=== PATIENT | female | born 1955 | race Caucasian/White ===

== ENCOUNTER → 2017-08-28 13:00 | Outpatient (CLI) | payer MEDICARE, MEDICAID, SELFPAY ==
--- NOTE | 2017-08-28 | LES_PTH ---
PATIENT: DEZ GRANDE LOC: [facility] U#:[id number] AGE/SX: 70/F ROOM: RE08/28/[address]: Dr. Alton Mallory, : 1955 BED: DIS: SPEC #: [id number] RECD: 08/28/17 15:54 STATUS: REI ELTON #: [id number] BANDAR: 08/28/17 00:[address]: Alton Mallory DEPT: SURGICAL PATHOLOGY RECD BY: Gerard Schulz Tissues: Thigh, NOS Procedures: Surgery Specimen Level IV HEADER OPERATION: 5 mm punch, nevus right thigh PRE-OP DIAGNOSIS: growing 4 mm scaly nevus right thigh, history melanoma, rule out basal cell TISSUE SUBMITTED: 5 mm punch, nevus right thigh MICROSCOPIC DIAGNOSIS Skin lesion, right thigh, punch biopsy: Verrucous keratosis. AM:bakari 09/01/17 COMMENT Case has been reviewed in consultation with Dr. Ramirez who concurs with the above diagnosis. IDC:[email or web address] MICROSCOPIC DESCRIPTION Slides are reviewed. GROSS DESCRIPTION Received is one container labeled with the patient's name and not further designated. The specimen consists of a round piece of braswell-white skin measuring 0.5 x 0.5 x 0.4 cm. The entire specimen is submitted in one cassette. / PABLO:bakari 08/29/17 TC:5 [facility]: [id number]
--- OUTSIDE RECORDS SUMMARY | 2017-10-24 11:45 | XMS RPT_ITS | Clinical Summary ---
:1955 Author Organization Formerly [facility], [facility] Address [address] [place] [address] Phone Care Team Providers Name Role Phone Vanesa [place] CNP S Unavailable Conditions or Problems Problem Name Problem Onset Status Entry Provider Comment Standard Annotate Code Date Date Description Obesity 130015446 Active Vanesa Obesity (SNOMED 09/17 09/[address]) LINING STUFFER COPD, acute 410514821 Active Kaia Ferreira Acute exacerbation (SNOMED Maury COLVIN exacerbation of CT) chronic obstructive airways disease Abdominal 552617808 Active Alton A Abdominal bloating (SNOMED 01/11 01/[address] [place] [address]) DO Iron 36669121 Active Alton A Iron deficiency deficiency (SNOMED 01/11 01/[address] [place] [address]) DO Peripheral 948453966 Active Alton A Peripheral edema (SNOMED 01/11 01/[address] [place] [address]) DO Foot pain, 33350504 Active Alton A Foot pain left (SNOMED 12/12 12/[address] [address]) DO Constipation, 827516791 Active Alton A Chronic chronic (SNOMED 11/29 11/[address] [place] [address]) DO Leg edema, 773220297 Active Vanesa Edema of lower bilateral (SNOMED 11/12 11/[address]) LINING STUFFER COPD 02534209 Active Alton A Chronic (SNOMED 10/13 10/[address] [place] [address]) DO lung disease Bipolar 04421648 Active Alton A Bipolar disorder (SNOMED 10/13 10/[address] [place] [address]) DO Patent foramen 892640352 Active Alton A Patent foramen ovale (SNOMED 10/13 10/[address] [facility] ovale CT) DO Hypertension 33597105 Active Alton A Hypertensive (SNOMED 10/13 10/[address] [place] [address]) DO Fibromyalgia 50662859 Active Alton A Fibromyositis (SNOMED 10/13 10/[address] [facility] [address]) DO Cervical 660035397 Active Alton A Cervical spondylosis (SNOMED 10/13 10/15 [facility] spondylosis without CT) DO without myelopathy myelopathy Degenerative 36774805 Active Alton A Degeneration of disc disease, (SNOMED 10/13 10/15 [facility] lumbar lumbar spine CT) DO intervertebral disc Chronic pain 825711792 Active Alton A Chronic pain syndrome (SNOMED 10/13 10/15 [facility] syndrome CT) DO JORGE 39940016 Active Vanesa Obstructive (SNOMED [place] sleep apnea CT) LINING STUFFER syndrome Tobacco abuse 01046847 Active Vanesa Tobacco (SNOMED S [place] dependence CT) LINING STUFFER syndrome Dyspnea 161087605 Active Vanesa Dyspnea (SNOMED S [place] CT) LINING STUFFER Medications Medication Instructions Start Stop Generic Name [facility] Provider Date Date BREO ELLIPTA 200-25 1 puff daily FLUTICASONE 54081151527 Vanesa MCG/INH AEPB 09/17 FUROATE-VILANTEROL S [place] LINING STUFFER INCRUSE ELLIPTA 62.5 1 puff dialy UMECLIDINIUM 44596354986 Vanesa MCG/INH AEPB 09/17 BROMIDE S [place] LINING STUFFER FERROUS SULFATE 325 One tablet by FERROUS SULFATE 82086971650 Vanesa (65 Fe) MG TABS mouth daily 08/23 S Alysia LINING STUFFER SYMBICORT 80-4.5 2 puffs bid BUDESONIDE-FORMOTER 49558464613 Vanesa MCG/ACT AERO OL FUMARATE S Alysia LINING STUFFER PROAIR HFA 108 (90 2 puffs q 4 ALBUTEROL SULFATE 63387257956 Vanesa Base) MCG/ACT AERS hrs prn Elizabeth [place] LINING STUFFER PREDNISONE 10 MG Take 4 tabs PREDNISONE 48829602453 Kaia E 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 AZITHROMYCIN 250 MG 2 tablets by AZITHROMYCIN 07652940410 Kaia E TABS mouth today [place] [employer] SALTER and then 1 tablet daily for the next 4 days NEURONTIN 400 MG One tablet by GABAPENTIN 40591728143 Alton A CAPS mouth 4 times [place] daily DO POTASSIUM CHLORIDE One tablet by POTASSIUM CHLORIDE 19989500454 Alton A OLIVIER ER 20 MEQ mouth daily 11/12 OLIVIER CR [place] CR-TABS DO FUROSEMIDE 20 MG One tablet by FUROSEMIDE 24319901348 Alton A TABS mouth daily 11/12 for swelling DO PREDNISONE 20 MG 2 tabs x 3 PREDNISONE 25545768980 Alton A TABS days, 1 tab x 12/12 12/21 [place] 3 days, 1/2 DO tab x 4 days DOCUSATE SODIUM 100 One capsule DOCUSATE SODIUM 93009857161 Alton A MG CAPS by mouth 11/29 [place] twice daily DO as needed for constipation PREDNISONE 10 MG Take 4 tabs PREDNISONE 16234843835 Vanesa TABS by mouth for 11/12 11/24 [place] 3 days, then LINING STUFFER 3 tabs by mouth for 3 days, then 2 tabs by mourth for 3 days, then 1 tab by mouth for 3 days. FUROSEMIDE 20 MG 1 tab daily FUROSEMIDE 70871935391 Vanesa TABS for 3 days 11/12 [place] LINING STUFFER AZITHROMYCIN 250 MG 2 tablets by AZITHROMYCIN 71303980336 Vanesa TABS mouth today 11/12 [place] and then 1 LINING STUFFER tablet daily for the next 4 days CYMBALTA 60 MG CPEP One tablet by DULOXETINE HCL 85992110950 Alton A mouth daily [place] DO VOLTAREN 1 % GEL 2 gr to DICLOFENAC SODIUM 62545924022 Alton A affected area three times a DO day MIRTAZAPINE 15 MG 2 tablet by MIRTAZAPINE 58582876577 Alton A TBDP mouth daily and 1 po at DO bedtime HYDROXYZINE HCL 25 One tablet by HYDROXYZINE HCL 02938256541 Alton A MG TABS mouth daily 11/09 for anxiety DO ONDANSETRON HCL 4 MG One tablet by ONDANSETRON HCL 86688314565 Alton A TABS mouth four 11/09 [facility] times daily DO as needed for nausea TRIXAICIN 0.025 % Apply to CAPSICUM OLEORESIN 82903334551 Alton A EXT CREA soles of feet 11/09 as needed for DO burning sensation daily NYSTATIN-TRIAMCINOLO apply to NYSTATIN-TRIAMCINOL 18418074030 Alton A NE OINT affected 11/09 ONE OINT [place] areas twice DO daily QUETIAPINE FUMARATE One tablet by QUETIAPINE FUMARATE 27306490467 Alton A 100 MG TABS mouth daily 11/07 DO BUPROPION HCL ER 1 tab po BUPROPION HCL 27811589924 Alton A (SR) 150 MG twice daily 10/13[place] [id number]-FVF DO HYDROCHLOROTHIAZIDE One tablet by HYDROCHLOROTHIAZIDE 06137487883 Alton A 25 MG TABS mouth daily DO QUETIAPINE FUMARATE One tablet by QUETIAPINE FUMARATE 33338761734 Alton A 50 MG TABS mouth daily 10/13 for bipolar DO disorder [facility] 325 (65 Fe) 1 tab daily FERROUS SULFATE 97934874068 Vanesa MG TABS 08/23 Elizabeth [place] CNP AZITHROMYCIN 250 MG 2 tablets by AZITHROMYCIN 48376595718 Tracie TABS mouth today 11/12 05/30 Candy Ku and then 1 BRYOLOGIST tablet daily for the next 4 days QUETIAPINE FUMARATE One tablet by QUETIAPINE FUMARATE 36988119084 Alton A 50 MG TABS mouth daily 10/13[place] for bipolar DO disorder NYSTATIN-TRIAMCINOLO apply bid NYSTATIN-TRIAMCINOL 94349884029 Dennise Cee NE OINT ONE OINT Kanu BRYOLOGIST HYDROXYZINE HCL 25 q 6 hrs prn HYDROXYZINE HCL 18270643664 Rebeca J MG TABS [place] ZOFRAN TABS 4mg q 8 hrs ONDANSETRON HCL 13179506045 Dennise Cee prn TABS Kanu BRYOLOGIST NEURONTIN 400 MG One tablet by 2015/ GABAPENTIN 90804948532 Tracie CAPS mouth 4 times 05/30 Candy Ku daily BRYOLOGIST AZITHROMYCIN 250 MG 2 tablets by 2016/ AZITHROMYCIN 02601651089 Tracie TABS mouth today 09/17 Candy Ku and then 1 BRYOLOGIST tablet daily for the next 4 days PRILOSEC 20 MG CPDR One tablet by OMEPRAZOLE 88689930774 Dennise L mouth daily Kanu BRYOLOGIST TRIAMCINOLONE apply bid TRIAMCINOLONE 99376809960 Dennise Cee ACETONIDE 0.1 % CREA ACETONIDE Kanu BRYOLOGIST AMITRIPTYLINE HCL 25 One tablet by AMITRIPTYLINE HCL 61517101605 Dennise L MG TABS mouth daily Kanu BRYOLOGIST CYMBALTA 60 MG CPEP One tablet by DULOXETINE HCL 20647077462 Dennise Cee mouth daily Kanu BRYOLOGIST SYMBICORT 80-4.5 2 puffs bid BUDESONIDE-FORMOTER 58337820488 Dennise Cee MCG/ACT AERO OL FUMARATE Kanu BRYOLOGIST PROAIR HFA 108 (90 2 puffs q 4 ALBUTEROL SULFATE 29652044400 Dennsie Cee Base) MCG/ACT AERS hrs prn Kanu BRYOLOGIST VOLTAREN 1 % GEL apply tid DICLOFENAC SODIUM 46371251405 Dennise Bobby BRYOLOGIST HYDROCODONE-ACETAMIN q 6 hrs prn HYDROCODONE-ACETAMI 30859674715 Dennise Cee OPHEN 7.5-325 MG NOPHEN Kanu BRYOLOGIST TABS HYDROXYZINE HCL 25 q 6 hrs prn HYDROXYZINE HCL 38743216293 Dennise L MG TABS Kanu BRYOLOGIST ESTRACE 0.1 MG/GM twice weekly ESTRADIOL 31019874659 Dennise GARCIAA Kanu BRYOLOGIST SYMBICORT 80-4.5 2 puffs bid BUDESONIDE-FORMOTER 36204730670 Dennise Cee MCG/ACT AERO OL FUMARATE Kanu BRYOLOGIST NEURONTIN 300 MG One tablet by GABAPENTIN 71799944309 [facility]ennise Cee [facility] SYMBICORT 80-4.5 2 puffs bid BUDESONIDE-FORMOTER 52842644477 Rebeca Rose MCG/ACT AERO OL FUMARATE [place] SYMBICORT 80-4.5 2 puffs bid 2014/ BUDESONIDE-FORMOTER 28843120754 Tracie Ferreira MCG/ACT AERO 08/15 OL FUMARATE [place] VOLTAREN 1 % GEL apply tid DICLOFENAC SODIUM 41258841471 Rebeca Ferguson VOLTAREN 1 % GEL apply tid 2014/ DICLOFENAC SODIUM 97181205806 Tracie E 08/15 [place] AMITRIPTYLINE HCL 25 One tablet by AMITRIPTYLINE HCL 51815043109 Rebeca Rose MG TABS mouth daily [place] AMITRIPTYLINE HCL 25 One tablet by 2014/ AMITRIPTYLINE HCL 21735702098 Tracie E MG TABS mouth daily 08/15 [place] MIRTAZAPINE 15 MG 2 tablet by MIRTAZAPINE 03078608348 Tracie E TBDP mouth daily [place] HYDROCODONE-ACETAMIN q 6 hrs prn HYDROCODONE-ACETAMI 77605578702 Rebeca Rose OPHEN 7.5-325 MG NOPHEN [place] TABS HYDROCODONE-ACETAMIN q 6 hrs prn 2015/ HYDROCODONE-ACETAMI 78540760414 Alton A OPHEN 7.5-325 MG 10/13 NOPHEN [place] TABS DO LISINOPRIL 10 MG One tablet by LISINOPRIL 46197973481 Tracie E TABS mouth daily [place] LISINOPRIL 10 MG One tablet by 2015/ LISINOPRIL 14411452073 Alton A TABS mouth daily 10/13 [place] DO KLONOPIN 1 MG TABS One tablet by CLONAZEPAM 76532314644 Tracie E mouth daily [place] ESTRACE 0.1 MG/GM twice weekly ESTRADIOL 78576655068 Rebeca Rose CREA [place] ONE-A-DAY JENNIFER-DOO 2 tablet by PEDIATRIC 17668279441 Tracie E GUMMIES CHEW mouth daily [id number] [place] ASPIR-81 81 MG TBEC One tablet by ASPIRIN 07326244868 Tracie E mouth daily [place] LYRICA 75 MG CAPS One tablet by PREGABALIN 41255097992 Tracie mouth three 0/13 Candy Ku times daily BRYOLOGIST Medications Administered No information available. Allergies, Adverse Reactions, Alerts Allergy Name Reaction Start Date Severity Status Provider Description CIPRO Rash Mild Active Tracie Candy Ku BRYOLOGIST CODEINE Rash Mild Active Tracie Candy SULFATE Ku BRYOLOGIST CIPRO Rash Severe No Longer Alton A Active [place] DO CODEINE Rash Critical No Longer Alton A SULFATE Active [place] DO Results Date Name Value Unit Range Flag Description Lab Report: Iron+Iron Binding Capacity IRON SATUR % 11.0 % 15.0-55.0 L iron saturation percent, serum IRON 38 ug/dL 50-170 L iron, serum TIBC 347 ug/dL 250-450 iron binding capacity, total Office Visit: COPD & JORGE SMOK ADVICE yes Smoking cessation education (procedure) Lab Report: BNP,B-Type NATRIURETIC PEPTIDE BNP PG/ML 35.3 pg/mL 0-100 B-type natriuretic peptide Lab Report: Basic Metabolic Profile (BMP) ANION GAP 6 5-15 anion gap, serum CO2 31.0 mmol/L 21.0-32.0 carbon dioxide, venous blood CHLORIDE 106 mmol/L 98-107 chloride, serum POTASSIUM 4.1 mmol/L 3.5-5.1 potassium, serum SODIUM 143 mmol/L 136-145 sodium, serum CALCIUM 8.6 mg/dL 8.5-10.1 calcium, serum BUN/CREAT 11.4 RATIO 10-20 urea nitrogen/creatin ine ratio, serum GFRAA 62 mL/min >60 Glomerular Filtration rate GFR EST 52 mL/min >60 L estimated glomerular filtration rate CREATININE 1.14 mg/dL 0.55-1.20 creatinine, serum BUN 13 mg/dL 7-18 urea nitrogen, blood GLUCOSE SER 105 mg/dL 70-110 blood glucose Office Visit: COPD MEDS REVIEW Done Documentation of current medications (procedure) ORALTOBACUSE Current Tobacco smoking status NHIS SMOK STATUS Former smoker Tobacco use [facility] Rx Refill: eRx Request for INCRUSE ELLIPTA 62.5 MCG/INH INH AEPB [id number]`INCRUSE ELLIPTA B e- scripts 62.5 MCG/INH INH AEPB```1 Inhaler``1 puff messenger dialy```0`09/17/2016`No date sent`[facility] [place] [facility] request [place]*`[id number]`INCRUSE ELLIPTA 62.5 MCG BLST W/DEV Quantity: 30 Blister Instructions: INHALE 1 (ONE) puff BY MOUTH EVERY DAY Plan of Care Type Date Detail Appointment 08:00 AM Myles Self, [address], [address], [place], [address] Pending order BWA Pending order Follow Up Appt 3 months Pending order Pulmonary Function Test - complete Pending order *CBC with Differential Pending order *NIYAH Pending order *CELIAC Celiac Disease AB [id number] Pending order *CMP Complete Metabolic Panel Pending order *CRP - C-Reative Protein Pending order *Ferritin Pending order *Lipid Profile Pending order *TSH Pending order *Sedimentation Rate (ESR) Pending order *UAC- Urinalysis, Complete w/ Micro Pending order *Brain Natriuretic Peptide BNP Pending order *BMP Pending order Echo Complete with Color Flow Pending order Follow Up Appt 3 months Pending order *IBC Iron & Total Iron Binding Capacity Pending order Pulmonary Function Test - complete Pending order Pulmonary stress testing; simple (eg, 6-minute walk) Pending order CSM Pending order Follow Up Appt 3 months Procedures Code Procedure Name Date Entry Date F/U BWA BWA FUA 3 months Follow Up Appt 3 months PFT Pulmonary Function Test - complete 04506-1 *Brain Natriuretic Peptide BNP 0667-1 *BMP [id number] Echo Complete with Color Flow FUA 3 months Follow Up Appt 3 months 84550-6 *IBC Iron & Total Iron Binding Capacity Vital Signs Date Name Value Unit Description BMI (Body Mass Index) 29.81 kg/m2 Body Mass Index [Ratio] Body Temperature 98.2 [degF] temperature E&M Body Temperature 36.8 Rashmi temperature in centigrade E&M BP Diastolic 93 mm[Hg] blood pressure, diastolic - 8462-4 BP Systolic 135 mm[Hg] blood pressure, systolic - 8480-6 BSA (Body Surface 1.75 body surface area Area) Heart Rate 67 /min pulse rate E&M - 8867-4 Height 62 [in_us] height E&M - 8302-2 Height 157.48 cm height in centimeters E&M O2 % BldC Oximetry 95 % oxygen saturation, oximetry Respiratory Rate 18 /min respiratory rate E&M - 9279-1 Weight Measured 163 [lb_av] weight E&M - 3141-9 Weight Measured 74.09 kg weight in kilograms E&M
--- OUTSIDE RECORDS SUMMARY | 2017-10-24 11:46 | XMS RPT_ITS ---
:1955 Author Organization OHIP Care Team Providers Name Role Phone MOISE GARCÍA (PT) Attending Unavailable MITUL ZACHARY C Referring Unavailable BAUMANZACHARY Attending Unavailable GOLIAS, MOISE (PT) Attending Unavailable MITUL ZACHARY C Referring Unavailable GOLIAS, MOISE (PT) Attending Unavailable MITUL ZACHARY C Referring Unavailable MOUL, MONI E Attending Unavailable GOLIAS, MOISE (PT) Attending Unavailable MITUL ZACHARY C Referring Unavailable GOLIAS, MOISE (PT) Attending Unavailable MITUL ZACHRAY C Referring Unavailable GOLIAS, MOISE (PT) Attending Unavailable MITUL ZACHARY C Referring Unavailable GOLIAS, MOISE (PT) Attending Unavailable MITUL ZACHARY C Referring Unavailable GOLIAS, MOISE (PT) Attending Unavailable MITUL ZACHARY C Referring Unavailable GOLIAS, MOISE (PT) Attending Unavailable MITUL ZACHARY C Referring Unavailable GOLIAS, MOISE (PT) Attending Unavailable MITUL, ZACHARY C Referring Unavailable ZACHARY BAUMAN C Attending Unavailable ZACHARY BAUMAN C Attending Unavailable BAUMANZACHARY C Attending Unavailable MANJEET OBRIEN Attending Unavailable MOUL, MONI E Referring Unavailable TESTRAKE, RUSTY Attending Unavailable TESTRAKE, RUSTY Referring Unavailable TESTRAKE, RUSTY Attending Unavailable TESTRAKE, RUSTY Referring Unavailable MOUL, MONI E Attending Unavailable MOUL, MONI E Referring Unavailable TESTRAKE, RUSTY Attending Unavailable TESTRAKE, RUSTY Referring Unavailable TESTRAKE, RUSTY Attending Unavailable TESTRAKE, RUSTY Referring Unavailable TESTRAKE, RUSTY Admitting Unavailable TESTRAKE, RUSTY Attending Unavailable TESTRAKE, RUSTY Referring Unavailable ZACHARY BAUMAN Admitting Unavailable ZACHARY BAUMAN Attending Unavailable YOKO PIERCE (TAX ADJUSTER) Referring Unavailable Alton Mallory Primary Care Unavailable Rebecca Perez Attending Unavailable Myles Self Attending Unavailable Alton Mallory Primary Care Unavailable ShawneeAlton moya Attending Unavailable ShawneeAlton moya Primary Care Unavailable PROBLEMS PROBLEMS DATE TYPE CONDITION / CODE ATTENDING STATUS SOURCE 10/01/2017 Active Unknown / ZACHARY BAUMAN Active [place] [facility] Unknown) [place] Repository 07/02/2017 Active Pain in right knee / NA Active [place] M25.561(ICD-10) Clinic Other [place] Repository 06/24/2017 Active Other intervertebral ZACHARY BAUMAN Active [place] disc degeneration, Clinic Other lumbar region / [place] M51.36(ICD-10) Repository 06/24/2017 Active 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 Clinic Other canal of lumbar [place] region / Repository M99.43(ICD-10) 06/24/2017 Active Radiculopathy, ZACHARY BAUMAN Active [place] lumbar region / Clinic Other M54.16(ICD-10) [place] Repository 02/04/2017 Unknown DYSPNEA, UNSPECIFIED Myles Self Active [place] / R06.00(ICD-10) [facility] Repository 02/04/2017 Unknown SYNCOPE AND COLLAPSE Rebecca Perez Active [place] / R55(ICD-10) [facility] Repository 02/04/2017 Unknown CHRONIC OBSTRUCTIVE Rebecca Perez Active [place] PULMONARY DISEASE, Community UNSPECIFIED / Hospital J44.9(ICD-10) Repository 02/04/2017 Unknown ESSENTIAL (PRIMARY) Rebecca Perez Active [place] HYPERTENSION / Community I10(ICD-10) Hospital Repository 02/04/2017 Unknown GASTRO-ESOPHAGEAL Rebecca Perez Active [facility] REFLUX DISEASE Community WITHOUT ESOPHAGITIS Hospital / K21.9(ICD-10) Repository 02/04/2017 Unknown FIBROMYALGIA / Rebecca Perez Active [place] M79.7(ICD-10) [facility] Repository 02/04/2017 Unknown ANXIETY DISORDER, Rebecca Perez Active [facility] UNSPECIFIED / Community F41.9(ICD-10) Hospital Repository 02/04/2017 Unknown MAJOR DEPRESSIVE Rebecca Perez Active [place] DISORDER, SINGLE Community EPISODE, UNSPECIFIED Hospital / F32.9(ICD-10) Repository 02/04/2017 Unknown TOBACCO USE / Rebecca Perez Active [place] Z72.0(ICD-10) Community Hospital Repository 02/04/2017 Unknown NURSING HOME (CURRENT) Rebecca Perez Active [facility] USE OF ASPIRIN / Community Z79.82(ICD-10) Hospital Repository 02/04/2017 Unknown OTHER NURSING HOME Rebecca Perez Active [facility] (CURRENT) DRUG Community THERAPY / Hospital Z79.899(ICD-10) Repository 11/13/2016 Active Lesion of plantar TESTRAKE, Active [place] nerve, right lower [facility] Main limb / [place] G57.61(ICD-10) Repository PROCEDURES PROCEDURES No Procedure Records FoundRESULTS RESULTS PROGRESS Observed: 10/22/2017 Status: COMPLETED Source: [place] 9:38 AM [facility] [place] REPOSITORY HNO ID: [id number]: Moise (Pt) RaquelSer: (none) Author Type: Physical TherapistType: Progress NotesFiled: 10/22/2017 10:17 AMNote Text: Episode Visit Count: 10Therapist That Will Oversee The Plan Of Care: Moise García PTStart of Care Date: 08/28/17Onset Date: 08/28/77Plan of Care Certification Date: 09/26/17Patient Identified by Name and Date of : YesREHABILITATION AND SPORTS THERAPYPHYSICAL THERAPY DISCONTINUANCE OF CAREPLAN OF CARE UPDATE:Assessment: Nora Dailey Adal is discontinued from Physical Therapyservices due to goal achievement and maximal benefit. and Patient/Clientdeclining further intervention.. Patient was seen for 10 visits fromStart of Care Date: 08/28/17 to 10/22/2017 and treatment included:Therapeutic exercise, Neuromuscular re-education, Patient/Family/CaregiverEducation, Body mechanics training and General conditioning. Pt has madeprogressive improvements at each re-assessment. Therex is responsible forthe improvements and she is capable of continuing with HEP independentlythat replicates the therex that was successful so far. For that reason,supervised pt is no longer necessary but she must continue with HEP andpostural correction and she understands this.Updated: 09/26/17 and 10/22/17Goals for Episode of Care: created on 08/28/17 through 10/09/17Independent in home exercises. - metPatient will decrease pain rating by 2 points to meet minimal clinicalimportant difference for numeric pain rating scale. - partially met, painis decreasedRestore pain-free lumbar ROM to WFL to allow for improved tolerance withdressing. - partially met, improvements objectively and functionallyStand / Walk without limitations, without pain/symptoms. - partially met,(pt reports improvements with standing and walking tolerance)Sleep through night without pain/symptoms. - not met, (pt denies changes)Sit without limitations, without pain/symptoms to allow for increasedsitting tolerance - partially met, improved but it depends on the dayMaintain proper sitting posture throughout session - met , increasedconfidencePatient will be able to tolerate vacuuming, carrying laundry basket,dressing and walking without increased symptoms. - partially met, ptreports improvements with carry laundry, dressing and walking.Improve Modified Oswestry Pain Questionnaire (LBP) by 6 points (12%) toindicate a Minimal Clinical Important Difference. - met (score improvedfrom 60-56-46)G CODE REPORTINGBased on clinical assessment and the score on the Oswestry AssessmentTool, the G code and corresponding severity modifiers are documentedbelow.Evaluation: 08/28/2017Current Status: Changing AND Maintaining Body Position: G8981 CL 60-79%impairedGoal Status: Changing AND Maintaining Body Position: G8982 CK 40-59%impairedProgress Report: 2017Current Status: Changing AND Maintaining Body Position: G8981 CK 40-59%impairedGoal Status: Changing AND Maintaining Body Position: G8982 CK 40-59%impairedDischarge: 10/22/2017Goal Status: Changing AND Maintaining Body Position: G8982 CK 40-59%impairedDischarge: Changing AND Maintaining Body Position: G8983 CK 40-59 % impairedPrognosis: ExcellentExcellent due to: current objective clinical presentation;positive pastresponse to therapySUBJECTIVE: . Pt reports that she still has pain with good days and baddays but that overall she is better and has been getting progressivelybetter since evaluation. She reports that the intensity and frequency ofpain is less and her tolerance for functional tasks is better.Pain Score: 5/10Pain Location: Low Back/Lumbar Spine - Right;Low Back/Lumbar Spine - LeftDescription: SharpFrequency: IntermittentPost Treatment Pain Score: No ChangePost Treatment Pain Description: (pt reported feeling generally betterbut not rated.)OBJECTIVE MEASURES WITH LEVEL OF FUNCTION:Lumbar Spine AROMLumbar Flexion: Normal;Pain during movementLumbar Extension: Normal;Pain during movementLumbar R Side-Bend: Normal;Pain during movementLumbar L Side-Bend: Normal;Pain during movementLumbar R Rotation: NormalLumbar L Rotation: NormalExcellent postural alignmentTREATMENT:Therapeutic Exercise:1: [employer] StepOne seat #9 resistance level 1 x6 minutes2: *prone lying x3 minutes3: prone on elbows x3 minutes4: *prone bilateral alt hip extension SLR 3x125: *supine LTR 2x156: *supine crunches 2x15 in very small range7: *supine bridging 2x159: *modified kneeling planks 3x30 [id number]: back extension machine 50# [id number]: paramount abdominal crunch machine 5# weight [id number]: HEP reviewed and pt instructed to continue with all previous homeexercises and she was instructed on how and when to progress strengtheningHEP. She was encouraged to continue using pain and fatigue as her guide,stopping anything that causes increased pain and coming back to this lateras able.Skilled Intervention: Patient was educated in proper exercise techniqueand purpose for exercises.Skilled judgment was provided in selection of appropriate interventions.Provided written instruction for home exercise program to facilitateproper performance and compliance.Correct performance of therapeutic exercises was facilitated with verbaland visual cuing.Billing:[facility]: Therapeutic Exercise ([id number]): 1:1 time: 45 minutes (3units: 38-52 mins)Total time: 45 minutesMoise García PT CNTHERAPY Observed: 10/22/2017 Status: COMPLETED Source: [place] 9:15 AM [facility] [place] REPOSITORY OT/PT/Speech Visit (PTWS) -------NORA GRANDE ([id number]) 1955 FDa Time Provider Department10/22/17 9:15 AM MOISE GARCÍA (PT) PTWSEncounter Number: [id number] Time Provider Department [place]10/22/2017 9:15 AM [id number]- MOISE GARCÍA (PT) PTWS [facility]Reason for [facility]: PT Discharge [752]Primary Visit Diagnosis: Chronic low back pain with sciatica, sciatica laterality unspecified, unspecified back pain laterality [M54.40, G89.29] Other Visit Diagnoses:Radiculopathy, lumbar region [M54.16] DDD (degenerative disc disease), lumbar [M51.36] Fibromyalgia [M79.7]Allergies As of Date: 10/22/2017 Noted Allergy ReactionCIPROFLOXACIN 11/04/2013 8 - GI Upset 11 - Vomiting Comments: DizzinessCODEINE 02/12/2011 4 - Hives 9 - Itching Comments: Generalized.Date Reviewed: 2017Reviewed by: Lilian Jacome Ma - Fully AssessedPrescriptions as of 10/22/2017 Sig: CLONAZEPAM 1 MG TABLET Take 1 tablet by mouth daily * ORPHENADRINE CITRATE ER 100 M* Take 1 tablet by mouth twice * PREGABALIN 150 MG CAPSULE Take 1 capsule by mouth three* BUPROPION HCL SR 150 MG TABLE* TAKE 1 TABLET BY MOUTH TWICE * LIDOCAINE 5 % TOPICAL PATCH Apply 1 Patch as directed onc* QUETIAPINE 100 MG TABLET Take 1 tablet by mouth once d* OXYCODONE- ACETAMINOPHEN 5 MG-* Take 1-2 tablets by mouth shanice* BREO ELLIPTA INHALATION Inhale as instructed once da* INCRUSE ELLIPTA INHALATION Inhale as instructed once da* TRIAMCINOLONE ACETONIDE 0.1 %* Apply 1 application to affect* NYSTATIN 100,000 UNIT/GRAM TO* apply twice daily to affected* DULOXETINE 60 MG CAPSULE,ALFRED* Take 1 capsule by mouth once * HYDROXYZINE HCL 25 MG TABLET Take 1 tablet by mouth every * CAPSAICIN 0.025 % TOPICAL CRE* Apply to soles of feet as nee* COMPOUNDED PRESCRIPTION DuaL Gabapentin 6% diclofenac* HYDROCHLOROTHIAZIDE 25 MG TAB* Take 1 tablet by mouth once d* CPAP CPAP 11 cmH2O, suitable mask,* PEDIATRIC MULTIVITAMIN GUMMY * Take 2 tablets by mouth once * ONDANSETRON HCL 4 MG TABLET Take 1 tablet by mouth every * ASPIRIN 81 MG TABLET,DELAYED * Take 81 mg by mouth once sylvia* DICLOFENAC 1 % TOPICAL GEL Apply 2 g to affected area th* ESTRADIOL 0.01% (0.1 MG/GRAM )* Use vaginally twice weekly ON*Progress Notes:Moise García PT 10/22/2017 10:17 AM SignedEpisode Visit Count: 10Therapist That Will Oversee The Plan Of Care: Moise García PTStart of Care Date: Onset Date: 08/28/77Plan of Care Certification Date: 09/26/17Patient Identified by Name and Date of : YesREHABILITATION AND SPORTS THERAPYPHYSICAL THERAPY DISCONTINUANCE OF CAREPLAN OF CARE UPDATE:Assessment: Nora [place] is discontinued from Physical Therapy services dueto goal achievement and maximal benefit. and Patient/Client declining furtherintervention.. Patient was seen for 10 visits from Start of Care Date: 08/28/17to 10/22/2017 and treatment included: Therapeutic exercise, Neuromuscularre-education, Patient/Family/Caregiver Education, Body mechanics training andGeneral conditioning. Pt has made progressive improvements at eachre- assessment. Therex is responsible for the improvements and she is capable ofcontinuing with HEP independently that replicates the therex that was successfulso far. For that reason, supervised pt is no longer necessary but she mustcontinue with HEP and postural correction and she understands this.Updated: 09/26/17 and 10/22/17Goals for Episode of Care: created on 08/28/17 through Independent in home exercises. - metPatient will decrease pain rating by 2 points to meet minimal clinical importantdifference for numeric pain rating scale. - partially met, pain is decreasedRestore pain-free lumbar ROM to WFL to allow for improved tolerance withdressing. - partially met , improvements objectively and functionallyStand / Walk without limitations, without pain/ symptoms. - partially met, (ptreports improvements with standing and walking tolerance)Sleep through night without pain/symptoms. - not met, (pt denies changes)Sit without limitations, without pain/symptoms to allow for increased sittingtolerance - partially met, improved but it depends on the dayMaintain proper sitting posture throughout session - met, increased confidencePatient will be able to tolerate vacuuming, carrying laundry basket, dressingand walking without increased symptoms. - partially met , pt reports improvementswith carry laundry, dressing and walking.Improve Modified Oswestry Pain Questionnaire (LBP) by 6 points (12%) to indicatea Minimal Clinical Important Difference. - met (score improved from 60-56-46)G CODE REPORTINGBased on clinical assessment and the score on the Oswestry Assessment Tool, theG code and corresponding severity modifiers are documented below.Evaluation : 08/28/2017Current Status: Changing AND Maintaining Body Position: G8981 CL 60-79% impairedGoal Status: Changing AND Maintaining Body Position: G8982 CK 40-59% impairedProgress Report: 2017Current Status: Changing AND Maintaining Body Position: G8981 CK 40-59% impairedGoal Status: Changing AND Maintaining Body Position: G8982 CK 40-59% impairedDischarge: 10/22/2017Goal Status: Changing AND Maintaining Body Position: G8982 CK 40-59% impairedDischarge: Changing AND Maintaining Body Position: G8983 CK 40-59% impairedPrognosis: ExcellentExcellent due to: current objective clinical presentation;positive past responseto therapySUBJECTIVE: . Pt reports that she still has pain with good days and bad daysbut that overall she is better and has been getting progressively better sinceevaluation. She reports that the intensity and frequency of pain is less andher tolerance for functional tasks is better.Pain Score: 5/10Pain Location: Low Back/Lumbar Spine - Right;Low Back/Lumbar Spine - LeftDescription: SharpFrequency: IntermittentPost Treatment Pain Score: No ChangePost Treatment Pain Description: (pt reported feeling generally better but notrated.)OBJECTIVE MEASURES WITH LEVEL OF FUNCTION:Lumbar Spine AROMLumbar Flexion: Normal;Pain during movementLumbar Extension: Normal;Pain during movementLumbar R Side-Bend: Normal;Pain during movementLumbar L Side-Bend: Normal;Pain during movementLumbar R Rotation: NormalLumbar L Rotation: NormalExcellent postural alignmentTREATMENT: Therapeutic Exercise:1: [employer] StepOne seat #9 resistance level 1 x6 minutes2: *prone lying x3 minutes3 : prone on elbows x3 minutes4: *prone bilateral alt hip extension SLR 3x125: *supine LTR 2x156: * supine crunches 2x15 in very small range7: *supine bridging 2x159: *modified kneeling planks 3x30 [id number]: back extension machine 50# [id number]: paramount abdominal crunch machine 5# weight [id number]: HEP reviewed and pt instructed to continue with all previous home exercisesand she was instructed on how and when to progress strengthening HEP. She wasencouraged to continue using pain and fatigue as her guide, stopping anythingthat causes increased pain and coming back to this later as able.Skilled Intervention: Patient was educated in proper exercise technique andpurpose for exercises.Skilled judgment was provided in selection of appropriate interventions.Provided written instruction for home exercise program to facilitate properperformance and compliance.Correct performance of therapeutic exercises was facilitated with verbal andvisual cuing.Billing:[facility] : Therapeutic Exercise ([id number]): 1:1 time: 45 minutes (3 units:38-52 mins)Total time: 45 minutesBrent Raquel PT --- PROGRESS Observed: 10/22/2017 Status: COMPLETED Source: [place] 8:27 AM [facility] [place] REPOSITORY HNO ID: [id number]: Moni Chavira: (none) Author Type: PhysicianType: Progress NotesFiled: 10/22/2017 10:20 AMNote Text:[facility] Sleep Disorders CenterFollow-up/Established patient visitReason for Visit at [facility] : Follow up On CPAP. Time Out: 8:45 Time In: 8:27For this visit , a total izyh-bv-frqf time with the patient comprised 17minutes, with at least 50 % of that time devoted to kwbv-ik-lmsk counselingand coordination of care, with especial emphasis placed on answering thepatient?s and/or family?s questions in a form that they can understandand appreciate. Medications, allergies, hx Reviewed: yesDate of last visit: december 2016 Insurance: [facility] Location: osterPsychological/Psychiatric Developments:No newMedical and Neurological Developments:COPD, Degen Disk disk disease, Stable.Insomnia: ingtermittent wakes at nightRLS: noOther: naSLEEP-WAKE SCHEDULEBedtime: 10 to 11SLEEP LATENCY: mostly ok.Wake after Sleep Onset wakes up, brbs, than back to bed.Wake time: usu around, without an alarm.On weekends, she maintains the same sleep schedule.Sleep Quality: only gets 4 hours. Then wakes for 1 hour, then drifts up,up every 2 hours. Not rested in the morning.She does not take naps.Average total sleep time (in a 24 hour period): 5-6 hour.Obstructive Sleep Apnea Issues: Most Recent Apnea- Hypopnea Index: 67 PAP Pressure Setting(s) Auto 5-20 DME Company: [facility] Mask Type: ffm Mask Issues: Had some allergties to the mask interfqace, narcisa invented a work aroudn Download Report: Na Self- Reported Compliance: All night Benefit: yesALLERGIESAllergen Reactions- Ciprofloxacin GI Upset, Vomiting Dizziness- Codeine Hives, Itching Generalized.CURRENT MEDICATIONS:orphenadrine ER (NORFLEX) 100 mg tablet Take 1 tablet by mouth twicedaily.pregabalin (LYRICA) 150 mg capsule Take 1 capsule by mouth three timesdaily for 30 days.clonazePAM (KLONOPIN) 1 mg tablet Take 1 tablet by mouth daily at bedtime.buPROPion SR (ZYBAN SR; WELLBUTRIN SR) 150 mg 12 hr tablet TAKE 1 TABLETBY MOUTH TWICE DAILYlidocaine (LIDODERM) 5 % Apply 1 Patch as directed once daily. TO AFFECTEDAREA. REMOVE AFTER 12 HOURS.QUEtiapine (SEROQUEL) 100 mg tablet Take 1 tablet by mouth once daily. DrStutzmanoxyCODONE-acetaminophen (PERCOCET) 5-325 mg tablet Take 1-2 tablets bymouth every 6 hours as needed for Pain.FLUTICASONE/VILANTEROL (BREO ELLIPTA INHALATION) Inhale as instructedonce daily.UMECLIDINIUM BROMIDE (INCRUSE ELLIPTA INHALATION) Inhale as instructedonce daily.triamcinolone acetonide (KENALOG) 0.1 % cream Apply 1 application toaffected area twice daily.nystatin (MYCOSTATIN) cream apply twice daily to affected area / skin rash.DULoxetine (CYMBALTA) 60 mg capsule Take 1 capsule by mouth once daily.hydrOXYzine HCl (ATARAX) 25 mg tablet Take 1 tablet by mouth every 6 hoursas needed.capsaicin (ZOSTRIX) 0.025 % cream Apply to soles of feet as needed forburning sensation.COMPOUNDED PRESCRIPTION DuaL Gabapentin 6% diclofenac 3% (M) cream .Apply 2-4 pumps to affected area (bilateral hips) 3-4 times per day.hydrochlorothiazide (HYDRODIURIL, ESIDRIX) 25 mg tablet Take 1 tablet bymouth once daily.CPAP CPAP 11 cmH2O, suitable mask, tubing, humidifier, filters. Lifetimesupplies. Dx: 327.23 - Obstructive sleep apneapediatric multivitamin gummy without iron (JENNIFER DOO) chew chewabletablet Take 2 tablets by mouth once daily.ondansetron (ZOFRAN) 4 mg tablet Take 1 tablet by mouth every 8 hours asneeded.aspirin, enteric coated (ASPIRIN, ENTERIC COATED) 81 mg EC tablet Take 81mg by mouth once daily.Diclofenac Sodium (VOLTAREN) 1 % gel Apply 2 g to affected area threetimes daily.estradiol ( ESTRACE) 0.01 % (0.1 mg/gram) vaginal cream Use vaginally twiceweekly ONE GRAMVital signs:BP 112/80 (BP Site: Left Arm, BP Position: Sitting, BP Cuff Size: RegularAdult) Pulse 67 Resp 16 Wt 56.6 kg (124 lb 12.8 oz) BMI 22.83kg/h5KTVLBP STATUS General appearance: normal weight, informal attire. Grooming good Orientation: Ox3 Memory: Grossly intact Kinetics: normal Eye Contact: good Demeanor interactive with just a tinge of edginess, spunk. Speech: Husky, coherent. Thought Stream logical, goal directed Thought Content about continuing to use pap and get treatment foranxiety. Mood: is ok Affect: Lopez, some flexibility Suicidal Ideation: no Homocidal Ideation: No Psychosis no Insight good Judgment goodENT : naAbdomen: overweightNeuro: Gait and station na, Strength grossly normal in all extremities.Coordination grossly intact. No tremors noted.Impression: Obstructive sleep apnea - Severe compliant and benefiting from treatmenAnxiety NOSCOPD,FibromyalgiaDepressionCase Formulation / Shirley (may include pt's hopes , fears, expectations,concerns):Pt generally doing well on current regimen. She is working through somePT for her back, but of late has been out and doing chores actively.Actions taken: Motivational Interviewing aspects taken Exploring generalsymptom structutre. OARRS Aspect: OARRS website checked andvalidated. All prescriptions have been APPROPRIATELY filled. Nosuspicious activity was identified.- 10/22/2017 by Moni Gaston, RASHEEDenewed the clonazepam.Encouraged pt to convey to Dr. Cross that It would be quite acceptableif he took over the clonazepam prescribing.Plan:Continue present regimen.Follow up yearly for JORGE issues, pt can follow with Dr. Mallory [facility] sleep meds. .Moni Gaston MD CNOV Observed: 10/22/2017 Status: COMPLETED Source: [place] 8:20 AM [facility] [place] REPOSITORY Office Visit (NEMJOSE) ---------NORA GRANDE ([id number]) 1955 FDate Time Provider Department10/22/17 8:20 AM MONI GASTON During your visit today, we recorded the following information about you: Pulse Respiration Blood pressure Weight 67/minute 16/minute 112/80 56.6 kgMoni Gaston MD 10/22/2017 10:20 AM Signed[facility] Sleep Disorders CenterFollow-up/Established patient visitReason for Visit at [facility] : Follow up On CPAP. Time Out: 8:45 Time In: 8:27For this visit, a total ulpe-ej-dzus time with the patient comprised 17minutes, with at least 50% of that time devoted to face-to- face counseling andcoordination of care, with especial emphasis placed on answering the patient ?sand/or family?s questions in a form that they can understand and appreciate. Medications, allergies, hx Reviewed: yesDate of last visit: december 2016 Insurance: [employer] Location: [place]Psychological/Psychiatric Developments:No newMedical and Neurological Developments:COPD, Degen Disk disk disease, Stable.Insomnia: ingtermittent wakes at nightRLS: noOther: naSLEEP-WAKE SCHEDULEBedtime: 10 to 11SLEEP LATENCY: mostly ok.Wake after Sleep Onset wakes up, brbs, than back to bed.Wake time: usu around, without an alarm.On weekends, she maintains the same sleep schedule.Sleep Quality: only gets 4 hours. Then wakes for 1 hour, then drifts up, upevery 2 hours. Not rested in the morning.She does not take naps.Average total sleep time (in a 24 hour period): 5-6 hour.Obstructive Sleep Apnea Issues: Most Recent Apnea-Hypopnea Index: 67 PAP Pressure Setting(s) Auto 5-20 DME Company: [facility] Mask Type: ffm Mask Issues : Had some allergties to the mask interfqace, but sheinvented a work aroudn Download Report: Na Self-Reported Compliance: All night Benefit: yesALLERGIESAllergen Reactions- Ciprofloxacin GI Upset, Vomiting Dizziness- Codeine Hives, Itching Generalized.CURRENT MEDICATIONS :orphenadrine ER (NORFLEX) 100 mg tablet Take 1 tablet by mouth twice daily.pregabalin (LYRICA) 150 mg capsule Take 1 capsule by mouth three times dailyfor 30 days.clonazePAM (KLONOPIN) 1 mg tablet Take 1 tablet by mouth daily at bedtime.buPROPion SR (ZYBAN SR; WELLBUTRIN SR) 150 mg 12 hr tablet TAKE 1 TABLET BYMOUTH TWICE DAILYlidocaine (LIDODERM) 5 % Apply 1 Patch as directed once daily. TO AFFECTEDAREA. REMOVE AFTER 12 HOURS.QUEtiapine (SEROQUEL) 100 mg tablet Take 1 tablet by mouth once daily. DrStutzmanoxyCODONE-acetaminophen (PERCOCET) 5-325 mg tablet Take 1-2 tablets by mouthevery 6 hours as needed for Pain.FLUTICASONE/VILANTEROL (BREO ELLIPTA INHALATION) Inhale as instructed oncedaily.UMECLIDINIUM BROMIDE (INCRUSE ELLIPTA INHALATION) Inhale as instructed oncedaily.triamcinolone acetonide (KENALOG) 0.1 % cream Apply 1 application to affectedarea twice daily.nystatin (MYCOSTATIN) cream apply twice daily to affected area/ skin rash.DULoxetine (CYMBALTA) 60 mg capsule Take 1 capsule by mouth once daily.hydrOXYzine HCl (ATARAX) 25 mg tablet Take 1 tablet by mouth every 6 hours asneeded.capsaicin (ZOSTRIX) 0.025 % cream Apply to soles of feet as needed for burningsensation.COMPOUNDED PRESCRIPTION DuaL Gabapentin 6% diclofenac 3% (M) cream . Apply 2-4pumps to affected area (bilateral hips) 3-4 times per day.hydrochlorothiazide ( HYDRODIURIL, ESIDRIX) 25 mg tablet Take 1 tablet by mouthonce daily.CPAP CPAP 11 cmH2O, suitable mask, tubing, humidifier, filters. Lifetimesupplies. Dx: 327.23 - Obstructive sleep apneapediatric multivitamin gummy without iron (JENNIFER DOO) chew chewable tabletTake 2 tablets by mouth once daily.ondansetron (ZOFRAN ) 4 mg tablet Take 1 tablet by mouth every 8 hours asneeded.aspirin, enteric coated (ASPIRIN, ENTERIC COATED) 81 mg EC tablet Take 81 mg bymouth once daily.Diclofenac Sodium (VOLTAREN) 1 % gel Apply 2 g to affected area three timesdaily.estradiol (ESTRACE) 0.01 % (0.1 mg/gram) vaginal cream Use vaginally twiceweekly ONE GRAMVital signs:BP 112/80 (BP Site: Left Arm, BP Position: Sitting, BP Cuff Size: RegularAdult) Pulse 67 Resp 16 Wt 56.6 kg (124 lb 12.8 oz) BMI 22.83 kg/s0XRIYRC STATUS General appearance: normal weight, informal attire. Grooming good Orientation: Ox3 Memory: Grossly intact Kinetics: normal Eye Contact: good Demeanor interactive with just a tinge of edginess, spunk. Speech : Husky, coherent. Thought Stream logical, goal directed Thought Content about continuing to use pap and get treatment for anxiety. Mood: is ok Affect: Lopez, some flexibility Suicidal Ideation: no Homocidal Ideation: No Psychosis no Insight good Judgment goodENT : naAbdomen: overweightNeuro: Gait and station na, Strength grossly normal in all extremities.Coordination grossly intact. No tremors noted.Impression:Obstructive sleep apnea - Severe compliant and benefiting from treatmenAnxiety NOSCOPD, FibromyalgiaDepressionCase Formulation / Shirley (may include pt's hopes, fears, expectations,concerns):Pt generally doing well on current regimen. She is working through some PT forher back, but of late has been out and doing chores actively.Actions taken: Motivational Interviewing aspects taken Exploring general symptomstructutre. OARRS Aspect: OARRS website checked and validated. Allprescriptions have been APPROPRIATELY filled. No suspicious activity wasidentified.- 10/22/2017 by Robert Harperwed the clonazepam.Encouraged pt to convey to Dr. Cross that It would be quite acceptable ifhe took over the clonazepam prescribing.Plan:Continue present regimen.Follow up yearly for JORGE issues, pt can follow with Dr. Mallory for psych andsleep meds. .RASHEED Harpereferring Provider: SELF [200]Allergies As of Date: 10/22/2017 Noted Allergy ReactionCIPROFLOXACIN 11/04/2013 8 - GI Upset 11 - Vomiting Comments: DizzinessCODEINE 02/12/2011 4 - Hives 9 - Itching Comments: Generalized.Date Reviewed: 2017Reviewed by: Lilian Jacome Ma - Fully AssessedReason for Visit: Established Patient [175] Refill Request [94]Primary Visit Diagnosis:Psychophysiological insomnia [F51.04] Other Visit Diagnoses:JORGE ( obstructive sleep apnea) RDI 67 CMS AHI 1.3 [G47.33] Fibromyalgia [M79.7] Chronic obstructive pulmonary disease, unspecified COPD type (HCC) [J44.9] Essential hypertension [I10] Other depression [F32.89]Order(s):clonazePAM (KLONOPIN) 1 mg tabletTake 1 tablet by mouth daily at bedtime for 90 days.Disp: 30 tabletRfl: 2Prescriptions as of 10/22/2017 Sig: CLONAZEPAM 1 MG TABLET Take 1 tablet by mouth daily * ORPHENADRINE CITRATE ER 100 M* Take 1 tablet by mouth twice * PREGABALIN 150 MG CAPSULE Take 1 capsule by mouth three* BUPROPION HCL SR 150 MG TABLE* TAKE 1 TABLET BY MOUTH TWICE * LIDOCAINE 5 % TOPICAL PATCH Apply 1 Patch as directed onc* QUETIAPINE 100 MG TABLET Take 1 tablet by mouth once d* OXYCODONE-ACETAMINOPHEN 5 MG-* Take 1-2 tablets by mouth shanice* BREO ELLIPTA INHALATION Inhale as instructed once da * INCRUSE ELLIPTA INHALATION Inhale as instructed once da* TRIAMCINOLONE ACETONIDE 0.1 % * Apply 1 application to affect* NYSTATIN 100,000 UNIT/GRAM TO* apply twice daily to affected* DULOXETINE 60 MG CAPSULE,ALFRED* Take 1 capsule by mouth once * HYDROXYZINE HCL 25 MG TABLET Take 1 tablet by mouth every * CAPSAICIN 0.025 % TOPICAL CRE* Apply to soles of feet as nee* COMPOUNDED PRESCRIPTION DuaL Gabapentin 6% diclofenac* HYDROCHLOROTHIAZIDE 25 MG TAB* Take 1 tablet by mouth once d* CPAP CPAP 11 cmH2O, suitable mask,* PEDIATRIC MULTIVITAMIN GUMMY * Take 2 tablets by mouth once * ONDANSETRON HCL 4 MG TABLET Take 1 tablet by mouth every * ASPIRIN 81 MG TABLET,DELAYED * Take 81 mg by mouth once sylvia* DICLOFENAC 1 % TOPICAL GEL Apply 2 g to affected area th* ESTRADIOL 0.01% (0.1 MG/GRAM)* Use vaginally twice weekly ON*Problem List As Of Date 10/22/2017 Noted Resolved Routine general medical examination at a [facility]*INVALID FOR*12/22/2012 Priority: A Class: Chronic More... Routine gynecological examination [Z01.419] INVALID FOR*12/22/2012 Priority: B Class: Chronic Fibromyalgia [M79.7] INVALID FOR* More... 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 Encounter for screening colonoscopy [Z12.11] INVALID FOR* HTN (hypertension) [I10] INVALID FOR* More... Psychophysiological insomnia [F51.04] INVALID FOR* Depression [F32.9] INVALID FOR* JORGE (obstructive sleep apnea) RDI 67 CMS AHI *INVALID FOR* Chronic low back pain with sciatica [M54.40, G8*INVALID FOR* DDD (degenerative disc disease), lumbar [M51.36]INVALID FOR* Cervical spondylosis without myelopathy [M47.81*INVALID FOR* Cervicalgia [M54.2] INVALID FOR* Abnormal echocardiogram [R93.1] INVALID FOR* More... 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 Radiculopathy, lumbar region [M54.16] INVALID FOR* More...Prescriptions ordered this encounter Disp Refills Start End CLONAZEPAM 1 MG TABLET 30 t* 2 10/22/2017 01/20/2018 Class: Print RX Route: ORAL Sig: Take 1 tablet by mouth daily at bedtime for 90 days.Medications Discontinued During This Encounter clonazePAM (KLONOPIN) 1 mg tablet 30 t* 1 07/28/2017 10/22/2017 Class: Call Rx Route: ORAL Sig: Take 1 tablet by mouth daily at bedtime. Disc: Reason for discontinue is not on file.Disposition: Return in about 1 year (around 10/22/2018).Follow-up and Disposition History RecordedEncounter Number: [id number] Status:Closed by MD MONI GASTON on 10/22/17 PROGRESS Observed: 10/15/2017 Status: COMPLETED Source: [place] 9:38 AM [facility] [place] REPOSITORY HNO ID: [id number]: Moise (Pt) RaquelService: (none) Author Type: Physical TherapistType: Progress NotesFiled: 10/15/2017 10:18 AMNote Text:Episode Visit Count: 9Therapist That Will Oversee The Plan Of Care: Moise García PTStart of Care Date: 08/28/17Onset Date: 08/28/77Plan of Care Certification Date: 09/26/17Patient Identified by Name and Date of : YesREHABILITATION AND SPORTS THERAPYPHYSICAL THERAPY TREATMENT NOTEASSESSMENT: Nora Grande demonstrated difficulty with household floorcleaning tasks and improvements in carrying laundry basket and pain ingeneral. The patient will continue to benefit from continued skilledphysical therapy for stretching, strengthening, body mechanics instructionand pain management prn.PLAN FOR NEXT VISIT:review HEP, progress HEP to tolerance, continue supervised therex andprogress to tolerance. Continue PNE prn.SUBJECTIVE:Pt reports that overall she is feeling the same as last visit but bettercompared to evaluation. She reports that her back pain is increased todaysecondary to washing windows yesterday but that she has been trying tostay active. She feels that she has learned a lot from the PNE cards andeducation provided on chronic pain.Pain Score: 10Pain Location: Low Back/Lumbar Spine - Left;Low Back/Lumbar Spine - RightDescription: (mild but increased from washing windows yesterday)Frequency: IntermittentPost Treatment Pain Score: 10/25Post Treatment Pain Description: (decreased and better)OBJECTIVE MEASURES WITH LEVEL OF FUNCTION:Posture / AlignmentPosture: Forward head;Rounded shoulders;Thoracic kyphosis (improvedoverall)TREATMENT:Therapeutic Exercise:1: Upright bike seat #2 resistance level 3 x6 minutes2: *prone lying x3 minutes3: prone on elbows x3 minutes4: * prone bilateral alt hip extension SLR 3x125: *supine LTR 2x156: *supine crunches 2x15 in very small range7: *supine bridging 2x158: treadmill walking 2.0 mph x5 minutes with supervision and verbal cues.9: modified kneeling planks 3x30 [id number]: seated in front of Hoist machine layla overhead pulldowns with elbowsheld in extension 2 plates 3x12 emphasis on posture.11: back extension machine 50# [id number]: paramount abdominal crunch machine 5# weight [id number]: HEP reviewed and pt instructed that she should only be completing homeexercises listed that she has on her handouts.Skilled Intervention: Patient was educated in proper exercise techniqueand purpose for exercises.Skilled judgment was provided in selection of appropriate interventions.Correct performance of therapeutic exercises was facilitated with verbaland visual cuing.Billing:[facility]: Therapeutic Exercise ([id number]): 1:1 time: 50 minutes (3units: 38-52 mins)Total time: 50 minutesMoise García PT CNTHERAPY Observed: 10/15/2017 Status: COMPLETED Source: [place] 9:15 AM [facility] REPOSITORY OT/PT/Speech Visit (PTWS) -------NORA GRANDE ([id number]) 1955 FDate Time Provider Department10/15/17 9:15 AM MOISE GARCÍA (PT) PTWSEncounter Number : [id number] Time Provider Department [place]10/15/2017 9:15 AM [id number], BRENT (PT) [facility]: Physical Therapy [503]Primary Visit Diagnosis:Chronic low back pain with sciatica, sciatica laterality unspecified, unspecified back pain laterality [M54.40, G89.29] Other Visit Diagnoses: Radiculopathy, lumbar region [M54.16] DDD (degenerative disc disease), lumbar [M51.36] Fibromyalgia [M79.7]Allergies As of Date: 10/15/2017 Noted Allergy ReactionCIPROFLOXACIN 11/04/2013 8 - GI Upset 11 - Vomiting Comments: DizzinessCODEINE 02/12/2011 4 - Hives 9 - Itching Comments: Generalized.Date Reviewed: 10/01/2017Reviewed by: Lilian Jacome Ma - Fully AssessedPrescriptions as of Sig: ORPHENADRINE CITRATE ER 100 M* Take 1 tablet by mouth twice * PREGABALIN 150 MG CAPSULE Take 1 capsule by mouth three* CLONAZEPAM 1 MG TABLET Take 1 tablet by mouth daily * BUPROPION HCL SR 150 MG TABLE* TAKE 1 TABLET BY MOUTH TWICE * LIDOCAINE 5 % TOPICAL PATCH Apply 1 Patch as directed onc* QUETIAPINE 100 MG TABLET Take 1 tablet by mouth once d* OXYCODONE-ACETAMINOPHEN 5 MG-* Take 1-2 tablets by mouth shanice* BREO ELLIPTA INHALATION Inhale as instructed once da* INCRUSE ELLIPTA INHALATION Inhale as instructed once da* TRIAMCINOLONE ACETONIDE 0.1 %* Apply 1 application to affect* NYSTATIN 100, 000 UNIT/GRAM TO* apply twice daily to affected* DULOXETINE 60 MG CAPSULE,ALFRED* Take 1 capsule by mouth once * HYDROXYZINE HCL 25 MG TABLET Take 1 tablet by mouth every * CAPSAICIN 0.025 % TOPICAL CRE* Apply to soles of feet as nee* COMPOUNDED PRESCRIPTION DuaL Gabapentin 6% diclofenac* HYDROCHLOROTHIAZIDE 25 MG TAB* Take 1 tablet by mouth once d* CPAP CPAP 11 cmH2O, suitable mask,* PEDIATRIC MULTIVITAMIN GUMMY * Take 2 tablets by mouth once * ONDANSETRON HCL 4 MG TABLET Take 1 tablet by mouth every * ASPIRIN 81 MG TABLET,DELAYED * Take 81 mg by mouth once sylvia* DICLOFENAC 1 % TOPICAL GEL Apply 2 g to affected area th* ESTRADIOL 0.01% (0.1 MG/GRAM)* Use vaginally twice weekly ON*Progress Notes: Moise García, PT 10/15/2017 10:18 AM SignedEpisode Visit Count: 9Therapist That Will Oversee The Plan Of Care: Moise García PTStart of Care Date: 08/28/17Onset Date: 08/28/77Plan of Care Certification Date: 09/26/17Patient Identified by Name and Date of : YesREHABILITATION AND SPORTS THERAPYPHYSICAL THERAPY TREATMENT NOTEASSESSMENT: Nora Grande demonstrated difficulty with household floorcleaning tasks and improvements in carrying laundry basket and pain in general.The patient will continue to benefit from continued skilled physical therapy forstretching, strengthening, body mechanics instruction and pain management prn.PLAN FOR NEXT VISIT:review HEP, progress HEP to tolerance, continue supervised therex and progressto tolerance. Continue PNE prn.SUBJECTIVE:Pt reports that overall she is feeling the same as last visit but bettercompared to evaluation. She reports that her back pain is increased todaysecondary to washing windows yesterday but that she has been trying to stayactive. She feels that she has learned a lot from the PNE cards and educationprovided on chronic pain.Pain Score: 5/10Pain Location: Low Back/ Lumbar Spine - Left;Low Back/Lumbar Spine - RightDescription: (mild but increased from washing windows yesterday)Frequency: IntermittentPost Treatment Pain Score: 3/10Post Treatment Pain Description: ( decreased and better)OBJECTIVE MEASURES WITH LEVEL OF FUNCTION:Posture / AlignmentPosture: Forward head;Rounded shoulders;Thoracic kyphosis (improved overall)TREATMENT:Therapeutic Exercise:1 : Upright bike seat #2 resistance level 3 x6 minutes2: *prone lying x3 minutes3: prone on elbows x3 minutes4: *prone bilateral alt hip extension SLR 3x125: *supine LTR 2x156: *supine crunches 2x15 in very small range7: *supine bridging 2x158: treadmill walking 2.0 mph x5 minutes with supervision and verbal cues.9: modified kneeling planks 3x30 [id number]: seated in front of Hoist machine layla overhead pulldowns with elbows heldin extension 2 plates 3x12 emphasis on posture.11: back extension machine 50# [id number]: paramount abdominal crunch machine 5# weight [id number]: HEP reviewed and pt instructed that she should only be completing homeexercises listed that she has on her handouts.Skilled Intervention: Patient was educated in proper exercise technique andpurpose for exercises.Skilled judgment was provided in selection of appropriate interventions.Correct performance of therapeutic exercises was facilitated with verbal andvisual cuing.Billing:[facility]: Therapeutic Exercise ( [id number]): 1:1 time: 50 minutes (3 units:38-52 mins)Total time: 50 minutesMoise García PT --- PROGRESS Observed: 10/13/2017 Status: COMPLETED Source: [place] 3:08 PM [facility] [place] REPOSITORY HNO ID: [id number]: Moise (Pt) [place]: (none) Author Type: Physical TherapistType: Progress NotesFiled: 10/13/2017 3:35 PMNote Text:Episode Visit Count: 8Therapist That Will Oversee The Plan Of Care: BERTRAM Buttstart of Care Date: 08/28/17Onset Date: 08/28/77Plan of Care Certification Date: 09/26/17Patient Identified by Name and Date of : YesREHABILITATION AND SPORTS THERAPYPHYSICAL THERAPY TREATMENT NOTEASSESSMENT: Nora Grande demonstrated difficulty with householdcleaning chores and laundry and improvements in exercise tolerance andwalking. The patient will continue to benefit from continued skilledphysical therapy for stretching, strengthening, body mechanics instructionand PNE prn.PLAN FOR NEXT VISIT:review HEP, progress HEP to tolerance, continue supervised therex andprogress to tolerance. Continue PNE prn.SUBJECTIVE:Pt reports that overall she is feeling approximately the same. Shereports that today is a good day but that pain continues to fluctuate.She denies any negative effects following last session.Pain Score: 5/10Pain Location: Low Back/Lumbar Spine - Right;Low Back/Lumbar Spine - LeftDescription: (its there and I can feel it) Frequency: IntermittentOBJECTIVE MEASURES WITH LEVEL OF FUNCTION:Posture / AlignmentPosture: Forward head;Rounded shoulders;Thoracic kyphosis (but improvedoverall)TREATMENT:Therapeutic Exercise:1: SciFit StepOne seat #9 resistance level 1 x6 minutes2: *prone lying x3 minutes3: prone on elbows x3 minutes4: * prone bilateral alt hip extension SLR 2x125: *supine LTR 2x126: *supine crunches 2x15 in very small range7: *supine bridging 2x158: treadmill walking 1.0 mph x5 minutes with supervision and verbal cues.9: modified kneeling planks 3x20 [id number]: seated in front of Hoist machine layla overhead pulldowns with elbowsheld in extension 2 plates 2x10 emphasis on posture.11: back extension machine 40# [id number]: paramount abdominal crunch machine 5# weight [id number]: HEP reviewed and pt instructed that she should only be completing homeexercises listed that she has on her handouts.Skilled Intervention: Patient was educated in proper exercise techniqueand purpose for exercises.Skilled judgment was provided in selection of appropriate interventions.Correct performance of therapeutic exercises was facilitated with verbaland visual cuing.Billing:[facility]: Therapeutic Exercise ([id number]): 1:1 time: 45 minutes (3units: 38-52 mins)Total time: 45 minutesMoise García PT CNTHERAPY Observed: 10/13/2017 Status: COMPLETED Source: [place] 2:45 PM [facility] [place] REPOSITORY OT/PT/Speech Visit (PTWS) -------NORA GRANDE ([id number]) 1955 FDa Time Provider Department10/13/17 2:45 PM MOISE GARCÍA (PT) PTWSEncounter Number : [id number] Time Provider Department [place]10/13/2017 2:45 PM [id number], BRENT (PT) [facility]: Physical Therapy [503]Primary Visit Diagnosis:Chronic low back pain with sciatica, sciatica laterality unspecified, unspecified back pain laterality [M54.40, G89.29] Other Visit Diagnoses: Radiculopathy, lumbar region [M54.16] DDD (degenerative disc disease), lumbar [M51.36] Fibromyalgia [M79.7]Allergies As of Date: 10/13/2017 Noted Allergy ReactionCIPROFLOXACIN 11/04/2013 8 - GI Upset 11 - Vomiting Comments: DizzinessCODEINE 02/12/2011 4 - Hives 9 - Itching Comments: Generalized.Date Reviewed: 10/01/2017Reviewed by: Lilian Jacome Ma - Fully AssessedPrescriptions as of Sig: ORPHENADRINE CITRATE ER 100 M* Take 1 tablet by mouth twice * PREGABALIN 150 MG CAPSULE Take 1 capsule by mouth three* CLONAZEPAM 1 MG TABLET Take 1 tablet by mouth daily * BUPROPION HCL SR 150 MG TABLE* TAKE 1 TABLET BY MOUTH TWICE * LIDOCAINE 5 % TOPICAL PATCH Apply 1 Patch as directed onc* QUETIAPINE 100 MG TABLET Take 1 tablet by mouth once d* OXYCODONE-ACETAMINOPHEN 5 MG-* Take 1-2 tablets by mouth shanice* BREO ELLIPTA INHALATION Inhale as instructed once da* INCRUSE ELLIPTA INHALATION Inhale as instructed once da* TRIAMCINOLONE ACETONIDE 0.1 %* Apply 1 application to affect* NYSTATIN 100, 000 UNIT/GRAM TO* apply twice daily to affected* DULOXETINE 60 MG CAPSULE,ALFRED* Take 1 capsule by mouth once * HYDROXYZINE HCL 25 MG TABLET Take 1 tablet by mouth every * CAPSAICIN 0.025 % TOPICAL CRE* Apply to soles of feet as nee* COMPOUNDED PRESCRIPTION DuaL Gabapentin 6% diclofenac* HYDROCHLOROTHIAZIDE 25 MG TAB* Take 1 tablet by mouth once d* CPAP CPAP 11 cmH2O, suitable mask,* PEDIATRIC MULTIVITAMIN GUMMY * Take 2 tablets by mouth once * ONDANSETRON HCL 4 MG TABLET Take 1 tablet by mouth every * ASPIRIN 81 MG TABLET,DELAYED * Take 81 mg by mouth once sylvia* DICLOFENAC 1 % TOPICAL GEL Apply 2 g to affected area th* ESTRADIOL 0.01% (0.1 MG/GRAM)* Use vaginally twice weekly ON*Progress Notes: Moise García, PT 10/13/2017 3:35 PM SignedEpisode Visit Count: 8Therapist That Will Oversee The Plan Of Care: Moise García PTStart of Care Date: 08/28/17Onset Date: 08/28/77Plan of Care Certification Date: 09/26/17Patient Identified by Name and Date of : YesREHABILITATION AND SPORTS THERAPYPHYSICAL THERAPY TREATMENT NOTEASSESSMENT: Nora Dailey Adal demonstrated difficulty with household cleaningchores and laundry and improvements in exercise tolerance and walking. Thepatient will continue to benefit from continued skilled physical therapy forstretching, strengthening, body mechanics instruction and PNE prn.PLAN FOR NEXT VISIT:review HEP, progress HEP to tolerance, continue supervised therex and progressto tolerance. Continue PNE prn.SUBJECTIVE:Pt reports that overall she is feeling approximately the same. She reports thattoday is a good day but that pain continues to fluctuate. She denies anynegative effects following last session.Pain Score: 5 /10Pain Location: Low Back/Lumbar Spine - Right;Low Back/Lumbar Spine - LeftDescription: (its there and I can feel it)Frequency: IntermittentOBJECTIVE MEASURES WITH LEVEL OF FUNCTION:Posture / AlignmentPosture: Forward head;Rounded shoulders;Thoracic kyphosis (but improved overall) TREATMENT:Therapeutic Exercise:1: BCM SolutionsFit StepOne seat #9 resistance level 1 x6 minutes2: *prone lying x3 minutes3: prone on elbows x3 minutes4: *prone bilateral alt hip extension SLR 2x125: *supine LTR 2x126: *supine crunches 2x15 in very small range7: *supine bridging 2x158: treadmill walking 1.0 mph x5 minutes with supervision and verbal cues.9: modified kneeling planks 3x20 [id number]: seated in front of Hoist machine layla overhead pulldowns with elbows heldin extension 2 plates 2x10 emphasis on posture.11: back extension machine 40# [id number]: paramount abdominal crunch machine 5# weight [id number]: HEP reviewed and pt instructed that she should only be completing homeexercises listed that she has on her handouts.Skilled Intervention: Patient was educated in proper exercise technique andpurpose for exercises.Skilled judgment was provided in selection of appropriate interventions.Correct performance of therapeutic exercises was facilitated with verbal andvisual cuing.Billing: [facility]: Therapeutic Exercise ([id number]): 1:1 time: 45 minutes (3 units:38-52 mins)Total time: 45 minutesMoise García PT PROGRESS Observed: 10/08/2017 Status: COMPLETED Source: [place] 9:38 AM [facility] [place] REPOSITORY HNO ID: [id number]: Moise (Pt) [place]: (none) Author Type: Physical TherapistType: Progress NotesFiled: 10/08/2017 10:09 AMNote Text:Episode Visit Count: 7Therapist That Will Oversee The Plan Of Care: BERTRAM Buttstart of Care Date: 08/28/17Onset Date: 08/28/77Plan of Care Certification Date: 09/26/17Patient Identified by Name and Date of : YesREHABILITATION AND SPORTS THERAPYPHYSICAL THERAPY TREATMENT NOTEASSESSMENT: Nora Grande demonstrated difficulty with householdchores such as vacuuming and improvements in exercise tolerance. Thepatient will continue to benefit from continued skilled physical therapyfor stretching, strengthening, body mechanics instruction, posturalcorrection, pain management, exercise progression and PNE prn.PLAN FOR NEXT VISIT:review HEP, progress HEP to tolerance, continue supervised therex andprogress to tolerance. Continue PNE prn.SUBJECTIVE:Pt reports increased L hip pain today that she attributes to recentweather changes. She reports compliance with HEP 2-3x day most days. Shereports that she did not complete HEP yesterday because she was notfeeling well. Pt reports that her pain continues to fluctuate but thatoverall she is feeling better.Pain Score: 7/10Pain Location: Low Back/Lumbar Spine - Right; Low Back/Lumbar Spine -Left;Hip - LeftDescription: SharpFrequency: IntermittentPost Treatment Pain Score: 5/10Post Treatment Pain Description: (pain is better and decreased)OBJECTIVE MEASURES WITH LEVEL OF FUNCTION:Posture / AlignmentPosture: Forward head;Rounded shouldersExercise tolerance is unchanged despite her report of increased paintoday.TREATMENT:Therapeutic Exercise:1: [employer]CM [employer] StepOne seat #9 resistance level 1 x6 minutes2: *prone lying x3 minutes3: prone on elbows x3 minutes4: *prone bilateral alt hip extension SLR 2x105: *supine LTR 2x106: * supine isometric abdominal exercise via shoulder extension with 2second holds 2x107: * supine bridging 2x108: *supine crunches 2x12 in very small range9: modified kneeling planks 3x15 : seated in front of Hoist machine layla overhead pulldowns with elbowsheld in extension 2 plates 2x10 emphasis on posture.11: back extension machine 30# [id number]: paramount abdominal crunch machine 5# weight [id number]: HEP reviewed and pt instructed that she should only be completing homeexercises listed above that she has on her handouts.Skilled Intervention: Patient was educated in proper exercise techniqueand purpose for exercises.Reviewed and educated patient on additions/ changes for home exerciseprogram as above (*)Skilled judgment was provided in selection of appropriate interventions.Provided written instruction for home exercise program to facilitateproper performance and compliance.Correct performance of therapeutic exercises was facilitated with verbaland visual cuing.Billing:[facility]: Therapeutic Exercise ([id number]): 1:1 time: 45 minutes (3units: 38-52 mins)Total time: 45 minutesMoise García PT CNTHERAPY Observed: 10/08/2017 Status: COMPLETED Source: [place] 9:15 AM [facility] [place] REPOSITORY OT/PT/Speech Visit (PTWS) -------NORA GRANDE ([id number]) 1955 FDate Time Provider Department10/08/17 9:15 AM MOISE GARCÍA (PT) PTWSEncounter Number : [id number] Time Provider Department [place]10/08/2017 9:15 AM [id number], BRENT (PT) [facility] Physical Therapy [503]Primary Visit Diagnosis:Chronic low back pain with sciatica, sciatica laterality unspecified, unspecified back pain laterality [M54.40, G89.29] Other Visit Diagnoses: Radiculopathy, lumbar region [M54.16] DDD (degenerative disc disease), lumbar [M51.36] Fibromyalgia [M79.7]Allergies As of Date: 10/08/2017 Noted Allergy ReactionCIPROFLOXACIN 11/04/2013 8 - GI Upset 11 - Vomiting Comments: DizzinessCODEINE 02/12/2011 4 - Hives 9 - Itching Comments: Generalized.Date Reviewed: 10/01/2017Reviewed by: Lilian Jacome Ma - Fully AssessedPrescriptions as of Sig: ORPHENADRINE CITRATE ER 100 M* Take 1 tablet by mouth twice * PREGABALIN 150 MG CAPSULE Take 1 capsule by mouth three* CLONAZEPAM 1 MG TABLET Take 1 tablet by mouth daily * BUPROPION HCL SR 150 MG TABLE* TAKE 1 TABLET BY MOUTH TWICE * LIDOCAINE 5 % TOPICAL PATCH Apply 1 Patch as directed onc* QUETIAPINE 100 MG TABLET Take 1 tablet by mouth once d* OXYCODONE-ACETAMINOPHEN 5 MG-* Take 1-2 tablets by mouth shanice* BREO ELLIPTA INHALATION Inhale as instructed once da* INCRUSE ELLIPTA INHALATION Inhale as instructed once da* TRIAMCINOLONE ACETONIDE 0.1 %* Apply 1 application to affect* NYSTATIN 100, 000 UNIT/GRAM TO* apply twice daily to affected* DULOXETINE 60 MG CAPSULE,ALFRED* Take 1 capsule by mouth once * HYDROXYZINE HCL 25 MG TABLET Take 1 tablet by mouth every * CAPSAICIN 0.025 % TOPICAL CRE* Apply to soles of feet as nee* COMPOUNDED PRESCRIPTION DuaL Gabapentin 6% diclofenac* HYDROCHLOROTHIAZIDE 25 MG TAB* Take 1 tablet by mouth once d* CPAP CPAP 11 cmH2O, suitable mask,* PEDIATRIC MULTIVITAMIN GUMMY * Take 2 tablets by mouth once * ONDANSETRON HCL 4 MG TABLET Take 1 tablet by mouth every * ASPIRIN 81 MG TABLET,DELAYED * Take 81 mg by mouth once sylvia* DICLOFENAC 1 % TOPICAL GEL Apply 2 g to affected area th* ESTRADIOL 0.01% (0.1 MG/GRAM)* Use vaginally twice weekly ON*Progress Notes: Moise García, PT 10/08/2017 10:09 AM SignedEpisode Visit Count: 7Therapist That Will Oversee The Plan Of Care: Moise García PTStart of Care Date: 08/28/17Onset Date: 08/28/77Plan of Care Certification Date: 09/26/17Patient Identified by Name and Date of : YesREHABILITATION AND SPORTS THERAPYPHYSICAL THERAPY TREATMENT NOTEASSESSMENT: 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 The patient will continueto benefit from continued skilled physical therapy for stretching,strengthening, body mechanics instruction, postural correction, pain management,exercise progression and PNE prn.PLAN FOR NEXT VISIT:review HEP, progress HEP to tolerance, continue supervised therex and progressto tolerance. Continue PNE prn.SUBJECTIVE:Pt reports increased L hip pain today that she attributes to recent weatherchanges. She reports compliance with HEP 2-3x day most days. She reports thatshe did not complete HEP yesterday because she was not feeling well. Pt reportsthat her pain continues to fluctuate but that overall she is feeling better.Pain Score: 7/10Pain Location: Low Back/Lumbar Spine - Right; Low Back/Lumbar Spine - Left;Hip -LeftDescription: SharpFrequency: IntermittentPost Treatment Pain Score: 5/10Post Treatment Pain Description: (pain is better and decreased)OBJECTIVE MEASURES WITH LEVEL OF FUNCTION:Posture / AlignmentPosture: Forward head;Rounded shouldersExercise tolerance is unchanged despite her report of increased pain today.TREATMENT:Therapeutic Exercise:1: [employer] StepOne seat #9 resistance level 1 x6 minutes2: *prone lying x3 minutes3: prone on elbows x3 minutes4: *prone bilateral alt hip extension SLR 2x105: *supine LTR 2x106: *supine isometric abdominal exercise via shoulder extension with 2 secondholds 2x107: *supine bridging 2x108: *supine crunches 2x12 in very small range9: modified kneeling planks 3x15 [id number]: seated in front of Hoist machine layla overhead pulldowns with elbows heldin extension 2 plates 2x10 emphasis on posture.11: back extension machine 30# [id number]: paramount abdominal crunch machine 5# weight [id number]: HEP reviewed and pt instructed that she should only be completing homeexercises listed above that she has on her handouts.Skilled Intervention: Patient was educated in proper exercise technique andpurpose for exercises.Reviewed and educated patient on additions/changes for home exercise program asabove (*)Skilled judgment was provided in selection of appropriate interventions.Provided written instruction for home exercise program to facilitate properperformance and compliance.Correct performance of therapeutic exercises was facilitated with verbal andvisual cuing.Billing:[facility]: Therapeutic Exercise ([id number]): 1:1 time: 45 minutes (3 units:38-52 mins)Total time: 45 minutesMoise García PT --- PROGRESS Observed: 10/03/2017 Status: COMPLETED Source: [place] 9:24 AM [facility] [place] REPOSITORY HNO ID: [id number]: Moise (Pt) [place]: (none) Author Type: Physical TherapistType: Progress NotesFiled: 10/03/2017 10:01 AMNote Text:Episode Visit Count: 6Therapist That Will Oversee The Plan Of Care: BERTRAM Buttstart of Care Date: 08/28/17Onset Date: 08/28/77Plan of Care Certification Date: 09/26/17Patient Identified by Name and Date of : YesREHABILITATION AND SPORTS THERAPYPHYSICAL THERAPY TREATMENT NOTEASSESSMENT: Nora Grande demonstrated difficulty with vacuuming andcarrying laundry basket up and down and improvements in pain sincestarting therex just no improvements with functional tasks. The patientwill continue to benefit from continued skilled physical therapy forstretching, strengthening, body mechanics instruction, PNE prn, painmanagement and HEP progression.PLAN FOR NEXT VISIT:review HEP, progress HEP to tolerance, continue supervised therex andprogress to tolerance. Continue PNE prn.SUBJECTIVE:Pt reports that overall she is better and doesn't hurt as bad. Shereports compliance with HEP 3x day with good results. She attributes theimprovements to the exercise. She denies any increased pain from therexcompleted last session. She continues to feel that the PT is beneficial.Pain Score: 0/10Pain Location: Low Back/Lumbar Spine - Right;Low Back/Lumbar Spine - LeftDescription: (no pain currently)Frequency: IntermittentPost Treatment Pain Score: 0/10Post Treatment Pain Description: ( no change and still pain-free)OBJECTIVE MEASURES WITH LEVEL OF FUNCTION:Posture / AlignmentPosture: Forward head;Rounded shoulders;Thoracic kyphosisExcellent exercise tolerance today.TREATMENT:Therapeutic Exercise:1: [employer]CM [employer] StepOne seat #9 resistance level 1 x6 minutes2: *prone lying x3 minutes3: prone on elbows x3 minutes4: prone bilateral alt hip extension SLR 2x105: *supine LTR 2x106: *supine isometric abdominal exercise via shoulder extension with 2second holds 2x127: supine bridging 2x108 : supine crunches 2x12 in very small range9: HEP reviewed and pt instructed that she should only be completing homeexercises listed above that she has on her handouts.10: treadmill walking 1.0 mph x5 minutes with close supervision and verbalcues.11: back extension machine 20# [id number]: paramount abdominal crunch machine no weight [id number] Intervention: Patient was educated in proper exercise techniqueand purpose for exercises.Skilled judgment was provided in selection of appropriate interventions.Correct performance of therapeutic exercises was facilitated with verbaland visual cuing.Billing:[facility]: Therapeutic Exercise ([id number]): 1:1 time: 45 minutes (3units: 38-52 mins)Total time: 45 minutesBreradha García PT CNTHERAPY Observed: 10/03/2017 Status: COMPLETED Source: [place] 9:15 AM [facility] REPOS[facility]ORY OT/PT/Speech Visit (PTWS) -------NORA GRANDE ([id number]) 1955 FDate Time Provider Department10/03/17 9:15 AM MOISE GARCÍA (PT) PTWSEncounter Number : [id number] Time Provider Department [place]10/03/2017 9:15 AM [id number], BRENT (PT) [facility] Physical Therapy [503]Primary Visit Diagnosis:Chronic low back pain with sciatica, sciatica laterality unspecified, unspecified back pain laterality [M54.40, G89.29] Other Visit Diagnoses: Radiculopathy, lumbar region [M54.16] DDD (degenerative disc disease), lumbar [M51.36] Fibromyalgia [M79.7]Allergies As of Date: 10/03/2017 Noted Allergy ReactionCIPROFLOXACIN 11/04/2013 8 - GI Upset 11 - Vomiting Comments: DizzinessCODEINE 02/12/2011 4 - Hives 9 - Itching Comments: Generalized.Date Reviewed: 10/01/2017Reviewed by: Lilian Jacome Ma - Fully AssessedPrescriptions as of Sig: ORPHENADRINE CITRATE ER 100 M* Take 1 tablet by mouth twice * PREGABALIN 150 MG CAPSULE Take 1 capsule by mouth three* CLONAZEPAM 1 MG TABLET Take 1 tablet by mouth daily * BUPROPION HCL SR 150 MG TABLE* TAKE 1 TABLET BY MOUTH TWICE * LIDOCAINE 5 % TOPICAL PATCH Apply 1 Patch as directed onc* QUETIAPINE 100 MG TABLET Take 1 tablet by mouth once d* OXYCODONE-ACETAMINOPHEN 5 MG-* Take 1-2 tablets by mouth shanice* BREO ELLIPTA INHALATION Inhale as instructed once da* INCRUSE ELLIPTA INHALATION Inhale as instructed once da* TRIAMCINOLONE ACETONIDE 0.1 %* Apply 1 application to affect* NYSTATIN 100, 000 UNIT/GRAM TO* apply twice daily to affected* DULOXETINE 60 MG CAPSULE,ALFRED* Take 1 capsule by mouth once * HYDROXYZINE HCL 25 MG TABLET Take 1 tablet by mouth every * CAPSAICIN 0.025 % TOPICAL CRE* Apply to soles of feet as nee* COMPOUNDED PRESCRIPTION DuaL Gabapentin 6% diclofenac* HYDROCHLOROTHIAZIDE 25 MG TAB* Take 1 tablet by mouth once d* CPAP CPAP 11 cmH2O, suitable mask,* PEDIATRIC MULTIVITAMIN GUMMY * Take 2 tablets by mouth once * ONDANSETRON HCL 4 MG TABLET Take 1 tablet by mouth every * ASPIRIN 81 MG TABLET,DELAYED * Take 81 mg by mouth once sylvia* DICLOFENAC 1 % TOPICAL GEL Apply 2 g to affected area th* ESTRADIOL 0.01% (0.1 MG/GRAM)* Use vaginally twice weekly ON*Progress Notes: Moise García, PT 10/03/2017 10:01 AM SignedEpisode Visit Count: 6Therapist That Will Oversee The Plan Of Care: Moise García PTStart of Care Date: 08/28/17Onset Date: 08/28/77Plan of Care Certification Date: 09/26/17Patient Identified by Name and Date of : YesREHABILITATION AND SPORTS THERAPYPHYSICAL THERAPY TREATMENT NOTEASSESSMENT: Nora Dailey Adal demonstrated difficulty with vacuuming andcarrying laundry basket up and down and improvements in pain since startingtherex just no improvements with functional tasks. The patient will continue tobenefit from continued skilled physical therapy for stretching, strengthening,body mechanics instruction, PNE prn, pain management and HEP progression.PLAN FOR NEXT VISIT:review HEP, progress HEP to tolerance, continue supervised therex and progressto tolerance. Continue PNE prn.SUBJECTIVE:Pt reports that overall she is better and doesn't hurt as bad. She reportscompliance with HEP 3x day with good results. She attributes the improvementsto the exercise. She denies any increased pain from therex completed lastsession. She continues to feel that the PT is beneficial.Pain Score: 0/10Pain Location: Low Back/Lumbar Spine - Right;Low Back/Lumbar Spine - LeftDescription: (no pain currently)Frequency: IntermittentPost Treatment Pain Score: 0/10Post Treatment Pain Description: (no change and still pain-free)OBJECTIVE MEASURES WITH LEVEL OF FUNCTION:Posture / AlignmentPosture: Forward head; Rounded shoulders;Thoracic kyphosisExcellent exercise tolerance today.TREATMENT:Therapeutic Exercise:1: [employer] StepOne seat #9 resistance level 1 x6 minutes2: *prone lying x3 minutes3: prone on elbows x3 minutes4: prone bilateral alt hip extension SLR 2x105: *supine LTR 2x106: *supine isometric abdominal exercise via shoulder extension with 2 secondholds 2x127: supine bridging 2x108: supine crunches 2x12 in very small range9: HEP reviewed and pt instructed that she should only be completing homeexercises listed above that she has on her handouts.10: treadmill walking 1.0 mph x5 minutes with close supervision and verbal cues.11: back extension machine 20# [id number]: paramount abdominal crunch machine no weight [id number] Intervention: Patient was educated in proper exercise technique andpurpose for exercises.Skilled judgment was provided in selection of appropriate interventions.Correct performance of therapeutic exercises was facilitated with verbal andvisual cuing.Billing:[facility] : Therapeutic Exercise ([id number]): 1:1 time: 45 minutes (3 units:38-52 mins)Total time: 45 minutesMoise García PT --- PROGRESS Observed: 10/01/2017 Status: COMPLETED Source: [place] 10:04 AM [facility] [place] REPOSITORY HNO ID: [id number]: Moise (Pt) [place]: (none) Author Type: Physical TherapistType: Progress NotesFiled: 10/01/2017 1:04 PMNote Text:Episode Visit Count: 5Therapist That Will Oversee The Plan Of Care: BERTRAM Buttstart of Care Date: 08/28/17Onset Date: 08/28/77Plan of Care Certification Date: 09/26/17Patient Identified by Name and Date of : YesREHABILITATION AND SPORTS THERAPYPHYSICAL THERAPY TREATMENT NOTEASSESSMENT: Nora Grande demonstrated difficulty with certainmovements and functional tasks and improvements in exercise tolerance andpain in general today. The patient will continue to benefit fromcontinued skilled physical therapy for body mechanics instruction, stretching, strengthening and PNE prn.PLAN FOR NEXT VISIT:review HEP, progress HEP to tolerance, continue supervised therex andprogress to tolerance. Continue PNE prn.SUBJECTIVE:Pt reports that overall she is feeling much better today with decreasedpain and increased exercise tolerance. She reports being seen at 's office earlier today. She reports that the current pain managementplan is to continue with current medication regimen and also continue withPT as scheduled.Pain Score: 10/25Pain Location: Low Back/Lumbar Spine - Right;Low Back/Lumbar Spine - LeftDescription : AchingFrequency: IntermittentPost Treatment Pain Score: No ChangePost Treatment Pain Description: (fatigue but no increase in pain)OBJECTIVE MEASURES WITH LEVEL OF FUNCTION:Posture / AlignmentPosture: Forward head;Rounded shouldersTREATMENT:Therapeutic Exercise:1: [employer] StepOne seat #9 resistance level 1 x6 minutes2: *prone lying x3 minutes4: *supine isometric abdominal exercise via shoulder extension with 2second holds 2x125: *supine LTR 2x157: supine bridging 2x128: supine crunches 2x12 in very small range9: HEP reviewed and pt instructed that she should only be completing homeexercises listed above that she has on her handouts.10: treadmill walking 1.0 mph x5 minutes with close supervision and verbalcues.11: back extension machine 20# [id number]: paramount abdominal crunch machine no weight [id number] Intervention: Patient was educated in proper exercise techniqueand purpose for exercises.Skilled judgment was provided in selection of appropriate interventions.Correct performance of therapeutic exercises was facilitated with verbaland visual cuing.Billing:[facility]: Therapeutic Exercise ([id number]): 1:1 time: 40 minutes (3units: 38-52 mins)Total time: 40 minutesMoise García PT CNTHERAPY Observed: 10/01/2017 Status: COMPLETED Source: [place] 9:15 AM [facility] [place] REPOSITORY OT/PT/Speech Visit (PTWS) -------NORA GRANDE ([id number]) 1955 FDate Time Provider Department10/01/17 9:15 AM MOISE GARCÍA (PT) PTWSEncounter Number : [id number] Time Provider Department [place]10/01/2017 9:15 AM [id number], BRENT (PT) [facility]: Physical Therapy [503]Primary Visit Diagnosis:Chronic low back pain with sciatica, sciatica laterality unspecified, unspecified back pain laterality [M54.40, G89.29] Other Visit Diagnoses: Radiculopathy, lumbar region [M54.16] DDD (degenerative disc disease), lumbar [M51.36] Fibromyalgia [M79.7]Allergies As of Date: 10/01/2017 Noted Allergy ReactionCIPROFLOXACIN 11/04/2013 8 - GI Upset 11 - Vomiting Comments: DizzinessCODEINE 02/12/2011 4 - Hives 9 - Itching Comments: Generalized.Date Reviewed: 10/01/2017Reviewed by: Lilian Jacome Ma - Fully AssessedPrescriptions as of Sig: ORPHENADRINE CITRATE ER 100 M* Take 1 tablet by mouth twice * PREGABALIN 150 MG CAPSULE Take 1 capsule by mouth three* CLONAZEPAM 1 MG TABLET Take 1 tablet by mouth daily * BUPROPION HCL SR 150 MG TABLE* TAKE 1 TABLET BY MOUTH TWICE * LIDOCAINE 5 % TOPICAL PATCH Apply 1 Patch as directed onc* QUETIAPINE 100 MG TABLET Take 1 tablet by mouth once d* OXYCODONE-ACETAMINOPHEN 5 MG-* Take 1-2 tablets by mouth shanice* BREO ELLIPTA INHALATION Inhale as instructed once da* INCRUSE ELLIPTA INHALATION Inhale as instructed once da* TRIAMCINOLONE ACETONIDE 0.1 %* Apply 1 application to affect* NYSTATIN 100, 000 UNIT/GRAM TO* apply twice daily to affected* DULOXETINE 60 MG CAPSULE,ALFRED* Take 1 capsule by mouth once * HYDROXYZINE HCL 25 MG TABLET Take 1 tablet by mouth every * CAPSAICIN 0.025 % TOPICAL CRE* Apply to soles of feet as nee* COMPOUNDED PRESCRIPTION DuaL Gabapentin 6% diclofenac* HYDROCHLOROTHIAZIDE 25 MG TAB* Take 1 tablet by mouth once d* CPAP CPAP 11 cmH2O, suitable mask,* PEDIATRIC MULTIVITAMIN GUMMY * Take 2 tablets by mouth once * ONDANSETRON HCL 4 MG TABLET Take 1 tablet by mouth every * ASPIRIN 81 MG TABLET,DELAYED * Take 81 mg by mouth once sylvia* DICLOFENAC 1 % TOPICAL GEL Apply 2 g to affected area th* ESTRADIOL 0.01% (0.1 MG/GRAM)* Use vaginally twice weekly ON*Progress Notes: Moise García, PT 10/01/2017 1:04 PM SignedEpisode Visit Count: 5Therapist That Will Oversee The Plan Of Care: Moise García PTStart of Care Date: 08/28/17Onset Date: 08/28/77Plan of Care Certification Date: 09/26/17Patient Identified by Name and Date of : YesREHABILITATION AND SPORTS THERAPYPHYSICAL THERAPY TREATMENT NOTEASSESSMENT: Nora Dailey Adal demonstrated difficulty with certain movements andfunctional tasks and improvements in exercise tolerance and pain in generaltoday. The patient will continue to benefit from continued skilled physicaltherapy for body mechanics instruction, stretching, strengthening and PNE prn.PLAN FOR NEXT VISIT:review HEP, progress HEP to tolerance, continue supervised therex and progressto tolerance. Continue PNE prn.SUBJECTIVE:Pt reports that overall she is feeling much better today with decreased pain andincreased exercise tolerance. She reports being seen at Dr. Bauman's officeearlier today. She reports that the current pain management plan is to continuewith current medication regimen and also continue with PT as scheduled.Pain Score: 3/10Pain Location: Low Back/Lumbar Spine - Right;Low Back/Lumbar Spine - LeftDescription : AchingFrequency: IntermittentPost Treatment Pain Score: No ChangePost Treatment Pain Description : (fatigue but no increase in pain)OBJECTIVE MEASURES WITH LEVEL OF FUNCTION:Posture / AlignmentPosture: Forward head;Rounded shouldersTREATMENT:Therapeutic Exercise:1: [employer] StepOne seat #9 resistance level 1 x6 minutes2: *prone lying x3 minutes4: *supine isometric abdominal exercise via shoulder extension with 2 secondholds 2x125: *supine LTR 2x157: supine bridging 2x128: supine crunches 2x12 in very small range9: HEP reviewed and pt instructed that she should only be completing homeexercises listed above that she has on her handouts.10: treadmill walking 1.0 mph x5 minutes with close supervision and verbal cues.11: back extension machine 20# [id number]: paramount abdominal crunch machine no weight [id number] Intervention: Patient was educated in proper exercise technique andpurpose for exercises.Skilled judgment was provided in selection of appropriate interventions.Correct performance of therapeutic exercises was facilitated with verbal andvisual cuing.Billing: [facility]: Therapeutic Exercise ([id number]): 1:1 time: 40 minutes (3 units:38-52 mins)Total time: 40 minutesBrent Golias, PT PROGRESS Observed: 10/01/2017 Status: COMPLETED Source: [place] 7:53 AM [facility] [place] REPOSITORY HNO ID: [id number]: Zachary Moran: (none)Author Type: PhysicianType: Progress NotesFiled: 10/01/2017 9:59 AMNote Text:AU PAIN MANAGEMENT OFFICE NOTEDATE: October 01, 2017Chief Complaint: chronic lower back SUBJECTIVE:[facility]. [facility] regarding chronic lower back pain. She states thatsince the last visit symptoms have been worsening. The pain is located inthe low back lumbar region and radiates down the posterior leg. The painis described as penetrating, pressure, radiating, shooting and stabbingand is rated as 8 on a scale of 0-10. The patient Reports morningstiffness and leg pain. Symptoms interfere with physical activity, work,sexual relations, walking, sleeping, sitting, bathing, driving, cooking,household cleaning, reaching for shelves and lifting. The pain isexacerbated by sitting, standing, forward flexion and lifting. The pain ismitigated by unable to pinpoint positions/factors that are mitigating.The patient is overall improved with the injections by 0%.She is currently receiving medications through the [facility]. She is not havingdifficulty with her [facility] medications. The medications are partiallyeffective. The patient states the last dose of .Lyrica/ pregabalin was taken at October 01, 2017.REVIEW OF SYSTEMS:Constitutional:(-) Fever(-) Night Sweats(-) Weight Gain(-) Weight Loss(+) Fatigue Cardiovascular:(-) Chest Pain(-) Palpitations(+) Lightheadedness(-) Swelling of Ankles(-) Hx Heart SurgeryRespiratory:(-) Shortness of Breath(-) Cough(-) Wheezing(-) Snoring Gastrointestinal:(-) Incontinence(-) Abdominal Pain(-) Diarrhea(-) Constipation(-) Nausea/Vomiting(-) Heart BurnEndocrine:(-) Thyroid Disorder(-) Diabetes Hematologic:(-) Prolonged Bleeding(+) Easy BruisingGenitourinary:(-) Incontinence(-) Frequency(-) Urinary Urgency Skin:(- ) Rashes(-) Itching(-) Other LesionsNeurologic:(-) Headache(+) Double Vision(-) Confusion(- ) Paralysis Psychiatric:(+) Depression(+) Anxiety(-) Delusions(-) Hallucinations( -) Personal History of Alcohol or Substance Abuse(-) Family History of Alcohol or Substance Abuse PAST MEDICAL HISTORYDiagnosis Date- Abnormal echocardiogram 10/18/2016 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 (11/2015)- Abnormal Pap smear- COPD (chronic obstructive pulmonary disease) (HCC)- Fibromyalgia- Other and unspecified ovarian cyst Ovarian cyst- Patent foramen ovale 07/19/2014- Skin cancer- Tobacco use- Tobacco use disorder, continuous 07/19/2014- Urinary tract infectionPAST SURGICAL HISTORYProcedure Laterality Date- CARPAL TUNNEL 1980s bilateral- COLONOSCOP W/ OR W/O [facility] SPEC 11/23/14 Colonoscopy- PAST SURGICAL HISTORY OF Bilateral foot surgeries-neuromas- TOTAL ABDOM HYSTERECTOMY 1980s Hysterectomy, SGAE Cysts on ovaries,ALLERGIESAllergen Reactions- Ciprofloxacin GI Upset, Vomiting Dizziness- Codeine Hives, Itching Generalized.Current Outpatient Prescriptions:orphenadrine ER (NORFLEX) 100 mg tablet Take 1 tablet by mouth twicedaily.pregabalin (LYRICA) 150 mg capsule Take 1 capsule by mouth three timesdaily for 30 days.clonazePAM (KLONOPIN) 1 mg tablet Take 1 tablet by mouth daily at bedtime.buPROPion SR (ZYBAN SR; WELLBUTRIN SR) 150 mg 12 hr tablet TAKE 1 TABLETBY MOUTH TWICE DAILYlidocaine (LIDODERM) 5 % Apply 1 Patch as directed once daily. TO AFFECTEDAREA. REMOVE AFTER 12 HOURS.QUEtiapine (SEROQUEL) 100 mg tablet Take 1 tablet by mouth once daily. DrStutzmanFLUTICASONE/VILANTEROL (BREO ELLIPTA INHALATION) Inhale as instructedonce daily.UMECLIDINIUM BROMIDE (INCRUSE ELLIPTA INHALATION) Inhale as instructedonce daily.triamcinolone acetonide (KENALOG) 0.1 % cream Apply 1 application toaffected area twice daily.nystatin (MYCOSTATIN) cream apply twice daily to affected area/ skin rash.hydrOXYzine HCl (ATARAX) 25 mg tablet Take 1 tablet by mouth every 6 hoursas needed.capsaicin (ZOSTRIX) 0.025 % cream Apply to soles of feet as needed forburning sensation.COMPOUNDED PRESCRIPTION DuaL Gabapentin 6% diclofenac 3% ( M) cream .Apply 2-4 pumps to affected area (bilateral hips) 3-4 times per day.hydrochlorothiazide (HYDRODIURIL, ESIDRIX) 25 mg tablet Take 1 tablet bymouth once daily.CPAP CPAP 11 cmH2O, suitable mask, tubing, humidifier, filters. Lifetimesupplies. Dx: 327.23 - Obstructive sleep apneapediatric multivitamin gummy without iron (JENNIFER DOO) chew chewabletablet Take 2 tablets by mouth once daily.aspirin, enteric coated (ASPIRIN, ENTERIC COATED) 81 mg EC tablet Take 81mg by mouth once daily.Diclofenac Sodium (VOLTAREN) 1 % gel Apply 2 g to affected area threetimes daily.estradiol (ESTRACE) 0.01 % (0.1 mg/gram) vaginal cream Use vaginally twiceweekly ONE GRAMoxyCODONE-acetaminophen (PERCOCET) 5-325 mg tablet Take 1-2 tablets bymouth every 6 hours as needed for Pain.DULoxetine (CYMBALTA) 60 mg capsule Take 1 capsule by mouth once daily.ondansetron (ZOFRAN) 4 mg tablet Take 1 tablet by mouth every 8 hours asneeded.No current facility-administered medications for this visit.I have reviewed the nurses notes and I am aware of the family/ socialhistory.Since the last evaluation the medical history has not changed.PHYSICAL EXAMINATION: Vitals: Pulse 72 Wt 112 lb (50.8kg) SpO2 96%Performed in conjunction with observation.The patient is alert and oriented x3.The patient is in no acute distress.Station and Gait: Normal stance, normal gait.Lungs: normal respiratory rate and rhythm.Cardiovascular: regular rate.Neck: Supple. The range of motion is intact.Back: Range of motion of the trunk was generally intact.Spine: Tenderness to the lumbar sacral junctionExtremities: no reported edema or erythema.Motor: Exhibits full strength in all four extremities.ASSESSMENT:Pt reports lower back pain that radiates downt the left LE laterallyShe is in PT x2 days a week and continues with HEP x3 days a week. She hashad x4 sessions of PT at this timeThe increase in Lyrica from 100 mg to 150 mg TID has been somewhathelpful. She will continue with Norflex to help reduce muscle spasms. Heuses the Lidoderm 5% patch prn. This is not covered by insurance and shepays out of pocke.Encounter Diagnosis ICD-10-CM1. DDD (degenerative disc disease), lumbar M51.36 pregabalin (LYRICA) 150mg capsule2. 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 Radiculopathy, lumbar region M54.16 pregabalin (LYRICA) 150 mg capsule4. Fibromyalgia M79.7 pregabalin (LYRICA) 150 mg capsule5. Cervical spondylosis without myelopathy M47.812 pregabalin (LYRICA) 150mg capsule6. Cervicalgia M54.2[facility] website checked and validated. All prescriptions have beenAPPROPRIATELY filled. No suspicious activity was identified.- 10/01/2017by Lilian Jacome Nasim Agreement reviewed and signed?: N/A on October 01, 2017The pain panel was N/APLAN:Prior available imaging studies were reviewed. Findings were discussed.Injection history was reviewed. Medication use and compliance werereviewed.1. [facility].Signed Prescriptions Disp Refills orphenadrine ER (NORFLEX) 100 mg tablet 60 tablet 2 Sig: Take 1 tablet by mouth twice daily. KAY: No pregabalin (LYRICA) 150 mg capsule 90 capsule 2 Sig: Take 1 capsule by mouth three times daily for 30 days. JOSHUA Class: C-V KAY: No3. Interventional procedure options discussed. None at this time4. Encouraged regular home exercise program. Continue with PT x2 days aweek5) F/U in 3 monthsThe treatment plan was discussed with the patient during the office visitand they verbalized an understanding of it.The patient was seen and discussed with Yoko Pierce CNP. The patient' sprogress has been reviewed and discussed with the patient. All questionswere addressed and answered. Agree with the plan as outlined above.Zachary Bauman, [facility]: Dr. Alton Mallory, DOcc: SELFPhone: N/AFax:Results of consultation to be transmitted via electronic medical recordfor those providers who practice within [facility] or with access to [employer] via [facility]IR[facility]ct, or via letter. 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 She continues to be limitedwith sitting, standing, walking, bending, physical activities, cleaningand dressing. She is progressing slower than expected towards her therapygoals as demonstrated by: pain levels, documented subjective informationon progress, documented objective information regarding range of motion,overall function and patient reported outcome measures and appointmentcompliance. She will benefit from continued skilled therapy requiringstretching, strengthening, PNE education, posture and body mechanicsinstruction in order to improve pain, ROM, strength, posture, bodymechanics and facilitate a return to prior functional level.Functional gains: Improved postural alignmentImproved postural awarenessImproved tolerance for home exercise programIncreased independence with HEPUpdated: 09/26/17Goals for Episode of Care: created on 08/28/17 through 10/09/17Independent in home exercises. - met, will continue and modify prnPatient will decrease pain rating by 2 points to meet minimal clinicalimportant difference for numeric pain rating scale. - not met, willcontinueRestore pain-free lumbar ROM to WFL to allow for improved tolerance withdressing. - partially met, increased objectively but no betterfunctionallyStand / Walk without limitations, without pain/symptoms. - not met, willcontinue (pt denies changes)Sleep through night without pain/symptoms. - not met, will continue ( ptdenies changes)Sit without limitations, without pain/symptoms to allow for increasedsitting tolerance - not met, will continueMaintain proper sitting posture throughout session - met, will monitorPatient will be able to tolerate vacuuming, carrying laundry basket,dressing and walking without increased symptoms. - partially met, willcontinue, pt reports improvements with carry laundryImprove Modified Oswestry Pain Questionnaire (LBP) by 6 points (12%) toindicate a Minimal Clinical Important Difference. - partially met, willcontinue (score improved from 60-56)G CODE REPORTINGBased on clinical assessment and the score on the Oswestry AssessmentTool, the G code and corresponding severity modifiers are documentedbelow.Evaluation: 08/28/2017Current Status: Changing AND Maintaining Body Position: G8981 ?CL60-79% impairedGoal Status: Changing AND Maintaining Body Position: G8982?CK 40-59% impairedProgress Report: 09/26/2017Current Status: Changing AND Maintaining Body Position: G8981 CK 40-59%impairedGoal Status: Changing AND Maintaining Body Position: G8982 CK 40-59%impairedPlanned Interventions, Frequency, and Duration: 2x/week, 4 weeksTotal Number of Visits Planned: 8Patient to be seen for Therapeutic exercisePLAN FOR NEXT VISIT: review HEP, progress HEP to tolerance, continuesupervised therex and progress to tolerance. Continue PNE prn.Prognosis: ExcellentExcellent due to: current objective clinical presentation;good supportsystem/ coping skills;good overall health status;positive past response totherapySUBJECTIVE: . Pt reports that her pain is increased today withoutexplanation. She locates pain in L hip and all the way down L LE. Ptreports compliance with HEP 2-3x day. She reports that the PNE cards havebeen beneficial and she is game for anything. She reports increasedexercise tolerance for low intensity HEP. Overall pt feels that her painis unchanged from evaluation.Pain Score: 8/10Pain Location: Buttocks - Left;Leg - Left;Hip - LeftDescription: Sharp;Dull;Aching;StabbingFrequency: IntermittentPost Treatment Pain Score: 7/ 10Post Treatment Pain Description: (decreased slightly after session)OBJECTIVE MEASURES WITH LEVEL OF FUNCTION:Posture / AlignmentPosture: Forward head;Rounded shoulders;Thoracic kyphosisGait AssessmentGait Observation: no gait deficits currentlyLumbar Spine AROMLumbar Flexion: Moderate limitationLumbar Extension: Minimal limitationLumbar R Side-Bend: Minimal limitationLumbar L Side-Bend: Moderate limitationLumbar R Rotation: Minimal limitationLumbar L Rotation: Minimal limitationLE StrengthTrunk Strength: Pt's reported functional difficulties, postural deficits,postural weakness, reported chronic history of low back pain withradiculopathy are all indications that she will benefit from increasedpostural strengthTREATMENT:Therapeutic Exercise:1: [employer] StepOne seat #11 resistance level 1 x6 minutes2: *prone lying x3 minutes3: *prone on elbows x3 minutes4: *supine isometric abdominal exercise via shoulder extension with 2second holds 2x105: * supine LTR 2x106: supine posterior pelvic tilts 2x107: supine bridging 2x108: supine crunches 2x10 in very small range9: HEP reviewed and pt instructed that she should only be completing homeexercises listed above that she has on her handouts.10: treadmill walking 0.8 mph x5 minutes with close supervision and verbalcues.Skilled Intervention: Patient was educated in proper exercise techniqueand purpose for exercises.Skilled judgment was provided in selection of appropriate interventions.Correct performance of therapeutic exercises was facilitated with verbaland visual cuing.Neuromuscular Re-Education:1: Pain Neuroscience Education:Sensitive Nerves:Patient educated on the concept of the nervous system as the bodies alarmsystem, and the role of nociception to warn the body of danger. Peripheralnerve sensitization, hyperalgesia and allodynia were explained usingmetaphors to promote deep learning.Homework: Patient encouraged to identify personal yellow flags, andexplore/identify activity limitations as a result of nervous systemhypersensitivity.Skilled Intervention: Patient education as noted.Billing:[facility]: Therapeutic Exercise (78438): 1:1 time: 30 minutes (2units: 23-37 mins)Neuromuscular Re-education (16363): 1:1 time:15 minutes ( 1 unit: 8-22mins)Total time: 45 minutesMoise García PT CNTHERAPY Observed: 09/26/2017 Status: COMPLETED Source: MORENCI 11:30 AM [facility] [place] REPOSITORY OT/PT/Speech Visit (PTWS) -------NORA GRANDE ([id number]) 1955 FDate Time Provider Department09/26/17 11:30 AM MOISE GARCÍAPT) PTWSEncounter Number: [id number] Time Provider Department [place]09/26/2017 11:30 AM [id number]- MOISE GARÍCAPT) PTWS [facility]Reason for Visit: PT Progress Note [5416]Reason For Visit History RecordedPrimary Visit Diagnosis:Chronic low back pain with sciatica, sciatica laterality unspecified, unspecified back pain laterality [M54.40, G89.29] Other Visit Diagnoses:Radiculopathy, lumbar region [M54.16] DDD ( degenerative disc disease), lumbar [M51.36] Fibromyalgia [M79.7]Allergies As of Date: 09/26/2017 Noted Allergy ReactionCIPROFLOXACIN 11/04/2013 8 - GI Upset 11 - Vomiting Comments: DizzinessCODEINE 02/12/2011 4 - Hives 9 - Itching Comments: Generalized.Date Reviewed: 07/02/2017Reviewed by: Lilian Jacome Ma - Fully AssessedPrescriptions as of 09/26/2017 Sig: CLONAZEPAM 1 MG TABLET Take 1 tablet by mouth daily * BUPROPION HCL SR 150 MG TABLE* TAKE 1 TABLET BY MOUTH TWICE * TIZANIDINE 4 MG TABLET Take 1 tablet by mouth twice * ORPHENADRINE CITRATE ER 100 M* Take 1 tablet by mouth twice * PREGABALIN 150 MG CAPSULE Take 1 capsule by mouth three* LIDOCAINE 5 % TOPICAL PATCH Apply 1 Patch as directed onc* QUETIAPINE 100 MG TABLET Take 1 tablet by mouth once d* OXYCODONE-ACETAMINOPHEN 5 MG-* Take 1-2 tablets by mouth shanice* BREO ELLIPTA INHALATION Inhale as instructed once da* INCRUSE ELLIPTA INHALATION Inhale as instructed once da* TRIAMCINOLONE ACETONIDE 0.1 %* Apply 1 application to affect* NYSTATIN 100, 000 UNIT/GRAM TO* apply twice daily to affected* DULOXETINE 60 MG CAPSULE,ALFRED* Take 1 capsule by mouth once * HYDROXYZINE HCL 25 MG TABLET Take 1 tablet by mouth every * CAPSAICIN 0.025 % TOPICAL CRE* Apply to soles of feet as nee* COMPOUNDED PRESCRIPTION DuaL Gabapentin 6% diclofenac* HYDROCHLOROTHIAZIDE 25 MG TAB* Take 1 tablet by mouth once d* CPAP CPAP 11 cmH2O, suitable mask,* PEDIATRIC MULTIVITAMIN GUMMY * Take 2 tablets by mouth once * ONDANSETRON HCL 4 MG TABLET Take 1 tablet by mouth every * ASPIRIN 81 MG TABLET,DELAYED * Take 81 mg by mouth once sylvia* DICLOFENAC 1 % TOPICAL GEL Apply 2 g to affected area th* ESTRADIOL 0.01% (0.1 MG/GRAM)* Use vaginally twice weekly ON*Progress Notes: Moise García, PT 09/26/2017 4:43 PM SignedEpisode Visit Count: 4Therapist That Will Oversee The Plan Of Care: Moise García PTStart of Care Date: 08/28/17Onset Date: 08/28/77Plan of Care Certification Date: 09/26/17Patient Identified by Name and Date of : YesREHABILITATION AND SPORTS THERAPYPHYSICAL THERAPY PROGRESS REPORTPLAN OF CARE UPDATE:Assessment: 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 She continues to be limited withsitting, standing, walking, bending, physical activities, cleaning and dressing.She is progressing slower than expected towards her therapy goals asdemonstrated by: pain levels, documented subjective information on progress,documented objective information regarding range of motion, overall function andpatient reported outcome measures and appointment compliance. She will benefitfrom continued skilled therapy requiring stretching, strengthening, PNEeducation, posture and body mechanics instruction in order to improve pain, ROM,strength, posture, body mechanics and facilitate a return to prior functionallevel.Functional gains: Improved postural alignmentImproved postural awarenessImproved tolerance for home exercise programIncreased independence with HEPUpdated: Goals for Episode of Care: created on 08/28/17 through 10/09/17Independent in home exercises. - met , will continue and modify prnPatient will decrease pain rating by 2 points to meet minimal clinical importantdifference for numeric pain rating scale. - not met, will continueRestore pain-free lumbar ROM to WFL to allow for improved tolerance withdressing. - partially met, increased objectively but no better functionallyStand / Walk without limitations, without pain/symptoms. - not met , willcontinue (pt denies changes)Sleep through night without pain/symptoms. - not met, will continue (pt denieschanges)Sit without limitations, without pain/symptoms to allow for increased sittingtolerance - not met, will continueMaintain proper sitting posture throughout session - met , will monitorPatient will be able to tolerate vacuuming, carrying laundry basket, dressingand walking without increased symptoms. - partially met, will continue, ptreports improvements with carry laundryImprove Modified Oswestry Pain Questionnaire (LBP) by 6 points (12%) to indicatea Minimal Clinical Important Difference. - partially met, will continue (scoreimproved from 60-56)G CODE REPORTINGBased on clinical assessment and the score on the Oswestry Assessment Tool, theG code and corresponding severity modifiers are documented below.Evaluation: 08/28/2017Current Status: Changing AND Maintaining Body Position: G8981 ?CL60-79% impairedGoal Status: Changing AND Maintaining Body Position: G8982 ?CK40-59% impairedProgress Report: 09/26/2017Current Status: Changing AND Maintaining Body Position: G8981 CK 40-59%impairedGoal Status: Changing AND Maintaining Body Position: G8982 CK 40-59% impairedPlanned Interventions, Frequency, and Duration: 2x/week, 4 weeksTotal Number of Visits Planned: 8Patient to be seen for Therapeutic exercisePLAN FOR NEXT VISIT : review HEP, progress HEP to tolerance, continue supervisedtherex and progress to tolerance. Continue PNE prn.Prognosis: ExcellentExcellent due to: current objective clinical presentation;good support system/coping skills;good overall health status;positive past response to therapySUBJECTIVE: . Pt reports that her pain is increased today withoutexplanation. She locates pain in L hip and all the way down L LE. Pt reportscompliance with HEP 2-3x day. She reports that the PNE cards have beenbeneficial and she is game for anything. She reports increased exercisetolerance for low intensity HEP. Overall pt feels that her pain is unchangedfrom evaluation.Pain Score: 8/10Pain Location: Buttocks - Left;Leg - Left;Hip - LeftDescription: Sharp;Dull;Aching;StabbingFrequency: IntermittentPost Treatment Pain Score: 7/10Post Treatment Pain Description: (decreased slightly after session) OBJECTIVE MEASURES WITH LEVEL OF FUNCTION:Posture / AlignmentPosture: Forward head;Rounded shoulders; Thoracic kyphosisGait AssessmentGait Observation: no gait deficits currentlyLumbar Spine AROMLumbar Flexion: Moderate limitationLumbar Extension: Minimal limitationLumbar R Side-Bend: Minimal limitationLumbar L Side-Bend: Moderate limitationLumbar R Rotation: Minimal limitationLumbar L Rotation: Minimal limitationLE StrengthTrunk Strength: Pt's reported functional difficulties, postural deficits,postural weakness, reported chronic history of low back pain with radiculopathyare all indications that she will benefit from increased postural strengthTREATMENT:Therapeutic Exercise:1: [employer] StepOne seat #11 resistance level 1 x6 minutes2: *prone lying x3 minutes3: *prone on elbows x3 minutes4: *supine isometric abdominal exercise via shoulder extension with 2 secondholds 2x105: * supine LTR 2x106: supine posterior pelvic tilts 2x107: supine bridging 2x108: supine crunches 2x10 in very small range9: HEP reviewed and pt instructed that she should only be completing homeexercises listed above that she has on her handouts.10: treadmill walking 0.8 mph x5 minutes with close supervision and verbal cues.Skilled Intervention: Patient was educated in proper exercise technique andpurpose for exercises.Skilled judgment was provided in selection of appropriate interventions.Correct performance of therapeutic exercises was facilitated with verbal andvisual cuing.Neuromuscular Re-Education:1: Pain Neuroscience Education:Sensitive Nerves:Patient educated on the concept of the nervous system as the bodies alarmsystem, and the role of nociception to warn the body of danger. Peripheral nervesensitization, hyperalgesia and allodynia were explained using metaphors topromote deep learning.Homework: Patient encouraged to identify personal yellow flags, andexplore/identify activity limitations as a result of nervous systemhypersensitivity.Skilled Intervention : Patient education as noted.Billing:[facility]: Therapeutic Exercise (71143): 1:1 time: 30 minutes (2 units:23-37 mins)Neuromuscular Re-education (62476): 1:1 time:15 minutes (1 unit: 8-22 mins)Total time: 45 minutesMoise García PT --- PROGRESS Observed: 09/24/2017 Status: COMPLETED Source: [place] 9:23 AM [facility] [place] REPOSITORY HNO ID: [id number]: Moise (Pt) Maribelvice: (none) Author Type: Physical TherapistType: Progress NotesFiled: 09/24/2017 10:22 AMNote Text: Episode Visit Count: 3Therapist That Will Oversee The Plan Of Care: Moise García PTStart of Care Date: 08/28/17Onset Date: 08/28/77Plan of Care Certification Date: 08/28/17Patient Identified by Name and Date of : YesREHABILITATION AND SPORTS THERAPYPHYSICAL THERAPY TREATMENT NOTEASSESSMENT: Nora Grande demonstrated difficulty with vacuuming. Shedenies any functional improvements. The patient will continue to benefitfrom continued skilled physical therapy for PNE education, stretching andstrengthening therex, body mechanics instruction and facilitation ofreturn to prior functional status.PLAN FOR NEXT VISIT:review HEP, progress HEP to tolerance, continue supervised therex andprogress to tolerance. Continue PNE prn.SUBJECTIVE:Pt reports that overall she is feeling the same with pain unchanged. Shereports missing her last three appointments for a variety of reasons butthe main reason is because her sleep aid medication causes her toover-sleep. She reports missing other appointments with other providersas well. She reports compliance with HEP 3x day. She reports thatcompleting HEP causes increased pain but she continues to do HEP despitetherapist instructions that she should stop exercises that cause increasedpain. Pt feels that PNE has been helpful.Pain Score: 5/10Pain Location: Low Back/Lumbar Spine - Right;Low Back/Lumbar Spine -Left;Leg - LeftDescription: SharpFrequency: IntermittentPost Treatment Pain Score: (better but not numerically rated)Post Treatment Pain Description: (pt reported feeling better but did notnumerically rate)OBJECTIVE MEASURES WITH LEVEL OF FUNCTION:Poor posture continuesTREATMENT:Therapeutic Exercise:1: [employer] StepOne seat #11 resistance level 1 x6 minutes2: *prone lying x3 minutes3: *prone on elbows x3 minutes4: *supine isometric abdominal exercise via shoulder extension with 2second holds 2x105: * supine LTR 2x106: supine posterior pelvic tilts 2x107: supine bridging 2x108: supine crunches 2x10 in very small range9: HEP reviewed and pt instructed that she should only be completing homeexercises listed above that she has on her handouts.Skilled Intervention: Patient was educated in proper exercise techniqueand purpose for exercises.Skilled judgment was provided in selection of appropriate interventions.Correct performance of therapeutic exercises was facilitated with verbaland visual cuing.Neuromuscular Re-Education:1: Pain Neuroscience Education:Calming Sensitive NervesPatient was educated regarding endogenous mechanisms and strategies toincrease the brain?s production of chemicals which decrease pain, such asaerobic exercise and improved pain knowledge. The concepts of pacing,graded exposure, ?sore but safe?, and ?hurt does not equal harm? werediscussed.Homework: Patient provided with tools to start exercise log and gradedactivities log.Skilled Intervention: Desensitization discussed during PNE educationPatient education as noted.Billing:[facility]: Therapeutic Exercise (41223): 1:1 time: 30 minutes (2units: 23-37 mins)Neuromuscular Re-education ( 75998): 1:1 time:15 minutes (1 unit: 8-22mins)Total time: 45 minutesMoise García PT CNTHERAPY Observed: 09/24/2017 Status: COMPLETED Source: [place] 9:15 AM [facility] [place] REPOSITORY OT/PT/Speech Visit (PTWS) -------NORA GRANDE ([id number]) 1955 FDate Time Provider Department09/24/17 9:15 AM MOISE GARCÍAPT) PTWSEncounter Number: [id number] Time Provider Department [place]09/24/2017 9:15 AM [id number]- MOISE GARCÍA (PT) [facility]: Physical Therapy [503]Primary Visit Diagnosis:Chronic low back pain with sciatica, sciatica laterality unspecified, unspecified back pain laterality [M54.40, G89.29] Other Visit Diagnoses:Radiculopathy, lumbar region [M54.16] DDD (degenerative disc disease), lumbar [M51.36] Fibromyalgia [M79.7]Allergies As of Date: 09/24/2017 Noted Allergy ReactionCIPROFLOXACIN 11/04/2013 8 - GI Upset 11 - Vomiting Comments: DizzinessCODEINE 02/12/2011 4 - Hives 9 - Itching Comments: Generalized.Date Reviewed: 2016Reviewed by: Lilian Jacome Ma - Fully AssessedPrescriptions as of 09/24/2017 Sig: CLONAZEPAM 1 MG TABLET Take 1 tablet by mouth daily * BUPROPION HCL SR 150 MG TABLE* TAKE 1 TABLET BY MOUTH TWICE * TIZANIDINE 4 MG TABLET Take 1 tablet by mouth twice * ORPHENADRINE CITRATE ER 100 M* Take 1 tablet by mouth twice * PREGABALIN 150 MG CAPSULE Take 1 capsule by mouth three* LIDOCAINE 5 % TOPICAL PATCH Apply 1 Patch as directed onc* QUETIAPINE 100 MG TABLET Take 1 tablet by mouth once d* OXYCODONE-ACETAMINOPHEN 5 MG-* Take 1-2 tablets by mouth shanice* BREO ELLIPTA INHALATION Inhale as instructed once da* INCRUSE ELLIPTA INHALATION Inhale as instructed once da* TRIAMCINOLONE ACETONIDE 0.1 %* Apply 1 application to affect* NYSTATIN 100,000 UNIT/GRAM TO* apply twice daily to affected* DULOXETINE 60 MG CAPSULE,ALFRED* Take 1 capsule by mouth once * HYDROXYZINE HCL 25 MG TABLET Take 1 tablet by mouth every * CAPSAICIN 0.025 % TOPICAL CRE* Apply to soles of feet as nee* COMPOUNDED PRESCRIPTION DuaL Gabapentin 6% diclofenac* HYDROCHLOROTHIAZIDE 25 MG TAB* Take 1 tablet by mouth once d* CPAP CPAP 11 cmH2O, suitable mask,* PEDIATRIC MULTIVITAMIN GUMMY * Take 2 tablets by mouth once * ONDANSETRON HCL 4 MG TABLET Take 1 tablet by mouth every * ASPIRIN 81 MG TABLET,DELAYED * Take 81 mg by mouth once sylvia* DICLOFENAC 1 % TOPICAL GEL Apply 2 g to affected area th* ESTRADIOL 0.01% (0.1 MG/GRAM)* Use vaginally twice weekly ON*Progress Notes:Moise García PT 09/24/2017 10:22 AM SignedEpisode Visit Count: 3Therapist That Will Oversee The Plan Of Care: Moise García PTStart of Care Date: 08/28/17Onset Date: 08/28Plan of Care Certification Date: 08/28/17Patient Identified by Name and Date of : YesREHABILITATION AND SPORTS THERAPYPHYSICAL THERAPY TREATMENT NOTEASSESSMENT: Nora Grande demonstrated difficulty with vacuuming. Shedenies any functional improvements. The patient will continue to benefit fromcontinued skilled physical therapy for PNE education, stretching andstrengthening therex , body mechanics instruction and facilitation of return toprior functional status.PLAN FOR NEXT VISIT:review HEP, progress HEP to tolerance, continue supervised therex and progressto tolerance. Continue PNE prn.SUBJECTIVE:Pt reports that overall she is feeling the same with pain unchanged. Lauroorts missing her last three appointments for a variety of reasons but themain reason is because her sleep aid medication causes her to over-sleep. Lauroorts missing other appointments with other providers as well. She reportscompliance with HEP 3x day. She reports that completing HEP causes increasedpain but she continues to do HEP despite therapist instructions that she shouldstop exercises that cause increased pain. Pt feels that PNE has been helpful.Pain Score: 5/10Pain Location: Low Back/Lumbar Spine - Right;Low Back/Lumbar Spine - Left;Leg -LeftDescription: SharpFrequency : IntermittentPost Treatment Pain Score: (better but not numerically rated)Post Treatment Pain Description: (pt reported feeling better but did notnumerically rate)OBJECTIVE MEASURES WITH LEVEL OF FUNCTION:Poor posture continuesTREATMENT:Therapeutic Exercise:1: [employer] StepOne seat #11 resistance level 1 x6 minutes2: *prone lying x3 minutes3: *prone on elbows x3 minutes4: *supine isometric abdominal exercise via shoulder extension with 2 secondholds 2x105: *supine LTR 2x106: supine posterior pelvic tilts 2x107: supine bridging 2x108: supine crunches 2x10 in very small range9: HEP reviewed and pt instructed that she should only be completing homeexercises listed above that she has on her handouts.Skilled Intervention: Patient was educated in proper exercise technique andpurpose for exercises.Skilled judgment was provided in selection of appropriate interventions.Correct performance of therapeutic exercises was facilitated with verbal andvisual cuing.Neuromuscular Re-Education:1: Pain Neuroscience Education:Calming Sensitive NervesPatient was educated regarding endogenous mechanisms and strategies to increasethe brain?s production of chemicals which decrease pain, such as aerobicexercise and improved pain knowledge. The concepts of pacing, graded exposure,?sore but safe?, and ?hurt does not equal harm? were discussed.Homework: Patient provided with tools to start exercise log and gradedactivities log.Skilled Intervention: Desensitization discussed during PNE educationPatient education as noted.Billing:[facility]: Therapeutic Exercise (17843): 1:1 time: 30 minutes (2 units:23-37 mins)Neuromuscular Re-education (90296): 1:1 time: 15 minutes (1 unit: 8-22 mins)Total time: 45 minutesMoise García PT --- PROGRESS Observed: 09/03/2017 Status: COMPLETED Source: [place] 10:02 AM [facility] [place] REPOSITORY HNO ID: [id number]: Moise (Pt) [place]: (none) Author Type: Physical TherapistType: Progress NotesFiled: 09/03/2017 11:36 AMNote Text:Episode Visit Count: 2Therapist That Will Oversee The Plan Of Care: Moise García PTStart of Care Date: 08/28/17Onset Date: 08/28/77Plan of Care Certification Date: 08/28/17Patient Identified by Name and Date of : YesREHABILITATION AND SPORTS THERAPYPHYSICAL THERAPY TREATMENT NOTEASSESSMENT: Nora Ashlie Grande demonstrated improvements in understandingthe source of chronic pain and how to manage pain despite the persistentnature of pain. The patient will continue to benefit from continuedskilled physical therapy for supervised therex, PNE, postural correction,core strengthening and facilitation of return to prior functional level.PLAN FOR NEXT VISIT:review HEP, progress HEP to tolerance, continue supervised therex andprogress to tolerance. Continue PNE.SUBJECTIVE:Pt reports that overall she is feeling the same but she does acknowledgean improved understanding of chronic pain, its sources and how to manage.She reports compliance with HEP 3x day most days with good results. Shereports an increase in symptoms with HEP completion but she understandsthat this is not harming her and that she must work through this.Pain Score: 6/10Pain Location: Low Back/Lumbar Spine - Right;Low Back/Lumbar Spine - LeftDescription: Aching;SharpFrequency: Continuous (but varies in intensity) Post Treatment Pain Score: 4/10Post Treatment Pain Description: (pain is decreased after therex today)OBJECTIVE MEASURES WITH LEVEL OF FUNCTION:Posture / AlignmentPosture: Forward head;Rounded shouldersTREATMENT:Therapeutic Exercise:1: [employer] StepOne seat #11 resistance level 1 x6 minutes2: *prone lying x3 minutes3: prone on elbows x3 minutes4: *supine isometric abdominal exercise via shoulder extension with 2second holds 2x105: *supine LTR 2x106: supine posterior pelvic tilts 2x107: supine bridging 2x108: supine crunches 2x10 in very small rangeSkilled Intervention: Patient was educated in proper exercise techniqueand purpose for exercises.Skilled judgment was provided in selection of appropriate interventions.Correct performance of therapeutic exercises was facilitated with verbaland visual cuing.HEP was reviewed and continuation with proper intensity encouraged.Neuromuscular Re-Education:1: Pain Neuroscience Education:Pain Intro:Patient introduced to the topic of pain neuroscience education and thatimproving knowledge of how pain works promotes improved recovery andrehabilitation. Current knowledge and understanding of patient on painrelated topics was explored to create baseline.Homework: Patient received the pain knowledge quiz by GEORGIANA Velarde as ameans to begin addressing misconceptualizations of pain.All questions on all cards were reviewed with pt and she acknowledgedunderstanding.Skilled Intervention: Patient education as noted.Billing:[facility]: Therapeutic Exercise (60461): 1:1 time: 30 minutes (2units: 23-37 mins)Neuromuscular Re-education (31276): 1:1 time:15 minutes ( 1 unit: 8-22mins)Total time: 45 minutesMoise García PT CNTHERAPY Observed: 09/03/2017 Status: COMPLETED Source: [place] 9:15 AM [facility] [place] REPOSITORY OT/PT/Speech Visit (PTWS) -------NORA GRANDE ([id number]) 1955 [facility]09/03/17 9:15 AM MOISE GARCÍA (PT) PTWSEncounter Number : [id number] Time Provider Department [place]09/03/2017 9:15 AM [id number], BRENT (PT) PTWS [facility]Reason for Visit: Physical Therapy [503]Primary Visit Diagnosis:Chronic low back pain with sciatica, sciatica laterality unspecified, unspecified back pain laterality [M54.40, G89.29] Other Visit Diagnoses: Radiculopathy, lumbar region [M54.16] DDD (degenerative disc disease), lumbar [M51.36] Fibromyalgia [M79.7]Allergies As of Date: 09/03/2017 Noted Allergy ReactionCIPROFLOXACIN 11/04/2013 8 - GI Upset 11 - Vomiting Comments: DizzinessCODEINE 02/12/2011 4 - Hives 9 - Itching Comments: Generalized.Date Reviewed: 07/02/2017Reviewed by: Lilian Jacome Ma - Fully AssessedPrescriptions as of Sig: CLONAZEPAM 1 MG TABLET Take 1 tablet by mouth daily * BUPROPION HCL SR 150 MG TABLE* TAKE 1 TABLET BY MOUTH TWICE * TIZANIDINE 4 MG TABLET Take 1 tablet by mouth twice * ORPHENADRINE CITRATE ER 100 M* Take 1 tablet by mouth twice * PREGABALIN 150 MG CAPSULE Take 1 capsule by mouth three* LIDOCAINE 5 % TOPICAL PATCH Apply 1 Patch as directed onc* QUETIAPINE 100 MG TABLET Take 1 tablet by mouth once d* OXYCODONE- ACETAMINOPHEN 5 MG-* Take 1-2 tablets by mouth shanice* BREO ELLIPTA INHALATION Inhale as instructed once da* INCRUSE ELLIPTA INHALATION Inhale as instructed once da* TRIAMCINOLONE ACETONIDE 0.1 %* Apply 1 application to affect* NYSTATIN 100,000 UNIT/GRAM TO* apply twice daily to affected* DULOXETINE 60 MG CAPSULE,ALFRED* Take 1 capsule by mouth once * HYDROXYZINE HCL 25 MG TABLET Take 1 tablet by mouth every * CAPSAICIN 0.025 % TOPICAL CRE* Apply to soles of feet as nee* COMPOUNDED PRESCRIPTION DuaL Gabapentin 6% diclofenac* HYDROCHLOROTHIAZIDE 25 MG TAB* Take 1 tablet by mouth once d* CPAP CPAP 11 cmH2O, suitable mask,* PEDIATRIC MULTIVITAMIN GUMMY * Take 2 tablets by mouth once * ONDANSETRON HCL 4 MG TABLET Take 1 tablet by mouth every * ASPIRIN 81 MG TABLET,DELAYED * Take 81 mg by mouth once sylvia* DICLOFENAC 1 % TOPICAL GEL Apply 2 g to affected area th* ESTRADIOL 0.01% (0.1 MG/GRAM )* Use vaginally twice weekly ON*Progress Notes:Moise García, PT 09/03/2017 11:36 AM SignedEpisode Visit Count: 2Therapist That Will Oversee The Plan Of Care: Moise García PTStart of Care Date: Onset Date: 08/28/77Plan of Care Certification Date: 08/28/17Patient Identified by Name and Date of : YesREHABILITATION AND SPORTS THERAPYPHYSICAL THERAPY TREATMENT NOTEASSESSMENT: Nora Grande demonstrated improvements in understanding thesource of chronic pain and how to manage pain despite the persistent nature ofpain. The patient will continue to benefit from continued skilled physicaltherapy for supervised therex, PNE, postural correction, core strengthening andfacilitation of return to prior functional level.PLAN FOR NEXT VISIT:review HEP, progress HEP to tolerance, continue supervised therex and progressto tolerance. Continue PNE.SUBJECTIVE:Pt reports that overall she is feeling the same but she does acknowledge animproved understanding of chronic pain, its sources and how to manage. Shereports compliance with HEP 3x day most days with good results. She reports anincrease in symptoms with HEP completion but she understands that this is notharming her and that she must work through this.Pain Score: 6/10Pain Location: Low Back/Lumbar Spine - Right;Low Back/Lumbar Spine - LeftDescription: Aching;SharpFrequency: Continuous (but varies in intensity)Post Treatment Pain Score: 4/10Post Treatment Pain Description: (pain is decreased after therex today)OBJECTIVE MEASURES WITH LEVEL OF FUNCTION:Posture / AlignmentPosture: Forward head;Rounded shouldersTREATMENT:Therapeutic Exercise:1: [employer] StepOne seat #11 resistance level 1 x6 minutes2: *prone lying x3 minutes3: prone on elbows x3 minutes4: *supine isometric abdominal exercise via shoulder extension with 2 secondholds 2x105: *supine LTR 2x106: supine posterior pelvic tilts 2x107: supine bridging 2x108: supine crunches 2x10 in very small rangeSkilled Intervention: Patient was educated in proper exercise technique andpurpose for exercises.Skilled judgment was provided in selection of appropriate interventions.Correct performance of therapeutic exercises was facilitated with verbal andvisual cuing.HEP was reviewed and continuation with proper intensity encouraged.Neuromuscular Re-Education:1: Pain Neuroscience Education:Pain Intro :Patient introduced to the topic of pain neuroscience education and thatimproving knowledge of how pain works promotes improved recovery andrehabilitation. Current knowledge and understanding of patient on pain relatedtopics was explored to create baseline.Homework: Patient received the pain knowledge quiz by GEORGIANA Velarde as a means tobegin addressing misconceptualizations of pain.All questions on all cards were reviewed with pt and she acknowledgedunderstanding.Skilled Intervention: Patient education as noted.Billing:[facility]: Therapeutic Exercise (00959): 1:1 time: 30 minutes (2 units:23-37 mins)Neuromuscular Re-education (14989): 1:1 time:15 minutes (1 unit: 8-22 mins)Total time: 45 minutesMoise García PT --- PROGRESS Observed: 08/28/2017 Status: COMPLETED Source: [place] 1:33 PM [facility] [place] REPOSITORY HNO ID: [id number]: Moise (Pt) [place]: (none) Author Type: Physical TherapistType: Progress NotesFiled: 08/28/2017 1:46 PMNote Text: Episode Visit Count: 1Therapist That Will Oversee The Plan Of Care: BERTRAM Buttstart of Care Date: 08/28/17Onset Date: 08/28/77Plan of Care Certification Date: 08/28/17Patient Identified by Name and Date of : YesREHABILITATION AND SPORTS THERAPYPHYSICAL THERAPY EVALUATIONPLAN OF CARE:Assessment: Nora Grande presents with the chief complaint of L lowback and L hip/buttock pain. She presents with impairments of pain, ROMlimitations, postural weakness, postural deficits and resulting functionallimitations. She may benefit from skilled therapy services to improvepain, ROM, posture, postural/core strength and facilitate improvedfunctional task performance.Low Back Pain Subgroup ClassificationLow Back Pain Subgroup Classification: Graded activity subgroup:recommended visits 12.Graded Activity Subgroup Classification based on: exam findings suggestiveof central sensitization;maladaptive psychosocial factors;diffuse nonanatomic painPrognosis: ExcellentExcellent due to: current objective clinical presentation;good overallhealth status;within-session changes at evaluationGoals for Episode of Care: created on 08/28/17 through 10/09/17Independent in home exercises.Patient will decrease pain rating by 2 points to meet minimal clinicalimportant difference for numeric pain rating scale.Restore pain-free lumbar ROM to WFL to allow for improved tolerance withdressing.Stand / Walk without limitations, without pain/symptoms.Sleep through night without pain/symptoms.Sit without limitations, without pain/symptoms to allow for increasedsitting toleranceMaintain proper sitting posture throughout sessionPatient will be able to tolerate vacuuming, carrying laundry basket,dressing and walking without increased symptoms.Improve Modified Oswestry Pain Questionnaire (LBP) by 6 points (12%) toindicate a Minimal Clinical Important Difference.G CODE REPORTINGBased on clinical assessment and the score on the Oswestry AssessmentTool, the G code and corresponding severity modifiers are documentedbelow.Evaluation: 2017Current Status: Changing AND Maintaining Body Position: G8981 CL 60-79%impairedGoal Status: Changing AND Maintaining Body Position: G8982 CK 40-59%impairedPlanned Interventions, Frequency, and Duration: Current Frequency:2x/weekDuration: 6 weeksTotal Number of Visits Planned: 12Patient to be see for Planned Treatment Interventions: Therapeuticexercise; Neuromuscular re-education;Manual therapy;Therapeuticactivities;Self-long term management;Patient/Family/CaregiverEducation;Body Mechanics Training;Functional training;General ConditioningPLAN FOR NEXT VISIT: review HEP, progress to tolerance prn, begin activeexercise program for postural stretching and strengthening with emphasison neutral spine, review PNE concepts prn and use support materials prn.Patient demonstrates good understanding of plan of care and treatment.The above goals and plan of care were discussed and agreed upon bypatient/family.SUBJECTIVE: Nora Grande is a 62 year old female seen today forconstant pain in spine from neck to low back and down into L hip andbuttock. She also reports intermittent radicular L LE pain that travelsall the way down her leg. She reports that radicular L LE pain has beenless since injections in spine. Now it is just in the L hipFunctional Limitations: Functional Limitation CommentsPrior Level of Function: Independent without limitationsPatient Goals: decrease painIntake Information: Prescription presentPrevious Treatment: Injections;Aquatic PTFalls Interview: No positive findings with falls interviewRelevant HistoryMedical Conditions: FibromyalgiaEmployment: Medically DisabledHome EnvironmentPatient Lives With: Self/AloneAssistance Available: PRNAquatic Screen: NoSpine HistorySymptoms Location at Onset: BackSymptoms Since Onset: WorseningPain is Worse Always: On the Move;Bending;Walking;SittingPain is Better Sometimes: (medication) Sleeping Position: Side lying right;Side lying leftSleep Affected by Pain: Pain keeps from falling asleep;Pain awakensPrevious Episodes: YesRed FlagsVertebral Fracture Red Flags: FemaleVertebral Fracture Clinical Reasoning: No identified risk factorsAbdominal Aortic Aneurysm Clinical Reasoning: No identified risk factors.Cancer Red Flags: History of Cancer;Age >50 or < 20Cancer Clinical Reasoning: No identified risk factors.Infection Clinical Reasoning: No identified risk factors.Cauda Equina Syndrome Clinical Reasoning: No identified risk factors.Red Flags - CervicalCancer Red Flags: History of Cancer;Age >50 or <20Cancer Clinical Reasoning: No identified risk factors.Infection Clinical Reasoning: No identified risk factors.Pain Score: 5/10Pain Location: Low Back/Lumbar Spine - Left;Hip - LeftDescription: Sharp;Aching;StabbingFrequency: Continuous (but varies in intensity)Post Treatment Pain Score: No ChangePain Location: Low Back/Lumbar Spine - Left;Hip - LeftPost Treatment Pain Description: (no change)OBJECTIVE MEASURES WITH LEVEL OF FUNCTION:Posture / AlignmentPosture: Forward head;Rounded shoulders;Thoracic kyphosisGait AssessmentGait Observation: no significant deviations currentlySensation - LumbarSensation: Grossly IntactLumbar Spine AROMLumbar Flexion: Major limitation;Increased painLumbar Extension: Moderate limitation;Increased painLumbar R Side-Bend: Normal;Increased painLumbar L Side-Bend: Normal;Increased painLumbar R Rotation: Minimal limitation;Increased painLumbar L Rotation: Minimal limitation; Increased painStatic Testing - LumbarSit Slouched: worseSit Erect: betterStand Slouched: worseStand Erect: betterLE StrengthTrunk Strength: Pt's reported functional difficulties, postural deficits,postural weakness, reported chronic history of low back pain withradiculopathy are all indications that she will benefit from increasedpostural strengthR LE Strength: no asymmetrical myotomal weakness detected LEsL LE Strength: no asymmetrical myotomal weaknessSpecial Tests - Hip and SpineHip and Spine Special Tests: SLR TestSLR Test: Right Positive;Left PositiveEducation:EducationLearning Preferences: Demonstration;Explanation;Performance;PrintedMaterialsBarriers: NoneLearning/ educational needs: Lifestyle changes;Health promotion;Homeexercise program;Plan of Care;Posture; Body MechanicEducation Provided: Yes, see treatment interventions for educationprovidedEducation Provided To: PatientEducation Mode/Type:Demonstration;Explanation/Discussion;Literature/PrintedMaterials; PerformanceResponse to Education/Teach Back: States/Identifies;ReturnDemonstration;Requires Review/ Additional EducationTREATMENT:EvaluationTherapeutic Exercise:1: *prone lying x3 minutes2: *supine isometric abdominal exercise via shoulder extension with 2second holds 2x103: * supine LTR 2x104: The proper intensity with all therex emphasized and she was instructedto stop any exercise or activity that causes increased pain or simplydecrease intensity.Skilled Intervention: Patient was educated in proper exercise techniqueand purpose for exercises.Reviewed and educated patient on additions/changes for home exerciseprogram as above (*)Skilled judgment was provided in selection of appropriate interventions.Provided written instruction for home exercise program to facilitateproper performance and compliance.Correct performance of therapeutic exercises was facilitated with verbaland visual cuing.Therapeutic Activity:1: Postural correction and proper body mechanics instructed andemphasized. A handout was provided on postural correction and bodymechanics. The role of posture and body mechanics on her symptoms wasinstructed using anatomy and principles of soft tissue strain asrationale.Skilled Intervention: Instructed on proper lifting and carrying techniqueswith importance of core activation.Neuromuscular Re-Education:1: Pain Neuroscience Education:Pain Intro:Patient introduced to the topic of pain neuroscience education and thatimproving knowledge of how pain works promotes improved recovery andrehabilitation. Current knowledge and understanding of patient on painrelated topics was explored to create baseline.Sensitive Nerves:Patient educated on the concept of the nervous system as the bodies alarmsystem, and the role of nociception to warn the body of danger. Peripheralnerve sensitization, hyperalgesia and allodynia were explained usingmetaphors to promote deep learning.Homework: Patient encouraged to identify personal yellow flags, andexplore/identify activity limitations as a result of nervous systemhypersensitivity.Calming Sensitive NervesPatient was educated regarding endogenous mechanisms and strategies toincrease the brain?s production of chemicals which decrease pain, such asaerobic exercise and improved pain knowledge. The concepts of pacing,graded exposure, ?sore but safe?, and ?hurt does not equal harm? werediscussed. Sleep hygiene introduced to help calm the nervous system andreduce stress.Pain Comes From the BrainPatient was educated on the concept of pain as an output of the brain, including nociception versus pain, inhibition and facilitation, and threatvalue using metaphors to promote deep learning.Homework: Patient encouraged to recall/record instances where they havehad tissue injury but no pain, such as bruise or cut.Stress Responses to Pain (Lions and stress):Patient was educated regarding sympathetic nervous system topics as theypertain to pain, including stress biology, fight or flight response andmultiple output mechanisms. Metaphors were used to promote deep learning,and the role of self-care techniques useful in calming the sympatheticnervous system were addressed.Emotions and PainPatient educated on the relationship between emotions and pain, and therole that fear, catastrophization, nociception and threat play inpersistent pain, by activating the bodies alarm system, resulting inhypersensitive nerves. Metaphors incorporated to foster deep learning andparadigm shift for patient.Skilled Intervention: Patient education as noted.Billing:[facility]: Evaluation - Moderate Complexity (13535)Therapeutic Exercise (95185): 1:1 time: 15 minutes (1 unit: 8-22 mins)Therapeutic Activity (20033): 1:1 time: 10 minutes (1 unit: 8-22 mins) Neuromuscular Re-education (33713): 1:1 time:15 minutes (1 unit: 8-22mins)Total time: 55 minutesMoise García PT CNTHERAPY Observed: 08/28/2017 Status: COMPLETED Source: [place] 8:30 AM [facility] [place] REPOSITORY OT/PT/Speech Visit (PTWS) -------NORA GRANDE ([id number]) 1955 FDate Time Provider Department08/28/17 8:30 AM MOISE GARCÍAPT) PTWSEncounter Number : [id number] Time Provider Department [place]08/28/2017 8:30 AM [id number] GARCÍAPT) PTWS [facility]Reason for Visit: PT Eval [747] Patient Education [91]Primary Visit Diagnosis:DDD (degenerative disc disease), lumbar [M51.36] Other Visit Diagnoses:Fibromyalgia [M79.7] Radiculopathy, lumbar region [M54.16] Chronic low back pain with sciatica, sciatica laterality unspecified, unspecified back pain laterality [M54.40, G89.29]Allergies As of Date: 08/28/2017 Noted Allergy ReactionCIPROFLOXACIN 11/04/2013 8 - GI Upset 11 - Vomiting Comments: DizzinessCODEINE 02/12/2011 4 - Hives 9 - Itching Comments: Generalized.Date Reviewed: 07/02/2017Reviewed by: Lilian Jacome Ma - Fully AssessedPrescriptions as of 06/2018 Sig: CLONAZEPAM 1 MG TABLET Take 1 tablet by mouth daily * BUPROPION HCL SR 150 MG TABLE* TAKE 1 TABLET BY MOUTH TWICE * TIZANIDINE 4 MG TABLET Take 1 tablet by mouth twice * ORPHENADRINE CITRATE ER 100 M* Take 1 tablet by mouth twice * PREGABALIN 150 MG CAPSULE Take 1 capsule by mouth three* LIDOCAINE 5 % TOPICAL PATCH Apply 1 Patch as directed onc* QUETIAPINE 100 MG TABLET Take 1 tablet by mouth once d* OXYCODONE- ACETAMINOPHEN 5 MG-* Take 1-2 tablets by mouth shanice* BREO ELLIPTA INHALATION Inhale as instructed once da* INCRUSE ELLIPTA INHALATION Inhale as instructed once da* TRIAMCINOLONE ACETONIDE 0.1 %* Apply 1 application to affect* NYSTATIN 100,000 UNIT/GRAM TO* apply twice daily to affected* DULOXETINE 60 MG CAPSULE,ALFRED* Take 1 capsule by mouth once * HYDROXYZINE HCL 25 MG TABLET Take 1 tablet by mouth every * CAPSAICIN 0.025 % TOPICAL CRE* Apply to soles of feet as nee* COMPOUNDED PRESCRIPTION DuaL Gabapentin 6% diclofenac* HYDROCHLOROTHIAZIDE 25 MG TAB* Take 1 tablet by mouth once d* CPAP CPAP 11 cmH2O, suitable mask,* PEDIATRIC MULTIVITAMIN GUMMY * Take 2 tablets by mouth once * ONDANSETRON HCL 4 MG TABLET Take 1 tablet by mouth every * ASPIRIN 81 MG TABLET,DELAYED * Take 81 mg by mouth once sylvia* DICLOFENAC 1 % TOPICAL GEL Apply 2 g to affected area th* ESTRADIOL 0.01% (0.1 MG/GRAM )* Use vaginally twice weekly ON*Progress Notes:Moise García PT 08/28/2017 1:46 PM SignedEpisode Visit Count: 1Therapist That Will Oversee The Plan Of Care: Moise García PTStart of Care Date: Onset Date: 08/28/77Plan of Care Certification Date: 08/28/17Patient Identified by Name and Date of : YesREHABILITATION AND SPORTS THERAPYPHYSICAL THERAPY EVALUATIONPLAN OF CARE: Assessment: Nora Grande presents with the chief complaint of L low backand L hip/buttock pain. She presents with impairments of pain, ROMlimitations, postural weakness, postural deficits and resulting functionallimitations. She may benefit from skilled therapy services to improve pain,ROM, posture, postural/core strength and facilitate improved functional taskperformance.Low Back Pain Subgroup ClassificationLow Back Pain Subgroup Classification: Graded activity subgroup: recommendedvisits 12.Graded Activity Subgroup Classification based on: exam findings suggestive ofcentral sensitization;maladaptive psychosocial factors;diffuse non anatomic painPrognosis: ExcellentExcellent due to: current objective clinical presentation;good overall healthstatus; within-session changes at evaluationGoals for Episode of Care: created on 08/28/17 through Independent in home exercises.Patient will decrease pain rating by 2 points to meet minimal clinical importantdifference for numeric pain rating scale.Restore pain-free lumbar ROM to WFL to allow for improved tolerance withdressing.Stand / Walk without limitations, without pain/symptoms.Sleep through night without pain/symptoms.Sit without limitations, without pain/symptoms to allow for increased sittingtoleranceMaintain proper sitting posture throughout sessionPatient will be able to tolerate vacuuming, carrying laundry basket, dressingand walking without increased symptoms.Improve Modified Oswestry Pain Questionnaire (LBP) by 6 points (12%) to indicatea Minimal Clinical Important Difference.G CODE REPORTINGBased on clinical assessment and the score on the Oswestry Assessment Tool, theG code and corresponding severity modifiers are documented below.Evaluation : 08/28/2017Current Status: Changing AND Maintaining Body Position: G8981 CL 60-79% impairedGoal Status: Changing AND Maintaining Body Position: G8982 CK 40-59% impairedPlanned Interventions, Frequency, and Duration: Current Frequency: 2x/weekDuration: 6 weeksTotal Number of Visits Planned: 12Patient to be see for Planned Treatment Interventions: Therapeuticexercise;Neuromuscular re-education ;Manual therapy;Therapeuticactivities;Self-long term management;Patient/Family/ Caregiver Education;BodyMechanics Training;Functional training;General ConditioningPLAN FOR NEXT VISIT: review HEP, progress to tolerance prn, begin activeexercise program for postural stretching and strengthening with emphasis onneutral spine, review PNE concepts prn and use support materials prn.Patient demonstrates good understanding of plan of care and treatment. Theabove goals and plan of care were discussed and agreed upon by patient/family.SUBJECTIVE: Nora Grande is a 62 year old female seen today for constantpain in spine from neck to low back and down into L hip and buttock. She alsoreports intermittent radicular L LE pain that travels all the way down her leg.She reports that radicular L LE pain has been less since injections in spine.Now it is just in the L hipFunctional Limitations: Functional Limitation CommentsPrior Level of Function: Independent without limitationsPatient Goals: decrease painIntake Information: Prescription presentPrevious Treatment: Injections;Aquatic PTFalls Interview: No positive findings with falls interviewRelevant HistoryMedical Conditions: FibromyalgiaEmployment: Medically DisabledHome EnvironmentPatient Lives With: Self/AloneAssistance Available: PRNAquatic Screen: NoSpine HistorySymptoms Location at Onset: BackSymptoms Since Onset: WorseningPain is Worse Always: On the Move;Bending; Walking;SittingPain is Better Sometimes: (medication)Sleeping Position: Side lying right;Side lying leftSleep Affected by Pain: Pain keeps from falling asleep;Pain awakensPrevious Episodes: YesRed FlagsVertebral Fracture Red Flags: FemaleVertebral Fracture Clinical Reasoning: No identified risk factorsAbdominal Aortic Aneurysm Clinical Reasoning: No identified risk factors.Cancer Red Flags: History of Cancer;Age >50 or <20Cancer Clinical Reasoning: No identified risk factors.Infection Clinical Reasoning: No identified risk factors.Cauda Equina Syndrome Clinical Reasoning: No identified risk factors.Red Flags - CervicalCancer Red Flags: History of Cancer;Age >50 or <20Cancer Clinical Reasoning: No identified risk factors.Infection Clinical Reasoning: No identified risk factors.Pain Score: 5/10Pain Location: Low Back/Lumbar Spine - Left;Hip - LeftDescription: Sharp;Aching; StabbingFrequency: Continuous (but varies in intensity)Post Treatment Pain Score: No ChangePain Location: Low Back/Lumbar Spine - Left;Hip - LeftPost Treatment Pain Description: (no change)OBJECTIVE MEASURES WITH LEVEL OF FUNCTION:Posture / AlignmentPosture: Forward head;Rounded shoulders;Thoracic kyphosisGait AssessmentGait Observation: no significant deviations currentlySensation - LumbarSensation: Grossly IntactLumbar Spine AROMLumbar Flexion: Major limitation;Increased painLumbar Extension: Moderate limitation;Increased painLumbar R Side-Bend: Normal;Increased painLumbar L Side -Bend: Normal;Increased painLumbar R Rotation: Minimal limitation;Increased painLumbar L Rotation: Minimal limitation;Increased painStatic Testing - LumbarSit Slouched: worseSit Erect: betterStand Slouched: worseStand Erect: betterLE StrengthTrunk Strength: Pt's reported functional difficulties, postural deficits,postural weakness, reported chronic history of low back pain with radiculopathyare all indications that she will benefit from increased postural strengthR LE Strength : no asymmetrical myotomal weakness detected LEsL LE Strength: no asymmetrical myotomal weaknessSpecial Tests - Hip and SpineHip and Spine Special Tests: SLR TestSLR Test: Right Positive;Left PositiveEducation:EducationLearning Preferences: Demonstration;Explanation; Performance;Printed MaterialsBarriers: NoneLearning/educational needs: Lifestyle changes;Health promotion;Home exerciseprogram;Plan of Care;Posture;Body MechanicEducation Provided: Yes, see treatment interventions for education providedEducation Provided To: PatientEducation Mode/Type: Demonstration;Explanation/Discussion;Literature/PrintedMaterials; PerformanceResponse to Education/Teach Back: States/Identifies;ReturnDemonstration;Requires Review/ Additional EducationTREATMENT:EvaluationTherapeutic Exercise:1: *prone lying x3 minutes2: *supine isometric abdominal exercise via shoulder extension with 2 secondholds 2x103: *supine LTR 2x104: The proper intensity with all therex emphasized and she was instructed tostop any exercise or activity that causes increased pain or simply decreaseintensity.Skilled Intervention: Patient was educated in proper exercise technique andpurpose for exercises.Reviewed and educated patient on additions/changes for home exercise program asabove (*)Skilled judgment was provided in selection of appropriate interventions.Provided written instruction for home exercise program to facilitate properperformance and compliance.Correct performance of therapeutic exercises was facilitated with verbal andvisual cuing.Therapeutic Activity:1: Postural correction and proper body mechanics instructed and emphasized. Ahandout was provided on postural correction and body mechanics. The role ofposture and body mechanics on her symptoms was instructed using anatomy andprinciples of soft tissue strain as rationale.Skilled Intervention: Instructed on proper lifting and carrying techniques withimportance of core activation.Neuromuscular Re-Education:1: Pain Neuroscience Education:Pain Intro:Patient introduced to the topic of pain neuroscience education and thatimproving knowledge of how pain works promotes improved recovery andrehabilitation. Current knowledge and understanding of patient on pain relatedtopics was explored to create baseline.Sensitive Nerves:Patient educated on the concept of the nervous system as the bodies alarmsystem, and the role of nociception to warn the body of danger. Peripheral nervesensitization, hyperalgesia and allodynia were explained using metaphors topromote deep learning.Homework: Patient encouraged to identify personal yellow flags, andexplore/identify activity limitations as a result of nervous systemhypersensitivity.Calming Sensitive NervesPatient was educated regarding endogenous mechanisms and strategies to increasethe brain?s production of chemicals which decrease pain, such as aerobicexercise and improved pain knowledge. The concepts of pacing, graded exposure,?sore but safe?, and ?hurt does not equal harm? were discussed. Sleep hygieneintroduced to help calm the nervous system and reduce stress.Pain Comes From the BrainPatient was educated on the concept of pain as an output of the brain, includingnociception versus pain, inhibition and facilitation, and threat value usingmetaphors to promote deep learning.Homework: Patient encouraged to recall/record instances where they have hadtissue injury but no pain, such as bruise or cut.Stress Responses to Pain (Lions and stress):Patient was educated regarding sympathetic nervous system topics as they pertainto pain, including stress biology, fight or flight response and multiple outputmechanisms. Metaphors were used to promote deep learning, and the role ofself-care techniques useful in calming the sympathetic nervous system wereaddressed.Emotions and PainPatient educated on the relationship between emotions and pain, and the rolethat fear, catastrophization, nociception and threat play in persistent pain, byactivating the bodies alarm system, resulting in hypersensitive nerves.Metaphors incorporated to foster deep learning and paradigm shift for patient.Skilled Intervention: Patient education as noted.Billing:[facility]: Evaluation - Moderate Complexity (10029)Therapeutic Exercise (81053): 1:1 time: 15 minutes ( 1 unit: 8-22 mins)Therapeutic Activity (30646): 1:1 time: 10 minutes (1 unit: 8-22 mins) Neuromuscular Re-education (30873): 1:1 time:15 minutes (1 unit: 8-22 mins)Total time: 55 minutesBrent Golias, PT --- LESION (CHOOSE SITE) Observed: 08/28/2017 Status: F Source: [place] 12:00 AM [facility] REPOSITORY Patient: NORA GRANDE : 1955 (62/F) Acct Num: [id number] Phys: Alton Mallory DO Unit Num: [id number] Loc: [facility] Specimen: [id number] Received: 08/28/17 9884 Spec Type: Lesion TISSUES TISSUES: Thigh, NOS COMMENT Case has been reviewed in consultation with Dr. Ramirez who concurs with the above diagnosis. IDC:PABLO GROSS DESCRIPTION Received is one container labeled with the patient's name and not further designated. The specimen consists of a round piece of braswell-white skin measuring 0.5 x 0.5 x 0.4 cm. The entire specimen is submitted in one cassette. / SJ:bakari 08/29/17 TC:5 CPT: 11590 HEADER OPERATION: 5 mm punch, nevus right thigh PRE-OP DIAGNOSIS: growing 4 mm scaly nevus right thigh, history melanoma, rule out basal cell TISSUE SUBMITTED: 5 mm punch, nevus right thigh MICROSCOPIC DESCRIPTION Slides are reviewed. MICROSCOPIC DIAGNOSIS Skin lesion, right thigh, punch biopsy: Verrucous keratosis. AM:bakari 09/01/17 Signed Paul Terry 09/01/17 <signature on file> Performed By: #### PLES ####[facility] [id number] [place], [address] OBSOLETE Observed: 07/28/2017 Status: COMPLETED Source: [place] 12:00 AM [facility] [place] [facility]IT[facility]NORA GRANDE ([id number]) 1955 FDate Time Provider Sdhhlzenjj60/11/17 MONI GASTON During your visit today, we recorded the following information about you:Radha Mora DAVID 07/28/2017 11:04 AM SignedLast office visit with Dr. Gaston: 11/27/2016Next appt scheduled: 10/22/2017Last refill Klonopin 1mg, x30 tablets, 1 refills, take 1 tablet at bedtime,written: 03/28/2017Vanesa Cui RN, RN 07/28/2017 2:23 PM SignedThe following prescriptions have been called to [id number] pharmacy 07/28/2017at 2:19 PM by Vanesa Cui, TOMY. I left a message on the pharmacy voicemail.Signed Prescriptions Disp Refills clonazePAM (KLONOPIN) 1 mg tablet 30 tablet 1 Sig: Take 1 tablet by mouth daily at bedtime. JOSHUA Class : C-IV KAY: No Authorizing Provider: MONI GASTON As of Date: 07/28/2017 Noted Allergy ReactionCIPROFLOXACIN 11/04/2013 8 - GI Upset 11 - Vomiting Comments: DizzinessCODEINE 02/12/2011 4 - Hives 9 - Itching Comments: Generalized.Date Reviewed: 07/02/2017Reviewed by: Lilian Jacome Ma - Fully AssessedReason for Visit: Refill Request [94]Primary Visit Diagnosis:Psychophysiological insomnia [F51.04]Order(s):clonazePAM ( KLONOPIN) 1 mg tabletTake 1 tablet by mouth daily at bedtime.Disp: 30 tabletRfl: 1Prescriptions as of 07/28/2017 Sig: CLONAZEPAM 1 MG TABLET Take 1 tablet by mouth daily * BUPROPION HCL SR 150 MG TABLE* TAKE 1 TABLET BY MOUTH TWICE * TIZANIDINE 4 MG TABLET Take 1 tablet by mouth twice * ORPHENADRINE CITRATE ER 100 M* Take 1 tablet by mouth twice * PREGABALIN 150 MG CAPSULE Take 1 capsule by mouth three* LIDOCAINE 5 % TOPICAL PATCH Apply 1 Patch as directed onc* QUETIAPINE 100 MG TABLET Take 1 tablet by mouth once d* OXYCODONE-ACETAMINOPHEN 5 MG-* Take 1-2 tablets by mouth shanice* BREO ELLIPTA INHALATION Inhale as instructed once da * INCRUSE ELLIPTA INHALATION Inhale as instructed once da* TRIAMCINOLONE ACETONIDE 0.1 % * Apply 1 application to affect* NYSTATIN 100,000 UNIT/GRAM TO* apply twice daily to affected* DULOXETINE 60 MG CAPSULE,AFLRED* Take 1 capsule by mouth once * HYDROXYZINE HCL 25 MG TABLET Take 1 tablet by mouth every * CAPSAICIN 0.025 % TOPICAL CRE* Apply to soles of feet as nee* COMPOUNDED PRESCRIPTION DuaL Gabapentin 6% diclofenac* HYDROCHLOROTHIAZIDE 25 MG TAB* Take 1 tablet by mouth once d* CPAP CPAP 11 cmH2O, suitable mask,* PEDIATRIC MULTIVITAMIN GUMMY * Take 2 tablets by mouth once * ONDANSETRON HCL 4 MG TABLET Take 1 tablet by mouth every * ASPIRIN 81 MG TABLET,DELAYED * Take 81 mg by mouth once sylvia* DICLOFENAC 1 % TOPICAL GEL Apply 2 g to affected area th* ESTRADIOL 0.01% (0.1 MG/GRAM)* Use vaginally twice weekly ON*Problem List As Of Date 07/28/2017 Noted Resolved Routine general medical examination at a [facility]*INVALID FOR*12/22/2012 Priority: A Class: Chronic More... Routine gynecological examination [Z01.419] INVALID FOR*12/22/2012 Priority: B Class: Chronic Fibromyalgia [M79.7] INVALID FOR* More... 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 Encounter for screening colonoscopy [Z12.11] INVALID FOR* HTN (hypertension) [I10] INVALID FOR* More... Psychophysiological insomnia [F51.04] INVALID FOR* Depression [F32.9] INVALID FOR* JORGE (obstructive sleep apnea) RDI 67 CMS AHI *INVALID FOR* Lumbago [M54.5] INVALID FOR* DDD (degenerative disc disease), lumbar [M51.36]INVALID FOR* Cervical spondylosis without myelopathy [M47.81*INVALID FOR* Cervicalgia [M54.2] INVALID FOR* Abnormal echocardiogram [R93.1] INVALID FOR* More... 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 Radiculopathy, lumbar region [M54.16] INVALID FOR* More...Prescriptions ordered this encounter Disp Refills Start End CLONAZEPAM 1 MG TABLET 30 t* 1 07/28/2017 Class: Call Rx Route: ORAL Sig: Take 1 tablet by mouth daily at bedtime.Medications Discontinued During This Encounter clonazePAM (KLONOPIN) 1 mg tablet 30 t * 1 03/28/2017 07/28/2017 Class: Call Rx Cmt: Not to exceed 4 additional fills before . Sig: TAKE 1 TABLET AT BEDTIME Disc: Reason for discontinue is not on file. Status:Closed by MD MONI GASTON on 07/28/17 OBSOLETE Observed: 07/15/2017 Status: COMPLETED Source: [place] 12:00 AM [facility] [place] REPOSITORY Refill ([facility]) ---------NORA GRANDE ([id number]) 1955 [facility] Time Provider Lgtyndrdfs00/28/17 MONI GASTON During your visit today, we recorded the following information about you:Rosie Grande RN, RN 07/15/2017 11:49 AM SignedPatient phones requesting refills as follows:Pending Prescriptions Disp Refills CLONAZEPAM 1 MG TABLET 30 tablet 1 Sig: Take 1 tablet by mouth daily at bedtime. JOSHUA Class: C-IV KAY: No Please review and advise.Jihan Calvillo As of Date: 07/15/2017 Noted Allergy ReactionCIPROFLOXACIN 11/04/2013 8 - GI Upset 11 - Vomiting Comments: DizzinessCODEINE 02/12/2011 4 - Hives 9 - Itching Comments: Generalized.Date Reviewed: 07/02/2017Reviewed by: Lilian Jacome Ma - Fully AssessedReason for Visit: Refill Request [94]Prescriptions as of 2016 Sig: BUPROPION HCL SR 150 MG TABLE* TAKE 1 TABLET BY MOUTH TWICE * TIZANIDINE 4 MG TABLET Take 1 tablet by mouth twice * ORPHENADRINE CITRATE ER 100 M* Take 1 tablet by mouth twice * PREGABALIN 150 MG CAPSULE Take 1 capsule by mouth three* LIDOCAINE 5 % TOPICAL PATCH Apply 1 Patch as directed onc* CLONAZEPAM 1 MG TABLET TAKE 1 TABLET AT BEDTIME QUETIAPINE 100 MG TABLET Take 1 tablet by mouth once d* OXYCODONE-ACETAMINOPHEN 5 MG-* Take 1-2 tablets by mouth shanice* BREO ELLIPTA INHALATION Inhale as instructed once da* INCRUSE ELLIPTA INHALATION Inhale as instructed once da* TRIAMCINOLONE ACETONIDE 0.1 %* Apply 1 application to affect* NYSTATIN 100,000 UNIT/GRAM TO* apply twice daily to affected* DULOXETINE 60 MG CAPSULE,ALFRED* Take 1 capsule by mouth once * HYDROXYZINE HCL 25 MG TABLET Take 1 tablet by mouth every * CAPSAICIN 0.025 % TOPICAL CRE* Apply to soles of feet as nee* COMPOUNDED PRESCRIPTION DuaL Gabapentin 6% diclofenac* HYDROCHLOROTHIAZIDE 25 MG TAB* Take 1 tablet by mouth once d* CPAP CPAP 11 cmH2O, suitable mask,* PEDIATRIC MULTIVITAMIN GUMMY * Take 2 tablets by mouth once * ONDANSETRON HCL 4 MG TABLET Take 1 tablet by mouth every * ASPIRIN 81 MG TABLET,DELAYED * Take 81 mg by mouth once sylvia* DICLOFENAC 1 % TOPICAL GEL Apply 2 g to affected area th* ESTRADIOL 0.01% (0.1 MG/GRAM)* Use vaginally twice weekly ON*Problem List As Of Date 07/15/2017 Noted Resolved Routine general medical examination at a health* INVALID FOR*12/22/2012 Priority: A Class: Chronic More... Routine gynecological examination [Z01.419] INVALID FOR*12/22/2012 Priority: B Class: Chronic Fibromyalgia [M79.7] INVALID FOR* More... 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 Encounter for screening colonoscopy [Z12.11] INVALID FOR* HTN (hypertension ) [I10] INVALID FOR* More... Psychophysiological insomnia [F51.04] INVALID FOR* Depression [F32.9] INVALID FOR* JORGE (obstructive sleep apnea ) RDI 67 CMS AHI *INVALID FOR* Lumbago [M54.5] INVALID FOR* DDD (degenerative disc disease), lumbar [M51.36]INVALID FOR* Cervical spondylosis without myelopathy [M47.81*INVALID FOR* Cervicalgia [M54.2] INVALID FOR* Abnormal echocardiogram [R93.1] INVALID FOR* More... 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 Radiculopathy, lumbar region [M54.16] INVALID FOR* More... Status:Closed by MD MONI GASTON on 07/16/17 OBSOLETE Observed: 07/10/2017 Status: COMPLETED Source: [place] 12:00 AM [facility] [place] REPOSITORY Refill (NEMOWS) ---------NORA GRANDE ([id number]) 1955 [facility] Time Provider Weajzpfvxy88/23/17 ESCOBAR PLUNKETT ([facility]) NEMJOSE During your visit today, we recorded the following information about you:Doreen Simon 07/11/2017 11:11 AM SignedLOV: 11/27/16F/ U: not scheduled. 05/21/17 (no showed)Impression:Obstructive sleep apneaBipolar disorder under other psychiatric carePsychophysiological insomina?Actions taken:?Motivational Interviewing aspectstaken?engage?Medications, allergies, hx Reviewed:?yes?OARRS Aspect:?Not today. ???Revies??Plan:Psych meds through Dr. Mallory (including Clonopin eventually)Continue CPAP??Follow up 6 month. .??Davey Harper, BLAIR 07/11/2017 11:58 AM SignedApproved. Needs to schedule f/u.Doreen Simon 07/11/2017 1: 23 PM SignedLeft detailed msg to schedule f/u, number providedAllergies As of Date: 07/10/2017 Noted Allergy ReactionCIPROFLOXACIN 11/04/2013 8 - GI Upset 11 - Vomiting Comments: DizzinessCODEINE 02/12/2011 4 - Hives 9 - Itching Comments: Generalized.Date Reviewed: 07/02/2017Reviewed by: Lilian Jacome Ma - Fully AssessedReason for Visit: Refill Request [94]Order(s):buPROPion SR (ZYBAN SR; WELLBUTRIN SR) 150 mg 12 hr tabletTAKE 1 TABLET BY MOUTH TWICE DAILYDisp: 60 tabletRfl: 1Prescriptions as of 07/10/2017 Sig: BUPROPION HCL SR 150 MG TABLE* TAKE 1 TABLET BY MOUTH TWICE * TIZANIDINE 4 MG TABLET Take 1 tablet by mouth twice * ORPHENADRINE CITRATE ER 100 M* Take 1 tablet by mouth twice * PREGABALIN 150 MG CAPSULE Take 1 capsule by mouth three* LIDOCAINE 5 % TOPICAL PATCH Apply 1 Patch as directed onc* CLONAZEPAM 1 MG TABLET TAKE 1 TABLET AT BEDTIME QUETIAPINE 100 MG TABLET Take 1 tablet by mouth once d* OXYCODONE-ACETAMINOPHEN 5 MG-* Take 1-2 tablets by mouth shanice* BREO ELLIPTA INHALATION Inhale as instructed once da* INCRUSE ELLIPTA INHALATION Inhale as instructed once da* TRIAMCINOLONE ACETONIDE 0.1 %* Apply 1 application to affect* NYSTATIN 100,000 UNIT/GRAM TO* apply twice daily to affected* DULOXETINE 60 MG CAPSULE,ALFRED* Take 1 capsule by mouth once * HYDROXYZINE HCL 25 MG TABLET Take 1 tablet by mouth every * CAPSAICIN 0.025 % TOPICAL CRE* Apply to soles of feet as nee* COMPOUNDED PRESCRIPTION DuaL Gabapentin 6% diclofenac* HYDROCHLOROTHIAZIDE 25 MG TAB* Take 1 tablet by mouth once d* CPAP CPAP 11 cmH2O, suitable mask,* PEDIATRIC MULTIVITAMIN GUMMY * Take 2 tablets by mouth once * ONDANSETRON HCL 4 MG TABLET Take 1 tablet by mouth every * ASPIRIN 81 MG TABLET,DELAYED * Take 81 mg by mouth once sylvia* DICLOFENAC 1 % TOPICAL GEL Apply 2 g to affected area th* ESTRADIOL 0.01% (0.1 MG/GRAM)* Use vaginally twice weekly ON*Problem List As Of Date 07/10/2017 Noted Resolved Routine general medical examination at a [facility]* INVALID FOR*12/22/2012 Priority: A Class: Chronic More... Routine gynecological examination [Z01.419] INVALID FOR*12/22/2012 Priority: B Class: Chronic Fibromyalgia [M79.7] INVALID FOR* More... 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 Encounter for screening colonoscopy [Z12.11] INVALID FOR* HTN (hypertension ) [I10] INVALID FOR* More... Psychophysiological insomnia [F51.04] INVALID FOR* Depression [F32.9] INVALID FOR* JORGE (obstructive sleep apnea ) RDI 67 CMS AHI *INVALID FOR* Lumbago [M54.5] INVALID FOR* DDD (degenerative disc disease), lumbar [M51.36]INVALID FOR* Cervical spondylosis without myelopathy [M47.81*INVALID FOR* Cervicalgia [M54.2] INVALID FOR* Abnormal echocardiogram [R93.1] INVALID FOR* More... 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 Radiculopathy, lumbar region [M54.16] INVALID FOR* More...Prescriptions ordered this encounter Disp Refills Start End BUPROPION HCL SR 150 MG TABLET,12 HR* 60 t* 1 07/11/2017 Sig: TAKE 1 TABLET BY MOUTH TWICE DAILYMedications Discontinued During This Encounter buPROPion SR (ZYBAN SR; WELLBUTRIN S* 60 t* 1 04/23/2017 07/11/2017 Sig: TAKE 1 TABLET TWICE DAILY Disc: Reason for discontinue is not on file. Status:Closed by AMPARO GOLDSTEIN on 07/11/17 PROGRESS Observed: 07/02/2017 Status: COMPLETED Source: [place] 12:12 PM [facility] OTHER CAMPUS REPOSITORY HNO ID: [id number]: Mirella (Ct) Kaley, CTService: (none)Author Type: Clinical TechnicianType: Progress NotesFiled: 07/02/2017 12: 12 PMNote Text:NAME:Nora GrandeDATE: July 02, 2017CCF#: [id number] Extremity X-Ray(s): Knee, AP / LAT/ OBLIQUES Right COMPLETEDTECH ID SIGN: MIRELLA LOMAX XR KNEE 4V AP/LAT/OBLS Observed: 07/02/2017 Status: F Source: [place] RT 10:12 AM [facility] OTHER CAMPUS REPOSITORY * * *Final Report* * *DATE OF EXAM: Jul 02 2017 10:12AM TIMMY 5205 - XR KNEE 4V AP/LAT/OBLS RT / REASON: M25.561-Pain in right knee * * * * Physician Interpretation * * * * PROCEDURE: Right kneeINDICATION: Pain in right knee .TECHNIQUE: XR KNEE 4V AP/LAT/OBLS RTCOMPARISON: NoneFINDINGS:No fractures or dislocations are seen. No joint effusion or joint body is evident. There is slight medial joint compartment narrowing with associated marginal spur formation. Soft tissues are unremarkable.IMPRESSION: Mild medial joint compartment osteoarthrosisTranscriptionist: APPLE Transcribe Date/ Time: Jul 02 2017 3:19PDictated by : GYPSY PAULINO MDThis examination was interpreted and the report reviewed and electronically signed by: GYPSY PAULINO MD on Jul 02 2017 3:20PM [id number] PROGRESS Observed: 07/02/2017 Status: COMPLETED Source: [place] 9:24 AM [facility] [place] REPOSITORY HNO ID: [id number]: Zachary Hammonde: (none)Author Type: PhysicianType: Progress NotesFiled: 07/02/2017 12:17 PMNote Text:AU PAIN MANAGEMENT OFFICE NOTEDATE: July 02, 2017Chief Complaint: chronic lower back SUBJECTIVE:Ms. Grande [facility] to the [facility] ([facility]) office for afollow up appointment regarding chronic lower back pain. She states thatsince the last visit symptoms have been worsening. The pain is located inthe lower back lumbar region and radiates upper and lower back. The painis described as aching, excruciating, radiating, sharp, throbbing andspasms and is rated as 6 on a scale of 0-10. The patient Reports morningstiffness, leg pain and leg weakness. Symptoms interfere with physicalactivity, work, sexual relations, walking, sleeping, sitting, bathing,driving, cooking, household cleaning, reaching for shelves, lifting andsocial activities. The pain is exacerbated by sitting, standing, gettingup from sitting, lying down and walking. The pain is mitigated by unableto pinpoint positions/factors that are mitigating. The patient is overallimproved with the injections by 30%.She is currently receiving medications through the [facility]. She is not havingdifficulty with her [facility] medications. The medications are partiallyeffective. The patient states the last dose of .Lyrica/pregabalin was taken at July 02, 2017.REVIEW OF SYSTEMS:Constitutional:(-) Fever(-) Night Sweats(-) Weight Gain(-) Weight Loss(-) Fatigue Cardiovascular:(-) Chest Pain(-) Palpitations(-) Lightheadedness(-) Swelling of Ankles(-) Hx Heart SurgeryRespiratory:(-) Shortness of Breath(-) Cough(-) Wheezing(-) Snoring Gastrointestinal:(-) Incontinence(-) Abdominal Pain(-) Diarrhea(-) Constipation(-) Nausea/Vomiting(-) Heart BurnEndocrine:(-) Thyroid Disorder(-) Diabetes Hematologic:(-) Prolonged Bleeding(-) Easy BruisingGenitourinary:(-) Incontinence(-) Frequency(-) Urinary Urgency Skin:(- ) Rashes(+) Itching ) (-)Other LesionsNeurologic:(-) Headache(-) Double Vision(-) Confusion(-) Paralysis Psychiatric:(+) Depression(+) Anxiety(-) Delusions(-) Hallucinations( -) Personal History of Alcohol or Substance Abuse(-) Family History of Alcohol or Substance Abuse PAST MEDICAL HISTORYDiagnosis Date- Abnormal echocardiogram 10/18/2016 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 (11/2015)- Abnormal Pap smear- COPD (chronic obstructive pulmonary disease) (HCC)- Fibromyalgia- Other and unspecified ovarian cyst Ovarian cyst- Patent foramen ovale 07/19/2014- Skin cancer- Tobacco use- Tobacco use disorder, continuous 07/19/2014- Urinary tract infectionPAST SURGICAL HISTORYProcedure Laterality Date- CARPAL TUNNEL 1980s bilateral- COLONOSCOP W/ OR W/O BRSH SPEC 11/23/14 Colonoscopy- PAST SURGICAL HISTORY OF Bilateral foot surgeries-neuromas- TOTAL ABDOM HYSTERECTOMY 1980s Hysterectomy, SAGE Cysts on ovaries,ALLERGIESAllergen Reactions- Ciprofloxacin GI Upset, Vomiting Dizziness- Codeine Hives, Itching Generalized.Current Outpatient Prescriptions:buPROPion SR (ZYBAN SR; WELLBUTRIN SR) 150 mg 12 hr tablet TAKE 1 TABLETTWICE DAILYlidocaine (LIDODERM) 5 % Apply 1 Patch as directed once daily. TO AFFECTEDAREA. REMOVE AFTER 12 HOURS.clonazePAM (KLONOPIN) 1 mg tablet TAKE 1 TABLET AT BEDTIMEQUEtiapine (SEROQUEL) 100 mg tablet Take 1 tablet by mouth once daily. DrStutzmanFLUTICASONE/VILANTEROL (BREO ELLIPTA INHALATION) Inhale as instructedonce daily.UMECLIDINIUM BROMIDE (INCRUSE ELLIPTA INHALATION) Inhale as instructedonce daily.triamcinolone acetonide (KENALOG) 0.1 % cream Apply 1 application toaffected area twice daily.nystatin (MYCOSTATIN) cream apply twice daily to affected area/ skin rash.hydrOXYzine HCl (ATARAX) 25 mg tablet Take 1 tablet by mouth every 6 hoursas needed.capsaicin (ZOSTRIX) 0.025 % cream Apply to soles of feet as needed forburning sensation.COMPOUNDED PRESCRIPTION DuaL Gabapentin 6% diclofenac 3% (M) cream .Apply 2-4 pumps to affected area (bilateral hips) 3-4 times per day.hydrochlorothiazide (HYDRODIURIL, ESIDRIX) 25 mg tablet Take 1 tablet bymouth once daily.CPAP CPAP 11 cmH2O, suitable mask, tubing, humidifier, filters. Lifetimesupplies. Dx: 327.23 - Obstructive sleep apneapediatric multivitamin gummy without iron (JENNIFER DOO) chew chewabletablet Take 2 tablets by mouth once daily.aspirin, enteric coated (ASPIRIN, ENTERIC COATED) 81 mg EC tablet Take 81mg by mouth once daily.Diclofenac Sodium (VOLTAREN) 1 % gel Apply 2 g to affected area threetimes daily.estradiol (ESTRACE) 0.01 % (0.1 mg/gram) vaginal cream Use vaginally twiceweekly ONE GRAMoxyCODONE-acetaminophen (PERCOCET) 5-325 mg tablet Take 1-2 tablets bymouth every 6 hours as needed for Pain.DULoxetine (CYMBALTA) 60 mg capsule Take 1 capsule by mouth once daily.ondansetron (ZOFRAN) 4 mg tablet Take 1 tablet by mouth every 8 hours asneeded.No current facility-administered medications for this visit.I have reviewed the nurses notes and I am aware of the family/ socialhistory.Since the last evaluation the medical history has not changed.PHYSICAL EXAMINATION: Vitals: Pulse 70 Wt 121 lb 4.8 oz (55.0kg) SpO2 99%Performed in conjunction with observation.The patient is alert and oriented x3.The patient is in no acute distress.Station and Gait: Normal stance, normal gait.Lungs: normal respiratory rate and rhythm.Cardiovascular: regular rate.Neck: Supple. The range of motion is intact.Back: Range of motion of the trunk was generally intact.Spine: Tenderness at lumbar- sacral region with positive facet loadingExtremities: no reported edema or erythema. Tenderness at right medialknee, normal ROMMotor: Exhibits full strength in all four extremities.ASSESSMENT:Pt reports acute right knee pain on the medial side. No injury. Pt has nothad an xray and will order one todayPt reports lower back pain with left LE lateral sxs. She had a left L5-S1TFSI on 06-24-17 and reports the lateral radicular sxs have resolved. Todayback pain is radiating into the left hip. After reviewing MRI from 2016would recommend a bilateral L4,5,S1 facet. Pt would like to hold off oninjections at this time.Pt is currently taking baclofen 10 mg BID and Lyrica 100 mg TID andreports less efficacy. Will stop baclofen and trial Norflex 100 mg BID andincrease Lyrica from 100 mg to 150 mg TID. Discussed SEs.Encounter Diagnosis ICD-10-CM1. Acute pain of right knee M25.5612. DDD (degenerative disc disease), lumbar M51.363. 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 Radiculopathy, lumbar region M54.165. Fibromyalgia M79.76. Cervical spondylosis without myelopathy M47.8127. Cervicalgia M54.2OARRS website checked and validated. All prescriptions have beenAPPROPRIATELY filled. No suspicious activity was identified.- 07/02/2017by Lilian Rouse Agreement reviewed and signed?: N/A on July 02, 2017The pain panel was N/APLAN:Prior available imaging studies were reviewed. Findings were discussed.Injection history was reviewed. Medication use and compliance werereviewed.1. Continue medication management through the [facility]2. Stop baclofen and trial norflex Increase Lyrica from 100 mg to 150 mg TIDSigned Prescriptions Disp Refills orphenadrine ER (NORFLEX) 100 mg tablet 60 tablet 1 Sig: Take 1 tablet by mouth twice daily. pregabalin (LYRICA) 150 mg capsule 90 capsule 1 Sig: Take 1 capsule by mouth three times daily. JOSHUA Class: C-V3. Ordered right knee xray3. Interventional procedure options discussed. Consider bilateral L4,5,E1yzpro. Pt would like to hold off at this time4. Order placed for PT to strengthen and condition the lower back5. F/U in 2 monthsThe treatment plan was discussed with the patient during the office visitand they verbalized an understanding of it.Zachary Bauman, [facility]: Dr. Alton Mallory, DOcc: SELFPhone: N/AFax:Results of consultation to be transmitted via electronic medical recordfor those providers who practice within [facility] or with access to [employer] via [employer], or via letter. CNOV Observed: 07/02/2017 Status: COMPLETED Source: [place] 9:20 AM [facility] [place] REPOSITORY Office Visit (PNMDNA) ---------NORA GRANDE ([id number]) 1955 FDate Time Provider Dobslhioob80/15/17 9:20 AM ZACHARY BAUMAN During your visit today, we recorded the following information about you: Pulse Weight 70/minute 55 kgPaul Samina Bauman MD 07/02/2017 12:17 PM SignedMEDINA PAIN MANAGEMENT OFFICE NOTEDATE: JuneChief Complaint: chronic lower back SUBJECTIVE:Ms. Grande presents to [facility] ([facility] office for a followup appointment regarding chronic lower back pain. She states that since thelast visit symptoms have been worsening. The pain is located in the lower backlumbar region and radiates upper and lower back. The pain is described asaching, excruciating, radiating, sharp, throbbing and spasms and is rated as 6on a scale of 0-10. The patient Reports morning stiffness, leg pain and legweakness. Symptoms interfere with physical activity, work, sexual relations,walking, sleeping, sitting, bathing, driving, cooking, household cleaning,reaching for shelves, lifting and social activities. The pain is exacerbated bysitting, standing, getting up from sitting, lying down and walking. The pain ismitigated by unable to pinpoint positions/factors that are mitigating. Thepatient is overall improved with the injections by 30%.She is currently receiving medications through the [facility]. She is not havingdifficulty with her [facility] medications. The medications are partially effective. The patient states the last dose of .Lyrica/pregabalin was taken at July 02, 2017.REVIEW OF SYSTEMS:Constitutional:(-) Fever(-) Night Sweats(-) Weight Gain(-) Weight Loss(-) Fatigue Cardiovascular:(-) Chest Pain(-) Palpitations(-) Lightheadedness(-) Swelling of Ankles(-) Hx Heart SurgeryRespiratory:(-) Shortness of Breath(-) Cough(-) Wheezing(-) Snoring Gastrointestinal:(-) Incontinence(-) Abdominal Pain(-) Diarrhea(-) Constipation (-) Nausea/Vomiting(-) Heart BurnEndocrine:(-) Thyroid Disorder(-) Diabetes Hematologic:(-) Prolonged Bleeding(-) Easy BruisingGenitourinary:(-) Incontinence(-) Frequency(-) Urinary Urgency Skin:(- ) Rashes(+) Itching ) (-)Other LesionsNeurologic:(-) Headache(-) Double Vision(-) Confusion(-) Paralysis Psychiatric:(+) Depression(+) Anxiety(-) Delusions(-) Hallucinations(-) Personal History of Alcohol or Substance Abuse(-) Family History of Alcohol or Substance Abuse PAST MEDICAL HISTORYDiagnosis Date- Abnormal echocardiogram 10/18/2016 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 (11/2015)- Abnormal Pap smear- COPD (chronic obstructive pulmonary disease) (HCC)- Fibromyalgia- Other and unspecified ovarian cyst Ovarian cyst- Patent foramen ovale 07/19/2014- Skin cancer- Tobacco use- Tobacco use disorder, continuous 07/19/2014- Urinary tract infectionPAST SURGICAL HISTORYProcedure Laterality Date- CARPAL TUNNEL 1980s bilateral- COLONOSCOP W/ OR W/O BRSH SPEC 11/23/14 Colonoscopy- PAST SURGICAL HISTORY OF Bilateral foot surgeries-neuromas- TOTAL ABDOM HYSTERECTOMY 1980s Hysterectomy, SAGE Cysts on ovaries,ALLERGIESAllergen Reactions- Ciprofloxacin GI Upset, Vomiting Dizziness- Codeine Hives, Itching Generalized.Current Outpatient Prescriptions:buPROPion SR (ZYBAN SR; WELLBUTRIN SR) 150 mg 12 hr tablet TAKE 1 TABLET TWICEDAILYlidocaine (LIDODERM) 5 % Apply 1 Patch as directed once daily. TO AFFECTEDAREA. REMOVE AFTER 12 HOURS.clonazePAM (KLONOPIN) 1 mg tablet TAKE 1 TABLET AT BEDTIMEQUEtiapine (SEROQUEL) 100 mg tablet Take 1 tablet by mouth once daily. DrStutzmanFLUTICASONE/VILANTEROL (BREO ELLIPTA INHALATION) Inhale as instructed oncedaily.UMECLIDINIUM BROMIDE (INCRUSE ELLIPTA INHALATION) Inhale as instructed oncedaily.triamcinolone acetonide (KENALOG) 0.1 % cream Apply 1 application to affectedarea twice daily.nystatin ( MYCOSTATIN) cream apply twice daily to affected area/ skin rash.hydrOXYzine HCl (ATARAX) 25 mg tablet Take 1 tablet by mouth every 6 hours asneeded.capsaicin (ZOSTRIX) 0.025 % cream Apply to soles of feet as needed for burningsensation.COMPOUNDED PRESCRIPTION DuaL Gabapentin 6% diclofenac 3% (M) cream . Apply 2-4pumps to affected area (bilateral hips) 3-4 times per day.hydrochlorothiazide ( HYDRODIURIL, ESIDRIX) 25 mg tablet Take 1 tablet by mouthonce daily.CPAP CPAP 11 cmH2O, suitable mask, tubing, humidifier, filters. Lifetimesupplies. Dx: 327.23 - Obstructive sleep apneapediatric multivitamin gummy without iron (JENNIFER DOO) chew chewable tabletTake 2 tablets by mouth once daily.aspirin, enteric coated (ASPIRIN, ENTERIC COATED) 81 mg EC tablet Take 81 mg bymouth once daily.Diclofenac Sodium ( VOLTAREN) 1 % gel Apply 2 g to affected area three timesdaily.estradiol (ESTRACE) 0.01 % (0.1 mg/gram) vaginal cream Use vaginally twiceweekly ONE GRAMoxyCODONE-acetaminophen (PERCOCET) 5-325 mg tablet Take 1- 2 tablets by mouthevery 6 hours as needed for Pain.DULoxetine (CYMBALTA) 60 mg capsule Take 1 capsule by mouth once daily.ondansetron (ZOFRAN) 4 mg tablet Take 1 tablet by mouth every 8 hours asneeded.No current facility-administered medications for this visit.I have reviewed the nurses notes and I am aware of the family/social history.Since the last evaluation the medical history has not changed.PHYSICAL EXAMINATION:Vitals: Pulse 70 Wt 121 lb 4.8 oz (55.0kg) SpO2 99%Performed in conjunction with observation.The patient is alert and oriented x3.The patient is in no acute distress.Station and Gait: Normal stance, normal gait.Lungs: normal respiratory rate and rhythm.Cardiovascular: regular rate.Neck: Supple. The range of motion is intact.Back: Range of motion of the trunk was generally intact.Spine: Tenderness at lumbar-sacral region with positive facet loadingExtremities: no reported edema or erythema. Tenderness at right medial knee,normal ROMMotor: Exhibits full strength in all four extremities.ASSESSMENT:Pt reports acute right knee pain on the medial side. No injury. Pt has not hadan xray and will order one todayPt reports lower back pain with left LE lateral sxs. She had a left L5-S1 TFSIon 06-24-17 and reports the lateral radicular sxs have resolved. Today back painis radiating into the left hip. After reviewing MRI from 2016 would recommend abilateral L4,5,S1 facet. Pt would like to hold off on injections at this time.Pt is currently taking baclofen 10 mg BID and Lyrica 100 mg TID and reportsless efficacy. Will stop baclofen and trial Norflex 100 mg BID and increaseLyrica from 100 mg to 150 mg TID. Discussed SEs.Encounter Diagnosis ICD-10-CM1. Acute pain of right knee M25.5612. DDD (degenerative disc disease), lumbar M51.363. 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 Radiculopathy, lumbar region M54.165. Fibromyalgia M79.76. Cervical spondylosis without myelopathy M47.8127. Cervicalgia M54.2OARRS website checked and validated. All prescriptions have been APPROPRIATELYfilled. No suspicious activity was identified.- 07/02/2017 by Lilian Rouse Agreement reviewed and signed?: N/A on July 02, 2017The pain panel was N/ APLAN:Prior available imaging studies were reviewed. Findings were discussed.Injection history was reviewed. Medication use and compliance were reviewed.1. Continue medication management through the [facility]2. Stop baclofen and trial norflex Increase Lyrica from 100 mg to 150 mg TIDSigned Prescriptions Disp Refills orphenadrine ER (NORFLEX) 100 mg tablet 60 tablet 1 Sig: Take 1 tablet by mouth twice daily. pregabalin (LYRICA) 150 mg capsule 90 capsule 1 Sig: Take 1 capsule by mouth three times daily. JOSHUA Class: C-V3. Ordered right knee xray3. Interventional procedure options discussed. Consider bilateral L4,5,L2tasqq. Pt would like to hold off at this time4. Order placed for PT to strengthen and condition the lower back5. F/U in 2 monthsThe treatment plan was discussed with the patient during the office visit andthey verbalized an understanding of it.Zachary Bauman, [facility] [place]: Dr. Alton Mallory, DOcc: SELFPhone: N/AFax:Results of consultation to be transmitted via electronic medical record forthose providers who practice within [facility] or with access to [employer] via [employer],or via letter.Referring Provider: SELF [[id number]]Allergies As of Date: 07/02/2017 Noted Allergy ReactionCIPROFLOXACIN 11/04/2013 8 - GI Upset 11 - Vomiting Comments: DizzinessCODEINE 02/12/2011 4 - Hives 9 - Itching Comments: Generalized.Date Reviewed: 07/02/2017Reviewed by: Lilian Jacome Ma - Fully AssessedReason for Visit: Established Patient [175] Cmt: 3 Follow upPrimary Visit Diagnosis:Acute pain of right knee [M25.561] Other Visit Diagnoses:DDD ( degenerative disc disease), lumbar [M51.36] 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] Radiculopathy, lumbar region [ M54.16] Fibromyalgia [M79.7] Cervical spondylosis without myelopathy [M47.812] Cervicalgia [M54.2]Order(s):XR KNEE INJURY 4V AP/LAT/OBLS RT [ [id number]] Order #: [id number] FUTURE orphenadrine ER (NORFLEX) 100 mg tabletTake 1 tablet by mouth twice daily.Disp: 60 tabletRfl: 1 CONSULT TO PHYSICAL THERAPY [9032] Order # : [id number]: 1 pregabalin (LYRICA) 150 mg capsuleTake 1 capsule by mouth three times daily.Disp: 90 capsuleRfl: 1Prescriptions as of 07/02/2017 Sig: BUPROPION HCL SR 150 MG TABLE* TAKE 1 TABLET TWICE DAILY LIDOCAINE 5 % TOPICAL PATCH Apply 1 Patch as directed onc* CLONAZEPAM 1 MG TABLET TAKE 1 TABLET AT BEDTIME QUETIAPINE 100 MG TABLET Take 1 tablet by mouth once d* BREO ELLIPTA INHALATION Inhale as instructed once da* INCRUSE ELLIPTA INHALATION Inhale as instructed once da* TRIAMCINOLONE ACETONIDE 0.1 %* Apply 1 application to affect* NYSTATIN 100,000 UNIT/GRAM TO* apply twice daily to affected* HYDROXYZINE HCL 25 MG TABLET Take 1 tablet by mouth every * CAPSAICIN 0.025 % TOPICAL CRE* Apply to soles of feet as nee* COMPOUNDED PRESCRIPTION DuaL Gabapentin 6% diclofenac* HYDROCHLOROTHIAZIDE 25 MG TAB* Take 1 tablet by mouth once d* CPAP CPAP 11 cmH2O, suitable mask, * PEDIATRIC MULTIVITAMIN GUMMY * Take 2 tablets by mouth once * ASPIRIN 81 MG TABLET, DELAYED * Take 81 mg by mouth once sylvia* DICLOFENAC 1 % TOPICAL GEL Apply 2 g to affected area th* ESTRADIOL 0.01% (0.1 MG/GRAM)* Use vaginally twice weekly ON* ORPHENADRINE CITRATE ER 100 M * Take 1 tablet by mouth twice * PREGABALIN 150 MG CAPSULE Take 1 capsule by mouth three* OXYCODONE-ACETAMINOPHEN 5 MG-* Take 1-2 tablets by mouth shanice* DULOXETINE 60 MG CAPSULE,ALFRED* Take 1 capsule by mouth once * ONDANSETRON HCL 4 MG TABLET Take 1 tablet by mouth every *Problem List As Of Date 07/02/2017 Noted Resolved Routine general medical examination at a [facility]* INVALID FOR*12/22/2012 Priority: A Class: Chronic More... Routine gynecological examination [Z01.419] INVALID FOR*12/22/2012 Priority: B Class: Chronic Fibromyalgia [M79.7] INVALID FOR* More... 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 Encounter for screening colonoscopy [Z12.11] INVALID FOR* HTN (hypertension ) [I10] INVALID FOR* More... Psychophysiological insomnia [F51.04] INVALID FOR* Depression [F32.9] INVALID FOR* JORGE (obstructive sleep apnea ) RDI 67 CMS AHI *INVALID FOR* Lumbago [M54.5] INVALID FOR* DDD (degenerative disc disease), lumbar [M51.36]INVALID FOR* Cervical spondylosis without myelopathy [M47.81*INVALID FOR* Cervicalgia [M54.2] INVALID FOR* Abnormal echocardiogram [R93.1] INVALID FOR* More... 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 Radiculopathy, lumbar region [M54.16] INVALID FOR* More...Prescriptions ordered this encounter Disp Refills Start End ORPHENADRINE CITRATE ER 100 MG TABLE* 60 t* 1 07/02/2017 Route: ORAL Sig: Take 1 tablet by mouth twice daily. PREGABALIN 150 MG CAPSULE 90 c* 1 07/02 Class: Print RX Route: ORAL Sig: Take 1 capsule by mouth three times daily. Status:Closed by ZACHARY BAUMAN MD on 07/02/17 NURSING PROG Observed: 06/24/2017 Status: COMPLETED Source: [place] 1:39 PM [facility] OTHER [facility] REPOSITORY HNO ID: [id number]: Crissy KapoorRn) ODILON Gonzalezervice : NursingAuthor Type: Registered NurseType: Nursing Progress NoteFiled: 2016 2:22 PMNote Text:[id number] Received from or Pt [id number] Light diet to [id number] Discharge instructions reviewed with pt by haley lutz rn Up to chair Steady when up [id number] Discharged by wheelchair OR SPINAL INJ Observed: 06/24/2017 Status: F Source: [place] 1:10 PM [facility] REPOSITORY * * *Final Report* * *DATE OF EXAM: Jun 24 2017 1:10PM MDR [id number] - OR SPINAL INJ / REASON: pain * * * * Physician Interpretation * * * * INDICATION: Pain managementTECHNIQUE: 3 views of the lower lumbar spineFLUOROSCOPY TIME: 0:19FINDINGS/IMPRESSION: A needle with injected contrast is seen in the left L5-S1 foramenTranscriptionist: APPLE Transcribe Date/Time: Jun 24 2017 1:46PDictated by : GYPSY PAULINO MDThiteresita examination was interpreted and the report reviewed and electronically signed by: GYPSY PAULINO MD on Jun 24 2017 1:47PM EST OPERATIVE NO Observed: 06/24/2017 Status: COMPLETED Source: [place] 1:09 PM [facility] REPOSITORY HNO ID: [id number]: Zachary Moran: Pain ManagementAuthor Type: PhysicianType: Operative ReportFiled: 06/24/2017 1:11 PMNote Text:PATIENT NAME: Nora GrandeMRN: [id number] DATE: 06/24/2017PROCEDURE NOTEPREOPERATIVE DIAGNOSIS(ES)Lumbar radiculopathyLumbar disc displacementLumbar canal stenosis without neurogenic claudicationLumbar DDDPOSTOPERATIVE DIAGNOSIS(ES):SameOPERATION: Left L5-S1 lumbar transforaminal epidural steroid injectionunder fluoroscopy.ANESTHESIA: versed 3mg IV.INDICATIONS: The patient presents for lumbar transforaminal epiduralsteroid injection. Since the last visit, the patient denies any new paincomplaints and denies any focal neurological deficits. As discussed andoutlined in the office and confirmed today, the plan is to proceed withlumbar transforaminal epidural steroid injection. The risks and benefitsof the procedure were discussed. Specifically, the risks of bleeding,infection, inadvertent dural puncture, spinal heaches, vasovagal reaction,epidural hematoma, partial or permanent nerve injury were covered. Thepotential side effects of medications used in procedures includingincrease in lumbar pain, headaches, facial redness or warmth (flushing),anxiety or mood swings, sleeplessness, fever, high blood sugar, briefreduction in immunity were discussed. The patient expressed understandingof potential risks and wishes to proceed with the procedure.OPERATIVE PROCEDURE: The patient was brought to the operating room. Thepatient was placed in the prone position with routine monitors placed. Thelower backwas prepped in sterile fashion. Upon AP projection under fluoroscopy,L5-S1 level was identified. The fluoroscopy was rotated in obliqueprojection to identify the neuroforamen. Entry point was marked andanesthetized with 0.25% Marcaine. This wasfollowed by insertion of a 5 inch spinal needle, which wasinserted and advanced towards the 12 o' clock of the L5-S1 neuroforamen.Once theNeedle tip contacted the inferior lateral aspect of the pedicle,aspiration was performed which was negativefor blood or CSF. This was followed by injection of Omnipaque 300, whichrevealed a spread through the neuroforamen into the anterior epiduralspace. Therewas no evidence of intravascular or intrathecal flow. This was thenfollowed by a total injection of 3 mL of 0.25 % Marcaine with 40 mg ofDepomedrol. Thepatient tolerated the procedure well. The needle was removed intact. Drydressing was placed over the injection site. The patient was taken to therecovery room in stable condition.EBL: nilStart time: 1:03 PMEnd time: 1:08 PMI was present the entire time and personally performed the procedure.SIGNATURE: CELSA ArtisATE: June 24, 2017TIME: 1:10 PM HISTORY PHYSICAL Observed: 06/24/2017 Status: COMPLETED Source: [place] 12:32 PM [facility] OTHER CAMP[facility] REPOSITORY HNO ID: [id number]: Zachary Moran: Pain ManagementAuthor Type: PhysicianType: HANDPFiled: 06/24/2017 12:32 PMNote Text: HISTORY AND PHYSICAL EXAMINATIONPATIENT NAME: Nora GrandeMRN: [id number] of SERVICE: 06/24/2017Nora Grande is here for the pain mangement procedure. The patientpresents with persistent pain complaints. Nora Grande denies anyinterval changes or new pain complaints or focal neurologic deficits.PAST MEDICAL HISTORYDiagnosis Date- Abnormal echocardiogram 10/18/2016 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 (11/2015)- Abnormal Pap smear- COPD (chronic obstructive pulmonary disease) (HCC)- Fibromyalgia- Other and unspecified ovarian cyst Ovarian cyst- Patent foramen ovale 07/19/2014- Skin cancer- Tobacco use- Tobacco use disorder, continuous 07/19/2014- Urinary tract infectionPAST SURGICAL HISTORYProcedure Laterality Date- CARPAL TUNNEL bilateral- COLONOSCOP W/ OR W/O BRSH SPEC 11/23/14 Colonoscopy- PAST SURGICAL HISTORY OF Bilateral foot surgeries-neuromas- TOTAL ABDOM HYSTERECTOMY Hysterectomy, SAGE Cysts on ovaries,Social History Marital status: Spouse name: Years of education: 12 Number of children: 2Occupational 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 Sometimes heavy lifting, continuous moving. She has an adult ADHD son, not doing well ( seizures). Grandson, great grandson. The grandchildren are living with her. Shehas to take care of her son but he lives elsewhere.FAMILY HISTORYProblem Relation Age of Onset- Heart Father SD- Breast Cancer Maternal Grandmother Ovarian as well- Cancer Maternal Grandmother breast and ovary.- Heart Brother- Heart BrotherALLERGIESAllergen Reactions- Ciprofloxacin GI Upset, Vomiting Dizziness- Codeine Hives, Itching Generalized.Current Facility-Administered Medications:NaCl 0.9 % iv infusion 30 mL/hr INTRAVENOUS CONTINUOUSPhysical Exam:Performed in conjunction with observation.The patient is alert and oriented x3.The patient is in no acute distress.Neck: Supple. The range of motion is intact.Lungs: clearCVR: RRR.Extremities: no reported edema or erythema.Examination indicates no changesImpression:Lumbar radiculopathyPlan:The informed consent has been obtained.The plan is to proceed with the procedure as planned.SIGNATURE: Zachary Bauman, MDDATE : June 24, 2017TIME: 12:32 PM HOSP Observed: 06/16/2017 Status: COMPLETED Source: [place] 12:00 AM CLINIC OTHER CAMPUS REPOSITORY Patient:Nora Grande RMRN: <[id number]>Height:5' 2 (1.575 m)Weight:128 lb (58.06 kg)Outpatient Medications as of 06/24/17:lidocaine ( LIDODERM) 5 %clonazePAM (KLONOPIN) 1 mg tabletQUEtiapine (SEROQUEL) 100 mg tabletFLUTICASONE/VILANTEROL (BREO ELLIPTA INHALATION)UMECLIDINIUM BROMIDE ( INCRUSE ELLIPTA INHALATION)hydrOXYzine HCl (ATARAX) 25 mg tablethydrochlorothiazide ( HYDRODIURIL, ESIDRIX) 25 mg tabletpediatric multivitamin gummy without iron (JENNIFER DOO) chew chewable tabletbuPROPion SR (ZYBAN SR; WELLBUTRIN SR) 150 mg 12 hr tabletoxyCODONE- acetaminophen (PERCOCET) 5-325 mg tablettriamcinolone acetonide (KENALOG) 0.1 % creamnystatin (MYCOSTATIN) creamDULoxetine (CYMBALTA) 60 mg capsulecapsaicin (ZOSTRIX) 0.025 % creamCOMPOUNDED PRESCRIPTIONCPAPondansetron (ZOFRAN) 4 mg tabletaspirin, enteric coated (ASPIRIN, ENTERIC COATED) 81 mg EC tabletDiclofenac Sodium (VOLTAREN) 1 % gelestradiol (ESTRACE) 0.01 % (0.1 mg/gram) vaginal creamAdmission/Clinic Administered Medications as of 06/24/17:NaCl 0.9% iv infusionProblem List:Fibromyalgia [M79.7]Capsulitis [ M77.9]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]Postmenopausal atrophic vaginitis [ N95.2]COPD (chronic obstructive pulmonary disease) (HCC) [J44.9]Tobacco use disorder, continuous [F17.209]Patent foramen ovale [Q21.1]Encounter for screening colonoscopy [ Z12.11]HTN (hypertension) [I10]Psychophysiological insomnia [F51.04]Depression [F32.9]JORGE (obstructive sleep apnea) RDI 67 CMS AHI 1.3 [G47.33]Lumbago [M54.5]DDD ( degenerative disc disease), lumbar [M51.36]Cervical spondylosis without myelopathy [M47.812]Cervicalgia [M54.2]Abnormal echocardiogram [R93.1]PTSD (post- traumatic stress disorder) [F43.10]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 [facility] for a follow upappointment regarding chronic lower back pain. She states that since the lastvisit symptoms have been worsening. The pain is located in the lower lumbarregion and radiates down the posterolateral leg. The pain is described asaching, excruciating, numbness, penetrating, pressure, radiating, severe, sharp,soreness, shooting, stabbing, tingling and cramping and is rated as 8 on a scaleof 0-10. The patient Reports numbness, tingling, morning stiffness and legpain. Symptoms interfere with physical activity, work, sexual relations,walking, sleeping, sitting, bathing, driving, cooking, household cleaning,reaching for shelves, lifting and social activities. The pain is exacerbated bysitting, standing, forward flexion, lifting, getting up from sitting, lying downand walking. The pain is mitigated by unable to pinpoint positions/factors thatare mitigating. .She is currently receiving medications through the [facility]. She is not havingdifficulty with her [facility] medications. The medications are ineffective. Thepatient states the last dose of .Lyrica/pregabalin was taken at May 28, 2017.REVIEW OF SYSTEMS:Constitutional:(-) Fever(-) Night Sweats(-) Weight Gain(-) Weight Loss( -) Fatigue Cardiovascular:(-) Chest Pain(-) Palpitations(-) Lightheadedness(-) Swelling of Ankles(-) Hx Heart SurgeryRespiratory:(-) Shortness of Breath(-) Cough(-) Wheezing(-) Snoring Gastrointestinal:(-) Incontinence(-) Abdominal Pain(-) Diarrhea(-) Constipation (-) Nausea/Vomiting(-) Heart BurnEndocrine:(-) Thyroid Disorder(-) Diabetes Hematologic:(-) Prolonged Bleeding(-) Easy BruisingGenitourinary:(-) Incontinence(-) Frequency( -) Urinary Urgency Skin:(-) Rashes(-) Itching(-) Other LesionsNeurologic:(-) Headache(-) Double Vision(-) Confusion(-) Paralysis Psychiatric:(+) Depression(+) Anxiety(-) Delusions(-) Hallucinations(-) Personal History of Alcohol or Substance Abuse(-) Family History of Alcohol or Substance Abuse PAST MEDICAL HISTORYDiagnosis Date- Abnormal echocardiogram 10/18/2016 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 (11/2015)- Abnormal Pap smear- COPD (chronic obstructive pulmonary disease) (HCC)- Fibromyalgia- Other and unspecified ovarian cyst Ovarian cyst- Patent foramen ovale 07/19/2014- Skin cancer- Tobacco use- Tobacco use disorder, continuous 07/19/2014- Urinary tract infectionPAST SURGICAL HISTORYProcedure Laterality Date- CARPAL TUNNEL 1980s bilateral- COLONOSCOP W/ OR W/O BRSH SPEC 11/23/14 Colonoscopy- PAST SURGICAL HISTORY OF Bilateral foot surgeries-neuromas- TOTAL ABDOM HYSTERECTOMY Hysterectomy, SAGE Cysts on ovaries,ALLERGIESAllergen Reactions- Ciprofloxacin GI Upset, Vomiting Dizziness- Codeine Hives, Itching Generalized.Current Outpatient Prescriptions:buPROPion SR (ZYBAN SR; WELLBUTRIN SR) 150 mg 12 hr tablet TAKE 1 TABLET TWICEDAILYclonazePAM (KLONOPIN) 1 mg tablet TAKE 1 TABLET AT BEDTIMEcephALEXin (KEFLEX) 500 mg capsule Take 1 capsule by mouth three times daily.capsaicin ( ZOSTRIX) 0.025 % cream Apply to soles of feet as needed for burningsensation.COMPOUNDED PRESCRIPTION DuaL Gabapentin 6% diclofenac 3% (M) cream . Apply 2-4pumps to affected area (bilateral hips) 3-4 times per day.CPAP CPAP 11 cmH2O, suitable mask, tubing, humidifier, filters. Lifetimesupplies. Dx: 327.23 - Obstructive sleep apneaaspirin, enteric coated (ASPIRIN, ENTERIC COATED) 81 mg EC tablet Take 81 mg bymouth once daily.Diclofenac Sodium (VOLTAREN) 1 % gel Apply 2 g to affected area three timesdaily.oxyCODONE-acetaminophen (PERCOCET) 5-325 mg tablet Take 1 tablet by mouth every4 hours as needed for Pain for up to 7 days.lidocaine (LIDODERM) 5 % Apply 1 Patch as directed once daily. TO AFFECTED AREA.REMOVE AFTER 12 HOURS.QUEtiapine ( SEROQUEL) 100 mg tablet Take 1 tablet by mouth once daily. DrStutzmanoxyCODONE-acetaminophen (PERCOCET) 5-325 mg tablet Take 1-2 tablets by mouthevery 6 hours as needed for Pain.FLUTICASONE/VILANTEROL (BREO ELLIPTA INHALATION) Inhale as instructed oncedaily.UMECLIDINIUM BROMIDE (INCRUSE ELLIPTA INHALATION) Inhale as instructed oncedaily.triamcinolone acetonide (KENALOG) 0.1 % cream Apply 1 application to affectedarea twice daily.nystatin (MYCOSTATIN) cream apply twice daily to affected area/ skin rash.DULoxetine (CYMBALTA) 60 mg capsule Take 1 capsule by mouth once daily.hydrOXYzine HCl (ATARAX) 25 mg tablet Take 1 tablet by mouth every 6 hours asneeded.hydrochlorothiazide (HYDRODIURIL, ESIDRIX) 25 mg tablet Take 1 tablet by mouthonce daily.pediatric multivitamin gummy without iron (JENNIFER DOO) chew chewable tablet Take2 tablets by mouth once daily.ondansetron (ZOFRAN) 4 mg tablet Take 1 tablet by mouth every 8 hours as needed.estradiol (ESTRACE) 0.01 % (0.1 mg/gram) vaginal cream Use vaginally twiceweekly ONE GRAMNo current facility-administered medications for this visit.I have reviewed the nurses notes and I am aware of the family/social history.Since the last evaluation the medical history has not changed.PHYSICAL EXAMINATION: Vitals: Pulse 63 Wt 128 lb (58.1kg) SpO2 100%Performed in conjunction with observation.The patient is alert and oriented x3.The patient is in no acute distress.Station and Gait: flexed posture and antalgic gait leaning forwardLungs: normal respiratory rate and rhythm.Cardiovascular: regular rate.Neck: Supple. The range of motion is intact.Back: Range of motion of the trunk was generally intact.Spine: L-S tenderness. Positive SLR on the left at less than 60deg.Extremities: no reported edema or erythema.Motor: Exhibits full strength in all four extremities.ASSESSMENT:Encounter Diagnosis ICD-10- CM1. DDD (degenerative disc disease), lumbar M51.36 INJ TRANSFRAM EPID ANES/STERLS SINGL2. 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 Radiculopathy, lumbar region M54.16 INJ TRANSFRAM EPID ANES/STER LS SINGLOARRS website checked and validated. All prescriptions have been APPROPRIATELYfilled. No suspicious activity was identified.- 05/28/2017 by Lilian Rouse Agreement reviewed and signed?: N/A on May 28, 2017Urine Panel: No results found for: UQCANN, UQBNZL, WZX3XKL, UQAMPH, UQMAMP, UQBUPRE,UQNORBUP, UQMTHD, UQEDDP, UQTRAM, UQDTRM, UQFNTL, UQNFTL, UQCODE, UQMORP,UQDCDN, UQHCOD, UQOXYC, UQHMOR, UQOXYM, UQCREA, UQPH, UQSPGR, UQOXID, UQSPQThe pain panel was N/APLAN:Prior available imaging studies were reviewed. Findings were discussed.Injection history was reviewed. Medication use and compliance were reviewed.1. She did well with prior injections.2. A short course for acute exacerbation of pain.Signed Prescriptions Disp Refills oxyCODONE-acetaminophen (PERCOCET) 5-325 mg tablet 28 tablet 0 Sig: Take 1 tablet by mouth every 4 hours as needed for Pain for up to 7days. JOSHUA Class: C-II3. Interventional procedure options discussed. Left transforaminal injection.4. Encouraged regular home exercise program.5) F/U in 3 monthsThe treatment plan was discussed with the patient during the office visit andthey verbalized an understanding of it.Zachary Bauman, [facility]: Dr. Alton Mallory, DOcc: SELFPhone: N/AFax:Results of consultation to be transmitted via electronic medical record forthose providers who practice within [facility] or with access to [employer] via [facility] [employer],or via letter.Previous Version PROGRESS Observed: 05/28/2017 Status: COMPLETED Source: [place] 11:28 AM [facility] [place] REPOSITORY HNO ID: [id number]: Zachary Moran: (none)Author Type: PhysicianType: Progress NotesFiled: 05/28/2017 3:05 PMNote Text:ANGELY PAIN MANAGEMENT OFFICE NOTEDATE: May 28, 2017Chief Complaint: chronic lower back SUBJECTIVE:Ms. Grande [facility] the [facility] office for afollow up appointment regarding chronic lower back pain. She states thatsince the last visit symptoms have been worsening. The pain is located inthe lower lumbar region and radiates down the posterolateral leg. Thepain is described as aching, excruciating, numbness, penetrating,pressure, radiating, severe, sharp, soreness, shooting, stabbing, tinglingand cramping and is rated as 8 on a scale of 0-10. The patient Reportsnumbness, tingling, morning stiffness and leg pain. Symptoms interferewith physical activity, work , sexual relations, walking, sleeping,sitting, bathing, driving, cooking, household cleaning, reaching forshelves, lifting and social activities. The pain is exacerbated bysitting, standing, forward flexion, lifting, getting up from sitting,lying down and walking. The pain is mitigated by unable to pinpointpositions/factors that are mitigating. .She is currently receiving medications through the [facility]. She is not havingdifficulty with her [facility] medications. The medications are ineffective.The patient states the last dose of .Lyrica/pregabalin was taken at May 28, 2017.REVIEW OF SYSTEMS: Constitutional:(-) Fever(-) Night Sweats(-) Weight Gain(-) Weight Loss(-) Fatigue Cardiovascular:( -) Chest Pain(-) Palpitations(-) Lightheadedness(-) Swelling of Ankles(-) Hx Heart SurgeryRespiratory:(-) Shortness of Breath(-) Cough(-) Wheezing(-) Snoring Gastrointestinal:(-) Incontinence(-) Abdominal Pain(-) Diarrhea(-) Constipation (-) Nausea/Vomiting(-) Heart BurnEndocrine:(-) Thyroid Disorder(-) Diabetes Hematologic:(-) Prolonged Bleeding(-) Easy BruisingGenitourinary:(-) Incontinence(-) Frequency( -) Urinary Urgency Skin:(-) Rashes(-) Itching(-) Other LesionsNeurologic:(-) Headache(-) Double Vision(-) Confusion(-) Paralysis Psychiatric:(+) Depression(+) Anxiety(-) Delusions(-) Hallucinations(-) Personal History of Alcohol or Substance Abuse(-) Family History of Alcohol or Substance Abuse PAST MEDICAL HISTORYDiagnosis Date- Abnormal echocardiogram 10/18/2016 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 (11/2015)- Abnormal Pap smear- COPD (chronic obstructive pulmonary disease) (HCC)- Fibromyalgia- Other and unspecified ovarian cyst Ovarian cyst- Patent foramen ovale 07/19/2014- Skin cancer- Tobacco use- Tobacco use disorder, continuous 07/19/2014- Urinary tract infectionPAST SURGICAL HISTORYProcedure Laterality Date- CARPAL TUNNEL 1980s bilateral- COLONOSCOP W/ OR W/O BRSH SPEC 11/23/14 Colonoscopy- PAST SURGICAL HISTORY OF Bilateral foot surgeries-neuromas- TOTAL ABDOM HYSTERECTOMY 1980s Hysterectomy, SAGE Cysts on ovaries,ALLERGIESAllergen Reactions- Ciprofloxacin GI Upset, Vomiting Dizziness- Codeine Hives, Itching Generalized.Current Outpatient Prescriptions:buPROPion SR (ZYBAN SR; WELLBUTRIN SR) 150 mg 12 hr tablet TAKE 1 TABLETTWICE DAILYclonazePAM (KLONOPIN) 1 mg tablet TAKE 1 TABLET AT BEDTIMEcephALEXin (KEFLEX) 500 mg capsule Take 1 capsule by mouth three timesdaily.capsaicin ( ZOSTRIX) 0.025 % cream Apply to soles of feet as needed forburning sensation.COMPOUNDED PRESCRIPTION DuaL Gabapentin 6% diclofenac 3% (M) cream .Apply 2-4 pumps to affected area (bilateral hips) 3-4 times per day.CPAP CPAP 11 cmH2O, suitable mask, tubing, humidifier, filters. Lifetimesupplies. Dx: 327.23 - Obstructive sleep apneaaspirin, enteric coated (ASPIRIN, ENTERIC COATED) 81 mg EC tablet Take 81mg by mouth once daily.Diclofenac Sodium (VOLTAREN) 1 % gel Apply 2 g to affected area threetimes daily.oxyCODONE- acetaminophen (PERCOCET) 5-325 mg tablet Take 1 tablet by mouthevery 4 hours as needed for Pain for up to 7 days.lidocaine (LIDODERM) 5 % Apply 1 Patch as directed once daily. TO AFFECTEDAREA. REMOVE AFTER 12 HOURS.QUEtiapine (SEROQUEL) 100 mg tablet Take 1 tablet by mouth once daily. DrStutzmanoxyCODONE-acetaminophen (PERCOCET) 5-325 mg tablet Take 1-2 tablets bymouth every 6 hours as needed for Pain.FLUTICASONE/VILANTEROL (BREO ELLIPTA INHALATION) Inhale as instructedonce daily.UMECLIDINIUM BROMIDE (INCRUSE ELLIPTA INHALATION) Inhale as instructedonce daily.triamcinolone acetonide (KENALOG) 0.1 % cream Apply 1 application toaffected area twice daily.nystatin (MYCOSTATIN) cream apply twice daily to affected area/ skin rash.DULoxetine (CYMBALTA) 60 mg capsule Take 1 capsule by mouth once daily.hydrOXYzine HCl (ATARAX) 25 mg tablet Take 1 tablet by mouth every 6 hoursas needed.hydrochlorothiazide (HYDRODIURIL, ESIDRIX) 25 mg tablet Take 1 tablet bymouth once daily.pediatric multivitamin gummy without iron (JENNIFER DOO) chew chewabletablet Take 2 tablets by mouth once daily.ondansetron (ZOFRAN) 4 mg tablet Take 1 tablet by mouth every 8 hours asneeded.estradiol (ESTRACE) 0.01 % (0.1 mg/gram) vaginal cream Use vaginally twiceweekly ONE GRAMNo current facility-administered medications for this visit.I have reviewed the nurses notes and I am aware of the family/socialhistory.Since the last evaluation the medical history has not changed.PHYSICAL EXAMINATION:Vitals: Pulse 63 Wt 128 lb (58.1kg) SpO2 100%Performed in conjunction with observation.The patient is alert and oriented x3.The patient is in no acute distress.Station and Gait: flexed posture and antalgic gait leaning forwardLungs: normal respiratory rate and rhythm.Cardiovascular: regular rate.Neck: Supple. The range of motion is intact.Back: Range of motion of the trunk was generally intact.Spine: L-S tenderness. Positive SLR on the left at less than 60deg.Extremities: no reported edema or erythema.Motor: Exhibits full strength in all four extremities.ASSESSMENT:Encounter Diagnosis ICD-10-CM1. DDD (degenerative disc disease), lumbar M51.36 INJ TRANSFRAM EPIDANES/STER LS SINGL2. 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 Radiculopathy, lumbar region M54.16 INJ TRANSFRAM EPID ANES/STER LSSINGLOARRS website checked and validated. All prescriptions have beenAPPROPRIATELY filled. No suspicious activity was identified.- 05/28/2017joon Rouse Agreement reviewed and signed?: N/A on May 28, 2017Urine Panel:No results found for: UQCANN, UQBNZL, NEG9KSG, UQAMPH, UQMAMP, UQBUPRE,UQNORBUP, UQMTHD, UQEDDP, UQTRAM, UQDTRM, UQFNTL, UQNFTL, UQCODE, UQMORP,UQDCDN, UQHCOD, UQOXYC, UQHMOR, UQOXYM, UQCREA, UQPH, UQSPGR, UQOXID,UQSPQThe pain panel was N/APLAN:Prior available imaging studies were reviewed. Findings were discussed.Injection history was reviewed. Medication use and compliance werereviewed.1. She did well with prior injections.2. A short course for acute exacerbation of pain.Signed Prescriptions Disp Refills oxyCODONE-acetaminophen (PERCOCET) 5-325 mg tablet 28 tablet 0 Sig: Take 1 tablet by mouth every 4 hours as needed for Pain for up to7 days. JOSHUA Class: C-II3. Interventional procedure options discussed. Left transforaminalinjection.4. Encouraged regular home exercise program.5) F/ U in 3 monthsThe treatment plan was discussed with the patient during the office visitand they verbalized an understanding of it.Zachary Bauman, [facility]: Dr. Alton Mallory, DOcc: SELFPhone: N/AFax:Results of consultation to be transmitted via electronic medical recordfor those providers who practice within [facility] or with access to [employer] via [employer], or via letter. CNOV Observed: 05/28/2017 Status: COMPLETED Source: [place] 11:20 AM [facility] [place] REPOSITORY Office Visit (PNMDNA) ---------NORA GRANDE ([id number]) 1955 FDate Time Provider Dwbrbmlpip15/11/17 11:20 AM ZACHARY BAUMAN PNSHANA During your visit today, we recorded the following information about you: Pulse Weight 63/minute 58.1 kgPaul Samina Bauman MD 05/28/2017 3:05 PM SignedMEDINA PAIN MANAGEMENT OFFICE NOTEDATE: May 28, 2017Chief Complaint: chronic lower back SUBJECTIVE:Ms. Grande [facility] for a followup appointment regarding chronic lower back pain. She states that since thelast visit symptoms have been worsening. The pain is located in the lowerlumbar region and radiates down the posterolateral leg. The pain is describedas aching, excruciating, numbness, penetrating, pressure, radiating, severe,sharp , soreness, shooting, stabbing, tingling and cramping and is rated as 8 annamarie scale of 0-10. The patient Reports numbness, tingling, morning stiffness andleg pain. Symptoms interfere with physical activity, work, sexual relations,walking, sleeping, sitting, bathing, driving, cooking, household cleaning,reaching for shelves, lifting and social activities. The pain is exacerbated bysitting, standing, forward flexion, lifting, getting up from sitting, lyingdown and walking. The pain is mitigated by unable to pinpoint positions/factorsthat are mitigating. .She is currently receiving medications through the [facility]. She is not havingdifficulty with her [facility] medications. The medications are ineffective. Thepatient states the last dose of .Lyrica/pregabalin was taken at May 28, 2017.REVIEW OF SYSTEMS:Constitutional:(-) Fever(-) Night Sweats(-) Weight Gain(-) Weight Loss(-) Fatigue Cardiovascular:( -) Chest Pain(-) Palpitations(-) Lightheadedness(-) Swelling of Ankles(-) Hx Heart SurgeryRespiratory:(-) Shortness of Breath(-) Cough(-) Wheezing(-) Snoring Gastrointestinal:(-) Incontinence(-) Abdominal Pain(-) Diarrhea(-) Constipation(-) Nausea/Vomiting(-) Heart BurnEndocrine:(-) Thyroid Disorder(-) Diabetes Hematologic:(-) Prolonged Bleeding(-) Easy BruisingGenitourinary:(-) Incontinence(-) Frequency(-) Urinary Urgency Skin:(-) Rashes(-) Itching(-) Other LesionsNeurologic:(-) Headache(-) Double Vision(-) Confusion(-) Paralysis Psychiatric:(+) Depression(+) Anxiety(-) Delusions(-) Hallucinations(-) Personal History of Alcohol or Substance Abuse(-) Family History of Alcohol or Substance Abuse PAST MEDICAL HISTORYDiagnosis Date- Abnormal echocardiogram 10/18/2016 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 (11/2015)- Abnormal Pap smear- COPD (chronic obstructive pulmonary disease) (HCC)- Fibromyalgia- Other and unspecified ovarian cyst Ovarian cyst- Patent foramen ovale 07/19/2014- Skin cancer- Tobacco use- Tobacco use disorder, continuous 07/19/2014- Urinary tract infectionPAST SURGICAL HISTORYProcedure Laterality Date- CARPAL TUNNEL 1980s bilateral- COLONOSCOP W/ OR W/O BRSH SPEC 11/23/14 Colonoscopy- PAST SURGICAL HISTORY OF Bilateral foot surgeries-neuromas- TOTAL ABDOM HYSTERECTOMY 1980s Hysterectomy, SAGE Cysts on ovaries,ALLERGIESAllergen Reactions- Ciprofloxacin GI Upset, Vomiting Dizziness- Codeine Hives, Itching Generalized.Current Outpatient Prescriptions:buPROPion SR (ZYBAN SR; WELLBUTRIN SR) 150 mg 12 hr tablet TAKE 1 TABLET TWICEDAILYclonazePAM (KLONOPIN) 1 mg tablet TAKE 1 TABLET AT BEDTIMEcephALEXin (KEFLEX) 500 mg capsule Take 1 capsule by mouth three times daily.capsaicin (ZOSTRIX) 0.025 % cream Apply to soles of feet as needed for burningsensation.COMPOUNDED PRESCRIPTION DuaL Gabapentin 6% diclofenac 3% (M) cream . Apply 2-4pumps to affected area ( bilateral hips) 3-4 times per day.CPAP CPAP 11 cmH2O, suitable mask, tubing, humidifier, filters. Lifetimesupplies. Dx: 327.23 - Obstructive sleep apneaaspirin, enteric coated (ASPIRIN, ENTERIC COATED) 81 mg EC tablet Take 81 mg bymouth once daily.Diclofenac Sodium (VOLTAREN) 1 % gel Apply 2 g to affected area three timesdaily.oxyCODONE-acetaminophen (PERCOCET) 5-325 mg tablet Take 1 tablet by mouth every4 hours as needed for Pain for up to 7 days.lidocaine (LIDODERM) 5 % Apply 1 Patch as directed once daily. TO AFFECTEDAREA. REMOVE AFTER 12 HOURS.QUEtiapine (SEROQUEL) 100 mg tablet Take 1 tablet by mouth once daily. DrStutzmanoxyCODONE-acetaminophen (PERCOCET) 5-325 mg tablet Take 1-2 tablets by mouthevery 6 hours as needed for Pain.FLUTICASONE/VILANTEROL (BREO ELLIPTA INHALATION) Inhale as instructed oncedaily.UMECLIDINIUM BROMIDE (INCRUSE ELLIPTA INHALATION) Inhale as instructed oncedaily.triamcinolone acetonide (KENALOG) 0.1 % cream Apply 1 application to affectedarea twice daily.nystatin (MYCOSTATIN) cream apply twice daily to affected area/ skin rash.DULoxetine (CYMBALTA) 60 mg capsule Take 1 capsule by mouth once daily.hydrOXYzine HCl (ATARAX) 25 mg tablet Take 1 tablet by mouth every 6 hours asneeded.hydrochlorothiazide (HYDRODIURIL, ESIDRIX) 25 mg tablet Take 1 tablet by mouthonce daily.pediatric multivitamin gummy without iron (JENNIFER DOO) chew chewable tabletTake 2 tablets by mouth once daily.ondansetron (ZOFRAN) 4 mg tablet Take 1 tablet by mouth every 8 hours asneeded.estradiol (ESTRACE) 0.01 % (0.1 mg/gram) vaginal cream Use vaginally twiceweekly ONE GRAMNo current facility-administered medications for this visit.I have reviewed the nurses notes and I am aware of the family/social history.Since the last evaluation the medical history has not changed.PHYSICAL EXAMINATION:Vitals: Pulse 63 Wt 128 lb (58.1kg) SpO2 100%Performed in conjunction with observation.The patient is alert and oriented x3.The patient is in no acute distress.Station and Gait: flexed posture and antalgic gait leaning forwardLungs: normal respiratory rate and rhythm.Cardiovascular: regular rate.Neck: Supple. The range of motion is intact.Back: Range of motion of the trunk was generally intact.Spine: L-S tenderness. Positive SLR on the left at less than 60deg.Extremities: no reported edema or erythema.Motor: Exhibits full strength in all four extremities.ASSESSMENT:Encounter Diagnosis ICD-10-CM1. DDD (degenerative disc disease), lumbar M51.36 INJ TRANSFRAM EPID ANES/STERLS SINGL2. 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 Radiculopathy, lumbar region M54.16 INJ TRANSFRAM EPID ANES/STER LS SINGLOARRS website checked and validated. All prescriptions have been APPROPRIATELYfilled. No suspicious activity was identified.- 05/28/2017 by Lilian Rouse Agreement reviewed and signed?: N/A on May 28, 2017Urine Panel:No results found for: UQCANN, UQBNZL, EOW9VYB, UQAMPH, UQMAMP, UQBUPRE,UQNORBUP, UQMTHD, UQEDDP, UQTRAM, UQDTRM, UQFNTL, UQNFTL, UQCODE, UQMORP,UQDCDN, UQHCOD, UQOXYC, UQHMOR, UQOXYM, UQCREA, UQPH, UQSPGR, UQOXID, UQSPQThe pain panel was N /APLAN:Prior available imaging studies were reviewed. Findings were discussed.Injection history was reviewed. Medication use and compliance were reviewed.1. She did well with prior injections.2. A short course for acute exacerbation of pain.Signed Prescriptions Disp Refills oxyCODONE-acetaminophen (PERCOCET) 5-325 mg tablet 28 tablet 0 Sig: Take 1 tablet by mouth every 4 hours as needed for Pain for up to 7days. JOSHUA Class: C-II3. Interventional procedure options discussed. Left transforaminal injection.4. Encouraged regular home exercise program.5) F/U in 3 monthsThe treatment plan was discussed with the patient during the office visit andthey verbalized an understanding of it.Zachary Bauman, [facility] [place]: Dr. Alton Mallory, DOcc: SELFPhone: N/AFax:Results of consultation to be transmitted via electronic medical record forthose providers who practice within [facility] or with access to [employer] via [employer],or via letter.Referring Provider: SELF [[id number]]Allergies As of Date: 05/28/2017 Noted Allergy ReactionCIPROFLOXACIN 11/04/2013 8 - GI Upset 11 - Vomiting Comments: DizzinessCODEINE 02/12/2011 4 - Hives 9 - Itching Comments: Generalized.Date Reviewed: 2016Reviewed by: Lilian Jacome Ma - Fully AssessedReason for Visit: Established Patient [175] Cmt: 3 follow upPrimary Visit Diagnosis:DDD (degenerative disc disease), lumbar [M51.36] Other Visit Diagnoses: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] Radiculopathy, lumbar region [M54.16]Order(s):INJ TRANSFRAM EPID ANES/STER LS SINGL [[id number]] Order #: [id number] oxyCODONE-acetaminophen (PERCOCET) 5-325 mg tabletTake 1 tablet by mouth every 4 hours as needed for Pain for up to 7 days.Disp: 28 tabletRfl: 0 SURGICAL REQUEST - ELECTIVE [[id number]] Order #: [id number]: 1Prescriptions as of 05/28/2017 Sig: BUPROPION HCL SR 150 MG TABLE* TAKE 1 TABLET TWICE DAILY CLONAZEPAM 1 MG TABLET TAKE 1 TABLET AT BEDTIME CEPHALEXIN 500 MG CAPSULE Take 1 capsule by mouth three* CAPSAICIN 0.025 % TOPICAL CRE* Apply to soles of feet as nee* COMPOUNDED PRESCRIPTION DuaL Gabapentin 6% diclofenac* CPAP CPAP 11 cmH2O, suitable mask,* ASPIRIN 81 MG TABLET,DELAYED * Take 81 mg by mouth once sylvia* DICLOFENAC 1 % TOPICAL GEL Apply 2 g to affected area th* OXYCODONE-ACETAMINOPHEN 5 MG-* Take 1 tablet by mouth every * LIDOCAINE 5 % TOPICAL PATCH Apply 1 Patch as directed onc* QUETIAPINE 100 MG TABLET Take 1 tablet by mouth once d* OXYCODONE-ACETAMINOPHEN 5 MG-* Take 1-2 tablets by mouth shanice* BREO ELLIPTA INHALATION Inhale as instructed once da* INCRUSE ELLIPTA INHALATION Inhale as instructed once da* TRIAMCINOLONE ACETONIDE 0.1 %* Apply 1 application to affect* NYSTATIN 100, 000 UNIT/GRAM TO* apply twice daily to affected* DULOXETINE 60 MG CAPSULE,ALFRED* Take 1 capsule by mouth once * HYDROXYZINE HCL 25 MG TABLET Take 1 tablet by mouth every * HYDROCHLOROTHIAZIDE 25 MG TAB* Take 1 tablet by mouth once d* PEDIATRIC MULTIVITAMIN GUMMY * Take 2 tablets by mouth once * ONDANSETRON HCL 4 MG TABLET Take 1 tablet by mouth every * ESTRADIOL 0.01% (0.1 MG/ GRAM)* Use vaginally twice weekly ON*Problem List As Of Date 05/28/2017 Noted Resolved Routine general medical examination at a [facility]*INVALID FOR*12/22/2012 Priority: A Class: Chronic More... Routine gynecological examination [Z01.419] INVALID FOR*12/22/2012 Priority: B Class: Chronic Fibromyalgia [M79.7] INVALID FOR* More... 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 Encounter for screening colonoscopy [Z12.11] INVALID FOR* HTN (hypertension) [I10] INVALID FOR* More... Psychophysiological insomnia [F51.04] INVALID FOR* Depression [F32.9 ] INVALID FOR* JORGE (obstructive sleep apnea) RDI 67 CMS AHI *INVALID FOR * Lumbago [M54.5] INVALID FOR* DDD (degenerative disc disease), lumbar [ M51.36]INVALID FOR* Cervical spondylosis without myelopathy [M47.81*INVALID FOR* Cervicalgia [ M54.2] INVALID FOR* Abnormal echocardiogram [R93.1] INVALID FOR * More... 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 Radiculopathy, lumbar region [M54.16] INVALID FOR* More...Prescriptions ordered this encounter Disp Refills Start End OXYCODONE-ACETAMINOPHEN 5 MG-325 MG * 28 t* 0 05/28/2017 06/04/2017 Class: Print RX Route: ORAL Sig: Take 1 tablet by mouth every 4 hours as needed for Pain for up to 7 days. Status:Closed by ZACHARY BAUMAN MD on 05/28/17 PROGRESS Observed: 03/28/2017 Status: COMPLETED Source: [place] 11:33 AM [facility] [place] REPOSITORY HNO ID: [id number]: Zachary Moran: (none)Author Type: PhysicianType: Progress NotesFiled: 03/28/2017 1:45 PMNote Text:AU PAIN MANAGEMENT OFFICE NOTEDATE: March 28, 2017Chief Complaint: chronic lower back SUBJECTIVE:Ms. Grande presents [facility] office for afollow up appointment regarding chronic lower back pain. She states thatsince the last visit symptoms have been worsening. The pain is located inthe low back lumbar region and radiates down the posterior leg. The painis described as aching, burning, excruciating, mild, moderate, numbness,penetrating, pressure, radiating, sharp, soreness, shooting, stabbing andstiff and is rated as 8 on a scale of 0-10. The patient Reports weakness,morning stiffness, leg pain and leg weakness. Symptoms interfere withphysical activity, work, sexual relations, walking, sleeping, sitting,driving, cooking, household cleaning, reaching for shelves, lifting andsocial activities. The pain is exacerbated by sitting, standing, forwardflexion, lifting, getting up from sitting and walking. The pain ismitigated by lying down and medications. The patient is overall improvedwith the injections by 80%.She is currently receiving medications through the [facility]. She is not havingdifficulty with her [facility] medications. The medications are partiallyeffective. The patient states the last dose of .Lyrica/pregabalin was taken at March 27, 2017.Injection: 09/16/2016 Right L4-5, L5-S1 Lumbar Facet Medial Branch blockREVIEW OF SYSTEMS: Constitutional:(-) Fever(-) Night Sweats(-) Weight Gain(-) Weight Loss(+) Fatigue Cardiovascular:( +) Chest Pain(-) Palpitations(-) Lightheadedness(+) Swelling of Ankles(+) Hx Heart SurgeryRespiratory:(-) Shortness of Breath(-) Cough(-) Wheezing(-) Snoring Gastrointestinal:(-) Incontinence(-) Abdominal Pain(-) Diarrhea(+) Constipation (-) Nausea/Vomiting(-) Heart BurnEndocrine:(-) Thyroid Disorder(-) Diabetes Hematologic:(-) Prolonged Bleeding(-) Easy BruisingGenitourinary:(-) Incontinence(-) Frequency( +) Urinary Urgency Skin:(-) Rashes(+) Itching(-) Other LesionsNeurologic:(+) Headache(+) Double Vision(-) Confusion(-) Paralysis Psychiatric:(+) Depression(+) Anxiety(-) Delusions(-) Hallucinations(-) Personal History of Alcohol or Substance Abuse(-) Family History of Alcohol or Substance Abuse PAST MEDICAL HISTORYDiagnosis Date- Abnormal echocardiogram 10/18/2016 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 (11/2015)- Abnormal Pap smear- COPD (chronic obstructive pulmonary disease) (HCC)- Fibromyalgia- Other and unspecified ovarian cyst Ovarian cyst- Patent foramen ovale 07/19/2014- Skin cancer- Tobacco use- Tobacco use disorder, continuous 07/19/2014- Urinary tract infectionPAST SURGICAL [id number] : CARPAL TUNNEL Comment: bilateral11/23/14: COLONOSCOP W/ OR W/O [facility] SPEC Comment: ColonoscopyNo date : PAST SURGICAL HISTORY OF Bilateral Comment: foot surgeries-[id number]: TOTAL ABDOM HYSTERECTOMY Comment: Hysterectomy, SAGE Cysts on ovaries,ALLERGIESAllergen Reactions- Ciprofloxacin GI Upset, Vomiting Dizziness- Codeine Hives , Itching Generalized.Current Outpatient Prescriptions:QUEtiapine (SEROQUEL) 100 mg tablet Take 1 tablet by mouth once daily. DrStutzmanclonazePAM (KLONOPIN) 1 mg tablet 1 tab by mouth at bedtime.buPROPion SR (WELLBUTRIN SR) 150 mg 12 hr tablet Take 1 tablet by mouthtwice daily.cephALEXin (KEFLEX) 500 mg capsule Take 1 capsule by mouth three timesdaily.oxyCODONE-acetaminophen (PERCOCET) 5-325 mg tablet Take 1-2 tablets bymouth every 6 hours as needed for Pain.FLUTICASONE/VILANTEROL (BREO ELLIPTA INHALATION) Inhale as instructedonce daily.UMECLIDINIUM BROMIDE (INCRUSE ELLIPTA INHALATION) Inhale as instructedonce daily.lidocaine (LIDODERM) 5 % Apply 1 Patch as directed once daily. TO AFFECTEDAREA. REMOVE AFTER 12 HOURS.triamcinolone acetonide (KENALOG) 0.1 % cream Apply 1 application toaffected area twice daily.nystatin (MYCOSTATIN) cream apply twice daily to affected area/ skin rash.hydrOXYzine HCl (ATARAX) 25 mg tablet Take 1 tablet by mouth every 6 hoursas needed.capsaicin (ZOSTRIX) 0.025 % cream Apply to soles of feet as needed forburning sensation.COMPOUNDED PRESCRIPTION DuaL Gabapentin 6% diclofenac 3% ( M) cream .Apply 2-4 pumps to affected area (bilateral hips) 3-4 times per day.hydrochlorothiazide (HYDRODIURIL, ESIDRIX) 25 mg tablet Take 1 tablet bymouth once daily.CPAP CPAP 11 cmH2O, suitable mask, tubing, humidifier, filters. [employer]. Dx: 327.23 - Obstructive sleep apneapediatric multivitamin gummy without iron (JENNIFER DOO) chew chewabletablet Take 2 tablets by mouth once daily.aspirin, enteric coated (ASPIRIN, ENTERIC COATED) 81 mg EC tablet Take 81mg by mouth once daily.Diclofenac Sodium (VOLTAREN) 1 % gel Apply 2 g to affected area threetimes daily.estradiol (ESTRACE) 0.01 % (0.1 mg/gram) vaginal cream Use vaginally twiceweekly ONE GRAMDULoxetine (CYMBALTA) 60 mg capsule Take 1 capsule by mouth once daily.ondansetron (ZOFRAN) 4 mg tablet Take 1 tablet by mouth every 8 hours asneeded.No current facility-administered medications for this visit.I have reviewed the nurses notes and I am aware of the family/socialhistory.Since the last evaluation the medical history has not changed.PHYSICAL EXAMINATION:Vitals: Pulse 71 Wt 128 lb 9.6 oz (58.3kg) SpO2 97%Performed in conjunction with observation.The patient is alert and oriented x3.The patient is in no acute distress.Station and Gait: Normal stance , normal gait.Lungs: normal respiratory rate and rhythm.Cardiovascular: regular rate.Neck: Supple. The range of motion is intact.Back: Range of motion of the trunk was generally intact.Spine: Tenderness to palpate the lumbar/scaral region bilateralparaspinals, Mild SI tenderness bilaterallyExtremities: no reported edema or erythema.Motor: Exhibits full strength in all four extremities.ASSESSMENT:Pt reports lower back pain with intermittent bilateral radicular sxs thatradiates into the gluteal region and down posterior legs to the level ofthe knees.Pt reports lifting, bending, standing and working aggravates the pain.She reports the lyrica, lidoderm patches and baclofen help alleviate thepainShe has been caring for her 84 yo mother which requires lift and ADLsEncounter Diagnosis ICD-10-CM1. Fibromyalgia M79.72. DDD (degenerative disc disease), lumbar M51.363. Cervical spondylosis without myelopathy M47.8124. Cervicalgia M54.2OARRS website checked and validated. All prescriptions have beenAPPROPRIATELY filled. No suspicious activity was identified.- 03/28/2017by Lilian Jacome [facility] Agreement reviewed and signed?: N/A on March 28, 2017The pain panel was N/A. Pt is not on narcoticsPLAN:Prior available imaging studies were reviewed. Findings were discussed.Injection history was reviewed. Medication use and compliance werereviewed.1. Continue medication [facility] through the [facility].Signed Prescriptions Disp Refills pregabalin (LYRICA) 100 mg capsule 90 capsule 2 Sig: Take 1 capsule by mouth three times daily for 30 days. JOSHUA Class: C-V KAY: No lidocaine (LIDODERM) 5 % 30 Patch 6 Sig: Apply 1 Patch as directed once daily. TO AFFECTED AREA. REMOVEAFTER 12 HOURS. KAY: No baclofen ( LIORESAL) 10 mg tablet 60 tablet 2 Sig: Take 1 tablet by mouth twice daily as needed for up to 30 days. KAY: No3) If lidoderm patch 5% is not covered pt will purchase the OTC patchesthat are 4%4) Encouraged regular home exercise program.5) F/U in 3 monthsThe treatment plan was discussed with the patient during the office visitand they verbalized an understanding of it.Zachary Bauman, [facility] [place]: Dr. Alton Mallory, DOcc: SELFPhone: N/AFax:Results of consultation to be transmitted via electronic medical recordfor those providers who practice within [facility] or with access to [employer] via [employer], or via letter. BYRON Observed: 03/28/2017 Status: COMPLETED Source: [place] 11:20 AM [facility] [place] REPOSITORY Office Visit (PNMDNA) ---------NORA GRANDE ([id number]) 1955 FDate Time Provider Department03/28/17 11:20 AM ZACHARY BAUMAN PNMDNA During your visit today, we recorded the following information about you: Pulse Weight 71/minute 58.3 kgPaul Samina Bauman MD 03/28/2017 1:45 PM Signed[facility] OFFICE NOTEDATE: March 28, 2017Chief Complaint: chronic lower back SUBJECTIVE:Ms. Grande presents to the [facility] ([facility]) office for a followup appointment regarding chronic lower back pain. She states that since thelast visit symptoms have been worsening. The pain is located in the low backlumbar region and radiates down the posterior leg. The pain is described asaching, burning, excruciating, mild, moderate, numbness, penetrating, pressure,radiating, sharp, soreness, shooting, stabbing and stiff and is rated as 8 on ascale of 0-10. The patient Reports weakness, morning stiffness, leg pain andleg weakness. Symptoms interfere with physical activity, work, sexualrelations, walking, sleeping, sitting, driving, cooking, household cleaning,reaching for shelves, lifting and social activities. The pain is exacerbated bysitting, standing, forward flexion, lifting, getting up from sitting andwalking. The pain is mitigated by lying down and medications. The patient isoverall improved with the injections by 80%.She is currently receiving medications through the [facility]. She is not havingdifficulty with her [facility] medications. The medications are partially effective. The patient states the last dose of .Lyrica/pregabalin was taken at March 27, 2017.Injection: 09/16/2016 Right L4-5, L5-S1 Lumbar Facet Medial Branch blockREVIEW OF SYSTEMS: Constitutional:(-) Fever(-) Night Sweats(-) Weight Gain(-) Weight Loss(+) Fatigue Cardiovascular:(+) Chest Pain(- ) Palpitations(-) Lightheadedness(+) Swelling of Ankles(+) Hx Heart SurgeryRespiratory:(-) Shortness of Breath(-) Cough(-) Wheezing(-) Snoring Gastrointestinal:(-) Incontinence(-) Abdominal Pain(-) Diarrhea(+) Constipation(-) Nausea/Vomiting(-) Heart BurnEndocrine:(-) Thyroid Disorder(-) Diabetes Hematologic:(-) Prolonged Bleeding(-) Easy BruisingGenitourinary:(-) Incontinence(-) Frequency(+) Urinary Urgency Skin:(-) Rashes(+) Itching(-) Other LesionsNeurologic:(+) Headache(+) Double Vision(-) Confusion(-) Paralysis Psychiatric:(+) Depression(+) Anxiety(-) Delusions(-) Hallucinations(-) Personal History of Alcohol or Substance Abuse(-) Family History of Alcohol or Substance Abuse PAST MEDICAL HISTORYDiagnosis Date- Abnormal echocardiogram 10/18/2016 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 (11/2015)- Abnormal Pap smear- COPD (chronic obstructive pulmonary disease) (HCC)- Fibromyalgia- Other and unspecified ovarian cyst Ovarian cyst- Patent foramen ovale 07/19/2014- Skin cancer- Tobacco use- Tobacco use disorder, continuous 07/19/2014- Urinary tract infectionPAST SURGICAL [id number] : CARPAL TUNNEL Comment: bilateral11/23/14: COLONOSCOP W/ OR W/O [facility] SPEC Comment: ColonoscopyNo date: PAST SURGICAL HISTORY OF Bilateral Comment: foot surgeries-[id number]: TOTAL ABDOM HYSTERECTOMY Comment: Hysterectomy, SAGE Cysts on ovaries,ALLERGIESAllergen Reactions- Ciprofloxacin GI Upset, Vomiting Dizziness- Codeine Hives, Itching Generalized.Current Outpatient Prescriptions:QUEtiapine (SEROQUEL) 100 mg tablet Take 1 tablet by mouth once daily. DrStutzmanclonazePAM (KLONOPIN) 1 mg tablet 1 tab by mouth at bedtime.buPROPion SR (WELLBUTRIN SR) 150 mg 12 hr tablet Take 1 tablet by mouth twicedaily.cephALEXin (KEFLEX) 500 mg capsule Take 1 capsule by mouth three times daily.oxyCODONE-acetaminophen (PERCOCET) 5-325 mg tablet Take 1-2 tablets by mouthevery 6 hours as needed for Pain.FLUTICASONE/VILANTEROL (BREO ELLIPTA INHALATION) Inhale as instructed oncedaily.UMECLIDINIUM BROMIDE (INCRUSE ELLIPTA INHALATION) Inhale as instructed oncedaily.lidocaine (LIDODERM) 5 % Apply 1 Patch as directed once daily. TO AFFECTEDAREA. REMOVE AFTER 12 HOURS.triamcinolone acetonide (KENALOG) 0.1 % cream Apply 1 application to affectedarea twice daily.nystatin (MYCOSTATIN) cream apply twice daily to affected area/ skin rash.hydrOXYzine HCl (ATARAX) 25 mg tablet Take 1 tablet by mouth every 6 hours asneeded.capsaicin (ZOSTRIX) 0.025 % cream Apply to soles of feet as needed for burningsensation.COMPOUNDED PRESCRIPTION DuaL Gabapentin 6% diclofenac 3% (M) cream . Apply 2-4pumps to affected area (bilateral hips) 3-4 times per day.hydrochlorothiazide (HYDRODIURIL, ESIDRIX) 25 mg tablet Take 1 tablet by mouthonce daily.CPAP CPAP 11 cmH2O, suitable mask, tubing, humidifier, filters. Lifetimesupplies. Dx: 327.23 - Obstructive sleep apneapediatric multivitamin gummy without iron (JENNIFER DOO) chew chewable tabletTake 2 tablets by mouth once daily.aspirin, enteric coated (ASPIRIN, ENTERIC COATED) 81 mg EC tablet Take 81 mg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 cmH2O, suitable mask,* PEDIATRIC MULTIVITAMIN GUMMY * Take 2 tablets by mouth once * ONDANSETRON HCL 4 MG TABLET Take 1 tablet by mouth every * ASPIRIN 81 MG TABLET,DELAYED * Take 81 mg by mouth once sylvia* DICLOFENAC 1 % TOPICAL GEL Apply 2 g to affected area th* ESTRADIOL 0.01% (0.1 MG/GRAM)* Use vaginally twice weekly ON*Problem List As Of Date 07/2017 Noted Resolved Routine general medical examination at [facility]*INVALID FOR*12/22/2012 Priority: A Class: Chronic More... Routine gynecological examination [Z01.419] INVALID FOR*12/22/2012 Priority: B Class: Chronic Fibromyalgia [M79.7] INVALID FOR* More... 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 Encounter for screening colonoscopy [Z12.11] INVALID FOR* HTN (hypertension ) [I10] INVALID FOR* More... Psychophysiological insomnia [F51.04] INVALID FOR* Depression [F32.9] INVALID FOR* JORGE (obstructive sleep apnea ) RDI 67 CMS AHI *INVALID FOR* Lumbago [M54.5] INVALID FOR* DDD (degenerative disc disease), lumbar [M51.36]INVALID FOR* Cervical spondylosis without myelopathy [M47.81*INVALID FOR* Cervicalgia [M54.2] INVALID FOR* Abnormal echocardiogram [R93.1] INVALID FOR* More... Status:Closed by RUSTY PERRY DPM on 11/27/16 PROGRESS Observed: 11/27/2016 Status: COMPLETED Source: [place] 8:33 AM [facility] REPOSITORY O ID: [id number]: Moni Ferreira CastilloulService: (none) Author Type: PhysicianType: Progress NotesFiled: 11/27/2016 9:03 AMNote Text:[facility] CenterFollow-up/Established patient visitReason for Visit at [place] : 6 week follow up Time Out: 9 Time In: 8:43Date of last visit: early October Insurance: CaresourcePsychological/Psychiatric Developments:The disability payment plan relieved some stresses, but pt now worriedabout payoff she will need to makd.Medical and Neurological Developments :No neInsomnia: much betterRLS: noOther: noCase Formulation / Shirley (may include pt's hopes, fears, expectations,concerns): doing better, under psych care. Will need only routing JORGE followup.SLEEP-WAKE SCHEDULEBedtime: b 10 and 11SLEEP LATENCY: not very longWake after Sleep Onset brb, then back, may or may not take while to goback to sleep. jmostly just immedicatelWake time: 8, without an alarm.On weekends, she maintains the same sleep schedule.Sleep Quality: Britton does not take naps.Average total sleep time (in a 24 hour period): 7-8 hours.Obstructive Sleep Apnea Issues: Most Recent Apnea-Hypopnea Index: rdi 67 PAP Pressure Setting( s) 11 DME Company: [facility] Mask Type: FFM Mask Issues: no Download Report: na Self-Reported Compliance: All night Benefit: yesALLERGIESAllergen Reactions- Ciprofloxacin GI Upset, Vomiting Dizziness- Codeine Hives, Itching Generalized.CURRENT MEDICATIONS:cephALEXin (KEFLEX) 500 mg capsule Take 1 capsule by mouth three timesdaily.oxyCODONE-acetaminophen (PERCOCET) 5-325 mg tablet Take 1-2 tablets bymouth every 6 hours as needed for Pain.FLUTICASONE/VILANTEROL (BREO ELLIPTA INHALATION) Inhale as instructedonce daily.UMECLIDINIUM BROMIDE (INCRUSE ELLIPTA INHALATION) Inhale as instructedonce daily.clonazePAM (KLONOPIN) 1 mg tablet 1 tab by mouth at bedtime.buPROPion SR (WELLBUTRIN SR) 150 mg 12 hr tablet Take 1 tablet by mouthtwice daily.lidocaine (LIDODERM) 5 % Apply 1 Patch as directed once daily. TO AFFECTEDAREA. REMOVE AFTER 12 HOURS.triamcinolone acetonide (KENALOG) 0.1 % cream Apply 1 application toaffected area twice daily.nystatin (MYCOSTATIN) cream apply twice daily to affected area/ skin rash.DULoxetine (CYMBALTA) 60 mg capsule Take 1 capsule by mouth once daily.hydrOXYzine HCl (ATARAX) 25 mg tablet Take 1 tablet by mouth every 6 hoursas needed.capsaicin (ZOSTRIX) 0.025 % cream Apply to soles of feet as needed forburning sensation.COMPOUNDED PRESCRIPTION DuaL Gabapentin 6% diclofenac 3% (M) cream .Apply 2-4 pumps to affected area (bilateral hips) 3-4 times per day.hydrochlorothiazide (HYDRODIURIL, ESIDRIX) 25 mg tablet Take 1 tablet bymouth once daily.CPAP CPAP 11 cmH2O, suitable mask, tubing, humidifier, filters. [employer]. Dx: 327.23 - Obstructive sleep apneapediatric multivitamin gummy without iron (JENNIFER DOO) chew chewabletablet Take 2 tablets by mouth once daily.ondansetron (ZOFRAN) 4 mg tablet Take 1 tablet by mouth every 8 hours asneeded.aspirin, enteric coated (ASPIRIN, ENTERIC COATED) 81 mg EC tablet Take 81mg by mouth once daily.Diclofenac Sodium (VOLTAREN) 1 % gel Apply 2 g to affected area threetimes daily.estradiol (ESTRACE) 0.01 % (0.1 mg/gram) vaginal cream Use vaginally twiceweekly ONE GRAMVital signs:There were no vitals taken for this visit.MENTAL STATUS General appearance: casual, Grooming good Orientation: Ox3 Memory: Grossly intact Kinetics: nomral Eye Contact: good Demeanor friendly, a bit testy at points Speech: Normal, but husky Thought Stream logical Thought Content about doing better, but worried about her money benefitnot lasting. Mood: improved Affect: Improved, motivatoin better Suicidal Ideation: no Homocidal Ideation: No Psychosis no Insight fair. Judgment goodENT : naAbdomen: Not obeseNeuro: Gait and station normal, Strength grossly normal in allextremities. Coordination grossly intact. No tremors noted.Impression:Obstructive sleep apneaBipolar disorder under other psychiatric carePsychophysiological insominaActions taken: Motivational Interviewing aspects taken engage Medications, allergies, hx Reviewed: yes OARRS Aspect: Not today.ReviesPlan:Psych meds through Dr. Mallory (including Clonopin eventually)Continue CPAPFollow up 6 month. .Moni Gaston MD CNOV Observed: 11/27/2016 Status: COMPLETED Source: [place] 8:20 AM [facility] REPOSITORY Office Visit (NEMOWS) ---------NORA GRANDE ([id number]) 1955 FDate Time Provider Department11/27/16 8:20 AM MONI GASTON During your visit today, we recorded the following information about you: Pulse Respiration Blood pressure Weight 82/minute 16/minute 132/94 64.9 kgDougtim Gaston MD 2016 9:03 AM Signed[facility] Sleep Disorders CenterFollow-up/Established patient visitReason for Visit at [place] : 6 week follow up Time Out: 9 Time In: 8:43Date of last visit: early October Insurance: [employer]ourcePsychological/Psychiatric Developments:The disability payment plan relieved some stresses, but pt now worried aboutpayoff she will need to makd.Medical and Neurological Developments:No neInsomnia: much betterRLS: noOther: noCase Formulation / Shirley (may include pt's hopes, fears, expectations,concerns): doing better, under psych care. Will need only routing JORGE followup.SLEEP-WAKE SCHEDULEBedtime: b 10 and 11SLEEP LATENCY: not very longWake after Sleep Onset brb, then back, may or may not take while to go back tosleep. jmostly just immedicatelWake time: 8, without an alarm.On weekends, she maintains the same sleep schedule.Sleep Quality: Britton does not take naps.Average total sleep time (in a 24 hour period): 7-8 hours.Obstructive Sleep Apnea Issues: Most Recent Apnea-Hypopnea Index: rdi 67 PAP Pressure Setting(s) 11 DME Company: [facility] Mask Type: FFM Mask Issues: no Download Report: na Self- Reported Compliance: All night Benefit: yesALLERGIESAllergen Reactions- Ciprofloxacin GI Upset, Vomiting Dizziness- Codeine Hives, Itching Generalized.CURRENT MEDICATIONS :cephALEXin (KEFLEX) 500 mg capsule Take 1 capsule by mouth three times daily.oxyCODONE-acetaminophen ( PERCOCET) 5-325 mg tablet Take 1-2 tablets by mouthevery 6 hours as needed for Pain.FLUTICASONE/ VILANTEROL (BREO ELLIPTA INHALATION) Inhale as instructed oncedaily.UMECLIDINIUM BROMIDE (INCRUSE ELLIPTA INHALATION) Inhale as instructed oncedaily.clonazePAM (KLONOPIN) 1 mg tablet 1 tab by mouth at bedtime.buPROPion SR (WELLBUTRIN SR) 150 mg 12 hr tablet Take 1 tablet by mouth twicedaily.lidocaine (LIDODERM) 5 % Apply 1 Patch as directed once daily. TO AFFECTEDAREA. REMOVE AFTER 12 HOURS.triamcinolone acetonide (KENALOG) 0.1 % cream Apply 1 application to affectedarea twice daily.nystatin ( MYCOSTATIN) cream apply twice daily to affected area/ skin rash.DULoxetine (CYMBALTA) 60 mg capsule Take 1 capsule by mouth once daily.hydrOXYzine HCl (ATARAX) 25 mg tablet Take 1 tablet by mouth every 6 hours asneeded.capsaicin (ZOSTRIX) 0.025 % cream Apply to soles of feet as needed for burningsensation.COMPOUNDED PRESCRIPTION DuaL Gabapentin 6% diclofenac 3% (M) cream . Apply 2-4pumps to affected area ( bilateral hips) 3-4 times per day.hydrochlorothiazide (HYDRODIURIL, ESIDRIX) 25 mg tablet Take 1 tablet by mouthonce daily.CPAP CPAP 11 cmH2O, suitable mask, tubing, humidifier, filters. [employer]. Dx : 327.23 - Obstructive sleep apneapediatric multivitamin gummy without iron (JENNIFER DOO) chew chewable tabletTake 2 tablets by mouth once daily.ondansetron (ZOFRAN) 4 mg tablet Take 1 tablet by mouth every 8 hours asneeded.aspirin, enteric coated (ASPIRIN, ENTERIC COATED) 81 mg EC tablet Take 81 mg bymouth once daily.Diclofenac Sodium (VOLTAREN) 1 % gel Apply 2 g to affected area three timesdaily.estradiol ( ESTRACE) 0.01 % (0.1 mg/gram) vaginal cream Use vaginally twiceweekly ONE GRAMVital signs:There were no vitals taken for this visit.MENTAL STATUS General appearance: casual, Grooming good Orientation: Ox3 Memory: Grossly intact Kinetics: nomral Eye Contact: good Demeanor friendly, a bit testy at points Speech: Normal, but husky Thought Stream logical Thought Content about doing better, but worried about her money benefitANDquot;not lasting.ANDquot; Mood: improved Affect: Improved, motivatoin better Suicidal Ideation: no Homocidal Ideation: No Psychosis no Insight fair. Judgment goodENT : naAbdomen: Not obeseNeuro: Gait and station normal, Strength grossly normal in all extremities.Coordination grossly intact. No tremors noted.Impression:Obstructive sleep apneaBipolar disorder under other psychiatric carePsychophysiological insominaActions taken: Motivational Interviewing aspects taken engage Medications, allergies, hx Reviewed: yes OARRS Aspect: Not today.ReviesPlan:Psych meds through Dr. Mallory (including Clonopin eventually )Continue CPAPFollow up 6 month. .Yuliet Harper Provider: MONI GASTON [[id number]] Allergies As of Date: 11/27/2016 Noted Allergy ReactionCIPROFLOXACIN 11/04/2013 8 - GI Upset 11 - Vomiting Comments: DizzinessCODEINE 02/12/2011 4 - Hives 9 - Itching Comments: Generalized.Date Reviewed: 11/20/2016Reviewed by: Zaira Dorado Student - Fully AssessedReason for Visit: Established Patient [175] Cmt: 6 week follow up Refill Request [94] Cmt: Drug [place] WoosterDaniela For Visit History RecordedPrimary Visit Diagnosis:JORGE ( obstructive sleep apnea) RDI 67 CMS AHI 1.3 [G47.33] Other Visit Diagnosis: Psychophysiological insomnia [F51.04]Order(s):QUEtiapine (SEROQUEL) 100 mg tabletTake 1 tablet by mouth once daily. Dr SegoviamanDisp: Rfl: clonazePAM (KLONOPIN) 1 mg tablet1 tab by mouth at bedtime.Disp: 30 tabletRfl: 1 buPROPion SR (WELLBUTRIN SR) 150 mg 12 hr tabletTake 1 tablet by mouth twice daily.Disp: 60 tabletRfl: 2Prescriptions as of 11/27/2016 Sig: QUETIAPINE 100 MG TABLET Take 1 tablet by mouth once d* CLONAZEPAM 1 MG TABLET 1 tab by mouth at bedtime. BUPROPION HCL SR 150 MG TABLE* Take 1 tablet by mouth twice * CEPHALEXIN 500 MG CAPSULE Take 1 capsule by mouth three* OXYCODONE-ACETAMINOPHEN 5 MG-* Take 1-2 tablets by mouth shanice* BREO ELLIPTA INHALATION Inhale as instructed once da* INCRUSE ELLIPTA INHALATION Inhale as instructed once da* LIDOCAINE 5 % TOPICAL PATCH Apply 1 Patch as directed onc* TRIAMCINOLONE ACETONIDE 0.1 %* Apply 1 application to affect* NYSTATIN 100,000 UNIT/GRAM TO* apply twice daily to affected* DULOXETINE 60 MG CAPSULE,ALFRED* Take 1 capsule by mouth once * HYDROXYZINE HCL 25 MG TABLET Take 1 tablet by mouth every * CAPSAICIN 0.025 % TOPICAL CRE* Apply to soles of feet as nee* COMPOUNDED PRESCRIPTION DuaL Gabapentin 6% diclofenac* HYDROCHLOROTHIAZIDE 25 MG TAB* Take 1 tablet by mouth once d* CPAP CPAP 11 cmH2O, suitable mask,* PEDIATRIC MULTIVITAMIN GUMMY * Take 2 tablets by mouth once * ONDANSETRON HCL 4 MG TABLET Take 1 tablet by mouth every * ASPIRIN 81 MG TABLET,DELAYED * Take 81 mg by mouth once sylvia* DICLOFENAC 1 % TOPICAL GEL Apply 2 g to affected area th* ESTRADIOL 0.01% (0.1 MG/ GRAM)* Use vaginally twice weekly ON*Medication notes this encounter DULOXETINE 60 MG CAPSULE, DELAYED RELEASE >> Jorge Lozada LPN 11/27/2016 8:42 AM >> JORGE LOZADA LPN FriNov 27, 2016 8:42 AM not taking 11/27/2016 ONDANSETRON HCL 4 MG TABLET >> Jorge Lozada LPN 11/27/2016 8 :42 AM >> JORGE LOZADA LPN FriNov 27, 2016 8:42 AM not takingProblem List As Of Date 2016 Noted Resolved Routine general medical examination at [facility]*INVALID FOR*02/2013 Priority: A Class: Chronic More... Routine gynecological examination [Z01.419] INVALID FOR*12/22/2012 Priority: B Class: Chronic Fibromyalgia [M79.7] INVALID FOR* More... 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 Encounter for screening colonoscopy [Z12.11] INVALID FOR* HTN (hypertension) [I10] INVALID FOR* More... Psychophysiological insomnia [F51.04] INVALID FOR* Depression [F32.9] INVALID FOR* JORGE (obstructive sleep apnea) RDI 67 CMS AHI *INVALID FOR* Lumbago [M54.5] INVALID FOR* DDD ( degenerative disc disease), lumbar [M51.36]INVALID FOR* Cervical spondylosis without myelopathy [M47.81*INVALID FOR* Cervicalgia [M54.2] INVALID FOR* Abnormal echocardiogram [R93.1] INVALID FOR* More...Prescriptions ordered this encounter Disp Refills Start End QUETIAPINE 100 MG TABLET 11/27/2016 Class: Med Update Route: ORAL Sig: Take 1 tablet by mouth once daily. Dr Shawnee Parker accepted by MD MONI GASTON[[id number]] on 2016 9:00 AM CLONAZEPAM 1 MG TABLET 30 t* 1 11/27/2016 Class: Print RX Si tab by mouth at bedtime. BUPROPION HCL SR 150 MG TABLET,SUSTA* 60 t* 2 11/27/2016 Route: ORAL Sig: Take 1 tablet by mouth twice daily.Medications Discontinued During This Encounter clonazePAM ( KLONOPIN) 1 mg tablet 30 t* 1 10/16/2016 11/27/2016 Class: Print RX Si tab by mouth at bedtime. Disc: Reason for discontinue is not on file. buPROPion SR (WELLBUTRIN SR) 150 mg * 60 t* 2 09/11/2016 11/27/2016 Route: ORAL Sig: Take 1 tablet by mouth twice daily. Disc: Reason for discontinue is not on file.Disposition: Return in about 6 months (around 05/29/2017).Follow-up and Disposition History RecordedEnckaiser fremont medical centerer Number: [id number] Status:Closed by MD MONI GASTON on 11/27/16 12 LEAD ELECTROCARDIOGRAM Observed: 11/22/2016 Status: F Source: [place] 1:42 PM [facility]IT[facility] [id number] [id number] Lead EKG011/20/16 1149MR#: [id number] Acct: [id number]: NORA GRANDE Rep #: [id number]: 1955 61 From: Jorge Berman MDAttending Dr: Status: DEP EROrdering Dr: Rebecca Perez MD Date: 11/20/16Location: ED Sex: F CAdmitted:Test Reason : SYNCOPEBlood Pressure : / mmHGVent. Rate : 074 BPM Atrial Rate : 074 BPMP-R Int : 156 ms QRS Dur : 090 msQT Int : 390 ms P-R-T Axes : -18 -22 008 degreesQTc Int : 432 msSinus rhythm with occasional Premature ventricular complexesOtherwise normal ECGConfirmed by JORGE BERMAN ([id number]), editor department MARIO ALBERTO AMBRIZ ([id number]) on 11/22/2016 1:41:58 PMReferred By: SHAR Confirmed By:JORGE BERMAN11/22/16 1342Date Jorge Berman MDCC: Alton Mallory DO Date Dictated: 11/20/16 1149Date Transcribed: 11/20/16 1149Transcriptionist: Signed EMERGENCY DEPARTMENT Observed: 11/20/2016 Status: F Source: [place] SUMMARY 3:28 PM [facility] RE[facility]IT[facility] [id number] [place] [address]Mkzbxnfji Department SummaryMR#: [id number] Acct: [id number]: NORA GRANDE Rep #: [id number]: 1955 61 From: Rebecca Perez MDPCP: Alton Mallory DO Status: DEP ERDATE OF SERVICE: 11/20/2016CHIEF COMPLAINT:Near-syncope.MTZ HISTORY:The patient is a 61-year-old female, who was having a dressing change on her right foot.She said the doctor pushed on her foot, she started feeling lightheaded, dizzy, and clammyand had a near syncopal episode. She denied any chest pain or palpitations. They askedher to come here to be checked.PHYSICAL EXAMINATION:VITAL SIGNS: Unremarkable.GENERAL: The patient is in no acute distress.HEART: Regular.LUNGS: Clear.ABDOMEN: Soft and nontender.EXTREMITIES: Right lower extremity examination reveals a dressing and a boot in place,this was not removed. The patient was placed on a potline monitor. EKG is obtained andunremarkable. The patient was observed here for a short period. She will be dischargedhome with family members.DISPOSITION:Discharge.IMPRESSION:Vasovagal near-syncope.Rebecca Perez MDT: NTSJOB: [id number] <Electronically signed by Rebecca Perez MD>Date Rebecca Perez [facility] Signature (If Indicated): Date ___CC: Alton Mallory DO Date Dictated: 11/20/16 1155Date Transcribed: 11/20/16 1155Transcriptionist:Signed DISCHARGE INSTRUCTION Observed: 11/20/2016 Status: F Source: [place] 11:30 AM [facility] RE[facility]IT[facility]ITAL[facility] [id number] [place] [address]Wmpeuunzz Ljgkpiqqyrm55/05/17 1129MR#: [id number] Acct: [id number]: NORA GRANDE Rep #: [id number]: 1955 61 From: Rebecca LINDACP: Alton Mallory DO Status: PRE ERED Disposition- Plan for ED Patient:Disposition: Home or Assisted LivingChief Complaint: SyncopeInstructions: ED Near Syncope VasovagalReferrals:Alton Mallory DO [ Primary Care Provider] - As NeededWhat to do if you have ProblemsFor any increased pain , shortness of breath, bleeding, nausea or vomiting, chest pain, or anyunexpected problems, contact your Primary Care Provider. Call [facility] ([phone])or report to the closest Emergency Room.Call 911 if necessary.11/20/16 1130 <Electronically signed by Rebecca Perez MD>Date Rebecca Perez [facility] Signature (If Indicated): Date CC: Alton Mallory DO PROGRESS Observed: 11/20/2016 Status: COMPLETED Source: [place] 10:59 AM [facility] [place] REPOSITORY O ID: [id number]: Rusty TestLaurentervice: (none) Author Type: PhysicianType: Progress NotesFiled: 11/20/2016 11:10 AMNote Text:DOS: 11/13/16POD: 7POV: 2Surgical side: rightThis 61 year old presents post op right 3rd interspace neuroma excision.Patient states the pain is decreasing. She does not take narcotics asmuch as she had to over the weekend. She denies n/v/f/c. She is nolonger using crutches.Pain level: improvingVomiting, fever, chills, shortness of breath: noPain Control: percocetWeightbearing status: Patient has been instructed to be nwb but now hasbeen applying some weight to her foot. Pain improved and less thanpre-op.Objective: Incision site is well coapted with no evidence of dehiscence.Mild erythema and edema surrounding surgical site. Erythema present toright surgical incision does improve with elevation of right foot. Mildecchymosis is present to right 2nd and 3rd toes extending medially. Nodrainage. No lymphadenopathy. No lymphangitis. No surroundingcellulitis.Patient has no pain to palpation of right calf. Negative Kerr's test.Assessment:(Z98.890) Post-operative state (primary encounter diagnosis)Plan:Patient was examined and informed of current findings. On exam, her footincision appears stable. Mild redness to her right foot that I trulysuspect to be inflammatory as the redness improves with elevation.Nevertheless, I am going to place patient on keflex tid. Bandage appliedtoday consisting of adaptic, 4x4 guaze, debby and adriano. I will havepatient apply on Friday. F/u in 1 week. Discussed bruising of bmcfm6ro and 3rd toes. infomred patient that her skin is very delicate andlikely associated with recent surgery. This should resolve as swellingimproves. Recommend patient continue to minimize any walking until hersurgical incision fully heals. Reviewed pathology. Pathology withfibroadipose tissue. Pain greatly improved compared to pre- opDuring exam, patient became very nauseated and had syncopal episode x 1.She took all am medication today without having any breakfast. Patientnever lost consciousness but in my opinion does not appear to be atbaseline. Glucose tablet was given. Cold compress applied to herforehead. EMS contacted. Patient transported via ems to [facility] instable condition. Blood pressure taken today was 92/72. Following 5minutes, 90/68. Pulse was 60.Patient to f/u in 1 weekMatttamiw RENÉE Perry Observed: 11/20/2016 Status: COMPLETED Source: [place] 10:10 AM [facility] [place] REPOSITORY Office Visit (PODIWS) ---------NORA GRANDE ([id number]) 1955 FDate Time Provider Department11/20/16 10:10 AM RUSTY PERRY During your visit today, we recorded the following information about you: Pulse Blood pressure 60/minute 90/68Matthew RENÉE Perry 11/20/2016 11:10 AM SignedDOS: 11/13/16POD: 7POV: 2Surgical side: rightThis 61 year old presents post op right 3rd interspace neuroma excision.Patient states the pain is decreasing. She does not take narcotics as much asshe had to over the weekend. She denies n/v/f/c. She is no longer usingcrutches.Pain level: improvingVomiting, fever, chills, shortness of breath : noPain Control: percocetWeightbearing status: Patient has been instructed to be nwb but now has beenapplying some weight to her foot. Pain improved and less than pre-op.Objective: Incision site is well coapted with no evidence of dehiscence. Milderythema and edema surrounding surgical site. Erythema present to rightsurgical incision does improve with elevation of right foot. Mild ecchymosisis present to right 2nd and 3rd toes extending medially. No drainage. Nolymphadenopathy. No lymphangitis. No surrounding cellulitis.Patient has no pain to palpation of right calf. Negative Kerr's test.Assessment:(Z98.890) Post-operative state (primary encounter diagnosis) Plan:Patient was examined and informed of current findings. On exam, her footincision appears stable. Mild redness to her right foot that I truly suspectto be inflammatory as the redness improves with elevation. Nevertheless, I amgoing to place patient on keflex tid. Bandage applied today consisting ofadaptic, 4x4 guaze, debby and adriano. I will have patient apply on Friday. F/uin 1 week. Discussed bruising of right 2nd and 3rd toes. infomred patientthat her skin is very delicate and likely associated with recent surgery. Thisshould resolve as swelling improves. Recommend patient continue to minimizeany walking until her surgical incision fully heals. Reviewed pathology.Pathology with fibroadipose tissue. Pain greatly improved compared to pre-opDuring exam, patient became very nauseated and had syncopal episode x 1. Shetook all am medication today without having any breakfast. Patient never lostconsciousness but in my opinion does not appear to be at baseline. Glucosetablet was given. Cold compress applied to her forehead. EMS contacted.Patient transported via ems to [facility] ED in stable condition. Blood pressuretaken today was 92/72. Following 5 minutes, 90/68. Pulse was 60.Patient to f/u in 1 weekMatthew SHERIDAN PerryMReferring Provider: RUSTY PERRY [[id number]] Allergies As of Date: 11/20/2016 Noted Allergy ReactionCIPROFLOXACIN 11/04/2013 8 - GI Upset 11 - Vomiting Comments: DizzinessCODEINE 02/12/2011 4 - Hives 9 - Itching Comments: Generalized.Date Reviewed: 11/20/2016Reviewed by: Zaira Dorado Student - Fully AssessedReason for Visit: Surgical Followup [104]Primary Visit Diagnosis:Post-operative state [ Z98.890]Order(s):cephALEXin (KEFLEX) 500 mg capsuleTake 1 capsule by mouth three times daily.Disp: 21 capsuleRfl: 0Prescriptions as of 11/20/2016 Sig: PREGABALIN 100 MG CAPSULE Take 1 capsule by mouth three* BREO ELLIPTA INHALATION Inhale as instructed once da* INCRUSE ELLIPTA INHALATION Inhale as instructed once da* CLONAZEPAM 1 MG TABLET 1 tab by mouth at bedtime. BUPROPION HCL SR 150 MG TABLE* Take 1 tablet by mouth twice * LIDOCAINE 5 % TOPICAL PATCH Apply 1 Patch as directed onc* TRIAMCINOLONE ACETONIDE 0.1 %* Apply 1 application to affect* NYSTATIN 100,000 UNIT/GRAM TO* apply twice daily to affected* DULOXETINE 60 MG CAPSULE,ALFRED* Take 1 capsule by mouth once * HYDROXYZINE HCL 25 MG TABLET Take 1 tablet by mouth every * CAPSAICIN 0.025 % TOPICAL CRE* Apply to soles of feet as nee* COMPOUNDED PRESCRIPTION DuaL Gabapentin 6% diclofenac* HYDROCHLOROTHIAZIDE 25 MG TAB* Take 1 tablet by mouth once d* CPAP CPAP 11 cmH2O, suitable mask,* PEDIATRIC MULTIVITAMIN GUMMY * Take 2 tablets by mouth once * ONDANSETRON HCL 4 MG TABLET Take 1 tablet by mouth every * ASPIRIN 81 MG TABLET,DELAYED * Take 81 mg by mouth once sylvia* DICLOFENAC 1 % TOPICAL GEL Apply 2 g to affected area th* ESTRADIOL 0.01% (0.1 MG/GRAM)* Use vaginally twice weekly ON* CEPHALEXIN 500 MG CAPSULE Take 1 capsule by mouth three* OXYCODONE-ACETAMINOPHEN 5 MG-* Take 1-2 tablets by mouth shanice*Medication notes this encounter OXYCODONE-ACETAMINOPHEN 5 MG-325 MG TABLET >> Zaira Riley 11/20/2016 10:12 AM >> ZAIRA NOLASCO FriNov 20, 2016 10:12 AM Not takingProblem List As Of Date 11/20/2016 Noted Resolved Routine general medical examination at [facility]*INVALID FOR*12/22/2012 Priority: A Class: Chronic More... Routine gynecological examination [Z01.419] INVALID FOR*12/22/2012 Priority: B Class: Chronic Fibromyalgia [M79.7] INVALID FOR* More... 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 Encounter for screening colonoscopy [Z12.11] INVALID FOR* HTN (hypertension) [I10] INVALID FOR* More... Psychophysiological insomnia [F51.04] INVALID FOR* Depression [F32.9] INVALID FOR* JORGE (obstructive sleep apnea) RDI 67 CMS AHI *INVALID FOR* Lumbago [M54.5] INVALID FOR* DDD (degenerative disc disease), lumbar [M51.36]INVALID FOR* Cervical spondylosis without myelopathy [M47.81*INVALID FOR* Cervicalgia [M54.2] INVALID FOR* Abnormal echocardiogram [R93.1] INVALID FOR* More...Prescriptions ordered this encounter Disp Refills Start End CEPHALEXIN 500 MG CAPSULE 21 c* 0 11/20/2016 Route: ORAL Sig: Take 1 capsule by mouth three times daily. Status:Closed by RUSTY PERRY DPM on 11/20/16 PROGRESS Observed: 11/15/2016 Status: COMPLETED Source: [place] 10:46 AM [facility] [place] REPOSITORY HNO ID: [id number]: Rusty PradokeService: (none) Author Type: PhysicianType: Progress NotesFiled: 11/15/2016 10:52 AMNote Text:DOS: 11/13/16POD: 2POV: 1Surgical side: rightThis 61 year old presents post op right 3rd interspace neuroma excision.Pain level: 5/10Vomiting, fever, chills, shortness of breath: noPain Control: Percocet but she is only taking as needed. She has foundthat she does not requireWeightbearing status: nwb with crutches. Patient reports to heel touchShe continues to smoke despite recommendations not to do soObjective: Incision site is well coapted with no evidence of dehiscence.Mild bruising is noted along the right 2nd and 3rd toes and mild bruisingis noted along plantar forefoot. Mild erythema and edema surroundingsurgical site. No drainage. No lymphadenopathy. No lymphangitis. Nosurrounding cellulitis.Patient has no pain to palpation of right calf. Negative Kerr's test.Assessment:(Z98.890) Post-operative state (primary encounter diagnosis)Plan:Patient was examined and informed of current findingsShe is 2 days post-op neuroma excision. I am seeing her today because Iknow she is a smoker and I want to be sure her wounds appear stable andfree of infection. Her foot looks stable. There is some bruising notedalong the right 2nd and 3rd toes and very slight bruising of plantarforefoot. There are no signs of infection. No evidence of dehisence. Noevidence of hematoma.Patient barely taking pain medication. Reports that pain is better.Discussed intra-op findings of fatty infiltration along nerve in additionto prominent scar tissue. Suspect this to be component of patient pain.Informed patient also that she has significant atrophy of plantar fat padso that doesn't help as well.I am pleased with the appearance of her foot. She is to continue toprotect the foot with surgical shoe. She is to keep clean and dry and notto get wet. Patient informed that smoking does interfere with healing andthat she can be at risk of nonhealing of surgical incision if shecontinues to do so. She understands that she is at risk of infectionand/or need for amputation if wound does not heal.Patient is pleased with progress thus far. I will see her on Friday asscheduled. Any questions, she is to contact the office.Rusty Perry DPM CNOV Observed: 11/15/2016 Status: COMPLETED Source: [place] 10:10 AM [facility] [place] REPOSITORY Office Visit (PODIWS) ---------NORA GRANDE ([id number]) 1955 FDate Time Provider Department11/15/16 10:10 AM RUSTY PERRY PODIWS During your visit today, we recorded the following information about you:Rusty Perry DPM 11/15/2016 10:52 AM SignedDOS: POD: 2POV: 1Surgical side: rightThis 61 year old presents post op right 3rd interspace neuroma excision.Pain level: 5/10Vomiting, fever, chills, shortness of breath: noPain Control: Percocet but she is only taking as needed. She has found thatshe does not requireWeightbearing status: nwb with crutches. Patient reports to heel touchShe continues to smoke despite recommendations not to do soObjective: Incision site is well coapted with no evidence of dehiscence. Mildbruising is noted along the right 2nd and 3rd toes and mild bruising is notedalong plantar forefoot. Mild erythema and edema surrounding surgical site. Nodrainage. No lymphadenopathy. No lymphangitis. No surrounding cellulitis.Patient has no pain to palpation of right calf. Negative Kerr's test.Assessment:( Z98.890) Post-operative state (primary encounter diagnosis)Plan:Patient was examined and informed of current findingsShe is 2 days post-op neuroma excision. I am seeing her today because I knowshwesley is a smoker and I want to be sure her wounds appear stable and free ofinfection. Her foot looks stable. There is some bruising noted along theright 2nd and 3rd toes and very slight bruising of plantar forefoot. There areno signs of infection. No evidence of dehisence. No evidence of hematoma.Patient barely taking pain medication. Reports that pain is better. Discussedintra-op findings of fatty infiltration along nerve in addition to prominentscar tissue. Suspect this to be component of patient pain. Informed patientalso that she has significant atrophy of plantar fat pad so that doesn't helpas well.I am pleased with the appearance of her foot. She is to continue to protectthe foot with surgical shoe. She is to keep clean and dry and not to get wet.Patient informed that smoking does interfere with healing and that she can beat risk of nonhealing of surgical incision if she continues to do so. Sheunderstands that she is at risk of infection and/or need for amputation ifwound does not heal.Patient is pleased with progress thus far. I will see her on Friday asscheduled. Any questions, she is to contact the office.SHERIDAN GoodenMReferring Provider: RUSTY PERRY [[id number]]Allergies As of Date: 2016 Noted Allergy ReactionCIPROFLOXACIN 11/04/2013 8 - GI Upset 11 - Vomiting Comments: DizzinessCODEINE 02/12/2011 4 - Hives 9 - Itching Comments: Generalized.Date Reviewed: 11/15/2016Reviewed by: Mena Troncoso RN - Fully AssessedReason for Visit: Surgical Followup [104]Primary Visit Diagnosis:Post-operative state [Z98.890]Prescriptions as of 11/15/2016 Sig: OXYCODONE-ACETAMINOPHEN 5 MG-* Take 1-2 tablets by mouth shanice* PREGABALIN 100 MG CAPSULE Take 1 capsule by mouth three* BREO ELLIPTA INHALATION Inhale as instructed once da* INCRUSE ELLIPTA INHALATION Inhale as instructed once da* CLONAZEPAM 1 MG TABLET 1 tab by mouth at bedtime. BUPROPION HCL SR 150 MG TABLE* Take 1 tablet by mouth twice * LIDOCAINE 5 % TOPICAL PATCH Apply 1 Patch as directed onc* TRIAMCINOLONE ACETONIDE 0.1 %* Apply 1 application to affect* NYSTATIN 100,000 UNIT/GRAM TO* apply twice daily to affected* DULOXETINE 60 MG CAPSULE,ALFRED* Take 1 capsule by mouth once * HYDROXYZINE HCL 25 MG TABLET Take 1 tablet by mouth every * CAPSAICIN 0.025 % TOPICAL CRE* Apply to soles of feet as nee* COMPOUNDED PRESCRIPTION DuaL Gabapentin 6% diclofenac* HYDROCHLOROTHIAZIDE 25 MG TAB* Take 1 tablet by mouth once d* CPAP CPAP 11 cmH2O, suitable mask,* PEDIATRIC MULTIVITAMIN GUMMY * Take 2 tablets by mouth once * ONDANSETRON HCL 4 MG TABLET Take 1 tablet by mouth every * ASPIRIN 81 MG TABLET,DELAYED * Take 81 mg by mouth once sylvia* DICLOFENAC 1 % TOPICAL GEL Apply 2 g to affected area th* ESTRADIOL 0.01% (0.1 MG/GRAM)* Use vaginally twice weekly ON*Problem List As Of Date 11/15/2016 Noted Resolved Routine general medical examination at a [facility]*INVALID FOR*12/22/2012 Priority: A Class: Chronic More... Routine gynecological examination [Z01.419] INVALID FOR*12/22/2012 Priority: B Class: Chronic Fibromyalgia [M79.7] INVALID FOR* More... 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 Encounter for screening colonoscopy [Z12.11] INVALID FOR* HTN (hypertension) [I10] INVALID FOR* More... Psychophysiological insomnia [F51.04] INVALID FOR* Depression [F32.9] INVALID FOR* JORGE (obstructive sleep apnea) RDI 67 CMS AHI *INVALID FOR* Lumbago [M54.5] INVALID FOR* DDD (degenerative disc disease), lumbar [M51.36]INVALID FOR* Cervical spondylosis without myelopathy [M47.81*INVALID FOR* Cervicalgia [M54.2] INVALID FOR* Abnormal echocardiogram [R93.1] INVALID FOR* More... Status:Closed by RUSTY PERRY DPM on 11/15/16 NURSING PROG Observed: 11/13/2016 Status: COMPLETED Source: [place] 11:15 AM [facility] [place] REPOSITORY HNO ID: [id number]: Florencio GoveaAshwin Fuentes: (none)Author Type: Registered NurseType: Nursing Progress NoteFiled: 11/13/2016 11:37 AMNote Text:Patient did not experience a fall prior to discharge.Patient did not experience a burn prior to discharge.Florencio Goncalves RN NURSING PROG Observed: 11/13/2016 Status: COMPLETED Source: [place] 11:01 AM [facility] [place] REPOSITORY HNO ID: [id number]: Florencio Govea) Ashwin Goncalves: (none)Author Type: Registered NurseType: Nursing Progress NoteFiled: 11/13/2016 11:04 AMNote Text:Dressing at bedside NURSING PROG Observed: 11/13/2016 Status: COMPLETED Source: [place] 10:55 AM [facility] [place] REPOSITORY HNO ID: [id number]: Florencio Govea) Ashwin Goncalves: (none)Author Type: Registered NurseType: Nursing Progress NoteFiled: 11/13/2016 11:05 AMNote Text:Skin to right lower extremity pink, warm and dry, capillary refill brisk.ROM intact to toes on right lower extremity. Initial post op dressing dryand intact. Denies pain. Denies nausea. ANES POST Observed: 11/13/2016 Status: COMPLETED Source: [place] 10:42 AM [facility] [place] REPOSITORY HNO ID: [id number]: Jackie Pepeice: AnesthesiologyAuthor Type: AnesthesiologistType: Anesthesia PostOpFiled: 11/13/2016 10:43 AMNote Text :POST ANESTHESIA EVALUATION NOTESERVICE DATE: 11/13/2016SERVICE TIME: 10:43 AMDOB: 1955Vitals: 11/13/1708Temp: 36 ?C (96.8 ?F) 36.2 ?C (97.2 ?F ) 11/13/1708BP: 114/65 116/58 116/64 114 /67 11/13/1708Pulse: 69 74 64 (!) 54 11/13/1708955 03/29/349449Elas: 16 10 16 16 749 11/13/1708SpO2: 96% 96% 94% 97%Validated Vital Signs: YesNo apparent anesthetic complications. The patient is appropriatelyhydrated with stable respiratory and cardiovascular status. Patient hassafe and adequate airway control. The patient has appropriate pain reliefand no significant post operative nausea or vomiting. The patient hasachieved baseline mental status.Further assessment by Anesthesia Service: NoneOther Remarks:SIGNATURE: Jackie Venegas MD PATIENT NAME: Nora GrandeDATE: November 13, 2016 : 10:43 AM PAGER/CONTACT # : [phone] NURSING PROG Observed: 11/13/2016 Status: COMPLETED Source: [place] 10:40 AM [facility] [place] REPOSITORY HNO ID: [id number]: Florencio (Rn) ODILON Goncalveservice: (none)Author Type: Registered NurseType: Nursing Progress NoteFiled: 11/13/2016 10:46 AMNote Text:Sitting upright in bed with HOB elevated. Denies nausea. Denies pain.Continues with snack and fluids. PT ED Observed: 11/13/2016 Status: COMPLETED Source: [place] 10:40 AM [facility] [place] REPOSITORY HNO ID: [id number]: Florencio Govea) ODILON Goncalveservice: (none)Author Type: Registered NurseType: Patient EducationFiled: 11/13/2016 10: 47 AMNote Text:AMBULATORY PATIENT EDUCATIONTOPIC: Survival Skills: PROCEDURE / SURGERY: Post-op Teaching: MedAdministration, Symptom Management and Wound CareREADINESS TO LEARNCOGNITIVE ABILITY: Alert and orientedMOTIVATION TO LEARN: EagerFAMILY SUPPORT: High - Very involved in pt careINSTRUCTION PROVIDED TO: Patient and family memberPATIENT LEARNS BEST BY: Multiple MethodsFACTORS AFFECTING LEARNING: NonePHYSICAL LIMITATIONS AFFECTING LEARNING: NoneLEARNING RESPONSEDIAGNOSIS: Neuroma right footMETHOD OF INSTRUCTION: Individual instructionWritten instruction - handoutsVerbal instructionPATIENT / FAMILY RESPONSE: Verbalizes understanding of: CIXD-RORQOIKTYBHFZSGIYHCCE-Qurimxe actions to take to reduce postoperative complicationsSYMPTOM MANAGEMENT-Correct actions to take to manage symptoms associatedwith his/her disease/illnessWORSENING CONDITION-Signs and symptoms of a worsening condition thatwarrant a call to the physicianFOLLOW-UP PLAN: Follow up phone call.SUPPLEMENTAL MATERIAL: Post op discharge instructionsPatient's medication list and discharge instructions were reviewed withand given to patient and/or caregiver. Patient and/or caregiver given theopportunity to ask questions and verbalized their understanding ofcontent.REFERRAL (RECOMMENDATION): NoneElectronically Signed By: Florencio Goncalves RN In Department: AMBULATORYSURGERY NURSING PROG Observed: 11/13/2016 Status: COMPLETED Source: [place] 10:30 AM [facility] [place] REPOSITORY HNO ID: [id number]: Florencio Govea) Ashwin Goncalves: (none)Author Type: Registered NurseType: Nursing Progress NoteFiled: 11/13/2016 10:37 AMNote Text:Medicated per orders with Percocet 5/325 1 tablet per orders. NURSING PROG Observed: 11/13/2016 Status: COMPLETED Source: [place] 10:25 AM [facility] [place] REPOSITORY HNO ID: [id number]: Ashwin Beatty Rn: (none)Author Type: Registered NurseType: Nursing Progress NoteFiled: 11/13/2016 10:36 AMNote Text:Sitting upright in bed with HOB elevated. Denies nausea. Denies pain.Taking snack and fluids without difficulty. Declines family at bedside. NURSING PROG Observed: 11/13/2016 Status: COMPLETED Source: [place] 10:20 AM [facility] [place] REPOSITORY HNO ID: [id number]: Ashwin Beatty Rn: (none)Author Type: Registered NurseType: Nursing Progress NoteFiled: 11/13/2016 10:21 AMNote Text: Awake per self. HOB elevated. Denies nausea. Denies pain to rightlower extremity. Taking ice chips without difficulty. NURSING PROG Observed: 11/13/2016 Status: COMPLETED Source: [place] 10:10 AM [facility] [place] REPOSITORY HNO ID: [id number]: Florencio Govea) Ashwin Goncalves: (none)Author Type: Registered NurseType: Nursing Progress NoteFiled: 11/13/2016 10:12 AMNote Text:In bed resting supine with HOB slightly elevated. Respirations easy andeven. Eyes closed, sleeping. No s/s of discomfort noted. Pillowelevation in place to right lower extremity BRIEF OP NOT Observed: 11/13/2016 Status: COMPLETED Source: [place] 9:41 AM [facility] [place] REPOSITORY HNO ID: [id number]: Byron (Abiola) OrtaService: PodiatryAuthor Type: ResidentType: Brief Op NoteFiled: 11/13/2016 9:44 AMNote Text:BRIEF OP NOTELOG ID: [id number]/Procedure Date: 11/13/2016Incision/Procedure Start Time: 8:58 AMIncision Close/Procedure End Time: 9:32 AMSurgeon(s)/Proceduralist(s) and Sound Engineer Audio Control(s):Surgeon(s) and Role: * Rusty Ruvalcabarake - Primary * Byron (Abiola ) Reginaldo - Resident - AssistingProcedure(s): EXCISION NEUROMA EXTREMITY LOWER (Right)Anesthesia: Monitored Anesthesia CareFindings: consistent with pre-op diagnosisEstimated Blood Loss: minimalSpecimens: neuroma right footComplications: NonePre-Op/Pre-Procedure Diagnosis: NEUROMA EXTREMITY LOWER (Right)Post-Op/Post-Procedure Diagnosis: NEUROMA EXTREMITY LOWER (Right)? SIGNATURE: Byron Hair DPM PATIENT NAME: Nora GrandeDATE: November 13, 2016 : 9:43 AM PAGER/CONTACT #: [phone] NURSING PROG Observed: 11/13/2016 Status: COMPLETED Source: [place] 9:40 AM [facility] [place] REPOSITORY HNO ID: [id number]: Florencio (Rn) ODILON Goncalveservice: (none)Author Type: Registered NurseType: Nursing Progress NoteFiled: 11/13/2016 10:00 AMNote Text:Received from OR supine with HOB slightly elevated. Respirations easyand even. Slightly drowsy, arouses easily to verbal stimuli. Deniesnausea. Denies pain. Pillow elevation initiated to right lowerextremity. Skin to right lower extremity pink, warm and dry, capillaryrefill brisk, ROM intact to toes right foot. NURSING PROG Observed: 11/13/2016 Status: COMPLETED Source: [place] 9:32 AM [facility] [place] REPOSITORY HNO ID: [id number]: Isi Peguero (Rn) Delroy, ODILONervice: (none)Author Type: Registered NurseType: Nursing Progress NoteFiled: 11/13/2016 9:32 AMNote Text:Patient did not experience a fall within the Intraoperative area.Patient did not experience a burn within the Intraoperative area.Isi Potts RN NURSING PROG Observed: 11/13/2016 Status: COMPLETED Source: [place] 8:36 AM [facility] [place] REPOSITORY HNO ID: [id number]: Franca Regalado (Rn) Jodi, ODILONervice: NursingAuthor Type: Registered NurseType: Nursing Progress NoteFiled : 11/13/2016 8:37 AMNote Text:[facility] PRE-OP NURSING HAND OFF NOTESBAR Hand off given to Isi Potts RN .Hand off was communicated verbally and at the patient's bedside and allquestions were answered. FALLS/BURNSPatient did not experience a fall within the Preoperative area.Patient did not experience a burn within the Preoperative area.Franca Zapata RN PROGRESS Observed: 11/13/2016 Status: COMPLETED Source: [place] 8:25 AM [facility] [place] REPOSITORY HNO ID: [id number]: Byron (Res) OrtaService: PodiatryAuthor Type: ResidentType: Progress NotesFiled: 11/13/2016 8:25 AMNote Text: ORTHOPAEDIC PRE-OPERATIVE NOTESERVICE DATE: 11/13/2016SERVICE TIME: 8:25 AMDIAGNOSIS: NEUROMA EXTREMITY LOWER (Right)PROCEDURE(S): EXCISION NEUROMA EXTREMITY LOWER (Right) Consent on chart: YesLABS:CBC:WBC 6.50 03/22/2014Hemoglobin 16.0 03/22/2014Hematocrit 48.6 2013Platelet Count 271 03/22/2014CMP:Sodium 138 08/04/2015Potassium 4.0 08/04/2015BUN 10 08/04/2015Creatinine 1.29 01/16/2016Glucose 102 08/04/2015COAGS:No results found for this basename: aptt,inrURINALYSIS:Ketones, Urine neg 10/10/2014Nitrites neg 10/10/2014Specific [place], Ur 1.020 10/10/2014Protein, Urine neg 10/10/2014Leukocytes neg 10/10/2014Type AND cross: NoMedical Clearance: YesCXR/EKG: YesMedications/ Preop Antibiotics: AncefALLERGIESAllergen Reactions- Ciprofloxacin GI Upset, Vomiting Dizziness- Codeine Hives, Itching Generalized.Surgical site identified: YesNPO: YesIV Fluids: YesRisks and benefits, complications, treatment options, expected outcome andrehabilitation explained, patient understands. All questions wereentertained and answered. Patient wishes to proceed with aboveprocedure(s).SIGNATURE: Byron Hair DPM PATIENT NAME: Nora GrandeDATE: November 13, 2016 : 8:25 AM NURSING PROG Observed: 11/13/2016 Status: COMPLETED Source: [place] 8:20 AM [facility] [place] REPOSITORY HNO ID: [id number]: Staci (Rn) ODILON Garveyervice : (none)Author Type: Registered NurseType: Nursing Progress NoteFiled: 11/13/2016 8:23 AMNote Text:Dr Perry in to see pt and alton foot. ANES PREOP Observed: 11/13/2016 Status: COMPLETED Source: [place] 7:59 AM [facility] [place] REPOSITORY HNO ID: [id number]: Jackie Jarquinervice: AnesthesiologyAuthor Type: AnesthesiologistType: Anesthesia PreOpFiled: 11/13/2016 8:01 AMNote Text: ANESTHESIOLOGY DAY OF SURGERY NOTE REGIONALSERVICE DATE: 11/13/2016SERVICE TIME : 7:59 AMDOB: 1955Procedure(s) (LRB):EXCISION NEUROMA EXTREMITY LOWER (Right)Surgeon(s):Rusty English (Res) OrtaEstimated body mass index is 27.78 kg/(m2) as calculated from thefollowing: Height as of 10/22/16: 157.5 cm (5' 2) . Weight as of this encounter: 68.9 kg (151 lb 14.4 oz).Most recent hematocrit and potassium results:Hematocrit 48.6 03/22/2014Potassium 4.0 08/04/2015Vitals: [id number]: 114/65Pulse: 69Resp: 16Temp: 36 ?C (96.8 ?F)TempSrc: Temporal ArterySpO2: 96%Weight: 68.9 kg (151 lb 14.4 oz) ACTIVE PROBLEM LISTFibromyalgiaCapsulitisVain (Vaginal Intraepithelial Neoplasia)Postmenopausal Atrophic VaginitisCopd (Chronic Obstructive Pulmonary Disease) (Hcc)Tobacco Use Disorder, ContinuousPatent Foramen OvaleEncounter for Screening ColonoscopyHtn (Hypertension)Psychophysiological InsomniaDepressionOSA (obstructive sleep apnea) RDI 67 CMS AHI 1.3LumbagoDdd (Degenerative Disc Disease), LumbarCervical Spondylosis Without MyelopathyCervicalgiaAbnormal EchocardiogramPAST MEDICAL HISTORYDiagnosis Date- Abnormal echocardiogram 10/18/2016 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 (11/2015)- Abnormal Pap smear- COPD (chronic obstructive pulmonary disease) ([facility])- Fibromyalgia- Other and unspecified ovarian cyst Ovarian cyst- Patent foramen ovale 07/19/2014- Skin cancer- Tobacco use- Tobacco use disorder, continuous 07/19/2014- Urinary tract infectionPAST SURGICAL [id number] : CARPAL TUNNEL Comment: bilateral11/23/14: COLONOSCOP W/ OR W/O [facility] SPEC Comment: ColonoscopyNo date: PAST SURGICAL HISTORY OF Bilateral Comment: foot surgeries-[id number]: TOTAL ABDOM HYSTERECTOMY Comment: Hysterectomy, SAGE Cysts on ovaries,FAMILY HISTORY Heart Father Comment: [place] Breast Cancer Maternal Grandmother Comment: Ovarian as well Cancer Maternal Grandmother Comment: breast and ovary. Heart Brother Heart BrotherSocial History:Social HistorySubstance Use Topics- Smoking status: Current Some Day Smoker Packs/day: 0.50 Start date: 08/18/1979- Smokeless tobacco: Never Used- Alcohol use NoNo current facility-administered medications on file prior to encounter.Current Outpatient Prescriptions on File Prior to Encounter:DULoxetine (CYMBALTA) 60 mg capsule Take 1 capsule by mouth once daily.capsaicin (ZOSTRIX) 0.025 % cream Apply to soles of feet as needed forburning sensation.buPROPion SR (WELLBUTRIN SR) 150 mg 12 hr tablet Take 1 tablet by mouthtwice daily.lidocaine (LIDODERM) 5 % Apply 1 Patch as directed once daily. TO AFFECTEDAREA. REMOVE AFTER 12 HOURS.triamcinolone acetonide (KENALOG) 0.1 % cream Apply 1 application toaffected area twice daily.nystatin (MYCOSTATIN) cream apply twice daily to affected area/ skin rash.hydrOXYzine HCl (ATARAX) 25 mg tablet Take 1 tablet by mouth every 6 hoursas needed.COMPOUNDED PRESCRIPTION DuaL Gabapentin 6% diclofenac 3% (M) cream .Apply 2-4 pumps to affected area (bilateral hips) 3-4 times per day.hydrochlorothiazide (HYDRODIURIL, ESIDRIX) 25 mg tablet Take 1 tablet bymouth once daily.CPAP CPAP 11 cmH2O, suitable mask, tubing, humidifier, filters. Lifetimesupplies. Dx: 327.23 - Obstructive sleep apneapediatric multivitamin gummy without iron (JENNIFER DOO) chew chewabletablet Take 2 tablets by mouth once daily.ondansetron (ZOFRAN) 4 mg tablet Take 1 tablet by mouth every 8 hours asneeded.aspirin, enteric coated (ASPIRIN, ENTERIC COATED) 81 mg EC tablet Take 81mg by mouth once daily.Diclofenac Sodium (VOLTAREN) 1 % gel Apply 2 g to affected area threetimes daily.estradiol (ESTRACE) 0.01 % (0.1 mg/gram) vaginal cream Use vaginally twiceweekly ONE GRAMCurrent Facility-Administered Medications:lidocaine 10 mg/ mL (1 %) 1-2 mg injection (XYLOCAINE) 0.1-0.2 mLINTRADERMAL PRN Byron (Res) Ortalactated ringers infusion 5-30 mL/hr INTRAVENOUS CONTINUOUS Byron (Res)OrtaceFAZolin 2 g in dextrose (iso-osmotic) 50 mL (ANCEF,KEFZOL) 2 gINTRAVENOUS Pre-Op Once Byron ( Res) OrtaAllergies:ALLERGIESAllergen Reactions- Ciprofloxacin GI Upset, Vomiting Dizziness- Codeine Hives, Itching Generalized.Adequate NPO status : YesAnesthetic risks, benefits, alternatives, personnel and consent discussed:YesPatient agrees to proceed: YesPrevious Anesthesia: History of difficult intubation:Airway Assessment: MP 2; Neck ROM: Limited Flexion and Extension; AirwayEvaluation: No significant abnormalitiesDentition: Dentures: upperRemovable partial: lowerAdditional Physical Exam:Lungs: Patient health status unchanged since recent history and physical.See history and physical for exam findings.Cardiac: Patient health status unchanged since recent history andphysical. See history and physical for exam findings.Additional pertinent findings: N/ASymptoms of Sleep Apnea: JORGE on CPAPBlood Products: Not anticipated for this procedureAnesthetic Plan: MAC with general as back up; Standard ASA MonitorsPain Management Plan: Parenteral or OralASA Class: 3Other Medical Problems: NoneChronic Beta Aliza medication administered within 24 hours: N/AI have interviewed and examined the patient. I have reviewed the medicalrecord and/or the pre-anesthesia evaluation, pertinent labs , and testresults.Significant changes in the patient's condition since the History andPhysical, not otherwise documented in primary service progress notes: NoThis contains updated information obtained within 48 hours ofSurgery/ Procedure.SIGNATURE: Jackie Venegas MD PATIENT NAME: Nora GrandeDATE: November 13, 2016 : 7:59 AM CSN: [id number] NURSING PROG Observed: 11/13/2016 Status: COMPLETED Source: [place] 7:58 AM [facility] [place] REPOSITORY HNO ID: [id number]: Staci (Rn) ODILON Garveyervice : (none)Author Type: Registered NurseType: Nursing Progress NoteFiled: 11/13/2016 7:59 AMNote Text:Dr Minerva Venegas in to see pt. NURSING PROG Observed: 11/13/2016 Status: COMPLETED Source: [place] 7:54 AM [facility] [place] REPOSITORY HNO ID: [id number]: Staci Govea) ODILON Garveyervice : (none)Author Type: Registered NurseType: Nursing Progress NoteFiled: 11/13/2016 7:56 AMNote Text:Dr Minerva Venegas informed that pt states her dentures are glued in and will notcome out. Also informed of rings x4 on two fingers and 2 belly buttonrings. Pt states unable to remove. Also informed of statement of difficultintubation. OPERATIVE NO Observed: 11/13/2016 Status: COMPLETED Source: [place] 12:00 AM [facility] [place] REPOSITORY HNO ID: [id number]: Rusty RuvalcabarakeService: PodiatryAuthor Type: PhysicianType: Operative ReportFiled: 11/13/2016 8:19 PMNote Text: [facility] [address] [place]OPERATIVE REPORTNAME: NORA GRANDE [facility] #: [id number]: 11/13/2016 AGE: 61SURGEON 1: MARIBEL GoodenURGENEIL 2:WOOD TYPE FINISHER 1: TRISTAN HarrisISTANT 2:OPERATION: Excision of neuroma, right third interspace. Steroid injection, right 3rd interspaceANESTHESIA: Monitored anesthesia care with local field block.PREOPERATIVE DIAGNOSIS: Neuroma, right third interspace.POSTOPERATIVE DIAGNOSIS: Neuroma, right third interspace.OPERATIVE INDICATIONS: The patient is a very pleasant female, who haspersistent pain of the right foot. She primarily has pain along theright second and third interspaces. She has history of radiofrequencyablation to her right foot several years ago and most recently, lastyear. The radiofrequency ablation helped to resolve her pain, but thepain unfortunately returned to both her second and third interspace ofher right foot. She has been seen by me recently for the past severalmonths. We have injected both the right second and third interspaces.The second interspace, the injection help to continue to resolve herpain. The injection to the third interspace took her pain levelsignificantly down and help to improve her pain for about 1 monthduration. She has tried padding wider shoes, inserts, anti- inflammatorymedications without improvement. Again noted, she had a radiofrequencyablation, which helped initially, but the pain has returned. I discussedsurgical intervention with the patient. I discussed excision of theneuroma. I informed the patient that she does on clinical exam have painboth second and third interspace, the second interspace is still doingwell with the injection. She would like to pursue surgical intervention. She understands as I told her that I would only remove one interspaceneuroma at a time, given the fact that any vascular compromise couldresult in injury to the toes and/or risk amputation. I have discussed the procedure in great detail. I have discussed the complications associatedwith removal of neuroma. Specifically, I informed the patient that woundhealing issues, dehiscence of wound incision, infection both of the skinsubcutaneous tissue and/or bone, recurrence of neuroma, deep spaceinfection resulting in loss of digit due to amputation, vascularcompromise, which could result in amputation of digit, cardiac arrest,DVT and . I have informed the patient the postoperative care. Alessandro have her use crutches postoperatively. She could put weight on theheel, but I want her to limit her walking, any excessive walking couldresult in increased swelling and/or risk of wound healing issues. Otherrisks certainly include bleeding, deep space hematoma, etc. The patientunderstands that we could continue with conservative care including widershoes, injections, and anti-inflammatory medications. The patient is asmoker and she has recently started back after stopping for a period oftime. She states a pack would last for about a week. I have informedthe patient that smoking does increase complications potentially. I havesuggested that she wait until she stops smoking. The patient is verypersistent that she is in significant pain. She is not interested in anyother conservative care at this time. She is willing to take the risksassociated with this. Again, I went over all risks not limited to,infection, pain, swelling, bleeding, wound dehiscence, risk of amputationof any deep space infection and/ or vascular compromise occurs. Sheunderstands all these and she consents freely to perform this procedure.I have had the patient sign a waiver and I have witnessed this that doesnot guarantee that this will resolve her issues and I have also signed awaiver that suggests that smoking can impair her healing. All questionshave been answered. No guarantees had been expressed. A consent has beensigned by the patient.OPERATIVE FINDINGS:OPERATIVE PROCEDURE: The patient was transferred from the preoperativeholding area to the operating room and placed on the operating room tablein a supine position. A sign-in was performed according to [facility] protocol. She was placed on the operating room table and placedunder monitored anesthesia care and local field block to the right footconsisting of 10 mL of 50:50 mixture 1% lidocaine plain and 0.5% Marcaineplain. Right lower extremity had a tourniquet set for 250 mmHg. Theright lower extremity was then prepped and draped in the usual aseptictechnique. Antibiotic had been infused preoperatively. The right lowerextremity was then elevated and exsanguinated. Tourniquet was inflated.A linear incision was placed along the dorsal third interspace. Idissected down through the subcutaneous tissue, where all neurovascularstructures were identified. The deep transverse intermetatarsal ligamentwas transected exposing the deep inner space of the third interspace. Inoticed abundant adipose tissue along this region. I carefully inspectedthe interspace for any remnant of the interdigital nerve. I did findthis. I found the nerve to be very fatty infiltrated. I carefullydissected this out from distal to proximally. I transected thisproximally and sent for pathologic confirmation. Again, I noticedsignificant fatty infiltration along this nerve. After excising theneuroma, I irrigated with normal saline. I then injected the thirdinterspace with 0.5 mL of dexamethasone the tourniquet was then deflated.Hyperemic response was noted to the toes. Capillary fill time was brisk.Skin was warm. Adequate hemostasis was occurred and no excessivebleeding was encountered. The deep tissue was reapproximated along thesubcutaneous border with 3-0 Vicryl. Skin was then closed with 3-0 nylon. The wound edges were closed with no tension. With the wound edges welleverted, capillary fill time following the surgery was nice and less than5 seconds. Postoperative dressing consisting of 4 x 4, Debby, andlightly applied Adriano with Adaptic was applied to the right foot. Thepatient was transferred to the postoperative holding area, where sheremained stable. She was given Percocet for pain. She will use crutchesto remain nonweightbearing to her right foot. I will have the patientfollow up with me later this week to evaluate the wound. Again, thepatient informed biggest complication given her smoking, is wound healingissues, so we will watch this closely.I was present and performed the entire case.HEMOSTASIS: Right ankle tourniquet.INJECTABLES: 0.5 mL of dexamethasone.ESTIMATED BLOOD LOSS: 5 mL.DRAINS:SPECIMENS: Neuroma right 3rd interspaceMattheJANINA Salinas:[id number] #: [id number]: 2016 10:27:21 cc: SURGICAL PATHOLOGY Observed: 11/13/2016 Status: F Source: [place] 12:00 AM [facility]: [id number] Physician: RUSTY PERRY DPM FINAL DIAGNOSISSoft tissue, right foot, excision - Fragments of fibroadipose tissue.CHANELLE/ALEX/eli 11/15/16Brian Rajput M.D.(Electronic Signature) SPECIMEN SUBMITTEDA: RIGHT 3RD INTERSPACE NEUROMA RIGHT FOOT CLINICAL DATANeuroma, digital, right [G57.61]GROSS DESCRIPTIONA. Received in formalin are two segments of braswell- yellow fibrous soft tissueaggregating to 1.0 x 0.4 x 0.3 cm. Totally submitted in cassette A1.SULY/tran 11/14/2016Gross examination performed at [place], [place] [address]Patient ID #: [id number] of Report: 11/18/2016Date of Procedure: 11/13/2016Date of Receipt: 11/13/2016Submitted by: LJ GOODENocation: [id number] interpretation performed at [place] [address]. Performed By: #### PATHS ####[address] [id number] ALLERGIES ALLERGIES DATE TYPE / CODE NAME / CODE REACTION SEVERITY SOURCE Drug ciprofloxacin Vomiting Unknown [place] 7 Allergy/687407305( HCl/Y655278683(RXN [facility] Repository Drug codeine/[id number] Nausea Unknown [place] 7 Allergy/484842254( (RXNORM) [facility] Rep[facility] Drug ciprofloxacin/F006 Vomiting Unknown [place] 7 Allergy/489818494( 159054(RXNORM) [facility] SNOMED CT) Hospital Repository Miscellaneous GO LIGHTLY Nausea/Vom/Di Unknown [place] 7 Allergy/166729160( arrhea [facility] SNOMED CT) Hospital Repository Drug ciprofloxacin Vomiting [place] 7 Allergy/692792465( HCl/R699960309(RXN [facility] OR[facility] Repository Drug codeine/[id number] Nausea [place] 7 Allergy/083508894( (RXNORM) [facility] Drug ciprofloxacin/F006 Vomiting [place] 7 Allergy/035322991( 381890(RXNORM) [facility] SNOMED CT) Hospital Repository FT/224506297(SNOME GO LIGHTLY Nausea/Vom/Di [place] [address]) [facility] Repository DRUG CIPROFLOXACIN GI UPSET [place] 4 INGREDI/714765611( [facility] SNOMED CT) [place] Repository DRUG CODEINE HIVES [place] INGREDI/861833863( [facility] SNOMED CT) [place] Repository ENCOUNTERS ENCOUNTERS ADMIT/DISCHARGE ACCOUNT ADMITTING ENCOUNTER LOCATION SOURCE NUMBER CLASS 10/22/2017/10/23/[id number] Repository 10/22/2017/10/23/19 [id number] Ambulatory [address] Repository 10/15/2017/10/17/19 [id number] Ambulatory [address] Repository 10/13/2017/10/17/19 [id number] Ambulatory [address] Main [place] Repository 10/08/2017/10/10/19 [id number] Ambulatory [address] Repository 10/03/2017/10/07/19 [id number] Ambulatory [address] Repository 10/01/2017/10/07/19 [id number] Ambulatory [address] Repository 10/01/2017/10/01/19 [id number] Ambulatory [address] Repository 09/26/2017/02/13 [id number] Ambulatory [address] Main [place] Repository 09/24/2017/09/25/19 [id number] Ambulatory [address] Main [place] Repository 09/03/2017/09/04/19 [id number] Ambulatory [address] Main [place] Repository 08/28/2017 [id number] Ambulatory [facility] ing:BFHLAB Repository 08/28/2017/08/31/19 [id number] Ambulatory [address] Main [place] Repository 07/02/2017/07/02/20 [id number] Ambulatory [address] Other [place] Repository 07/02/2017/07/02/20 [id number] Ambulatory [address] Main [place] Repository 06/24/2017/06/24/20 [id number] ZACHARY BAUMAN Ambulatory [address] Other [place] Repository 05/28/2017/05/28/20 [id number] Ambulatory [address] Main [place] Repository 03/28/2017/03/28/20 [id number] Ambulatory [address] Main [place] Repository 12/26/2016 [id number] Ambulatory [facility] ing:PSN Repository 12/23/2016/12/24/19 [id number] Ambulatory [address] Main [place] Repository 12/04/2016/12/06/19 [id number] Ambulatory [address] Main [place] Repository 11/27/2016/11/29/19 [id number] Ambulatory [address] Main [place] Repository 11/27/2016/11/29/19 [id number] Ambulatory [address] Main [place] Repository 11/20/2016/11/21/19 [id number] Emergency [address] ing:ED Repository 11/20/2016/11/22/19 [id number] Ambulatory [address] Main [place] Repository 11/15/2016/11/20/19 [id number] Ambulatory [address] Main [place] Repository 11/13/2016/11/14/19 [id number] EMILY, Ambulatory [address] Repository PAYERS PAYERS ENCOUNTER GUARANTOR PAYER SUBSCRIBER SOURCE 08/28/2017 NORA Dailey Primary NORA Nicole [id number] Insurance:MEDICARE WILLIAMSDOB: [facility] [id number] Number: Repository [address]Mfk: [phone] [id number] [phone] (HP) Date:2017-08-28 08/28/2017 Secondary NORA Nicole Insurance:MEDICAIDPol WILLIAMSDOB: [facility] icy Number: [id number] [id number] Repository Date:2017-08-28 08/28/2017 Tertiary NOT GIVENUNK [place] Insurance:SELF PAY [facility] Number: Effective Repository Date:2017-08-28 12/26/2016 ONRA R Primary NORA R [place] [id number] Insurance:MEDICARE WILLIAMSDOB: [facility] AUDREY PART A [facility] [id number] Number: Repository [address]Oab: [phone] [id number] [phone] (HP) Date: 12/26/2016 Secondary NORA R [place] Insurance:MEDICAIDPol WILLIAMSDOB: [facility] icy Number: [id number] Hospital [id number] Repository Date: 11/20/2016 NORA R Primary NORA R [place] [id number] Insurance:MEDICARE WILLIAMSDOB: [facility] [id number] Number: Repository [address]Ina: [phone] [id number] [phone] (HP) Date:2016-10-16 11/20/2016 Secondary NORA R [place] Insurance:CARESOURCEP WILLIAMSDOB: [facility] Number: [id number] [id number] Repository Date:2015-07-18 [address]ATTN: [place] [address]WZ: 11/20/2016 Tertiary NORA R Corey Insurance:MEDICAIDPol WILLIAMSDOB: [facility] ic Number: [id number] [id number] Repository Date:
== END ==
PROVIDERS: Family Provider Family Medicine; PCP Family Medicine; Visit Provider Family Medicine
DX: L82.1 Other seborrheic keratosis (principal); Z85.820 Personal history of malignant melanoma of skin
CPT/HCPCS: 88305

== ENCOUNTER → 2018-04-01 13:02 | Outpatient (CLI) | payer MEDICARE, MEDICAID, SELFPAY | PROVIDERS: Family Provider Family Medicine; PCP Family Medicine; Visit Provider Family Medicine | DX: M54.17 Radiculopathy, lumbosacral region (principal) | CPT/HCPCS: 72148 ==

== ENCOUNTER 2019-09-10 12:09 | Emergency (ER) | payer MEDICARE, MEDICAID, SELFPAY ==
[2019-09-10 12:10] VITALS: BP 176/117; PULSE 93; RESP 22; TEMP 36.6; O2SAT 100; BMI 19.0
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
--- NOTE | 2019-09-10 13:17 | ED.DCSUM_ITS ---
History of Present Illness Chief Complaint: Depression Detail of Chief Complaint: Anxiety Informant: Patient Onset: Days Narrative: Patient presents with anxiety and panic attack. She has a history of anxiety. She has not been taking her anxiety medicine recently. She has had increased stress at home with her son and then her grandson living with her. She states her grandson is addicted to meth. She had to get him up this morning to conf ront him about his behavior. She ended up calling the police. Patient states that she felt like she could not breathe and her heart was racing. She is tearful. She denies any thoughts of hurting herself. - Past Medical History (1) Emphysema lung Status: Chronic (2) History of skin cancer Status: Chronic (3) CHF (congestive heart failure) Status: Chronic (4) COPD (chronic obstructive pulmonary disease) Status: Chronic (5) Chronic bronchitis Status: Chronic (6) Fibromyalgia Status: Chronic (7) HTN (hypertension) Status: Chronic (8) Hx of emotional problems Status: Chronic (9) Tobacco use Status: Chronic (10) Hx of hysterectomy Status: Resolved Past Medical History - Allergies and Home Meds Allergies/Adverse Reactions: Allergies codeine Allergy (Verified 09/10/19 13:04) Unknown ciprofloxacin [From Cipro] Adverse Reaction (Verified 09/10/19 13:04) Vomiting Primary Care Physician: Alton Mallory [Primary Care Provider] - Prior records reviewed: Yes Surgical History: noncontributory Lives: Alone Smoking Status: Current every day smoker Review of Systems General: Denies: Chills, Fever Eyes: Denies: Visual changes - bilaterally ENT: Denies: Bilateral ear pain Cardiovascular: Reports: Heart racing Respiratory: Reports: Dyspnea. Denies: Cough Gastrointestinal: Denies: Abdominal pain, Vomiting Musculoskeletal: Denies: Extremity Pain Psych: Reports: Anxiety. Denies: Suicidal thoughts Physical Exam Vital Signs/Narrative: Vital Signs Temp Pulse Resp BP Pulse Ox 09/10/19 12:10 97.8 F 93 22 H 176/117 H 100 Inital Vital Signs reviewed: Yes General: Well nourished, Well developed Head: Normocephalic ENT: Moist mucous membranes Neck: Supple Cardiovascular: Regular rate, Regular rhythm Respiratory: No distress, CTA bilaterally Abdomen: Soft, Nontender Extremities: Nontender Skin: Normal color Neurological: Alert, Oriented x3 Psychological: - - Anxious. Patient denies suicidal thoughts. Diagnostic/Tx/Re-eval - Medical Decision Making Patient was given 1 mg of p.o. Ativan. Repeat blood pressure is currently 139/103. Social work did meet with the patient. She is planning to follow-up with behavioral health next week. Patient states she does have anxiety medicine at home that she can use. Her granddaughter will come pick her up who was here earlier. Apparently she now tells me the grandson is still at her house. I encouraged her to wait until he is confirmed to be gone from her house before she goes home. ED Disposition - Plan for ED Patient: Disposition: Home or Assisted Living Diagnosis: Anxiety Instructions: Anxiety Reaction Referrals: Behavioral,Health [facility] [GROUP OF PHYSICIANS] - As soon as possible
[2019-09-10 13:26] VITALS: BP 157/110; PULSE 72; RESP 16
[2019-09-10] MEDS: LORazepam 1 MG Tablet PO (13:27)
[2019-09-10 15:14] VITALS: BP 155/104; RESP 16
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
== END 2019-09-10 15:18 | disposition home or self-care (01) ==
PROVIDERS: Emergency Provider Emergency Medicine; PCP Family Medicine
DX: F41.9 Anxiety disorder, unspecified (principal); Z91.14 Patient's other noncompliance with medication regimen; F32.9 Major depressive disorder, single episode, unspecified; J43.9 Emphysema, unspecified; I11.0 Hypertensive heart disease with heart failure; I50.9 Heart failure, unspecified; M79.7 Fibromyalgia; Z85.828 Personal history of other malignant neoplasm of skin; Z79.899 Other long term (current) drug therapy; F17.200 Nicotine dependence, unspecified, uncomplicated
CPT/HCPCS: 99284

== ENCOUNTER → 2019-09-23 16:27 | Outpatient (CLI) | payer MEDICARE, MEDICAID, SELFPAY ==
[2019-09-10 12:10] VITALS: BMI 19.0
[2019-09-23 18:18] LABS: Absolute Lymphocyte Count 2.37 X10^3/uL (0.83-4.51); Absolute Neutrophil Count 3.3 X10^3/uL (2.0-7.7); Basophil# 0.07 X10^3/uL; Eosinophil# 0.08 X10^3/uL; Eosinophils% 1.2 % (0-5); Hematocrit 50.3 % (37-47); Hemoglobin 16.7 g/dL (12.0-15.0); Lymphocyte # 2.37 X10^3/ul (4.0); Lymphocyte % 35.5 % (19-41); Mean Corp Hgb Conc 33.2 g/dL (32-36); Mean Corpuscular Hgb 29.2 pg (27.0-32.0); Mean Corpuscular Volume 88.1 fL (81-99); Mean Platelet Vol. 11.5 fl (6.2-12.0); Monocyte# 0.86 X10^3/uL; Monocyte% 12.9 % (0-10); NRBC Flagged by Analyzer 0 % (0-5); Neutrophil # 3.28 X10^3/uL (2.7-7.7); Neutrophil % 49.1 % (47-70); Platelet Count 346 K/mm3 (150-450); RBC Distribution Width CV 12.9 % (11.6-14.6); RBC Distribution Width SD 41.3 fl (35.1-43.9); Red Blood Count 5.71 M/mm3 (4.2-5.4); White Blood Count 6.7 K/mm3 (4.4-11.0)
[2019-09-23 19:03] LABS: AST(SGOT) 8 U/L (15-37); Alanine Aminotransfer ALT/SGPT 18 U/L (13-56); Alkaline Phosphatase 71 U/L (45-117); Anion Gap 6 (5-15); BUN 24 mg/dL (7-18); BUN/Creat Ratio 14.9 RATIO (10-20); Calcium,Total 9.9 mg/dL (8.5-10.1); Chloride 92 mmol/L (98-107); Creatinine, Serum 1.61 mg/dL (0.55-1.02); EST Glomerular Filtration Rate 34 mL/min (>60); Est Glom Filt Rate - Afr Amer 41 mL/min (>60); Glucose 115 mg/dL (74-106); Potassium 2.3 mmol/L (3.5-5.1); Sodium Level 135 mmol/L (136-145)
== END ==
PROVIDERS: PCP Family Medicine; Visit Provider Family Medicine
DX: Z51.81 Encounter for therapeutic drug level monitoring (principal)
CPT/HCPCS: 36415; 80053; 85025

== ENCOUNTER → 2019-10-21 15:08 | Outpatient (CLI) | payer MEDICARE, MEDICAID, SELFPAY ==
[2019-10-21 18:20] LABS: Anion Gap 5 (5-15); BUN 14 mg/dL (7-18); BUN/Creat Ratio 11.8 RATIO (10-20); Calcium,Total 9.6 mg/dL (8.5-10.1); Chloride 105 mmol/L (98-107); Creatinine, Serum 1.19 mg/dL (0.55-1.02); EST Glomerular Filtration Rate 48 mL/min (>60); Est Glom Filt Rate - Afr Amer 59 mL/min (>60); Glucose 70 mg/dL (74-106); Magnesium 2.1 mg/dL (1.6-2.6); Potassium 3.3 mmol/L (3.5-5.1); Sodium Level 139 mmol/L (136-145); T4 Free Direct 0.89 ng/dL (0.76-1.46); Thyroid Stim Hormone (TSH) 2.47 uIU/mL (0.358-3.74)
[2019-10-25 19:13] LABS: ANTINUCLEAR ANTIBODIES DIRECT Negative (Negative)
== END ==
PROVIDERS: PCP Family Medicine; Visit Provider Family Medicine
DX: I10 Essential (primary) hypertension (principal); E87.6 Hypokalemia; R68.2 Dry mouth, unspecified; G62.9 Polyneuropathy, unspecified
CPT/HCPCS: 36415; 80048; 83735; 84439; 84443; 86038; 86225; 86235

== ENCOUNTER → 2020-05-17 10:34 | Outpatient (CLI) | payer MEDICARE, SELFPAY ==
[2020-04-25 05:50] VITALS: BMI 21.0
--- NOTE | 2020-05-17 10:35 | ECHOD_ITS ---
Version 2 Reason For Study: PHTN Procedure This was a 2D Doppler, Color Flow transthoracic echocardiogram. Exam performed in department. Left Ventricle Normal LV size. Left ventricular systolic function is normal. The estimated ejection fraction is 65 %. Stage 1 diastolic dysfunction. No regional wall motion abnormalities noted. Right Ventricle Normal RV size. Normal systolic function. Atria Normal left atrium. Normal right atrium. Mitral Valve Chordal systolic anterior motion of the mitral valve. Normal mitral valve. Tricuspid Valve Normal tricuspid valve. Mild tricuspid valve insufficiency. Pulmonary artery systolic pressure is 24 mmHg. Aortic Valve Normal aortic valve. Trisinus/trileaflet aortic valve. Great Vessels Normal aortic root. The pulmonary artery is normal size. Normal inferior vena cava. Pericardium/Pleural No pericardial effusion. MMode/2D Measurements & Calculations LVIDd: 3.5 cm IVSd: 0.97 cm Ao root diam: 3.0 cm LVIDs: 2.1 cm LVPWd: 0.89 cm RVDd: 3.0 cm FS: 40.2 % LAV(MOD-bp): 26.9 ml EDV(MOD-sp4): 58.4 ml EDV(MOD-sp2): 61.2 ml LAV(MOD-bp) Indexed: 18.0 ml/m2 ESV(MOD-sp4): 17.9 ml EF(MOD-sp2): 59.2 % LAV(MOD-sp2): 30.0 ml EF(MOD-sp4): 69.4 % LAV(MOD-sp4): 22.8 ml SV(MOD-sp4): 40.6 ml SV(MOD-sp2): 36.2 ml LA A4 area: 11.2 cm2 LA dimension(2D): 2.2 cm RA A4 area: 9.7 cm2 Doppler Measurements & Calculations MV E max jerzy: 54.9 cm/sec Lat Peak E' Jerzy: 6.9 cm/sec Med Peak E' Jerzy: 6.9 cm/sec MV A max jerzy: 64.8 cm/sec E/E' lat: 8.0 E/E' med: 8.0 MV E/A: 0.85 Ao V2 max: 121.8 cm/sec LV V1 max: 93.1 cm/sec PA V2 max: 78.4 cm/sec Ao max P.9 mmHg LV V1 max P.5 mmHg TR max jerzy: 233.8 cm/sec TR max P.9 mmHg Interpretation Summary Normal LV size. Left ventricular systolic function is normal. The estimated ejection fraction is 65 %. Stage 1 diastolic dysfunction. The global longitudinal strain = -17.6 % (normal). Compared to prior study, there is no significant change. Ordering Physician: Myles Self Referring Physician: Alton Mallory Performed By: Jania Leung RDCS
== END ==
PROVIDERS: PCP Family Medicine; Referring Provider Internal Medicine Critical Care Medicine; Visit Provider Internal Medicine Critical Care Medicine
DX: R06.00 Dyspnea, unspecified (principal); J44.9 Chronic obstructive pulmonary disease, unspecified; G47.33 Obstructive sleep apnea (adult) (pediatric)
CPT/HCPCS: 93306

== ENCOUNTER → 2020-05-25 13:29 | Outpatient (CLI) | payer MEDICARE, SELFPAY ==
[2020-04-25 05:50] VITALS: BMI 21.0
[2020-05-25 13:45] VITALS: PULSE 64; PULSE 65; PULSE 80; PULSE 81; PULSE 83; PULSE 85; PULSE 88; O2SAT 93; O2SAT 94; O2SAT 95; O2SAT 96; O2SAT 97; O2SAT 98
--- NOTE | 2020-05-27 09:17 | PCM.PSN.6M ---
PSN 6 Minute Walk Test - 6 Minute Walk Test 6 Minute Walk Test: 6 Minute Walk Test PSN:6-Minute Walk Test Start: 05/25/20 14:06 Freq: Status: Active Protocol: RESP.6MINW Document 05/25/20 13:45 AE (Rec: 05/25/20 14:10 [facility] [id number]) 6 Minute Walk Test Date Performed 05/25/20 Time Performed 13:45 Height 5 ft 2 in Weight: 112 lb Weight in Pounds 112.[address]: Dr Self Assistive device used: None Pre-test Oxygen Delivery Method Room Air Pulse Ox (%) 97 Pulse Rate (60-100 beats/min) 65 Dyspnea Tyrell Scale (0-10) 0.5 Exertion Tyrell Scale (6-20) 6 1st minute Oxygen Delivery Method Room Air Pulse Ox (%) 94 Pulse Rate (60-100 beats/min) 81 2nd minute Oxygen Delivery Method Room Air Pulse Ox (%) 95 Pulse Rate (60-100 beats/min) 81 3rd minute Oxygen Delivery Method Room Air Pulse Ox (%) 95 Pulse Rate (60-100 beats/min) 85 4th minute Oxygen Delivery Method Room Air Pulse Ox (%) 95 Pulse Rate (60-100 beats/min) 83 5th minute Oxygen Delivery Method Room Air Pulse Ox (%) 93 Pulse Rate (60-100 beats/min) 80 6th minute Oxygen Delivery Method Room Air Pulse Ox (%) 96 Pulse Rate (60-100 beats/min) 88 Dyspnea Tyrell Scale (0-10) 3 Exertion Tyrell Scale (6-20) 10 Post-test Oxygen Delivery Method Room Air Pulse Ox (%) 98 Pulse Rate (60-100 beats/min) 64 Full Laps Walked 19 Partial Lap, Number of Tiles Walked 12 Total Distance Walked (ft) 1133 - Interpretation Interpretation: The patient ambulated 1133 feet over the course of 6 minutes beginning on room air without assistive devices or breaks. Pretesting oxygen saturation was noted to be 97% on room air. With ambulation, the alan oxygen saturation was 93%. There was no significant exertional oxygen desaturation. - Recommendations Recommendations: There is no indication for the use of supplemental oxygen at this time.
== END ==
PROVIDERS: PCP Family Medicine; Referring Provider Internal Medicine Critical Care Medicine; Visit Provider Internal Medicine Critical Care Medicine
DX: J44.9 Chronic obstructive pulmonary disease, unspecified (principal)
CPT/HCPCS: 94618

== ENCOUNTER → 2020-06-02 12:48 | Outpatient (CLI) | payer MEDICARE, MEDICAID, SELFPAY ==
[2020-04-25 05:50] VITALS: BMI 21.0
--- NOTE | 2020-06-02 14:49 | PFTCOMP_ITS ---
COMPLETE PULMONARY FUNCTION TEST INTERPRETATION Brief HPI: Patient is a 65 year old female, currently under the care of myself, who presents to [facility] for complete pulmonary function tests secondary to diagnosis of COPD. Respiratory therapist reports good effort and reproducible results. Interpretation: Forced expiration spirometry shows a mild large airways obstructive ventilatory defect with an FEV1 of 73% predicted. There is a significant bronchodilator response in FVC and FEV1 by strict ATS criteria. Spirograms are of good quality and plateau slowly, indicating slowly emptying areas of the lungs. The respiratory flow volume loop shows decreased expiratory flow rates at all lung volumes consistent with airway obstruction. Lung volumes by body plethysmography show an elevated total lung capacity at 5.16 L, 116% predicted. FRC and RV are elevated out of proportion. Lung volume measurements are consistent with hyperinflation and air-trapping. Diffusion capacity by carbon monoxide is normal at 85% predicted. The airway resistance is elevated. Compared to previous pulmonary function tests from 08/24/2015, there is been a significant reduction in FVC and FEV1 by 29% and 28% respectively before bronchodilators. However, this shows no significant change after bronchodilators. Impression: Partially reversible mild large airways obstructive ventilatory defect resulting in air trapping with hyperinflation and a pattern consistent with COPD/asthma overlap syndrome
== END ==
PROVIDERS: PCP Family Medicine; Referring Provider Internal Medicine Critical Care Medicine; Visit Provider Internal Medicine Critical Care Medicine
DX: J44.9 Chronic obstructive pulmonary disease, unspecified (principal)
CPT/HCPCS: 94060; 94726; 94729

== ENCOUNTER → 2020-07-27 13:16 | Outpatient (CLI) | payer MEDICARE, MEDICAID, SELFPAY ==
[2020-04-25 05:50] VITALS: BMI 21.0
--- NOTE | 2020-07-27 13:19 | CT_ITS ---
STUDY: LOW DOSE CT LUNG CANCER SCREENING REASON FOR EXAM: Female, 65 years old. Tobacco use, smokes 1 pack per week x 20 years, 116lbs. RADIATION DOSAGE (If Supplied By Facility): CTDIvol = ( 2.01 ) mGy, DLP = ( 73.24 ) mGycm TECHNIQUE: No contrast was administered. Low dose technique was utilized (average mAS-38 and kVp 120). 1.25 mm axial source images with a slice interval of 1.25-mm were reconstructed in lung windows. 2.5 mm axial source images with a slice interval of 2.5-mm were reconstructed in lung windows. 5.0 mm axial source images with a slice interval of 5.0-mm were reconstructed in soft tissue windows. Nodule measured using lung windows on PACS and/or independent workstation with automated measurement of minimum and maximum diameter. Nodule measurement reported as average diameter rounded to the nearest whole number. Growth is defined as an increase ins size of greater than 1.5 mm. COMPARISON: None. NODULES: Tiny calcified granuloma in the peripheral lateral aspect of the left upper lobe as seen on axial image #137. Emphysema: Diffuse emphysematous changes more prominent in the upper lobes with evidence of centrilobular emphysema. Endobronchial lesion: None Aorta: Mild degree of atherosclerotic plaque formation at the level of the aortic arch. Coronary arteries: Unremarkable Heart: Unremarkable Pulmonary artery: Unremarkable Mediastinal nodes: Other chest and abdominal findings: CT/Low Dose CT Lung Screening IMPRESSION: Lung-RADS category 2 - Continue annual screening with LDCT in 12 months. IMPORTANT NOTES FOR USE: ACR Lung-RADS Version 1.0 Assessment Categories Release Date: December 13, 2013 Category: Coded 0-4 bases on nodule(s) with highest degree of suspicion. Negative screen is defined as categories 1 and 2; a positive screen is defined as categories 3 and 4. Category 3 and 4A nodules that are unchanged on interval CT should be coded as category 2, and individuals returned to screening in 12 months. Category 4X: Category 3 or 4 nodules with additional imaging findings that increase the suspicion of lung cancer, such as spiculation, GGN that doubles in size in 1 year, enlarged lymph notes, etc. Category Modifiers: S (significant finding unrelated to lung cancer) and C (prior history of treated lung cancer) may be added to the 0-4 Lung-RADS Electronically Signed: Lon Holguin, at 14:18 EST , Service support ,
== END ==
PROVIDERS: PCP Family Medicine; Referring Provider Internal Medicine Critical Care Medicine; Visit Provider Internal Medicine Critical Care Medicine
DX: J44.9 Chronic obstructive pulmonary disease, unspecified (principal); F17.210 Nicotine dependence, cigarettes, uncomplicated
CPT/HCPCS: G0297

== ENCOUNTER → 2020-09-06 10:58 | Outpatient (CLI) | payer MEDICARE, SELFPAY ==
[2020-08-15 11:02] VITALS: BMI 20.5
== END ==
PROVIDERS: PCP Family Medicine; Visit Provider Nurse Practitioner Acute Care
DX: G47.33 Obstructive sleep apnea (adult) (pediatric) (principal)

== ENCOUNTER → 2020-09-07 11:00 | Outpatient (CLI) | payer MEDICARE, SELFPAY ==
[2020-08-15 11:02] VITALS: BMI 20.5
== END ==
PROVIDERS: PCP Family Medicine; Referring Provider Nurse Practitioner Acute Care; Visit Provider Nurse Practitioner Acute Care
DX: G47.33 Obstructive sleep apnea (adult) (pediatric) (principal)
CPT/HCPCS: 98960; G0463

== ENCOUNTER → 2020-10-10 14:00 | Outpatient (CLI) | payer MEDICARE, SELFPAY ==
[2020-08-15 11:02] VITALS: BMI 20.5
== END ==
PROVIDERS: PCP Family Medicine; Visit Provider Nurse Practitioner Acute Care
DX: G47.33 Obstructive sleep apnea (adult) (pediatric) (principal)

== ENCOUNTER 2020-12-24 16:55 | Emergency (ER) | payer MEDICARE, SELFPAY ==
[2020-11-13 10:42] VITALS: BMI 24.7
[2020-12-24] VITALS (8 sets, daily range): BP systolic 86–136; BP diastolic 68–104; PULSE 64–89; RESP 14–18; TEMP 35.5–35.9; O2SAT 88–100; BMI 24.8
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
--- NOTE | 2020-12-24 17:02 | EKG12_ITS ---
Test Reason : Blood Pressure : / mmHG Vent. Rate : 069 BPM Atrial Rate : 069 BPM P-R Int : 164 ms QRS Dur : 090 ms QT Int : 414 ms P-R-T Axes : 081 089 072 degrees QTc Int : 443 ms Normal sinus rhythm Possible Left atrial enlargement Borderline ECG Confirmed by FRANCIS CABALLERO, MELLISA ([id number]), editor at large CHRISTIANNE REHMAN ([id number]) on 12/25/2020 1:07:42 PM Referred By: EDI Confirmed By:MELLISA BLANCO MD
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
[2020-12-24 17:11] LABS: Absolute Lymphocyte Count 3.03 X10^3/uL (0.83-4.51); Basophil# 0.08 X10^3/uL; Basophil% 0.7 % (0-1); Eosinophil# 0.09 X10^3/uL; Eosinophils% 0.8 % (0-5); Hematocrit 45.9 % (37-47); Hemoglobin 14.4 g/dL (12.0-15.0); Lymphocyte # 3.03 X10^3/ul (0.83-4.51); Lymphocyte % 27.2 % (19-41); Mean Corp Hgb Conc 31.4 g/dL (32-36); Mean Corpuscular Hgb 28.1 pg (27.0-32.0); Mean Corpuscular Volume 89.6 fL (81-99); Mean Platelet Vol. 9.9 fl (6.2-12.0); Monocyte# 0.83 X10^3/uL; Monocyte% 7.5 % (0-10); NRBC Flagged by Analyzer 0 % (0-5); Neutrophil # 6.99 X10^3/uL (2.7-7.7); Neutrophil % 62.7 % (47-70); Platelet Count 318 K/mm3 (150-450); RBC Distribution Width CV 14.5 % (11.6-14.6); RBC Distribution Width SD 48.1 fl (35.1-43.9); Red Blood Count 5.12 M/mm3 (4.2-5.4); White Blood Count 11.1 K/mm3 (4.4-11.0)
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
[2020-12-24 17:20] LABS: Anion Gap 8 (5-15); BUN 20 mg/dL (7-18); BUN/Creat Ratio 13.6 RATIO (10-20); Calcium,Total 9.2 mg/dL (8.5-10.1); Chloride 108 mmol/L (98-107); Creatinine, Serum 1.47 mg/dL (0.55-1.02); EST Glomerular Filtration Rate 38 mL/min (>60); Est Glom Filt Rate - Afr Amer 46 mL/min (>60); Estimated Creatinine Clearance 32.95 ml/min; Glucose 155 mg/dL (74-106); Potassium 4.1 mmol/L (3.5-5.1); Sodium Level 137 mmol/L (136-145)
[2020-12-24 17:25] LABS: Alcohol, Blood (Medical)-Serum < 3.0 mg/dL
[2020-12-24] MEDS: fentaNYL 100 MCG/2 ML Ampul 50 MCG IV (17:25)
[2020-12-24] MEDS: 0.9% Normal Saline 1,000 ML 999 ML IV (17:30)
[2020-12-24] MEDS: Diphth,Pertuss(Acell),Tet Vac 0.5 ML Vial IM (17:35)
--- NOTE | 2020-12-24 17:41 | NURSING ---
PHYSICIANS CALLED AT 1720 THEY GAVE US A 30 MINUTE ETA. CALLED AGAIN AT 1740 TO GET AN UPDATED ETA AND THE UPDATED ETA WAS 8 MINUTES.
[2020-12-24 17:43] LABS: Bacteria 0 SEEN /hpf (None Seen); Mucous, Urine 0 SEEN /hpf (<or=2+); Squamous Epithelial Cells - UA 0 SEEN /hpf (5-10)
[2020-12-24 17:44] LABS: Color, Urine Yellow (Yellow); Glucose, Dipstick Normal (Normal); Ketone-Dipstick Negative (Negative); Leukocyte Esterase-Dipstick 25 /ul (Negative); Nitrite-Dipstick Negative (Negative); Occult Blood-Urine 50 /ul (Negative); Protein-Dipstick 30 mg/dl (Negative); Specific Gravity, Urine 1.015 (1.002-1.030); Urine Bilirubin Dipstick Negative (Negative); Urine Clarity Clear (Clear); Urine Urobilinogen Normal (Normal)
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
[2020-12-24] MEDS: Etomidate 20 MG/10 ML Vial IV (17:49)
[2020-12-24] MEDS: Rocuronium Bromide 50 MG/5 ML Vial 100 MG IV (17:50)
[2020-12-24 17:51] LABS: Hyaline Cast 5-10 SEEN /lpf (0-5); Red Blood Cells-Urine 0-5 SEEN /hpf (0-5); White Blood Cells 0-5 SEEN /hpf (0-5)
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
--- NOTE | 2020-12-24 18:00 | RAD_ITS ---
INDICATION: tube placement EXAMINATION/TECHNIQUE: X-RAY - XR Chest 1 View COMPARISON: None. FINDINGS: Endotracheal tube is 3.2 cm above the marleen. NG tube is coursing below diaphragm with tip incompletely visualized. Left basilar atelectasis. Emphysematous changes. The cardiomediastinal silhouette is unremarkable. No pleural effusion or pneumothorax. Left 10th rib fracture, best seen on recent Chest CT. RAD/Chest 1 View (Portable) IMPRESSION: Endotracheal tube is 3.2 cm above the marleen. Left 10th rib fracture, best seen on recent Chest CT. Electronically Signed: Valdez Holden MD at 18:53 EDT Tel , Service support ,
--- NOTE | 2020-12-24 18:00 | RAD_ITS ---
INDICATION: tube placement EXAMINATION/TECHNIQUE: X-RAY - XR Abdomen 1 View COMPARISON: None FINDINGS: BOWEL GAS PATTERN: Gaseous distention of the stomach and large bowel. NG-tube is in place with tip in the antrum of the stomach. FREE AIR: Not assessed on a single supine view. ORGANOMEGALY: Not seen. CALCIFICATIONS: No abnormal calcifications observed. LOWER CHEST: No acute pathology. BONES AND SOFT TISSUES: Partially visualized fracture dislocation of the left hip. RAD/Abdomen Single View (Portable) IMPRESSION: Gaseous distention of the stomach and large bowel. NG-tube is in place with tip in the antrum of the stomach. Partially visualized fracture dislocation of the left hip. Electronically Signed: Valdez Holden MD at 18:51 EDT Tel , Service support ,
[2020-12-24 18:09] LABS: Amphetamine Urine VISTA NEGATIVE (<1000 ng/mL); Barbiturate Urine VISTA NEGATIVE (< 200 ng/mL); Benzodiazepine Urine VISTA POSITIVE (< 200 ng/mL); Cocaine Urine VISTA POSITIVE (< 300 ng/mL); Ecstacy Urine VISTA NEGATIVE (< 500 ng/mL); Methadone Urine VISTA NEGATIVE (< 300 ng/mL); PCP Urine VISTA NEGATIVE (< 25 ng/mL); THC Urine VISTA POSITIVE (< 50 ng/mL); Vista UDS pH Range 5
[2020-12-24] MEDS: Propofol 10MG/Ml 1,000 MG/100 ML Bottle 3.9 MG CONT INF (18:15)
--- NOTE | 2020-12-24 18:15 | NURSING ---
PHYSICIANS ARRIVED AT 1809
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
--- NOTE | 2020-12-24 18:31 | ED.RN ---
physician talking in person to family member. updating pt on pt status and transfer
--- NOTE | 2020-12-24 18:38 | ED.RN ---
Spoke with mother to update on pt transfer.
== END 2020-12-24 18:33 | disposition short-term general hospital (02) ==
PROVIDERS: Emergency Provider Emergency Medicine; PCP Family Medicine
DX: S27.0XXA Traumatic pneumothorax, initial encounter (principal); S00.03XA Contusion of scalp, initial encounter; S22.32XA Fracture of one rib, left side, initial encounter for closed fracture; S72.002A Fracture of unspecified part of neck of left femur, initial encounter for closed fracture; S36.09XA Other injury of spleen, initial encounter; V89.2XXA Person injured in unspecified motor-vehicle accident, traffic, initial encounter; Y93.9 Activity, unspecified; Y92.9 Unspecified place or not applicable; I11.0 Hypertensive heart disease with heart failure; I50.9 Heart failure, unspecified; M79.7 Fibromyalgia; Z85.828 Personal history of other malignant neoplasm of skin; Z79.899 Other long term (current) drug therapy; Z87.891 Personal history of nicotine dependence
CPT/HCPCS: 31500; 51702; 70450; 70486; 71045; 71260; 72125; 74018; 74177; 80048; 80307; 81001; 82077; 85025; 90715; 93005; 94002; 99251; 99285; J7030; Q9967; A4216; G0463

== ENCOUNTER → 2022-06-05 | Outpatient (CLI) | payer MEDICARE, SELFPAY ==
--- NOTE | 2022-06-05 14:49 | CT_ITS ---
STUDY: LOW DOSE CT LUNG CANCER SCREENING REASON FOR EXAM: Female, 67 years old. One pack per day smoker x20 years. RADIATION DOSAGE (If Supplied By Facility): CTDIvol = ( 2.01 ) mGy, DLP = ( 66.20 ) mGycm TECHNIQUE: No contrast was administered. Low dose technique was utilized (average mAS-38 and kVp 120). 1.25 mm axial source images with a slice interval of 1.25-mm were reconstructed in lung windows. 2.5 mm axial source images with a slice interval of 2.5-mm were reconstructed in lung windows. 5.0 mm axial source images with a slice interval of 5.0-mm were reconstructed in soft tissue windows. COMPARISON: 12/24/2020 FINDINGS: Lung windows show underlying emphysema with bleb formation throughout both lung lundberg. No organized infiltrate, or suspicious noncalcified mass or nodule. No pleural or pericardial effusions. Soft tissue windows show normal-appearing thyroid gland. No suspicious adenopathy. No calcified coronary vessels are noted. Bony structures show degenerative change. Limited cuts through the upper abdomen do not show any suspicious abnormality CT/Low Dose CT Lung Screening IMPRESSION: Lung-RADS category 2 - Continue annual screening with LDCT in 12 months. IMPORTANT NOTES FOR USE: ACR Lung-RADS Version 1.1 Assessment Categories Release Date: 2018 Category: Coded 0-4 bases on nodule(s) with highest degree of suspicion. Negative screen is defined as categories 1 and 2; a positive screen is defined as categories 3 and 4. Category 3 and 4A nodules that are unchanged on interval CT should be coded as category 2, and individuals returned to screening in 12 months. Category 4X: Category 3 or 4 nodules with additional imaging findings that increase the suspicion of lung cancer, such as spiculation, GGN that doubles in size in 1 year, enlarged lymph notes, etc. Category Modifiers: S (significant finding unrelated to lung cancer) Electronically Signed: Stephan Glez MD at 15:28 EDT ,
== END | disposition home or self-care (01) ==
LOC: CT 14:48
PROVIDERS: PCP Family Medicine; Referring Provider Family Medicine; Visit Provider Family Medicine
DX: Z87.891 Personal history of nicotine dependence (principal)
CPT/HCPCS: 71271

== ENCOUNTER → 2022-08-26 | Outpatient (CLI) | payer MEDICARE, SELFPAY ==
--- NOTE | 2022-08-26 15:15 | BI_ITS ---
MAMMOGRAPHY - BILATERAL SCREENING REASON FOR EXAM: Female, 67 years old. Routine annual screening examination. PERTINENT HISTORY: Non-contributory. TECHNIQUE: Digital bilateral breast lisa (3D mammographic acquisition) in the CC and MLO projections. 2-D mediolateral oblique (MLO) and craniocaudad (CC) views of both breasts were obtained. CAD: Full Field Digital Mammography with Computer Added Detection was performed. COMPARISON: None. Baseline examination. FINDINGS: Breast Composition: The breasts are heterogeneously dense, which may obscure small masses. There are no dominant masses or suspicious calcifications. No other significant abnormalities are identified. BI/SCRN MAMM (CAD)W/LISA BILAT IMPRESSION: Negative screening mammogram. Yearly followup mammogram recommended. (A) ASSESSMENT CATEGORY: BIRADS Category 1: Negative. A letter regarding these results will be sent to the patient by the facility within 30 days. Approximately 10% of breast cancers are not detected by mammography. A normal mammogram should not delay biopsy of a clinically suspicious abnormality. [id number] Electronically Signed: Lon Holguin MD at 8:32 EST ,
== END | disposition home or self-care (01) ==
LOC: OPBI 15:13
PROVIDERS: PCP Family Medicine; Referring Provider Family Medicine; Visit Provider Family Medicine
DX: Z12.31 Encounter for screening mammogram for malignant neoplasm of breast (principal)
CPT/HCPCS: 77063; 77067

== ENCOUNTER → 2023-10-15 | Outpatient (CLI) | payer MEDICARE, MEDICAID, SELFPAY ==
--- NOTE | 2023-10-15 12:49 | CT_ITS ---
STUDY: LOW DOSE CT LUNG CANCER SCREENING REASON FOR EXAM: Female, 68 years old. Screening. Former smoker. The patient smoked 1 pack per day for 47 years. COPD and emphysema. RADIATION DOSAGE (If Supplied By Facility): CTDIvol = ( 1.59 ) mGy, DLP = ( 51.42 ) mGycm TECHNIQUE: No contrast was administered. Low dose technique was utilized (average mAS-38 and kVp 120). 1.25 mm axial source images with a slice interval of 1.25-mm were reconstructed in lung windows. 2.5 mm axial source images with a slice interval of 2.5-mm were reconstructed in lung windows. 5.0 mm axial source images with a slice interval of 5.0-mm were reconstructed in soft tissue windows. COMPARISON: Comparison is made with prior study June 05, 2022. NODULES: No suspicious nodules are seen. Emphysema: Hyperinflation. Emphysematous changes more prominent in the upper lobes. Stable apical scarring bilaterally. Stable linear scarring in the posterior medial segment of the right lower lobe as well as the anterior aspect of the lingular segment of the left upper lobe. Endobronchial lesion: None Aorta: CORONARY ARTERIES: Coronary artery calcification is not seen. Heart: Small pericardial effusion. Pulmonary artery: Unremarkable Mediastinal nodes: Unremarkable Other chest and abdominal findings: CT/Low Dose CT Lung Screening IMPRESSION: Lung-RADS category 2 - Continue annual screening with LDCT in 12 months. IMPORTANT NOTES FOR USE: ACR Lung-RADS Version 1.1 Assessment Categories Release Date: 2018 Category: Coded 0-4 bases on nodule(s) with highest degree of suspicion. Negative screen is defined as categories 1 and 2; a positive screen is defined as categories 3 and 4. Category 3 and 4A nodules that are unchanged on interval CT should be coded as category 2, and individuals returned to screening in 12 months. Category 4X: Category 3 or 4 nodules with additional imaging findings that increase the suspicion of lung cancer, such as spiculation, GGN that doubles in size in 1 year, enlarged lymph notes, etc. Category Modifiers: S (significant finding unrelated to lung cancer) Electronically Signed: Lon Holguin MD at 14:39 EST ,
== END | disposition home or self-care (01) ==
LOC: PSN 12:46
PROVIDERS: PCP Family Medicine; Referring Provider Internal Medicine Critical Care Medicine; Visit Provider Internal Medicine Critical Care Medicine
DX: F17.210 Nicotine dependence, cigarettes, uncomplicated (principal); J44.9 Chronic obstructive pulmonary disease, unspecified; G47.33 Obstructive sleep apnea (adult) (pediatric)
CPT/HCPCS: 71271; 94060; 94726; 94729

== ENCOUNTER → 2023-10-21 | Outpatient (CLI) | payer MEDICARE, SELFPAY ==
--- NOTE | 2023-10-21 13:12 | BI_ITS ---
MAMMOGRAPHY - BILATERAL SCREENING 3-D TOMOSYNTHESIS REASON FOR EXAM: Female, 68 years old. SCREENING PERTINENT HISTORY: No significant family history. TECHNIQUE: 2-D mammograms and 3-D Tomosynthesis of the breast (s) were performed. CAD was performed. COMPARISON: 08/26/2022 FINDINGS: The breast composition is heterogeneously dense that can obscure small breast masses. Scattered benign calcifications are seen. No dense spiculated masses or suspicious microcalcifications are identified. No architectural distortion is identified. There is no skin thickening or retraction. There has been no significant change since the prior study. BI/SCRN MAMM (CAD)W/LISA BILAT IMPRESSION: No mammographic signs of malignancy. Routine yearly mammograms recommended. ASSESSMENT CATEGORY: BIRADS Category 1: Negative. A letter regarding these results will be sent to the patient by the facility within 30 days. FOLLOW UP RECOMMENDATION: Yearly follow up mammogram recommended. (A) Approximately 10% of breast cancers are not detected by mammography. A normal mammogram should not delay biopsy of a clinically suspicious abnormality. Electronically Signed: Gerard Taylro MD at 17:32 EST ,
[2023-10-21 13:51] VITALS: PULSE 80; PULSE 87; PULSE 89; PULSE 92; PULSE 94; PULSE 95; PULSE 98; O2SAT 90; O2SAT 91; O2SAT 93; O2SAT 94
--- NOTE | 2023-10-23 08:55 | WT_ITS ---
PSN 6 Minute Walk Test 6 Minute Walk Test 6 Minute Walk Test: 6 Minute Walk Test PSN:6-Minute Walk Test Start: 10/21/23 13:51 Freq: Status: Active Protocol: [id number] Document 10/21/23 13:51 [facility] (Rec: 10/21/23 13:54 [facility] Desktop) 6 Minute Walk Test Date Performed 10/21/23 Time Performed 13:30 Height 5 ft 2 in Weight: 140 lb Weight in Pounds 140.[address]: Minerva Mallory Assistive device used: None Pre-test Oxygen Delivery Method Room Air Pulse Ox 94 Pulse Rate (60-100) 80 Dyspnea Tyrell Scale (0-10) 0 Exertion Tyrell Scale (6-20) 6 1st minute Oxygen Delivery Method Room Air Pulse Ox 91 Pulse Rate (60-100) 95 2nd minute Oxygen Delivery Method Room Air Pulse Ox 93 Pulse Rate (60-100) 98 3rd minute Oxygen Delivery Method Room Air Pulse Ox 93 Pulse Rate (60-100) 87 4th minute Oxygen Delivery Method Room Air Pulse Ox 93 Pulse Rate (60-100) 92 5th minute Oxygen Delivery Method Room Air Pulse Ox 93 Pulse Rate (60-100) 92 6th minute Oxygen Delivery Method Room Air Pulse Ox 90 Pulse Rate (60-100) 94 Dyspnea Tyrell Scale (0-10) 1 Exertion Tyrell Scale (6-20) 13 Post-test Oxygen Delivery Method Room Air Pulse Ox 91 Pulse Rate (60-100) 89 Full Laps Walked 9 Partial Lap, Number of Tiles Walked 36 Total Distance Walked (ft) 567 Interpretation Interpretation: The patient ambulated 567 feet over the course of 6 minutes beginning on room air without assistive devices. Pretesting oxygen saturation was noted to be 94% on room air. With ambulation, the alan oxygen saturation was 90%. Although t here was evidence of impaired walk distance, there was no significant exertional oxygen desaturation. Recommendations Recommendations: There is no indication for the use of supplemental oxygen at this time.
== END | disposition home or self-care (01) ==
LOC: OPBI 13:10
PROVIDERS: PCP Family Medicine; Referring Provider Family Medicine; Visit Provider Family Medicine
DX: Z12.31 Encounter for screening mammogram for malignant neoplasm of breast (principal)
CPT/HCPCS: 77063; 77067; 94618

== ENCOUNTER → 2023-11-10 | Outpatient (CLI) | payer MEDICARE, MEDICAID, SELFPAY | END | disposition home or self-care (01) | LOC: SL 20:08 | PROVIDERS: PCP Family Medicine; Referring Provider Nurse Practitioner Acute Care; Visit Provider Nurse Practitioner Acute Care | DX: G47.33 Obstructive sleep apnea (adult) (pediatric) (principal) | CPT/HCPCS: 95810 ==

== ENCOUNTER → 2025-03-02 | Outpatient (CLI) | payer MEDICARE, SELFPAY ==
--- NOTE | 2025-03-02 14:51 | BI_ITS ---
EXAM: SCRN MAMM (CAD)W/LISA BILAT DATE: 03/02/2025 CLINICAL HISTORY: F, Age 70 y/o , SCREENING TECHNIQUE: SCRN MAMM (CAD)W/LISA BILAT COMPARISON: Prior exam(s) dated 10/21/2023, 04/27/2023. FINDINGS: TISSUE DENSITY: There are scattered areas of fibroglandular density. Bilateral Breast Mammographic Findings: No significant masses, calcifications or other abnormalities are identified. BI/SCRN MAMM (CAD)W/LISA BILAT IMPRESSION: There is no mammographic evidence of malignancy. OVERALL FINAL ASSESSMENT BI-RADS 1: NEGATIVE. RECOMMENDATION: Routine annual follow-up in 1 Year A letter with findings and recommendations will be mailed to the patient. Reading Location: [id number]
== END | disposition home or self-care (01) ==
LOC: OPBI 14:49
PROVIDERS: PCP Family Medicine; Referring Provider Family Medicine; Visit Provider Family Medicine
DX: Z12.31 Encounter for screening mammogram for malignant neoplasm of breast (principal)
CPT/HCPCS: 77063; 77067

== ENCOUNTER 2025-05-16 13:56 | Inpatient (IN) | payer MEDICARE, SELFPAY ==
[2025-05-16] VITALS (11 sets, daily range): BP systolic 120–163; BP diastolic 70–105; PULSE 67–97; RESP 16–18; TEMP 36.9–37.2; O2SAT 94–100; BMI 25.6; BMI 25.9
--- OUTSIDE RECORDS SUMMARY | 2025-05-16 13:43 | XMS RPT_ITS ---
Author Name Auto Generated Organization OH[facility] Care Team Providers Care Ase Master Mechanic Name Role Phone MAME BARCENAS Attending Unavailable CLAUDINE RUIZ Primary Care Unavailable PROBLEMS DATE TYPE CONDITION / CODE ATTENDING STATUS ANTONELLA RCE 05/16/2025 Active Abdominal pain, left lateral / R10.9(ICD-10) MAME BARCENAS Active [facility] 05/16/2025 Active Blood in stool / K92.1(ICD-10) MAME BARCENAS Active [facility] PROCEDURES No Procedure Records Found RESULTS PROGRESS Observed: 05/16/2025 1:46 PM Status: COMPLETED Source: [facility] HNO ID: [id number] Author: MAME BARCENAS MD Service: ? Author Type: Physician Type: Progress Notes Filed: 05/16/2025 13:50 Note Text: Express Care Triage Note: Patient presents to the [facility] care with complaint of left abdominal pain, blood in stool, and cough over the last 4 days. She is uncomfortable with transitions. She chooses ER evaluation and will go to [facility] ED. CNOV Observed: 05/16/2025 1:45 PM Status: COMPLETED Source: [facility] Office Visit ([facility]) DEZ GRANDE ([id number]) 1955 F T Date Time Provider Department 05/16/25 1:45 PM MAME BARCENAS [facility] During your visit today, we recorded the following information about you: Mame Barcenas MD 05/16/2025 1:50 PM Signed Express Care Triage Note: Patient presents to the [facility] care with complaint of left abdominal pain, blood in stool, and cough over the last 4 days. She is uncomfortable with transitions. She chooses ER evaluation and will go to [facility] ED. Allergies As of Date: 05/16/2025 Noted Allergy Reaction CIPROFLOXACIN 11/04/2013 8 - GI Upset 11 - Vomiting Comments: Dizziness Miralax (POLYETHYLENE GLYCOL 3350)10/18/2016 8 - GI Upset CODEINE 02/12/2011 4 - Hives 9 - Itching Comments: Generalized. Date Reviewed: 08/28/2021 Reviewed by: Ranjan Herrera MD - Fully Assessed Primary Visit Diagnosis:Abdominal pain, left lateral [R10.9] Other Visit Diagnosis:Blood in stool [K92.1] Prescriptions as of 05/16/2025 - meloxicam (MOBIC) 15 mg tablet Take 1 tablet by mouth once daily. - meloxicam (MOBIC) 15 mg tablet Take 1 tablet by mouth once daily. - oxyCODONE ir (OXYIR) 5 mg capsule Take 5 mg by mouth every 4 hours as needed for pain. - ondansetron (ZOFRAN) 4 mg tablet Take by mouth every 8 hours as needed for nausea/vomiting. - aspirin 81 mg chewable tablet Take 1 tablet by mouth once daily. - cholecalciferol (VITAMIN D3) 1,000 unit tab tablet Take 3 tablets by mouth once daily. - melatonin 3 mg tablet Take 3 tablets by mouth daily at bedtime for 7 days. - ascorbic acid, vitamin C, (VITAMIN C) 500 mg tablet Take 1 tablet by mouth twice daily with meals for 23 doses. - gabapentin (NEURONTIN) 100 mg capsule Take 1 capsule by mouth once daily for 5 days. - clonazePAM (KLONOPIN) 1 mg tablet Take 1 mg by mouth three times daily as needed. - hydrOXYzine HCl (ATARAX) 25 mg tablet Take 25 mg by mouth once daily as needed. - cyclobenzaprine (FLEXERIL) 10 mg tablet Take 1 tablet by mouth twice daily as needed. - QUEtiapine (SEROQUEL) 100 mg tablet Take 1 tablet by mouth once daily. Dr [place] - DULoxetine (CYMBALTA) 60 mg capsule Take 1 capsule by mouth once daily. - CPAP CPAP 11 cmH2O, suitable mask, tubing, humidifier, filters. Lifetime supplies. 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]12/22/2012 Postmenopausal atrophic vaginitis [N95.2] 05/05/2013 COPD (chronic obstructive pulmonary disease) (H*03/29/2014 Tobacco use disorder, continuous [F17.209] 07/19/2014 Patent foramen ovale [Q21.12] 07/19/2014 Encounter for screening colonoscopy [Z12.11] 10/11/2014 HTN (hypertension) [I10] 11/17/2014 Psychophysiological insomnia [F51.04] 04/19/2015 Depression [F32.A] 04/19/2015 JORGE (obstructive sleep apnea) RDI 67 CMS AHI *04/19/2015 Chronic low back pain with sciatica [M54.40, G8*08/31/2015 DDD (degenerative disc disease), lumbar [M51.36*08/31/2015 Cervical spondylosis without myelopathy [M47.81*10/11/2015 Cervicalgia [M54.2] 10/11/2015 Abnormal echocardiogram [R93.1] 10/18/2016 PTSD (post-traumatic stress disorder) [F43.10] 12/23/2016 Connective tissue stenosis of neural canal of l*05/28/2017 Radiculopathy, lumbar region [M54.16] 05/28/2017 Neural foraminal stenosis of lumbar spine [M48.*06/15/2018 Intervertebral disc stenosis of neural canal of*06/15/2018 Myelopathy (HCC) [G95.9] 09/03/2018 Hypopotassemia [E87.6] 12/04/2018 Intervertebral disc disorder with myelopathy, c*12/08/2018 Spinal stenosis of cervical region [M48.02] 12/08/2018 Acute respiratory failure (HCC) [J96.00] 12/24/2020 01/20/2021 SDH (subdural hematoma) (HCC) [S06.5XAA] 12/24/2020 Splenic laceration, initial encounter [S36.039A]12/24/2020 01/20/2021 Closed fracture dislocation of left hip joint (*12/24/2020 01/20/2021 Closed fracture of left acetabulum (HCC) [S32.4*12/24/2020 01/20/2021 Substance abuse (HCC) [F19.10] 12/24/2020 Traumatic pneumothorax [S27.0XXA] 12/24/2020 01/20/2021 Spleen injury [S36.00XA] 12/24/2020 Closed fracture of one rib of left side [S22.32*12/24/2020 Lactic acidosis [E87.20] 12/25/2020 01/20/2021 Closed fracture of right tibial plateau [S82.14*12/25/2020 Hypomagnesemia [E83.42] 12/26/2020 01/20/2021 Vitamin D deficiency [E55.9] 2021 Malnutrition of moderate degree (HCC) [E44.0] 01/19/2021 Status post total replacement of left hip [Z96.*02/19/2021 Encounter Status:Closed by MAME BARCENAS on 05/16/25 ALLERGIES DATE TYPE / CODE NAME / CODE REACTION SEVERITY SOURCE 10/18/2016 DRUG INGREDI/037138 003(SNOMED CT) POLYETHYLENE GLYCOL 3350 GI UPSET [facility] 11/04/2013 DRUG INGREDI/986927 003(SNOMED CT) CIPROFLOXACIN GI UPSET [facility] 02/12/2011 DRUG INGREDI/257423 003(SNOMED CT) CODEINE HIVES [facility] ENCOUNTERS ADMIT/DISCHARGE ACCOUNT NUMBER ADMITTING ENCOUNTER CLASS LOC ATION SOURCE 05/16/2025/ [id number] [facility] PAYERS ENCOUNTER GUARANTOR PAYER SUBSCRIBER SOURCE 05/16/2025 Primary Insurance:[employer] ADVANTAGE [facility] Number: [id number] Date:[id number] Name:Marbin LOPEZ: [id number] [place] [address] [facility]
--- OUTSIDE RECORDS SUMMARY | 2025-05-16 13:43 | XMS RPT_ITS ---
Author Name Auto Generated Organization OH[facility] Care Team Providers Care Broadcasting Equipment Mechanic Name Role Phone MAME BARCENAS Attending Unavailable CLAUDINE RUIZ Primary Care Unavailable PROBLEMS DATE TYPE CONDITION / CODE ATTENDING STATUS ANTONELLA E 05/16/2025 Active Abdominal pain, left lateral / R10.9(ICD-10) MAME BARCENAS Active [facility] 05/16/2025 Active Blood in stool / K92.1(ICD-10) MAME BARCENAS Active [facility] PROCEDURES No Procedure Records Found RESULTS PROGRESS Observed: 05/16/2025 1:46 PM Status: COMPLETED Source: [facility] HNO ID: [id number] Author: MAME BARCENAS MD Service: ? Author Type: Physician Type: Progress Notes Filed: 05/16/2025 13:50 Note Text: Express Care Triage Note: Patient presents to the [facility] care with complaint of left abdominal pain, blood in stool, and cough over the last 4 days. She is uncomfortable with transitions. She chooses ER evaluation and will go to [facility] ED. CNOV Observed: 05/16/2025 1:45 PM Status: COMPLETED Source: [facility] Office Visit ([facility]) DEZ GRANDE ([id number]) 1955 F T Date Time Provider Department 05/16/25 1:45 PM MAME BARCENAS [facility] During your visit today, we recorded the following information about you: Mame Barcenas MD 05/16/2025 1:50 PM Signed Express Care Triage Note: Patient presents to the [facility] care with complaint of left abdominal pain, blood in stool, and cough over the last 4 days. She is uncomfortable with transitions. She chooses ER evaluation and will go to [facility] ED. Allergies As of Date: 05/16/2025 [...] Noted Resolved Routine general medical examination at [facility]*05/13/2011 12/22/2012 Class: Chronic Routine gynecological examination [Z01.419] [...] / CODE REACTION SEVERITY SOURCE 10/18/2016 DRUG INGREDI/984696 003(SNOMED CT) POLYETHYLENE GLYCOL 3350 GI UPSET [facility] 11/04/2013 DRUG INGREDI/153402 003(SNOMED CT) CIPROFLOXACIN GI UPSET [facility] 02/12/2011 DRUG INGREDI/025443 003(SNOMED CT) CODEINE HIVES [facility] ENCOUNTERS ADMIT/DISCHARGE ACCOUNT NUMBER ADMITTING ENCOUNTER CLASS LOC ATION SOURCE 05/16/2025/ [id number] [facility] PAYERS ENCOUNTER GUARANTOR PAYER SUBSCRIBER SOURCE 05/16/2025 Primary Insurance:[employer] ADVANTAGE [facility] Number: [id number] Date:[id number] Name:Marbin LOPEZ: [id number] [place] [address] [facility]
[2025-05-16 14:43] LABS: Hematocrit 44.0 % (37-47); Hemoglobin 14.6 g/dL (12.0-15.0); Immature Granulocytes Count 0.070 X10^3/uL (0.0-0.0); Mean Corp Hgb Conc 33.2 g/dL (32-36); Mean Corpuscular Volume 88.2 fL (81-99); Mean Platelet Vol. 10.2 fl (6.2-12.0); NRBC Flagged by Analyzer 0 % (0-5); Platelet Count 292 K/mm3 (150-450); RBC Distribution Width CV 13.8 % (11.6-14.6); RBC Distribution Width SD 44.4 fl (35.1-43.9); Red Blood Count 4.99 M/mm3 (4.2-5.4); White Blood Count 12.0 K/mm3 (4.4-11.0)
--- NOTE | 2025-05-16 15:04 | ED.VIS.GI ---
HPI HPI - GI History of Present Illness Chief Complaint: Abd Pain Narrative Narrative: Patient is a 70-year-old female presenting to the emergency department for abdominal pain that started on . Patient has a past medical history of COPD, hypertension, CHF, fibromyalgia. Patient states that on she started to have left sided abdominal pain. States that she cannot remember the last time that she had a normal bowel movement. Reports that on Friday she had a small hard bowel movement that had dark blood in it. She endorses some nausea with no vomiting. States the abdominal pain continued yesterday and today. Denies any fever, chills, chest pain, shortness of breath, dysuria or hematuria. Denies ever having abdominal pain like this in the past. She does not take anything for her symptoms. No BM yesterday or today. She is not on any OAC. Denies any alcohol or NSAID use. PFSH PFSH Medical History Hx of emotional problems Hormone deficiency Back problem HTN (hypertension) History of skin cancer CHF (congestive heart failure) Fibromyalgia Tobacco use Home Medications ?Medication ?Instructions ?Recorded ?Last Taken ?Type clonazepam 1 mg tablet 1 mg PO QHS anxiety 10/18/16 Unknown History multivitamin,wy-uenc-bzooecpp 27 1 tab PO DAILY supplement 10/18/16 Unknown History mg-0.4 mg tablet buspirone 15 mg tablet 15 mg PO BID mood 10/09/23 Unknown History cyclobenzaprine 10 mg tablet 10 mg PO BID muscle spasm 10/09/23 Unknown History olanzapine 15 mg tablet 15 mg PO QHS mood 10/09/23 Unknown History duloxetine 30 mg capsule,delayed 30 mg PO QDAY mood 10/29/23 Unknown History release duloxetine 60 mg capsule,delayed 60 mg PO QDAY mood 10/29/23 Unknown History release losartan 50 mg tablet 50 mg PO QDAY bp 10/29/23 Unknown History potassium chloride 20 mEq 20 meq PO TID supplement 10/29/23 Unknown History tablet,extended release(part/cryst) albuterol sulfate 90 mcg/actuation 2 puff inhalation Q6H PRN 05/04/24 Unknown Rx aerosol inhaler shortness of breath or wheezing #18 grams meclizine 25 mg tablet 50 mg PO BID vertigo 07/02/24 Unknown History fluticasone fur. 200 mcg-umeclid 1 inh inhalation DAILY sob #60 ea 11/22/24 Unknown Rx 62.5 mcg-vilant 25 mcg inhalat.powder (Trelegy Ellipta) Allergy/AdvReac Type Severity Reaction Status Date / Time codeine Allergy Unknown Verified 05/16/25 13:56 ciprofloxacin (From Cipro) AdvReac Vomiting Verified 05/16/25 13:56 Family History Sister Diabetes Brother Diabetes Heart disease Father Heart disease Surgical History History of left hip replacement Hx of hysterectomy History of carpal tunnel release of both wrists Social History household members: none Smoking Status: Current every day smoker tobacco type: cigarettes and e-cigarettes Tobacco: How many years used: 40 Electronic Cigarette Use: with nicotine how long ago did patient quit smokin quit smoking cigarettes, 1ppd vaping currently second hand exposure: Yes ROS ROS ED ROS Narrative see HPI EXAM Physical Exam Narrative Exam Narrative: Vital signs: Reviewed General: Alert and orientedx3. No acute distress HEENT: Head is normocephalic and atraumatic, sinuses nontender, pupils equal round and reactive. Nares are patent. Oropharynx and throat exams normal. Neck: Supple without lymphadenopathy nontender Cardiovascular: Regular rate and rhythm, no murmurs. No rubs or gallops. Normal S1 and S2 Respiratory: Clear to auscultation bilaterally. No wheezes, rales, rhonchi Abdominal: Soft and diffusely tender to palpation throughout. Normal bowel sounds. No guarding or rebound. : done with boulevard glassware replacer at bedside. No hemorrhoids or fissures noted. No gross blood on internal rectal exam. Extremities: No tenderness. No bruising. Normal range of motion. Normal sensation. Skin: No rash or redness. Neurological: Cranial nerves II through XII are grossly intact. Normal strength and sensation. Normal cerebellar function The rest of the physical exam is unremarkable Const Vital Signs: 05/16/25 13:56 05/16/25 14:45 05/16/25 15:34 Temperature 98.4 F Temperature Source Oral Pulse Rate 97 80 80 Respiratory Rate 18 18 17 Blood Pressure 160/98 H 139/105 H 141/99 H Blood Pressure Mean 118 116 113 Pulse Ox 98 100 100 Oxygen Delivery Method Room Air Room Air Room Air 05/16/25 16:40 05/16/25 17:00 05/16/25 18:00 Temperature Temperature Source Pulse Rate 81 67 83 Respiratory Rate 16 16 17 Blood Pressure 120/89 H 140/70 H 163/94 H Blood Pressure Mean 99 93 117 Pulse Ox 97 97 99 Oxygen Delivery Method 05/16/25 19:00 05/16/25 20:00 Temperature Temperature Source Pulse Rate 87 87 Respiratory Rate 16 17 Blood Pressure 143/91 H Blood Pressure Mean 108 Pulse Ox 100 97 Oxygen Delivery Method Room Air MDM MDM MDM Narrative Medical decision making narrative: Patient is a 70-year-old female presenting to the emergency department for abdominal pain, constipation and 1 episode of blood in her stool. Patient was seen and examined. Vitals are stable. Patient resting in bed comfortably no acute distress. Differential includes but is not limited to: Diverticulitis, hemorrhoids, upper GI bleed including peptic ulcer disease Patient offered analgesia and antiemetic however declines both at initial time of evaluation. Labs were ordered prior to me seeing the patient. CBC with mild leukocytosis of 12 and stable hemoglobin of 14.6. CMP with no significant normalities. Lipase within normal limits. Urinalysis with leukocyte esterase and occult blood, no other signs of infection. CT of the abdomen was ordered and shows interval development of moderate right intrahepatic ductal dilatation of uncertain etiology. No definitive obstructing mass or stone in the right hepatic duct. Left biliary intrahepatic ducts normal. Cholelithiasis with no definitive choledocholithiasis. Given these findings, right upper quadrant ultrasound was ordered. No additional findings on this. Fecal occult positive. Given these findings, discussed with on-call wash plant operator, Dr. Tadeo, who states with the abdominal pain and no other findings and MRCP is warranted. Discussed with patient and she is agreeable with admission. Patient admitted to Dr. Bashir for further management. Clinical impression: GI bleed abdominal pain Intrahepatic ductal dilatation History & Record Review Discussion w/independent historian: Patient Additional record(s) reviewed:: Prior labs Lab Data Attestation: I reviewed the patient's lab results. Labs: Laboratory Results - last 24 hr 05/16/25 05/16/25 14:30 17:28 WBC 12.0 H RBC 4.99 Hgb 14.6 Hct 44.0 MCV 88.2 MCH 29.3 MCHC 33.2 RDW Std Deviation 44.4 H RDW Coeff of Nikolas 13.8 Plt Count 292 MPV 10.2 Immature Gran % (Auto) 0.600 Neut % (Auto) 65.6 Lymph % (Auto) 21.9 [place] % (Auto) 10.2 H Eos % (Auto) 0.9 Baso % (Auto) 0.8 Absolute Neuts (auto) 7.9 H Absolute Lymphs (auto) 2.63 Nucleated RBC % 0 Sodium 134 Potassium 3.5 Chloride 99 Carbon Dioxide 21.6 Anion Gap 13 BUN 14 Creatinine 1.17 Estim Creat Clear Calc 39.17 L Est GFR (MDRD) Non-Af 50 L BUN/Creatinine Ratio 11.7 Glucose 146 H Calcium 9.2 Total Bilirubin 0.82 AST 14 ALT 13 Alkaline Phosphatase 75 Total Protein 7.0 Albumin 3.6 Globulin 3.3 Albumin/Globulin Ratio 1.1 Lipase 18 Urine Color Yellow Urine Clarity Clear Urine pH 6.0 Ur Specific Sandoval 1.010 Urine Protein 30 H Urine Glucose (UA) Normal Urine Ketones Negative Urine Occult Blood 10 H Urine Nitrite Negative Urine Bilirubin Negative Urine Urobilinogen Normal Ur Leukocyte Esterase 25 H Urine RBC 0-5 SEEN Urine WBC 0-5 SEEN Ur Squamous Epith Cells 0-5 SEEN Urine Bacteria 0 SEEN Urine Mucus 0 SEEN Radiography Diagnostic Testing: Clinical Impression(s) from Imaging Studies Abdomen/Pelvis CT 05/16/25 16:27 IMPRESSION: Interval development of moderate right intrahepatic ductal dilatation of uncertain etiology. No definitive obstructing mass or stone in the right hepatic duct. Left biliary intrahepatic ducts normal. Cholelithiasis. No definitive choledocholithiasis. Reading Location: [place] [address] Gallbladder Ultrasound 05/16/25 16:59 IMPRESSION: Cholelithiasis. No evidence for acute cholecystitis. Mild intra and extrahepatic biliary ductal dilatation, and prominence of the main pancreatic duct. No discrete obstructing mass or choledocholithiasis appreciated. MRCP may be helpful. Mild diffuse hepatic steatosis. Small benign-appearing hepatic cysts. Reading Location: [id number] Discharge Plan Disposition Disposition: Acute Care Hospital [facility] Discharge Date/Time: 05/16/25 21:57
[2025-05-16 15:45] LABS: AST(SGOT) 14 U/L (<=31); Alanine Aminotransfer ALT/SGPT 13 U/L (<=34); Albumin, Serum 3.6 g/dL (3.4-4.8); Alkaline Phosphatase 75 U/L (35-104); Anion Gap 13 (5-15); BUN 14 mg/dL (4-19); BUN/Creat Ratio 11.7 RATIO (10-20); Calcium,Total 9.2 mg/dL (7.6-11.0); Carbon Dioxide 21.6 mmol/L (21.0-32.0); Chloride 99 mmol/L (98-108); Estimated Creatinine Clearance 39.17 ml/min (50-250); Globulin 3.3 g/dL (2.2-4.2); Glucose 146 mg/dL (70-99); Lipase 18 U/L (13-75); Potassium 3.5 mmol/L (3.3-5.1)
--- NOTE | 2025-05-16 16:27 | CT_ITS ---
PROCEDURE: ABDOMEN/PELVIS W IV CONT ONLY 05/16/2025 REASON FOR EXAM: ABD PAIN, BLOOD IN STOOL, CONSTIPATED TECHNIQUE: Procedure Code: [id number] Modality: CT Procedure: ABDOMEN/PELVIS W IV CONT ONLY Coronal and Sagittal reconstruction series were provided. CONTRAST: Isovue 370 VOLUME: 90 mL One or more dose reduction techniques were used (e.g., Automated exposure control, adjustment of the mA and/or kV according to patient size, use of iterative reconstruction technique. RADIATION DOSE SUMMARY: CTDlvol: 26 mGy DLP: DLP 7 mGycm COMPARISON: December 2020 FINDINGS: Lung bases: Negative. ABDOMEN Liver: Right hepatic simple cysts, stable. Biliary system: Moderately prominent right-sided intrahepatic ducts. No focal obstructing lesion. Left-sided intrahepatic ducts negative. This is new. Common hepatic duct and common bile duct otherwise negative. Gallbladder: Contains stones. Negative for cholecystitis. Spleen: Negative. Pancreas: Surgical sam adjacent to the tail of the pancreas. Adrenals: Negative. Kidneys: Negative. Negative for kidney stones, cysts or masses. Bowel: Moderate increased stool throughout the colon. Negative for small or large-bowel obstruction. Appendix: The appendix is not identified. There is no inflammatory process identified in the right lower quadrant to suggest appendicitis. Vasculature: Moderate atherosclerotic vascular calcifications of the abdominal aorta and its branches. Peritoneum / Retroperitoneum: Negative. PELVIS Lymph nodes: Negative for inguinal or iliac adenopathy. Bladder: Urinary bladder negative. Reproductive Organs: Hysterectomy. Bones and Soft Tissues: Marked degenerative disc disease and facet disease mid and lower lumbar spine. Otherwise age appropriate appearance off the lumbar spine hips and pelvis. CT/Abdomen/Pelvis W IV Cont ONLY IMPRESSION: Interval development of moderate right intrahepatic ductal dilatation of uncert ain etiology. No definitive obstructing mass or stone in the right hepatic duct. Left biliar y intrahepatic ducts normal. Cholelithiasis. No definitive choledocholithiasis. Reading Location: [place] [address]
--- NOTE | 2025-05-16 16:59 | US_ITS ---
PROCEDURE: US GALLBLADDER 05/16/2025 REASON FOR EXAM: DILATED DUCTS ON CT TECHNIQUE: Procedure Code: USGB Modality: US Procedure: GALLBLADDER COMPARISON: Abdominal CT same day 05/16/2025. FINDINGS: Liver: Grossly normal in size. Mild diffuse increased echogenicity of the hepatic parenchyma compatible with fatty infiltration. No suspicious focal lesion. Benign-appearing 10 mm cyst in the right lobe. Gallbladder: Cholelithiasis. No significant wall thickening or pericholecystic fluid. There is mild intra and extrahepatic biliary ductal dilatation. No sonographic Nice's sign was elicited. Common bile duct: Mildly dilated, measuring 7-8 mm in diameter. Pancreas: Mild dilatation of the main pancreatic duct measuring 4 mm. Visualized portions of the pancreatic head/body otherwise unremarkable with no discrete mass lesion. Other: Visualized right kidney is unremarkable. No right upper quadrant ascites. US/Gallbladder IMPRESSION: Cholelithiasis. No evidence for acute cholecystitis. Mild intra and extrahepatic biliary ductal dilatation, and prominence of the ma in pancreatic duct. No discrete obstructing mass or choledocholithiasis appreciated. MRCP may be helpful. Mild diffuse hepatic steatosis. Small benign-appearing hepatic cysts. Reading Location: [id number]
[2025-05-16 17:36] LABS: Mucous, Urine 0 SEEN /hpf (<or=2+)
[2025-05-16 17:49] LABS: Color, Urine Yellow (Yellow); Glucose, Dipstick Normal (Normal); Ketone-Dipstick Negative (Negative); Leukocyte Esterase-Dipstick 25 /ul (Negative); Nitrite-Dipstick Negative (Negative); Occult Blood-Urine 10 /ul (Negative); Protein-Dipstick 30 mg/dl (Negative); Specific Gravity, Urine 1.010 (1.002-1.030); Urine Bilirubin Dipstick Negative (Negative)
[2025-05-16 18:30] LABS: Red Blood Cells-Urine 0-5 SEEN /hpf (0-5); Squamous Epithelial Cells - UA 0-5 SEEN /hpf (5-10)
--- NOTE | 2025-05-16 20:07 | PCM.HP.STD ---
[facility] - General General Date of Admission: 05/16/25 Date of Service: 05/16/25 Chief Complaint: Abdominal pain HPI Narrative DEZ GRANDE, is a 70 F who presents chief complaint of abdominal pain. Onset of symptoms began this this past with epigastric pain that radiated to the left side of her abdomen. Symptoms have progressed and on Friday she had blood in her stool. Patient admits to decrease in appetite but no nausea or vomiting. Pain is wax and wane but apparently got worse today so she came to the ER for evaluation. Patient has significant past medical history of COPD, hypertension, CHF and fibromyalgia. Laboratory studies show white blood cell count 12,000, hemoglobin 14.6, hemoglobin 44, platelets 292, sodium 134, potassium 3.5, chloride 99, bicarb 21.6, BUN 14, creatinine 1.17, glucose 146, AST 14, ALT 13, lipase 18. Ultrasound gallbladder was positive for cholelithiasis without obstruction showing mild intra and hepatic biliary duct dilatation. CT abdomen and pelvis shows no definitive stone obstruction however she does show multiple gallstones. Dr. Tadeo was notified by ER physician and agreed to do MRCP on this patient. She will be admitted to general medical floor made n.p.o. with IV fluids and pain medication as necessary. PFSH Medical History Hx of emotional problems Hormone deficiency Back problem HTN (hypertension) History of skin cancer CHF (congestive heart failure) Fibromyalgia Tobacco use Home Medications ?Medication ?Instructions ?Recorded ?Last Taken ?Type clonazepam 1 mg tablet 1 mg PO QHS 10/18/16 Unknown History multivitamin,br-apwv-pgncjzde 27 1 tab PO DAILY 10/18/16 Unknown History mg-0.4 mg tablet buspirone 15 mg tablet mg PO BID 10/09/23 Unknown History cyclobenzaprine 10 mg tablet mg PO BID 10/09/23 Unknown History olanzapine 15 mg tablet mg PO QHS 10/09/23 Unknown History duloxetine 30 mg capsule,delayed 30 mg PO QDAY 10/29/23 Unknown History release duloxetine 60 mg capsule,delayed 60 mg PO QDAY 10/29/23 Unknown History release losartan 50 mg tablet 50 mg PO QDAY 10/29/23 Unknown History potassium chloride 20 mEq 20 meq PO TID 10/29/23 Unknown History tablet,extended release(part/cryst) albuterol sulfate 90 mcg/actuation 2 puff inhalation Q6H PRN 05/04/24 Unknown Rx aerosol inhaler shortness of breath or wheezing #18 grams meclizine 25 mg tablet 50 mg PO BID 07/02/24 Unknown History fluticasone fur. 200 mcg-umeclid 1 inh inhalation DAILY #60 ea 11/22/24 Unknown Rx 62.5 mcg-vilant 25 mcg inhalat.powder (Trelegy Ellipta) Allergy/AdvReac Type Severity Reaction Status Date / Time codeine Allergy Unknown Verified 05/16/25 13:56 ciprofloxacin (From Cipro) AdvReac Vomiting Verified 05/16/25 13:56 Family History Sister Diabetes Brother Diabetes Heart disease Father Heart disease Surgical History History of left hip replacement Hx of hysterectomy History of carpal tunnel release of both wrists Social History household members: none Smoking Status: Current every day smoker tobacco type: cigarettes and e-cigarettes Tobacco: How many years used: 40 Electronic Cigarette Use: with nicotine how long ago did patient quit smokin quit smoking cigarettes, 1ppd vaping currently second hand exposure: Yes ROS Constitutional Constitutional: Denies chills or fever(s) Eyes Eyes: Denies blurry vision ENT HEENT: Denies abnormal hearing Cardiovascular Cardiovascular: Denies chest pain Respiratory/Chest Respiratory/Chest: Denies shortness of breath at rest Gastrointestinal Gastrointestinal: Reports abdominal pain, dyspepsia and hematochezia; Denies diarrhea Genitourinary Genitourinary: Denies dysuria Musculoskeletal Musculoskeletal: Denies back pain Integumentary Integumentary: Denies jaundice Neurologic Neurologic: Denies abnormal gait Psychiatric Psychiatric: Denies anxiety Vital Signs Vital Signs Vital Signs: 05/16/25 13:56 05/16/25 14:45 05/16/25 15:34 Temperature 98.4 F Temperature Source Oral Pulse Rate 97 80 80 Respiratory Rate 18 18 17 Blood Pressure 160/98 H 139/105 H 141/99 H Blood Pressure Mean 118 116 113 Pulse Ox 98 100 100 Oxygen Delivery Method Room Air Room Air Room Air 05/16/25 16:40 05/16/25 17:00 05/16/25 18:00 Temperature Temperature Source Pulse Rate 81 67 83 Respiratory Rate 16 16 17 Blood Pressure 120/89 H 140/70 H 163/94 H Blood Pressure Mean 99 93 117 Pulse Ox 97 97 99 Oxygen Delivery Method 05/16/25 19:00 Temperature Temperature Source Pulse Rate 87 Respiratory Rate 16 Blood Pressure 143/91 H Blood Pressure Mean 108 Pulse Ox 100 Oxygen Delivery Method Weight Weight: 140 lb Body Mass Index (BMI) 25.6 Physical Exam Const oriented x3 General Appearance: cooperative and well developed HEENT head/scalp atraumatic Eyes PERRL Neck no lymphadenopathy Lymph Lymphatic: no lymphadenopathy noted Resp normal respiratory effort, normal air movement and clear to auscultation bilaterally Cardio regular rate, regular rhythm, S1 normal heart sound and S2 normal heart sound GI GI Narrative: Positive bowel sounds Palpation: tender epigastric and LUQ Extremity normal capillary refill and no clubbing, cyanosis or edema Skin General Skin Exam: no breakdown Neuro no focal motor deficits and no sensory deficits noted Psych thought process normal, cooperative and affect normal Results Lab / Micro Data 05/16/25 14:30 05/16/25 14:30 Labs: Laboratory Results - last 24 hr 05/16/25 14:30: WBC 12.0 H, RBC 4.99, Hgb 14.6, Hct 44.0, MCV 88.2, MCH 29.3, MCHC 33.2, RDW Std Deviation 44.4 H, RDW Coeff of Nikolas 13.8, Plt Count 292, MPV 10.2, Immature Gran % (Auto) 0.600, Neut % (Auto) 65.6, Lymph % (Auto) 21.9, [place] % (Auto) 10.2 H, Eos % (Auto) 0.9, Baso % (Auto) 0.8, Absolute Neuts (auto) 7.9 H, Absolute Lymphs (auto) 2.63, Nucleated RBC % 0, Sodium 134, Potassium 3.5, Chloride 99, Carbon Dioxide 21.6, Anion Gap 13, BUN 14, Creatinine 1.17, Estim Creat Clear Calc 39.17 L, Est GFR (MDRD) Non-Af 50 L, BUN/Creatinine Ratio 11.7, Glucose 146 H, Calcium 9.2, Total Bilirubin 0.82, AST 14, ALT 13, Alkaline Phosphatase 75, Total Protein 7.0, Albumin 3.6, Globulin 3.3, Albumin/Globulin Ratio 1.1, Lipase 18 05/16/25 17:28: Urine Color Yellow, Urine Clarity Clear, Urine pH 6.0, Ur Specific [place] 1.010, Urine Protein 30 H, Urine Glucose (UA) Normal, Urine Ketones Negative, Urine Occult Blood 10 H, Urine Nitrite Negative, Urine Bilirubin Negative, Urine Urobilinogen Normal, Ur Leukocyte Esterase 25 H, Urine RBC 0-5 SEEN, Urine WBC 0-5 SEEN, Ur Squamous Epith Cells 0-5 SEEN, Urine Bacteria 0 SEEN, Urine Mucus 0 SEEN Micro: Microbiology 05/16/25 15:40 Stool Stool Occult Blood (MARVIN) - Final Occult Blood Positive Imaging Radiology Impression Abdomen/Pelvis CT 05/16/25 16:27 IMPRESSION: Interval development of moderate right intrahepatic ductal dilatation of uncertain etiology. No definitive obstructing mass or stone in the right hepatic duct. Left biliary intrahepatic ducts normal. Cholelithiasis. No definitive choledocholithiasis. Reading Location: [place] [id number] Gallbladder Ultrasound 05/16/25 16:59 IMPRESSION: Cholelithiasis. No evidence for acute cholecystitis. Mild intra and extrahepatic biliary ductal dilatation, and prominence of the main pancreatic duct. No discrete obstructing mass or choledocholithiasis appreciated. MRCP may be helpful. Mild diffuse hepatic steatosis. Small benign-appearing hepatic cysts. Reading Location: [id number] Assessment & Plan Assessment/Plan (1) COPD (chronic obstructive pulmonary disease): (2) JORGE (obstructive sleep apnea): (3) HTN (hypertension): (4) CHF (congestive heart failure): (5) Fibromyalgia: (6) Smoking greater than 30 pack years: (7) Cholelithiases: PLAN: Plan 1 cholelithiasis?admit patient to general medical floor, consult Dr. Tadeo gastroenterology. Make patient n.p.o., IV normal saline rate 125 cc/h, will add Dilaudid 1 mg IV every 3 hours as needed for severe pain. Repeat CMP, CBC in a.m. 2. Hypertension?continue routine home medication 3. Smoking history?cessation encouraged may offer nicotine patch if patient requests 4. COPD?continue inhalation treatments per routine at home care and may add oxygen as needed here to maintain saturation greater than 90%. 5. DVT prophylaxis?low molecular weight heparin 6. CODE STATUS full verified Charges/Coding Visit Charges Inpatient E&M: 07691 Init Hosp L2
[2025-05-16] MEDS: 0.9% Normal Saline (1000mL) 1,000 ML 125 ML IV (22:28)
--- NOTE | 2025-05-16 22:32 | EKG12_ITS ---
Test Reason : PRE-OP Blood Pressure : */* mmHG Vent. Rate : 70 BPM Atrial Rate : 70 BPM P-R Int : 170 ms QRS Dur : 84 ms QT Int : 392 ms P-R-T Axes : 89 89 83 degrees QTcB Int : 423 ms Normal sinus rhythm Possible Left atrial enlargement Borderline ECG When compared with ECG of 24-Dec-2020 17:25, No significant change was found Confirmed by FRANCIS CABALLERO, MELLISA ([id number]), legal editor BOYD ASHBY ([id number]) on 05/18/2025 8:58:01 AM Referred By: PUNEET Confirmed By: MELLISA BLANCO MD
[2025-05-16] MEDS: 0.9% Saline Lock 10 ML Syringe IV (22:50)
--- NOTE | 2025-05-16 23:37 | PCM.HOSP.N ---
Hospitalist Note Pt admitted from ER without having received any analgesia for her severe 9/10 abdominal pain. Only ondansetron ordered for nausea at this time. Order placed for ketorolac 15mg IV q6h PRN pain 1-5/10 and hydromorphone 0.2mg IV q4h PRN pain 6-10/10. Monitoring renal function.
[2025-05-17] VITALS (8 sets, daily range): BP systolic 111–150; BP diastolic 68–94; PULSE 70–96; RESP 16–18; TEMP 36.5–37; O2SAT 94–100; BMI 25.9
[2025-05-17 03:35] LABS: Hematocrit 39.3 % (37-47); Hemoglobin 13.4 g/dL (12.0-15.0); Immature Granulocytes Count 0.070 X10^3/uL (0.0-0.0); Mean Corp Hgb Conc 34.1 g/dL (32-36); Mean Corpuscular Volume 86.0 fL (81-99); Mean Platelet Vol. 10.3 fl (6.2-12.0); NRBC Flagged by Analyzer 0 % (0-5); Platelet Count 279 K/mm3 (150-450); RBC Distribution Width CV 13.7 % (11.6-14.6); RBC Distribution Width SD 42.9 fl (35.1-43.9); Red Blood Count 4.57 M/mm3 (4.2-5.4); White Blood Count 11.0 K/mm3 (4.4-11.0)
[2025-05-17] MEDS: 0.9% Saline Lock 10 ML Syringe IV ×2 (03:58→20:04)
[2025-05-17] MEDS: HYDROmorphone Inj 0.2 MG/ML SYRINGE IV (03:58)
[2025-05-17 04:21] LABS: AST(SGOT) 16 U/L (<=31); Alanine Aminotransfer ALT/SGPT 11 U/L (<=34); Albumin, Serum 3.4 g/dL (3.4-4.8); Alkaline Phosphatase 82 U/L (35-104); Anion Gap 13 (5-15); BUN 13 mg/dL (4-19); BUN/Creat Ratio 12.8 RATIO (10-20); Calcium,Total 8.4 mg/dL (7.6-11.0); Carbon Dioxide 21.0 mmol/L (21.0-32.0); Chloride 100 mmol/L (98-108); Estimated Creatinine Clearance 44.72 ml/min (50-250); Globulin 2.8 g/dL (2.2-4.2); Glucose 86 mg/dL (70-99); Potassium 3.5 mmol/L (3.3-5.1)
[2025-05-17] MEDS: 0.9% Normal Saline (1000mL) 1,000 ML 125 ML IV ×2 (06:13→14:00)
[2025-05-17] MEDS: Budesonide Respules 0.5 MG/2 ML AMPUL.NEB. INHALATION ×2 (07:02→19:32)
[2025-05-17] MEDS: FLU VACCINE HIGH DOSE 25-26(65YR UP) 180 MCG/0.5 ML SYRINGE IM (09:27)
--- NOTE | 2025-05-17 11:14 | PN.HOSP_ITS ---
Subjective Subjective Abdominal pain is improved today. Plan for MRCP Objective Data Objective Data Vital Signs: Vital Signs Temp Pulse Resp BP Pulse Ox O2 Del Method 97.9 F 72 16 138/74 H 100 Room Air 05/17/25 09:00 05/17/25 09:00 05/17/25 09:00 05/17/25 09:00 05/17/25 09:00 05/17/25 09:00 Oxygen Delivery Method Room Air Weight: 141 lb 8.588 oz Body Mass Index (BMI) 25.9 Intake & Output: Intake and Output for Last 24 Hours 05/16/25 05/17/25 05/18/25 03:59 03:59 03:59 Intake Total 400 / 400 968.75 / 968.75 Balance 400 / 400 968.75 / 968.75 Lab / Micro Data 05/17/25 03:15 05/17/25 03:15 Labs: Laboratory Results - last 24 hr 05/16/25 14:30: WBC 12.0 H, RBC 4.99, Hgb 14.6, Hct 44.0, MCV 88.2, MCH 29.3, MCHC 33.2, RDW Std Deviation 44.4 H, RDW Coeff of Nikolas 13.8, Plt Count 292, MPV 10.2, Immature Gran % (Auto) 0.600, Neut % (Auto) 65.6, Lymph % (Auto) 21.9, M beto % (Auto) 10.2 H, Eos % (Auto) 0.9, Baso % (Auto) 0.8, Absolute Neuts (auto) 7.9 H, Absolute Lymphs (auto) 2.63, Nucleated RBC % 0, Sodium 134, Potassium 3.5, Chloride 99, Carbon Dioxide 21.6, Anion Gap 13, BUN 14, Creatinine 1.17, E stim Creat Clear Calc 39.17 L, Est GFR (MDRD) Non-Af 50 L, BUN/Creatinine Ratio 11.7, Glucose 146 H, Calcium 9.2, Total Bilirubin 0.82, AST 14, ALT 13, Alkaline Phosphatase 75, Total Protein 7.0, Albumin 3.6, Globulin 3.3, Albumin/Globulin Ratio 1.1, Lipase 18 05/16/25 17:28: Urine Color Yellow, Urine Clarity Clear, Urine pH 6.0, Ur Specific [place] 1.010, Urine Protein 30 H, Urine Glucose (UA) Normal, Urine Ketones Negative, Urine Occult Blood 10 H, Urine Nitrite Negative, Urine Bilirubin Negative, Urine Urobilinogen Normal, Ur Leukocyte Esterase 25 H, Urine RBC 0-5 SEEN, Urine WBC 0-5 SEEN, Ur Squamous Epith Cells 0-5 SEEN, Urine Bacteria 0 SEEN, Urine Mucus 0 SEEN 05/17/25 03:15: WBC 11.0, RBC 4.57, Hgb 13.4, Hct 39.3, MCV 86.0, MCH 29.3, MCHC 34.1, RDW Std Deviation 42.9, RDW Coeff of Nikolas 13.7, Plt Count 279, MPV 10.3, Immature Gran % (Auto) 0.600, Neut % (Auto) 57.9, Lymph % (Auto) 25.6, Mcintosh % (Auto) 13.6 H, Eos % (Auto) 1.5, Baso % (Auto) 0.8, Absolute Neuts (auto) 6.4, Absolute Lymphs (auto) 2.82, Nucleated RBC % 0, Sodium 134, Potassium 3.5, Chloride 100, Carbon Dioxide 21.0, Anion Gap 13, BUN 13, Creatinine 1.03, Estim Creat Clear Calc 44.72 L, Est GFR (MDRD) Non-Af 58 L, BUN/Creatinine Ratio 12.8, Glucose 86, Calcium 8.4, Total Bilirubin 0.83, AST 16, ALT 11, Alkaline Phosphatase 82, Total Protein 6.2, Albumin 3.4, Globulin 2.8, Albumin/Globulin Ratio 1.2 Micro: Microbiology 05/16/25 15:40 Stool Stool Occult Blood (MARVIN) - Final Occult Blood Positive Radiography Diagnostic Testing: Radiology Impression Abdomen/Pelvis CT 05/16/25 16:27 IMPRESSION: Interval development of moderate right intrahepatic ductal dilatation of uncertain etiology. No definitive obstructing mass or stone in the right hepatic duct. Left biliary intrahepatic ducts normal. Cholelithiasis. No definitive choledocholithiasis. Reading Location: [place] [id number] Gallbladder Ultrasound 05/16/25 16:59 IMPRESSION: Cholelithiasis. No evidence for acute cholecystitis. Mild intra and extrahepatic biliary ductal dilatation, and prominence of the main pancreatic duct. No discrete obstructing mass or choledocholithiasis appreciated. MRCP may be helpful. Mild diffuse hepatic steatosis. Small benign-appearing hepatic cysts. Reading Location: [id number] Physical Exam Narrative General: Alert, Oriented x3, Cooperative, No apparent distress HEENT: Atraumatic, PERRLA, EOMI, Normocephalic Oral: Moist Mucosa Neck: Supple, No JVD Lungs: Diminished, Normal air movement, No rhonchi, No wheeze, No rales Cardiovascular: Regular rate, Regular Rhythm, Normal S1, Normal S2, No murmurs Abdomen: Soft, Non Tender, Non-Distended, No Hepato-splenomegaly Extremities: No edema, Capillary Refill Less than 3 Seconds Skin: No rashes, No breakdown Musculoskeletal: No Tenderness to Palpation of Joints or Extremities Neurological: No focal neurological deficits, moves all extremities, sensation intact Psych/Mental Status: Normal Affect, Appropriate Assessment & Plan Assessment/Plan (1) Cholelithiases: PLAN: Plan 1. Cholelithiasis without cholecystitis with right intrahepatic ductal dilatation ? Pain so far has been controlled overnight ? Continue with n.p.o. ? Consult GI ? Proceed with an MRCP ? Continue with IV fluids 2. Essential HTN ? Blood pressures currently are stable ? Can resume her home blood pressure medications 3. Anxiety/depression ? Stable ? Can resume her home medications 4. COPD/tobacco abuse ? Stable ? Not in exacerbation ? Can resume her home inhalers ? Discussed tobacco cessation DVT: Lovenox Charges/Coding Visit Charges Inpatient E&M: 34869 Subs Hosp L2
--- NOTE | 2025-05-17 11:16 | CASEMGMT ---
Dx:cholelithiasis LACE:2 6-Clicks:24 Medical record reviewed and patient evaluated for identification of discharge planning needs. Based on this review, at this time criteria are not present to indicate a need for discharge planning. Will remain available to assist with discharge planning needs as identified or requested. Pt to have MRCP today.
--- NOTE | 2025-05-17 11:19 | MRI_ITS ---
PROCEDURE: MRCP ABDOMEN WITHOUT CONTRAST 05/18/2025 REASON FOR EXAM: RIGHT INTRAHEPATIC DUCTAL DILATATION TECHNIQUE: Procedure Code: MRIMRCP Modality: MR Procedure: MRCP ABDOMEN WITHOUT CONTRAST Multiplanar and multisequence images were obtained. COMPARISON: 16-May-2025 FINDINGS: Distended gall bladder showing few low signal calculi, the largest 8 mm. No abnormal mural thickening. No related carlton-cholecystic collections. Relatively prominent extra-hepatic biliary tracts with the CBD reaches 6 mm in diameter showing no intraluminal filling defects. Normal appearance of the intra-hepatic biliary tracts. The pancreatic duct is relatively prominent. Unremarkable pancreas with no sizeable obstructing masses. Average sized liver showing homogenous parenchymal signal with hepatic dome small cyst. No masses. The spleen and adrenal glands are unremarkable. Both kidneys are normal in size and position. No hydronephrosis or focal masses could be seen in both kidneys. Few bilateral renal cortical cysts with mild perinephric fat stranding. Small and large bowel loops appears largely collapsed however, is grossly unremarkable. Stomach shows no significant abnormality. No ascites or collections. No significant lymph node enlargement is seen in the abdomen. No marrow infiltrative lesions. MRI/MRCP Abdomen without Contrast IMPRESSION: Gall bladder calculi. No cholecystitis. Relatively prominent extra-hepatic biliary tracts with prominent pancreatic duy t showing no intraluminal filling defects or pancreatic head masses, possibly age related . [facility]
--- NOTE | 2025-05-17 19:49 | EX.PCM.CON.G ---
HPI Consult Data Date of Consult: 05/17/25 HPI Narrative Reason for Consultation: abdominal pain HPI Narrative: DEZ GRANDE, is a 70 F who presented to the emergency department for abdominal pain. Patient has a past medical history of COPD, hypertension, CHF, fibromyalgia. Patient states that on she started to have left sided abdominal pain. She has a history of chronic constipation. Reports that on Friday she had a small hard bowel movement that had dark blood in it. She endorses some nausea with no vomiting. States the abdominal pain continued yesterday and today. Denies any fever, chills, chest pain, shortness of breath, dysuria or hematuria. Denies ever having abdominal pain like this in the past. She does not take anything for her symptoms. No BM yesterday or today. She is not on any OAC. Denies any alcohol or NSAID use. CT/Abdomen/Pelvis: Interval development of moderate right intrahepatic ductal dilatation of uncertain etiology. No definitive obstructing mass or stone in the right hepatic duct. Left biliary intrahepatic ducts normal. Cholelithiasis. No definitive choledocholithiasis. US/Gallbladder: Cholelithiasis. No evidence for acute cholecystitis. Mild intra and extrahepatic biliary ductal dilatation, and prominence of the main pancreatic duct. No discrete obstructing mass or choledocholithiasis appreciated. MRCP may be helpful. Mild diffuse hepatic steatosis. Small benign-appearing hepatic cysts MRCP is pending [facility] Medical History Hx of emotional problems Hormone deficiency Back problem HTN (hypertension) History of skin cancer CHF (congestive heart failure) Fibromyalgia Tobacco use Home Medications ?Medication ?Instructions ?Recorded ?Last Taken ?Type clonazepam 1 mg tablet 1 mg PO QHS anxiety 10/18/16 Unknown History multivitamin,za-vnnt-cafiipys 27 1 tab PO DAILY supplement 10/18/16 Unknown History mg-0.4 mg tablet buspirone 15 mg tablet 15 mg PO BID mood 10/09/23 Unknown History cyclobenzaprine 10 mg tablet 10 mg PO BID muscle spasm 10/09/23 Unknown History olanzapine 15 mg tablet 15 mg PO QHS mood 10/09/23 Unknown History duloxetine 30 mg capsule,delayed 30 mg PO QDAY mood 10/29/23 Unknown History release duloxetine 60 mg capsule,delayed 60 mg PO QDAY mood 10/29/23 Unknown History release losartan 50 mg tablet 50 mg PO QDAY bp 10/29/23 Unknown History potassium chloride 20 mEq 20 meq PO TID supplement 10/29/23 Unknown History tablet,extended release(part/cryst) albuterol sulfate 90 mcg/actuation 2 puff inhalation Q6H PRN 05/04/24 Unknown Rx aerosol inhaler shortness of breath or wheezing #18 grams meclizine 25 mg tablet 50 mg PO BID vertigo 07/02/24 Unknown History fluticasone fur. 200 mcg-umeclid 1 inh inhalation DAILY sob #60 ea 11/22/24 Unknown Rx 62.5 mcg-vilant 25 mcg inhalat.powder (Trelegy Ellipta) Allergy/AdvReac Type Severity Reaction Status Date / Time codeine Allergy Unknown Verified 05/16/25 13:56 ciprofloxacin (From Cipro) AdvReac Vomiting Verified 05/16/25 13:56 Family History Sister Diabetes Brother Diabetes Heart disease Father Heart disease Surgical History History of left hip replacement Hx of hysterectomy History of carpal tunnel release of both wrists Social History household members: none Smoking Status: Current every day smoker tobacco type: cigarettes and e-cigarettes Tobacco: How many years used: 40 Electronic Cigarette Use: with nicotine how long ago did patient quit smokin quit smoking cigarettes, 1ppd vaping currently second hand exposure: Yes Lab / Micro Data 05/17/25 03:15 05/17/25 03:15 Labs: Laboratory Results - last 24 hr 05/17/25 03:15: WBC 11.0, RBC 4.57, Hgb 13.4, Hct 39.3, MCV 86.0, MCH 29.3, MCHC 34.1, RDW Std Deviation 42.9, RDW Coeff of Nikolas 13.7, Plt Count 279, MPV 10.3, Immature Gran % (Auto) 0.600, Neut % (Auto) 57.9, Lymph % (Auto) 25.6, [place] % (Auto) 13.6 H, Eos % (Auto) 1.5, Baso % (Auto) 0.8, Absolute Neuts (auto) 6.4, Absolute Lymphs (auto) 2.82, Nucleated RBC % 0, Sodium 134, Potassium 3.5, Chloride 100, Carbon Dioxide 21.0, Anion Gap 13, BUN 13, Creatinine 1.03, Estim Creat Clear Calc 44.72 L, Est GFR (MDRD) Non-Af 58 L, BUN/Creatinine Ratio 12.8, Glucose 86, Calcium 8.4, Total Bilirubin 0.83, AST 16, ALT 11, Alkaline Phosphatase 82, Total Protein 6.2, Albumin 3.4, Globulin 2.8, Albumin/Globulin Ratio 1.2 Micro: Microbiology 05/16/25 15:40 Stool Stool Occult Blood (MARVIN) - Final Occult Blood Positive Assessment & Plan Assessment/Plan (1) Abnormal finding on imaging of liver: PLAN: 70-year-old female with an incidental finding of a double duct sign (mild dilation of both the biliary and pancreatic ducts) and an intact gallbladder. The absence of a visible obstructing mass, choledocholithiasis, and normal LFTs makes this a challenging diagnosis. Differential diagnoses include: Benign etiology:?In older patients, mild dilation can sometimes be benign and not require intervention. Other possibilities include chronic pancreatitis or a periampullary diverticulum. Malignancy:?The double duct sign, especially when found with a prominent pancreatic duct, suggests the possibility of pancreatic or ampullary malignancy, even without a visible mass on initial imaging. This warrants further investigation. Post-cholecystectomy changes:?The patient's gallbladder is intact, so this is not a consideration. However, dilation in an older patient with a prior cholecystectomy is a known phenomenon. Plan Further workup:?The imaging results warrant a higher-level investigation to rule out a subtle or developing malignancy. MRCP (Magnetic Resonance Cholangiopancreatography):?Await MRCP EUS (Endoscopic Ultrasound):?This procedure can provide high-resolution imaging of the pancreatic head, ampulla, and bile ducts, and allows for tissue sampling if a lesion is identified. Charges/Coding Visit Charges Inpatient E&M: 46416 Init Hosp L3
[2025-05-17] MEDS: OLANZapine 5 MG/TAB TAB.RAPDIS 15 MG PO (21:22)
[2025-05-18] VITALS (16 sets, daily range): BP systolic 125–165; BP diastolic 72–97; PULSE 74–91; RESP 15–18; TEMP 36.3–37.1; O2SAT 93–99
[2025-05-18] MEDS: 0.9% Normal Saline (1000mL) 1,000 ML 125 ML IV ×3 (00:09→20:14)
[2025-05-18] MEDS: HYDROmorphone Inj 0.2 MG/ML SYRINGE IV ×2 (01:06→20:14)
[2025-05-18] MEDS: 0.9% Saline Lock 10 ML Syringe IV ×2 (01:06→20:16)
--- NOTE | 2025-05-18 08:27 | PN.HOSP_ITS ---
Reason for Visit Chief Complaint: Abdominal pain Subjective Subjective Patient is a 70-year-old female who presented with abdominal pain. Ultrasound of the gallbladder demonstrated cholelithiasis with no evidence of acute cholecystitis Objective Data Objective Data Vital Signs: Vital Signs Temp Pulse Resp BP Pulse Ox O2 Del Method 98.5 F 82 16 143/76 H 99 Room Air 05/18/25 05:18 05/18/25 05:18 05/18/25 05:18 05/18/25 05:18 05/18/25 05:18 05/18/25 05:20 Oxygen Delivery Method Room Air Weight: 64.2 kg Body Mass Index (BMI) 25.9 Intake & Output: Intake and Output for Last 24 Hours 05/16/25 05/17/25 05/18/25 23:59 23:59 23:59 Intake Total 400 / 400 3441.67 / 3441.67 500 / 500 Balance 400 / 400 3441.67 / 3441.67 500 / 500 Lab / Micro Data 05/17/25 03:15 05/17/25 03:15 Micro: Microbiology 05/16/25 15:40 Stool Stool Occult Blood (MARVIN) - Final Occult Blood Positive Radiography Diagnostic Testing: Radiology Impression MRCP 05/17/25 11:19 IMPRESSION: Gall bladder calculi. No cholecystitis. Relatively prominent extra-hepatic biliary tracts with prominent pancreatic duct showing no intraluminal filling defects or pancreatic head masses, possibly age related . Reading Location: [place] [address] Physical Exam Narrative GENERAL: cooperative HEENT: Atraumatic; normocephalic EYES; Anicteric, Normal Conjunctiva NECK; supple, normal thyroid, RESPIRATORY: Diminished to auscultation CARDIOVASCULAR: Regular S1 S2, GI: soft, normoactive bowel sounds, : No Renal angle tenderness; EXTREMITIES: No edema, no clubbing, MUSCULOSKELETAL: no muscle wasting NEURO: Awake; no lateralizing signs. SKIN: No Rash PSYCH; Flat affect Assessment & Plan Assessment/Plan (1) Cholelithiases: PLAN: Plan Patient is a 70-year-old female who presented with abdominal pain. Ultrasound of the gallbladder demonstrated cholelithiasis with no evidence of acute cholecystitis 1. Abdominal pain ? Secondary to cholelithiasis. Ultrasound of the gallbladder did show Mild intra and extrahepatic biliary ductal dilatation, and prominence of the main pancreatic duct. No discrete obstructing mass or choledocholithiasis appreciated. Admitted to regular nursing floor for symptom management consult placed to GI patient seen by Dr. Tadeo and is for patient to undergo ERCP 2. Hypertension ? Blood pressure controlled, home medications continued with dose adjustment as needed 3. Depression with anxiety ? Patient is on duloxetine, olanzapine as well as clonazepam 4. Tobacco dependence ? Counseled on cessation, offered nicotine patch for tobacco cravings 5. COPD ? Currently not in exacerbation aerosol treatments as needed 6. Obstructive sleep apnea ? Consistent use of PAP therapy encouraged 7 DVT prophylaxis ? Subcu Lovenox Time spent in the patient's overall evaluation,decision-making process, review of diagnostic data, adjustment of management, discussion with other providers, nursing nursing and ancillary staff involved in patient's care documentation, 40 Minutes Charges/Coding Visit Charges Inpatient E&M: 01940 Subs Hosp L2
--- NOTE | 2025-05-18 12:38 | PCM.PRE.AN2 ---
ASA Classification* ASA Classification ASA Classification: 3 Assessment & Plan Anesthesia* Anesthesia Assessment Anesthesia Assessment: Discussed sedation and/or anesthesia options, risks, benefits, and alternatives with patient/parents/legal guardian/POA. Questions invited. The patient/parents/legal guardian/POA seems to understand and agrees to proceed with anesthesia plan. Reviewed the physical assessment, medical history, allergy history and patient home medications list prior to surgery/procedure/anesthetic and documented any changes. Performed airway and anesthesia risk assessments. Anesthesia Type Anesthesia Type: General History Source History Obtained from:: Patient and Chart Anesthesia Focused Assessment* Temperature: 98.1 F Pulse Rate: 80 Blood Pressure: 134/76 Respiratory Rate: 16 Pulse Ox: 95 Oxygen Delivery Method: Room Air Airway Assessment Mouth opens: >3 cm Mallampati Score: III Teeth Condition: Chipped/Broken and Missing Labs Anesthesia Preop lab: CBC WBC, (4.4-11.0) 11.0 K/mm3 05/17/25, 03:15 RBC, (4.2-5.4) 4.57 M/mm3 05/17/25, 03:15 Hgb, (12.0-15.0) 13.4 g/dL 05/17/25, 03:15 Hct, (37-47) 39.3 % 05/17/25, 03:15 Plt Count, (150-450) 279 K/mm3 05/17/25, 03:15 CHEMISTRY Potassium, (3.3-5.1) 3.5 mmol/L 05/17/25, 03:15 Sodium, (133-145) 134 mmol/L 05/17/25, 03:15 Magnesium, (1.6-2.6) 2.1 mg/dL 10/21/19, 15:09 BUN, (4-19) 13 mg/dL 05/17/25, 03:15 Creatinine, (0.70-1.20) 1.03 mg/dL 05/17/25, 03:15 Glucose, (70-99) 86 mg/dL 05/17/25, 03:15 TSH, (0.358-3.74) 2.47 uIU/mL 10/21/19, 15:09 COAG Pre-Assessment Diagnosis/Proposed Procedure Planned Operative Procedure(s): ERCP Anesthesia History Anesthesia History - geospatial developer: Anesthesia History - geospatial developer Hx Hospitalization Yes 09/10/19 13:04 Any Problems With Anesthesia No 05/18/25 01:02 Cholinesterase deficiency No 05/18/25 01:02 You/Your Family Experience No 05/18/25 01:02 fever (hyperthermia) with Relationship Recent Exposure to Contagious No 05/18/25 01:02 Disease Does patient have nerve No 05/18/25 01:02 stimulator Patient instructed to have No 05/18/25 01:02 device shut off --Does patient have Pacemaker No 05/17/25 22:42 or ICD? When Was Last Pacemaker Check QUESTION #4 FULL TEXT: You/Your Family Experience fever (hyperthermia) with Anesthesia Last Oral Intake Last Oral intake: Last Oral Intake NPO since 08:30 05/17/25 22:42 Meds taken in AM with sips of No 05/17/25 22:42 water? Meds patient instructed to take am of surgery PONV PONV - geospatial developer: PONV - geospatial developer Female HX of Motion Sickness HX of N/V After Surgery Non-Smoker Duration of Surgery greater than 60 minutes Number of Risk Factors PONV Score Height & Weight Height & Weight: Anesthesia: Height & Weight Height 5 ft 2 in 05/17/25 22:42 Weight: 64.2 kg 05/17/25 22:42 Body Mass Index (BMI) 25.9 05/17/25 22:42 Respiratory Assessment Respiratory Assessment - geospatial developer: Respiratory Tract Infection Hx - geospatial developer Hx Respiratory Tract Infection No 05/18/25 01:02 STOP Sleep Apnea STOP Sleep Apnea - geospatial developer: STOP Sleep Apnea - geospatial developer Hx Hypertension Yes 05/16/25 22:11 Hx Sleep Apnea No 05/16/25 22:11 CPAP BIPAP Do you snore loudly (louder No 05/16/25 22:11 than talking or can be heard Do you often feel tired/ No 05/16/25 22:11 fatigued/ sleepy during daytime? Has anyone observed you stop No 05/16/25 22:11 breathing during sleep? STOP Results Negative 05/16/25 22:11 QUESTION #5 FULL TEXT : Do you snore loudly (louder than talking or can be heard through closed doors)? 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 Specify any problems Hx of Preganancy in last 3 No 05/16/25 22:11 Months Nurse Filling Out Transfusion DREDICK 05/16/25 22:11 & Questions: Date: 05/16/25 05/16/25 22:11 Time: 22:11 05/16/25 22:11 Patient unable to answer at this time (ie. confused, unrespo /Reproduction History /Reproductive History - geospatial developer: /Reproductive Hx- geospatial developer Hx Now No 05/18/25 01:02 Gestational Age (in weeks): EDC: Hx Hx Para Hx Section SAB No 05/18/25 01:02 Active Medications Active Medications: Current Medications Generic Name Dose Route Start Last Admin Trade Name Freq PRN Reason Stop Dose Admin Albuterol Sulfate 2.5 mg 05/16/25 22:04 Albuterol 2.5 Mg/3 Ml Vial.Neb. INHALATION Q4H PRN PRN shortness of breath/wheezing Albuterol/Ipratropium 3 ml 05/17/25 00:00 05/17/25 19:32 Ipratropium/Albuterol Sulfate 3 Ml Ampul.Neb INHALATION 3 ml Q6HWA.RT JEROD Administration Budesonide 0.5 mg 05/17/25 06:00 05/17/25 19:32 Budesonide Respules 0.5 Mg/2 Ml Ampul.Neb. INHALATION 0.5 mg Q12H.RT JEROD Administration Buspirone HCl 15 mg 05/17/25 22:00 05/18/25 11:09 Buspirone 15 Mg Tablet PO Not Given BID JEROD Clonazepam 1 mg 05/17/25 22:00 05/17/25 21:22 Clonazepam 1 Mg Tablet PO 1 mg QHS JEROD Administration Duloxetine HCl 30 mg 05/18/25 10:00 05/18/25 11:09 Duloxetine Hcl 30 Mg Capsule PO Not Given DAILY JEROD Duloxetine HCl 60 mg 05/18/25 10:00 05/18/25 11:10 Duloxetine Hcl 60 Mg Capsule PO Not Given DAILY JEROD Enoxaparin Sodium 40 mg 05/17/25 10:00 05/18/25 11:09 Enoxaparin 40 Mg/0.4 Ml Syringe SC Not Given DAILY JEROD Hydromorphone HCl 0.2 mg 05/16/25 22:35 05/18/25 01:06 Hydromorphone Inj 0.2 Mg/Ml Syringe IV 0.2 mg Q4H PRN PRN Administration Pain Score 6-10 Sodium Chloride 1,000 mls @ 125 mls/hr 05/16/25 22:04 05/18/25 09:08 IV 125 mls/hr .Q8H JEROD Administration Sodium Chloride 250 mls @ 15 mls/hr 05/16/25 22:05 IV .[id number] PRN Saline Flush Sodium Chloride 250 mls @ 15 mls/hr 05/16/25 22:05 IV .[id number] PRN Additional IVPB Infusion Ketorolac Tromethamine 15 mg 05/16/25 22:35 05/18/25 05:19 Ketorolac 15 Mg/Ml Vial IV 05/21/25 22:37 15 mg Q6H PRN PRN Administration Pain Score 1-5 Losartan Potassium 50 mg 05/18/25 10:00 05/18/25 11:09 Losartan Potassium 50 Mg Tablet PO Not Given DAILY JEROD Protocol Olanzapine 15 mg 05/17/25 22:00 05/17/25 21:22 Olanzapine 5 Mg/Tab Tab.Rapdis PO 15 mg QHS JEROD Administration Ondansetron HCl 4 mg 05/16/25 22:04 Ondansetron 4 Mg/2 Ml Vial IV Q8H PRN PRN NAUSEA/VOMITING Sodium Chloride 10 - 40 ml 05/16/25 22:05 05/18/25 01:06 0.9% Saline Lock 10 Ml Syringe IV 10 ml UD PRN Administration SALINE FLUSH PFSH Medical History Hx of emotional problems Hormone deficiency Back problem HTN (hypertension) History of skin cancer CHF (congestive heart failure) Fibromyalgia Tobacco use Home Medications ?Medication ?Instructions ?Recorded ?Last Taken ?Type clonazepam 1 mg tablet 1 mg PO QHS anxiety 10/18/16 Unknown History multivitamin,xz-spdm-[id number] 27 1 tab PO DAILY supplement 10/18/16 Unknown History mg-0.4 mg tablet buspirone 15 mg tablet 15 mg PO BID mood 10/09/23 Unknown History cyclobenzaprine 10 mg tablet 10 mg PO BID muscle spasm 10/09/23 Unknown History olanzapine 15 mg tablet 15 mg PO QHS mood 10/09/23 Unknown History duloxetine 30 mg capsule,delayed 30 mg PO QDAY mood 10/29/23 Unknown History release duloxetine 60 mg capsule,delayed 60 mg PO QDAY mood 10/29/23 Unknown History release losartan 50 mg tablet 50 mg PO QDAY bp 10/29/23 Unknown History potassium chloride 20 mEq 20 meq PO TID supplement 10/29/23 Unknown History tablet,extended release(part/cryst) albuterol sulfate 90 mcg/actuation 2 puff inhalation Q6H PRN 05/04/24 Unknown Rx aerosol inhaler shortness of breath or wheezing #18 grams meclizine 25 mg tablet 50 mg PO BID vertigo 07/02/24 Unknown History fluticasone fur. 200 mcg-umeclid 1 inh inhalation DAILY sob #60 ea 11/22/24 Unknown Rx 62.5 mcg-vilant 25 mcg inhalat.powder (Trelegy Ellipta) Allergy/AdvReac Type Severity Reaction Status Date / Time codeine Allergy Unknown Verified 05/16/25 13:56 ciprofloxacin (From Cipro) AdvReac Vomiting Verified 05/16/25 13:56 Family History Sister Diabetes Brother Diabetes Heart disease Father Heart disease Surgical History History of left hip replacement Hx of hysterectomy History of carpal tunnel release of both wrists Social History household members: none Smoking Status: Current every day smoker tobacco type: cigarettes and e-cigarettes Tobacco: How many years used: 40 Electronic Cigarette Use: with nicotine how long ago did patient quit smokin quit smoking cigarettes, 1ppd vaping currently second hand exposure: Yes Prior Cardiac Testing/Procedures Prior Cardiac Testing/Procedures: Echocardiogram (60% Diastolic dysfunction ) Review of Systems (Anesthesia) ROS Narrative System reviewed and no additional complaints, except as documented. Physical Exam Const alert, oriented x3 and average body habitus Resp normal respiratory effort and normal air movement Auscultation: clear to auscultation bilaterally Cardio regular rate and regular rhythm Neuro oriented x3 and moves all extremities
--- NOTE | 2025-05-18 12:46 | RAD_ITS ---
PROCEDURE: ERCP BILIARY/PANCREAS; O.R. FLUORO FOR C-ARM 05/18/2025 REASON FOR EXAM: ERCP TECHNIQUE: Procedure Code: RADERCP; RADORFL_C_ARM Modality: DX Procedure: ERCP BILIARY/PANCREAS; O.R. FLUORO FOR C-ARM Fluoroscopy time: 70.5 seconds. Dose: 13.06 mGy. RAD/O.R. Fluoro for C-Arm IMPRESSION: Fluoroscopy was performed for ERCP. 9 spot images were also obtained. Reading Location: [id number]
--- NOTE | 2025-05-18 12:46 | RAD_ITS ---
PROCEDURE: ERCP BILIARY/PANCREAS; O.R. FLUORO FOR C-ARM 05/18/2025 REASON FOR EXAM: ERCP TECHNIQUE: Procedure Code: RADERCP; RADORFL_C_ARM Modality: DX Procedure: ERCP BILIARY/PANCREAS; O.R. FLUORO FOR C-ARM Fluoroscopy time: 70.5 seconds. Dose: 13.06 mGy. RAD/ERCP Biliary/Pancreas IMPRESSION: Fluoroscopy was performed for ERCP. 9 spot images were also obtained. Reading Location: [id number]
[2025-05-18] MEDS: Lactated Ringers 1,000 ML 15 ML IV (12:53)
--- NOTE | 2025-05-18 13:40 | OP.PROVAT_ITS ---
05/18/2025 Alton Mallory [address] [facility] [place] [address] [place] [address] Re : ERCP procedure for Nora Adal Dear Dr. Mallory This procedure was performed on Sunday, May 18, 2025. My impressions and recommendations are as follows: Impressions : - A single localized biliary stricture was found in the lower third of the main bile duct. The stricture was benign appearing, fibrotic and indeterminate. - The entire main bile duct was dilated, acquired. - Choledocholithiasis was found. Complete removal was accomplished by biliary sphincterotomy and balloon extraction. - One temporary stent was placed into the ventral pancreatic duct. - A biliary sphincterotomy was performed. - The biliary tree was swept. - Cells for cytology obtained in the lower third of the main duct. Recommendations : My findings are described in the full procedure note, which is enclosed. If I can be of further assistance, please feel free to contact me at . Sincerely, Connor Tadeo, 05/18/2025 1:40:34 PM This report has been signed electronically.
--- NOTE | 2025-05-18 13:40 | OP.ERCP_ITS ---
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 Refer to note in patient chart for documentation of history and physical. Patient has symptoms of acute right upper quadrant abdominal pain. This patient has no history of previous ERCP. This patient has no history of surgical alteration of the upper digestive tract anatomy. Complications: No immediate complications. Procedure: Pre-Anesthesia Assessment: - Prior to the procedure, a History and Physical was performed, and patient medications and allergies were reviewed. The patient is competent. The risks and benefits of the procedure and the sedation options and risks were discussed with the patient. All questions were answered and informed consent was obtained. Patient identification and proposed procedure were verified by the physician in the pre-procedure area. Mental Status Examination: normal. Prophylactic Antibiotics: The patient does not require prophylactic antibiotics. Prior Anticoagulants: The patient has taken no anticoagulant or antiplatelet agents except for NSAID medication. ASA Grade Assessment: III - A patient with severe systemic disease. After reviewing the risks and benefits, the patient was deemed in satisfactory condition to undergo the procedure. The anesthesia plan was to use monitored anesthesia care (MAC). Immediately prior to administration of medications, the patient was re-assessed for adequacy to receive sedatives. The heart rate, respiratory rate, oxygen saturations, blood pressure, adequacy of pulmonary ventilation, and response to care were monitored throughout the procedure. The physical status of the patient was re-assessed after the procedure. After obtaining informed consent, the scope was passed under direct vision. Throughout the procedure, the patient's blood pressure, pulse, and oxygen saturations were monitored continuously. The Duodenoscope was introduced through the mouth, and advanced to the duodenum and used to inject contrast into the bile duct and ventral pancreatic duct. The ERCP was accomplished without difficulty. The patient tolerated the procedure well. Scope In: 1:08:06 PM Scope Out: 1:34:19 PM Total Procedure Duration Time 0 hours 26 minutes 13 seconds Findings: The floor tiling professional film was normal. The esophagus was successfully intubated under direct vision. The scope was advanced to a normal major papilla in the descending duodenum without detailed examination of the pharynx, larynx and associated structures, and upper GI tract. The upper GI tract was grossly normal. The ventral pancreatic duct was deeply cannulated with the short-nosed traction sphincterotome. Contrast was injected. I personally interpreted the bile duct and pancreatic duct images. There was appropriate flow of contrast through the ducts. Image quality was adequate. Contrast extended to the hepatic ducts. Contrast extended to the entire biliary tree. Contrast extended to the pancreatic duct. Opacification of the entire pancreatic ductal system was successful. The maximum diameter of the ducts was 4 mm. A long 0.025 inch Jagwire was passed into the ventral pancreatic duct. One 5 Fr by 7 cm temporary stent was placed 5 cm into the ventral pancreatic duct. Clear fluid flowed through the stent. The stent was in good position. The bile duct was deeply cannulated with the short-nosed traction sphincterotome. Contrast was injected. Opacification of the entire biliary tree was successful. The maximum diameter of the ducts was 10 mm. The lower third of the main bile duct contained a single localized stenosis 6 mm in length. The main bile duct was diffusely dilated, acquired. The largest diameter was 10 mm. A long 0.025 inch Jagwire was passed into the biliary tree. A 5 mm biliary sphincterotomy was made with a traction (standard) sphincterotome using ERBE electrocautery. There was no post-sphincterotomy bleeding. The biliary tree was swept with a 12 mm balloon starting at the bifurcation. Sludge was swept from the duct. All stones were removed. Cells for cytology were obtained by brushing in the lower third of the main bile duct. Impression: - A single localized biliary stricture was found in the lower third of the main bile duct. The stricture was benign appearing, fibrotic and indeterminate. - The entire main bile duct was dilated, acquired. - Choledocholithiasis was found. Complete removal was accomplished by biliary sphincterotomy and balloon extraction. - One temporary stent was placed into the ventral pancreatic duct. - A biliary sphincterotomy was performed. - The biliary tree was swept. - Cells for cytology obtained in the lower third of the main duct. Procedure Code(s): --- Professional --- 53715, Endoscopic retrograde cholangiopancreatography (ERCP); with placement of endoscopic stent into biliary or pancreatic duct, including pre- and post-dilation and guide wire passage, when performed, including sphincterotomy, when performed, each stent 40444, 51, Endoscopic retrograde cholangiopancreatography (ERCP); with removal of calculi/debris from biliary/pancreatic duct(s) 37543, 59, Endoscopic retrograde cholangiopancreatography (ERCP); with sphincterotomy/papillotomy 58238, 26, Combined endoscopic catheterization of the biliary and pancreatic ductal systems, radiological supervision and interpretation CPT copyright 2021 [employer]. All rights reserved. The codes documented in this report are preliminary and upon environmental emergencies assistant review may be revised to meet current compliance requirements. Connor Tadeo DO 05/18/2025 1:40:34 PM This report has been signed electronically. Number of Addenda: 0 Note Initiated On: 05/18/2025 12:38 PM
--- NOTE | 2025-05-18 14:05 | PCM.POST.ANE ---
Anesthesia: Postop Eval I Current Vital Signs Temperature: 98.7 F Pulse Rate: 88 Blood Pressure: 127/79 Respiratory Rate: 16 Pulse Ox: 97 Oxygen Delivery Method: Room Air Assessment Airway patent: Yes Spontaneous unlabored respirations: Yes Mental status: Asleep nausea: No Vomiting: No Anesthesia Complication: No Fluid Hydration Crystalloid volume administer (ml): 400 Total IV fluid infused: 400 Progress Note Anesthesia document: Postop Eval 1 completed: Yes
--- NOTE | 2025-05-18 15:13 | PCM.POSTANE2 ---
Anesthesia Postop Eval I Sum Postop Eval Completion status Anesthesia document: Postop Eval 1 completed: Yes Anesthesia Postop Eval I Summary Anesthesia Postop Eval I Summary: Anesthesia Postop Eval I: Assessment Summary Airway patent Yes 05/18/25 14:06 [email or web address] Spontaneous unlabored Yes 05/18/25 14:06 [email or web address] respirations Mental status Asleep 05/18/25 14:06 [email or web address] nausea No 05/18/25 14:06 [email or web address] Vomiting No 05/18/25 14:06 [email or web address] Anesthesia Postop Eval I: Fluid Summary Crystalloid volume administer 400 05/18/25 14:06 [email or web address] (ml) Colloids volume administered ( ml) Blood Product volume administered (ml) Total IV fluid infused 400 05/18/25 14:06 [email or web address] Anesthesia Postop Eval I: Summary Notes Anesthesia Complication No 05/18/25 14:06 [email or web address] Anesthesia Complication Comment: Post-operative progress note Anesthesia: Postop Eval II Evaluation Mental status: Awake and Calm Pain Level: 0 nausea: No Vomiting: No Complications Anesthesia Complication: No
--- NOTE | 2025-05-18 16:00 | FLU_PTH ---
PATIENT: DEZ GRANDE LOC: MS3 U#:[id number] AGE/SX: 70/F ROOM: [facility] [place] RE05/16/[address]: Dr. Yordan Newman MD : 1955 BED: 1 DIS: 05/19/2025 SPEC #: [id number] RECD: 05/19/25 09:44 STATUS: REI REQ #: [id number] BANDAR: 05/18/25 16:[address]: Yordan Newman DEPT: CYTOLOGY RECD BY: Alessandra Boyce ENTERED: 05/19/25 09:46 SP TYPE: Fluid OTHR DR: DO Dr. Jaylen Pennington MD Dr. Prakash Chand, MD Dr. Paul Nielsen, MD Dr. Rahsaan Friend, DO Heather Evans, NP-C [facility] GREGOR Hernandez Tissues: Bile duct, NOS Procedures: Special Stain Group II Surgery Specimen Level IV Cytospin Fluid Cytology Other HEADER OPERATION: ERCP PRE-OP DIAGNOSIS: Cholelithiasis TISSUE SUBMITTED: A- Distal brush tip and brushings DIAGNOSIS CYTOLOGY A. Distal brushing and brush tip, ERCP (cytospin, cellblock, smear x3): * No malignant cells identified. CYTOLOGY STUDY Slides are reviewed. CYTOLOGY GROSS A. Received is 1 brush with 0.2 ml of braswell-cloudy fluid and 3 smears labeled with the patient's name and and designated per the requisition as Distal brushings and brush tip. Submitted for cytology and cell block preparation. 05/19/2025 CPT: 26954,87476,48482
[2025-05-18] MEDS: Budesonide Respules 0.5 MG/2 ML AMPUL.NEB. INHALATION (20:18)
[2025-05-18] MEDS: OLANZapine 5 MG/TAB TAB.RAPDIS 15 MG PO (21:20)
[2025-05-19 02:43] VITALS: BP 145/84; PULSE 66; RESP 18; TEMP 36.6; O2SAT 94
[2025-05-19] MEDS: 0.9% Saline Lock 10 ML Syringe IV (05:35)
[2025-05-19] MEDS: 0.9% Normal Saline (1000mL) 1,000 ML 125 ML IV (05:35)
[2025-05-19 06:03] LABS: Hematocrit 37.1 % (37-47); Hemoglobin 12.2 g/dL (12.0-15.0); Immature Granulocytes Count 0.130 X10^3/uL (0.0-0.0); Mean Corp Hgb Conc 32.9 g/dL (32-36); Mean Corpuscular Volume 90.0 fL (81-99); Mean Platelet Vol. 10.8 fl (6.2-12.0); NRBC Flagged by Analyzer 0 % (0-5); Platelet Count 318 K/mm3 (150-450); RBC Distribution Width CV 14.1 % (11.6-14.6); RBC Distribution Width SD 46.6 fl (35.1-43.9); Red Blood Count 4.12 M/mm3 (4.2-5.4); White Blood Count 8.7 K/mm3 (4.4-11.0)
[2025-05-19 06:23] VITALS: BP 135/75; PULSE 78; RESP 16; TEMP 36.6; O2SAT 98
[2025-05-19 06:46] LABS: Magnesium 2.3 mg/dL (1.5-2.2)
[2025-05-19 06:57] LABS: AST(SGOT) 16 U/L (<=31); Alanine Aminotransfer ALT/SGPT 12 U/L (<=34); Albumin, Serum 3.1 g/dL (3.4-4.8); Alkaline Phosphatase 59 U/L (35-104); Anion Gap 11 (5-15); BUN 9 mg/dL (4-19); BUN/Creat Ratio 8.7 RATIO (10-20); Bilirubin, Direct 0.11 mg/dL (0.00-0.30); Calcium,Total 8.5 mg/dL (7.6-11.0); Carbon Dioxide 19.1 mmol/L (21.0-32.0); Chloride 109 mmol/L (98-108); Estimated Creatinine Clearance 46.06 ml/min (50-250); Globulin 2.5 g/dL (2.2-4.2); Glucose 201 mg/dL (70-99); Potassium 4.1 mmol/L (3.3-5.1)
[2025-05-19] MEDS: Budesonide Respules 0.5 MG/2 ML AMPUL.NEB. INHALATION (07:55)
[2025-05-19 07:57] VITALS: RESP 18
--- NOTE | 2025-05-19 10:04 | PN.HOSP_ITS ---
Reason for Visit Chief Complaint: Abdominal pain Subjective Subjective Patient seen underwent ERCP the day prior findings and recommendation as below. Patient seen still complains of being constipated Objective Data Objective Data Vital Signs: Vital Signs Temp Pulse Resp BP Pulse Ox O2 Del Method 98 F 78 18 135/75 H 98 Room Air 05/19/25 06:23 05/19/25 06:23 05/19/25 07:57 05/19/25 06:23 05/19/25 06:23 05/19/25 07:57 Oxygen Delivery Method Room Air Weight: 64.2 kg Body Mass Index (BMI) 25.9 Intake & Output: Intake and Output for Last 24 Hours 05/17/25 05/18/25 05/19/25 23:59 23:59 23:59 Intake Total 3441.67 / 3441.67 2527.25 / 2527.25 1125 / 1125 Output Total 2 / 2 Balance 3441.67 / 3441.67 2525.25 / 2525.25 1125 / 1125 Lab / Micro Data 05/19/25 05:21 05/19/25 05:21 Labs: Laboratory Results - last 24 hr 05/18/25 09:40: Urine Test Cancelled 05/19/25 05:21: WBC 8.7, RBC 4.12 L, Hgb 12.2, Hct 37.1, MCV 90.0, MCH 29.6, MCHC 32.9, RDW Std Deviation 46.6 H, RDW Coeff of Nikolas 14.1, Plt Count 318, MPV 10.8, Immature Gran % (Auto) 1.500 H, Neut % (Auto) 65.2, Lymph % (Auto) 17.3 L, Gooding % (Auto) 14.9 H, Eos % (Auto) 0.6, Baso % (Auto) 0.5, Absolute Neuts (auto) 5.7, Absolute Lymphs (auto) 1.50, Nucleated RBC % 0, Sodium 139, Potassium 4.1, Chloride 109 H, Carbon Dioxide 19.1 L, Anion Gap 11, BUN 9, Creatinine 1.00, E stim Creat Clear Calc 46.06 L, Est GFR (MDRD) Non-Af 61, BUN/Creatinine Ratio 8.7 L, Glucose 201 H, Calcium 8.5, Phosphorus 3.0, Magnesium 2.3 H, Total Bilirubin 0.30, Direct Bilirubin 0.11, AST 16, ALT 12, Alkaline Phosphatase 59, Total Protein 5.6 L, Albumin 3.1 L, Globulin 2.5 Micro: Microbiology 05/16/25 15:40 Stool Stool Occult Blood (MARVIN) - Final Occult Blood Positive Radiography Diagnostic Testing: Radiology Impression C-Arm Fluoroscopy 05/18/25 12:46 IMPRESSION: Fluoroscopy was performed for ERCP. 9 spot images were also obtained. Reading Location: [address] Endo Retro Cholangiopancreatogram 05/18/25 12:46 IMPRESSION: Fluoroscopy was performed for ERCP. 9 spot images were also obtained. Reading Location: [address] Physical Exam Narrative GENERAL: cooperative HEENT: Atraumatic; normocephalic EYES; Anicteric, Normal Conjunctiva NECK; supple, normal thyroid, RESPIRATORY: Diminished to auscultation CARDIOVASCULAR: Regular S1 S2, GI: soft, normoactive bowel sounds, : No Renal angle tenderness; EXTREMITIES: No edema, no clubbing, MUSCULOSKELETAL: no muscle wasting NEURO: Awake; no lateralizing signs. SKIN: No Rash PSYCH; Flat affect Assessment & Plan Assessment/Plan (1) Cholelithiases: PLAN: Plan Patient is a 70-year-old female who presented with abdominal pain. Ultrasound of the gallbladder demonstrated cholelithiasis with no evidence of acute cholecystitis 1. Abdominal pain ? Secondary to cholelithiasis. Ultrasound of the gallbladder did show Mild intra and extrahepatic biliary ductal dilatation, and prominence of the main pancreatic duct. No discrete obstructing mass or choledocholithiasis appreciated. Admitted to regular nursing floor for symptom management consult placed to GI patient seen by Dr. Tadeo and is for patient to undergo ERCP ? 05/19/2025; patient underwent ERCP the day prior findings and procedures performed as below Impressions : - A single localized biliary stricture was found in the lower third of the main bile duct. The stricture was benign appearing, fibrotic and indeterminate. - The entire main bile duct was dilated, acquired. - Choledocholithiasis was found. Complete removal was accomplished by biliary sphincterotomy and balloon extraction. - One temporary stent was placed into the ventral pancreatic duct. - A biliary sphincterotomy was performed. - The biliary tree was swept. - Cells for cytology obtained in the lower third of the main duct. 2. Hypertension ? Blood pressure controlled, home medications continued with dose adjustment as needed 3. Depression with anxiety ? Patient is on duloxetine, olanzapine as well as clonazepam 4. Tobacco dependence ? Counseled on cessation, offered nicotine patch for tobacco cravings 5. COPD ? Currently not in exacerbation aerosol treatments as needed 6. Obstructive sleep apnea ? Consistent use of PAP therapy encouraged 7 DVT prophylaxis ? Subcu Lovenox Time spent in the patient's overall evaluation,decision-making process, review of diagnostic data, adjustment of management, discussion with other providers, nursing nursing and ancillary staff involved in patient's care documentation, 35 Minutes Charges/Coding Visit Charges Inpatient E&M: 00673 [facility] Hosp L2
[2025-05-19 10:40] VITALS: BP 115/67; PULSE 85; RESP 16; TEMP 36.7; O2SAT 96
[2025-05-19] MEDS: Senna/Docusate Sodium 1 Tablet 2 TABLET PO (10:54)
[2025-05-19] MEDS: Magnesium Citrate 300 ML PO (10:56)
[2025-05-19 13:15] VITALS: RESP 16
--- NOTE | 2025-05-19 15:10 | PCM.DC.SUM ---
Providers Date of Admission: 05/16/25 Date of Discharge: 05/19/25 Primary Care Physician: Dr. Alton Mallory, DO Consultations 05/16/25 22:04 Consult: Gastroenterology Routine Consulting Provider: [facility] Reason for Consult: Cholelithiasis EMERGENT Consult: Yes Notified: Yes Date Notified: 05/16/25 Time Notified: 20:33 Method of Notification: ED Physician Initiated Reason For Visit: CHOLELITHIASIS Diagnosis Discharge Diagnosis (1) Cholelithiases: Status: Acute Code(s): K80.20 - Calculus of gallbladder without cholecystitis without obstruction Plan Patient is a 70-year-old female who presented with abdominal pain. Ultrasound of the gallbladder demonstrated cholelithiasis with no evidence of acute cholecystitis 1. Abdominal pain ? Secondary to cholelithiasis. Ultrasound of the gallbladder did show Mild intra and extrahepatic biliary ductal dilatation, and prominence of the main pancreatic duct. No discrete obstructing mass or choledocholithiasis appreciated. Admitted to regular nursing floor for symptom management consult placed to GI patient seen by Dr. Tadeo and is for patient to undergo ERCP ? 05/19/2025; patient underwent ERCP the day prior findings and procedures performed as below Impressions : - A single localized biliary stricture was found in the lower third of the main bile duct. The stricture was benign appearing, fibrotic and indeterminate. - The entire main bile duct was dilated, acquired. - Choledocholithiasis was found. Complete removal was accomplished by biliary sphincterotomy and balloon extraction. - One temporary stent was placed into the ventral pancreatic duct. - A biliary sphincterotomy was performed. - The biliary tree was swept. - Cells for cytology obtained in the lower third of the main duct. 2. Hypertension ? Blood pressure controlled, home medications continued with dose adjustment as needed 3. Depression with anxiety ? Patient is on duloxetine, olanzapine as well as clonazepam 4. Tobacco dependence ? Counseled on cessation, offered nicotine patch for tobacco cravings 5. COPD ? Currently not in exacerbation aerosol treatments as needed 6. Obstructive sleep apnea ? Consistent use of PAP therapy encouraged 7 DVT prophylaxis ? Subcu Lovenox Time spent in the patient's overall evaluation,decision-making process, review of diagnostic data, adjustment of management, discussion with other providers, nursing nursing and ancillary staff involved in patient's care documentation, 35 Minutes Medications at Discharge Home Medications clonazepam 1 mg tablet 1 mg PO QHS anxiety 10/18/16 multivitamin,kx-psfg-kwnobcxl 27 mg-0.4 mg tablet 1 tab PO DAILY supplement 10/18/16 buspirone 15 mg tablet 15 mg PO BID mood 10/09/23 cyclobenzaprine 10 mg tablet 10 mg PO BID muscle spasm 10/09/23 olanzapine 15 mg tablet 15 mg PO QHS mood 10/09/23 duloxetine 30 mg capsule,delayed release 30 mg PO QDAY mood 10/29/23 duloxetine 60 mg capsule,delayed release 60 mg PO QDAY mood 10/29/23 losartan 50 mg tablet 50 mg PO QDAY bp 10/29/23 potassium chloride 20 mEq tablet,extended release(part/cryst) 20 meq PO TID supplement 10/29/23 albuterol sulfate 90 mcg/actuation aerosol inhaler 2 puff inhalation Q6H PRN shortness of breath or wheezing #18 grams 05/04/24 meclizine 25 mg tablet 50 mg PO BID vertigo 07/02/24 fluticasone fur. 200 mcg-umeclid 62.5 mcg-vilant 25 mcg inhalat.powder (Trelegy Ellipta) 1 inh inhalation DAILY sob #60 ea 11/22/24 sennosides 8.6 mg-docusate sodium 50 mg tablet (Stimulant Laxative Plus) 1 tab PO DAILY #30 tabs 05/19/25 Physical Exam Narrative GENERAL: cooperative HEENT: Atraumatic; normocephalic EYES; Anicteric, Normal Conjunctiva NECK; supple, normal thyroid, RESPIRATORY: Diminished to auscultation CARDIOVASCULAR: Regular S1 S2, GI: soft, normoactive bowel sounds, : No Renal angle tenderness; EXTREMITIES: No edema, no clubbing, MUSCULOSKELETAL: no muscle wasting NEURO: Awake; no lateralizing signs. SKIN: No Rash PSYCH; Flat affect Weight / BMI Weight Weight: 64.2 kg Body Mass Index (BMI) 25.9 ABG / Lab / Microbiology Data 05/19/25 05:21 05/19/25 05:21 Laboratory: Laboratory Results - last 24 hr 05/18/25 09:40: Urine Test Cancelled 05/19/25 05:21: WBC 8.7, RBC 4.12 L, Hgb 12.2, Hct 37.1, MCV 90.0, MCH 29.6, MCHC 32.9, RDW Std Deviation 46.6 H, RDW Coeff of Nikolas 14.1, Plt Count 318, MPV 10.8, Immature Gran % (Auto) 1.500 H, Neut % (Auto) 65.2, Lymph % (Auto) 17.3 L, Leon % (Auto) 14.9 H, Eos % (Auto) 0.6, Baso % (Auto) 0.5, Absolute Neuts (auto) 5.7, Absolute Lymphs (auto) 1.50, Nucleated RBC % 0, Sodium 139, Potassium 4.1, Chloride 109 H, Carbon Dioxide 19.1 L, Anion Gap 11, BUN 9, Creatinine 1.00, Estim Creat Clear Calc 46.06 L, Est GFR (MDRD) Non-Af 61, BUN/Creatinine Ratio 8.7 L, Glucose 201 H, Calcium 8.5, Phosphorus 3.0, Magnesium 2.3 H, Total Bilirubin 0.30, Direct Bilirubin 0.11, AST 16, ALT 12, Alkaline Phosphatase 59, Total Protein 5.6 L, Albumin 3.1 L, Globulin 2.5 Microbiology: Microbiology 05/16/25 15:40 Stool Stool Occult Blood (MARVIN) - Final Occult Blood Positive D/C Instructions Discharge Activity: Return to Normal Activity Call your doctor if you observe: Fever of 101 or Higher, Shortness of breath, Fainting spells and Chest pain DC O2, CPAP, BIPAP Needs Home O2 Discharge instructions: No Meaningful Use Info Meaningful Use Meaningful Use Diagnoses (Choose all that apply): None applicable Discharge Plan Admission Admit Date/Time: 05/16/25 20:26 Attending Provider: Yordan Newman Primary Care Provider: Alton Mallory Consulting Providers: Danilo Salvador; Connor Tadeo; Christina Mendez; Rebecca Singh; Kassi Fish; Zachary Coffey; Jaylen Mike Discharge Orders/Prescriptions Prescriptions: New sennosides-docusate sodium [Stimulant Laxative Plus] 8.6-50 mg Tablet 1 tab PO DAILY Qty: 30 0RF Continued buspirone 15 mg tablet 15 mg PO BID Patient Comments: TAKE 1 TABLET BY MOUTH TWICE DAILY olanzapine 15 mg tablet 15 mg PO QHS Patient Comments: TAKE 1 TABLET BY MOUTH AT BEDTIME cyclobenzaprine 10 mg tablet 10 mg PO BID Patient Comments: TAKE 1 TABLET BY MOUTH TWICE DAILY losartan 50 mg tablet 50 mg PO QDAY potassium chloride 20 mEq tablet,ER particles/crystals 20 meq PO TID duloxetine 30 mg capsule,delayed release(DR/EC) 30 mg PO QDAY duloxetine 60 mg capsule,delayed release(DR/EC) 60 mg PO QDAY meclizine 25 mg tablet 50 mg PO BID clonazepam 1 MG tablet 1 mg PO QHS multivitamin,rb-rguf-vichjann 1 TABLET tablet 1 tab PO DAILY albuterol sulfate 90 mcg/actuation HFA aerosol inhaler 2 puff INHALATION Q6H PRN (Reason: shortness of breath or wheezing) Qty: 18 11RF Trelegy Ellipta 200-62.5-25 mcg blister with device 1 inh inhalation DAILY Qty: 60 11RF Referrals / Follow Up: Alton Mallory DO [Primary Care Provider, Family Practice] - Within 1 Week Connor Tadeo DO [Med Staff - Active Staff, Gastroenterology] - Within 2 Weeks Disposition Disposition (needs filled in before D/C Order can be placed): Home, Self Care Charges/Coding Visit Charges Inpatient E&M: 02994 Disch Hosp >30min
[2025-05-19 15:53] VITALS: BP 144/90; PULSE 82; RESP 16; TEMP 36.7; O2SAT 100
== END 2025-05-19 16:20 | disposition home or self-care (01) | DRG 445 ==
LOC: ED 20:32 → MS3 21:25
PROVIDERS: Internal Medicine Gastroenterology; Admitting Provider Family Medicine; Emergency Provider Student in an Organized Health Care Education/Training Program; PCP Family Medicine; Visit Provider Internal Medicine
PROC: 0FC98ZZ Extirpation of Matter from Common Bile Duct, Via Natural or Artificial Opening Endoscopic (ICD-10-PCS; CPT 43260; principal; 2025-05-18 15:40)
DX: K80.70 Calculus of gallbladder and bile duct without cholecystitis without obstruction (principal); K92.1 Melena; F17.210 Nicotine dependence, cigarettes, uncomplicated; I11.0 Hypertensive heart disease with heart failure; I50.9 Heart failure, unspecified; J44.9 Chronic obstructive pulmonary disease, unspecified; F32.9 Major depressive disorder, single episode, unspecified; G47.33 Obstructive sleep apnea (adult) (pediatric); M79.7 Fibromyalgia; F41.9 Anxiety disorder, unspecified; F17.290 Nicotine dependence, other tobacco product, uncomplicated; K59.09 Other constipation; F32.A Depression, unspecified; Z71.6 Tobacco abuse counseling; Z23 Encounter for immunization; Z79.51 Long term (current) use of inhaled steroids; Z79.899 Other long term (current) drug therapy
CPT/HCPCS: 36415; 74177; 74181; 74330; 76000; 76705; 80048; 80053; 80076; 81001; 82274; 83690; 83735; 84100; 85025; 88108; 88161; 88305; 88313; 93005; 94640; 99284; C2625; Q9967; A4216; J2405

== ENCOUNTER → 2025-06-02 | Outpatient (CLI) | payer MEDICARE, MEDICAID, SELFPAY ==
--- NOTE | 2025-06-02 16:44 | CT_ITS ---
PROCEDURE: LOW DOSE CT LUNG SCREENING 06/02/2025 REASON FOR EXAM: SMOKER TECHNIQUE: Procedure Code: CTLUNGSCREEN Modality: CT Procedure: LOW DOSE CT LUNG SCREENING Coronal and Sagittal reconstruction series were provided. One or more dose reduction techniques were used (e.g., Automated exposure control, adjustment of the mA and/or kV according to patient size, use of iterative reconstruction technique). REFERENCE LINK: [employer] Lung-RADS RADIATION DOSE SUMMARY: CTDlvol: 3.02 mGy DLP: 102.32 mGycm COMPARISON: Low-dose lung screen, 10/15/2023 FINDINGS: PULMONARY NODULES: (Only nodules >3mm are reported) Lower neck:The thyroid gland is normal. There is no supraclavicular lymphadenopathy. Mediastinum:No abnormal masses or lymphadenopathy. Heart and Vasculature:The heart size is normal. There is a moderate stable pericardial effusion. There is mild calcific vascular disease of the coronary arteries. Esophagus:Normal. Upper Abdomen:There is calcific vascular disease in the visualized abdominal aorta. The spleen is surgically absent. 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 Chest wall:The soft tissues of the chest wall appear unremarkable. There is no axillary lymphadenopathy. Lungs, airways and pleura: There is moderate upper lobe predominant centrilobular emphysema. There is stable pleural-parenchymal scarring in the middle lobe of the right lung in the inferior segment of the lingula. CT/Low Dose CT Lung Screening IMPRESSION: 1. Emphysema. 2. No pulmonary nodules. 3. Calcific vascular disease. 4. Other findings as noted, not significantly changed. Lung-RADS Category: 1 S: Negative. Emphysema. Calcific vascular disease. Recommendation: Follow up low-dose chest CT in 12 months. Reading Location: [place] [id number]
--- NOTE | 2025-06-02 16:44 | CT_ITS ---
PROCEDURE: LOW DOSE CT LUNG SCREENING 06/02/2025 REASON FOR EXAM: SMOKER TECHNIQUE: Procedure Code: CTLUNGSCREEN Modality: CT Procedure: LOW DOSE CT LUNG SCREENING Coronal and Sagittal reconstruction series were provided. One or more dose reduction techniques were used (e.g., Automated exposure control, adjustment of the mA and/or kV according to patient size, use of iterative reconstruction technique). REFERENCE LINK: [employer] Lung-RADS RADIATION DOSE SUMMARY: CTDlvol: 3.02 mGy DLP: 102.32 mGycm COMPARISON: Low-dose lung screen, 10/15/2023 FINDINGS: PULMONARY NODULES: (Only nodules >3mm are reported) Lower neck:The thyroid gland is normal. There is no supraclavicular lymphadenopathy. Mediastinum:No abnormal masses or lymphadenopathy. Heart and Vasculature:The heart size is normal. There is a moderate stable pericardial effusion. There is mild calcific vascular disease of the coronary arteries. Esophagus:Normal. Upper Abdomen:There is calcific vascular disease in the visualized abdominal aorta. The spleen is surgically absent. 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 Chest wall:The soft tissues of the chest wall appear unremarkable. There is no axillary lymphadenopathy. Lungs, airways and pleura: There is moderate upper lobe predominant centrilobular emphysema. There is stable pleural-parenchymal scarring in the middle lobe of the right lung in the inferior segment of the lingula. CT/Low Dose CT Lung Screening IMPRESSION: 1. Emphysema. 2. No pulmonary nodules. 3. Calcific vascular disease. 4. Other findings as noted, not significantly changed. Lung-RADS Category: 1 S: Negative. Emphysema. Calcific vascular disease. Recommendation: Follow up low-dose chest CT in 12 months. Reading Location: [place] [address]
--- OUTSIDE RECORDS SUMMARY | 2025-06-02 17:00 | XMS RPT_ITS | CCD ---
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 sources) Left pneumothorax; Translations: [Pneumothorax, unspecified] 12-25-2020 Episodic Residual codes; unclassified (5 sources) Obstructive sleep apnea (adult) (pediatric); Translations: [Obstructive sleep apnea (adult)(pediatric)] Onset: 05-24-2025 10-09-2023 Chronic Residual codes; unclassified (8 sources) Tobacco use and exposure - finding; Translations: [Tobacco use] 07-22-2019 Episodic Screening and history of mental health and substance abuse codes (8 sources) History of clinical finding in subject; Translations: [Personal history of other mental and behavioral disorders] 09-10-2019 Episodic Screening or history of mental health and substance abuse (1 source) Tobacco dependence syndrome; Translations: [Nicotine dependence, unspecified, uncomplicated] Onset: 08-15-2015 08-15-2015 Chronic Spondylosis; intervertebral disc disorders; other back problems (4 sources) Degeneration of lumbar intervertebral disc; Translations: [Cervical spondylosis without myelopathy] Onset: 10-13-2015 10-15-2015 Chronic Spondylosis; intervertebral disc disorders; other back problems (11 sources) Spinal stenosis, cervical region; Translations: [Radiculopathy, lumbar region] Onset: 08-04-2018 09-10-2019 Episodic Substance-related disorders (16 sources) Cigarette smoker ; Translations: [Nicotine dependence, cigarettes, uncomplicated] Onset: 11-02-2024 08-15-2020 Chronic Unclassified (11 sources) Obstructive sleep apnea syndrome; Translations: [Obstructive sleep apnea (adult) (pediatric)] Onset: 08-15-2015 08-15-2015 Chronic Past or Other Problems Problem Classification Problem Date Documented Da te Episodic/Chronic Deficiency and other anemia (1 source) Iron deficiency anemia; Translations: [Iron deficiency anemia, unspecified] Onset: 01-12-2016 01-12-2016 Episodic Other connective tissue disease (2 sources) Foot pain; Translations: [Fibromyositis] Onset: 10-13-2015 12-13-2015 Episodic Other gastrointestinal disorders (2 sources) Chronic constipation; Translations: [Abdominal bloating] Onset: 11-30-2015 11-30-2015 Episodic Other lower respiratory disease (1 source) Dyspnea; Translations: [Dyspnea, unspecified] Onset: 08-15-2015 08-15-2015 Episodic Unclassified (3 sources) Edema of lower extremity; Translations: [Peripheral edema] Onset: 10-13-2015 11-13-2015 Episodic Results Test Name Value Interpretation Reference Range Facility Gastroenterology Visit Repor [facility] 05-26-2025 Gastroenterology Visit Report [facility] Gastroenterology [address] [place] [address] OFFICE VISIT Date of Service: 05/26/25 MR#: [id number] Acct: [id number] Name: NORA GRANDE Rep #: [id number] : 1955 Provider: Connor Tadeo DO Age/Sex: 70/F Location: [facility] Status: Signed Intake Vital Signs 05/17/25 22:42 05/26/25 15:31 05/26/25 15:31 Height 5 ft 2 in BP 110/79 123/85 H Blood Pressure Location Lt brachial Lt brachial Position Sitting Standing Intake Visit Reasons: HOSP FU Cholelithiasis Allergies codeine Allergy (Verified 05/16/25 13:56) Unknown ciprofloxacin (From Cipro) Adverse Reaction (Verified 05/16/25 13:56) Vomiting Medications ???Medication ???Instructions ???Recorded ???Confirmed ???Type clonazepam 1 mg tablet 1 mg PO QHS anxiety 10/18/1605/26 History multivitamin,tx-iron-m inerals 27 1 tab PO DAILY supplement 10/18/16 05/26/25 History mg-0.4 mg tablet buspirone 15 mg tablet 15 mg PO BID mood 10/09/23 5 History cyclobenzaprine 10 mg tablet 10 mg PO BID muscle spasm 10/09/23 05/26/25 History olanzapine 15 mg tablet 15 mg PO QHS mood 10/09/23 5 History duloxetine 30 mg capsule,delayed 30 mg PO QDAY mood 10/29/23 History release duloxetine 60 mg capsule,delayed 60 mg PO QDAY mood 10/29/23 History release losartan 50 mg tablet 50 mg PO QDAY bp 10/29/23 05/26/25 History potassium chloride 20 mEq 20 meq PO TID supplement 10/29/23 05/26/25 History tablet,extended release(part/cryst) albuterol sulfate 90 mcg/actuation 2 puff inhalation Q6H PRN 05/26/25 Rx aerosol inhaler shortness of breath or wheezing #18 grams meclizine 25 mg tablet 50 mg PO BID vertigo 07/02/24 1005/12 History fluticasone fur. 200 mcg-umeclid 1 inh inhalation DAILY sob #60 ea 11/22/24 05/26/25 Rx 62.5 mcg-vilant 25 mcg inhalat.powder (Trelegy Ellipta) sennosides 8.6 mg-docusate sodium 1 tab PO DAILY #30 tabs 05/26/25 05/26/25 Rx 50 mg tablet (Stimulant Laxative Plus) Have you fallen in the past year?: No PFSH Medical History Hx of emotional problems Hormone deficiency Back problem HTN (hypertension) History of skin cancer CHF (congestive heart failure) Fibromyalgia Tobacco use Surgical History History of left hip replacement Hx of hysterectomy History of carpal tunnel release of both wrists Family History Sister Diabetes Brother Diabetes Heart disease Father Heart disease Social History household members: none Smoking Status: Current every day smoker tobacco type: cigarettes and e-cigarettes Tobacco: How many years used: 40 Electronic Cigarette Use: with nicotine how long ago did patient quit smokin quit smoking cigarettes, 1ppd vaping currently second hand exposure: Yes HPI HPI Details: NORA GRANDE, is a 70 F who presents to the office today for hospital follow up. [facility] hospitalization 05.16.25 - 05.19.25 pt presents with abdominal pain. reports constipation and dark blood in stool. abd/pelvis CT 05.16.25 Interval development of moderate right intrahepatic ductal dilatation of uncertain etiology. No definitive obstructing mass or stone in the right hepatic duct. Left biliary intrahepatic ducts normal. Cholelithiasis. No definitive choledocholithiasis. Gall Bladder US 05.16.25 Cholelithiasis. No evidence for acute cholecystitis. Mild intra and extrahepatic biliary ductal dilatation, and prominence of the main pancreatic duct. No discrete obstructing mass or choledocholithiasis appreciated. MRCP may be helpful. Mild diffuse hepatic steatosis. Small benign-appearing hepatic cysts. MRCP 05.17.25 Gall bladder calculi. No cholecystitis. Relatively prominent extra-hepatic biliary tracts with prominent pancreatic duct showing no intraluminal filling defects or pancreatic head masses, possibly age related. ERCP 05.18.25 A single localized biliary stricture was found in the lower third of the main bile duct. The stricture was benign appearing, fibrotic and indeterminate. The entire main bi le duct was dilated, acquired. Choledocholithiasis was found. Complete removal was accomplished by biliary sphincterotomy and balloon extraction. One temporary stent was placed into the ventral pancreatic duct. A biliary sphincterotomy was performed. The biliary tree was swept. Cells for cytology obtained in the lower third of the main duct. OV 05.26.25 pt reports that since hospitalization she has been feeling sick; reports nausea, lightheadedness, fatigue, tingly, and dizziness. Pt reports decreased appetite as well. * Biliary issues:???Reports no recurren (more content not included)... Normal [facility] CBC W/Diff, Automatedon 10-0 Absolute Neut Normal 2.0-7.7 [facility] Comment on above: Result Comment: Canc elled via OM: Order cancelled - Patient discharged Performed By: #### L 100.0100, L500.3400 ####[facility] [address] [place], [address] HCT Normal 37-47 [facility] Comment on above: Result Comment: Canc elled via OM: Order cancelled - Patient discharged Performed By: #### L 100.0100, L500.3400 ####[facility] [address] [place], [address] HGB Normal 12.0-15.0 [facility] Comment on above: Result Comment: Canc elled via OM: Order cancelled - Patient discharged Performed By: #### L 100.0100, L500.3400 ####[facility] [address] [place], [address] MCH Normal 27.0-32.0 [facility] Comment on above: Result Comment: Canc elled via OM: Order cancelled - Patient discharged Performed By: #### L 100.0100, L500.3400 ####[facility] [address] [place], [address] MCHC Normal 32-36 [facility] Comment on above: Result Comment: Canc elled via OM: Order cancelled - Patient discharged Performed By: #### L 100.0100, L500.3400 ####[facility] [address] [place], [address] MCV Normal 81-99 [facility] Comment on above: Result Comment: Canc elled via OM: Order cancelled - Patient discharged Performed By: #### L 100.0100, L500.3400 ####[facility] [address] [place], [address] NEUT% Normal 47-70 [facility] Comment on above: Result Comment: Canc elled via OM: Order cancelled - Patient discharged Performed By: #### L 100.0100, L500.3400 ####[facility] [address] [place], [address] PLT Normal 150-450 [facility] Comment on above: Result Comment: Canc elled via OM: Order cancelled - Patient discharged Performed By: #### L 100.0100, L500.3400 ####[facility] [address] [place], [address] RBC Normal 4.2-5.4 [facility] Comment on above: Result Comment: Canc elled via OM: Order cancelled - Patient discharged Performed By: #### L 100.0100, L500.3400 ####[facility] [address] [place], [address] RDW CV Normal 11.6-14.6 [facility] Comment on above: Result Comment: Canc elled via OM: Order cancelled - Patient discharged Performed By: #### L 100.0100, L500.3400 ####[facility] [address] [place], [address] RDW SD Normal 35.1-43.9 [facility] Comment on above: Result Comment: Canc elled via OM: Order cancelled - Patient discharged Performed By: #### L 100.0100, L500.3400 ####[facility] [address] [place], [address] WBC Normal 4.4-11.0 [facility] Comment on above: Result Comment: Canc elled via OM: Order cancelled - Patient discharged Performed By: #### L 100.0100, L500.3400 ####[facility] [address] [place], [address] Liver Profileon 05-21-2025 ALB Normal 3.4-4.8 [facility] Comment on above: Result Comment: Canc elled via OM: Order cancelled - Patient discharged Performed By: #### L 100.0100, L500.3400 ####[facility] [address] [place], [address] ALK PHOS Normal 35-104 [facility] Comment on above: Result Comment: Canc elled via OM: Order cancelled - Patient discharged Performed By: #### L 100.0100, L500.3400 ####[facility] [address] [place], [address] ALT Normal <=34 [facility] Comment on above: Result Comment: Canc elled via OM: Order cancelled - Patient discharged Performed By: #### L 100.0100, L500.3400 ####[facility] [address] [place], [address] AST Normal <=31 [facility] Comment on above: Result Comment: Canc elled via OM: Order cancelled - Patient discharged Performed By: #### L 100.0100, L500.3400 ####[facility] [address] [place], [address] D BILI Normal 0.00-0.30 [facility] Comment on above: Result Comment: Canc elled via OM: Order cancelled - Patient discharged Performed By: #### L 100.0100, L500.3400 ####[facility] [address] [place], [address] T BILI Normal 0.00-1.30 [facility] Comment on above: Result Comment: Canc elled via OM: Order cancelled - Patient discharged Performed By: #### L 100.0100, L500.3400 ####[facility] [address] [place], [address] T PROT Normal 5.9-8.4 [facility] Comment on above: Result Comment: Canc elled via OM: Order cancelled - Patient discharged Performed By: #### L 100.0100, L500.3400 ####[facility] [address] [place], [address] CBC W/Diff, Automatedon 10-0 Absolute Neut Normal 2.0-7.7 [facility] Comment on above: Result Comment: Canc elled via OM: Order cancelled - Patient discharged Performed By: #### L 100.0100, L500.3400 #### [facility] [address] [place], [address] HCT Normal 37-47 [facility] Comment on above: Result Comment: Canc elled via OM: Order cancelled - Patient discharged Performed By: #### L 100.0100, L500.3400 #### [facility] [address] [place], [address] HGB Normal 12.0-15.0 [facility] Comment on above: Result Comment: Canc elled via OM: Order cancelled - Patient discharged Performed By: #### L 100.0100, L500.3400 #### [facility] [address] [place], [address] MCH Normal 27.0-32.0 [facility] Comment on above: Result Comment: Canc elled via OM: Order cancelled - Patient discharged Performed By: #### L 100.0100, L500.3400 #### [facility] [address] [place], [address] MCHC Normal 32-36 [facility] Comment on above: Result Comment: Canc elled via OM: Order cancelled - Patient discharged Performed By: #### L 100.0100, L500.3400 #### [facility] [address] [place], [address] MCV Normal 81-99 [facility] Comment on above: Result Comment: Canc elled via OM: Order cancelled - Patient discharged Performed By: #### L 100.0100, L500.3400 #### [facility] [address] [place], [address] NEUT% Normal 47-70 [facility] Comment on above: Result Comment: Canc elled via OM: Order cancelled - Patient discharged Performed By: #### L 100.0100, L500.3400 #### [facility] [address] [place], [address] PLT Normal 150-450 [facility] Comment on above: Result Comment: Canc elled via OM: Order cancelled - Patient discharged Performed By: #### L 100.0100, L500.3400 #### [facility] [address] [place], [address] RBC Normal 4.2-5.4 [facility] Comment on above: Result Comment: Canc elled via OM: Order cancelled - Patient discharged Performed By: #### L 100.0100, L500.3400 #### [facility] [address] [place], [address] RDW CV Normal 11.6-14.6 [facility] Comment on above: Result Comment: Canc elled via OM: Order cancelled - Patient discharged Performed By: #### L 100.0100, L500.3400 #### [facility] [address] [place], [address] RDW SD Normal 35.1-43.9 [facility] Comment on above: Result Comment: Canc elled via OM: Order cancelled - Patient discharged Performed By: #### L 100.0100, L500.3400 #### [facility] [address] [place], [address] WBC Normal 4.4-11.0 [facility] Comment on above: Result Comment: Canc elled via OM: Order cancelled - Patient discharged Performed By: #### L 100.0100, L500.3400 #### [facility] [address] [place], [address] Liver Profileon 05-20-2025 ALB Normal 3.4-4.8 [facility] Comment on above: Result Comment: Canc elled via OM: Order cancelled - Patient discharged Performed By: #### L 100.0100, L500.3400 #### [facility] [address] [place], [address] ALK PHOS Normal 35-104 [facility] Comment on above: Result Comment: Canc elled via OM: Order cancelled - Patient discharged Performed By: #### L 100.0100, L500.3400 #### [facility] [address] [place], [address] ALT Normal <=34 [facility] Comment on above: Result Comment: Canc elled via OM: Order cancelled - Patient discharged Performed By: #### L 100.0100, L500.3400 #### [facility] [address] [place], [address] AST Normal <=31 [facility] Comment on above: Result Comment: Canc elled via OM: Order cancelled - Patient discharged Performed By: #### L 100.0100, L500.3400 #### [facility] [address] [place], [address] D BILI Normal 0.00-0.30 [facility] Comment on above: Result Comment: Canc elled via OM: Order cancelled - Patient discharged Performed By: #### L 100.0100, L500.3400 #### [facility] [address] [place], [address] T BILI Normal 0.00-1.30 [facility] Comment on above: Result Comment: Canc elled via OM: Order cancelled - Patient discharged Performed By: #### L 100.0100, L500.3400 #### [facility] [address] [place], [address] T PROT Normal 5.9-8.4 [facility] Comment on above: Result Comment: Canc elled via OM: Order cancelled - Patient discharged Performed By: #### L 100.0100, L500.3400 #### [facility] [address] [place], [address] Absolute lymphocyte countOrd ered By: Yordan Newman on 05-19-2025 Lymphocytes Auto (Unsp spec) [#/Vol] 1.50 10*3/uL 0.83-4.51 [facility] Absolute neutrophil countOrd ered By: Yordan Newman on 05-19-2025 Neutrophils (Bld) [#/Vol] 5.7 10*3/uL 2.0-7.7 [facility] Anion gap in Serum or Plasma Ordered By: Yordan Newman on 05-19-2025 Anion gap [Moles/Vol] 11 mmol/L 5-15 [facility] Automated lymphocyte count a s percentage of total leukocytesOrdered By: Yordan Newman on 05-19-2025 Lymphocytes/100 WBC Auto (Unsp spec) 17.3 % Low 19-41 [facility] BUN/creatinine ratioOrdered By: Yordan Newman on 05-19-2025 Urea nitrogen/Creatinine [Mass ratio] 8.7 mg/mg Low 10- [facility] Basic Metabolic Profile (BMP )on 05-19-2025 BUN/CRE 8.7 RATIO Low 10- [facility] Comment on above: Performed By: #### L 500.2500, L500.3400, L100.0100, L501.5200, L501.2300 ####[facility] [address] [place], [address] Calcium [Mass/Vol] 8.5 mg/dL Normal 7.6-11.0 [facility] Comment on above: Performed By: #### L 500.2500, L500.3400, L100.0100, L501.5200, L501.2300 ####[facility] [address] [place], [address] Chloride [Moles/Vol] 109 mmol/L High 98-108 [facility] Comment on above: Performed By: #### L 500.2500, L500.3400, L100.0100, L501.5200, L501.2300 ####[facility] [address] [place], [address] CO2 [Moles/Vol] 19.1 mmol/L Low 21.0-32.0 [facility] Comment on above: Performed By: #### L 500.2500, L500.3400, L100.0100, L501.5200, L501.2300 ####[facility] [address] [place], [address] Creatinine [Mass/Vol] 1.00 mg/dL Normal 0.70-1.20 [facility] Comment on above: Performed By: #### L 500.2500, L500.3400, L100.0100, L501.5200, L501.2300 ####[facility] [address] [place], [address] ECRCL 46.06 ml/min Low 50-250 [facility] Comment on above: Performed By: #### L 500.2500, L500.3400, L100.0100, L501.5200, L501.2300 ####[facility] [address] [place], [address] GAP 11 Normal 5-15 [facility] Comment on above: Performed By: #### L 500.2500, L500.3400, L100.0100, L501.5200, L501.2300 ####[facility] [address] [place], [address] GFR/1.73 sq M.predicted among non-blacks MDRD (S/P/Bld) [Vol rate/Area] 61 mL/min/{1.73_m2} Normal >60 [facility] Comment on above: Result Comment: mL/m in/1.73m2 CKD-EPI Creatinine Equation (2020) Performed By: #### L 500.2500, L500.3400, L100.0100, L501.5200, L501.2300 ####[facility] [address] [place], [address] Glucose [Mass/Vol] 201 mg/dL High 70-99 [facility] Comment on above: Performed By: #### L 500.2500, L500.3400, L100.0100, L501.5200, L501.2300 ####[facility] [address] [place], [address] Potassium [Moles/Vol] 4.1 mmol/L Normal 3.3-5.1 [facility] Comment on above: Performed By: #### L 500.2500, L500.3400, L100.0100, L501.5200, L501.2300 ####[facility] [address] [place], [address] Sodium [Moles/Vol] 139 mmol/L Normal 133-145 [facility] Comment on above: Performed By: #### L 500.2500, L500.3400, L100.0100, L501.5200, L501.2300 ####[facility] [address] [place], [address] Urea nitrogen [Mass/Vol] 9 mg/dL Normal 4-19 [facility] Comment on above: Performed By: #### L 500.2500, L500.3400, L100.0100, L501.5200, L501.2300 ####[facility] [address] [place], [address] Basophil percentageOrdered B y: Yordan Newman on 05-19-2025 Basophils/100 WBC (Bld) 0.5 % 0-[address] [facility] Bilirubin directOrdered By: Yordan Newman on 05-19-2025 Bilirubin.direct [Mass/Vol] 0.11 mg/dL 0.00-0.30 [facility] Bilirubin, totalOrdered By: Yordan Newman on 05-19-2025 Bilirubin [Mass/Vol] 0.30 mg/dL 0.00-1.30 [facility] CBC W/Diff, Automatedon Absolute Lymph 1.50 X10 3/uL Normal 0.83-4.51 [facility] Comment on above: Performed By: #### L 500.2500, L500.3400, L100.0100, L501.5200, L501.2300 ####[facility] [address] [place], [address] Absolute Neut 5.7 X10 3/uL Normal 2.0-7.7 [facility] Comment on above: Performed By: #### L 500.2500, L500.3400, L100.0100, L501.5200, L501.2300 ####[facility] [address] [place], [address] Basophils/100 WBC (Bld) 0.5 % Normal 0-[address] [facility] Comment on above: Performed By: #### L 500.2500, L500.3400, L100.0100, L501.5200, L501.2300 ####[facility] [address] [place], [address] Eosinophils/100 WBC (Bld) 0.6 % Normal 0-5 [facility] Comment on above: Performed By: #### L 500.2500, L500.3400, L100.0100, L501.5200, L501.2300 ####[facility] [address] [place], [address] Erythrocyte distribution width (RBC) [Ratio] 14.1 % Normal 11.6-14.6 [facility] Comment on above: Performed By: #### L 500.2500, L500.3400, L100.0100, L501.5200, L501.2300 ####[facility] [address] [place], [address] Hematocrit (Bld) [Volume fraction] 37.1 % Normal 37-47 [facility] Comment on above: Performed By: #### L 500.2500, L500.3400, L100.0100, L501.5200, L501.2300 ####[facility] [address] [place], [address] Hemoglobin (Bld) [Mass/Vol] 12.2 g/dL Normal 12.0-15.0 [facility] Comment on above: Performed By: #### L 500.2500, L500.3400, L100.0100, L501.5200, L501.2300 ####[facility] [address] [place], [address] IG% 1.500 High 0.0-0.9 [facility] Comment on above: Result Comment: IG% - Immature Granulocytes (promyelocytes, myelocytes and metamyelocytes) > 1% indicates that a LEFT SHIFT is Present. Performed By: #### L 500.2500, L500.3400, L100.0100, L501.5200, L501.2300 ####[facility] [address] [place], [address] Lymphocytes/100 WBC (Bld) 17.3 % Low 19-41 [facility] Comment on above: Performed By: #### L 500.2500, L500.3400, L100.0100, L501.5200, L501.2300 ####[facility] [address] [place], [address] MCH (RBC) [Entitic mass] 29.6 pg Normal 27.0-32.0 [facility] Comment on above: Performed By: #### L 500.2500, L500.3400, L100.0100, L501.5200, L501.2300 ####[facility] [address] [place], [address] MCHC (RBC) [Mass/Vol] 32.9 g/dL Normal 32-36 [facility] Comment on above: Performed By: #### L 500.2500, L500.3400, L100.0100, L501.5200, L501.2300 ####[facility] [address] [place], [address] MCV (RBC) [Entitic vol] 90.0 fL Normal 81-99 [facility] Comment on above: Performed By: #### L 500.2500, L500.3400, L100.0100, L501.5200, L501.2300 ####[facility] [address] [place], [address] Monocytes/100 WBC (Bld) 14.9 % High 0-10 [facility] Comment on above: Performed By: #### L 500.2500, L500.3400, L100.0100, L501.5200, L501.2300 ####[facility] [address] [place], [address] Neutrophils/100 WBC (Bld) 65.2 % Normal 47-70 [facility] Comment on above: Performed By: #### L 500.2500, L500.3400, L100.0100, L501.5200, L501.2300 ####[facility] [address] [place], [address] Nucleated RBC (Bld) [#/Vol] 0 10*3/uL Normal 0-5 [facility] Comment on above: Performed By: #### L 500.2500, L500.3400, L100.0100, L501.5200, L501.2300 ####[facility] [address] [place], [address] Platelet mean volume (Bld) [Entitic vol] 10.8 fL Normal 6.2-12.0 [facility] Comment on above: Performed By: #### L 500.2500, L500.3400, L100.0100, L501.5200, L501.2300 ####[facility] [address] [place], [address] Platelets (Bld) [#/Vol] 318 10*3/uL Normal 150-450 [facility] Comment on above: Performed By: #### L 500.2500, L500.3400, L100.0100, L501.5200, L501.2300 ####[facility] [address] [place], [address] RBC (Bld) [#/Vol] 4.12 10*6/uL Low 4.2-5.4 [facility] Comment on above: Performed By: #### L 500.2500, L500.3400, L100.0100, L501.5200, L501.2300 ####[facility] [address] [place], [address] RDW SD 46.6 fl High 35.1-43.9 [facility] Comment on above: Performed By: #### L 500.2500, L500.3400, L100.0100, L501.5200, L501.2300 ####[facility] [address] [place], [address] WBC (Bld) [#/Vol] 8.7 10*3/uL Normal 4.4-11.0 [facility] Comment on above: Performed By: #### L 500.2500, L500.3400, L100.0100, L501.5200, L501.2300 ####[facility] [address] [place], [address] Carbon dioxide, total [Moles /volume] in Central venous bloodOrdered By: Yordan Newman on 05-19-2025 CO2 [Moles/Vol] 19.1 mmol/L Low 21.0-32.0 [facility] Chloride assayOrdered By: Shantanu Newman on 05-19-2025 Chloride [Moles/Vol] 109 mmol/L High 98-108 [facility] Eosinophil percentageOrdered By: Yordan Newman on 05-19-2025 Eosinophils/100 WBC (Bld) 0.6 % 0-5 [facility] Erythrocyte distribution wid th ratioOrdered By: Yordan Newman on 05-19-2025 Erythrocyte distribution width (RBC) [Ratio] 14.1 % 11.6-14.6 [facility] Erythrocyte distribution wid th standard deviationOrdered By: Yordan Newman on 05-19-2025 Erythrocyte distribution width (RBC) [Ratio] 46.6 fl High 35.1-43.9 [facility] Glomerular filtration rate ( GFR) estimation/1.73 sq m using serum, plasma, or whole bOrdered By: Yordan Newman on 05-19-2025 GFR/1.73 sq M.predicted among non-blacks MDRD (S/P/Bld) [Vol rate/Area] 61 mL/min/{1.73_m2} >60 [facility] Comment on above: mL/min/1.73m2 CKD-EP I Creatinine Equation (2020) Hematocrit Auto (Bld) [Volum e fraction]Ordered By: Yordan Newman on 05-19-2025 Hematocrit (Bld) [Volume fraction] 37.1 % 37-47 [facility] Hemoglobin measurementOrdere d By: Yordan Newman on 05-19-2025 Hemoglobin (Bld) [Mass/Vol] 12.2 g/dL 12.0-15.0 [facility] Immature granulocytes/100 WB C Auto (Bld)Ordered By: Yordan Newman on 05-19-2025 Immature granulocytes/100 WBC (Bld) 1.500 % High 0.0-0.9 [facility] Comment on above: IG% - Immature Granu locytes (promyelocytes, myelocytes and metamyelocytes) > 1% indicates that a LEFT SHIFT is Present. Laboratory - Chemistry and C hemistry - challengeOrdered By: Yordan Newman on 05-19-2025 AST [Catalytic activity/Vol] 16 U/L <32 [facility] Liver Profileon 05-19-2025 Albumin [Mass/Vol] 3.1 g/dL Low 3.4-4.8 [facility] Comment on above: Performed By: #### L 500.2500, L500.3400, L100.0100, L501.5200, L501.2300 ####[facility] [address] [place], [address] ALK PHOS 59 U/L Normal 35-104 [facility] Comment on above: Performed By: #### L 500.2500, L500.3400, L100.0100, L501.5200, L501.2300 ####[facility] [address] [place], [address] ALT [Catalytic activity/Vol] 12 U/L Normal <=34 [facility] Comment on above: Performed By: #### L 500.2500, L500.3400, L100.0100, L501.5200, L501.2300 ####[facility] [address] [place], [address] AST [Catalytic activity/Vol] 16 U/L Normal <=31 [facility] Comment on above: Performed By: #### L 500.2500, L500.3400, L100.0100, L501.5200, L501.2300 ####[facility] [address] [place], [address] Bilirubin [Mass/Vol] 0.30 mg/dL Normal 0.00-1.30 [facility] Comment on above: Performed By: #### L 500.2500, L500.3400, L100.0100, L501.5200, L501.2300 ####[facility] [address] [place], [address] Bilirubin.direct [Mass/Vol] 0.11 mg/dL Normal 0.00-0.30 [facility] Comment on above: Performed By: #### L 500.2500, L500.3400, L100.0100, L501.5200, L501.2300 ####[facility] [address] [place], [address] Globulin (S) [Mass/Vol] 2.5 g/dL Normal 2.2-4.2 [facility] Comment on above: Performed By: #### L 500.2500, L500.3400, L100.0100, L501.5200, L501.2300 ####[facility] [address] [place], [address] T PROT 5.6 g/dL Low 5.9-8.4 [facility] Comment on above: Performed By: #### L 500.2500, L500.3400, L100.0100, L501.5200, L501.2300 ####[facility] [address] [place], [address] MCV (mean corpuscular volume ) determinationOrdered By: Yordan Newman on 05-19-2025 MCV (RBC) [Entitic vol] 90.0 fL 81-99 [facility] Magnesiumon 05-19-2025 Magnesium [Mass/Vol] 2.3 mg/dL High 1.5-2.2 [facility] Comment on above: Performed By: #### L 500.2500, L500.3400, L100.0100, L501.5200, L501.2300 ####[facility] [address] [place], [address] Magnesium measurement (mass/ volume)Ordered By: Yordan Newman on 05-19-2025 Magnesium (Unsp spec) [Mass/Vol] 2.3 mg/dL High 1.5-2.2 [facility] Mean corpuscular hemoglobin (MCH) determinationOrdered By: Yordan Newman on 05-19-2025 MCH (RBC) [Entitic mass] 29.6 pg 27.0-32.0 [facility] Mean corpuscular hemoglobin concentration (MCHC) determinationOrdered By: Yordan Newman on 05-19-2025 MCHC (RBC) [Mass/Vol] 32.9 g/dL 32-36 [facility] Mean platelet volume determi nationOrdered By: Yordan Newman on 05-19-2025 Platelet mean volume (Bld) [Entitic vol] 10.8 fL 6.2-12.0 [facility] Monocyte percentageOrdered B y: Yordan Newman on 05-19-2025 Monocytes/100 WBC (Bld) 14.9 % High 0-[address] [facility] Neutrophil percentageOrdered By: Yordan Newman on 05-19-2025 Neutrophils/100 WBC (Bld) 65.2 % 47-70 [facility] Nucleated red blood cell per centageOrdered By: Yordan Newman on 05-19-2025 Nucleated RBC/100 WBC (Bld) [Ratio] 0 % 0-5 [facility] Phosphoruson 05-19-2025 Phosphate [Mass/Vol] 3.0 mg/dL Normal 2.7-4.5 [facility] Comment on above: Performed By: #### L 500.2500, L500.3400, L100.0100, L501.5200, L501.2300 ####[facility] [address] [place], [address] Platelet countOrdered By: Shantanu Newman on 05-19-2025 Platelets (Bld) [#/Vol] 318 10*3/uL 150-450 [facility] Potassium measurement (mass/ volume)Ordered By: Yordan Newman on 05-19-2025 Potassium (Unsp spec) [Mass/Vol] 4.1 mmol/L 3.3-5.1 [facility] RBC Auto (Bld) [#/Vol]Ordere d By: Yordan Newman on 05-19-2025 RBC (Bld) [#/Vol] 4.12 10*6/uL Low 4.2-5.4 [facility] Serum creatinine measurement (mass/volume)Ordered By: Yordan Newman on 05-19-2025 Creatinine [Mass/Vol] 1.00 mg/dL 0.70-1.20 [facility] Serum globulin measurementOr dered By: Yordan Newman on 05-19-2025 Globulin (S) [Mass/Vol] 2.5 g/dL 2.2-4.[address] [facility] Serum glucose measurement (m ass/volume)Ordered By: Yordan Newman on 05-19-2025 Glucose [Mass/Vol] 201 mg/dL High 70-99 [facility] Serum or plasma alanine pemberton otransferase (ALT) measurementOrdered By: Yordan Newman on 05-19-2025 ALT [Catalytic activity/Vol] 12 U/L <35 [facility] Serum or plasma albumin tomas urement (mass/volume)Ordered By: Yordan Newman on 05-19-2025 Albumin [Mass/Vol] 3.1 g/dL Low 3.4-4.8 [facility] Serum or plasma alkaline grey sphatase measurementOrdered By: Yordan Newman on 05-19-2025 ALP [Catalytic activity/Vol] 59 U/L 35-104 [facility] Serum or plasma calcium tomas urement (mass/volume)Ordered By: Yordan Newman on 05-19-2025 Calcium [Mass/Vol] 8.5 mg/dL 7.6-11.0 [facility] Serum or plasma urea nitroge n measurement (mass/volume)Ordered By: Yordan Newman on 05-19-2025 Urea nitrogen [Mass/Vol] 9 mg/dL 4-19 [facility] Sodium levelOrdered By: Joaquin Newman on 05-19-2025 Sodium [Moles/Vol] 139 mmol/L 133-145 [facility] Total proteinOrdered By: Jonathan Nemwan on 05-19-2025 Protein [Mass/Vol] 5.6 g/dL Low 5.9-8.4 [facility] White blood cell (WBC) count Ordered By: Yordan Newman on 10-02-2025 WBC (Bld) [#/Vol] 8.7 10*3/uL 4.4-11.0 [facility] ERCP Biliary/Pancreason 10-0 ERCP Biliary/Pancreas [facility] Imaging Services [address] [place] [address] ERCP Biliary/Pancreas MR#: [id number] Acct: [id number] Name: NORA GRANDE Rep #: [id number] : 1955 F 70 From: Yordan Peguero PCP: Dr. Claudine Mallory DO Status: ADM IN Study: ERCP Biliary/Pancreas Date of Exam: 05/18/25 Exam# [id number] Ordering Dr: Connor Tadeo DO PROCEDURE: ERCP BILIARY/PANCREAS; O.R. FLUORO FOR C-ARM 05/18/2025 REASON FOR EXAM: ERCP TECHNIQUE: Procedure Code: RADERCP; RADORFL_C_ARM Modality: DX Procedure: ERCP BILIARY/PANCREAS; O.R. FLUORO FOR C-ARM Fluoroscopy time: 70.5 seconds. Dose: 13.06 mGy. RAD/ERCP Biliary/Pancreas IMPRESSION: Fluoroscopy was performed for ERCP. 9 spot images were also obtained. Reading Location: [id number] CC: Dr. Claudine Mallory DO; Connor Tadeo DO Angle Roll Operator: Signed Normal [facility] ERCP Reporton 05-18-2025 ERCP Report [facility] Medical Records Department [address] [place] [address] ERCP Report MR#: [id number] Acct: [id number] Name: NORA GRANDE Rep #: [id number] : 1955 70 From: Connor Tadeo DO PCP: Dr. 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 Refer to note in patient chart for documentation of history and physical. Patient has symptoms of acute right upper quadrant abdominal pain. This patient has no history of previous ERCP. This patient has no history of surgical alteration of the upper digestive tract anatomy. Complications: No immediate complications. Procedure: Pre-Anesthesia Assessment: - Prior to the procedure, a History and Physical was performed, and patient medications and allergies were reviewed. The patient is competent. The risks and benefits of the procedure and the sedation options and risks were discussed with the patient. All questions were answered and informed consent was obtained. Patient identification and proposed procedure were verified by the physician in the pre-procedure area. Mental Status Examination: normal. Prophylactic Antibiotics: The patient does not require prophylactic antibiotics. Prior Anticoagulants: The patient has taken no anticoagulant or antiplatelet agents except for NSAID medication. ASA Grade Assessment: III - A patient with severe systemic disease. After reviewing the risks and benefits, the patient was deemed in satisfactory condition to undergo the procedure. The anesthesia plan was to use monitored anesthesia care (MAC). Immediately prior to administration of medications, the patient was re-assessed for adequacy to receive sedatives. The heart rate, respiratory rate, oxygen saturations, blood pressure, adequacy of pulmonary ventilation, and response to care were monitored throughout the procedure. The physical status of the patient was re-assessed after the procedure. After obtaining informed consent, the scope was passed under direct vision. Throughout the procedure, the patient's blood pressure, pulse, and oxygen saturations were monitored continuously. The Duodenoscope was introduced through the mouth, and advanced to the duodenum and used to inject contrast into the bile duct and ventral pancreatic duct. The ERCP was accomplished without difficulty. The patient tolerated the procedure well. Scope In: 1:08:06 PM Scope Out: 1:34:19 PM Total Procedure Duration Time 0 hours 26 minutes 13 seconds Findings: The singing teacher film was normal. The esophagus was successfully intubated under direct vision. The scope was advanced to a normal major papilla in the descending duodenum without detailed examination of the pharynx, larynx and associated structures, and upper GI tract. The upper GI tract was grossly normal. The ventral pancreatic duct was deeply cannulated with the short-nosed traction sphincterotome. Contrast was injected. I personally interpreted the bile duct and pancreatic duct images. There was appropriate flow of contrast through the ducts. Image quality was adequate. Contrast extended to the hepatic ducts. Contrast extended to the entire biliary tree. Contrast extended to the pancreatic duct. Opacification of the entire pancreatic ductal system was successful. The maximum diameter of the ducts was 4 mm. A long 0.025 inch Jagwire was passed into the ventral pancreatic duct. One 5 Fr by 7 cm temporary stent was placed 5 cm into the ventral pancreatic duct. Clear fluid flowed through the stent. The stent was in good position. The bile duct was deeply cannulated with the short-nosed traction sphincterotome. Contrast was injected. Opacification of the entire biliary tree was successful. The maximum diameter of the ducts was 10 mm. The lower third of the main bile duct contained a single localized stenosis 6 mm in length. The main bile duct was diffusely dilated, acquired. The largest diameter was 10 mm. A long 0.025 inch Jagwire was passed into the biliary tree. A 5 mm biliary sphincterotomy was made with a traction (standard) sphincterotome using ERBE electrocautery. There was no post-sphincterotomy bleeding. The biliary tree was swept with a 12 mm balloon starting at the bifurcation. Sludge was swept from the duct. All stones were removed. Cells for cytology were obtained by brushing in the lower third of the main bile duct. Impression: - A single localized biliary stricture was found in the lower third of the main bile duct. The strictu (more content not included)... Normal [facility] Electrocardiogram reportOrde red By: Morgan Mckeon on 05-18-2025 EKG study [facility] Cardiovascular Services [address] [place] [address] 12 Lead EKG 05/17/25 0528 MR#: [id number] Acct: [id number] Name: NORA GRANDE Rep #:[id number] : 1955 70 From: Morgan Mckeon MD Attending Dr: Dr. Yordan Newman MD Status: ADM IN Ordering Dr: Jorge Og MD Date: 0 05/16/25 Location: [facility] [place] [place] Sex: F C Admitted: 05/16/25 Test Reason : PRE-OP Blood Pressure : */* mmHG Vent. Rate : 70 BPM Atrial Rate : 70 BPM P-R Int : 170 ms QRS Dur : 84 ms QT Int : 392 ms P-R-T Axes : 89 89 83 degrees QTcB Int : 423 ms Normal sinus rhythm Possible Left atrial enlargement Borderline ECG When compared with ECG of 24-Dec-2020 17:25, No significant change was found Confirmed by FRANCIS CABALLERO, MORGAN ([id number]), electronic news gathering editor MORENA ASHBYYA ([id number]) on 05/18/2025 8:58:01 AM Referred By: PUNEET Confirmed By: MORGAN MCKEON MD 05/18/25 0858 Date _ Morgan Mckeon MD CC: Dr. Jorge Og MD; Dr. Yordan Newman MD; Dr. Claudine Mallory DO ~ Signed [facility] Other Phone: MR/OP.PROVATon 05-18-2025 MR/OP.[facility] Medical Records Department [address] [place] [address] Provation Physician Letter MR#: [id number] Acct: [id number] Name: NORA GRANDE Rep #: [id number] : 1955 70 From: Connor Tadeo DO PCP: Dr. Claudine Mallory DO Status:ADM IN 05/18/2025 Claudine Mallory [address] [place] [address] [address] [place] [address] Re : ERCP procedure for Nora Grande Dear Dr. Mallory This procedure was performed on Sunday, May 18, 2025. My impressions and recommendations are as follows: Impressions : - A single localized biliary stricture was found in the lower third of the main bile duct. The stricture was benign appearing, fibrotic and indeterminate. - The entire main bile duct was dilated, acquired. - Choledocholithiasis was found. Complete removal was accomplished by biliary sphincterotomy and balloon extraction. - One temporary stent was placed into the ventral pancreatic duct. - A biliary sphincterotomy was performed. - The biliary tree was swept. - Cells for cytology obtained in the lower third of the main duct. Recommendations : My findings are described in the full procedure note, which is enclosed. If I can be of further assistance, please feel free to contact me at . Sincerely, Connor Tadeo DO 05/18/2025 1:40:34 PM This report has been signed electronically. 05/18/25 1340 Date Connor Tadeo DO Cosigner Signature: Date (if indicated) CC: TESTER WASTE DISPOSAL LEAKAGEBogdan Mendez; FEDERICO Singh; Dr. Yordan Newman MD; Dr. Claudine Mallory DO; Dr. Jaylen Mike MD; Dr. Zachary Coffey MD; Dr. Danilo Salvador MD; GREGOR Hernandez; Connor Tadeo DO Date Dictated: 05/18/25 1238 Date Transcribed: Angle Roll Operator: JENNIFER Signed [facility] MR/POSTOP.[facility] 05-18-2025 MR/POSTOP.[facility] Medical Records Department [address] [place] [address] Anesthesia Postop Eval I 05/18/251404 MR#: [id number] Acct: [id number] Name: NORA GRANDE Rep #: [id number] : 1955 70 From: Carlo Arias PCP: Dr. Claudine Mallory DO Status:ADM IN Y Race: C Location: [place] [address] Anesthesia: Postop Eval I Current Vital Signs Temperature: 98.7 F Pulse Rate: 88 Blood Pressure: 127/79 Respiratory Rate: 16 Pulse Ox: 97 Oxygen Delivery Method: Room Air Assessment Airway patent: Yes Spontaneous unlabored respirations: Yes Mental status: Asleep nausea: No Vomiting: No Anesthesia Complication: No Fluid Hydration Crystalloid volume administer (ml): 400 Total IV fluid infused: 400 Progress Note Anesthesia document: Postop Eval 1 completed: Yes 10/01/25 1406 Date Carlo Sanchez Signature: Date CC: Signed Normal [facility] MR/[id number] 05-18-2025 MR/POSTOPAN2 [facility] Medical Records Department [address] [place] [address] Anesthesia Postop Eval II 05/18/25 1513 MR#: [id number] Acct: [id number] Name: NORA GRANDE Rep #: [id number] : 1955 70 From: Jorge Og MD PCP: Dr. Claduine Mallory, DO Status:ADM IN Race: C Location: [facility] [place] [place] [id number] Anesthesia Postop Eval I Sum Postop Eval Completion status Anesthesia document: Postop Eval 1 completed: Yes Anesthesia Postop Eval I Summary Anesthesia Postop Eval I Summary: Anesthesia Postop Eval I: Assessment Summary Airway patent Yes 05/18/25 14:06 [email or web address] Spontaneous unlabored Yes 05/18/25 14:06 [email or web address] respirations Mental status Asleep 05/18/25 14:06 [email or web address] nausea No 05/18/25 14:06 [email or web address] Vomiting No 05/18/25 14:06 [email or web address] Anesthesia Postop Eval I: Fluid Summary Crystalloid volume administer 400 05/18/25 14:06 [email or web address] (ml) Colloids volume administered ( ml) Blood Product volume administered (ml) Total IV fluid infused 400 05/18/25 14:06 [email or web address] Anesthesia Postop Eval I: Summary Notes Anesthesia Complication No 05/18/25 14:06 [email or web address] Anesthesia Complication Comment: Post-operative progress note Anesthesia: Postop Eval II Evaluation Mental status: Awake and Calm Pain Level: 0 nausea: No Vomiting: No Complications Anesthesia Complication: No 05/18/25 151 Date Jorge Torresigndmitry Signature: Date CC: Signed [facility] O.R. Fluoro for C-Jose Antonio 10 O.R. Fluoro for C-Arm [facility] Imaging Services [address] [facility] [place] [address] O.R. Fluoro for C-Arm MR#: [id number] Acct: [id number] Name: NORA GRANDE Rep #: [id number] : 1955 F 70 From: Yordan Peguero PCP: Dr. Claudine Mallory DO Status: ADM IN Study: O.R. Fluoro for C-Arm Date of Exam: 05/18/25 Exam# [id number] Ordering Dr: Connor Tadeo DO PROCEDURE: ERCP BILIARY/PANCREAS; O.R. FLUORO FOR C-ARM 05/18/2025 REASON FOR EXAM: ERCP TECHNIQUE: Procedure Code: RADERCP; RADORFL_C_ARM Modality: DX Procedure: ERCP BILIARY/PANCREAS; O.R. FLUORO FOR C-ARM Fluoroscopy time: 70.5 seconds. Dose: 13.06 mGy. RAD/O.R. Fluoro for C-Arm IMPRESSION: Fluoroscopy was performed for ERCP. 9 spot images were also obtained. Reading Location: [id number] CC: Dr. Claudine Mallory DO; Connor Tadeo DO Angle Roll Operator: Signed [facility] ,Urineon 05-18-2025 Beta HCG ( test) Ql (U) [facility] Comment on above: Order Comment: Femal es 12-55 or menstruation outside age range Result Comment: CANC EL PER MAMADOU CANALES RN Performed By: #### L 266.3268 #### [facility] Laboratory [address] [place], [place], [address] INTERNAL QC OK? Normal [facility] Comment on above: Order Comment: Femal es 12-55 or menstruation outside age range Result Comment: CANC EL PER MAMADOU CANALES RN Performed By: #### L 400.7600 #### [facility] [address] [place], [place], [address] RECORD KIT LOT# Normal [facility] Comment on above: Order Comment: Femal es 12-55 or menstruation outside age range Result Comment: CANC EL PER MAMADOU CANALES RN Performed By: #### L 400.7600 #### [facility] [address] [place], [place], [address] Special Stain Group IIon Special Stain Group II ----- ---- Patient Age/Sex Location Account Attending Physician ---- NORA GRANDE 70/F MS3 [id number] Dr. Yordan Newman MD ---- Specimen: [id number] Received: 05/19/25 Status: REI Wallace Num: [id number] Spec Type: Fluid Subm Dr: Dr. Yordan Newman MD HEADER OPERATION: ERCP PRE-OP DIAGNOSIS: Cholelithiasis TISSUE SUBMITTED: A- Distal brush tip and brushings ---- DIAGNOSIS CYTOLOGY A. Distal brushing and brush tip, ERCP (cytospin, cellblock, smear x3): * No malignant cells identified. CYTOLOGY STUDY Slides are reviewed. CYTOLOGY GROSS A. Received is 1 brush with 0.2 ml of braswell-cloudy fluid and 3 smears labeled with the patient's name and and designated per the requisition as Distal brushings and brush tip. Submitted for cytology and cell block preparation. 05/19/2025 CPT: 38445,29710 Signed (signature on file) Dr. Miriam Brennan MD 05/23/25 1149 ---- Normal [facility] Comment on above: Performed By: #### P SSII ####[facility] [address] [place], [place], [id number] Urine teston 05-18 HCG ( test) Ql (U) [facility] Absolute lymphocyte countOrd ered By: Zachary Coffey on 05-17-2025 Lymphocytes Auto (Unsp spec) [#/Vol] 2.82 10*3/uL 0.83-4.51 [facility] Absolute neutrophil countOrd ered By: Zachary Coffey on 05-17-2025 Neutrophils (Bld) [#/Vol] 6.4 10*3/uL 2.0-7.7 [facility] Anion gap in Serum or Plasma Ordered By: Zachary Coffey on 05-17-2025 Anion gap [Moles/Vol] 13 mmol/L 5-15 [facility] Automated lymphocyte count a s percentage of total leukocytesOrdered By: Zachary Coffey on 05-17-2025 Lymphocytes/100 WBC Auto (Unsp spec) 25.6 % - [facility] BUN/creatinine ratioOrdered By: Zachary Coffey on 05-17-2025 Urea nitrogen/Creatinine [Mass ratio] 12.8 mg/mg 10- [facility] Basophil percentageOrdered B y: Zachary Coffey on 05-17-2025 Basophils/100 WBC (Bld) 0.8 % 0-[address] [facility] Bilirubin, totalOrdered By: Zachary Coffey on 05-17-2025 Bilirubin [Mass/Vol] 0.83 mg/dL 0.00-1.30 [facility] CBC W/Diff, Automatedon 04-20 Absolute Lymph 2.82 X10 3/uL Normal 0.83-4.51 [facility] Comment on above: Performed By: #### L 500.4050, L100.0100 ####[facility] [address] [place], [address] Absolute Neut 6.4 X10 3/uL Normal 2.0-7.7 [facility] Comment on above: Performed By: #### L 500.4050, L100.0100 ####[facility] [address] [place], [address] Basophils/100 WBC (Bld) 0.8 % Normal 0-[address] [facility] Comment on above: Performed By: #### L 500.4050, L100.0100 ####[facility] [address] [place], [address] Eosinophils/100 WBC (Bld) 1.5 % Normal 0-5 [facility] Comment on above: Performed By: #### L 500.4050, L100.0100 ####[facility] [address] [place], [address] Erythrocyte distribution width (RBC) [Ratio] 13.7 % Normal 11.6-14.6 [facility] Comment on above: Performed By: #### L 500.4050, L100.0100 ####[facility] [address] [place], [address] Hematocrit (Bld) [Volume fraction] 39.3 % Normal 37-47 [facility] Comment on above: Performed By: #### L 500.4050, L100.0100 ####[facility] [address] [place], [address] Hemoglobin (Bld) [Mass/Vol] 13.4 g/dL Normal 12.0-15.0 [facility] Comment on above: Performed By: #### L 500.4050, L100.0100 ####[facility] [address] [place], [address] IG% 0.600 Normal 0.0-0.9 [facility] Comment on above: Result Comment: IG% - Immature Granulocytes (promyelocytes, myelocytes and metamyelocytes) > 1% indicates that a LEFT SHIFT is Present. Performed By: #### L 500.4050, L100.0100 ####[facility] [address] [place], [address] Lymphocytes/100 WBC (Bld) 25.6 % Normal 19-41 [facility] Comment on above: Performed By: #### L 500.4050, L100.0100 ####[facility] [address] [place], [address] MCH (RBC) [Entitic mass] 29.3 pg Normal 27.0-32.0 [facility] Comment on above: Performed By: #### L 500.4050, L100.0100 ####[facility] [address] [place], [address] MCHC (RBC) [Mass/Vol] 34.1 g/dL Normal 32-36 [facility] Comment on above: Performed By: #### L 500.4050, L100.0100 ####[facility] [address] [place], [address] MCV (RBC) [Entitic vol] 86.0 fL Normal 81-99 [facility] Comment on above: Performed By: #### L 500.4050, L100.0100 ####[facility] [address] [place], [address] Monocytes/100 WBC (Bld) 13.6 % High 0-10 [facility] Comment on above: Performed By: #### L 500.4050, L100.0100 ####[facility] [address] [place], [address] Neutrophils/100 WBC (Bld) 57.9 % Normal 47-70 [facility] Comment on above: Performed By: #### L 500.4050, L100.0100 ####[facility] [address] [place], [address] Nucleated RBC (Bld) [#/Vol] 0 10*3/uL Normal 0-5 [facility] Comment on above: Performed By: #### L 500.4050, L100.0100 ####[facility] [address] [place], [address] Platelet mean volume (Bld) [Entitic vol] 10.3 fL Normal 6.2-12.0 [facility] Comment on above: Performed By: #### L 500.4050, L100.0100 ####[facility] [address] [place], [address] Platelets (Bld) [#/Vol] 279 10*3/uL Normal 150-450 [facility] Comment on above: Performed By: #### L 500.4050, L100.0100 ####[facility] [address] [place], [address] RBC (Bld) [#/Vol] 4.57 10*6/uL Normal 4.2-5.4 [facility] Comment on above: Performed By: #### L 500.4050, L100.0100 ####[facility] [address] [place], [address] RDW SD 42.9 fl Normal 35.1-43.9 [facility] Comment on above: Performed By: #### L 500.4050, L100.0100 ####[facility] [address] [place], [address] WBC (Bld) [#/Vol] 11.0 10*3/uL Normal 4.4-11.0 [facility] Comment on above: Performed By: #### L 500.4050, L100.0100 ####[facility] [address] [place], [address] Carbon dioxide, total [Moles /volume] in Central venous bloodOrdered By: Zachary Coffey on 05-17-2025 CO2 [Moles/Vol] 21.0 mmol/L 21.0-32.0 [facility] Chloride assayOrdered By: Gregor Coffey on 05-17-2025 Chloride [Moles/Vol] 100 mmol/L 98-108 [facility] Comprehensive Metabolic Prof ilon 05-17-2025 Albumin [Mass/Vol] 3.4 g/dL Normal 3.4-4.8 [facility] Comment on above: Performed By: #### L 500.4050, L100.0100 ####[facility] [address] [place], [address] Albumin/Globulin [Mass ratio] 1.2 {ratio} Normal 0.9-2.4 [facility] Comment on above: Performed By: #### L 500.4050, L100.0100 ####[facility] [address] [place], [address] ALK PHOS 82 U/L Normal 35-104 [facility] Comment on above: Performed By: #### L 500.4050, L100.0100 ####[facility] [address] [place], [address] ALT [Catalytic activity/Vol] 11 U/L Normal <=34 [facility] Comment on above: Performed By: #### L 500.4050, L100.0100 ####[facility] [address] [place], [address] AST [Catalytic activity/Vol] 16 U/L Normal <=31 [facility] Comment on above: Performed By: #### L 500.4050, L100.0100 ####[facility] [address] [place], [address] Bilirubin [Mass/Vol] 0.83 mg/dL Normal 0.00-1.30 [facility] Comment on above: Performed By: #### L 500.4050, L100.0100 ####[facility] [address] [place], [address] BUN/CRE 12.8 RATIO Normal 10-20 [facility] Comment on above: Performed By: #### L 500.4050, L100.0100 ####[facility] [address] [place], [address] Calcium [Mass/Vol] 8.4 mg/dL Normal 7.6-11.0 [facility] Comment on above: Performed By: #### L 500.4050, L100.0100 ####[facility] [address] [place], [address] Chloride [Moles/Vol] 100 mmol/L Normal 98-108 [facility] Comment on above: Performed By: #### L 500.4050, L100.0100 ####[facility] [address] [place], [address] CO2 [Moles/Vol] 21.0 mmol/L Normal 21.0-32.0 [facility] Comment on above: Performed By: #### L 500.4050, L100.0100 ####[facility] [address] [place], [address] Creatinine [Mass/Vol] 1.03 mg/dL Normal 0.70-1.20 [facility] Comment on above: Performed By: #### L 500.4050, L100.0100 ####[facility] [address] [place], [address] ECRCL 44.72 ml/min Low 50-250 [facility] Comment on above: Performed By: #### L 500.4050, L100.0100 ####[facility] [address] [place], [address] GAP 13 Normal 5-15 [facility] Comment on above: Performed By: #### L 500.4050, L100.0100 ####[facility] [address] [place], [address] GFR/1.73 sq M.predicted among non-blacks MDRD (S/P/Bld) [Vol rate/Area] 58 mL/min/{1.73_m2} Low >60 [facility] Comment on above: Result Comment: mL/m in/1.73m2 CKD-EPI Creatinine Equation (2021) Performed By: #### L 500.4050, L100.0100 ####[facility] [address] [place], [address] Globulin (S) [Mass/Vol] 2.8 g/dL Normal 2.2-4.2 [facility] Comment on above: Performed By: #### L 500.4050, L100.0100 ####[facility] [address] [place], [address] Glucose [Mass/Vol] 86 mg/dL Normal 70-99 [facility] Comment on above: Performed By: #### L 500.4050, L100.0100 ####[facility] [address] [place], [address] Potassium [Moles/Vol] 3.5 mmol/L Normal 3.3-5.1 [facility] Comment on above: Performed By: #### L 500.4050, L100.0100 ####[facility] [address] [place], [address] Sodium [Moles/Vol] 134 mmol/L Normal 133-145 [facility] Comment on above: Performed By: #### L 500.4050, L100.0100 ####[facility] [address] [place], [address] T PROT 6.2 g/dL Normal 5.9-8.4 [facility] Comment on above: Performed By: #### L 500.4050, L100.0100 ####[facility] [address] [place], [address] Urea nitrogen [Mass/Vol] 13 mg/dL Normal 4-19 [facility] Comment on above: Performed By: #### L 500.4050, L100.0100 ####[facility] [address] [place], [address] Eosinophil percentageOrdered By: Zachary Coffey on 05-17-2025 Eosinophils/100 WBC (Bld) 1.5 % 0-5 [facility] Erythrocyte distribution wid th ratioOrdered By: Zachary Coffey on 05-17-2025 Erythrocyte distribution width (RBC) [Ratio] 13.7 % 11.6-14.6 [facility] Erythrocyte distribution wid th standard deviationOrdered By: Zachary Coffey on 05-17-2025 Erythrocyte distribution width (RBC) [Ratio] 42.9 fl 35.1-43.9 [facility] Glomerular filtration rate ( GFR) estimation/1.73 sq m using serum, plasma, or whole bOrdered By: Zachary Coffey on 05-17-2025 GFR/1.73 sq M.predicted among non-blacks MDRD (S/P/Bld) [Vol rate/Area] 58 mL/min/{1.73_m2} Low >60 [facility] Comment on above: mL/min/1.73m2 CKD-EP I Creatinine Equation (2020) Hematocrit Auto (Bld) [Volum e fraction]Ordered By: Zachary Coffey on 05-17-2025 Hematocrit (Bld) [Volume fraction] 39.3 % 37-47 [facility] Hemoglobin measurementOrdere d By: Zachary Coffey on 05-17-2025 Hemoglobin (Bld) [Mass/Vol] 13.4 g/dL 12.0-15.0 [facility] Immature granulocytes/100 WB C Auto (Bld)Ordered By: Zachary Coffey on 05-17-2025 Immature granulocytes/100 WBC (Bld) 0.600 % 0.0-0.9 [facility] Comment on above: IG% - Immature Granu locytes (promyelocytes, myelocytes and metamyelocytes) > 1% indicates that a LEFT SHIFT is Present. Laboratory - Chemistry and C hemistry - challengeOrdered By: Zachary Coffey on 05-17-2025 AST [Catalytic activity/Vol] 16 U/L <32 [facility] MCV (mean corpuscular volume ) determinationOrdered By: Zachary Coffey on 05-17-2025 MCV (RBC) [Entitic vol] 86.0 fL 81-[address] [facility] MR/CON.PCM.Kaya 05-17-2025 MR/CON.PCM.GI [facility] Medical Records Department [address] [place] [address] Consultation - GI 05/17/251948 MR#: [id number] Acct: [id number] Name: NORA GRANDE Rep #: [id number] : 1955 70 From: Connor Friend DO PCP: Dr. Claudine Mallory, DO Status:ADM IN Location: [place] [id number] HPI Consult Data Date of Consult: 05/17/25 HPI Narrative Reason for Consultation: abdominal pain HPI Narrative: NORA GRANDE, is a 70 F who presented to the emergency department for abdominal pain. Patient has a past medical history of COPD, hypertension, CHF, fibromyalgia. Patient states that on she started to have left sided abdominal pain. She has a history of chronic constipation. Reports that on Friday she had a small hard bowel movement that had dark blood in it. She endorses some nausea with no vomiting. States the abdominal pain continued yesterday and today. Denies any fever, chills, chest pain, shortness of breath, dysuria or hematuria. Denies ever having abdominal pain like this in the past. She does not take anything for her symptoms. No BM yesterday or today. She is not on any OAC. Denies any alcohol or NSAID use. CT/Abdomen/Pelvis: Interval development of moderate right intrahepatic ductal dilatation of uncertain etiology. No definitive obstructing mass or stone in the right hepatic duct. Left biliary intrahepatic ducts normal. Cholelithiasis. No definitive choledocholithiasis. US/Gallbladder: Cholelithiasis. No evidence for acute cholecystitis. Mild intra and extrahepatic biliary ductal dilatation, and prominence of the main pancreatic duct. No discrete obstructing mass or choledocholithiasis appreciated. MRCP may be helpful. Mild diffuse hepatic steatosis. Small benign-appearing hepatic cysts MRCP is pending COUNT INCLUDES [facility] Medical History Hx of emotional problems Hormone deficiency Back problem HTN (hypertension) History of skin cancer CHF (congestive heart failure) Fibromyalgia Tobacco use Home Medications ???Medication ???Instructions ???Recorded ???Last Taken ???Type clonazepam 1 mg tablet 1 mg PO QHS anxiety 10/18/16 Unkno wn History multivitamin,tx-iron-m inerals 27 1 tab PO DAILY supplement 10/18/16 Unknown History mg-0.4 mg tablet buspirone 15 mg tablet 15 mg PO BID mood 10/09/23 Unknown History cyclobenzaprine 10 mg tablet 10 mg PO BID muscle spasm 10/09/23 Unknown History olanzapine 15 mg tablet 15 mg PO QHS mood 10/09/23 Unknown History duloxetine 30 mg capsule,delayed 30 mg PO QDAY mood 10/29/23 Unknow n History release duloxetine 60 mg capsule,delayed 60 mg PO QDAY mood 10/29/23 Unknow n History release losartan 50 mg tablet 50 mg PO QDAY bp 10/29/23 Unknown History potassium chloride 20 mEq 20 meq PO TID supplement 10/29/23 Unknown History tablet,extended release(part/cryst) albuterol sulfate 90 mcg/actuation 2 puff inhalation Q6H PRN Unknown Rx aerosol inhaler shortness of breath or wheezing #18 grams meclizine 25 mg tablet 50 mg PO BID vertigo 07/02/24 Unkn own History fluticasone fur. 200 mcg-umeclid 1 inh inhalation DAILY sob #60 ea 11/22/24 Unknown Rx 62.5 mcg-vilant 25 mcg inhalat.powder (Trelegy Ellipta) Allergy/AdvReac Type Severity Reaction Status Date / Time codeine Allergy Unknown Verified 05/16/25 13:56 ciprofloxacin (From Cipro) AdvReac Vomiting Verified 05/16/25 13:56 Family History Sister Diabetes Brother Diabetes Heart disease Father Heart disease Surgical History History of left hip replacement Hx of hysterectomy History of carpal tunnel release of both wrists Social History household members: none Smoking Status: Current every day smoker tobacco type: cigarettes and e-cigarettes Tobacco: How many years used: 40 Electronic Cigarette Use: with nicotine how long ago did patient quit smokin quit smoking cigarettes, 1ppd vaping currently second hand exposure: Yes Lab / Micro Data 05/17/25 03:15 05/17/25 03:15 Labs: Laboratory Results - last 24 hr 05/17/25 03:15: WBC 11.0, RBC 4.57, Hgb 13.4, Hct 39.3, MCV 86.0, MCH 29.3, MCHC 34.1, RDW Std Deviation 42.9, RDW Coeff of Nikolas 13.7, Plt Count 279, MPV 10.3, Immature Gran % (Auto) 0.600, Neut % (Auto) 57.9, Lymph % (Auto) 25.6, Jackson % (Auto) 13.6 H, Eos % (Auto) 1.5, Baso % (Auto) 0.8, Absolute Neuts (auto) 6.4, Absolute Lymphs (auto) 2.82, Nucleated RBC % 0, Sodium 134, Potassium 3.5, Chloride 100, Carbon Dioxide 21.0, Anion Gap 13, BUN 13, Creatinine 1.03, Estim Creat Clear Calc 44.72 L, Est GFR (MDRD) Non-Af 58 L, BUN/Creatinine Ratio 12.8, Glucose 86, Calcium 8.4, Total Bilirubin 0.83, (more content not included)... Normal [facility] MRCP Abdomen without Contras ton 05-17-2025 MRCP Abdomen without Contrast [facility] Imaging Services [address] [place] [address] MRCP Abdomen without Contrast MR#: [id number] Acct: [id number] Name: NORA GRANDE Rep #: [id number] : 1955 F 70 From: Avelino salvador MD PCP: Dr. Claudine Mallory, DO Status: ADM IN Study: MRCP Abdomen without Contrast Date of Exam: Exam# [id number] Ordering Dr: Jaylen Mike MD PROCEDURE: MRCP ABDOMEN WITHOUT CONTRAST 05/18/2025 REASON FOR EXAM: RIGHT INTRAHEPATIC DUCTAL DILATATION TECHNIQUE: Procedure Code: MRIMRCP Modality: MR Procedure: MRCP ABDOMEN WITHOUT CONTRAST Multiplanar and multisequence images were obtained. COMPARISON: 16-May-2025 FINDINGS: Distended gall bladder showing few low signal calculi, the largest 8 mm. No abnormal mural thickening. No related carlton-cholecystic collections. Relatively prominent extra-hepatic biliary tracts with the CBD reaches 6 mm in diameter showing no intraluminal filling defects. Normal appearance of the intra-hepatic biliary tracts. The pancreatic duct is relatively prominent. Unremarkable pancreas with no sizeable obstructing masses. Average sized liver showing homogenous parenchymal signal with hepatic dome small cyst. No masses. The spleen and adrenal glands are unremarkable. Both kidneys are normal in size and position. No hydronephrosis or focal masses could be seen in both kidneys. Few bilateral renal cortical cysts with mild perinephric fat stranding. Small and large bowel loops appears largely collapsed however, is grossly unremarkable. Stomach shows no significant abnormality. No ascites or collections. No significant lymph node enlargement is seen in the abdomen. No marrow infiltrative lesions. MRI/MRCP Abdomen without Contrast IMPRESSION: Gall bladder calculi. No cholecystitis. Relatively prominent extra-hepatic biliary tracts with prominent pancreatic duct showing no intraluminal filling defects or pancreatic head masses, possibly age related . Reading Location: [place] [address] CC: Dr. Claudine Mallory DO; Dr. Jaylen Mike MD Angle Roll Operator: Signed Normal [facility] Magnetic resonance imaging r eportOrdered By: Avelino Caruso on 05-17-2025 Study report [facility] Imaging Services [address] [place], [place] [id number] MRCP Abdomen without Contrast MR#: [id number] Acct: [id number] Name: NORA GRANDE Rep #: [id number] : 1955 F 70 From: Ricki Caruso MD PCP: Dr. Claudine Mallory DO Status: ADM IN Study:MRCP Abdomen without Contrast Date of E xam: 05/17/25 Exam# [id number] Ordering Dr: Jaylen Mike MD PROCEDURE: MRCP ABDOMEN WITHOUT CONTRAST 05/18/2025 REASON FOR EXAM: RIGHT INTRAHEPATIC DUCTAL DILATATION TECHNIQUE: Procedure Code: MRIMRCP Modality: MR Procedure: MRCP ABDOMEN WITHOUT CONTRAST Multiplanar and multisequence images were obtained. COMPARISON: 16-May-2025 FINDINGS: Distended gall bladder showing few low signal calculi, the largest 8 mm. No abnormal mural thickening. No related carlton-cholecystic collections. Relatively prominent extra-hepatic biliary tracts with the CBD reaches 6 mm in diameter showing no intraluminal filling defects. Normal appearance of the intra-hepatic biliary tracts. The pancreatic duct is relatively prominent. Unremarkable pancreas with no sizeable obstructing masses. Average sized liver showing homogenous parenchymal signal with hepatic dome small cyst. No masses. The spleen and adrenal glands are unremarkable. Both kidneys are normal in size and position. No hydronephrosis or focal masses could be seen in both kidneys. Few bilateral renal cortical cysts with mild perinephric fat stranding. Small and large bowel loops appears largely collapsed however, is grossly unremarkable. Stomach shows no significant abnormality. No ascites or collections. No significant lymph node enlargement is seen in the abdomen. No marrow infiltrative lesions. MRI/MRCP Abdomen without Contrast IMPRESSION: Gall bladder calculi. No cholecystitis. Relatively prominent extra-hepatic biliary tracts with prominent pancreatic ductshowing no intraluminal filling defects or pancreatic head masses, possibly age related . Reading Location: [place] [address] CC: Dr. Claudine Mallory DO; Dr. Jaylen Mike MD ~ Angle Roll Operator: Signed [facility] Mean corpuscular hemoglobin (MCH) determinationOrdered By: Zachary Coffey on 05-17-2025 MCH (RBC) [Entitic mass] 29.3 pg 27.0-32.0 [facility] Mean corpuscular hemoglobin concentration (MCHC) determinationOrdered By: Zachary Coffey on 05-17-2025 MCHC (RBC) [Mass/Vol] 34.1 g/dL 32-36 [facility] Mean platelet volume determi nationOrdered By: Zachary Coffey on 05-17-2025 Platelet mean volume (Bld) [Entitic vol] 10.3 fL 6.2-12.0 [facility] Monocyte percentageOrdered B y: Zachary Coffey on 05-17-2025 Monocytes/100 WBC (Bld) 13.6 % High 0-[address] [facility] Neutrophil percentageOrdered By: Zachary Coffey on 05-17-2025 Neutrophils/100 WBC (Bld) 57.9 % 47-70 [facility] Nucleated red blood cell per centageOrdered By: Zachary Coffey on 05-17-2025 Nucleated RBC/100 WBC (Bld) [Ratio] 0 % 0-5 [facility] Platelet countOrdered By: Gregor Coffey on 05-17-2025 Platelets (Bld) [#/Vol] 279 10*3/uL 150-450 [facility] Potassium measurement (mass/ volume)Ordered By: Zachary Coffey on 05-17-2025 Potassium (Unsp spec) [Mass/Vol] 3.5 mmol/L 3.3-5.1 [facility] RBC Auto (Bld) [#/Vol]Ordere d By: Zachary Coffey on 05-17-2025 RBC (Bld) [#/Vol] 4.57 10*6/uL 4.2-5.4 [facility] Serum creatinine measurement (mass/volume)Ordered By: Zachary Coffey on 05-17-2025 Creatinine [Mass/Vol] 1.03 mg/dL 0.70-1.20 [facility] Serum globulin measurementOr dered By: Zachary Coffey on 05-17-2025 Globulin (S) [Mass/Vol] 2.8 g/dL 2.2-4.2 [facility] Serum glucose measurement (m ass/volume)Ordered By: Zachary Coffey on 05-17-2025 Glucose [Mass/Vol] 86 mg/dL 70-99 [facility] Serum or plasma alanine pemberton otransferase (ALT) measurementOrdered By: Zachary Coffey on 05-17-2025 ALT [Catalytic activity/Vol] 11 U/L <35 [facility] Serum or plasma albumin tomas urement (mass/volume)Ordered By: Zachary Coffey on 05-17-2025 Albumin [Mass/Vol] 3.4 g/dL 3.4-4.8 [facility] Serum or plasma albumin/glob ulin mass ratioOrdered By: Zachary Coffey on 05-17-2025 Albumin/Globulin [Mass ratio] 1.2 {ratio} 0.9-2.4 [facility] Serum or plasma alkaline grey sphatase measurementOrdered By: Zachary Coffey on 05-17-2025 ALP [Catalytic activity/Vol] 82 U/L 35-104 [facility] Serum or plasma calcium tomas urement (mass/volume)Ordered By: Zachary Coffey on 05-17-2025 Calcium [Mass/Vol] 8.4 mg/dL 7.6-11.0 [facility] Serum or plasma urea nitroge n measurement (mass/volume)Ordered By: Zachary Coffey on 05-17-2025 Urea nitrogen [Mass/Vol] 13 mg/dL 4-19 [facility] Sodium levelOrdered By: Zachary Coffey on 05-17-2025 Sodium [Moles/Vol] 134 mmol/L 133-145 [facility] Total proteinOrdered By: Radha Coffey on 05-17-2025 Protein [Mass/Vol] 6.2 g/dL 5.9-8.4 [facility] White blood cell (WBC) count Ordered By: Zachary Coffey on 05-17-2025 WBC (Bld) [#/Vol] 11.0 10*3/uL 4.4-11.0 [facility] 12 Lead EKGon 05-16-2025 12 Lead EKG [facility] Cardiovascular Services [address] [place] [address] 12 Lead EKG 05/17/25 0528 MR#: [id number] Acct: [id number] Name: NORA GRANDE Rep #: [id number] : 1955 70 From: Morgan Mckeon MD Attending Dr: Dr. Yordan Newman MD Status: ADM IN Ordering Dr: Jorge Og MD Date: 05/16/25 Location: [facility] [place], [place] Sex: F C Admitted: 05/16/25 Test Reason : PRE-OP Blood Pressure : */* mmHG Vent. Rate : 70 BPM Atrial Rate : 70 BPM P-R Int : 170 ms QRS Dur : 84 ms QT Int : 392 ms P-R-T Axes : 89 89 83 degrees QTcB Int : 423 ms Normal sinus rhythm Possible Left atrial enlargement Borderline ECG When compared with ECG of 24-Dec-2020 17:25, No significant change was found Confirmed by MORGAN MCKEON MD ([id number]), electronic news gathering editor BOYD ASHBY ([id number]) on 05/18/2025 8:58:01 AM Referred By: PUNEET Confirmed By: MORGAN MCKEON MD 05/18/25 0858 Date Morgan Mckeon MD CC: Dr. Jorge Og MD; Dr. Yordan Newman MD; Dr. Claudine Mallory DO Signed Normal [facility] Abdomen/Pelvis W IV Cont ONL Yon 05-16-2025 Abdomen/Pelvis W IV Cont ONLY [facility] Imaging Services [address] [place], [place] [address] Abdomen/Pelvis W IV Cont ONLY MR#: [id number] Acct: [id number] Name: NORA GRANDE Rep #: [id number] : 1955 F 70 From: Eze Weems MD PCP: Dr. Claudine Mallory DO Status: REG ER Study: Abdomen/Pelvis W IV Cont ONLY Date of Exam: Exam# [id number] Ordering Dr: Tamara Neal MD PROCEDURE: ABDOMEN/PELVIS W IV CONT ONLY 05/16/2025 REASON FOR EXAM: ABD PAIN, BLOOD IN STOOL, CONSTIPATED TECHNIQUE: Procedure Code: CTABDPELIV Modality: CT Procedure: ABDOMEN/PELVIS W IV CONT ONLY Coronal and Sagittal reconstruction series were provided. CONTRAST: Isovue 370 VOLUME: 90 mL One or more dose reduction techniques were used (e.g., Automated exposure control, adjustment of the mA and/or kV according to patient size, use of iterative reconstruction technique. RADIATION DOSE SUMMARY: CTDlvol: 26 mGy DLP: DLP 7 mGycm COMPARISON: December 2020 FINDINGS: Lung bases: Negative. ABDOMEN Liver: Right hepatic simple cysts, stable. Biliary system: Moderately prominent right-sided intrahepatic ducts. No focal obstructing lesion. Left-sided intrahepatic ducts negative. This is new. Common hepatic duct and common bile duct otherwise negative. Gallbladder: Contains stones. Negative for cholecystitis. Spleen: Negative. Pancreas: Surgical sam adjacent to the tail of the pancreas. Adrenals: Negative. Kidneys: Negative. Negative for kidney stones, cysts or masses. Bowel: Moderate increased stool throughout the colon. Negative for small or large-bowel obstruction. Appendix: The appendix is not identified. There is no inflammatory process identified in the right lower quadrant to suggest appendicitis. Vasculature: Moderate atherosclerotic vascular calcifications of the abdominal aorta and its branches. Peritoneum / Retroperitoneum: Negative. PELVIS Lymph nodes: Negative for inguinal or iliac adenopathy. Bladder: Urinary bladder negative. Reproductive Organs: Hysterectomy. Bones and Soft Tissues: Marked degenerative disc disease and facet disease mid and lower lumbar spine. Otherwise age appropriate appearance off the lumbar spine hips and pelvis. CT/Abdomen/Pelvis W IV Cont ONLY IMPRESSION: Interval development of moderate right intrahepatic ductal dilatation of uncertain etiology. No definitive obstructing mass or stone in the right hepatic duct. Left biliary intrahepatic ducts normal. Cholelithiasis. No definitive choledocholithiasis. Reading Location: [place] [address] CC: Dr. Tamara Neal MD; Dr. Claudine Mallory DO Angle Roll Operator: Signed Normal [facility] Bilirubin Test strip Ql (U)O rdered By: Tamara Neal on 05-16-2025 Bilirubin Ql (U) Negative Negative [facility] CBC W/Diff, Automatedon 04-19 Absolute Lymph 2.63 X10 3/uL Normal 0.83-4.51 [facility] Comment on above: Performed By: #### L 501.2450, L100.0100, L500.4050 #### [facility] Laboratory [address] [place], [address] Absolute Neut 7.9 X10 3/uL High 2.0-7.7 [facility] Comment on above: Performed By: #### L 501.2450, L100.0100, L500.4050 #### [facility] [address] [place], [address] Basophils/100 WBC (Bld) 0.8 % Normal 0-[address] [facility] Comment on above: Performed By: #### L 501.2450, L100.0100, L500.4050 #### [facility] [address] [place], [address] Eosinophils/100 WBC (Bld) 0.9 % Normal 0-5 [facility] Comment on above: Performed By: #### L 501.2450, L100.0100, L500.4050 #### [facility] [address] [place], [address] Erythrocyte distribution width (RBC) [Ratio] 13.8 % Normal 11.6-14.6 [facility] Comment on above: Performed By: #### L 501.2450, L100.0100, L500.4050 #### [facility] [address] [place], [address] Hematocrit (Bld) [Volume fraction] 44.0 % Normal 37-47 [facility] Comment on above: Performed By: #### L 501.2450, L100.0100, L500.4050 #### [facility] [address] [place], [address] Hemoglobin (Bld) [Mass/Vol] 14.6 g/dL Normal 12.0-15.0 [facility] Comment on above: Performed By: #### L 501.2450, L100.0100, L500.4050 #### [facility] [address] [place], [address] IG% 0.600 Normal 0.0-0.9 [facility] Comment on above: Result Comment: IG% - Immature Granulocytes (promyelocytes, myelocytes and metamyelocytes) > 1% indicates that a LEFT SHIFT is Present. Performed By: #### L 501.2450, L100.0100, L500.4050 #### [facility] [address] [place], [address] Lymphocytes/100 WBC (Bld) 21.9 % Normal 19-41 [facility] Comment on above: Performed By: #### L 501.2450, L100.0100, L500.4050 #### [facility] [address] [place], [address] MCH (RBC) [Entitic mass] 29.3 pg Normal 27.0-32.0 [facility] Comment on above: Performed By: #### L 501.2450, L100.0100, L500.4050 #### [facility] [address] [place], [address] MCHC (RBC) [Mass/Vol] 33.2 g/dL Normal 32-36 [facility] Comment on above: Performed By: #### L 501.2450, L100.0100, L500.4050 #### [facility] [address] [place], [address] MCV (RBC) [Entitic vol] 88.2 fL Normal 81-99 [facility] Comment on above: Performed By: #### L 501.2450, L100.0100, L500.4050 #### [facility] [address] [place], [address] Monocytes/100 WBC (Bld) 10.2 % High 0-10 [facility] Comment on above: Performed By: #### L 501.2450, L100.0100, L500.4050 #### [facility] [address] [place], [address] Neutrophils/100 WBC (Bld) 65.6 % Normal 47-70 [facility] Comment on above: Performed By: #### L 501.2450, L100.0100, L500.4050 #### [facility] [address] [place], [address] Nucleated RBC (Bld) [#/Vol] 0 10*3/uL Normal 0-5 [facility] Comment on above: Performed By: #### L 501.2450, L100.0100, L500.4050 #### [facility] [address] [place], [address] Platelet mean volume (Bld) [Entitic vol] 10.2 fL Normal 6.2-12.0 [facility] Comment on above: Performed By: #### L 501.2450, L100.0100, L500.4050 #### [facility] [address] [place], [address] Platelets (Bld) [#/Vol] 292 10*3/uL Normal 150-450 [facility] Comment on above: Performed By: #### L 501.2450, L100.0100, L500.4050 #### [facility] [address] [place], [address] RBC (Bld) [#/Vol] 4.99 10*6/uL Normal 4.2-5.4 [facility] Comment on above: Performed By: #### L 501.2450, L100.0100, L500.4050 #### [facility] [address] [place], [address] RDW SD 44.4 fl High 35.1-43.9 [facility] Comment on above: Performed By: #### L 501.2450, L100.0100, L500.4050 #### [facility] [address] [place], [address] WBC (Bld) [#/Vol] 12.0 10*3/uL High 4.4-11.0 [facility] Comment on above: Performed By: #### L 501.2450, L100.0100, L500.4050 #### [facility] [address] [place], [address] CNOVon 05-16-2025 CNOV Office Visit ([facility]) CHRISTIANENORA Ashlie ([id number]) 1955 F T Date Time Provider Department 05/16/25 1:45 PM CHASE CRAWFORD During your visit today, we recorded the following information about you: Chase Crawford MD 05/16/2025 1:50 PM Signed Express Care Triage Note: Patient presents to the express care with complaint of left abdominal pain, blood in stool, and cough over the last 4 days. She is uncomfortable with transitions. She chooses ER evaluation and will go to [facility] ED. Allergies As of Date: 05/16/2025 Noted [...] 1 tablet by mouth once daily. Dr Mallory - DULoxetine (CYMBALTA) 60 mg capsule Take 1 capsule by mouth once daily. - CPAP CPAP 11 cmH2O, suitable mask, tubing, humidifier, filters. Lifetime supplies. Dx: 327.23 - Obstructive sleep apnea Problem List As Of Date 05/16/2025 Noted Resolved Routine general medical examination at [facility]*05/13/2011 12/22/2012 Class: Chronic Routine gynecological examination [Z01.419] [...] of left hip [Z96.*02/19/2021 Encounter Status:Closed by CHASE CRAWFORD on 05/16/25 Normal [facility] Metabolic Prof pan 05-16-2025 Albumin [Mass/Vol] 3.6 g/dL Normal 3.4-4.8 [facility] Comment on above: Performed By: #### L 501.5080, L100.0100, L500.4050 #### [facility] [place] [address], [address] Albumin/Globulin [Mass ratio] 1.1 {ratio} Normal 0.9-2.4 [facility] Comment on above: Performed By: #### L 501.2450, L100.0100, L500.4050 #### [facility] [address] [place], [address] ALK PHOS 75 U/L Normal 35-104 [facility] Comment on above: Performed By: #### L 501.2450, L100.0100, L500.4050 #### [facility] [address] [place], [address] ALT [Catalytic activity/Vol] 13 U/L Normal <=34 [facility] Comment on above: Performed By: #### L 501.2450, L100.0100, L500.4050 #### [facility] [address] [place], [address] AST [Catalytic activity/Vol] 14 U/L Normal <=31 [facility] Comment on above: Performed By: #### L 501.2450, L100.0100, L500.4050 #### [facility] [address] [place], [address] Bilirubin [Mass/Vol] 0.82 mg/dL Normal 0.00-1.30 [facility] Comment on above: Performed By: #### L 501.2450, L100.0100, L500.4050 #### [facility] [address] [place], [address] BUN/CRE 11.7 RATIO Normal 10-20 [facility] Comment on above: Performed By: #### L 501.2450, L100.0100, L500.4050 #### [facility] [address] [place], [address] Calcium [Mass/Vol] 9.2 mg/dL Normal 7.6-11.0 [facility] Comment on above: Performed By: #### L 501.2450, L100.0100, L500.4050 #### [facility] [address] [place], [address] Chloride [Moles/Vol] 99 mmol/L Normal 98-108 [facility] Comment on above: Performed By: #### L 501.2450, L100.0100, L500.4050 #### [facility] [address] [place], [address] CO2 [Moles/Vol] 21.6 mmol/L Normal 21.0-32.0 [facility] Comment on above: Performed By: #### L 501.2450, L100.0100, L500.4050 #### [facility] [address] [place], [address] Creatinine [Mass/Vol] 1.17 mg/dL Normal 0.70-1.20 [facility] Comment on above: Performed By: #### L 501.2450, L100.0100, L500.4050 #### [facility] [address] [place], [address] ECRCL 39.17 ml/min Low 50-250 [facility] Comment on above: Performed By: #### L 501.2450, L100.0100, L500.4050 #### [facility] [address] [place], [address] GAP 13 Normal 5-15 [facility] Comment on above: Performed By: #### L 501.2450, L100.0100, L500.4050 #### [facility] [address] [place], [address] GFR/1.73 sq M.predicted among non-blacks MDRD (S/P/Bld) [Vol rate/Area] 50 mL/min/{1.73_m2} Low >60 [facility] Comment on above: Result Comment: mL/m in/1.73m2 CKD-EPI Creatinine Equation (2020) Performed By: #### L 501.2450, L100.0100, L500.4050 #### [facility] [address] [place], [address] Globulin (S) [Mass/Vol] 3.3 g/dL Normal 2.2-4.2 [facility] Comment on above: Performed By: #### L 501.2450, L100.0100, L500.4050 #### [facility] [address] [place], [address] Glucose [Mass/Vol] 146 mg/dL High 70-99 [facility] Comment on above: Performed By: #### L 501.2450, L100.0100, L500.4050 #### [facility] [address] [place], [address] Potassium [Moles/Vol] 3.5 mmol/L Normal 3.3-5.1 [facility] Comment on above: Performed By: #### L 501.2450, L100.0100, L500.4050 #### [facility] [address] [place], [address] Sodium [Moles/Vol] 134 mmol/L Normal 133-145 [facility] Comment on above: Performed By: #### L 501.2450, L100.0100, L500.4050 #### [facility] [address] [place], [address] T PROT 7.0 g/dL Normal 5.9-8.4 [facility] Comment on above: Performed By: #### L 501.2450, L100.0100, L500.4050 #### [facility] [address] [place], [address] Urea nitrogen [Mass/Vol] 14 mg/dL Normal 4-19 [facility] Comment on above: Performed By: #### L 501.2450, L100.0100, L500.4050 #### [facility] [address] [place], [address] Emergency Department Summary on 05-16-2025 Emergency Department Summary [facility] Medical Records Department [address] [place] [address] Emergency Department Summary 05/16/25 MR#: [id number] Acct: [id number] Name: NORA GRANDE Rep #: [id number] : 1955 70 From: Tamara Neal MD PCP: Dr. Claudine Mallory, DO Status:ADM IN Location: [facility]3 [id number] HPI HPI - GI History of Present Illness Chief Complaint: Abd Pain Narrative Narrative: Patient is a 70-year-old female presenting to the emergency department for abdominal pain that started on . Patient has a past medical history of COPD, hypertension, CHF, fibromyalgia. Patient states that on she started to have left sided abdominal pain. States that she cannot remember the last time that she had a normal bowel movement. Reports that on Friday she had a small hard bowel movement that had dark blood in it. She endorses some nausea with no vomiting. States the abdominal pain continued yesterday and today. Denies any fever, chills, chest pain, shortness of breath, dysuria or hematuria. Denies ever having abdominal pain like this in the past. She does not take anything for her symptoms. No BM yesterday or today. She is not on any OAC. Denies any alcohol or NSAID use. PFSH PFSH Medical History Hx of emotional problems Hormone deficiency Back problem HTN (hypertension) History of skin cancer CHF (congestive heart failure) Fibromyalgia Tobacco use Home Medications ???Medication ???Instructions ???Recorded ???Last Taken ???Type clonazepam 1 mg tablet 1 mg PO QHS anxiety 10/18/16 Unkno wn History multivitamin,tx-iron-m inerals 27 1 tab PO DAILY supplement 10/18/16 Unknown History mg-0.4 mg tablet buspirone 15 mg tablet 15 mg PO BID mood 10/09/23 Unknown History cyclobenzaprine 10 mg tablet 10 mg PO BID muscle spasm 10/09/23 Unknown History olanzapine 15 mg tablet 15 mg PO QHS mood 10/09/23 Unknown History duloxetine 30 mg capsule,delayed 30 mg PO QDAY mood 10/29/23 Unknow n History release duloxetine 60 mg capsule,delayed 60 mg PO QDAY mood 10/29/23 Unknow n History release losartan 50 mg tablet 50 mg PO QDAY bp 10/29/23 Unknown History potassium chloride 20 mEq 20 meq PO TID supplement 10/29/23 Unknown History tablet,extended release(part/cryst) albuterol sulfate 90 mcg/actuation 2 puff inhalation Q6H PRN Unknown Rx aerosol inhaler shortness of breath or wheezing #18 grams meclizine 25 mg tablet 50 mg PO BID vertigo 07/02/24 Unkn own History fluticasone fur. 200 mcg-umeclid 1 inh inhalation DAILY sob #60 ea 11/22/24 Unknown Rx 62.5 mcg-vilant 25 mcg inhalat.powder (Trelegy Ellipta) Allergy/AdvReac Type Severity Reaction Status Date / Time codeine Allergy Unknown Verified 05/16/25 13:56 ciprofloxacin (From Cipro) AdvReac Vomiting Verified 05/16/25 13:56 Family History Sister Diabetes Brother Diabetes Heart disease Father Heart disease Surgical History History of left hip replacement Hx of hysterectomy History of carpal tunnel release of both wrists Social History household members: none Smoking Status: Current every day smoker tobacco type: cigarettes and e-cigarettes Tobacco: How many years used: 40 Electronic Cigarette Use: with nicotine how long ago did patient quit smokin quit smoking cigarettes, 1ppd vaping currently second hand exposure: Yes ROS ROS ED ROS Narrative see HPI EXAM Physical Exam Narrative Exam Narrative: Vital signs: Reviewed General: Alert and orientedx3. No acute distress HEENT: Head is normocephalic and atraumatic, sinuses nontender, pupils equal round and reactive. Nares are patent. Oropharynx and throat exams normal. Neck: Supple without lymphadenopathy nontender Cardiovascular: Regular rate and rhythm, no murmurs. No rubs or gallops. Normal S1 and S2 Respiratory: Clear to auscultation bilaterally. No wheezes, rales, rhonchi Abdominal: Soft and diffusely tender to palpation throughout. Normal bowel sounds. No guarding or rebound. : done with language interpreter at bedside. No hemorrhoids or fissures noted. No gross blood on internal rectal exam. Extremities: No tenderness. No bruising. Normal range of motion. Normal sensation. Skin: No rash or redness. Neurological: Cranial nerves II through XII are grossly intact. Normal strength and sensation. Normal cerebellar function The rest of the physical exam is unremarkable Const Vital Signs: 05/16/25 13:56 05/16/25 14:45 05/16/25 15:34 Temperature 98.4 F Temperature Source Oral Pulse Rate 97 80 80 Respiratory Rate 18 18 17 Blood Pressure 160/98 H 139/105 H 141/99 H Blood Pressure Mean (more content not included)... Normal [facility] Gallbladderon 05-16-2025 Gallbladder [facility] Imaging Services [address] [place] [id number] Gallbladder MR#: [id number] Acct: [id number] Name: NORA GRANDE Rep #: [id number] : 1955 F 70 From: Serafin Rubio MD PCP: Dr. Claudine Mallory, DO Status: REG ER Study: Gallbladder Date of Exam: 05/16/25 Exam# [id number] Ordering Dr: Tamara Neal MD PROCEDURE: US GALLBLADDER 05/16/2025 REASON FOR EXAM: DILATED DUCTS ON CT TECHNIQUE: Procedure Code: USGB Modality: US Procedure: GALLBLADDER COMPARISON: Abdominal CT same day 05/16/2025. FINDINGS: Liver: Grossly normal in size. Mild diffuse increased echogenicity of the hepatic parenchyma compatible with fatty infiltration. No suspicious focal lesion. Benign-appearing 10 mm cyst in the right lobe. Gallbladder: Cholelithiasis. No significant wall thickening or pericholecystic fluid. There is mild intra and extrahepatic biliary ductal dilatation. No sonographic Nice's sign was elicited. Common bile duct: Mildly dilated, measuring 7-8 mm in diameter. Pancreas: Mild dilatation of the main pancreatic duct measuring 4 mm. Visualized portions of the pancreatic head/body otherwise unremarkable with no discrete mass lesion. Other: Visualized right kidney is unremarkable. No right upper quadrant ascites. US/Gallbladder IMPRESSION: Cholelithiasis. No evidence for acute cholecystitis. Mild intra and extrahepatic biliary ductal dilatation, and prominence of the main pancreatic duct. No discrete obstructing mass or choledocholithiasis appreciated. MRCP may be helpful. Mild diffuse hepatic steatosis. Small benign-appearing hepatic cysts. Reading Location: [id number] CC: Dr. Tamara Neal MD; Dr. Claudine Mallory DO Angle Roll Operator: Signed Normal [facility] Ketones Test strip Ql (U)Ord ered By: Tamara Neal on 05-16-2025 Ketones Ql (U) Negative Negative [facility] Lipaseon 05-16-2025 Lipase [Catalytic activity/Vol] 18 U/L Normal 13-75 [facility] Comment on above: Result Comment: Plea se note: LIPASE revised reference range effective 22. New Lipase methodology. Expected to produce lower values than the previous assay method. NEW Reference Range: 13 - 75 U/L Performed By: #### L 501.2450, L100.0100, L500.4050 #### [facility] [address] [facility] [place], [place], [id number] Lipase measurementOrdered By : Tamara Neal on 05-16-2025 Lipase [Catalytic activity/Vol] 18 U/L 13-75 [facility] Comment on above: Please note:LIPASE r evised reference range effective 22. New Lipase methodology. Expected to produce lower values than the previous assay method. NEW Reference Range: 13 - 75 U/L Microscopic analysis of urin e for red blood cells (RBC)Ordered By: Tamara Neal on 05-16-2025 Microscopic analysis of urine for red blood cells (RBC) 0-5 SEEN /hpf 0-5 [facility] Mucus LM Ql (Urine sed)Order ed By: Tamara Neal on 05-16-2025 Mucus Ql (Urine sed) 0 SEEN /hpf [facility] Nitrite Test strip Ql (U)Ord ered By: Tamara Neal on 05-16-2025 Nitrite Ql (U) Negative Negative [facility] Protein Test strip Ql (U)Ord ered By: Tamara Neal on 05-16-2025 Protein Ql (U) 30 mg/dl High Negative [facility] Squamous epithelial cells de tection in urine sediment by light microscopyOrdered By: Tamara Neal on 05-16-2025 Epithelial cells.squamous LM Ql (Urine sed) 0-5 SEEN /hpf 5-10 [facility] Stool Occult Blood iFOBon STOB Positive Normal [facility] Comment on above: Performed By: #### M 100.7900 ####[facility] [address] [place], [address] Stool gastrointestinal hemog lobin detection by immunologic methodOrdered By: Tamara Neal on 05-16-2025 Lower GI hemoglobin IA Ql (Stl) Positive Abnormal [facility] Urinalysis, Completeon 05-16 EPI,SQUAMOUS 0-5 SEEN Normal 5-10 [facility] Comment on above: Order Comment: ADRI CTOR TO SPECIFY Performed By: #### L 400.0001 #### [facility] [address] [place], [address] RBC 0-5 SEEN Normal 0-5 [facility] Comment on above: Order Comment: ADRI CTOR TO SPECIFY Performed By: #### L 400.0001 #### [facility] [address] [place], [address] WBC 0-5 SEEN Normal 0-5 [facility] Comment on above: Order Comment: ADRI CTOR TO SPECIFY Performed By: #### L 400.0001 #### [facility] [address] [place], [address] BACTERIA 0 SEEN Normal None Seen [facility] Comment on above: Order Comment: ADRI CTOR TO SPECIFY Performed By: #### L 400.0001 #### [facility] [address] [place], [address] Mucus Ql (Urine sed) 0 SEEN Normal [facility] Comment on above: Order Comment: COLLE CTOR TO SPECIFY Performed By: #### L 400.0001 #### [facility] [address] [place], [address] Urine clarityOrdered By: Maryjane Neal on 05-16-2025 Clarity (U) Clear Clear [facility] Urine color determinationOrd ered By: Tamara Neal on 05-16-2025 Color (U) Yellow Yellow [facility] Urine glucose detectionOrder ed By: Tamara Neal on 05-16-2025 Glucose Ql (U) Normal mg/dl Normal [facility] Urine leukocyte esterase det ection by dipstickOrdered By: Tamara Neal on 05-16-2025 Leukocyte esterase Test strip Ql (U) 25 /ul High Negative [facility] Urine pHOrdered By: Tamara elizabeth on 05-16-2025 pH (U) 6.0 [pH] 5.0 - 8.0 [facility] Urine sediment bacteria coun t by microscopy (number/high power field)Ordered By: Tamara Neal on 05-16-2025 Bacteria LM.HPF (Urine sed) [#/Area] 0 /[HPF] None Seen [facility] Urine specific gravity measu rementOrdered By: Tamara Neal on 05-16-2025 Specific gravity (U) [Rel density] 1.010 1.002-1.030 [facility] Urine urobilinogen measureme ntOrdered By: Tamara Neal on 05-16-2025 Urobilinogen Ql (U) Normal mg/dl Normal [facility] White blood cell countOrdere d By: Tamara Neal on 05-16-2025 White blood cell count 0-5 SEEN /hpf 0-5 [facility] Breast imaging reportOrdered By: Coleen Arizmendi on 03-02-2025 Study report [facility] Imaging Services [address] [place] [address] SCRN MAMM (CAD)W/LISA KEENEAT MR#: [id number] Acct: [id number] Name: NORA GRANDE Rep #: [id number] : 1955 F 70 From: Becky Arizmendi MD PCP: Dr. Claudine Mallory DO Status: REG CLI Study:SCRN MAMM (CAD)W/LISA BILAT Date of Exa m: 03/02/25 Exam# [id number] Ordering Dr: Claudine Mallroy DO EXAM: SCRN MAMM (CAD)W/LISA BILAT DATE: 03/02/2025 CLINICAL HISTORY: F, Age 70 y/o , SCREENING TECHNIQUE: SCRN MAMM (CAD)W/LISA BILAT COMPARISON: Prior exam(s) dated 10/21/2023, 04/27/2023. FINDINGS: TISSUE DENSITY: There are scattered areas of fibroglandular density. Bilateral Breast Mammographic Findings: No significant masses, calcifications or other abnormalities are identified. BI/SCRN MAMM (CAD)W/LISA BILAT IMPRESSION: There is no mammographic evidence of malignancy. OVERALL FINAL ASSESSMENT BI-RADS 1: NEGATIVE. RECOMMENDATION: Routine annual follow-up in 1 Year A letter with findings and recommendations will be mailed to the patient. Reading Location: [facility] CC: Dr. Claudine Mallory DO ~ Angle Roll Operator: Signed [facility] SCRN MAMM (CAD)W/LISA BILATo n 03-02-2025 SCRN MAMM (CAD)W/LISA BILAT [facility] Imaging Services [address] [place], [place] [address] SCRN MAMM (CAD)W/LISA BILAT MR#: [id number] Acct: [id number] Name: NORA GRANDE Rep #: [id number] : 1955 F 70 From: Coleen Arizmendi MD PCP: Dr. Claudine Mallory DO Status: REG CLI Study: SCRN MAMM (CAD)W/LISA BILAT Date of Exam: 02/15 02/09 Exam# [id number] Ordering Dr: Claudine Mallory DO EXAM: SCRN MAMM (CAD)W/LISA BILAT DATE: 03/02/2025 CLINICAL HISTORY: F, Age 70 y/o , SCREENING TECHNIQUE: SCRN MAMM (CAD)W/LISA BILAT COMPARISON: Prior exam(s) dated 10/21/2023, 04/27/2023. FINDINGS: TISSUE DENSITY: There are scattered areas of fibroglandular density. Bilateral Breast Mammographic Findings: No significant masses, calcifications or other abnormalities are identified. BI/SCRN MAMM (CAD)W/LISA BILAT IMPRESSION: There is no mammographic evidence of malignancy. OVERALL FINAL ASSESSMENT BI-RADS 1: NEGATIVE. RECOMMENDATION: Routine annual follow-up in 1 Year A letter with findings and recommendations will be mailed to the patient. Reading Location: [id number] CC: Dr. Claudine Mallory, Angle Roll Operator: Signed Normal [facility] Pulmonary Visit Reporton Pulmonary Visit Report [facility] Pulmonary Medicine of [address] [place] [address] OFFICE VISIT Date of Service: 11/02/24 MR#: [id number] Acct: [id number] Name: NORA GRANDE Rep #: [id number] : 1955 Provider: FEDERICO Hatfield Age/Sex: 69/F [facility] Status: Signed Assessment and Plan Assessment and Plan (1) Stage 2 moderate COPD by GOLD classification: Status: Chronic Plan: Stable, she does not appear to be an exacerbation of COPD today. No need for prednisone or antibiotic. Continue current maintenance medication, symptomatically controlled with the use of Trelegy. No additional testing at this time. Contact the office for any new or worsening symptoms. An acute visit and typically be arranged within 1-2 days. Follow-up in 6 months. (2) Smoking greater than 30 pack years: Status: Chronic Plan: Encourage ongoing smoking cessation. The patient remains appropriate for repeat LDCT now, ordered accordingly. If test results only require a repeat LDCT in 12 months they can be discussed by phone. However, if test results require additional imaging of some sort or intervention the patient will be contacted to set up an office visit to discuss test results. Orders: Orders Low Dose CT Lung Screening Today F17.200 - Nicotine dependence, unspecified, uncomplicated, F17.210 - Nicotine dependence, cigarettes, uncomplicated Plan Details Follow Up: 6 Months HPI 4 M FU Chief Complaint: Routine follow-up HPI Comments Details: This patient presents to the office today for follow-up of her COPD. She is ambulatory and currently on room air. She has not recently been seen in the ED or urgent care for any respiratory illness. She has not required any antibiotics or prednisone for any breathing problems. She is compliant with the use of Trelegy 1 puff daily. She does report rinsing her mouth out after each use. She denies any medication side effect such as sore throat or thrush. She has not recently needed her albuterol rescue inhaler. She continues complete smoking cessation, if you recall she has a greater than 15-zeai-trul history. However, she is vaping multiple times daily. The patient admits that she was not aware she was supposed to have a CAT scan of the chest. She often times ignores the phone calls if she does not recognize the caller ID. She also turns her volume all the way down and misses phone calls. She denies any difficulty with shortness of breath. She denies any cough, sputum production or hemoptysis. She has not had any wheezing, chest tightness, chest pain or palpitations. She also denies any fever, chills or body aches. Intake Vital Signs 10/27/24 08:02 11/02/24 07:49 Height 5 ft 2 in 5 ft 2 in Weight: 142 lb BMI 25.9 BP 140/95 H Blood Pressure Location Lt brachial Position Sitting Respiration 18 Pulse 81 Pulse Source Monitor Temp 97.3 F L Temperature Source Temporal Artery Pulse Oximetry (%) 99 Oxygen Delivery Method room air Intake Visit Reasons: 4 M FU Chief Complaint: SOB Office Receptionist Required: No Accompanied by: Self Allergies codeine Allergy (Verified 11/02/24 14:45) Unknown ciprofloxacin (From Cipro) Adverse Reaction (Verified 11/02/24 14:45) Vomiting Medications ???Medication ???Instructions ???Recorded ???Confirmed ???Type clonazepam 1 mg tablet 1 mg PO QHS 10/18/16 11/02/24 Hist ory multivitamin,tx-iron-m inerals 27 1 tab PO DAILY 10/18/16 11/02/24 H istory mg-0.4 mg tablet buspirone 15 mg tablet mg PO BID 10/09/23 11/02/24 Histor y cyclobenzaprine 10 mg tablet mg PO BID 10/09/23 11/02/24 Histor y olanzapine 15 mg tablet mg PO QHS 10/09/23 11/02/24 Histor y duloxetine 30 mg capsule,delayed 30 mg PO QDAY 10/29/23 11/02/24 Hi story release duloxetine 60 mg capsule,delayed 60 mg PO QDAY 10/29/23 11/02/24 Hi story release losartan 50 mg tablet 50 mg PO QDAY 10/29/23 11/02/24 Hi story potassium chloride 20 mEq 20 meq PO TID 10/29/23 11/02/24 Hi story tablet,extended release(part/cryst) albuterol sulfate 90 mcg/actuation 2 puff inhalation Q6H PRN 11/02/24 Rx aerosol inhaler shortness of breath or wheezing #18 grams meclizine 25 mg tablet 50 mg PO BID 07/02/24 11/02/24 His tory fluticasone fur. 200 mcg-umeclid 1 inh inhalation DAILY #60 ea 07/1911/02/24 Rx 62.5 mcg-vilant 25 mcg inhalat.powder (Trelegy Ellipta) Have you fallen in the past year?: No PFSH Medical History Hx of emotional problems Hormone deficiency Back problem HTN (hypertension) History of skin cancer CHF (congestive heart failure) Fibromyalgia Tobacco use Surgical History (Reviewed 11/02/24 @ 14:49 by Vanesa Hatfield TESTER WASTE DISPOSAL LEAKAGE, TESTER WASTE DISPOSAL LEAKAGE-C) History of left hip replacement (more content not included)... Normal [facility] Pulmonary Visit Reporton Pulmonary Visit Report [facility] of [place] [address] [place] [address] OFFICE VISIT Date of Service: 07/02/24 MR#: [id number] Acct: [id number] Name: NORA GRANDE Rep #: [id number] : 1955 Provider: FEDERICO Hatfield Age/Sex: 69/F Location: [facility] Status: Signed with Addenda ADDENDUM by Tracie Vieira on 08/17/24 at 1109 Office Procedure Documentation entered by Tracie Vieira 08/17/24 11:09: Smoking Cessation Smoking Cessation 07/02/24. Encourage ongoing smoking cessation. The patient remains appropriate for repeat LDCT which is due in September 2024, ordered accordingly. Time Spent 3-10 minutes: Yes Date cc: Dr. Claudine Mallory, DO * Signed Assessment and Plan Assessment and Plan (1) Stage 2 moderate COPD by GOLD classification: Status: Chronic Plan: Stable, she does not appear to be an exacerbation of COPD today. No need for prednisone or antibiotic. Continue current maintenance medication, symptomatically controlled with the use of Trelegy. No additional testing at this time. Contact the office for any new or worsening symptoms. An acute visit and typically be arranged within 1-2 days. Follow-up in October. (2) JORGE (obstructive sleep apnea): Status: Chronic Plan: Successfully ruled out. The patient feels as though the most recent sleep study was an adequate representation of her actual sleep. (3) Smoking greater than 30 pack years: Status: Chronic Comment: Low-dose CT scan due September 2024 Plan: Encourage ongoing smoking cessation. The patient remains appropriate for repeat LDCT which is due in September 2024, ordered accordingly. Plan Details Follow Up: 10/16/24 ([facility]) HPI HPI Comments Details: This patient presents to the office today for routine follow-up. She is ambulatory and currently on room air. She has not recently been seen in the ED or urgent care for any respiratory illness. She has not required any antibiotics or prednisone for any breathing problems. She is compliant with the use of Trelegy 1 puff daily. She does report rinsing her mouth out after each use. She denies any medication side effect such as sore throat or thrush. She has not recently needed her albuterol rescue inhaler. She admits she has started smoking again. She sometimes goes days or weeks in between smoking. She socially smokes and will bum one off of friends. She is vaping daily. The patient reports that she feels rested when she wakes up in the morning. She does not require naps and denies nodding off to sleep unintentionally. She has about 1 episode of nocturia nightly. She does have very bad dry mouth but she denies any morning headaches. She also reports that she never sleeps on her back. She denies any difficulty with shortness of breath. She denies any cough, sputum production or hemoptysis. She has not had any wheezing, chest tightness, chest pain or palpitations. She also denies any fever, chills or body aches. Test results personally viewed with patient: Polysomnogram completed on November 10, 2023. Overall AHI was 0.4 events per hour. Impression: This study does not meet the criteria used to define the presence of sleep apnea. It was noted that she almost exclusively slept nonsupine. Decreased sleep efficiency. No REM sleep recorded. Recommendation: Follow-up with referring physician, if clinically indicated evaluation for restless leg syndrome. Intake Vital Signs 10/29/23 07:17 07/02/24 07:30 Height 5 ft 2 in 5 ft 2 in Weight: 147 lb 142 lb BMI 26.9 25.9 BP 183/105 H 152/107 H Blood Pressure Location Rt brachial Lt brachial Position Sitting Sitting Respiration 18 20 H Pulse 59 L 52 L Pulse Source Monitor Monitor Temp 95.3 F L 98.0 F Temperature Source Temporal Artery Temporal Artery Pulse Oximetry (%) 99 Oxygen Delivery Method room air room air Comment has not taken BP med yet. Intake Visit Reasons: 8 M FU Chief Complaint: SOB Office Receptionist Required: No Accompanied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 (Bld) [Mass/Vol] 12.5 g/dL Normal 11.5-15.5 [facility] Comment on above: Order Comment: Speci men Type: BLOOD SPECIMEN Performed By: #### 5 8410-2 ####[facility]ATORYCLIA [id number] [place] [address] MCH (RBC) [Entitic mass] 28.7 pg Normal 26.0-34.0 [facility] Comment on above: Order Comment: Speci men Type: BLOOD SPECIMEN Performed By: #### 5 8410-2 ####[facility]ATORYCLIA [id number] [place] [address] MCHC (RBC) [Mass/Vol] 31.1 g/dL Normal 30.5-36.0 [facility] Comment on above: Order Comment: Speci men Type: BLOOD SPECIMEN Performed By: #### 5 8410-2 ####[facility]ATORYCLIA [id number] [place] [address] MCV (RBC) [Entitic vol] 92.4 fL Normal 80.0-100.0 [facility] Comment on above: Order Comment: Speci men Type: BLOOD SPECIMEN Performed By: #### 5 8410-2 ####[facility]ATORYCLIA [id number] [place] [address] Nucleated RBC (Bld) [#/Vol] 10*3/uL Normal <0.01 [facility] Comment on above: Order Comment: Speci men Type: BLOOD SPECIMEN Performed By: #### 5 8410-2 ####[facility]ATORYCLIA [id number] [place] [address] Platelet mean volume (Bld) [Entitic vol] 10.4 fL Normal 9.0-12.7 [facility] Comment on above: Order Comment: Speci men Type: BLOOD SPECIMEN Performed By: #### 5 8410-2 ####[facility]ATORYCLIA [id number] [place] [address] Platelets (Bld) [#/Vol] 534 10*3/uL High 150-400 [facility] Comment on above: Order Comment: Speci men Type: BLOOD SPECIMEN Performed By: #### 5 8410-2 ####[facility]ATORYCLIA [id number] [place] [address] RBC (Bld) [#/Vol] 4.35 10*6/uL Normal 3.90-5.20 [facility] Comment on above: Order Comment: Speci men Type: BLOOD SPECIMEN Performed By: #### 5 8410-2 ####[facility]ATORYCLIA [id number] [place] [address] WBC (Bld) [#/Vol] 15.41 10*3/uL High 3.70-11.00 [facility] Comment on above: Order Comment: Speci men Type: BLOOD SPECIMEN Performed By: #### 5 8410-2 ####[facility]ATORYCLIA [id number] [place] [address] NURSING PROGon 2021 NURSING PROG Normal [facility] NUTRITIONon 2021 NUTRITION Normal [facility] OPERATIVE NOon 2021 OPERATIVE NO Normal [facility] SARS-CoV-2 RNA Resp Ql LAVELL+p robeon 2021 SARS-CoV-2 (COVID-19) RNA LAVELL+probe Ql (Resp) COVID 19 RESULT: SARS-CoV-2 (Agent of COVID-19) Not Detected by PCR. This test has been authorized by FDA under an Emergency Use Authorization (EUA) Normal [facility] Comment on above: Performed By: #### 9 4500-6 ####[facility]ATORYCLIA [id number] [place] [address] SURGICAL PATHOLOGYon 021 CASE REPORT Normal [facility] Comment on above: Order Comment: Speci men Type: SPECIMEN FROM BONE Result Comment: Surg ical Pathology Report Case: [id number] Provider: Ranjan Herrera MD Collected: 2021 02:53 PMOrdering Location: [place] [facility] Received: 01/18/2021 07:00 AMPathologist: NURA Bobbypecimen: FEMORAL HEAD LEFT Performed By: #### S ####[facility]ORATORYCLIA [id number] [place] [address] FINAL DIAGNOSIS Normal [facility] Comment on above: Order Comment: Speci men Type: SPECIMEN FROM BONE Result Comment: Femo ral head, left hip, hip arthroplasty - Fragmentation of the bony trabeculae with hemorrhage into the medullary cavity and soft tissue, consistent with recent fracture.- No malignancy is seen. Performed By: #### S ####[facility]ORATORYCLIA [id number] [place] [address] FINAL PERFORMING LAB Normal [facility] Comment on above: Order Comment: Speci men Type: SPECIMEN FROM BONE Result Comment: Diag nostic interpretation performed at [facility], [address] [place] [address] CLIA# [id number] Director: Ozzy Grant M.D. Performed By: #### S ####[facility]ORATORYCLIA [id number] [place] [id number] GROSS DESCRIPTION Normal [facility] Comment on above: Order Comment: Speci men Type: SPECIMEN FROM BONE Result Comment: A. F EMORAL HEAD LEFT.Received in formalin labeled left femoral head is a fragmented femoral head and neck aggregating to 8.0 x 4.0 x 3.0 cm. The articular surface appears slightly granular with no definitive eburnation or osteophyte formation. Sectioning does reveal a zone of dark red hemorrhage representing a probable fracture site. A previous biopsy site is not identified. Necrotic bone is not seen. Supervisor Liquid Yeast sections are submitted in formalin as follows: A1 soft tissue, A2 bone after a period of decalcification.Gross examination performed at [facility], [address] [place] [address] CLIA# [id number] January 18, 2021 10:29 AM Performed By: #### S ####[facility]ORATORYCLIA [id number] [place] [id number] THERAPY NTon 2021 THERAPY NT Normal [facility] TYPE AND SCREENon 2021 ABO A Normal [facility] Comment on above: Order Comment: Speci men Type: BLOOD SPECIMEN Performed By: #### T SCR, %MADI ####[facility] BANKCLIA [id number] [place] [address] HISTORICAL AB SCR STATUS Negative [facility] Comment on above: Order Comment: Speci men Type: BLOOD SPECIMEN Performed By: #### T SCR, %MADI ####[facility]ANKCLIA [id number] [place] [id number] Rh Nom (Bld) Positive [facility] Comment on above: Order Comment: Speci men Type: BLOOD SPECIMEN Performed By: #### T SCR, %MADI ####[facility] BANKCLIA [id number] [place] [address] TYPE AND SCREEN EXPIRATION 01/20/2021 23:59 Normal [facility] Comment on above: Order Comment: Speci men Type: BLOOD SPECIMEN Performed By: #### T SCR, %MADI ####[facility] BANKCLIA [id number] [place] [address] XR HIP 1V LTon 2021 XR HIP 1V LT Normal [facility] XR PELVIS 1V APon 2021 XR PELVIS 1V AP Normal [facility] Basic metabolic 2000 panelon 01-16-2021 Anion gap [Moles/Vol] 11 mmol/L Normal 9-18 [facility] Comment on above: Order Comment: Speci men Type: BLOOD SPECIMEN Performed By: #### 2 4321-2 ####[facility]ATORYCLIA [id number] [place] [address] Calcium [Mass/Vol] 9.5 mg/dL Normal 8.5-10.2 [facility] Comment on above: Order Comment: Speci men Type: BLOOD SPECIMEN Performed By: #### 2 4321-2 ####[facility]ATORYCLIA [id number] [place] [place] [address] Chloride [Moles/Vol] 98 mmol/L Normal 97-105 [facility] Comment on above: Order Comment: Speci men Type: BLOOD SPECIMEN Performed By: #### 2 4321-2 ####[facility]ORATORYCLIA [id number] [place] [address] CO2 [Moles/Vol] 26 mmol/L Normal 22-30 [facility] Comment on above: Order Comment: Speci men Type: BLOOD SPECIMEN Performed By: #### 2 4321-2 ####[facility]ATORYCLIA [id number] [place] [address] Creatinine [Mass/Vol] 0.76 mg/dL Normal 0.58-0.96 [facility] Comment on above: Order Comment: Speci men Type: BLOOD SPECIMEN Performed By: #### 2 4321-2 ####[facility]ATORYCLIA [id number] [place] [address] GFR/1.73 sq M.predicted MDRD (S/P/Bld) [Vol rate/Area] mL/min/{1.73_m2} Normal [facility] Comment on above: Order Comment: Speci men Type: BLOOD SPECIMEN Result Comment: >60e GFR (Estimated GFR) Units of measure: mL/min/1.73 meters squaredeGFR is derived from the reexpressed MDRD Study equation using the following parameters: serum creatinine, age, gender and race. The creatinine assay has been calibrated to be traceable to IDMS. An eGFR <60 mL/min/1.73m2 for >3 months is consistent with chronic kidney disease. Refer to KDOQI guidelines for clinical interpretation. In patients with unstable renal function, e.g. those with acute kidney injury, the eGFR may not accurately reflect actual GFR. Performed By: #### 2 4321-2 ####[facility]ATORYCLIA [id number] [place] [address] Glucose [Mass/Vol] 124 mg/dL High 74-99 [facility] Comment on above: Order Comment: Speci men Type: BLOOD SPECIMEN Result Comment: The [employer] Diabetes [employer] (ADA) provides guidance for cutoff values for fasting glucose and random glucose. The ADA defines fasting as no caloric intake for at least 8 hours. Fasting plasma glucose results between 100 to 125 mg/dL indicate increased risk for diabetes (prediabetes).Fasting plasma glucose results greater than or equal to 126 mg/dL meet the criteria for diagnosis of diabetes. In the absence of unequivocal hyperglycemia, results should be confirmed by repeat testing. In a patient with classic symptoms of hyperglycemia or hyperglycemic crisis, random plasma glucose results greater than or equal to 200 mg/dL meet the criteria for diagnosis of diabetes.Reference: Standards of Medical Care in Diabetes 2016, [employer]. Diabetes Care. 2016.39(Suppl 1). Performed By: #### 2 4321-2 ####[facility]ATORYCLIA [id number] [place] [address] Potassium [Moles/Vol] 4.2 mmol/L Normal 3.7-5.1 [facility] Comment on above: [facility] Performed By: #### 2 4321-2 ####[facility]ATORYCLIA [id number] [place] [address] Sodium [Moles/Vol] 135 mmol/L Low 136-144 [facility] Comment on above: Order Comment: Speci men Type: BLOOD SPECIMEN Performed By: #### 2 4321-2 ####[facility]ATORYCLIA [id number] [place] [address] Urea nitrogen [Mass/Vol] 17 mg/dL Normal 7-21 [facility] Comment on above: Order Comment: Speci men Type: BLOOD SPECIMEN Performed By: #### 2 4321-2 ####[facility]ATORYCLIA [id number] [place] [address] CASE MANAGEMon 01-16-2021 CASE MANAGEM Normal [facility] CBC panel Auto (Bld)on 01-16 Erythrocyte distribution width (RBC) [Ratio] 16.4 % High 11.5-15.0 [facility] Comment on above: Order Comment: Speci men Type: BLOOD SPECIMEN Performed By: #### 5 8410-2 ####[facility]ATORYCLIA [id number] [place] [address] Hematocrit (Bld) [Volume fraction] 40.9 % Normal 36.0-46.0 [facility] Comment on above: Order Comment: Speci men Type: BLOOD SPECIMEN Performed By: #### 5 8410-2 ####[facility]ORYCLIA [id number] [place] [address] Hemoglobin (Bld) [Mass/Vol] 12.9 g/dL Normal 11.5-15.5 [facility] Comment on above: Order Comment: Speci men Type: BLOOD SPECIMEN Performed By: #### 5 8410-2 ####[facility]ORYCLIA [id number] [place] [address] MCH (RBC) [Entitic mass] 28.5 pg Normal 26.0-34.0 [facility] Comment on above: Order Comment: Speci men Type: BLOOD SPECIMEN Performed By: #### 5 8410-2 ####[facility]ATORYCLIA [id number] [place] [address] MCHC (RBC) [Mass/Vol] 31.5 g/dL Normal 30.5-36.0 [facility] Comment on above: Order Comment: Speci men Type: BLOOD SPECIMEN Performed By: #### 5 8410-2 ####[facility]ORYCLIA [id number] [place] [address] MCV (RBC) [Entitic vol] 90.3 fL Normal 80.0-100.0 [facility] Comment on above: Order Comment: Speci men Type: BLOOD SPECIMEN Performed By: #### 5 8410-2 ####[facility]ORYCLIA [id number] [place] [address] Nucleated RBC (Bld) [#/Vol] 10*3/uL Normal <0.01 [facility] Comment on above: Order Comment: Speci men Type: BLOOD SPECIMEN Performed By: #### 5 8410-2 ####[facility]ORYCLIA [id number] [place] [address] Platelet mean volume (Bld) [Entitic vol] 10.7 fL Normal 9.0-12.7 [facility] Comment on above: Order Comment: Speci men Type: BLOOD SPECIMEN Performed By: #### 5 8410-2 ####[facility]ATORYCLIA [id number] [place] [address] Platelets (Bld) [#/Vol] 651 10*3/uL High 150-400 [facility] Comment on above: Order Comment: Speci men Type: BLOOD SPECIMEN Performed By: #### 5 8410-2 ####[facility]ATORYCLIA [id number] [place] [address] RBC (Bld) [#/Vol] 4.53 10*6/uL Normal 3.90-5.20 [facility] Comment on above: Order Comment: Speci men Type: BLOOD SPECIMEN Performed By: #### 5 8410-2 ####[facility]ORYCLIA [id number] [place] [address] WBC (Bld) [#/Vol] 16.49 10*3/uL High 3.70-11.00 [facility] Comment on above: Order Comment: Speci men Type: BLOOD SPECIMEN Performed By: #### 5 8410-2 ####[facility]ATORYCLIA [id number] [place] [address] Basic metabolic 2000 panelon 01-15-2021 Anion gap [Moles/Vol] 8 mmol/L Low 9-18 [facility] Comment on above: Order Comment: Speci men Type: BLOOD SPECIMEN Performed By: #### 2 4321-2 ####[facility]ATORYCLIA [id number] [place] [address] Calcium [Mass/Vol] 9.3 mg/dL Normal 8.5-10.2 [facility] Comment on above: Order Comment: Speci men Type: BLOOD SPECIMEN Performed By: #### 2 4321-2 ####[facility]ORYCLIA [id number] [place] [address] Chloride [Moles/Vol] 99 mmol/L Normal 97-105 [facility] Comment on above: Order Comment: Speci men Type: BLOOD SPECIMEN Performed By: #### 2 4321-2 ####[facility]ORYCLIA [id number] [place] [address] CO2 [Moles/Vol] 27 mmol/L Normal 22-30 [facility] Comment on above: Order Comment: Speci men Type: BLOOD SPECIMEN Performed By: #### 2 4321-2 ####[facility]ATORYCLIA [id number] [place] [address] Creatinine [Mass/Vol] 0.78 mg/dL Normal 0.58-0.96 [facility] Comment on above: Order Comment: Speci men Type: BLOOD SPECIMEN Performed By: #### 2 4321-2 ####[facility]ATORYCLIA [id number] [place] [address] GFR/1.73 sq M.predicted MDRD (S/P/Bld) [Vol rate/Area] mL/min/{1.73_m2} Normal [facility] Comment on above: Order Comment[facility] Type: BLOOD SPECIMEN Result Comment: >60e GFR (Estimated GFR) Units of measure: mL/min/1.73 meters squaredeGFR is derived from the reexpressed MDRD Study equation using the following parameters: serum creatinine, age, gender and race. The creatinine assay has been calibrated to be traceable to IDMS. An eGFR <60 mL/min/1.73m2 for >3 months is consistent with chronic kidney disease. Refer to KDOQI guidelines for clinical interpretation. In patients with unstable renal function, e.g. those with acute kidney injury, the eGFR may not accurately reflect actual GFR. Performed By: #### 2 4321-2 ####[facility]ATORYCLIA [id number] [place] [address] Glucose [Mass/Vol] 148 mg/dL High 74-99 [facility] Comment on above: Order Comment: [facility] Type: BLOOD SPECIMEN Result Comment: The [employer] Diabetes Association (ADA) provides guidance for cutoff values for fasting glucose and random glucose. The ADA defines fasting as no caloric intake for at least 8 hours. Fasting plasma glucose results between 100 to 125 mg/dL indicate increased risk for diabetes (prediabetes).Fasting plasma glucose results greater than or equal to 126 mg/dL meet the criteria for diagnosis of diabetes. In the absence of unequivocal hyperglycemia, results should be confirmed by repeat testing. In a patient with classic symptoms of hyperglycemia or hyperglycemic crisis, random plasma glucose results greater than or equal to 200 mg/dL meet the criteria for diagnosis of diabetes.Reference: Standards of Medical Care in Diabetes 2016, [employer]. Diabetes Care. 2016.39(Suppl 1). Performed By: #### 2 4321-2 ####[facility]ORATORYCLIA [id number] [place] [address] Potassium [Moles/Vol] 4.0 mmol/L Normal 3.7-5.1 [facility] Comment on above: Order Comment: [facility] Type: BLOOD SPECIMEN Performed By: #### 2 4321-2 ####[facility]ATORYCLIA [id number] [place] [address] Sodium [Moles/Vol] 134 mmol/L Low 136-144 [facility] Comment on above: Order Comment: Speci men Type: BLOOD SPECIMEN Performed By: #### 2 4321-2 ####[facility]ATORYCLIA [id number] [place] [address] Urea nitrogen [Mass/Vol] 20 mg/dL Normal 7-21 [facility] Comment on above: Order Comment: Speci men Type: BLOOD SPECIMEN Performed By: #### 2 4321-2 ####[facility]ATORYCLIA [id number] [place] [address] CBC panel Auto (Bld)on 01-15 Erythrocyte distribution width (RBC) [Ratio] 16.4 % High 11.5-15.0 [facility] Comment on above: Order Comment: Speci men Type: BLOOD SPECIMEN Performed By: #### 5 8410-2 ####[facility]ATORYCLIA [id number] [place] [address] Hematocrit (Bld) [Volume fraction] 40.7 % Normal 36.0-46.0 [facility] Comment on above: Order Comment: Speci men Type: BLOOD SPECIMEN Performed By: #### 5 8410-2 ####[facility]ATORYCLIA [id number] [place] [address] Hemoglobin (Bld) [Mass/Vol] 12.9 g/dL Normal 11.5-15.5 [facility] Comment on above: Order Comment: Speci men Type: BLOOD SPECIMEN Performed By: #### 5 8410-2 ####[facility]ATORYCLIA [id number] [place] [address] MCH (RBC) [Entitic mass] 28.6 pg Normal 26.0-34.0 [facility] Comment on above: Order Comment: Speci men Type: BLOOD SPECIMEN Performed By: #### 5 8410-2 ####[facility]ATORYCLIA [id number] [place] [address] MCHC (RBC) [Mass/Vol] 31.7 g/dL Normal 30.5-36.0 [facility] Comment on above: Order Comment: Speci men Type: BLOOD SPECIMEN Performed By: #### 5 8410-2 ####[facility]ORYCLIA [id number] [place] [address] MCV (RBC) [Entitic vol] 90.2 fL Normal 80.0-100.0 [facility] Comment on above: Order Comment: Speci men Type: BLOOD SPECIMEN Performed By: #### 5 8410-2 ####[facility]ORYCLIA [id number] [place] [address] Nucleated RBC (Bld) [#/Vol] 10*3/uL Normal <0.01 [facility] Comment on above: Order Comment: Speci men Type: BLOOD SPECIMEN Performed By: #### 5 8410-2 ####[facility]ORYCLIA [id number] [place] [address] Platelet mean volume (Bld) [Entitic vol] 10.4 fL Normal 9.0-12.7 [facility] Comment on above: Order Comment: Speci men Type: BLOOD SPECIMEN Performed By: #### 5 8410-2 ####[facility]ORYCLIA [id number] [place] [address] Platelets (Bld) [#/Vol] 810 10*3/uL High 150-400 [facility] Comment on above: Order Comment: Speci men Type: BLOOD SPECIMEN Performed By: #### 5 8410-2 ####[facility]ORYCLIA [id number] [place] [address] RBC (Bld) [#/Vol] 4.51 10*6/uL Normal 3.90-5.20 [facility] Comment on above: Order Comment: Speci men Type: BLOOD SPECIMEN Performed By: #### 5 8410-2 ####[facility]ORYCLIA [id number] [place] [address] WBC (Bld) [#/Vol] 15.54 10*3/uL High 3.70-11.00 [facility] Comment on above: Order Comment: Speci men Type: BLOOD SPECIMEN Performed By: #### 5 8410-2 ####[facility]ATORYCLIA [id number] [place] [address] CT LUMBAR SPINE W RECON DATA -NBon 01-15-2021 CT LUMBAR SPINE W RECON DATA -NB Normal [facility] THERAPY NTon 01-15-2021 THERAPY NT Normal [facility] ALLIED HEALTHon 01-14-2021 ALLIED HEALTH Normal [facility] ALLIED HEALTH Normal [facility] ANES POSTPROC EVALon 021 ANES POSTPROC EVAL Normal [facility] ANES PRE-OPon 01-14-2021 ANES PRE-OP Normal [facility] BRIEF OP NOTon 01-14-2021 BRIEF OP NOT Normal [facility] Basic metabolic 2000 panelon 01-14-2021 Anion gap [Moles/Vol] 9 mmol/L Normal 9-18 [facility] Comment on above: Order Comment: Speci men Type: BLOOD SPECIMEN Performed By: #### 2 4321-2 ####[facility]ORYCLIA [id number] [place] [address] Calcium [Mass/Vol] 9.5 mg/dL Normal 8.5-10.2 [facility] Comment on above: Order Comment: Speci men Type: BLOOD SPECIMEN Performed By: #### 2 4321-2 ####[facility]ORYCLIA [id number] [place] [address] Chloride [Moles/Vol] 99 mmol/L Normal 97-105 [facility] Comment on above: Order Comment: Speci men Type: BLOOD SPECIMEN Performed By: #### 2 4321-2 ####[facility]ORYCLIA [id number] [place] [address] CO2 [Moles/Vol] 26 mmol/L Normal 22-30 [facility] Comment on above: Order Comment: Speci men Type: BLOOD SPECIMEN Performed By: #### 2 4321-2 ####[facility]ORYCLIA [id number] [place] [address] Creatinine [Mass/Vol] 0.77 mg/dL Normal 0.58-0.96 [facility] Comment on above: Order Comment: Speci men Type: BLOOD SPECIMEN Performed By: #### 2 4321-2 ####[facility]ATORYCLIA [id number] [place] [address] GFR/1.73 sq M.predicted MDRD (S/P/Bld) [Vol rate/Area] mL/min/{1.73_m2} Normal [facility] Comment on above: Order Comment: Speci [facility] Type: BLOOD SPECIMEN Result Comment: >60e GFR (Estimated GFR) Units of measure: mL/min/1.73 meters squaredeGFR is derived from the reexpressed MDRD Study equation using the following parameters: serum creatinine, age, gender and race. The creatinine assay has been calibrated to be traceable to IDMS. An eGFR <60 mL/min/1.73m2 for >3 months is consistent with chronic kidney disease. Refer to KDOQI guidelines for clinical interpretation. In patients with unstable renal function, e.g. those with acute kidney injury, the eGFR may not accurately reflect actual GFR. Performed By: #### 2 4321-2 ####[facility]ATORYCLIA [id number] [place] [address] Glucose [Mass/Vol] 170 mg/dL High 74-99 [facility] Comment on above: Order Comment: Speci [facility] Type: BLOOD SPECIMEN Result Comment: The [employer] Diabetes Association (ADA) provides guidance for cutoff values for fasting glucose and random glucose. The ADA defines fasting as no caloric intake for at least 8 hours. Fasting plasma glucose results between 100 to 125 mg/dL indicate increased risk for diabetes (prediabetes).Fasting plasma glucose results greater than or equal to 126 mg/dL meet the criteria for diagnosis of diabetes. In the absence of unequivocal hyperglycemia, results should be confirmed by repeat testing. In a patient with classic symptoms of hyperglycemia or hyperglycemic crisis, random plasma glucose results greater than or equal to 200 mg/dL meet the criteria for diagnosis of diabetes.Reference: Standards of Medical Care in Diabetes 2016, [employer]. Diabetes Care. 2016.39(Suppl 1). Performed By: #### 2 4321-2 ####[facility]ATORYCLIA [id number] [place] [address] Potassium [Moles/Vol] 4.4 mmol/L Normal 3.7-5.1 [facility] Comment on above: Order Comment: Speci men Type: BLOOD SPECIMEN Performed By: #### 2 4321-2 ####[facility]ATORYCLIA [id number] [place] [address] Sodium [Moles/Vol] 134 mmol/L Low 136-144 [facility] Comment on above: Order Comment: Speci men Type: BLOOD SPECIMEN Performed By: #### 2 4321-2 ####[facility]ATORYCLIA [id number] [place] [address] Urea nitrogen [Mass/Vol] 21 mg/dL Normal 7-21 [facility] Comment on above: Order Comment: Speci men Type: BLOOD SPECIMEN Performed By: #### 2 4321-2 ####[facility]ORYCLIA [id number] [place] [address] CBC W Auto Differential pane l (Bld)on 01-14-2021 Basophils (Bld) [#/Vol] 0.13 10*3/uL High <0.11 [facility] Comment on above: Order Comment: Speci men Type: BLOOD SPECIMEN Result Comment: Diff erential confirmed by visual scan of peripheral blood smear slide Performed By: #### 5 7021-8 ####[facility]ATORYCLIA [id number] [place] [address] Basophils/100 WBC (Bld) 0.8 % Normal [facility] Comment on above: Order Comment: Speci men Type: BLOOD SPECIMEN Performed By: #### 5 7021-8 ####[facility]ORYCLIA [id number] [place] [address] Differential cell count method Nom (Bld) Auto Normal [facility] Comment on above: Order Comment: Speci men Type: BLOOD SPECIMEN Performed By: #### 5 7021-8 ####[facility]ORYCLIA [id number] [place] [address] Eosinophils (Bld) [#/Vol] 0.22 10*3/uL Normal <0.46 [facility] Comment on above: Order Comment: Speci men Type: BLOOD SPECIMEN Performed By: #### 5 7021-8 ####[facility]ORYCLIA [id number] [place] [address] Eosinophils/100 WBC (Bld) 1.4 % Normal [facility] Comment on above: Order Comment: Speci men Type: BLOOD SPECIMEN Performed By: #### 5 7021-8 ####[facility]ORYCLIA [id number] [place] [address] Erythrocyte distribution width (RBC) [Ratio] 16.3 % High 11.5-15.0 [facility] Comment on above: Order Comment: Speci men Type: BLOOD SPECIMEN Performed By: #### 5 7021-8 ####[facility]ORYCLIA [id number] [place] [address] Hematocrit (Bld) [Volume fraction] 40.4 % Normal 36.0-46.0 [facility] Comment on above: Order Comment: Speci men Type: BLOOD SPECIMEN Performed By: #### 5 7021-8 ####[facility]ORYCLIA [id number] [place] [address] Hemoglobin (Bld) [Mass/Vol] 13.0 g/dL Normal 11.5-15.5 [facility] Comment on above: Order Comment: Speci men Type: BLOOD SPECIMEN Performed By: #### 5 7021-8 ####[facility]ORYCLIA [id number] [place] [address] IMMATURE GRAN % 0.9 % Normal [facility] Comment on above: Order Comment: Speci men Type: BLOOD SPECIMEN Performed By: #### 5 7021-8 ####[facility]ORYCLIA [id number] [place] [address] IMMATURE GRAN ABS 0.14 k/uL High <0.10 [facility] Comment on above: Order Comment: Speci men Type: BLOOD SPECIMEN Performed By: #### 5 7021-8 ####[facility]ORYCLIA [id number] [place] [address] Lymphocytes (Bld) [#/Vol] 2.59 10*3/uL Normal 1.00-4.00 [facility] Comment on above: Order Comment: Speci men Type: BLOOD SPECIMEN Performed By: #### 5 7021-8 ####[facility] LABORATORYCLIA [id number] [place] [address] Lymphocytes/100 WBC (Bld) 16.4 % Normal [facility] Comment on above: Order Comment: Speci men Type: BLOOD SPECIMEN Performed By: #### 5 7021-8 ####[facility]ORYCLIA [id number] [place] [address] MCH (RBC) [Entitic mass] 28.8 pg Normal 26.0-34.0 [facility] Comment on above: Order Comment: Speci men Type: BLOOD SPECIMEN Performed By: #### 5 7021-8 ####[facility]ORYCLIA [id number] [place] [address] MCHC (RBC) [Mass/Vol] 32.2 g/dL Normal 30.5-36.0 [facility] Comment on above: Order Comment: Speci men Type: BLOOD SPECIMEN Performed By: #### 5 7021-8 ####[facility]ATORYCLIA [id number] [place] [address] MCV (RBC) [Entitic vol] 89.6 fL Normal 80.0-100.0 [facility] Comment on above: Order Comment: Speci men Type: BLOOD SPECIMEN Performed By: #### 5 7021-8 ####[facility]ORYCLIA [id number] [place] [address] Monocytes (Bld) [#/Vol] 1.98 10*3/uL High <0.87 [facility] Comment on above: Order Comment: Speci men Type: BLOOD SPECIMEN Performed By: #### 5 7021-8 ####[facility]ATORYCLIA [id number] [place] [address] Monocytes/100 WBC (Bld) 12.5 % Normal [facility] Comment on above: Order Comment: Speci men Type: BLOOD SPECIMEN Performed By: #### 5 7021-8 ####[facility]ORYCLIA [id number] [place] [address] Neutrophils (Bld) [#/Vol] 10.76 10*3/uL High 1.45-7.50 [facility] Comment on above: Order Comment: Speci men Type: BLOOD SPECIMEN Performed By: #### 5 7021-8 ####[facility]ORYCLIA [id number] [place] [address] Neutrophils/100 WBC (Bld) 68.0 % Normal [facility] Comment on above: Order Comment: Speci men Type: BLOOD SPECIMEN Performed By: #### 5 7021-8 ####[facility]ATORYCLIA [id number] [place] [address] Nucleated RBC (Bld) [#/Vol] 10*3/uL Normal <0.01 [facility] Comment on above: Order Comment: Speci men Type: BLOOD SPECIMEN Performed By: #### 5 7021-8 ####[facility]ORYCLIA [id number] [place] [address] Nucleated RBC/100 WBC (Bld) [Ratio] 0.0 /100 WBC Normal 0.0 [facility] Comment on above: Order Comment: Speci men Type: BLOOD SPECIMEN Performed By: #### 5 7021-8 ####[facility]ORYCLIA [id number] [place] [address] Platelet mean volume (Bld) [Entitic vol] 10.1 fL Normal 9.0-12.7 [facility] Comment on above: Order Comment: Speci men Type: BLOOD SPECIMEN Performed By: #### 5 7021-8 ####[facility]ORYCLIA [id number] [place] [address] Platelets (Bld) [#/Vol] 914 10*3/uL High 150-400 [facility] Comment on above: Order Comment: Speci men Type: BLOOD SPECIMEN Performed By: #### 5 7021-8 ####[facility]ORYCLIA [id number] [place] [address] RBC (Bld) [#/Vol] 4.51 10*6/uL Normal 3.90-5.20 [facility] Comment on above: Order Comment: Speci men Type: BLOOD SPECIMEN Performed By: #### 5 7021-8 ####[facility]ATORYCLIA [id number] [place] [address] WBC (Bld) [#/Vol] 15.82 10*3/uL High 3.70-11.00 [facility] Comment on above: Order Comment: Speci men Type: BLOOD SPECIMEN Performed By: #### 5 7021-8 ####[facility]ATORYCLIA [id number] [place] [address] OPERATIVE NOon 01-14-2021 OPERATIVE NO Normal [facility] PT panel Coag (PPP)on 2020 INR Coag (PPP) [Relative time] 1.0 {INR} Normal 0.9-1.3 [facility] Comment on above: Order Comment: Speci men Type: BLOOD SPECIMEN Result Comment: Elisabeth min K Antagonist (VKA) Therapeutic Range: INR 2 to 3 (Target INR of 2.5)Note: For patients treated with VKA drugs, such as warfarin, the [employer] 2012 Guideline recommends a therapeutic INR range of 2 to 3 (target INR of 2.5). This recommendation includes high-risk patients with antiphospholipid syndrome with previous arterial or venous thromboembolism, current-generation mechanical or bioprosthetic aortic heart valve replacement.Note: Patients with mechanical aortic valve replacement and additional risk factors for thromboembolic events (atrial fibrillation, previous thromboembolism, LV dysfunction, hypercoagulable conditions) or an older generation mechanical AVR (i.e., ball in-Cage) or any mechanical MVR should have a INR therapeutic range of 2.5 to 3.5 (target INR of 3).Adalid GH, et al. Chest 2012, 141:7S-47SNishkarley RA, et al. [facility] 2017, 70: 252-289 Performed By: #### 3 4528-0 ####[facility]ORYCLIA [id number] [place] [address] PT Coag (PPP) [Time] 10.8 s Normal 9.7-13.0 [facility] Comment on above: Order Comment: Speci men Type: BLOOD SPECIMEN Performed By: #### 3 4528-0 ####[facility]ATORYCLIA [id number] [place] [address] SARS-CoV-2 RNA Resp Ql LAVELL+p robeon 01-14-2021 SARS-CoV-2 (COVID-19) RNA LAVELL+probe Ql (Resp) COVID 19 RESULT: SARS-CoV-2 (Agent of COVID-19) Not Detected by PCR. This test has been authorized by FDA under an Emergency Use Authorization (EUA) [facility] Comment on above: Performed By: #### 9 4500-6 ####[facility]ATORYCLIA [id number] [place] [address] THERAPY NTon 01-14-2021 THERAPY NT Normal [facility] TYPE AND SCREENon 01-14-2021 ABO A [facility] Comment on above: Order Comment: Speci men Type: BLOOD SPECIMEN Performed By: #### T SCR ####[facility]ANKCLIA [id number] [place] [address] HISTORICAL AB SCR STATUS Negative [facility] Comment on above: Order Comment: Speci men Type: BLOOD SPECIMEN Performed By: #### T SCR ####[facility]ANKCL[facility] [id number] [place] [address] Rh Nom (Bld) Positive [facility] Comment on above: Order Comment: Speci men Type: BLOOD SPECIMEN Performed By: #### T SCR ####[facility]ANKCLIA [id number] [place] [address] TYPE AND SCREEN EXPIRATION 2021 23:59 [facility] Comment on above: Order Comment: Speci men Type: BLOOD SPECIMEN Performed By: #### T SCR ####[facility]CLIA [id number] [place] [address] XR HIP 3V PELV+ AP/LAT LTon 01-14-2021 XR HIP 3V PELV+ AP/LAT LT Normal [facility] XR PELVIS 1V APon 01-14-2021 XR PELVIS 1V AP Normal [facility] CBC panel Auto (Bld)on 01-13 Erythrocyte distribution width (RBC) [Ratio] 16.3 % High 11.5-15.0 [facility] Comment on above: Order Comment: Speci men Type: BLOOD SPECIMEN Performed By: #### 5 8410-2 ####[facility]ATORYCLIA [id number] [place] [address] Hematocrit (Bld) [Volume fraction] 42.0 % Normal 36.0-46.0 [facility] Comment on above: Order Comment: Speci men Type: BLOOD SPECIMEN Performed By: #### 5 8410-2 ####[facility]ATORYCLIA [id number] [place] [address] Hemoglobin (Bld) [Mass/Vol] 12.9 g/dL Normal 11.5-15.5 [facility] Comment on above: Order Comment: Speci men Type: BLOOD SPECIMEN Performed By: #### 5 8410-2 ####[facility]ATORYCLIA [id number] [place] [address] MCH (RBC) [Entitic mass] 28.0 pg Normal 26.0-34.0 [facility] Comment on above: Order Comment: Speci men Type: BLOOD SPECIMEN Performed By: #### 5 8410-2 ####[facility]ATORYCLIA [id number] [place] [address] MCHC (RBC) [Mass/Vol] 30.7 g/dL Normal 30.5-36.0 [facility] Comment on above: Order Comment: Speci men Type: BLOOD SPECIMEN Performed By: #### 5 8410-2 ####[facility]ORATORYCLIA [id number] [place] [address] MCV (RBC) [Entitic vol] 91.3 fL Normal 80.0-100.0 [facility] Comment on above: Order Comment: Speci men Type: BLOOD SPECIMEN Performed By: #### 5 8410-2 ####[facility]ORYCLIA [id number] [place] [address] Nucleated RBC (Bld) [#/Vol] 10*3/uL Normal <0.01 [facility] Comment on above: Order Comment: Speci men Type: BLOOD SPECIMEN Performed By: #### 5 8410-2 ####[facility]ATORYCLIA [id number] [place] [address] Platelet mean volume (Bld) [Entitic vol] 10.8 fL Normal 9.0-12.7 [facility] Comment on above: Order Comment: Speci men Type: BLOOD SPECIMEN Performed By: #### 5 8410-2 ####[facility]ATORYCLIA [id number] [place] [address] Platelets (Bld) [#/Vol] 1048 10*3/uL High 150-400 [facility] Comment on above: Order Comment: Speci men Type: BLOOD SPECIMEN Result Comment: Plat elet count confirmed by manual review of peripheral blood smear Performed By: #### 5 8410-2 ####[facility]ATORYCLIA [id number] [place] [address] RBC (Bld) [#/Vol] 4.60 10*6/uL Normal 3.90-5.20 [facility] Comment on above: Order Comment: Speci men Type: BLOOD SPECIMEN Performed By: #### 5 8410-2 ####[facility]ORATORYCLIA [id number] [place] [address] WBC (Bld) [#/Vol] 11.66 10*3/uL High 3.70-11.00 [facility] Comment on above: Order Comment: Speci men Type: BLOOD SPECIMEN Performed By: #### 5 8410-2 ####[facility]ORATORYCLIA [id number] [place] [address] CASE MANAGEMon 01-12-2021 CASE MANAGEM Normal [facility] NUTRITIONon 01-12-2021 NUTRITION Normal [facility] THERAPY NTon 01-12-2021 THERAPY NT Normal [facility] THERAPY NT Normal [facility] CASE MANAGEMon 01-11-2021 CASE MANAGEM Normal [facility] CASE MANAGEM Normal [facility] NURSING PROGon 01-11-2021 NURSING PROG Normal [facility] CASE MANAGEMon 01-10-2021 CASE MANAGEM Normal [facility] CBC panel Auto (Bld)on 01-10 Erythrocyte distribution width (RBC) [Ratio] 16.8 % High 11.5-15.0 [facility] Comment on above: Order Comment: Speci men Type: BLOOD SPECIMEN Performed By: #### 5 8410-2 ####[facility]ATORYCLIA [id number] [place] [address] Hematocrit (Bld) [Volume fraction] 38.4 % Normal 36.0-46.0 [facility] Comment on above: Order Comment: Speci men Type: BLOOD SPECIMEN Performed By: #### 5 8410-2 ####[facility]ORATORYCLIA [id number] [place] [address] Hemoglobin (Bld) [Mass/Vol] 12.2 g/dL Normal 11.5-15.5 [facility] Comment on above: Order Comment: Speci men Type: BLOOD SPECIMEN Performed By: #### 5 8410-2 ####[facility]ATORYCLIA [id number] [place] [address] MCH (RBC) [Entitic mass] 28.7 pg Normal 26.0-34.0 [facility] Comment on above: Order Comment: Speci men Type: BLOOD SPECIMEN Performed By: #### 5 8410-2 ####[facility]ORATORYCLIA [id number] [place] [address] MCHC (RBC) [Mass/Vol] 31.8 g/dL Normal 30.5-36.0 [facility] Comment on above: Order Comment: Speci men Type: BLOOD SPECIMEN Performed By: #### 5 8410-2 ####[facility]ORATORYCLIA [id number] [place] [address] MCV (RBC) [Entitic vol] 90.4 fL Normal 80.0-100.0 [facility] Comment on above: Order Comment: Speci men Type: BLOOD SPECIMEN Performed By: #### 5 8410-2 ####[facility]ORATORYCLIA [id number] [place] [address] Nucleated RBC (Bld) [#/Vol] 0.02 10*3/uL High <0.01 [facility] Comment on above: Order Comment: Speci men Type: BLOOD SPECIMEN Performed By: #### 5 8410-2 ####[facility]ORATORYCLIA [id number] [place] [address] Platelet mean volume (Bld) [Entitic vol] 10.9 fL Normal 9.0-12.7 [facility] Comment on above: Order Comment: Speci men Type: BLOOD SPECIMEN Performed By: #### 5 8410-2 ####[facility]ORATORYCLIA [id number] [place] [address] Platelets (Bld) [#/Vol] 1251 10*3/uL High 150-400 [facility] Comment on above: Order Comment: Speci men Type: BLOOD SPECIMEN Performed By: #### 5 8410-2 ####[facility]ATORYCLIA [id number] [place] [address] RBC (Bld) [#/Vol] 4.25 10*6/uL Normal 3.90-5.20 [facility] Comment on above: Order Comment: Speci men Type: BLOOD SPECIMEN Performed By: #### 5 8410-2 ####[facility]ATORYCLIA [id number] [place] [address] WBC (Bld) [#/Vol] 16.61 10*3/uL High 3.70-11.00 [facility] Comment on above: Order Comment: Speci men Type: BLOOD SPECIMEN Performed By: #### 5 8410-2 ####[facility]ORATORYCLIA [id number] [place] [address] NURSING PROGon 01-10-2021 NURSING PROG Normal [facility] THERAPY NTon 01-10-2021 THERAPY NT Normal [facility] Basic metabolic 2000 panelon 01-09-2021 Anion gap [Moles/Vol] 10 mmol/L Normal 9-18 [facility] Comment on above: Order Comment: Speci men Type: BLOOD SPECIMEN Performed By: #### 2 4321-2 ####[facility]ATORYCLIA [id number] [place] [address] Calcium [Mass/Vol] 9.4 mg/dL Normal 8.5-10.2 [facility] Comment on above: Order Comment: Speci men Type: BLOOD SPECIMEN Performed By: #### 2 4321-2 ####[facility]ORATORYCLIA [id number] [place] [address] Chloride [Moles/Vol] 105 mmol/L Normal 97-105 [facility] Comment on above: Order Comment: Speci men Type: BLOOD SPECIMEN Performed By: #### 2 4321-2 ####[facility]ATORYCLIA [id number] [place] [address] CO2 [Moles/Vol] 24 mmol/L Normal 22-30 [facility] Comment on above: Order Comment: Speci men Type: BLOOD SPECIMEN Performed By: #### 2 4321-2 ####[facility]ORATORYCLIA [id number] [place] [address] Creatinine [Mass/Vol] 0.66 mg/dL Normal 0.58-0.96 [facility] Comment on above: Order Comment: Speci men Type: BLOOD SPECIMEN Performed By: #### 2 4321-2 ####[facility]ORATORYCLIA [id number] [place] [address] GFR/1.73 sq M.predicted MDRD (S/P/Bld) [Vol rate/Area] mL/min/{1.73_m2} Normal [facility] Comment on above: Order Comment: Speci men Type: BLOOD SPECIMEN Result Comment: >60e GFR (Estimated GFR) Units of measure: mL/min/1.73 meters squaredeGFR is derived from the reexpressed MDRD Study equation using the following parameters: serum creatinine, age, gender and race. The creatinine assay has been calibrated to be traceable to IDMS. An eGFR <60 mL/min/1.73m2 for >3 months is consistent with chronic kidney disease. Refer to KDOQI guidelines for clinical interpretation. In patients with unstable renal function, e.g. those with acute kidney injury, the eGFR may not accurately reflect actual GFR. Performed By: #### 2 4321-2 ####[facility]ORATORYCLIA [id number] [place] [address] Glucose [Mass/Vol] 154 mg/dL High 74-99 [facility] Comment on above: Order Comment: Speci men Type: BLOOD SPECIMEN Result Comment: The [employer] (ADA) provides guidance for cutoff values for fasting glucose and random glucose. The ADA defines fasting as no caloric intake for at least 8 hours. Fasting plasma glucose results between 100 to 125 mg/dL indicate increased risk for diabetes (prediabetes).Fasting plasma glucose results greater than or equal to 126 mg/dL meet the criteria for diagnosis of diabetes. In the absence of unequivocal hyperglycemia, results should be confirmed by repeat testing. In a patient with classic symptoms of hyperglycemia or hyperglycemic crisis, random plasma glucose results greater than or equal to 200 mg/dL meet the criteria for diagnosis of diabetes.Reference: Standards of Medical Care in Diabetes 2016, [employer]. Diabetes Care. 2016.39(Suppl 1). Performed By: #### 2 4321-2 ####[facility]ORATORYCLIA [id number] [place] [address] Potassium [Moles/Vol] 4.5 mmol/L Normal 3.7-5.1 [facility] Comment on above: Order Comment: Speci men Type: BLOOD SPECIMEN Performed By: #### 2 4321-2 ####[facility]ATORYCLIA [id number] [place] [address] Sodium [Moles/Vol] 139 mmol/L Normal 136-144 [facility] Comment on above: Order Comment: Speci men Type: BLOOD SPECIMEN Performed By: #### 2 4321-2 ####[facility]ORATORYCLIA [id number] [place] [address] Urea nitrogen [Mass/Vol] 35 mg/dL High 7-21 [facility] Comment on above: Order Comment: Speci men Type: BLOOD SPECIMEN Performed By: #### 2 4321-2 ####[facility]ORATORYCLIA [id number] [place] [address] CASE MANAGEMon 01-09-2021 CASE MANAGEM Normal [facility] CBC panel Auto (Bld)on 01-09 Erythrocyte distribution width (RBC) [Ratio] 17.1 % High 11.5-15.0 [facility] Comment on above: Order Comment: Speci men Type: BLOOD SPECIMEN Performed By: #### 5 8410-2 ####[facility]ATORYCLIA [id number] [place] [address] Hematocrit (Bld) [Volume fraction] 38.2 % Normal 36.0-46.0 [facility] Comment on above: Order Comment: Speci men Type: BLOOD SPECIMEN Performed By: #### 5 8410-2 ####[facility]ORATORYCLIA [id number] [place] [address] Hemoglobin (Bld) [Mass/Vol] 12.3 g/dL Normal 11.5-15.5 [facility] Comment on above: Order Comment: Speci men Type: BLOOD SPECIMEN Performed By: #### 5 8410-2 ####[facility]ORATORYCLIA [id number] [place] [address] MCH (RBC) [Entitic mass] 28.8 pg Normal 26.0-34.0 [facility] Comment on above: Order Comment: Speci men Type: BLOOD SPECIMEN Performed By: #### 5 8410-2 ####[facility]ATORYCLIA [id number] [place] [address] MCHC (RBC) [Mass/Vol] 32.2 g/dL Normal 30.5-36.0 [facility] Comment on above: Order Comment: Speci men Type: BLOOD SPECIMEN Performed By: #### 5 8410-2 ####[facility]ATORYCLIA [id number] [place] [address] MCV (RBC) [Entitic vol] 89.5 fL Normal 80.0-100.0 [facility] Comment on above: Order Comment: Speci men Type: BLOOD SPECIMEN Performed By: #### 5 8410-2 ####[facility]ORATORYCLIA [id number] [place] [address] Nucleated RBC (Bld) [#/Vol] 0.02 10*3/uL High <0.01 [facility] Comment on above: Order Comment: Speci men Type: BLOOD SPECIMEN Performed By: #### 5 8410-2 ####[facility]ATORYCLIA [id number] [place] [address] Platelet mean volume (Bld) [Entitic vol] 10.8 fL Normal 9.0-12.7 [facility] Comment on above: Order Comment: Speci men Type: BLOOD SPECIMEN Performed By: #### 5 8410-2 ####[facility]ATORYCLIA [id number] [place] [address] Platelets (Bld) [#/Vol] 1121 10*3/uL High 150-400 [facility] Comment on above: Order Comment: Speci men Type: BLOOD SPECIMEN Result Comment: Plat elet count confirmed by manual review of peripheral blood smear Performed By: #### 5 8410-2 ####[facility]ATORYCLIA [id number] [place] [address] RBC (Bld) [#/Vol] 4.27 10*6/uL Normal 3.90-5.20 [facility] Comment on above: Order Comment: Speci men Type: BLOOD SPECIMEN Performed By: #### 5 8410-2 ####[facility]ATORYCLIA [id number] [place] [address] WBC (Bld) [#/Vol] 17.33 10*3/uL High 3.70-11.00 [facility] Comment on above: Order Comment: Speci men Type: BLOOD SPECIMEN Performed By: #### 5 8410-2 ####[facility]ATORYCLIA [id number] [place] [address] NURSING PROGon 01-09-2021 NURSING PROG Normal [facility] NURSING PROG Normal [facility] NUTRITIONon 01-09-2021 NUTRITION Normal [facility] THERAPY NTon 01-09-2021 THERAPY NT Normal [facility] Basic metabolic 2000 panelon 01-08-2021 Anion gap [Moles/Vol] 11 mmol/L Normal 9-18 [facility] Comment on above: Order Comment: Speci men Type: BLOOD SPECIMEN Performed By: #### Marilyn BERTRAND, 09890-6 ####[facility] LABORATORYCLIA [id number] [place] [address] Calcium [Mass/Vol] 10.0 mg/dL Normal 8.5-10.2 [facility] Comment on above: Order Comment: Speci men Type: BLOOD SPECIMEN Performed By: #### Marilyn BERTRAND, 18684-8 ####[facility]ORATORYCLIA [id number] [place] [address] Chloride [Moles/Vol] 103 mmol/L Normal 97-105 [facility] Comment on above: Order Comment: Speci men Type: BLOOD SPECIMEN Performed By: #### Marilyn BERTRAND, 29504-2 ####[facility]ATORYCLIA [id number] [place] [address] CO2 [Moles/Vol] 24 mmol/L Normal 22-30 [facility] Comment on above: Order Comment: Speci men Type: BLOOD SPECIMEN Performed By: #### Marilyn BERTRAND, 35792-5 ####[facility]ATORYCLIA [id number] [place] [address] Creatinine [Mass/Vol] 0.70 mg/dL Normal 0.58-0.96 [facility] Comment on above: Order Comment: Speci men Type: BLOOD SPECIMEN Performed By: #### Marilyn BERTRAND, 09432-6 ####[facility]ATORYCLIA [id number] [place] [address] GFR/1.73 sq M.predicted MDRD (S/P/Bld) [Vol rate/Area] mL/min/{1.73_m2} Normal [facility] Comment on above: Order Comment: Speci men Type: BLOOD SPECIMEN Result Comment: >60e GFR (Estimated GFR) Units of measure: mL/min/1.73 meters squaredeGFR is derived from the reexpressed MDRD Study equation using the following parameters: serum creatinine, age, gender and race. The creatinine assay has been calibrated to be traceable to IDMS. An eGFR <60 mL/min/1.73m2 for >3 months is consistent with chronic kidney disease. Refer to KDOQI guidelines for clinical interpretation. In patients with unstable renal function, e.g. those with acute kidney injury, the eGFR may not accurately reflect actual GFR. Performed By: #### Marilyn BERTRAND 22589-4 ####[facility]ORATORYCLIA [id number] [place] [address] Glucose [Mass/Vol] 159 mg/dL High 74-99 [facility] Comment on above: Order Comment: Speci men Type: BLOOD SPECIMEN Result Comment: The [employer] (ADA) provides guidance for cutoff values for fasting glucose and random glucose. The ADA defines fasting as no caloric intake for at least 8 hours. Fasting plasma glucose results between 100 to 125 mg/dL indicate increased risk for diabetes (prediabetes).Fasting plasma glucose results greater than or equal to 126 mg/dL meet the criteria for diagnosis of diabetes. In the absence of unequivocal hyperglycemia, results should be confirmed by repeat testing. In a patient with classic symptoms of hyperglycemia or hyperglycemic crisis, random plasma glucose results greater than or equal to 200 mg/dL meet the criteria for diagnosis of diabetes.Reference: Standards of Medical Care in Diabetes 2016, [employer]. Diabetes Care. 2016.39(Suppl 1). Performed By: #### Marilyn BERTRAND, 89469-1 ####[facility]ATORYCLIA [id number] [place] [address] Potassium [Moles/Vol] 3.9 mmol/L Normal 3.7-5.1 [facility] Comment on above: Order Comment: Speci men Type: BLOOD SPECIMEN Performed By: #### Marilyn BERTRAND, 80213-0 ####[facility]ORATORYCLIA [id number] [place] [address] Sodium [Moles/Vol] 138 mmol/L Normal 136-144 [facility] Comment on above: Order Comment: Speci men Type: BLOOD SPECIMEN Performed By: #### P ELZA, 74608-0 ####[facility]ATORYCLIA [id number] [place] [address] Urea nitrogen [Mass/Vol] 33 mg/dL High 7- [facility] Comment on above: Order Comment: Speci men Type: BLOOD SPECIMEN Performed By: #### Marilyn BERTRAND, 99610-1 ####[facility]ATORYCLIA [id number] [place] [address] CASE MANAGEMon 01-08-2021 CASE MANAGEM Normal [facility] CBC panel Auto (Bld)on 01-08 Erythrocyte distribution width (RBC) [Ratio] 17.0 % High 11.5-15.0 [facility] Comment on above: Order Comment: Speci men Type: BLOOD SPECIMEN Performed By: #### 5 8410-2 ####[facility]ATORYCLIA [id number] [place] [address] Hematocrit (Bld) [Volume fraction] 38.9 % Normal 36.0-46.0 [facility] Comment on above: Order Comment: Speci men Type: BLOOD SPECIMEN Performed By: #### 5 8410-2 ####[facility]ATORYCLIA [id number] [place] [address] Hemoglobin (Bld) [Mass/Vol] 13.0 g/dL Normal 11.5-15.5 [facility] Comment on above: Order Comment: Speci men Type: BLOOD SPECIMEN Performed By: #### 5 8410-2 ####[facility]ATORYCLIA [id number] [place] [address] MCH (RBC) [Entitic mass] 29.1 pg Normal 26.0-34.0 [facility] Comment on above: Order Comment: Speci men Type: BLOOD SPECIMEN Performed By: #### 5 8410-2 ####[facility]ATORYCLIA [id number] [place] [address] MCHC (RBC) [Mass/Vol] 33.4 g/dL Normal 30.5-36.0 [facility] Comment on above: Order Comment: Speci men Type: BLOOD SPECIMEN Performed By: #### 5 8410-2 ####[facility]ATORYCLIA [id number] [place] [address] MCV (RBC) [Entitic vol] 87.2 fL Normal 80.0-100.0 [facility] Comment on above: Order Comment: Speci men Type: BLOOD SPECIMEN Performed By: #### 5 8410-2 ####[facility]ATORYCLIA [id number] [place] [address] Nucleated RBC (Bld) [#/Vol] 10*3/uL Normal <0.01 [facility] Comment on above: Order Comment: Speci men Type: BLOOD SPECIMEN Performed By: #### 5 8410-2 ####[facility]ATORYCLIA [id number] [place] [address] Platelet mean volume (Bld) [Entitic vol] 10.7 fL Normal 9.0-12.7 [facility] Comment on above: Order Comment: Speci men Type: BLOOD SPECIMEN Performed By: #### 5 8410-2 ####[facility]ATORYCLIA [id number] [place] [address] Platelets (Bld) [#/Vol] 1099 10*3/uL High 150-400 [facility] Comment on above: Order Comment: Speci men Type: BLOOD SPECIMEN Performed By: #### 5 8410-2 ####[facility]ORYCLIA [id number] [place] [address] RBC (Bld) [#/Vol] 4.46 10*6/uL Normal 3.90-5.20 [facility] Comment on above: Order Comment: Speci men Type: BLOOD SPECIMEN Performed By: #### 5 8410-2 ####[facility]ATORYCLIA [id number] [place] [address] WBC (Bld) [#/Vol] 21.32 10*3/uL High 3.70-11.00 [facility] Comment on above: Order Comment: Speci men Type: BLOOD SPECIMEN Performed By: #### 5 8410-2 ####[facility]ATORYCLIA [id number] [place] [address] CRP SerPl-mCncon 01-08-2021 CRP [Mass/Vol] 7.7 mg/dL High <0.9 [facility] Comment on above: Order Comment: Speci men Type: BLOOD SPECIMEN Performed By: #### 1 988-5 ####[facility]ATORYCLIA [id number] [place] [address] NURSING PROGon 01-08-2021 NURSING PROG Normal [facility] NURSING PROG Normal [facility] PROCALCITONIN (LAB)on 2020 Procalcitonin [Mass/Vol] 0.97 ng/mL High <0.09 [facility] Comment on above: Order Comment: Speci men Type: BLOOD SPECIMEN Result Comment: For a guided interpretation of test results, please visit the Change in Procalcitonin Calculator, [email or web address]. Performed By: #### P ELZA, 98732-7 ####[facility]ATORYCLIA [id number] [place] [address] Prealbumin [Mass/Vol]on 12-17 Prealbumin Nephelometry [Mass/Vol] 32 mg/dL Normal 17-36 [facility] [facility] Comment on above: Order Comment: Speci men Type: BLOOD SPECIMEN Performed By: #### 1 4338-8 ####[facility]ATORYCLIA [id number] [place] [address] THERAPY NTon 01-08-2021 THERAPY NT Normal [facility] THERAPY NT Normal [facility] THERAPY NT Normal [facility] XR MOD BARIUM SWALLOW W SPEE Olya 01-08-2021 XR MOD BARIUM SWALLOW W SPEECH Normal [facility] ALLIED HEALTHon 01-07-2021 ALLIED HEALTH Normal [facility] Basic metabolic 2000 panelon 01-07-2021 Anion gap [Moles/Vol] 12 mmol/L Normal 9-18 [facility] Comment on above: Order Comment: Speci men Type: BLOOD SPECIMEN Performed By: #### 2 4321-2, 53696-8 ####[facility]ORYCLIA [id number] [place] [address] Calcium [Mass/Vol] 10.3 mg/dL High 8.5-10.2 [facility] Comment on above: Order Comment: Speci men Type: BLOOD SPECIMEN Performed By: #### 2 4321-2, 62089-2 ####[facility]ATORYCLIA [id number] [place] [address] Chloride [Moles/Vol] 102 mmol/L Normal 97-105 [facility] Comment on above: Order Comment: Speci men Type: BLOOD SPECIMEN Performed By: #### 2 4321-2, 00815-7 ####[facility]ORYCLIA [id number] [place] [address] CO2 [Moles/Vol] 26 mmol/L Normal 22-30 [facility] Comment on above: Order Comment: Speci men Type: BLOOD SPECIMEN Performed By: #### 2 4321-2, 04987-2 ####[facility]ATORYCLIA [id number] [place] [address] Creatinine [Mass/Vol] 0.67 mg/dL Normal 0.58-0.96 [facility] Comment on above: Order Comment: Speci men Type: BLOOD SPECIMEN Performed By: #### 2 4321-2, 36273-4 ####[facility]ATORYCLIA [id number] [place] [address] GFR/1.73 sq M.predicted MDRD (S/P/Bld) [Vol rate/Area] mL/min/{1.73_m2} Normal [facility] Comment on above: Order Comment: Speci men Type: BLOOD SPECIMEN Result Comment: >60e GFR (Estimated GFR) Units of measure: mL/min/1.73 meters squaredeGFR is derived from the reexpressed MDRD Study equation using the following parameters: serum creatinine, age, gender and race. The creatinine assay has been calibrated to be traceable to IDMS. An eGFR <60 mL/min/1.73m2 for >3 months is consistent with chronic kidney disease. Refer to KDOQI guidelines for clinical interpretation. In patients with unstable renal function, e.g. those with acute kidney injury, the eGFR may not accurately reflect actual GFR. Performed By: #### 2 4321-2, 21819-1 ####[facility]ATORYCLIA [id number] [place] [address] Glucose [Mass/Vol] 159 mg/dL High 74-99 [facility] Comment on above: Order Comment: Speci men Type: BLOOD SPECIMEN Result Comment: The [employer] Diabetes [employer] (ADA) provides guidance for cutoff values for fasting glucose and random glucose. The ADA defines fasting as no caloric intake for at least 8 hours. Fasting plasma glucose results between 100 to 125 mg/dL indicate increased risk for diabetes (prediabetes).Fasting plasma glucose results greater than or equal to 126 mg/dL meet the criteria for diagnosis of diabetes. In the absence of unequivocal hyperglycemia, results should be confirmed by repeat testing. In a patient with classic symptoms of hyperglycemia or hyperglycemic crisis, random plasma glucose results greater than or equal to 200 mg/dL meet the criteria for diagnosis of diabetes.Reference: Standards of Medical Care in Diabetes 2016, [employer]. Diabetes Care. 2016.39(Suppl 1). Performed By: #### 2 4321-2, 50331-0 ####[facility]ATORYCLIA [id number] [place] [address] Potassium [Moles/Vol] 4.1 mmol/L Normal 3.7-5.1 [facility] Comment on above: Order Comment: Speci men Type: BLOOD SPECIMEN Performed By: #### 2 4321-2, 25219-3 ####[facility]ATORYCLIA [id number] [place] [address] Sodium [Moles/Vol] 140 mmol/L Normal 136-144 [facility] Comment on above: Order Comment: Speci men Type: BLOOD SPECIMEN Performed By: #### 2 4321-2, 87366-8 ####[facility]ATORYCLIA [id number] [place] [address] Urea nitrogen [Mass/Vol] 33 mg/dL High 7-21 [facility] Comment on above: Order Comment: Speci men Type: BLOOD SPECIMEN Performed By: #### 2 4321-2, 39882-7 ####[facility]ATORYCLIA [id number] [place] [address] CBC panel Auto (Bld)on 01-07 Erythrocyte distribution width (RBC) [Ratio] 17.1 % High 11.5-15.0 [facility] Comment on above: Order Comment: Speci men Type: BLOOD SPECIMEN Performed By: #### 5 8410-2 ####[facility]ATORYCLIA [id number] [place] [address] Hematocrit (Bld) [Volume fraction] 44.5 % Normal 36.0-46.0 [facility] Comment on above: Order Comment: Speci men Type: BLOOD SPECIMEN Performed By: #### 5 8410-2 ####[facility]ATORYCLIA [id number] [place] [address] Hemoglobin (Bld) [Mass/Vol] 14.0 g/dL Normal 11.5-15.5 [facility] Comment on above: Order Comment: Speci men Type: BLOOD SPECIMEN Performed By: #### 5 8410-2 ####[facility]ATORYCLIA [id number] [place] [address] MCH (RBC) [Entitic mass] 28.2 pg Normal 26.0-34.0 [facility] Comment on above: Order Comment: Speci men Type: BLOOD SPECIMEN Performed By: #### 5 8410-2 ####[facility]ATORYCLIA [id number] [place] [address] MCHC (RBC) [Mass/Vol] 31.5 g/dL Normal 30.5-36.0 [facility] Comment on above: Order Comment: Speci men Type: BLOOD SPECIMEN Performed By: #### 5 8410-2 ####[facility]ATORYCLIA [id number] [place] [address] MCV (RBC) [Entitic vol] 89.7 fL Normal 80.0-100.0 [facility] Comment on above: Order Comment: Speci men Type: BLOOD SPECIMEN Performed By: #### 5 8410-2 ####[facility]ATORYCLIA [id number] [place] [address] Nucleated RBC (Bld) [#/Vol] 10*3/uL Normal <0.01 [facility] Comment on above: Order Comment: Speci men Type: BLOOD SPECIMEN Performed By: #### 5 8410-2 ####[facility]ATORYCLIA [id number] [place] [address] Platelet mean volume (Bld) [Entitic vol] 11.1 fL Normal 9.0-12.7 [facility] Comment on above: Order Comment: Speci men Type: BLOOD SPECIMEN Performed By: #### 5 8410-2 ####[facility]ATORYCLIA [id number] [place] [address] Platelets (Bld) [#/Vol] 1068 10*3/uL High 150-400 [facility] Comment on above: Order Comment: Speci men Type: BLOOD SPECIMEN Performed By: #### 5 8410-2 ####[facility]ATORYCLIA [id number] [place] [address] RBC (Bld) [#/Vol] 4.96 10*6/uL Normal 3.90-5.20 [facility] Comment on above: Order Comment: Speci men Type: BLOOD SPECIMEN Performed By: #### 5 8410-2 ####[facility]ATORYCLIA [id number] [place] [address] WBC (Bld) [#/Vol] 18.49 10*3/uL High 3.70-11.00 [facility] Comment on above: Order Comment: Speci men Type: BLOOD SPECIMEN Performed By: #### 5 8410-2 ####[facility]ATORYCLIA [id number] [place] [address] CONSULTon 01-07-2021 CONSULT Normal [facility] NT-proBNP SerPl-mCncon 01-07 Natriuretic peptide.B prohormone N-Terminal [Mass/Vol] 288 pg/mL High <125 [facility] Comment on above: Order Comment: Speci men Type: BLOOD SPECIMEN Performed By: #### 2 4321-2, 64182-1 ####[facility]ORYCLIA [id number] [place] [address] NURSING PROGon 01-07-2021 NURSING PROG Normal [facility] NURSING PROG Normal [facility] NURSING PROG Normal [facility] THERAPY NTon 01-07-2021 THERAPY NT Normal [facility] XR CHEST 1V FRONTALon 2020 XR CHEST 1V FRONTAL Normal [facility] ALLIED HEALTHon 01-06-2021 ALLIED HEALTH Normal [facility] Basic metabolic 2000 panelon 01-06-2021 Anion gap [Moles/Vol] 8 mmol/L Low 9-18 [facility] Comment on above: Order Comment: Speci men Type: BLOOD SPECIMEN Performed By: #### 2 4321-2 ####[facility]ORYCLIA [id number] [place] [address] Calcium [Mass/Vol] 9.4 mg/dL Normal 8.5-10.2 [facility] Comment on above: Order Comment: Speci men Type: BLOOD SPECIMEN Performed By: #### 2 4321-2 ####[facility]ORYCLIA [id number] [place] [address] Chloride [Moles/Vol] 104 mmol/L Normal 97-105 [facility] Comment on above: Order Comment: Speci men Type: BLOOD SPECIMEN Performed By: #### 2 4321-2 ####[facility]ORYCLIA [id number] [place] [address] CO2 [Moles/Vol] 24 mmol/L Normal 22-30 [facility] Comment on above: Order Comment: Speci men Type: BLOOD SPECIMEN Performed By: #### 2 4321-2 ####[facility]ORYCLIA [id number] [place] [address] Creatinine [Mass/Vol] 0.77 mg/dL Normal 0.58-0.96 [facility] Comment on above: Order Comment: Speci men Type: BLOOD SPECIMEN Performed By: #### 2 4321-2 ####[facility]ATORYCLIA [id number] [place] [address] GFR/1.73 sq M.predicted MDRD (S/P/Bld) [Vol rate/Area] mL/min/{1.73_m2} Normal [facility] Comment on above: Order Comment: Speci men Type: BLOOD SPECIMEN Result Comment: >60e GFR (Estimated GFR) Units of measure: mL/min/1.73 meters squaredeGFR is derived from the reexpressed MDRD Study equation using the following parameters: serum creatinine, age, gender and race. The creatinine assay has been calibrated to be traceable to IDMS. An eGFR <60 mL/min/1.73m2 for >3 months is consistent with chronic kidney disease. Refer to KDOQI guidelines for clinical interpretation. In patients with unstable renal function, e.g. those with acute kidney injury, the eGFR may not accurately reflect actual GFR. Performed By: #### 2 4321-2 ####[facility]ATORYCLIA [id number] [place] [address] Glucose [Mass/Vol] 150 mg/dL High 74-99 [facility] Comment on above: Order Comment: Speci men Type: BLOOD SPECIMEN Result Comment: The [employer] Diabetes [employer] (ADA) provides guidance for cutoff values for fasting glucose and random glucose. The ADA defines fasting as no caloric intake for at least 8 hours. Fasting plasma glucose results between 100 to 125 mg/dL indicate increased risk for diabetes (prediabetes).Fasting plasma glucose results greater than or equal to 126 mg/dL meet the criteria for diagnosis of diabetes. In the absence of unequivocal hyperglycemia, results should be confirmed by repeat testing. In a patient with classic symptoms of hyperglycemia or hyperglycemic crisis, random plasma glucose results greater than or equal to 200 mg/dL meet the criteria for diagnosis of diabetes.Reference: Standards of Medical Care in Diabetes 2016, [employer]. Diabetes Care. 2016.39(Suppl 1). Performed By: #### 2 4321-2 ####[facility]ATORYCLIA [id number] [place] [address] Potassium [Moles/Vol] 3.9 mmol/L Normal 3.7-5.1 [facility] Comment on above: Order Comment: Speci men Type: BLOOD SPECIMEN Performed By: #### 2 4321-2 ####[facility]ATORYCLIA [id number] [place] [address] Sodium [Moles/Vol] 136 mmol/L Normal 136-144 [facility] Comment on above: Order Comment: Speci men Type: BLOOD SPECIMEN Performed By: #### 2 4321-2 ####[facility]ATORYCLIA [id number] [place] [address] Urea nitrogen [Mass/Vol] 32 mg/dL High 7- [facility] Comment on above: Order Comment: Speci men Type: BLOOD SPECIMEN Performed By: #### 2 4321-2 ####[facility]ATORYCLIA [id number] [place] [address] CBC panel Auto (Bld)on 01-06 Erythrocyte distribution width (RBC) [Ratio] 16.6 % High 11.5-15.0 [facility] Comment on above: Order Comment: Speci men Type: BLOOD SPECIMEN Performed By: #### 5 8410-2 ####[facility]ATORYCLIA [id number] [place] [address] Hematocrit (Bld) [Volume fraction] 40.3 % Normal 36.0-46.0 [facility] Comment on above: Order Comment: Speci men Type: BLOOD SPECIMEN Performed By: #### 5 8410-2 ####[facility]ORYCLIA [id number] [place] [address] Hemoglobin (Bld) [Mass/Vol] 12.7 g/dL Normal 11.5-15.5 [facility] Comment on above: Order Comment: Speci men Type: BLOOD SPECIMEN Performed By: #### 5 8410-2 ####[facility]ORYCLIA [id number] [place] [address] MCH (RBC) [Entitic mass] 28.2 pg Normal 26.0-34.0 [facility] Comment on above: Order Comment: Speci men Type: BLOOD SPECIMEN Performed By: #### 5 8410-2 ####[facility]ATORYCLIA [id number] [place] [address] MCHC (RBC) [Mass/Vol] 31.5 g/dL Normal 30.5-36.0 [facility] Comment on above: Order Comment: Speci men Type: BLOOD SPECIMEN Performed By: #### 5 8410-2 ####[facility]ORYCLIA [id number] [place] [address] MCV (RBC) [Entitic vol] 89.4 fL Normal 80.0-100.0 [facility] Comment on above: Order Comment: Speci men Type: BLOOD SPECIMEN Performed By: #### 5 8410-2 ####[facility]ORYCLIA [id number] [place] [address] Nucleated RBC (Bld) [#/Vol] 10*3/uL Normal <0.01 [facility] Comment on above: Order Comment: Speci men Type: BLOOD SPECIMEN Performed By: #### 5 8410-2 ####[facility]ORYCLIA [id number] [place] [address] Platelet mean volume (Bld) [Entitic vol] 11.1 fL Normal 9.0-12.7 [facility] Comment on above: Order Comment: Speci men Type: BLOOD SPECIMEN Performed By: #### 5 8410-2 ####[facility]ATORYCLIA [id number] [place] [address] Platelets (Bld) [#/Vol] 781 10*3/uL High 150-400 [facility] Comment on above: Order Comment: Speci men Type: BLOOD SPECIMEN Performed By: #### 5 8410-2 ####[facility]ORYCLIA [id number] [place] [address] RBC (Bld) [#/Vol] 4.51 10*6/uL Normal 3.90-5.20 [facility] Comment on above: Order Comment: Speci men Type: BLOOD SPECIMEN Performed By: #### 5 8410-2 ####[facility]ATORYCLIA [id number] [place] [address] WBC (Bld) [#/Vol] 17.71 10*3/uL High 3.70-11.00 [facility] Comment on above: Order Comment: Speci men Type: BLOOD SPECIMEN Performed By: #### 5 8410-2 ####[facility]ATORYCLIA [id number] [place] [address] NURSING PROGon 01-06-2021 NURSING PROG Normal [facility] UA WITH CULTURE IF INDICATED on 01-06-2021 Bacteria LM.HPF (Urine sed) [#/Area] None Seen Normal None Seen [facility] Comment on above: Order Comment: Speci men Type: URINE SPECIMEN Performed By: #### U ACII ####[facility]ATORYCLIA [id number] [place] [address] Bilirubin Ql (U) Negative Normal Negative [facility] Comment on above: Order Comment: Speci men Type: URINE SPECIMEN Performed By: #### U ACII ####[facility]ATORYCLIA [id number] [place] [address] Clarity (Unsp spec) Cloudy Abnormal Clear [facility] Comment on above: Order Comment: Speci men Type: URINE SPECIMEN Performed By: #### U ACII ####[facility]ATORYCLIA [id number] [place] [address] Color (U) Yellow Normal Yellow [facility] Comment on above: Order Comment: Speci men Type: URINE SPECIMEN Performed By: #### U ACII ####[facility]ATORYCLIA [id number] [place] [address] Epithelial cells LM.HPF (Urine sed) [#/Area] 0.8 /[HPF] Normal [facility] Comment on above: Order Comment: Speci men Type: URINE SPECIMEN Performed By: #### U ACII ####[facility]ATORYCLIA [id number] [place] [address] Glucose Test strip (U) [Mass/Vol] Negative Normal Negative [facility] Comment on above: Order Comment: Speci men Type: URINE SPECIMEN Performed By: #### U ACII ####[facility]ATORYCLIA [id number] [place] [address] Hemoglobin Ql (U) Negative Normal Negative [facility] Comment on above: Order Comment: Speci men Type: URINE SPECIMEN Performed By: #### U ACII ####[facility]ATORYCLIA [id number] [place] [address] Hyaline casts (Urine sed) [#/Area] 0 /[LPF] Normal 0 /LPF [facility] Comment on above: Order Comment: Speci men Type: URINE SPECIMEN Performed By: #### U ACII ####[facility]ORATORYCLIA [id number] [place] [address] Ketones Ql (U) Negative Normal Negative [facility] Comment on above: Order Comment: Speci men Type: URINE SPECIMEN Performed By: #### U ACII ####[facility]ATORYCLIA [id number] [place] [address] Leukocyte esterase Test strip Ql (U) Negative Normal Negative [facility] Comment on above: Order Comment: Speci men Type: URINE SPECIMEN Performed By: #### U ACII ####[facility]ORYCLIA [id number] [place] [address] Nitrite Ql (U) Negative Normal Negative [facility] Comment on above: Order Comment: Speci men Type: URINE SPECIMEN Performed By: #### U ACII ####[facility]ORYCLIA [id number] [place] [address] pH (U) 7.0 [pH] Normal 5.0-8.0 [facility] Comment on above: Order Comment: Speci men Type: URINE SPECIMEN Performed By: #### U ACII ####[facility]ATORYCLIA [id number] [place] [address] Protein (U) [Mass/Vol] Negative Normal Negative [facility] Comment on above: Order Comment: Speci men Type: URINE SPECIMEN Performed By: #### U ACII ####[facility]ORATORYCLIA [id number] [place] [address] RBC LM.HPF (Urine sed) [#/Area] 3-5 /HPF Abnormal 0-3 /HPF [facility] Comment on above: Order Comment: Speci men Type: URINE SPECIMEN Performed By: #### U ACII ####[facility]ATORYCLIA [id number] [place] [address] Specific gravity (U) [Rel density] 1.025 Normal 1.005-1.030 [facility] Comment on above: Order Comment: Speci men Type: URINE SPECIMEN Performed By: #### U ACII ####[facility]ATORYCLIA [id number] [place] [address] Urobilinogen Ql (U) 4.0 EU/dL Abnormal 0.2-1.0 EU/dL [facility] Comment on above: Order Comment: Speci men Type: URINE SPECIMEN Performed By: #### U ACII ####[facility]ORYCLIA [id number] [place] [address] WBC LM.HPF (Urine sed) [#/Area] 0-5 /HPF Normal 0-5 /HPF [facility] Comment on above: Order Comment: Speci men Type: URINE SPECIMEN Performed By: #### U ACII ####[facility]ATORYCLIA [id number] [place] [address] XR KNEE 2V AP/LAT RTon 01-06 XR KNEE 2V AP/LAT RT Normal [facility] ALLIED HEALTHon 01-05-2021 ALLIED HEALTH Normal [facility] ALLIED HEALTH Normal [facility] ALLIED HEALTH Normal [facility] Basic metabolic 2000 panelon 01-05-2021 Anion gap [Moles/Vol] 11 mmol/L Normal 9-18 [facility] Comment on above: Order Comment: Speci men Type: BLOOD SPECIMEN Performed By: #### 2 4321-2 ####[facility]ATORYCLIA [id number] [place] [address] Calcium [Mass/Vol] 9.3 mg/dL Normal 8.5-10.2 [facility] Comment on above: Order Comment: Speci men Type: BLOOD SPECIMEN Performed By: #### 2 4321-2 ####[facility]ORYCLIA [id number] [place] [address] Chloride [Moles/Vol] 105 mmol/L Normal 97-105 [facility] Comment on above: Order Comment: Speci men Type: BLOOD SPECIMEN Performed By: #### 2 4321-2 ####[facility]ORYCLIA [id number] [place] [address] CO2 [Moles/Vol] 20 mmol/L Low 22-30 [facility] Comment on above: Order Comment: Speci men Type: BLOOD SPECIMEN Performed By: #### 2 4321-2 ####[facility]ORYCLIA [id number] [place] [address] Creatinine [Mass/Vol] 0.84 mg/dL Normal 0.58-0.96 [facility] Comment on above: Order Comment: Speci men Type: BLOOD SPECIMEN Performed By: #### 2 4321-2 ####[facility]ORYCLIA [id number] [place] [address] GFR/1.73 sq M.predicted MDRD (S/P/Bld) [Vol rate/Area] mL/min/{1.73_m2} Normal [facility] Comment on above: Order Comment: Speci men Type: BLOOD SPECIMEN Result Comment: >60e GFR (Estimated GFR) Units of measure: mL/min/1.73 meters squaredeGFR is derived from the reexpressed MDRD Study equation using the following parameters: serum creatinine, age, gender and race. The creatinine assay has been calibrated to be traceable to [email or web address]. An eGFR <60 mL/min/1.73m2 for >3 months is consistent with chronic kidney disease. Refer to KDOQI guidelines for clinical interpretation. In patients with unstable renal function, e.g. those with acute kidney injury, the eGFR may not accurately reflect actual GFR. Performed By: #### 2 4321-2 ####[facility]ATORYCLIA [id number] [place] [address] Glucose [Mass/Vol] 150 mg/dL High 74-99 [facility] Comment on above: Order Comment: Speci men Type: BLOOD SPECIMEN Result Comment: The [employer] (ADA) provides guidance for cutoff values for fasting glucose and random glucose. The ADA defines fasting as no caloric intake for at least 8 hours. Fasting plasma glucose results between 100 to 125 mg/dL indicate increased risk for diabetes (prediabetes).Fasting plasma glucose results greater than or equal to 126 mg/dL meet the criteria for diagnosis of diabetes. In the absence of unequivocal hyperglycemia, results should be confirmed by repeat testing. In a patient with classic symptoms of hyperglycemia or hyperglycemic crisis, random plasma glucose results greater than or equal to 200 mg/dL meet the criteria for diagnosis of diabetes.Reference: Standards of Medical Care in Diabetes 2016, [employer]. Diabetes Care. 2016.39(Suppl 1). Performed By: #### 2 4321-2 ####[facility]ATORYCLIA [id number] [place] [address] Potassium [Moles/Vol] Normal [facility] Comment on above: Order Comment: Speci men Type: BLOOD SPECIMEN Result Comment: Unab le to assay due to interference from hemolysis. Suggest reorder as clinically indicated. Performed By: #### 2 4321-2 ####[facility]ATORYCLIA [id number] [place] [address] Sodium [Moles/Vol] 136 mmol/L Normal 136-144 [facility] Comment on above: Order Comment: Speci men Type: BLOOD SPECIMEN Performed By: #### 2 4321-2 ####[facility]ATORYCLIA [id number] [place] [address] Urea nitrogen [Mass/Vol] 36 mg/dL High - [facility] Comment on above: Order Comment: Speci men Type: BLOOD SPECIMEN Performed By: #### 2 4321-2 ####[facility]ATORYCLIA [id number] [place] [address] CASE MANAGEMon 01-05-2021 CASE MANAGEM Normal [facility] CBC panel Auto (Bld)on 01-05 Erythrocyte distribution width (RBC) [Ratio] 16.4 % High 11.5-15.0 [facility] Comment on above: Order Comment: Speci men Type: BLOOD SPECIMEN Performed By: #### 5 8410-2 ####[facility]ORYCLIA [id number] [place] [address] Hematocrit (Bld) [Volume fraction] 40.0 % Normal 36.0-46.0 [facility] Comment on above: Order Comment: Speci men Type: BLOOD SPECIMEN Performed By: #### 5 8410-2 ####[facility]ATORYCLIA [id number] [place] [address] Hemoglobin (Bld) [Mass/Vol] 12.8 g/dL Normal 11.5-15.5 [facility] Comment on above: Order Comment: Speci men Type: BLOOD SPECIMEN Performed By: #### 5 8410-2 ####[facility]ATORYCLIA [id number] [place] [address] MCH (RBC) [Entitic mass] 28.7 pg Normal 26.0-34.0 [facility] Comment on above: Order Comment: Speci men Type: BLOOD SPECIMEN Performed By: #### 5 8410-2 ####[facility]ATORYCLIA [id number] [place] [address] MCHC (RBC) [Mass/Vol] 32.0 g/dL Normal 30.5-36.0 [facility] Comment on above: Order Comment: Speci men Type: BLOOD SPECIMEN Performed By: #### 5 8410-2 ####[facility]ATORYCLIA [id number] [place] [address] MCV (RBC) [Entitic vol] 89.7 fL Normal 80.0-100.0 [facility] Comment on above: Order Comment: Speci men Type: BLOOD SPECIMEN Performed By: #### 5 8410-2 ####[facility]ORYCLIA [id number] [place] [address] Nucleated RBC (Bld) [#/Vol] 0.02 10*3/uL High <0.01 [facility] Comment on above: Order Comment: Speci men Type: BLOOD SPECIMEN Performed By: #### 5 8410-2 ####[facility]ATORYCLIA [id number] [place] [address] Platelet mean volume (Bld) [Entitic vol] 11.5 fL Normal 9.0-12.7 [facility] Comment on above: Order Comment: Speci men Type: BLOOD SPECIMEN Performed By: #### 5 8410-2 ####[facility]ATORYCLIA [id number] [place] [address] Platelets (Bld) [#/Vol] 587 10*3/uL High 150-400 [facility] Comment on above: Order Comment: Speci men Type: BLOOD SPECIMEN Performed By: #### 5 8410-2 ####[facility]ATORYCLIA [id number] [place] [address] RBC (Bld) [#/Vol] 4.46 10*6/uL Normal 3.90-5.20 [facility] Comment on above: Order Comment: Speci men Type: BLOOD SPECIMEN Performed By: #### 5 8410-2 ####[facility]ATORYCLIA [id number] [place] [address] WBC (Bld) [#/Vol] 19.64 10*3/uL High 3.70-11.00 [facility] Comment on above: Order Comment: Speci men Type: BLOOD SPECIMEN Performed By: #### 5 8410-2 ####[facility]ATORYCLIA [id number] [place] [address] CT ABD/PEL W IVCONon 021 CT ABD/PEL W IVCON Normal [facility] CT BRAIN WO IVCONon 01-06-20 CT BRAIN WO IVCON Normal [facility] CT CERVICAL SPINE WO IVCONon 01-05-2021 CT CERVICAL SPINE WO IVCON Normal [facility] NURSING PROGon 01-05-2021 NURSING PROG Normal [facility] NURSING PROG Normal [facility] NURSING PROG Normal [facility] NURSING PROG Normal [facility] NURSING PROG Normal [facility] PROCALCITONIN (LAB)on 2020 Procalcitonin [Mass/Vol] 3.59 ng/mL High <0.09 [facility] Comment on above: Order Comment: Speci men Type: BLOOD SPECIMEN Result Comment: For a guided interpretation of test results, please visit the Change in Procalcitonin Calculator, [email or web address]. Performed By: #### P ROCAL ####[facility]ATORYCLIA [id number] [place] [address] THERAPY NTon 01-05-2021 THERAPY NT Normal [facility] XR CHEST 1V FRONTAL PORTon 0 01-05-2021 XR CHEST 1V FRONTAL PORT Normal [facility] ALLIED HEALTHon 01-04-2021 ALLIED HEALTH Normal [facility] Basic metabolic 2000 panelon 01-04-2021 Anion gap [Moles/Vol] 8 mmol/L Low 9-18 [facility] Comment on above: Order Comment: Speci men Type: BLOOD SPECIMEN Performed By: #### 1 9123-9, 2776-08, , 1987-12 ####[facility]ATORYCLIA [id number] [place] [address] Calcium [Mass/Vol] 8.5 mg/dL Normal 8.5-10.2 [facility] Comment on above: Order Comment: Speci men Type: BLOOD SPECIMEN Performed By: #### 1 9123-9, 2776-08, , 1987-12 ####[facility]ATORYCLIA [id number] [place] [address] Chloride [Moles/Vol] 107 mmol/L High 97-105 [facility] Comment on above: Order Comment: Speci men Type: BLOOD SPECIMEN Performed By: #### 1 9123-9, 2776-08, , 1987-12 ####[facility]ATORYCLIA [id number] [place] [address] CO2 [Moles/Vol] 23 mmol/L Normal 22-30 [facility] Comment on above: Order Comment: Speci men Type: BLOOD SPECIMEN Performed By: #### 1 9123-9, 2776-08, , 1987-12 ####[facility]ORYCLIA [id number] [place] [address] Creatinine [Mass/Vol] 0.91 mg/dL Normal 0.58-0.96 [facility] Comment on above: Order Comment: Speci men Type: BLOOD SPECIMEN Performed By: #### 1 9123-9, 2777-1, , 1987-12 ####[facility]ATORYCLIA [id number] [place] [address] GFR/1.73 sq M.predicted MDRD (S/P/Bld) [Vol rate/Area] mL/min/{1.73_m2} Normal [facility] Comment on above: Order Comment: Speci men Type: BLOOD SPECIMEN Result Comment: >60e GFR (Estimated GFR) Units of measure: mL/min/1.73 meters squaredeGFR is derived from the reexpressed MDRD Study equation using the following parameters: serum creatinine, age, gender and race. The creatinine assay has been calibrated to be traceable to IDMS. An eGFR <60 mL/min/1.73m2 for >3 months is consistent with chronic kidney disease. Refer to KDOQI guidelines for clinical interpretation. In patients with unstable renal function, e.g. those with acute kidney injury, the eGFR may not accurately reflect actual GFR. Performed By: #### 1 9123-9, 27702-15, , 1987-12 ####[facility]PITALIA [id number] [place] [address] Glucose [Mass/Vol] 128 mg/dL High 74-99 [facility] Comment on above: Order Comment: Speci [facility] Type: BLOOD SPECIMEN Result Comment: The [employer] Diabetes [employer] (ADA) provides guidance for cutoff values for fasting glucose and random glucose. The ADA defines fasting as no caloric intake for at least 8 hours. Fasting plasma glucose results between 100 to 125 mg/dL indicate increased risk for diabetes (prediabetes).Fasting plasma glucose results greater than or equal to 126 mg/dL meet the criteria for diagnosis of diabetes. In the absence of unequivocal hyperglycemia, results should be confirmed by repeat testing. In a patient with classic symptoms of hyperglycemia or hyperglycemic crisis, random plasma glucose results greater than or equal to 200 mg/dL meet the criteria for diagnosis of diabetes.Reference: Standards of Medical Care in Diabetes 2016, [employer]. Diabetes Care. 2016.39(Suppl 1). Performed By: #### 1 9123-9, 277-, , 1987-12 ####[facility]ATORYCLIA [id number] [place] [address] Potassium [Moles/Vol] 3.7 mmol/L Normal 3.7-5.1 [facility] Comment on above: Order Comment: Speci men Type: BLOOD SPECIMEN Performed By: #### 1 9123-9, 2776-08, , 1987-12 ####[facility]ATORYCLIA [id number] [place] [address] Sodium [Moles/Vol] 138 mmol/L Normal 136-144 [facility] Comment on above: Order Comment: Speci men Type: BLOOD SPECIMEN Performed By: #### 1 9123-9, 2776-08, , 1987-12 ####[facility]ATORYCLIA [id number] [place] [address] Urea nitrogen [Mass/Vol] 34 mg/dL High 7-21 [facility] Comment on above: Order Comment: Speci men Type: BLOOD SPECIMEN Performed By: #### 1 9123-9, 27702-15, , 1987-12 ####[facility]ATORYCLIA [id number] [place] [address] CALCIUM IONIZED Bon 01-05-20 Calcium.ionized (BldV) [Mass/Vol] 1.25 mmol/L Normal 1.08-1.30 [facility] Comment on above: Order Comment: Speci men Type: BLOOD SPECIMEN Performed By: #### I CA ####[facility]ATORYCLIA [id number] [place] [address] Calcium.ionized adjusted to pH 7.4 (Bld) [Moles/Vol] 1.19 mmol/L Normal 1.08-1.30 [facility] Comment on above: Order Comment: Speci men Type: BLOOD SPECIMEN Performed By: #### I CA ####[facility]ATORYCLIA [id number] [place] [address] CASE MANAGEMon 01-04-2021 CASE MANAGEM Normal [facility] CBC panel Auto (Bld)on 01-04 Erythrocyte distribution width (RBC) [Ratio] 16.8 % High 11.5-15.0 [facility] Comment on above: Order Comment: Speci men Type: BLOOD SPECIMEN Performed By: #### 5 8410-2 ####[facility]ATORYCLIA [id number] [place] [address] Hematocrit (Bld) [Volume fraction] 36.8 % Normal 36.0-46.0 [facility] Comment on above: Order Comment: Speci men Type: BLOOD SPECIMEN Performed By: #### 5 8410-2 ####[facility]ATORYCLIA [id number] [place] [address] Hemoglobin (Bld) [Mass/Vol] 11.7 g/dL Normal 11.5-15.5 [facility] Comment on above: Order Comment: Speci men Type: BLOOD SPECIMEN Performed By: #### 5 8410-2 ####[facility]ATORYCLIA [id number] [place] [address] MCH (RBC) [Entitic mass] 28.4 pg Normal 26.0-34.0 [facility] Comment on above: Order Comment: Speci men Type: BLOOD SPECIMEN Performed By: #### 5 8410-2 ####[facility]ATORYCLIA [id number] [place] [address] MCHC (RBC) [Mass/Vol] 31.8 g/dL Normal 30.5-36.0 [facility] Comment on above: Order Comment: Speci men Type: BLOOD SPECIMEN Performed By: #### 5 8410-2 ####[facility]ATORYCLIA [id number] [place] [address] MCV (RBC) [Entitic vol] 89.3 fL Normal 80.0-100.0 [facility] Comment on above: Order Comment: Speci men Type: BLOOD SPECIMEN Performed By: #### 5 8410-2 ####[facility]ORYCLIA [id number] [place] [address] Nucleated RBC (Bld) [#/Vol] 0.02 10*3/uL High <0.01 [facility] Comment on above: Order Comment: Speci men Type: BLOOD SPECIMEN Performed By: #### 5 8410-2 ####[facility]ATORYCLIA [id number] [place] [address] Platelet mean volume (Bld) [Entitic vol] 10.9 fL Normal 9.0-12.7 [facility] Comment on above: Order Comment: Speci men Type: BLOOD SPECIMEN Performed By: #### 5 8410-2 ####[facility]ATORYCLIA [id number] [place] [address] Platelets (Bld) [#/Vol] 432 10*3/uL High 150-400 [facility] Comment on above: Order Comment: Speci men Type: BLOOD SPECIMEN Performed By: #### 5 8410-2 ####[facility]ATORYCLIA [id number] [place] [address] RBC (Bld) [#/Vol] 4.12 10*6/uL Normal 3.90-5.20 [facility] Comment on above: Order Comment: Speci men Type: BLOOD SPECIMEN Performed By: #### 5 8410-2 ####[facility]ATORYCLIA [id number] [place] [address] WBC (Bld) [#/Vol] 17.90 10*3/uL High 3.70-11.00 [facility] Comment on above: Order Comment: Speci men Type: BLOOD SPECIMEN Performed By: #### 5 8410-2 ####[facility]ATORYCLIA [id number] [place] [address] CONSULT PROGon 01-04-2021 CONSULT PROG Normal [facility] CRP SerPl-mCncon 01-04-2021 CRP [Mass/Vol] 10.1 mg/dL High <0.9 [facility] Comment on above: Order Comment: Speci men Type: BLOOD SPECIMEN Performed By: #### 1 9123-9, 2777-1, , 1987-12 ####[facility]ATORYCLIA [id number] [place] [address] Magnesium SerPl-mCncon 01-04 Magnesium [Mass/Vol] 2.1 mg/dL Normal 1.7-2.3 [facility] Comment on above: Order Comment: Speci men Type: BLOOD SPECIMEN Performed By: #### 1 9123-9, 27702-15, , 1987-12 ####[facility]ATORYCLIA [id number] [place] [address] NURSING PROGon 01-04-2021 NURSING PROG Normal [facility] NURSING PROG Normal [facility] NURSING PROG Normal [facility] NURSING PROG Normal [facility] NUTRITIONon 01-04-2021 NUTRITION Normal [facility] Phosphate SerPl-mCncon 01-04 Phosphate [Mass/Vol] 3.5 mg/dL Normal 2.7-4.8 [facility] Comment on above: Order Comment: Speci men Type: BLOOD SPECIMEN Performed By: #### 1 9123-9, 27702-15, , 1987-12 ####[facility]ATORYCLIA [id number] [place] [address] Prealbumin [Mass/Vol]on 12-17 Prealbumin Nephelometry [Mass/Vol] 20 mg/dL Normal [facility] Comment on above: Order Comment: Speci men Type: BLOOD SPECIMEN Performed By: #### 1 4338-8 ####[facility]ATORYCLIA [id number] [place] [address] XR ABDOMEN 1V SUPINEon 01-04 XR ABDOMEN 1V SUPINE Normal [facility] ALLIED HEALTHon 01-03-2021 ALLIED HEALTH Normal [facility] ALLIED HEALTH Normal [facility] ARTERIAL BLOOD GASESon 01-03 Base excess Calc (Bld) [Moles/Vol] 4 mmol/L High 0-2 [facility] Comment on above: Order Comment: Speci men Type: ARTERIAL BLOOD SPECIMEN Performed By: #### A LLBG ####[facility]ATORYCLIA [id number] [place] [address] Body temperature 97.7 [degF] Normal [facility] Comment on above: Order Comment: Speci men Type: ARTERIAL BLOOD SPECIMEN Performed By: #### A LLBG ####[facility]ATORYCLIA [id number] [place] [address] CALCIUM IONIZED, PH CORRECTED 1.21 mmol/L Normal 1.08-1.30 [facility] Comment on above: Order Comment: Speci men Type: ARTERIAL BLOOD SPECIMEN Performed By: #### A LLBG ####[facility]ATORYCLIA [id number] [place] [address] Calcium.ionized (BldV) [Mass/Vol] 1.20 mmol/L Normal 1.08-1.30 [facility] Comment on above: Order Comment: Speci men Type: ARTERIAL BLOOD SPECIMEN Performed By: #### A LLBG ####[facility]ATORYCLIA [id number] [place] [address] Carboxyhemoglobin (BldA) [Mass fraction] <1.0 Normal 0.0-2.0 [facility] Comment on above: Order Comment: Speci men Type: ARTERIAL BLOOD SPECIMEN Result Comment: Carb oxyhemoglobin Reference Range for Smokers: 2.0-8.0% Performed By: #### A LLBG ####[facility]ATORYCLIA [id number] [place] [address] CO2 (Bld) [Partial pressure] 47 mm Hg High 36-46 [facility] Comment on above: Order Comment: Speci men Type: ARTERIAL BLOOD SPECIMEN Performed By: #### A LLBG ####[facility]ATORYCLIA [id number] [place] [address] CO2 [Moles/Vol] 26.1 mmol/L Normal 22-28 [facility] Comment on above: Order Comment: Speci men Type: ARTERIAL BLOOD SPECIMEN Performed By: #### A LLBG ####[facility]ATORYCLIA [id number] [place] [address] CO2 adjusted to patient's actual temperature (Bld) [Partial pressure] 46 mmHg Normal 36-46 [facility] Comment on above: Order Comment: Speci men Type: ARTERIAL BLOOD SPECIMEN Performed By: #### A LLBG ####[facility]ATORYCLIA [id number] [place] [address] Glucose [Mass/Vol] 209 mg/dL High 60-105 [facility] Comment on above: Order Comment: Speci men Type: ARTERIAL BLOOD SPECIMEN Performed By: #### A LLBG ####[facility]ORYCLIA [id number] [place] [address] HCO3 (Bld) [Moles/Vol] 29 mmol/L High 22-26 [facility] Comment on above: Order Comment: Speci men Type: ARTERIAL BLOOD SPECIMEN Performed By: #### A LLBG ####[facility]ATORYCLIA [id number] [place] [address] Hematocrit (Bld) [Volume fraction] 39.2 % Normal 36.0-46.0 [facility] Comment on above: Order Comment: Speci men Type: ARTERIAL BLOOD SPECIMEN Performed By: #### A LLBG ####[facility]ATORYCLIA [id number] [place] [address] Hemoglobin (Bld) [Mass/Vol] 12.8 g/dL Normal 11.5-15.5 [facility] Comment on above: Order Comment: Speci men Type: ARTERIAL BLOOD SPECIMEN Performed By: #### A LLBG ####[facility]ORYCLIA [id number] [place] [address] Methemoglobin (Bld) [Mass fraction] % Normal 0.0-1.5 [facility] Comment on above: Order Comment: Speci men Type: ARTERIAL BLOOD SPECIMEN Performed By: #### A LLBG ####[facility]ATORYCLIA [id number] [place] [address] O2 THERAPY Hi-Flow Normal [facility] Comment on above: Order Comment: Speci men Type: ARTERIAL BLOOD SPECIMEN Performed By: #### A LLBG ####[facility]ATORYCLIA [id number] [place] [address] Oxygen (Bld) [Partial pressure] 121 mm Hg High 85-95 [facility] Comment on above: Order Comment: Speci men Type: ARTERIAL BLOOD SPECIMEN Performed By: #### A LLBG ####[facility]ATORYCLIA [id number] [place] [address] Oxygen adjusted to patient's actual temperature (Bld) [Partial pressure] 118 mmHg High 85-95 [facility] Comment on above: Order Comment: Speci men Type: ARTERIAL BLOOD SPECIMEN Performed By: #### A LLBG ####[facility]ATORYCLIA [id number] [place] [address] OXYGEN SATURATION, ARTERIAL 98 % Normal 95-98 [facility] Comment on above: Order Comment: Speci men Type: ARTERIAL BLOOD SPECIMEN Performed By: #### A LLBG ####[facility]ATORYCLIA [id number] [place] [address] Oxyhemoglobin (BldA) [Mass fraction] 97 % Normal 95-98 [facility] Comment on above: Order Comment: Speci men Type: ARTERIAL BLOOD SPECIMEN Performed By: #### A LLBG ####[facility]ORYCLIA [id number] [place] [address] pH (Bld) 7.41 [pH] Normal 7.35-7.45 [facility] Comment on above: Order Comment: Speci men Type: ARTERIAL BLOOD SPECIMEN Performed By: #### A LLBG ####[facility]ORYCLIA [id number] [place] [address] pH adjusted to patient's actual temperature (Bld) 7.42 Normal 7.35-7.45 [facility] Comment on above: Order Comment: Speci men Type: ARTERIAL BLOOD SPECIMEN Performed By: #### A LLBG ####[facility]ORYCLIA [id number] [place] [address] Potassium [Moles/Vol] 4.1 mmol/L Normal 3.5-5.0 [facility] Comment on above: Order Comment: Speci men Type: ARTERIAL BLOOD SPECIMEN Performed By: #### A LLBG ####[facility]ATORYCLIA [id number] [place] [address] Sodium [Moles/Vol] 140 mmol/L Normal 136-144 [facility] Comment on above: Order Comment: Speci men Type: ARTERIAL BLOOD SPECIMEN Performed By: #### A LLBG ####[facility]ATORYCLIA [id number] [place] [address] Basic metabolic 2000 panelon 01-03-2021 Anion gap [Moles/Vol] 9 mmol/L Normal 9-18 [facility] Comment on above: Order Comment: Speci men Type: BLOOD SPECIMEN Performed By: #### 1 9123-9, 2776-08, ####[facility]ATORYCLIA [id number] [place] [address] Calcium [Mass/Vol] 8.9 mg/dL Normal 8.5-10.2 [facility] Comment on above: Order Comment: Speci men Type: BLOOD SPECIMEN Performed By: #### 1 9123-9, 2776-08, ####[facility]ATORYCLIA [id number] [place] [address] Chloride [Moles/Vol] 102 mmol/L Normal 97-105 [facility] Comment on above: Order Comment: Speci men Type: BLOOD SPECIMEN Performed By: #### 1 9123-9, 2776-08, ####[facility]ATORYCLIA [id number] [place] [address] CO2 [Moles/Vol] 30 mmol/L Normal 22-30 [facility] Comment on above: Order Comment: Speci men Type: BLOOD SPECIMEN Performed By: #### 1 9123-9, 2776-08, ####[facility]ORATORYCLIA [id number] [place] [address] Creatinine [Mass/Vol] 0.99 mg/dL High 0.58-0.96 [facility] Comment on above: Order Comment: Speci [facility] Type: BLOOD SPECIMEN Performed By: #### 1 9123-9, 2777-1, 56512-1 ####[facility]ATORYCLIA [id number] [place] [address] GFR/1.73 sq M.predicted MDRD (S/P/Bld) [Vol rate/Area] mL/min/{1.73_m2} Normal [facility] Comment on above: Order Comment: Speci men Type: BLOOD SPECIMEN Result Comment: 56eG FR (Estimated GFR) Units of measure: mL/min/1.73 meters squaredeGFR is derived from the reexpressed MDRD Study equation using the following parameters: serum creatinine, age, gender and race. The creatinine assay has been calibrated to be traceable to IDMS. An eGFR <60 mL/min/1.73m2 for >3 months is consistent with chronic kidney disease. Refer to KDOQI guidelines for clinical interpretation. In patients with unstable renal function, e.g. those with acute kidney injury, the eGFR may not accurately reflect actual GFR. Performed By: #### 1 9123-9, 2777-1, 55991-2 ####[facility]ATORYCLIA [id number] [place] [address] Glucose [Mass/Vol] 183 mg/dL High 74-99 [facility] Comment on above: Order Comment: [facility] B[facility]OD SPECIMEN Result Comment: The [employer] Diabetes [employer] (ADA) provides guidance for cutoff values for fasting glucose and random glucose. The ADA defines fasting as no caloric intake for at least 8 hours. Fasting plasma glucose results between 100 to 125 mg/dL indicate increased risk for diabetes (prediabetes).Fasting plasma glucose results greater than or equal to 126 mg/dL meet the criteria for diagnosis of diabetes. In the absence of unequivocal hyperglycemia, results should be confirmed by repeat testing. In a patient with classic symptoms of hyperglycemia or hyperglycemic crisis, random plasma glucose results greater than or equal to 200 mg/dL meet the criteria for diagnosis of diabetes.Reference: Standards of Medical Care in Diabetes 2016, [employer]. Diabetes Care. 2016.39(Suppl 1). Performed By: #### 1 9123-9, 2777-1, 64800-6 ####[facility]ORATORYCLIA [id number] [place] [address] Potassium [Moles/Vol] 4.0 mmol/L Normal 3.7-5.1 [facility] Comment on above: Order Comment: Speci men Type: BLOOD SPECIMEN Performed By: #### 1 9123-9, 2777-, 41484-7 ####[facility]ATORYCLIA [id number] [place] [address] Sodium [Moles/Vol] 141 mmol/L Normal 136-144 [facility] Comment on above: Order Comment: Speci men Type: BLOOD SPECIMEN Performed By: #### 1 9123-9, 2777-, 37748-0 ####[facility]ATORYCLIA [id number] [place] [address] Urea nitrogen [Mass/Vol] 35 mg/dL High 7-21 [facility] Comment on above: Order Comment: Speci men Type: BLOOD SPECIMEN Performed By: #### 1 9123-9, 2777-, 31210-5 ####[facility]ATORYCLIA [id number] [place] [address] CALCIUM IONIZED Bon 01-04-20 Calcium.ionized (BldV) [Mass/Vol] 1.19 mmol/L Normal 1.08-1.30 [facility] Comment on above: Order Comment: Speci men Type: BLOOD SPECIMEN Performed By: #### I CA ####[facility]ATORYCLIA [id number] [place] [address] Calcium.ionized adjusted to pH 7.4 (Bld) [Moles/Vol] 1.17 mmol/L Normal 1.08-1.30 [facility] Comment on above: Order Comment: Speci men Type: BLOOD SPECIMEN Performed By: #### I CA ####[facility]ATORYCLIA [id number] [place] [address] CASE MANAGEMon 01-03-2021 CASE MANAGEM Normal [facility] CBC panel Auto (Bld)on 01-03 Erythrocyte distribution width (RBC) [Ratio] 16.1 % High 11.5-15.0 [facility] Comment on above: Order Comment: Speci men Type: BLOOD SPECIMEN Performed By: #### 5 8410-2 ####[facility]ATORYCLIA [id number] [place] [address] Hematocrit (Bld) [Volume fraction] 38.5 % Normal 36.0-46.0 [facility] Comment on above: Order Comment: Speci men Type: BLOOD SPECIMEN Performed By: #### 5 8410-2 ####[facility]ORYCLIA [id number] [place] [address] Hemoglobin (Bld) [Mass/Vol] 12.3 g/dL Normal 11.5-15.5 [facility] Comment on above: Order Comment: Speci men Type: BLOOD SPECIMEN Performed By: #### 5 8410-2 ####[facility]ATORYCLIA [id number] [place] [address] MCH (RBC) [Entitic mass] 28.3 pg Normal 26.0-34.0 [facility] Comment on above: Order Comment: Speci men Type: BLOOD SPECIMEN Performed By: #### 5 8410-2 ####[facility]ATORYCLIA [id number] [place] [address] MCHC (RBC) [Mass/Vol] 31.9 g/dL Normal 30.5-36.0 [facility] [facility] Comment on above: Order Comment: Speci men Type: BLOOD SPECIMEN Performed By: #### 5 8410-2 ####[facility]ATORYCLIA [id number] [place] [address] MCV (RBC) [Entitic vol] 88.7 fL Normal 80.0-100.0 [facility] Comment on above: Order Comment: Speci men Type: BLOOD SPECIMEN Performed By: #### 5 8410-2 ####[facility]ORYCLIA [id number] [place] [address] Nucleated RBC (Bld) [#/Vol] 0.02 10*3/uL High <0.01 [facility] Comment on above: Order Comment: Speci men Type: BLOOD SPECIMEN Performed By: #### 5 8410-2 ####[facility]ORYCLIA [id number] [place] [address] Platelet mean volume (Bld) [Entitic vol] 10.8 fL Normal 9.0-12.7 [facility] Comment on above: Order Comment: Speci men Type: BLOOD SPECIMEN Performed By: #### 5 8410-2 ####[facility]ORYCLIA [id number] [place] [address] Platelets (Bld) [#/Vol] 411 10*3/uL High 150-400 [facility] Comment on above: Order Comment: Speci men Type: BLOOD SPECIMEN Performed By: #### 5 8410-2 ####[facility]ATORYCLIA [id number] [place] [address] RBC (Bld) [#/Vol] 4.34 10*6/uL Normal 3.90-5.20 [facility] Comment on above: Order Comment: Speci men Type: BLOOD SPECIMEN Performed By: #### 5 8410-2 ####[facility]ATORYCLIA [id number] [place] [address] WBC (Bld) [#/Vol] 15.47 10*3/uL High 3.70-11.00 [facility] Comment on above: Order Comment: Speci men Type: BLOOD SPECIMEN Performed By: #### 5 8410-2 ####[facility]ATORYCLIA [id number] [place] [address] CONSULT PROGon 01-03-2021 CONSULT PROG Normal [facility] Magnesium SerPl-mCncon 01-03 Magnesium [Mass/Vol] 2.3 mg/dL Normal 1.7-2.3 [facility] Comment on above: Order Comment: Speci men Type: BLOOD SPECIMEN Performed By: #### 1 9123-9, 2777-1, 83468-2 ####[facility]ORYCLIA [id number] [place] [address] NURSING PROGon 01-03-2021 NURSING PROG Normal [facility] Phosphate SerPl-mCncon 01-03 Phosphate [Mass/Vol] 4.3 mg/dL Normal 2.7-4.8 [facility] Comment on above: Order Comment: Speci men Type: BLOOD SPECIMEN Performed By: #### 1 9123-9, 2777-1, 97675-8 ####[facility]ORYCLIA [id number] [place] [address] THERAPY NTon 01-03-2021 THERAPY NT Normal [facility] XR CHEST 1V FRONTALon 2020 XR CHEST 1V FRONTAL Normal [facility] XR PELVIS 1V APon 01-03-2021 XR PELVIS 1V AP Normal [facility] ALLIED HEALTHon 01-02-2021 ALLIED HEALTH Normal [facility] ALLIED HEALTH Normal [facility] ALLIED HEALTH Normal [facility] Basic metabolic 2000 panelon 01-02-2021 Anion gap [Moles/Vol] 8 mmol/L Low -18 [facility] Comment on above: Order Comment: Speci men Type: BLOOD SPECIMEN Performed By: #### 2 4321-2, 2776-08, ####[facility]ORYCLIA [id number] [place] [address] Calcium [Mass/Vol] 8.7 mg/dL Normal 8.5-10.2 [facility] Comment on above: Order Comment: Speci men Type: BLOOD SPECIMEN Performed By: #### 2 4321-2, 2776-08, ####[facility]ORYCLIA [id number] [place] [address] Chloride [Moles/Vol] 104 mmol/L Normal 97-105 [facility] Comment on above: Order Comment: Speci men Type: BLOOD SPECIMEN Performed By: #### 2 4321-2, 2776-, ####[facility]ORYCLIA [id number] [place] [address] CO2 [Moles/Vol] 26 mmol/L Normal 22-30 [facility] Comment on above: Order Comment: Speci men Type: BLOOD SPECIMEN Performed By: #### 2 4321-2, 2776-, ####[facility]ORYCLIA [id number] [place] [address] Creatinine [Mass/Vol] 0.82 mg/dL Normal 0.58-0.96 [facility] Comment on above: [facility]: [facility] Performed By: #### 2 4321-2, 277-, ####[facility]ORYCLIA [id number] [place] [address] GFR/1.73 sq M.predicted MDRD (S/P/Bld) [Vol rate/Area] mL/min/{1.73_m2} Normal [facility] Comment on above: Order Comment: Speci men Type: BLOOD SPECIMEN Result Comment: >60e GFR (Estimated GFR) Units of measure: mL/min/1.73 meters squaredeGFR is derived from the reexpressed MDRD Study equation using the following parameters: serum creatinine, age, gender and race. The creatinine assay has been calibrated to be traceable to IDMS. An eGFR <60 mL/min/1.73m2 for >3 months is consistent with chronic kidney disease. Refer to KDOQI guidelines for clinical interpretation. In patients with unstable renal function, e.g. those with acute kidney injury, the eGFR may not accurately reflect actual GFR. Performed By: #### 2 4321-2, 2777-, ####[facility]ATORYCLIA [id number] [place] [address] Glucose [Mass/Vol] 139 mg/dL High 74-99 [facility] Comment on above: Order Comment: [facility] Type: BLOOD SPECIMEN Result Comment: The [employer] Diabetes [employer] (ADA) provides guidance for cutoff values for fasting glucose and random glucose. The ADA defines fasting as no caloric intake for at least 8 hours. Fasting plasma glucose results between 100 to 125 mg/dL indicate increased risk for diabetes (prediabetes).Fasting plasma glucose results greater than or equal to 126 mg/dL meet the criteria for diagnosis of diabetes. In the absence of unequivocal hyperglycemia, results should be confirmed by repeat testing. In a patient with classic symptoms of hyperglycemia or hyperglycemic crisis, random plasma glucose results greater than or equal to 200 mg/dL meet the criteria for diagnosis of diabetes.Reference: Standards of Medical Care in Diabetes 2016, [employer]. Diabetes Care. 2016.39(Suppl 1). Performed By: #### 2 4321-2, 7-, ####[facility]ATORYCLIA [id number] [place] [address] Potassium [Moles/Vol] 4.1 mmol/L Normal 3.7-5.1 [facility] Comment on above: Order Comment: Speci men Type: BLOOD SPECIMEN Performed By: #### 2 4321-2, 2776-08, ####[facility]ATORYCLIA [id number] [place] [address] Sodium [Moles/Vol] 138 mmol/L Normal 136-144 [facility] Comment on above: Order Comment: Speci men Type: BLOOD SPECIMEN Performed By: #### 2 4321-2, 2776-08, ####[facility]ATORYCLIA [id number] [place] [address] Urea nitrogen [Mass/Vol] 26 mg/dL High 7-21 [facility] Comment on above: Order Comment: Speci men Type: BLOOD SPECIMEN Performed By: #### 2 4321-2, 2776-08, ####[facility]ATORYCLIA [id number] [place] [address] CALCIUM IONIZED Bon 01-03-20 21 Calcium.ionized (BldV) [Mass/Vol] 1.22 mmol/L Normal 1.08-1.30 [facility] Comment on above: Order Comment: Speci men Type: BLOOD SPECIMEN Performed By: #### I CA ####[facility]ATORYCLIA [id number] [place] [address] Calcium.ionized adjusted to pH 7.4 (Bld) [Moles/Vol] 1.22 mmol/L Normal 1.08-1.30 [facility] Comment on above: Order Comment: Speci men Type: BLOOD SPECIMEN Performed By: #### I CA ####[facility]ATORYCLIA [id number] [place] [address] CASE MANAGEMon 01-02-2021 CASE MANAGEM Normal [facility] CBC panel Auto (Bld)on 01-02 Erythrocyte distribution width (RBC) [Ratio] 16.1 % High 11.5-15.0 [facility] Comment on above: Order Comment: Speci men Type: BLOOD SPECIMEN Performed By: #### 5 8410-2 ####[facility]ATORYCLIA [id number] [place] [address] Hematocrit (Bld) [Volume fraction] 38.7 % Normal 36.0-46.0 [facility] Comment on above: Order Comment: Speci men Type: BLOOD SPECIMEN Performed By: #### 5 8410-2 ####[facility]ATORYCLIA [id number] [place] [address] Hemoglobin (Bld) [Mass/Vol] 12.3 g/dL Normal 11.5-15.5 [facility] Comment on above: Order Comment: Speci men Type: BLOOD SPECIMEN Performed By: #### 5 8410-2 ####[facility]ORYCLIA [id number] [place] [address] MCH (RBC) [Entitic mass] 28.3 pg Normal 26.0-34.0 [facility] Comment on above: Order Comment: Speci men Type: BLOOD SPECIMEN Performed By: #### 5 8410-2 ####[facility]ATORYCLIA [id number] [place] [address] MCHC (RBC) [Mass/Vol] 31.8 g/dL Normal 30.5-36.0 [facility] Comment on above: Order Comment: Speci men Type: BLOOD SPECIMEN Performed By: #### 5 8410-2 ####[facility]ORYCLIA [id number] [place] [address] MCV (RBC) [Entitic vol] 89.2 fL Normal 80.0-100.0 [facility] Comment on above: Order Comment: Speci men Type: BLOOD SPECIMEN Performed By: #### 5 8410-2 ####[facility]ORYCLIA [id number] [place] [address] Nucleated RBC (Bld) [#/Vol] 0.07 10*3/uL High <0.01 [facility] Comment on above: Order Comment: Speci men Type: BLOOD SPECIMEN Performed By: #### 5 8410-2 ####[facility]ORYCLIA [id number] [place] [address] Platelet mean volume (Bld) [Entitic vol] 10.7 fL Normal 9.0-12.7 [facility] Comment on above: Order Comment: Speci men Type: BLOOD SPECIMEN Performed By: #### 5 8410-2 ####[facility]ORYCLIA [id number] [place] [address] Platelets (Bld) [#/Vol] 362 10*3/uL Normal 150-400 [facility] Comment on above: Order Comment: Speci men Type: BLOOD SPECIMEN Performed By: #### 5 8410-2 ####[facility]ORYCLIA [id number] [place] [address] RBC (Bld) [#/Vol] 4.34 10*6/uL Normal 3.90-5.20 [facility] Comment on above: Order Comment: Speci men Type: BLOOD SPECIMEN Performed By: #### 5 8410-2 ####[facility]ORYCLIA [id number] [place] [address] WBC (Bld) [#/Vol] 15.72 10*3/uL High 3.70-11.00 [facility] Comment on above: Order Comment: Speci men Type: BLOOD SPECIMEN Performed By: #### 5 8410-2 ####[facility]ATORYCLIA [id number] [place] [address] CONSULT PROGon 01-02-2021 CONSULT PROG Normal [facility] Magnesium SerPl-mCncon 01-02 Magnesium [Mass/Vol] 2.3 mg/dL Normal 1.7-2.3 [facility] Comment on above: Order Comment: Speci men Type: BLOOD SPECIMEN Performed By: #### 2 4321-2, 2776-08, ####[facility]ATORYCLIA [id number] [place] [address] NUTRITIONon 01-02-2021 NUTRITION Normal [facility] Phosphate SerPl-mCncon 01-02 Phosphate [Mass/Vol] 3.5 mg/dL Normal 2.7-4.8 [facility] Comment on above: Order Comment: Speci men Type: BLOOD SPECIMEN Performed By: #### 2 1-2, 2776-08, ####[facility]ATORYCLIA [id number] [place] [address] XR ABDOMEN 1V SUPINEon 01-02 XR ABDOMEN 1V SUPINE Normal [facility] XR ABDOMEN 1V SUPINE Normal [facility] XR CHEST 1V FRONTALon 2020 XR CHEST 1V FRONTAL Normal [facility] ALLIED HEALTHon 01-01-2021 ALLIED HEALTH Normal [facility] ALLIED HEALTH Normal [facility] Basic metabolic 2000 panelon 01-01-2021 Anion gap [Moles/Vol] 8 mmol/L Low 9-18 [facility] Comment on above: Order Comment: Speci men Type: BLOOD SPECIMEN Performed By: #### 2 1-2, 1987-12, , 2776-08 ####[facility]ATORYCLIA [id number] [place] [address] Calcium [Mass/Vol] 8.2 mg/dL Low 8.5-10.2 [facility] Comment on above: Order Comment: Speci men Type: BLOOD SPECIMEN Performed By: #### 2 4321-2, 1987-12, , 2776-08 ####[facility]ORYCLIA [id number] [place] [address] Chloride [Moles/Vol] 106 mmol/L High 97-105 [facility] Comment on above: Order Comment: Speci men Type: BLOOD SPECIMEN Performed By: #### 2 4320-, 1987-12, , 2776-08 ####[facility]ATORYCLIA [id number] [place] [address] CO2 [Moles/Vol] 27 mmol/L Normal 22-30 [facility] Comment on above: Order Comment: Speci men Type: BLOOD SPECIMEN Performed By: #### 2 4320-, 1987-12, , 2776-08 ####[facility]ORYCLIA [id number] [place] [address] Creatinine [Mass/Vol] 0.93 mg/dL Normal 0.58-0.96 [facility] Comment on above: Order Comment: Speci men Type: BLOOD SPECIMEN Performed By: #### 2 4320-, 1987-12, , 2776-08 ####[facility]ATORYCLIA [id number] [place] [address] GFR/1.73 sq M.predicted MDRD (S/P/Bld) [Vol rate/Area] mL/min/{1.73_m2} Normal [facility] Comment on above: Order Comment: Speci men Type: BLOOD SPECIMEN Result Comment: >60e GFR (Estimated GFR) Units of measure: mL/min/1.73 meters squaredeGFR is derived from the reexpressed MDRD Study equation using the following parameters: serum creatinine, age, gender and race. The creatinine assay has been calibrated to be traceable to IDMS. An eGFR <60 mL/min/1.73m2 for >3 months is consistent with chronic kidney disease. Refer to KDOQI guidelines for clinical interpretation. In patients with unstable renal function, e.g. those with acute kidney injury, the eGFR may not accurately reflect actual GFR. Performed By: #### 2 4320-2, 1987-12, , 2776-08 ####[facility]ATORYCLIA [id number] [place] [address] Glucose [Mass/Vol] 135 mg/dL High 74-99 [facility] Comment on above: Order Comment: Speci men Type: BLOOD SPECIMEN Result Comment: The [employer] Diabetes [employer] (ADA) provides guidance for cutoff values for fasting glucose and random glucose. The ADA defines fasting as no caloric intake for at least 8 hours. Fasting plasma glucose results between 100 to 125 mg/dL indicate increased risk for diabetes (prediabetes).Fasting plasma glucose results greater than or equal to 126 mg/dL meet the criteria for diagnosis of diabetes. In the absence of unequivocal hyperglycemia, results should be confirmed by repeat testing. In a patient with classic symptoms of hyperglycemia or hyperglycemic crisis, random plasma glucose results greater than or equal to 200 mg/dL meet the criteria for diagnosis of diabetes.Reference: Standards of Medical Care in Diabetes 2016, [employer]. Diabetes Care. 2016.39(Suppl 1). Performed By: #### 2 4320-09, 1987-12, , 2776-08 ####[facility]ATORYCLIA [id number] [place] [address] Potassium [Moles/Vol] 3.9 mmol/L Normal 3.7-5.1 [facility] Comment on above: Order Comment: Speci men Type: BLOOD SPECIMEN Performed By: #### 2 4320-09, 1987-12, , 2776-08 ####[facility]ATORYCLIA [id number] [place] [address] Sodium [Moles/Vol] 141 mmol/L Normal 136-144 [facility] Comment on above: Order Comment: Speci men Type: BLOOD SPECIMEN Performed By: #### 2 4320-09, 1987-12, , 2776-08 ####[facility]ATORYCLIA [id number] [place] [address] Urea nitrogen [Mass/Vol] 41 mg/dL High 7-21 [facility] Comment on above: Order Comment: Speci men Type: BLOOD SPECIMEN Performed By: #### 2 4320-09, 1987-12, , 2776-08 ####[facility]ATORYCLIA [id number] [place] [address] CALCIUM IONIZED Bon 05-17-20 21 Calcium.ionized (BldV) [Mass/Vol] 1.16 mmol/L Normal 1.08-1.30 [facility] Comment on above: Order Comment: Speci men Type: BLOOD SPECIMEN Performed By: #### I CA ####[facility]ATORYCLIA [id number] [place] [address] Calcium.ionized adjusted to pH 7.4 (Bld) [Moles/Vol] 1.15 mmol/L Normal 1.08-1.30 [facility] Comment on above: Order Comment: Speci men Type: BLOOD SPECIMEN Performed By: #### I CA ####[facility]ATORYCLIA [id number] [place] [address] CASE MANAGEMon 01-01-2021 CASE MANAGEM Normal [facility] CBC panel Auto (Bld)on 01-01 Erythrocyte distribution width (RBC) [Ratio] 16.3 % High 11.5-15.0 [facility] Comment on above: Order Comment: Speci men Type: BLOOD SPECIMEN Performed By: #### 5 8410-2 ####[facility]ORYCLIA [id number] [place] [address] Hematocrit (Bld) [Volume fraction] 36.8 % Normal 36.0-46.0 [facility] Comment on above: Order Comment: Speci men Type: BLOOD SPECIMEN Performed By: #### 5 8410-2 ####[facility]ORYCLIA [id number] [place] [address] Hemoglobin (Bld) [Mass/Vol] 12.1 g/dL Normal 11.5-15.5 [facility] Comment on above: Order Comment: Speci men Type: BLOOD SPECIMEN Performed By: #### 5 8410-2 ####[facility]ORYCLIA [id number] [place] [address] MCH (RBC) [Entitic mass] 28.9 pg Normal 26.0-34.0 [facility] Comment on above: Order Comment: Speci men Type: BLOOD SPECIMEN Performed By: #### 5 8410-2 ####[facility]ORYCLIA [id number] [place] [address] MCHC (RBC) [Mass/Vol] 32.9 g/dL Normal 30.5-36.0 [facility] Comment on above: Order Comment: Speci men Type: BLOOD SPECIMEN Performed By: #### 5 8410-2 ####[facility]ORYCLIA [id number] [place] [address] MCV (RBC) [Entitic vol] 87.8 fL Normal 80.0-100.0 [facility] Comment on above: Order Comment: Speci men Type: BLOOD SPECIMEN Performed By: #### 5 8410-2 ####[facility]ORYCLIA [id number] [place] [address] Nucleated RBC (Bld) [#/Vol] 0.18 10*3/uL High <0.01 [facility] Comment on above: Order Comment: Speci men Type: BLOOD SPECIMEN Performed By: #### 5 8410-2 ####[facility]ORYCLIA [id number] [place] [address] Platelet mean volume (Bld) [Entitic vol] 11.0 fL Normal 9.0-12.7 [facility] Comment on above: Order Comment: Speci men Type: BLOOD SPECIMEN Performed By: #### 5 8410-2 ####[facility]ORYCLIA [id number] [place] [address] Platelets (Bld) [#/Vol] 292 10*3/uL Normal 150-400 [facility] Comment on above: Order Comment: Speci men Type: BLOOD SPECIMEN Performed By: #### 5 8410-2 ####[facility]ORYCLIA [id number] [place] [address] RBC (Bld) [#/Vol] 4.19 10*6/uL Normal 3.90-5.20 [facility] Comment on above: Order Comment: Speci men Type: BLOOD SPECIMEN Performed By: #### 5 8410-2 ####[facility]ORYCLIA [id number] [place] [address] WBC (Bld) [#/Vol] 16.03 10*3/uL High 3.70-11.00 [facility] Comment on above: Order Comment: Speci men Type: BLOOD SPECIMEN Performed By: #### 5 8410-2 ####[facility]ORYCLIA [id number] [place] [address] CONSULT PROGon 01-01-2021 CONSULT PROG Normal [facility] CRP SerPl-ncon 01-01-2021 CRP [Mass/Vol] 20.0 mg/dL High <0.9 [facility] Comment on above: Order Comment: Speci men Type: BLOOD SPECIMEN Performed By: #### 2 4320-2, 1987-12, , 2776-08 ####[facility]ORYCLIA [id number] [place] [address] Magnesium SerPl-mCncon 01-01 Magnesium [Mass/Vol] 2.1 mg/dL Normal 1.7-2.3 [facility] Comment on above: Order Comment: Speci men Type: BLOOD SPECIMEN Performed By: #### 2 4320-09, 1987-12, , 2776-08 ####[facility]ATORYCLIA [id number] [place] [address] NURSING PROGon 01-01-2021 NURSING PROG Normal [facility] PROCALCITONIN (LAB)on 2020 Procalcitonin [Mass/Vol] 33.46 ng/mL High <0.09 [facility] Comment on above: Order Comment: Speci men Type: BLOOD SPECIMEN Result Comment: For a guided interpretation of test results, please visit the Change in Procalcitonin Calculator, [email or web address]. Performed By: #### P ROCAL ####[facility]ATORYCLIA [id number] [place] [address] Phosphate SerPl-mCncon 01-01 Phosphate [Mass/Vol] 3.5 mg/dL Normal 2.7-4.8 [facility] Comment on above: Order Comment: Speci men Type: BLOOD SPECIMEN Performed By: #### 2 4320-2, 1987-12, , 2776-08 ####[facility]ORYCLIA [id number] [place] [address] Prealbumin [Mass/Vol]on 12-16 Prealbumin Nephelometry [Mass/Vol] 13 mg/dL Low 17-36 [facility] Comment on above: Order Comment: Speci men Type: BLOOD SPECIMEN Performed By: #### 1 4338-8 ####[facility]ATORYCLIA [id number] [place] [address] THERAPY NTon 01-01-2021 THERAPY NT Normal [facility] XR ABDOMEN 1V SUPINEon 01-01 XR ABDOMEN 1V SUPINE Normal [facility] XR CHEST 1V FRONTALon 2020 XR CHEST 1V FRONTAL Normal [facility] ALLIED HEALTHon 12-31-2020 ALLIED HEALTH Normal [facility] Basic metabolic 2000 panelon 12-31-2020 Anion gap [Moles/Vol] 8 mmol/L Low 9-18 [facility] Comment on above: Order Comment: Speci men Type: BLOOD SPECIMEN Performed By: #### 1 9123-9, 37569-5, 2776-08 ####[facility]ATORYCLIA [id number] [place] [address] Calcium [Mass/Vol] 8.1 mg/dL Low 8.5-10.2 [facility] Comment on above: Order Comment: Speci men Type: BLOOD SPECIMEN Performed By: #### 1 9123-9, 97193-7, 2776-08 ####[facility]ATORYCLIA [id number] [place] [address] Chloride [Moles/Vol] 105 mmol/L Normal 97-105 [facility] Comment on above: Order Comment: Speci men Type: BLOOD SPECIMEN Performed By: #### 1 9123-9, 44122-8, 2776-08 ####[facility]ORYCLIA [id number] [place] [address] CO2 [Moles/Vol] 29 mmol/L Normal 22-30 [facility] Comment on above: Order Comment: Speci men Type: BLOOD SPECIMEN Performed By: #### 1 9123-9, 89971-9, 2776-08 ####[facility]ORYCLIA [id number] [place] [address] Creatinine [Mass/Vol] 1.01 mg/dL High 0.58-0.96 [facility] Comment on above: Order [facility]: [facility]: BLOOD SPECIMEN Performed By: #### 1 9123-9, 98522-4, 2776-08 ####[facility]ATORYCLIA [id number] [place] [address] GFR/1.73 sq M.predicted MDRD (S/P/Bld) [Vol rate/Area] mL/min/{1.73_m2} Normal [facility] Comment on above: Order Comment: [facility] Type: BLOOD SPECIMEN Result Comment: 55eG FR (Estimated GFR) Units of measure: mL/min/1.73 meters squaredeGFR is derived from the reexpressed MDRD Study equation using the following parameters: serum creatinine, age, gender and race. The creatinine assay has been calibrated to be traceable to IDMS. An eGFR <60 mL/min/1.73m2 for >3 months is consistent with chronic kidney disease. Refer to KDOQI guidelines for clinical interpretation. In patients with unstable renal function, e.g. those with acute kidney injury, the eGFR may not accurately reflect actual GFR. Performed By: #### 1 9123-9, 72516-1, 2776-08 ####[facility]ATORYCLIA [id number] [place] [address] Glucose [Mass/Vol] 131 mg/dL High 74-99 [facility] Comment on above: Order Comment: [facility] Type: BLOOD SPECIMEN Result Comment: The [employer] (ADA) provides guidance for cutoff values for fasting glucose and random glucose. The ADA defines fasting as no caloric intake for at least 8 hours. Fasting plasma glucose results between 100 to 125 mg/dL indicate increased risk for diabetes (prediabetes).Fasting plasma glucose results greater than or equal to 126 mg/dL meet the criteria for diagnosis of diabetes. In the absence of unequivocal hyperglycemia, results should be confirmed by repeat testing. In a patient with classic symptoms of hyperglycemia or hyperglycemic crisis, random plasma glucose results greater than or equal to 200 mg/dL meet the criteria for diagnosis of diabetes.Reference: Standards of Medical Care in Diabetes 2016, [employer] Diabetes Association. Diabetes Care. 2016.39(Suppl 1). Performed By: #### 1 9123-9, 92127-6, 7- ####[facility]ORYCLIA [id number] [place] [address] Potassium [Moles/Vol] 4.0 mmol/L Normal 3.7-5.1 [facility] Comment on above: Order Comment: Speci men Type: BLOOD SPECIMEN Performed By: #### 1 9123-9, 51574-5, 2776- ####[facility]ORYCLIA [id number] [place] [address] Sodium [Moles/Vol] 142 mmol/L Normal 136-144 [facility] Comment on above: Order Comment: Speci men Type: BLOOD SPECIMEN Performed By: #### 1 9123-9, 98533-1, 2776- ####[facility]ORYCLIA [id number] [place] [address] Urea nitrogen [Mass/Vol] 35 mg/dL High 7-21 [facility] Comment on above: Order Comment: Speci men Type: BLOOD SPECIMEN Performed By: #### 1 9123-9, 61641-8, 2776- ####[facility]ORYCLIA [id number] [place] [address] CALCIUM IONIZED Bon 01-01-20 21 Calcium.ionized (BldV) [Mass/Vol] 1.12 mmol/L Normal 1.08-1.30 [facility] Comment on above: Order Comment: Speci men Type: BLOOD SPECIMEN Performed By: #### I CA ####[facility]ORYCLIA [id number] [place] [address] Calcium.ionized adjusted to pH 7.4 (Bld) [Moles/Vol] 1.11 mmol/L Normal 1.08-1.30 [facility] Comment on above: Order Comment: Speci men Type: BLOOD SPECIMEN Performed By: #### I CA ####[facility]ORYCLIA [id number] [place] [address] CBC panel Auto (Bld)on 12-31 Erythrocyte distribution width (RBC) [Ratio] 16.0 % High 11.5-15.0 [facility] Comment on above: Order Comment: Speci men Type: BLOOD SPECIMEN Performed By: #### 5 8410-2 ####[facility]ORYCLIA [id number] [place] [address] Hematocrit (Bld) [Volume fraction] 36.9 % Normal 36.0-46.0 [facility] Comment on above: Order Comment: Speci men Type: BLOOD SPECIMEN Performed By: #### 5 8410-2 ####[facility]ORYCLIA [id number] [place] [address] Hemoglobin (Bld) [Mass/Vol] 11.8 g/dL Normal 11.5-15.5 [facility] Comment on above: Order Comment: Speci men Type: BLOOD SPECIMEN Performed By: #### 5 8410-2 ####[facility]ORYCLIA [id number] [place] [address] MCH (RBC) [Entitic mass] 28.4 pg Normal 26.0-34.0 [facility] Comment on above: Order Comment: Speci men Type: BLOOD SPECIMEN Performed By: #### 5 8410-2 ####[facility]ORYCLIA [id number] [place] [address] MCHC (RBC) [Mass/Vol] 32.0 g/dL Normal 30.5-36.0 [facility] Comment on above: Order Comment: Speci men Type: BLOOD SPECIMEN Performed By: #### 5 8410-2 ####[facility]ORYCLIA [id number] [place] [address] MCV (RBC) [Entitic vol] 88.7 fL Normal 80.0-100.0 [facility] Comment on above: Order Comment: Speci men Type: BLOOD SPECIMEN Performed By: #### 5 8410-2 ####[facility]ORYCLIA [id number] [place] [address] Nucleated RBC (Bld) [#/Vol] 0.24 10*3/uL High <0.01 [facility] Comment on above: Order Comment: Speci men Type: BLOOD SPECIMEN Performed By: #### 5 8410-2 ####[facility]ORYCLIA [id number] [place] [address] Platelet mean volume (Bld) [Entitic vol] 10.6 fL Normal 9.0-12.7 [facility] Comment on above: Order Comment: Speci men Type: BLOOD SPECIMEN Performed By: #### 5 8410-2 ####[facility]ORYCLIA [id number] [place] [address] Platelets (Bld) [#/Vol] 268 10*3/uL Normal 150-400 [facility] Comment on above: Order Comment: Speci men Type: BLOOD SPECIMEN Performed By: #### 5 8410-2 ####[facility]ORYCLIA [id number] [place] [address] RBC (Bld) [#/Vol] 4.16 10*6/uL Normal 3.90-5.20 [facility] Comment on above: Order Comment: Speci men Type: BLOOD SPECIMEN Performed By: #### 5 8410-2 ####[facility]ORYCLIA [id number] [place] [address] WBC (Bld) [#/Vol] 11.34 10*3/uL High 3.70-11.00 [facility] Comment on above: Order Comment: Speci men Type: BLOOD SPECIMEN Performed By: #### 5 8410-2 ####[facility]ORYCLIA [id number] [place] [address] CONSULT PROGon 12-31-2020 CONSULT PROG Normal [facility] Magnesium SerPl-mCncon 12-31 Magnesium [Mass/Vol] 2.1 mg/dL Normal 1.7-2.3 [facility] Comment on above: Order Comment: Speci men Type: BLOOD SPECIMEN Performed By: #### 1 9123-9, 78128-0, 2776-08 ####[facility]ORYCLIA [id number] [place] [address] NURSING PROGon 12-31-2020 NURSING PROG Normal [facility] Phosphate SerPl-mCncon 12-31 Phosphate [Mass/Vol] 5.0 mg/dL High 2.7-4.8 [facility] Comment on above: Order Comment: Speci men Type: BLOOD SPECIMEN Performed By: #### 1 9123-9, 25047-5, 2776-08 ####[facility]ATORYCLIA [id number] [place] [address] XR CHEST 1V FRONTALon 2020 XR CHEST 1V FRONTAL Normal [facility] ALLIED HEALTHon 12-30-2020 ALLIED HEALTH Normal [facility] ALLIED HEALTH Normal [facility] Basic metabolic 2000 panelon 12-30-2020 Anion gap [Moles/Vol] 9 mmol/L Normal 9-18 [facility] Comment on above: Order Comment: Speci men Type: BLOOD SPECIMEN Performed By: #### 2 777-1, , ####[facility]ORYCLIA [id number] [place] [address] Calcium [Mass/Vol] 7.8 mg/dL Low 8.5-10.2 [facility] Comment on above: Order Comment: Speci men Type: BLOOD SPECIMEN Performed By: #### 2 777-1, 92658-0, ####[facility]ORYCLIA [id number] [place] [address] Chloride [Moles/Vol] 107 mmol/L High 97-105 [facility] Comment on above: Order Comment: Speci men Type: BLOOD SPECIMEN Performed By: #### 2 777-1, 70245-0, ####[facility]ORYCLIA [id number] [place] [address] CO2 [Moles/Vol] 28 mmol/L Normal 22-30 [facility] Comment on above: Order Comment: Speci men Type: BLOOD SPECIMEN Performed By: #### 2 777-1, 89600-2, ####[facility]ATORYCLIA [id number] [place] [address] Creatinine [Mass/Vol] 1.01 mg/dL High 0.58-0.96 [facility] Comment on above: Order Comment: [facility] Performed By: #### 2 777-1, 43933-9, ####[facility]ATORYCLIA [id number] [place] [address] GFR/1.73 sq M.predicted MDRD (S/P/Bld) [Vol rate/Area] mL/min/{1.73_m2} Normal [facility] Comment on above: Order Comment: [facility] Type: BLOOD SPECIMEN Result Comment: 55eG FR (Estimated GFR) Units of measure: mL/min/1.73 meters squaredeGFR is derived from the reexpressed MDRD Study equation using the following parameters: serum creatinine, age, gender and race. The creatinine assay has been calibrated to be traceable to IDMS. An eGFR <60 mL/min/1.73m2 for >3 months is consistent with chronic kidney disease. Refer to KDOQI guidelines for clinical interpretation. In patients with unstable renal function, e.g. those with acute kidney injury, the eGFR may not accurately reflect actual GFR. Performed By: #### 2 777-1, 06934-7, ####[facility]ATORYCLIA [id number] [place] [address] Glucose [Mass/Vol] 126 mg/dL High 74-99 [facility] Comment on above: Order Comment: [facility] Type: BLOOD SPECIMEN Result Comment: The [employer] Diabetes Association (ADA) provides guidance for cutoff values for fasting glucose and random glucose. The ADA defines fasting as no caloric intake for at least 8 hours. Fasting plasma glucose results between 100 to 125 mg/dL indicate increased risk for diabetes (prediabetes).Fasting plasma glucose results greater than or equal to 126 mg/dL meet the criteria for diagnosis of diabetes. In the absence of unequivocal hyperglycemia, results should be confirmed by repeat testing. In a patient with classic symptoms of hyperglycemia or hyperglycemic crisis, random plasma glucose results greater than or equal to 200 mg/dL meet the criteria for diagnosis of diabetes.Reference: Standards of Medical Care in Diabetes 2016, [employer] Diabetes Association. Diabetes Care. 2016.39(Suppl 1). Performed By: #### 2 777-1, 04545-3, ####[facility]ATORYCLIA [id number] [place] [address] Potassium [Moles/Vol] 3.6 mmol/L Low 3.7-5.1 [facility] Comment on above: Order Comment: Speci men Type: BLOOD SPECIMEN Performed By: #### 2 777-1, 60587-8, ####[facility]ORYCLIA [id number] [place] [address] Sodium [Moles/Vol] 144 mmol/L Normal 136-144 [facility] Comment on above: Order Comment: Speci men Type: BLOOD SPECIMEN Performed By: #### 2 777-1, 52236-6, ####[facility]ATORYCLIA [id number] [place] [address] Urea nitrogen [Mass/Vol] 27 mg/dL High 7-21 [facility] Comment on above: Order Comment: Speci men Type: BLOOD SPECIMEN Performed By: #### 2 777-1, , ####[facility]ATORYCLIA [id number] [place] [address] CALCIUM IONIZED Bon 12-31-19 21 Calcium.ionized (BldV) [Mass/Vol] 1.11 mmol/L Normal 1.08-1.30 [facility] Comment on above: Order Comment: Speci men Type: BLOOD SPECIMEN Performed By: #### I CA ####[facility]ORYCLIA [id number] [place] [address] Calcium.ionized adjusted to pH 7.4 (Bld) [Moles/Vol] 1.10 mmol/L Normal 1.08-1.30 [facility] Comment on above: Order Comment: Speci men Type: BLOOD SPECIMEN Performed By: #### I CA ####[facility]ATORYCLIA [id number] [place] [address] CBC panel Auto (Bld)on 12-30 Erythrocyte distribution width (RBC) [Ratio] 16.1 % High 11.5-15.0 [facility] Comment on above: Order Comment: Speci men Type: BLOOD SPECIMEN Performed By: #### 5 8410-2 ####[facility]ATORYCLIA [id number] [place] [address] Hematocrit (Bld) [Volume fraction] 33.4 % Low 36.0-46.0 [facility] Comment on above: Order Comment: Speci men Type: BLOOD SPECIMEN Performed By: #### 5 8410-2 ####[facility]ORYCLIA [id number] [place] [address] Hemoglobin (Bld) [Mass/Vol] 10.9 g/dL Low 11.5-15.5 [facility] Comment on above: Order Comment: Speci men Type: BLOOD SPECIMEN Performed By: #### 5 8410-2 ####[facility]ORYCLIA [id number] [place] [address] MCH (RBC) [Entitic mass] 28.6 pg Normal 26.0-34.0 [facility] Comment on above: Order Comment: Speci men Type: BLOOD SPECIMEN Performed By: #### 5 8410-2 ####[facility]ORYCLIA [id number] [place] [address] MCHC (RBC) [Mass/Vol] 32.6 g/dL Normal 30.5-36.0 [facility] Comment on above: Order Comment: Speci men Type: BLOOD SPECIMEN Performed By: #### 5 8410-2 ####[facility]ORYCLIA [id number] [place] [address] MCV (RBC) [Entitic vol] 87.7 fL Normal 80.0-100.0 [facility] Comment on above: Order Comment: Speci men Type: BLOOD SPECIMEN Performed By: #### 5 8410-2 ####[facility]ORYCLIA [id number] [place] [address] Nucleated RBC (Bld) [#/Vol] 0.20 10*3/uL High <0.01 [facility] Comment on above: Order Comment: Speci men Type: BLOOD SPECIMEN Performed By: #### 5 8410-2 ####[facility]ORYCLIA [id number] [place] [address] Platelet mean volume (Bld) [Entitic vol] 10.5 fL Normal 9.0-12.7 [facility] Comment on above: Order Comment: Speci men Type: BLOOD SPECIMEN Performed By: #### 5 8410-2 ####[facility]ORYCLIA [id number] [place] [address] Platelets (Bld) [#/Vol] 228 10*3/uL Normal 150-400 [facility] Comment on above: Order Comment: Speci men Type: BLOOD SPECIMEN Performed By: #### 5 8410-2 ####[facility]ORYCLIA [id number] [place] [address] RBC (Bld) [#/Vol] 3.81 10*6/uL Low 3.90-5.20 [facility] Comment on above: Order Comment: Speci men Type: BLOOD SPECIMEN Performed By: #### 5 8410-2 ####[facility]ORYCLIA [id number] [place] [address] WBC (Bld) [#/Vol] 6.13 10*3/uL Normal 3.70-11.00 [facility] Comment on above: Order Comment: Speci men Type: BLOOD SPECIMEN Performed By: #### 5 8410-2 ####[facility]ORYCLIA [id number] [place] [address] CONSULT PROGon 12-30-2020 CONSULT PROG Normal [facility] Magnesium SerPl-mCncon 12-30 Magnesium [Mass/Vol] 2.2 mg/dL Normal 1.7-2.3 [facility] Comment on above: Order Comment: Speci men Type: BLOOD SPECIMEN Performed By: #### 2 777-1, 78497-6, ####[facility]ORYCLIA [id number] [place] [address] NURSING PROGon 12-30-2020 NURSING PROG Normal [facility] Phosphate SerPl-mCncon 12-30 Phosphate [Mass/Vol] 4.5 mg/dL Normal 2.7-4.8 [facility] Comment on above: Order Comment: Speci men Type: BLOOD SPECIMEN Performed By: #### 2 777-1, 95852-9, ####[facility]ORYCLIA [id number] [place] [address] THERAPY NTon 12-30-2020 THERAPY NT Normal [facility] XR ABDOMEN 1V SUPINEon 12-30 XR ABDOMEN 1V SUPINE Normal [facility] XR CHEST 1V FRONTALon 2020 XR CHEST 1V FRONTAL Normal [facility] ALLIED HEALTHon 12-29-2020 ALLIED HEALTH Normal [facility] ALLIED HEALTH Normal [facility] ARTERIAL BLOOD GASESon 12-29 Base excess Calc (Bld) [Moles/Vol] 0 mmol/L Normal 0-2 [facility] Comment on above: Order Comment: Speci men Type: ARTERIAL BLOOD SPECIMEN Performed By: #### A LLBG ####[facility]ATORYCLIA [id number] [place] [address] Body temperature 100.04 [degF] Normal [facility] Comment on above: Order Comment: Speci men Type: ARTERIAL BLOOD SPECIMEN Performed By: #### A LLBG ####[facility]ATORYCLIA [id number] [place] [address] CALCIUM IONIZED, PH CORRECTED 1.20 mmol/L Normal 1.08-1.30 [facility] Comment on above: Order Comment: Speci men Type: ARTERIAL BLOOD SPECIMEN Performed By: #### A LLBG ####[facility]ATORYCLIA [id number] [place] [address] Calcium.ionized (BldV) [Mass/Vol] 1.19 mmol/L Normal 1.08-1.30 [facility] Comment on above: Order Comment: Speci men Type: ARTERIAL BLOOD SPECIMEN Performed By: #### A LLBG ####[facility]ORYCLIA [id number] [place] [address] Carboxyhemoglobin (BldA) [Mass fraction] 1.8 % Normal 0.0-2.0 [facility] Comment on above: Order Comment: Speci men Type: ARTERIAL BLOOD SPECIMEN Result Comment: Carb oxyhemoglobin Reference Range for Smokers: 2.0-8.0% Performed By: #### A LLBG ####[facility]ORYCLIA [id number] [place] [address] CO2 (Bld) [Partial pressure] 38 mm Hg Normal 36-46 [facility] Comment on above: Order Comment: Speci men Type: ARTERIAL BLOOD SPECIMEN Performed By: #### A LLBG ####[facility]ORYCLIA [id number] [place] [address] CO2 [Moles/Vol] 21.7 mmol/L Low 22-28 [facility] Comment on above: Order Comment: Speci men Type: ARTERIAL BLOOD SPECIMEN Performed By: #### A LLBG ####[facility]ORYCLIA [id number] [place] [address] CO2 adjusted to patient's actual temperature (Bld) [Partial pressure] 40 mmHg Normal 36-46 [facility] Comment on above: Order Comment: Speci men Type: ARTERIAL BLOOD SPECIMEN Performed By: #### A LLBG ####[facility]ORYCLIA [id number] [place] [address] Glucose [Mass/Vol] 115 mg/dL High 60-105 [facility] Comment on above: Order Comment: Speci men Type: ARTERIAL BLOOD SPECIMEN Performed By: #### A LLBG ####[facility]ORYCLIA [id number] [place] [address] HCO3 (Bld) [Moles/Vol] 24 mmol/L Normal 22-26 [facility] Comment on above: Order Comment: Speci men Type: ARTERIAL BLOOD SPECIMEN Performed By: #### A LLBG ####[facility]ORYCLIA [id number] [place] [address] Hematocrit (Bld) [Volume fraction] 36.1 % Normal 36.0-46.0 [facility] Comment on above: Order Comment: Speci men Type: ARTERIAL BLOOD SPECIMEN Performed By: #### A LLBG ####[facility]ORYCLIA [id number] [place] [address] Hemoglobin (Bld) [Mass/Vol] 11.7 g/dL Normal 11.5-15.5 [facility] Comment on above: Order Comment: Speci men Type: ARTERIAL BLOOD SPECIMEN Performed By: #### A LLBG ####[facility]ORYCLIA [id number] [place] [address] Methemoglobin (Bld) [Mass fraction] % Normal 0.0-1.5 [facility] Comment on above: Order Comment: Speci men Type: ARTERIAL BLOOD SPECIMEN Performed By: #### A LLBG ####[facility]ORYCLIA [id number] [place] [address] O2 THERAPY NC = Nasal Cannula Normal [facility] Comment on above: Order Comment: Speci men Type: ARTERIAL BLOOD SPECIMEN Performed By: #### A LLBG ####[facility]ORYCLIA [id number] [place] [address] Oxygen (Bld) [Partial pressure] 67 mm Hg Low 85-95 [facility] Comment on above: Order Comment: Speci men Type: ARTERIAL BLOOD SPECIMEN Performed By: #### A LLBG ####[facility]ORYCLIA [id number] [place] [address] Oxygen adjusted to patient's actual temperature (Bld) [Partial pressure] 70.0 mmHg Low 85-95 [facility] Comment on above: Order Comment: Speci men Type: ARTERIAL BLOOD SPECIMEN Performed By: #### A LLBG ####[facility]ORYCLIA [id number] [place] [address] OXYGEN SATURATION, ARTERIAL 94 % Low 95-98 [facility] Comment on above: Order Comment: Speci men Type: ARTERIAL BLOOD SPECIMEN Performed By: #### A LLBG ####[facility]ORYCLIA [id number] [place] [address] Oxyhemoglobin (BldA) [Mass fraction] 92 % Low 95-98 [facility] Comment on above: Order Comment: Speci men Type: ARTERIAL BLOOD SPECIMEN Performed By: #### A LLBG ####[facility]ORYCLIA [id number] [place] [address] pH (Bld) 7.41 [pH] Normal 7.35-7.45 [facility] Comment on above: Order Comment: Speci men Type: ARTERIAL BLOOD SPECIMEN Performed By: #### A LLBG ####[facility]ATORYCLIA [id number] [place] [address] pH adjusted to patient's actual temperature (Bld) 7.40 Normal 7.35-7.45 [facility] Comment on above: Order Comment: Speci men Type: ARTERIAL BLOOD SPECIMEN Performed By: #### A LLBG ####[facility]ORYCLIA [id number] [place] [address] Potassium [Moles/Vol] 4.0 mmol/L Normal 3.5-5.0 [facility] Comment on above: Order Comment: Speci men Type: ARTERIAL BLOOD SPECIMEN Performed By: #### A LLBG ####[facility]ORYCLIA [id number] [place] [address] Sodium [Moles/Vol] 146 mmol/L High 136-144 [facility] Comment on above: Order Comment: Speci men Type: ARTERIAL BLOOD SPECIMEN Performed By: #### A LLBG ####[facility]ATORYCLIA [id number] [place] [address] Bacteria Bld Culton 12-30-19 21 Bacteria identified Cx Nom (Bld) CULTURE, BLOOD: No growth 5 days Normal [facility] Comment on above: Performed By: #### 6 00-7 ####[facility]ORYCLIA [id number] [place] [address] Bacteria identified Cx Nom (Bld) CULTURE, BLOOD: No growth 5 days Normal [facility] Comment on above: Performed By: #### 6 00-7 ####[facility]ORYCLIA [id number] [place] [address] Basic metabolic 2000 panelon 12-29-2020 Anion gap [Moles/Vol] 7 mmol/L Low 9-18 [facility] Comment on above: Order Comment: Speci men Type: BLOOD SPECIMEN Performed By: #### 2 777-1, 94634-7, ####[facility]ORYCLIA [id number] [place] [address] Calcium [Mass/Vol] 7.7 mg/dL Low 8.5-10.2 [facility] Comment on above: Order Comment: Speci men Type: BLOOD SPECIMEN Performed By: #### 2 777-1, , ####[facility]ORYCLIA [id number] [place] [address] Chloride [Moles/Vol] 113 mmol/L High 97-105 [facility] Comment on above: Order Comment: Speci men Type: BLOOD SPECIMEN Performed By: #### 2 777-1, , ####[facility]ORYCLIA [id number] [place] [address] CO2 [Moles/Vol] 24 mmol/L Normal 22-30 [facility] Comment on above: Order Comment: Speci men Type: BLOOD SPECIMEN Performed By: #### 2 777-1, , ####[facility]ORYCLIA [id number] [place] [address] Creatinine [Mass/Vol] 0.84 mg/dL Normal 0.58-0.96 [facility] Comment on above: Order Comment: Speci men Type: BLOOD SPECIMEN Performed By: #### 2 777-1, , ####[facility]ORYCLIA [id number] [place] [address] GFR/1.73 sq M.predicted MDRD (S/P/Bld) [Vol rate/Area] mL/min/{1.73_m2} Normal [facility] Comment on above: Order Comment: Speci men Type: BLOOD SPECIMEN Result Comment: >60e GFR (Estimated GFR) Units of measure: mL/min/1.73 meters squaredeGFR is derived from the reexpressed MDRD Study equation using the following parameters: serum creatinine, age, gender and race. The creatinine assay has been calibrated to be traceable to IDMS. An eGFR <60 mL/min/1.73m2 for >3 months is consistent with chronic kidney disease. Refer to KDOQI guidelines for clinical interpretation. In patients with unstable renal function, e.g. those with acute kidney injury, the eGFR may not accurately reflect actual GFR. Performed By: #### 2 777-1, 38459-6, ####[facility]ATORYCLIA [id number] [place] [address] Glucose [Mass/Vol] 117 mg/dL High 74-99 [facility] Comment on above: Order Comment: Speci men Type: BLOOD SPECIMEN Result Comment: The [employer] (ADA) provides guidance for cutoff values for fasting glucose and random glucose. The ADA defines fasting as no caloric intake for at least 8 hours. Fasting plasma glucose results between 100 to 125 mg/dL indicate increased risk for diabetes (prediabetes).Fasting plasma glucose results greater than or equal to 126 mg/dL meet the criteria for diagnosis of diabetes. In the absence of unequivocal hyperglycemia, results should be confirmed by repeat testing. In a patient with classic symptoms of hyperglycemia or hyperglycemic crisis, random plasma glucose results greater than or equal to 200 mg/dL meet the criteria for diagnosis of diabetes.Reference: Standards of Medical Care in Diabetes 2016, [employer]. Diabetes Care. 2016.39(Suppl 1). Performed By: #### 2 777-1, 55966-8, ####[facility]ATORYCLIA [id number] [place] [address] Potassium [Moles/Vol] 4.3 mmol/L Normal 3.7-5.1 [facility] Comment on above: Order Comment: Speci men Type: BLOOD SPECIMEN Performed By: #### 2 777-1, 38038-3, ####[facility]ORYCLIA [id number] [place] [address] Sodium [Moles/Vol] 144 mmol/L Normal 136-144 [facility] Comment on above: Order Comment: Speci men Type: BLOOD SPECIMEN Performed By: #### 2 777-1, 50539-6, ####[facility]ORYCLIA [id number] [place] [address] Urea nitrogen [Mass/Vol] 22 mg/dL High 7-21 [facility] Comment on above: Order Comment: Speci men Type: BLOOD SPECIMEN Performed By: #### 2 777-1, 87285-0, ####[facility]ORYCLIA [id number] [place] [address] CALCIUM IONIZED Bon 12-30-19 Calcium.ionized (BldV) [Mass/Vol] 1.12 mmol/L Normal 1.08-1.30 [facility] Comment on above: Order Comment: Speci men Type: BLOOD SPECIMEN Performed By: #### I CA ####[facility] LABORATORYCLIA [id number] [place] [address] Calcium.ionized adjusted to pH 7.4 (Bld) [Moles/Vol] 1.11 mmol/L Normal 1.08-1.30 [facility] Comment on above: Order Comment: Speci men Type: BLOOD SPECIMEN Performed By: #### I CA ####[facility] LABORATORYCLIA [id number] [place] [address] CASE MANAGEMon 12-29-2020 CASE MANAGEM Normal [facility] CBC panel Auto (Bld)on 12-29 Erythrocyte distribution width (RBC) [Ratio] 16.9 % High 11.5-15.0 [facility] Comment on above: Order Comment: Speci men Type: BLOOD SPECIMEN Performed By: #### 5 8410-2 ####[facility] LABORATORYCLIA [id number] [place] [address] Hematocrit (Bld) [Volume fraction] 35.5 % Low 36.0-46.0 [facility] Comment on above: Order Comment: Speci men Type: BLOOD SPECIMEN Performed By: #### 5 8410-2 ####[facility] LABORATORYCLIA [id number] [place] [address] Hemoglobin (Bld) [Mass/Vol] 11.5 g/dL Normal 11.5-15.5 [facility] Comment on above: Order Comment: Speci men Type: BLOOD SPECIMEN Performed By: #### 5 8410-2 ####[facility] LABORATORYCLIA [id number] [place] [address] MCH (RBC) [Entitic mass] 28.6 pg Normal 26.0-34.0 [facility] Comment on above: Order Comment: Speci men Type: BLOOD SPECIMEN Performed By: #### 5 8410-2 ####[facility] LABORATORYCLIA [id number] [place] [address] MCHC (RBC) [Mass/Vol] 32.4 g/dL Normal 30.5-36.0 [facility] Comment on above: Order Comment: Speci men Type: BLOOD SPECIMEN Performed By: #### 5 8410-2 ####[facility] LABORATORYCLIA [id number] [place] [address] MCV (RBC) [Entitic vol] 88.3 fL Normal 80.0-100.0 [facility] Comment on above: Order Comment: Speci men Type: BLOOD SPECIMEN Performed By: #### 5 8410-2 ####[facility] LABORATORYCLIA [id number] [place] [address] Nucleated RBC (Bld) [#/Vol] 0.07 10*3/uL High <0.01 [facility] Comment on above: Order Comment: Speci men Type: BLOOD SPECIMEN Performed By: #### 5 8410-2 ####[facility] LABORATORYCLIA [id number] [place] [address] Platelet mean volume (Bld) [Entitic vol] 10.8 fL Normal 9.0-12.7 [facility] Comment on above: Order Comment: Speci men Type: BLOOD SPECIMEN Performed By: #### 5 8410-2 ####[facility] LABORATORYCLIA [id number] [place] [address] Platelets (Bld) [#/Vol] 225 10*3/uL Normal 150-400 [facility] Comment on above: Order Comment: Speci men Type: BLOOD SPECIMEN Performed By: #### 5 8410-2 ####[facility] LABORATORYCLIA [id number] [place] [address] RBC (Bld) [#/Vol] 4.02 10*6/uL Normal 3.90-5.20 [facility] Comment on above: Order Comment: Speci men Type: BLOOD SPECIMEN Performed By: #### 5 8410-2 ####[facility] LABORATORYCLIA [id number] [place] [address] WBC (Bld) [#/Vol] 4.58 10*3/uL Normal 3.70-11.00 [facility] Comment on above: Order Comment: Speci men Type: BLOOD SPECIMEN Performed By: #### 5 8410-2 ####[facility] LABORATORYCLIA [id number] [place] [address] CONSULT PROGon 12-29-2020 CONSULT PROG Normal [facility] Gas and Carbon monoxide pane l (BldV)on 12-29-2020 Base excess Calc (BldV) [Moles/Vol] 0.0 mmol/L Normal 0-2 [facility] Comment on above: Order Comment: Speci men Type: VENOUS BLOOD SPECIMEN Performed By: #### 2 4344-4 ####[facility] LABORATORYCLIA [id number] [place] [address] Body temperature 100.4 [degF] Normal [facility] Comment on above: Order Comment: Speci men Type: VENOUS BLOOD SPECIMEN Performed By: #### 2 4344-4 ####[facility] LABORATORYCLIA [id number] [place] [address] CALCIUM IONIZED, PH CORRECTED 1.14 mmol/L Normal 1.08-1.30 [facility] Comment on above: Order Comment: Speci men Type: VENOUS BLOOD SPECIMEN Performed By: #### 2 4344-4 ####[facility]ORATORYCLIA [id number] [place] [address] Calcium.ionized (BldV) [Mass/Vol] 1.17 mmol/L Normal 1.08-1.30 [facility] Comment on above: Order Comment: Speci men Type: VENOUS BLOOD SPECIMEN Performed By: #### 2 4344-4 ####[facility]ORATORYCLIA [id number] [place] [address] Carboxyhemoglobin (BldV) [Mass fraction] 1.6 % Normal 0.0-2.0 [facility] Comment on above: Order Comment: Speci men Type: VENOUS BLOOD SPECIMEN Result Comment: Carb oxyhemoglobin Reference Range for Smokers: 2.0-8.0% Performed By: #### 2 4344-4 ####[facility] LABORATORYCLIA [id number] [place] [address] CO2 (BldV) [Partial pressure] 45 mm[Hg] Normal 42-55 [facility] Comment on above: Order Comment: Speci men Type: VENOUS BLOOD SPECIMEN Performed By: #### 2 4344-4 ####[facility] LABORATORYCLIA [id number] [place] [address] CO2 [Moles/Vol] 22.9 mmol/L Low 25-29 [facility] Comment on above: Order Comment: Speci men Type: VENOUS BLOOD SPECIMEN Performed By: #### 2 4344-4 ####[facility] LABORATORYCLIA [id number] [place] [address] CO2 adjusted to patient's actual temperature (BldV) [Partial pressure] 47 mmHg Normal 42-55 [facility] Comment on above: Order Comment: Speci men Type: VENOUS BLOOD SPECIMEN Performed By: #### 2 4344-4 ####[facility] LABORATORYCLIA [id number] [place] [address] Glucose [Mass/Vol] 150 mg/dL High 60-105 [facility] Comment on above: Order Comment: Speci men Type: VENOUS BLOOD SPECIMEN Performed By: #### 2 4344-4 ####[facility] LABORATORYCLIA [id number] [place] [address] HCO3 (Bld) [Moles/Vol] 25.1 mmol/L Normal 24-28 [facility] Comment on above: Order Comment: Speci men Type: VENOUS BLOOD SPECIMEN Performed By: #### 2 4344-4 ####[facility] LABORATORYCLIA [id number] [place] [address] Hematocrit (Bld) [Volume fraction] 38.2 % Normal 36.0-46.0 [facility] Comment on above: Order Comment: Speci men Type: VENOUS BLOOD SPECIMEN Performed By: #### 2 4344-4 ####[facility] LABORATORYCLIA [id number] [place] [address] Hemoglobin (Bld) [Mass/Vol] 12.4 g/dL Normal 11.5-15.5 [facility] Comment on above: Order Comment: Speci men Type: VENOUS BLOOD SPECIMEN Performed By: #### 2 4344-4 ####[facility] LABORATORYCLIA [id number] [place] [address] Methemoglobin (Bld) [Mass fraction] 1.0 % Normal 0.0-1.5 [facility] Comment on above: Order Comment: Speci men Type: VENOUS BLOOD SPECIMEN Performed By: #### 2 4344-4 ####[facility] LABORATORYCLIA [id number] [place] [address] O2 THERAPY Positive Normal [facility] Comment on above: Order Comment: Speci men Type: VENOUS BLOOD SPECIMEN Performed By: #### 2 4344-4 ####[facility] LABORATORYCLIA [id number] [place] [address] Oxygen (BldV) [Partial pressure] 48 mm[Hg] High 35-45 [facility] Comment on above: Order Comment: Speci men Type: VENOUS BLOOD SPECIMEN Performed By: #### 2 4344-4 ####[facility] LABORATORYCLIA [id number] [place] [address] Oxygen adjusted to patient's actual temperature (BldV) [Partial pressure] 50.9 mmHg High 35-45 [facility] Comment on above: Order Comment: Speci men Type: VENOUS BLOOD SPECIMEN Performed By: #### 2 4344-4 ####[facility] LABORATORYCLIA [id number] [place] [address] Oxygen saturation in Blood 81.1 % Normal 60-85 [facility] Comment on above: Order Comment: Speci men Type: VENOUS BLOOD SPECIMEN Performed By: #### 2 4344-4 ####[facility] LABORATORYCLIA [id number] [place] [address] Oxyhemoglobin (BldV) [Mass fraction] 79 % Normal 60-85 [facility] Comment on above: Order Comment: Speci men Type: VENOUS BLOOD SPECIMEN Performed By: #### 2 4344-4 ####[facility] LABORATORYCLIA [id number] [place] [address] pH (BldV) 7.36 [pH] Normal 7.32-7.42 [facility] Comment on above: Order Comment: Speci men Type: VENOUS BLOOD SPECIMEN Performed By: #### 2 4344-4 ####[facility] LABORATORYCLIA [id number] [place] [address] pH adjusted to patient's actual temperature (BldV) 7.35 Normal 7.32-7.42 [facility] Comment on above: Order Comment: Speci men Type: VENOUS BLOOD SPECIMEN Performed By: #### 2 4344-4 ####[facility] LABORATORYCLIA [id number] [place] [address] Potassium [Moles/Vol] 4.1 mmol/L Normal 3.5-5.0 [facility] Comment on above: Order Comment: Speci men Type: VENOUS BLOOD SPECIMEN Performed By: #### 2 4344-4 ####[facility] LABORATORYCLIA [id number] [place] [address] Sodium [Moles/Vol] 144 mmol/L Normal 136-144 [facility] Comment on above: Order Comment: Speci men Type: VENOUS BLOOD SPECIMEN Performed By: #### 2 4344-4 ####[facility] LABORATORYCLIA [id number] [place] [address] Lactate (Bld) [Moles/Vol]on 12-29-2020 Lactate [Moles/Vol] 1.5 mmol/L Normal 0.5-2.2 [facility] Comment on above: Order Comment: Speci men Type: BLOOD SPECIMEN Performed By: #### 3 2693-4 ####[facility] LABORATORYCLIA [id number] [place] [address] Magnesium SerPl-mCncon 12-29 Magnesium [Mass/Vol] 2.4 mg/dL High 1.7-2.3 [facility] Comment on above: Order Comment: Speci men Type: BLOOD SPECIMEN Performed By: #### 2 777-1, 55370-3, 00452-0 ####[facility] LABORATORYCLIA [id number] [place] [address] PT EDon 12-29-2020 PT ED Normal [facility] Phosphate SerPl-mCncon 12-29 Phosphate [Mass/Vol] 4.5 mg/dL Normal 2.7-4.8 [facility] Comment on above: Order Comment: Speci men Type: BLOOD SPECIMEN Performed By: #### 2 777-1, 55672-6, ####[facility] LABORATORYCLIA [id number] [place] [address] THERAPY NTon 12-29-2020 THERAPY NT Normal [facility] XR ABDOMEN 1V SUPINEon 12-29 XR ABDOMEN 1V SUPINE Normal [facility] XR CHEST 1V FRONTALon 2020 XR CHEST 1V FRONTAL Normal [facility] ALLIED HEALTHon 12-28-2020 ALLIED HEALTH Normal [facility] ALLIED HEALTH Normal [facility] ALLIED HEALTH Normal [facility] ARTERIAL BLOOD GASESon 12-28 BASE DEFICIT, ARTERIAL -1.4 mmol/L Normal -2-0 [facility] Comment on above: Order Comment: Speci men Type: ARTERIAL BLOOD SPECIMEN Performed By: #### A LLBG ####[facility] LABORATORYCLIA [id number] [place] [address] Body temperature 98.24 [degF] Normal [facility] Comment on above: Order Comment: Speci men Type: ARTERIAL BLOOD SPECIMEN Performed By: #### A LLBG ####[facility] LABORATORYCLIA [id number] [place] [address] CALCIUM IONIZED, PH CORRECTED 1.11 mmol/L Normal 1.08-1.30 [facility] Comment on above: Order Comment: Speci men Type: ARTERIAL BLOOD SPECIMEN Performed By: #### A LLBG ####[facility] LABORATORYCLIA [id number] [place] [address] Calcium.ionized (BldV) [Mass/Vol] 1.18 mmol/L Normal 1.08-1.30 [facility] Comment on above: Order Comment: Speci men Type: ARTERIAL BLOOD SPECIMEN Performed By: #### A LLBG ####[facility] LABORATORYCLIA [id number] [place] [address] Carboxyhemoglobin (BldA) [Mass fraction] 1.2 % Normal 0.0-2.0 [facility] Comment on above: Order Comment: Speci men Type: ARTERIAL BLOOD SPECIMEN Result Comment: Carb oxyhemoglobin Reference Range for Smokers: 2.0-8.0% Performed By: #### A LLBG ####[facility] LABORATORYCLIA [id number] [place] [address] CO2 (Bld) [Partial pressure] 54 mm Hg High 36-46 [facility] Comment on above: Order Comment: Speci men Type: ARTERIAL BLOOD SPECIMEN Performed By: #### A LLBG ####[facility] LABORATORYCLIA [id number] [place] [address] CO2 [Moles/Vol] 23.6 mmol/L Normal 22-28 [facility] Comment on above: Order Comment: Speci men Type: ARTERIAL BLOOD SPECIMEN Performed By: #### A LLBG ####[facility] LABORATORYCLIA [id number] [place] [address] CO2 adjusted to patient's actual temperature (Bld) [Partial pressure] 54 mmHg High 36-46 [facility] Comment on above: Order Comment: Speci men Type: ARTERIAL BLOOD SPECIMEN Performed By: #### A LLBG ####[facility] LABORATORYCLIA [id number] [place] [address] Glucose [Mass/Vol] 103 mg/dL Normal 60-105 [facility] Comment on above: Order Comment: Speci men Type: ARTERIAL BLOOD SPECIMEN Performed By: #### A LLBG ####[facility] LABORATORYCLIA [id number] [place] [address] HCO3 (Bld) [Moles/Vol] 25 mmol/L Normal 22-26 [facility] Comment on above: Order Comment: Speci men Type: ARTERIAL BLOOD SPECIMEN Performed By: #### A LLBG ####[facility] LABORATORYCLIA [id number] [place] [address] Hematocrit (Bld) [Volume fraction] 35.1 % Low 36.0-46.0 [facility] Comment on above: Order Comment: Speci men Type: ARTERIAL BLOOD SPECIMEN Performed By: #### A LLBG ####[facility] LABORATORYCLIA [id number] [place] [address] Hemoglobin (Bld) [Mass/Vol] 11.4 g/dL Low 11.5-15.5 [facility] Comment on above: Order Comment: Speci men Type: ARTERIAL BLOOD SPECIMEN Performed By: #### A LLBG ####[facility] LABORATORYCLIA [id number] [place] [address] Methemoglobin (Bld) [Mass fraction] 1.2 % Normal 0.0-1.5 [facility] Comment on above: Order Comment: Speci men Type: ARTERIAL BLOOD SPECIMEN Performed By: #### A LLBG ####[facility] LABORATORYCLIA [id number] [place] [address] O2 THERAPY NC = Nasal Cannula Normal [facility] Comment on above: Order Comment: Speci men Type: ARTERIAL BLOOD SPECIMEN Result Comment: 8L Performed By: #### A LLBG ####[facility] LABORATORYCLIA [id number] [place] [address] Oxygen (Bld) [Partial pressure] 92 mm Hg Normal 85-95 [facility] Comment on above: Order Comment: Speci men Type: ARTERIAL BLOOD SPECIMEN Performed By: #### A LLBG ####[facility] LABORATORYCLIA [id number] [place] [address] Oxygen adjusted to patient's actual temperature (Bld) [Partial pressure] 90.9 mmHg Normal 85-95 [facility] Comment on above: Order Comment: Speci men Type: ARTERIAL BLOOD SPECIMEN Performed By: #### A LLBG ####[facility] LABORATORYCLIA [id number] [place] [address] OXYGEN SATURATION, ARTERIAL 96 % Normal 95-98 [facility] Comment on above: Order Comment: Speci men Type: ARTERIAL BLOOD SPECIMEN Performed By: #### A LLBG ####[facility] LABORATORYCLIA [id number] [place] [address] Oxyhemoglobin (BldA) [Mass fraction] 94 % Low 95-98 [facility] Comment on above: Order Comment: Speci men Type: ARTERIAL BLOOD SPECIMEN Performed By: #### A LLBG ####[facility] LABORATORYCLIA [id number] [place] [address] pH (Bld) 7.29 [pH] Low 7.35-7.45 [facility] Comment on above: Order Comment: Speci men Type: ARTERIAL BLOOD SPECIMEN Performed By: #### A LLBG ####[facility] LABORATORYCLIA [id number] [place] [address] pH adjusted to patient's actual temperature (Bld) 7.29 Low 7.35-7.45 [facility] Comment on above: Order Comment: Speci men Type: ARTERIAL BLOOD SPECIMEN Performed By: #### A LLBG ####[facility] LABORATORYCLIA [id number] [place] [address] Potassium [Moles/Vol] 3.7 mmol/L Normal 3.5-5.0 [facility] Comment on above: Order Comment: Speci men Type: ARTERIAL BLOOD SPECIMEN Performed By: #### A LLBG ####[facility] LABORATORYCLIA [id number] [place] [address] Sodium [Moles/Vol] 144 mmol/L Normal 136-144 [facility] Comment on above: Order Comment: Speci men Type: ARTERIAL BLOOD SPECIMEN Performed By: #### A LLBG ####[facility] LABORATORYCLIA [id number] [place] [address] Basic metabolic 2000 panelon 12-28-2020 Anion gap [Moles/Vol] 7 mmol/L Low 9-18 [facility] Comment on above: Order Comment: Speci men Type: BLOOD SPECIMEN Performed By: #### 1 9123-9, 35124-3, 2776-08 ####[facility] LABORATORYCLIA [id number] [place] [address] Calcium [Mass/Vol] 7.1 mg/dL Low 8.5-10.2 [facility] Comment on above: Order Comment: Speci men Type: BLOOD SPECIMEN Performed By: #### 1 9123-9, 21620-6, 2776-08 ####[facility] LABORATORYCLIA [id number] [place] [address] Chloride [Moles/Vol] 117 mmol/L High 97-105 [facility] Comment on above: Order Comment: Speci men Type: BLOOD SPECIMEN Performed By: #### 1 9123-9, 83585-4, 2776-08 ####[facility] LABORATORYCLIA [id number] [place] [address] CO2 [Moles/Vol] 23 mmol/L Normal 22-30 [facility] Comment on above: Order Comment: Speci men Type: BLOOD SPECIMEN Performed By: #### 1 9123-9, 59213-9, 2776-08 ####[facility] LABORATORYCLIA [id number] [place] [address] Creatinine [Mass/Vol] 0.99 mg/dL High 0.58-0.96 [facility] Comment on above: Order Comment: Riki camacho Type: BLOOD SPECIMEN Performed By: #### 1 9123-9, 18645-4, 2776-08 ####[facility] LABORATORYCLIA [id number] [place] [address] GFR/1.73 sq M.predicted MDRD (S/P/Bld) [Vol rate/Area] mL/min/{1.73_m2} Normal [facility] Comment on above: Order Comment: Speci men Type: BLOOD SPECIMEN Result Comment: 56eG FR (Estimated GFR) Units of measure: mL/min/1.73 meters squaredeGFR is derived from the reexpressed MDRD Study equation using the following parameters: serum creatinine, age, gender and race. The creatinine assay has been calibrated to be traceable to IDMS. An eGFR <60 mL/min/1.73m2 for >3 months is consistent with chronic kidney disease. Refer to KDOQI guidelines for clinical interpretation. In patients with unstable renal function, e.g. those with acute kidney injury, the eGFR may not accurately reflect actual GFR. Performed By: #### 1 9123-9, 48893-8, 2776-08 ####[facility] LABORATORYCLIA [id number] [place] [address] Glucose [Mass/Vol] 179 mg/dL High 74-99 [facility] Comment on above: Order Comment: Riki camacho Type: BLOOD SPECIMEN Result Comment: The [employer] Diabetes [employer] (ADA) provides guidance for cutoff values for fasting glucose and random glucose. The ADA defines fasting as no caloric intake for at least 8 hours. Fasting plasma glucose results between 100 to 125 mg/dL indicate increased risk for diabetes (prediabetes).Fasting plasma glucose results greater than or equal to 126 mg/dL meet the criteria for diagnosis of diabetes. In the absence of unequivocal hyperglycemia, results should be confirmed by repeat testing. In a patient with classic symptoms of hyperglycemia or hyperglycemic crisis, random plasma glucose results greater than or equal to 200 mg/dL meet the criteria for diagnosis of diabetes.Reference: Standards of Medical Care in Diabetes 2016, [employer]. Diabetes Care. 2016.39(Suppl 1). Performed By: #### 1 9123-9, 60388-7, 2776-08 ####[facility] LABORATORYCLIA [id number] [place] [address] Potassium [Moles/Vol] 3.8 mmol/L Normal 3.7-5.1 [facility] Comment on above: Order Comment: Speci men Type: BLOOD SPECIMEN Performed By: #### 1 9123-9, 48443-7, 2777-1 ####[facility] LABORATORYCLIA [id number] [place] [address] Sodium [Moles/Vol] 147 mmol/L High 136-144 [facility] Comment on above: Order Comment: Speci men Type: BLOOD SPECIMEN Performed By: #### 1 9123-9, 38471-3, 2777-1 ####[facility] LABORATORYCLIA [id number] [place] [address] Urea nitrogen [Mass/Vol] 32 mg/dL High 7-21 [facility] Comment on above: Order Comment: Speci men Type: BLOOD SPECIMEN Performed By: #### 1 9123-9, 57524-8, 277- ####[facility] LABORATORYCLIA [id number] [place] [address] CALCIUM IONIZED Bon 12-29-19 Calcium.ionized (BldV) [Mass/Vol] 1.10 mmol/L Normal 1.08-1.30 [facility] Comment on above: Order Comment: Speci men Type: BLOOD SPECIMEN Performed By: #### I CA ####[facility] LABORATORYCLIA [id number] [place] [address] Calcium.ionized adjusted to pH 7.4 (Bld) [Moles/Vol] 1.10 mmol/L Normal 1.08-1.30 [facility] Comment on above: Order Comment: Speci men Type: BLOOD SPECIMEN Performed By: #### I CA ####[facility] LABORATORYCLIA [id number] [place] [address] CBC panel Auto (Bld)on 12-28 Erythrocyte distribution width (RBC) [Ratio] 16.6 % High 11.5-15.0 [facility] Comment on above: Order Comment: Speci men Type: BLOOD SPECIMEN Performed By: #### 5 8410-2 ####[facility] LABORATORYCLIA [id number] [place] [address] Hematocrit (Bld) [Volume fraction] 34.4 % Low 36.0-46.0 [facility] Comment on above: Order Comment: Speci men Type: BLOOD SPECIMEN Performed By: #### 5 8410-2 ####[facility] LABORATORYCLIA [id number] [place] [address] Hemoglobin (Bld) [Mass/Vol] 11.6 g/dL Normal 11.5-15.5 [facility] Comment on above: Order Comment: Speci men Type: BLOOD SPECIMEN Performed By: #### 5 8410-2 ####[facility] LABORATORYCLIA [id number] [place] [address] MCH (RBC) [Entitic mass] 29.1 pg Normal 26.0-34.0 [facility] Comment on above: Order Comment: Speci men Type: BLOOD SPECIMEN Performed By: #### 5 8410-2 ####[facility] LABORATORYCLIA [id number] [place] [address] MCHC (RBC) [Mass/Vol] 33.7 g/dL Normal 30.5-36.0 [facility] Comment on above: Order Comment: Speci men Type: BLOOD SPECIMEN Performed By: #### 5 8410-2 ####[facility] LABORATORYCLIA [id number] [place] [address] MCV (RBC) [Entitic vol] 86.2 fL Normal 80.0-100.0 [facility] Comment on above: Order Comment: Speci men Type: BLOOD SPECIMEN Performed By: #### 5 8410-2 ####[facility] LABORATORYCLIA [id number] [place] [address] Nucleated RBC (Bld) [#/Vol] 0.09 10*3/uL High <0.01 [facility] Comment on above: Order Comment: Speci men Type: BLOOD SPECIMEN Performed By: #### 5 8410-2 ####[facility] LABORATORYCLIA [id number] [place] [address] Platelet mean volume (Bld) [Entitic vol] 10.5 fL Normal 9.0-12.7 [facility] Comment on above: Order Comment: Speci men Type: BLOOD SPECIMEN Performed By: #### 5 8410-2 ####[facility] LABORATORYCLIA [id number] [place] [address] Platelets (Bld) [#/Vol] 193 10*3/uL Normal 150-400 [facility] Comment on above: Order Comment: Speci men Type: BLOOD SPECIMEN Performed By: #### 5 8410-2 ####[facility] LABORATORYCLIA [id number] [place] [address] RBC (Bld) [#/Vol] 3.99 10*6/uL Normal 3.90-5.20 [facility] Comment on above: Order Comment: Speci men Type: BLOOD SPECIMEN Performed By: #### 5 8410-2 ####[facility] LABORATORYCLIA [id number] [place] [address] WBC (Bld) [#/Vol] 10.32 10*3/uL Normal 3.70-11.00 [facility] Comment on above: Order Comment: Speci men Type: BLOOD SPECIMEN Performed By: #### 5 8410-2 ####[facility] LABORATORYCLIA [id number] [place] [address] Erythrocyte distribution width (RBC) [Ratio] 15.9 % High 11.5-15.0 [facility] Comment on above: Order Comment: Speci men Type: BLOOD SPECIMEN Performed By: #### 5 8410-2 ####[facility]ORATORYCLIA [id number] [place] [address] Hematocrit (Bld) [Volume fraction] 24.5 % Low 36.0-46.0 [facility] Comment on above: Order Comment: Speci men Type: BLOOD SPECIMEN Performed By: #### 5 8410-2 ####[facility]ORATORYCLIA [id number] [place] [address] Hemoglobin (Bld) [Mass/Vol] 7.7 g/dL Low 11.5-15.5 [facility] Comment on above: Order Comment: Speci men Type: BLOOD SPECIMEN Performed By: #### 5 8410-2 ####[facility]ATORYCLIA [id number] [place] [address] MCH (RBC) [Entitic mass] 28.9 pg Normal 26.0-34.0 [facility] Comment on above: Order Comment: Speci men Type: BLOOD SPECIMEN Performed By: #### 5 8410-2 ####[facility]ATORYCLIA [id number] [place] [address] MCHC (RBC) [Mass/Vol] 31.4 g/dL Normal 30.5-36.0 [facility] Comment on above: Order Comment: Speci men Type: BLOOD SPECIMEN Performed By: #### 5 8410-2 ####[facility]ATORYCLIA [id number] [place] [address] MCV (RBC) [Entitic vol] 92.1 fL Normal 80.0-100.0 [facility] Comment on above: Order Comment: Speci men Type: BLOOD SPECIMEN Performed By: #### 5 8410-2 ####[facility]ATORYCLIA [id number] [place] [address] Nucleated RBC (Bld) [#/Vol] 0.05 10*3/uL High <0.01 [facility] Comment on above: Order Comment: Speci men Type: BLOOD SPECIMEN Performed By: #### 5 8410-2 ####[facility]ATORYCLIA [id number] [place] [address] Platelet mean volume (Bld) [Entitic vol] 11.6 fL Normal 9.0-12.7 [facility] Comment on above: Order Comment: Speci men Type: BLOOD SPECIMEN Performed By: #### 5 8410-2 ####[facility]ATORYCLIA [id number] [place] [address] Platelets (Bld) [#/Vol] 179 10*3/uL Normal 150-400 [facility] Comment on above: Order Comment: Speci men Type: BLOOD SPECIMEN Performed By: #### 5 8410-2 ####[facility]ATORYCLIA [id number] [place] [address] RBC (Bld) [#/Vol] 2.66 10*6/uL Low 3.90-5.20 [facility] Comment on above: Order Comment: Speci men Type: BLOOD SPECIMEN Performed By: #### 5 8410-2 ####[facility]ATORYCLIA [id number] [place] [address] WBC (Bld) [#/Vol] 9.06 10*3/uL Normal 3.70-11.00 [facility] Comment on above: Order Comment: Speci men Type: BLOOD SPECIMEN Performed By: #### 5 8410-2 ####[facility]ATORYCLIA [id number] [place] [address] CONSULT PROGon 12-28-2020 CONSULT PROG Normal [facility] CT ABD/PEL W IVCONon 021 CT ABD/PEL W IVCON Normal [facility] CT BRAIN WO IVCONon 12-29-[address] BRAIN WO IVCON Normal [facility] HIGH SENSITIVITY TROPONIN To n 12-28-2020 HIGH SENSITIVITY MARIAM 8 ng/L Normal <12 [facility] Comment on above: Order Comment: Speci men Type: BLOOD SPECIMEN Result Comment: When assessing risk for acute coronary syndromes: In patients undergoing blood draw greater than or equal to 2 hours from symptom onset, with history of very low to moderate risk and non-ischemic ECG, an initial hs-Troponin T less than 12 ng/L AND a 1 hour delta hs-Troponin T less than 3 ng/L should be considered very low risk for 30 day MACE. Performed By: #### H STNT ####[facility]ORATORYCLIA [id number] [place] [address] Lactate (Bld) [Moles/Vol]on 12-28-2020 Lactate [Moles/Vol] 0.9 mmol/L Normal 0.5-2.2 [facility] Comment on above: Order Comment: Speci men Type: BLOOD SPECIMEN Performed By: #### 3 2693-4 ####[facility]ATORYCLIA [id number] [place] [address] Magnesium SerPl-ncon 12-28 Magnesium [Mass/Vol] 2.6 mg/dL High 1.7-2.3 [facility] Comment on above: Order Comment: Speci men Type: BLOOD SPECIMEN Performed By: #### 1 9123-9, 01292-9, 2777-1 ####[facility]ATORYCLIA [id number] [place] [address] NURSING PROGon 12-28-2020 NURSING PROG Normal [facility] NUTRITIONon 12-28-2020 NUTRITION Normal [facility] Phosphate SerPl-mCncon 12-28 Phosphate [Mass/Vol] 2.9 mg/dL Normal 2.7-4.8 [facility] Comment on above: Order Comment: Speci men Type: BLOOD SPECIMEN Performed By: #### 1 9123-9, 22989-9, 2777-1 ####[facility]ATORYCLIA [id number] [place] [address] TYPE AND SCREENon 12-28-2020 ABO A Normal [facility] Comment on above: Order Comment: Speci men Type: BLOOD SPECIMEN Performed By: #### T SCR ####[facility] BANKCLIA [id number] [place] [address] HISTORICAL AB SCR STATUS Negative [facility] Comment on above: Order Comment: Speci men Type: BLOOD SPECIMEN Performed By: #### T SCR ####[facility] BANKCLIA [id number] [place] [address] Rh Nom (Bld) Positive [facility] Comment on above: Order Comment: Speci men Type: BLOOD SPECIMEN Performed By: #### T SCR ####[facility]ANKCLIA [id number] [place] [address] TYPE AND SCREEN EXPIRATION 12/31/2020 23:59 Normal [facility] Comment on above: Order Comment: Speci men Type: BLOOD SPECIMEN Performed By: #### T SCR ####[facility] BANKCLIA [id number] [place] [address] XR ABDOMEN 1V SUPINEon 12-28 XR ABDOMEN 1V SUPINE Normal [facility] XR CHEST 1V FRONTALon 2020 XR CHEST 1V FRONTAL Normal [facility] ALLIED HEALTHon 12-27-2020 ALLIED HEALTH Normal [facility] Basic metabolic 2000 panelon 12-27-2020 Anion gap [Moles/Vol] 7 mmol/L Low 9-18 [facility] Comment on above: Order Comment: Speci men Type: BLOOD SPECIMEN Performed By: #### 2 4321-2, , 2776-08 ####[facility]ORATORYCLIA [id number] [place] [address] Calcium [Mass/Vol] 7.3 mg/dL Low 8.5-10.2 [facility] Comment on above: Order Comment: Speci men Type: BLOOD SPECIMEN Performed By: #### 2 4321-2, , 2776-08 ####[facility]ORATORYCLIA [id number] [place] [address] Chloride [Moles/Vol] 114 mmol/L High 97-105 [facility] Comment on above: Order Comment: Speci men Type: BLOOD SPECIMEN Performed By: #### 2 4321-2, , 2776-08 ####[facility]ORYCLIA [id number] [place] [address] CO2 [Moles/Vol] 22 mmol/L Normal 22-30 [facility] Comment on above: Order Comment: Speci men Type: BLOOD SPECIMEN Performed By: #### 2 4321-2, , 2776-08 ####[facility]ATORYCLIA [id number] [place] [address] Creatinine [Mass/Vol] 1.02 mg/dL High 0.58-0.96 [facility] Comment on above: Order Comment: Speci men Type: BLOOD SPECIMEN Performed By: #### 2 4321-2, , 2776-08 ####[facility]ORATORYCLIA [id number] [place] [address] GFR/1.73 sq M.predicted MDRD (S/P/Bld) [Vol rate/Area] mL/min/{1.73_m2} Normal [facility] Comment on above: Order Comment: Speci men Type: BLOOD SPECIMEN Result Comment: 54eG FR (Estimated GFR) Units of measure: mL/min/1.73 meters squaredeGFR is derived from the reexpressed MDRD Study equation using the following parameters: serum creatinine, age, gender and race. The creatinine assay has been calibrated to be traceable to IDMS. An eGFR <60 mL/min/1.73m2 for >3 months is consistent with chronic kidney disease. Refer to KDOQI guidelines for clinical interpretation. In patients with unstable renal function, e.g. those with acute kidney injury, the eGFR may not accurately reflect actual GFR. Performed By: #### 2 4321-2, , 2776-08 ####[facility]ITALCLIA [id number] [place] [address] Glucose [Mass/Vol] 169 mg/dL High 74-99 [facility] Comment on above: Order Comment: Speci men Type: BLOOD SPECIMEN Result Comment: The [employer] Diabetes Association (ADA) provides guidance for cutoff values for fasting glucose and random glucose. The ADA defines fasting as no caloric intake for at least 8 hours. Fasting plasma glucose results between 100 to 125 mg/dL indicate increased risk for diabetes (prediabetes).Fasting plasma glucose results greater than or equal to 126 mg/dL meet the criteria for diagnosis of diabetes. In the absence of unequivocal hyperglycemia, results should be confirmed by repeat testing. In a patient with classic symptoms of hyperglycemia or hyperglycemic crisis, random plasma glucose results greater than or equal to 200 mg/dL meet the criteria for diagnosis of diabetes.Reference: Standards of Medical Care in Diabetes 2016, [employer]. Diabetes Care. 2016.39(Suppl 1). Performed By: #### 2 4321-2, , 2776-08 ####[facility]ORATORYCLIA [id number] [place] [address] Potassium [Moles/Vol] 3.5 mmol/L Low 3.7-5.1 [facility] Comment on above: Order Comment: Speci men Type: BLOOD SPECIMEN Performed By: #### 2 4321-2, 54464-1, 2776- ####[facility]ORATORYCLIA [id number] [place] [address] Sodium [Moles/Vol] 143 mmol/L Normal 136-144 [facility] Comment on above: Order Comment: Speci men Type: BLOOD SPECIMEN Performed By: #### 2 4321-2, , 2776-08 ####[facility]ORATORYCLIA [id number] [place] [address] Urea nitrogen [Mass/Vol] 22 mg/dL High 7-21 [facility] Comment on above: Order Comment: Speci men Type: BLOOD SPECIMEN Performed By: #### 2 4321-2, , 2776-08 ####[facility]ATORYCLIA [id number] [place] [address] CALCIUM IONIZED Bon 12-28-19 Calcium.ionized (BldV) [Mass/Vol] 1.12 mmol/L Normal 1.08-1.30 [facility] Comment on above: Order Comment: Speci men Type: BLOOD SPECIMEN Performed By: #### I CA ####[facility]ORATORYCLIA [id number] [place] [address] Calcium.ionized adjusted to pH 7.4 (Bld) [Moles/Vol] 1.13 mmol/L Normal 1.08-1.30 [facility] Comment on above: Order Comment: Speci men Type: BLOOD SPECIMEN Performed By: #### I CA ####[facility]ATORYCLIA [id number] [place] [address] CBC panel Auto (Bld)on 12-27 Erythrocyte distribution width (RBC) [Ratio] 15.8 % High 11.5-15.0 [facility] Comment on above: Order Comment: Speci men Type: BLOOD SPECIMEN Performed By: #### 5 8410-2 ####[facility]ORATORYCLIA [id number] [place] [address] Hematocrit (Bld) [Volume fraction] 30.4 % Low 36.0-46.0 [facility] Comment on above: Order Comment: Speci men Type: BLOOD SPECIMEN Performed By: #### 5 8410-2 ####[facility]ATORYCLIA [id number] [place] [address] Hemoglobin (Bld) [Mass/Vol] 9.9 g/dL Low 11.5-15.5 [facility] Comment on above: Order Comment: Speci men Type: BLOOD SPECIMEN Performed By: #### 5 8410-2 ####[facility]ORATORYCLIA [id number] [place] [address] MCH (RBC) [Entitic mass] 29.3 pg Normal 26.0-34.0 [facility] Comment on above: Order Comment: Speci men Type: BLOOD SPECIMEN Performed By: #### 5 8410-2 ####[facility]ATORYCLIA [id number] [place] [address] MCHC (RBC) [Mass/Vol] 32.6 g/dL Normal 30.5-36.0 [facility] Comment on above: Order Comment: Speci men Type: BLOOD SPECIMEN Performed By: #### 5 8410-2 ####[facility]ATORYCLIA [id number] [place] [address] MCV (RBC) [Entitic vol] 89.9 fL Normal 80.0-100.0 [facility] Comment on above: Order Comment: Speci men Type: BLOOD SPECIMEN Performed By: #### 5 8410-2 ####[facility]ATORYCLIA [id number] [place] [address] Nucleated RBC (Bld) [#/Vol] 10*3/uL Normal <0.01 [facility] Comment on above: Order Comment: Speci men Type: BLOOD SPECIMEN Performed By: #### 5 8410-2 ####[facility]ATORYCLIA [id number] [place] [address] Platelet mean volume (Bld) [Entitic vol] 10.9 fL Normal 9.0-12.7 [facility] Comment on above: Order Comment: Speci men Type: BLOOD SPECIMEN Performed By: #### 5 8410-2 ####[facility]ATORYCLIA [id number] [place] [address] Platelets (Bld) [#/Vol] 175 10*3/uL Normal 150-400 [facility] Comment on above: Order Comment: Speci men Type: BLOOD SPECIMEN Performed By: #### 5 8410-2 ####[facility]ATORYCLIA [id number] [place] [address] RBC (Bld) [#/Vol] 3.38 10*6/uL Low 3.90-5.20 [facility] Comment on above: Order Comment: Speci men Type: BLOOD SPECIMEN Performed By: #### 5 8410-2 ####[facility]ATORYCLIA [id number] [place] [address] WBC (Bld) [#/Vol] 13.19 10*3/uL High 3.70-11.00 [facility] Comment on above: Order Comment: Speci men Type: BLOOD SPECIMEN Performed By: #### 5 8410-2 ####[facility]ATORYCLIA [id number] [place] [address] CONSULT PROGon 12-27-2020 CONSULT PROG Normal [facility] Magnesium SerPl-mCncon 12-27 Magnesium [Mass/Vol] 2.8 mg/dL High 1.7-2.3 [facility] Comment on above: Order Comment: Speci men Type: BLOOD SPECIMEN Performed By: #### 2 4321-2, 22672-9, 2777-1 ####[facility]ORATORYCLIA [id number] [place] [address] NURSING PROGon 12-27-2020 NURSING PROG Normal [facility] NURSING PROG Normal [facility] Phosphate SerPl-mCncon 12-27 Phosphate [Mass/Vol] 2.7 mg/dL Normal 2.7-4.8 [facility] Comment on above: Order Comment: Speci men Type: BLOOD SPECIMEN Performed By: #### 2 4321-2, 15890-2, 2777-1 ####[facility]ORATORYCLIA [id number] [place] [address] XR CHEST 1V FRONTALon 2020 XR CHEST 1V FRONTAL Normal [facility] ALLIED HEALTHon 12-26-2020 ALLIED HEALTH Normal [facility] ARTERIAL BLOOD GASESon 12-26 BASE DEFICIT, ARTERIAL -1.0 mmol/L Normal -2-0 [facility] Comment on above: Order Comment: Speci men Type: ARTERIAL BLOOD SPECIMEN Performed By: #### A LLBG ####[facility]ORATORYCLIA [id number] [place] [address] Body temperature 99.68 [degF] Normal [facility] Comment on above: Order Comment: Speci men Type: ARTERIAL BLOOD SPECIMEN Performed By: #### A LLBG ####[facility]ORATORYCLIA [id number] [place] [address] CALCIUM IONIZED, PH CORRECTED 1.14 mmol/L Normal 1.08-1.30 [facility] Comment on above: Order Comment: Speci men Type: ARTERIAL BLOOD SPECIMEN Performed By: #### A LLBG ####[facility]ATORYCLIA [id number] [place] [address] Calcium.ionized (BldV) [Mass/Vol] 1.12 mmol/L Normal 1.08-1.30 [facility] Comment on above: Order Comment: Speci men Type: ARTERIAL BLOOD SPECIMEN Performed By: #### A LLBG ####[facility]ORATORYCLIA [id number] [place] [address] Carboxyhemoglobin (BldA) [Mass fraction] 1.2 % Normal 0.0-2.0 [facility] Comment on above: Order Comment: Speci men Type: ARTERIAL BLOOD SPECIMEN Result Comment: Carb oxyhemoglobin Reference Range for Smokers: 2.0-8.0% Performed By: #### A LLBG ####[facility]ATORYCLIA [id number] [place] [address] CO2 (Bld) [Partial pressure] 33 mm Hg Low 36-46 [facility] Comment on above: Order Comment: Speci men Type: ARTERIAL BLOOD SPECIMEN Performed By: #### A LLBG ####[facility]ATORYCLIA [id number] [place] [address] CO2 [Moles/Vol] 20.1 mmol/L Low 22-28 [facility] Comment on above: Order Comment: Speci men Type: ARTERIAL BLOOD SPECIMEN Performed By: #### A LLBG ####[facility]ATORYCLIA [id number] [place] [address] CO2 adjusted to patient's actual temperature (Bld) [Partial pressure] 34 mmHg Low 36-46 [facility] Comment on above: Order Comment: Speci men Type: ARTERIAL BLOOD SPECIMEN Performed By: #### A LLBG ####[facility]ORYCLIA [id number] [place] [address] FIO2 30 % Normal [facility] Comment on above: Order Comment: Speci men Type: ARTERIAL BLOOD SPECIMEN Performed By: #### A LLBG ####[facility]ATORYCLIA [id number] [place] [address] Glucose [Mass/Vol] 160 mg/dL High 60-105 [facility] Comment on above: Order Comment: Speci men Type: ARTERIAL BLOOD SPECIMEN Performed By: #### A LLBG ####[facility]ORYCLIA [id number] [place] [address] HCO3 (Bld) [Moles/Vol] 22 mmol/L Normal 22-26 [facility] Comment on above: Order Comment: Speci men Type: ARTERIAL BLOOD SPECIMEN Performed By: #### A LLBG ####[facility]ORYCLIA [id number] [place] [address] Hematocrit (Bld) [Volume fraction] 33.9 % Low 36.0-46.0 [facility] Comment on above: Order Comment: Speci men Type: ARTERIAL BLOOD SPECIMEN Performed By: #### A LLBG ####[facility]ORYCLIA [id number] [place] [address] Hemoglobin (Bld) [Mass/Vol] 11.0 g/dL Low 11.5-15.5 [facility] Comment on above: Order Comment: Speci men Type: ARTERIAL BLOOD SPECIMEN Performed By: #### A LLBG ####[facility]ORYCLIA [id number] [place] [address] Methemoglobin (Bld) [Mass fraction] 1.1 % Normal 0.0-1.5 [facility] Comment on above: Order Comment: Speci men Type: ARTERIAL BLOOD SPECIMEN Performed By: #### A LLBG ####[facility]ORYCLIA [id number] [place] [address] O2 THERAPY Ventilator Normal [facility] Comment on above: Order Comment: Speci men Type: ARTERIAL BLOOD SPECIMEN Performed By: #### A LLBG ####[facility]ATORYCLIA [id number] [place] [address] Oxygen (Bld) [Partial pressure] 85 mm Hg Normal 85-95 [facility] Comment on above: Order Comment: Speci men Type: ARTERIAL BLOOD SPECIMEN Performed By: #### A LLBG ####[facility]ORYCLIA [id number] [place] [address] Oxygen adjusted to patient's actual temperature (Bld) [Partial pressure] 87.7 mmHg Normal 85-95 [facility] Comment on above: Order Comment: Speci men Type: ARTERIAL BLOOD SPECIMEN Performed By: #### A LLBG ####[facility]ATORYCLIA [id number] [place] [address] OXYGEN SATURATION, ARTERIAL 97 % Normal 95-98 [facility] Comment on above: Order Comment: Speci men Type: ARTERIAL BLOOD SPECIMEN Performed By: #### A LLBG ####[facility]ATORYCLIA [id number] [place] [address] Oxyhemoglobin (BldA) [Mass fraction] 95 % Normal 95-98 [facility] Comment on above: Order Comment: Speci men Type: ARTERIAL BLOOD SPECIMEN Performed By: #### A LLBG ####[facility]ATORYCLIA [id number] [place] [address] pH (Bld) 7.44 [pH] Normal 7.35-7.45 [facility] Comment on above: Order Comment: Speci men Type: ARTERIAL BLOOD SPECIMEN Performed By: #### A LLBG ####[facility]ORYCLIA [id number] [place] [address] pH adjusted to patient's actual temperature (Bld) 7.43 Normal 7.35-7.45 [facility] Comment on above: Order Comment: Speci men Type: ARTERIAL BLOOD SPECIMEN Performed By: #### A LLBG ####[facility]ORYCLIA [id number] [place] [address] Potassium [Moles/Vol] 3.3 mmol/L Low 3.5-5.0 [facility] Comment on above: Order Comment: Speci men Type: ARTERIAL BLOOD SPECIMEN Performed By: #### A LLBG ####[facility]ATORYCLIA [id number] [place] [address] Sodium [Moles/Vol] 144 mmol/L Normal 136-144 [facility] Comment on above: Order Comment: Speci men Type: ARTERIAL BLOOD SPECIMEN Performed By: #### A LLBG ####[facility]ORYCLIA [id number] [place] [address] Basic metabolic 2000 panelon 12-26-2020 Anion gap [Moles/Vol] 9 mmol/L Normal 9-18 [facility] Comment on above: Order Comment: Speci men Type: BLOOD SPECIMEN Performed By: #### 2 4321-2, , 2776-08 ####[facility]ORYCLIA [id number] [place] [address] Calcium [Mass/Vol] 7.4 mg/dL Low 8.5-10.2 [facility] Comment on above: Order Comment: Speci men Type: BLOOD SPECIMEN Performed By: #### 2 4321-2, , 2776-08 ####[facility]ATORYCLIA [id number] [place] [address] Chloride [Moles/Vol] 114 mmol/L High 97-105 [facility] Comment on above: Order Comment: Speci men Type: BLOOD SPECIMEN Performed By: #### 2 4321-2, , 2776-08 ####[facility]ATORYCLIA [id number] [place] [address] CO2 [Moles/Vol] 22 mmol/L Normal 22-30 [facility] Comment on above: Order Comment: Speci men Type: BLOOD SPECIMEN Performed By: #### 2 1-2, , 2776-08 ####[facility]ATORYCLIA [id number] [place] [address] Creatinine [Mass/Vol] 1.25 mg/dL High 0.58-0.96 [facility] Comment on above: Order Comment: Speci men Type: BLOOD SPECIMEN Performed By: #### 2 1-2, , 2776-08 ####[facility]ATORYCLIA [id number] [place] [address] GFR/1.73 sq M.predicted MDRD (S/P/Bld) [Vol rate/Area] 52 mL/min/{1.73_m2} Normal [facility] Comment on above: Order Comment: Speci men Type: BLOOD SPECIMEN Result Comment: 43eG FR (Estimated GFR) Units of measure: mL/min/1.73 meters squaredeGFR is derived from the reexpressed MDRD Study equation using the following parameters: serum creatinine, age, gender and race. The creatinine assay has been calibrated to be traceable to IDMS. An eGFR <60 mL/min/1.73m2 for >3 months is consistent with chronic kidney disease. Refer to KDOQI guidelines for clinical interpretation. In patients with unstable renal function, e.g. those with acute kidney injury, the eGFR may not accurately reflect actual GFR. Performed By: #### 2 4321-2, , 2776-08 ####[facility]ATORYCLIA [id number] [place] [address] Glucose [Mass/Vol] 157 mg/dL High 74-99 [facility] Comment on above: Order Comment: Speci men Type: BLOOD SPECIMEN Result Comment: The [employer] Diabetes [employer] (ADA) provides guidance for cutoff values for fasting glucose and random glucose. The ADA defines fasting as no caloric intake for at least 8 hours. Fasting plasma glucose results between 100 to 125 mg/dL indicate increased risk for diabetes (prediabetes).Fasting plasma glucose results greater than or equal to 126 mg/dL meet the criteria for diagnosis of diabetes. In the absence of unequivocal hyperglycemia, results should be confirmed by repeat testing. In a patient with classic symptoms of hyperglycemia or hyperglycemic crisis, random plasma glucose results greater than or equal to 200 mg/dL meet the criteria for diagnosis of diabetes.Reference: Standards of Medical Care in Diabetes 2016, [employer]. Diabetes Care. 2016.39(Suppl 1). Performed By: #### 2 1-2, , 2776-08 ####[facility]ATORYCLIA [id number] [place] [address] Potassium [Moles/Vol] 3.3 mmol/L Low 3.7-5.1 [facility] Comment on above: Order Comment: Speci men Type: BLOOD SPECIMEN Performed By: #### 2 1-2, , 2776-08 ####[facility]ATORYCLIA [id number] [place] [address] Sodium [Moles/Vol] 145 mmol/L High 136-144 [facility] Comment on above: Order Comment: Speci men Type: BLOOD SPECIMEN Performed By: #### 2 1-2, , 2776-08 ####[facility]ORYCLIA [id number] [place] [address] Urea nitrogen [Mass/Vol] 18 mg/dL Normal 7-21 [facility] Comment on above: Order Comment: Speci men Type: BLOOD SPECIMEN Performed By: #### 2 1-2, , 2776-08 ####[facility]ORYCLIA [id number] [place] [address] CASE MANAGEMon 12-26-2020 CASE MANAGEM Normal [facility] CBC panel Auto (Bld)on 12-26 Erythrocyte distribution width (RBC) [Ratio] 15.3 % High 11.5-15.0 [facility] Comment on above: Order Comment: Speci men Type: BLOOD SPECIMEN Performed By: #### 5 8410-2 ####[facility]ORYCLIA [id number] [place] [address] Hematocrit (Bld) [Volume fraction] 32.0 % Low 36.0-46.0 [facility] Comment on above: Order Comment: Speci men Type: BLOOD SPECIMEN Performed By: #### 5 8410-2 ####[facility]ORYCLIA [id number] [place] [address] Hemoglobin (Bld) [Mass/Vol] 10.8 g/dL Low 11.5-15.5 [facility] [facility] Comment on above: Order Comment: Speci men Type: BLOOD SPECIMEN Performed By: #### 5 8410-2 ####[facility]ATORYCLIA [id number] [place] [address] MCH (RBC) [Entitic mass] 30.0 pg Normal 26.0-34.0 [facility] Comment on above: Order Comment: Speci men Type: BLOOD SPECIMEN Performed By: #### 5 8410-2 ####[facility]ORYCLIA [id number] [place] [address] MCHC (RBC) [Mass/Vol] 33.8 g/dL Normal 30.5-36.0 [facility] Comment on above: Order Comment: Speci men Type: BLOOD SPECIMEN Performed By: #### 5 8410-2 ####[facility]ORYCLIA [id number] [place] [address] MCV (RBC) [Entitic vol] 88.9 fL Normal 80.0-100.0 [facility] Comment on above: Order Comment: Speci men Type: BLOOD SPECIMEN Performed By: #### 5 8410-2 ####[facility]ORYCLIA [id number] [place] [address] Nucleated RBC (Bld) [#/Vol] 10*3/uL Normal <0.01 [facility] Comment on above: Order Comment: Speci men Type: BLOOD SPECIMEN Performed By: #### 5 8410-2 ####[facility]ORYCLIA [id number] [place] [address] Platelet mean volume (Bld) [Entitic vol] 10.2 fL Normal 9.0-12.7 [facility] Comment on above: Order Comment: Speci men Type: BLOOD SPECIMEN Performed By: #### 5 8410-2 ####[facility]ORYCLIA [id number] [place] [address] Platelets (Bld) [#/Vol] 165 10*3/uL Normal 150-400 [facility] Comment on above: Order Comment: Speci men Type: BLOOD SPECIMEN Performed By: #### 5 8410-2 ####[facility]ORYCLIA [id number] [place] [address] RBC (Bld) [#/Vol] 3.60 10*6/uL Low 3.90-5.20 [facility] Comment on above: Order Comment: Speci men Type: BLOOD SPECIMEN Performed By: #### 5 8410-2 ####[facility]ORYCLIA [id number] [place] [address] WBC (Bld) [#/Vol] 11.65 10*3/uL High 3.70-11.00 [facility] Comment on above: Order Comment: Speci men Type: BLOOD SPECIMEN Performed By: #### 5 8410-2 ####[facility]ORYCLIA [id number] [place] [address] CONSULT PROGon 12-26-2020 CONSULT PROG Normal [facility] HIGH SENSITIVITY TROPONIN To n 12-26-2020 HIGH SENSITIVITY MARIAM 12 ng/L High <12 [facility] Comment on above: Order Comment: Speci men Type: BLOOD SPECIMEN Result Comment: When assessing risk for acute coronary syndromes: In patients undergoing blood draw greater than or equal to 2 hours from symptom onset, with history of very low to moderate risk and non-ischemic ECG, an initial hs-Troponin T less than 12 ng/L AND a 1 hour delta hs-Troponin T less than 3 ng/L should be considered very low risk for 30 day MACE. Performed By: #### H STNT ####[facility]ATORYCLIA [id number] [place] [address] [facility]26 Magnesium [Mass/Vol] 1.7 mg/dL Normal 1.7-2.3 [facility] Comment on above: Order Comment: Speci men Type: BLOOD SPECIMEN Performed By: #### 2 4321-2, , 2776-08 ####[facility]ATORYCLIA [id number] [place] [address] NURSING PROGon 12-26-2020 NURSING PROG Normal [facility] NURSING PROG Normal [facility] NURSING PROG Normal [facility] Phosphate [facility] 12-26 Phosphate [Mass/Vol] 2.5 mg/dL Low 2.7-4.8 [facility] Comment on above: Order Comment: Speci men Type: BLOOD SPECIMEN Performed By: #### 2 4321-2, , 2776-08 ####[facility]ATORYCLIA [id number] [place] [address] VITAMIN D 25 HYDROXYon 12-26 25-hydroxyvitamin D3 [Mass/Vol] 22.6 ng/mL Low 30.0-100.0 [facility] Comment on above: Order Comment: Speci men Type: BLOOD SPECIMEN Result Comment: Clas sification of 25 [place] Vitamin D status:Deficiency: < 20 ng/ml.Insufficientcy: 20-30 ng/ml.Sufficiency: 30-100 ng/ml. Performed By: #### V ITD ####[facility]ATORYCLIA [id number] [place] [address] XR CHEST 1V FRONTALon 2020 XR CHEST 1V FRONTAL Normal [facility] ALLIED HEALTHon 12-25-2020 ALLIED HEALTH Normal [facility] ALLIED HEALTH Normal [facility] ALLIED HEALTH Normal [facility] ALLIED HEALTH Normal [facility] ALLIED HEALTH Normal [facility] ARTERIAL BLOOD GASESon 12-25 BASE DEFICIT, ARTERIAL -3.3 mmol/L Low -2-0 [facility] Comment on above: Order Comment: Speci men Type: ARTERIAL BLOOD SPECIMEN Performed By: #### A LLBG ####[facility]ATORYCLIA [id number] [place] [address] Body temperature 97.16 [degF] Normal [facility] Comment on above: Order Comment: Speci men Type: ARTERIAL BLOOD SPECIMEN Performed By: #### A LLBG ####[facility]ORYCLIA [id number] [place] [address] CALCIUM IONIZED, PH CORRECTED 1.08 mmol/L Normal 1.08-1.30 [facility] Comment on above: Order Comment: Speci men Type: ARTERIAL BLOOD SPECIMEN Performed By: #### A LLBG ####[facility]ATORYCLIA [id number] [place] [address] Calcium.ionized (BldV) [Mass/Vol] 1.12 mmol/L Normal 1.08-1.30 [facility] Comment on above: Order Comment: Speci men Type: ARTERIAL BLOOD SPECIMEN Performed By: #### A LLBG ####[facility]ATORYCLIA [id number] [place] [address] Carboxyhemoglobin (BldA) [Mass fraction] 1.2 % Normal 0.0-2.0 [facility] Comment on above: Order Comment: Speci men Type: ARTERIAL BLOOD SPECIMEN Result Comment: Carb oxyhemoglobin Reference Range for Smokers: 2.0-8.0% Performed By: #### A LLBG ####[facility]ORYCLIA [id number] [place] [address] CO2 (Bld) [Partial pressure] 42 mm Hg Normal 36-46 [facility] Comment on above: Order Comment: Speci men Type: ARTERIAL BLOOD SPECIMEN Performed By: #### A LLBG ####[facility]ATORYCLIA [id number] [place] [address] CO2 [Moles/Vol] 20.6 mmol/L Low 22-28 [facility] Comment on above: Order Comment: Speci men Type: ARTERIAL BLOOD SPECIMEN Performed By: #### A LLBG ####[facility]ORYCLIA [id number] [place] [address] CO2 adjusted to patient's actual temperature (Bld) [Partial pressure] 40 mmHg Normal 36-46 [facility] Comment on above: Order Comment: Speci men Type: ARTERIAL BLOOD SPECIMEN Performed By: #### A LLBG ####[facility]ATORYCLIA [id number] [place] [address] FIO2 40 % Normal [facility] Comment on above: Order Comment: Speci men Type: ARTERIAL BLOOD SPECIMEN Performed By: #### A LLBG ####[facility]ORYCLIA [id number] [place] [address] Glucose [Mass/Vol] 115 mg/dL High 60-105 [facility] Comment on above: Order Comment: Speci men Type: ARTERIAL BLOOD SPECIMEN Performed By: #### A LLBG ####[facility]ORYCLIA [id number] [place] [address] HCO3 (Bld) [Moles/Vol] 22 mmol/L Normal 22-26 [facility] Comment on above: Order Comment: Speci men Type: ARTERIAL BLOOD SPECIMEN Performed By: #### A LLBG ####[facility]ATORYCLIA [id number] [place] [address] Hematocrit (Bld) [Volume fraction] 29.3 % Low 36.0-46.0 [facility] Comment on above: Order Comment: Speci men Type: ARTERIAL BLOOD SPECIMEN Performed By: #### A LLBG ####[facility]ORYCLIA [id number] [place] [address] Hemoglobin (Bld) [Mass/Vol] 9.4 g/dL Low 11.5-15.5 [facility] Comment on above: Order Comment: Speci men Type: ARTERIAL BLOOD SPECIMEN Performed By: #### A LLBG ####[facility]ATORYCLIA [id number] [place] [address] Methemoglobin (Bld) [Mass fraction] % Normal 0.0-1.5 [facility] Comment on above: Order Comment: Speci men Type: ARTERIAL BLOOD SPECIMEN Performed By: #### A LLBG ####[facility]ORYCLIA [id number] [place] [address] O2 THERAPY Ventilator Normal [facility] Comment on above: Order Comment: Speci men Type: ARTERIAL BLOOD SPECIMEN Performed By: #### A LLBG ####[facility]ORYCLIA [id number] [place] [address] Oxygen (Bld) [Partial pressure] 137 mm Hg High 85-95 [facility] Comment on above: Order Comment: Speci men Type: ARTERIAL BLOOD SPECIMEN Performed By: #### A LLBG ####[facility]ORYCLIA [id number] [place] [address] Oxygen adjusted to patient's actual temperature (Bld) [Partial pressure] 132 mmHg High 85-95 [facility] Comment on above: Order Comment: Speci men Type: ARTERIAL BLOOD SPECIMEN Performed By: #### A LLBG ####[facility]ATORYCLIA [id number] [place] [address] OXYGEN SATURATION, ARTERIAL 99 % High 95-98 [facility] Comment on above: Order Comment: Speci men Type: ARTERIAL BLOOD SPECIMEN Performed By: #### A LLBG ####[facility]ORYCLIA [id number] [place] [address] Oxyhemoglobin (BldA) [Mass fraction] 98 % Normal 95-98 [facility] Comment on above: Order Comment: Speci men Type: ARTERIAL BLOOD SPECIMEN Performed By: #### A LLBG ####[facility]ATORYCLIA [id number] [place] [address] pH (Bld) 7.34 [pH] Low 7.35-7.45 [facility] Comment on above: Order Comment: Speci men Type: ARTERIAL BLOOD SPECIMEN Performed By: #### A LLBG ####[facility]ORYCLIA [id number] [place] [address] pH adjusted to patient's actual temperature (Bld) 7.35 Normal 7.35-7.45 [facility] Comment on above: Order Comment: Speci men Type: ARTERIAL BLOOD SPECIMEN Performed By: #### A LLBG ####[facility]ORYCLIA [id number] [place] [address] Potassium [Moles/Vol] 3.4 mmol/L Low 3.5-5.0 [facility] Comment on above: Order Comment: Speci men Type: ARTERIAL BLOOD SPECIMEN Performed By: #### A LLBG ####[facility]ATORYCLIA [id number] [place] [address] Sodium [Moles/Vol] 145 mmol/L High 136-144 [facility] Comment on above: Order Comment: Speci men Type: ARTERIAL BLOOD SPECIMEN Performed By: #### A LLBG ####[facility]ATORYCLIA [id number] [place] [address] BASE DEFICIT, ARTERIAL -8.6 mmol/L Low -2-0 [facility] Comment on above: Order Comment: Speci men Type: ARTERIAL BLOOD SPECIMEN Performed By: #### A LLBG ####[facility]ATORYCLIA [id number] [place] [address] Body temperature 97.52 [degF] Normal [facility] Comment on above: Order Comment: Speci men Type: ARTERIAL BLOOD SPECIMEN Performed By: #### A LLBG ####[facility]ATORYCLIA [id number] [place] [address] CALCIUM IONIZED, PH CORRECTED Normal [facility] Comment on above: Order Comment: Speci men Type: ARTERIAL BLOOD SPECIMEN Result Comment: Tomas ured pH is <7.20. Unable to report normalized Calcium.Measured pH is <7.20. Unable to report normalized Calcium. Performed By: #### A LLBG ####[facility]ATORYCLIA [id number] [place] [address] Calcium.ionized (BldV) [Mass/Vol] 1.16 mmol/L Normal 1.08-1.30 [facility] Comment on above: Order Comment: Speci men Type: ARTERIAL BLOOD SPECIMEN Performed By: #### A LLBG ####[facility]ORYCLIA [id number] [place] [address] Carboxyhemoglobin (BldA) [Mass fraction] 1.1 % Normal 0.0-2.0 [facility] Comment on above: Order Comment: Speci men Type: ARTERIAL BLOOD SPECIMEN Performed By: #### A LLBG ####[facility]ORYCLIA [id number] [place] [address] CO2 (Bld) [Partial pressure] 57 mm Hg High 36-46 [facility] Comment on above: Order Comment: Speci men Type: ARTERIAL BLOOD SPECIMEN Performed By: #### A LLBG ####[facility]ORYCLIA [id number] [place] [address] CO2 [Moles/Vol] 19.1 mmol/L Low 22-28 [facility] Comment on above: Order Comment: Speci men Type: ARTERIAL BLOOD SPECIMEN Performed By: #### A LLBG ####[facility]ORYCLIA [id number] [place] [address] CO2 adjusted to patient's actual temperature (Bld) [Partial pressure] 55 mmHg High 36-46 [facility] Comment on above: Order Comment: Speci men Type: ARTERIAL BLOOD SPECIMEN Performed By: #### A LLBG ####[facility]ATORYCLIA [id number] [place] [address] FIO2 40 % Normal [facility] Comment on above: Order Comment: Speci men Type: ARTERIAL BLOOD SPECIMEN Performed By: #### A LLBG ####[facility]ORYCLIA [id number] [place] [address] Glucose [Mass/Vol] 170 mg/dL High 60-105 [facility] Comment on above: Order Comment: Speci men Type: ARTERIAL BLOOD SPECIMEN Performed By: #### A LLBG ####[facility]ORYCLIA [id number] [place] [address] HCO3 (Bld) [Moles/Vol] 20 mmol/L Low 22-26 [facility] Comment on above: Order Comment: Speci men Type: ARTERIAL BLOOD SPECIMEN Performed By: #### A LLBG ####[facility]ORYCLIA [id number] [place] [address] Hematocrit (Bld) [Volume fraction] 36.6 % Normal 36.0-46.0 [facility] Comment on above: Order Comment: Speci men Type: ARTERIAL BLOOD SPECIMEN Performed By: #### A LLBG ####[facility]ORYCLIA [id number] [place] [address] Hemoglobin (Bld) [Mass/Vol] 11.9 g/dL Normal 11.5-15.5 [facility] Comment on above: Order Comment: Speci men Type: ARTERIAL BLOOD SPECIMEN Performed By: #### A LLBG ####[facility]ORYCLIA [id number] [place] [address] Methemoglobin (Bld) [Mass fraction] % Normal 0.0-1.5 [facility] Comment on above: Order Comment: Speci men Type: ARTERIAL BLOOD SPECIMEN Performed By: #### A LLBG ####[facility]ORYCLIA [id number] [place] [address] O2 THERAPY Ventilator Normal [facility] Comment on above: Order Comment: Speci men Type: ARTERIAL BLOOD SPECIMEN Performed By: #### A LLBG ####[facility]ORYCLIA [id number] [place] [address] Oxygen (Bld) [Partial pressure] 113 mm Hg High 85-95 [facility] Comment on above: Order Comment: Speci men Type: ARTERIAL BLOOD SPECIMEN Performed By: #### A LLBG ####[facility]ORYCLIA [id number] [place] [address] Oxygen adjusted to patient's actual temperature (Bld) [Partial pressure] 109 mmHg High 85-95 [facility] Comment on above: Order Comment: Speci men Type: ARTERIAL BLOOD SPECIMEN Performed By: #### A LLBG ####[facility]ORYCLIA [id number] [place] [address] OXYGEN SATURATION, ARTERIAL 98 % Normal 95-98 [facility] Comment on above: Order Comment: Speci men Type: ARTERIAL BLOOD SPECIMEN Performed By: #### A LLBG ####[facility]ATORYCLIA [id number] [place] [address] Oxyhemoglobin (BldA) [Mass fraction] 96 % Normal 95-98 [facility] Comment on above: Order Comment: Speci men Type: ARTERIAL BLOOD SPECIMEN Performed By: #### A LLBG ####[facility]ATORYCLIA [id number] [place] [address] pH (Bld) 7.17 [pH] Critically low 7.35-7.45 [facility] Comment on above: Order Comment: Speci men Type: ARTERIAL BLOOD SPECIMEN Performed By: #### A LLBG ####[facility]ORATORYCLIA [id number] [place] [address] pH adjusted to patient's actual temperature (Bld) 7.18 Critically low 7.35-7.45 [facility] Comment on above: Order Comment: Speci men Type: ARTERIAL BLOOD SPECIMEN Performed By: #### A LLBG ####[facility]ORYCLIA [id number] [place] [address] Potassium [Moles/Vol] 5.7 mmol/L High 3.5-5.0 [facility] Comment on above: Order Comment: Speci men Type: ARTERIAL BLOOD SPECIMEN Performed By: #### A LLBG ####[facility]ATORYCLIA [id number] [place] [address] Sodium [Moles/Vol] 139 mmol/L Normal 136-144 [facility] Comment on above: Order Comment: Speci men Type: ARTERIAL BLOOD SPECIMEN Performed By: #### A LLBG ####[facility]ATORYCLIA [id number] [place] [address] BRIEF OP NOTon 12-25-2020 BRIEF OP NOT Normal [facility] Basic metabolic 2000 panelon 12-25-2020 Anion gap [Moles/Vol] 7 mmol/L Low 9-18 [facility] Comment on above: Order Comment: Speci men Type: BLOOD SPECIMEN Performed By: #### 2 4321-2 ####[facility]ATORYCLIA [id number] [place] [address] Calcium [Mass/Vol] 7.1 mg/dL Low 8.5-10.2 [facility] Comment on above: Order Comment: Speci men Type: BLOOD SPECIMEN Performed By: #### 2 4321-2 ####[facility]ORYCLIA [id number] [place] [address] Chloride [Moles/Vol] 115 mmol/L High 97-105 [facility] Comment on above: Order Comment: Speci men Type: BLOOD SPECIMEN Performed By: #### 2 4321-2 ####[facility]ORYCLIA [id number] [place] [address] CO2 [Moles/Vol] 23 mmol/L Normal 22-30 [facility] Comment on above: Order Comment: Speci men Type: BLOOD SPECIMEN Performed By: #### 2 4321-2 ####[facility]ORYCLIA [id number] [place] [address] Creatinine [Mass/Vol] 1.38 mg/dL High 0.58-0.96 [facility] Comment on above: Order Comment: Speci men Type: BLOOD SPECIMEN Performed By: #### 2 4321-2 ####[facility]ATORYCLIA [id number] [place] [address] GFR/1.73 sq M.predicted MDRD (S/P/Bld) [Vol rate/Area] 47 mL/min/{1.73_m2} Normal [facility] Comment on above: Order Comment: Speci men Type: BLOOD SPECIMEN Result Comment: 38eG FR (Estimated GFR) Units of measure: mL/min/1.73 meters squaredeGFR is derived from the reexpressed MDRD Study equation using the following parameters: serum creatinine, age, gender and race. The creatinine assay has been calibrated to be traceable to IDMS. An eGFR <60 mL/min/1.73m2 for >3 months is consistent with chronic kidney disease. Refer to KDOQI guidelines for clinical interpretation. In patients with unstable renal function, e.g. those with acute kidney injury, the eGFR may not accurately reflect actual GFR. Performed By: #### 2 4321-2 ####[facility]ATORYCLIA [id number] [place] [address] Glucose [Mass/Vol] 115 mg/dL High 74-99 [facility] Comment on above: Order Comment: Speci men Type: BLOOD SPECIMEN Result Comment: The [employer] Diabetes [employer] (ADA) provides guidance for cutoff values for fasting glucose and random glucose. The ADA defines fasting as no caloric intake for at least 8 hours. Fasting plasma glucose results between 100 to 125 mg/dL indicate increased risk for diabetes (prediabetes).Fasting plasma glucose results greater than or equal to 126 mg/dL meet the criteria for diagnosis of diabetes. In the absence of unequivocal hyperglycemia, results should be confirmed by repeat testing. In a patient with classic symptoms of hyperglycemia or hyperglycemic crisis, random plasma glucose results greater than or equal to 200 mg/dL meet the criteria for diagnosis of diabetes.Reference: Standards of Medical Care in Diabetes 2016, [employer]. Diabetes Care. 2016.39(Suppl 1). Performed By: #### 2 4321-2 ####[facility]ATORYCLIA [id number] [place] [address] Potassium [Moles/Vol] 3.4 mmol/L Low 3.7-5.1 [facility] Comment on above: Order Comment: Speci men Type: BLOOD SPECIMEN Performed By: #### 2 4321-2 ####[facility]ATORYCLIA [id number] [place] [address] Sodium [Moles/Vol] 145 mmol/L High 136-144 [facility] Comment on above: Order Comment: Speci men Type: BLOOD SPECIMEN Performed By: #### 2 4321-2 ####[facility]ATORYCLIA [id number] [place] [address] Urea nitrogen [Mass/Vol] 18 mg/dL Normal 7-21 [facility] Comment on above: Order Comment: Speci men Type: BLOOD SPECIMEN Performed By: #### 2 4321-2 ####[facility]ORYCLIA [id number] [place] [address] Anion gap [Moles/Vol] 7 mmol/L Low 9-18 [facility] Comment on above: Order Comment: Speci men Type: BLOOD SPECIMEN Performed By: #### 2 777-1, 79267-1, ####[facility]ATORYCLIA [id number] [place] [address] Calcium [Mass/Vol] 7.7 mg/dL Low 8.5-10.2 [facility] Comment on above: Order Comment: Speci men Type: BLOOD SPECIMEN Performed By: #### 2 777-1, , ####[facility]ORYCLIA [id number] [place] [address] Chloride [Moles/Vol] 110 mmol/L High 97-105 [facility] Comment on above: Order Comment: Speci men Type: BLOOD SPECIMEN Performed By: #### 2 777-1, , ####[facility]ORYCLIA [id number] [place] [address] CO2 [Moles/Vol] 22 mmol/L Normal 22-30 [facility] Comment on above: Order Comment: Speci men Type: BLOOD SPECIMEN Performed By: #### 2 777-1, , ####[facility]ORYCLIA [id number] [place] [address] Creatinine [Mass/Vol] 1.77 mg/dL High 0.58-0.96 [facility] Comment on above: Order Comment: Speci men Type: BLOOD SPECIMEN Performed By: #### 2 777-1, , ####[facility]ORYCLIA [id number] [place] [address] GFR/1.73 sq M.predicted MDRD (S/P/Bld) [Vol rate/Area] 35 mL/min/{1.73_m2} Normal [facility] Comment on above: Order Comment: Speci men Type: BLOOD SPECIMEN Result Comment: 29eG FR (Estimated GFR) Units of measure: mL/min/1.73 meters squaredeGFR is derived from the reexpressed MDRD Study equation using the following parameters: serum creatinine, age, gender and race. The creatinine assay has been calibrated to be traceable to IDMS. An eGFR <60 mL/min/1.73m2 for >3 months is consistent with chronic kidney disease. Refer to KDOQI guidelines for clinical interpretation. In patients with unstable renal function, e.g. those with acute kidney injury, the eGFR may not accurately reflect actual GFR. Performed By: #### 2 777-1, 71612-8, ####[facility]ATORYCLIA [id number] [place] [address] Glucose [Mass/Vol] 175 mg/dL High 74-99 [facility] Comment on above: Order Comment: Speci men Type: BLOOD SPECIMEN Result Comment: The [employer] Diabetes [employer] (ADA) provides guidance for cutoff values for fasting glucose and random glucose. The ADA defines fasting as no caloric intake for at least 8 hours. Fasting plasma glucose results between 100 to 125 mg/dL indicate increased risk for diabetes (prediabetes).Fasting plasma glucose results greater than or equal to 126 mg/dL meet the criteria for diagnosis of diabetes. In the absence of unequivocal hyperglycemia, results should be confirmed by repeat testing. In a patient with classic symptoms of hyperglycemia or hyperglycemic crisis, random plasma glucose results greater than or equal to 200 mg/dL meet the criteria for diagnosis of diabetes.Reference: Standards of Medical Care in Diabetes 2016, [employer]. Diabetes Care. 2016.39(Suppl 1). Performed By: #### 2 777-1, 88546-0, ####[facility]ATORYCLIA [id number] [place] [address] Potassium [Moles/Vol] 6.5 mmol/L Critically high 3.7-5.1 [facility] Comment on above: Order Comment: Speci men Type: BLOOD SPECIMEN Performed By: #### 2 777-1, 66456-3, ####[facility]ATORYCLIA [id number] [place] [address] Sodium [Moles/Vol] 139 mmol/L Normal 136-144 [facility] Comment on above: Order Comment: Speci men Type: BLOOD SPECIMEN Performed By: #### 2 777-1, 70079-9, ####[facility] LABORATORYCLIA [id number] [place] [address] Urea nitrogen [Mass/Vol] 20 mg/dL Normal 7-21 [facility] Comment on above: Order Comment: Speci men Type: BLOOD SPECIMEN Performed By: #### 2 777-1, 13632-7, ####[facility]ORYCLIA [id number] [place] [address] CBC panel Auto (Bld)on 12-25 Erythrocyte distribution width (RBC) [Ratio] 14.9 % Normal 11.5-15.0 [facility] Comment on above: Order Comment: Speci men Type: BLOOD SPECIMEN Performed By: #### 5 8410-2 ####[facility]ORATORYCLIA [id number] [place] [address] Hematocrit (Bld) [Volume fraction] 40.5 % Normal 36.0-46.0 [facility] Comment on above: Order Comment: Speci men Type: BLOOD SPECIMEN Performed By: #### 5 8410-2 ####[facility]ATORYCLIA [id number] [place] [address] Hemoglobin (Bld) [Mass/Vol] 12.3 g/dL Normal 11.5-15.5 [facility] Comment on above: Order Comment: Speci men Type: BLOOD SPECIMEN Performed By: #### 5 8410-2 ####[facility]ATORYCLIA [id number] [place] [address] MCH (RBC) [Entitic mass] 29.2 pg Normal 26.0-34.0 [facility] Comment on above: Order Comment: Speci men Type: BLOOD SPECIMEN Performed By: #### 5 8410-2 ####[facility]ATORYCLIA [id number] [place] [address] MCHC (RBC) [Mass/Vol] 30.4 g/dL Low 30.5-36.0 [facility] Comment on above: Order Comment: Speci men Type: BLOOD SPECIMEN Performed By: #### 5 8410-2 ####[facility]ATORYCLIA [id number] [place] [address] MCV (RBC) [Entitic vol] 96.2 fL Normal 80.0-100.0 [facility] Comment on above: Order Comment: Speci men Type: BLOOD SPECIMEN Performed By: #### 5 8410-2 ####[facility]ORYCLIA [id number] [place] [address] Nucleated RBC (Bld) [#/Vol] 10*3/uL Normal <0.01 [facility] Comment on above: Order Comment: Speci men Type: BLOOD SPECIMEN Performed By: #### 5 8410-2 ####[facility]ATORYCLIA [id number] [place] [address] Platelet mean volume (Bld) [Entitic vol] 10.5 fL Normal 9.0-12.7 [facility] Comment on above: Order Comment: Speci men Type: BLOOD SPECIMEN Performed By: #### 5 8410-2 ####[facility]ATORYCLIA [id number] [place] [address] Platelets (Bld) [#/Vol] 239 10*3/uL Normal 150-400 [facility] Comment on above: Order Comment: Speci men Type: BLOOD SPECIMEN Performed By: #### 5 8410-2 ####[facility]ORYCLIA [id number] [place] [address] RBC (Bld) [#/Vol] 4.21 10*6/uL Normal 3.90-5.20 [facility] Comment on above: Order Comment: Speci men Type: BLOOD SPECIMEN Performed By: #### 5 8410-2 ####[facility]ATORYCLIA [id number] [place] [address] WBC (Bld) [#/Vol] 18.45 10*3/uL High 3.70-11.00 [facility] Comment on above: Order Comment: Speci men Type: BLOOD SPECIMEN Performed By: #### 5 8410-2 ####[facility]ATORYCLIA [id number] [place] [address] Erythrocyte distribution width (RBC) [Ratio] 14.8 % Normal 11.5-15.0 [facility] Comment on above: Order Comment: Speci men Type: BLOOD SPECIMEN Performed By: #### 5 8410-2 ####[facility]ORYCLIA [id number] [place] [address] Hematocrit (Bld) [Volume fraction] 43.4 % Normal 36.0-46.0 [facility] Comment on above: Order Comment: Speci men Type: BLOOD SPECIMEN Performed By: #### 5 8410-2 ####[facility]ATORYCLIA [id number] [place] [address] Hemoglobin (Bld) [Mass/Vol] 13.7 g/dL Normal 11.5-15.5 [facility] Comment on above: Order Comment: Speci men Type: BLOOD SPECIMEN Performed By: #### 5 8410-2 ####[facility]ORYCLIA [id number] [place] [address] MCH (RBC) [Entitic mass] 29.3 pg Normal 26.0-34.0 [facility] Comment on above: Order Comment: Speci men Type: BLOOD SPECIMEN Performed By: #### 5 8410-2 ####[facility]ORYCLIA [id number] [place] [address] MCHC (RBC) [Mass/Vol] 31.6 g/dL Normal 30.5-36.0 [facility] Comment on above: Order Comment: Speci men Type: BLOOD SPECIMEN Performed By: #### 5 8410-2 ####[facility]ATORYCLIA [id number] [place] [address] MCV (RBC) [Entitic vol] 92.9 fL Normal 80.0-100.0 [facility] Comment on above: Order Comment: Speci men Type: BLOOD SPECIMEN Performed By: #### 5 8410-2 ####[facility]ATORYCLIA [id number] [place] [address] Nucleated RBC (Bld) [#/Vol] 10*3/uL Normal <0.01 [facility] Comment on above: Order Comment: Speci men Type: BLOOD SPECIMEN Performed By: #### 5 8410-2 ####[facility]ORYCLIA [id number] [place] [address] Platelet mean volume (Bld) [Entitic vol] 10.4 fL Normal 9.0-12.7 [facility] Comment on above: Order Comment: Speci men Type: BLOOD SPECIMEN Performed By: #### 5 8410-2 ####[facility]ATORYCLIA [id number] [place] [address] Platelets (Bld) [#/Vol] 223 10*3/uL Normal 150-400 [facility] Comment on above: Order Comment: Speci men Type: BLOOD SPECIMEN Performed By: #### 5 8410-2 ####[facility]ORYCLIA [id number] [place] [address] RBC (Bld) [#/Vol] 4.67 10*6/uL Normal 3.90-5.20 [facility] Comment on above: Order Comment: Speci men Type: BLOOD SPECIMEN Performed By: #### 5 8410-2 ####[facility]ATORYCLIA [id number] [place] [address] WBC (Bld) [#/Vol] 25.76 10*3/uL High 3.70-11.00 [facility] Comment on above: Order Comment: Speci men Type: BLOOD SPECIMEN Performed By: #### 5 8410-2 ####[facility]ATORYCLIA [id number] [place] [address] CONSULT PROGon 12-25-2020 CONSULT PROG Normal [facility] CT BRAIN WO IVCONon 12-26-[address] BRAIN WO IVCON Normal [facility] CT KNEE WO IVCON RTon 2020 CT KNEE WO IVCON RT Normal [facility] CT PELVIS ORTHO WO IVCONon 0 12-25-2020 CT PELVIS ORTHO WO IVCON Normal [facility] Ethanol SerPl-mCncon 021 Ethanol [Mass/Vol] mg/dL Normal <11 [facility] Comment on above: Order Comment: Speci men Type: BLOOD SPECIMEN Performed By: #### 5 643-2 ####[facility]ORATORYCLIA [id number] [place] [address] HIGH SENSITIVITY TROPONIN To n 12-25-2020 HIGH SENSITIVITY MARIAM 15 ng/L High <12 [facility] Comment on above: Order Comment: Speci men Type: BLOOD SPECIMEN Result Comment: When assessing risk for acute coronary syndromes: In patients undergoing blood draw greater than or equal to 2 hours from symptom onset, with history of very low to moderate risk and non-ischemic ECG, an initial hs-Troponin T less than 12 ng/L AND a 1 hour delta hs-Troponin T less than 3 ng/L should be considered very low risk for 30 day MACE. Performed By: #### H STNT ####[facility]ORATORYCLIA [id number] [place] [address] IR EMBOLIZATION HEMORRHAGEon 12-25-2020 IR EMBOLIZATION HEMORRHAGE Normal [facility] Lactate (Bld) [Moles/Vol]on 12-25-2020 Lactate [Moles/Vol] 0.9 mmol/L Normal 0.5-2.2 [facility] Comment on above: Order Comment: Speci men Type: BLOOD SPECIMEN Performed By: #### 3 2693-4 ####[facility]ORATORYCLIA [id number] [place] [address] Lactate [Moles/Vol] 3.3 mmol/L High 0.5-2.2 [facility] Comment on above: Order Comment: Speci men Type: BLOOD SPECIMEN Performed By: #### 3 2693-4 ####[facility]ORATORYCLIA [id number] [place] [address] Lipase SerPl-cCncon 12-26-19 21 Lipase [Catalytic activity/Vol] 30 U/L Normal 16-61 [facility] Comment on above: Order Comment: Speci men Type: BLOOD SPECIMEN Performed By: #### 3 040-3 ####[facility]ORATORYCLIA [id number] [place] [address] Magnesium SerPl-mCncon 12-25 Magnesium [Mass/Vol] 2.2 mg/dL Normal 1.7-2.3 [facility] Comment on above: Order Comment: Speci men Type: BLOOD SPECIMEN Performed By: #### 2 777-1, 78036-3, 01582-6 ####[facility]ORATORYCLIA [id number] [place] [address] NUTRITIONon 12-25-2020 NUTRITION Normal [facility] PT panel Coag (PPP)on 2020 INR Coag (PPP) [Relative time] 1.1 {INR} Normal 0.9-1.3 [facility] Comment on above: Order Comment: Speci men Type: BLOOD SPECIMEN Result Comment: Elisabeth min K Antagonist (VKA) Therapeutic Range: INR 2 to 3 (Target INR of 2.5)Note: For patients treated with VKA drugs, such as warfarin, the [employer] 2012 Guideline recommends a therapeutic INR range of 2 to 3 (target INR of 2.5). This recommendation includes high-risk patients with antiphospholipid syndrome with previous arterial or venous thromboembolism, current-generation mechanical or bioprosthetic aortic heart valve replacement.Note: Patients with mechanical aortic valve replacement and additional risk factors for thromboembolic events (atrial fibrillation, previous thromboembolism, LV dysfunction, hypercoagulable conditions) or an older generation mechanical AVR (i.e., ball in-Cage) or any mechanical MVR should have a INR therapeutic range of 2.5 to 3.5 (target INR of 3).Adalid GH, et al. Chest 2012, 141:7S-47SNishimura RA, et al. JACC 2017, 70: 252-289 Performed By: #### 3 4528-0, 63427-1 ####[facility]ATORYCLIA [id number] [place] [address] PT Coag (PPP) [Time] 11.3 s Normal 9.7-13.0 [facility] Comment on above: Order Comment: Speci men Type: BLOOD SPECIMEN Performed By: #### 3 4528-0, 62592-1 ####[facility]ATORYCLIA [id number] [place] [address] Phosphate SerPl-mCncon 12-25 Phosphate [Mass/Vol] 6.6 mg/dL High 2.7-4.8 [facility] Comment on above: Order Comment: Speci men Type: BLOOD SPECIMEN Performed By: #### 2 777-1, 12792-5, 25706-9 ####[facility]ORATORYCLIA [id number] [place] [address] STAPH AUREUS PCRon S. aureus and MRSA panel LAVELL+probe (Nose) Abnormal Negative [facility] Comment on above: Order Comment: Speci men Type: SWAB OF INTERNAL NOSE Result Comment: Posi tive for Staphylococcus aureus by PCR.Negative for MRSA by PCR Performed By: #### S APCR ####[facility]ORATORYCLIA [id number] [place] [address] TOX SCREEN ROUT URon 021 Amphetamines Confirm (U) [Mass/Vol] Negative Normal Negative [facility] Comment on above: Order Comment: Speci men Type: URINE SPECIMEN Result Comment: Cuto ff threshold at 1000 ng/mL. Performed By: #### U TOX2 ####[facility]ATORYCLIA [id number] [place] [address] BARBITURATES, URINE Negative Normal Negative [facility] Comment on above: Order Comment: Speci men Type: URINE SPECIMEN Result Comment: Cuto ff threshold at 200 ng/mL. Performed By: #### U TOX2 ####[facility]ORATORYCLIA [id number] [place] [address] BENZODIAZEPINES, UR Positive Abnormal Negative [facility] Comment on above: Order Comment: Speci men Type: URINE SPECIMEN Result Comment: Cuto ff threshold at 200 ng/mL. Performed By: #### U TOX2 ####[facility]ATORYCLIA [id number] [place] [address] CANNABINOIDS,URINE Positive Abnormal Negative [facility] Comment on above: Order Comment: Speci men Type: URINE SPECIMEN Result Comment: Cuto ff threshold at 50 ng/mL. Performed By: #### U TOX2 ####[facility]ATORYCLIA [id number] [place] [address] Cocaine Ql (U) Positive Abnormal Negative [facility] Comment on above: Order Comment: Speci men Type: URINE SPECIMEN Result Comment: Cuto ff threshold at 300 ng/mL. Performed By: #### U TOX2 ####[facility]ATORYCLIA [id number] [place] [address] Ethanol (U) [Mass/Vol] <11 Normal <11 [facility] Comment on above: Order Comment: Speci men Type: URINE SPECIMEN Performed By: #### U TOX2 ####[facility]ATORYCLIA [id number] [place] [address] Opiates Screen Ql (U) Negative Normal Negative [facility] Comment on above: Order Comment: Speci men Type: URINE SPECIMEN Result Comment: Cuto ff threshold at 300 ng/mL. Performed By: #### U TOX2 ####[facility]ATORYCLIA [id number] [place] [address] oxyCODONE cutoff Screen (U) [Mass/Vol] Negative Normal Negative [facility] Comment on above: Order Comment: Speci men Type: URINE SPECIMEN Result Comment: Cuto ff threshold at 100 ng/mL. Performed By: #### U TOX2 ####[facility]ATORYCLIA [id number] [place] [address] Phencyclidine Ql (U) Negative Normal Negative [facility] Comment on above: Order Comment: Speci men Type: URINE SPECIMEN Result Comment: Cuto ff threshold at 25 ng/mL. Performed By: #### U TOX2 ####[facility]ATORYCLIA [id number] [place] [address] XR CHEST 1V FRONTALon 2020 XR CHEST 1V FRONTAL Normal [facility] XR CHEST 1V FRONTAL Normal [facility] XR FOOT 3V AP/LAT/OBL LTon 0 12-25-2020 XR FOOT 3V AP/LAT/OBL LT Normal [facility] XR FOOT 3V AP/LAT/OBL RTon 0 12-25-2020 XR FOOT 3V AP/LAT/OBL RT Normal [facility] aPTT PPPon 12-25-2020 aPTT Coag (PPP) [Time] 25.4 s Normal 23.0-32.4 [facility] Comment on above: Order Comment: Speci men Type: BLOOD SPECIMEN Performed By: #### 3 4528-0, 25275-6 ####[facility]ATORYCLIA [id number] [place] [address] ALLIED HEALTHon 12-24-2020 ALLIED HEALTH Normal [facility] ALLIED HEALTH Normal [facility] ALLIED HEALTH Normal [facility] ALLIED HEALTH Normal [facility] CASE MGT INIT ASSESon 2020 CASE MGT INIT ASSES Normal [facility] CBC panel Auto (Bld)on 12-24 Erythrocyte distribution width (RBC) [Ratio] 14.5 % Normal 11.5-15.0 [facility] Comment on above: Order Comment: Speci men Type: BLOOD SPECIMEN Performed By: #### 5 8410-2 ####[facility]ATORYCLIA [id number] [place] [address] Hematocrit (Bld) [Volume fraction] 44.3 % Normal 36.0-46.0 [facility] Comment on above: Order Comment: Speci men Type: BLOOD SPECIMEN Performed By: #### 5 8410-2 ####[facility]ATORYCLIA [id number] [place] [address] Hemoglobin (Bld) [Mass/Vol] 14.1 g/dL Normal 11.5-15.5 [facility] Comment on above: Order Comment: Speci men Type: BLOOD SPECIMEN Performed By: #### 5 8410-2 ####[facility]ATORYCLIA [id number] [place] [address] MCH (RBC) [Entitic mass] 29.5 pg Normal 26.0-34.0 [facility] Comment on above: Order Comment: Speci men Type: BLOOD SPECIMEN Performed By: #### 5 8410-2 ####[facility]ATORYCLIA [id number] [place] [address] MCHC (RBC) [Mass/Vol] 31.8 g/dL Normal 30.5-36.0 [facility] Comment on above: Order Comment: Speci men Type: BLOOD SPECIMEN Performed By: #### 5 8410-2 ####[facility]ATORYCLIA [id number] [place] [address] MCV (RBC) [Entitic vol] 92.7 fL Normal 80.0-100.0 [facility] Comment on above: Order Comment: Speci men Type: BLOOD SPECIMEN Performed By: #### 5 8410-2 ####[facility]ATORYCLIA [id number] [place] [address] Nucleated RBC (Bld) [#/Vol] 10*3/uL Normal <0.01 [facility] Comment on above: Order Comment: Speci men Type: BLOOD SPECIMEN Performed By: #### 5 8410-2 ####[facility]ATORYCLIA [id number] [place] [address] Platelet mean volume (Bld) [Entitic vol] 10.3 fL Normal 9.0-12.7 [facility] Comment on above: Order Comment: Speci men Type: BLOOD SPECIMEN Performed By: #### 5 8410-2 ####[facility]ATORYCLIA [id number] [place] [address] Platelets (Bld) [#/Vol] 280 10*3/uL Normal 150-400 [facility] Comment on above: Order Comment: Speci men Type: BLOOD SPECIMEN Performed By: #### 5 8410-2 ####[facility]ATORYCLIA [id number] [place] [address] RBC (Bld) [#/Vol] 4.78 10*6/uL Normal 3.90-5.20 [facility] Comment on above: Order Comment: Speci men Type: BLOOD SPECIMEN Performed By: #### 5 8410-2 ####[facility]ATORYCLIA [id number] [place] [address] WBC (Bld) [#/Vol] 29.56 10*3/uL High 3.70-11.00 [facility] Comment on above: Order Comment: Speci men Type: BLOOD SPECIMEN Performed By: #### 5 8410-2 ####[facility]ORATORYCLIA [id number] [place] [address] CONFIRM BLOOD TYPEon 021 ABO A Normal [facility] Comment on above: Order Comment: Speci men Type: BLOOD SPECIMEN Performed By: #### C ONABO ####[facility] BANKCLIA [id number] [place] [address] Rh Nom (Bld) Positive Normal [facility] Comment on above: Order Comment: Speci men Type: BLOOD SPECIMEN Performed By: #### C ONABO ####[facility]ANKCLIA [id number] [place] [address] CONSULTon 12-24-2020 CONSULT Normal [facility] CONSULT Normal [facility] CONSULT Normal [facility] CT BRAIN WO IVCONon 12-25-19 CT BRAIN WO IVCON Normal [facility] CT FACIAL BONE/DAMARIS WO IVCON on 12-24-2020 CT FACIAL BONE/DAMARIS WO IVCON Normal [facility] Comprehensive metabolic 2000 panelon 12-24-2020 Albumin [Mass/Vol] 4.0 g/dL Normal 3.9-4.9 [facility] Comment on above: Order Comment: Speci men Type: BLOOD SPECIMEN Performed By: #### 2 4323-8, 3040-3 ####[facility]ORATORYCLIA [id number] [place] [address] ALP [Catalytic activity/Vol] 67 U/L Normal 34-123 [facility] Comment on above: Order Comment: Speci men Type: BLOOD SPECIMEN Performed By: #### 2 4323-8, 3040-3 ####[facility]ATORYCLIA [id number] [place] [address] ALT With P-5'-P [Catalytic activity/Vol] 50 U/L High 7-38 [facility] Comment on above: Order Comment: Speci men Type: BLOOD SPECIMEN Performed By: #### 2 4323-8, 3040-3 ####[facility]ORATORYCLIA [id number] [place] [address] Anion gap [Moles/Vol] 10 mmol/L Normal 9-18 [facility] Comment on above: Order Comment: Speci men Type: BLOOD SPECIMEN Performed By: #### 2 4323-8, 3040-3 ####[facility]ATORYCLIA [id number] [place] [address] AST With P-5'-P [Catalytic activity/Vol] 117 U/L High 13-35 [facility] Comment on above: Order Comment: Speci men Type: BLOOD SPECIMEN Performed By: #### 2 4323-8, 0-3 ####[facility]ATORYCLIA [id number] [place] [address] Bilirubin [Mass/Vol] 0.5 mg/dL Normal 0.2-1.3 [facility] Comment on above: Order Comment: Speci men Type: BLOOD SPECIMEN Performed By: #### 2 4323-8, 3040-3 ####[facility]ORATORYCLIA [id number] [place] [address] Calcium [Mass/Vol] 8.8 mg/dL Normal 8.5-10.2 [facility] Comment on above: Order Comment: Speci men Type: BLOOD SPECIMEN Performed By: #### 2 4323-8, 3040-3 ####[facility]ATORYCLIA [id number] [place] [address] Chloride [Moles/Vol] 106 mmol/L High 97-105 [facility] Comment on above: Order Comment: Speci men Type: BLOOD SPECIMEN Performed By: #### 2 4323-8, 3040-3 ####[facility]ATORYCLIA [id number] [place] [address] CO2 [Moles/Vol] 20 mmol/L Low 22-30 [facility] Comment on above: Order Comment: Speci men Type: BLOOD SPECIMEN Performed By: #### 2 4323-8, 3040-3 ####[facility]ATORYCLIA [id number] [place] [address] Creatinine [Mass/Vol] 1.29 mg/dL High 0.58-0.96 [facility] Comment on above: Order Comment: Speci men Type: BLOOD SPECIMEN Performed By: #### 2 4323-8, 0-3 ####[facility]ORATORYCLIA [id number] [place] [address] GFR/1.73 sq M.predicted MDRD (S/P/Bld) [Vol rate/Area] 50 mL/min/{1.73_m2} Normal [facility] Comment on above: Order Comment: Speci men Type: BLOOD SPECIMEN Result Comment: 41eG FR (Estimated GFR) Units of measure: mL/min/1.73 meters squaredeGFR is derived from the reexpressed MDRD Study equation using the following parameters: serum creatinine, age, gender and race. The creatinine assay has been calibrated to be traceable to IDMS. An eGFR <60 mL/min/1.73m2 for >3 months is consistent with chronic kidney disease. Refer to KDOQI guidelines for clinical interpretation. In patients with unstable renal function, e.g. those with acute kidney injury, the eGFR may not accurately reflect actual GFR. Performed By: #### 2 4323-8, 0-3 ####[facility]ORATORYCLIA [id number] [place] [address] Glucose [Mass/Vol] 123 mg/dL High 74-99 [facility] Comment on above: Order Comment: [facility]: BLOOD SPECIMEN Result Comment: The [employer] (ADA) provides guidance for cutoff values for fasting glucose and random glucose. The ADA defines fasting as no caloric intake for at least 8 hours. Fasting plasma glucose results between 100 to 125 mg/dL indicate increased risk for diabetes (prediabetes).Fasting plasma glucose results greater than or equal to 126 mg/dL meet the criteria for diagnosis of diabetes. In the absence of unequivocal hyperglycemia, results should be confirmed by repeat testing. In a patient with classic symptoms of hyperglycemia or hyperglycemic crisis, random plasma glucose results greater than or equal to 200 mg/dL meet the criteria for diagnosis of diabetes.Reference: Standards of Medical Care in Diabetes 2016, [employer]. Diabetes Care. 2016.39(Suppl 1). Performed By: #### 2 4323-8, 3040-3 ####[facility]ORATORYCLIA [id number] [place] [address] Potassium [Moles/Vol] 5.3 mmol/L High 3.7-5.1 [facility] Comment on above: Order Comment: Speci men Type: BLOOD SPECIMEN Performed By: #### 2 4323-8, 3040-3 ####[facility]ATORYCLIA [id number] [place] [address] Protein [Mass/Vol] 6.4 g/dL Normal 6.3-8.0 [facility] Comment on above: Order Comment: Speci men Type: BLOOD SPECIMEN Performed By: #### 2 4323-8, 0-3 ####[facility]ORATORYCLIA [id number] [place] [address] Sodium [Moles/Vol] 136 mmol/L Normal 136-144 [facility] Comment on above: Order Comment: Speci men Type: BLOOD SPECIMEN Performed By: #### 2 4323-8, 3040-3 ####[facility]ORATORYCLIA [id number] [place] [address] Urea nitrogen [Mass/Vol] 18 mg/dL Normal 7-21 [facility] Comment on above: Order Comment: Speci men Type: BLOOD SPECIMEN Performed By: #### 2 4323-8, 3040-3 ####[facility]ORATORYCLIA [id number] [place] [address] ED NOTEon 12-24-2020 ED NOTE HNO ID: [id number] Author: Suzy Yi RN Service: Emergency Medicine Author Type: Registered Nurse Type: ED Notes Filed: 12/24/2020 9:20 PM Note Text: Xray at [facility] ED NOTE HNO ID: [id number] Author: Lisha Heath RN Service: Emergency Medicine Author Type: Registered Nurse Type: ED Notes Filed: 12/24/2020 9:07 PM Note Text: Pt moved into ICU bed. Ortho at BS placing traction. [facility] ED NOTE HNO ID: [id number] Author: Lisha Heath RN Service: Emergency Medicine Author Type: Registered Nurse Type: ED Notes Filed: 12/24/2020 8:39 PM Note Text: Dr. Neal and pharmacist at adjusting sedation [facility] ED NOTE HNO ID: [id number] Author: Lisha Heath RN Service: Emergency Medicine Author Type: Registered Nurse Type: ED Notes Filed: 12/24/2020 8:20 PM Note Text: Pt placed on LIWS via OG [facility] ED NOTE HNO ID: [id number] Author: Lisha Heath RN Service: Emergency Medicine Author Type: Registered Nurse Type: ED Notes Filed: 12/24/2020 8:05 PM Note Text: OR notified not needed at this time [facility] ED NOTE HNO ID: [id number] Author: Lisha Heath RN Service: Emergency Medicine Author Type: Registered Nurse Type: ED Notes Filed: 12/24/2020 8:01 PM Note Text: Ortho at [facility] ED NOTE HNO ID: [id number] Author: Lisha Heath RN Service: Emergency Medicine Author Type: Registered Nurse Type: ED Notes Filed: 12/24/2020 8:38 PM Note Text: FAST exam performed Normal [facility] ED PROV NOTEon 12-24-2020 ED PROV NOTE Normal [facility] Ethanol SerPl-mCncon 021 Ethanol [Mass/Vol] mg/dL Normal <11 [facility] Comment on above: Order Comment: Speci men Type: BLOOD SPECIMEN Performed By: #### 5 643-2 ####[facility]ORY[facility]IA [id number] [place] [address] HISTORY PHYSICALon HISTORY PHYSICAL Normal [facility] Lipase SerPl-cCncon 12-25-19 21 Lipase [Catalytic activity/Vol] 45 U/L Normal 16-61 [facility] Comment on above: Order Comment: Speci men Type: BLOOD SPECIMEN Performed By: #### 2 4323-8, 3040-3 ####[facility]ORYCLIA [id number] [place] [address] PT panel Coag (PPP)on 2020 INR Coag (PPP) [Relative time] Normal 0.9-1.3 [facility] Comment on above: Order Comment: Speci men Type: BLOOD SPECIMEN Result Comment: Elisabeth min K Antagonist (VKA) Therapeutic Range: INR 2 to 3 (Target INR of 2.5)Note: For patients treated with VKA drugs, such as warfarin, the [employer] 2012 Guideline recommends a therapeutic INR range of 2 to 3 (target INR of 2.5). This recommendation includes high-risk patients with antiphospholipid syndrome with previous arterial or venous thromboembolism, current-generation mechanical or bioprosthetic aortic heart valve replacement.Note: Patients with mechanical aortic valve replacement and additional risk factors for thromboembolic events (atrial fibrillation, previous thromboembolism, LV dysfunction, hypercoagulable conditions) or an older generation mechanical AVR (i.e., ball in-Cage) or any mechanical MVR should have a INR therapeutic range of 2.5 to 3.5 (target INR of 3).Enrriqueyatt GH, et al. Chest 2012, 141:7S-47SNishimura RA, et al. [facility] 2017, 70: 252-289Clotted sample auto verifiedCorrected result: Previously reported as 1.1 on 12/24/2020 at 8:38 PM EDT. Performed By: #### 3 4528-0 ####[facility]ORYCLIA [id number] [place] [address] PT Coag (PPP) [Time] Normal 9.7-13.0 [facility] Comment on above: Order Comment: Speci men Type: BLOOD SPECIMEN Result Comment: Clot kesha sample auto verifiedCorrected result: Previously reported as 10.9 sec on 12/24/2020 at 8:38 PM EDT. Performed By: #### 3 4528-0 ####[facility]ORYCLIA [id number] [place] [address] SARS-CoV-2 RNA Resp Ql LAVELL+p robeon 12-24-2020 SARS-CoV-2 (COVID-19) RNA LAVELL+probe Ql (Resp) COVID 19 RESULT: SARS-CoV-2 (Agent of COVID-19) Not Detected by PCR. This test has been authorized by FDA under an Emergency Use Authorization (EUA) [facility] Comment on above: Performed By: #### 9 4500-6 ####[facility]ORYCLIA [id number] [place] [address] TYPE AND SCREENon 12-24-2020 ABO A Normal [facility] Comment on above: Order Comment: Speci men Type: BLOOD SPECIMEN Performed By: #### T SCR ####[facility] BANKCLIA [id number] [place] [address] HISTORICAL AB SCR STATUS Negative Normal [facility] Comment on above: Order Comment: Speci men Type: BLOOD SPECIMEN Performed By: #### T SCR ####[facility]ANKCLIA [id number] [place] [address] Rh Nom (Bld) Positive [facility] Comment on above: Order Comment: Speci men Type: BLOOD SPECIMEN Performed By: #### T SCR ####[facility]ANKCLIA [id number] [place] [id number] TYPE AND SCREEN EXPIRATION 12/27/2020 23:59 Normal [facility] Comment on above: Order Comment: Speci men Type: BLOOD SPECIMEN Performed By: #### T SCR ####[facility]ANKCLIA [id number] [place] [id number] XR CHEST 1V FRONTALon 2020 XR CHEST 1V FRONTAL Normal [facility] XR ELBOW 2V AP/LAT LTon XR ELBOW 2V AP/LAT LT Normal Alr [facility] XR FEMUR 2V AP/LAT LTon XR FEMUR 2V AP/LAT LT Normal Alr [facility] XR FOOT 3V AP/LAT/OBL LTon 0 12-24-2020 XR FOOT 3V AP/LAT/OBL LT Normal [facility] XR FOOT 3V AP/LAT/OBL RTon 0 12-24-2020 XR FOOT 3V AP/LAT/OBL RT Normal [facility] XR FOREARM 2V AP/LAT LTon XR FOREARM 2V AP/LAT LT Normal A [facility] XR PELVIS 1V APon 12-24-2020 XR PELVIS 1V AP Normal [facility] XR TIBIA FIBULA 2V AP/LAT LT on 12-24-2020 XR TIBIA FIBULA 2V AP/LAT LT Normal [facility] XR TIBIA FIBULA 2V AP/LAT RT on 12-24-2020 XR TIBIA FIBULA 2V AP/LAT RT Normal [facility] aPTT PPPon 12-24-2020 aPTT Coag (PPP) [Time] 25.1 s Normal 23.0-32.4 [facility] Comment on above: Order Comment: Speci men Type: BLOOD SPECIMEN Performed By: #### 1 4979-9 ####[facility]ATORYCLIA [id number] [place] [address] ANES PREOPon 12-08-2018 ANES PREOP HNO ID: [id number] Author: Dionna Green Service: Anesthesiology Author Type: Anesthesiologist Type: Anesthesia PreOp Filed: 12/08/2018 10:53 AM Note Text: ANESTHESIOLOGY DAY OF SURGERY NOTE SERVICE DATE: 12/08/2018 SERVICE TIME: 1028 : 1955 Procedure(s) (LRB): TOTAL CERV DISK REPLACEMENT C6/7 Anterior Cervical Discectomy AND Disc Replacement) (N/A) CONTINUOUS INTRAOPERATIVE NEUROPHYSIOLOGY MONITORING IN THE OPERATING ROOM ONE ON ONE MONITORING REQUIRING PERSONAL ATTENDANCE EACH 15 MINUTES (N/A) Surgeon(s): Ml Loo (Res) Firtha Estimated body mass index is 21.77 kg/m? as calculated from the following: Height as of 12/03/18: 157.5 cm (5' 2). Weight as of 12/03/18: 54 kg (119 lb). Most recent hematocrit and potassium results: Hematocrit 46.3 12/03/2018 Potassium 3.4 12/08/2018 ANES DOS/PREOP NOTE: Vitals: 12/08/18 0951 BP: 126/81 Pulse: (!) 53 Resp: 17 Temp: 36.5 ?C (97.7 ?F) TempSrc: Oral SpO2: 97% ACTIVE PROBLEM LIST Fibromyalgia Capsulitis Vain (Vaginal Intraepithelial Neoplasia) Postmenopausal Atrophic Vaginitis Copd (Chronic Obstructive Pulmonary Disease) ([facility]) Tobacco Use Disorder, Continuous Patent Foramen Ovale Encounter for Screening Colonoscopy Htn (Hypertension) Psychophysiological Insomnia Depression JORGE (obstructive sleep apnea) RDI 67 CMS AHI 1.3 Chronic Low Back Pain With Sciatica Ddd (Degenerative Disc Disease), Lumbar Cervical Spondylosis Without Myelopathy Cervicalgia Abnormal Echocardiogram Ptsd (Post-Traumatic Stress Disorder) 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 Radiculopathy, Lumbar Region Neural Foraminal Stenosis of Lumbar Spine Intervertebral Disc Stenosis of Neural Canal of Lumbar Region Myelopathy ([facility]) Hypopotassemia 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 (11/2015) - Abnormal Pap smear - COPD (chronic obstructive pulmonary disease) ([facility]) - Fibromyalgia - Other and unspecified ovarian cyst Ovarian cyst - Patent foramen ovale 07/19/2014 - Skin cancer - Tobacco use - Tobacco use disorder, continuous 07/19/2014 quit - Urinary tract infection PAST SURGICAL HISTORY Procedure Laterality Date - CARPAL TUNNEL bilateral - COLONOSCOP W/ OR W/O BRSH SPEC 11/23/14 Colonoscopy - PAST SURGICAL HISTORY OF Bilateral foot surgeries-neuromas - TOTAL ABDOM HYSTERECTOMY Hysterectomy, SAGE Cysts on ovaries, FAMILY HISTORY Problem Relation Age of Onset - Heart Father PA age 43; nonsmoker,no diabetes; electronic 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 - Heart Brother PA age 63 - Heart Brother PA age 53 - Heart Paternal Grandfather 56 PA Social History: Social History Tobacco Use - Smoking status: Former Smoker Packs/day: 0.50 Start date: 08/18/1979 Last attempt to quit: 09/04/2018 Years since quittin.2 - Smokeless tobacco: Former User Quit date: 08/25/2018 Substance Use Topics - Alcohol use: No - Drug use: No No current facility-administered medications on file prior to encounter. Current Outpatient Medications on File Prior to Encounter: pregabalin (LYRICA) 150 mg capsule Take 1 capsule by mouth three times daily for 30 days. cyclobenzaprine (FLEXERIL) 10 mg tablet Take 1 tablet by mouth twice daily as needed. clonazePAM (KLONOPIN) 1 mg tablet Take 1 tablet by mouth daily at bedtime for 90 days. buPROPion SR (ZYBAN SR; WELLBUTRIN SR) 150 mg 12 hr tablet TAKE 1 TABLET BY MOUTH TWICE DAILY FLUTICASONE/VILANTEROL (BREO ELLIPTA INHALATION) Inhale as instructed once daily. DULoxetine (CYMBALTA) 60 mg capsule Take 1 capsule by mouth once daily. hydrochlorothiazide (HYDRODIURIL, ESIDRIX) 25 mg tablet Take 1 tablet by mouth once daily. pediatric multivitamin gummy without iron (JENNIFER DOO) chew chewable tablet Take 2 tablets by mouth once daily. ondansetron (ZOFRAN) 4 mg tablet Take 1 tablet by mouth every 8 hours as needed. orphenadrine ER (NORFLEX) 100 mg tablet Take 1 tablet by mouth twice daily. lidocaine (LIDODERM) 5 % Apply 1 Patch as directed once daily. TO AFFECTED AREA. REMOVE AFTER 12 HOURS. QUEtiapine (SEROQUEL) 100 mg tablet Take 1 tablet by mouth once daily. Dr Mallory UMECLIDINIUM BROMIDE (INCRUSE ELLIPTA INHALATION) Inhale as instructed once daily. triamcinolone acetonide (KENALOG) 0.1 % cream Apply 1 application to affected area twice daily. nystatin (MYCOSTATIN) cream apply twice daily to affected area/ skin rash. hydrOXYzine HCl (ATARAX) 25 mg tablet Take 1 tablet by mouth every 6 hours as needed. capsaicin (ZOSTRIX) 0.025 % cream Apply to soles of feet as needed for burning sensation. COMPOUNDED PRESCRIPTION DuaL Gabapentin 6% diclofenac 3% (M) cream . Apply 2-4 pumps to affected area (bilateral hips) 3-4 times per day. CPAP CPAP 11 cmH2O, suitable mask, tubing, humidifier, filters. Lifetime supplies. Dx: 327.23 - Obstructive sleep apnea Diclofenac Sodium (VOLTAREN) 1 % gel Apply 2 g to affected area three times daily. estradiol (ESTRACE) 0.01 % (0.1 mg/gram) vaginal cream Use vaginally twice weekly ONE GRAM Current Facility-Administered Medications: lidocaine 10 mg/mL (1 %) 1-2 mg injection (XYLOCAINE) 0.1-0.2 mL INTRADERMAL PRN Ml Guallpa lactated ringers infusion 5-30 mL/hr INTRAVENOUS CONTINUOUS Ml Guallpa ceFAZolin iv piggyback 2 g in D5W (iso-osmotic) 100 mL (ANCEF) 2 g INTRAVENOUS ONCE Ml Guallpa bacitracin 50,000 Units in sodium chloride 0.9 % 1,000 mL 50,000 Units IRRIGATION ONCE Ml Guallpa bupivacaine liposome (PF) 1.3 % (13.3 mg/mL) 266 mg injection (EXPAREL) 266 mg INFILTRATION ONCE Ml Guallpa Allergies: ALLERGIES Allergen Reactions - Ciprofloxacin GI Upset, Vomiting Dizziness - Codeine Hives, Itching Generalized. DOS EXAM: Adequate NPO status: Yes Anesthetic risks, benefits, alternatives, personnel and consent discussed: Yes Patient agrees to proceed: Yes Previous Anesthesia: No history of adverse event. Airway Assessment: MP 2; Neck ROM: Full ROM without neurologic symptoms; Airway Evaluation: Small Mouth Opening Symptoms of Sleep Apnea: known severe JORGE Dentition: Dentures: upper/lower partial Additional Physical Exam: Lungs: Patient health status unchanged since recent history and physical. See history and physical for exam findings. Cardiac: Patient health status unchanged since recent history and physical. See history and physical for exam findings. Additional Pertinent Findings: N/A Blood Products: Not anticipated for this procedure. Anesthetic Plan: General, Standard ASA Monitors Pain Management Plan: Parenteral or Oral ASA Class: 3 Other Medical Problems: None Chronic Beta Aliza medication administered within 24 hours: N/A I have interviewed and examined the patient. I have reviewed the medical record and/or the pre-anesthesia evaluation, pertinent labs, and test results. Significant changes in the patient's condition since the History and Physical, not otherwise documented in primary service progress notes: No This contains updated information obtained within 48 hours of Surgery/Procedure. SIGNATURE: Dionna Green MD PATIENT NAME: Nora Grande DATE: December 08, 2018 TIME: 10:51 AM CSN: [id number] [facility] NURSING PROGon 12-08-2018 Protein mass conc HNO ID: [id number] Author: Libertad Govea) TOMY Delarosa Service: Nursing Author Type: Registered Nurse Type: Nursing Progress Note Filed: 12/08/2018 4:14 PM Note Text: Nursing Progress Note Patient Name: Nora Grande Patient Location: [facility] OR POOL/[facility] * __ Daily Note: 1612:patient ambulated to bathroom. Denies pain. Surgical site intact. Tolerating po. Phase 2 dcm This note was completed by: Libertad Delarosa RN [facility] Protein mass conc HNO ID: [id number] Author: Brooklyn KapoorRn) TOMY Daley Service: Nursing Author Type: Registered Nurse Type: Nursing Progress Note Filed: 12/08/2018 2:01 PM Note Text: Nursing Progress Note Patient Name: Nora Grande Patient Location: [facility] OR POOL/[facility] * __ Daily Note:patient to pacu in 05/27 pain to anterior neck. Surgical site clean and intact with glue. Medicated at bedside by Marci COPELAND. 1315: total 1.4mg dilaudid given at bedside by Marci COPELAND since in pacu. 1400: called out to family to update. Patient states not yet ready for visitors. Pain becoming more tolerable. This note was completed by: Brooklyn Daley RN [facility] OPERATIVE NOon 12-08-2018 OPERATIVE NO HNO ID: [id number] Author: Ml Guallpa Service: Neurosurgery Author Type: Physician Type: Operative Report Filed: 12/09/2018 1:31 PM Note Text: OPERATIVE/PROCEDURE REPORT LOG ID: [id number] SURGERY/PROCEDURE DATE: 12/08/2018 INCISION/PROCEDURE START TIME: 11:39 AM INCISION CLOSE/PROCEDURE END TIME: 12:36 PM SURGEON(S)/PROCEDURALI ST(S) AND PATTERN MAKER PROGRAMER(S): Surgeon(s) and Role: * Ml Guallpa - Primary * Eez (Res) Firtha - Resident - Assisting No Additional Staff SURGERY/PROCEDURE(S): C6/7 anterior cervical discectomy and disc replacement ANESTHESIA: General SURGERY/PROCEDURE DETAILS: This patient was brought to the OR where she was sedated and intubated by anesthesia. IV's and an arterial line were established by anesthesia. She was carefully positioned supine on the operating table with her neck extended and head resting on a donut. Her neck was prepped and draped in a sterile fashion. We localized over the C6/7 interspace with lateral fluoroscopy, and I then made a 3 cm incision extending from the midline to the right side. I obtained hemostasis with bipolar cautery and performed sharp dissection down to the platysma. The platysma was opened parallel with its fibers and I carefully performed sharp and blunt dissection through the deep cervical fascia to the prevertebral fascia. I carefully retracted the trachea and esophagus using Cloward hand held retractors. The carotid artery was visualized and protected with another Cloward. I sharply dissected through the prevertebral fascia exposing the ventral cervical spine. We confirmed our level using a spinal needle and lateral fluoroscopy to be at C6/7, . I positioned my retractors and undermined the longus colli bilaterally with bovie monocautery. I carefully placed Blackbelt retractors deep to longus colli on either side and inserted Clementon pins in the mid vertebral body of C6 and C7 5mm rostral and caudal from the disc space paralell with the endplates. The superior Clementon pin location was confirmed by radiology. A distractor was placed across the pins and the microscope was brought into the field. I opened the annulus with a 15 blade and performed piecemeal discectomy with large curved curettes, pituitary's and 2mm Kerrisons. I drilled off the dorsal osteophytes using an AM 8 bit on the AC Immune SAas Peter drill. I drilled down to the dorsal disc space to the posterior longitudinal ligament which was opened with a curved curette in order to complete bilateral dorsal osteophytectomies with my 2mm Kerrison. ONce my decompression was complete. I then inserted my trials. An [id number] LDR Mobi-C disc replacement was inserted with good positioning confirmed on lateral and AP fluoroscopy. I then removed my Clementon pins and waxed each hole. I irrigated copiously with antibiotic containing irrigation. I carefull obtained hemostasis with FloSeal and bipolar cautery. The wound was closed in multiple layers with the platysma being closed with 2-0 vicryl, the subcutaneous tissue closed with 2-0 vicryl and the skin was closed with a 4-0 monocryl in simple subcuticular fashion. The patient was then extubated and taken to PACU in stable condition. PRE-OP/PRE-PROCEDURE DIAGNOSIS: Spinal stenosis of cervical region [M48.02] Intervertebral disc disorder with myelopathy, cervical region [M50.00] POST-OP/POST-PROCEDURE DIAGNOSIS: Spinal stenosis of cervical region [M48.02] Intervertebral disc disorder with myelopathy, cervical region [M50.00] ESTIMATED BLOOD LOSS: 50 mls SPECIMENS: None IMPLANTABLE DEVICES: Mobi C prosthetic disc DRAINS: None COMPLICATIONS: None PARTICIPATION IN SURGERY/PROCEDURE: I performed the procedure with assistance. SIGNATURE: Ml Guallpa MD PATIENT NAME: Nora Grande DATE: December 09, 2018 TIME: 1:28 PM PAGER/CONTACT #: [facility] PT EDon 12-08-2018 PT ED HNO ID: [id number] Author: Libertad (Rn) TOMY Delarosa Service: Nursing Author Type: Registered Nurse Type: Patient Education Filed: 12/08/2018 3:31 PM Note Text: POST OP LEARNING RESPONSE INSTRUCTION PROVIDED TO: Patient and family member METHOD OF INSTRUCTION: Verbal instruction PATIENT / FAMILY RESPONSE: Verbalizes understanding of: post op care FOLLOW-UP PLAN: Complete - No need for follow-up SUPPLEMENTAL MATERIAL: None REFERRAL (RECOMMENDATION): None Electronically Signed By: Libertad Delarosa RN In Department: [facility] Potassiumon 12-08-2018 Potassium molar conc 3.4 mmol/L Low 3.7-5.1 [facility] XR CERVICAL 2V AP/LATon 11-17 XR CERVICAL 2V AP/LAT * * *Final Report* * * DATE OF EXAM: Dec 08 2018 12:27PM HCR [id number] - XR CERVICAL 2V AP/LAT / PROCEDURE REASON: PAIN * * * * Physician Interpretation * * * * RESULT: INTRAOPERATIVE FLUOROSCOPY OF THE CERVICAL spine HISTORY: Instrumentation RESULT: Fluoroscopic Radiation Summary: Plane A, Air Kerma: 1.0 mGy Dose Area Product (DAP): 0.0 mGy*cmS2 Fluoro time: 0:13 min:sec Study was performed by Dr. Guallpa. Interbody device is noted at C6/7. Please refer to operative report for full details. IMPRESSION: Intraoperative fluoroscopy for localization purposes only. Transcribed Using Voice Recognition Transcribe Date/Time: Dec 08 2018 12:42P Dictated by: NATALIA GUTIERREZ MD This examination was interpreted and the report reviewed and electronically signed by: NATALIA GUTIERREZ MD on Dec 08 2018 12:42PM EST [id number] XR VERIFY LEVEL [id number]-[id number] 12-08-2018 XR VERIFY LEVEL C-SPINE-NB * * *Final Report* * * DATE OF EXAM: Dec 08 2018 11:52AM HCR [id number] - XR VERIFY LEVEL C-SPINE-NB / PROCEDURE REASON: PAIN * * * * Physician Interpretation * * * * RESULT: Accession number: [id number] COMPARISON: INDICATION: PAIN EXAMINATION: XR VERIFY LEVEL C-SPINE-NB RESULT: See Impression IMPRESSION: Lateral cervical spine view from the OR annotated. Findings discussed with Dr. Guallpa at 11:57 AM on 12/08/2018 Transcribed Using Voice Recognition Transcribe Date/Time: Dec 08 2018 11:57A Dictated by: ARTEM SANTIAGO MD This examination was interpreted and the report reviewed and electronically signed by: ARTEM SANTIAGO MD on Dec 08 2018 11:58AM EST [id number] NURSING PROGon 12-04-2018 Protein mass conc HNO ID: [id number] Author: Mary Palma (Rn) TOMY Vallejo Service: ? Author Type: Registered Nurse Type: Nursing Progress Note Filed: 12/07/2018 2:09 PM Note Text: PACC Nurse Progress Note History AND Physical: PACC Visit Date: 12/03/2018 Original HANDP Date: 12/03/[address] Garcia ED visit Date: N/A Outside HANDP Scanned Date: N/A Labs Within Last 6 Months: CBC: Date 12/03/2018 WNL except: Hct - 46.3 BMP/CMP: Date 12/03/2018 Glu-129, Creat-1.19, K+ - 2.9, Chl-94, COs - 32 UA: Date 12/03/2018 see Epic Urine C+S: Date 12/03/2018 IN PROCESS STAAMP: Date 12/04/2018 IN PROCESS Imaging Within Last 12 Months: MRI cervical spine - 09/24/2018 Chest X-ray - 12/03/2018 - NO ACUTE RADIOGRAPHIC ABNORMALITY. Cardiac Testing: EKG in last 12 Months: Yes: Date: 12/03/2018 Procedure Date : Dec 03 2018 13:10:37 Diagnosis:SINUS BRADYCARDIA BIATRIAL ENLARGEMENT ABNORMAL ECG Confirmed by Hang GARCIA RAVISANKAR ([id number]) on 12/04/2018 9:28:58 AM Ventricular Rate : 55 BPM Atrial Rate : 55 BPM Stress Test Date: 12/03/2018 CONCLUSION: NORMAL EXCEPT FOR: LOW CHRONOTROPIC RESPONSE INDEX. ADDITIONAL COMMENTS: DR GARCIA REVIEWED WITH PATIENT. Last Menstrual Period: LMP Date: not on record Postmenopausal >1yr: Yes S/P Hysterectomy: Yes BMI Percentile (PEDS): N/A Wt 96 lb (43.5kg) BMI 17.55 kg/(m2) Risk Assessment: ASSESSMENT/PLAN: 1. Pre-operative cardiovascular examination(primary diagnosis) Patient with the hypertension and smoking family history of CAD contemplating spine surgery recommended stress test patient walked on Myles protocol for 9 minutes no chest pain at peak exercise no EKG changes suggestive of ischemia. Patient explained the test results. Cardiac point of view patient risk for the contemplating surgery is mild to moderate continue present medication perioperatively. MD Edgardo Eckert and Jany Melgar Department of Cardiovascular Medicine Heart and Vascular [place] [facility] Cardiology 12/03/2018 Anesthesia Review: N/A Narrative: N/A Pre-op Considerations: Fibromyalgia COPD type HTN JORGE - not usuing CPAP now JANG Nausea: chronic and intermittent Chart Check: IN PROGRESS - SM to provider re: low K+; LM with surgeon office (Aggie); urine CANDS and nasal swab in process Mary Vallejo RN December 04, 2018 10:25 AM ADDENDUM: Nasal Swab: 12/03/2018 -Staph Urine CANDS: 12/03/2018 - No growth Mary Vallejo RN December 07, 2018 7:13 AM ADDENDUM Chart Check - ARISTIDES Menon from Dr. Guallpa's office is aware of the low K+. Mary Vallejo RN December 07, 2018 2:09 PM [facility] HOSPon 12-03-2018 HOSP Patient:Dennis Grande MRN: Height:5' 2(1.575 m) Weight:119 lb (53.978 kg) Outpatient Medications as of 12/08/18: pregabalin (LYRICA) 150 mg capsule cyclobenzaprine (FLEXERIL) 10 mg tablet orphenadrine ER (NORFLEX) 100 mg tablet clonazePAM (KLONOPIN) 1 mg tablet buPROPion SR (ZYBAN SR; WELLBUTRIN SR) 150 mg 12 hr tablet lidocaine (LIDODERM) 5 % QUEtiapine (SEROQUEL) 100 mg tablet FLUTICASONE/VILANTEROL (BREO ELLIPTA INHALATION) UMECLIDINIUM BROMIDE (INCRUSE ELLIPTA INHALATION) triamcinolone acetonide (KENALOG) 0.1 % cream nystatin (MYCOSTATIN) cream DULoxetine (CYMBALTA) 60 mg capsule hydrOXYzine HCl (ATARAX) 25 mg tablet capsaicin (ZOSTRIX) 0.025 % cream COMPOUNDED PRESCRIPTION hydrochlorothiazide (HYDRODIURIL, ESIDRIX) 25 mg tablet CPAP pediatric multivitamin gummy without iron (JENNIFER DOO) chew chewable tablet ondansetron (ZOFRAN) 4 mg tablet Diclofenac Sodium (VOLTAREN) 1 % gel estradiol (ESTRACE) 0.01 % (0.1 mg/gram) vaginal cream Admission/Clinic Administered Medications as of 12/08/18: lidocaine 10 mg/mL (1 %) 1-2 mg injection (XYLOCAINE) lactated ringers infusion ceFAZolin iv piggyback 2 g in D5W (iso-osmotic) 100 mL (ANCEF) bacitracin 50,000 Units in sodium chloride 0.9 % 1,000 mL bupivacaine liposome (PF) 1.3 % (13.3 mg/mL) 266 mg injection (EXPAREL) Problem List: Fibromyalgia [M79.7] Capsulitis [M77.9] 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] Postmenopausal atrophic vaginitis [N95.2] COPD (chronic obstructive pulmonary disease) (HCC) [J44.9] Tobacco use disorder, continuous [F17.209] Patent foramen ovale [Q21.1] Encounter for screening colonoscopy [Z12.11] HTN (hypertension) [I10] Psychophysiological insomnia [F51.04] Depression [F32.9] JORGE (obstructive sleep apnea) RDI 67 CMS AHI 1.3 [G47.33] Chronic low back pain with sciatica [M54.40, G89.29] DDD (degenerative disc disease), lumbar [M51.36] Cervical spondylosis without myelopathy [M47.812] Cervicalgia [M54.2] Abnormal echocardiogram [R93.1] PTSD (post-traumatic stress disorder) [F43.10] 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] Radiculopathy, lumbar region [M54.16] Neural foraminal stenosis of lumbar spine [M99.83] Intervertebral disc stenosis of neural canal of lumbar region [M99.53] Myelopathy (HCC) [G95.9] Hypopotassemia [E87.6] Allergies: Ciprofloxacin Codeine Date Verified: 12/08/18 Lab Values Lab Value Units Date High Low POTA* 3.4 mmol/L 12/08/2018 5.1 3.7 ANTONIO* 46.3 % 12/03/2018 46.0 36.0 Progress Notes ([facility]): Aggie Navarro [facility] [place] 12/04/2018 11:04 AM Signed Yari from [facility] is calling regarding the patients Labs Would like to speak with nurse or PA regarding States she will only be in the office until noon today 12/04/18 . [phone] Aggie Navarro [facility] [place] December 04, 2018 11:04 AM Lynsey Carroll, RN, RN 12/04/2018 12:37 PM Signed Attempted to call [facility], left with this RN contact number. Will route encounter to GREGOR Chilel to review labs. Lynsey Carroll RN December 04, 2018 12:30 PM Jeremy Garay PA-C 12/04/2018 3:39 PM Addendum Laboratory data shows some electrolyte abnormalities It especially that patient is hypokalemic. Not sure if hypokalemia will be an issue with anesthesia and surgery. Not sure if patient can be treated for this hypokalemia day of surgery or will need to be seen by PCP for treatment. We'll discuss with Dr. Guallpa. Jeremy Garay PA-C, MPAs Previous Version Lynsey Carroll RN, RN 12/07/2018 10:36 AM Signed 1026: This RN attempted to return call to Mary from [facility]. No answer, left advising this RN notified PA of lab, will discuss with Dr. Guallpa. This RN contact number left on . 1034: Mary returned call to this RN. Discussed patient potasium level and provided information as discussed with Jeremy Garay PA-C on 12/04/18, awaiting response from PA. Will notify Mary if there is any further action required from [facility]. Lynsey Carroll RN December 07, 2018 10:36 AM Progress Notes ([facility]): Nikole Norris, SINCERE 12/03/2018 9:44 AM Signed Radiology Service Progress Note PATIENT NAME: Nora Grande DATE OF SERVICE: December 03, 2018 TIME: 9:40 AM PATIENT IDENTITY VERIFICATION COMPLETED USING TWO (2) METHODS: Patient confirmed name verbally and Date of . PATIENT GENDER DATA: Female. status: : No status: NO. PATIENT RELEVANT IMPLANT DATA REVIEWED: Not Applicable RADIOLOGY DEPARTMENT: General X-ray: Exam(s) Completed: Chest X-Ray PERIPHERAL IV DATA: Not applicable SIGNED BY: Nikole Norris, SINCERE December 03, 2018 9:40 AM [facility] MRI CERVICAL SPINE WO IVCONo n 09-24-2018 MRI CERVICAL SPINE WO IVCON * * *Final Report* * * DATE OF EXAM: Sep 24 2018 7:30PM [facility] 0297 - MRI CERVICAL SPINE WO IVCON / PROCEDURE REASON: M48.02-Spinal stenosis of cervical region * * * * Physician Interpretation * * * * EXAMINATION: MRI CERVICAL SPINE WO IVCON CLINICAL HISTORY: Neck pain for years. No reported injury. TECHNIQUE: Routine cervical spine MR protocol without gadolinium. MQ: [id number] COMPARISON: None. RESULT: Counting reference: Craniocervical junction. Anatomic Variants: None. Alignment: Mild straightening of usual cervical lordosis. Craniocervical junction: Craniocervical junction is normal. Cord: Limited CSF space surrounding cord at the C5-C6 and C6-7 levels related to chronic disc and bony degenerative change. No myelomalacia. Bone marrow signal/fracture: Endplate degenerative changes are greatest at C4-C5 through the C6-C7 level. Cervical soft tissues: The paraspinal soft tissues are within normal limits. C2-C3: Canal and foramina are patent. C3-C4: Canal and foramina are patent. C4-C5: 2 mm retrolisthesis, loss of disc height, endplate and uncinate osteophyte, and facet degenerative change. Limited CSF space surrounding cord, but no gross compression. Moderate right and mild left foraminal narrowing. C5-C6: 2 mm retrolisthesis, loss of disc height, endplate and uncinate osteophyte, and facet degenerative change. Limited CSF space surrounding cord, but no gross compression. Mild right and moderate left foraminal narrowing. C6-C7: 2 mm retrolisthesis, loss of disc height, endplate and uncinate osteophyte, and facet degenerative change. Limited CSF space surrounding cord, but no gross compression. Mild foraminal narrowing bilaterally. C7-T1: Canal and foramina are patent. Upper thoracic spinal canal and neural foramina are normally patent at the T1-T2 through the T4-T5 level. IMPRESSION: Loss of disc height, endplate and uncinate osteophyte at C4-C5 through the C6-C7 level. Foraminal narrowing as detailed. No gross cord compression or myelomalacia. Would expect radiculopathy related to the above findings. Anatomic Variant: None. Assume 7 cervical vertebrae with counting from the craniocervical junction. Angle Roll Operator: [facility] Transcribe Date/Time: Sep 24 2018 7:39P Dictated by : ELAINA PERES MD This examination was interpreted and the report reviewed and electronically signed by: ELAINA PERES MD on Sep 24 2018 7:43PM EST [id number] Normal [facility] HISTORY PHYSICALon 8 HISTORY PHYSICAL HNO ID: [id number] Author: Zachary Bauman Service: Pain Management Author Type: Physician Type: HANDP Filed: 08/04/2018 12:01 PM Note Text: HISTORY AND PHYSICAL EXAMINATION PATIENT NAME: Nora Grande DATE of SERVICE: 08/04/2018 Nora Grande is here for the pain mangement procedure. The patient presents with persistent pain complaints. Nora Grande denies any interval changes or new pain complaints or focal neurologic deficits. 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 (11/2015) - Abnormal Pap smear - COPD (chronic obstructive pulmonary disease) (HCC) - Fibromyalgia - Other and unspecified ovarian cyst Ovarian cyst - Patent foramen ovale 07/19/2014 - Skin cancer - Tobacco use - Tobacco use disorder, continuous 07/19/2014 - Urinary tract infection PAST SURGICAL HISTORY Procedure Laterality Date - CARPAL TUNNEL bilateral - COLONOSCOP W/ OR W/O BRSH SPEC 11/23/14 Colonoscopy - PAST SURGICAL HISTORY OF Bilateral foot surgeries-neuromas - TOTAL ABDOM HYSTERECTOMY Hysterectomy, SAGE Cysts on ovaries, Social History Marital status: Spouse name: Years of education: 12 Number of children: 2 Occupational History 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 Social History Main Topics Smoking status: Current Some Day Smoker Packs/day: 0.50 Years: 0.00 Start date: 08/18/1979 Smokeless tobacco: Never Used Alcohol use: No Drug use: No Sexual activity: Not Currently control/protection: Surgical Comment: Pt has had a Hysterectomy Social History Narrative Works in [employer]. Sometimes heavy lifting, continuous moving. She has an adult ADHD son, not doing well (seizures). Grandson, great grandson. The grandchildren are living with her. She has to take care of her son but he lives elsewhere. FAMILY HISTORY Problem Relation Age of Onset - Heart Father PA - Breast Cancer Maternal Grandmother Ovarian as well - Cancer Maternal Grandmother breast and ovary. - Heart Brother - Heart Brother ALLERGIES Allergen Reactions - Ciprofloxacin GI Upset, Vomiting Dizziness - Codeine Hives, Itching Generalized. Current Facility-Administered Medications: NaCl 0.9% iv infusion 30 mL/hr INTRAVENOUS CONTINUOUS Physical Exam: Performed in conjunction with observation. The patient is alert and oriented x3. The patient is in no acute distress. Neck: Supple. The range of motion is intact. Lungs: clear CVR: RRR. Extremities: no reported edema or erythema. Examination indicates no changes Impression: Lumbar stenosis Lumbar radiculopathy Plan: The informed consent has been obtained. The plan is to proceed with the procedure as planned. SIGNATURE: Zachary Bauman MD DATE: August 04, 2018 TIME: 12:01 PM [facility] NURSING PROGon 08-04-2018 Protein mass conc HNO ID: [id number] Author: Eleanor KapoorRn) TOMY Franco Service: Nursing Author Type: Registered Nurse Type: Nursing Progress Note Filed: 08/04/2018 1:35 PM Note Text: Nursing Progress Note Patient Name: Nora Grande Patient Location: [facility] Surgery __ 1313 Pt received in PACU on cart from Endo post injection. VSS. Snack given. This note was completed by: Eleanor Franco RN 1328 IV removed. Site without redness or swelling. Homegoing instructions given. Pt verbalizes understanding. Pt able to stand and ambulate with steady gait. 1332 Pt discharged to home via wheelchair to car accomp by staff in stable cond. [facility] Protein mass conc HNO ID: [id number] Author: Tracie KapoorRn) TOMY Johnson Service: Nursing Author Type: Registered Nurse Type: Nursing Progress Note Filed: 08/04/2018 11:56 AM Note Text: Nursing Progress Note Patient Name: Nora Grande Patient Location: [facility] Surgery/[facility] Surgery __ pt ready for OR, call light in reach, no visitors to bedside per pt request. Needs HANDP and consent prior to OR This note was completed by: Tracie Johnson RN [facility] OPERATIVE NOon 08-04-2018 OPERATIVE NO HNO ID: [id number] Author: Zachary Bauman Service: Pain Management Author Type: Physician Type: Operative Report Filed: 08/04/2018 1:08 PM Note Text: PATIENT NAME: Nora Grande SERVICE DATE: 08/04/2018 PROCEDURE NOTE PREOPERATIVE DIAGNOSIS(ES) Lumbar radiculopathy Lumbar disc displacement Lumbar canal stenosis without neurogenic claudication Lumbar DDD POSTOPERATIVE DIAGNOSIS(ES): Same OPERATION: Bilateral L5-S1 lumbar transforaminal epidural steroid injection under fluoroscopy. ANESTHESIA: versed 4mg IV INDICATIONS: The patient presents for lumbar transforaminal epidural steroid injection. Since the last visit, the patient denies any new pain complaints and denies any focal neurological deficits. As discussed and outlined in the office and confirmed today, the plan is to proceed with lumbar transforaminal epidural steroid injection. The risks and benefits of the procedure were discussed. Specifically, the risks of bleeding, infection, inadvertent dural puncture, spinal heaches, vasovagal reaction, epidural hematoma, partial or permanent nerve injury were covered. The potential side effects of medications used in procedures including increase in lumbar pain, headaches, facial redness or warmth (flushing), anxiety or mood swings, sleeplessness, fever, high blood sugar, brief reduction in immunity were discussed. The patient expressed understanding of potential risks and wishes to proceed with the procedure. OPERATIVE PROCEDURE: The patient was brought to the operating room. The patient was placed in the prone position with routine monitors placed. The lower back was prepped in sterile fashion. Upon AP projection under fluoroscopy, L5-S1 level was identified. The fluoroscopy was rotated in oblique projection to identify the neuroforamen. Entry point was marked and anesthetized with 0.25% Marcaine. This was followed by insertion of a 5 inch spinal needle, which was inserted and advanced towards the 12 o' clock of the L5-S1 neuroforamen. Once the Needle tip contacted the inferior lateral aspect of the pedicle, aspiration was performed which was negative for blood or CSF. This was followed by injection of Omnipaque 300, which revealed a spread through the neuroforamen into the anterior epidural space. There was no evidence of intravascular or intrathecal flow. This was then repeated on the left side using the same technique. No difficulty was encountered. This was then followed by a total injection of 5 mL of 0.25% Marcaine with 40 mg of Depomedrol in divided and equal doses to bilateral sites. The patient tolerated the procedure well. The needles were removed intact. Dry dressing was placed over the injection site. The patient was taken to the recovery room in stable condition. EBL: nil Start time: 12:53 PM End time: 1:01 PM I was present the entire time and personally performed the procedure. SIGNATURE: Zachary Bauman MD DATE: August 04, 2018 TIME: 1:08 PM [facility] PT EDon 08-04-2018 PT ED HNO ID: [id number] Author: Eleanor KapoorRnEstefany Franco RN Service: Nursing Author Type: Registered Nurse Type: Patient Education Filed: 08/04/2018 1:35 PM Note Text: POST OP LEARNING RESPONSE INSTRUCTION PROVIDED TO: Patient METHOD OF INSTRUCTION: Individual instruction Written instruction - handouts Verbal instruction PATIENT / FAMILY RESPONSE: Information received as demonstrated by interest and questions FOLLOW-UP PLAN: Patient instructed to call with any further issues SUPPLEMENTAL MATERIAL: Post op discharge instructions REFERRAL (RECOMMENDATION): None Electronically Signed By: Eleanor Franco RN In Department: [facility] SURGERY [facility] PT ED HNO ID: [id number] Author: Tracie Johnson RN Service: Nursing Author Type: Registered Nurse Type: Patient Education Filed: 08/04/2018 11:57 AM Note Text: PRE OP LEARNING ASSESSMENT PROCEDURE/SURGERY: SURGERY: Pedro Low back injection READINESS TO LEARN COGNITIVE ABILITY: Alert and oriented MOTIVATION TO LEARN: Interested FAMILY SUPPORT: Unable to assess - Family not present PATIENT LEARNS BEST BY: Written Instruction - Hand-outs Verbal Instruction FACTORS AFFECTING LEARNING: None PHYSICAL LIMITATIONS AFFECTING LEARNING: None Electronically Signed By: Tracie Johnson RN In Department: [facility] SURGERY [facility] XR FLUOROSCOPYon 08-04-2018 XR FLUOROSCOPY * * *Final Report* * * DATE OF EXAM: Aug 04 2018 1:05PM [facility] 5513 - XR FLUOROSCOPY / PROCEDURE REASON: pain * * * * Physician Interpretation * * * * INDICATION: Pain management TECHNIQUE: 4 submitted fluoroscopic spot images Fluoroscopic Radiation Summary: Plane A, Air Kerma: 3.4 mGy Plane B, Air Kerma: 0.0 mGy Dose Area Product (DAP): 256.9 mGy*cmS2 Fluoro time: 0:13 min:sec FINDINGS/ IMPRESSION: 4 submitted fluoroscopic spot images demonstrate needles with associated contrast overlying the lower lumbar spine bilaterally. Refer to the procedure note for details regarding this procedure. Angle Roll Operator: AP[facility] Transcribe Date/Time: Aug 04 2018 1:30P Dictated by : DENISE LUNA MD This examination was interpreted and the report reviewed and electronically signed by: DENISE LUNA MD on Aug 04 2018 1:31PM EST [id number] [facility] HOSPon 07-16-2018 HOSP Patient:Dennis Grande MRN: Height:5' 2(1.575 m) Weight:120 lb (54.432 kg) Outpatient Medications as of 08/04/18: buPROPion SR (ZYBAN SR; WELLBUTRIN SR) 150 mg 12 hr tablet capsaicin (ZOSTRIX) 0.025 % cream clonazePAM (KLONOPIN) 1 mg tablet COMPOUNDED PRESCRIPTION CPAP cyclobenzaprine (FLEXERIL) 10 mg tablet Diclofenac Sodium (VOLTAREN) 1 % gel DULoxetine (CYMBALTA) 60 mg capsule estradiol (ESTRACE) 0.01 % (0.1 mg/gram) vaginal cream FLUTICASONE/VILANTEROL (BREO ELLIPTA INHALATION) hydrochlorothiazide (HYDRODIURIL, ESIDRIX) 25 mg tablet hydrOXYzine HCl (ATARAX) 25 mg tablet lidocaine (LIDODERM) 5 % nystatin (MYCOSTATIN) cream ondansetron (ZOFRAN) 4 mg tablet orphenadrine ER (NORFLEX) 100 mg tablet pediatric multivitamin gummy without iron (JENNIFER DOO) chew chewable tablet pregabalin (LYRICA) 150 mg capsule QUEtiapine (SEROQUEL) 100 mg tablet triamcinolone acetonide (KENALOG) 0.1 % cream UMECLIDINIUM BROMIDE (INCRUSE ELLIPTA INHALATION) Admission/Clinic Administered Medications as of 08/04/18: NaCl 0.9% iv infusion Problem List: Fibromyalgia [M79.7] Capsulitis [M77.9] 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] Postmenopausal atrophic vaginitis [N95.2] COPD (chronic obstructive pulmonary disease) (HCC) [J44.9] Tobacco use disorder, continuous [F17.209] Patent foramen ovale [Q21.1] Encounter for screening colonoscopy [Z12.11] HTN (hypertension) [I10] Psychophysiological insomnia [F51.04] Depression [F32.9] JORGE (obstructive sleep apnea) RDI 67 CMS AHI 1.3 [G47.33] Chronic low back pain with sciatica [M54.40, G89.29] DDD (degenerative disc disease), lumbar [M51.36] Cervical spondylosis without myelopathy [M47.812] Cervicalgia [M54.2] Abnormal echocardiogram [R93.1] PTSD (post-traumatic stress disorder) [F43.10] 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] Radiculopathy, lumbar region [M54.16] Neural foraminal stenosis of lumbar spine [M99.83] Intervertebral disc stenosis of neural canal of lumbar region [M99.53] Allergies: Ciprofloxacin Codeine Date Verified: 08/04/18 Lab Values No results within the last 30 days for the following basenames: K,HCT No progress notes entered within the past 30 days [facility] Rx Refill: eRx Request for I NCRUSE ELLIPTA 62.5 MCG/INH INH AEPBon 12-20-2016 e-scripts messenger refill request [id number]`INCRUSE ELLIPTA 62.5 MCG/INH INH AEPB```1 Inhaler``1 puff dialy```0`09/17/2016`N o date sent`[facility] [address] [place]*`[id number]`00 [id number]`INCRU SE ELLIPTA 62.5 MCG BLST W/DEV Quantity: 30 Blister Instructions: INHALE 1 (ONE) puff BY MOUTH EVERY DAY [facility] Phone: Office Visit: COPDon 017 Documentation of current medications (procedure) Done Invalid Interpretation Code [facility] Phone: Tobacco smoking status NHIS Current Invalid Interpretation Code [facility] Phone: Tobacco use [facility] Former smoker Invalid Interpretation Code [facility] Work Phone: Lab Report: BNP,B-Type NATRI URETIC PEPTIDEon 11-13-2015 BNP 35.3 pg/mL Invalid Interpretation Code 0-100 [facility] Work Phone: Lab Report: Basic Metabolic Profile (BMP)on 11-13-2015 Anion gap 6 mmol/L Invalid Interpretation Code 5-15 [facility] Work Phone: BUN/Creatinine Ratio 11.4 RATIO Invalid Interpretation Code 10-20 [facility] Work Phone: Calcium 8.6 mg/dL Invalid Interpretation Code 8.5-10.1 [facility] Work Phone: Chloride 106 mmol/L Invalid Interpretation Code 98-107 [facility] Work Phone: CO2 31.0 mmol/L Invalid Interpretation Code 21.0-32.0 [facility] Work Phone: Creatinine 1.14 mg/dL Invalid Interpretation Code 0.55-1.20 [facility] Work Phone: eGFR (non-black) 52 mL/min/{1.73_m2} Low >60 [facility] Work Phone: eGFR (non-black) 62 mL/min/{1.73_m2} Invalid Interpretation Code >60 [facility] Work Phone: Glucose 105 mg/dL Invalid Interpretation Code 70-110 [facility] Work Phone: Potassium 4.1 mmol/L Invalid Interpretation Code 3.5-5.1 [facility] Phone: Sodium 143 mmol/L Invalid Interpretation Code 136-145 [facility] Work Phone: Urea nitrogen 13 mg/dL Invalid Interpretation Code 7-18 [facility] Work Phone: Office Visit: COPD & OSAon 0 11-13-2015 Smoking cessation education (procedure) yes Invalid Interpretation Code [facility] Phone: Lab Report: Iron+Iron Bindin g Capacityon 08-23-2015 Iron 38 ug/dL Low 50-170 [facility] Phone: iron binding capacity, total 347 ug/dL Invalid Interpretation Code 250-450 [facility] Phone: iron saturation percent, serum 11.0 % Low 15.0-55.0 [facility] Work Phone: Vital Signs Date Time Vital Sign Value Performing Clinician Facility 05-19-2025 15:53-0400 Body temperature 98.1 [degF] Dr. Claudine Mallory DO Work Phone: [facility] 05-19-2025 15:53-0400 Diastolic blood pressure 90 mm[Hg] Dr. Claudine Mallory DO Work Phone: [facility] 05-19-2025 15:53-0400 Heart rate 82 /min Dr. Claudine Mallory DO Work Phone: [facility] 05-19-2025 15:53-0400 Respiratory rate 16 /min Dr. Claudine Mallory DO Work Phone: [facility] 05-19-2025 15:53-0400 SaO2% (BldA) [Mass fraction] 100 % Dr. Claudine Mallory DO Work Phone: [facility] 05-19-2025 15:53-0400 Systolic blood pressure 144 mm[Hg] Dr. Claudine Mallory DO Work Phone: [facility] 05-18-2025 14:10-0400 Body temperature 97.3 [degF] Dr. Claudine Mallory DO Work Phone: [facility] 05-18-2025 14:10-0400 Diastolic blood pressure 73 mm[Hg] Dr. Claudine Mallory DO Work Phone: [facility] 05-18-2025 14:10-0400 Heart rate 89 /min Dr. Claudine Mallory DO Work Phone: [facility] 05-18-2025 14:10-0400 Respiratory rate 16 /min Dr. Claudine Mallory DO Work Phone: [facility] 05-18-2025 14:10-0400 SaO2% (BldA) [Mass fraction] 99 % Dr. Claudine Mallory DO Work Phone: [facility] 05-18-2025 14:10-0400 Systolic blood pressure 127 mm[Hg] Dr. Claudine Mallory DO Work Phone: [facility] 05-17-2025 22:42-0400 Body height 157.[address] Claudine Mallory DO Work Phone: [facility] 05-17-2025 22:42-0400 Body mass index (BMI) [Ratio] 25.9 kg/m2 Dr. Claudine Mallory DO Work Phone: [facility] 05-17-2025 22:42-0400 Body weight 64.[address] Claudine Mallory DO Work Phone: [facility] 10-29-2023 07:17-0400 Body height 157.[address] [facility] 10-29-2023 07:17-0400 Body mass index (BMI) [Ratio] 26.9 kg/m2 [facility] 10-29-2023 07:17-0400 Body temperature 95.3 [degF] [facility] 10-29-2023 07:17-0400 [facility] 10-29-2023 07:17-0400 Diastolic blood pressure 105 mm[Hg] [facility] 10-29-2023 07:17-0400 Heart rate 59 /min [facility] 10-29-2023 07:17-0400 Respiratory rate 18 /min [facility] 10-29-2023 07:17-0400 Systolic blood pressure 183 mm[Hg] [facility] 10-21-2023 13:51-0500 Body height 157.[address] [facility] 10-21-2023 13:51-0500 Body weight 63.5 kg Claudine [facility] 10-21-2023 13:51-0500 Heart rate 80 /min [facility] 10-21-2023 13:51-0500 SaO2% (BldA) [Mass fraction] 94 % [facility] 10-09-2023 08:48-0500 Diastolic blood pressure 109 mm[Hg] [facility] 10-09-2023 08:48-0500 Systolic blood pressure 172 mm[Hg] [facility] 10-09-2023 05:53-0500 Body height 162.[address] [facility] 10-09-2023 05:53-0500 Body mass index (BMI) [Ratio] 24.7 kg/m2 [facility] 10-09-2023 05:53-0500 Body temperature 97.5 [degF] [facility] 10-09-2023 05:53-0500 Body weight 65.[address] [facility] 10-09-2023 05:53-0500 Heart rate 70 /min [facility] 10-09-2023 05:53-0500 Respiratory rate 18 /min [facility] 10-09-2023 05:53-0500 SaO2% (BldA) [Mass fraction] 93 % [facility] 09-17-2016 10:25-0500 BMI (Body Mass Index) 29.81 kg/m2 Vanesa Hatfield CNP [facility] Work Phone: 09-17-2016 10:25-0500 Body Temperature 98.2 [degF] Vanesa Hatfield [facility] Work Phone: 09-17-2016 10:25-0500 Body Temperature 98.24 [degF] Vanesa Hatfield [facility] Work Phone: 09-17-2016 10:25-0500 BP Diastolic 93 mm[Hg] Vanesa Hatfield [facility] Work Phone: 09-17-2016 10:25-0500 BP Systolic 135 mm[Hg] Vanesa Hatfield CNP [facility] Work Phone: 09-17-2016 10:25-0500 BSA (Body Surface Area) 1.75 m2 Vanesa Hatfield CNP [facility] Work Phone: 09-17-2016 10:25-0500 Height 157.48 cm Vanesa Hatfield CNP [facility] Work Phone: 09-17-2016 10:25-0500 Pulse (Heart Rate) 67 /min Vanesa Hatfield CNP [facility] Phone: 09-17-2016 10:25-0500 Pulse Oximetry 95 % Vanesa Hatfield CNP [facility] Phone: 09-17-2016 10:25-0500 Respiratory Rate 18 /min Vanesa Hatfield CNP [facility] Phone: 09-17-2016 10:25-0500 Weight 73.94 kg Vanesa Hatfield CNP [facility] Phone: 09-17-2016 10:25-0500 Weight 74.09 kg Vanesa Hatfield CNP [facility] Phone: Encounters Encounter Date Encounter Type Care Provider Facility Start: 05-26-2025 End: 05-26-2025 ambulatory [facility] Facility:[facility] Start: 05-19-2025 Non-patient / Non-visit Dr. Yordan colby MD -[facility] Work Phone: Start: 05-18-2025 ambulatory [facility] Facility: [facility] Start: 05-18-2025 Non-patient / Non-visit Connor Castle nd [facility] Start: 05-18-2025 Non-patient / Non-visit Dr. Yordan colby MD -[facility] Work Phone: Start: 05-17-2025 Non-patient / Non-visit Connor Castle nd [facility] Start: 05-17-2025 Non-patient / Non-visit Dr. Kaila Mike MD -[facility] Work Phone: Start: 05-16-2025 End: 05-19-2025 Evaluation and management of inpatient Dr. Yordan Newman MD -[facility] 3 Work Phone: Start: 05-16-2025 ambulatory Claudine Sara Facility: [facility] Start: 05-16-2025 Non-patient / Non-visit Dr. Zachary shields MD -[facility] Work Phone: Start: 05-16-2025 End: 05-16-2025 ambulatory CHASE CRAWFORD Facility:[facility] Start: 03-02-2025 End: 03-02-[address] Claudine Mallory DO Work Phone: -Outpatient Breast Imaging Start: 03-02-2025 End: 03-02-[address] Claudine Mallroy DO -Outpatient Breast Imaging Work Phone: Start: 03-02-2025 End: 03-02-2025 ambulatory Claudine Sara Facility:[facility] Start: 11-02-2024 End: 11-02-2024 ambulatory Claudine Sara Facility:[facility] Start: 07-02-2024 End: 07-02-2024 ambulatory Claudine Mallory Facility:[facility] Start: 11-10-2023 End: 11-10-2023 ambulatory [facility] Work Phone: Start: 11-10-2023 End: 11-10-2023 Patient encounter procedure Claudine Sara [facility] Work Phone: Start: 10-29-2023 End: 10-29-2023 Patient encounter procedure Claudine GARCIA [facility]-Pulmonary Medicine [facility] Work Phone: Start: 10-23-2023 Non-patient / Non-visit Claudine GARCIA [facility] Start: 10-21-2023 End: 10-21-2023 ambulatory Claudine Sara OLS [facility] Work Phone: Start: 10-21-2023 End: 10-21-2023 Patient encounter procedure Claudien GARCIA [facility]-Outpatient Breast Imaging Work Phone: Start: 10-15-2023 End: 10-15-2023 ambulatory Claudine GARCIA [facility] Work Phone: Start: 10-15-2023 End: 10-15-2023 Patient encounter procedure Claudine GARCIA [facility]-Pulmonary Services/Neurology Work Phone: Start: 10-09-2023 End: 10-09-2023 Patient encounter procedure Claudine GARCIA [facility]-Pulmonary Medicine [facility] Work Phone: Start: 08-26-2022 End: 08-26-2022 ambulatory [facility] Work Phone: Start: 08-26-2022 End: 08-26-2022 Patient encounter procedure [facility]-Outpatient Breast Imaging Start: 06-05-2022 End: 06-05-2022 ambulatory [facility] Work Phone: Start: 06-05-2022 End: 06-05-2022 Patient encounter procedure [facility]-Cat Scan, [facility] Start: 12-08-2018 End: 12-08-2018 Patient encounter procedure [facility] Start: 09-24-2018 Patient encounter procedure [facility] Start: 08-04-2018 End: 08-04-2018 Patient encounter [facility] Procedures Date Procedure Procedure Detail Performing Clinician Start: 05-19-[address] Claudine Mallory DO Work Phone: Start: 05-19-2025 Serum inorganic phosphate measurement Dr. Claudine Mallory DO Work Phone: Start: 05-18-2025 End: 05-18-[address] Claudine Mallory DO Work Phone: Start: 05-18-[address] Claudine Mallory DO Work Phone: Start: 05-18-2025 End: 05-18-2025 Fluoroscopy guided endoscopic retrograde cholangiopancreatography Dr. Claudine Mallory DO Work Phone: Start: 05-17-[address] Claudine Mallory DO Work Phone: Start: 05-17-[address] Claudine Mallory DO Work Phone: Start: 05-16-2025 Urnls dip stick/tablet reagent auto microscopy Dr. Claudine Mallory DO Work Phone: Start: 05-16-2025 US scan of gallbladder Dr. Claudine Mallory DO Work Phone: Start: 05-16-2025 Ct abdomen & pelvis w/contrast material Dr. Claudine Mallory DO Work Phone: Start: 05-16-2025 Measurement of occult blood in stool specimen using immunoassay Dr. Claudine Mallory DO Work Phone: Start: 03-02-[address] Claudine Mallory DO Work Phone: Start: 10-21-2023 Screening mammography Claudine GARCIA Start: 10-15-2023 CT of chest Claudine GARCIA Start: 08-26-2022 Screening mammography Start: 06-05-2022 CT of chest Start: 2021 Antibody screen Comment on above: Order Comment: Specimen Type: BLOOD SPEC IMEN Performed By: #### T SCR, %MADI ####[facility] [id number] [place] [address] Start: 01-14-2021 Antibody screen Comment on above: Order Comment: Specimen Type: BLOOD SPEC IMEN Performed By: #### T SCR ####[facility] [id number] [place] [address] Start: 12-28-2020 Antibody screen Comment on above: Order Comment: Specimen Type: BLOOD SPEC IMEN Performed By: #### T SCR ####[facility] [id number] [place] [address] Start: 12-24-2020 Antibody screen Comment on above: Order Comment: Specimen Type: BLOOD SPEC IMEN Performed By: #### T SCR ####[facility] [id number] [place] [address] Start: 09-17-2016 End: 12-20-2016 BWA Vanesa Hatfield [employer] Work Phone: Start: 09-17-2016 End: 12-20-2016 Follow Up Appt 3 months Vanesa S Leticia er [employer] Work Phone: Start: 09-17-2016 End: 12-20-2016 Pulmonary Function Test - complete Vanesa Hatfield [employer] Work Phone: Start: 11-13-2015 End: 11-13-2015 *BMP Vanesa Hatfield [employer] Work Phone: Start: 11-13-2015 End: 11-13-2015 BNP Vanesa Hatfield [employer] Work Phone: Start: 11-13-2015 End: 11-13-2015 Follow Up Appt 3 months Vanesa Wildl er [employer] Work Phone: Start: 11-13-2015 End: 11-13-2015 Tte w/doppler, complete Vanesa Wildl er [employer] Work Phone: Start: 08-16-2015 End: 08-24-2015 Iron and Iron binding capacity panel - Serum or Plasma Chemo Arreaga MA H/O: hysterectomy Hx of hysterectomy History of decompres kimo of median nerve History of carpal tunnel release of both wrists Plan of Treatment Date Care Activity Detail Author Start: 06-02-2025 ambulatory Ambulatory Facility:[facility] Start: 05-21-2025 Hepatic function panel [facility] Start: 05-20-2025 Hepatic function panel [facility] Start: 05-19-2025 Patient discharge [facility] Start: 05-19-2025 Hepatic function panel [facility] Start: 05-19-2025 Serum inorganic phosphate measurement [facility] Start: 05-18-2025 Urine test [facility] Start: 05-18-2025 [facility] Start: 05-17-2025 Inhalation therapy procedure [facility] Start: 05-16-2025 End: 05-16-2025 Following clinical pathway protocol [facility] Start: 05-16-2025 Assessment of risk of venous thromboembolism [facility] Start: 05-16-2025 Insertion of catheter into peripheral vein [facility] Start: 05-16-2025 Oxygen therapy [facility] Start: 05-16-2025 Providing care according to standard [facility] Start: 05-16-2025 Provision of activity privileges [facility] Start: 05-16-2025 Referral to gastroenterology service [facility] Start: 05-16-2025 [facility] Start: 05-16-2025 Verification routine [facility] Start: 05-16-2025 Admission procedure [facility] Start: 02-05-2017 End: 02-05-2017 Appointment Appointment [facility] Phone: Start: 09-17-2016 End: 12-20-2016 BWA BWA [facility] Phone: Start: 09-17-2016 End: 12-20-2016 Follow Up Appt 3 months Follow Up Appt 3 months [facility] Phone: Start: 09-17-2016 End: 12-20-2016 Pulmonary Function Test - complete Pulmonary Function Test - complete [facility] Phone: Start: 01-12-2016 End: 01-12-2016 *NIYAH *NIYAH [facility] Phone: Start: 01-12-2016 End: 01-12-2016 *CBC with Differential *CBC with Differential [facility] Phone: Start: 01-12-2016 End: 01-12-2016 *CELIAC Celiac Disease AB [id number] *CELIAC Celiac Disease AB [id number] [facility] Phone: Start: 01-12-2016 End: 01-12-2016 *CMP Complete Metabolic Panel *CMP Complete Metabolic Panel [facility] Phone: Start: 01-12-2016 End: 01-12-2016 C reactive protein (hsCRP) *CRP - C-Reative Protein [facility] Phone: Start: 01-12-2016 End: 01-12-2016 Erythrocyte sedimentation rate *Sedimentation Rate (ESR) [facility] Phone: Start: 01-12-2016 End: 01-12-2016 Ferritin *Ferritin [facility] Phone: Start: 01-12-2016 End: 01-12-2016 Lipid panel [AGGREGATE] *Lipid Profile [facility] Phone: Start: 01-12-2016 End: 01-12-2016 Thyroid stimulating hormone (TSH) *TSH [facility] Phone: Start: 01-12-2016 End: 01-12-2016 Urinalysis complete panel - Urine *UAC- Urinalysis, Complete w/ Micro [facility] Phone: Start: 11-13-2015 End: 11-13-2015 *BMP *BMP [facility] Phone: Start: 11-13-2015 End: 11-13-2015 BNP *Brain Natriuretic Peptide BNP [facility] Phone: Start: 11-13-2015 End: 11-13-2015 Follow Up Appt 3 months Follow Up Appt 3 months [facility] Phone: Start: 11-13-2015 End: 11-13-2015 Tte w/doppler, complete Echo Complete with Color Flow [facility] Phone: Start: 08-16-2015 End: 08-24-2015 Iron and Iron binding capacity panel - Serum or Plasma *IBC Iron & Total Iron Binding Capacity [facility] Phone: Start: 08-15-2015 End: 08-15-2015 CSM CSM [facility] Phone: Start: 08-15-2015 End: 08-15-2015 Follow Up Appt 3 months Follow Up Appt 3 months [facility] Phone: Start: 08-15-2015 End: 08-15-2015 Pulmonary Function Test - complete Pulmonary Function Test - complete [facility] Phone: Start: 08-15-2015 End: 08-15-2015 Pulmonary stress test/simple Pulmonary stress testing; simple (eg, 6-minute walk) [facility] Phone: Alanine aminotransfe rase [Enzymatic activity/volume] in Serum or Plasma [facility] Alanine aminotransfe rase [Enzymatic activity/volume] in Serum or Plasma [facility] Alanine aminotransfe rase [Enzymatic activity/volume] in Serum or Plasma [facility] Albumin [Mass/volume ] in Serum or Plasma [facility] Albumin [Mass/volume ] in Serum or Plasma [facility] Albumin [Mass/volume ] in Serum or Plasma [facility] Alkaline phosphatase [Enzymatic activity/volume] in Serum or Plasma [facility] Alkaline phosphatase [Enzymatic activity/volume] in Serum or Plasma [facility] Alkaline phosphatase [Enzymatic activity/volume] in Serum or Plasma [facility] Anion gap in Serum o r Plasma [facility] Anion gap in Serum o r Plasma [facility] Anion gap in Serum o r Plasma [facility] Bilirubin, total measurement [facility] Bilirubin, total measurement [facility] Bilirubin, total measurement [facility] Bilirubin.direct [Mass/volume] in Serum or Plasma [facility] Bilirubin.direct [Mass/volume] in Serum or Plasma [facility] Bilirubin.direct [Mass/volume] in Serum or Plasma [facility] BUN/Creatinine ratio [facility] BUN/Creatinine ratio [facility] BUN/Creatinine ratio [facility] Calcium [Mass/volume ] in Serum or Plasma [facility] Calcium [Mass/volume ] in Serum or Plasma [facility] Calcium [Mass/volume ] in Serum or Plasma [facility] Carbon dioxide, tota l [Moles/volume] in Central venous blood [facility] Carbon dioxide, tota l [Moles/volume] in Central venous blood [facility] Carbon dioxide, tota l [Moles/volume] in Central venous blood [facility] Creatinine [Mass/vol ume] in Serum or Plasma [facility] Creatinine [Mass/vol ume] in Serum or Plasma [facility] Creatinine [Mass/vol ume] in Serum or Plasma [facility] CT Chest [facility] Erythrocyte mean corpuscular volume determination [facility] Erythrocyte mean corpuscular volume determination [facility] Erythrocyte mean corpuscular volume determination [facility] Exercise tolerance test [facility] Glucose [Mass/volume ] in Serum or Plasma [facility] Glucose [Mass/volume ] in Serum or Plasma [facility] Glucose [Mass/volume ] in Serum or Plasma [facility] Hematocrit [Volume Fraction] of Blood [facility] Hematocrit [Volume Fraction] of Blood [facility] Hematocrit [Volume Fraction] of Blood [facility] Hemoglobin [Mass/vol ume] in Blood [facility] Hemoglobin [Mass/vol ume] in Blood [facility] Hemoglobin [Mass/vol ume] in Blood [facility] Leukocytes [#/volume ] in Blood [facility] Leukocytes [#/volume ] in Blood [facility] Leukocytes [#/volume ] in Blood [facility] Magnesium measurement [facility] Mean corpuscular hem oglobin concentration determination [facility] Mean corpuscular hem oglobin concentration determination [facility] Mean corpuscular hem oglobin concentration determination [facility] Mean corpuscular hem oglobin determination [facility] Mean corpuscular hem oglobin determination [facility] Mean corpuscular hem oglobin determination [facility] Measurement of renal function [facility] Measurement of renal function [facility] Measurement of renal function [facility] Neutrophil percent differential count [facility] Neutrophil percent differential count [facility] Neutrophil percent differential count [facility] Platelets [#/volume] in Blood [facility] Platelets [#/volume] in Blood [facility] Platelets [#/volume] in Blood [facility] Potassium measurement [facility] Potassium measurement [facility] Potassium measurement [facility] Red blood cell count [facility] Red blood cell count [facility] Red blood cell count [facility] Red cell distributio n width determination [facility] Red cell distributio n width determination [facility] Red cell distributio n width determination [facility] Serum chloride measurement [facility] Serum chloride measurement [facility] Serum chloride measurement [facility] Sodium measurement [facility] Sodium measurement [facility] Sodium measurement [facility] Total protein measurement [facility] Total protein measurement [facility] Total protein measurement [facility] Urea nitrogen [Mass/ volume] in Serum or Plasma [facility] Urea nitrogen [Mass/ volume] in Serum or Plasma [facility] Urea nitrogen [Mass/ volume] in Serum or Plasma [facility] Immunizations Immunization Date Immunization Notes Care Provider [facility] 05-17-2025 influenza, high dose seasonal, preservative-free Dr. Claudine Mallory DO Work Phone: [facility] 12-24-2020 tetanus toxoid, redu rachel diphtheria toxoid, and acellular pertussis vaccine, adsorbed [facility] Payers Date Payer Category Payer Self-pay [id number] 2024 Medicare [id number] 2020 Unknown [id number] 2016 Medicare [id number] 2015 Unknown [facility] [id number] 2011 Unknown [id number] Unknown [id number] 2.16.8 [id number] Unknown [id number] 2.16.8 [id number] Unknown [id number] 2.16.8 [id number] Unknown [id number] 2.16.8 [id number] Unknown [id number] 2.16.8 [id number] Unknown [id number] 2.16.8 [id number] Unknown [id number] 2.16.8 [id number] Unknown [id number] 2.16.8 [id number] Unknown [id number] 2.16.8 [id number] Unknown [id number] 2.16.8 [id number] Unknown [id number] 2.16.8 [id number] Unknown [id number] 2.16.8 [id number] Social History Date Type Detail Facility Start: 12-24-2020 End: 10-29-2023 Tobacco smoking status NHIS Unknown if ever smoked [facility] Start: 12-24-2020 Occasional [facility] Start: 12-24-2020 None [facility] Start: 09-10-2019 Alone [facility] Start: 12-24-2020 Cigarettes [facility] Start: 1955 Sex Assigned At Female [facility] Start: 07-02-2024 End: 05-17-2025 Tobacco smoking status NHIS Smokes tobacco daily (finding) [facility] Not [facility] Medical Equipment Procedure Code Equipment Code Equipment Origin al Text Equipment Identifier Dates ERCP (endoscopic retrograde cholangiopancreatog aurelio) STENT,ADVANIX PANC [id number] FDA Start: 05-18-2025 coil interlock vortix fibered IDC erickson chenega FDA Start: 12-25-2020 coil vortx diamo nd chenega fiber embolization coil FDA Start: 12-25-2024 coil interlock vortix fibered IDC erickson chenega FDA Start: 12-25-2020 coil vortx diamo nd chenega fiber embolization coil FDA Start: 12-25-2024 Goals Date Patient Goal Desired Activity /State Functional Status Date Assessment Result Facility 05-19-2025 Functional status Ambulates [facility] Work Phone: 05-18-2025 Functional status Ambulates [facility] Work Phone: Mental Status Date Assessment Result Facility 05-19-2025 Cognitive function Voice/Name [facility] Work Phone: 05-18-2025 Cognitive function Voice/Name [facility] Work Phone: 05-18-2025 Cognitive function Appropriate [facility] Work Phone: Clinical Notes 12-25-2020 to 05-19-2025 Note Date & Type Note Facility 05-19-2025 Discharge summary [facility] 05-19-2025 Note [facility] Medical Records Department [address] [place] [address] Discharge Summary 05/19/25 1510 MR#: [id number] Acct: [id number] Name: NORA GRANDE Rep #: [id number] : 1955 70 From: Yordan Newman MD PCP: Dr. Claudine Mallory DO Status:ADM IN [id number] Prov[facility] Date of Admission: 05/16/25 Date of Discharge: 05/19/25 Primary Care Physician: Dr. Claudine Mallory, DO Consultations 05/16/25 22:04 Consult: Gastroenterology Routine Consulting Provider: [facility] Reason for Consult: Cholelithiasis EMERGENT Consult: Yes MD Notified: Yes Date Notified: 05/16/25 Time Notified: 20:33 Method of Notification: ED Physician Initiated Reason For Visit: CHOLELITHIASIS Diagnosis Discharge Diagnosis (1) Cholelithiases: Status: Acute Code(s): K80.20 - Calculus of gallbladder without cholecystitis without obstruction Plan Patient is a 70-year-old female who presented with abdominal pain. Ultrasound of the gallbladder demonstrated cholelithiasis with no evidence of acute cholecystitis 1. Abdominal pain ??? Secondary to cholelithiasis. Ultrasound of the gallbladder did show Mild intra and extrahepatic biliary ductal dilatation, and prominence of the main pancreatic duct. No discrete obstructing mass or choledocholithiasis appreciated. Admitted to regular nursing floor for symptom management consult placed to GI patient seen by Dr. Tadeo and is for patient to undergo ERCP ??? 05/19/2025; patient underwent ERCP the day prior findings and procedures performed as below Impressions : - A single localized biliary stricture was found in the lower third of the main bile duct. The stricture was benign appearing, fibrotic and indeterminate. - The entire main bile duct was dilated, acquired. - Choledocholithiasis was found. Complete removal was accomplished by biliary sphincterotomy and balloon extraction. - One temporary stent was placed into the ventral pancreatic duct. - A biliary sphincterotomy was performed. - The biliary tree was swept. - Cells for cytology obtained in the lower third of the main duct. 2. Hypertension ??? Blood pressure controlled, home medications continued with dose adjustment as needed 3. Depression with anxiety ??? Patient is on duloxetine, olanzapine as well as clonazepam 4. Tobacco dependence ??? Counseled on cessation, offered nicotine patch for tobacco cravings 5. COPD ??? Currently not in exacerbation aerosol treatments as needed 6. Obstructive sleep apnea ??? Consistent use of PAP therapy encouraged 7 DVT prophylaxis ??? Subcu Lovenox Time spent in the patient's overall evaluation,decision-making process, review of diagnostic data, adjustment of management, discussion with other providers, nursing nursing and ancillary staff involved in patient's care documentation, 35 Minutes Medications at Discharge Home Medications clonazepam 1 mg tablet 1 mg PO QHS anxiety 10/18/16 multivitamin,[id number]-[id number] 27 mg-0.4 mg tablet 1 tab PO DAILY supplement 10/18/16 buspirone 15 mg tablet 15 mg PO BID mood 10/09/23 cyclobenzaprine 10 mg tablet 10 mg PO BID muscle spasm 10/09/23 olanzapine 15 mg tablet 15 mg PO QHS mood 10/09/23 duloxetine 30 mg capsule,delayed release 30 mg PO QDAY mood 10/29/23 duloxetine 60 mg capsule,delayed release 60 mg PO QDAY mood 10/29/23 losartan 50 mg tablet 50 mg PO QDAY bp 10/29/23 potassium chloride 20 mEq tablet,extended release(part/cryst) 20 meq PO TID supplement 10/29/23 albuterol sulfate 90 mcg/actuation aerosol inhaler 2 puff inhalation Q6H PRN shortness of breath or wheezing #18 grams 05/04/24 meclizine 25 mg tablet 50 mg PO BID vertigo 07/02/24 fluticasone fur. 200 mcg-umeclid 62.5 mcg-vilant 25 mcg inhalat.powder (Trelegy Ellipta) 1 inh inhalation DAILY sob #60 ea 11/22/24 sennosides 8.6 mg-docusate sodium 50 mg tablet (Stimulant Laxative Plus) 1 tab PO DAILY #30 tabs 05/19/25 Physical Exam Narrative GENERAL: cooperative HEENT: Atraumatic; normocephalic EYES; Anicteric, Normal Conjunctiva NECK; supple, normal thyroid, RESPIRATORY: Diminished to auscultation CARDIOVASCULAR: Regular S1 S2, GI: soft, normoactive bowel sounds, : No Renal angle tenderness; EXTREMITIES: No edema, no clubbing, MUSCULOSKELETAL: no muscle wasting NEURO: Awake; no lateralizing signs. SKIN: No Rash PSYCH; Flat affect Weight / BMI Weight Weight: 64.2 kg Body Mass Index (BMI) 25.9 ABG / Lab / Microbiology Data 05/19/25 05:21 05/19/25 05:21 Laboratory: Laboratory Results - last 24 hr 05/18/25 09:40: Urine Test Cancelled 05/19/25 05:21: WBC 8.7, RBC 4.12 L, Hgb 12.2, Hct 37.1, MCV 90.0, MCH 29.6, MCHC 32.9, RDW Std Deviation 46.6 H, RDW Coeff of Nikolas 14.1, Plt Count 318, MPV 10.8, Immature Gran % (Auto) 1.500 H, Neut (more content not included)... [facility] 05-19-2025 Hospital Discharge instructions Additional Instructions Date of Discharge: 05/19/25 [facility] Work Phone: 05-19-2025 Progress note Note Date/Time May 19, 2025 10:09am [facility] Medical Records Department [address] [place] [address] Progress Note - Hospitalist 05/19/25 1004 MR#: [id number] Acct: [id number] Name: NORA GRANDE Rep #:[id number] : 1955 70 From: Yordan Newman MD PCP: Dr. Claudine Mallory, DO Status:ADM IN Location: [place] [address] Reason for Visit Chief Complaint: Abdominal pain Subjective Subjective Patient seen underwent ERCP the day prior findings and recommendation as below. Patient seen still complains of being constipated Objective Data Objective Data Vital Signs: Vital Signs Temp Pulse Resp BP Pulse Ox O2 Del Method 98 F 78 18 135/75 H 98 Room Air 05/19/25 06:23 05/19/25 06:23 05/19/25 07:57 05/19/25 06:23 05/19/25 06:23 05/19/25 07:57 Oxygen Delivery Method Room Air Weight: 64.2 kg Body Mass Index (BMI) 25.9 Intake & Output: Intake and Output for Last 24 Hours 05/17/25 05/18/25 05/19/25 23:59 23:59 23:59 Intake Total 3441.67 / 3441.67 2527.25 / 2527.25 1125 / 1125 Output Total 2 / 2 Balance 3441.67 / 3441.67 2525.25 / 2525.25 1125 / 1125 Lab / Micro Data 05/19/25 05:21 05/19/25 05:21 Labs: Laboratory Results - last 24 hr 05/18/25 09:40: Urine Test Cancelled 05/19/25 05:21: WBC 8.7, RBC 4.12 L, Hgb 12.2, Hct 37.1, MCV 90.0, MCH 29.6, MCHC 32.9, RDW Std Deviation 46.6 H, RDW Coeff of Nikolas 14.1, Plt Count 318, MPV 10.8, Immature Gran % (Auto) 1.500 H, Neut % (Auto) 65.2, Lymph % (Auto) 17.3 L,Jackson % (Auto) 14.9 H, Eos % (Auto) 0.6, Baso % (Auto) 0.5, Absolute Neuts (auto)5.7, Absolute Lymphs (auto) 1.50, Nucleated RBC % 0, Sodium 139, Potassium 4.1, Chloride 109 H, Carbon Dioxide 19.1 L, Anion Gap 11, BUN 9, Creatinine 1.00, Estim Creat Clear Calc 46.06 L, Est GFR (MDRD) Non-Af 61, BUN/Creatinine Ratio 8.7 L, Glucose 201 H, Calcium 8.5, Phosphorus 3.0, Magnesium 2.3 H, Total Bilirubin 0.30, Direct Bilirubin 0.11, AST 16, ALT 12, Alkaline Phosphatase 59, Total Protein 5.6 L, Albumin 3.1 L, Globulin 2.5 Micro: Microbiology 05/16/25 15:40 Stool Stool Occult Blood (MARVIN) - Final Occult Blood Positive Radiography Diagnostic Testing: Radiology Impression C-Arm Fluoroscopy 05/18/25 12:46 IMPRESSION: Fluoroscopy was performed for ERCP. 9 spot images were also obtained. Reading Location: [address] Endo Retro Cholangiopancreatogram 05/18/25 12:46 IMPRESSION: Fluoroscopy was performed for ERCP. 9 spot images were also obtained. Reading Location: [address] Physical Exam Narrative GENERAL: cooperative HEENT: Atraumatic; normocephalic EYES; Anicteric, Normal Conjunctiva NECK; supple, normal thyroid, RESPIRATORY: Diminished to auscultation CARDIOVASCULAR: Regular S1 S2, GI: soft, normoactive bowel sounds, : No Renal angle tenderness; EXTREMITIES: No edema, no clubbing, MUSCULOSKELETAL: no muscle wasting NEURO: Awake; no lateralizing signs. SKIN: No Rash PSYCH; Flat affect Assessment & Plan Assessment/Plan (1) Cholelithiases: PLAN: Plan Patient is a 70-year-old female who presented with abdominal pain. Ultrasound of the gallbladder demonstrated cholelithiasis with no evidence of acute cholecystitis 1. Abdominal pain ? Secondary to cholelithiasis. Ultrasound of the gallbladder did show Mild intra and extrahepatic biliary ductal dilatation, and prominence of the main pancreatic duct. No discrete obstructing mass or choledocholithiasis appreciated. Admitted to regular nursing floor for symptom management consult placed to GI patient seen by Dr. Tadeo and is for patient to undergo ERCP ? 05/19/2025; patient underwent ERCP the day prior findings and procedures performed as below Impressions : - A single localized biliary stricture was found in the lower third of the main bile duct. The stricture was benign appearing, fibrotic and indeterminate. - The entire main bile duct was dilated, acquired. - Choledocholithiasis was found. Complete removal was accomplished by biliary sphincterotomy and balloon extraction. - One temporary stent was placed into the ventral pancreatic duct. - A biliary sphincterotomy was performed. - The biliary tree was swept. - Cells for cytology obtained in the lower third of the main duct. 2. Hypertension ? Blood pressure controlled, home medications continued with dose adjustment as needed 3. Depression with anxiety ? Patient is on duloxetine, olanzapine as well as clonazepam 4. Tobacco dependence ? Counseled on cessation, offered nicotine patch for tobacco cravings 5. COPD ? Currently not in exacerbation aerosol treatments as needed 6. Obstructive sleep apnea ? Consistent use of PAP therapy encouraged 7 DVT prophylaxis ? Subcu Lovenox Time spent in the patient's overall evaluation,decision-making process, review of diagnostic data, adjustment of management, discussion with other providers, nursing nursing and ancillary staff involved in patient's care documentation, 35 Minutes Charges/Coding Visit Charges Inpatient E&M: 41887 Subs Hosp L2 05/19/25 1009 <Electronically signed by Yordan Newman MD> Cosigner Signature (if applicable): CC: ~ Signed [facility] Work Phone: 1(153) 920-499110-02-2025 Progress note [facility] Medical Records Department [address] [place] [address] Progress Note - Hospitalist 05/19/25 1004 MR#: [id number] Acct: [id number] Name: NORA GRANDE Rep #:[id number] : 1955 70 From: Yordan Newman MD PCP: Dr. Claudine Mallory, DO Status:ADM IN Location: [place] [address] Reason for Visit Chief Complaint: Abdominal pain Subjective Subjective Patient seen underwent ERCP the day prior findings and recommendation as below. Patient seen still complains of being constipated Objective Data Objective Data Vital Signs: Vital Signs Temp Pulse Resp BP Pulse Ox O2 Del Method 98 F 78 18 135/75 H 98 Room Air 05/19/25 06:23 05/19/25 06:23 05/19/25 07:57 05/19/25 06:23 05/19/25 06:23 05/19/25 07:57 Oxygen Delivery Method Room Air Weight: 64.2 kg Body Mass Index (BMI) 25.9 Intake & Output: Intake and Output for Last 24 Hours 05/17/25 05/18/25 05/19/25 23:59 23:59 23:59 Intake Total 3441.67 / 3441.67 2527.25 / 2527.25 1125 / 1125 Output Total 2 / Balance 3441.67 / 3441.67 2525.25 / 2525.25 1125 / 1125 Lab / Micro Data 05/19/25 05:21 05/19/25 05:21 Labs: Laboratory Results - last 24 hr 05/18/25 09:40: Urine Test Cancelled 05/19/25 05:21: WBC 8.7, RBC 4.12 L, Hgb 12.2, Hct 37.1, MCV 90.0, MCH 29.6, MCHC 32.9, RDW Std Deviation 46.6 H, RDW Coeff of Nikolas 14.1, Plt Count 318, MPV 10.8, Immature Gran % (Auto) 1.500 H, Neut % (Auto) 65.2, Lymph % (Auto) 17.3 L,Jackson % (Auto) 14.9 H, Eos % (Auto) 0.6, Baso % (Auto) 0.5, Absolute Neuts (auto)5.7, Absolute Lymphs (auto) 1.50, Nucleated RBC % 0, Sodium 139, Potassium 4.1, Chloride 109 H, Carbon Dioxide 19.1 L, Anion Gap 11, BUN 9, Creatinine 1.00, Estim Creat Clear Calc 46.06 L, Est GFR (MDRD) Non-Af 61, BUN/Creatinine Ratio 8.7 L, Glucose 201 H, Calcium 8.5, Phosphorus 3.0, Magnesium 2.3 H, Total Bilirubin 0.30, Direct Bilirubin 0.11, AST 16, ALT 12, Alkaline Phosphatase 59, Total Protein 5.6 L, Albumin 3.1 L, Globulin 2.5 Micro: Microbiology 05/16/25 15:40 Stool Stool Occult Blood (MARVIN) - Final Occult Blood Positive Radiography Diagnostic Testing: Radiology Impression C-Arm Fluoroscopy 05/18/25 12:46 IMPRESSION: Fluoroscopy was performed for ERCP. 9 spot images were also obtained. Reading Location: [address] Endo Retro Cholangiopancreatogram 05/18/25 12:46 IMPRESSION: Fluoroscopy was performed for ERCP. 9 spot images were also obtained. Reading Location: [address] Physical Exam Narrative GENERAL: cooperative HEENT: Atraumatic; normocephalic EYES; Anicteric, Normal Conjunctiva NECK; supple, normal thyroid, RESPIRATORY: Diminished to auscultation CARDIOVASCULAR: Regular S1 S2, GI: soft, normoactive bowel sounds, : No Renal angle tenderness; EXTREMITIES: No edema, no clubbing, MUSCULOSKELETAL: no muscle wasting NEURO: Awake; no lateralizing signs. SKIN: No Rash PSYCH; Flat affect Assessment & Plan Assessment/Plan (1) Cholelithiases: PLAN: Plan Patient is a 70-year-old female who presented with abdominal pain. Ultrasound of the gallbladder demonstrated cholelithiasis with no evidence of acute cholecystitis 1. Abdominal pain ? Secondary to cholelithiasis. Ultrasound of the gallbladder did show Mild intra and extrahepatic biliary ductal dilatation, and prominence of the main pancreatic duct. No discrete obstructing mass or choledocholithiasis appreciated. Admitted to regular nursing floor for symptom management consult placed to GI patient seen by Dr. Tadeo and is for patient to undergo ERCP ? 05/19/2025; patient underwent ERCP the day prior findings and procedures performed as below Impressions : - A single localized biliary stricture was found in the lower third of the main bile duct. The stricture was benign appearing, fibrotic and indeterminate. - The entire main bile duct was dilated, acquired. - Choledocholithiasis was found. Complete removal was accomplished by biliary sphincterotomy and balloon extraction. - One temporary stent was placed into the ventral pancreatic duct. - A biliary sphincterotomy was performed. - The biliary tree was swept. - Cells for cytology obtained in the lower third of the main duct. 2. Hypertension ? Blood pressure controlled, home medications continued with dose adjustment as needed 3. Depression with anxiety ? Patient is on duloxetine, olanzapine as well as clonazepam 4. Tobacco dependence ? Counseled on cessation, offered nicotine patch for tobacco cravings 5. COPD ? Currently not in exacerbation aerosol treatments as needed 6. Obstructive sleep apnea ? Consistent use of PAP therapy encouraged 7 DVT prophylaxis ? Subcu Lovenox Time spent in the patient's overall evaluation,decision-making process, review of diagnostic data, adjustment of management, discussion with other providers, nursing nursing and ancillary staff involved in patient's care documentation, 35 Minutes Charges/Coding Visit Charges Inpatient E&M: 92190 Subs Hosp L2 05/19/25 1009 Cosigner Signature (if applicable): CC: ~ Signed [facility]10-01-2025 Consult note Author Jorge Og [facility] Note Date/Time May 18, 2025 3: 13pm [facility] Medical Records Department [address] [place] [address] Anesthesia Postop Eval II 05/18/25 1513 MR#: [id number] Acct: [id number] Name: NORA GRANDE Rep #:[id number] : 1955 70 From: Jorge Peguero PCP: Dr. Claudine Mallory, DO Status:ADM IN Y Race: C Location: [place] [address] Anesthesia Postop Eval I Sum Postop Eval Completion status Anesthesia document: Postop Eval 1 completed: Yes Anesthesia Postop Eval I Summary Anesthesia Postop Eval I Summary: Anesthesia Postop Eval I: Assessment Summary Airway patent Yes 05/18/25 14:06 [email or web address] Spontaneous unlabored Yes 05/18/25 14:06 [email or web address] respirations Mental status Asleep 05/18/25 14:06 [email or web address] nausea No 05/18/25 14:06 [email or web address] Vomiting No 05/18/25 14:06 [email or web address] Anesthesia Postop Eval I: Fluid Summary Crystalloid volume administer 400 05/18/25 14:06 [email or web address] (ml) Colloids volume administered ( ml) Blood Product volume administered (ml) Total IV fluid infused 400 05/18/25 14:06 [email or web address] Anesthesia Postop Eval I: Summary Notes Anesthesia Complication No 05/18/25 14:06 [email or web address] Anesthesia Complication Comment: Post-operative progress note Anesthesia: Postop Eval II Evaluation Mental status: Awake and Calm Pain Level: 0 nausea: No Vomiting: No Complications Anesthesia Complication: No 05/18/25 1513 <Electronically signed by Jorge Og MD> Date _ Jorge Og MD Cosigner Signature: Date CC: ~ Signed [facility] Work Phone: 1(488) 708-260010-01-2025 Consult note Author Connor Tadeo [facility] Note Date/Time May 18, 2025 2: 17pm [facility] Medical Records Department [address] [place] [address] Consultation - GI 05/17/251948 MR#: [id number] Acct: [id number] Name: NORA GRANDE Rep #:[id number] : 1955 70 From: Connor Tadeo DO PCP: Dr. Claudine Mallory DO Status:ADM IN Location: [place] [address] HPI Consult Data Date of Consult: 05/17/25 HPI Narrative Reason for Consultation: abdominal pain HPI Narrative: NORA GRANDE, is a 70 F who presented to the emergency department for abdominal pain. Patient has a past medical history of COPD, hypertension, CHF,fibromyalgia. Patient states that on she started to have left sided abdominal pain. She has a history of chronic constipation. Reports that on Friday she had a small hard bowel movement that had dark blood in it. She endorses some nausea with no vomiting. States the abdominal pain continuedyesterday and today. Denies any fever, chills, chest pain, shortness of breath,dysuria or hematuria. Denies ever having abdominal pain like this in the past. She does not take anything for her symptoms. No BM yesterday or today. She is not on any OAC. Denies any alcohol or NSAID use. CT/Abdomen/Pelvis: Interval development of moderate right intrahepatic ductal dilatation of uncertain etiology. No definitive obstructing mass or stone in the right hepatic duct. Left biliaryintrahepatic ducts normal. Cholelithiasis. No definitive choledocholithiasis. US/Gallbladder: Cholelithiasis. No evidence for acute cholecystitis. Mild intra and extrahepatic biliary ductal dilatation, and prominence of the main pancreatic duct. No discrete obstructing mass or choledocholithiasis appreciated. MRCP may be helpful. Mild diffuse hepatic steatosis. Small benign-appearing hepatic cysts MRCP is pending COUNT INCLUDES [facility] Medical History Hx of emotional problems Hormone deficiency Back problem HTN (hypertension) History of skin cancer CHF (congestive heart failure) Fibromyalgia Tobacco use Home Medications ?Medication ?Instructions ?Recorded ?Last Taken ?Type clonazepam 1 mg tablet 1 mg PO QHS anxiety 10/18/16 Unknown History multivitamin,wz-ifba-azwjyxcs 27 1 tab PO DAILY supple ment 10/18/16 Unknown History mg-0.4 mg tablet buspirone 15 mg tablet 15 mg PO BID mood 10/09/23 U nknown History cyclobenzaprine 10 mg tablet 10 mg PO BID muscle spasm 10/09/23 Unknown History olanzapine 15 mg tablet 15 mg PO QHS mood 10/09/23 U nknown History duloxetine 30 mg capsule,delayed 30 mg PO QDAY mood Unknown History release duloxetine 60 mg capsule,delayed 60 mg PO QDAY mood Unknown History release losartan 50 mg tablet 50 mg PO QDAY bp 10/29/23 Un known History potassium chloride 20 mEq 20 meq PO TID supplement Unknown History tablet,extended release(part/cryst) albuterol sulfate 90 mcg/actuation 2 puff inhalation Q 6H PRN 05/04/24 Unknown Rx aerosol inhaler shortness of breath or wheez ing #18 grams meclizine 25 mg tablet 50 mg PO BID vertigo 4 Unknown History fluticasone fur. 200 mcg-umeclid 1 inh inhalation MYRON Y sob #60 ea 11/22/24 Unknown Rx 62.5 mcg-vilant 25 mcg inhalat.powder (Trelegy Ellipta) Allergy/AdvReac Type Severity Reaction Status Date / Time codeine Allergy Unknown Verified 05/16/25 13:56 ciprofloxacin (From Cipro) AdvReac Vomiting Verified 05/16/25 13:56 Family History Sister Diabetes Brother Diabetes Heart disease Father Heart disease Surgical History History of left hip replacement Hx of hysterectomy History of carpal tunnel release of both wrists Social History household members: none Smoking Status: Current every day smoker tobacco type: cigarettes and e- cigarettes Tobacco: How many years used: 40 Electronic Cigarette Use: with nicotine how long ago did patient quit smokin quit smoking cigarettes, 1ppd vaping currently second hand exposure: Yes Lab / Micro Data 05/17/25 03:15 05/17/25 03:15 Labs: Laboratory Results - last 24 hr 05/17/25 03:15: WBC 11.0, RBC 4.57, Hgb 13.4, Hct 39.3, MCV 86.0, MCH 29.3, MCHC34.1, RDW Std Deviation 42.9, RDW Coeff of Nikolas 13.7, Plt Count 279, MPV 10.3, Immature Gran % (Auto) 0.600, Neut % (Auto) 57.9, Lymph % (Auto) 25.6, Jackson % (Auto) 13.6 H, Eos % (Auto) 1.5, Baso % (Auto) 0.8, Absolute Neuts (auto) 6.4, Absolute Lymphs (auto) 2.82, Nucleated RBC % 0, Sodium 134, Potassium 3.5, Chloride 100, Carbon Dioxide 21.0, Anion Gap 13, BUN 13, Creatinine 1.03, Estim Creat Clear Calc 44.72 L, Est GFR (MDRD) Non-Af 58 L, BUN/Creatinine Ratio 12.8,Glucose 86, Calcium 8.4, Total Bilirubin 0.83, AST 16, ALT 11, Alkaline Phosphatase 82, Total Protein 6.2, Albumin 3.4, Globulin 2.8, Albumin/Globulin Ratio 1.2 Micro: Microbiology 05/16/25 15:40 Stool Stool Occult Blood (MARVIN) - Final Occult Blood Positive Assessment & Plan Assessment/Plan (1) Abnormal finding on imaging of liver: PLAN: 70-year-old female with an incidental finding of a double duct sign (mild dilation of both the biliary and pancreatic ducts) and an intact gallbladder. The absence of a visible obstructing mass, choledocholithiasis, and normal LFTs makes this a challenging diagnosis. Differential diagnoses include: * Benign etiology:?In older patients, mild dilation can sometimes be benign and not require intervention. Other possibilities include chronic pancreatitis or a periampullary diverticulum. * Malignancy:?The double duct sign, especially when found with a prominent pancreatic duct, suggests the possibility of pancreatic or ampullary malignancy, even without a visible mass on initial imaging. This warrants further investigation. * Post-cholecystectomy changes:?The patient's gallbladder is intact, so this is not a consideration. However, dilation in an older patient with a prior cholecystectomy is a known phenomenon. Plan * Further workup:?The imaging results warrant a higher-level investigation to rule out a subtle or developing malignancy. * MRCP (Magnetic Resonance Cholangiopancreatography):?Await MRCP * EUS (Endoscopic Ultrasound):?This procedure can provide high-resolution imaging of the pancreatic head, ampulla, and bile ducts, and allows for tissue sampling if a lesion is identified. Charges/Coding Visit Charges Inpatient E&M: 68380 Init Hosp L3 05/18/25 1417 <Electronically signed by Connor Tadeo DO> Cosigner Signature (if applicable): CC: Dr. Claudine Mallory DO~ Signed [facility] Work Phone: 1(421) 479-630310-01-2025 Consult note Author Carlo Arias [facility] Note Date/Time May 18, 2025 2: 06pm [facility] Medical Records Department [address] [place] [address] Anesthesia Postop Eval I 05/18/25 1405 MR#: [id number] Acct: [id number] Name: NORA GRANDE Rep #:[id number] : 1955 70 From: Carlo Arias PCP: Dr. Claudine Mallory DO Status:ADM IN Y Race: C Location: [place] [address] Anesthesia: Postop Eval I Current Vital Signs Temperature: 98.7 F Pulse Rate: 88 Blood Pressure: 127/79 Respiratory Rate: 16 Pulse Ox: 97 Oxygen Delivery Method: Room Air Assessment Airway patent: Yes Spontaneous unlabored respirations: Yes Mental status: Asleep nausea: No Vomiting: No Anesthesia Complication: No Fluid Hydration Crystalloid volume administer (ml): 400 Total IV fluid infused: 400 Progress Note Anesthesia document: Postop Eval 1 completed: Yes 05/18/25 1406 <Electronically signed by Carlo Arias > Date _ Carlo Torresigndmitry Signature: Date CC: ~ Signed [facility] Work Phone: 1(747) 995-588410-01-2025 Consult note [facility] Medical Records Department [address] [place] [address] Anesthesia Postop Eval II 05/18/25 1513 MR#: [id number] Acct: [id number] Name: NORA GRANDE Rep #:[id number] : 1955 70 From: Jorge Peguero PCP: Dr. Claudine Mallory, DO Status:ADM IN Y Race: C Location: [place] [address] Anesthesia Postop Eval I Sum Postop Eval Completion status Anesthesia document: Postop Eval 1 completed: Yes Anesthesia Postop Eval I Summary Anesthesia Postop Eval I Summary: Anesthesia Postop Eval I: Assessment Summary Airway patent Yes 05/18/25 14:06 [email or web address] Spontaneous unlabored Yes 05/18/25 14:06 [email or web address] respirations Mental status Asleep 05/18/25 14:06 [email or web address] nausea No 05/18/25 14:06 [email or web address] Vomiting No 05/18/25 14:06 [email or web address] Anesthesia Postop Eval I: Fluid Summary Crystalloid volume administer 400 05/18/25 14:06 [email or web address] (ml) Colloids volume administered ( ml) Blood Product volume administered (ml) Total IV fluid infused 400 05/18/25 14:06 [email or web address] Anesthesia Postop Eval I: Summary Notes Anesthesia Complication No 05/18/25 14:06 [email or web address] Anesthesia Complication Comment: Post-operative progress note Anesthesia: Postop Eval II Evaluation Mental status: Awake and Calm Pain Level: 0 nausea: No Vomiting: No Complications Anesthesia Complication: No 05/18/25 1513 MD> Date _ Jorge Og MD Cosigner Signature: Date CC: ~ Signed [facility]10-01-2025 Consult note Author Jorge Og [facility] Note Date/Time May 18, 2025 12 :46pm [facility] Medical Records Department [address] [place] [address] Pre-Anesthesia Evaluation 05/18/25 1238 MR#: [id number] Acct: [id number] Name: NORA GRANDE Rep #:[id number] : 1955 70 From: Jorge Peguero PCP: Dr. Claudine Mallory, DO Status:ADM IN Y Race: C Location: [place] [address] ASA Classification* ASA Classification ASA Classification: 3 Assessment & Plan Anesthesia* Anesthesia Assessment Anesthesia Assessment: Discussed sedation and/or anesthesia options, risks, benefits, and alternatives with patient/parents/legal guardian/POA. Questions invited. The patient/parents/legal guardian/POA seems to understand and agrees to proceedwith anesthesia plan. Reviewed the physical assessment, medical history, allergy history and patient home medications list prior to surgery/procedure/anesthetic and documented any changes. Performed airway and anesthesia risk assessments. Anesthesia Type Anesthesia Type: General History Source History Obtained from:: Patient and Chart Anesthesia Focused Assessment* Temperature: 98.1 F Pulse Rate: 80 Blood Pressure: 134/76 Respiratory Rate: 16 Pulse Ox: 95 Oxygen Delivery Method: Room Air Airway Assessment Mouth opens: >3 cm Mallampati Score: III Teeth Condition: Chipped/Broken and Missing Labs Anesthesia Preop lab: CBC WBC, (4.4-11.0) 11.0 K/mm3 05/17/25, 03:15 RBC, (4.2-5.4) 4.57 M/mm3 05/17/25, 03:15 Hgb, (12.0-15.0) 13.4 g/dL 05/17/25, 03:15 Hct, (37-47) 39.3 % 05/17/25, 03:15 Plt Count, (150-450) 279 K/mm3 05/17/25, 03:15 CHEMISTRY Potassium, (3.3-5.1) 3.5 mmol/L 05/17/25, 03:15 Sodium, (133-145) 134 mmol/L 05/17/25, 03:15 Magnesium, (1.6-2.6) 2.1 mg/dL 10/21/19, 15:09 BUN, (4-19) 13 mg/dL 05/17/25, 03:15 Creatinine, (0.70-1.20) 1.03 mg/dL 05/17/25, 03:15 Glucose, (70-99) 86 mg/dL 05/17/25, 03:15 TSH, (0.358-3.74) 2.47 uIU/mL 10/21/19, 15:09 COAG Pre-Assessment Diagnosis/Proposed Procedure Planned Operative Procedure(s): ERCP Anesthesia History Anesthesia History - credit card specialist: Anesthesia History - credit card specialist Hx Hospitalization Yes 09/10/19 13:04 Any Problems With Anesthesia No 05/18/25 01:02 Cholinesterase deficiency No 05/18/25 01:02 You/Your Family Experience No 05/18/25 01:02 fever (hyperthermia) with Relationship Recent Exposure to Contagious No 05/18/25 01:02 Disease Does patient have nerve No 05/18/25 01:02 stimulator Patient instructed to have No 05/18/25 01:02 device shut off --Does patient have Pacemaker No 05/17/25 22:42 or ICD? When Was Last Pacemaker Check QUESTION #4 FULL TEXT: You/Your Family Experience fever (hyperthermia) with Anesthesia Last Oral Intake Last Oral intake: Last Oral Intake NPO since :05/17/25 22:42 Meds taken in AM with sips of No 05/17/25 22:42 water? Meds patient instructed to take am of surgery PONV PONV - credit card specialist: PONV - credit card specialist Female HX of Motion Sickness HX of N/V After Surgery Non-Smoker Duration of Surgery greater than 60 minutes Number of Risk Factors PONV Score Height & Weight Height & Weight: Anesthesia: Height & Weight Height 5 ft 2 in 05/17/25 22:42 Weight: 64.2 kg 05/17/25 22:42 Body Mass Index (BMI) 25.9 05/17/25 22:42 Respiratory Assessment Respiratory Assessment - credit card specialist: Respiratory Tract Infection Hx - credit card specialist Hx Respiratory Tract Infection No 05/18/25 01:02 STOP Sleep Apnea STOP Sleep Apnea - credit card specialist: STOP Sleep Apnea - credit card specialist Hx Hypertension Yes 05/16/25 22:11 Hx Sleep Apnea No 05/16/25 22:11 CPAP BIPAP Do you snore loudly (louder No 05/16/25 22:11 than talking or can be heard Do you often feel tired/ No 05/16/25 22:11 fatigued/ sleepy during daytime? Has anyone observed you stop No 05/16/25 22:11 breathing during sleep? STOP Results Negative 05/16/25 22:11 QUESTION #5 FULL TEXT : Do you snore loudly (louder than talking or can be heard through closed doors)? 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 Specify any problems Hx of Preganancy in last 3 No 05/16/25 22:11 Months Nurse Filling Out Transfusion DREDICK 05/16/25 22:11 & Questions: Date: 05/16/25 05/16/25 22:11 Time: 22:11 05/16/25 22:11 Patient unable to answer at this time (ie. confused, unrespo /Reproduction History /Reproductive History - credit card specialist: /Reproductive Hx- credit card specialist Hx Now No 05/18/25 01:02 Gestational Age (in weeks): EDC: Hx Hx Para Hx Section SAB No 05/18/25 01:02 Active Medications Active Medications: Current Medications Generic Name Dose Route Start Last Admin Trade Name Freq PRN Reason Stop Dose Admin Albuterol Sulfate 2.5 mg 05/16/25 22:04 Albuterol 2.5 Mg/3 Ml Vial.Neb. INHALATION Q4H PRN PRN shortness of breath/wheezing Albuterol/Ipratropium 3 ml 05/17/25 00:00 05/17/25 19:32 Ipratropium/Albuterol Sulfate 3 Ml Ampul.Neb INHALATION 3 ml Q6HWA.RT JEROD Administration Budesonide 0.5 mg 05/17/25 06:00 05/17/25 19:32 Budesonide Respules 0.5 Mg/2 Ml Ampul.Neb. INHALATION 0.5 mg Q12H.RT JEROD Administration Buspirone HCl 15 mg 05/17/25 22:00 05/18/25 11:09 Buspirone 15 Mg Tablet PO Not Given BID JEROD Clonazepam 1 mg 05/17/25 22:00 05/17/25 21:22 Clonazepam 1 Mg Tablet PO 1 mg QHS JEROD Administration Duloxetine HCl 30 mg 05/18/25 10:00 05/18/25 11:09 Duloxetine Hcl 30 Mg Capsule PO Not Given DAILY JEROD Duloxetine HCl 60 mg 05/18/25 10:00 05/18/25 11:10 Duloxetine Hcl 60 Mg Capsule PO Not Given DAILY JEROD Enoxaparin Sodium 40 mg 05/17/25 10:00 05/18/25 11:09 Enoxaparin 40 Mg/0.4 Ml Syringe SC Not Given DAILY JEROD Hydromorphone HCl 0.2 mg 05/16/25 22:35 05/18/25 01:06 Hydromorphone Inj 0.2 Mg/Ml Syringe IV 0.2 mg Q4H PRN PRN Administration Pain Score 6-10 Sodium Chloride 1,000 mls @ 125 mls/hr 05/16/25 22:04 05/18/25 09:08 IV 125 mls/hr .Q8H JEROD Administration Sodium Chloride 250 mls @ 15 mls/hr 05/16/25 22:05 IV .[id number] PRN Saline Flush Sodium Chloride 250 mls @ 15 mls/hr 05/16/25 22:05 IV .[id number] PRN Additional IVPB Infusion Ketorolac Tromethamine 15 mg 05/16/25 22:35 05/18/25 05:19 Ketorolac 15 Mg/Ml Vial IV 05/21/25 22:37 15 mg Q6H PRN PRN Administration Pain Score 1-5 Losartan Potassium 50 mg 05/18/25 10:00 05/18/25 11:09 Losartan Potassium 50 Mg Tablet PO Not Given DAILY JEROD Protocol Olanzapine 15 mg 05/17/25 22:00 05/17/25 21:22 Olanzapine 5 Mg/Tab Tab.Rapdis PO 15 mg QHS JEROD Administration Ondansetron HCl 4 mg 05/16/25 22:04 Ondansetron 4 Mg/2 Ml Vial IV Q8H PRN PRN NAUSEA/VOMITING Sodium Chloride 10 - 40 ml 05/16/25 22:05 05/18/25 01:06 0.9% Saline Lock 10 Ml Syringe IV 10 ml UD PRN Administration SALINE FLUSH PFSH Medical History Hx of emotional problems Hormone deficiency Back problem HTN (hypertension) History of skin cancer CHF (congestive heart failure) Fibromyalgia Tobacco use Home Medications ?Medication ?Instructions ?Recorded ?Last Taken ?Type clonazepam 1 mg tablet 1 mg PO QHS anxiety 10/18/16 Unknown History multivitamin,dk-vaqj-odfkhchr 27 1 tab PO DAILY supple ment 10/18/16 Unknown History mg-0.4 mg tablet buspirone 15 mg tablet 15 mg PO BID mood 10/09/23 U nknown History cyclobenzaprine 10 mg tablet 10 mg PO BID muscle spasm 10/09/23 Unknown History olanzapine 15 mg tablet 15 mg PO QHS mood 10/09/23 U nknown History duloxetine 30 mg capsule,delayed 30 mg PO QDAY mood Unknown History release duloxetine 60 mg capsule,delayed 60 mg PO QDAY mood Unknown History release losartan 50 mg tablet 50 mg PO QDAY bp 10/29/23 Un known History potassium chloride 20 mEq 20 meq PO TID supplement Unknown History tablet,extended release(part/cryst) albuterol sulfate 90 mcg/actuation 2 puff inhalation Q 6H PRN 05/04/24 Unknown Rx aerosol inhaler shortness of breath or wheez ing #18 grams meclizine 25 mg tablet 50 mg PO BID vertigo 4 Unknown History fluticasone fur. 200 mcg-umeclid 1 inh inhalation MYRON Y sob #60 ea 11/22/24 Unknown Rx 62.5 mcg-vilant 25 mcg inhalat.powder (Trelegy Ellipta) Allergy/AdvReac Type Severity Reaction Status Date / Time codeine Allergy Unknown Verified 05/16/25 13:56 ciprofloxacin (From Cipro) AdvReac Vomiting Verified 05/16/25 13:56 Family History Sister Diabetes Brother Diabetes Heart disease Father Heart disease Surgical History History of left hip replacement Hx of hysterectomy History of carpal tunnel release of both wrists Social History household members: none Smoking Status: Current every day smoker tobacco type: cigarettes and e- cigarettes Tobacco: How many years used: 40 Electronic Cigarette Use: with nicotine how long ago did patient quit smokin quit smoking cigarettes, 1ppd vaping currently second hand exposure: Yes Prior Cardiac Testing/Procedures Prior Cardiac Testing/Procedures: Echocardiogram (60% Diastolic dysfunction ) Review of Systems (Anesthesia) ROS Narrative System reviewed and no additional complaints, except as documented. Physical Exam Const alert, oriented x3 and average body habitus Resp normal respiratory effort and normal air movement Auscultation: clear to auscultation bilaterally Cardio regular rate and regular rhythm Neuro oriented x3 and moves all extremities 05/18/25 1246 <Electronically signed by Jorge Og MD> Date _ Jorge Sanchez Signature: Date CC: ~ Signed [facility] Work Phone: [phone]) 875-556510-01-2025 Consult note [facility] Medical Records Department [address] [place] [address] Consultation - GI 05/17/251948 MR#: [id number] Acct: [id number] Name: NORA GRANDE Rep #:[id number] : 1955 70 From: Connor Friend DO PCP: Dr. Claudine Mallory DO Status:ADM IN Location: [place] [id number] HPI Consult Data Date of Consult: 05/17/25 HPI Narrative Reason for Consultation: abdominal pain HPI Narrative: NORA GRANDE, is a 70 F who presented to the emergency department for abdominal pain. Patient has a past medical history of COPD, hypertension, CHF,fibromyalgia. Patient states that on she started to have left sided abdominal pain. She has a history of chronic constipation. Reports thaton Friday she had a small hard bowel movement that had dark blood in it. She endorses some nausea with no vomiting. States the abdominal pain continuedyesterday and today. Denies any fever, chills, chest pain, shortness of breath,dysuria or hematuria. Denies ever having abdominal pain like this in the past. She does not take anything for her symptoms. No BM yesterday ortoday. She is not on any OAC. Denies any alcohol or NSAID use. CT/Abdomen/Pelvis: Interval development of moderate right intrahepatic ductal dilatation of uncertain etiology. No definitive obstructing mass or stone in the right hepatic duct. Left biliaryintrahepatic ducts normal. Cholelithiasis. No definitive choledocholithiasis. US/Gallbladder: Cholelithiasis. No evidence for acute cholecystitis. Mild intra and extrahepatic biliary ductal dilatation, and prominence of the main pancreatic duct. No discrete obstructing mass or choledocholithiasis appreciated. MRCP may be helpful. Mild diffuse hepatic steatosis. Small benign-appearing hepatic cysts MRCP is pending COUNT INCLUDES [facility] Medical History Hx of emotional problems Hormone deficiency Back problem HTN (hypertension) History of skin cancer CHF (congestive heart failure) Fibromyalgia Tobacco use Home Medications ?Medication ?Instructions ?Recorded ?Last Taken ?Type clonazepam 1 mg tablet 1 mg PO QHS anxiety 10/18/16 Unknown History multivitamin,sd-hhwa-skscflch 27 1 tab PO DAILY supple ment 10/18/16 Unknown History mg-0.4 mg tablet buspirone 15 mg tablet 15 mg PO BID mood 10/09/23 U nknown History cyclobenzaprine 10 mg tablet 10 mg PO BID muscle spasm 10/09/23 Unknown History olanzapine 15 mg tablet 15 mg PO QHS mood 10/09/23 U nknown History duloxetine 30 mg capsule,delayed 30 mg PO QDAY mood Unknown History release duloxetine 60 mg capsule,delayed 60 mg PO QDAY mood Unknown History release losartan 50 mg tablet 50 mg PO QDAY bp 10/29/23 Un known History potassium chloride 20 mEq 20 meq PO TID supplement Unknown History tablet,extended release(part/cryst) albuterol sulfate 90 mcg/actuation 2 puff inhalation Q 6H PRN 05/04/24 Unknown Rx aerosol inhaler shortness of breath or wheez ing #18 grams meclizine 25 mg tablet 50 mg PO BID vertigo 4 Unknown History fluticasone fur. 200 mcg-umeclid 1 inh inhalation MYRON Y sob #60 ea 11/22/24 Unknown Rx 62.5 mcg-vilant 25 mcg inhalat.powder (Trelegy Ellipta) Allergy/AdvReac Type Severity Reaction Status Date / Time codeine Allergy Unknown Verified 05/16/25 13:56 ciprofloxacin (From Cipro) AdvReac Vomiting Verified 05/16/25 13:56 Family History Sister Diabetes Brother Diabetes Heart disease Father Heart disease Surgical History History of left hip replacement Hx of hysterectomy History of carpal tunnel release of both wrists Social History household members: none Smoking Status: Current every day smoker tobacco type: cigarettes and e-cigarettes Tobacco: How many years used: 40 Electronic Cigarette Use: with nicotine how long ago did patient quit smokin quit smoking cigarettes, 1ppd vaping currently second hand exposure: Yes Lab / Micro Data 05/17/25 03:15 05/17/25 03:15 Labs: Laboratory Results - last 24 hr 05/17/25 03:15: WBC 11.0, RBC 4.57, Hgb 13.4, Hct 39.3, MCV 86.0, MCH 29.3, MCHC34.1, RDW Std Deviation 42.9, RDW Coeff of Nikolsa 13.7, Plt Count 279, MPV 10.3, Immature Gran % (Auto) 0.600, Neut % (Auto) 57.9, Lymph % (Auto) 25.6, Jackson % (Auto) 13.6 H, Eos % (Auto) 1.5, Baso % (Auto) 0.8, Absolute Neuts (auto) 6.4, Absolute Lymphs (auto) 2.82, Nucleated RBC % 0, Sodium 134, Potassium 3.5, Chloride 100, Carbon Dioxide 21.0, Anion Gap 13, BUN 13, Creatinine 1.03, Estim Creat Clear Calc 44.72 L, EstGFR (MDRD) Non-Af 58 L, BUN/Creatinine Ratio 12.8,Glucose 86, Calcium 8.4, Total Bilirubin 0.83, AST 16, ALT 11, Alkaline Phosphatase 82, Total Protein 6.2, Albumin 3.4, Globulin 2.8, Albumin/Globulin Ratio 1.2 Micro: Microbiology 05/16/25 15:40 Stool Stool Occult Blood (MARVIN) - Final Occult Blood Positive Assessment & Plan Assessment/Plan (1) Abnormal finding on imaging of liver: PLAN: 70-year-old female with an incidental finding of a double duct sign (mild dilation of both the biliary and pancreatic ducts) and an intact gallbladder. The absence of a visible obstructing mass, choledocholithiasis, and normal LFTs makes this a challenging diagnosis. Differential diagnoses include: * Benign etiology:?In older patients, mild dilation can sometimes be benign and not require intervention. Other possibilities include chronic pancreatitis or a periampullary diverticulum. * Malignancy:?The double duct sign, especially when found with a prominent pancreatic duct, suggests the possibility of pancreatic or ampullary malignancy, even without a visible mass on initial imaging. This warrants further investigation. * Post-cholecystectomy changes:?The patient's gallbladder is intact, so this is not a consideration. However, dilation in an older patient with a prior cholecystectomy is a known phenomenon. Plan * Further workup:?The imaging results warrant a higher-level investigation to rule out a subtle or developing malignancy. * MRCP (Magnetic Resonance Cholangiopancreatography):?Await MRCP * EUS (Endoscopic Ultrasound):?This procedure can provide high-resolution imaging of the pancreatichead, ampulla, and bile ducts, and allows for tissue sampling if a lesion is identified. Charges/Coding Visit Charges Inpatient E&M: 10203 Init Hosp L3 05/18/25 1417 Cosigner Signature (if applicable): CC: Dr. Claudine Mallory, DO~ Signed [facility]10-01-2025 Consult note [facility] Medical Records Department [address] [place] [address] Anesthesia Postop Eval I 05/18/251404 MR#: [id number] Acct: [id number] Name: NORA GRANDE Rep #:[id number] : 1955 70 From: Carlo Arias PCP: Dr. Claudine Mallory DO Status:ADM IN Y Race: C Location: [place] [address] Anesthesia: Postop Eval I Current Vital Signs Temperature: 98.7 F Pulse Rate: 88 Blood Pressure: 127/79 Respiratory Rate: 16 Pulse Ox: 97 Oxygen Delivery Method: Room Air Assessment Airway patent: Yes Spontaneous unlabored respirations: Yes Mental status: Asleep nausea: No Vomiting: No Anesthesia Complication: No Fluid Hydration Crystalloid volume administer (ml): 400 Total IV fluid infused: 400 Progress Note Anesthesia document: Postop Eval 1 completed: Yes 05/18/25 1406 > Date _ Carlo Arias Cosigner Signature: Date CC: ~ Signed [facility]10-01-2025 Radiology Diagnostic study note [facility] Imaging Services [address] [place], [place] [id number] ERCP Biliary/Pancreas MR#: [id number] Acct: [id number] Name: NORA GRANDE Rep #: [id number] : 1955 F 70 From: Jonathan Ibrahim MD PCP: Dr. Claudine Mallory DO Status: ADM IN Study:ERCP Biliary/Pancreas Date of Exam: 05/18/25 Exam# [id number] Ordering Dr: Ashlie Tadeo DO PROCEDURE: ERCP BILIARY/PANCREAS; O.R. FLUORO FOR C-ARM 05/18/2025 REASON FOR EXAM: ERCP TECHNIQUE: Procedure Code: RADERCP; RADORFL_C_ARM Modality: DX Procedure: ERCP BILIARY/PANCREAS; O.R. FLUORO FOR C-ARM Fluoroscopy time: 70.5 seconds. Dose: 13.06 mGy. RAD/ERCP Biliary/Pancreas IMPRESSION: Fluoroscopy was performed for ERCP. 9 spot images were also obtained. Reading Location: [address] CC: Dr. Claudine Mallory DO; Connor Tadeo DO ~ Angle Roll Operator: Signed [facility]10-01-2025 Radiology Diagnostic study note [facility] Imaging Services [address] [place], [place] [address] O.R. Fluoro for C-Arm MR#: [id number] Acct: [id number] Name: NORA GRANDE Rep #: [id number] : 1955 F 70 From: Jonathan Ibrahim MD PCP: Dr. Claudine Mallory DO Status: ADM IN Study:O.R. Fluoro for C-Arm Date of Exam: 05/18/25 Exam# [id number] Ordering Dr: Ashlie Tadeo DO PROCEDURE: ERCP BILIARY/PANCREAS; O.R. FLUORO FOR C-ARM 05/18/2025 REASON FOR EXAM: ERCP TECHNIQUE: Procedure Code: RADERCP; RADORFL_C_ARM Modality: DX Procedure: ERCP BILIARY/PANCREAS; O.R. FLUORO FOR C-ARM Fluoroscopy time: 70.5 seconds. Dose: 13.06 mGy. RAD/O.R. Fluoro for C-Arm IMPRESSION: Fluoroscopy was performed for ERCP. 9 spot images were also obtained. Reading Location: [id number] CC: Dr. Claudine Mallory DO; Connor Tadeo DO ~ Angle Roll Operator: Signed [facility]10-01-2025 Procedure note [facility] Medical Records Department [address] [place] [address] ERCP Report MR#: [id number] Acct: [id number] Name: NORA GRANDE Rep #:[id number] : 1955 70 From: Connor Tadeo DO PCP: Dr. 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 Refer to note in patient chart for documentation of history and physical. Patient has symptoms of acute right upper quadrant abdominal pain. This patient has no history of previous ERCP. This patient has no history of surgical alteration of the upper digestive tract anatomy. Complications: No immediate complications. Procedure: Pre-Anesthesia Assessment: - Prior to the procedure, a History and Physical was performed, and patient medications and allergies were reviewed. The patient is competent. The risks and benefits of the procedure and the sedation options and risks were discussed with the patient. All questions were answered and informed consent was obtained. Patient identification and proposed procedure were verified by the physician in the pre-procedure area. Mental Status Examination: normal. Prophylactic Antibiotics: The patient does not require prophylactic antibiotics. Prior Anticoagulants: The patient has taken no anticoagulant or antiplatelet agents except for NSAID medication. ASA Grade Assessment: III - A patient with severe systemic disease. After reviewing the risks and benefits, the patient was deemed in satisfactory condition to undergo the procedure. The anesthesia plan was to use monitored anesthesia care (MAC). Immediately prior to administration of medications, the patient was re-assessed for adequacy to receive sedatives. The heart rate, respiratory rate, oxygen saturations, blood pressure, adequacy of pulmonary ventilation, and response to care were monitored throughout the procedure. The physical status of the patient was re-assessed after the procedure. After obtaining informed consent, the scope was passed under direct vision. Throughout the procedure, the patient's blood pressure, pulse, and oxygen saturations were monitored continuously. The Duodenoscope was introduced through the mouth, and advanced to the duodenum and used to inject contrast into the bile duct and ventral pancreatic duct. The ERCP was accomplished without difficulty. The patient tolerated the procedure well. Scope In: 1:08:06 PM Scope Out: 1:34:19 PM Total Procedure Duration Time 0 hours 26 minutes 13 seconds Findings: The singing teacher film was normal. The esophagus was successfully intubated under direct vision. The scope was advanced to a normal major papilla in the descending duodenum without detailed examination of the pharynx, larynx and associated structures, and upper GI tract. The upper GI tract was grossly normal. The ventral pancreatic duct was deeply cannulated with the short-nosed traction sphincterotome. Contrast was injected. I personally interpreted the bile duct and pancreatic duct images. There was appropriate flow of contrast through the ducts. Image quality was adequate. Contrast extended to the hepatic ducts. Contrast extended to the entire biliary tree. Contrast extended to the pancreatic duct. Opacification of the entire pancreatic ductal system was successful. The maximum diameter of the ducts was 4 mm. A long 0.025 inch Jagwire was passed into the ventral pancreatic duct. One 5 Fr by 7 cm temporary stent was placed 5 cm into the ventral pancreatic duct. Clear fluid flowed through the stent. The stent was in good position. The bile duct was deeply cannulated with the short-nosed traction sphincterotome. Contrast was injected. Opacification of the entire biliary tree was successful. The maximum diameter of the ducts was 10 mm. The lower third of the main bile duct contained a single localized stenosis 6 mm in length. The main bile duct was diffusely dilated, acquired. The largest diameter was 10 mm. A long 0.025 inch Jagwire was passed into the biliary tree. A 5 mm biliary sphincterotomy was made with a traction (standard) sphincterotome using ERBE electrocautery. There was no post-sphincterotomy bleeding. The biliary tree was swept with a 12 mm balloon starting at the bifurcation. Sludge was swept from the duct. All stones were removed. Cells for cytology were obtained by brushing in the lower third of the main bile duct. Impression: - A single localized biliary stricture was found in the lower third of the main bile duct. The stricture was benign appearing, fibrotic and indeterminate. - The entire main bile duct was dilated, acquired. - Choledocholithiasis was found. Complete removal was accomplished by biliary sphincterotomy and balloon extraction. - One temporary stent was placed into the ventral pancreatic duct. - A biliary sphincterotomy was performed. - The biliary tree was swept. - Cells for cytology obtained in the lower third of the main duct. Procedure Code(s): --- Professional --- 94639, Endoscopic retrograde cholangiopancreatography (ERCP); with placement of endoscopic stent into biliary or pancreatic duct, including pre- and post-dilation and guide wire passage, when performed, including sphincterotomy, when performed, each stent 82447, 51, Endoscopic retrograde cholangiopancreatography (ERCP); with removal of calculi/debris from biliary/pancreatic duct(s) 08142, 59, Endoscopic retrograde cholangiopancreatography (ERCP); with sphincterotomy/papillotomy 09837, 26, Combined endoscopic catheterization of the biliary and pancreatic ductal systems, radiological supervision and interpretation CPT copyright 2021 [employer]. All rights reserved. The codes documented in this report are preliminary and upon harvest worker review may be revised to meet current compliance requirements. Connor Tadeo DO 05/18/2025 1:40:34 PM This report has been signed electronically. Number of Addenda: 0 Note Initiated On: 05/18/2025 12:38 PM 05/18/25 1340 Date _ Connor Tadeo DO Cosigner Signature: Date (if indicated) CC: Dr. Claudine Mallory DO; Connor Tadeo DO ~ Date Dictated: 05/18/25 1238 Date Transcribed: Angle Roll Operator: RF Signed [facility]10-01-2025 Procedure note [facility] Medical Records Department [address] [place] [address] Provation Physician Letter MR#: [id number] Acct: [id number] Name: NORA GRANDE Rep #:[id number] : 1955 70 From: Connor Tadeo DO PCP: Dr. Claudine Mallory DO Status:ADM IN 05/18/2025 Claudine Mallory [address] [facility] [place] [address] [place] [address] Re : ERCP procedure for Nora Grande Dear Dr. Mallory This procedure was performed on Friday, May 18, 2025. My impressions and recommendations are as follows: Impressions : - A single localized biliary stricture was found in the lower third of the main bile duct. The stricture was benign appearing, fibrotic and indeterminate. - The entire main bile duct was dilated, acquired. - Choledocholithiasis was found. Complete removal was accomplished by biliary sphincterotomy and balloon extraction. - One temporary stent was placed into the ventral pancreatic duct. - A biliary sphincterotomy was performed. - The biliary tree was swept. - Cells for cytology obtained in the lower third of the main duct. Recommendations : My findings are described in the full procedure note, which is enclosed. If I can be of further assistance, please feel free to contact me at . Sincerely, Connor Tadeo DO 05/18/2025 1:40:34 PM This report has been signed electronically. 05/18/25 1340 Date _ Connor Tadeo DO Cosigner Signature: Date (if indicated) CC: [employer] Christina Mendez; [employer] Rebecca Singh; Dr. Yordan Newman MD; Dr. Boston DO; Dr. Jaylen Mike MD; Dr. Zachary Coffey MD; Dr. Danilo Salvador MD; GREGOR Hernandez; Connor Tadeo DO ~ Date Dictated: 05/18/25 1238 Date Transcribed: Angle Roll Operator: RF Signed [facility]10-01-2025 Consult note [facility] Medical Records Department [address] [place] [address] Pre-Anesthesia Evaluation 05/18/25 1238 MR#: [id number] Acct: [id number] Name: NORA GRANDE Rep #:[id number] : 1955 70 From: Jorge Peguero PCP: Dr. Claudine Mallory DO Status:ADM IN Y Race: C Location: [place] [address] ASA Classification* ASA Classification ASA Classification: 3 Assessment & Plan Anesthesia* Anesthesia Assessment Anesthesia Assessment: Discussed sedation and/or anesthesia options, risks, benefits, and alternatives with patient/parents/legal guardian/POA. Questions invited. The patient/parents/legal guardian/POA seems to understand and agrees to proceedwith anesthesia plan. Reviewed the physical assessment, medical history, allergy history and patient home medications list prior to surgery/procedure/anesthetic and documented any changes. Performed airway and anesthesia risk assessments. Anesthesia Type Anesthesia Type: General History Source History Obtained from:: Patient and Chart Anesthesia Focused Assessment* Temperature: 98.1 F Pulse Rate: 80 Blood Pressure: 134/76 Respiratory Rate: 16 Pulse Ox: 95 Oxygen Delivery Method: Room Air Airway Assessment Mouth opens: >3 cm Mallampati Score: III Teeth Condition: Chipped/Broken and Missing Labs Anesthesia Preop lab: CBC WBC, (4.4-11.0) 11.0 K/mm3 05/17/25, 03:15 RBC, (4.2-5.4) 4.57 M/mm3 05/17/25, 03:15 Hgb, (12.0-15.0) 13.4 g/dL 05/17/25, 03:15 Hct, (37-47) 39.3 % 05/17/25, 03:15 Plt Count, (150-450) 279 K/mm3 05/17/25, 03:15 CHEMISTRY Potassium, (3.3-5.1) 3.5 mmol/L 05/17/25, 03:15 Sodium, (133-145) 134 mmol/L 05/17/25, 03:15 Magnesium, (1.6-2.6) 2.1 mg/dL 10/21/19, 15:09 BUN, (4-19) 13 mg/dL 05/17/25, 03:15 Creatinine, (0.70-1.20) 1.03 mg/dL 05/17/25, 03:15 Glucose, (70-99) 86 mg/dL 05/17/25, 03:15 TSH, (0.358-3.74) 2.47 uIU/mL 10/21/19, 15:09 COAG Pre-Assessment Diagnosis/Proposed Procedure Planned Operative Procedure(s): ERCP Anesthesia History Anesthesia History - credit card specialist: Anesthesia History - credit card specialist Hx Hospitalization Yes 09/10/19 13:04 Any Problems With Anesthesia No 05/18/25 01:02 Cholinesterase deficiency No 05/18/25 01:02 You/Your Family Experience No 05/18/25 01:02 fever (hyperthermia) with Relationship Recent Exposure to Contagious No 05/18/25 01:02 Disease Does patient have nerve No 05/18/25 01:02 stimulator Patient instructed to have No 05/18/25 01:02 device shut off --Does patient have Pacemaker No 05/17/25 22:42 or ICD? When Was Last Pacemaker Check QUESTION #4 FULL TEXT: You/Your Family Experience fever (hyperthermia) with Anesthesia Last Oral Intake Last Oral intake: Last Oral Intake NPO since 08:30 05/17/25 22:42 Meds taken in AM with sips of No 05/17/25 22:42 water? Meds patient instructed to take am of surgery PONV PONV - credit card specialist: PONV - credit card specialist Female HX of Motion Sickness HX of N/V After Surgery Non-Smoker Duration of Surgery greater than 60 minutes Number of Risk Factors PONV Score Height & Weight Height & Weight: Anesthesia: Height & Weight Height 5 ft 2 in 05/17/25 22:42 Weight: 64.2 kg 05/17/25 22:42 Body Mass Index (BMI) 25.9 05/17/25 22:42 Respiratory Assessment Respiratory Assessment - credit card specialist: Respiratory Tract Infection Hx - credit card specialist Hx Respiratory Tract Infection No 05/18/25 01:02 STOP Sleep Apnea STOP Sleep Apnea - credit card specialist: STOP Sleep Apnea - credit card specialist Hx Hypertension Yes 05/16/25 22:11 Hx Sleep Apnea No 05/16/25 22:11 CPAP BIPAP Do you snore loudly (louder No 05/16/25 22:11 than talking or can be heard Do you often feel tired/ No 05/16/25 22:11 fatigued/ sleepy during daytime? Has anyone observed you stop No 05/16/25 22:11 breathing during sleep? STOP Results Negative 05/16/25 22:11 QUESTION #5 FULL TEXT : Do you snore loudly (louder than talking or can be heard through closeddoors)? 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 Specify any problems Hx of Preganancy in last 3 No 05/16/25 22:11 Months Nurse Filling Out Transfusion DREDICK 05/16/25 22:11 & Questions: Date: 05/16/25 05/16/25 22:11 Time: 22:11 05/16/25 22:11 Patient unable to answer at this time (ie. confused, unrespo /Reproduction History /Reproductive History - credit card specialist: /Reproductive Hx- credit card specialist Hx Now No 05/18/25 01:02 Gestational Age (in weeks): EDC: Hx Hx Para Hx Section SAB No 05/18/25 01:02 Active Medications Active Medications: Current Medications Generic Name Dose Route Start Last Admin Trade Name Freq PRN Reason Stop Dose Admin Albuterol Sulfate 2.5 mg 05/16/25 22:04 Albuterol 2.5 Mg/3 Ml Vial.Neb. INHALATION Q4H PRN PRN shortness of breath/wheezing Albuterol/Ipratropium 3 ml 05/17/25 00:00 05/17/25 19:32 Ipratropium/Albuterol Sulfate 3 Ml Ampul.Neb INHALATION 3 ml Q6HWA.RT JEROD Administration Budesonide 0.5 mg 05/17/25 06:00 05/17/25 19:32 Budesonide Respules 0.5 Mg/2 Ml Ampul.Neb. INHALATION 0.5 mg Q12H.RT JEROD Administration Buspirone HCl 15 mg 05/17/25 22:00 05/18/25 11:09 Buspirone 15 Mg Tablet PO Not Given BID JEROD Clonazepam 1 mg 05/17/25 22:00 05/17/25 21:22 Clonazepam 1 Mg Tablet PO 1 mg QHS JEROD Administration Duloxetine HCl 30 mg 05/18/25 10:00 05/18/25 11:09 Duloxetine Hcl 30 Mg Capsule PO Not Given DAILY JEROD Duloxetine HCl 60 mg 05/18/25 10:00 05/18/25 11:10 Duloxetine Hcl 60 Mg Capsule PO Not Given DAILY JEROD Enoxaparin Sodium 40 mg 05/17/25 10:00 05/18/25 11:09 Enoxaparin 40 Mg/0.4 Ml Syringe SC Not Given DAILY JEROD Hydromorphone HCl 0.2 mg 05/16/25 22:35 05/18/25 01:06 Hydromorphone Inj 0.2 Mg/Ml Syringe IV 0.2 mg Q4H PRN PRN Administration Pain Score 6-10 Sodium Chloride 1,000 mls @ 125 mls/hr 05/16/25 22:04 05/18/25 09:08 IV 125 mls/hr .Q8H JEROD Administration Sodium Chloride 250 mls @ 15 mls/hr 05/16/25 22:05 IV .[id number] PRN Saline Flush Sodium Chloride 250 mls @ 15 mls/hr 05/16/25 22:05 IV .[id number] PRN Additional IVPB Infusion Ketorolac Tromethamine 15 mg 05/16/25 22:35 05/18/25 05:19 Ketorolac 15 Mg/Ml Vial IV 05/21/25 22:37 15 mg Q6H PRN PRN Administration Pain Score 1-5 Losartan Potassium 50 mg 05/18/25 10:00 05/18/25 11:09 Losartan Potassium 50 Mg Tablet PO Not Given DAILY JEROD Protocol Olanzapine 15 mg 05/17/25 22:00 05/17/25 21:22 Olanzapine 5 Mg/Tab Tab.Rapdis PO 15 mg QHS JEROD Administration Ondansetron HCl 4 mg 05/16/25 22:04 Ondansetron 4 Mg/2 Ml Vial IV Q8H PRN PRN NAUSEA/VOMITING Sodium Chloride 10 - 40 ml 05/16/25 22:05 05/18/25 01:06 0.9% Saline Lock 10 Ml Syringe IV 10 ml UD PRN Administration SALINE FLUSH PFSH Medical History Hx of emotional problems Hormone deficiency Back problem HTN (hypertension) History of skin cancer CHF (congestive heart failure) Fibromyalgia Tobacco use Home Medications ?Medication ?Instructions ?Recorded ?Last Taken ?Type clonazepam 1 mg tablet 1 mg PO QHS anxiety 10/18/16 Unknown History multivitamin,ek-brbu-hzomburj 27 1 tab PO DAILY supple ment 10/18/16 Unknown History mg-0.4 mg tablet buspirone 15 mg tablet 15 mg PO BID mood 10/09/23 U nknown History cyclobenzaprine 10 mg tablet 10 mg PO BID muscle spasm 10/09/23 Unknown History olanzapine 15 mg tablet 15 mg PO QHS mood 10/09/23 U nknown History duloxetine 30 mg capsule,delayed 30 mg PO QDAY mood Unknown History release duloxetine 60 mg capsule,delayed 60 mg PO QDAY mood Unknown History release losartan 50 mg tablet 50 mg PO QDAY bp 10/29/23 Un known History potassium chloride 20 mEq 20 meq PO TID supplement Unknown History tablet,extended release(part/cryst) albuterol sulfate 90 mcg/actuation 2 puff inhalation Q 6H PRN 05/04/24 Unknown Rx aerosol inhaler shortness of breath or wheez ing #18 grams meclizine 25 mg tablet 50 mg PO BID vertigo 4 Unknown History fluticasone fur. 200 mcg-umeclid 1 inh inhalation MYRON Y sob #60 ea 11/22/24 Unknown Rx 62.5 mcg-vilant 25 mcg inhalat.powder (Trelegy Ellipta) Allergy/AdvReac Type Severity Reaction Status Date / Time codeine Allergy Unknown Verified 05/16/25 13:56 ciprofloxacin (From Cipro) AdvReac Vomiting Verified 05/16/25 13:56 Family History Sister Diabetes Brother Diabetes Heart disease Father Heart disease Surgical History History of left hip replacement Hx of hysterectomy History of carpal tunnel release of both wrists Social History household members: none Smoking Status: Current every day smoker tobacco type: cigarettes and e-cigarettes Tobacco: How many years used: 40 Electronic Cigarette Use: with nicotine how long ago did patient quit smokin quit smoking cigarettes, 1ppd vaping currently second hand exposure: Yes Prior Cardiac Testing/Procedures Prior Cardiac Testing/Procedures: Echocardiogram (60% Diastolic dysfunction ) Review of Systems (Anesthesia) ROS Narrative System reviewed and no additional complaints, except as documented. Physical Exam Const alert, oriented x3 and average body habitus Resp normal respiratory effort and normal air movement Auscultation: clear to auscultation bilaterally Cardio regular rate and regular rhythm Neuro oriented x3 and moves all extremities 05/18/25 1246 MD> Date _ Jorge Og MD Cosigner Signature: Date CC: ~ Signed [facility]10-01-2025 Progress note Author Yordan Newman [facility] Note Date/Time May 18, 2025 8: 34am [facility] Medical Records Department [address] [place] [address] Progress Note - Hospitalist 05/18/25 0827 MR#: [id number] Acct: [id number] Name: NORA GRANDE Rep #:[id number] : 1955 70 From: Yordan Newman MD PCP: Dr. Claudine Mallory, DO Status:ADM IN Location: [place] [address] Reason for Visit Chief Complaint: Abdominal pain Subjective Subjective Patient is a 70-year-old female who presented with abdominal pain. Ultrasound of the gallbladder demonstrated cholelithiasis with no evidence of acute cholecystitis Objective Data Objective Data Vital Signs: Vital Signs Temp Pulse Resp BP Pulse Ox O2 Del Method 98.5 F 82 16 143/76 H 99 Room Air 05/18/25 05:18 05/18/25 05:18 05/18/25 05:18 05/18/25 05:18 05/18/25 05:18 05/18/25 05:20 Oxygen Delivery Method Room Air Weight: 64.2 kg Body Mass Index (BMI) 25.9 Intake & Output: Intake and Output for Last 24 Hours 05/16/25 05/17/25 05/18/25 23:59 23:59 23:59 Intake Total 400 / 400 3441.67 / 3441.67 500 / 500 Balance 400 / 400 3441.67 / 3441.67 500 / 500 Lab / Micro Data 05/17/25 03:15 05/17/25 03:15 Micro: Microbiology 05/16/25 15:40 Stool Stool Occult Blood (MARVIN) - Final Occult Blood Positive Radiography Diagnostic Testing: Radiology Impression MRCP 05/17/25 11:19 IMPRESSION: Gall bladder calculi. No cholecystitis. Relatively prominent extra-hepatic biliary tracts with prominent pancreatic ductshowing no intraluminal filling defects or pancreatic head masses, possibly age related . Reading Location: [place] [address] Physical Exam Narrative GENERAL: cooperative HEENT: Atraumatic; normocephalic EYES; Anicteric, Normal Conjunctiva NECK; supple, normal thyroid, RESPIRATORY: Diminished to auscultation CARDIOVASCULAR: Regular S1 S2, GI: soft, normoactive bowel sounds, : No Renal angle tenderness; EXTREMITIES: No edema, no clubbing, MUSCULOSKELETAL: no muscle wasting NEURO: Awake; no lateralizing signs. SKIN: No Rash PSYCH; Flat affect Assessment & Plan Assessment/Plan (1) Cholelithiases: PLAN: Plan Patient is a 70-year-old female who presented with abdominal pain. Ultrasound of the gallbladder demonstrated cholelithiasis with no evidence of acute cholecystitis 1. Abdominal pain ? Secondary to cholelithiasis. Ultrasound of the gallbladder did show Mild intra and extrahepatic biliary ductal dilatation, and prominence of the main pancreatic duct. No discrete obstructing mass or choledocholithiasis appreciated. Admitted to regular nursing floor for symptom management consult placed to GI patient seen by Dr. Tadeo and is for patient to undergo ERCP 2. Hypertension ? Blood pressure controlled, home medications continued with dose adjustment as needed 3. Depression with anxiety ? Patient is on duloxetine, olanzapine as well as clonazepam 4. Tobacco dependence ? Counseled on cessation, offered nicotine patch for tobacco cravings 5. COPD ? Currently not in exacerbation aerosol treatments as needed 6. Obstructive sleep apnea ? Consistent use of PAP therapy encouraged 7 DVT prophylaxis ? Subcu Lovenox Time spent in the patient's overall evaluation,decision-making process, review of diagnostic data, adjustment of management, discussion with other providers, nursing nursing and ancillary staff involved in patient's care documentation, 40 Minutes Charges/Coding Visit Charges Inpatient E&M: 18222 Subs Hosp L2 05/18/25 0834 <Electronically signed by Yordan Newman MD> Cosigner Signature (if applicable): CC: ~ Signed [facility] Work Phone: 1(968) 372-274610-01-2025 Progress note [facility] Medical Records Department [address] [place] [address] Progress Note - Hospitalist 05/18/25826 MR#: [id number] Acct: [id number] Name: NORA GRANDE Rep #:[id number] : 1955 70 From: Yordan Newman MD PCP: Dr. Claudine Mallory, DO Status:ADM IN Location: [facility] [place], [place] TB382-2 Reason for Visit Chief Complaint: Abdominal pain Subjective Subjective Patient is a 70-year-old female who presented with abdominal pain. Ultrasound of the gallbladder demonstrated cholelithiasis with no evidence of acute cholecystitis Objective Data Objective Data Vital Signs: Vital Signs Temp Pulse Resp BP Pulse Ox O2 Del Method 98.5 F 82 16 143/76 H 99 Room Air 05/18/25 05:18 05/18/25 05:18 05/18/25 05:18 05/18/25 05:18 05/18/25 05:18 05/18/25 05:20 Oxygen Delivery Method Room Air Weight: 64.2 kg Body Mass Index (BMI) 25.9 Intake & Output: Intake and Output for Last 24 Hours 05/16/25 05/17/25 05/18/25 23:59 23:59 23:59 Intake Total 400 / 400 3441.67 / 3441.67 500 / 500 Balance 400 / 400 3441.67 / 3441.67 500 / 500 Lab / Micro Data 05/17/25 03:15 05/17/25 03:15 Micro: Microbiology 05/16/25 15:40 Stool Stool Occult Blood (MARVIN) - Final Occult Blood Positive Radiography Diagnostic Testing: Radiology Impression MRCP 05/17/25 11:19 IMPRESSION: Gall bladder calculi. No cholecystitis. Relatively prominent extra-hepatic biliary tracts with prominent pancreatic ductshowing no intraluminal filling defects or pancreatic head masses, possibly age related . Reading Location: [place] [address] Physical Exam Narrative GENERAL: cooperative HEENT: Atraumatic; normocephalic EYES; Anicteric, Normal Conjunctiva NECK; supple, normal thyroid, RESPIRATORY: Diminished to auscultation CARDIOVASCULAR: Regular S1 S2, GI: soft, normoactive bowel sounds, : No Renal angle tenderness; EXTREMITIES: No edema, no clubbing, MUSCULOSKELETAL: no muscle wasting NEURO: Awake; no lateralizing signs. SKIN: No Rash PSYCH; Flat affect Assessment & Plan Assessment/Plan (1) Cholelithiases: PLAN: Plan Patient is a 70-year-old female who presented with abdominal pain. Ultrasound of the gallbladder demonstrated cholelithiasis with no evidence of acute cholecystitis 1. Abdominal pain ? Secondary to cholelithiasis. Ultrasound of the gallbladder did show Mild intra and extrahepatic biliary ductal dilatation, and prominence of the main pancreatic duct. No discrete obstructing mass or choledocholithiasis appreciated. Admitted to regular nursing floor for symptom management consult placed to GI patient seen by Dr. Tadeo and is for patient to undergo ERCP 2. Hypertension ? Blood pressure controlled, home medications continued with dose adjustment as needed 3. Depression with anxiety ? Patient is on duloxetine, olanzapine as well as clonazepam 4. Tobacco dependence ? Counseled on cessation, offered nicotine patch for tobacco cravings 5. COPD ? Currently not in exacerbation aerosol treatments as needed 6. Obstructive sleep apnea ? Consistent use of PAP therapy encouraged 7 DVT prophylaxis ? Subcu Lovenox Time spent in the patient's overall evaluation,decision-making process, review of diagnostic data, adjustment of management, discussion with other providers, nursing nursing and ancillary staff involved in patient's care documentation, 40 Minutes Charges/Coding Visit Charges Inpatient E&M: 38175 Subs Hosp L2 05/18/25 0834 Cosigner Signature (if applicable): CC: ~ Signed [facility]09-30-2025 Progress note Author Jaylen Mkie [facility] Note Date/Time May 17, 2025 11:19am [facility] Medical Records Department [address] [place] [address] Progress Note - Hospitalist 05/17/25 1114 MR#: [id number] Acct: [id number] Name: NORA GRANDE Rep #:[id number] : 1955 70 From: Jaylen franco MD PCP: Dr. Claudine Mallory, DO Status:ADM IN Location: [facility] [place] [place] [id number] Subjective Subjective Abdominal pain is improved today. Plan for MRCP Objective Data Objective Data Vital Signs: Vital Signs Temp Pulse Resp BP Pulse Ox O2 Del Method 97.9 F 72 16 138/74 H 100 Room Air 05/17/25 09:00 05/17/25 09:00 05/17/25 09:00 05/17/25 09:00 05/17/25 09:00 05/17/25 09:00 Oxygen Delivery Method Room Air Weight: 141 lb 8.588 oz Body Mass Index (BMI) 25.9 Intake & Output: Intake and Output for Last 24 Hours 05/16/25 05/17/25 05/18/25 03:59 03:59 03:59 Intake Total 400 / 400 968.75 / 968.75 Balance 400 / 400 968.75 / 968.75 Lab / Micro Data 05/17/25 03:15 05/17/25 03:15 Labs: Laboratory Results - last 24 hr 05/16/25 14:30: WBC 12.0 H, RBC 4.99, Hgb 14.6, Hct 44.0, MCV 88.2, MCH 29.3, MCHC 33.2, RDW Std Deviation 44.4 H, RDW Coeff of Nikolas 13.8, Plt Count 292, MPV 10.2, Immature Gran % (Auto) 0.600, Neut % (Auto) 65.6, Lymph % (Auto) 21.9, Jackson % (Auto) 10.2 H, Eos % (Auto) 0.9, Baso % (Auto) 0.8, Absolute Neuts (auto) 7.9 H, Absolute Lymphs (auto) 2.63, Nucleated RBC % 0, Sodium 134, Potassium 3.5, Chloride 99, Carbon Dioxide 21.6, Anion Gap 13, BUN 14, Creatinine 1.17, Estim Creat Clear Calc 39.17 L, Est GFR (MDRD) Non-Af 50 L, BUN/Creatinine Ratio 11.7, Glucose 146 H, Calcium 9.2, Total Bilirubin 0.82, AST 14, ALT 13, AlkalinePhosphatase 75, Total Protein 7.0, Albumin 3.6, Globulin 3.3, Albumin/Globulin Ratio 1.1, Lipase 18 05/16/25 17:28: Urine Color Yellow, Urine Clarity Clear, Urine pH 6.0, Ur Specific [place] 1.010, Urine Protein 30 H, Urine Glucose (UA) Normal, Urine Ketones Negative, Urine Occult Blood 10 H, Urine Nitrite Negative, Urine Bilirubin Negative, Urine Urobilinogen Normal, Ur Leukocyte Esterase 25 H, UrineRBC 0-5 SEEN, Urine WBC 0- 5 SEEN, Ur Squamous Epith Cells 0-5 SEEN, Urine Bacteria 0 SEEN, Urine Mucus 0 SEEN 05/17/25 03:15: WBC 11.0, RBC 4.57, Hgb 13.4, Hct 39.3, MCV 86.0, MCH 29.3, MCHC34.1, RDW Std Deviation 42.9, RDW Coeff of Nikolas 13.7, Plt Count 279, MPV 10.3, Immature Gran % (Auto) 0.600, Neut % (Auto) 57.9, Lymph % (Auto) 25.6, Jackson % (Auto) 13.6 H, Eos % (Auto) 1.5, Baso % (Auto) 0.8, Absolute Neuts (auto) 6.4, Absolute Lymphs (auto) 2.82, Nucleated RBC % 0, Sodium 134, Potassium 3.5, Chloride 100, Carbon Dioxide 21.0, Anion Gap 13, BUN 13, Creatinine 1.03, Estim Creat Clear Calc 44.72 L, Est GFR (MDRD) Non-Af 58 L, BUN/Creatinine Ratio 12.8,Glucose 86, Calcium 8.4, Total Bilirubin 0.83, AST 16, ALT 11, Alkaline Phosphatase 82, Total Protein 6.2, Albumin 3.4, Globulin 2.8, Albumin/Globulin Ratio 1.2 Micro: Microbiology 05/16/25 15:40 Stool Stool Occult Blood (MARVIN) - Final Occult Blood Positive Radiography Diagnostic Testing: Radiology Impression Abdomen/Pelvis CT 05/16/25 16:27 IMPRESSION: Interval development of moderate right intrahepatic ductal dilatation of uncertain etiology. No definitive obstructing mass or stone in the right hepatic duct. Left biliaryintrahepatic ducts normal. Cholelithiasis. No definitive choledocholithiasis. Reading Location: [place] [address] Gallbladder Ultrasound 05/16/25 16:59 IMPRESSION: Cholelithiasis. No evidence for acute cholecystitis. Mild intra and extrahepatic biliary ductal dilatation, and prominence of the main pancreatic duct. No discrete obstructing mass or choledocholithiasis appreciated. MRCP may be helpful. Mild diffuse hepatic steatosis. Small benign-appearing hepatic cysts. Reading Location: [facility] [place] Physical Exam Narrative General: Alert, Oriented x3, Cooperative, No apparent distress HEENT: Atraumatic, PERRLA, EOMI, Normocephalic Oral: Moist Mucosa Neck: Supple, No JVD Lungs: Diminished, Normal air movement, No rhonchi, No wheeze, No rales Cardiovascular: Regular rate, Regular Rhythm, Normal S1, Normal S2, No murmurs Abdomen: Soft, Non Tender, Non-Distended, No Hepato-splenomegaly Extremities: No edema, Capillary Refill Less than 3 Seconds Skin: No rashes, No breakdown Musculoskeletal: No Tenderness to Palpation of Joints or Extremities Neurological: No focal neurological deficits, moves all extremities, sensation intact Psych/Mental Status: Normal Affect, Appropriate Assessment & Plan Assessment/Plan (1) Cholelithiases: PLAN: Plan 1. Cholelithiasis without cholecystitis with right intrahepatic ductal dilatation ? Pain so far has been controlled overnight ? Continue with n.p.o. ? Consult GI ? Proceed with an MRCP ? Continue with IV fluids 2. Essential HTN ? Blood pressures currently are stable ? Can resume her home blood pressure medications 3. Anxiety/depression ? Stable ? Can resume her home medications 4. COPD/tobacco abuse ? Stable ? Not in exacerbation ? Can resume her home inhalers ? Discussed tobacco cessation DVT: Lovenox Charges/Coding Visit Charges Inpatient E&M: 76348 Subs Hosp L2 05/17/25 1119 <Electronically signed by Jaylen Mike MD> Cosigner Signature (if applicable): CC: ~ Signed [facility] Work Phone: 1(560) 989-213209-30-2025 Progress note [facility] Medical Records Department [address] [place] [address] Progress Note - Hospitalist 05/17/25 1114 MR#: [id number] Acct: [id number] Name: NORA GRANDE Rep #:[id number] : 1955 70 From: Jaylen franco MD PCP: Dr. Claudine Mallory, DO Status:ADM IN [id number] Subjective Subjective Abdominal pain is improved today. Plan for MRCP Objective Data Objective Data Vital Signs: Vital Signs Temp Pulse Resp BP Pulse Ox O2 Del Method 97.9 F 72 16 138/74 H 100 Room Air 05/17/25 09:00 05/17/25 09:00 05/17/25 09:00 05/17/25 09:00 05/17/25 09:00 05/17/25 09:00 Oxygen Delivery Method Room Air Weight: 141 lb 8.588 oz Body Mass Index (BMI) 25.9 Intake & Output: Intake and Output for Last 24 Hours 05/16/25 05/17/25 05/18/25 03:59 03:59 03:59 Intake Total 400 / 400 968.75 / 968.75 Balance 400 / 400 968.75 / 968.75 Lab / Micro Data 05/17/25 03:15 05/17/25 03:15 Labs: Laboratory Results - last 24 hr 05/16/25 14:30: WBC 12.0 H, RBC 4.99, Hgb 14.6, Hct 44.0, MCV 88.2, MCH 29.3, MCHC 33.2, RDW Std Deviation 44.4 H, RDW Coeff of Nikolas 13.8, Plt Count 292, MPV 10.2, Immature Gran % (Auto) 0.600, Neut %(Auto) 65.6, Lymph % (Auto) 21.9, Jackson % (Auto) 10.2 H, Eos % (Auto) 0.9, Baso % (Auto) 0.8, Absolute Neuts (auto) 7.9 H, Absolute Lymphs (auto) 2.63, Nucleated RBC % 0, Sodium 134, Potassium 3.5, Chloride 99, Carbon Dioxide 21.6, Anion Gap 13, BUN 14, Creatinine 1.17, Estim Creat Clear Calc 39.17 L, Est GFR (MDRD) Non-Af 50 L, BUN/Creatinine Ratio 11.7, Glucose 146 H, Calcium 9.2, Total Bilirubin 0.82, AST 14, ALT 13, AlkalinePhosphatase 75, Total Protein 7.0, Albumin 3.6, Globulin 3.3, Albumin /Globulin Ratio 1.1, Lipase 18 05/16/25 17:28: Urine Color Yellow, Urine Clarity Clear, Urine pH 6.0, Ur Specific [place] 1.010, Urine Protein 30 H, Urine Glucose (UA) Normal, Urine Ketones Negative, Urine Occult Blood 10 H, UrineNitrite Negative, Urine Bilirubin Negative, Urine Urobilinogen Normal, Ur Leukocyte Esterase 25 H, U rineRBC 0-5 SEEN, Urine WBC 0-5 SEEN, Ur Squamous Epith Cells 0-5 SEEN, Urine Bacteria 0 SEEN, Urine Mucus 0 SEEN 05/17/25 03:15: WBC 11.0, RBC 4.57, Hgb 13.4, Hct 39.3, MCV 86.0, MCH 29.3, MCHC34.1, RDW Std Deviation 42.9, RDW Coeff of Nikolas 13.7, Plt Count 279, MPV 10.3, Immature Gran % (Auto) 0.600, Neut % (Auto) 57.9, Lymph % (Auto) 25.6, Jackson % (Auto) 13.6 H, Eos % (Auto) 1.5, Baso % (Auto) 0.8, Absolute Neuts (auto) 6.4, Absolute Lymphs (auto) 2.82, Nucleated RBC % 0, Sodium 134, Potassium 3.5, Chloride 100, Carbon Dioxide 21.0, Anion Gap 13, BUN 13, Creatinine 1.03, Estim Creat Clear Calc 44.72 L, EstGFR (MDRD) Non-Af 58 L, BUN/Creatinine Ratio 12.8,Glucose 86, Calcium 8.4, Total Bilirubin 0.83, AST 16, ALT 11, Alkaline Phosphatase 82, Total Protein 6.2, Albumin 3.4, Globulin 2.8, Albumin/Globulin Ratio 1.2 Micro: Microbiology 05/16/25 15:40 Stool Stool Occult Blood (MARVIN) - Final Occult Blood Positive Radiography Diagnostic Testing: Radiology Impression Abdomen/Pelvis CT 05/16/25 16:27 IMPRESSION: Interval development of moderate right intrahepatic ductal dilatation of uncertain etiology. No definitive obstructing mass or stone in the right hepatic duct. Left biliaryintrahepatic ducts normal. Cholelithiasis. No definitive choledocholithiasis. Reading Location: [place] [address] Gallbladder Ultrasound 05/16/25 16:59 IMPRESSION: Cholelithiasis. No evidence for acute cholecystitis. Mild intra and extrahepatic biliary ductal dilatation, and prominence of the main pancreatic duct. No discrete obstructing mass or choledocholithiasis appreciated. MRCP may be helpful. Mild diffuse hepatic steatosis. Small benign-appearing hepatic cysts. Reading Location: [facility] [place] Physical Exam Narrative General: Alert, Oriented x3, Cooperative, No apparent distress HEENT: Atraumatic, PERRLA, EOMI, Normocephalic Oral: Moist Mucosa Neck: Supple, No JVD Lungs: Diminished, Normal air movement, No rhonchi, No wheeze, No rales Cardiovascular: Regular rate, Regular Rhythm, Normal S1, Normal S2, No murmurs Abdomen: Soft, Non Tender, Non-Distended, No Hepato-splenomegaly Extremities: No edema, Capillary Refill Less than 3 Seconds Skin: No rashes, No breakdown Musculoskeletal: No Tenderness to Palpation of Joints or Extremities Neurological: No focal neurological deficits, moves all extremities, sensation intact Psych/Mental Status: Normal Affect, Appropriate Assessment & Plan Assessment/Plan (1) Cholelithiases: PLAN: Plan 1. Cholelithiasis without cholecystitis with right intrahepatic ductal dilatation ? Pain so far has been controlled overnight ? Continue with n.p.o. ? Consult GI ? Proceed with an MRCP ? Continue with IV fluids 2. Essential HTN ? Blood pressures currently are stable ? Can resume her home blood pressure medications 3. Anxiety/depression ? Stable ? Can resume her home medications 4. COPD/tobacco abuse ? Stable ? Not in exacerbation ? Can resume her home inhalers ? Discussed tobacco cessation DVT: Lovenox Charges/Coding Visit Charges Inpatient E&M: 85136 Subs Hosp L2 05/17/25 1119 Cosigner Signature (if applicable): CC: ~ Signed [facility]09-30-2025 Discharge summary Author Tamara Neal [facility] Note Date/Time May 17, 2025 12:25am [facility] Medical Records Department [address] [place] [address] Emergency Department Summary 05/16/25 MR#: [id number] Acct: [id number] Name: NORA GRANDE Rep #:[id number] : 1955 70 From: Tamara Neal MD PCP: Dr. Claudine Mallory, DO Status:ADM IN Location: [facility] [place], [place] [id number] HPI HPI - GI History of Present Illness Chief Complaint: Abd Pain Narrative Narrative: Patient is a 70-year-old female presenting to the emergency department for abdominal pain that started on . Patient has a past medical history of COPD, hypertension, CHF, fibromyalgia. Patient states that on she started to have left sided abdominal pain. States that she cannot remember the last time that she had a normal bowel movement. Reports that on Friday she had a small hard bowel movement that had dark blood in it. She endorses some nausea with no vomiting. States the abdominal pain continued yesterday and today. Denies any fever, chills, chest pain, shortness of breath, dysuria or hematuria. Denies ever having abdominal pain like this in the past. She does not take anything for her symptoms. No BM yesterday or today. She is not on any OAC. Denies any alcohol or NSAID use. PFSH PFSH Medical History Hx of emotional problems Hormone deficiency Back problem HTN (hypertension) History of skin cancer CHF (congestive heart failure) Fibromyalgia Tobacco use Home Medications ?Medication ?Instructions ?Recorded ?Last Taken ?Type clonazepam 1 mg tablet 1 mg PO QHS anxiety 10/18/16 Unknown History multivitamin,qq-crvs-mrxavzsb 27 1 tab PO DAILY supple ment 10/18/16 Unknown History mg-0.4 mg tablet buspirone 15 mg tablet 15 mg PO BID mood 10/09/23 U nknown History cyclobenzaprine 10 mg tablet 10 mg PO BID muscle spasm 10/09/23 Unknown History olanzapine 15 mg tablet 15 mg PO QHS mood 10/09/23 U nknown History duloxetine 30 mg capsule,delayed 30 mg PO QDAY mood Unknown History release duloxetine 60 mg capsule,delayed 60 mg PO QDAY mood Unknown History release losartan 50 mg tablet 50 mg PO QDAY bp 10/29/23 Un known History potassium chloride 20 mEq 20 meq PO TID supplement Unknown History tablet,extended release(part/cryst) albuterol sulfate 90 mcg/actuation 2 puff inhalation Q 6H PRN 05/04/24 Unknown Rx aerosol inhaler shortness of breath or wheez ing #18 grams meclizine 25 mg tablet 50 mg PO BID vertigo 4 Unknown History fluticasone fur. 200 mcg-umeclid 1 inh inhalation MYRON Y sob #60 ea 11/22/24 Unknown Rx 62.5 mcg-vilant 25 mcg inhalat.powder (Trelegy Ellipta) Allergy/AdvReac Type Severity Reaction Status Date / Time codeine Allergy Unknown Verified 05/16/25 13:56 ciprofloxacin (From Cipro) AdvReac Vomiting Verified 05/16/25 13:56 Family History Sister Diabetes Brother Diabetes Heart disease Father Heart disease Surgical History History of left hip replacement Hx of hysterectomy History of carpal tunnel release of both wrists Social History household members: none Smoking Status: Current every day smoker tobacco type: cigarettes and e- cigarettes Tobacco: How many years used: 40 Electronic Cigarette Use: with nicotine how long ago did patient quit smokin quit smoking cigarettes, 1ppd vaping currently second hand exposure: Yes ROS ROS ED ROS Narrative see HPI EXAM Physical Exam Narrative Exam Narrative: Vital signs: Reviewed General: Alert and orientedx3. No acute distress HEENT: Head is normocephalic and atraumatic, sinuses nontender, pupils equal round and reactive. Nares are patent. Oropharynx and throat exams normal. Neck: Supple without lymphadenopathy nontender Cardiovascular: Regular rate and rhythm, no murmurs. No rubs or gallops. Normal S1 and S2 Respiratory: Clear to auscultation bilaterally. No wheezes, rales, rhonchi Abdominal: Soft and diffusely tender to palpation throughout. Normal bowel sounds. No guarding or rebound. : done with language interpreter at bedside. No hemorrhoids or fissures noted. No gross blood on internal rectal exam. Extremities: No tenderness. No bruising. Normal range of motion. Normal sensation. Skin: No rash or redness. Neurological: Cranial nerves II through XII are grossly intact. Normal strengthand sensation. Normal cerebellar function The rest of the physical exam is unremarkable Const Vital Signs: 05/16/25 13:56 05/16/25 14:45 05/16/25 15:34 Temperature 98.4 F Temperature Source Oral Pulse Rate 97 80 80 Respiratory Rate 18 18 17 Blood Pressure 160/98 H 139/105 H 141/99 H Blood Pressure Mean 118 116 113 Pulse Ox 98 100 100 Oxygen Delivery Method Room Air Room Air Room Air 05/16/25 16:40 05/16/25 17:00 05/16/25 18:00 Temperature Temperature Source Pulse Rate 81 67 83 Respiratory Rate 16 16 17 Blood Pressure 120/89 H 140/70 H 163/94 H Blood Pressure Mean 99 93 117 Pulse Ox 97 97 99 Oxygen Delivery Method 05/16/25 19:00 05/16/25 20:00 Temperature Temperature Source Pulse Rate 87 87 Respiratory Rate 16 17 Blood Pressure 143/91 H Blood Pressure Mean 108 Pulse Ox 100 97 Oxygen Delivery Method Room Air MDM MDM MDM Narrative Medical decision making narrative: Patient is a 70-year-old female presenting to the emergency department for abdominal pain, constipation and 1 episode of blood in her stool. Patient was seen and examined. Vitals are stable. Patient resting in bed comfortably no acute distress. Differential includes but is not limited to: Diverticulitis, hemorrhoids, upper GI bleed including peptic ulcer disease Patient offered analgesia and antiemetic however declines both at initial time of evaluation. Labs were ordered prior to me seeing the patient. CBC with mildleukocytosis of 12 and stable hemoglobin of 14.6. CMP with no significant normalities. Lipase within normal limits. Urinalysis with leukocyte esterase and occult blood, no other signs of infection. CT of the abdomen was ordered and shows interval development of moderate right intrahepatic ductal dilatation of uncertain etiology. No definitive obstructing mass or stone in the right hepatic duct. Left biliary intrahepatic ducts normal. Cholelithiasis with no definitive choledocholithiasis. Given these findings, right upper quadrant ultrasound was ordered. No additional findings on this. Fecal occult positive. Given these findings, discussed with on-call alarm signal operator, Dr. Tadeo, whostates with the abdominal pain and no other findings and MRCP is warranted. Discussed with patient and she is agreeable with admission. [facility]. Clinical impression: GI bleed abdominal pain Intrahepatic ductal dilatation History & Record Review Discussion w/independent historian: Patient Additional record(s) reviewed:: Prior labs Lab Data Attestation: I reviewed the patient's lab results. Labs: Laboratory Results - last 24 hr 05/16/25 05/16/25 14:30 17:28 WBC 12.0 H RBC 4.99 Hgb 14.6 Hct 44.0 MCV 88.2 MCH 29.3 MCHC 33.2 RDW Std Deviation 44.4 H RDW Coeff of Nikolas 13.8 Plt Count 292 MPV 10.2 Immature Gran % (Auto) 0.600 Neut % (Auto) 65.6 Lymph % (Auto) 21.9 Jackson % (Auto) 10.2 H Eos % (Auto) 0.9 Baso % (Auto) 0.8 Absolute Neuts (auto) 7.9 H Absolute Lymphs (auto) 2.63 Nucleated RBC % 0 Sodium 134 Potassium 3.5 Chloride 99 Carbon Dioxide 21.6 Anion Gap 13 BUN 14 Creatinine 1.17 Estim Creat Clear Calc 39.17 L Est GFR (MDRD) Non-Af 50 L BUN/Creatinine Ratio 11.7 Glucose 146 H Calcium 9.2 Total Bilirubin 0.82 AST 14 ALT 13 Alkaline Phosphatase 75 Total Protein 7.0 Albumin 3.6 Globulin 3.3 Albumin/Globulin Ratio 1.1 Lipase 18 Urine Color Yellow Urine Clarity Clear Urine pH 6.0 Ur Specific [place] 1.010 Urine Protein 30 H Urine Glucose (UA) Normal Urine Ketones Negative Urine Occult Blood 10 H Urine Nitrite Negative Urine Bilirubin Negative Urine Urobilinogen Normal Ur Leukocyte Esterase 25 H Urine RBC 0-5 SEEN Urine WBC 0-5 SEEN Ur Squamous Epith Cells 0-5 SEEN Urine Bacteria 0 SEEN Urine Mucus 0 SEEN Radiography Diagnostic Testing: Clinical Impression(s) from Imaging Studies Abdomen/Pelvis CT 05/16/25 16:27 IMPRESSION: Interval development of moderate right intrahepatic ductal dilatation of uncertain etiology. No definitive obstructing mass or stone in the right hepatic duct. Left biliaryintrahepatic ducts normal. Cholelithiasis. No definitive choledocholithiasis. Reading Location: [place] [address] Gallbladder Ultrasound 05/16/25 16:59 IMPRESSION: Cholelithiasis. No evidence for acute cholecystitis. Mild intra and extrahepatic biliary ductal dilatation, and prominence of the main pancreatic duct. No discrete obstructing mass or choledocholithiasis appreciated. MRCP may be helpful. Mild diffuse hepatic steatosis. Small benign-appearing hepatic cysts. Reading Location: [id number] Discharge Plan Disposition Disposition: Acute Care Hospital [facility] Discharge Date/Time: 05/16/25 21:57 What to do if you have Problems For any increased pain, shortness of breath, bleeding, nausea or vomiting, chestpain, or any unexpected problems, contact your Primary Care Provider. Call [employer] [facility] ([phone]) or report to the closest Emergency Room. Call 911 if necessary. 05/17/25 0025 <Electronically signed by Tamara Neal MD> Cosigner Signature (if applicable): CC: Dr. Claudine Mallory, DO ~ Signed [facility] Work Phone: 1(941) 287-523609-30-2025 Progress note Author Christina Mendez [facility] Note Date/Time May 16, 2025 11:46pm [facility] Medical Records Department [address] [place] [address] Progress Note - Hospitalist 05/16/257 MR#: [id number] Acct: [id number] Name: NORA GRANDE Rep #:[id number] : 1955 70 From: Christina Joyner PCP: Dr. Claudine Mallory, DO Status:ADM IN Location: [place] [address] Hospitalist Note Pt admitted from ER without having received any analgesia for her severe 9/10 abdominal pain. Only ondansetron ordered for nausea at this time. Order placed for ketorolac 15mg IV q6h PRN pain 1-5/10 and hydromorphone 0.2mg IV q4h PRN pain 6-10/10. Monitoring renal function. 05/16/252343 <Electronically signed by Christina CABALLERO> Cosigner Signature (if applicable): CC: ~ Signed ADDENDUM by FEDERICO Mendez on 05/16/25 at 2346 Addendum Dulcolax suppository x1 ordered for c/o no BM for a while and moderate stool burden noted on CT abd/pelvis. 05/16/252345<Electronically signed by Christina CABALLERO> Cosigner Signature (if applicable): cc: ~* Signed [facility] Work Phone: [phone]) 774-788709-30-2025 Discharge summary [facility] Medical Records Department [address] [place] [address] Emergency Department Summary 05/16/25 MR#: [id number] Acct: [id number] Name: NORA GRANDE Rep #:[id number] : 1955 70 From: Tamara Neal MD PCP: Dr. Claudine Sara, DO Status:ADM IN Location: [facility] [id number] HPI HPI - GI History of Present Illness Chief Complaint: Abd Pain Narrative Narrative: Patient is a 70-year-old female presenting to the emergency department for abdominal pain that started on . Patient has a past medical history of COPD, hypertension, CHF, fibromyalgia. Patient states that on she started to have left sided abdominal pain. States that she cannot remember the last time that she had a normal bowel movement. Reports that on Friday she had a small hard bowel movement that had dark blood in it. She endorses some nausea with no vomiting. States the abdominal pain continued yesterday and today. Denies any fever, chills, chest pain, shortness of breath, dysuria or hematuria. Denies ever having abdominal pain like this in the past. She does not take anything for her symptoms. No BM yesterday or today. She is not on any OAC. Denies any alcohol or NSAID use. PFSH PFSH Medical History Hx of emotional problems Hormone deficiency Back problem HTN (hypertension) History of skin cancer CHF (congestive heart failure) Fibromyalgia Tobacco use Home Medications ?Medication ?Instructions ?Recorded ?Last Taken ?Type clonazepam 1 mg tablet 1 mg PO QHS anxiety 10/18/16 Unknown History multivitamin,ta-yreg-lkolzdth 27 1 tab PO DAILY supple ment 10/18/16 Unknown History mg-0.4 mg tablet buspirone 15 mg tablet 15 mg PO BID mood 10/09/23 U nknown History cyclobenzaprine 10 mg tablet 10 mg PO BID muscle spasm 10/09/23 Unknown History olanzapine 15 mg tablet 15 mg PO QHS mood 10/09/23 U nknown History duloxetine 30 mg capsule,delayed 30 mg PO QDAY mood Unknown History release duloxetine 60 mg capsule,delayed 60 mg PO QDAY mood Unknown History release losartan 50 mg tablet 50 mg PO QDAY bp 10/29/23 Un known History potassium chloride 20 mEq 20 meq PO TID supplement Unknown History tablet,extended release(part/cryst) albuterol sulfate 90 mcg/actuation 2 puff inhalation Q 6H PRN 05/04/24 Unknown Rx aerosol inhaler shortness of breath or wheez ing #18 grams meclizine 25 mg tablet 50 mg PO BID vertigo 4 Unknown History fluticasone fur. 200 mcg-umeclid 1 inh inhalation MYRON Y sob #60 ea 11/22/24 Unknown Rx 62.5 mcg-vilant 25 mcg inhalat.powder (Trelegy Ellipta) Allergy/AdvReac Type Severity Reaction Status Date / Time codeine Allergy Unknown Verified 05/16/25 13:56 ciprofloxacin (From Cipro) AdvReac Vomiting Verified 05/16/25 13:56 Family History Sister Diabetes Brother Diabetes Heart disease Father Heart disease Surgical History History of left hip replacement Hx of hysterectomy History of carpal tunnel release of both wrists Social History household members: none Smoking Status: Current every day smoker tobacco type: cigarettes and e-cigarettes Tobacco: How many years used: 40 Electronic Cigarette Use: with nicotine how long ago did patient quit smokin quit smoking cigarettes, 1ppd vaping currently second hand exposure: Yes ROS ROS ED ROS Narrative see HPI EXAM Physical Exam Narrative Exam Narrative: Vital signs: Reviewed General: Alert and orientedx3. No acute distress HEENT: Head is normocephalic and atraumatic, sinuses nontender, pupils equal round and reactive. Nares are patent. Oropharynx and throat exams normal. Neck: Supple without lymphadenopathy nontender Cardiovascular: Regular rate and rhythm, no murmurs. No rubs or gallops. Normal S1 and S2 Respiratory: Clear to auscultation bilaterally. No wheezes, rales, rhonchi Abdominal: Soft and diffusely tender to palpation throughout. Normal bowel sounds. No guarding or rebound. : done with language interpreter at bedside. No hemorrhoids or fissures noted. No gross blood on internal rectal exam. Extremities: No tenderness. No bruising. Normal range of motion. Normal sensation. Skin: No rash or redness. Neurological: Cranial nerves II through XII are grossly intact. Normal strengthand sensation. Normal cerebellar function The rest of the physical exam is unremarkable Const Vital Signs: 05/16/25 13:56 05/16/25 14:45 05/16/25 15:34 Temperature 98.4 F Temperature Source Oral Pulse Rate 97 80 80 Respiratory Rate 18 18 17 Blood Pressure 160/98 H 139/105 H 141/99 H Blood Pressure Mean 118 116 113 Pulse Ox 98 100 100 Oxygen Delivery Method Room Air Room Air Room Air 05/16/25 16:40 05/16/25 17:00 05/16/25 18:00 Temperature Temperature Source Pulse Rate 81 67 83 Respiratory Rate 16 16 17 Blood Pressure 120/89 H 140/70 H 163/94 H Blood Pressure Mean 99 93 117 Pulse Ox 97 97 99 Oxygen Delivery Method 05/16/25 19:00 05/16/25 20:00 Temperature Temperature Source Pulse Rate 87 87 Respiratory Rate 16 17 Blood Pressure 143/91 H Blood Pressure Mean 108 Pulse Ox 100 97 Oxygen Delivery Method Room Air MDM MDM MDM Narrative Medical decision making narrative: Patient is a 70-year-old female presenting to the emergency department for abdominal pain, constipation and 1 episode of blood in her stool. Patient was seen and examined. Vitals are stable. Patient resting in bed comfortably no acute distress. Differential includes but is not limited to: Diverticulitis, hemorrhoids, upper GI bleed including peptic ulcer disease Patient offered analgesia and antiemetic however declines both at initial time of evaluation. Labs were ordered prior to me seeing the patient. CBC with mildleukocytosis of 12 and stable hemoglobin of 14.6. CMP with no significant normalities. Lipase within normal limits. Urinalysis with leukocyte esterase and occult blood, no other signs of infection. CT of the abdomen was ordered and shows interval development of moderate right intrahepatic ductal dilatation of uncertain etiology. No definitive obstructing mass or stone in the right hepatic duct. Left biliary intrahepatic ducts normal. Cholelithiasis with no definitive choledocholithiasis. Given these findings, right upper quadrant ultrasound was ordered. No additional findings on this. Fecal occult positive. Given these findings, discussed with on-call alarm signal operator, Dr. Tadeo, whostates with the abdominal pain and no other findings and MRCP is warranted. Discussed with patient and she is agreeable with admission. [facility]. Clinical impression: GI bleed abdominal pain Intrahepatic ductal dilatation History & Record Review Discussion w/independent historian: Patient Additional record(s) reviewed:: Prior labs Lab Data Attestation: I reviewed the patient's lab results. Labs: Laboratory Results - last 24 hr 05/16/25 05/16/25 14:30 17:28 WBC 12.0 H RBC 4.99 Hgb 14.6 Hct 44.0 MCV 88.2 MCH 29.3 MCHC 33.2 RDW Std Deviation 44.4 H RDW Coeff of Nikolas 13.8 Plt Count 292 MPV 10.2 Immature Gran % (Auto) 0.600 Neut % (Auto) 65.6 Lymph % (Auto) 21.9 Jackson % (Auto) 10.2 H Eos % (Auto) 0.9 Baso % (Auto) 0.8 Absolute Neuts (auto) 7.9 H Absolute Lymphs (auto) 2.63 Nucleated RBC % 0 Sodium 134 Potassium 3.5 Chloride 99 Carbon Dioxide 21.6 Anion Gap 13 BUN 14 Creatinine 1.17 Estim Creat Clear Calc 39.17 L Est GFR (MDRD) Non-Af 50 L BUN/Creatinine Ratio 11.7 Glucose 146 H Calcium 9.2 Total Bilirubin 0.82 AST 14 ALT 13 Alkaline Phosphatase 75 Total Protein 7.0 Albumin 3.6 Globulin 3.3 Albumin/Globulin Ratio 1.1 Lipase 18 Urine Color Yellow Urine Clarity Clear Urine pH 6.0 Ur Specific [place] 1.010 Urine Protein 30 H Urine Glucose (UA) Normal Urine Ketones Negative Urine Occult Blood 10 H Urine Nitrite Negative Urine Bilirubin Negative Urine Urobilinogen Normal Ur Leukocyte Esterase 25 H Urine RBC 0-5 SEEN Urine WBC 0-5 SEEN Ur Squamous Epith Cells 0-5 SEEN Urine Bacteria 0 SEEN Urine Mucus 0 SEEN Radiography Diagnostic Testing: Clinical Impression(s) from Imaging Studies Abdomen/Pelvis CT 05/16/25 16:27 IMPRESSION: Interval development of moderate right intrahepatic ductal dilatation of uncertain etiology. No definitive obstructing mass or stone in the right hepatic duct. Left biliaryintrahepatic ducts normal. Cholelithiasis. No definitive choledocholithiasis. Reading Location: [place] [address] Gallbladder Ultrasound 05/16/25 16:59 IMPRESSION: Cholelithiasis. No evidence for acute cholecystitis. Mild intra and extrahepatic biliary ductal dilatation, and prominence of the main pancreatic duct. No discrete obstructing mass or choledocholithiasis appreciated. MRCP may be helpful. Mild diffuse hepatic steatosis. Small benign-appearing hepatic cysts. Reading Location: [facility] [place] Discharge Plan Disposition Disposition: Acute Care Hospital [facility] Discharge Date/Time: 05/16/25 21:57 What to do if you have Problems For any increased pain, shortness of breath, bleeding, nausea or vomiting, chestpain, or any unexpected problems, contact your Primary Care Provider. Call [facility] ([phone]) or report tothe closest Emergency Room. Call 911 if necessary. 05/17/25 0025 Cosigner Signature (if applicable): CC: Dr. Claudine Mallory, DO ~ [facility]igned [facility] [facility]09-29-2025 Progress note [facility] Medical Records Department [address] [place] [address] Progress Note - Hospitalist 05/16/252336 MR#: [id number] Acct: [id number] Name: NORA GRANDE Rep #:[id number] : 1955 70 From: Christina Joyner PCP: Dr. Claudine Mallory, Status:ADM IN Location: [place] [address] Hospitalist Note Pt admitted from ER without having received any analgesia for her severe 9/10 abdominal pain. Only ondansetron ordered for nausea at this time. Order placed for ketorolac 15mg IV q6h PRN pain 1-5/10 and hydromorphone 0.2mg IV q4h PRN pain 6-10/10. Monitoring renal function. 05/16/252343 Cosigner Signature (if applicable): CC: ~ Signed ADDENDUM by FEDERICO Mendez on 05/16/25 at 2346 Addendum Dulcolax suppository x1 ordered for c/o no BM for a while and moderate stool burden noted on CT abd/pelvis. 05/16/252345 Cosigner Signature (if applicable): cc: ~* Signed [facility]09-29-2025 Evaluation note* Diagnosis Onset Date Resolution Status Admit Date Abnormal finding on imaging of liver acute May 16, 2025 8:26pm Cholelithiases acute May 16, 2025 8:26pm CHF (congestive heart failure) chron ic May 16, 2025 8:26pm COPD (chronic obstructive pulmonary disease) chronic April 8:26pm Fibromyalgia chronic May 162024 8:26pm HTN (hypertension) chronic Sept2024 8:26pm JORGE (obstructive sleep apnea) chroni c May 16, 2025 8:26pm Smoking greater than 30 pack years chronic May 16, 2025 8:26pm [facility] Work Phone: 1(378) 845-599309-29-2025 History and physical note Author Zachary Coffey [facility] Note Date/Time May 16, 2025 8:26pm [facility] Medical Records Department [address] [place] [address] History & Physical Exam 05/16/252006 MR#: [id number] Acct: [id number] Name: NORA GRANDE Rep #:[id number] : 1955 70 From: Zachary Coffey MD PCP: Dr. Claudine Mallory, DO Status:REG ER Location: ED HPI - General General Date of Admission: 05/16/25 Date of Service: 05/16/25 Chief Complaint: Abdominal pain HPI Narrative NORA GRANDE, is a 70 F who presents chief complaint of abdominal pain. Onset of symptoms began this this past with epigastric pain that radiated to the left side of her abdomen. Symptoms have progressed and on Friday she had blood in her stool. Patient admits to decrease in appetite butno nausea or vomiting. Pain is wax and wane but apparently got worse today so she came to the ER for evaluation. Patient has significant past medical historyof COPD, hypertension, CHF and fibromyalgia. Laboratory studies show white blood cell count 12,000, hemoglobin 14.6, hemoglobin 44, platelets 292, sodium 134, potassium 3.5, chloride 99, bicarb 21.6, BUN 14, creatinine 1.17, glucose 146, AST 14, ALT 13, lipase 18. Ultrasound gallbladder was positive for cholelithiasis without obstruction showing mild intra and hepatic biliary duct dilatation. CT abdomen and pelvis shows no definitive stone obstruction howevershe does show multiple gallstones. Dr. Tadeo was notified by ER physician and agreed to do MRCP on this patient. She will be admitted to general medical floor made n.p.o. with IV fluids and pain medication as necessary. PFSH Medical History Hx of emotional problems Hormone deficiency Back problem HTN (hypertension) History of skin cancer CHF (congestive heart failure) Fibromyalgia Tobacco use Home Medications ?Medication ?Instructions ?Recorded ?Last Taken ?Type clonazepam 1 mg tablet 1 mg PO QHS 10/18/16 Unknown History multivitamin,do-utsa-jpvzghfz 27 1 tab PO DAILY Unknown History mg-0.4 mg tablet buspirone 15 mg tablet mg PO BID 10/09/23 Unknown H istory cyclobenzaprine 10 mg tablet mg PO BID 10/09/23 Unknow n History olanzapine 15 mg tablet mg PO QHS 10/09/23 Unknown H istory duloxetine 30 mg capsule,delayed 30 mg PO QDAY 4 Unknown History release duloxetine 60 mg capsule,delayed 60 mg PO QDAY 4 Unknown History release losartan 50 mg tablet 50 mg PO QDAY 10/29/23 Unkno wn History potassium chloride 20 mEq 20 meq PO TID 10/29/23 Unkno wn History tablet,extended release(part/cryst) albuterol sulfate 90 mcg/actuation 2 puff inhalation Q 6H PRN 05/04/24 Unknown Rx aerosol inhaler shortness of breath or wheez ing #18 grams meclizine 25 mg tablet 50 mg PO BID 07/02/24 Unknow n History fluticasone fur. 200 mcg-umeclid 1 inh inhalation MYRON Y #60 ea 11/22/24 Unknown Rx 62.5 mcg-vilant 25 mcg inhalat.powder (Trelegy Ellipta) Allergy/AdvReac Type Severity Reaction Status Date / Time codeine Allergy Unknown Verified 05/16/25 13:56 ciprofloxacin (From Cipro) AdvReac Vomiting Verified 05/16/25 13:56 Family History Sister Diabetes Brother Diabetes Heart disease Father Heart disease Surgical History History of left hip replacement Hx of hysterectomy History of carpal tunnel release of both wrists Social History household members: none Smoking Status: Current every day smoker tobacco type: cigarettes and e- cigarettes Tobacco: How many years used: 40 Electronic Cigarette Use: with nicotine how long ago did patient quit smokin quit smoking cigarettes, 1ppd vaping currently second hand exposure: Yes ROS Constitutional Constitutional: Denies chills or fever(s) Eyes Eyes: Denies blurry vision ENT HEENT: Denies abnormal hearing Cardiovascular Cardiovascular: Denies chest pain Respiratory/Chest Respiratory/Chest: Denies shortness of breath at rest Gastrointestinal Gastrointestinal: Reports abdominal pain, dyspepsia and hematochezia; Denies diarrhea Genitourinary Genitourinary: Denies dysuria Musculoskeletal Musculoskeletal: Denies back pain Integumentary Integumentary: Denies jaundice Neurologic Neurologic: Denies abnormal gait Psychiatric Psychiatric: Denies anxiety Vital Signs Vital Signs Vital Signs: 05/16/25 13:56 05/16/25 14:45 05/16/25 15:34 Temperature 98.4 F Temperature Source Oral Pulse Rate 97 80 80 Respiratory Rate 18 18 17 Blood Pressure 160/98 H 139/105 H 141/99 H Blood Pressure Mean 118 116 113 Pulse Ox 98 100 100 Oxygen Delivery Method Room Air Room Air Room Air 05/16/25 16:40 05/16/25 17:00 05/16/25 18:00 Temperature Temperature Source Pulse Rate 81 67 83 Respiratory Rate 16 16 17 Blood Pressure 120/89 H 140/70 H 163/94 H Blood Pressure Mean 99 93 117 Pulse Ox 97 97 99 Oxygen Delivery Method 05/16/25 19:00 Temperature Temperature Source Pulse Rate 87 Respiratory Rate 16 Blood Pressure 143/91 H Blood Pressure Mean 108 Pulse Ox 100 Oxygen Delivery Method Weight Weight: 140 lb Body Mass Index (BMI) 25.6 Physical Exam Const oriented x3 General Appearance: cooperative and well developed HEENT head/scalp atraumatic Eyes PERRL Neck no lymphadenopathy Lymph Lymphatic: no lymphadenopathy noted Resp normal respiratory effort, normal air movement and clear to auscultation bilaterally Cardio regular rate, regular rhythm, S1 normal heart sound and S2 normal heart sound GI GI Narrative: Positive bowel sounds Palpation: tender epigastric and LUQ Extremity normal capillary refill and no clubbing, cyanosis or edema Skin General Skin Exam: no breakdown Neuro no focal motor deficits and no sensory deficits noted Psych thought process normal, cooperative and affect normal Results Lab / Micro Data 05/16/25 14:30 05/16/25 14:30 Labs: Laboratory Results - last 24 hr 05/16/25 14:30: WBC 12.0 H, RBC 4.99, Hgb 14.6, Hct 44.0, MCV 88.2, MCH 29.3, MCHC 33.2, RDW Std Deviation 44.4 H, RDW Coeff of Nikolas 13.8, Plt Count 292, MPV 10.2, Immature Gran % (Auto) 0.600, Neut % (Auto) 65.6, Lymph % (Auto) 21.9, Jackson % (Auto) 10.2 H, Eos % (Auto) 0.9, Baso % (Auto) 0.8, Absolute Neuts (auto) 7.9 H, Absolute Lymphs (auto) 2.63, Nucleated RBC % 0, Sodium 134, Potassium 3.5, Chloride 99, Carbon Dioxide 21.6, Anion Gap 13, BUN 14, Creatinine 1.17, Estim Creat Clear Calc 39.17 L, Est GFR (MDRD) Non-Af 50 L, BUN/Creatinine Ratio 11.7, Glucose 146 H, Calcium 9.2, Total Bilirubin 0.82, AST 14, ALT 13, AlkalinePhosphatase 75, Total Protein 7.0, Albumin 3.6, Globulin 3.3, Albumin/Globulin Ratio 1.1, Lipase 18 05/16/25 17:28: Urine Color Yellow, Urine Clarity Clear, Urine pH 6.0, Ur Specific [place] 1.010, Urine Protein 30 H, Urine Glucose (UA) Normal, Urine Ketones Negative, Urine Occult Blood 10 H, Urine Nitrite Negative, Urine Bilirubin Negative, Urine Urobilinogen Normal, Ur Leukocyte Esterase 25 H, UrineRBC 0-5 SEEN, Urine WBC 0- 5 SEEN, Ur Squamous Epith Cells 0-5 SEEN, Urine Bacteria 0 SEEN, Urine Mucus 0 SEEN Micro: Microbiology 05/16/25 15:40 Stool Stool Occult Blood (MARVIN) - Final Occult Blood Positive Imaging Radiology Impression Abdomen/Pelvis CT 05/16/25 16:27 IMPRESSION: Interval development of moderate right intrahepatic ductal dilatation of uncertain etiology. No definitive obstructing mass or stone in the right hepatic duct. Left biliaryintrahepatic ducts normal. Cholelithiasis. No definitive choledocholithiasis. Reading Location: [place] [address] Gallbladder Ultrasound 05/16/25 16:59 IMPRESSION: Cholelithiasis. No evidence for acute cholecystitis. Mild intra and extrahepatic biliary ductal dilatation, and prominence of the main pancreatic duct. No discrete obstructing mass or choledocholithiasis appreciated. MRCP may be helpful. Mild diffuse hepatic steatosis. Small benign-appearing hepatic cysts. Reading Location: [facility] [place] Assessment & Plan Assessment/Plan (1) COPD (chronic obstructive pulmonary disease): (2) JORGE (obstructive sleep apnea): (3) HTN (hypertension): (4) CHF (congestive heart failure): (5) Fibromyalgia: (6) Smoking greater than 30 pack years: (7) Cholelithiases: PLAN: Plan 1 cholelithiasis?admit patient to general medical floor, consult Dr. Tadeo gastroenterology. Make patient n.p.o., IV normal saline rate 125 cc/h, will addDilaudid 1 mg IV every 3 hours as needed for severe pain. Repeat CMP, CBC in a.m. 2. Hypertension?continue routine home medication 3. Smoking history?cessation encouraged may offer nicotine patch if patient requests 4. COPD?continue inhalation treatments per routine at home care and may add oxygen as needed here to maintain saturation greater than 90%. 5. DVT prophylaxis?low molecular weight heparin 6. CODE STATUS full verified Charges/Coding Visit Charges Inpatient E&M: 15013 Init Hosp L2 05/16/252025 <Electronically signed by Zachary Coffey MD> Cosigner Signature (if applicable): CC: Dr. Claudine Mallory DO; Dr. Zachary Coffey MD~ Signed [facility] Work Phone: 1(887) 685-436909-29-2025 History and physical note [facility] Medical Records Department [address] [place] [address] History & Physical Exam 05/16/252006 MR#: [id number] Acct: [id number] Name: NORA GRANDE Rep #:[id number] : 1955 70 From: Zachary Coffey MD PCP: Dr. Claudine Mallory DO Status:REG ER Location: ED HPI - General General Date of Admission: 05/16/25 Date of Service: 05/16/25 Chief Complaint: Abdominal pain HPI Narrative NORA GRANDE, is a 70 F who presents chief complaint of abdominal pain. Onset of symptoms began this this past with epigastric pain that radiated to the left side of her abdomen. Symptomshave progressed and on Friday she had blood in her stool. Patient admits to decrease in appetite butno nausea or vomiting. Pain is wax and wane but apparently got worse today so she came to the ER for evaluation. Patient has significant past medical historyof COPD, hypertension, CHF and fibromyalgia. Laboratory studies show white blood cell count 12,000, hemoglobin 14.6, hemoglobin 44, platelets 292, sodium 134, potassium 3.5, chloride 99, bicarb 21.6, BUN 14, creatinine 1.17, glucose 146, AST 14, ALT 13, lipase 18. Ultrasound gallbladder was positive for cholelithiasis without obstruction showing mild intra and hepatic biliary duct dilatation. CT abdomen and pelvis shows no definitive stone obstruction howevershe does show multiple gallstones. Dr. Tadeo was notified by ER physician and agreed to do MRCP on this patient. She will be admitted to general medical floor made n.p.o. with IV fluids and pain medication as necessary. PFSH Medical History Hx of emotional problems Hormone deficiency Back problem HTN (hypertension) History of skin cancer CHF (congestive heart failure) Fibromyalgia Tobacco use Home Medications ?Medication ?Instructions ?Recorded ?Last Taken ?Type clonazepam 1 mg tablet 1 mg PO QHS 10/18/16 Unknown History multivitamin,nb-erom-vhwxtokc 27 1 tab PO DAILY Unknown History mg-0.4 mg tablet buspirone 15 mg tablet mg PO BID 10/09/23 Unknown H istory cyclobenzaprine 10 mg tablet mg PO BID 10/09/23 Unknow n History olanzapine 15 mg tablet mg PO QHS 10/09/23 Unknown H istory duloxetine 30 mg capsule,delayed 30 mg PO QDAY 4 Unknown History release duloxetine 60 mg capsule,delayed 60 mg PO QDAY 4 Unknown History release losartan 50 mg tablet 50 mg PO QDAY 10/29/23 Unkno wn History potassium chloride 20 mEq 20 meq PO TID 10/29/23 Unkno wn History tablet,extended release(part/cryst) albuterol sulfate 90 mcg/actuation 2 puff inhalation Q 6H PRN 05/04/24 Unknown Rx aerosol inhaler shortness of breath or wheez ing #18 grams meclizine 25 mg tablet 50 mg PO BID 07/02/24 Unknow n History fluticasone fur. 200 mcg-umeclid 1 inh inhalation MYRON Y #60 ea 11/22/24 Unknown Rx 62.5 mcg-vilant 25 mcg inhalat.powder (Trelegy Ellipta) Allergy/AdvReac Type Severity Reaction Status Date / Time codeine Allergy Unknown Verified 05/16/25 13:56 ciprofloxacin (From Cipro) AdvReac Vomiting Verified 05/16/25 13:56 Family History Sister Diabetes Brother Diabetes Heart disease Father Heart disease Surgical History History of left hip replacement Hx of hysterectomy History of carpal tunnel release of both wrists Social History household members: none Smoking Status: Current every day smoker tobacco type: cigarettes and e-cigarettes Tobacco: How many years used: 40 Electronic Cigarette Use: with nicotine how long ago did patient quit smokin quit smoking cigarettes, 1ppd vaping currently second hand exposure: Yes ROS Constitutional Constitutional: Denies chills or fever(s) Eyes Eyes: Denies blurry vision ENT HEENT: Denies abnormal hearing Cardiovascular Cardiovascular: Denies chest pain Respiratory/Chest Respiratory/Chest: Denies shortness of breath at rest Gastrointestinal Gastrointestinal: Reports abdominal pain, dyspepsia and hematochezia; Denies diarrhea Genitourinary Genitourinary: Denies dysuria Musculoskeletal Musculoskeletal: Denies back pain Integumentary Integumentary: Denies jaundice Neurologic Neurologic: Denies abnormal gait Psychiatric Psychiatric: Denies anxiety Vital Signs Vital Signs Vital Signs: 05/16/25 13:56 05/16/25 14:45 05/16/25 15:34 Temperature 98.4 F Temperature Source Oral Pulse Rate 97 80 80 Respiratory Rate 18 18 17 Blood Pressure 160/98 H 139/105 H 141/99 H Blood Pressure Mean 118 116 113 Pulse Ox 98 100 100 Oxygen Delivery Method Room Air Room Air Room Air 05/16/25 16:40 05/16/25 17:00 05/16/25 18:00 Temperature Temperature Source Pulse Rate 81 67 83 Respiratory Rate 16 16 17 Blood Pressure 120/89 H 140/70 H 163/94 H Blood Pressure Mean 99 93 117 Pulse Ox 97 97 99 Oxygen Delivery Method 05/16/25 19:00 Temperature Temperature Source Pulse Rate 87 Respiratory Rate 16 Blood Pressure 143/91 H Blood Pressure Mean 108 Pulse Ox 100 Oxygen Delivery Method Weight Weight: 140 lb Body Mass Index (BMI) 25.6 Physical Exam Const oriented x3 General Appearance: cooperative and well developed HEENT head/scalp atraumatic Eyes PERRL Neck no lymphadenopathy Lymph Lymphatic: no lymphadenopathy noted Resp normal respiratory effort, normal air movement and clear to auscultation bilaterally Cardio regular rate, regular rhythm, S1 normal heart sound and S2 normal heart sound GI GI Narrative: Positive bowel sounds Palpation: tender epigastric and LUQ Extremity normal capillary refill and no clubbing, cyanosis or edema Skin General Skin Exam: no breakdown Neuro no focal motor deficits and no sensory deficits noted Psych thought process normal, cooperative and affect normal Results Lab / Micro Data 05/16/25 14:30 05/16/25 14:30 Labs: Laboratory Results - last 24 hr 05/16/25 14:30: WBC 12.0 H, RBC 4.99, Hgb 14.6, Hct 44.0, MCV 88.2, MCH 29.3, MCHC 33.2, RDW Std Deviation 44.4 H, RDW Coeff of Nikolas 13.8, Plt Count 292, MPV 10.2, Immature Gran % (Auto) 0.600, Neut %(Auto) 65.6, Lymph % (Auto) 21.9, Jackson % (Auto) 10.2 H, Eos % (Auto) 0.9, Baso % (Auto) 0.8, Absolute Neuts (auto) 7.9 H, Absolute Lymphs (auto) 2.63, Nucleated RBC % 0, Sodium 134, Potassium 3.5, Chloride 99, Carbon Dioxide 21.6, Anion Gap 13, BUN 14, Creatinine 1.17, Estim Creat Clear Calc 39.17 L, Est GFR (MDRD) Non-Af 50 L, BUN/Creatinine Ratio 11.7, Glucose 146 H, Calcium 9.2, Total Bilirubin 0.82, AST 14, ALT 13, AlkalinePhosphatase 75, Total Protein 7.0, Albumin 3.6, Globulin 3.3, Albumin /Globulin Ratio 1.1, Lipase 18 05/16/25 17:28: Urine Color Yellow, Urine Clarity Clear, Urine pH 6.0, Ur Specific [place] 1.010, Urine Protein 30 H, Urine Glucose (UA) Normal, Urine Ketones Negative, Urine Occult Blood 10 H, UrineNitrite Negative, Urine Bilirubin Negative, Urine Urobilinogen Normal, Ur Leukocyte Esterase 25 H, U rineRBC 0-5 SEEN, Urine WBC 0-5 SEEN, Ur Squamous Epith Cells 0-5 SEEN, Urine Bacteria 0 SEEN, Urine Mucus 0 SEEN Micro: Microbiology 05/16/25 15:40 Stool Stool Occult Blood (MARVIN) - Final Occult Blood Positive Imaging Radiology Impression Abdomen/Pelvis CT 05/16/25 16:27 IMPRESSION: Interval development of moderate right intrahepatic ductal dilatation of uncertain etiology. No definitive obstructing mass or stone in the right hepatic duct. Left biliaryintrahepatic ducts normal. Cholelithiasis. No definitive choledocholithiasis. Reading Location: [place] [address] Gallbladder Ultrasound 05/16/25 16:59 IMPRESSION: Cholelithiasis. No evidence for acute cholecystitis. Mild intra and extrahepatic biliary ductal dilatation, and prominence of the main pancreatic duct. No discrete obstructing mass or choledocholithiasis appreciated. MRCP may be helpful. Mild diffuse hepatic steatosis. Small benign-appearing hepatic cysts. Reading Location: [id number] Assessment & Plan Assessment/Plan (1) COPD (chronic obstructive pulmonary disease): (2) JORGE (obstructive sleep apnea): (3) HTN (hypertension): (4) CHF (congestive heart failure): (5) Fibromyalgia: (6) Smoking greater than 30 pack years: (7) Cholelithiases: PLAN: Plan 1 cholelithiasis?admit patient to general medical floor, consult Dr. Tadeo gastroenterology. Make patient n.p.o., IV normal saline rate 125 cc/h, will addDilaudid 1 mg IV every 3 hours as needed forsevere pain. Repeat CMP, CBC in a.m. 2. Hypertension?continue routine home medication 3. Smoking history?cessation encouraged may offer nicotine patch if patient requests 4. COPD?continue inhalation treatments per routine at home care and may add oxygen as needed here to maintain saturation greater than 90%. 5. DVT prophylaxis?low molecular weight heparin 6. CODE STATUS full verified Charges/Coding Visit Charges Inpatient E&M: 21625 Init Hosp L2 05/16/252025 Cosigner Signature (if applicable): CC: Dr. Claudine Mallory, DO; Dr. Zachary Coffey MD~ Signed [facility]09-29-2025 [facility] Medical Records Department [address] [place] [address] History Physical Exam 05/16/252006 MR#: [id number] Acct: [id number] Name: NORA GRANDE Rep #: [id number] : 1955 70 From: Zachary Coffey MD PCP: Dr. Claudine Mallory DO Status:REG ER Location: ED HPI - General General Date of Admission: 05/16/25 Date of Service: 05/16/25 Chief Complaint: Abdominal pain HPI Narrative NORA GRANDE, is a 70 F who presents chief complaint of abdominal pain. Onset of symptoms began this this past with epigastric pain that radiated to the left side of her abdomen. Symptoms have progressed and on Friday she had blood in her stool. Patient admits to decrease in appetite but no nausea or vomiting. Pain is wax and wane but apparently got worse today so she came to the ER for evaluation. Patient has significant past medical history of COPD, hypertension, CHF and fibromyalgia. Laboratory studies show white blood cell count 12,000, hemoglobin 14.6, hemoglobin 44, platelets 292, sodium 134, potassium 3.5, chloride 99, bicarb 21.6, BUN 14, creatinine 1.17, glucose 146, AST 14, ALT 13, lipase 18. Ultrasound gallbladder was positive for cholelithiasis without obstruction showing mild intra and hepatic biliary duct dilatation. CT abdomen and pelvis shows no definitive stone obstruction however she does show multiple gallstones. Dr. Tadeo was notified by ER physician and agreed to do MRCP on this patient. She will be admitted to general medical floor made n.p.o. with IV fluids and pain medication as necessary. PFSH Medical History Hx of emotional problems Hormone deficiency Back problem HTN (hypertension) History of skin cancer CHF (congestive heart failure) Fibromyalgia Tobacco use Home Medications ???Medication ???Instructions ???Recorded ???Last Taken ???Type clonazepam 1 mg tablet 1 mg PO QHS 10/18/16 Unknown Histo ry multivitamin,nq-zpdr-rouqtucg 27 1 tab PO DAILY 10/18/16 Unknown Hi story mg-0.4 mg tablet buspirone 15 mg tablet mg PO BID 10/09/23 Unknown History cyclobenzaprine 10 mg tablet mg PO BID 10/09/23 Unknown History olanzapine 15 mg tablet mg PO QHS 10/09/23 Unknown History duloxetine 30 mg capsule,delayed 30 mg PO QDAY 10/29/23 Unknown His tory release duloxetine 60 mg capsule,delayed 60 mg PO QDAY 10/29/23 Unknown His tory release losartan 50 mg tablet 50 mg PO QDAY 10/29/23 Unknown His tory potassium chloride 20 mEq 20 meq PO TID 10/29/23 Unknown His tory tablet,extended release(part/cryst) albuterol sulfate 90 mcg/actuation 2 puff inhalation Q6H PRN Unknown Rx aerosol inhaler shortness of breath or wheezing #18 grams meclizine 25 mg tablet 50 mg PO BID 07/02/24 Unknown Hist ory fluticasone fur. 200 mcg-umeclid 1 inh inhalation DAILY #60 ea /03/11 Unknown Rx 62.5 mcg-vilant 25 mcg inhalat.powder (Trelegy Ellipta) Allergy/AdvReac Type Severity Reaction Status Date / Time codeine Allergy Unknown Verified 05/16/25 13:56 ciprofloxacin (From Cipro) AdvReac Vomiting Verified 05/16/25 13:56 Family History Sister Diabetes Brother Diabetes Heart disease Father Heart disease Surgical History History of left hip replacement Hx of hysterectomy History of carpal tunnel release of both wrists Social History household members: none Smoking Status: Current every day smoker tobacco type: cigarettes and e-cigarettes Tobacco: How many years used: 40 Electronic Cigarette Use: with nicotine how long ago did patient quit smokin quit smoking cigarettes, 1ppd vaping currently second hand exposure: Yes ROS Constitutional Constitutional: Denies chills or fever(s) Eyes Eyes: Denies blurry vision ENT HEENT: Denies abnormal hearing Cardiovascular Cardiovascular: Denies chest pain Respiratory/Chest Respiratory/Chest: Denies shortness of breath at rest Gastrointestinal Gastrointestinal: Reports abdominal pain, dyspepsia and hematochezia; Denies diarrhea Genitourinary Genitourinary: Denies dysuria Musculoskeletal Musculoskeletal: Denies back pain Integumentary Integumentary: Denies jaundice Neurologic Neurologic: Denies abnormal gait Psychiatric Psychiatric: Denies anxiety Vital Signs Vital Signs Vital Signs: 05/16/25 13:56 05/16/25 14:45 05/16/25 15:34 Temperature 98.4 F Temperature Source Oral Pulse Rate 97 80 80 Respiratory Rate 18 18 17 Blood Pressure 160/98 H 139/105 H 141/99 H Blood Pressure Mean 118 116 113 Pulse Ox 98 100 100 Oxygen Delivery Method Room Air Room Air Room Air 05/16/25 16:40 05/16/25 17:00 (more content not included)...[facility]09-29-2025 Radiology Diagnostic study note [facility] Imaging Services [address] [place] [address] Gallbladder MR#: [id number] Acct: [id number] Name: NORA GRANDE Rep #: [id number] : 1955 F 70 From: Alan Rubio MD PCP: Dr. Claudine Mallory, DO Status: REG ER Study:Gallbladder Date of Exam: 05/16/25 Exam# [id number] Ordering Dr: Dmitry Neal MD PROCEDURE: US GALLBLADDER 05/16/2025 REASON FOR EXAM: DILATED DUCTS ON CT TECHNIQUE: Procedure Code: USGB Modality: US Procedure: GALLBLADDER COMPARISON: Abdominal CT same day 05/16/2025. FINDINGS: Liver: Grossly normal in size. Mild diffuse increased echogenicity of the hepatic parenchyma compatible with fatty infiltration. No suspicious focal lesion. Benign-appearing 10 mm cyst in the right lobe. Gallbladder: Cholelithiasis. No significant wall thickening or pericholecystic fluid. There is mildintra and extrahepatic biliary ductal dilatation. No sonographic Nice's sign was elicited. Common bile duct: Mildly dilated, measuring 7-8 mm in diameter. Pancreas: Mild dilatation of the main pancreatic duct measuring 4 mm. Visualized portions of the pancreatic head/body otherwise unremarkable with no discrete mass lesion. Other: Visualized right kidney is unremarkable. No right upper quadrant ascites. US/Gallbladder IMPRESSION: Cholelithiasis. No evidence for acute cholecystitis. Mild intra and extrahepatic biliary ductal dilatation, and prominence of the main pancreatic duct. No discrete obstructing mass or choledocholithiasis appreciated. MRCP may be helpful. Mild diffuse hepatic steatosis. Small benign-appearing hepatic cysts. Reading Location: [id number] CC: Dr. Tamara Neal MD; Dr. Claudine Mallory DO ~ Angle Roll Operator: Signed [facility]09-29-2025 Radiology Diagnostic study note [facility] Imaging Services [address] [place] [address] [id number] Abdomen/Pelvis W IV Cont ONLY MR#: [id number] Acct: [id number] Name: NORA GRANDE Rep #: [id number] : 1955 F 70 From: Marvin Weems MD PCP: Dr. Claudine Mallory DO Status: REG ER Study:Abdomen/Pelvis W IV Cont ONLY Date of E xam: 05/16/25 Exam# [id number] Ordering Dr: Dmitry Neal MD PROCEDURE: ABDOMEN/PELVIS W IV CONT ONLY 05/16/2025 REASON FOR EXAM: ABD PAIN, BLOOD IN STOOL, CONSTIPATED TECHNIQUE: Procedure Code: CTABDPELIV Modality: CT Procedure: ABDOMEN/PELVIS W IV CONT ONLY Coronal and Sagittal reconstruction series were provided. CONTRAST: Isovue 370 VOLUME: 90 mL One or more dose reduction techniques were used (e.g., Automated exposure control, adjustment of the mA and/or kV according to patient size, use of iterative reconstruction technique. RADIATION DOSE SUMMARY: CTDlvol: 26 mGy DLP: DLP 7 mGycm COMPARISON: December 2020 FINDINGS: Lung bases: Negative. ABDOMEN Liver: Right hepatic simple cysts, stable. Biliary system: Moderately prominent right-sided intrahepatic ducts. No focal obstructing lesion. Left-sided intrahepatic ducts negative. This is new. Common hepatic duct and common bile duct otherwise negative. Gallbladder: Contains stones. Negative for cholecystitis. Spleen: Negative. Pancreas: Surgical sam adjacent to the tail of the pancreas. Adrenals: Negative. Kidneys: Negative. Negative for kidney stones, cysts or masses. Bowel: Moderate increased stool throughout the colon. Negative for small or large-bowel obstruction. Appendix: The appendix is not identified. There is no inflammatory process identified in the right lower quadrant to suggest appendicitis. Vasculature: Moderate atherosclerotic vascular calcifications of the abdominal aorta and its branches. Peritoneum / Retroperitoneum: Negative. PELVIS Lymph nodes: Negative for inguinal or iliac adenopathy. Bladder: Urinary bladder negative. Reproductive Organs: Hysterectomy. Bones and Soft Tissues: Marked degenerative disc disease and facet disease mid and lower lumbar spine. Otherwise age appropriate appearance off the lumbar spine hips and pelvis. CT/Abdomen/Pelvis W IV Cont ONLY IMPRESSION: Interval development of moderate right intrahepatic ductal dilatation of uncertain etiology. No definitive obstructing mass or stone in the right hepatic duct. Left biliaryintrahepatic ducts normal. Cholelithiasis. No definitive choledocholithiasis. Reading Location: [place] [address] CC: Dr. Tamara Neal MD; Dr. Claudine Mallory DO ~ Angle Roll Operator: Signed [facility]09-29-2025 Discharge summary Author Tamara Val [facility] Note Date/Time May 17, 2025 12:25am [facility] Medical Records Department [address] [place] [address] Emergency Department Summary 05/16/25 MR#: [id number] Acct: [id number] Name: NORA GRANDE Rep #:[id number] : 1955 70 From: Tamara Neal MD PCP: Dr. Claudine Mallory DO Status:ADM IN Location: [place] [id number] HPI HPI - GI History of Present Illness Chief Complaint: Abd Pain Narrative Narrative: Patient is a 70-year-old female presenting to the emergency department for abdominal pain that started on . Patient has a past medical history of COPD, hypertension, CHF, fibromyalgia. Patient states that on she started to have left sided abdominal pain. States that she cannot remember the last time that she had a normal bowel movement. Reports that on Friday she had a small hard bowel movement that had dark blood in it. She endorses some nausea with no vomiting. States the abdominal pain continued yesterday and today. Denies any fever, chills, chest pain, shortness of breath, dysuria or hematuria. Denies ever having abdominal pain like this in the past. She does not take anything for her symptoms. No BM yesterday or today. She is not on any OAC. Denies any alcohol or NSAID use. PFSH PFSH Medical History Hx of emotional problems Hormone deficiency Back problem HTN (hypertension) History of skin cancer CHF (congestive heart failure) Fibromyalgia Tobacco use Home Medications ?Medication ?Instructions ?Recorded ?Last Taken ?Type clonazepam 1 mg tablet 1 mg PO QHS anxiety 10/18/16 Unknown History multivitamin,qc-ofzv-htpganra 27 1 tab PO DAILY supple ment 10/18/16 Unknown History mg-0.4 mg tablet buspirone 15 mg tablet 15 mg PO BID mood 10/09/23 U nknown History cyclobenzaprine 10 mg tablet 10 mg PO BID muscle spasm 10/09/23 Unknown History olanzapine 15 mg tablet 15 mg PO QHS mood 10/09/23 U nknown History duloxetine 30 mg capsule,delayed 30 mg PO QDAY mood Unknown History release duloxetine 60 mg capsule,delayed 60 mg PO QDAY mood Unknown History release losartan 50 mg tablet 50 mg PO QDAY bp 10/29/23 Un known History potassium chloride 20 mEq 20 meq PO TID supplement Unknown History tablet,extended release(part/cryst) albuterol sulfate 90 mcg/actuation 2 puff inhalation Q 6H PRN 05/04/24 Unknown Rx aerosol inhaler shortness of breath or wheez ing #18 grams meclizine 25 mg tablet 50 mg PO BID vertigo 4 Unknown History fluticasone fur. 200 mcg-umeclid 1 inh inhalation MYRON Y sob #60 ea 11/22/24 Unknown Rx 62.5 mcg-vilant 25 mcg inhalat.powder (Trelegy Ellipta) Allergy/AdvReac Type Severity Reaction Status Date / Time codeine Allergy Unknown Verified 05/16/25 13:56 ciprofloxacin (From Cipro) AdvReac Vomiting Verified 05/16/25 13:56 Family History Sister Diabetes Brother Diabetes Heart disease Father Heart disease Surgical History History of left hip replacement Hx of hysterectomy History of carpal tunnel release of both wrists Social History household members: none Smoking Status: Current every day smoker tobacco type: cigarettes and e- cigarettes Tobacco: How many years used: 40 Electronic Cigarette Use: with nicotine how long ago did patient quit smokin quit smoking cigarettes, 1ppd vaping currently second hand exposure: Yes ROS ROS ED ROS Narrative see HPI EXAM Physical Exam Narrative Exam Narrative: Vital signs: Reviewed General: Alert and orientedx3. No acute distress HEENT: Head is normocephalic and atraumatic, sinuses nontender, pupils equal round and reactive. Nares are patent. Oropharynx and throat exams normal. Neck: Supple without lymphadenopathy nontender Cardiovascular: Regular rate and rhythm, no murmurs. No rubs or gallops. Normal S1 and S2 Respiratory: Clear to auscultation bilaterally. No wheezes, rales, rhonchi Abdominal: Soft and diffusely tender to palpation throughout. Normal bowel sounds. No guarding or rebound. : done with language interpreter at bedside. No hemorrhoids or fissures noted. No gross blood on internal rectal exam. Extremities: No tenderness. No bruising. Normal range of motion. Normal sensation. Skin: No rash or redness. Neurological: Cranial nerves II through XII are grossly intact. Normal strengthand sensation. Normal cerebellar function The rest of the physical exam is unremarkable Const Vital Signs: 05/16/25 13:56 05/16/25 14:45 05/16/25 15:34 Temperature 98.4 F Temperature Source Oral Pulse Rate 97 80 80 Respiratory Rate 18 18 17 Blood Pressure 160/98 H 139/105 H 141/99 H Blood Pressure Mean 118 116 113 Pulse Ox 98 100 100 Oxygen Delivery Method Room Air Room Air Room Air 05/16/25 16:40 05/16/25 17:00 05/16/25 18:00 Temperature Temperature Source Pulse Rate 81 67 83 Respiratory Rate 16 16 17 Blood Pressure 120/89 H 140/70 H 163/94 H Blood Pressure Mean 99 93 117 Pulse Ox 97 97 99 Oxygen Delivery Method 05/16/25 19:00 05/16/25 20:00 Temperature Temperature Source Pulse Rate 87 87 Respiratory Rate 16 17 Blood Pressure 143/91 H Blood Pressure Mean 108 Pulse Ox 100 97 Oxygen Delivery Method Room Air MDM MDM MDM Narrative Medical decision making narrative: Patient is a 70-year-old female presenting to the emergency department for abdominal pain, constipation and 1 episode of blood in her stool. Patient was seen and examined. Vitals are stable. Patient resting in bed comfortably no acute distress. Differential includes but is not limited to: Diverticulitis, hemorrhoids, upper GI bleed including peptic ulcer disease Patient offered analgesia and antiemetic however declines both at initial time of evaluation. Labs were ordered prior to me seeing the patient. CBC with mildleukocytosis of 12 and stable hemoglobin of 14.6. CMP with no significant normalities. Lipase within normal limits. Urinalysis with leukocyte esterase and occult blood, no other signs of infection. CT of the abdomen was ordered and shows interval development of moderate right intrahepatic ductal dilatation of uncertain etiology. No definitive obstructing mass or stone in the right hepatic duct. Left biliary intrahepatic ducts normal. Cholelithiasis with no definitive choledocholithiasis. Given these findings, right upper quadrant ultrasound was ordered. No additional findings on this. Fecal occult positive. Given these findings, discussed with on-call alarm signal operator, Dr. Tadeo, whostates with the abdominal pain and no other findings and MRCP is warranted. Discussed with patient and she is agreeable with admission. [facility]. Clinical impression: GI bleed abdominal pain Intrahepatic ductal dilatation History & Record Review Discussion w/independent historian: Patient Additional record(s) reviewed:: Prior labs Lab Data Attestation: I reviewed the patient's lab results. Labs: Laboratory Results - last 24 hr 05/16/25 05/16/25 14:30 17:28 WBC 12.0 H RBC 4.99 Hgb 14.6 Hct 44.0 MCV 88.2 MCH 29.3 MCHC 33.2 RDW Std Deviation 44.4 H RDW Coeff of Nikolas 13.8 Plt Count 292 MPV 10.2 Immature Gran % (Auto) 0.600 Neut % (Auto) 65.6 Lymph % (Auto) 21.9 Jackson % (Auto) 10.2 H Eos % (Auto) 0.9 Baso % (Auto) 0.8 Absolute Neuts (auto) 7.9 H Absolute Lymphs (auto) 2.63 Nucleated RBC % 0 Sodium 134 Potassium 3.5 Chloride 99 Carbon Dioxide 21.6 Anion Gap 13 BUN 14 Creatinine 1.17 Estim Creat Clear Calc 39.17 L Est GFR (MDRD) Non-Af 50 L BUN/Creatinine Ratio 11.7 Glucose 146 H Calcium 9.2 Total Bilirubin 0.82 AST 14 ALT 13 Alkaline Phosphatase 75 Total Protein 7.0 Albumin 3.6 Globulin 3.3 Albumin/Globulin Ratio 1.1 Lipase 18 Urine Color Yellow Urine Clarity Clear Urine pH 6.0 Ur Specific [place] 1.010 Urine Protein 30 H Urine Glucose (UA) Normal Urine Ketones Negative Urine Occult Blood 10 H Urine Nitrite Negative Urine Bilirubin Negative Urine Urobilinogen Normal Ur Leukocyte Esterase 25 H Urine RBC 0-5 SEEN Urine WBC 0-5 SEEN Ur Squamous Epith Cells 0-5 SEEN Urine Bacteria 0 SEEN Urine Mucus 0 SEEN Radiography Diagnostic Testing: Clinical Impression(s) from Imaging Studies Abdomen/Pelvis CT 05/16/25 16:27 IMPRESSION: Interval development of moderate right intrahepatic ductal dilatation of uncertain etiology. No definitive obstructing mass or stone in the right hepatic duct. Left biliaryintrahepatic ducts normal. Cholelithiasis. No definitive choledocholithiasis. Reading Location: [place] [address] Gallbladder Ultrasound 05/16/25 16:59 IMPRESSION: Cholelithiasis. No evidence for acute cholecystitis. Mild intra and extrahepatic biliary ductal dilatation, and prominence of the main pancreatic duct. No discrete obstructing mass or choledocholithiasis appreciated. MRCP may be helpful. Mild diffuse hepatic steatosis. Small benign-appearing hepatic cysts. Reading Location: [id number] Discharge Plan Disposition Disposition: Acute Care Hospital [facility] Discharge Date/Time: 05/16/25 21:57 What to do if you have Problems For any increased pain, shortness of breath, bleeding, nausea or vomiting, chestpain, or any unexpected problems, contact your Primary Care Provider. Call [facility] ([phone]) or report to the closest Emergency Room. Call 911 if necessary. 05/17/255 <Electronically signed by Tamara Neal MD> Cosigner Signature (if applicable): CC: Dr. Claudine Mallory, DO ~ Signed [facility] Work Phone: [phone]) 904-795209-29-2025 NoteHNO ID: [id number] Author: CHASE CRAWFORD MD Service: ? Author Type: Physician Type: Progress Notes Filed: 05/16/2025 13:50 Note Text: Express Care Triage Note: Patient presents to the express care with complaint of left abdominal pain, blood in stool, and cough over the last 4 days. She is uncomfortable with transitions. She chooses ER evaluation and will go to [facility] ED.[facility]03-07-2024 Procedure [facility]01-11-2022 [facility]10-05-2021 [facility]08-03-2021 [facility]07-07-2021 [facility] 02-20-2021 [facility]07-06-2021 [facility]06-05-2021 [facility]06-05-2021 NoteHNO ID: [id number] Author: Interface Note Service: ? Author Type: ? Type: Progress Notes Filed: 01/20/2021 5:50 AM Note Text: Epic Scheduled Downtime: 01/20/2021 1:00:00 AM to 01/20/2021 5:27:00 [facility]06-04-2021 [facility]06-04-2021 [facility]06-03-2021 [facility]06-03-2021 Note [facility]06-02-2021 [facility] 2021 [facility]06-02-2021 [facility]06-02-2021 [facility]06-01-2021 [facility]06-01-2021 [facility]05-31-2021 [facility]05-31-2021 [facility]05-30-2021 Note [facility]05-30-2021 [facility] 01-13-2021 [facility]05-28-2021 [facility]05-27-2021 [facility]05-26-2021 [facility]05-26-2021 NoteHNO ID: [id number] Author: Ranjan Herrera MD Service: Orthopaedic Surgery Author Type: Physician Type: Plan of Care Filed: 01/10/2021 7:06 AM Note Text: OK for discharge. Hip repair at a later date. Continue nonoperative treatment R [facility]05-25-2021 NoteHNO ID: [id number] Author: Castillo Schaefer RN Service: Nursing Author Type: Registered Nurse Type: Nursing Progress Note Filed: 01/09/2021 12:07 PM Note Text: Physical [facility]05-24-2021 [facility]05-23-2021 [facility]05-22-2021 [facility]05-22-2021 [facility]05-21-2021 Note [facility]05-21-2021 [facility] 01-04-2021 [facility]05-19-2021 [facility]05-19-2021 [facility]05-18-2021 [facility]05-18-2021 [facility]05-18-2021 [facility]05-17-2021 [facility]05-16-2021 Note [facility]05-16-2021 [facility] 12-30-2020 [facility]05-15-2021 [facility]05-14-2021 [facility]05-14-2021 [facility]05-14-2021 [facility]05-13-2021 [facility]05-13-2021 [facility]05-13-2021 Note [facility]05-12-2021 [facility] 12-27-[facility]10[facility] Author Connor Friend [facility] Note Date/Time May 18, 2025 2: 17pm [facility] Medical Records Department [address] [place] [address] Consultation - GI 05/17/251948 MR#: [id number] Acct: [id number] Name: NORA GRANDE Rep #:[id number] : 1955 70 From: Connor Tadeo DO PCP: Dr. Claudine Mallory DO Status:ADM IN [facility] Consult Data Date of Consult: 05/17/25 HPI Narrative Reason for Consultation: abdominal pain HPI Narrative: NORA GRANDE, is a 70 F who presented to the emergency department for abdominal pain. Patient has a past medical history of COPD, hypertension, CHF,fibromyalgia. Patient states that on she started to have left sided abdominal pain. She has a history of chronic constipation. Reports that on Friday she had a small hard bowel movement that had dark blood in it. She endorses some nausea with no vomiting. States the abdominal pain continuedyesterday and today. Denies any fever, chills, chest pain, shortness of breath,dysuria or hematuria. Denies ever having abdominal pain like this in the past. She does not take anything for her symptoms. No BM yesterday or today. She is not on any OAC. Denies any alcohol or NSAID use. CT/Abdomen/Pelvis: Interval development of moderate right intrahepatic ductal dilatation of uncertain etiology. No definitive obstructing mass or stone in the right hepatic duct. Left biliaryintrahepatic ducts normal. Cholelithiasis. No definitive choledocholithiasis. US/Gallbladder: Cholelithiasis. No evidence for acute cholecystitis. Mild intra and extrahepatic biliary ductal dilatation, and prominence of the main pancreatic duct. No discrete obstructing mass or choledocholithiasis appreciated. MRCP may be helpful. Mild diffuse hepatic steatosis. Small benign-appearing hepatic cysts MRCP is pending COUNT INCLUDES [facility] Medical History Hx of emotional problems Hormone deficiency Back problem HTN (hypertension) History of skin cancer CHF (congestive heart failure) Fibromyalgia Tobacco use Home Medications ?Medication ?Instructions ?Recorded ?Last Taken ?Type clonazepam 1 mg tablet 1 mg PO QHS anxiety 10/18/16 Unknown History multivitamin,zk-wlas-tbtilkkj 27 1 tab PO DAILY supple ment 10/18/16 Unknown History mg-0.4 mg tablet buspirone 15 mg tablet 15 mg PO BID mood 10/09/23 U nknown History cyclobenzaprine 10 mg tablet 10 mg PO BID muscle spasm 10/09/23 Unknown History olanzapine 15 mg tablet 15 mg PO QHS mood 10/09/23 U nknown History duloxetine 30 mg capsule,delayed 30 mg PO QDAY mood Unknown History release duloxetine 60 mg capsule,delayed 60 mg PO QDAY mood Unknown History release losartan 50 mg tablet 50 mg PO QDAY bp 10/29/23 Un known History potassium chloride 20 mEq 20 meq PO TID supplement Unknown History tablet,extended release(part/cryst) albuterol sulfate 90 mcg/actuation 2 puff inhalation Q 6H PRN 05/04/24 Unknown Rx aerosol inhaler shortness of breath or wheez ing #18 grams meclizine 25 mg tablet 50 mg PO BID vertigo 4 Unknown History fluticasone fur. 200 mcg-umeclid 1 inh inhalation MYRON Y sob #60 ea 11/22/24 Unknown Rx 62.5 mcg-vilant 25 mcg inhalat.powder (Trelegy Ellipta) Allergy/AdvReac Type Severity Reaction Status Date / Time codeine Allergy Unknown Verified 05/16/25 13:56 ciprofloxacin (From Cipro) AdvReac Vomiting Verified 05/16/25 13:56 Family History Sister Diabetes Brother Diabetes Heart disease Father Heart disease Surgical History History of left hip replacement Hx of hysterectomy History of carpal tunnel release of both wrists Social History household members: none Smoking Status: Current every day smoker tobacco type: cigarettes and e- cigarettes Tobacco: How many years used: 40 Electronic Cigarette Use: with nicotine how long ago did patient quit smokin quit smoking cigarettes, 1ppd vaping currently second hand exposure: Yes Lab / Micro Data 05/17/25 03:15 05/17/25 03:15 Labs: Laboratory Results - last 24 hr 05/17/25 03:15: WBC 11.0, RBC 4.57, Hgb 13.4, Hct 39.3, MCV 86.0, MCH 29.3, MCHC34.1, RDW Std Deviation 42.9, RDW Coeff of Nikolas 13.7, Plt Count 279, MPV 10.3, Immature Gran % (Auto) 0.600, Neut % (Auto) 57.9, Lymph % (Auto) 25.6, Jackson % (Auto) 13.6 H, Eos % (Auto) 1.5, Baso % (Auto) 0.8, Absolute Neuts (auto) 6.4, Absolute Lymphs (auto) 2.82, Nucleated RBC % 0, Sodium 134, Potassium 3.5, Chloride 100, Carbon Dioxide 21.0, Anion Gap 13, BUN 13, Creatinine 1.03, Estim Creat Clear Calc 44.72 L, Est GFR (MDRD) Non-Af 58 L, BUN/Creatinine Ratio 12.8,Glucose 86, Calcium 8.4, Total Bilirubin 0.83, AST 16, ALT 11, Alkaline Phosphatase 82, Total Protein 6.2, Albumin 3.4, Globulin 2.8, Albumin/Globulin Ratio 1.2 Micro: Microbiology 05/16/25 15:40 Stool Stool Occult Blood (MARVIN) - Final Occult Blood Positive Assessment & Plan Assessment/Plan (1) Abnormal finding on imaging of liver: PLAN: 70-year-old female with an incidental finding of a double duct sign (mild dilation of both the biliary and pancreatic ducts) and an intact gallbladder. The absence of a visible obstructing mass, choledocholithiasis, and normal LFTs makes this a challenging diagnosis. Differential diagnoses include: * Benign etiology:?In older patients, mild dilation can sometimes be benign and not require intervention. Other possibilities include chronic pancreatitis or a periampullary diverticulum. * Malignancy:?The double duct sign, especially when found with a prominent pancreatic duct, suggests the possibility of pancreatic or ampullary malignancy, even without a visible mass on initial imaging. This warrants further investigation. * Post-cholecystectomy changes:?The patient's gallbladder is intact, so this is not a consideration. However, dilation in an older patient with a prior cholecystectomy is a known phenomenon. Plan * Further workup:?The imaging results warrant a higher-level investigation to rule out a subtle or developing malignancy. * MRCP (Magnetic Resonance Cholangiopancreatography):?Await MRCP * EUS (Endoscopic Ultrasound):?This procedure can provide high-resolution imaging of the pancreatic head, ampulla, and bile ducts, and allows for tissue sampling if a lesion is identified. Charges/Coding Visit Charges Inpatient E&M: 72544 Init Hosp L3 05/18/25 1417 <Electronically signed by Connor Tadeo DO> Cosigner Signature (if applicable): CC: Dr. Claudine Mallory DO~ Signed [facility] Work Phone: Consult note Author Jorge Og [facility] Note Date/Time May 18, 2025 12 :46pm [facility] Medical Records Department [address] [place] [address] Pre-Anesthesia Evaluation 05/18/25 1238 MR#: [id number] Acct: [id number] Name: NORA GRANDE Rep #:[id number] : 1955 70 From: Jorge Peguero PCP: Dr. Claudine Mallory DO Status:ADM IN Y Race: C Location: [facility] [place] [place] MS321 -1 ASA Classification* ASA Classification ASA Classification: 3 Assessment & Plan Anesthesia* Anesthesia Assessment Anesthesia Assessment: Discussed sedation and/or anesthesia options, risks, benefits, and alternatives with patient/parents/legal guardian/POA. Questions invited. The patient/parents/legal guardian/POA seems to understand and agrees to proceedwith anesthesia plan. Reviewed the physical assessment, medical history, allergy history and patient home medications list prior to surgery/procedure/anesthetic and documented any changes. Performed airway and anesthesia risk assessments. Anesthesia Type Anesthesia Type: General History Source History Obtained from:: Patient and Chart Anesthesia Focused Assessment* Temperature: 98.1 F Pulse Rate: 80 Blood Pressure: 134/76 Respiratory Rate: 16 Pulse Ox: 95 Oxygen Delivery Method: Room Air Airway Assessment Mouth opens: >3 cm Mallampati Score: III Teeth Condition: Chipped/Broken and Missing Labs Anesthesia Preop lab: CBC WBC, (4.4-11.0) 11.0 K/mm3 05/17/25, 03:15 RBC, (4.2-5.4) 4.57 M/mm3 05/17/25, 03:15 Hgb, (12.0-15.0) 13.4 g/dL 05/17/25, 03:15 Hct, (37-47) 39.3 % 05/17/25, 03:15 Plt Count, (150-450) 279 K/mm3 05/17/25, 03:15 CHEMISTRY Potassium, (3.3-5.1) 3.5 mmol/L 05/17/25, 03:15 Sodium, (133-145) 134 mmol/L 05/17/25, 03:15 Magnesium, (1.6-2.6) 2.1 mg/dL 10/21/19, 15:09 BUN, (4-19) 13 mg/dL 05/17/25, 03:15 Creatinine, (0.70-1.20) 1.03 mg/dL 05/17/25, 03:15 Glucose, (70-99) 86 mg/dL 05/17/25, 03:15 TSH, (0.358-3.74) 2.47 uIU/mL 10/21/19, 15:09 COAG Pre-Assessment Diagnosis/Proposed Procedure Planned Operative Procedure(s): ERCP Anesthesia History Anesthesia History - credit card specialist: Anesthesia History - credit card specialist Hx Hospitalization Yes 09/10/19 13:04 Any Problems With Anesthesia No 05/18/25 01:02 Cholinesterase deficiency No 05/18/25 01:02 You/Your Family Experience No 05/18/25 01:02 fever (hyperthermia) with Relationship Recent Exposure to Contagious No 05/18/25 01:02 Disease Does patient have nerve No 05/18/25 01:02 stimulator Patient instructed to have No 05/18/25 01:02 device shut off --Does patient have Pacemaker No 05/17/25 22:42 or ICD? When Was Last Pacemaker Check QUESTION #4 FULL TEXT: You/Your Family Experience fever (hyperthermia) with Anesthesia Last Oral Intake Last Oral intake: Last Oral Intake NPO since :05/17/25 22:42 Meds taken in AM with sips of No 05/17/25 22:42 water? Meds patient instructed to take am of surgery PONV PONV - credit card specialist: PONV - credit card specialist Female HX of Motion Sickness HX of N/V After Surgery Non-Smoker Duration of Surgery greater than 60 minutes Number of Risk Factors PONV Score Height & Weight Height & Weight: Anesthesia: Height & Weight Height 5 ft 2 in 05/17/25 22:42 Weight: 64.2 kg 05/17/25 22:42 Body Mass Index (BMI) 25.9 05/17/25 22:42 Respiratory Assessment Respiratory Assessment - credit card specialist: Respiratory Tract Infection Hx - credit card specialist Hx Respiratory Tract Infection No 05/18/25 01:02 STOP Sleep Apnea STOP Sleep Apnea - credit card specialist: STOP Sleep Apnea - credit card specialist Hx Hypertension Yes 05/16/25 22:11 Hx Sleep Apnea No 05/16/25 22:11 CPAP BIPAP Do you snore loudly (louder No 05/16/25 22:11 than talking or can be heard Do you often feel tired/ No 05/16/25 22:11 fatigued/ sleepy during daytime? Has anyone observed you stop No 05/16/25 22:11 breathing during sleep? STOP Results Negative 05/16/25 22:11 QUESTION #5 FULL TEXT : Do you snore loudly (louder than talking or can be heard through closed doors)? 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 Specify any problems Hx of Preganancy in last 3 No 05/16/25 22:11 Months Nurse Filling Out Transfusion DREDICK 05/16/25 22:11 & Questions: Date: 05/16/25 05/16/25 22:11 Time: 22:11 05/16/25 22:11 Patient unable to answer at this time (ie. confused, unrespo /Reproduction History /Reproductive History - credit card specialist: /Reproductive Hx- credit card specialist Hx Now No 05/18/25 01:02 Gestational Age (in weeks): EDC: Hx Hx Para Hx Section SAB No 05/18/25 01:02 Active Medications Active Medications: Current Medications Generic Name Dose Route Start Last Admin Trade Name Freq PRN Reason Stop Dose Admin Albuterol Sulfate 2.5 mg 05/16/25 22:04 Albuterol 2.5 Mg/3 Ml Vial.Neb. INHALATION Q4H PRN PRN shortness of breath/wheezing Albuterol/Ipratropium 3 ml 05/17/25 00:00 05/17/25 19:32 Ipratropium/Albuterol Sulfate 3 Ml Ampul.Neb INHALATION 3 ml Q6HWA.RT JEROD Administration Budesonide 0.5 mg 05/17/25 06:00 05/17/25 19:32 Budesonide Respules 0.5 Mg/2 Ml Ampul.Neb. INHALATION 0.5 mg Q12H.RT JEROD Administration Buspirone HCl 15 mg 05/17/25 22:00 05/18/25 11:09 Buspirone 15 Mg Tablet PO Not Given BID JEROD Clonazepam 1 mg 05/17/25 22:00 05/17/25 21:22 Clonazepam 1 Mg Tablet PO 1 mg QHS JEROD Administration Duloxetine HCl 30 mg 05/18/25 10:00 05/18/25 11:09 Duloxetine Hcl 30 Mg Capsule PO Not Given DAILY JEROD Duloxetine HCl 60 mg 05/18/25 10:00 05/18/25 11:10 Duloxetine Hcl 60 Mg Capsule PO Not Given DAILY JEROD Enoxaparin Sodium 40 mg 05/17/25 10:00 05/18/25 11:09 Enoxaparin 40 Mg/0.4 Ml Syringe SC Not Given DAILY JEROD Hydromorphone HCl 0.2 mg 05/16/25 22:35 05/18/25 01:06 Hydromorphone Inj 0.2 Mg/Ml Syringe IV 0.2 mg Q4H PRN PRN Administration Pain Score 6-10 Sodium Chloride 1,000 mls @ 125 mls/hr 05/16/25 22:04 05/18/25 09:08 IV 125 mls/hr .Q8H JEROD Administration Sodium Chloride 250 mls @ 15 mls/hr 05/16/25 22:05 IV .[id number] PRN Saline Flush Sodium Chloride 250 mls @ 15 mls/hr 05/16/25 22:05 IV .[id number] PRN Additional IVPB Infusion Ketorolac Tromethamine 15 mg 05/16/25 22:35 05/18/25 05:19 Ketorolac 15 Mg/Ml Vial IV 05/21/25 22:37 15 mg Q6H PRN PRN Administration Pain Score 1-5 Losartan Potassium 50 mg 05/18/25 10:00 05/18/25 11:09 Losartan Potassium 50 Mg Tablet PO Not Given DAILY [facility] Protocol Olanzapine 15 mg 05/17/25 22:00 05/17/25 21:22 Olanzapine 5 Mg/Tab Tab.Rapdis PO 15 mg QHS JEROD Administration Ondansetron HCl 4 mg 05/16/25 22:04 Ondansetron 4 Mg/2 Ml Vial IV Q8H PRN PRN NAUSEA/VOMITING Sodium Chloride 10 - 40 ml 05/16/25 22:05 05/18/25 01:06 0.9% Saline Lock 10 Ml Syringe IV 10 ml UD PRN Administration SALINE FLUSH PFSH Medical History Hx of emotional problems Hormone deficiency Back problem HTN (hypertension) History of skin cancer CHF (congestive heart failure) Fibromyalgia Tobacco use Home Medications ?Medication ?Instructions ?Recorded ?Last Taken ?Type clonazepam 1 mg tablet 1 mg PO QHS anxiety 10/18/16 Unknown History multivitamin,cc-[id number] 27 1 tab PO DAILY supple ment 10/18/16 Unknown History mg-0.4 mg tablet buspirone 15 mg tablet 15 mg PO BID mood 10/09/23 U nknown History cyclobenzaprine 10 mg tablet 10 mg PO BID muscle spasm 10/09/23 Unknown History olanzapine 15 mg tablet 15 mg PO QHS mood 10/09/23 U nknown History duloxetine 30 mg capsule,delayed 30 mg PO QDAY mood Unknown History release duloxetine 60 mg capsule,delayed 60 mg PO QDAY mood Unknown History release losartan 50 mg tablet 50 mg PO QDAY bp 10/29/23 Un known History potassium chloride 20 mEq 20 meq PO TID supplement Unknown History tablet,extended release(part/cryst) albuterol sulfate 90 mcg/actuation 2 puff inhalation Q 6H PRN 05/04/24 Unknown Rx aerosol inhaler shortness of breath or wheez ing #18 grams meclizine 25 mg tablet 50 mg PO BID vertigo 4 Unknown History fluticasone fur. 200 mcg-umeclid 1 inh inhalation MYRON Y sob #60 ea 11/22/24 Unknown Rx 62.5 mcg-vilant 25 mcg inhalat.powder (Trelegy Ellipta) Allergy/AdvReac Type Severity Reaction Status Date / Time codeine Allergy Unknown Verified 05/16/25 13:56 ciprofloxacin (From Cipro) AdvReac Vomiting Verified 05/16/25 13:56 Family History Sister Diabetes Brother Diabetes Heart disease Father Heart disease Surgical History History of left hip replacement Hx of hysterectomy History of carpal tunnel release of both wrists Social History household members: none Smoking Status: Current every day smoker tobacco type: cigarettes and e- cigarettes Tobacco: How many years used: 40 Electronic Cigarette Use: with nicotine how long ago did patient quit smokin quit smoking cigarettes, 1ppd vaping currently second hand exposure: Yes Prior Cardiac Testing/Procedures Prior Cardiac Testing/Procedures: Echocardiogram (60% Diastolic dysfunction ) Review of Systems (Anesthesia) ROS Narrative System reviewed and no additional complaints, except as documented. Physical Exam Const alert, oriented x3 and average body habitus Resp normal respiratory effort and normal air movement Auscultation: clear to auscultation bilaterally Cardio regular rate and regular rhythm Neuro oriented x3 and moves all extremities 05/18/25 1246 <Electronically signed by Jorge Og MD> Date _ Jorge Og MD Cosigner Signature: Date CC: ~ Signed [facility] Work Phone: Consult note Author Carlo Arias [facility] Note Date/Time May 18, 2025 2: 06pm [facility] Medical Records Department [address] [place] [id number] Anesthesia Postop Eval I 05/18/251404 MR#: [id number] Acct: [id number] Name: NORA GRANDE Rep #:[id number] : 1955 70 From: Carlo Arias PCP: Dr. Claudine Mallory, DO Status:ADM IN Y Race: C Location: [place] [address] Anesthesia: Postop Eval I Current Vital Signs Temperature: 98.7 F Pulse Rate: 88 Blood Pressure: 127/79 Respiratory Rate: 16 Pulse Ox: 97 Oxygen Delivery Method: Room Air Assessment Airway patent: Yes Spontaneous unlabored respirations: Yes Mental status: Asleep nausea: No Vomiting: No Anesthesia Complication: No Fluid Hydration Crystalloid volume administer (ml): 400 Total IV fluid infused: 400 Progress Note Anesthesia document: Postop Eval 1 completed: Yes 05/18/25 1406 <Electronically signed by Carlo Arias > Date _ Carlo Sanchez Signature: Date CC: ~ Signed [facility] Work Phone: Consult note Author Jorge Og [facility] Note Date/Time May 18, 2025 3: 13pm [facility] Medical Records Department [address] [facility] [place] [place] [address] Anesthesia Postop Eval II 05/18/25 1513 MR#: [id number] Acct: [id number] Name: NORA GRANDE Rep #:[id number] : 1955 70 From: Jorge Peguero PCP: Dr. Claudine Mallory, DO Status:ADM IN Y Race: C Location: [place] [address] Anesthesia Postop Eval I Sum Postop Eval Completion status Anesthesia document: Postop Eval 1 completed: Yes Anesthesia Postop Eval I Summary Anesthesia Postop Eval I Summary: Anesthesia Postop Eval I: Assessment Summary Airway patent Yes 05/18/25 14:06 [email or web address] Spontaneous unlabored Yes 05/18/25 14:06 [email or web address] respirations Mental status Asleep 05/18/25 14:06 [email or web address] nausea No 05/18/25 14:06 [email or web address] Vomiting No 05/18/25 14:06 [email or web address] Anesthesia Postop Eval I: Fluid Summary Crystalloid volume administer 400 05/18/25 14:06 [email or web address] (ml) Colloids volume administered ( ml) Blood Product volume administered (ml) Total IV fluid infused 400 05/18/25 14:06 [email or web address] Anesthesia Postop Eval I: Summary Notes Anesthesia Complication No 05/18/25 14:06 [email or web address] Anesthesia Complication Comment: Post-operative progress note Anesthesia: Postop Eval II Evaluation Mental status: Awake and Calm Pain Level: 0 nausea: No Vomiting: No Complications Anesthesia Complication: No 05/18/25 151 <Electronically signed by Jorge Og MD> Date _ Jorge Torresigndmitry Signature: Date CC: ~ Signed [facility] Work Phone: Discharge summary Author Yordan Newman [facility] Note Date/Time May 19, 2025 3: 15pm [facility] Medical Records Department [address] [place] [address] Discharge Summary 05/19/25 1510 MR#: [id number] Acct: [id number] Name: NORA GRANDE Rep #:[id number] : 1955 70 From: Yordan Newman MD PCP: Dr. Claudine Mallory DO Status:ADM IN [id number] Prov[facility] Date of Admission: 05/16/25 Date of Discharge: 05/19/25 Primary Care Physician: Dr. Claudine Mallory, Consultations 05/16/25 22:04 Consult: Gastroenterology Routine Consulting Provider: [facility] Reason for Consult: Cholelithiasis EMERGENT Consult: Yes Notified: Yes Date Notified: 05/16/25 Time Notified: 20:33 Method of Notification: ED Physician Initiated Reason For Visit: CHOLELITHIASIS Diagnosis Discharge Diagnosis (1) Cholelithiases: Status: Acute Code(s): K80.20 - Calculus of gallbladder without cholecystitis without obstruction Plan Patient is a 70-year-old female who presented with abdominal pain. Ultrasound of the gallbladder demonstrated cholelithiasis with no evidence of acute cholecystitis 1. Abdominal pain ? Secondary to cholelithiasis. Ultrasound of the gallbladder did show Mild intra and extrahepatic biliary ductal dilatation, and prominence of the main pancreatic duct. No discrete obstructing mass or choledocholithiasis appreciated. Admitted to regular nursing floor for symptom management consult placed to GI patient seen by Dr. Tadeo and is for patient to undergo ERCP ? 05/19/2025; patient underwent ERCP the day prior findings and procedures performed as below Impressions : - A single localized biliary stricture was found in the lower third of the main bile duct. The stricture was benign appearing, fibrotic and indeterminate. - The entire main bile duct was dilated, acquired. - Choledocholithiasis was found. Complete removal was accomplished by biliary sphincterotomy and balloon extraction. - One temporary stent was placed into the ventral pancreatic duct. - A biliary sphincterotomy was performed. - The biliary tree was swept. - Cells for cytology obtained in the lower third of the main duct. 2. Hypertension ? Blood pressure controlled, home medications continued with dose adjustment as needed 3. Depression with anxiety ? Patient is on duloxetine, olanzapine as well as clonazepam 4. Tobacco dependence ? Counseled on cessation, offered nicotine patch for tobacco cravings 5. COPD ? Currently not in exacerbation aerosol treatments as needed 6. Obstructive sleep apnea ? Consistent use of PAP therapy encouraged 7 DVT prophylaxis ? Subcu Lovenox Time spent in the patient's overall evaluation,decision-making process, review of diagnostic data, adjustment of management, discussion with other providers, nursing nursing and ancillary staff involved in patient's care documentation, 35 Minutes Medications at Discharge Home Medications clonazepam 1 mg tablet 1 mg PO QHS anxiety 10/18/16 multivitamin,ka-yikn-tqdvlhrd 27 mg-0.4 mg tablet 1 tab PO DAILY supplement 10/18/16 buspirone 15 mg tablet 15 mg PO BID mood 10/09/23 cyclobenzaprine 10 mg tablet 10 mg PO BID muscle spasm 10/09/23 olanzapine 15 mg tablet 15 mg PO QHS mood 10/09/23 duloxetine 30 mg capsule,delayed release 30 mg PO QDAY mood 10/29/23 duloxetine 60 mg capsule,delayed release 60 mg PO QDAY mood 10/29/23 losartan 50 mg tablet 50 mg PO QDAY bp 10/29/23 potassium chloride 20 mEq tablet,extended release(part/cryst) 20 meq PO TID supplement 10/29/23 albuterol sulfate 90 mcg/actuation aerosol inhaler 2 puff inhalation Q6H PRN shortness of breath or wheezing #18 grams 05/04/24 meclizine 25 mg tablet 50 mg PO BID vertigo 07/02/24 fluticasone fur. 200 mcg-umeclid 62.5 mcg-vilant 25 mcg inhalat.powder (Trelegy Ellipta) 1 inh inhalation DAILY sob #60 ea 11/22/24 sennosides 8.6 mg-docusate sodium 50 mg tablet (Stimulant Laxative Plus) 1 tab PO DAILY #30 tabs 05/19/25 Physical Exam Narrative GENERAL: cooperative HEENT: Atraumatic; normocephalic EYES; Anicteric, Normal Conjunctiva NECK; supple, normal thyroid, RESPIRATORY: Diminished to auscultation CARDIOVASCULAR: Regular S1 S2, GI: soft, normoactive bowel sounds, : No Renal angle tenderness; EXTREMITIES: No edema, no clubbing, MUSCULOSKELETAL: no muscle wasting NEURO: Awake; no lateralizing signs. SKIN: No Rash PSYCH; Flat affect Weight / BMI Weight Weight: 64.2 kg Body Mass Index (BMI) 25.9 ABG / Lab / Microbiology Data 05/19/25 05:21 05/19/25 05:21 Laboratory: Laboratory Results - last 24 hr 05/18/25 09:40: Urine Test Cancelled 05/19/25 05:21: WBC 8.7, RBC 4.12 L, Hgb 12.2, Hct 37.1, MCV 90.0, MCH 29.6, MCHC 32.9, RDW Std Deviation 46.6 H, RDW Coeff of Nikolas 14.1, Plt Count 318, MPV 10.8, Immature Gran % (Auto) 1.500 H, Neut % (Auto) 65.2, Lymph % (Auto) 17.3 L,Jackson % (Auto) 14.9 H, Eos % (Auto) 0.6, Baso % (Auto) 0.5, Absolute Neuts (auto)5.7, Absolute Lymphs (auto) 1.50, Nucleated RBC % 0, Sodium 139, Potassium 4.1, Chloride 109 H, Carbon Dioxide 19.1 L, Anion Gap 11, BUN 9, Creatinine 1.00, Estim Creat Clear Calc 46.06 L, Est GFR (MDRD) Non-Af 61, BUN/Creatinine Ratio 8.7 L, Glucose 201 H, Calcium 8.5, Phosphorus 3.0, Magnesium 2.3 H, Total Bilirubin 0.30, Direct Bilirubin 0.11, AST 16, ALT 12, Alkaline Phosphatase 59, Total Protein 5.6 L, Albumin 3.1 L, Globulin 2.5 Microbiology: Microbiology 05/16/25 15:40 Stool Stool Occult Blood (MARVIN) - Final Occult Blood Positive D/C Instructions Discharge Activity: Return to Normal Activity Call your doctor if you observe: Fever of 101 or Higher, Shortness of breath, Fainting spells and Chest pain DC O2, CPAP, BIPAP Needs Home O2 Discharge instructions: No Meaningful Use Info Meaningful Use Meaningful Use Diagnoses (Choose all that apply): None applicable Discharge Plan Admission Admit Date/Time: 05/16/25 20:26 Attending Provider: Yordan Newman Primary Care Provider: Claudine Mallory Consulting Providers: Danilo Salvador; Connor Tadeo; Christina Mendez; Rebecca Singh; Kassi Fish; Zachary Coffey; Jaylen Mike Discharge Orders/Prescriptions Prescriptions: New sennosides-docusate sodium [Stimulant Laxative Plus] 8.6-50 mg Tablet 1 tab PO DAILY Qty: 30 0RF Continued buspirone 15 mg tablet 15 mg PO BID Patient Comments: TAKE 1 TABLET BY MOUTH TWICE DAILY olanzapine 15 mg tablet 15 mg PO QHS Patient Comments: TAKE 1 TABLET BY MOUTH AT BEDTIME cyclobenzaprine 10 mg tablet 10 mg PO BID Patient Comments: TAKE 1 TABLET BY MOUTH TWICE DAILY losartan 50 mg tablet 50 mg PO QDAY potassium chloride 20 mEq tablet,ER particles/crystals 20 meq PO TID duloxetine 30 mg capsule,delayed release(DR/EC) 30 mg PO QDAY duloxetine 60 mg capsule,delayed release(DR/EC) 60 mg PO QDAY meclizine 25 mg tablet 50 mg PO BID clonazepam 1 MG tablet 1 mg PO QHS multivitamin,vg-clxw-ywghnttp 1 TABLET tablet 1 tab PO DAILY albuterol sulfate 90 mcg/actuation HFA aerosol inhaler 2 puff INHALATION Q6H PRN (Reason: shortness of breath or wheezing) Qty: 18 11RF Trelegy Ellipta 200-62.5-25 mcg blister with device 1 inh inhalation DAILY Qty: 60 11RF Referrals / Follow Up: Claudine Mallory DO [Primary Care Provider, Family Practice] - Within 1 Week Connor Tadeo DO [Med Staff - Active Staff, Gastroenterology] - Within 2 Weeks Disposition Disposition (needs filled in before D/C Order can be placed): Home, Self Care Charges/Coding Visit Charges Inpatient E&M: 09672 Disch Hosp >30min 05/19/25 8220 <Electronically signed by Yordan Newman MD> Cosigner Signature (if applicable): CC: Dr. Yordan Newman MD; Dr. Claudine Mallory, DO~ Signed [facility] Work Phone: Evaluation noteNo assessment information available [facility] Work Phone: Evaluation note* Diagnosis Onset Date Resolution Status JORGE (obstructive sleep apnea) chronic Smoking greater than 30 pack years chronic Stage 2 moderate COPD by GOLD classification [facility] Work Phone: Evaluation note* Diagnosis Onset Date Resolution Status JORGE (obstructive sleep apnea) chronic Smoking greater than 30 pack years chronic Stage 2 moderate COPD by GOLD classification chronic JORGE (obstructive sleep apnea) chronic Smoking greater than 30 pack years chronic Stage 2 moderate COPD by GOLD classification [facility] Work Phone: evaluation note* Diagnosis Onset Date Resolution Status Admit Date Abnormal finding on imaging of liver acute May 16, 2025 8:26pm Cholelithiases acute May 16, 2025 8:26pm CHF (congestive heart failure) chron ic May 16, 2025 8:26pm COPD (chronic obstructive pulmonary disease) chronic April 8:26pm Fibromyalgia chronic May 162024 8:26pm HTN (hypertension) chronic Septem 2024 8:26pm JORGE (obstructive sleep apnea) chroni c May 16, 2025 8:26pm Smoking greater than 30 pack years chronic May 16, 2025 8:26pm [facility] Work Phone: History and physical note Author Zachary Coffey [facility] Note Date/Time May 16, 2025 8:26pm [facility] Medical Records Department [address] [place] [address] History & Physical Exam 05/16/252006 MR#: [id number] Acct: [id number] Name: NORA GRANDE ROB Rep #:[id number] : 1955 70 From: Zachary Coffey MD PCP: Dr. Claudine Mallory, Status:REG ER Location: ED HPI - General General Date of Admission: 05/16/25 Date of Service: 05/16/25 Chief Complaint: Abdominal pain HPI Narrative NORA CHRISTIANE, is a 70 F who presents chief complaint of abdominal pain. Onset of symptoms began this this past with epigastric pain that radiated to the left side of her abdomen. Symptoms have progressed and on Friday she had blood in her stool. Patient admits to decrease in appetite butno nausea or vomiting. Pain is wax and wane but apparently got worse today so she came to the ER for evaluation. Patient has significant past medical historyof COPD, hypertension, CHF and fibromyalgia. Laboratory studies show white blood cell count 12,000, hemoglobin 14.6, hemoglobin 44, platelets 292, sodium 134, potassium 3.5, chloride 99, bicarb 21.6, BUN 14, creatinine 1.17, glucose 146, AST 14, ALT 13, lipase 18. Ultrasound gallbladder was positive for cholelithiasis without obstruction showing mild intra and hepatic biliary duct dilatation. CT abdomen and pelvis shows no definitive stone obstruction howevershe does show multiple gallstones. Dr. Tadeo was notified by ER physician and agreed to do MRCP on this patient. She will be admitted to general medical floor made n.p.o. with IV fluids and pain medication as necessary. PFSH Medical History Hx of emotional problems Hormone deficiency Back problem HTN (hypertension) History of skin cancer CHF (congestive heart failure) Fibromyalgia Tobacco use Home Medications ?Medication ?Instructions ?Recorded ?Last Taken ?Type clonazepam 1 mg tablet 1 mg PO QHS 10/18/16 Unknown History multivitamin,ss-gnrk-jwfmfujy 27 1 tab PO DAILY Unknown History mg-0.4 mg tablet buspirone 15 mg tablet mg PO BID 10/09/23 Unknown H istory cyclobenzaprine 10 mg tablet mg PO BID 10/09/23 Unknow n History olanzapine 15 mg tablet mg PO QHS 10/09/23 Unknown H istory duloxetine 30 mg capsule,delayed 30 mg PO QDAY 4 Unknown History release duloxetine 60 mg capsule,delayed 60 mg PO QDAY 4 Unknown History release losartan 50 mg tablet 50 mg PO QDAY 10/29/23 Unkno wn History potassium chloride 20 mEq 20 meq PO TID 10/29/23 Unkno wn History tablet,extended release(part/cryst) albuterol sulfate 90 mcg/actuation 2 puff inhalation Q 6H PRN 05/04/24 Unknown Rx aerosol inhaler shortness of breath or wheez ing #18 grams meclizine 25 mg tablet 50 mg PO BID 07/02/24 Unknow n History fluticasone fur. 200 mcg-umeclid 1 inh inhalation MYRON Y #60 ea 11/22/24 Unknown Rx 62.5 mcg-vilant 25 mcg inhalat.powder (Trelegy Ellipta) Allergy/AdvReac Type Severity Reaction Status Date / Time codeine Allergy Unknown Verified 05/16/25 13:56 ciprofloxacin (From Cipro) AdvReac Vomiting Verified 05/16/25 13:56 Family History Sister Diabetes Brother Diabetes Heart disease Father Heart disease Surgical History History of left hip replacement Hx of hysterectomy History of carpal tunnel release of both wrists Social History household members: none Smoking Status: Current every day smoker tobacco type: cigarettes and e- cigarettes Tobacco: How many years used: 40 Electronic Cigarette Use: with nicotine how long ago did patient quit smokin quit smoking cigarettes, 1ppd vaping currently second hand exposure: Yes ROS Constitutional Constitutional: Denies chills or fever(s) Eyes Eyes: Denies blurry vision ENT HEENT: Denies abnormal hearing Cardiovascular Cardiovascular: Denies chest pain Respiratory/Chest Respiratory/Chest: Denies shortness of breath at rest Gastrointestinal Gastrointestinal: Reports abdominal pain, dyspepsia and hematochezia; Denies diarrhea Genitourinary Genitourinary: Denies dysuria Musculoskeletal Musculoskeletal: Denies back pain Integumentary Integumentary: Denies jaundice Neurologic Neurologic: Denies abnormal gait Psychiatric Psychiatric: Denies anxiety Vital Signs Vital Signs Vital Signs: 05/16/25 13:56 05/16/25 14:45 05/16/25 15:34 Temperature 98.4 F Temperature Source Oral Pulse Rate 97 80 80 Respiratory Rate 18 18 17 Blood Pressure 160/98 H 139/105 H 141/99 H Blood Pressure Mean 118 116 113 Pulse Ox 98 100 100 Oxygen Delivery Method Room Air Room Air Room Air 05/16/25 16:40 05/16/25 17:00 05/16/25 18:00 Temperature Temperature Source Pulse Rate 81 67 83 Respiratory Rate 16 16 17 Blood Pressure 120/89 H 140/70 H 163/94 H Blood Pressure Mean 99 93 117 Pulse Ox 97 97 99 Oxygen Delivery Method 05/16/25 19:00 Temperature Temperature Source Pulse Rate 87 Respiratory Rate 16 Blood Pressure 143/91 H Blood Pressure Mean 108 Pulse Ox 100 Oxygen Delivery Method Weight Weight: 140 lb Body Mass Index (BMI) 25.6 Physical Exam Const oriented x3 General Appearance: cooperative and well developed HEENT head/scalp atraumatic Eyes PERRL Neck no lymphadenopathy Lymph Lymphatic: no lymphadenopathy noted Resp normal respiratory effort, normal air movement and clear to auscultation bilaterally Cardio regular rate, regular rhythm, S1 normal heart sound and S2 normal heart sound GI GI Narrative: Positive bowel sounds Palpation: tender epigastric and LUQ Extremity normal capillary refill and no clubbing, cyanosis or edema Skin General Skin Exam: no breakdown Neuro no focal motor deficits and no sensory deficits noted Psych thought process normal, cooperative and affect normal Results Lab / Micro Data 05/16/25 14:30 05/16/25 14:30 Labs: Laboratory Results - last 24 hr 05/16/25 14:30: WBC 12.0 H, RBC 4.99, Hgb 14.6, Hct 44.0, MCV 88.2, MCH 29.3, MCHC 33.2, RDW Std Deviation 44.4 H, RDW Coeff of Nikolas 13.8, Plt Count 292, MPV 10.2, Immature Gran % (Auto) 0.600, Neut % (Auto) 65.6, Lymph % (Auto) 21.9, Jackson % (Auto) 10.2 H, Eos % (Auto) 0.9, Baso % (Auto) 0.8, Absolute Neuts (auto) 7.9 H, Absolute Lymphs (auto) 2.63, Nucleated RBC % 0, Sodium 134, Potassium 3.5, Chloride 99, Carbon Dioxide 21.6, Anion Gap 13, BUN 14, Creatinine 1.17, Estim Creat Clear Calc 39.17 L, Est GFR (MDRD) Non-Af 50 L, BUN/Creatinine Ratio 11.7, Glucose 146 H, Calcium 9.2, Total Bilirubin 0.82, AST 14, ALT 13, AlkalinePhosphatase 75, Total Protein 7.0, Albumin 3.6, Globulin 3.3, Albumin/Globulin Ratio 1.1, Lipase 18 05/16/25 17:28: Urine Color Yellow, Urine Clarity Clear, Urine pH 6.0, Ur Specific [place] 1.010, Urine Protein 30 H, Urine Glucose (UA) Normal, Urine Ketones Negative, Urine Occult Blood 10 H, Urine Nitrite Negative, Urine Bilirubin Negative, Urine Urobilinogen Normal, Ur Leukocyte Esterase 25 H, UrineRBC 0-5 SEEN, Urine WBC 0- 5 SEEN, Ur Squamous Epith Cells 0-5 SEEN, Urine Bacteria 0 SEEN, Urine Mucus 0 SEEN Micro: Microbiology 05/16/25 15:40 Stool Stool Occult Blood (MARVIN) - Final Occult Blood Positive Imaging Radiology Impression Abdomen/Pelvis CT 05/16/25 16:27 IMPRESSION: Interval development of moderate right intrahepatic ductal dilatation of uncertain etiology. No definitive obstructing mass or stone in the right hepatic duct. Left biliaryintrahepatic ducts normal. Cholelithiasis. No definitive choledocholithiasis. Reading Location: [place] [address] Gallbladder Ultrasound 05/16/25 16:59 IMPRESSION: Cholelithiasis. No evidence for acute cholecystitis. Mild intra and extrahepatic biliary ductal dilatation, and prominence of the main pancreatic duct. No discrete obstructing mass or choledocholithiasis appreciated. MRCP may be helpful. Mild diffuse hepatic steatosis. Small benign-appearing hepatic cysts. Reading Location: [id number] Assessment & Plan Assessment/Plan (1) COPD (chronic obstructive pulmonary disease): (2) JORGE (obstructive sleep apnea): (3) HTN (hypertension): (4) CHF (congestive heart failure): (5) Fibromyalgia: (6) Smoking greater than 30 pack years: (7) Cholelithiases: PLAN: Plan 1 cholelithiasis?admit patient to general medical floor, consult Dr. Tadeo gastroenterology. Make patient n.p.o., IV normal saline rate 125 cc/h, will addDilaudid 1 mg IV every 3 hours as needed for severe pain. Repeat CMP, CBC in a.m. 2. Hypertension?continue routine home medication 3. Smoking history?cessation encouraged may offer nicotine patch if patient requests 4. COPD?continue inhalation treatments per routine at home care and may add oxygen as needed here to maintain saturation greater than 90%. 5. DVT prophylaxis?low molecular weight heparin 6. CODE STATUS full verified Charges/Coding Visit Charges Inpatient E&M: 51068 Init Hosp L2 05/16/252025 <Electronically signed by Zachary Coffey MD> Cosigner Signature (if applicable): CC: Dr. Claudine Mallory DO; Dr. Zachary Coffey MD~ Signed [facility] Work Phone: Proihdbu note Author Christina Mendez [facility] Note Date/Time May 16, 2025 11:46pm [facility] Medical Records Department [address] [place] [address] Progress Note - Hospitalist 05/16/252336 MR#: [id number] Acct: [id number] Name: NORA GRANDE Rep #:[id number] : 1955 70 From: Christina Joyner PCP: Dr. Claudine Mallory DO Status:ADM IN Location: [place] [address] Hospitalist Note Pt admitted from ER without having received any analgesia for her severe 9/10 abdominal pain. Only ondansetron ordered for nausea at this time. Order placed for ketorolac 15mg IV q6h PRN pain 1-5/10 and hydromorphone 0.2mg IV q4h PRN pain 6-10/10. Monitoring renal function. 05/16/252343 <Electronically signed by Christina CABALLERO> Cosigner Signature (if applicable): CC: ~ Signed ADDENDUM by FEDERICO Mendez on 05/16/25 at 2346 Addendum Dulcolax suppository x1 ordered for c/o no BM for a while and moderate stool burden noted on CT abd/pelvis. 05/16/252345<Electronically signed by Christina CABALLERO> Cosigner Signature (if applicable): cc: ~* Signed [facility] Work Phone: Proineom note Author Jaylen Mike [facility] Note Date/Time May 17, 2025 11:19am [facility] Medical Records Department [address] [place] [address] Progress Note - Hospitalist 05/17/25 1114 MR#: [id number] Acct: [id number] Name: NORA GRANDE Rep #:[id number] : 1955 70 From: Jaylen franco MD PCP: Dr. Claudine Mallory, DO Status:ADM IN Location: MS[facility] [id number] Subjective Subjective Abdominal pain is improved today. Plan for MRCP Objective Data Objective Data Vital Signs: Vital Signs Temp Pulse Resp BP Pulse Ox O2 Del Method 97.9 F 72 16 138/74 H 100 Room Air 05/17/25 09:00 05/17/25 09:00 05/17/25 09:00 05/17/25 09:00 05/17/25 09:00 05/17/25 09:00 Oxygen Delivery Method Room Air Weight: 141 lb 8.588 oz Body Mass Index (BMI) 25.9 Intake & Output: Intake and Output for Last 24 Hours 05/16/25 05/17/25 05/18/25 03:59 03:59 03:59 Intake Total 400 / 400 968.75 / 968.75 Balance 400 / 400 968.75 / 968.75 Lab / Micro Data 05/17/25 03:15 05/17/25 03:15 Labs: Laboratory Results - last 24 hr 05/16/25 14:30: WBC 12.0 H, RBC 4.99, Hgb 14.6, Hct 44.0, MCV 88.2, MCH 29.3, MCHC 33.2, RDW Std Deviation 44.4 H, RDW Coeff of Nikolas 13.8, Plt Count 292, MPV 10.2, Immature Gran % (Auto) 0.600, Neut % (Auto) 65.6, Lymph % (Auto) 21.9, Jackson % (Auto) 10.2 H, Eos % (Auto) 0.9, Baso % (Auto) 0.8, Absolute Neuts (auto) 7.9 H, Absolute Lymphs (auto) 2.63, Nucleated RBC % 0, Sodium 134, Potassium 3.5, Chloride 99, Carbon Dioxide 21.6, Anion Gap 13, BUN 14, Creatinine 1.17, Estim Creat Clear Calc 39.17 L, Est GFR (MDRD) Non-Af 50 L, BUN/Creatinine Ratio 11.7, Glucose 146 H, Calcium 9.2, Total Bilirubin 0.82, AST 14, ALT 13, AlkalinePhosphatase 75, Total Protein 7.0, Albumin 3.6, Globulin 3.3, Albumin/Globulin Ratio 1.1, Lipase 18 05/16/25 17:28: Urine Color Yellow, Urine Clarity Clear, Urine pH 6.0, Ur Specific [place] 1.010, Urine Protein 30 H, Urine Glucose (UA) Normal, Urine Ketones Negative, Urine Occult Blood 10 H, Urine Nitrite Negative, Urine Bilirubin Negative, Urine Urobilinogen Normal, Ur Leukocyte Esterase 25 H, UrineRBC 0-5 SEEN, Urine WBC 0- 5 SEEN, Ur Squamous Epith Cells 0-5 SEEN, Urine Bacteria 0 SEEN, Urine Mucus 0 SEEN 05/17/25 03:15: WBC 11.0, RBC 4.57, Hgb 13.4, Hct 39.3, MCV 86.0, MCH 29.3, MCHC34.1, RDW Std Deviation 42.9, RDW Coeff of Nikolas 13.7, Plt Count 279, MPV 10.3, Immature Gran % (Auto) 0.600, Neut % (Auto) 57.9, Lymph % (Auto) 25.6, Jackson % (Auto) 13.6 H, Eos % (Auto) 1.5, Baso % (Auto) 0.8, Absolute Neuts (auto) 6.4, Absolute Lymphs (auto) 2.82, Nucleated RBC % 0, Sodium 134, Potassium 3.5, Chloride 100, Carbon Dioxide 21.0, Anion Gap 13, BUN 13, Creatinine 1.03, Estim Creat Clear Calc 44.72 L, Est GFR (MDRD) Non-Af 58 L, BUN/Creatinine Ratio 12.8,Glucose 86, Calcium 8.4, Total Bilirubin 0.83, AST 16, ALT 11, Alkaline Phosphatase 82, Total Protein 6.2, Albumin 3.4, Globulin 2.8, Albumin/Globulin Ratio 1.2 Micro: Microbiology 05/16/25 15:40 Stool Stool Occult Blood (MARVIN) - Final Occult Blood Positive Radiography Diagnostic Testing: Radiology Impression Abdomen/Pelvis CT 05/16/25 16:27 IMPRESSION: Interval development of moderate right intrahepatic ductal dilatation of uncertain etiology. No definitive obstructing mass or stone in the right hepatic duct. Left biliaryintrahepatic ducts normal. Cholelithiasis. No definitive choledocholithiasis. Reading Location: [place] [address] Gallbladder Ultrasound 05/16/25 16:59 IMPRESSION: Cholelithiasis. No evidence for acute cholecystitis. Mild intra and extrahepatic biliary ductal dilatation, and prominence of the main pancreatic duct. No discrete obstructing mass or choledocholithiasis appreciated. MRCP may be helpful. Mild diffuse hepatic steatosis. Small benign-appearing hepatic cysts. Reading Location: [facility] [place] Physical Exam Narrative General: Alert, Oriented x3, Cooperative, No apparent distress HEENT: Atraumatic, PERRLA, EOMI, Normocephalic Oral: Moist Mucosa Neck: Supple, No JVD Lungs: Diminished, Normal air movement, No rhonchi, No wheeze, No rales Cardiovascular: Regular rate, Regular Rhythm, Normal S1, Normal S2, No murmurs Abdomen: Soft, Non Tender, Non-Distended, No Hepato-splenomegaly Extremities: No edema, Capillary Refill Less than 3 Seconds Skin: No rashes, No breakdown Musculoskeletal: No Tenderness to Palpation of Joints or Extremities Neurological: No focal neurological deficits, moves all extremities, sensation intact Psych/Mental Status: Normal Affect, Appropriate Assessment & Plan Assessment/Plan (1) Cholelithiases: PLAN: Plan 1. Cholelithiasis without cholecystitis with right intrahepatic ductal dilatation ? Pain so far has been controlled overnight ? Continue with n.p.o. ? Consult GI ? Proceed with an MRCP ? Continue with IV fluids 2. Essential HTN ? Blood pressures currently are stable ? Can resume her home blood pressure medications 3. Anxiety/depression ? Stable ? Can resume her home medications 4. COPD/tobacco abuse ? Stable ? Not in exacerbation ? Can resume her home inhalers ? Discussed tobacco cessation DVT: Lovenox Charges/Coding Visit Charges Inpatient E&M: 85394 Subs Hosp L2 05/17/25 1119 <Electronically signed by Jaylen Mike MD> Cosigner Signature (if applicable): CC: ~ Signed [facility] Work Phone: Progress note Author Yordan Newman [facility] Note Date/Time May 18, 2025 8: 34am [facility] Medical Records Department [address] [place] [address] Progress Note - Hospitalist 05/18/25826 MR#: [id number] Acct: [id number] Name: NORA GRANDE Rep #:[id number] : 1955 70 From: Yordan Newman MD PCP: Dr. Claudine Mallory, DO Status:ADM IN Location: [place] [id number] Reason for Visit Chief Complaint: Abdominal pain Subjective Subjective Patient is a 70-year-old female who presented with abdominal pain. Ultrasound of the gallbladder demonstrated cholelithiasis with no evidence of acute cholecystitis Objective Data Objective Data Vital Signs: Vital Signs Temp Pulse Resp BP Pulse Ox O2 Del Method 98.5 F 82 16 143/76 H 99 Room Air 05/18/25 05:18 05/18/25 05:18 05/18/25 05:18 05/18/25 05:18 05/18/25 05:18 05/18/25 05:20 Oxygen Delivery Method Room Air Weight: 64.2 kg Body Mass Index (BMI) 25.9 Intake & Output: Intake and Output for Last 24 Hours 05/16/25 05/17/25 05/18/25 23:59 23:59 23:59 Intake Total 400 / 400 3441.67 / 3441.67 500 / 500 Balance 400 / 400 3441.67 / 3441.67 500 / 500 Lab / Micro Data 05/17/25 03:15 05/17/25 03:15 Micro: Microbiology 05/16/25 15:40 Stool Stool Occult Blood (MARVIN) - Final Occult Blood Positive Radiography Diagnostic Testing: Radiology Impression MRCP 05/17/25 11:19 IMPRESSION: Gall bladder calculi. No cholecystitis. Relatively prominent extra-hepatic biliary tracts with prominent pancreatic ductshowing no intraluminal filling defects or pancreatic head masses, possibly age related . Reading Location: [place] [address] Physical Exam Narrative GENERAL: cooperative HEENT: Atraumatic; normocephalic EYES; Anicteric, Normal Conjunctiva NECK; supple, normal thyroid, RESPIRATORY: Diminished to auscultation CARDIOVASCULAR: Regular S1 S2, GI: soft, normoactive bowel sounds, : No Renal angle tenderness; EXTREMITIES: No edema, no clubbing, MUSCULOSKELETAL: no muscle wasting NEURO: Awake; no lateralizing signs. SKIN: No Rash PSYCH; Flat affect Assessment & Plan Assessment/Plan (1) Cholelithiases: PLAN: Plan Patient is a 70-year-old female who presented with abdominal pain. Ultrasound of the gallbladder demonstrated cholelithiasis with no evidence of acute cholecystitis 1. Abdominal pain ? Secondary to cholelithiasis. Ultrasound of the gallbladder did show Mild intra and extrahepatic biliary ductal dilatation, and prominence of the main pancreatic duct. No discrete obstructing mass or choledocholithiasis appreciated. Admitted to regular nursing floor for symptom management consult placed to GI patient seen by Dr. Tadeo and is for patient to undergo ERCP 2. Hypertension ? Blood pressure controlled, home medications continued with dose adjustment as needed 3. Depression with anxiety ? Patient is on duloxetine, olanzapine as well as clonazepam 4. Tobacco dependence ? Counseled on cessation, offered nicotine patch for tobacco cravings 5. COPD ? Currently not in exacerbation aerosol treatments as needed 6. Obstructive sleep apnea ? Consistent use of PAP therapy encouraged 7 DVT prophylaxis ? Subcu Lovenox Time spent in the patient's overall evaluation,decision-making process, review of diagnostic data, adjustment of management, discussion with other providers, nursing nursing and ancillary staff involved in patient's care documentation, 40 Minutes Charges/Coding Visit Charges Inpatient E&M: 34733 Subs Hosp L2 05/18/25 0834 <Electronically signed by Yordan Newman MD> Cosigner Signature (if applicable): CC: ~ Signed [facility] Work Phone: Reason for referral (narrative)No reason for referral information availableWSt. Charles Hospital Work Phone: Summary Purpose Family History No Family History Records Found Relationship Condition Age at Onset Recorded Date/T valencia sister Diabetes mellitus Unknown brother Diabetes mellitus Unknown Cardiac disease Unknown father Cardiac disease Unknown Advance Directives No Advanced Directives Records Found Advance Directive Response Recorded Date/ Time Living Will No December 24, 2020 5: 14pm Power of Ingredient Mixer No December 24, 2020 5:14pm Advance Directive Response Recorded Date/ Time Living Will No December 24, 2020 4: 14pm Power of Ingredient Mixer No December 24, 2020 4:14pm Advance Directive Response Recorded Date/ Time Do you have a Healthcare Power of Ingredient Mixer? No May 16, 2025 10:11pm Chief Complaint and Reason for Visit Chief Complaint SCREENING LUNG CANCE R Chief Complaint SCREENING LUNG CANCE R SCREENING Chief Complaint Reestablish care Chronic obstructive pulmonary disease, unspecified Reason for Visit JORGE (obstructive sle ep apnea) Smoking greater than 30 pack years Stage 2 moderate COPD by GOLD classification Chief Complaint Reestablish care Chronic obstructive pulmonary disease, unspecified SCREENING SCREENING Reason for Visit JORGE (obstructive sle ep apnea) Smoking greater than 30 pack years Stage 2 moderate COPD by GOLD classification Chief Complaint Reestablish care Chronic obstructive pulmonary disease, unspecified SCREENING SCREENING JORGE evaluation JORGE Reason for Visit JORGE (obstructive sle ep apnea) Smoking greater than 30 pack years Stage 2 moderate COPD by GOLD classification JORGE (obstructive sleep apnea) Smoking greater than 30 pack years Stage 2 moderate COPD by GOLD classification Chief Complaint Admit Date SCREENING March 02, 2025 2:47 pm Chief Complaint Admit Date SCREENING March 02, 2025 2:47 pm abd pain May 16, 2025 8:07pm CHOLELITHIASIS May 16, 2025 8:26pm CHOLELITHIASIS May 17, 2025 11:14am CHOLELITHIASIS May 17, 2025 7:49pm CHOLELITHIASIS May 18, 2025 8: 27am Reason for Visit Admit Date Abnormal finding on imaging of liver [facility] 2024 8:26pm Cholelithiases May 16, 2025 8:26pm CHF (congestive heart failure) May 16, 2025 8:26pm COPD (chronic obstructive pulmonary dise ase) May 16, 2025 8:26pm Fibromyalgia May 16, 2025 8:26pm HTN (hypertension) May 16, 2025 8:26pm JORGE (obstructive sleep apnea) May 16, 2025 8:26pm Smoking greater than 30 pack years Septe [email or web address] 2024 8:26pm Chief Complaint Admit Date SCREENING March 02, 2025 2:47 pm abd pain May 16, 2025 8:07pm CHOLELITHIASIS May 16, 2025 8:26pm CHOLELITHIASIS May 17, 2025 11:14am CHOLELITHIASIS May 17, 2025 7:49pm CHOLELITHIASIS May 18, 2025 8: 27am CHOLELITHIASIS May 19, 2025 10 :04am Additional Source Comments INFORMATION SOURCE (unrecogn ized section and content) DATE CREATED AUTHOR 10/07/2018 [facility] DATE CREATED AUTHOR AUTHOR'S ORGANIZ ATION 12/10/2018 [facility] DATE CREATED AUTHOR AUTHOR'S ORGANIZ ATION 08/29/2021 [facility] DATE CREATED AUTHOR AUTHOR'S ORGANIZ ATION 05/22/2025 [facility] DATE CREATED AUTHOR AUTHOR'S ORGANIZ ATION 05/28/2025 [facility] Goals (unrecognized section and content) Goals may be documented in a n alternate sectionGoals may be documented in an alternate sectionGoals may be documented in an alternate sectionGoals may be documented in an alternate sectionGoals may be documented in an alternate sectionGoals may be documented in an alternate section Care Teams (unrecognized sec tion and content) Team Status: Active Member Role Status Dates Dr. Claudine Mallory DO Family Provider Active Dr. Claudine Mallory DO Primary Care Provider Active Team Status: Inactive Member Role Status Dates Claudine GARCIA Primary Care Provider, Referring Pro vider Active Dr. Myles Self MD Attending Provider Active Team Status: Inactive Member Role Status Dates Dr. Myles Self MD Attending Provider, Referring Pr ovider Active Dr. Claudine Mallory DO Primary Care Provider Active Team Status: Active Member Role Status Dates Dr. Claudine Mallory DO Primary Care Prov ider, Referring Provider, Other Provider Active Dr. Mikel Cowan DO Attending Provider Active Team Status: Inactive Member Role Status Dates Dr. Claudine Mallory DO Primary Care Prov ider, Attending Provider, Referring Provider Active Team Status: Inactive Member Role Status Dates Dr. Claudine Mallory DO Primary Care Provider, Referrin g Provider Active Vanesa Hatfield [employer]AKAGE, TE[employer] LEAKAGE-C Attending Provider Active Team Status: Inactive Member Role Status Dates Dr. Claudine Mallory DO Primary Care Provider Active Vanesa Hatfield [employer] LEAKAGE, TESTER WASTE DISPOSAL LEAKAGE-C Attending Provider, Referrin g Provider Active Team Status: Active Member Role/Relationship Status Dates Dr. Claudine Mallory DO Primary Care Provider Active Team Status: Inactive Member Role/Relationship Status Dates Dr. Claudine Mallory DO Primary Care Provider Active Start: March 02, 2025 End: March 02, 2025 Dr. Claudine Mallory DO Attending Provider Active Start: March 02, 2025 End: March 02, 2025 Dr. Claudine Mallory DO Referring Provider Active Start: March 02, 2025 End: March 02, 2025 Team Status: Active Member Role/Relationship Status Dates Dr. Claudine Mallory DO Primary care physician Active Team Status: Inactive Member Role/Relationship Status Dates Dr. Claudine Mallory DO Primary care physician Active Start: March 02, 2025 End: March 02, 2025 Dr. Claudine Mallory DO Attending physician Active Start: March 02, 2025 End: March 02, 2025 Dr. Claudine Mallory DO Referring Provider Active Start: March 02, 2025 End: March 02, 2025 Team Status: Active Member Role/Relationship Status Dates Dr. Claudine Mallory DO Primary care physician Active Start: May 16, 2025 Dr. [facility] Active Start: May 16, 2025 Dr. Zachary Coffey MD Attending physician Active Start: May 16, 2025 Team Status: Active Member Role/Relationship Status Dates Dr. Claudine Mallory DO Primary care physician Active Start: May 16, 2025 Dr. [facility] Active Start: May 16, 2025 Dr. Zachary Coffey MD Admitting physician Active Start: May 16, 2025 Dr. Zachary Coffey MD Nurse Practitioner Active Start: May 16, 2025 Dr. Danilo Salvador MD Nurse Practitioner Active Start: May 16, 2025 Dr. Connor Tadeo DO Nurse Practitioner Active Start: May 16, 2025 FEDERICO Patterson Nurse Practitioner Active S tart: May 16, 2025 AGUSTINA HeartC Nurse Practitioner Active Start: May 16, 2025 GREGOR Hernandez Nurse Practitioner Active Start: May 16, 2025 Dr. Yordan Newman MD Attending physician Active Start: May 16, 2025 Dr. Jaylen Mike MD Nurse Practitioner Active Start: April Team Status: Active Member Role/Relationship Status Dates Dr. Claudine Mallory DO Primary care physician Active Start: May 17, 2025 Dr. [facility]ar [facility] Active Start: May 17, 2025 Dr. Zachary Coffey MD Admitting physician Active Start: May 17, 2025 Dr. Zachary Coffey MD Nurse Practitioner Active Start: May 17, 2025 Dr. Danilo Salvador MD Nurse Practitioner Active Start: May 17, 2025 Dr. Connor Tadeo DO Nurse Practitioner Active Start: May 17, 2025 AGUSTINA PattersonC Nurse Practitioner Active S tart: May 17, 2025 Rebecca Singh NP-C Nurse Practitioner Active Start: May 17, 2025 GREGOR Hernandez Nurse Practitioner Active Start: May 17, 2025 Dr. Jaylen Mike MD Attending physician Active Start: April Dr. Jaylen Mike MD Nurse Practitioner Active Start: April Team Status: Active Member Role/Relationship Status Dates Dr. Claudine Mallory DO Primary care physician Active Start: May 17, 2025 Dr. Tamara Neal MD Emergency [facility] Physician Active Start: May 17, 2025 Dr. Zachary Coffey MD Admitting physician Active Start: May 17, 2025 Dr. Zachary Coffey MD Nurse Practitioner Active Start: May 17, 2025 Dr. Danilo Salvador MD Nurse Practitioner Active Start: May 17, 2025 Dr. Connor Tadeo DO Attending physician Active Start: May 17, 2025 Dr. Connor Tadeo DO Nurse Practitioner Active Start: May 17, 2025 AGUSTINA PattersonC Nurse Practitioner Active S tart: May 17, 2025 Rebecca Singh NP-C Nurse Practitioner Active Start: May 17, 2025 GREGOR Hernandez Nurse Practitioner Active Start: May 17, 2025 Dr. Yordan Newman MD Nurse Practitioner Active Start: May 17, 2025 Dr. Jaylen Mike MD Nurse Practitioner Active Start: April Team Status: Active Member Role/Relationship Status Dates Dr. Claudine Mallory DO Primary care physician Active Start: May 18, 2025 Dr. Tamara Neal MD Emergency [facility] t Physician Active Start: May 18, 2025 Dr. Zachary Coffey MD Admitting physician Active Start: May 18, 2025 Dr. Zachary Coffey MD Nurse Practitioner Active Start: May 18, 2025 Dr. Danilo Salvador MD Nurse Practitioner Active Start: May 18, 2025 Dr. Connor Tadeo DO Nurse Practitioner Active Start: May 18, 2025 AGUSTINA PattersonC Nurse Practitioner Active S tart: May 18, 2025 AGUSTINA HeartC Nurse Practitioner Active Start: May 18, 2025 GREGOR Hernandez Nurse Practitioner Active Start: May 18, 2025 Dr. Yordan Newman MD Attending physician Active Start: May 18, 2025 Dr. Yordan Newman MD Nurse Practitioner Active Start: May 18, 2025 Dr. Jaylen Mike MD Nurse Practitioner Active Start: May 18, 2025 Team Status: Active Member Role/Relationship Status Dates Dr. Claudine Mallory DO Primary care physician Active Start: May 18, 2025 Dr. Connor Tadeo DO Attending physician Active Start: May 18, 2025 Team Status: Inactive Member Role/Relationship Status Dates Dr. Claudine Mallory DO Primary care physician Active Start: May 16, 2025 End: May 19, 2025 Dr. Tamara Neal MD Emergency [facility] t Physician Active Start: May 16, 2025 End: May 19, 2025 Dr. Zachary Coffey MD Admitting physician Active Start: May 16, 2025 End: May 19, 2025 Dr. Zachary Coffey MD Nurse Practitioner Active Start: May 16, 2025 End: May 19, 2025 Dr. Danilo Salvador MD Nurse Practitioner Active Start: May 16, 2025 End: May 19, 2025 Dr. Connor Tadeo DO Nurse Practitioner Active Start: May 16, 2025 End: May 19, 2025 AGUSTINA PattersonC Nurse Practitioner Active S tart: May 16, 2025 End: May 19, 2025 AGUSTINA HeartC Nurse Practitioner Active Start: May 16, 2025 End: May 19, 2025 GREGOR Hernandez Nurse Practitioner Active Start: May 16, 2025 End: May 19, 2025 Dr. Yordan Newman MD Attending physician Active Start: May 16, 2025 End: May 19, 2025 Dr. Jaylen Mike MD Nurse Practitioner Active Start: April End: May 19, 2025 Team Status: Active Member Role/Relationship Status Dates Dr. Claudine Mallory DO Primary care physician Active Start: May 19, 2025 Dr. Tamara Neal MD Emergency Departmen t Physician Active Start: May 19, 2025 Dr. Zachary Coffey MD Admitting physician Active Start: May 19, 2025 Dr. Zachary Coffey MD Nurse Practitioner Active Start: May 19, 2025 Dr. Danilo Salvador MD Nurse Practitioner Active Start: May 19, 2025 Dr. Connor Tadeo DO Nurse Practitioner Active Start: May 19, 2025 FEDERICO Patterson Nurse Practitioner Active S tart: May 19, 2025 Rebecca Singh NP-C Nurse Practitioner Active Start: May 19, 2025 GREGOR Hernandez Nurse Practitioner Active Start: May 19, 2025 Dr. Yordan Newman MD Attending physician Active Start: May 19, 2025 Dr. Yordan Newman MD Nurse Practitioner Active Start: May 19, 2025 Dr. Jaylen Mike MD Nurse Practitioner Active Start: May 19, 2025 FOR RECORDS PERTAINING TO PATIENTS WHO ARE OR HAVE BEEN ENROLLED IN A CHEMICAL DEPENDENCY/SUBSTANCEABUSE PROGRAM, SOME INFORMATION MAY BE OMITTED. This clinical summary was aggregated from multiple sources. Caution should be exercised in using it in the provision of clinical care. This summary normalizes information from multiple sources, and as a consequence, information in this document may materially change the coding, format and clinical context of patient data. In addition, data may be omitted in some cases. CLINICAL DECISIONS SHOULD BE BASED ON THE PRIMARY CLINICAL RECORDS. [email or web address] provides no warranty or guarantee of the accuracy or completeness of information in this document.
--- OUTSIDE RECORDS SUMMARY | 2025-06-02 17:00 | XMS RPT_ITS | CCD ---
Author Organization [facility] Care Team Providers Care Demand Generation Manager Name Role Phone Vanesa Hatfield CNP Unavailable ZACHARY BAUMAN Admitting Unavailable ZACHARY BAUMAN Attending Unavailable ML GUALLPA Referring Unavailable ML GUALLPA Admitting Unavailable ML GUALLPA Attending Unavailable Claudine Duenas Primary Care Provider Unavail able Claudine Duenas Referring Provider UnavailDr. Myles Dejesus Attending Provider Dr. Claudine Mallory Primary Care Provider Dr. Claudine Mallory Referring Provider Dr. Claudine Mallory Other Provider [phone] Dr. Mikel Cowan Attending Provider Claudine Dueans Primary Care Provider Unavail able Claudine Duenas Referring Provider UnavailDr. Myles Dejesus Attending Provider Dr. Claudine Mallory Primary Care Provider Dr. Claudine Mallory Referring Provider [phone] Claudine Mallory Other Provider [phone] Dr. Mikel Cowan Attending Provider Alysia [...] Carlyle SORIANO, Dr. Ryan Nurse Practitioner Andrea FRENCH BINDER-C, Christina Nurse Practitioner [phone] Francisco FRENCH BINDER-C, Rebecca Nurse Practitioner Polina BUNDY, Kassi Nurse Practitioner [phone] Trent CABALLERO, Dr. Farr Attending Physician Unavail [...] Coffey Consulting Unavailable Jaylen Mike Consulting Unavailable Yordan Newman Consulting Unavailable Yordan Newman Attending Unavailable Jaylen Mike Attending Unavailable Sara, Claudine Primary Care Unavailable Alysia FRENCH BINDER, Vanesa Attending Unavailable Alysia FRENCH BINDER, Vanesa Referring Unavailable Sara, Claudine Primary Care [...] Unavailable Claudine Mallory Primary Care Unavailable Alysia FRENCH BINDER, Vanesa Attending Unavailable Claudine Mallory Referring Unavailable Claudine Mallory Primary Care Unavailable Alysia FRENCH BINDER, Vanesa Attending Unavailable Allergies Allergy Classification Reported Allergen(s) Allergy Type Date of Onset Reaction(s) Facility (2 sources) ciprofloxacin drug allergy 10-13-2015 Rash Pulmonary Medicine [facility] Work Phone: (1 source) codeine drug allergy 10-13-2015 Rash Pulmonary Medicine [facility] Work Phone: (1 source) codeine drug allergy 10-13-2015 Rash Pulmonary Medicine [facility] Work Phone: (12 sources) Ciprofloxacin; Translations: [CIPROFLOXACIN] Drug Allergy 11-04-2013 Vomiting [facility] Repository (12 sources) Codeine; Translations: [CODEINE] Drug Allergy 02-12-2011 Unknown [facility] Repository (1 source) Polyethylene Glycols; Translations: [POLYETHYLENE GLYCOL 3350] Drug Allergy 10-18-2016 [facility] Repository Medications Current Medications Medication Drug Class(es) [...] 1:00am docusate sodium 50 mg / sennosides, custodial 8.6 mg oral tablet (1 source) Start: 05-19-2025 DULoxetine 30 mg delayed release oral capsule (10 sources) Serotonin and Norepinephrine Reuptake Inhibitor Start: 10-29-2023 take 1 capsule by mouth once daily Start: 10-29-2023 take 1 capsule by mo [facility] once daily take 1 tablet by miguel th once daily CYMBALTA 60 MG CPEP One tablet by mouth daily DULOXETINE HCL [id number] Claudine Mallory DO Qampveyezmq-Ocdkmhuhz-Flydlu er (15 sources) Start: 11-22-2024 Start: 11-22-2024 Fluticasone-Um eclidin-Vilanter (Trelegy Ellipta) 200-62.5-25 mcg blister with device Active 1 NMA INHALATION DAILY 60 11 November 22, 2024 2:01pm sob Complies with drug therapy Start: 11-22-2024 Fluticasone-Um eclidin-Vilanter (Trelegy Ellipta) 200-62.5-25 mcg blister with device Active 1 NMA INHALATION DAILY 60 November 22, 2024 2:01pm Start: 08-09-2024 End: 11-22-2024 Pmcxbvoorlc-Dhpcginim-Fxdyps er (Trelegy Ellipta) 200-62.5-25 mcg blister with device Discontinued 1 NMA INHALATION DAILY 60 2 August 09, 2024 9:49am November 22, 2024 2:01pm Start: 05-03-2024 End: 08-09-2024 Udqkdounegc-Eqwmnrmyd-Msdquc er (Trelegy Ellipta) 200-62.5-25 mcg blister with device Discontinued 1 NMA INHALATION DAILY 60 2 May 03, 2024 12:39pm August 09, 2024 9:49am Start: 10-09-2023 End: 05-03-2024 Diztkthektc-Xhvfvtgmb-Qisbjd er (Trelegy Ellipta) 200-62.5-25 mcg blister with [...] 10, 2019 1:00am October 09, 2023 9:39am Multivitamin,Tr-Hmvw-Zqsgtau s (5 sources) Start: 10-18-2016 take 1 tablet by mouth once daily Multivitamin,Qb-Qisj-Vbrhwmpw Active 1 TABLET PO DAILY October 18, 2016 12:00am Start: 10-18-2016 take 1 tablet by miguel th once daily Multivitamin,Pm-Zbdj-Evvevnvd Active 1 T ABLET PO DAILY October 18, 2016 1:00am Multivitamin,Fq-Ybwf-Knokult s 1 TABLET tablet (3 sources) Start: 10-18-2016 take 1 tablet by mouth once daily Start: 10-18-2016 take 1 tablet by miguel th once daily Multivitamin,Gi-Iopx-Lrbnxejr 1 TABLET t ablet Active 1 {tbl} PO DAILY October 18, 2016 1:00am supplement Complies with drug therapy Start: 10-18-2016 take 1 tablet by miguel th once daily Multivitamin,Hq-Liai-Peqfztmk 1 TABLET t ablet Active 1 {tbl} [...] by mouth daily POTASSIUM CHLORIDE OLIVIER CR [id number] Claudine Mallory DO Completed/Discontinued Medications Medication Drug Class(es) Dates Sig (Normalized) Sig (Original) acetaminophen 325 mg / HYDROcodone bitartrate 7.5 mg oral tablet (3 sources) Opioid Agonist End: 10-13-2015 HYDROCODONE-ACETAMI NOPHEN 7.5-325 MG TABS q 6 hrs prn HYDROCODONE-ACETAMI NOPHEN 15768496324 Dennise Bobby LPN [id number] 200 actuat albuterol 0.09 mg/actuat metered dose [...] puffs q 4 hrs prn ALBUTEROL SULFATE 73215118440 Vanesa Hatfield CNP PROAIR HFA 108 ( 90 Base) MCG/ACT AERS 2 puffs q 4 hrs prn ALBUTEROL SULFATE [id number] Dennise Bobby LPN amitriptyline hydrochloride 25 mg oral tablet (3 sources) Tricyclic Antidepressant End: 08-15-2015 take 1 tablet by mouth once daily AMITRIPTYLINE HCL 25 MG TABS One tablet by mouth daily AMITRIPTYLINE HCL 26303502543 Tracie Mayo aspirin (1 source) Nonsteroidal Anti-inflammatory Drug Start: 08-15-2015 take 1 tablet by mouth once daily ASPIR-81 81 MG TBEC One tablet by mouth daily ASPIRIN 86290105550 Tracie Mayo azithromycin 250 mg oral tablet (4 sources) Macrolide Antimicrobial Start: 11-13-2015 End: 09-17-2016 AZITHROMYCIN 250 MG TABS 2 tablets by mouth today and then 1 tablet daily for the next 4 days AZITHROMYCIN [id number] Kaia Mendiola FRENCH BINDER BUDESONIDE-FORMOTER OL FUMARATE (5 sources) Corticosteroid, beta2-Adrenergic Agonist SYMBICORT 80-4.5 MCG/ACT AERO 2 puffs bid BUDESONIDE-FORMOTE ROL FUMARATE 69120604475 Vanesa Hatfield CNP End: 08-15-2015 SYMBICORT 80-4.5 MCG/ACT AER O 2 puffs bid BUDESONIDE-FORMOTEROL FUMARATE 55759769538 Tracie Mayo SYMBICORT 80-4.5 MCG/ACT AERO 2 puffs bid BUDESONIDE-FORMOTEROL FUMARATE 82948127761 Rebeca Ferguson SYMBICORT 80-4.5 MCG/ACT AERO 2 puffs bid BUDESONIDE-FORMOTEROL FUMARATE 75364608386 Dennise Bobby LPN 12 hr buPROPion hydrochloride 150 mg extended release oral tablet (1 source) Aminoketone Start: 10-13-2015 take 1 tablet by mouth twice daily BUPROPION HCL ER (SR) 150 MG EW74O-VFE 1 tab po twice daily BUPROPION HCL 09063493720 Claudine Bety Mallory DO capsaicin (1 source) Start: 11-10-2015 TRIXAICIN 0.02 5 % EXT CREA Apply to soles of feet as needed for burning sensation daily CAPSICUM OLEORESIN 87443724238 Claudine A Sara DO DICLOFENAC SODIUM (4 sources) Nonsteroidal Anti-inflammatory Drug Start: 08-15-2015 VOLTAREN 1 % GEL 2 gr to affected area three times a day DICLOFENAC SODIUM 30442348045 Claudine A Sara DO End: 08-15-2015 VOLTAREN 1 % GEL apply tid 2 DICLOFENAC SODIUM 33662776063 Tracie Mayo VOLTAREN 1 % GEL apply tid DICLOFENAC SODIUM 32009619063 Rebeca Ferguson VOLTAREN 1 % GEL apply tid DICLOFENAC SODIUM 07536341422 Dennise Bobby LPN docusate sodium 100 mg oral capsule (1 source) Start: 11-30-2015 take 1 capsule by mouth twice daily as needed for constipation DOCUSATE SODIUM 100 MG CAPS One capsule by mouth twice daily as needed for constipation DOCUSATE SODIUM 84672738311 Claudine Mallory DO ESTRADIOL (2 sources) Estrogen ESTRACE 0.1 MG/G M CREA twice weekly ESTRADIOL 64235990963 Rebecahomero Ferguson ESTRACE 0.1 MG/G M CREA twice weekly ESTRADIOL 19690281377 Dennise Bobby LPN ferrous sulfate 325 mg oral tablet (2 sources) Start: 08-23-2015 take 1 tablet by mouth once daily FERROUS SULFATE 325 (65 Fe) MG TABS One tablet by mouth daily FERROUS SULFATE 15697091180 Vanesa Hatfield CNP Start: 08-23-2015 [facility] IRON 325 ( 65 Fe) MG TABS 1 tab daily FERROUS SULFATE 54513855600 Vanesa Hatfield PAINTING SUPERVISOR Fluticasone Furoate-Vilanterol (17 sources) Corticosteroid, beta2-Adrenergic Agonist [...] MCG/INH AEPB 1 puff daily FLUTICASONE FUROATE-VILANTEROL 73120735503 Vanesa Hatfield CNP furosemide 20 mg oral tablet (2 sources) Loop Diuretic Start: 11-13-2015 take 1 tablet by mouth once daily FUROSEMIDE 20 MG TABS One tablet by mouth daily for swelling FUROSEMIDE 99697632359 Claudine Mallory DO gabapentin 400 mg oral tablet (3 sources) Anti-epileptic Agent Start: 08-15-2015 End: 05-30-2016 take 1 tablet by mouth four times daily NEURONTIN 400 MG CAPS One tablet by mouth 4 times daily GABAPENTIN 46473236102 Tracie Ku OFFICE EQUIPMENT MECHANIC take 1 tablet by mouth four time s daily NEURONTIN 300 MG CAPS One tablet by mouth four times daily GABAPENTIN 58051487566 Dennise Bobby OFFICE EQUIPMENT MECHANIC hydroCHLOROthiazide 25 mg oral tablet (9 sources) [...] by mouth daily for anxiety HYDROXYZINE HCL 63388463558 Claudine A Sara DO HYDROXYZINE HCL 25 MG TABS q 6 hrs prn HYDROXYZINE HCL 64583401030 Dennise Bobby LPN lisinopril 10 mg oral tablet (2 sources) Angiotensin Converting Enzyme Inhibitor Start: 08-15-2015 End: 10-13-2015 take 1 tablet by mouth once daily LISINOPRIL 10 MG TABS One tablet by mouth daily LISINOPRIL 10373544052 Claudine A Sara DO mirtazapine 15 mg disintegrating oral tablet (2 sources) Start: 08-15-2015 take 2 tablets by mouth once daily, then take 1 tablet by mouth at bedtime MIRTAZAPINE 15 MG TBDP 2 tablet by mouth daily and 1 po at bedtime MIRTAZAPINE 52038413773 Claudine A Sara DO NYSTATIN-TRIAMCINOLO NE OINT (2 sources) Polyene Antifungal, Corticosteroid Start: 11-10-2015 NYSTATIN-TRIAMCI NOLONE OINT apply to affected areas twice daily NYSTATIN-TRIAMCI NOLONE OINT [id number] Claudine A Sara DO NYSTATIN-TRIAMCI NOLONE OINT apply bid NYSTATIN-TRIAMCINOLONE OINT [phone] Dennise Bobby LPN omeprazole 20 mg oral tablet (1 source) Proton Pump Inhibitor take 1 tablet by mouth once daily PRILOSEC 20 MG CPDR One tablet by mouth daily OMEPRAZOLE 82650869726 Dennise Bobby LPN ondansetron 4 mg oral tablet (2 sources) Serotonin-3 Receptor Antagonist Start: 6 take 1 tablet by mouth four times daily as needed for nausea ONDANSETRON HCL 4 MG TABS One tablet by mouth four times daily as needed for nausea ONDANSETRON HCL 23689478329 Claudine A Sara DO ZOFRAN TABS 4mg q 8 hrs prn ONDANSETRON HCL TABS 61583452954 Dennise Bobby LPN PEDIATRIC SRDEOVNK-AODKUZXN-T (1 source) Start: 08-15-2015 take 1 tablet by mouth once daily ONE-A-DAY MARLEY ROLON CHEW 2 tablet by mouth daily PEDIATRIC PEZKFRGR-VJPXGBEB-F 90624426591 Tracie Mayo predniSONE 10 mg oral tablet (3 sources) Corticosteroid Start: 05-30-2016 End: 06-11-2016 PREDNISONE 10 MG TABS Take 4 tabs by mouth for 3 days, then 3 tabs by mouth for 3 days, then 2 tabs by mourth for 3 days, then 1 tab by mouth for 3 days. PREDNISONE 98823863692 Kaia Mendiola NP Start: 12-13-2015 End: 12-22-2015 PREDNISONE 20 MG TABS 2 tabs x 3 days, 1 tab x 3 days, 1/2 tab x 4 days PREDNISONE 09751790623 Claudine Bety Sara Start: 11-13-2015 End: 11-25-2015 PREDNISONE 10 MG TABS Take 4 tabs by mouth for 3 days, then 3 tabs by mouth for 3 days, then 2 tabs by mourth for 3 days, then 1 tab by mouth for 3 days. PREDNISONE 86759064095 Vanesa Hatfield CNP pregabalin 75 mg oral capsule (1 source) Start: 05-30-2016 take 1 tablet by mouth three times daily LYRICA 75 MG CAPS One tablet by mouth three times daily PREGABALIN 17699074340 Tracie Ku LPN QUEtiapine 100 mg oral tablet (3 sources) Atypical Antipsychotic Start: 11-08-2015 take 1 tablet by mouth once daily QUETIAPINE FUMARATE 100 MG TABS One tablet by mouth daily QUETIAPINE FUMARATE 72659108080 Claudine Mallory DO Start: 10-13-2015 End: 11-08-2015 take 1 tablet by mouth once daily QUETIAPINE FUMARATE 50 MG TABS One tablet by mouth daily for bipolar disorder QUETIAPINE FUMARATE 79647350443 Claudine Mallory DO triamcinolone acetonide 1 mg/ml topical cream (1 source) Corticosteroid TRIAMCINOLONE ACETONIDE 0.1 % CREA apply bid TRIAMCINOLONE ACETONIDE [id number] Dennise Bobby OFFICE EQUIPMENT MECHANIC 30 actuat umeclidinium 0.0625 mg/actuat dry powder [...] MCG/INH AEPB 1 puff dialy UMECLIDINIUM BROMIDE 81073374237 Vanesa Hatfield PAINTING SUPERVISOR Problems Active Problems Problem Classification Problem Date [...] Interpretation Reference Range Facility Gastroenterology Visit Repor [facility] 05-26-2025 Gastroenterology Visit Report [facility] Gastroenterology [address] [place] [address] OFFICE VISIT Date of Service: 05/26/25 MR#: [id number] Acct: [id number] Name: NORA GRANDE Rep #: [id number] : 1955 Provider: Connor Tadeo DO Age/Sex: 70/F Location: [facility] Status: Signed Intake Vital Signs [...] the office today for hospital follow up. [facility] hospitalization 05.16.25 - 05.19.25 pt presents with [...] no recurren (more content not included)... Normal [facility] CBC W/Diff, Automatedon 10-0 Absolute Neut Normal 2.0-7.7 [facility] Comment on above: Result Comment: Canc elled via OM: Order cancelled - Patient discharged Performed By: #### L 100.0100, L500.3400 ####[facility] [address] [place], [address] HCT Normal 37-47 [facility] Comment on above: Result Comment: Canc elled via OM: Order cancelled - Patient discharged Performed By: #### L 100.0100, L500.3400 ####[facility] [address] [place], [address] HGB Normal 12.0-15.0 [facility] Comment on above: Result Comment: Canc elled via OM: Order cancelled - Patient discharged Performed By: #### L 100.0100, L500.3400 ####[facility] [address] [place], [address] MCH Normal 27.0-32.0 [facility] Comment on above: Result Comment: Canc elled via OM: Order cancelled - Patient discharged Performed By: #### L 100.0100, L500.3400 ####[facility] [address] [place], [address] MCHC Normal 32-36 [facility] Comment on above: Result Comment: Canc elled via OM: Order cancelled - Patient discharged Performed By: #### L 100.0100, L500.3400 ####[facility] [address] [place], [address] MCV Normal 81-99 [facility] Comment on above: Result Comment: Canc elled via OM: Order cancelled - Patient discharged Performed By: #### L 100.0100, L500.3400 ####[facility] [address] [place], [address] NEUT% Normal 47-70 [facility] Comment on above: Result Comment: Canc elled via OM: Order cancelled - Patient discharged Performed By: #### L 100.0100, L500.3400 ####[facility] [address] [place], [address] PLT Normal 150-450 [facility] Comment on above: Result Comment: Canc elled via OM: Order cancelled - Patient discharged Performed By: #### L 100.0100, L500.3400 ####[facility] [address] [place], [address] RBC Normal 4.2-5.4 [facility] Comment on above: Result Comment: Canc elled via OM: Order cancelled - Patient discharged Performed By: #### L 100.0100, L500.3400 ####[facility] [address] [place], [address] RDW CV Normal 11.6-14.6 [facility] Comment on above: Result Comment: Canc elled via OM: Order cancelled - Patient discharged Performed By: #### L 100.0100, L500.3400 ####[facility] [address] [place], [address] RDW SD Normal 35.1-43.9 [facility] Comment on above: Result Comment: Canc elled via OM: Order cancelled - Patient discharged Performed By: #### L 100.0100, L500.3400 ####[facility] [address] [place], [address] WBC Normal 4.4-11.0 [facility] Comment on above: Result Comment: Canc elled via OM: Order cancelled - Patient discharged Performed By: #### L 100.0100, L500.3400 ####[facility] [address] [place], [address] Liver Profileon 05-21-2025 ALB Normal 3.4-4.8 [facility] Comment on above: Result Comment: Canc elled via OM: Order cancelled - Patient discharged Performed By: #### L 100.0100, L500.3400 ####[facility] [address], [address] ALK PHOS Normal 35-104 [facility] Comment on above: Result Comment: Canc elled via OM: Order cancelled - Patient discharged Performed By: #### L 100.0100, L500.3400 ####[facility] [address] [place], [address] ALT Normal <=34 [facility] Comment on above: Result Comment: Canc elled via OM: Order cancelled - Patient discharged Performed By: #### L 100.0100, L500.3400 ####[facility] [address] [place], [address] AST Normal <=31 [facility] Comment on above: Result Comment: Canc elled via OM: Order cancelled - Patient discharged Performed By: #### L 100.0100, L500.3400 ####[facility] [address] [place], [address] D BILI Normal 0.00-0.30 [facility] Comment on above: Result Comment: Canc elled via OM: Order cancelled - Patient discharged Performed By: #### L 100.0100, L500.3400 ####[facility] [address] [place], [address] T BILI Normal 0.00-1.30 [facility] Comment on above: Result Comment: Canc elled via OM: Order cancelled - Patient discharged Performed By: #### L 100.0100, L500.3400 ####[facility] [address], [address] T PROT Normal 5.9-8.4 [facility] Comment on above: Result Comment: Canc elled via OM: Order cancelled - Patient discharged Performed By: #### L 100.0100, L500.3400 ####[facility] [address], [address] CBC W/Diff, Automatedon 10-0 Absolute Neut Normal 2.0-7.7 [facility] Comment on above: Result Comment: Canc elled via OM: Order cancelled - Patient discharged Performed By: #### L 100.0100, L500.3400 #### [facility] [address] [place], [address] HCT Normal 37-47 [facility] Comment on above: Result Comment: Canc elled via OM: Order cancelled - Patient discharged Performed By: #### L 100.0100, L500.3400 #### [facility] [address] [place], [address] HGB Normal 12.0-15.0 [facility] Comment on above: Result Comment: Canc elled via OM: Order cancelled - Patient discharged Performed By: #### L 100.0100, L500.3400 #### [facility] [address] [place], [address] MCH Normal 27.0-32.0 [facility] Comment on above: Result Comment: Canc elled via OM: Order cancelled - Patient discharged Performed By: #### L 100.0100, L500.3400 #### [facility] [address] [place], [address] MCHC Normal 32-36 [facility] Comment on above: Result Comment: Canc elled via OM: Order cancelled - Patient discharged Performed By: #### L 100.0100, L500.3400 #### [facility] [address] [place], [address] MCV Normal 81-99 [facility] Comment on above: Result Comment: Canc elled via OM: Order cancelled - Patient discharged Performed By: #### L 100.0100, L500.3400 #### [facility] [address] [place], [address] NEUT% Normal 47-70 [facility] Comment on above: Result Comment: Canc elled via OM: Order cancelled - Patient discharged Performed By: #### L 100.0100, L500.3400 #### [facility] [address] [place], [address] PLT Normal 150-450 [facility] Comment on above: Result Comment: Canc elled via OM: Order cancelled - Patient discharged Performed By: #### L 100.0100, L500.3400 #### [facility] [address] [place], [address] RBC Normal 4.2-5.4 [facility] Comment on above: Result Comment: Canc elled via OM: Order cancelled - Patient discharged Performed By: #### L 100.0100, L500.3400 #### [facility] [address] [place], [address] RDW CV Normal 11.6-14.6 [facility] Comment on above: Result Comment: Canc elled via OM: Order cancelled - Patient discharged Performed By: #### L 100.0100, L500.3400 #### [facility] [address] [place], [address] RDW SD Normal 35.1-43.9 [facility] Comment on above: Result Comment: Canc elled via OM: Order cancelled - Patient discharged Performed By: #### L 100.0100, L500.3400 #### [facility] [address] [place], [address] WBC Normal 4.4-11.0 [facility] Comment on above: Result Comment: Canc elled via OM: Order cancelled - Patient discharged Performed By: #### L 100.0100, L500.3400 #### [facility] [address] [place], [address] Liver Profileon 05-20-2025 ALB Normal 3.4-4.8 [facility] Comment on above: Result Comment: Canc elled via OM: Order cancelled - Patient discharged Performed By: #### L 100.0100, L500.3400 #### [facility] [address] [place], [address] ALK PHOS Normal 35-104 [facility] Comment on above: Result Comment: Canc elled via OM: Order cancelled - Patient discharged Performed By: #### L 100.0100, L500.3400 #### [facility] [address] [place], [address] ALT Normal <=34 [facility] Comment on above: Result Comment: Canc elled via OM: Order cancelled - Patient discharged Performed By: #### L 100.0100, L500.3400 #### [facility] [address] [place], [address] AST Normal <=31 [facility] Comment on above: Result Comment: Canc elled via OM: Order cancelled - Patient discharged Performed By: #### L 100.0100, L500.3400 #### [facility] [address] [place], [address] D BILI Normal 0.00-0.30 [facility] Comment on above: Result Comment: Canc elled via OM: Order cancelled - Patient discharged Performed By: #### L 100.0100, L500.3400 #### [facility] [address] [place], [address] T BILI Normal 0.00-1.30 [facility] Comment on above: Result Comment: Canc elled via OM: Order cancelled - Patient discharged Performed By: #### L 100.0100, L500.3400 #### [facility] [address] [place], [address] T PROT Normal 5.9-8.4 [facility] Comment on above: Result Comment: Canc elled via OM: Order cancelled - Patient discharged Performed By: #### L 100.0100, L500.3400 #### [facility] [address] [place], [address] Absolute lymphocyte countOrd ered By: Yordan Newman on 05-19-2025 Lymphocytes Auto (Unsp spec) [#/Vol] 1.50 10*3/uL 0.83-4.51 [facility] Absolute neutrophil countOrd ered By: Yordan Newman on 05-19-2025 Neutrophils (Bld) [#/Vol] 5.7 10*3/uL 2.0-7.7 [facility] Anion gap in Serum or Plasma Ordered By: Yordan Newman on 05-19-2025 Anion gap [Moles/Vol] 11 mmol/L 5-15 [facility] Automated lymphocyte count a s percentage of total leukocytesOrdered By: Yordan Newman on 05-19-2025 Lymphocytes/100 WBC Auto (Unsp spec) 17.3 % Low 19-41 [facility] BUN/creatinine ratioOrdered By: Yordan Newman on 05-19-2025 Urea nitrogen/Creatinine [Mass ratio] 8.7 mg/mg Low 10- [facility] Basic Metabolic Profile (BMP )on 05-19-2025 BUN/CRE 8.7 RATIO Low 10- [facility] Comment on above: Performed By: #### L 500.2500, L500.3400, L100.0100, L501.5200, L501.2300 ####[facility] [address] [place], [address] Calcium [Mass/Vol] 8.5 mg/dL Normal 7.6-11.0 [facility] Comment on above: Performed By: #### L 500.2500, L500.3400, L100.0100, L501.5200, L501.2300 ####[facility] [address] [place], [address] Chloride [Moles/Vol] 109 mmol/L High 98-108 [facility] Comment on above: Performed By: #### L 500.2500, L500.3400, L100.0100, L501.5200, L501.2300 ####[facility] [address] [place], [address] CO2 [Moles/Vol] 19.1 mmol/L Low 21.0-32.0 [facility] Comment on above: Performed By: #### L 500.2500, L500.3400, L100.0100, L501.5200, L501.2300 ####[facility] [address] [place], [address] Creatinine [Mass/Vol] 1.00 mg/dL Normal 0.70-1.20 [facility] Comment on above: Performed By: #### L 500.2500, L500.3400, L100.0100, L501.5200, L501.2300 ####[facility] [address] [place], [address] ECRCL 46.06 ml/min Low 50-250 [facility] Comment on above: Performed By: #### L 500.2500, L500.3400, L100.0100, L501.5200, L501.2300 ####[facility] [address] [place], [address] GAP 11 Normal 5-15 [facility] Comment on above: Performed By: #### L 500.2500, L500.3400, L100.0100, L501.5200, L501.2300 ####[facility] [address] [place], [address] GFR/1.73 sq M.predicted among non-blacks MDRD (S/P/Bld) [Vol rate/Area] 61 mL/min/{1.73_m2} Normal >60 [facility] Comment on above: Result Comment: mL/m in/1.73m2 CKD-EPI Creatinine Equation (2020) Performed By: #### L 500.2500, L500.3400, L100.0100, L501.5200, L501.2300 ####[facility] [address] [place], [address] Glucose [Mass/Vol] 201 mg/dL High 70-99 [facility] Comment on above: Performed By: #### L 500.2500, L500.3400, L100.0100, L501.5200, L501.2300 ####[facility] [address] [place], [address] Potassium [Moles/Vol] 4.1 mmol/L Normal 3.3-5.1 [facility] Comment on above: Performed By: #### L 500.2500, L500.3400, L100.0100, L501.5200, L501.2300 ####[facility] [address] [place], [address] Sodium [Moles/Vol] 139 mmol/L Normal 133-145 [facility] Comment on above: Performed By: #### L 500.2500, L500.3400, L100.0100, L501.5200, L501.2300 ####[facility] [address] [place], [address] Urea nitrogen [Mass/Vol] 9 mg/dL Normal 4-19 [facility] Comment on above: Performed By: #### L 500.2500, L500.3400, L100.0100, L501.5200, L501.2300 ####[facility] [address] [place], [address] Basophil percentageOrdered B y: Yordan Newman on 05-19-2025 Basophils/100 WBC (Bld) 0.5 % 0-1 [facility] Bilirubin directOrdered By: Yordan Newman on 05-19-2025 Bilirubin.direct [Mass/Vol] 0.11 mg/dL 0.00-0.30 [facility] Bilirubin, totalOrdered By: Yordan Newman on 05-19-2025 Bilirubin [Mass/Vol] 0.30 mg/dL 0.00-1.30 [facility] CBC W/Diff, Automatedon Absolute Lymph 1.50 X10 3/uL Normal 0.83-4.51 [facility] Comment on above: Performed By: #### L 500.2500, L500.3400, L100.0100, L501.5200, L501.2300 ####[facility] [address] [place], [address] Absolute Neut 5.7 X10 3/uL Normal 2.0-7.7 [facility] Comment on above: Performed By: #### L 500.2500, L500.3400, L100.0100, L501.5200, L501.2300 ####[facility] [address] [place], [address] Basophils/100 WBC (Bld) 0.5 % Normal 0-1 [facility] Comment on above: Performed By: #### L 500.2500, L500.3400, L100.0100, L501.5200, L501.2300 ####[facility] [address] [place], [address] Eosinophils/100 WBC (Bld) 0.6 % Normal 0-5 [facility] Comment on above: Performed By: #### L 500.2500, L500.3400, L100.0100, L501.5200, L501.2300 ####[facility] [address] [place], [address] Erythrocyte distribution width (RBC) [Ratio] 14.1 % Normal 11.6-14.6 [facility] Comment on above: Performed By: #### L 500.2500, L500.3400, L100.0100, L501.5200, L501.2300 ####[facility] [address] [place], [address] Hematocrit (Bld) [Volume fraction] 37.1 % Normal 37-47 [facility] Comment on above: Performed By: #### L 500.2500, L500.3400, L100.0100, L501.5200, L501.2300 ####[facility] [address] [place], [address] Hemoglobin (Bld) [Mass/Vol] 12.2 g/dL Normal 12.0-15.0 [facility] Comment on above: Performed By: #### L 500.2500, L500.3400, L100.0100, L501.5200, L501.2300 ####[facility] [address] [place], [address] IG% 1.500 High 0.0-0.9 [facility] Comment on above: Result Comment: IG% - Immature Granulocytes (promyelocytes, myelocytes and metamyelocytes) > 1% indicates that a LEFT SHIFT is Present. Performed By: #### L 500.2500, L500.3400, L100.0100, L501.5200, L501.2300 ####[facility] [address] [place], [address] Lymphocytes/100 WBC (Bld) 17.3 % Low 19-41 [facility] Comment on above: Performed By: #### L 500.2500, L500.3400, L100.0100, L501.5200, L501.2300 ####[facility] [address] [place], [address] MCH (RBC) [Entitic mass] 29.6 pg Normal 27.0-32.0 [facility] Comment on above: Performed By: #### L 500.2500, L500.3400, L100.0100, L501.5200, L501.2300 ####[facility] [address] [place], [address] MCHC (RBC) [Mass/Vol] 32.9 g/dL Normal 32-36 [facility] Comment on above: Performed By: #### L 500.2500, L500.3400, L100.0100, L501.5200, L501.2300 ####[facility] [address] [place], [address] MCV (RBC) [Entitic vol] 90.0 fL Normal 81-99 [facility] Comment on above: Performed By: #### L 500.2500, L500.3400, L100.0100, L501.5200, L501.2300 ####[facility] [address] [place], [address] Monocytes/100 WBC (Bld) 14.9 % High 0-10 [facility] Comment on above: Performed By: #### L 500.2500, L500.3400, L100.0100, L501.5200, L501.2300 ####[facility] [address] [place], [address] Neutrophils/100 WBC (Bld) 65.2 % Normal 47-70 [facility] Comment on above: Performed By: #### L 500.2500, L500.3400, L100.0100, L501.5200, L501.2300 ####[facility] [address] [place], [address] Nucleated RBC (Bld) [#/Vol] 0 10*3/uL Normal 0-5 [facility] Comment on above: Performed By: #### L 500.2500, L500.3400, L100.0100, L501.5200, L501.2300 ####[facility] [address] [place], [address] Platelet mean volume (Bld) [Entitic vol] 10.8 fL Normal 6.2-12.0 [facility] Comment on above: Performed By: #### L 500.2500, L500.3400, L100.0100, L501.5200, L501.2300 ####[facility] [address] [place], [address] Platelets (Bld) [#/Vol] 318 10*3/uL Normal 150-450 [facility] Comment on above: Performed By: #### L 500.2500, L500.3400, L100.0100, L501.5200, L501.2300 ####[facility] [address] [place], [address] RBC (Bld) [#/Vol] 4.12 10*6/uL Low 4.2-5.4 [facility] Comment on above: Performed By: #### L 500.2500, L500.3400, L100.0100, L501.5200, L501.2300 ####[facility] [address] [place], [address] RDW SD 46.6 fl High 35.1-43.9 [facility] Comment on above: Performed By: #### L 500.2500, L500.3400, L100.0100, L501.5200, L501.2300 ####[facility] [address] [place], [address] WBC (Bld) [#/Vol] 8.7 10*3/uL Normal 4.4-11.0 [facility] Comment on above: Performed By: #### L 500.2500, L500.3400, L100.0100, L501.5200, L501.2300 ####[facility] [address] [place], [address] Carbon dioxide, total [Moles /volume] in Central venous bloodOrdered By: Yordan Newman on 05-19-2025 CO2 [Moles/Vol] 19.1 mmol/L Low 21.0-32.0 [facility] Chloride assayOrdered By: Shantanu Newman on 05-19-2025 Chloride [Moles/Vol] 109 mmol/L High 98-108 [facility] Eosinophil percentageOrdered By: Yordan Newman on 05-19-2025 Eosinophils/100 WBC (Bld) 0.6 % 0-5 [facility] Erythrocyte distribution wid th ratioOrdered By: Yordan Newman on 05-19-2025 Erythrocyte distribution width (RBC) [Ratio] 14.1 % 11.6-14.6 [facility] Erythrocyte distribution wid th standard deviationOrdered By: Yordan Newman on 05-19-2025 Erythrocyte distribution width (RBC) [Ratio] 46.6 fl High 35.1-43.9 [facility] Glomerular filtration rate ( GFR) estimation/1.73 sq m using serum, plasma, or whole bOrdered By: Yordan Newman on 05-19-2025 GFR/1.73 sq M.predicted among non-blacks MDRD (S/P/Bld) [Vol rate/Area] 61 mL/min/{1.73_m2} >60 [facility] Comment on above: mL/min/1.73m2 CKD-EP I Creatinine Equation (2020) Hematocrit Auto (Bld) [Volum e fraction]Ordered By: Yordan Newman on 05-19-2025 Hematocrit (Bld) [Volume fraction] 37.1 % 37-47 [facility] Hemoglobin measurementOrdere d By: Yordan Newman on 05-19-2025 Hemoglobin (Bld) [Mass/Vol] 12.2 g/dL 12.0-15.0 [facility] Immature granulocytes/100 WB C Auto (Bld)Ordered By: Yordan Newman on 05-19-2025 Immature granulocytes/100 WBC (Bld) 1.500 % High 0.0-0.9 [facility] Comment on above: IG% - Immature Granu locytes (promyelocytes, myelocytes and metamyelocytes) > 1% indicates that a LEFT SHIFT is Present. Laboratory - Chemistry and C hemistry - challengeOrdered By: Yordan Newman on 05-19-2025 AST [Catalytic activity/Vol] 16 U/L <32 [facility] Liver Profileon 05-19-2025 Albumin [Mass/Vol] 3.1 g/dL Low 3.4-4.8 [facility] Comment on above: Performed By: #### L 500.2500, L500.3400, L100.0100, L501.5200, L501.2300 ####[facility] [address] [place], [address] ALK PHOS 59 U/L Normal 35-104 [facility] Comment on above: Performed By: #### L 500.2500, L500.3400, L100.0100, L501.5200, L501.2300 ####[facility] [address] [place], [address] ALT [Catalytic activity/Vol] 12 U/L Normal <=34 [facility] Comment on above: Performed By: #### L 500.2500, L500.3400, L100.0100, L501.5200, L501.2300 ####[facility] [address] [place], [address] AST [Catalytic activity/Vol] 16 U/L Normal <=31 [facility] Comment on above: Performed By: #### L 500.2500, L500.3400, L100.0100, L501.5200, L501.2300 ####[facility] [address] [place], [address] Bilirubin [Mass/Vol] 0.30 mg/dL Normal 0.00-1.30 [facility] Comment on above: Performed By: #### L 500.2500, L500.3400, L100.0100, L501.5200, L501.2300 ####[facility] [address] [place], [address] Bilirubin.direct [Mass/Vol] 0.11 mg/dL Normal 0.00-0.30 [facility] Comment on above: Performed By: #### L 500.2500, L500.3400, L100.0100, L501.5200, L501.2300 ####[facility] [address] [place], [address] Globulin (S) [Mass/Vol] 2.5 g/dL Normal 2.2-4.2 [facility] Comment on above: Performed By: #### L 500.2500, L500.3400, L100.0100, L501.5200, L501.2300 ####[facility] [address] [place], [address] T PROT 5.6 g/dL Low 5.9-8.4 [facility] Comment on above: Performed By: #### L 500.2500, L500.3400, L100.0100, L501.5200, L501.2300 ####[facility] [address] [place], [address] MCV (mean corpuscular volume ) determinationOrdered By: Yordan Newman on 05-19-2025 MCV (RBC) [Entitic vol] 90.0 fL 81-99 [facility] Magnesiumon 05-19-2025 Magnesium [Mass/Vol] 2.3 mg/dL High 1.5-2.2 [facility] Comment on above: Performed By: #### L 500.2500, L500.3400, L100.0100, L501.5200, L501.2300 ####[facility] [address] [place], [address] Magnesium measurement (mass/ volume)Ordered By: Yordan Newman on 05-19-2025 Magnesium (Unsp spec) [Mass/Vol] 2.3 mg/dL High 1.5-2.2 [facility] Mean corpuscular hemoglobin (MCH) determinationOrdered By: Yordan Newman on 05-19-2025 MCH (RBC) [Entitic mass] 29.6 pg 27.0-32.0 [facility] Mean corpuscular hemoglobin concentration (MCHC) determinationOrdered By: Yordan Newman on 05-19-2025 MCHC (RBC) [Mass/Vol] 32.9 g/dL 32-36 [facility] Mean platelet volume determi nationOrdered By: Yordan Newman on 05-19-2025 Platelet mean volume (Bld) [Entitic vol] 10.8 fL 6.2-12.0 [facility] Monocyte percentageOrdered B y: Yordan Newman on 05-19-2025 Monocytes/100 WBC (Bld) 14.9 % High 0-10 [facility] Neutrophil percentageOrdered By: Yordan Newman on 05-19-2025 Neutrophils/100 WBC (Bld) 65.2 % 47-70 [facility] Nucleated red blood cell per centageOrdered By: Yordan Newman on 05-19-2025 Nucleated RBC/100 WBC (Bld) [Ratio] 0 % 0-5 [facility] Phosphoruson 05-19-2025 Phosphate [Mass/Vol] 3.0 mg/dL Normal 2.7-4.5 [facility] Comment on above: Performed By: #### L 500.2500, L500.3400, L100.0100, L501.5200, L501.2300 ####[facility] [address] [place], [address] Platelet countOrdered By: Shantanu Newman on 05-19-2025 Platelets (Bld) [#/Vol] 318 10*3/uL 150-450 [facility] Potassium measurement (mass/ volume)Ordered By: Yordan Newman on 05-19-2025 Potassium (Unsp spec) [Mass/Vol] 4.1 mmol/L 3.3-5.1 [facility] RBC Auto (Bld) [#/Vol]Ordere d By: Yordan Newman on 05-19-2025 RBC (Bld) [#/Vol] 4.12 10*6/uL Low 4.2-5.4 [facility] Serum creatinine measurement (mass/volume)Ordered By: Yordan Newman on 05-19-2025 Creatinine [Mass/Vol] 1.00 mg/dL 0.70-1.20 [facility] Serum globulin measurementOr dered By: Yordan Newman on 05-19-2025 Globulin (S) [Mass/Vol] 2.5 g/dL 2.2-4.2 [facility] Serum glucose measurement (m ass/volume)Ordered By: Yordan Newman on 05-19-2025 Glucose [Mass/Vol] 201 mg/dL High 70-99 [facility] Serum or plasma alanine pemberton otransferase (ALT) measurementOrdered By: Yordan Newman on 05-19-2025 ALT [Catalytic activity/Vol] 12 U/L <35 [facility] Serum or plasma albumin tomas urement (mass/volume)Ordered By: Yordan Newman on 05-19-2025 Albumin [Mass/Vol] 3.1 g/dL Low 3.4-4.8 [facility] Serum or plasma alkaline grey sphatase measurementOrdered By: Yordan Newman on 05-19-2025 ALP [Catalytic activity/Vol] 59 U/L 35-104 [facility] Serum or plasma calcium tomas urement (mass/volume)Ordered By: Yordan Newman on 05-19-2025 Calcium [Mass/Vol] 8.5 mg/dL 7.6-11.0 [facility] Serum or plasma urea nitroge n measurement (mass/volume)Ordered By: Yordan Newman on 05-19-2025 Urea nitrogen [Mass/Vol] 9 mg/dL 4-19 [facility] Sodium levelOrdered By: Joaquin Newman on 05-19-2025 Sodium [Moles/Vol] 139 mmol/L 133-145 [facility] Total proteinOrdered By: Jonathan Newman on 05-19-2025 Protein [Mass/Vol] 5.6 g/dL Low 5.9-8.4 [facility] White blood cell (WBC) count Ordered By: Yordan Newman on 10-02-2025 WBC (Bld) [#/Vol] 8.7 10*3/uL 4.4-11.0 [facility] ERCP Biliary/Pancreason 10-0 ERCP Biliary/Pancreas [facility] Imaging Services [address] [place] [address] ERCP Biliary/Pancreas MR#: [id number] Acct: [id number] Name: NORA GRANDE Rep #: [id number] : 1955 F 70 From: Yordan Peguero PCP: Dr. Claudine Mallory DO Status: ADM IN Study: ERCP Biliary/Pancreas Date of Exam: 05/18/25 Exam# [id number] Ordering Dr: Connor Tadeo DO PROCEDURE: ERCP BILIARY/PANCREAS; O.R. FLUORO FOR C-ARM 05/18/2025 REASON FOR EXAM: ERCP TECHNIQUE: Procedure Code: RADERCP; RADORFL_C_ARM Modality: DX Procedure: ERCP BILIARY/PANCREAS; O.R. FLUORO FOR C-ARM Fluoroscopy time: 70.5 seconds. Dose: 13.06 mGy. RAD/ERCP Biliary/Pancreas IMPRESSION: Fluoroscopy was performed for ERCP. 9 spot images were also obtained. Reading Location: [id number] CC: Dr. Claudine Mallory DO; Connor Tadeo DO Presiding Steward: Signed Normal [facility] ERCP Reporton 05-18-2025 ERCP Report [facility] Medical Records Department [address] [place] [address] ERCP Report MR#: [id number] Acct: [id number] Name: NORA GRANDE Rep #: [id number] : 1955 70 From: Connor Tadeo DO [...] hours 26 minutes 13 seconds Findings: The evp managing director film was normal. The esophagus was successfully [...] The strictu (more content not included)... Normal [facility] Electrocardiogram reportOrde red By: Morgan Mckeon on 05-18-2025 EKG study [facility] Cardiovascular Services [address] [place] [address] 12 Lead EKG 05/17/25 0528 MR#: [id number] Acct: [id number] Name: NORA GRANDE Rep #:[id number] : 1955 70 From: Morgan Mckeon MD Attending Dr: Dr. Yordan Newman MD Status: ADM IN Ordering Dr: Jorge Og MD Date: 0 05/16/25 Location: [facility] Sex: F C Admitted: 05/16/25 Test Reason [...] found Confirmed by FRANCIS CABALLERO, MORGAN ([id number]), development editor MORENA ASHBYYA ([id number]) on 05/18/2025 8:58:01 AM Referred By: PUNEET Confirmed By: MORGAN MCKEON MD 05/18/25 0858 Date _ Morgan Mckeon MD CC: Dr. Jorge Og MD; Dr. Yordan Newman MD; Dr. Claudine Mallory DO ~ Signed [facility] Other Phone: MR/OP.PROVATon 05-18-2025 MR/OP.[facility] Medical Records Department [address] [place] [address] Provation Physician Letter MR#: [id number] Acct: [id number] Name: NORA GRANDE Rep #: [id number] : 1955 70 From: Connor Tadeo DO PCP: Dr. Claudine Mallory DO Status:ADM IN 05/18/2025 Claudine Mallory [address] [place] [address] [address] [place] [address] Re : ERCP procedure for [place] [...] DO Cosigner Signature: Date (if indicated) CC: FRENCH BINDERBogdan Mendez; FEDERICO Singh; Dr. Yordan Newman MD; Dr. Claudine Mallory DO; Dr. Jaylen Mike MD; Dr. Zachary Coffey MD; Dr. Danilo Salvador MD; GREGOR Hernandez; Connor Tadeo DO Date Dictated: 05/18/25 1238 Date Transcribed: Presiding Steward: JENNIFER Signed [facility] MR/POSTOP.[facility] 05-18-2025 MR/POSTOP.[facility] Medical Records Department [address] [place] [address] Anesthesia Postop Eval I 05/18/251404 MR#: [id number] Acct: [id number] Name: NORA GRANDE Rep #: [id number] : 1955 70 From: Carlo Arias PCP: Dr. Claudine Mallory DO Status:ADM IN Y Race: C Location: [place] [address] Anesthesia: Postop Eval I Current Vital Signs [...] Carlo Sanchez Signature: Date CC: Signed Normal [facility] MR/KYMLOREZ1xy 05-18-2025 MR/POSTOPAN2 [facility] Medical Records Department [address] [place] [address] Anesthesia Postop Eval II 05/18/25 1513 MR#: [id number] Acct: [id number] Name: NORA GRANDE Rep #: [id number] : 1955 70 From: Jorge Og MD PCP: Dr. Claudine Mallory, DO Status:ADM IN Race: C Location: [facility] RH533-1 Anesthesia Postop Eval I Sum Postop Eval [...] Date Jorge Torresigndmitry Signature: Date CC: Signed [facility] O.R. Fluoro for C-Jose Antonio 10 O.R. Fluoro for C-Arm [facility] Imaging Services [address] [facility] [place] [address] O.R. Fluoro for C-Arm MR#: [id number] Acct: [id number] Name: NORA GRANDE Rep #: [id number] : 1955 F 70 From: Yordan Peguero PCP: Dr. Claudine Mallory DO Status: ADM IN Study: O.R. Fluoro for C-Arm Date of Exam: 05/18/25 Exam# [id number] Ordering Dr: Connor Tadeo DO PROCEDURE: ERCP BILIARY/PANCREAS; O.R. FLUORO FOR C-ARM 05/18/2025 REASON FOR EXAM: ERCP TECHNIQUE: Procedure Code: RADERCP; RADORFL_C_ARM Modality: DX Procedure: ERCP BILIARY/PANCREAS; O.R. FLUORO FOR C-ARM Fluoroscopy time: 70.5 seconds. Dose: 13.06 mGy. RAD/O.R. Fluoro for C-Arm IMPRESSION: Fluoroscopy was performed for ERCP. 9 spot images were also obtained. Reading Location: [id number] CC: Dr. Claudine Mallory DO; Connor Tadeo DO Presiding Steward: Signed [facility] ,Urineon 05-18-2025 Beta HCG ( test) Ql (U) [facility] Comment on above: Order Comment: Femal es 12-55 or menstruation outside age range Result Comment: CANC EL PER MAMADOU CANALES RN Performed By: #### L 985.8727 #### [facility] [address] [place], [place], [address] INTERNAL QC OK? Normal [facility] Comment on above: Order Comment: Femal es 12-55 or menstruation outside age range Result Comment: CANC EL PER MAMADOU CANALES RN Performed By: #### L 400.7600 #### [facility] [address] [place], [place], [address] RECORD KIT LOT# Normal [facility] Comment on above: Order Comment: Femal es 12-55 or menstruation outside age range Result Comment: CANC EL PER MAMADOU CANALES RN Performed By: #### L 400.7600 #### [facility] [address] [place], [place], [address] Special Stain Group IIon Special Stain Group II ----- ---- Patient Age/Sex Location Account Attending Physician ---- NORA GRANDE 70/F [place] [id number] Dr. Yordan Newman MD ---- Specimen: [id number] Received: 05/19/25 Status: REI Wallace Num: [id number] Spec Type: Fluid Subm Dr: Dr. Yordan [...] cytology and cell block preparation. 05/19/2025 CPT: 36654,57082 Signed (signature on file) Dr. Miriam Brennan MD 05/23/25 1149 ---- Normal [facility] Comment on above: Performed By: #### P SSII ####[facility] [address] [place], [place], [id number] Urine teston 05-18 HCG ( test) Ql (U) [facility] Absolute lymphocyte countOrd ered By: Zachary Coffey on 05-17-2025 Lymphocytes Auto (Unsp spec) [#/Vol] 2.82 10*3/uL 0.83-4.51 [facility] Absolute neutrophil countOrd ered By: Zachary Coffey on 05-17-2025 Neutrophils (Bld) [#/Vol] 6.4 10*3/uL 2.0-7.7 [facility] Anion gap in Serum or Plasma Ordered By: Zachary Coffey on 05-17-2025 Anion gap [Moles/Vol] 13 mmol/L 5-15 [facility] Automated lymphocyte count a s percentage of total leukocytesOrdered By: Zachary Coffey on 05-17-2025 Lymphocytes/100 WBC Auto (Unsp spec) 25.6 % - [facility] BUN/creatinine ratioOrdered By: Zachary Coffey on 05-17-2025 Urea nitrogen/Creatinine [Mass ratio] 12.8 mg/mg 10- [facility] Basophil percentageOrdered B y: Zachary Coffey on 05-17-2025 Basophils/100 WBC (Bld) 0.8 % 0-1 [facility] Bilirubin, totalOrdered By: Zachary Coffey on 05-17-2025 Bilirubin [Mass/Vol] 0.83 mg/dL 0.00-1.30 [facility] CBC W/Diff, Automatedon 04-20 Absolute Lymph 2.82 X10 3/uL Normal 0.83-4.51 [facility] Comment on above: Performed By: #### L 500.4050, L100.0100 ####[facility] [address] [place], [address] Absolute Neut 6.4 X10 3/uL Normal 2.0-7.7 [facility] Comment on above: Performed By: #### L 500.4050, L100.0100 ####[facility] [address] [place], [address] Basophils/100 WBC (Bld) 0.8 % Normal 0-1 [facility] Comment on above: Performed By: #### L 500.4050, L100.0100 ####[facility] [address] [place], [address] Eosinophils/100 WBC (Bld) 1.5 % Normal 0-5 [facility] Comment on above: Performed By: #### L 500.4050, L100.0100 ####[facility] [address] [place], [address] Erythrocyte distribution width (RBC) [Ratio] 13.7 % Normal 11.6-14.6 [facility] Comment on above: Performed By: #### L 500.4050, L100.0100 ####[facility] [address] [place], [address] Hematocrit (Bld) [Volume fraction] 39.3 % Normal 37-47 [facility] Comment on above: Performed By: #### L 500.4050, L100.0100 ####[facility] [address] [place], [address] Hemoglobin (Bld) [Mass/Vol] 13.4 g/dL Normal 12.0-15.0 [facility] Comment on above: Performed By: #### L 500.4050, L100.0100 ####[facility] [address] [place], [address] IG% 0.600 Normal 0.0-0.9 [facility] Comment on above: Result Comment: IG% - Immature Granulocytes (promyelocytes, myelocytes and metamyelocytes) > 1% indicates that a LEFT SHIFT is Present. Performed By: #### L 500.4050, L100.0100 ####[facility] [address] [place], [address] Lymphocytes/100 WBC (Bld) 25.6 % Normal 19-41 [facility] Comment on above: Performed By: #### L 500.4050, L100.0100 ####[facility] [address] [place], [address] MCH (RBC) [Entitic mass] 29.3 pg Normal 27.0-32.0 [facility] Comment on above: Performed By: #### L 500.4050, L100.0100 ####[facility] [address] [place], [address] MCHC (RBC) [Mass/Vol] 34.1 g/dL Normal 32-36 [facility] Comment on above: Performed By: #### L 500.4050, L100.0100 ####[facility] [address] [place], [address] MCV (RBC) [Entitic vol] 86.0 fL Normal 81-99 [facility] Comment on above: Performed By: #### L 500.4050, L100.0100 ####[facility] [address] [place], [address] Monocytes/100 WBC (Bld) 13.6 % High 0-10 [facility] Comment on above: Performed By: #### L 500.4050, L100.0100 ####[facility] [address] [place], [address] Neutrophils/100 WBC (Bld) 57.9 % Normal 47-70 [facility] Comment on above: Performed By: #### L 500.4050, L100.0100 ####[facility] [address] [place], [address] Nucleated RBC (Bld) [#/Vol] 0 10*3/uL Normal 0-5 [facility] Comment on above: Performed By: #### L 500.4050, L100.0100 ####[facility] [address] [place], [address] Platelet mean volume (Bld) [Entitic vol] 10.3 fL Normal 6.2-12.0 [facility] Comment on above: Performed By: #### L 500.4050, L100.0100 ####[facility] [address] [place], [address] Platelets (Bld) [#/Vol] 279 10*3/uL Normal 150-450 [facility] Comment on above: Performed By: #### L 500.4050, L100.0100 ####[facility] [address] [place], [address] RBC (Bld) [#/Vol] 4.57 10*6/uL Normal 4.2-5.4 [facility] Comment on above: Performed By: #### L 500.4050, L100.0100 ####[facility] [address] [place], [address] RDW SD 42.9 fl Normal 35.1-43.9 [facility] Comment on above: Performed By: #### L 500.4050, L100.0100 ####[facility] [address] [place], [address] WBC (Bld) [#/Vol] 11.0 10*3/uL Normal 4.4-11.0 [facility] Comment on above: Performed By: #### L 500.4050, L100.0100 ####[facility] [address] [place], [address] Carbon dioxide, total [Moles /volume] in Central venous bloodOrdered By: Zachary Coffey on 05-17-2025 CO2 [Moles/Vol] 21.0 mmol/L 21.0-32.0 [facility] Chloride assayOrdered By: Gregor Coffey on 05-17-2025 Chloride [Moles/Vol] 100 mmol/L 98-108 [facility] Comprehensive Metabolic Prof ilon 05-17-2025 Albumin [Mass/Vol] 3.4 g/dL Normal 3.4-4.8 [facility] Comment on above: Performed By: #### L 500.4050, L100.0100 ####[facility] [address] [place], [address] Albumin/Globulin [Mass ratio] 1.2 {ratio} Normal 0.9-2.4 [facility] Comment on above: Performed By: #### L 500.4050, L100.0100 ####[facility] [address] [place], [address] ALK PHOS 82 U/L Normal 35-104 [facility] Comment on above: Performed By: #### L 500.4050, L100.0100 ####[facility] [address] [place], [address] ALT [Catalytic activity/Vol] 11 U/L Normal <=34 [facility] Comment on above: Performed By: #### L 500.4050, L100.0100 ####[facility] [address] [place], [address] AST [Catalytic activity/Vol] 16 U/L Normal <=31 [facility] Comment on above: Performed By: #### L 500.4050, L100.0100 ####[facility] [address] [place], [address] Bilirubin [Mass/Vol] 0.83 mg/dL Normal 0.00-1.30 [facility] Comment on above: Performed By: #### L 500.4050, L100.0100 ####[facility] [address] [place], [address] BUN/CRE 12.8 RATIO Normal 10-20 [facility] Comment on above: Performed By: #### L 500.4050, L100.0100 ####[facility] [address] [place], [address] Calcium [Mass/Vol] 8.4 mg/dL Normal 7.6-11.0 [facility] Comment on above: Performed By: #### L 500.4050, L100.0100 ####[facility] [address] [place], [address] Chloride [Moles/Vol] 100 mmol/L Normal 98-108 [facility] Comment on above: Performed By: #### L 500.4050, L100.0100 ####[facility] [address] [place], [address] CO2 [Moles/Vol] 21.0 mmol/L Normal 21.0-32.0 [facility] Comment on above: Performed By: #### L 500.4050, L100.0100 ####[facility] [address] [place], [address] Creatinine [Mass/Vol] 1.03 mg/dL Normal 0.70-1.20 [facility] Comment on above: Performed By: #### L 500.4050, L100.0100 ####[facility] [address] [place], [address] ECRCL 44.72 ml/min Low 50-250 [facility] Comment on above: Performed By: #### L 500.4050, L100.0100 ####[facility] [address] [place], [address] GAP 13 Normal 5-15 [facility] Comment on above: Performed By: #### L 500.4050, L100.0100 ####[facility] [address] [place], [address] GFR/1.73 sq M.predicted among non-blacks MDRD (S/P/Bld) [Vol rate/Area] 58 mL/min/{1.73_m2} Low >60 [facility] Comment on above: Result Comment: mL/m in/1.73m2 CKD-EPI Creatinine Equation (2021) Performed By: #### L 500.4050, L100.0100 ####[facility] [address] [place], [address] Globulin (S) [Mass/Vol] 2.8 g/dL Normal 2.2-4.2 [facility] Comment on above: Performed By: #### L 500.4050, L100.0100 ####[facility] [address] [place], [address] Glucose [Mass/Vol] 86 mg/dL Normal 70-99 [facility] Comment on above: Performed By: #### L 500.4050,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 panelon 01-20-2021 Anion gap [Moles/Vol] 6 mmol/L Low 9-18 [facility] Comment on above: Order Comment: Speci men Type: BLOOD SPECIMEN Performed By: #### 2 4321-2 ####[facility] [id number] [place] [address] Calcium [Mass/Vol] 8.9 mg/dL Normal 8.5-10.2 [facility] Comment on above: Order Comment: Speci men Type: BLOOD SPECIMEN Performed By: #### 2 4321-2 ####[facility]ORY[facility] [id number] [place] [address] Chloride [Moles/Vol] 99 mmol/L Normal 97-105 [facility] Comment on above: Order Comment: Speci men Type: BLOOD SPECIMEN Performed By: #### 2 4321-2 ####[facility] [id number] [place] [address] CO2 [Moles/Vol] 31 mmol/L High 22-30 [facility] Comment on above: Order Comment: Speci men Type: BLOOD SPECIMEN Performed By: #### 2 4321-2 ####[facility]ORY[facility] [id number] [place] [address] Creatinine [Mass/Vol] 0.63 mg/dL Normal 0.58-0.96 [facility] Comment on above: Order Comment: Speci men Type: BLOOD SPECIMEN Performed By: #### 2 4321-2 ####[facility] [id number] [place] [address] GFR/1.73 sq M.predicted MDRD (S/P/Bld) [Vol rate/Area] mL/min/{1.73_m2} Normal [facility] Comment on above: Order Comment: [...] actual GFR. Performed By: #### 2 4321-2 ####[facility] [id number] [place] [address] Glucose [Mass/Vol] 168 mg/dL High 74-99 [facility] Comment on above: Order Comment: Speci men Type: BLOOD SPECIMEN Result Comment: The [place] Diabetes Association (ADA) provides guidance for cutoff [...] Standards of Medical Care in Diabetes 2016, [place] [employer]. Diabetes Care. 2016.39(Suppl 1). Performed By: #### 2 4321-2 ####[facility]ORY[facility] [id number] [place] [address] Potassium [Moles/Vol] 3.7 mmol/L Normal 3.7-5.1 [facility] Comment on above: Order Comment: Speci men Type: BLOOD SPECIMEN Performed By: #### 2 4321-2 ####[facility]ORY[facility] [id number] [place] [address] Sodium [Moles/Vol] 136 mmol/L Normal 136-144 [facility] Comment on above: Order Comment: Speci men Type: BLOOD SPECIMEN Performed By: #### 2 4321-2 ####[facility]ORY[facility] [id number] [place] [address] Urea nitrogen [Mass/Vol] 13 mg/dL Normal 7-21 [facility] Comment on above: Order Comment: Speci men Type: BLOOD SPECIMEN Performed By: #### 2 4321-2 ####[facility]ORY[facility] [id number] [place] [address] CASE MANAGEMon 01-20-2021 CASE MANAGEM Normal [facility] CASE MANAGEM Normal [facility] CBC panel Auto (Bld)on 01-20 Erythrocyte distribution width (RBC) [Ratio] 16.4 % High 11.5-15.0 [facility] Comment on above: Order Comment: Speci men Type: BLOOD SPECIMEN Performed By: #### 5 8410-2 ####[facility]ORYCL[facility] [id number] [place] [address] Hematocrit (Bld) [Volume fraction] 23.7 % Low 36.0-46.0 [facility] Comment on above: Order Comment: Speci men Type: BLOOD SPECIMEN Performed By: #### 5 8410-2 ####[facility]ORYCLIA [id number] [place] [address] Hemoglobin (Bld) [Mass/Vol] 7.4 g/dL Low 11.5-15.5 [facility] Comment on above: Order Comment: Speci men Type: BLOOD SPECIMEN Performed By: #### 5 8410-2 ####[facility]ORYCLIA [id number] [place] [address] MCH (RBC) [Entitic mass] 29.1 pg Normal 26.0-34.0 [facility] Comment on above: Order Comment: Speci men Type: BLOOD SPECIMEN Performed By: #### 5 8410-2 ####[facility]ORY[facility] [id number] [place] [address] MCHC (RBC) [Mass/Vol] 31.2 g/dL Normal 30.5-36.0 [facility] Comment on above: Order Comment: Speci men Type: BLOOD SPECIMEN Performed By: #### 5 8410-2 ####[facility]ORYCLIA [id number] [place] [address] MCV (RBC) [Entitic vol] 93.3 fL Normal 80.0-100.0 [facility] Comment on above: Order Comment: Speci men Type: BLOOD SPECIMEN Performed By: #### 5 8410-2 ####[facility]ORYCLIA [id number] [place] [address] Nucleated RBC (Bld) [#/Vol] 0.02 10*3/uL High <0.01 [facility] Comment on above: Order Comment: Speci men Type: BLOOD SPECIMEN Performed By: #### 5 8410-2 ####[facility]ORYCLIA [id number] [place] [address] Platelet mean volume (Bld) [Entitic vol] 10.3 fL Normal 9.0-12.7 [facility] Comment on above: Order Comment: Speci men Type: BLOOD SPECIMEN Performed By: #### 5 8410-2 ####[facility]ORYCLIA [id number] [place] [address] Platelets (Bld) [#/Vol] 318 10*3/uL Normal 150-400 [facility] Comment on above: Order Comment: Speci men Type: BLOOD SPECIMEN Performed By: #### 5 8410-2 ####[facility]ORYCLIA [id number] [place] [address] RBC (Bld) [#/Vol] 2.54 10*6/uL Low 3.90-5.20 [facility] Comment on above: Order Comment: Speci men Type: BLOOD SPECIMEN Performed By: #### 5 8410-2 ####[facility]ORYCLIA [id number] [place] [address] WBC (Bld) [#/Vol] 15.87 10*3/uL High 3.70-11.00 [facility] Comment on above: Order Comment: Speci men Type: BLOOD SPECIMEN Performed By: #### 5 8410-2 ####[facility]ORYCLIA [id number] [place] [address] CNDSon 01-20-2021 CNDS Normal [facility] Basic metabolic 2000 panelon 01-19-2021 Anion gap [Moles/Vol] 7 mmol/L Low 9-18 [facility] Comment on above: Order Comment: Speci men Type: BLOOD SPECIMEN Performed By: #### 2 4321-2 ####[facility]ORYCLIA [id number] [place] [address] Calcium [Mass/Vol] 8.7 mg/dL Normal 8.5-10.2 [facility] Comment on above: Order Comment: Speci men Type: BLOOD SPECIMEN Performed By: #### 2 4321-2 ####[facility]ORYCLIA [id number] [place] [address] Chloride [Moles/Vol] 99 mmol/L Normal 97-105 [facility] Comment on above: Order Comment: Speci men Type: BLOOD SPECIMEN Performed By: #### 2 4321-2 ####[facility]ORYCLIA [id number] [place] [address] CO2 [Moles/Vol] 29 mmol/L Normal 22-30 [facility] Comment on above: Order Comment: Speci men Type: BLOOD SPECIMEN Performed By: #### 2 4321-2 ####[facility]ATORYCLIA [id number] [place] [address] Creatinine [Mass/Vol] 0.64 mg/dL Normal 0.58-0.96 [facility] Comment on above: Order Comment: Speci men Type: BLOOD SPECIMEN Performed By: #### 2 4321-2 ####[facility]ORYCLIA [id number] [place] [address] GFR/1.73 sq M.predicted MDRD (S/P/Bld) [Vol rate/Area] mL/min/{1.73_m2} Normal [facility] Comment on above: Order Comment: [...] actual GFR. Performed By: #### 2 4321-2 ####[facility]ATORYCLIA [id number] [place] [address] Glucose [Mass/Vol] 145 mg/dL High 74-99 [facility] Comment on above: Order Comment: Speci men Type: BLOOD SPECIMEN Result Comment: The [place] Diabetes Association (ADA) provides guidance for cutoff [...] Standards of Medical Care in Diabetes 2016, [place] [employer]. Diabetes Care. 2016.39(Suppl 1). Performed By: #### 2 4321-2 ####[facility]ATORYCLIA [id number] [place] [address] Potassium [Moles/Vol] 3.9 mmol/L Normal 3.7-5.1 [facility] Comment on above: Order Comment: Speci men Type: BLOOD SPECIMEN Performed By: #### 2 4321-2 ####[facility]ORYCLIA [id number] [place] [address] Sodium [Moles/Vol] 135 mmol/L Low 136-144 [facility] Comment on above: Order Comment: Speci men Type: BLOOD SPECIMEN Performed By: #### 2 4321-2 ####[facility]ORYCLIA [id number] [place] [address] Urea nitrogen [Mass/Vol] 9 mg/dL Normal 7-21 [facility] Comment on above: Order Comment: Speci men Type: BLOOD SPECIMEN Performed By: #### 2 4321-2 ####[facility]ORYCLIA [id number] [place] [address] CASE MANAGEMon 01-19-2021 CASE MANAGEM Normal [facility] CBC panel Auto (Bld)on 01-19 Erythrocyte distribution width (RBC) [Ratio] 16.8 % High 11.5-15.0 [facility] Comment on above: Order Comment: Speci men Type: BLOOD SPECIMEN Performed By: #### 5 8410-2 ####[facility] LABORATORYCLIA [id number] [place] [address] Hematocrit (Bld) [Volume fraction] 24.9 % Low 36.0-46.0 [facility] Comment on above: Order Comment: Speci men Type: BLOOD SPECIMEN Performed By: #### 5 8410-2 ####[facility] LABORATORYCLIA [id number] [place] [address] Hemoglobin (Bld) [Mass/Vol] 7.8 g/dL Low 11.5-15.5 [facility] Comment on above: Order Comment: Speci men Type: BLOOD SPECIMEN Performed By: #### 5 8410-2 ####[facility] LABORATORYCLIA [id number] [place] [address] MCH (RBC) [Entitic mass] 28.8 pg Normal 26.0-34.0 [facility] Comment on above: Order Comment: Speci men Type: BLOOD SPECIMEN Performed By: #### 5 8410-2 ####[facility] LABORATORYCLIA [id number] [place] [address] MCHC (RBC) [Mass/Vol] 31.3 g/dL Normal 30.5-36.0 [facility] Comment on above: Order Comment: Speci men Type: BLOOD SPECIMEN Performed By: #### 5 8410-2 ####[facility] LABORATORYCLIA [id number] [place] [address] MCV (RBC) [Entitic vol] 91.9 fL Normal 80.0-100.0 [facility] Comment on above: Order Comment: Speci men Type: BLOOD SPECIMEN Performed By: #### 5 8410-2 ####[facility] LABORATORYCLIA [id number] [place] [address] Nucleated RBC (Bld) [#/Vol] 10*3/uL Normal <0.01 [facility] Comment on above: Order Comment: Speci men Type: BLOOD SPECIMEN Performed By: #### 5 8410-2 ####[facility] LABORATORYCLIA [id number] [place] [address] Platelet mean volume (Bld) [Entitic vol] 10.6 fL Normal 9.0-12.7 [facility] Comment on above: Order Comment: Speci men Type: BLOOD SPECIMEN Performed By: #### 5 8410-2 ####[facility] LABORATORYCLIA [id number] [place] [address] Platelets (Bld) [#/Vol] 297 10*3/uL Normal 150-400 [facility] Comment on above: Order Comment: Speci men Type: BLOOD SPECIMEN Performed By: #### 5 8410-2 ####[facility] LABORATORYCLIA [id number] [place] [address] RBC (Bld) [#/Vol] 2.71 10*6/uL Low 3.90-5.20 [facility] Comment on above: Order Comment: Speci men Type: BLOOD SPECIMEN Performed By: #### 5 8410-2 ####[facility] LABORATORYCLIA [id number] [place] [address] WBC (Bld) [#/Vol] 19.47 10*3/uL High 3.70-11.00 [facility] Comment on above: Order Comment: Speci men Type: BLOOD SPECIMEN Performed By: #### 5 8410-2 ####[facility] LABORATORYCLIA [id number] [place] [address] NUTRITIONon 01-19-2021 NUTRITION Normal [facility] THERAPY NTon 01-19-2021 THERAPY NT Normal [facility] THERAPY NT Normal [facility] UA WITH CULTURE IF INDICATED on 01-19-2021 UA WITH CULTURE IF INDICATED Low [facility] Comment on above: Order Comment: Speci men Type: URINE SPECIMEN Performed By: #### U ACII ####[facility] LABORATORYCLIA [id number] [place] [address] Basic metabolic 2000 panelon 01-18-2021 Anion gap [Moles/Vol] 7 mmol/L Low 9-18 [facility] Comment on above: Order Comment: Speci men Type: BLOOD SPECIMEN Performed By: #### 2 4321-2 ####[facility] LABORATORYCLIA [id number] [place] [address] Calcium [Mass/Vol] 8.3 mg/dL Low 8.5-10.2 [facility] Comment on above: Order Comment: Speci men Type: BLOOD SPECIMEN Performed By: #### 2 4321-2 ####[facility] LABORATORYCLIA [id number] [place] [address] Chloride [Moles/Vol] 103 mmol/L Normal 97-105 [facility] Comment on above: Order Comment: Speci men Type: BLOOD SPECIMEN Performed By: #### 2 4321-2 ####[facility] LABORATORYCLIA [id number] [place] [address] CO2 [Moles/Vol] 29 mmol/L Normal 22-30 [facility] Comment on above: Order Comment: Speci men Type: BLOOD SPECIMEN Performed By: #### 2 4321-2 ####[facility] LABORATORYCLIA [id number] [place] [address] Creatinine [Mass/Vol] 0.64 mg/dL Normal 0.58-0.96 [facility] Comment on above: Order Comment: Speci men Type: BLOOD SPECIMEN Performed By: #### 2 4321-2 ####[facility] LABORATORYCLIA [id number] [place] [address] GFR/1.73 sq M.predicted MDRD (S/P/Bld) [Vol rate/Area] mL/min/{1.73_m2} Normal [facility] Comment on above: Order Comment: [...] actual GFR. Performed By: #### 2 4321-2 ####[facility] LABORATORYCLIA [id number] [place] [address] Glucose [Mass/Vol] 132 mg/dL High 74-99 [facility] Comment on above: Order Comment: Speci men Type: BLOOD SPECIMEN Result Comment: The [place] Diabetes Association (ADA) provides guidance for cutoff [...] Standards of Medical Care in Diabetes 2016, [place] [employer]. Diabetes Care. 2016.39(Suppl 1). Performed By: #### 2 4321-2 ####[facility] LABORATORYCLIA [id number] [place] [address] Potassium [Moles/Vol] 4.0 mmol/L Normal 3.7-5.1 [facility] Comment on above: Order Comment: Speci men Type: BLOOD SPECIMEN Performed By: #### 2 4321-2 ####[facility] LABORATORYCLIA [id number] [place] [address] Sodium [Moles/Vol] 139 mmol/L Normal 136-144 [facility] Comment on above: Order Comment: Speci men Type: BLOOD SPECIMEN Performed By: #### 2 4321-2 ####[facility] LABORATORYCLIA [id number] [place] [address] Urea nitrogen [Mass/Vol] 10 mg/dL Normal 7-21 [facility] Comment on above: Order Comment: Speci men Type: BLOOD SPECIMEN Performed By: #### 2 4321-2 ####[facility] LABORATORYCLIA [id number] [place] [address] CBC panel Auto (Bld)on 01-18 Erythrocyte distribution width (RBC) [Ratio] 16.6 % High 11.5-15.0 [facility] Comment on above: Order Comment: Speci men Type: BLOOD SPECIMEN Performed By: #### 5 8410-2 ####[facility] LABORATORYCLIA [id number] [place] [address] Hematocrit (Bld) [Volume fraction] 27.1 % Low 36.0-46.0 [facility] Comment on above: Order Comment: Speci men Type: BLOOD SPECIMEN Performed By: #### 5 8410-2 ####[facility] LABORATORYCLIA [id number] [place] [address] Hemoglobin (Bld) [Mass/Vol] 8.4 g/dL Low 11.5-15.5 [facility] Comment on above: Order Comment: Speci men Type: BLOOD SPECIMEN Performed By: #### 5 8410-2 ####[facility] LABORATORYCLIA [id number] [place] [address] MCH (RBC) [Entitic mass] 29.3 pg Normal 26.0-34.0 [facility] Comment on above: Order Comment: Speci men Type: BLOOD SPECIMEN Performed By: #### 5 8410-2 ####[facility] LABORATORYCLIA [id number] [place] [address] MCHC (RBC) [Mass/Vol] 31.0 g/dL Normal 30.5-36.0 [facility] Comment on above: Order Comment: Speci men Type: BLOOD SPECIMEN Performed By: #### 5 8410-2 ####[facility] LABORATORYCLIA [id number] [place] [address] MCV (RBC) [Entitic vol] 94.4 fL Normal 80.0-100.0 [facility] Comment on above: Order Comment: Speci men Type: BLOOD SPECIMEN Performed By: #### 5 8410-2 ####[facility] LABORATORYCLIA [id number] [place] [address] Nucleated RBC (Bld) [#/Vol] 10*3/uL Normal <0.01 [facility] Comment on above: Order Comment: Speci men Type: BLOOD SPECIMEN Performed By: #### 5 8410-2 ####[facility] LABORATORYCLIA [id number] [place] [address] Platelet mean volume (Bld) [Entitic vol] 10.9 fL Normal 9.0-12.7 [facility] Comment on above: Order Comment: Speci men Type: BLOOD SPECIMEN Performed By: #### 5 8410-2 ####[facility] LABORATORYCLIA [id number] [place] [address] Platelets (Bld) [#/Vol] 368 10*3/uL Normal 150-400 [facility] Comment on above: Order Comment: Speci men Type: BLOOD SPECIMEN Performed By: #### 5 8410-2 ####[facility] LABORATORYCLIA [id number] [place] [address] RBC (Bld) [#/Vol] 2.87 10*6/uL Low 3.90-5.20 [facility] Comment on above: Order Comment: Speci men Type: BLOOD SPECIMEN Performed By: #### 5 8410-2 ####[facility] LABORATORYCLIA [id number] [place] [address] WBC (Bld) [#/Vol] 16.81 10*3/uL High 3.70-11.00 [facility] Comment on above: Order Comment: Speci men Type: BLOOD SPECIMEN Performed By: #### 5 8410-2 ####[facility] LABORATORYCLIA [id number] [place] [address] THERAPY NTon 01-18-2021 THERAPY NT Normal [facility] THERAPY NT Normal [facility] ALLIED HEALTHon 2021 ALLIED HEALTH Normal [facility] ANES POSTPROC EVALon 021 ANES POSTPROC EVAL Normal [facility] ANES PRE-OPon 2021 ANES PRE-OP Normal [facility] ANTIBODY ID PATIENTon 2020 ANTIBODY IDENTIFIED Non-specific Verónica Normal [facility] Comment on above: Order Comment: Speci men Type: BLOOD SPECIMEN Performed By: #### T SCR, %MADI ####[facility] BLOOD BANKCLIA [id number] [place] [address] BRIEF OP NOTon 2021 BRIEF OP NOT Normal [facility] Basic metabolic 2000 panelon 2021 Anion gap [Moles/Vol] 9 mmol/L Normal 9-18 [facility] Comment on above: Order Comment: Speci men Type: BLOOD SPECIMEN Performed By: #### 2 4321-2 ####[facility] LABORATORYCLIA [id number] [place] [address] Calcium [Mass/Vol] 9.2 mg/dL Normal 8.5-10.2 [facility] Comment on above: Order Comment: Speci men Type: BLOOD SPECIMEN Performed By: #### 2 4321-2 ####[facility] LABORATORYCLIA [id number] [place] [address] Chloride [Moles/Vol] 99 mmol/L Normal 97-105 [facility] Comment on above: Order Comment: Speci men Type: BLOOD SPECIMEN Performed By: #### 2 4321-2 ####[facility] LABORATORYCLIA [id number] [place] [address] CO2 [Moles/Vol] 30 mmol/L Normal 22-30 [facility] Comment on above: Order Comment: Speci men Type: BLOOD SPECIMEN Performed By: #### 2 4321-2 ####[facility] LABORATORYCLIA [id number] [place] [address] Creatinine [Mass/Vol] 0.72 mg/dL Normal 0.58-0.96 [facility] Comment on above: Order Comment: Speci men Type: BLOOD SPECIMEN Performed By: #### 2 4321-2 ####[facility] LABORATORYCLIA [id number] [place] [address] GFR/1.73 sq M.predicted MDRD (S/P/Bld) [Vol rate/Area] mL/min/{1.73_m2} Normal [facility] Comment on above: Order Comment: [...] actual GFR. Performed By: #### 2 4321-2 ####[facility] LABORATORYCLIA [id number] [place] [address] Glucose [Mass/Vol] 163 mg/dL High 74-99 [facility] Comment on above: Order Comment: Speci men Type: BLOOD SPECIMEN Result Comment: The [place] Diabetes Association (ADA) provides guidance for cutoff [...] Standards of Medical Care in Diabetes 2016, [place] [employer]. Diabetes Care. 2016.39(Suppl 1). Performed By: #### 2 4321-2 ####[facility] LABORATORYCLIA [id number] [place] [address] Potassium [Moles/Vol] 4.1 mmol/L Normal 3.7-5.1 [facility] Comment on above: Order Comment: Speci men Type: BLOOD SPECIMEN Performed By: #### 2 4321-2 ####[facility] LABORATORYCLIA [id number] [place] [address] Sodium [Moles/Vol] 138 mmol/L Normal 136-144 [facility] Comment on above: Order Comment: Speci men Type: BLOOD SPECIMEN Performed By: #### 2 4321-2 ####[facility] LABORATORYCLIA [id number] [place] [address] Urea nitrogen [Mass/Vol] 18 mg/dL Normal 7-21 [facility] Comment on above: Order Comment: Speci men Type: BLOOD SPECIMEN Performed By: #### 2 4321-2 ####[facility] LABORATORYCLIA [id number] [place] [address] CASE MANAGEMon 2021 CASE MANAGEM Normal [facility] CBC panel Auto (Bld)on 01-17 Erythrocyte distribution width (RBC) [Ratio] 16.3 % High 11.5-15.0 [facility] Comment on above: Order Comment: Speci men Type: BLOOD SPECIMEN Performed By: #### 5 8410-2 ####[facility] LABORATORYCLIA [id number] [place] [address] Hematocrit (Bld) [Volume fraction] 40.2 % Normal 36.0-46.0 [facility] Comment on above: Order Comment: Speci men Type: BLOOD SPECIMEN Performed By: #### 5 8410-2 ####[facility] LABORATORYCLIA [id number] [place] [address] Hemoglobin (Bld) [Mass/Vol] 12.5 g/dL Normal 11.5-15.5 [facility] Comment on above: Order Comment: Speci men Type: BLOOD SPECIMEN Performed By: #### 5 8410-2 ####[facility] LABORATORYCLIA [id number] [place] [address] MCH (RBC) [Entitic mass] 28.7 pg Normal 26.0-34.0 [facility] Comment on above: Order Comment: Speci men Type: BLOOD SPECIMEN Performed By: #### 5 8410-2 ####[facility] LABORATORYCLIA [id number] [place] [address] MCHC (RBC) [Mass/Vol] 31.1 g/dL Normal 30.5-36.0 [facility] Comment on above: Order Comment: Speci men Type: BLOOD SPECIMEN Performed By: #### 5 8410-2 ####[facility] LABORATORYCLIA [id number] [place] [address] MCV (RBC) [Entitic vol] 92.4 fL Normal 80.0-100.0 [facility] Comment on above: Order Comment: Speci men Type: BLOOD SPECIMEN Performed By: #### 5 8410-2 ####[facility] LABORATORYCLIA [id number] [place] [address] Nucleated RBC (Bld) [#/Vol] 10*3/uL Normal <0.01 [facility] Comment on above: Order Comment: Speci men Type: BLOOD SPECIMEN Performed By: #### 5 8410-2 ####[facility] LABORATORYCLIA [id number] [place] [address] Platelet mean volume (Bld) [Entitic vol] 10.4 fL Normal 9.0-12.7 [facility] Comment on above: Order Comment: Speci men Type: BLOOD SPECIMEN Performed By: #### 5 8410-2 ####[facility] LABORATORYCLIA [id number] [place] [address] Platelets (Bld) [#/Vol] 534 10*3/uL High 150-400 [facility] Comment on above: Order Comment: Speci men Type: BLOOD SPECIMEN Performed By: #### 5 8410-2 ####[facility] LABORATORYCLIA [id number] [place] [address] RBC (Bld) [#/Vol] 4.35 10*6/uL Normal 3.90-5.20 [facility] Comment on above: Order Comment: Speci men Type: BLOOD SPECIMEN Performed By: #### 5 8410-2 ####[facility] LABORATORYCLIA [id number] [place] [address] WBC (Bld) [#/Vol] 15.41 10*3/uL High 3.70-11.00 [facility] Comment on above: Order Comment: Speci men Type: BLOOD SPECIMEN Performed By: #### 5 8410-2 ####[facility] LABORATORYCLIA [id number] [place] [address] NURSING PROGon 2021 NURSING PROG Normal [facility] NUTRITIONon 2021 NUTRITION Normal [facility] OPERATIVE NOon 2021 OPERATIVE NO Normal [facility] SARS-CoV-2 RNA Resp Ql LAVELL+p robeon 2021 SARS-CoV-2 (COVID-19) RNA LAVELL+probe Ql (Resp) COVID 19 RESULT: SARS-CoV-2 (Agent of COVID-19) Not Detected by PCR. This test has been authorized by FDA under an Emergency Use Authorization (EUA) Normal [facility] Comment on above: Performed By: #### 9 4500-6 ####[facility] LABORATORYCLIA [id number] [place] [address] SURGICAL PATHOLOGYon 021 CASE REPORT Normal [facility] Comment on above: Order Comment: Speci men Type: SPECIMEN FROM BONE Result Comment: Surg ical Pathology Report Case: [id number] Provider: Ranjan Herrera MD Collected: 2021 02:53 PMOrdering Location[facility] [place] [facility] Received: 01/18/2021 07:00 AMPathologist: NURA Bobbypecimen: FEMORAL HEAD LEFT Performed By: #### S ####[facility] LABORATORYCLIA [id number] [place] [address] FINAL DIAGNOSIS Normal [facility] Comment on above: Order Comment: Speci men Type: SPECIMEN FROM BONE Result Comment: Femo ral head, left hip, hip arthroplasty - Fragmentation of the bony trabeculae with hemorrhage into the medullary cavity and soft tissue, consistent with recent fracture.- No malignancy is seen. Performed By: #### S ####[facility] LABORATORYCLIA [id number] [place] [address] FINAL PERFORMING LAB Normal [facility] Comment on above: Order Comment: Speci men Type: SPECIMEN FROM BONE Result Comment: Diag nostic interpretation performed at [facility], [address] [place] [address] CLIA# [id number] Director: Ozzy Grant M.D. Performed By: #### S ####[facility] LABORATORYCLIA [id number] [place] [id number] GROSS DESCRIPTION Normal [facility] Comment on above: Order Comment: [...] not identified. Necrotic bone is not seen. [employer] sections are submitted in formalin as follows: A1 soft tissue, A2 bone after a period of decalcification.Gross examination performed at [facility], [address] [place] [address] CLIA# [id number] January 18, 2021 10:29 AM Performed By: #### S ####[facility] LABORATORYCLIA [id number] [place] [id number] THERAPY NTon 2021 THERAPY NT Normal [facility] TYPE AND SCREENon 2021 ABO A Normal [facility] Comment on above: Order Comment: Speci men Type: BLOOD SPECIMEN Performed By: #### T SCR, %MADI ####[facility] BLOOD BANKCLIA [id number] [place] [address] HISTORICAL AB SCR STATUS Negative [facility] Comment on above: Order Comment: Speci men Type: BLOOD SPECIMEN Performed By: #### T SCR, %MADI ####[facility] BLOOD BANKCLIA [id number] [place] [id number] Rh Nom (Bld) Positive [facility] Comment on above: Order Comment: Speci men Type: BLOOD SPECIMEN Performed By: #### T SCR, %MADI ####[facility] BLOOD BANKCLIA [id number] [place] [address] TYPE AND SCREEN EXPIRATION 01/20/2021 23:59 Normal [facility] Comment on above: Order Comment: Speci men Type: BLOOD SPECIMEN Performed By: #### T SCR, %MADI ####[facility] BLOOD BANKCLIA [id number] [place] [address] XR HIP 1V LTon 2021 XR HIP 1V LT Normal [facility] XR PELVIS 1V APon 2021 XR PELVIS 1V AP Normal [facility] Basic metabolic 2000 panelon 01-16-2021 Anion gap [Moles/Vol] 11 mmol/L Normal 9-18 [facility] Comment on above: Order Comment: Speci men Type: BLOOD SPECIMEN Performed By: #### 2 4321-2 ####[facility] LABORATORYCLIA [id number] [place] [address] Calcium [Mass/Vol] 9.5 mg/dL Normal 8.5-10.2 [facility] Comment on above: Order Comment: Speci men Type: BLOOD SPECIMEN Performed By: #### 2 4321-2 ####[facility] LABORATORYCLIA [id number] [place] [address] Chloride [Moles/Vol] 98 mmol/L Normal 97-105 [facility] Comment on above: Order Comment: Speci men Type: BLOOD SPECIMEN Performed By: #### 2 4321-2 ####[facility] LABORATORYCLIA [id number] [place] [address] CO2 [Moles/Vol] 26 mmol/L Normal 22-30 [facility] Comment on above: Order Comment: Speci men Type: BLOOD SPECIMEN Performed By: #### 2 4321-2 ####[facility] LABORATORYCLIA [id number] [place] [address] Creatinine [Mass/Vol] 0.76 mg/dL Normal 0.58-0.96 [facility] Comment on above: Order Comment: Speci men Type: BLOOD SPECIMEN Performed By: #### 2 4321-2 ####[facility] LABORATORYCLIA [id number] [place] [address] GFR/1.73 sq M.predicted MDRD (S/P/Bld) [Vol rate/Area] mL/min/{1.73_m2} Normal [facility] Comment on above: Order Comment: [...] actual GFR. Performed By: #### 2 4321-2 ####[facility] LABORATORYCLIA [id number] [place] [address] Glucose [Mass/Vol] 124 mg/dL High 74-99 [facility] Comment on above: Order Comment: Speci men Type: BLOOD SPECIMEN Result Comment: The [place] Diabetes Association (ADA) provides guidance for cutoff [...] Standards of Medical Care in Diabetes 2016, [place] [employer]. Diabetes Care. 2016.39(Suppl 1). Performed By: #### 2 4321-2 ####[facility] LABORATORYCLIA [id number] [place] [address] Potassium [Moles/Vol] 4.2 mmol/L Normal 3.7-5.1 [facility] Comment on above: Order Comment: [facility] Type: BLOOD SPECIMEN Performed By: #### 2 4321-2 ####[facility] LABORATORYCLIA [id number] [place] [address] Sodium [Moles/Vol] 135 mmol/L Low 136-144 [facility] Comment on above: Order Comment: Speci men Type: BLOOD SPECIMEN Performed By: #### 2 4321-2 ####[facility] LABORATORYCLIA [id number] [place] [address] Urea nitrogen [Mass/Vol] 17 mg/dL Normal 7-21 [facility] Comment on above: Order Comment: Speci men Type: BLOOD SPECIMEN Performed By: #### 2 4321-2 ####[facility] LABORATORYCLIA [id number] [place] [address] CASE MANAGEMon 01-16-2021 CASE MANAGEM Normal [facility] CBC panel Auto (Bld)on 01-16 Erythrocyte distribution width (RBC) [Ratio] 16.4 % High 11.5-15.0 [facility] Comment on above: Order Comment: Speci men Type: BLOOD SPECIMEN Performed By: #### 5 8410-2 ####[facility] LABORATORYCLIA [id number] [place] [address] Hematocrit (Bld) [Volume fraction] 40.9 % Normal 36.0-46.0 [facility] Comment on above: Order Comment: Speci men Type: BLOOD SPECIMEN Performed By: #### 5 8410-2 ####[facility] LABORATORYCLIA [id number] [place] [address] Hemoglobin (Bld) [Mass/Vol] 12.9 g/dL Normal 11.5-15.5 [facility] Comment on above: Order Comment: Speci men Type: BLOOD SPECIMEN Performed By: #### 5 8410-2 ####[facility] LABORATORYCLIA [id number] [place] [address] MCH (RBC) [Entitic mass] 28.5 pg Normal 26.0-34.0 [facility] Comment on above: Order Comment: Speci men Type: BLOOD SPECIMEN Performed By: #### 5 8410-2 ####[facility] LABORATORYCLIA [id number] [place] [address] MCHC (RBC) [Mass/Vol] 31.5 g/dL Normal 30.5-36.0 [facility] Comment on above: Order Comment: Speci men Type: BLOOD SPECIMEN Performed By: #### 5 8410-2 ####[facility] LABORATORYCLIA [id number] [place] [address] MCV (RBC) [Entitic vol] 90.3 fL Normal 80.0-100.0 [facility] Comment on above: Order Comment: Speci men Type: BLOOD SPECIMEN Performed By: #### 5 8410-2 ####[facility] LABORATORYCLIA [id number] [place] [address] Nucleated RBC (Bld) [#/Vol] 10*3/uL Normal <0.01 [facility] Comment on above: Order Comment: Speci men Type: BLOOD SPECIMEN Performed By: #### 5 8410-2 ####[facility] LABORATORYCLIA [id number] [place] [address] Platelet mean volume (Bld) [Entitic vol] 10.7 fL Normal 9.0-12.7 [facility] Comment on above: Order Comment: Speci men Type: BLOOD SPECIMEN Performed By: #### 5 8410-2 ####[facility] LABORATORYCLIA [id number] [place] [address] Platelets (Bld) [#/Vol] 651 10*3/uL High 150-400 [facility] Comment on above: Order Comment: Speci men Type: BLOOD SPECIMEN Performed By: #### 5 8410-2 ####[facility] LABORATORYCLIA [id number] [place] [address] RBC (Bld) [#/Vol] 4.53 10*6/uL Normal 3.90-5.20 [facility] Comment on above: Order Comment: Speci men Type: BLOOD SPECIMEN Performed By: #### 5 8410-2 ####[facility] LABORATORYCLIA [id number] [place] [address] WBC (Bld) [#/Vol] 16.49 10*3/uL High 3.70-11.00 [facility] Comment on above: Order Comment: Speci men Type: BLOOD SPECIMEN Performed By: #### 5 8410-2 ####[facility] LABORATORYCLIA [id number] [place] [address] Basic metabolic 2000 panelon 01-15-2021 Anion gap [Moles/Vol] 8 mmol/L Low 9-18 [facility] Comment on above: Order Comment: Speci men Type: BLOOD SPECIMEN Performed By: #### 2 4321-2 ####[facility]ORYCLIA [id number] [place] [address] Calcium [Mass/Vol] 9.3 mg/dL Normal 8.5-10.2 [facility] Comment on above: Order Comment: Speci men Type: BLOOD SPECIMEN Performed By: #### 2 4321-2 ####[facility]ORYCLIA [id number] [place] [address] Chloride [Moles/Vol] 99 mmol/L Normal 97-105 [facility] Comment on above: Order Comment: Speci men Type: BLOOD SPECIMEN Performed By: #### 2 4321-2 ####[facility]ORYCLIA [id number] [place] [address] CO2 [Moles/Vol] 27 mmol/L Normal 22-30 [facility] Comment on above: Order Comment: Speci men Type: BLOOD SPECIMEN Performed By: #### 2 4321-2 ####[facility]ATORYCLIA [id number] [place] [address] Creatinine [Mass/Vol] 0.78 mg/dL Normal 0.58-0.96 [facility] Comment on above: Order Comment: Speci men Type: BLOOD SPECIMEN Performed By: #### 2 4321-2 ####[facility]ORATORYCLIA [id number] [place] [address] GFR/1.73 sq M.predicted MDRD (S/P/Bld) [Vol rate/Area] mL/min/{1.73_m2} Normal [facility] Comment on above: [facility]: [facility] Type: B[facility]OD SPEC[facility] Result Comment: >60e GFR [...] actual GFR. Performed By: #### 2 4321-2 ####[facility] LABORATORYCLIA [id number] [place] [address] Glucose [Mass/Vol] 148 mg/dL High 74-99 [facility] Comment on above: Order Comment: [facility] Type: BLOOD SPECIMEN Result Comment: The [place] Diabetes Association (ADA) provides guidance for cutoff [...] Standards of Medical Care in Diabetes 2016, [place] [employer]. Diabetes Care. 2016.39(Suppl 1). Performed By: #### 2 4321-2 ####[facility] LABORATORYCLIA [id number] [place] [address] Potassium [Moles/Vol] 4.0 mmol/L Normal 3.7-5.1 [facility] Comment on above: Order Comment: [facility] Type: BLOOD SPECIMEN Performed By: #### 2 4321-2 ####[facility]ORATORYCLIA [id number] [place] [address] Sodium [Moles/Vol] 134 mmol/L Low 136-144 [facility] Comment on above: Order Comment: Speci men Type: BLOOD SPECIMEN Performed By: #### 2 4321-2 ####[facility]ORATORYCLIA [id number] [place] [address] Urea nitrogen [Mass/Vol] 20 mg/dL Normal 7-21 [facility] Comment on above: Order Comment: Speci men Type: BLOOD SPECIMEN Performed By: #### 2 4321-2 ####[facility]ORATORYCLIA [id number] [place] [address] CBC panel Auto (Bld)on 01-15 Erythrocyte distribution width (RBC) [Ratio] 16.4 % High 11.5-15.0 [facility] Comment on above: Order Comment: Speci men Type: BLOOD SPECIMEN Performed By: #### 5 8410-2 ####[facility]ORATORYCLIA [id number] [place] [address] Hematocrit (Bld) [Volume fraction] 40.7 % Normal 36.0-46.0 [facility] Comment on above: Order Comment: Speci men Type: BLOOD SPECIMEN Performed By: #### 5 8410-2 ####[facility]ATORYCLIA [id number] [place] [address] Hemoglobin (Bld) [Mass/Vol] 12.9 g/dL Normal 11.5-15.5 [facility] Comment on above: Order Comment: Speci men Type: BLOOD SPECIMEN Performed By: #### 5 8410-2 ####[facility] LABORATORYCLIA [id number] [place] [address] MCH (RBC) [Entitic mass] 28.6 pg Normal 26.0-34.0 [facility] Comment on above: Order Comment: Speci men Type: BLOOD SPECIMEN Performed By: #### 5 8410-2 ####[facility]ATORYCLIA [id number] [place] [address] MCHC (RBC) [Mass/Vol] 31.7 g/dL Normal 30.5-36.0 [facility] Comment on above: Order Comment: Speci men Type: BLOOD SPECIMEN Performed By: #### 5 8410-2 ####[facility]ATORYCLIA [id number] [place] [address] MCV (RBC) [Entitic vol] 90.2 fL Normal 80.0-100.0 [facility] Comment on above: Order Comment: Speci men Type: BLOOD SPECIMEN Performed By: #### 5 8410-2 ####[facility]ATORYCLIA [id number] [place] [address] Nucleated RBC (Bld) [#/Vol] 10*3/uL Normal <0.01 [facility] Comment on above: Order Comment: Speci men Type: BLOOD SPECIMEN Performed By: #### 5 8410-2 ####[facility]ATORYCLIA [id number] [place] [address] Platelet mean volume (Bld) [Entitic vol] 10.4 fL Normal 9.0-12.7 [facility] Comment on above: Order Comment: Speci men Type: BLOOD SPECIMEN Performed By: #### 5 8410-2 ####[facility]ATORYCLIA [id number] [place] [address] Platelets (Bld) [#/Vol] 810 10*3/uL High 150-400 [facility] Comment on above: Order Comment: Speci men Type: BLOOD SPECIMEN Performed By: #### 5 8410-2 ####[facility]ATORYCLIA [id number] [place] [address] RBC (Bld) [#/Vol] 4.51 10*6/uL Normal 3.90-5.20 [facility] Comment on above: Order Comment: Speci men Type: BLOOD SPECIMEN Performed By: #### 5 8410-2 ####[facility]ATORYCLIA [id number] [place] [address] WBC (Bld) [#/Vol] 15.54 10*3/uL High 3.70-11.00 [facility] Comment on above: Order Comment: Speci men Type: BLOOD SPECIMEN Performed By: #### 5 8410-2 ####[facility] LABORATORYCLIA [id number] [place] [address] CT LUMBAR SPINE W RECON DATA -NBon 01-15-2021 CT LUMBAR SPINE W RECON DATA -NB Normal [facility] THERAPY NTon 01-15-2021 THERAPY NT Normal [facility] ALLIED HEALTHon 01-14-2021 ALLIED HEALTH Normal [facility] ALLIED HEALTH Normal [facility] ANES POSTPROC EVALon 021 ANES POSTPROC EVAL Normal [facility] ANES PRE-OPon 01-14-2021 ANES PRE-OP Normal [facility] BRIEF OP NOTon 01-14-2021 BRIEF OP NOT Normal [facility] Basic metabolic 2000 panelon 01-14-2021 Anion gap [Moles/Vol] 9 mmol/L Normal 9-18 [facility] Comment on above: Order Comment: Speci men Type: BLOOD SPECIMEN Performed By: #### 2 4321-2 ####[facility]ATORYCLIA [id number] [place] [address] Calcium [Mass/Vol] 9.5 mg/dL Normal 8.5-10.2 [facility] Comment on above: Order Comment: Speci men Type: BLOOD SPECIMEN Performed By: #### 2 4321-2 ####[facility]ORYCLIA [id number] [place] [address] Chloride [Moles/Vol] 99 mmol/L Normal 97-105 [facility] Comment on above: Order Comment: Speci men Type: BLOOD SPECIMEN Performed By: #### 2 4321-2 ####[facility]ORYCLIA [id number] [place] [address] CO2 [Moles/Vol] 26 mmol/L Normal 22-30 [facility] Comment on above: Order Comment: Speci men Type: BLOOD SPECIMEN Performed By: #### 2 4321-2 ####[facility]ORYCLIA [id number] [place] [address] Creatinine [Mass/Vol] 0.77 mg/dL Normal 0.58-0.96 [facility] Comment on above: Order Comment: Speci men Type: BLOOD SPECIMEN Performed By: #### 2 4321-2 ####[facility]ORATORYCLIA [id number] [place] [address] GFR/1.73 sq M.predicted MDRD (S/P/Bld) [Vol rate/Area] mL/min/{1.73_m2} Normal [facility] Comment on above: Order Comment: Speci [facility] Type: BLOOD SPECIMEN Result Comment: >60e [...] actual GFR. Performed By: #### 2 4321-2 ####[facility] LABORATORYCLIA [id number] [place] [address] Glucose [Mass/Vol] 170 mg/dL High 74-99 [facility] Comment on above: Order Comment: Speci [facility] Type: BLOOD SPECIMEN Result Comment: The [place] Diabetes Association (ADA) provides guidance for cutoff [...] Standards of Medical Care in Diabetes 2016, [place] [employer]. Diabetes Care. 2016.39(Suppl 1). Performed By: #### 2 4321-2 ####[facility]ORATORYCLIA [id number] [place] [address] Potassium [Moles/Vol] 4.4 mmol/L Normal 3.7-5.1 [facility] Comment on above: Order Comment: Speci men Type: BLOOD SPECIMEN Performed By: #### 2 4321-2 ####[facility] LABORATORYCLIA [id number] [place] [address] Sodium [Moles/Vol] 134 mmol/L Low 136-144 [facility] Comment on above: Order Comment: Speci men Type: BLOOD SPECIMEN Performed By: #### 2 4321-2 ####[facility]ORATORYCLIA [id number] [place] [address] Urea nitrogen [Mass/Vol] 21 mg/dL Normal 7-21 [facility] Comment on above: Order Comment: Speci men Type: BLOOD SPECIMEN Performed By: #### 2 4321-2 ####[facility]ORATORYCLIA [id number] [place] [address] CBC W Auto Differential pane l (Bld)on 01-14-2021 Basophils (Bld) [#/Vol] 0.13 10*3/uL High <0.11 [facility] Comment on above: Order Comment: Speci men Type: BLOOD SPECIMEN Result Comment: Diff erential confirmed by visual scan of peripheral blood smear slide Performed By: #### 5 7021-8 ####[facility]ORATORYCLIA [id number] [place] [address] Basophils/100 WBC (Bld) 0.8 % Normal [facility] Comment on above: Order Comment: Speci men Type: BLOOD SPECIMEN Performed By: #### 5 7021-8 ####[facility]ORATORYCLIA [id number] [place] [address] Differential cell count method Nom (Bld) Auto Normal [facility] Comment on above: Order Comment: Speci men Type: BLOOD SPECIMEN Performed By: #### 5 7021-8 ####[facility]ATORYCLIA [id number] [place] [address] Eosinophils (Bld) [#/Vol] 0.22 10*3/uL Normal <0.46 [facility] Comment on above: Order Comment: Speci men Type: BLOOD SPECIMEN Performed By: #### 5 7021-8 ####[facility]ATORYCLIA [id number] [place] [address] Eosinophils/100 WBC (Bld) 1.4 % Normal [facility] Comment on above: Order Comment: Speci men Type: BLOOD SPECIMEN Performed By: #### 5 7021-8 ####[facility]ORYCLIA [id number] [place] [address] Erythrocyte distribution width (RBC) [Ratio] 16.3 % High 11.5-15.0 [facility] Comment on above: Order Comment: Speci men Type: BLOOD SPECIMEN Performed By: #### 5 7021-8 ####[facility]ATORYCLIA [id number] [place] [address] Hematocrit (Bld) [Volume fraction] 40.4 % Normal 36.0-46.0 [facility] Comment on above: Order Comment: Speci men Type: BLOOD SPECIMEN Performed By: #### 5 7021-8 ####[facility]ORYCLIA [id number] [place] [address] Hemoglobin (Bld) [Mass/Vol] 13.0 g/dL Normal 11.5-15.5 [facility] Comment on above: Order Comment: Speci men Type: BLOOD SPECIMEN Performed By: #### 5 7021-8 ####[facility]ATORYCLIA [id number] [place] [address] IMMATURE GRAN % 0.9 % Normal [facility] Comment on above: Order Comment: Speci men Type: BLOOD SPECIMEN Performed By: #### 5 7021-8 ####[facility]ATORYCLIA [id number] [place] [address] IMMATURE GRAN ABS 0.14 k/uL High <0.10 [facility] Comment on above: Order Comment: Speci men Type: BLOOD SPECIMEN Performed By: #### 5 7021-8 ####[facility]ORYCLIA [id number] [place] [address] Lymphocytes (Bld) [#/Vol] 2.59 10*3/uL Normal 1.00-4.00 [facility] Comment on above: Order Comment: Speci men Type: BLOOD SPECIMEN Performed By: #### 5 7021-8 ####[facility] LABORATORYCLIA [id number] [place] [address] Lymphocytes/100 WBC (Bld) 16.4 % Normal [facility] Comment on above: Order Comment: Speci men Type: BLOOD SPECIMEN Performed By: #### 5 7021-8 ####[facility]ORATORYCLIA [id number] [place] [address] MCH (RBC) [Entitic mass] 28.8 pg Normal 26.0-34.0 [facility] Comment on above: Order Comment: Speci men Type: BLOOD SPECIMEN Performed By: #### 5 7021-8 ####[facility]ATORYCLIA [id number] [place] [address] MCHC (RBC) [Mass/Vol] 32.2 g/dL Normal 30.5-36.0 [facility] Comment on above: Order Comment: Speci men Type: BLOOD SPECIMEN Performed By: #### 5 7021-8 ####[facility]ORATORYCLIA [id number] [place] [address] MCV (RBC) [Entitic vol] 89.6 fL Normal 80.0-100.0 [facility] Comment on above: Order Comment: Speci men Type: BLOOD SPECIMEN Performed By: #### 5 7021-8 ####[facility] LABORATORYCLIA [id number] [place] [address] Monocytes (Bld) [#/Vol] 1.98 10*3/uL High <0.87 [facility] Comment on above: Order Comment: Speci men Type: BLOOD SPECIMEN Performed By: #### 5 7021-8 ####[facility]ATORYCLIA [id number] [place] [address] Monocytes/100 WBC (Bld) 12.5 % Normal [facility] Comment on above: Order Comment: Speci men Type: BLOOD SPECIMEN Performed By: #### 5 7021-8 ####[facility]ORYCLIA [id number] [place] [address] Neutrophils (Bld) [#/Vol] 10.76 10*3/uL High 1.45-7.50 [facility] Comment on above: Order Comment: Speci men Type: BLOOD SPECIMEN Performed By: #### 5 7021-8 ####[facility]ORYCLIA [id number] [place] [address] Neutrophils/100 WBC (Bld) 68.0 % Normal [facility] Comment on above: Order Comment: Speci men Type: BLOOD SPECIMEN Performed By: #### 5 7021-8 ####[facility]ATORYCLIA [id number] [place] [address] Nucleated RBC (Bld) [#/Vol] 10*3/uL Normal <0.01 [facility] Comment on above: Order Comment: Speci men Type: BLOOD SPECIMEN Performed By: #### 5 7021-8 ####[facility]ORYCLIA [id number] [place] [address] Nucleated RBC/100 WBC (Bld) [Ratio] 0.0 /100 WBC Normal 0.0 [facility] Comment on above: Order Comment: Speci men Type: BLOOD SPECIMEN Performed By: #### 5 7021-8 ####[facility]ORYCLIA [id number] [place] [address] Platelet mean volume (Bld) [Entitic vol] 10.1 fL Normal 9.0-12.7 [facility] Comment on above: Order Comment: Speci men Type: BLOOD SPECIMEN Performed By: #### 5 7021-8 ####[facility]ORYCLIA [id number] [place] [address] Platelets (Bld) [#/Vol] 914 10*3/uL High 150-400 [facility] Comment on above: Order Comment: Speci men Type: BLOOD SPECIMEN Performed By: #### 5 7021-8 ####[facility]ORYCLIA [id number] [place] [address] RBC (Bld) [#/Vol] 4.51 10*6/uL Normal 3.90-5.20 [facility] Comment on above: Order Comment: Speci men Type: BLOOD SPECIMEN Performed By: #### 5 7021-8 ####[facility] LABORATORYCLIA [id number] [place] [address] WBC (Bld) [#/Vol] 15.82 10*3/uL High 3.70-11.00 [facility] Comment on above: Order Comment: Speci men Type: BLOOD SPECIMEN Performed By: #### 5 7021-8 ####[facility]ORATORYCLIA [id number] [place] [address] OPERATIVE NOon 01-14-2021 OPERATIVE NO Normal [facility] PT panel Coag (PPP)on 2020 INR Coag (PPP) [Relative time] 1.0 {INR} Normal 0.9-1.3 [facility] Comment on above: Order Comment: Speci men Type: BLOOD SPECIMEN Result Comment: Elisabeth min K Antagonist (VKA) Therapeutic Range: INR 2 to 3 (Target INR of 2.5)Note: For patients treated with VKA drugs, such as warfarin, the [place] [employer] 2012 Guideline recommends [...] al. Chest 2012, 141:7S-47SNishkarley RA, et al. [facility] 2017, 70: 252-289 Performed By: #### 3 4528-0 ####[facility] LABORATORYCLIA [id number] [place] [address] PT Coag (PPP) [Time] 10.8 s Normal 9.7-13.0 [facility] Comment on above: Order Comment: Speci men Type: BLOOD SPECIMEN Performed By: #### 3 4528-0 ####[facility] LABORATORYCLIA [id number] [place] [address] SARS-CoV-2 RNA Resp Ql LAVELL+p robeon 01-14-2021 SARS-CoV-2 (COVID-19) RNA LAVELL+probe Ql (Resp) COVID 19 RESULT: SARS-CoV-2 (Agent of COVID-19) Not Detected by PCR. This test has been authorized by FDA under an Emergency Use Authorization (EUA) [facility] Comment on above: Performed By: #### 9 4500-6 ####[facility] LABORATORYCLIA [id number] [place] [address] THERAPY NTon 01-14-2021 THERAPY NT Normal [facility] TYPE AND SCREENon 01-14-[address] [facility] Comment on above: Order Comment: Speci men Type: BLOOD SPECIMEN Performed By: #### T SCR ####[facility] BANKCLIA [id number] [place] [address] HISTORICAL AB SCR STATUS Negative [facility] Comment on above: Order Comment: Speci men Type: BLOOD SPECIMEN Performed By: #### T SCR ####[facility] B[facility] BANKCLIA [id number] [place] [address] Rh Nom (Bld) Positive [facility] Comment on above: Order Comment: Speci men Type: BLOOD SPECIMEN Performed By: #### T SCR ####[facility] BLO[facility] BANKCLIA [id number] [place] [address] TYPE AND SCREEN EXPIRATION 2021 23:59 [facility] Comment on above: Order Comment: Speci men Type: BLOOD SPECIMEN Performed By: #### T SCR ####[facility] BLO[facility] BANKCLIA [id number] [place] [address] XR HIP 3V PELV+ AP/LAT LTon 01-14-2021 XR HIP 3V PELV+ AP/LAT LT Normal [facility] XR PELVIS 1V APon 01-14-2021 XR PELVIS 1V AP Normal [facility] CBC panel Auto (Bld)on 01-13 Erythrocyte distribution width (RBC) [Ratio] 16.3 % High 11.5-15.0 [facility] Comment on above: Order Comment: Speci men Type: BLOOD SPECIMEN Performed By: #### 5 8410-2 ####[facility] LABORATORYCLIA [id number] [place] [address] Hematocrit (Bld) [Volume fraction] 42.0 % Normal 36.0-46.0 [facility] Comment on above: Order Comment: Speci men Type: BLOOD SPECIMEN Performed By: #### 5 8410-2 ####[facility] LAB[facility]ATORYCLIA [id number] [place] [address] Hemoglobin (Bld) [Mass/Vol] 12.9 g/dL Normal 11.5-15.5 [facility] Comment on above: Order Comment: Speci men Type: BLOOD SPECIMEN Performed By: #### 5 8410-2 ####[facility] LABORATORYCLIA [id number] [place] [address] MCH (RBC) [Entitic mass] 28.0 pg Normal 26.0-34.0 [facility] Comment on above: Order Comment: Speci men Type: BLOOD SPECIMEN Performed By: #### 5 8410-2 ####[facility]ATORYCLIA [id number] [place] [address] MCHC (RBC) [Mass/Vol] 30.7 g/dL Normal 30.5-36.0 [facility] Comment on above: Order Comment: Speci men Type: BLOOD SPECIMEN Performed By: #### 5 8410-2 ####[facility] LABORATORYCLIA [id number] [place] [address] MCV (RBC) [Entitic vol] 91.3 fL Normal 80.0-100.0 [facility] Comment on above: Order Comment: Speci men Type: BLOOD SPECIMEN Performed By: #### 5 8410-2 ####[facility]ORYCLIA [id number] [place] [address] Nucleated RBC (Bld) [#/Vol] 10*3/uL Normal <0.01 [facility] Comment on above: Order Comment: Speci men Type: BLOOD SPECIMEN Performed By: #### 5 8410-2 ####[facility]ATORYCLIA [id number] [place] [address] Platelet mean volume (Bld) [Entitic vol] 10.8 fL Normal 9.0-12.7 [facility] Comment on above: Order Comment: Speci men Type: BLOOD SPECIMEN Performed By: #### 5 8410-2 ####[facility] LAB[facility]ATORYCLIA [id number] [place] [address] Platelets (Bld) [#/Vol] 1048 10*3/uL High 150-400 [facility] Comment on above: Order Comment: Speci men Type: BLOOD SPECIMEN Result Comment: Plat elet count confirmed by manual review of peripheral blood smear Performed By: #### 5 8410-2 ####[facility] LABORATORYCLIA [id number] [place] [address] RBC (Bld) [#/Vol] 4.60 10*6/uL Normal 3.90-5.20 [facility] Comment on above: Order Comment: Speci men Type: BLOOD SPECIMEN Performed By: #### 5 8410-2 ####[facility]ORATORYCLIA [id number] [place] [address] WBC (Bld) [#/Vol] 11.66 10*3/uL High 3.70-11.00 [facility] Comment on above: Order Comment: Speci men Type: BLOOD SPECIMEN Performed By: #### 5 8410-2 ####[facility]ORYCLIA [id number] [place] [address] CASE MANAGEMon 01-12-2021 CASE MANAGEM Normal [facility] NUTRITIONon 01-12-2021 NUTRITION Normal [facility] THERAPY NTon 01-12-2021 THERAPY NT Normal [facility] THERAPY NT Normal [facility] CASE MANAGEMon 01-11-2021 CASE MANAGEM Normal [facility] CASE MANAGEM Normal [facility] NURSING PROGon 01-11-2021 NURSING PROG Normal [facility] CASE MANAGEMon 01-10-2021 CASE MANAGEM Normal [facility] CBC panel Auto (Bld)on 01-10 Erythrocyte distribution width (RBC) [Ratio] 16.8 % High 11.5-15.0 [facility] Comment on above: Order Comment: Speci men Type: BLOOD SPECIMEN Performed By: #### 5 8410-2 ####[facility] LABORATORYCLIA [id number] [place] [address] Hematocrit (Bld) [Volume fraction] 38.4 % Normal 36.0-46.0 [facility] Comment on above: Order Comment: Speci men Type: BLOOD SPECIMEN Performed By: #### 5 8410-2 ####[facility] LABORATORYCLIA [id number] [place] [address] Hemoglobin (Bld) [Mass/Vol] 12.2 g/dL Normal 11.5-15.5 [facility] Comment on above: Order Comment: Speci men Type: BLOOD SPECIMEN Performed By: #### 5 8410-2 ####[facility] LABORATORYCLIA [id number] [place] [address] MCH (RBC) [Entitic mass] 28.7 pg Normal 26.0-34.0 [facility] Comment on above: Order Comment: Speci men Type: BLOOD SPECIMEN Performed By: #### 5 8410-2 ####[facility] LABORATORYCLIA [id number] [place] [address] MCHC (RBC) [Mass/Vol] 31.8 g/dL Normal 30.5-36.0 [facility] Comment on above: Order Comment: Speci men Type: BLOOD SPECIMEN Performed By: #### 5 8410-2 ####[facility] LABORATORYCLIA [id number] [place] [address] MCV (RBC) [Entitic vol] 90.4 fL Normal 80.0-100.0 [facility] Comment on above: Order Comment: Speci men Type: BLOOD SPECIMEN Performed By: #### 5 8410-2 ####[facility] LABORATORYCLIA [id number] [place] [address] Nucleated RBC (Bld) [#/Vol] 0.02 10*3/uL High <0.01 [facility] Comment on above: Order Comment: Speci men Type: BLOOD SPECIMEN Performed By: #### 5 8410-2 ####[facility] LABORATORYCLIA [id number] [place] [address] Platelet mean volume (Bld) [Entitic vol] 10.9 fL Normal 9.0-12.7 [facility] Comment on above: Order Comment: Speci men Type: BLOOD SPECIMEN Performed By: #### 5 8410-2 ####[facility] LABORATORYCLIA [id number] [place] [address] Platelets (Bld) [#/Vol] 1251 10*3/uL High 150-400 [facility] Comment on above: Order Comment: Speci men Type: BLOOD SPECIMEN Performed By: #### 5 8410-2 ####[facility]ATORYCLIA [id number] [place] [address] RBC (Bld) [#/Vol] 4.25 10*6/uL Normal 3.90-5.20 [facility] Comment on above: Order Comment: Speci men Type: BLOOD SPECIMEN Performed By: #### 5 8410-2 ####[facility]ATORYCLIA [id number] [place] [address] WBC (Bld) [#/Vol] 16.61 10*3/uL High 3.70-11.00 [facility] Comment on above: Order Comment: Speci men Type: BLOOD SPECIMEN Performed By: #### 5 8410-2 ####[facility] LABORATORYCLIA [id number] [place] [address] NURSING PROGon 01-10-2021 NURSING PROG Normal [facility] THERAPY NTon 01-10-2021 THERAPY NT Normal [facility] Basic metabolic 2000 panelon 01-09-2021 Anion gap [Moles/Vol] 10 mmol/L Normal 9-18 [facility] Comment on above: Order Comment: Speci men Type: BLOOD SPECIMEN Performed By: #### 2 4321-2 ####[facility] LABORATORYCLIA [id number] [place] [address] Calcium [Mass/Vol] 9.4 mg/dL Normal 8.5-10.2 [facility] Comment on above: Order Comment: Speci men Type: BLOOD SPECIMEN Performed By: #### 2 4321-2 ####[facility] LABORATORYCLIA [id number] [place] [address] Chloride [Moles/Vol] 105 mmol/L Normal 97-105 [facility] Comment on above: Order Comment: Speci men Type: BLOOD SPECIMEN Performed By: #### 2 4321-2 ####[facility]ORYCL[facility] [id number] [place] [address] CO2 [Moles/Vol] 24 mmol/L Normal 22-30 [facility] Comment on above: Order Comment: Speci men Type: BLOOD SPECIMEN Performed By: #### 2 4321-2 ####[facility]ORYCL[facility] [id number] [place] [address] Creatinine [Mass/Vol] 0.66 mg/dL Normal 0.58-0.96 [facility] Comment on above: Order Comment: Speci men Type: BLOOD SPECIMEN Performed By: #### 2 4321-2 ####[facility]ATORYCL[facility] [id number] [place] [address] GFR/1.73 sq M.predicted MDRD (S/P/Bld) [Vol rate/Area] mL/min/{1.73_m2} Normal [facility] Comment on above: Order Comment: [...] actual GFR. Performed By: #### 2 4321-2 ####[facility]ORYCL[facility] [id number] [place] [address] Glucose [Mass/Vol] 154 mg/dL High 74-99 [facility] Comment on above: Order Comment: Speci men Type: BLOOD SPECIMEN Result Comment: The [place] [employer] (ADA) provides guidance for cutoff [...] Standards of Medical Care in Diabetes 2016, [place] [employer]. Diabetes Care. 2016.39(Suppl 1). Performed By: #### 2 4321-2 ####[facility]ATORYCLIA [id number] [place] [address] Potassium [Moles/Vol] 4.5 mmol/L Normal 3.7-5.1 [facility] Comment on above: Order Comment: Speci men Type: BLOOD SPECIMEN Performed By: #### 2 4321-2 ####[facility]ATORYCLIA [id number] [place] [address] Sodium [Moles/Vol] 139 mmol/L Normal 136-144 [facility] Comment on above: Order Comment: Speci men Type: BLOOD SPECIMEN Performed By: #### 2 4321-2 ####[facility]ORYCLIA [id number] [place] [address] Urea nitrogen [Mass/Vol] 35 mg/dL High 7-21 [facility] Comment on above: Order Comment: Speci men Type: BLOOD SPECIMEN Performed By: #### 2 4321-2 ####[facility]ATORYCLIA [id number] [place] [address] CASE MANAGEMon 01-09-2021 CASE MANAGEM Normal [facility] CBC panel Auto (Bld)on 01-09 Erythrocyte distribution width (RBC) [Ratio] 17.1 % High 11.5-15.0 [facility] Comment on above: Order Comment: Speci men Type: BLOOD SPECIMEN Performed By: #### 5 8410-2 ####[facility]ORYCLIA [id number] [place] [address] Hematocrit (Bld) [Volume fraction] 38.2 % Normal 36.0-46.0 [facility] Comment on above: Order Comment: Speci men Type: BLOOD SPECIMEN Performed By: #### 5 8410-2 ####[facility]ORYCLIA [id number] [place] [address] Hemoglobin (Bld) [Mass/Vol] 12.3 g/dL Normal 11.5-15.5 [facility] Comment on above: Order Comment: Speci men Type: BLOOD SPECIMEN Performed By: #### 5 8410-2 ####[facility]ATORYCLIA [id number] [place] [address] MCH (RBC) [Entitic mass] 28.8 pg Normal 26.0-34.0 [facility] Comment on above: Order Comment: Speci men Type: BLOOD SPECIMEN Performed By: #### 5 8410-2 ####[facility]ORYCLIA [id number] [place] [address] MCHC (RBC) [Mass/Vol] 32.2 g/dL Normal 30.5-36.0 [facility] Comment on above: Order Comment: Speci men Type: BLOOD SPECIMEN Performed By: #### 5 8410-2 ####[facility]ORYCLIA [id number] [place] [address] MCV (RBC) [Entitic vol] 89.5 fL Normal 80.0-100.0 [facility] Comment on above: Order Comment: Speci men Type: BLOOD SPECIMEN Performed By: #### 5 8410-2 ####[facility]ATORYCLIA [id number] [place] [address] Nucleated RBC (Bld) [#/Vol] 0.02 10*3/uL High <0.01 [facility] Comment on above: Order Comment: Speci men Type: BLOOD SPECIMEN Performed By: #### 5 8410-2 ####[facility]ATORYCLIA [id number] [place] [address] Platelet mean volume (Bld) [Entitic vol] 10.8 fL Normal 9.0-12.7 [facility] Comment on above: Order Comment: Speci men Type: BLOOD SPECIMEN Performed By: #### 5 8410-2 ####[facility]ORYCLIA [id number] [place] [address] Platelets (Bld) [#/Vol] 1121 10*3/uL High 150-400 [facility] Comment on above: Order Comment: Speci men Type: BLOOD SPECIMEN Result Comment: Plat elet count confirmed by manual review of peripheral blood smear Performed By: #### 5 8410-2 ####[facility]ATORYCLIA [id number] [place] [address] RBC (Bld) [#/Vol] 4.27 10*6/uL Normal 3.90-5.20 [facility] Comment on above: Order Comment: Speci men Type: BLOOD SPECIMEN Performed By: #### 5 8410-2 ####[facility]ATORYCLIA [id number] [place] [address] WBC (Bld) [#/Vol] 17.33 10*3/uL High 3.70-11.00 [facility] Comment on above: Order Comment: Speci men Type: BLOOD SPECIMEN Performed By: #### 5 8410-2 ####[facility]ATORYCLIA [id number] [place] [address] NURSING PROGon 01-09-2021 NURSING PROG Normal [facility] NURSING PROG Normal [facility] NUTRITIONon 01-09-2021 NUTRITION Normal [facility] THERAPY NTon 01-09-2021 THERAPY NT Normal [facility] Basic metabolic 2000 panelon 01-08-2021 Anion gap [Moles/Vol] 11 mmol/L Normal 9-18 [facility] Comment on above: Order Comment: Speci men Type: BLOOD SPECIMEN Performed By: #### Marilyn BERTRAND, 80006-3 ####[facility] LABORATORYCLIA [id number] [place] [address] Calcium [Mass/Vol] 10.0 mg/dL Normal 8.5-10.2 [facility] Comment on above: Order Comment: Speci men Type: BLOOD SPECIMEN Performed By: #### Marilyn BERTRAND, 66442-5 ####[facility]ATORYCLIA [id number] [place] [address] Chloride [Moles/Vol] 103 mmol/L Normal 97-105 [facility] Comment on above: Order Comment: Speci men Type: BLOOD SPECIMEN Performed By: #### Marilyn BERTRAND, 52957-4 ####[facility]ORYCLIA [id number] [place] [address] CO2 [Moles/Vol] 24 mmol/L Normal 22-30 [facility] Comment on above: Order Comment: Speci men Type: BLOOD SPECIMEN Performed By: #### Marilyn BERTRAND, 14182-0 ####[facility]ORYCLIA [id number] [place] [address] Creatinine [Mass/Vol] 0.70 mg/dL Normal 0.58-0.96 [facility] Comment on above: Order Comment: Speci men Type: BLOOD SPECIMEN Performed By: #### Marilyn BERTRAND, 05427-4 ####[facility]ORYCLIA [id number] [place] [address] GFR/1.73 sq M.predicted MDRD (S/P/Bld) [Vol rate/Area] mL/min/{1.73_m2} Normal [facility] Comment on above: Order Comment: [...] actual GFR. Performed By: #### Marilyn BERTRAND 50782-4 ####[facility]ATORYCLIA [id number] [place] [address] Glucose [Mass/Vol] 159 mg/dL High 74-99 [facility] Comment on above: Order Comment: Speci men Type: BLOOD SPECIMEN Result Comment: The [place] [employer] (ADA) provides guidance for cutoff [...] Standards of Medical Care in Diabetes 2016, [place] [employer]. Diabetes Care. 2016.39(Suppl 1). Performed By: #### Marilyn BERTRAND, 55350-5 ####[facility]ATORYCLIA [id number] [place] [address] Potassium [Moles/Vol] 3.9 mmol/L Normal 3.7-5.1 [facility] Comment on above: Order Comment: Speci men Type: BLOOD SPECIMEN Performed By: #### Marilyn BERTRAND, 32189-7 ####[facility]ATORYCLIA [id number] [place] [address] Sodium [Moles/Vol] 138 mmol/L Normal 136-144 [facility] Comment on above: Order Comment: Speci men Type: BLOOD SPECIMEN Performed By: #### P ELZA, 57538-2 ####[facility]ATORYCLIA [id number] [place] [address] Urea nitrogen [Mass/Vol] 33 mg/dL High 7- [facility] Comment on above: Order Comment: Speci men Type: BLOOD SPECIMEN Performed By: #### Marilyn BERTRAND, 64045-1 ####[facility]ATORYCLIA [id number] [place] [address] CASE MANAGEMon 01-08-2021 CASE MANAGEM Normal [facility] CBC panel Auto (Bld)on 01-08 Erythrocyte distribution width (RBC) [Ratio] 17.0 % High 11.5-15.0 [facility] Comment on above: Order Comment: Speci men Type: BLOOD SPECIMEN Performed By: #### 5 8410-2 ####[facility]ATORYCLIA [id number] [place] [address] Hematocrit (Bld) [Volume fraction] 38.9 % Normal 36.0-46.0 [facility] Comment on above: Order Comment: Speci men Type: BLOOD SPECIMEN Performed By: #### 5 8410-2 ####[facility]ATORYCLIA [id number] [place] [address] Hemoglobin (Bld) [Mass/Vol] 13.0 g/dL Normal 11.5-15.5 [facility] Comment on above: Order Comment: Speci men Type: BLOOD SPECIMEN Performed By: #### 5 8410-2 ####[facility]ATORYCLIA [id number] [place] [address] MCH (RBC) [Entitic mass] 29.1 pg Normal 26.0-34.0 [facility] Comment on above: Order Comment: Speci men Type: BLOOD SPECIMEN Performed By: #### 5 8410-2 ####[facility]ATORYCLIA [id number] [place] [address] MCHC (RBC) [Mass/Vol] 33.4 g/dL Normal 30.5-36.0 [facility] Comment on above: Order Comment: Speci men Type: BLOOD SPECIMEN Performed By: #### 5 8410-2 ####[facility]ATORYCLIA [id number] [place] [address] MCV (RBC) [Entitic vol] 87.2 fL Normal 80.0-100.0 [facility] Comment on above: Order Comment: Speci men Type: BLOOD SPECIMEN Performed By: #### 5 8410-2 ####[facility]ATORYCLIA [id number] [place] [address] Nucleated RBC (Bld) [#/Vol] 10*3/uL Normal <0.01 [facility] Comment on above: Order Comment: Speci men Type: BLOOD SPECIMEN Performed By: #### 5 8410-2 ####[facility]ATORYCLIA [id number] [place] [address] Platelet mean volume (Bld) [Entitic vol] 10.7 fL Normal 9.0-12.7 [facility] Comment on above: Order Comment: Speci men Type: BLOOD SPECIMEN Performed By: #### 5 8410-2 ####[facility]ATORYCLIA [id number] [place] [address] Platelets (Bld) [#/Vol] 1099 10*3/uL High 150-400 [facility] Comment on above: Order Comment: Speci men Type: BLOOD SPECIMEN Performed By: #### 5 8410-2 ####[facility]ATORYCLIA [id number] [place] [address] RBC (Bld) [#/Vol] 4.46 10*6/uL Normal 3.90-5.20 [facility] Comment on above: Order Comment: Speci men Type: BLOOD SPECIMEN Performed By: #### 5 8410-2 ####[facility]ATORYCLIA [id number] [place] [address] WBC (Bld) [#/Vol] 21.32 10*3/uL High 3.70-11.00 [facility] Comment on above: Order Comment: Speci men Type: BLOOD SPECIMEN Performed By: #### 5 8410-2 ####[facility]ATORYCLIA [id number] [place] [address] CRP SerPl-mCncon 01-08-2021 CRP [Mass/Vol] 7.7 mg/dL High <0.9 [facility] Comment on above: Order Comment: Speci men Type: BLOOD SPECIMEN Performed By: #### 1 988-5 ####[facility]ATORYCLIA [id number] [place] [address] NURSING PROGon 01-08-2021 NURSING PROG Normal [facility] NURSING PROG Normal [facility] PROCALCITONIN (LAB)on 2020 Procalcitonin [Mass/Vol] 0.97 ng/mL High <0.09 [facility] Comment on above: Order Comment: Speci men Type: BLOOD SPECIMEN Result Comment: For a guided interpretation of test results, please visit the Change in Procalcitonin Calculator, [email or web address]. Performed By: #### P ELZA, 53875-0 ####[facility]ATORYCLIA [id number] [place] [address] Prealbumin [Mass/Vol]on 12-17 Prealbumin Nephelometry [Mass/Vol] 32 mg/dL Normal 17-36 [facility] Comment on above: Order Comment: Speci men Type: BLOOD SPECIMEN Performed By: #### 1 4338-8 ####[facility]ATORYCLIA [id number] [place] [address] THERAPY NTon 01-08-2021 THERAPY NT Normal [facility] THERAPY NT Normal [facility] THERAPY NT Normal [facility] XR MOD BARIUM SWALLOW W SPEE Olya 01-08-2021 XR MOD BARIUM SWALLOW W SPEECH Normal [facility] ALLIED HEALTHon 01-07-2021 ALLIED HEALTH Normal [facility] Basic metabolic 2000 panelon 01-07-2021 Anion gap [Moles/Vol] 12 mmol/L Normal 9-18 [facility] Comment on above: Order Comment: Speci men Type: BLOOD SPECIMEN Performed By: #### 2 4321-2, 01606-0 ####[facility]ATORYCLIA [id number] [place] [address] Calcium [Mass/Vol] 10.3 mg/dL High 8.5-10.2 [facility] Comment on above: Order Comment: Speci men Type: BLOOD SPECIMEN Performed By: #### 2 4321-2, 55106-8 ####[facility]ATORYCLIA [id number] [place] [address] Chloride [Moles/Vol] 102 mmol/L Normal 97-105 [facility] Comment on above: Order Comment: Speci men Type: BLOOD SPECIMEN Performed By: #### 2 4321-2, 25799-0 ####[facility]ATORYCLIA [id number] [place] [address] CO2 [Moles/Vol] 26 mmol/L Normal 22-30 [facility] Comment on above: Order Comment: Speci men Type: BLOOD SPECIMEN Performed By: #### 2 4321-2, 92959-6 ####[facility]ATORYCLIA [id number] [place] [address] Creatinine [Mass/Vol] 0.67 mg/dL Normal 0.58-0.96 [facility] Comment on above: Order Comment: Speci men Type: BLOOD SPECIMEN Performed By: #### 2 4321-2, 68191-7 ####[facility]ATORYCLIA [id number] [place] [address] GFR/1.73 sq M.predicted MDRD (S/P/Bld) [Vol rate/Area] mL/min/{1.73_m2} Normal [facility] Comment on above: Order Comment: [...] actual GFR. Performed By: #### 2 4321-2, 56802-4 ####[facility]ATORYCLIA [id number] [place] [address] Glucose [Mass/Vol] 159 mg/dL High 74-99 [facility] Comment on above: Order Comment: Speci men Type: BLOOD SPECIMEN Result Comment: The [place] [employer] (ADA) provides guidance for cutoff [...] Standards of Medical Care in Diabetes 2016, [place] [employer]. Diabetes Care. 2016.39(Suppl 1). Performed By: #### 2 4321-2, 45713-4 ####[facility]ATORYCLIA [id number] [place] [address] Potassium [Moles/Vol] 4.1 mmol/L Normal 3.7-5.1 [facility] Comment on above: Order Comment: Speci men Type: BLOOD SPECIMEN Performed By: #### 2 4321-2, 20703-4 ####[facility]ATORYCLIA [id number] [place] [address] Sodium [Moles/Vol] 140 mmol/L Normal 136-144 [facility] Comment on above: Order Comment: Speci men Type: BLOOD SPECIMEN Performed By: #### 2 4321-2, 44999-5 ####[facility]ATORYCLIA [id number] [place] [address] Urea nitrogen [Mass/Vol] 33 mg/dL High 7-21 [facility] Comment on above: Order Comment: Speci men Type: BLOOD SPECIMEN Performed By: #### 2 4321-2, 70836-9 ####[facility]ATORYCLIA [id number] [place] [address] CBC panel Auto (Bld)on 01-07 Erythrocyte distribution width (RBC) [Ratio] 17.1 % High 11.5-15.0 [facility] Comment on above: Order Comment: Speci men Type: BLOOD SPECIMEN Performed By: #### 5 8410-2 ####[facility]ATORYCLIA [id number] [place] [address] Hematocrit (Bld) [Volume fraction] 44.5 % Normal 36.0-46.0 [facility] Comment on above: Order Comment: Speci men Type: BLOOD SPECIMEN Performed By: #### 5 8410-2 ####[facility]ATORYCLIA [id number] [place] [address] Hemoglobin (Bld) [Mass/Vol] 14.0 g/dL Normal 11.5-15.5 [facility] Comment on above: Order Comment: Speci men Type: BLOOD SPECIMEN Performed By: #### 5 8410-2 ####[facility]ATORYCLIA [id number] [place] [address] MCH (RBC) [Entitic mass] 28.2 pg Normal 26.0-34.0 [facility] Comment on above: Order Comment: Speci men Type: BLOOD SPECIMEN Performed By: #### 5 8410-2 ####[facility]ATORYCLIA [id number] [place] [address] MCHC (RBC) [Mass/Vol] 31.5 g/dL Normal 30.5-36.0 [facility] Comment on above: Order Comment: Speci men Type: BLOOD SPECIMEN Performed By: #### 5 8410-2 ####[facility]ATORYCLIA [id number] [place] [address] MCV (RBC) [Entitic vol] 89.7 fL Normal 80.0-100.0 [facility] Comment on above: Order Comment: Speci men Type: BLOOD SPECIMEN Performed By: #### 5 8410-2 ####[facility]ATORYCLIA [id number] [place] [address] Nucleated RBC (Bld) [#/Vol] 10*3/uL Normal <0.01 [facility] Comment on above: Order Comment: Speci men Type: BLOOD SPECIMEN Performed By: #### 5 8410-2 ####[facility]ATORYCLIA [id number] [place] [address] Platelet mean volume (Bld) [Entitic vol] 11.1 fL Normal 9.0-12.7 [facility] Comment on above: Order Comment: Speci men Type: BLOOD SPECIMEN Performed By: #### 5 8410-2 ####[facility]ATORYCLIA [id number] [place] [address] Platelets (Bld) [#/Vol] 1068 10*3/uL High 150-400 [facility] Comment on above: Order Comment: Speci men Type: BLOOD SPECIMEN Performed By: #### 5 8410-2 ####[facility]ORYCLIA [id number] [place] [address] RBC (Bld) [#/Vol] 4.96 10*6/uL Normal 3.90-5.20 [facility] Comment on above: Order Comment: Speci men Type: BLOOD SPECIMEN Performed By: #### 5 8410-2 ####[facility]ATORYCLIA [id number] [place] [address] WBC (Bld) [#/Vol] 18.49 10*3/uL High 3.70-11.00 [facility] Comment on above: Order Comment: Speci men Type: BLOOD SPECIMEN Performed By: #### 5 8410-2 ####[facility]ATORYCLIA [id number] [place] [address] CONSULTon 01-07-2021 CONSULT Normal [facility] NT-proBNP SerPl-mCncon 01-07 Natriuretic peptide.B prohormone N-Terminal [Mass/Vol] 288 pg/mL High <125 [facility] Comment on above: Order Comment: Speci men Type: BLOOD SPECIMEN Performed By: #### 2 4321-2, 73803-4 ####[facility]ORYCLIA [id number] [place] [address] NURSING PROGon 01-07-2021 NURSING PROG Normal [facility] NURSING PROG Normal [facility] NURSING PROG Normal [facility] THERAPY NTon 01-07-2021 THERAPY NT Normal [facility] XR CHEST 1V FRONTALon 2020 XR CHEST 1V FRONTAL Normal [facility] ALLIED HEALTHon 01-06-2021 ALLIED HEALTH Normal [facility] Basic metabolic 2000 panelon 01-06-2021 Anion gap [Moles/Vol] 8 mmol/L Low 9-18 [facility] Comment on above: Order Comment: Speci men Type: BLOOD SPECIMEN Performed By: #### 2 4321-2 ####[facility]ORYCLIA [id number] [place] [address] Calcium [Mass/Vol] 9.4 mg/dL Normal 8.5-10.2 [facility] Comment on above: Order Comment: Speci men Type: BLOOD SPECIMEN Performed By: #### 2 4321-2 ####[facility]ORYCLIA [id number] [place] [address] Chloride [Moles/Vol] 104 mmol/L Normal 97-105 [facility] Comment on above: Order Comment: Speci men Type: BLOOD SPECIMEN Performed By: #### 2 4321-2 ####[facility]ORYCLIA [id number] [place] [address] CO2 [Moles/Vol] 24 mmol/L Normal 22-30 [facility] Comment on above: Order Comment: Speci men Type: BLOOD SPECIMEN Performed By: #### 2 4321-2 ####[facility]ORYCLIA [id number] [place] [address] Creatinine [Mass/Vol] 0.77 mg/dL Normal 0.58-0.96 [facility] Comment on above: Order Comment: Speci men Type: BLOOD SPECIMEN Performed By: #### 2 4321-2 ####[facility]ATORYCLIA [id number] [place] [address] GFR/1.73 sq M.predicted MDRD (S/P/Bld) [Vol rate/Area] mL/min/{1.73_m2} Normal [facility] Comment on above: Order Comment: [...] actual GFR. Performed By: #### 2 4321-2 ####[facility]ATORYCLIA [id number] [place] [address] Glucose [Mass/Vol] 150 mg/dL High 74-99 [facility] Comment on above: Order Comment: Speci men Type: BLOOD SPECIMEN Result Comment: The [place] [employer] Association (ADA) provides guidance for cutoff [...] Standards of Medical Care in Diabetes 2016, [place] [employer]. Diabetes Care. 2016.39(Suppl 1). Performed By: #### 2 4321-2 ####[facility]ATORYCLIA [id number] [place] [address] Potassium [Moles/Vol] 3.9 mmol/L Normal 3.7-5.1 [facility] Comment on above: Order Comment: Speci men Type: BLOOD SPECIMEN Performed By: #### 2 4321-2 ####[facility]ATORYCLIA [id number] [place] [address] Sodium [Moles/Vol] 136 mmol/L Normal 136-144 [facility] Comment on above: Order Comment: Speci men Type: BLOOD SPECIMEN Performed By: #### 2 4321-2 ####[facility]ATORYCLIA [id number] [place] [address] Urea nitrogen [Mass/Vol] 32 mg/dL High 7- [facility] Comment on above: Order Comment: Speci men Type: BLOOD SPECIMEN Performed By: #### 2 4321-2 ####[facility]ATORYCLIA [id number] [place] [address] CBC panel Auto (Bld)on 01-06 Erythrocyte distribution width (RBC) [Ratio] 16.6 % High 11.5-15.0 [facility] Comment on above: Order Comment: Speci men Type: BLOOD SPECIMEN Performed By: #### 5 8410-2 ####[facility]ATORYCLIA [id number] [place] [address] Hematocrit (Bld) [Volume fraction] 40.3 % Normal 36.0-46.0 [facility] Comment on above: Order Comment: Speci men Type: BLOOD SPECIMEN Performed By: #### 5 8410-2 ####[facility]ATORYCLIA [id number] [place] [address] Hemoglobin (Bld) [Mass/Vol] 12.7 g/dL Normal 11.5-15.5 [facility] Comment on above: Order Comment: Speci men Type: BLOOD SPECIMEN Performed By: #### 5 8410-2 ####[facility]ATORYCLIA [id number] [place] [address] MCH (RBC) [Entitic mass] 28.2 pg Normal 26.0-34.0 [facility] Comment on above: Order Comment: Speci men Type: BLOOD SPECIMEN Performed By: #### 5 8410-2 ####[facility]ATORYCLIA [id number] [place] [address] MCHC (RBC) [Mass/Vol] 31.5 g/dL Normal 30.5-36.0 [facility] Comment on above: Order Comment: Speci men Type: BLOOD SPECIMEN Performed By: #### 5 8410-2 ####[facility]ATORYCLIA [id number] [place] [address] MCV (RBC) [Entitic vol] 89.4 fL Normal 80.0-100.0 [facility] Comment on above: Order Comment: Speci men Type: BLOOD SPECIMEN Performed By: #### 5 8410-2 ####[facility]ATORYCLIA [id number] [place] [address] Nucleated RBC (Bld) [#/Vol] 10*3/uL Normal <0.01 [facility] Comment on above: Order Comment: Speci men Type: BLOOD SPECIMEN Performed By: #### 5 8410-2 ####[facility]ATORYCLIA [id number] [place] [address] Platelet mean volume (Bld) [Entitic vol] 11.1 fL Normal 9.0-12.7 [facility] Comment on above: Order Comment: Speci men Type: BLOOD SPECIMEN Performed By: #### 5 8410-2 ####[facility]ATORYCLIA [id number] [place] [address] Platelets (Bld) [#/Vol] 781 10*3/uL High 150-400 [facility] Comment on above: Order Comment: Speci men Type: BLOOD SPECIMEN Performed By: #### 5 8410-2 ####[facility]ORYCLIA [id number] [place] [address] RBC (Bld) [#/Vol] 4.51 10*6/uL Normal 3.90-5.20 [facility] Comment on above: Order Comment: Speci men Type: BLOOD SPECIMEN Performed By: #### 5 8410-2 ####[facility]ATORYCLIA [id number] [place] [address] WBC (Bld) [#/Vol] 17.71 10*3/uL High 3.70-11.00 [facility] Comment on above: Order Comment: Speci men Type: BLOOD SPECIMEN Performed By: #### 5 8410-2 ####[facility]ATORYCLIA [id number] [place] [address] NURSING PROGon 01-06-2021 NURSING PROG Normal [facility] UA WITH CULTURE IF INDICATED on 01-06-2021 Bacteria LM.HPF (Urine sed) [#/Area] None Seen Normal None Seen [facility] Comment on above: Order Comment: Speci men Type: URINE SPECIMEN Performed By: #### U ACII ####[facility]ATORYCLIA [id number] [place] [address] Bilirubin Ql (U) Negative Normal Negative [facility] Comment on above: Order Comment: Speci men Type: URINE SPECIMEN Performed By: #### U ACII ####[facility]ATORYCLIA [id number] [place] [address] Clarity (Unsp spec) Cloudy Abnormal Clear [facility] Comment on above: Order Comment: Speci men Type: URINE SPECIMEN Performed By: #### U ACII ####[facility]ORY[facility] [id number] [place] [address] Color (U) Yellow Normal Yellow [facility] Comment on above: Order Comment: Speci men Type: URINE SPECIMEN Performed By: #### U ACII ####[facility] [id number] [place] [address] Epithelial cells LM.HPF (Urine sed) [#/Area] 0.8 /[HPF] Normal [facility] Comment on above: Order Comment: Speci men Type: URINE SPECIMEN Performed By: #### U ACII ####[facility]ORY[facility] [id number] [place] [address] Glucose Test strip (U) [Mass/Vol] Negative Normal Negative [facility] Comment on above: Order Comment: Speci men Type: URINE SPECIMEN Performed By: #### U ACII ####[facility]ORY[facility] [id number] [place] [address] Hemoglobin Ql (U) Negative Normal Negative [facility] Comment on above: Order Comment: Speci men Type: URINE SPECIMEN Performed By: #### U ACII ####[facility]ORYCL[facility] [id number] [place] [address] Hyaline casts (Urine sed) [#/Area] 0 /[LPF] Normal 0 /LPF [facility] Comment on above: Order Comment: Speci men Type: URINE SPECIMEN Performed By: #### U ACII ####[facility] LABORATORYCLIA [id number] [place] [address] Ketones Ql (U) Negative Normal Negative [facility] Comment on above: Order Comment: Speci men Type: URINE SPECIMEN Performed By: #### U ACII ####[facility]ATORYCLIA [id number] [place] [address] Leukocyte esterase Test strip Ql (U) Negative Normal Negative [facility] Comment on above: Order Comment: Speci men Type: URINE SPECIMEN Performed By: #### U ACII ####[facility]ATORYCLIA [id number] [place] [address] Nitrite Ql (U) Negative Normal Negative [facility] Comment on above: Order Comment: Speci men Type: URINE SPECIMEN Performed By: #### U ACII ####[facility]ATORYCLIA [id number] [place] [address] pH (U) 7.0 [pH] Normal 5.0-8.0 [facility] Comment on above: Order Comment: Speci men Type: URINE SPECIMEN Performed By: #### U ACII ####[facility]ORATORYCLIA [id number] [place] [address] Protein (U) [Mass/Vol] Negative Normal Negative [facility] Comment on above: Order Comment: Speci men Type: URINE SPECIMEN Performed By: #### U ACII ####[facility] LABORATORYCLIA [id number] [place] [address] RBC LM.HPF (Urine sed) [#/Area] 3-5 /HPF Abnormal 0-3 /HPF [facility] Comment on above: Order Comment: Speci men Type: URINE SPECIMEN Performed By: #### U ACII ####[facility] LABORATORYCLIA [id number] [place] [address] Specific gravity (U) [Rel density] 1.025 Normal 1.005-1.030 [facility] Comment on above: Order Comment: Speci men Type: URINE SPECIMEN Performed By: #### U ACII ####[facility] LABORATORYCLIA [id number] [place] [address] Urobilinogen Ql (U) 4.0 EU/dL Abnormal 0.2-1.0 EU/dL [facility] Comment on above: Order Comment: Speci men Type: URINE SPECIMEN Performed By: #### U ACII ####[facility] LABORATORYCLIA [id number] [place] [address] WBC LM.HPF (Urine sed) [#/Area] 0-5 /HPF Normal 0-5 /HPF [facility] Comment on above: Order Comment: Speci men Type: URINE SPECIMEN Performed By: #### U ACII ####[facility] LABORATORYCLIA [id number] [place] [address] XR KNEE 2V AP/LAT RTon 01-06 XR KNEE 2V AP/LAT RT Normal [facility] ALLIED HEALTHon 01-05-2021 ALLIED HEALTH Normal [facility] ALLIED HEALTH Normal [facility] ALLIED HEALTH Normal [facility] Basic metabolic 2000 panelon 01-05-2021 Anion gap [Moles/Vol] 11 mmol/L Normal 9-18 [facility] Comment on above: Order Comment: Speci men Type: BLOOD SPECIMEN Performed By: #### 2 4321-2 ####[facility] LABORATORYCLIA [id number] [place] [address] Calcium [Mass/Vol] 9.3 mg/dL Normal 8.5-10.2 [facility] Comment on above: Order Comment: Speci men Type: BLOOD SPECIMEN Performed By: #### 2 4321-2 ####[facility] LABORATORYCLIA [id number] [place] [address] Chloride [Moles/Vol] 105 mmol/L Normal 97-105 [facility] Comment on above: Order Comment: Speci men Type: BLOOD SPECIMEN Performed By: #### 2 4321-2 ####[facility] LABORATORYCLIA [id number] [place] [address] CO2 [Moles/Vol] 20 mmol/L Low 22-30 [facility] Comment on above: Order Comment: Speci men Type: BLOOD SPECIMEN Performed By: #### 2 4321-2 ####[facility] LABORATORYCLIA [id number] [place] [address] Creatinine [Mass/Vol] 0.84 mg/dL Normal 0.58-0.96 [facility] Comment on above: Order Comment: Speci men Type: BLOOD SPECIMEN Performed By: #### 2 4321-2 ####[facility] LABORATORYCLIA [id number] [place] [address] GFR/1.73 sq M.predicted MDRD (S/P/Bld) [Vol rate/Area] mL/min/{1.73_m2} Normal [facility] Comment on above: Order Comment: Speci men Type: BLOOD SPECIMEN Result Comment: >60e GFR (Estimated GFR) Units of measure: mL/min/1.73 meters squaredeGFR is derived from the reexpressed MDRD Study equation using the following parameters: serum creatinine, age, gender and race. The creatinine assay has been calibrated to be traceable to [employer]. An eGFR <60 mL/min/1.73m2 for >3 months is consistent with chronic kidney disease. Refer to KDOQI guidelines for clinical interpretation. In patients with unstable renal function, e.g. those with acute kidney injury, the eGFR may not accurately reflect actual GFR. Performed By: #### 2 4321-2 ####[facility] LABORATORYCLIA [id number] [place] [address] Glucose [Mass/Vol] 150 mg/dL High 74-99 [facility] Comment on above: Order Comment: Speci men Type: BLOOD SPECIMEN Result Comment: The [place] Diabetes Association (ADA) provides guidance for cutoff [...] Standards of Medical Care in Diabetes 2016, [place] [employer]. Diabetes Care. 2016.39(Suppl 1). Performed By: #### 2 4321-2 ####[facility] LABORATORYCLIA [id number] [place] [address] Potassium [Moles/Vol] Normal [facility] Comment on above: Order Comment: Speci men Type: BLOOD SPECIMEN Result Comment: Unab le to assay due to interference from hemolysis. Suggest reorder as clinically indicated. Performed By: #### 2 4321-2 ####[facility] LABORATORYCLIA [id number] [place] [address] Sodium [Moles/Vol] 136 mmol/L Normal 136-144 [facility] Comment on above: Order Comment: Speci men Type: BLOOD SPECIMEN Performed By: #### 2 4321-2 ####[facility] LABORATORYCLIA [id number] [place] [address] Urea nitrogen [Mass/Vol] 36 mg/dL High - [facility] Comment on above: Order Comment: Speci men Type: BLOOD SPECIMEN Performed By: #### 2 4321-2 ####[facility] LABORATORYCLIA [id number] [place] [address] CASE MANAGEMon 01-05-2021 CASE MANAGEM Normal [facility] CBC panel Auto (Bld)on 01-05 Erythrocyte distribution width (RBC) [Ratio] 16.4 % High 11.5-15.0 [facility] Comment on above: Order Comment: Speci men Type: BLOOD SPECIMEN Performed By: #### 5 8410-2 ####[facility] LABORATORYCLIA [id number] [place] [address] Hematocrit (Bld) [Volume fraction] 40.0 % Normal 36.0-46.0 [facility] Comment on above: Order Comment: Speci men Type: BLOOD SPECIMEN Performed By: #### 5 8410-2 ####[facility]ORATORYCLIA [id number] [place] [address] Hemoglobin (Bld) [Mass/Vol] 12.8 g/dL Normal 11.5-15.5 [facility] Comment on above: Order Comment: Speci men Type: BLOOD SPECIMEN Performed By: #### 5 8410-2 ####[facility] LABORATORYCLIA [id number] [place] [address] MCH (RBC) [Entitic mass] 28.7 pg Normal 26.0-34.0 [facility] Comment on above: Order Comment: Speci men Type: BLOOD SPECIMEN Performed By: #### 5 8410-2 ####[facility] LABORATORYCLIA [id number] [place] [address] MCHC (RBC) [Mass/Vol] 32.0 g/dL Normal 30.5-36.0 [facility] Comment on above: Order Comment: Speci men Type: BLOOD SPECIMEN Performed By: #### 5 8410-2 ####[facility] LABORATORYCLIA [id number] [place] [address] MCV (RBC) [Entitic vol] 89.7 fL Normal 80.0-100.0 [facility] Comment on above: Order Comment: Speci men Type: BLOOD SPECIMEN Performed By: #### 5 8410-2 ####[facility] LABORATORYCLIA [id number] [place] [address] Nucleated RBC (Bld) [#/Vol] 0.02 10*3/uL High <0.01 [facility] Comment on above: Order Comment: Speci men Type: BLOOD SPECIMEN Performed By: #### 5 8410-2 ####[facility] LABORATORYCLIA [id number] [place] [address] Platelet mean volume (Bld) [Entitic vol] 11.5 fL Normal 9.0-12.7 [facility] Comment on above: Order Comment: Speci men Type: BLOOD SPECIMEN Performed By: #### 5 8410-2 ####[facility] LABORATORYCLIA [id number] [place] [address] Platelets (Bld) [#/Vol] 587 10*3/uL High 150-400 [facility] Comment on above: Order Comment: Speci men Type: BLOOD SPECIMEN Performed By: #### 5 8410-2 ####[facility] LABORATORYCLIA [id number] [place] [address] RBC (Bld) [#/Vol] 4.46 10*6/uL Normal 3.90-5.20 [facility] Comment on above: Order Comment: Speci men Type: BLOOD SPECIMEN Performed By: #### 5 8410-2 ####[facility]ORATORYCLIA [id number] [place] [address] WBC (Bld) [#/Vol] 19.64 10*3/uL High 3.70-11.00 [facility] Comment on above: Order Comment: Speci men Type: BLOOD SPECIMEN Performed By: #### 5 8410-2 ####[facility] LABORATORYCLIA [id number] [place] [address] CT ABD/PEL W IVCONon 021 CT ABD/PEL W IVCON Normal [facility] CT BRAIN WO IVCONon 01-06-20 CT BRAIN WO IVCON Normal [facility] CT CERVICAL SPINE WO IVCONon 01-05-2021 CT CERVICAL SPINE WO IVCON Normal [facility] NURSING PROGon 01-05-2021 NURSING PROG Normal [facility] NURSING PROG Normal [facility] NURSING PROG Normal [facility] NURSING PROG Normal [facility] NURSING PROG Normal [facility] PROCALCITONIN (LAB)on 2020 Procalcitonin [Mass/Vol] 3.59 ng/mL High <0.09 [facility] Comment on above: Order Comment: Speci men Type: BLOOD SPECIMEN Result Comment: For a guided interpretation of test results, please visit the Change in Procalcitonin Calculator, [email or web address]. Performed By: #### P ROCAL ####[facility] LABORATORYCLIA [id number] [place] [address] THERAPY NTon 01-05-2021 THERAPY NT Normal [facility] XR CHEST 1V FRONTAL PORTon 0 01-05-2021 XR CHEST 1V FRONTAL PORT Normal [facility] ALLIED HEALTHon 01-04-2021 ALLIED HEALTH Normal [facility] Basic metabolic 2000 panelon 01-04-2021 Anion gap [Moles/Vol] 8 mmol/L Low 9-18 [facility] Comment on above: Order Comment: Speci men Type: BLOOD SPECIMEN Performed By: #### 1 9123-9, 2776-08, , 1987-12 ####[facility]ORATORYCLIA [id number] [place] [address] Calcium [Mass/Vol] 8.5 mg/dL Normal 8.5-10.2 [facility] Comment on above: Order Comment: Speci men Type: BLOOD SPECIMEN Performed By: #### 1 9123-9, 2776-08, , 1987-12 ####[facility]ORATORYCLIA [id number] [place] [address] Chloride [Moles/Vol] 107 mmol/L High 97-105 [facility] Comment on above: Order Comment: Speci men Type: BLOOD SPECIMEN Performed By: #### 1 9123-9, 2776-08, , 1987-12 ####[facility]ORATORYCLIA [id number] [place] [address] CO2 [Moles/Vol] 23 mmol/L Normal 22-30 [facility] Comment on above: Order Comment: Speci men Type: BLOOD SPECIMEN Performed By: #### 1 9123-9, 2776-08, , 1987-12 ####[facility]ORATORYCLIA [id number] [place] [address] Creatinine [Mass/Vol] 0.91 mg/dL Normal 0.58-0.96 [facility] Comment on above: Order Comment: Speci men Type: BLOOD SPECIMEN Performed By: #### 1 9123-9, 2777-1, , 1987-12 ####[facility]ORATORYCLIA [id number] [place] [address] GFR/1.73 sq M.predicted MDRD (S/P/Bld) [Vol rate/Area] mL/min/{1.73_m2} Normal [facility] Comment on above: Order Comment: [...] By: #### 1 9123-9, 27702-15, , 1987-12 ####[facility] ASSOCIATIONIA [id number] [place] [address] Glucose [Mass/Vol] 128 mg/dL High 74-99 [facility] Comment on above: Order Comment: Speci [facility] Type: BLOOD SPECIMEN Result Comment: The [place] Diabetes Association (ADA) provides guidance for cutoff [...] Standards of Medical Care in Diabetes 2016, [place] [employer]. Diabetes Care. 2016.39(Suppl 1). Performed By: #### 1 9123-9, 277-, , 1987-12 ####[facility] LABORATORYCLIA [id number] [place] [address] Potassium [Moles/Vol] 3.7 mmol/L Normal 3.7-5.1 [facility] Comment on above: Order Comment: Speci men Type: BLOOD SPECIMEN Performed By: #### 1 9123-9, 2776-08, , 1987-12 ####[facility]ORATORYCLIA [id number] [place] [address] Sodium [Moles/Vol] 138 mmol/L Normal 136-144 [facility] Comment on above: Order Comment: Speci men Type: BLOOD SPECIMEN Performed By: #### 1 9123-9, 2776-08, , 1987-12 ####[facility]ORATORYCLIA [id number] [place] [address] Urea nitrogen [Mass/Vol] 34 mg/dL High 7-21 [facility] Comment on above: Order Comment: Speci men Type: BLOOD SPECIMEN Performed By: #### 1 9123-9, 27702-15, , 1987-12 ####[facility]ORATORYCLIA [id number] [place] [address] CALCIUM IONIZED Bon 01-05-20 Calcium.ionized (BldV) [Mass/Vol] 1.25 mmol/L Normal 1.08-1.30 [facility] Comment on above: Order Comment: Speci men Type: BLOOD SPECIMEN Performed By: #### I CA ####[facility]ORATORYCLIA [id number] [place] [address] Calcium.ionized adjusted to pH 7.4 (Bld) [Moles/Vol] 1.19 mmol/L Normal 1.08-1.30 [facility] Comment on above: Order Comment: Speci men Type: BLOOD SPECIMEN Performed By: #### I CA ####[facility]ORATORYCLIA [id number] [place] [address] CASE MANAGEMon 01-04-2021 CASE MANAGEM Normal [facility] CBC panel Auto (Bld)on 01-04 Erythrocyte distribution width (RBC) [Ratio] 16.8 % High 11.5-15.0 [facility] Comment on above: Order Comment: Speci men Type: BLOOD SPECIMEN Performed By: #### 5 8410-2 ####[facility]ORATORYCLIA [id number] [place] [address] Hematocrit (Bld) [Volume fraction] 36.8 % Normal 36.0-46.0 [facility] Comment on above: Order Comment: Speci men Type: BLOOD SPECIMEN Performed By: #### 5 8410-2 ####[facility]ORATORYCLIA [id number] [place] [address] Hemoglobin (Bld) [Mass/Vol] 11.7 g/dL Normal 11.5-15.5 [facility] Comment on above: Order Comment: Speci men Type: BLOOD SPECIMEN Performed By: #### 5 8410-2 ####[facility]ORATORYCLIA [id number] [place] [address] MCH (RBC) [Entitic mass] 28.4 pg Normal 26.0-34.0 [facility] Comment on above: Order Comment: Speci men Type: BLOOD SPECIMEN Performed By: #### 5 8410-2 ####[facility]ORATORYCLIA [id number] [place] [address] MCHC (RBC) [Mass/Vol] 31.8 g/dL Normal 30.5-36.0 [facility] Comment on above: Order Comment: Speci men Type: BLOOD SPECIMEN Performed By: #### 5 8410-2 ####[facility]ORATORYCLIA [id number] [place] [address] MCV (RBC) [Entitic vol] 89.3 fL Normal 80.0-100.0 [facility] Comment on above: Order Comment: Speci men Type: BLOOD SPECIMEN Performed By: #### 5 8410-2 ####[facility]ORATORYCLIA [id number] [place] [address] Nucleated RBC (Bld) [#/Vol] 0.02 10*3/uL High <0.01 [facility] Comment on above: Order Comment: Speci men Type: BLOOD SPECIMEN Performed By: #### 5 8410-2 ####[facility]ORATORYCLIA [id number] [place] [address] Platelet mean volume (Bld) [Entitic vol] 10.9 fL Normal 9.0-12.7 [facility] Comment on above: Order Comment: Speci men Type: BLOOD SPECIMEN Performed By: #### 5 8410-2 ####[facility]ORATORYCLIA [id number] [place] [address] Platelets (Bld) [#/Vol] 432 10*3/uL High 150-400 [facility] Comment on above: Order Comment: Speci men Type: BLOOD SPECIMEN Performed By: #### 5 8410-2 ####[facility]ORATORYCLIA [id number] [place] [address] RBC (Bld) [#/Vol] 4.12 10*6/uL Normal 3.90-5.20 [facility] Comment on above: Order Comment: Speci men Type: BLOOD SPECIMEN Performed By: #### 5 8410-2 ####[facility]ORATORYCLIA [id number] [place] [address] WBC (Bld) [#/Vol] 17.90 10*3/uL High 3.70-11.00 [facility] Comment on above: Order Comment: Speci men Type: BLOOD SPECIMEN Performed By: #### 5 8410-2 ####[facility]ORATORYCLIA [id number] [place] [address] CONSULT PROGon 01-04-2021 CONSULT PROG Normal [facility] CRP SerPl-mCncon 01-04-2021 CRP [Mass/Vol] 10.1 mg/dL High <0.9 [facility] Comment on above: Order Comment: Speci men Type: BLOOD SPECIMEN Performed By: #### 1 9123-9, 2777-1, , 1987-12 ####[facility]ORATORYCLIA [id number] [place] [address] Magnesium SerPl-mCncon 01-04 Magnesium [Mass/Vol] 2.1 mg/dL Normal 1.7-2.3 [facility] Comment on above: Order Comment: Speci men Type: BLOOD SPECIMEN Performed By: #### 1 9123-9, 27702-15, , 1987-12 ####[facility]ORATORYCLIA [id number] [place] [address] NURSING PROGon 01-04-2021 NURSING PROG Normal [facility] NURSING PROG Normal [facility] NURSING PROG Normal [facility] NURSING PROG Normal [facility] NUTRITIONon 01-04-2021 NUTRITION Normal [facility] Phosphate SerPl-mCncon 01-04 Phosphate [Mass/Vol] 3.5 mg/dL Normal 2.7-4.8 [facility] Comment on above: Order Comment: Speci men Type: BLOOD SPECIMEN Performed By: #### 1 9123-9, 27702-15, , 1987-12 ####[facility]ORATORYCLIA [id number] [place] [address] Prealbumin [Mass/Vol]on 12-17 Prealbumin Nephelometry [Mass/Vol] 20 mg/dL Normal [facility] Comment on above: Order Comment: Speci men Type: BLOOD SPECIMEN Performed By: #### 1 4338-8 ####[facility]ORATORYCLIA [id number] [place] [address] XR ABDOMEN 1V SUPINEon 01-04 XR ABDOMEN 1V SUPINE Normal [facility] ALLIED HEALTHon 01-03-2021 ALLIED HEALTH Normal [facility] ALLIED HEALTH Normal [facility] ARTERIAL BLOOD GASESon 01-03 Base excess Calc (Bld) [Moles/Vol] 4 mmol/L High 0-2 [facility] Comment on above: Order Comment: Speci men Type: ARTERIAL BLOOD SPECIMEN Performed By: #### A LLBG ####[facility]ORYCLIA [id number] [place] [address] Body temperature 97.7 [degF] Normal [facility] Comment on above: Order Comment: Speci men Type: ARTERIAL BLOOD SPECIMEN Performed By: #### A LLBG ####[facility]ORATORYCLIA [id number] [place] [address] CALCIUM IONIZED, PH CORRECTED 1.21 mmol/L Normal 1.08-1.30 [facility] Comment on above: Order Comment: Speci men Type: ARTERIAL BLOOD SPECIMEN Performed By: #### A LLBG ####[facility]ORYCLIA [id number] [place] [address] Calcium.ionized (BldV) [Mass/Vol] 1.20 mmol/L Normal 1.08-1.30 [facility] Comment on above: Order Comment: Speci men Type: ARTERIAL BLOOD SPECIMEN Performed By: #### A LLBG ####[facility]ORATORYCLIA [id number] [place] [address] Carboxyhemoglobin (BldA) [Mass fraction] <1.0 Normal 0.0-2.0 [facility] Comment on above: Order Comment: Speci men Type: ARTERIAL BLOOD SPECIMEN Result Comment: Carb oxyhemoglobin Reference Range for Smokers: 2.0-8.0% Performed By: #### A LLBG ####[facility]ORYCLIA [id number] [place] [address] CO2 (Bld) [Partial pressure] 47 mm Hg High 36-46 [facility] Comment on above: Order Comment: Speci men Type: ARTERIAL BLOOD SPECIMEN Performed By: #### A LLBG ####[facility]ORYCLIA [id number] [place] [address] CO2 [Moles/Vol] 26.1 mmol/L Normal 22-28 [facility] Comment on above: Order Comment: Speci men Type: ARTERIAL BLOOD SPECIMEN Performed By: #### A LLBG ####[facility]ATORYCLIA [id number] [place] [address] CO2 adjusted to patient's actual temperature (Bld) [Partial pressure] 46 mmHg Normal 36-46 [facility] Comment on above: Order Comment: Speci men Type: ARTERIAL BLOOD SPECIMEN Performed By: #### A LLBG ####[facility]ATORYCLIA [id number] [place] [address] Glucose [Mass/Vol] 209 mg/dL High 60-105 [facility] Comment on above: Order Comment: Speci men Type: ARTERIAL BLOOD SPECIMEN Performed By: #### A LLBG ####[facility]ORYCLIA [id number] [place] [address] HCO3 (Bld) [Moles/Vol] 29 mmol/L High 22-26 [facility] Comment on above: Order Comment: Speci men Type: ARTERIAL BLOOD SPECIMEN Performed By: #### A LLBG ####[facility]ORYCLIA [id number] [place] [address] Hematocrit (Bld) [Volume fraction] 39.2 % Normal 36.0-46.0 [facility] Comment on above: Order Comment: Speci men Type: ARTERIAL BLOOD SPECIMEN Performed By: #### A LLBG ####[facility]ORYCLIA [id number] [place] [address] Hemoglobin (Bld) [Mass/Vol] 12.8 g/dL Normal 11.5-15.5 [facility] Comment on above: Order Comment: Speci men Type: ARTERIAL BLOOD SPECIMEN Performed By: #### A LLBG ####[facility]ATORYCLIA [id number] [place] [address] Methemoglobin (Bld) [Mass fraction] % Normal 0.0-1.5 [facility] Comment on above: Order Comment: Speci men Type: ARTERIAL BLOOD SPECIMEN Performed By: #### A LLBG ####[facility]ATORYCLIA [id number] [place] [address] O2 THERAPY Hi-Flow Normal [facility] Comment on above: Order Comment: Speci men Type: ARTERIAL BLOOD SPECIMEN Performed By: #### A LLBG ####[facility]ATORYCLIA [id number] [place] [address] Oxygen (Bld) [Partial pressure] 121 mm Hg High 85-95 [facility] Comment on above: Order Comment: Speci men Type: ARTERIAL BLOOD SPECIMEN Performed By: #### A LLBG ####[facility]ATORYCLIA [id number] [place] [address] Oxygen adjusted to patient's actual temperature (Bld) [Partial pressure] 118 mmHg High 85-95 [facility] Comment on above: Order Comment: Speci men Type: ARTERIAL BLOOD SPECIMEN Performed By: #### A LLBG ####[facility]ATORYCLIA [id number] [place] [address] OXYGEN SATURATION, ARTERIAL 98 % Normal 95-98 [facility] Comment on above: Order Comment: Speci men Type: ARTERIAL BLOOD SPECIMEN Performed By: #### A LLBG ####[facility]ATORYCLIA [id number] [place] [address] Oxyhemoglobin (BldA) [Mass fraction] 97 % Normal 95-98 [facility] Comment on above: Order Comment: Speci men Type: ARTERIAL BLOOD SPECIMEN Performed By: #### A LLBG ####[facility]ATORYCLIA [id number] [place] [address] pH (Bld) 7.41 [pH] Normal 7.35-7.45 [facility] Comment on above: Order Comment: Speci men Type: ARTERIAL BLOOD SPECIMEN Performed By: #### A LLBG ####[facility]ATORYCLIA [id number] [place] [address] pH adjusted to patient's actual temperature (Bld) 7.42 Normal 7.35-7.45 [facility] Comment on above: Order Comment: Speci men Type: ARTERIAL BLOOD SPECIMEN Performed By: #### A LLBG ####[facility]ATORYCLIA [id number] [place] [address] Potassium [Moles/Vol] 4.1 mmol/L Normal 3.5-5.0 [facility] Comment on above: Order Comment: Speci men Type: ARTERIAL BLOOD SPECIMEN Performed By: #### A LLBG ####[facility]ORYCLIA [id number] [place] [address] Sodium [Moles/Vol] 140 mmol/L Normal 136-144 [facility] Comment on above: Order Comment: Speci men Type: ARTERIAL BLOOD SPECIMEN Performed By: #### A LLBG ####[facility]ATORYCLIA [id number] [place] [address] Basic metabolic 2000 panelon 01-03-2021 Anion gap [Moles/Vol] 9 mmol/L Normal 9-18 [facility] Comment on above: Order Comment: Speci men Type: BLOOD SPECIMEN Performed By: #### 1 9123-9, 2776-08, ####[facility]ORYCLIA [id number] [place] [address] Calcium [Mass/Vol] 8.9 mg/dL Normal 8.5-10.2 [facility] Comment on above: Order Comment: Speci men Type: BLOOD SPECIMEN Performed By: #### 1 9123-9, 2776-08, ####[facility]ORYCLIA [id number] [place] [address] Chloride [Moles/Vol] 102 mmol/L Normal 97-105 [facility] Comment on above: Order Comment: Speci men Type: BLOOD SPECIMEN Performed By: #### 1 9123-9, 2776-08, ####[facility]ATORYCLIA [id number] [place] [address] CO2 [Moles/Vol] 30 mmol/L Normal 22-30 [facility] Comment on above: Order Comment: Speci men Type: BLOOD SPECIMEN Performed By: #### 1 9123-9, 2776-08, ####[facility] LABORATORYCLIA [id number] [place] [address] Creatinine [Mass/Vol] 0.99 mg/dL High 0.58-0.96 [facility] Comment on above: Order Comment: Speci [facility] Type: BLOOD SPECIMEN Performed By: #### 1 9123-9, 2777-1, 07209-4 ####ST. [facility]ORYCLIA [id number] [place] [address] GFR/1.73 sq M.predicted MDRD (S/P/Bld) [Vol rate/Area] mL/min/{1.73_m2} Normal [facility] Comment on above: Order Comment: [...] GFR. Performed By: #### 1 9123-9, 2777-1, 13478-1 ####[facility]ORYCLIA [id number] [place] [address] Glucose [Mass/Vol] 183 mg/dL High 74-99 [facility] Comment on above: Order Comment: [facility] Type: BLOOD SPECIMEN Result Comment: The [place] [employer] Association (ADA) provides guidance for cutoff [...] Standards of Medical Care in Diabetes 2016, [place] [employer]. Diabetes Care. 2016.39(Suppl 1). Performed By: #### 1 9123-9, 2777-1, 06742-5 ####[facility]ORYCLIA [id number] [place] [address] Potassium [Moles/Vol] 4.0 mmol/L Normal 3.7-5.1 [facility] Comment on above: Order Comment: Speci men Type: BLOOD SPECIMEN Performed By: #### 1 9123-9, 2777-, 89187-6 ####[facility]ORYCLIA [id number] [place] [address] Sodium [Moles/Vol] 141 mmol/L Normal 136-144 [facility] Comment on above: Order Comment: Speci men Type: BLOOD SPECIMEN Performed By: #### 1 9123-9, 2777-, 12140-6 ####[facility]ORYCLIA [id number] [place] [address] Urea nitrogen [Mass/Vol] 35 mg/dL High 7-21 [facility] Comment on above: Order Comment: Speci men Type: BLOOD SPECIMEN Performed By: #### 1 9123-9, 2777-, 63815-0 ####[facility]ORYCL[facility] [id number] [place] [address] CALCIUM IONIZED Bon 01-04-20 Calcium.ionized (BldV) [Mass/Vol] 1.19 mmol/L Normal 1.08-1.30 [facility] Comment on above: Order Comment: Speci men Type: BLOOD SPECIMEN Performed By: #### I CA ####[facility]ORYCLIA [id number] [place] [address] Calcium.ionized adjusted to pH 7.4 (Bld) [Moles/Vol] 1.17 mmol/L Normal 1.08-1.30 [facility] Comment on above: Order Comment: Speci men Type: BLOOD SPECIMEN Performed By: #### I CA ####[facility]ORYCLIA [id number] [place] [address] CASE MANAGEMon 01-03-2021 CASE MANAGEM Normal [facility] CBC panel Auto (Bld)on 01-03 Erythrocyte distribution width (RBC) [Ratio] 16.1 % High 11.5-15.0 [facility] Comment on above: Order Comment: Speci men Type: BLOOD SPECIMEN Performed By: #### 5 8410-2 ####[facility]ORYCLIA [id number] [place] [address] Hematocrit (Bld) [Volume fraction] 38.5 % Normal 36.0-46.0 [facility] Comment on above: Order Comment: Speci men Type: BLOOD SPECIMEN Performed By: #### 5 8410-2 ####[facility]ORYCLIA [id number] [place] [address] Hemoglobin (Bld) [Mass/Vol] 12.3 g/dL Normal 11.5-15.5 [facility] Comment on above: Order Comment: Speci men Type: BLOOD SPECIMEN Performed By: #### 5 8410-2 ####[facility]ORYCLIA [id number] [place] [address] MCH (RBC) [Entitic mass] 28.3 pg Normal 26.0-34.0 [facility] Comment on above: Order Comment: Speci men Type: BLOOD SPECIMEN Performed By: #### 5 8410-2 ####[facility]ORYCLIA [id number] [place] [address] MCHC (RBC) [Mass/Vol] 31.9 g/dL Normal 30.5-36.0 [facility] Comment on above: Order Comment: Speci men Type: BLOOD SPECIMEN Performed By: #### 5 8410-2 ####[facility]ORYCLIA [id number] [place] [address] MCV (RBC) [Entitic vol] 88.7 fL Normal 80.0-100.0 [facility] Comment on above: Order Comment: Speci men Type: BLOOD SPECIMEN Performed By: #### 5 8410-2 ####[facility]ORYCLIA [id number] [place] [address] Nucleated RBC (Bld) [#/Vol] 0.02 10*3/uL High <0.01 [facility] Comment on above: Order Comment: Speci men Type: BLOOD SPECIMEN Performed By: #### 5 8410-2 ####[facility]ORYCLIA [id number] [place] [address] Platelet mean volume (Bld) [Entitic vol] 10.8 fL Normal 9.0-12.7 [facility] Comment on above: Order Comment: Speci men Type: BLOOD SPECIMEN Performed By: #### 5 8410-2 ####[facility]ORYCLIA [id number] [place] [address] Platelets (Bld) [#/Vol] 411 10*3/uL High 150-400 [facility] Comment on above: Order Comment: Speci men Type: BLOOD SPECIMEN Performed By: #### 5 8410-2 ####[facility]ORYCLIA [id number] [place] [address] RBC (Bld) [#/Vol] 4.34 10*6/uL Normal 3.90-5.20 [facility] Comment on above: Order Comment: Speci men Type: BLOOD SPECIMEN Performed By: #### 5 8410-2 ####[facility]ORYCLIA [id number] [place] [address] WBC (Bld) [#/Vol] 15.47 10*3/uL High 3.70-11.00 [facility] Comment on above: Order Comment: Speci men Type: BLOOD SPECIMEN Performed By: #### 5 8410-2 ####[facility]ATORYCLIA [id number] [place] [address] CONSULT PROGon 01-03-2021 CONSULT PROG Normal [facility] Magnesium SerPl-mCncon 01-03 Magnesium [Mass/Vol] 2.3 mg/dL Normal 1.7-2.3 [facility] Comment on above: Order Comment: Speci men Type: BLOOD SPECIMEN Performed By: #### 1 9123-9, 2777-1, 09908-9 ####[facility]ATORYCLIA [id number] [place] [address] NURSING PROGon 01-03-2021 NURSING PROG Normal [facility] Phosphate SerPl-mCncon 01-03 Phosphate [Mass/Vol] 4.3 mg/dL Normal 2.7-4.8 [facility] Comment on above: Order Comment: Speci men Type: BLOOD SPECIMEN Performed By: #### 1 9123-9, 2777-1, 13766-0 ####[facility]ORYCLIA [id number] [place] [address] THERAPY NTon 01-03-2021 THERAPY NT Normal [facility] XR CHEST 1V FRONTALon 2020 XR CHEST 1V FRONTAL Normal [facility] XR PELVIS 1V APon 01-03-2021 XR PELVIS 1V AP Normal [facility] ALLIED HEALTHon 01-02-2021 ALLIED HEALTH Normal [facility] ALLIED HEALTH Normal [facility] ALLIED HEALTH Normal [facility] Basic metabolic 2000 panelon 01-02-2021 Anion gap [Moles/Vol] 8 mmol/L Low -18 [facility] Comment on above: Order Comment: Speci men Type: BLOOD SPECIMEN Performed By: #### 2 4321-2, 2776-08, ####[facility]ORYCLIA [id number] [place] [address] Calcium [Mass/Vol] 8.7 mg/dL Normal 8.5-10.2 [facility] Comment on above: Order Comment: Speci men Type: BLOOD SPECIMEN Performed By: #### 2 4321-2, 2776-08, ####[facility]ORYCLIA [id number] [place] [address] Chloride [Moles/Vol] 104 mmol/L Normal 97-105 [facility] Comment on above: Order Comment: Speci men Type: BLOOD SPECIMEN Performed By: #### 2 4321-2, 2776-, ####[facility]ORYCLIA [id number] [place] [address] CO2 [Moles/Vol] 26 mmol/L Normal 22-30 [facility] Comment on above: Order Comment: Speci men Type: BLOOD SPECIMEN Performed By: #### 2 4321-2, 2776-, ####[facility]ORYCLIA [id number] [place] [address] Creatinine [Mass/Vol] 0.82 mg/dL Normal 0.58-0.96 [facility] Comment on above: Order Comment: [facility] Type: BLOOD SPECIMEN Performed By: #### 2 4321-2, 277-, ####[facility]ORYCLIA [id number] [place] [address] GFR/1.73 sq M.predicted MDRD (S/P/Bld) [Vol rate/Area] mL/min/{1.73_m2} Normal [facility] Comment on above: Order Comment: [...] GFR. Performed By: #### 2 4321-2, 2777-, ####[facility]ORYCLIA [id number] [place] [address] Glucose [Mass/Vol] 139 mg/dL High 74-99 [facility] Comment on above: Order Comment: [facility] [place] Type: BLOOD SPECIMEN Result Comment: The [place] Diabetes Association (ADA) provides guidance for cutoff [...] Standards of Medical Care in Diabetes 2016, [place] [employer]. Diabetes Care. 2016.39(Suppl 1). Performed By: #### 2 4321-2, 7-, ####[facility]ATORYCLIA [id number] [place] [address] Potassium [Moles/Vol] 4.1 mmol/L Normal 3.7-5.1 [facility] Comment on above: Order Comment: Speci men Type: BLOOD SPECIMEN Performed By: #### 2 4321-2, 2776-08, ####[facility]ORYCLIA [id number] [place] [address] Sodium [Moles/Vol] 138 mmol/L Normal 136-144 [facility] Comment on above: Order Comment: Speci men Type: BLOOD SPECIMEN Performed By: #### 2 4321-2, 2776-08, ####[facility]ATORYCLIA [id number] [place] [address] Urea nitrogen [Mass/Vol] 26 mg/dL High 7-21 [facility] Comment on above: Order Comment: Speci men Type: BLOOD SPECIMEN Performed By: #### 2 4321-2, 2776-08, ####[facility]ORYCLIA [id number] [place] [address] CALCIUM IONIZED Bon 01-03-20 21 Calcium.ionized (BldV) [Mass/Vol] 1.22 mmol/L Normal 1.08-1.30 [facility] Comment on above: Order Comment: Speci men Type: BLOOD SPECIMEN Performed By: #### I CA ####[facility]ATORYCLIA [id number] [place] [address] Calcium.ionized adjusted to pH 7.4 (Bld) [Moles/Vol] 1.22 mmol/L Normal 1.08-1.30 [facility] Comment on above: Order Comment: Speci men Type: BLOOD SPECIMEN Performed By: #### I CA ####[facility]ORYCLIA [id number] [place] [address] CASE MANAGEMon 01-02-2021 CASE MANAGEM Normal [facility] CBC panel Auto (Bld)on 01-02 Erythrocyte distribution width (RBC) [Ratio] 16.1 % High 11.5-15.0 [facility] Comment on above: Order Comment: Speci men Type: BLOOD SPECIMEN Performed By: #### 5 8410-2 ####[facility]ORYCLIA [id number] [place] [address] Hematocrit (Bld) [Volume fraction] 38.7 % Normal 36.0-46.0 [facility] Comment on above: Order Comment: Speci men Type: BLOOD SPECIMEN Performed By: #### 5 8410-2 ####[facility]ORYCLIA [id number] [place] [address] Hemoglobin (Bld) [Mass/Vol] 12.3 g/dL Normal 11.5-15.5 [facility] Comment on above: Order Comment: Speci men Type: BLOOD SPECIMEN Performed By: #### 5 8410-2 ####[facility]ORYCLIA [id number] [place] [address] MCH (RBC) [Entitic mass] 28.3 pg Normal 26.0-34.0 [facility] Comment on above: Order Comment: Speci men Type: BLOOD SPECIMEN Performed By: #### 5 8410-2 ####[facility]ORYCLIA [id number] [place] [address] MCHC (RBC) [Mass/Vol] 31.8 g/dL Normal 30.5-36.0 [facility] Comment on above: Order Comment: Speci men Type: BLOOD SPECIMEN Performed By: #### 5 8410-2 ####[facility]ORYCLIA [id number] [place] [address] MCV (RBC) [Entitic vol] 89.2 fL Normal 80.0-100.0 [facility] Comment on above: Order Comment: Speci men Type: BLOOD SPECIMEN Performed By: #### 5 8410-2 ####[facility]ORYCLIA [id number] [place] [address] Nucleated RBC (Bld) [#/Vol] 0.07 10*3/uL High <0.01 [facility] Comment on above: Order Comment: Speci men Type: BLOOD SPECIMEN Performed By: #### 5 8410-2 ####[facility]ORYCLIA [id number] [place] [address] Platelet mean volume (Bld) [Entitic vol] 10.7 fL Normal 9.0-12.7 [facility] Comment on above: Order Comment: Speci men Type: BLOOD SPECIMEN Performed By: #### 5 8410-2 ####[facility]ORYCLIA [id number] [place] [address] Platelets (Bld) [#/Vol] 362 10*3/uL Normal 150-400 [facility] Comment on above: Order Comment: Speci men Type: BLOOD SPECIMEN Performed By: #### 5 8410-2 ####[facility]ORYCLIA [id number] [place] [address] RBC (Bld) [#/Vol] 4.34 10*6/uL Normal 3.90-5.20 [facility] Comment on above: Order Comment: Speci men Type: BLOOD SPECIMEN Performed By: #### 5 8410-2 ####[facility]ORYCLIA [id number] [place] [address] WBC (Bld) [#/Vol] 15.72 10*3/uL High 3.70-11.00 [facility] Comment on above: Order Comment: Speci men Type: BLOOD SPECIMEN Performed By: #### 5 8410-2 ####[facility]ORYCLIA [id number] [place] [address] CONSULT PROGon 01-02-2021 CONSULT PROG Normal [facility] Magnesium SerPl-mCncon 01-02 Magnesium [Mass/Vol] 2.3 mg/dL Normal 1.7-2.3 [facility] Comment on above: Order Comment: Speci men Type: BLOOD SPECIMEN Performed By: #### 2 4321-2, 2776-08, ####[facility]ATORYCLIA [id number] [place] [address] NUTRITIONon 01-02-2021 NUTRITION Normal [facility] Phosphate SerPl-mCncon 01-02 Phosphate [Mass/Vol] 3.5 mg/dL Normal 2.7-4.8 [facility] Comment on above: Order Comment: Speci men Type: BLOOD SPECIMEN Performed By: #### 2 1-2, 2776-08, ####[facility]ATORYCLIA [id number] [place] [address] XR ABDOMEN 1V SUPINEon 01-02 XR ABDOMEN 1V SUPINE Normal [facility] XR ABDOMEN 1V SUPINE Normal [facility] XR CHEST 1V FRONTALon 2020 XR CHEST 1V FRONTAL Normal [facility] ALLIED HEALTHon 01-01-2021 ALLIED HEALTH Normal [facility] ALLIED HEALTH Normal [facility] Basic metabolic 2000 panelon 01-01-2021 Anion gap [Moles/Vol] 8 mmol/L Low 9-18 [facility] Comment on above: Order Comment: Speci men Type: BLOOD SPECIMEN Performed By: #### 2 1-2, 1987-12, , 2776-08 ####[facility]ATORYCLIA [id number] [place] [address] Calcium [Mass/Vol] 8.2 mg/dL Low 8.5-10.2 [facility] Comment on above: Order Comment: Speci men Type: BLOOD SPECIMEN Performed By: #### 2 4321-2, 1987-12, , 2776-08 ####[facility]ORYCLIA [id number] [place] [address] Chloride [Moles/Vol] 106 mmol/L High 97-105 [facility] Comment on above: Order Comment: Speci men Type: BLOOD SPECIMEN Performed By: #### 2 4320-, 1987-12, , 2776-08 ####[facility]ATORYCLIA [id number] [place] [address] CO2 [Moles/Vol] 27 mmol/L Normal 22-30 [facility] Comment on above: Order Comment: Speci men Type: BLOOD SPECIMEN Performed By: #### 2 4320-, 1987-12, , 2776-08 ####[facility]ORYCLIA [id number] [place] [address] Creatinine [Mass/Vol] 0.93 mg/dL Normal 0.58-0.96 [facility] Comment on above: Order Comment: Speci men Type: BLOOD SPECIMEN Performed By: #### 2 4320-, 1987-12, , 2776-08 ####[facility]ORYCLIA [id number] [place] [address] GFR/1.73 sq M.predicted MDRD (S/P/Bld) [Vol rate/Area] mL/min/{1.73_m2} Normal [facility] Comment on above: Order Comment: [...] By: #### 2 4320-2, 1987-12, , 2776-08 ####[facility]ATORYCLIA [id number] [place] [address] Glucose [Mass/Vol] 135 mg/dL High 74-99 [facility] Comment on above: Order Comment: Speci men Type: BLOOD SPECIMEN Result Comment: The [place] Diabetes Association (ADA) provides guidance for cutoff [...] Standards of Medical Care in Diabetes 2016, [place] [employer]. Diabetes Care. 2016.39(Suppl 1). Performed By: #### 2 4320-09, 1987-12, , 2776-08 ####[facility]ATORYCLIA [id number] [place] [address] Potassium [Moles/Vol] 3.9 mmol/L Normal 3.7-5.1 [facility] Comment on above: Order Comment: Speci men Type: BLOOD SPECIMEN Performed By: #### 2 4320-09, 1987-12, , 2776-08 ####[facility]ORYCLIA [id number] [place] [address] Sodium [Moles/Vol] 141 mmol/L Normal 136-144 [facility] Comment on above: Order Comment: Speci men Type: BLOOD SPECIMEN Performed By: #### 2 4320-09, 1987-12, , 2776-08 ####[facility]ORYCLIA [id number] [place] [address] Urea nitrogen [Mass/Vol] 41 mg/dL High 7-21 [facility] Comment on above: Order Comment: Speci men Type: BLOOD SPECIMEN Performed By: #### 2 4320-09, 1987-12, , 2776-08 ####[facility]ORYCLIA [id number] [place] [address] CALCIUM IONIZED Bon 05-17-20 21 Calcium.ionized (BldV) [Mass/Vol] 1.16 mmol/L Normal 1.08-1.30 [facility] Comment on above: Order Comment: Speci men Type: BLOOD SPECIMEN Performed By: #### I CA ####[facility]ORYCLIA [id number] [place] [address] Calcium.ionized adjusted to pH 7.4 (Bld) [Moles/Vol] 1.15 mmol/L Normal 1.08-1.30 [facility] Comment on above: Order Comment: Speci men Type: BLOOD SPECIMEN Performed By: #### I CA ####[facility]ORYCLIA [id number] [place] [address] CASE MANAGEMon 01-01-2021 CASE MANAGEM Normal [facility] CBC panel Auto (Bld)on 01-01 Erythrocyte distribution width (RBC) [Ratio] 16.3 % High 11.5-15.0 [facility] Comment on above: Order Comment: Speci men Type: BLOOD SPECIMEN Performed By: #### 5 8410-2 ####[facility]ORYCLIA [id number] [place] [address] Hematocrit (Bld) [Volume fraction] 36.8 % Normal 36.0-46.0 [facility] Comment on above: Order Comment: Speci men Type: BLOOD SPECIMEN Performed By: #### 5 8410-2 ####[facility]ORYCLIA [id number] [place] [address] Hemoglobin (Bld) [Mass/Vol] 12.1 g/dL Normal 11.5-15.5 [facility] Comment on above: Order Comment: Speci men Type: BLOOD SPECIMEN Performed By: #### 5 8410-2 ####[facility]ORYCLIA [id number] [place] [address] MCH (RBC) [Entitic mass] 28.9 pg Normal 26.0-34.0 [facility] Comment on above: Order Comment: Speci men Type: BLOOD SPECIMEN Performed By: #### 5 8410-2 ####[facility]ORYCLIA [id number] [place] [address] MCHC (RBC) [Mass/Vol] 32.9 g/dL Normal 30.5-36.0 [facility] Comment on above: Order Comment: Speci men Type: BLOOD SPECIMEN Performed By: #### 5 8410-2 ####[facility]ORYCLIA [id number] [place] [address] MCV (RBC) [Entitic vol] 87.8 fL Normal 80.0-100.0 [facility] Comment on above: Order Comment: Speci men Type: BLOOD SPECIMEN Performed By: #### 5 8410-2 ####[facility]ORYCLIA [id number] [place] [address] Nucleated RBC (Bld) [#/Vol] 0.18 10*3/uL High <0.01 [facility] Comment on above: Order Comment: Speci men Type: BLOOD SPECIMEN Performed By: #### 5 8410-2 ####[facility]ORYCLIA [id number] [place] [address] Platelet mean volume (Bld) [Entitic vol] 11.0 fL Normal 9.0-12.7 [facility] Comment on above: Order Comment: Speci men Type: BLOOD SPECIMEN Performed By: #### 5 8410-2 ####[facility]ORYCLIA [id number] [place] [address] Platelets (Bld) [#/Vol] 292 10*3/uL Normal 150-400 [facility] Comment on above: Order Comment: Speci men Type: BLOOD SPECIMEN Performed By: #### 5 8410-2 ####[facility]ORYCLIA [id number] [place] [address] RBC (Bld) [#/Vol] 4.19 10*6/uL Normal 3.90-5.20 [facility] Comment on above: Order Comment: Speci men Type: BLOOD SPECIMEN Performed By: #### 5 8410-2 ####[facility]ORYCLIA [id number] [place] [address] WBC (Bld) [#/Vol] 16.03 10*3/uL High 3.70-11.00 [facility] Comment on above: Order Comment: Speci men Type: BLOOD SPECIMEN Performed By: #### 5 8410-2 ####[facility]ORYCLIA [id number] [place] [address] CONSULT PROGon 01-01-2021 CONSULT PROG Normal [facility] CRP SerPl-ncon 01-01-2021 CRP [Mass/Vol] 20.0 mg/dL High <0.9 [facility] Comment on above: Order Comment: Speci men Type: BLOOD SPECIMEN Performed By: #### 2 4320-2, 1987-12, , 2776-08 ####[facility]ORYCLIA [id number] [place] [address] Magnesium SerPl-mCncon 01-01 Magnesium [Mass/Vol] 2.1 mg/dL Normal 1.7-2.3 [facility] Comment on above: Order Comment: Speci men Type: BLOOD SPECIMEN Performed By: #### 2 4320-09, 1987-12, , 2776-08 ####[facility]ORYCLIA [id number] [place] [address] NURSING PROGon 01-01-2021 NURSING PROG Normal [facility] PROCALCITONIN (LAB)on 2020 Procalcitonin [Mass/Vol] 33.46 ng/mL High <0.09 [facility] Comment on above: Order Comment: Speci men Type: BLOOD SPECIMEN Result Comment: For a guided interpretation of test results, please visit the Change in Procalcitonin Calculator, [email or web address]. Performed By: #### P ROCAL ####[facility]ATORYCLIA [id number] [place] [address] Phosphate SerPl-mCncon 01-01 Phosphate [Mass/Vol] 3.5 mg/dL Normal 2.7-4.8 [facility] Comment on above: Order Comment: Speci men Type: BLOOD SPECIMEN Performed By: #### 2 4320-2, 1987-12, , 2776-08 ####[facility]ORYCLIA [id number] [place] [address] Prealbumin [Mass/Vol]on 12-16 Prealbumin Nephelometry [Mass/Vol] 13 mg/dL Low 17-36 [facility] Comment on above: Order Comment: Speci men Type: BLOOD SPECIMEN Performed By: #### 1 4338-8 ####[facility]ORYCLIA [id number] [place] [address] THERAPY NTon 01-01-2021 THERAPY NT Normal [facility] XR ABDOMEN 1V SUPINEon 01-01 XR ABDOMEN 1V SUPINE Normal [facility] XR CHEST 1V FRONTALon 2020 XR CHEST 1V FRONTAL Normal [facility] ALLIED HEALTHon 12-31-2020 ALLIED HEALTH Normal [facility] Basic metabolic 2000 panelon 12-31-2020 Anion gap [Moles/Vol] 8 mmol/L Low 9-18 [facility] Comment on above: Order Comment: Speci men Type: BLOOD SPECIMEN Performed By: #### 1 9123-9, 84404-8, 2776-08 ####[facility]ORYCLIA [id number] [place] [address] Calcium [Mass/Vol] 8.1 mg/dL Low 8.5-10.2 [facility] Comment on above: Order Comment: Speci men Type: BLOOD SPECIMEN Performed By: #### 1 9123-9, 31054-8, 2776-08 ####[facility]ORYCLIA [id number] [place] [address] Chloride [Moles/Vol] 105 mmol/L Normal 97-105 [facility] Comment on above: Order Comment: Speci men Type: BLOOD SPECIMEN Performed By: #### 1 9123-9, 99709-5, 2776-08 ####[facility]ORYCLIA [id number] [place] [address] CO2 [Moles/Vol] 29 mmol/L Normal 22-30 [facility] Comment on above: Order Comment: Speci men Type: BLOOD SPECIMEN Performed By: #### 1 9123-9, 68832-4, 2776-08 ####[facility]ORYCLIA [id number] [place] [address] Creatinine [Mass/Vol] 1.01 mg/dL High 0.58-0.96 [facility] Comment on above: Order Comment: [facility] [place] Type: BLOOD SPECIMEN Performed By: #### 1 9123-9, 89019-9, 2776-08 ####[facility]ORYCLIA [id number] [place] [address] GFR/1.73 sq M.predicted MDRD (S/P/Bld) [Vol rate/Area] mL/min/{1.73_m2} Normal [facility] Comment on above: Order Comment: [facility] Type: BLOOD SPECIMEN Result Comment: 55eG FR [...] actual GFR. Performed By: #### 1 9123-9, 82842-3, 2776-08 ####[facility]ORY[facility] [id number] [place] [address] Glucose [Mass/Vol] 131 mg/dL High 74-99 [facility] Comment on above: [facility] Comment: [facility] Type: BLOOD SPECIMEN Result Comment: The [place] [employer] (ADA) provides guidance for cutoff [...] Standards of Medical Care in Diabetes 2016, [place] [employer]. Diabetes Care. 2016.39(Suppl 1). Performed By: #### 1 9123-9, 99348-7, 7- ####[facility]ORY[facility] [id number] [place] [address] Potassium [Moles/Vol] 4.0 mmol/L Normal 3.7-5.1 [facility] Comment on above: Order Comment: Speci men Type: BLOOD SPECIMEN Performed By: #### 1 9123-9, 63822-1, 2776- ####[facility]ORYCL[facility] [id number] [place] [address] Sodium [Moles/Vol] 142 mmol/L Normal 136-144 [facility] Comment on above: Order Comment: Speci men Type: BLOOD SPECIMEN Performed By: #### 1 9123-9, 40079-4, 2776- ####[facility]ORY[facility] [id number] [place] [address] Urea nitrogen [Mass/Vol] 35 mg/dL High 7-21 [facility] Comment on above: Order Comment: Speci men Type: BLOOD SPECIMEN Performed By: #### 1 9123-9, 94253-9, 2776- ####[facility]ORYCL[facility] [id number] [place], [place] [address] CALCIUM IONIZED Bon 01-01-20 21 Calcium.ionized (BldV) [Mass/Vol] 1.12 mmol/L Normal 1.08-1.30 [facility] Comment on above: Order Comment: Speci men Type: BLOOD SPECIMEN Performed By: #### I CA ####[facility]ORYCLIA [id number] [place] [address] Calcium.ionized adjusted to pH 7.4 (Bld) [Moles/Vol] 1.11 mmol/L Normal 1.08-1.30 [facility] Comment on above: Order Comment: Speci men Type: BLOOD SPECIMEN Performed By: #### I CA ####[facility]ORYCLIA [id number] [place] [address] CBC panel Auto (Bld)on 12-31 Erythrocyte distribution width (RBC) [Ratio] 16.0 % High 11.5-15.0 [facility] Comment on above: Order Comment: Speci men Type: BLOOD SPECIMEN Performed By: #### 5 8410-2 ####[facility]ORYCLIA [id number] [place] [address] Hematocrit (Bld) [Volume fraction] 36.9 % Normal 36.0-46.0 [facility] Comment on above: Order Comment: Speci men Type: BLOOD SPECIMEN Performed By: #### 5 8410-2 ####[facility]ORYCLIA [id number] [place] [address] Hemoglobin (Bld) [Mass/Vol] 11.8 g/dL Normal 11.5-15.5 [facility] Comment on above: Order Comment: Speci men Type: BLOOD SPECIMEN Performed By: #### 5 8410-2 ####[facility]ORYCLIA [id number] [place] [address] MCH (RBC) [Entitic mass] 28.4 pg Normal 26.0-34.0 [facility] Comment on above: Order Comment: Speci men Type: BLOOD SPECIMEN Performed By: #### 5 8410-2 ####[facility]ORYCLIA [id number] [place] [address] MCHC (RBC) [Mass/Vol] 32.0 g/dL Normal 30.5-36.0 [facility] Comment on above: Order Comment: Speci men Type: BLOOD SPECIMEN Performed By: #### 5 8410-2 ####[facility]ORYCLIA [id number] [place] [address] MCV (RBC) [Entitic vol] 88.7 fL Normal 80.0-100.0 [facility] Comment on above: Order Comment: Speci men Type: BLOOD SPECIMEN Performed By: #### 5 8410-2 ####[facility]ORYCLIA [id number] [place] [address] Nucleated RBC (Bld) [#/Vol] 0.24 10*3/uL High <0.01 [facility] Comment on above: Order Comment: Speci men Type: BLOOD SPECIMEN Performed By: #### 5 8410-2 ####[facility]ORYCLIA [id number] [place] [address] Platelet mean volume (Bld) [Entitic vol] 10.6 fL Normal 9.0-12.7 [facility] Comment on above: Order Comment: Speci men Type: BLOOD SPECIMEN Performed By: #### 5 8410-2 ####[facility]ORYCLIA [id number] [place] [address] Platelets (Bld) [#/Vol] 268 10*3/uL Normal 150-400 [facility] Comment on above: Order Comment: Speci men Type: BLOOD SPECIMEN Performed By: #### 5 8410-2 ####[facility]ORYCLIA [id number] [place] [address] RBC (Bld) [#/Vol] 4.16 10*6/uL Normal 3.90-5.20 [facility] Comment on above: Order Comment: Speci men Type: BLOOD SPECIMEN Performed By: #### 5 8410-2 ####[facility]ORYCLIA [id number] [place] [address] WBC (Bld) [#/Vol] 11.34 10*3/uL High 3.70-11.00 [facility] Comment on above: Order Comment: Speci men Type: BLOOD SPECIMEN Performed By: #### 5 8410-2 ####[facility]ORYCLIA [id number] [place] [address] CONSULT PROGon 12-31-2020 CONSULT PROG Normal [facility] Magnesium SerPl-mCncon 12-31 Magnesium [Mass/Vol] 2.1 mg/dL Normal 1.7-2.3 [facility] Comment on above: Order Comment: Speci men Type: BLOOD SPECIMEN Performed By: #### 1 9123-9, 72735-0, 2776-08 ####[facility]ORYCLIA [id number] [place] [address] NURSING PROGon 12-31-2020 NURSING PROG Normal [facility] Phosphate SerPl-mCncon 12-31 Phosphate [Mass/Vol] 5.0 mg/dL High 2.7-4.8 [facility] Comment on above: Order Comment: Speci men Type: BLOOD SPECIMEN Performed By: #### 1 9123-9, 47402-9, 2776-08 ####[facility]ORYCLIA [id number] [place] [address] XR CHEST 1V FRONTALon 2020 XR CHEST 1V FRONTAL Normal [facility] ALLIED HEALTHon 12-30-2020 ALLIED HEALTH Normal [facility] ALLIED HEALTH Normal [facility] Basic metabolic 2000 panelon 12-30-2020 Anion gap [Moles/Vol] 9 mmol/L Normal 9-18 [facility] Comment on above: Order Comment: Speci men Type: BLOOD SPECIMEN Performed By: #### 2 777-1, , ####[facility]ORYCLIA [id number] [place] [address] Calcium [Mass/Vol] 7.8 mg/dL Low 8.5-10.2 [facility] Comment on above: Order Comment: Speci men Type: BLOOD SPECIMEN Performed By: #### 2 777-1, 87048-4, ####[facility]ORYCLIA [id number] [place] [address] Chloride [Moles/Vol] 107 mmol/L High 97-105 [facility] Comment on above: Order Comment: Speci men Type: BLOOD SPECIMEN Performed By: #### 2 777-1, 36141-8, ####[facility]ORYCLIA [id number] [place] [address] CO2 [Moles/Vol] 28 mmol/L Normal 22-30 [facility] Comment on above: Order Comment: Speci men Type: BLOOD SPECIMEN Performed By: #### 2 777-1, 73428-4, ####[facility]ORYCLIA [id number] [place] [address] Creatinine [Mass/Vol] 1.01 mg/dL High 0.58-0.96 [facility] Comment on above: Order Comment: [facility] Type: BLOOD SPECIMEN Performed By: #### 2 777-1, 62872-7, ####[facility]ATORYCLIA [id number] [place] [address] GFR/1.73 sq M.predicted MDRD (S/P/Bld) [Vol rate/Area] mL/min/{1.73_m2} Normal [facility] Comment on above: Order Comment: [facility] [place] Type: BLOOD SPECIMEN Result Comment: 55eG FR [...] actual GFR. Performed By: #### 2 777-1, 38036-0, ####[facility]ORYCLIA [id number] [place] [address] Glucose [Mass/Vol] 126 mg/dL High 74-99 [facility] Comment on above: Order Comment: [facility] [place] Type: BLOOD SPECIMEN Result Comment: The [place] [employer] (ADA) provides guidance for cutoff [...] Standards of Medical Care in Diabetes 2016, [place] [employer]. Diabetes Care. 2016.39(Suppl 1). Performed By: #### 2 777-1, 58992-9, ####[facility]ATORYCLIA [id number] [place] [address] Potassium [Moles/Vol] 3.6 mmol/L Low 3.7-5.1 [facility] Comment on above: Order Comment: Speci men Type: BLOOD SPECIMEN Performed By: #### 2 777-1, 69111-6, ####[facility]ATORYCLIA [id number] [place] [address] Sodium [Moles/Vol] 144 mmol/L Normal 136-144 [facility] Comment on above: Order Comment: Speci men Type: BLOOD SPECIMEN Performed By: #### 2 777-1, 70927-1, ####[facility]ATORYCLIA [id number] [place] [address] Urea nitrogen [Mass/Vol] 27 mg/dL High 7-21 [facility] Comment on above: Order Comment: Speci men Type: BLOOD SPECIMEN Performed By: #### 2 777-1, , ####[facility]ATORYCLIA [id number] [place] [address] CALCIUM IONIZED Bon 12-31-19 21 Calcium.ionized (BldV) [Mass/Vol] 1.11 mmol/L Normal 1.08-1.30 [facility] Comment on above: Order Comment: Speci men Type: BLOOD SPECIMEN Performed By: #### I CA ####[facility]ORYCLIA [id number] [place] [address] Calcium.ionized adjusted to pH 7.4 (Bld) [Moles/Vol] 1.10 mmol/L Normal 1.08-1.30 [facility] Comment on above: Order Comment: Speci men Type: BLOOD SPECIMEN Performed By: #### I CA ####[facility]ORYCLIA [id number] [place] [address] CBC panel Auto (Bld)on 12-30 Erythrocyte distribution width (RBC) [Ratio] 16.1 % High 11.5-15.0 [facility] Comment on above: Order Comment: Speci men Type: BLOOD SPECIMEN Performed By: #### 5 8410-2 ####[facility]ORYCLIA [id number] [place] [address] Hematocrit (Bld) [Volume fraction] 33.4 % Low 36.0-46.0 [facility] Comment on above: Order Comment: Speci men Type: BLOOD SPECIMEN Performed By: #### 5 8410-2 ####[facility]ORYCLIA [id number] [place] [address] Hemoglobin (Bld) [Mass/Vol] 10.9 g/dL Low 11.5-15.5 [facility] Comment on above: Order Comment: Speci men Type: BLOOD SPECIMEN Performed By: #### 5 8410-2 ####[facility]ORYCLIA [id number] [place] [address] MCH (RBC) [Entitic mass] 28.6 pg Normal 26.0-34.0 [facility] Comment on above: Order Comment: Speci men Type: BLOOD SPECIMEN Performed By: #### 5 8410-2 ####[facility]ORYCLIA [id number] [place] [address] MCHC (RBC) [Mass/Vol] 32.6 g/dL Normal 30.5-36.0 [facility] Comment on above: Order Comment: Speci men Type: BLOOD SPECIMEN Performed By: #### 5 8410-2 ####[facility]ORYCLIA [id number] [place] [address] MCV (RBC) [Entitic vol] 87.7 fL Normal 80.0-100.0 [facility] Comment on above: Order Comment: Speci men Type: BLOOD SPECIMEN Performed By: #### 5 8410-2 ####[facility]ORYCLIA [id number] [place] [address] Nucleated RBC (Bld) [#/Vol] 0.20 10*3/uL High <0.01 [facility] Comment on above: Order Comment: Speci men Type: BLOOD SPECIMEN Performed By: #### 5 8410-2 ####[facility]ORYCLIA [id number] [place] [address] Platelet mean volume (Bld) [Entitic vol] 10.5 fL Normal 9.0-12.7 [facility] Comment on above: Order Comment: Speci men Type: BLOOD SPECIMEN Performed By: #### 5 8410-2 ####[facility]ATORYCLIA [id number] [place] [address] Platelets (Bld) [#/Vol] 228 10*3/uL Normal 150-400 [facility] Comment on above: Order Comment: Speci men Type: BLOOD SPECIMEN Performed By: #### 5 8410-2 ####[facility]ORYCLIA [id number] [place] [address] RBC (Bld) [#/Vol] 3.81 10*6/uL Low 3.90-5.20 [facility] Comment on above: Order Comment: Speci men Type: BLOOD SPECIMEN Performed By: #### 5 8410-2 ####[facility]ORYCLIA [id number] [place] [address] WBC (Bld) [#/Vol] 6.13 10*3/uL Normal 3.70-11.00 [facility] Comment on above: Order Comment: Speci men Type: BLOOD SPECIMEN Performed By: #### 5 8410-2 ####[facility]ORYCLIA [id number] [place] [address] CONSULT PROGon 12-30-2020 CONSULT PROG Normal [facility] Magnesium SerPl-mCncon 12-30 Magnesium [Mass/Vol] 2.2 mg/dL Normal 1.7-2.3 [facility] Comment on above: Order Comment: Speci men Type: BLOOD SPECIMEN Performed By: #### 2 777-1, 68919-5, ####[facility]ORYCLIA [id number] [place] [address] NURSING PROGon 12-30-2020 NURSING PROG Normal [facility] Phosphate SerPl-mCncon 12-30 Phosphate [Mass/Vol] 4.5 mg/dL Normal 2.7-4.8 [facility] Comment on above: Order Comment: Speci men Type: BLOOD SPECIMEN Performed By: #### 2 777-1, 24827-8, ####[facility]ORYCLIA [id number] [place] [address] THERAPY NTon 12-30-2020 THERAPY NT Normal [facility] XR ABDOMEN 1V SUPINEon 12-30 XR ABDOMEN 1V SUPINE Normal [facility] XR CHEST 1V FRONTALon 2020 XR CHEST 1V FRONTAL Normal [facility] ALLIED HEALTHon 12-29-2020 ALLIED HEALTH Normal [facility] ALLIED HEALTH Normal [facility] ARTERIAL BLOOD GASESon 12-29 Base excess Calc (Bld) [Moles/Vol] 0 mmol/L Normal 0-2 [facility] Comment on above: Order Comment: Speci men Type: ARTERIAL BLOOD SPECIMEN Performed By: #### A LLBG ####[facility]ATORYCLIA [id number] [place] [address] Body temperature 100.04 [degF] Normal [facility] Comment on above: Order Comment: Speci men Type: ARTERIAL BLOOD SPECIMEN Performed By: #### A LLBG ####[facility]ORYCLIA [id number] [place] [address] CALCIUM IONIZED, PH CORRECTED 1.20 mmol/L Normal 1.08-1.30 [facility] Comment on above: Order Comment: Speci men Type: ARTERIAL BLOOD SPECIMEN Performed By: #### A LLBG ####[facility]ORYCLIA [id number] [place] [address] Calcium.ionized (BldV) [Mass/Vol] 1.19 mmol/L Normal 1.08-1.30 [facility] Comment on above: Order Comment: Speci men Type: ARTERIAL BLOOD SPECIMEN Performed By: #### A LLBG ####[facility]ORYCLIA [id number] [place] [address] Carboxyhemoglobin (BldA) [Mass fraction] 1.8 % Normal 0.0-2.0 [facility] Comment on above: Order Comment: Speci men Type: ARTERIAL BLOOD SPECIMEN Result Comment: Carb oxyhemoglobin Reference Range for Smokers: 2.0-8.0% Performed By: #### A LLBG ####[facility]ORYCLIA [id number] [place] [address] CO2 (Bld) [Partial pressure] 38 mm Hg Normal 36-46 [facility] Comment on above: Order Comment: Speci men Type: ARTERIAL BLOOD SPECIMEN Performed By: #### A LLBG ####[facility]ORYCLIA [id number] [place] [address] CO2 [Moles/Vol] 21.7 mmol/L Low 22-28 [facility] Comment on above: Order Comment: Speci men Type: ARTERIAL BLOOD SPECIMEN Performed By: #### A LLBG ####[facility]ORYCLIA [id number] [place] [address] CO2 adjusted to patient's actual temperature (Bld) [Partial pressure] 40 mmHg Normal 36-46 [facility] Comment on above: Order Comment: Speci men Type: ARTERIAL BLOOD SPECIMEN Performed By: #### A LLBG ####[facility]ORYCLIA [id number] [place] [address] Glucose [Mass/Vol] 115 mg/dL High 60-105 [facility] Comment on above: Order Comment: Speci men Type: ARTERIAL BLOOD SPECIMEN Performed By: #### A LLBG ####[facility]ORYCLIA [id number] [place] [address] HCO3 (Bld) [Moles/Vol] 24 mmol/L Normal 22-26 [facility] Comment on above: Order Comment: Speci men Type: ARTERIAL BLOOD SPECIMEN Performed By: #### A LLBG ####[facility]ORYCLIA [id number] [place] [address] Hematocrit (Bld) [Volume fraction] 36.1 % Normal 36.0-46.0 [facility] Comment on above: Order Comment: Speci men Type: ARTERIAL BLOOD SPECIMEN Performed By: #### A LLBG ####[facility]ORYCLIA [id number] [place] [address] Hemoglobin (Bld) [Mass/Vol] 11.7 g/dL Normal 11.5-15.5 [facility] Comment on above: Order Comment: Speci men Type: ARTERIAL BLOOD SPECIMEN Performed By: #### A LLBG ####[facility]ORYCLIA [id number] [place] [address] Methemoglobin (Bld) [Mass fraction] % Normal 0.0-1.5 [facility] Comment on above: Order Comment: Speci men Type: ARTERIAL BLOOD SPECIMEN Performed By: #### A LLBG ####[facility]ORYCLIA [id number] [place] [address] O2 THERAPY NC = Nasal Cannula Normal [facility] Comment on above: Order Comment: Speci men Type: ARTERIAL BLOOD SPECIMEN Performed By: #### A LLBG ####[facility]ORYCLIA [id number] [place] [address] Oxygen (Bld) [Partial pressure] 67 mm Hg Low 85-95 [facility] Comment on above: Order Comment: Speci men Type: ARTERIAL BLOOD SPECIMEN Performed By: #### A LLBG ####[facility]ORYCLIA [id number] [place] [address] Oxygen adjusted to patient's actual temperature (Bld) [Partial pressure] 70.0 mmHg Low 85-95 [facility] Comment on above: Order Comment: Speci men Type: ARTERIAL BLOOD SPECIMEN Performed By: #### A LLBG ####[facility]ORYCLIA [id number] [place] [address] OXYGEN SATURATION, ARTERIAL 94 % Low 95-98 [facility] Comment on above: Order Comment: Speci men Type: ARTERIAL BLOOD SPECIMEN Performed By: #### A LLBG ####[facility]ORYCLIA [id number] [place] [address] Oxyhemoglobin (BldA) [Mass fraction] 92 % Low 95-98 [facility] Comment on above: Order Comment: Speci men Type: ARTERIAL BLOOD SPECIMEN Performed By: #### A LLBG ####[facility]ORYCLIA [id number] [place] [address] pH (Bld) 7.41 [pH] Normal 7.35-7.45 [facility] Comment on above: Order Comment: Speci men Type: ARTERIAL BLOOD SPECIMEN Performed By: #### A LLBG ####[facility]ORYCLIA [id number] [place] [address] pH adjusted to patient's actual temperature (Bld) 7.40 Normal 7.35-7.45 [facility] Comment on above: Order Comment: Speci men Type: ARTERIAL BLOOD SPECIMEN Performed By: #### A LLBG ####[facility]ORYCLIA [id number] [place] [address] Potassium [Moles/Vol] 4.0 mmol/L Normal 3.5-5.0 [facility] Comment on above: Order Comment: Speci men Type: ARTERIAL BLOOD SPECIMEN Performed By: #### A LLBG ####[facility]ORYCLIA [id number] [place] [address] Sodium [Moles/Vol] 146 mmol/L High 136-144 [facility] Comment on above: Order Comment: Speci men Type: ARTERIAL BLOOD SPECIMEN Performed By: #### A LLBG ####[facility]ORYCLIA [id number] [place] [address] Bacteria Bld Culton 12-30-19 21 Bacteria identified Cx Nom (Bld) CULTURE, BLOOD: No growth 5 days Normal [facility] Comment on above: Performed By: #### 6 00-7 ####[facility]ORYCLIA [id number] [place] [address] Bacteria identified Cx Nom (Bld) CULTURE, BLOOD: No growth 5 days Normal [facility] Comment on above: Performed By: #### 6 00-7 ####[facility]ORYCLIA [id number] [place] [address] Basic metabolic 2000 panelon 12-29-2020 Anion gap [Moles/Vol] 7 mmol/L Low 9-18 [facility] Comment on above: Order Comment: Speci men Type: BLOOD SPECIMEN Performed By: #### 2 777-1, 51761-3, ####[facility]ORYCLIA [id number] [place] [address] Calcium [Mass/Vol] 7.7 mg/dL Low 8.5-10.2 [facility] Comment on above: Order Comment: Speci men Type: BLOOD SPECIMEN Performed By: #### 2 777-1, , ####[facility]ORYCLIA [id number] [place] [address] Chloride [Moles/Vol] 113 mmol/L High 97-105 [facility] Comment on above: Order Comment: Speci men Type: BLOOD SPECIMEN Performed By: #### 2 777-1, , ####[facility]ORYCLIA [id number] [place] [address] CO2 [Moles/Vol] 24 mmol/L Normal 22-30 [facility] Comment on above: Order Comment: Speci men Type: BLOOD SPECIMEN Performed By: #### 2 777-1, , ####[facility]ORYCLIA [id number] [place] [address] Creatinine [Mass/Vol] 0.84 mg/dL Normal 0.58-0.96 [facility] Comment on above: Order Comment: Speci men Type: BLOOD SPECIMEN Performed By: #### 2 777-1, , ####[facility]ORYCLIA [id number] [place] [address] GFR/1.73 sq M.predicted MDRD (S/P/Bld) [Vol rate/Area] mL/min/{1.73_m2} Normal [facility] Comment on above: Order Comment: [...] actual GFR. Performed By: #### 2 777-1, 39447-1, ####[facility]ORYCLIA [id number] [place] [address] Glucose [Mass/Vol] 117 mg/dL High 74-99 [facility] Comment on above: Order Comment: Speci men Type: BLOOD SPECIMEN Result Comment: The [place] [employer] (ADA) provides guidance for cutoff [...] Standards of Medical Care in Diabetes 2016, [place] [employer]. Diabetes Care. 2016.39(Suppl 1). Performed By: #### 2 777-1, 64632-2, ####[facility]ORYCLIA [id number] [place] [address] Potassium [Moles/Vol] 4.3 mmol/L Normal 3.7-5.1 [facility] Comment on above: Order Comment: Speci men Type: BLOOD SPECIMEN Performed By: #### 2 777-1, 10634-6, ####[facility]ATORYCLIA [id number] [place] [address] Sodium [Moles/Vol] 144 mmol/L Normal 136-144 [facility] Comment on above: Order Comment: Speci men Type: BLOOD SPECIMEN Performed By: #### 2 777-1, 37103-4, ####[facility]ORYCLIA [id number] [place] [address] Urea nitrogen [Mass/Vol] 22 mg/dL High 7-21 [facility] Comment on above: Order Comment: Speci men Type: BLOOD SPECIMEN Performed By: #### 2 777-1, 64357-6, ####[facility]ORYCLIA [id number] [place] [address] CALCIUM IONIZED Bon 12-30-19 Calcium.ionized (BldV) [Mass/Vol] 1.12 mmol/L Normal 1.08-1.30 [facility] Comment on above: Order Comment: Speci men Type: BLOOD SPECIMEN Performed By: #### I CA ####[facility]ORYCLIA [id number] [place] [address] Calcium.ionized adjusted to pH 7.4 (Bld) [Moles/Vol] 1.11 mmol/L Normal 1.08-1.30 [facility] Comment on above: Order Comment: Speci men Type: BLOOD SPECIMEN Performed By: #### I CA ####[facility]ORYCLIA [id number] [place] [address] CASE MANAGEMon 12-29-2020 CASE MANAGEM Normal [facility] CBC panel Auto (Bld)on 12-29 Erythrocyte distribution width (RBC) [Ratio] 16.9 % High 11.5-15.0 [facility] Comment on above: Order Comment: Speci men Type: BLOOD SPECIMEN Performed By: #### 5 8410-2 ####[facility]ORYCLIA [id number] [place] [address] Hematocrit (Bld) [Volume fraction] 35.5 % Low 36.0-46.0 [facility] Comment on above: Order Comment: Speci men Type: BLOOD SPECIMEN Performed By: #### 5 8410-2 ####[facility]ORYCLIA [id number] [place] [address] Hemoglobin (Bld) [Mass/Vol] 11.5 g/dL Normal 11.5-15.5 [facility] Comment on above: Order Comment: Speci men Type: BLOOD SPECIMEN Performed By: #### 5 8410-2 ####[facility]ORYCLIA [id number] [place] [address] MCH (RBC) [Entitic mass] 28.6 pg Normal 26.0-34.0 [facility] Comment on above: Order Comment: Speci men Type: BLOOD SPECIMEN Performed By: #### 5 8410-2 ####[facility]ORYCLIA [id number] [place] [address] MCHC (RBC) [Mass/Vol] 32.4 g/dL Normal 30.5-36.0 [facility] Comment on above: Order Comment: Speci men Type: BLOOD SPECIMEN Performed By: #### 5 8410-2 ####[facility]ORYCLIA [id number] [place] [address] MCV (RBC) [Entitic vol] 88.3 fL Normal 80.0-100.0 [facility] Comment on above: Order Comment: Speci men Type: BLOOD SPECIMEN Performed By: #### 5 8410-2 ####[facility]ORYCLIA [id number] [place] [address] Nucleated RBC (Bld) [#/Vol] 0.07 10*3/uL High <0.01 [facility] Comment on above: Order Comment: Speci men Type: BLOOD SPECIMEN Performed By: #### 5 8410-2 ####[facility]ORYCLIA [id number] [place] [address] Platelet mean volume (Bld) [Entitic vol] 10.8 fL Normal 9.0-12.7 [facility] Comment on above: Order Comment: Speci men Type: BLOOD SPECIMEN Performed By: #### 5 8410-2 ####[facility]ORYCLIA [id number] [place] [address] Platelets (Bld) [#/Vol] 225 10*3/uL Normal 150-400 [facility] Comment on above: Order Comment: Speci men Type: BLOOD SPECIMEN Performed By: #### 5 8410-2 ####[facility]ORYCLIA [id number] [place] [address] RBC (Bld) [#/Vol] 4.02 10*6/uL Normal 3.90-5.20 [facility] Comment on above: Order Comment: Speci men Type: BLOOD SPECIMEN Performed By: #### 5 8410-2 ####[facility]ORYCLIA [id number] [place] [address] WBC (Bld) [#/Vol] 4.58 10*3/uL Normal 3.70-11.00 [facility] Comment on above: Order Comment: Speci men Type: BLOOD SPECIMEN Performed By: #### 5 8410-2 ####[facility]ORYCL[facility] [id number] [place] [address] CONSULT PROGon 12-29-2020 CONSULT PROG Normal [facility] Gas and Carbon monoxide pane l (BldV)on 12-29-2020 Base excess Calc (BldV) [Moles/Vol] 0.0 mmol/L Normal 0-2 [facility] Comment on above: Order Comment: Speci men Type: VENOUS BLOOD SPECIMEN Performed By: #### 2 4344-4 ####[facility]ORYCL[facility] [id number] [place] [address] Body temperature 100.4 [degF] Normal [facility] Comment on above: Order Comment: Speci men Type: VENOUS BLOOD SPECIMEN Performed By: #### 2 4344-4 ####[facility]ORYCL[facility] [id number] [place] [address] CALCIUM IONIZED, PH CORRECTED 1.14 mmol/L Normal 1.08-1.30 [facility] Comment on above: Order Comment: Speci men Type: VENOUS BLOOD SPECIMEN Performed By: #### 2 4344-4 ####[facility]ORYCL[facility] [id number] [place] [address] Calcium.ionized (BldV) [Mass/Vol] 1.17 mmol/L Normal 1.08-1.30 [facility] Comment on above: Order Comment: Speci men Type: VENOUS BLOOD SPECIMEN Performed By: #### 2 4344-4 ####[facility]ATORYCLIA [id number] [place] [address] Carboxyhemoglobin (BldV) [Mass fraction] 1.6 % Normal 0.0-2.0 [facility] Comment on above: Order Comment: Speci men Type: VENOUS BLOOD SPECIMEN Result Comment: Carb oxyhemoglobin Reference Range for Smokers: 2.0-8.0% Performed By: #### 2 4344-4 ####[facility]ORATORYCLIA [id number] [place] [address] CO2 (BldV) [Partial pressure] 45 mm[Hg] Normal 42-55 [facility] Comment on above: Order Comment: Speci men Type: VENOUS BLOOD SPECIMEN Performed By: #### 2 4344-4 ####[facility]ORYCLIA [id number] [place] [address] CO2 [Moles/Vol] 22.9 mmol/L Low 25-29 [facility] Comment on above: Order Comment: Speci men Type: VENOUS BLOOD SPECIMEN Performed By: #### 2 4344-4 ####[facility]ORYCLIA [id number] [place] [address] CO2 adjusted to patient's actual temperature (BldV) [Partial pressure] 47 mmHg Normal 42-55 [facility] Comment on above: Order Comment: Speci men Type: VENOUS BLOOD SPECIMEN Performed By: #### 2 4344-4 ####[facility]ORYCLIA [id number] [place] [address] Glucose [Mass/Vol] 150 mg/dL High 60-105 [facility] Comment on above: Order Comment: Speci men Type: VENOUS BLOOD SPECIMEN Performed By: #### 2 4344-4 ####[facility]ORYCLIA [id number] [place] [address] HCO3 (Bld) [Moles/Vol] 25.1 mmol/L Normal 24-28 [facility] Comment on above: Order Comment: Speci men Type: VENOUS BLOOD SPECIMEN Performed By: #### 2 4344-4 ####[facility]ORYCLIA [id number] [place] [address] Hematocrit (Bld) [Volume fraction] 38.2 % Normal 36.0-46.0 [facility] Comment on above: Order Comment: Speci men Type: VENOUS BLOOD SPECIMEN Performed By: #### 2 4344-4 ####[facility]ORYCLIA [id number] [place] [address] Hemoglobin (Bld) [Mass/Vol] 12.4 g/dL Normal 11.5-15.5 [facility] Comment on above: Order Comment: Speci men Type: VENOUS BLOOD SPECIMEN Performed By: #### 2 4344-4 ####[facility] LABORATORYCLIA [id number] [place] [address] Methemoglobin (Bld) [Mass fraction] 1.0 % Normal 0.0-1.5 [facility] Comment on above: Order Comment: Speci men Type: VENOUS BLOOD SPECIMEN Performed By: #### 2 4344-4 ####[facility]ORYCLIA [id number] [place] [address] O2 THERAPY Positive Normal [facility] Comment on above: Order Comment: Speci men Type: VENOUS BLOOD SPECIMEN Performed By: #### 2 4344-4 ####[facility]ORYCLIA [id number] [place] [address] Oxygen (BldV) [Partial pressure] 48 mm[Hg] High 35-45 [facility] Comment on above: Order Comment: Speci men Type: VENOUS BLOOD SPECIMEN Performed By: #### 2 4344-4 ####[facility]ORYCLIA [id number] [place] [address] Oxygen adjusted to patient's actual temperature (BldV) [Partial pressure] 50.9 mmHg High 35-45 [facility] Comment on above: Order Comment: Speci men Type: VENOUS BLOOD SPECIMEN Performed By: #### 2 4344-4 ####[facility]ORYCLIA [id number] [place] [address] Oxygen saturation in Blood 81.1 % Normal 60-85 [facility] Comment on above: Order Comment: Speci men Type: VENOUS BLOOD SPECIMEN Performed By: #### 2 4344-4 ####[facility]ORYCLIA [id number] [place] [address] Oxyhemoglobin (BldV) [Mass fraction] 79 % Normal 60-85 [facility] Comment on above: Order Comment: Speci men Type: VENOUS BLOOD SPECIMEN Performed By: #### 2 4344-4 ####[facility]ORYCLIA [id number] [place] [address] pH (BldV) 7.36 [pH] Normal 7.32-7.42 [facility] Comment on above: Order Comment: Speci men Type: VENOUS BLOOD SPECIMEN Performed By: #### 2 4344-4 ####[facility]ORYCLIA [id number] [place] [address] pH adjusted to patient's actual temperature (BldV) 7.35 Normal 7.32-7.42 [facility] Comment on above: Order Comment: Speci men Type: VENOUS BLOOD SPECIMEN Performed By: #### 2 4344-4 ####[facility]ORYCLIA [id number] [place] [address] Potassium [Moles/Vol] 4.1 mmol/L Normal 3.5-5.0 [facility] Comment on above: Order Comment: Speci men Type: VENOUS BLOOD SPECIMEN Performed By: #### 2 4344-4 ####[facility]ORYCLIA [id number] [place] [address] Sodium [Moles/Vol] 144 mmol/L Normal 136-144 [facility] Comment on above: Order Comment: Speci men Type: VENOUS BLOOD SPECIMEN Performed By: #### 2 4344-4 ####[facility]ATORYCLIA [id number] [place] [address] Lactate (Bld) [Moles/Vol]on 12-29-2020 Lactate [Moles/Vol] 1.5 mmol/L Normal 0.5-2.2 [facility] Comment on above: Order Comment: Speci men Type: BLOOD SPECIMEN Performed By: #### 3 2693-4 ####[facility]ORATORYCLIA [id number] [place] [address] Magnesium SerPl-mCncon 12-29 Magnesium [Mass/Vol] 2.4 mg/dL High 1.7-2.3 [facility] Comment on above: Order Comment: Speci men Type: BLOOD SPECIMEN Performed By: #### 2 777-1, 51416-6, 90344-3 ####[facility]ORATORYCLIA [id number] [place] [address] PT EDon 12-29-2020 PT ED Normal [facility] Phosphate SerPl-mCncon 12-29 Phosphate [Mass/Vol] 4.5 mg/dL Normal 2.7-4.8 [facility] Comment on above: Order Comment: Speci men Type: BLOOD SPECIMEN Performed By: #### 2 777-1, 53144-3, ####[facility]ORATORYCLIA [id number] [place] [address] THERAPY NTon 12-29-2020 THERAPY NT Normal [facility] XR ABDOMEN 1V SUPINEon 12-29 XR ABDOMEN 1V SUPINE Normal [facility] XR CHEST 1V FRONTALon 2020 XR CHEST 1V FRONTAL Normal [facility] ALLIED HEALTHon 12-28-2020 ALLIED HEALTH Normal [facility] ALLIED HEALTH Normal [facility] ALLIED HEALTH Normal [facility] ARTERIAL BLOOD GASESon 12-28 BASE DEFICIT, ARTERIAL -1.4 mmol/L Normal -2-0 [facility] Comment on above: Order Comment: Speci men Type: ARTERIAL BLOOD SPECIMEN Performed By: #### A LLBG ####[facility]ORYCLIA [id number] [place] [address] Body temperature 98.24 [degF] Normal [facility] Comment on above: Order Comment: Speci men Type: ARTERIAL BLOOD SPECIMEN Performed By: #### A LLBG ####[facility]ORATORYCLIA [id number] [place] [address] CALCIUM IONIZED, PH CORRECTED 1.11 mmol/L Normal 1.08-1.30 [facility] Comment on above: Order Comment: Speci men Type: ARTERIAL BLOOD SPECIMEN Performed By: #### A LLBG ####[facility]ORYCLIA [id number] [place] [address] Calcium.ionized (BldV) [Mass/Vol] 1.18 mmol/L Normal 1.08-1.30 [facility] Comment on above: Order Comment: Speci men Type: ARTERIAL BLOOD SPECIMEN Performed By: #### A LLBG ####[facility]ORYCLIA [id number] [place] [address] Carboxyhemoglobin (BldA) [Mass fraction] 1.2 % Normal 0.0-2.0 [facility] Comment on above: Order Comment: Speci men Type: ARTERIAL BLOOD SPECIMEN Result Comment: Carb oxyhemoglobin Reference Range for Smokers: 2.0-8.0% Performed By: #### A LLBG ####[facility]ORYCLIA [id number] [place] [address] CO2 (Bld) [Partial pressure] 54 mm Hg High 36-46 [facility] Comment on above: Order Comment: Speci men Type: ARTERIAL BLOOD SPECIMEN Performed By: #### A LLBG ####[facility]ORYCLIA [id number] [place] [address] CO2 [Moles/Vol] 23.6 mmol/L Normal 22-28 [facility] Comment on above: Order Comment: Speci men Type: ARTERIAL BLOOD SPECIMEN Performed By: #### A LLBG ####[facility]ORYCLIA [id number] [place] [address] CO2 adjusted to patient's actual temperature (Bld) [Partial pressure] 54 mmHg High 36-46 [facility] Comment on above: Order Comment: Speci men Type: ARTERIAL BLOOD SPECIMEN Performed By: #### A LLBG ####[facility]ORYCLIA [id number] [place] [address] Glucose [Mass/Vol] 103 mg/dL Normal 60-105 [facility] Comment on above: Order Comment: Speci men Type: ARTERIAL BLOOD SPECIMEN Performed By: #### A LLBG ####[facility]ORYCLIA [id number] [place] [address] HCO3 (Bld) [Moles/Vol] 25 mmol/L Normal 22-26 [facility] Comment on above: Order Comment: Speci men Type: ARTERIAL BLOOD SPECIMEN Performed By: #### A LLBG ####[facility]ATORYCLIA [id number] [place] [address] Hematocrit (Bld) [Volume fraction] 35.1 % Low 36.0-46.0 [facility] Comment on above: Order Comment: Speci men Type: ARTERIAL BLOOD SPECIMEN Performed By: #### A LLBG ####[facility]ORYCLIA [id number] [place] [address] Hemoglobin (Bld) [Mass/Vol] 11.4 g/dL Low 11.5-15.5 [facility] Comment on above: Order Comment: Speci men Type: ARTERIAL BLOOD SPECIMEN Performed By: #### A LLBG ####[facility]ORYCLIA [id number] [place] [address] Methemoglobin (Bld) [Mass fraction] 1.2 % Normal 0.0-1.5 [facility] Comment on above: Order Comment: Speci men Type: ARTERIAL BLOOD SPECIMEN Performed By: #### A LLBG ####[facility]ORYCLIA [id number] [place] [address] O2 THERAPY NC = Nasal Cannula Normal [facility] Comment on above: Order Comment: Speci men Type: ARTERIAL BLOOD SPECIMEN Result Comment: 8L Performed By: #### A LLBG ####[facility]ATORYCLIA [id number] [place] [address] Oxygen (Bld) [Partial pressure] 92 mm Hg Normal 85-95 [facility] Comment on above: Order Comment: Speci men Type: ARTERIAL BLOOD SPECIMEN Performed By: #### A LLBG ####[facility]ORYCLIA [id number] [place] [address] Oxygen adjusted to patient's actual temperature (Bld) [Partial pressure] 90.9 mmHg Normal 85-95 [facility] Comment on above: Order Comment: Speci men Type: ARTERIAL BLOOD SPECIMEN Performed By: #### A LLBG ####[facility]ORYCLIA [id number] [place] [address] OXYGEN SATURATION, ARTERIAL 96 % Normal 95-98 [facility] Comment on above: Order Comment: Speci men Type: ARTERIAL BLOOD SPECIMEN Performed By: #### A LLBG ####[facility]ORYCLIA [id number] [place] [address] Oxyhemoglobin (BldA) [Mass fraction] 94 % Low 95-98 [facility] Comment on above: Order Comment: Speci men Type: ARTERIAL BLOOD SPECIMEN Performed By: #### A LLBG ####[facility]ATORYCLIA [id number] [place] [address] pH (Bld) 7.29 [pH] Low 7.35-7.45 [facility] Comment on above: Order Comment: Speci men Type: ARTERIAL BLOOD SPECIMEN Performed By: #### A LLBG ####[facility]ATORYCLIA [id number] [place] [address] pH adjusted to patient's actual temperature (Bld) 7.29 Low 7.35-7.45 [facility] Comment on above: Order Comment: Speci men Type: ARTERIAL BLOOD SPECIMEN Performed By: #### A LLBG ####[facility]ORYCLIA [id number] [place] [address] Potassium [Moles/Vol] 3.7 mmol/L Normal 3.5-5.0 [facility] Comment on above: Order Comment: Speci men Type: ARTERIAL BLOOD SPECIMEN Performed By: #### A LLBG ####[facility]ORYCLIA [id number] [place] [address] Sodium [Moles/Vol] 144 mmol/L Normal 136-144 [facility] Comment on above: Order Comment: Speci men Type: ARTERIAL BLOOD SPECIMEN Performed By: #### A LLBG ####[facility]ORYCLIA [id number] [place] [address] Basic metabolic 2000 panelon 12-28-2020 Anion gap [Moles/Vol] 7 mmol/L Low 9-18 [facility] Comment on above: Order Comment: Speci men Type: BLOOD SPECIMEN Performed By: #### 1 9123-9, 67558-7, 2776-08 ####[facility] LABORATORYCLIA [id number] [place] [address] Calcium [Mass/Vol] 7.1 mg/dL Low 8.5-10.2 [facility] Comment on above: Order Comment: Speci men Type: BLOOD SPECIMEN Performed By: #### 1 9123-9, 55648-2, 2776-08 ####[facility]ORYCLIA [id number] [place] [address] Chloride [Moles/Vol] 117 mmol/L High 97-105 [facility] Comment on above: Order Comment: Speci men Type: BLOOD SPECIMEN Performed By: #### 1 9123-9, 85607-5, 2776-08 ####[facility]ORYCLIA [id number] [place] [address] CO2 [Moles/Vol] 23 mmol/L Normal 22-30 [facility] Comment on above: Order Comment: Speci men Type: BLOOD SPECIMEN Performed By: #### 1 9123-9, 29709-9, 2776-08 ####[facility]ORYCLIA [id number] [place] [address] Creatinine [Mass/Vol] 0.99 mg/dL High 0.58-0.96 [facility] Comment on above: Order Comment: Riki camacho Type: BLOOD SPECIMEN Performed By: #### 1 9123-9, 10377-1, 2776-08 ####[facility]ORATORYCLIA [id number] [place] [address] GFR/1.73 sq M.predicted MDRD (S/P/Bld) [Vol rate/Area] mL/min/{1.73_m2} Normal [facility] Comment on above: Order Comment: [...] actual GFR. Performed By: #### 1 9123-9, 96786-7, 2776-08 ####[facility]ORATORYCLIA [id number] [place] [address] Glucose [Mass/Vol] 179 mg/dL High 74-99 [facility] Comment on above: Order Comment: Riki camacho Type: BLOOD SPECIMEN Result Comment: The [place] [employer] (ADA) provides guidance for cutoff [...] Standards of Medical Care in Diabetes 2016, [place] [employer]. Diabetes Care. 2016.39(Suppl 1). Performed By: #### 1 9123-9, 94665-5, 2776-08 ####[facility] LABORATORYCLIA [id number] [place] [address] Potassium [Moles/Vol] 3.8 mmol/L Normal 3.7-5.1 [facility] Comment on above: Order Comment: Speci men Type: BLOOD SPECIMEN Performed By: #### 1 9123-9, 54039-1, 2777-1 ####[facility]ORATORYCLIA [id number] [place] [address] Sodium [Moles/Vol] 147 mmol/L High 136-144 [facility] Comment on above: Order Comment: Speci men Type: BLOOD SPECIMEN Performed By: #### 1 9123-9, 47494-3, 2777-1 ####[facility]ORATORYCLIA [id number] [place] [address] Urea nitrogen [Mass/Vol] 32 mg/dL High 7-21 [facility] Comment on above: Order Comment: Speci men Type: BLOOD SPECIMEN Performed By: #### 1 9123-9, 28774-2, 277- ####[facility]ORATORYCLIA [id number] [place] [address] CALCIUM IONIZED Bon 12-29-19 Calcium.ionized (BldV) [Mass/Vol] 1.10 mmol/L Normal 1.08-1.30 [facility] Comment on above: Order Comment: Speci men Type: BLOOD SPECIMEN Performed By: #### I CA ####[facility]ATORYCLIA [id number] [place] [address] Calcium.ionized adjusted to pH 7.4 (Bld) [Moles/Vol] 1.10 mmol/L Normal 1.08-1.30 [facility] Comment on above: Order Comment: Speci men Type: BLOOD SPECIMEN Performed By: #### I CA ####[facility]ORATORYCLIA [id number] [place] [address] CBC panel Auto (Bld)on 12-28 Erythrocyte distribution width (RBC) [Ratio] 16.6 % High 11.5-15.0 [facility] Comment on above: Order Comment: Speci men Type: BLOOD SPECIMEN Performed By: #### 5 8410-2 ####[facility]ATORYCLIA [id number] [place] [address] Hematocrit (Bld) [Volume fraction] 34.4 % Low 36.0-46.0 [facility] Comment on above: Order Comment: Speci men Type: BLOOD SPECIMEN Performed By: #### 5 8410-2 ####[facility]ATORYCLIA [id number] [place] [address] Hemoglobin (Bld) [Mass/Vol] 11.6 g/dL Normal 11.5-15.5 [facility] Comment on above: Order Comment: Speci men Type: BLOOD SPECIMEN Performed By: #### 5 8410-2 ####[facility]ATORYCLIA [id number] [place] [address] MCH (RBC) [Entitic mass] 29.1 pg Normal 26.0-34.0 [facility] Comment on above: Order Comment: Speci men Type: BLOOD SPECIMEN Performed By: #### 5 8410-2 ####[facility]ATORYCLIA [id number] [place] [address] MCHC (RBC) [Mass/Vol] 33.7 g/dL Normal 30.5-36.0 [facility] Comment on above: Order Comment: Speci men Type: BLOOD SPECIMEN Performed By: #### 5 8410-2 ####[facility]ATORYCLIA [id number] [place] [address] MCV (RBC) [Entitic vol] 86.2 fL Normal 80.0-100.0 [facility] Comment on above: Order Comment: Speci men Type: BLOOD SPECIMEN Performed By: #### 5 8410-2 ####[facility]ATORYCLIA [id number] [place] [address] Nucleated RBC (Bld) [#/Vol] 0.09 10*3/uL High <0.01 [facility] Comment on above: Order Comment: Speci men Type: BLOOD SPECIMEN Performed By: #### 5 8410-2 ####[facility]ATORYCLIA [id number] [place] [address] Platelet mean volume (Bld) [Entitic vol] 10.5 fL Normal 9.0-12.7 [facility] Comment on above: Order Comment: Speci men Type: BLOOD SPECIMEN Performed By: #### 5 8410-2 ####[facility]ATORYCLIA [id number] [place] [address] Platelets (Bld) [#/Vol] 193 10*3/uL Normal 150-400 [facility] Comment on above: Order Comment: Speci men Type: BLOOD SPECIMEN Performed By: #### 5 8410-2 ####[facility]ATORYCLIA [id number] [place] [address] RBC (Bld) [#/Vol] 3.99 10*6/uL Normal 3.90-5.20 [facility] Comment on above: Order Comment: Speci men Type: BLOOD SPECIMEN Performed By: #### 5 8410-2 ####[facility]ATORYCLIA [id number] [place] [address] WBC (Bld) [#/Vol] 10.32 10*3/uL Normal 3.70-11.00 [facility] Comment on above: Order Comment: Speci men Type: BLOOD SPECIMEN Performed By: #### 5 8410-2 ####[facility]ATORYCLIA [id number] [place] [address] Erythrocyte distribution width (RBC) [Ratio] 15.9 % High 11.5-15.0 [facility] Comment on above: Order Comment: Speci men Type: BLOOD SPECIMEN Performed By: #### 5 8410-2 ####[facility]ATORYCLIA [id number] [place] [address] Hematocrit (Bld) [Volume fraction] 24.5 % Low 36.0-46.0 [facility] Comment on above: Order Comment: Speci men Type: BLOOD SPECIMEN Performed By: #### 5 8410-2 ####[facility]ATORYCLIA [id number] [place] [address] Hemoglobin (Bld) [Mass/Vol] 7.7 g/dL Low 11.5-15.5 [facility] Comment on above: Order Comment: Speci men Type: BLOOD SPECIMEN Performed By: #### 5 8410-2 ####[facility]ORATORYCLIA [id number] [place] [address] MCH (RBC) [Entitic mass] 28.9 pg Normal 26.0-34.0 [facility] Comment on above: Order Comment: Speci men Type: BLOOD SPECIMEN Performed By: #### 5 8410-2 ####[facility]ATORYCLIA [id number] [place] [address] MCHC (RBC) [Mass/Vol] 31.4 g/dL Normal 30.5-36.0 [facility] Comment on above: Order Comment: Speci men Type: BLOOD SPECIMEN Performed By: #### 5 8410-2 ####[facility]ATORYCLIA [id number] [place] [address] MCV (RBC) [Entitic vol] 92.1 fL Normal 80.0-100.0 [facility] Comment on above: Order Comment: Speci men Type: BLOOD SPECIMEN Performed By: #### 5 8410-2 ####[facility]ATORYCLIA [id number] [place] [address] Nucleated RBC (Bld) [#/Vol] 0.05 10*3/uL High <0.01 [facility] Comment on above: Order Comment: Speci men Type: BLOOD SPECIMEN Performed By: #### 5 8410-2 ####[facility]ATORYCLIA [id number] [place] [address] Platelet mean volume (Bld) [Entitic vol] 11.6 fL Normal 9.0-12.7 [facility] Comment on above: Order Comment: Speci men Type: BLOOD SPECIMEN Performed By: #### 5 8410-2 ####[facility]ATORYCLIA [id number] [place] [address] Platelets (Bld) [#/Vol] 179 10*3/uL Normal 150-400 [facility] Comment on above: Order Comment: Speci men Type: BLOOD SPECIMEN Performed By: #### 5 8410-2 ####[facility]ATORYCLIA [id number] [place] [address] RBC (Bld) [#/Vol] 2.66 10*6/uL Low 3.90-5.20 [facility] Comment on above: Order Comment: Speci men Type: BLOOD SPECIMEN Performed By: #### 5 8410-2 ####[facility]ATORYCLIA [id number] [place] [address] WBC (Bld) [#/Vol] 9.06 10*3/uL Normal 3.70-11.00 [facility] Comment on above: Order Comment: Speci men Type: BLOOD SPECIMEN Performed By: #### 5 8410-2 ####[facility]ORATORYCLIA [id number] [place] [address] CONSULT PROGon 12-28-2020 CONSULT PROG Normal [facility] CT ABD/PEL W IVCONon 021 CT ABD/PEL W IVCON Normal [facility] CT BRAIN WO IVCONon 12-29-[address] BRAIN WO IVCON Normal [facility] HIGH SENSITIVITY TROPONIN To n 12-28-2020 HIGH SENSITIVITY MARIAM 8 ng/L Normal <12 [facility] Comment on above: Order Comment: Speci [...] day MACE. Performed By: #### H STNT ####[facility] LABORATORYCLIA [id number] [place] [address] Lactate (Bld) [Moles/Vol]on 12-28-2020 Lactate [Moles/Vol] 0.9 mmol/L Normal 0.5-2.2 [facility] Comment on above: Order Comment: Speci men Type: BLOOD SPECIMEN Performed By: #### 3 2693-4 ####[facility]ORATORYCLIA [id number] [place] [address] Magnesium SerPl-ncon 12-28 Magnesium [Mass/Vol] 2.6 mg/dL High 1.7-2.3 [facility] Comment on above: Order Comment: Speci men Type: BLOOD SPECIMEN Performed By: #### 1 9123-9, 45853-3, 2777-1 ####[facility]ORATORYCLIA [id number] [place] [address] NURSING PROGon 12-28-2020 NURSING PROG Normal [facility] NUTRITIONon 12-28-2020 NUTRITION Normal [facility] Phosphate SerPl-mCncon 12-28 Phosphate [Mass/Vol] 2.9 mg/dL Normal 2.7-4.8 [facility] Comment on above: Order Comment: Speci men Type: BLOOD SPECIMEN Performed By: #### 1 9123-9, 02292-8, 2777-1 ####[facility]ORATORYCLIA [id number] [place] [address] TYPE AND SCREENon 12-28-2020 ABO A Normal [facility] Comment on above: Order Comment: Speci men Type: BLOOD SPECIMEN Performed By: #### T SCR ####[facility] B[facility] BANKCLIA [id number] [place] [address] HISTORICAL AB SCR STATUS Negative [facility] Comment on above: Order Comment: Speci men Type: BLOOD SPECIMEN Performed By: #### T SCR ####[facility] BANKCLIA [id number] [place] [address] Rh Nom (Bld) Positive [facility] Comment on above: Order Comment: Speci men Type: BLOOD SPECIMEN Performed By: #### T SCR ####[facility] B[facility] BANKCLIA [id number] [place] [address] TYPE AND SCREEN EXPIRATION 12/31/2020 23:59 Normal [facility] Comment on above: Order Comment: Speci men Type: BLOOD SPECIMEN Performed By: #### T SCR ####[facility] BANKCLIA [id number] [place] [address] XR ABDOMEN 1V SUPINEon 12-28 XR ABDOMEN 1V SUPINE Normal [facility] XR CHEST 1V FRONTALon 2020 XR CHEST 1V FRONTAL Normal [facility] ALLIED HEALTHon 12-27-2020 ALLIED HEALTH Normal [facility] Basic metabolic 2000 panelon 12-27-2020 Anion gap [Moles/Vol] 7 mmol/L Low 9-18 [facility] Comment on above: Order Comment: Speci men Type: BLOOD SPECIMEN Performed By: #### 2 4321-2, , 2776-08 ####[facility] LABORATORYCLIA [id number] [place] [address] Calcium [Mass/Vol] 7.3 mg/dL Low 8.5-10.2 [facility] Comment on above: Order Comment: Speci men Type: BLOOD SPECIMEN Performed By: #### 2 4321-2, , 2776-08 ####[facility] [id number] [place] [address] Chloride [Moles/Vol] 114 mmol/L High 97-105 [facility] Comment on above: Order Comment: Speci men Type: BLOOD SPECIMEN Performed By: #### 2 4321-2, , 2776-08 ####[facility]ORY[facility] [id number] [place] [address] CO2 [Moles/Vol] 22 mmol/L Normal 22-30 [facility] Comment on above: Order Comment: Speci men Type: BLOOD SPECIMEN Performed By: #### 2 4321-2, , 2776-08 ####[facility]ORYCL[facility] [id number] [place] [address] Creatinine [Mass/Vol] 1.02 mg/dL High 0.58-0.96 [facility] Comment on above: Order Comment: Speci men Type: BLOOD SPECIMEN Performed By: #### 2 4321-2, , 2776-08 ####[facility]ORYCL[facility] [id number] [place] [address] GFR/1.73 sq M.predicted MDRD (S/P/Bld) [Vol rate/Area] mL/min/{1.73_m2} Normal [facility] Comment on above: Order Comment: [...] Performed By: #### 2 4321-2, , 2776-08 ####ST. [facility]IA [id number] [place] [address] Glucose [Mass/Vol] 169 mg/dL High 74-99 [facility] Comment on above: Order Comment: Speci men Type: BLOOD SPECIMEN Result Comment: The [place] [employer] Association (ADA) provides guidance for cutoff [...] Standards of Medical Care in Diabetes 2016, [place] [employer]. Diabetes Care. 2016.39(Suppl 1). Performed By: #### 2 4321-2, , 2776-08 ####[facility]ORY[facility]IA [id number] [place] [address] Potassium [Moles/Vol] 3.5 mmol/L Low 3.7-5.1 [facility] Comment on above: Order Comment: Speci men Type: BLOOD SPECIMEN Performed By: #### 2 4321-2, 87596-3, 2776- ####[facility]ORYCLIA [id number] [place] [address] Sodium [Moles/Vol] 143 mmol/L Normal 136-144 [facility] Comment on above: Order Comment: Speci men Type: BLOOD SPECIMEN Performed By: #### 2 4321-2, , 2776-08 ####[facility]ORYCLIA [id number] [place] [address] Urea nitrogen [Mass/Vol] 22 mg/dL High 7-21 [facility] Comment on above: Order Comment: Speci men Type: BLOOD SPECIMEN Performed By: #### 2 4321-2, , 2776-08 ####[facility]ORYCL[facility] [id number] [place] [address] CALCIUM IONIZED Bon 12-28-19 Calcium.ionized (BldV) [Mass/Vol] 1.12 mmol/L Normal 1.08-1.30 [facility] Comment on above: Order Comment: Speci men Type: BLOOD SPECIMEN Performed By: #### I CA ####[facility]ORYCL[facility] [id number] [place] [address] Calcium.ionized adjusted to pH 7.4 (Bld) [Moles/Vol] 1.13 mmol/L Normal 1.08-1.30 [facility] Comment on above: Order Comment: Speci men Type: BLOOD SPECIMEN Performed By: #### I CA ####[facility]ORYCLIA [id number] [place] [address] CBC panel Auto (Bld)on 12-27 Erythrocyte distribution width (RBC) [Ratio] 15.8 % High 11.5-15.0 [facility] Comment on above: Order Comment: Speci men Type: BLOOD SPECIMEN Performed By: #### 5 8410-2 ####[facility]ORYCLIA [id number] [place] [address] Hematocrit (Bld) [Volume fraction] 30.4 % Low 36.0-46.0 [facility] Comment on above: Order Comment: Speci men Type: BLOOD SPECIMEN Performed By: #### 5 8410-2 ####[facility]ORYCLIA [id number] [place] [address] Hemoglobin (Bld) [Mass/Vol] 9.9 g/dL Low 11.5-15.5 [facility] Comment on above: Order Comment: Speci men Type: BLOOD SPECIMEN Performed By: #### 5 8410-2 ####[facility]ORYCLIA [id number] [place] [address] MCH (RBC) [Entitic mass] 29.3 pg Normal 26.0-34.0 [facility] Comment on above: Order Comment: Speci men Type: BLOOD SPECIMEN Performed By: #### 5 8410-2 ####[facility]ORYCLIA [id number] [place] [address] MCHC (RBC) [Mass/Vol] 32.6 g/dL Normal 30.5-36.0 [facility] Comment on above: Order Comment: Speci men Type: BLOOD SPECIMEN Performed By: #### 5 8410-2 ####[facility]ORYCLIA [id number] [place] [address] MCV (RBC) [Entitic vol] 89.9 fL Normal 80.0-100.0 [facility] Comment on above: Order Comment: Speci men Type: BLOOD SPECIMEN Performed By: #### 5 8410-2 ####[facility]ORYCLIA [id number] [place] [address] Nucleated RBC (Bld) [#/Vol] 10*3/uL Normal <0.01 [facility] Comment on above: Order Comment: Speci men Type: BLOOD SPECIMEN Performed By: #### 5 8410-2 ####[facility]ORYCLIA [id number] [place] [address] Platelet mean volume (Bld) [Entitic vol] 10.9 fL Normal 9.0-12.7 [facility] Comment on above: Order Comment: Speci men Type: BLOOD SPECIMEN Performed By: #### 5 8410-2 ####[facility]ORYCLIA [id number] [place] [address] Platelets (Bld) [#/Vol] 175 10*3/uL Normal 150-400 [facility] Comment on above: Order Comment: Speci men Type: BLOOD SPECIMEN Performed By: #### 5 8410-2 ####[facility]ORYCLIA [id number] [place] [address] RBC (Bld) [#/Vol] 3.38 10*6/uL Low 3.90-5.20 [facility] Comment on above: Order Comment: Speci men Type: BLOOD SPECIMEN Performed By: #### 5 8410-2 ####[facility]ORYCLIA [id number] [place] [address] WBC (Bld) [#/Vol] 13.19 10*3/uL High 3.70-11.00 [facility] Comment on above: Order Comment: Speci men Type: BLOOD SPECIMEN Performed By: #### 5 8410-2 ####[facility]ORYCLIA [id number] [place] [address] CONSULT PROGon 12-27-2020 CONSULT PROG Normal [facility] Magnesium SerPl-mCncon 12-27 Magnesium [Mass/Vol] 2.8 mg/dL High 1.7-2.3 [facility] Comment on above: Order Comment: Speci men Type: BLOOD SPECIMEN Performed By: #### 2 4321-2, 37137-5, 2777-1 ####[facility]ORYCLIA [id number] [place] [address] NURSING PROGon 12-27-2020 NURSING PROG Normal [facility] NURSING PROG Normal [facility] Phosphate SerPl-mCncon 12-27 Phosphate [Mass/Vol] 2.7 mg/dL Normal 2.7-4.8 [facility] Comment on above: Order Comment: Speci men Type: BLOOD SPECIMEN Performed By: #### 2 4321-2, 63133-1, 2777-1 ####[facility]ORYCLIA [id number] [place] [address] XR CHEST 1V FRONTALon 2020 XR CHEST 1V FRONTAL Normal [facility] ALLIED HEALTHon 12-26-2020 ALLIED HEALTH Normal [facility] ARTERIAL BLOOD GASESon 12-26 BASE DEFICIT, ARTERIAL -1.0 mmol/L Normal -2-0 [facility] Comment on above: Order Comment: Speci men Type: ARTERIAL BLOOD SPECIMEN Performed By: #### A LLBG ####[facility]ORYCLIA [id number] [place] [address] Body temperature 99.68 [degF] Normal [facility] Comment on above: Order Comment: Speci men Type: ARTERIAL BLOOD SPECIMEN Performed By: #### A LLBG ####[facility]ORYCLIA [id number] [place] [address] CALCIUM IONIZED, PH CORRECTED 1.14 mmol/L Normal 1.08-1.30 [facility] Comment on above: Order Comment: Speci men Type: ARTERIAL BLOOD SPECIMEN Performed By: #### A LLBG ####[facility]ORYCLIA [id number] [place] [address] Calcium.ionized (BldV) [Mass/Vol] 1.12 mmol/L Normal 1.08-1.30 [facility] Comment on above: Order Comment: Speci men Type: ARTERIAL BLOOD SPECIMEN Performed By: #### A LLBG ####[facility]ORYCLIA [id number] [place] [address] Carboxyhemoglobin (BldA) [Mass fraction] 1.2 % Normal 0.0-2.0 [facility] Comment on above: Order Comment: Speci men Type: ARTERIAL BLOOD SPECIMEN Result Comment: Carb oxyhemoglobin Reference Range for Smokers: 2.0-8.0% Performed By: #### A LLBG ####[facility]ORYCLIA [id number] [place] [address] CO2 (Bld) [Partial pressure] 33 mm Hg Low 36-46 [facility] Comment on above: Order Comment: Speci men Type: ARTERIAL BLOOD SPECIMEN Performed By: #### A LLBG ####[facility]ORYCLIA [id number] [place] [address] CO2 [Moles/Vol] 20.1 mmol/L Low 22-28 [facility] Comment on above: Order Comment: Speci men Type: ARTERIAL BLOOD SPECIMEN Performed By: #### A LLBG ####[facility]ORYCLIA [id number] [place] [address] CO2 adjusted to patient's actual temperature (Bld) [Partial pressure] 34 mmHg Low 36-46 [facility] Comment on above: Order Comment: Speci men Type: ARTERIAL BLOOD SPECIMEN Performed By: #### A LLBG ####[facility]ORYCLIA [id number] [place] [address] FIO2 30 % Normal [facility] Comment on above: Order Comment: Speci men Type: ARTERIAL BLOOD SPECIMEN Performed By: #### A LLBG ####[facility]ORYCLIA [id number] [place] [address] Glucose [Mass/Vol] 160 mg/dL High 60-105 [facility] Comment on above: Order Comment: Speci men Type: ARTERIAL BLOOD SPECIMEN Performed By: #### A LLBG ####[facility]ORYCLIA [id number] [place] [address] HCO3 (Bld) [Moles/Vol] 22 mmol/L Normal 22-26 [facility] Comment on above: Order Comment: Speci men Type: ARTERIAL BLOOD SPECIMEN Performed By: #### A LLBG ####[facility]ORYCLIA [id number] [place] [address] Hematocrit (Bld) [Volume fraction] 33.9 % Low 36.0-46.0 [facility] Comment on above: Order Comment: Speci men Type: ARTERIAL BLOOD SPECIMEN Performed By: #### A LLBG ####[facility]ORYCLIA [id number] [place] [address] Hemoglobin (Bld) [Mass/Vol] 11.0 g/dL Low 11.5-15.5 [facility] Comment on above: Order Comment: Speci men Type: ARTERIAL BLOOD SPECIMEN Performed By: #### A LLBG ####[facility]ORYCLIA [id number] [place] [address] Methemoglobin (Bld) [Mass fraction] 1.1 % Normal 0.0-1.5 [facility] Comment on above: Order Comment: Speci men Type: ARTERIAL BLOOD SPECIMEN Performed By: #### A LLBG ####[facility]ORYCLIA [id number] [place] [address] O2 THERAPY Ventilator Normal [facility] Comment on above: Order Comment: Speci men Type: ARTERIAL BLOOD SPECIMEN Performed By: #### A LLBG ####[facility]ORYCLIA [id number] [place] [address] Oxygen (Bld) [Partial pressure] 85 mm Hg Normal 85-95 [facility] Comment on above: Order Comment: Speci men Type: ARTERIAL BLOOD SPECIMEN Performed By: #### A LLBG ####[facility]ORYCLIA [id number] [place] [address] Oxygen adjusted to patient's actual temperature (Bld) [Partial pressure] 87.7 mmHg Normal 85-95 [facility] Comment on above: Order Comment: Speci men Type: ARTERIAL BLOOD SPECIMEN Performed By: #### A LLBG ####[facility]ORYCLIA [id number] [place] [address] OXYGEN SATURATION, ARTERIAL 97 % Normal 95-98 [facility] Comment on above: Order Comment: Speci men Type: ARTERIAL BLOOD SPECIMEN Performed By: #### A LLBG ####[facility]ORYCLIA [id number] [place] [address] Oxyhemoglobin (BldA) [Mass fraction] 95 % Normal 95-98 [facility] Comment on above: Order Comment: Speci men Type: ARTERIAL BLOOD SPECIMEN Performed By: #### A LLBG ####[facility]ORYCLIA [id number] [place] [address] pH (Bld) 7.44 [pH] Normal 7.35-7.45 [facility] Comment on above: Order Comment: Speci men Type: ARTERIAL BLOOD SPECIMEN Performed By: #### A LLBG ####[facility]ORYCLIA [id number] [place] [address] pH adjusted to patient's actual temperature (Bld) 7.43 Normal 7.35-7.45 [facility] Comment on above: Order Comment: Speci men Type: ARTERIAL BLOOD SPECIMEN Performed By: #### A LLBG ####[facility]ORYCLIA [id number] [place] [address] Potassium [Moles/Vol] 3.3 mmol/L Low 3.5-5.0 [facility] Comment on above: Order Comment: Speci men Type: ARTERIAL BLOOD SPECIMEN Performed By: #### A LLBG ####[facility]ORYCLIA [id number] [place] [address] Sodium [Moles/Vol] 144 mmol/L Normal 136-144 [facility] Comment on above: Order Comment: Speci men Type: ARTERIAL BLOOD SPECIMEN Performed By: #### A LLBG ####[facility]ORYCLIA [id number] [place] [address] Basic metabolic 2000 panelon 12-26-2020 Anion gap [Moles/Vol] 9 mmol/L Normal 9-18 [facility] Comment on above: Order Comment: Speci men Type: BLOOD SPECIMEN Performed By: #### 2 4321-2, , 2776-08 ####[facility]ORYCLIA [id number] [place] [address] Calcium [Mass/Vol] 7.4 mg/dL Low 8.5-10.2 [facility] Comment on above: Order Comment: Speci men Type: BLOOD SPECIMEN Performed By: #### 2 4321-2, , 2776-08 ####[facility]ORYCLIA [id number] [place] [address] Chloride [Moles/Vol] 114 mmol/L High 97-105 [facility] Comment on above: Order Comment: Speci men Type: BLOOD SPECIMEN Performed By: #### 2 4321-2, , 2776-08 ####[facility]ORYCLIA [id number] [place] [address] CO2 [Moles/Vol] 22 mmol/L Normal 22-30 [facility] Comment on above: Order Comment: Speci men Type: BLOOD SPECIMEN Performed By: #### 2 1-2, , 2776-08 ####[facility]ORYCLIA [id number] [place] [address] Creatinine [Mass/Vol] 1.25 mg/dL High 0.58-0.96 [facility] Comment on above: Order Comment: Speci men Type: BLOOD SPECIMEN Performed By: #### 2 1-2, , 2776-08 ####[facility]ORYCLIA [id number] [place] [address] GFR/1.73 sq M.predicted MDRD (S/P/Bld) [Vol rate/Area] 52 mL/min/{1.73_m2} Normal [facility] Comment on above: Order Comment: [...] Performed By: #### 2 4321-2, , 2776-08 ####[facility]ORYCLIA [id number] [place] [address] Glucose [Mass/Vol] 157 mg/dL High 74-99 [facility] Comment on above: Order Comment: Speci men Type: BLOOD SPECIMEN Result Comment: The [place] [employer] Association (ADA) provides guidance for cutoff [...] Standards of Medical Care in Diabetes 2016, [place] [employer]. Diabetes Care. 2016.39(Suppl 1). Performed By: #### 2 1-2, , 2776-08 ####[facility]ORYCLIA [id number] [place] [address] Potassium [Moles/Vol] 3.3 mmol/L Low 3.7-5.1 [facility] Comment on above: Order Comment: Speci men Type: BLOOD SPECIMEN Performed By: #### 2 1-2, , 2776-08 ####[facility]ORYCLIA [id number] [place] [address] Sodium [Moles/Vol] 145 mmol/L High 136-144 [facility] Comment on above: Order Comment: Speci men Type: BLOOD SPECIMEN Performed By: #### 2 1-2, , 2776-08 ####[facility]ORYCLIA [id number] [place] [address] Urea nitrogen [Mass/Vol] 18 mg/dL Normal 7-21 [facility] Comment on above: Order Comment: Speci men Type: BLOOD SPECIMEN Performed By: #### 2 1-2, , 2776-08 ####[facility]ORYCLIA [id number] [place] [address] CASE MANAGEMon 12-26-2020 CASE MANAGEM Normal [facility] CBC panel Auto (Bld)on 12-26 Erythrocyte distribution width (RBC) [Ratio] 15.3 % High 11.5-15.0 [facility] Comment on above: Order Comment: Speci men Type: BLOOD SPECIMEN Performed By: #### 5 8410-2 ####[facility]ORYCLIA [id number] [place] [address] Hematocrit (Bld) [Volume fraction] 32.0 % Low 36.0-46.0 [facility] Comment on above: Order Comment: Speci men Type: BLOOD SPECIMEN Performed By: #### 5 8410-2 ####[facility]ORYCLIA [id number] [place] [address] Hemoglobin (Bld) [Mass/Vol] 10.8 g/dL Low 11.5-15.5 [facility] Comment on above: Order Comment: Speci men Type: BLOOD SPECIMEN Performed By: #### 5 8410-2 ####[facility]ORYCLIA [id number] [place] [address] MCH (RBC) [Entitic mass] 30.0 pg Normal 26.0-34.0 [facility] Comment on above: Order Comment: Speci men Type: BLOOD SPECIMEN Performed By: #### 5 8410-2 ####[facility]ORYCLIA [id number] [place] [address] MCHC (RBC) [Mass/Vol] 33.8 g/dL Normal 30.5-36.0 [facility] Comment on above: Order Comment: Speci men Type: BLOOD SPECIMEN Performed By: #### 5 8410-2 ####[facility]ORYCLIA [id number] [place] [address] MCV (RBC) [Entitic vol] 88.9 fL Normal 80.0-100.0 [facility] Comment on above: Order Comment: Speci men Type: BLOOD SPECIMEN Performed By: #### 5 8410-2 ####[facility]ORYCLIA [id number] [place] [address] Nucleated RBC (Bld) [#/Vol] 10*3/uL Normal <0.01 [facility] Comment on above: Order Comment: Speci men Type: BLOOD SPECIMEN Performed By: #### 5 8410-2 ####[facility]ORYCLIA [id number] [place] [address] Platelet mean volume (Bld) [Entitic vol] 10.2 fL Normal 9.0-12.7 [facility] Comment on above: Order Comment: Speci men Type: BLOOD SPECIMEN Performed By: #### 5 8410-2 ####[facility]ORYCLIA [id number] [place] [address] Platelets (Bld) [#/Vol] 165 10*3/uL Normal 150-400 [facility] Comment on above: Order Comment: Speci men Type: BLOOD SPECIMEN Performed By: #### 5 8410-2 ####[facility]ORYCLIA [id number] [place] [address] RBC (Bld) [#/Vol] 3.60 10*6/uL Low 3.90-5.20 [facility] Comment on above: Order Comment: Speci men Type: BLOOD SPECIMEN Performed By: #### 5 8410-2 ####[facility]ORYCLIA [id number] [place] [address] WBC (Bld) [#/Vol] 11.65 10*3/uL High 3.70-11.00 [facility] Comment on above: Order Comment: Speci men Type: BLOOD SPECIMEN Performed By: #### 5 8410-2 ####[facility]ORYCLIA [id number] [place] [address] CONSULT PROGon 12-26-2020 CONSULT PROG Normal [facility] HIGH SENSITIVITY TROPONIN To n 12-26-2020 HIGH SENSITIVITY MARIAM 12 ng/L High <12 [facility] Comment on above: Order Comment: Speci [...] day MACE. Performed By: #### H STNT ####[facility]ORYCLIA [id number] [place] [address] Magnesium SerPl-[facility] 12-26 Magnesium [Mass/Vol] 1.7 mg/dL Normal 1.7-2.3 [facility] Comment on above: Order Comment: Speci men Type: BLOOD SPECIMEN Performed By: #### 2 4321-2, , 2776-08 ####[facility]ORYCLIA [id number] [place] [address] NURSING PROGon 12-26-2020 NURSING PROG Normal [facility] NURSING PROG Normal [facility] NURSING PROG Normal [facility] Phosphate [facility] 12-26 Phosphate [Mass/Vol] 2.5 mg/dL Low 2.7-4.8 [facility] Comment on above: Order Comment: Speci men Type: BLOOD SPECIMEN Performed By: #### 2 4321-2, , 2776-08 ####[facility]ORYCLIA [id number] [place] [address] VITAMIN D 25 HYDROXYon 12-26 25-hydroxyvitamin D3 [Mass/Vol] 22.6 ng/mL Low 30.0-100.0 [facility] Comment on above: Order Comment: Speci men Type: BLOOD SPECIMEN Result Comment: Clas sification of 25 [place] Vitamin D status:Deficiency: < 20 ng/ml.Insufficientcy: 20-30 ng/ml.Sufficiency: 30-100 ng/ml. Performed By: #### V ITD ####[facility]ORYCLIA [id number] [place] [address] XR CHEST 1V FRONTALon 2020 XR CHEST 1V FRONTAL Normal [facility] ALLIED HEALTHon 12-25-2020 ALLIED HEALTH Normal [facility] ALLIED HEALTH Normal [facility] ALLIED HEALTH Normal [facility] ALLIED HEALTH Normal [facility] ALLIED HEALTH Normal [facility] ARTERIAL BLOOD GASESon 12-25 BASE DEFICIT, ARTERIAL -3.3 mmol/L Low -2-0 [facility] Comment on above: Order Comment: Speci men Type: ARTERIAL BLOOD SPECIMEN Performed By: #### A LLBG ####[facility]ORYCLIA [id number] [place] [address] Body temperature 97.16 [degF] Normal [facility] Comment on above: Order Comment: Speci men Type: ARTERIAL BLOOD SPECIMEN Performed By: #### A LLBG ####[facility]ORYCLIA [id number] [place] [address] CALCIUM IONIZED, PH CORRECTED 1.08 mmol/L Normal 1.08-1.30 [facility] Comment on above: Order Comment: Speci men Type: ARTERIAL BLOOD SPECIMEN Performed By: #### A LLBG ####[facility]ORYCLIA [id number] [place] [address] Calcium.ionized (BldV) [Mass/Vol] 1.12 mmol/L Normal 1.08-1.30 [facility] Comment on above: Order Comment: Speci men Type: ARTERIAL BLOOD SPECIMEN Performed By: #### A LLBG ####[facility]ORYCLIA [id number] [place] [address] Carboxyhemoglobin (BldA) [Mass fraction] 1.2 % Normal 0.0-2.0 [facility] Comment on above: Order Comment: Speci men Type: ARTERIAL BLOOD SPECIMEN Result Comment: Carb oxyhemoglobin Reference Range for Smokers: 2.0-8.0% Performed By: #### A LLBG ####[facility]ORYCLIA [id number] [place] [address] CO2 (Bld) [Partial pressure] 42 mm Hg Normal 36-46 [facility] Comment on above: Order Comment: Speci men Type: ARTERIAL BLOOD SPECIMEN Performed By: #### A LLBG ####[facility]ORYCLIA [id number] [place] [address] CO2 [Moles/Vol] 20.6 mmol/L Low 22-28 [facility] Comment on above: Order Comment: Speci men Type: ARTERIAL BLOOD SPECIMEN Performed By: #### A LLBG ####[facility]ORYCLIA [id number] [place] [address] CO2 adjusted to patient's actual temperature (Bld) [Partial pressure] 40 mmHg Normal 36-46 [facility] Comment on above: Order Comment: Speci men Type: ARTERIAL BLOOD SPECIMEN Performed By: #### A LLBG ####[facility]ORYCLIA [id number] [place] [address] FIO2 40 % Normal [facility] Comment on above: Order Comment: Speci men Type: ARTERIAL BLOOD SPECIMEN Performed By: #### A LLBG ####[facility]ORYCLIA [id number] [place] [address] Glucose [Mass/Vol] 115 mg/dL High 60-105 [facility] Comment on above: Order Comment: Speci men Type: ARTERIAL BLOOD SPECIMEN Performed By: #### A LLBG ####[facility]ORYCLIA [id number] [place] [address] HCO3 (Bld) [Moles/Vol] 22 mmol/L Normal 22-26 [facility] Comment on above: Order Comment: Speci men Type: ARTERIAL BLOOD SPECIMEN Performed By: #### A LLBG ####[facility]ORYCLIA [id number] [place] [address] Hematocrit (Bld) [Volume fraction] 29.3 % Low 36.0-46.0 [facility] Comment on above: Order Comment: Speci men Type: ARTERIAL BLOOD SPECIMEN Performed By: #### A LLBG ####[facility]ORYCLIA [id number] [place] [address] Hemoglobin (Bld) [Mass/Vol] 9.4 g/dL Low 11.5-15.5 [facility] Comment on above: Order Comment: Speci men Type: ARTERIAL BLOOD SPECIMEN Performed By: #### A LLBG ####[facility]ORYCLIA [id number] [place] [address] Methemoglobin (Bld) [Mass fraction] % Normal 0.0-1.5 [facility] Comment on above: Order Comment: Speci men Type: ARTERIAL BLOOD SPECIMEN Performed By: #### A LLBG ####[facility]ORYCLIA [id number] [place] [address] O2 THERAPY Ventilator Normal [facility] Comment on above: Order Comment: Speci men Type: ARTERIAL BLOOD SPECIMEN Performed By: #### A LLBG ####[facility]ORYCLIA [id number] [place] [address] Oxygen (Bld) [Partial pressure] 137 mm Hg High 85-95 [facility] Comment on above: Order Comment: Speci men Type: ARTERIAL BLOOD SPECIMEN Performed By: #### A LLBG ####[facility]ORYCLIA [id number] [place] [address] Oxygen adjusted to patient's actual temperature (Bld) [Partial pressure] 132 mmHg High 85-95 [facility] Comment on above: Order Comment: Speci men Type: ARTERIAL BLOOD SPECIMEN Performed By: #### A LLBG ####[facility]IA [id number] [place] [address] OXYGEN SATURATION, ARTERIAL 99 % High 95-98 [facility] Comment on above: Order Comment: Speci men Type: ARTERIAL BLOOD SPECIMEN Performed By: #### A LLBG ####[facility]ORYCLIA [id number] [place] [address] Oxyhemoglobin (BldA) [Mass fraction] 98 % Normal 95-98 [facility] Comment on above: Order Comment: Speci men Type: ARTERIAL BLOOD SPECIMEN Performed By: #### A LLBG ####[facility]ORYCLIA [id number] [place] [address] pH (Bld) 7.34 [pH] Low 7.35-7.45 [facility] Comment on above: Order Comment: Speci men Type: ARTERIAL BLOOD SPECIMEN Performed By: #### A LLBG ####[facility]ORYCLIA [id number] [place] [address] pH adjusted to patient's actual temperature (Bld) 7.35 Normal 7.35-7.45 [facility] Comment on above: Order Comment: Speci men Type: ARTERIAL BLOOD SPECIMEN Performed By: #### A LLBG ####[facility]ORYCLIA [id number] [place] [address] Potassium [Moles/Vol] 3.4 mmol/L Low 3.5-5.0 [facility] Comment on above: Order Comment: Speci men Type: ARTERIAL BLOOD SPECIMEN Performed By: #### A LLBG ####[facility]ORYCLIA [id number] [place] [address] Sodium [Moles/Vol] 145 mmol/L High 136-144 [facility] Comment on above: Order Comment: Speci men Type: ARTERIAL BLOOD SPECIMEN Performed By: #### A LLBG ####[facility]ORATORYCLIA [id number] [place] [address] BASE DEFICIT, ARTERIAL -8.6 mmol/L Low -2-0 [facility] Comment on above: Order Comment: Speci men Type: ARTERIAL BLOOD SPECIMEN Performed By: #### A LLBG ####[facility] LABORATORYCLIA [id number] [place] [address] Body temperature 97.52 [degF] Normal [facility] Comment on above: Order Comment: Speci men Type: ARTERIAL BLOOD SPECIMEN Performed By: #### A LLBG ####[facility] LABORATORYCLIA [id number] [place] [address] CALCIUM IONIZED, PH CORRECTED Normal [facility] Comment on above: Order Comment: Speci men Type: ARTERIAL BLOOD SPECIMEN Result Comment: Tomas ured pH is <7.20. Unable to report normalized Calcium.Measured pH is <7.20. Unable to report normalized Calcium. Performed By: #### A LLBG ####[facility] LABORATORYCLIA [id number] [place] [address] Calcium.ionized (BldV) [Mass/Vol] 1.16 mmol/L Normal 1.08-1.30 [facility] Comment on above: Order Comment: Speci men Type: ARTERIAL BLOOD SPECIMEN Performed By: #### A LLBG ####[facility]ORATORYCLIA [id number] [place] [address] Carboxyhemoglobin (BldA) [Mass fraction] 1.1 % Normal 0.0-2.0 [facility] Comment on above: Order Comment: Speci men Type: ARTERIAL BLOOD SPECIMEN Performed By: #### A LLBG ####[facility]ORATORYCLIA [id number] [place] [address] CO2 (Bld) [Partial pressure] 57 mm Hg High 36-46 [facility] Comment on above: Order Comment: Speci men Type: ARTERIAL BLOOD SPECIMEN Performed By: #### A LLBG ####[facility]ORATORYCLIA [id number] [place] [address] CO2 [Moles/Vol] 19.1 mmol/L Low 22-28 [facility] Comment on above: Order Comment: Speci men Type: ARTERIAL BLOOD SPECIMEN Performed By: #### A LLBG ####[facility]ORATORYCLIA [id number] [place] [address] CO2 adjusted to patient's actual temperature (Bld) [Partial pressure] 55 mmHg High 36-46 [facility] Comment on above: Order Comment: Speci men Type: ARTERIAL BLOOD SPECIMEN Performed By: #### A LLBG ####[facility]ORATORYCLIA [id number] [place] [address] FIO2 40 % Normal [facility] Comment on above: Order Comment: Speci men Type: ARTERIAL BLOOD SPECIMEN Performed By: #### A LLBG ####[facility]ORATORYCLIA [id number] [place] [address] Glucose [Mass/Vol] 170 mg/dL High 60-105 [facility] Comment on above: Order Comment: Speci men Type: ARTERIAL BLOOD SPECIMEN Performed By: #### A LLBG ####[facility]ORATORYCLIA [id number] [place] [address] HCO3 (Bld) [Moles/Vol] 20 mmol/L Low 22-26 [facility] Comment on above: Order Comment: Speci men Type: ARTERIAL BLOOD SPECIMEN Performed By: #### A LLBG ####[facility]ORATORYCLIA [id number] [place] [address] Hematocrit (Bld) [Volume fraction] 36.6 % Normal 36.0-46.0 [facility] Comment on above: Order Comment: Speci men Type: ARTERIAL BLOOD SPECIMEN Performed By: #### A LLBG ####[facility]ORATORYCLIA [id number] [place] [address] Hemoglobin (Bld) [Mass/Vol] 11.9 g/dL Normal 11.5-15.5 [facility] Comment on above: Order Comment: Speci men Type: ARTERIAL BLOOD SPECIMEN Performed By: #### A LLBG ####[facility]ORATORYCLIA [id number] [place] [address] Methemoglobin (Bld) [Mass fraction] % Normal 0.0-1.5 [facility] Comment on above: Order Comment: Speci men Type: ARTERIAL BLOOD SPECIMEN Performed By: #### A LLBG ####[facility]ORATORYCLIA [id number] [place] [address] O2 THERAPY Ventilator Normal [facility] Comment on above: Order Comment: Speci men Type: ARTERIAL BLOOD SPECIMEN Performed By: #### A LLBG ####[facility]ORATORYCLIA [id number] [place] [address] Oxygen (Bld) [Partial pressure] 113 mm Hg High 85-95 [facility] Comment on above: Order Comment: Speci men Type: ARTERIAL BLOOD SPECIMEN Performed By: #### A LLBG ####[facility] LABORATORYCLIA [id number] [place] [address] Oxygen adjusted to patient's actual temperature (Bld) [Partial pressure] 109 mmHg High 85-95 [facility] Comment on above: Order Comment: Speci men Type: ARTERIAL BLOOD SPECIMEN Performed By: #### A LLBG ####[facility] LABORATORYCLIA [id number] [place] [address] OXYGEN SATURATION, ARTERIAL 98 % Normal 95-98 [facility] Comment on above: Order Comment: Speci men Type: ARTERIAL BLOOD SPECIMEN Performed By: #### A LLBG ####[facility] LABORATORYCLIA [id number] [place] [address] Oxyhemoglobin (BldA) [Mass fraction] 96 % Normal 95-98 [facility] Comment on above: Order Comment: Speci men Type: ARTERIAL BLOOD SPECIMEN Performed By: #### A LLBG ####[facility] LABORATORYCLIA [id number] [place] [address] pH (Bld) 7.17 [pH] Critically low 7.35-7.45 [facility] Comment on above: Order Comment: Speci men Type: ARTERIAL BLOOD SPECIMEN Performed By: #### A LLBG ####[facility] LABORATORYCLIA [id number] [place] [address] pH adjusted to patient's actual temperature (Bld) 7.18 Critically low 7.35-7.45 [facility] Comment on above: Order Comment: Speci men Type: ARTERIAL BLOOD SPECIMEN Performed By: #### A LLBG ####[facility] LABORATORYCLIA [id number] [place] [address] Potassium [Moles/Vol] 5.7 mmol/L High 3.5-5.0 [facility] Comment on above: Order Comment: Speci men Type: ARTERIAL BLOOD SPECIMEN Performed By: #### A LLBG ####[facility]ORATORYCLIA [id number] [place] [address] Sodium [Moles/Vol] 139 mmol/L Normal 136-144 [facility] Comment on above: Order Comment: Speci men Type: ARTERIAL BLOOD SPECIMEN Performed By: #### A LLBG ####[facility]ORATORYCLIA [id number] [place] [address] BRIEF OP NOTon 12-25-2020 BRIEF OP NOT Normal [facility] Basic metabolic 2000 panelon 12-25-2020 Anion gap [Moles/Vol] 7 mmol/L Low 9-18 [facility] Comment on above: Order Comment: Speci men Type: BLOOD SPECIMEN Performed By: #### 2 4321-2 ####[facility] LABORATORYCLIA [id number] [place] [address] Calcium [Mass/Vol] 7.1 mg/dL Low 8.5-10.2 [facility] Comment on above: Order Comment: Speci men Type: BLOOD SPECIMEN Performed By: #### 2 4321-2 ####[facility] LABORATORYCLIA [id number] [place] [address] Chloride [Moles/Vol] 115 mmol/L High 97-105 [facility] Comment on above: Order Comment: Speci men Type: BLOOD SPECIMEN Performed By: #### 2 4321-2 ####[facility] LABORATORYCLIA [id number] [place] [address] CO2 [Moles/Vol] 23 mmol/L Normal 22-30 [facility] Comment on above: Order Comment: Speci men Type: BLOOD SPECIMEN Performed By: #### 2 4321-2 ####[facility] LABORATORYCLIA [id number] [place] [address] Creatinine [Mass/Vol] 1.38 mg/dL High 0.58-0.96 [facility] Comment on above: Order Comment: Speci men Type: BLOOD SPECIMEN Performed By: #### 2 4321-2 ####[facility] LABORATORYCLIA [id number] [place] [address] GFR/1.73 sq M.predicted MDRD (S/P/Bld) [Vol rate/Area] 47 mL/min/{1.73_m2} Normal [facility] Comment on above: Order Comment: [...] actual GFR. Performed By: #### 2 4321-2 ####[facility] LABORATORYCLIA [id number] [place] [address] Glucose [Mass/Vol] 115 mg/dL High 74-99 [facility] Comment on above: Order Comment: Speci men Type: BLOOD SPECIMEN Result Comment: The [place] [employer] (ADA) provides guidance for cutoff [...] Standards of Medical Care in Diabetes 2016, [place] [employer]. Diabetes Care. 2016.39(Suppl 1). Performed By: #### 2 4321-2 ####[facility] LABORATORYCLIA [id number] [place] [address] Potassium [Moles/Vol] 3.4 mmol/L Low 3.7-5.1 [facility] Comment on above: Order Comment: Speci men Type: BLOOD SPECIMEN Performed By: #### 2 4321-2 ####[facility] LABORATORYCLIA [id number] [place] [address] Sodium [Moles/Vol] 145 mmol/L High 136-144 [facility] Comment on above: Order Comment: Speci men Type: BLOOD SPECIMEN Performed By: #### 2 4321-2 ####[facility] LABORATORYCLIA [id number] [place] [address] Urea nitrogen [Mass/Vol] 18 mg/dL Normal 7-21 [facility] Comment on above: Order Comment: Speci men Type: BLOOD SPECIMEN Performed By: #### 2 4321-2 ####[facility] LABORATORYCLIA [id number] [place] [address] Anion gap [Moles/Vol] 7 mmol/L Low 9-18 [facility] Comment on above: Order Comment: Speci men Type: BLOOD SPECIMEN Performed By: #### 2 777-1, 25439-9, ####[facility] LABORATORYCLIA [id number] [place] [address] Calcium [Mass/Vol] 7.7 mg/dL Low 8.5-10.2 [facility] Comment on above: Order Comment: Speci men Type: BLOOD SPECIMEN Performed By: #### 2 777-1, , ####[facility] LABORATORYCLIA [id number] [place] [address] Chloride [Moles/Vol] 110 mmol/L High 97-105 [facility] Comment on above: Order Comment: Speci men Type: BLOOD SPECIMEN Performed By: #### 2 777-1, , ####[facility] LABORATORYCLIA [id number] [place] [address] CO2 [Moles/Vol] 22 mmol/L Normal 22-30 [facility] Comment on above: Order Comment: Speci men Type: BLOOD SPECIMEN Performed By: #### 2 777-1, , ####[facility] LABORATORYCLIA [id number] [place] [address] Creatinine [Mass/Vol] 1.77 mg/dL High 0.58-0.96 [facility] Comment on above: Order Comment: Speci men Type: BLOOD SPECIMEN Performed By: #### 2 777-1, , ####[facility]ORATORYCLIA [id number] [place] [address] GFR/1.73 sq M.predicted MDRD (S/P/Bld) [Vol rate/Area] 35 mL/min/{1.73_m2} Normal [facility] Comment on above: Order Comment: [...] actual GFR. Performed By: #### 2 777-1, 76732-1, ####[facility] LABORATORYCLIA [id number] [place] [address] Glucose [Mass/Vol] 175 mg/dL High 74-99 [facility] Comment on above: Order Comment: Speci men Type: BLOOD SPECIMEN Result Comment: The [place] [employer] (ADA) provides guidance for cutoff [...] Standards of Medical Care in Diabetes 2016, [place] [employer]. Diabetes Care. 2016.39(Suppl 1). Performed By: #### 2 777-1, 05375-9, ####[facility] LABORATORYCLIA [id number] [place] [address] Potassium [Moles/Vol] 6.5 mmol/L Critically high 3.7-5.1 [facility] Comment on above: Order Comment: Speci men Type: BLOOD SPECIMEN Performed By: #### 2 777-1, 28353-6, ####[facility] LABORATORYCLIA [id number] [place] [address] Sodium [Moles/Vol] 139 mmol/L Normal 136-144 [facility] Comment on above: Order Comment: Speci men Type: BLOOD SPECIMEN Performed By: #### 2 777-1, 56898-6, ####[facility] LABORATORYCLIA [id number] [place] [address] Urea nitrogen [Mass/Vol] 20 mg/dL Normal 7-21 [facility] Comment on above: Order Comment: Speci men Type: BLOOD SPECIMEN Performed By: #### 2 777-1, 14065-8, ####[facility] LABORATORYCLIA [id number] [place] [address] CBC panel Auto (Bld)on 12-25 Erythrocyte distribution width (RBC) [Ratio] 14.9 % Normal 11.5-15.0 [facility] Comment on above: Order Comment: Speci men Type: BLOOD SPECIMEN Performed By: #### 5 8410-2 ####[facility] LABORATORYCLIA [id number] [place] [address] Hematocrit (Bld) [Volume fraction] 40.5 % Normal 36.0-46.0 [facility] Comment on above: Order Comment: Speci men Type: BLOOD SPECIMEN Performed By: #### 5 8410-2 ####[facility] LABORATORYCLIA [id number] [place] [address] Hemoglobin (Bld) [Mass/Vol] 12.3 g/dL Normal 11.5-15.5 [facility] Comment on above: Order Comment: Speci men Type: BLOOD SPECIMEN Performed By: #### 5 8410-2 ####[facility] LABORATORYCLIA [id number] [place] [address] MCH (RBC) [Entitic mass] 29.2 pg Normal 26.0-34.0 [facility] Comment on above: Order Comment: Speci men Type: BLOOD SPECIMEN Performed By: #### 5 8410-2 ####[facility] LABORATORYCLIA [id number] [place] [address] MCHC (RBC) [Mass/Vol] 30.4 g/dL Low 30.5-36.0 [facility] Comment on above: Order Comment: Speci men Type: BLOOD SPECIMEN Performed By: #### 5 8410-2 ####[facility] LABORATORYCLIA [id number] [place] [address] MCV (RBC) [Entitic vol] 96.2 fL Normal 80.0-100.0 [facility] Comment on above: Order Comment: Speci men Type: BLOOD SPECIMEN Performed By: #### 5 8410-2 ####[facility] LABORATORYCLIA [id number] [place] [address] Nucleated RBC (Bld) [#/Vol] 10*3/uL Normal <0.01 [facility] Comment on above: Order Comment: Speci men Type: BLOOD SPECIMEN Performed By: #### 5 8410-2 ####[facility] LABORATORYCLIA [id number] [place] [address] Platelet mean volume (Bld) [Entitic vol] 10.5 fL Normal 9.0-12.7 [facility] Comment on above: Order Comment: Speci men Type: BLOOD SPECIMEN Performed By: #### 5 8410-2 ####[facility] LABORATORYCLIA [id number] [place] [address] Platelets (Bld) [#/Vol] 239 10*3/uL Normal 150-400 [facility] Comment on above: Order Comment: Speci men Type: BLOOD SPECIMEN Performed By: #### 5 8410-2 ####[facility] LABORATORYCLIA [id number] [place] [address] RBC (Bld) [#/Vol] 4.21 10*6/uL Normal 3.90-5.20 [facility] Comment on above: Order Comment: Speci men Type: BLOOD SPECIMEN Performed By: #### 5 8410-2 ####[facility] LABORATORYCLIA [id number] [place] [address] WBC (Bld) [#/Vol] 18.45 10*3/uL High 3.70-11.00 [facility] Comment on above: Order Comment: Speci men Type: BLOOD SPECIMEN Performed By: #### 5 8410-2 ####[facility] LABORATORYCLIA [id number] [place] [address] Erythrocyte distribution width (RBC) [Ratio] 14.8 % Normal 11.5-15.0 [facility] Comment on above: Order Comment: Speci men Type: BLOOD SPECIMEN Performed By: #### 5 8410-2 ####[facility] LABORATORYCLIA [id number] [place] [address] Hematocrit (Bld) [Volume fraction] 43.4 % Normal 36.0-46.0 [facility] Comment on above: Order Comment: Speci men Type: BLOOD SPECIMEN Performed By: #### 5 8410-2 ####[facility] LABORATORYCLIA [id number] [place] [address] Hemoglobin (Bld) [Mass/Vol] 13.7 g/dL Normal 11.5-15.5 [facility] Comment on above: Order Comment: Speci men Type: BLOOD SPECIMEN Performed By: #### 5 8410-2 ####[facility] LABORATORYCLIA [id number] [place] [address] MCH (RBC) [Entitic mass] 29.3 pg Normal 26.0-34.0 [facility] Comment on above: Order Comment: Speci men Type: BLOOD SPECIMEN Performed By: #### 5 8410-2 ####[facility] LABORATORYCLIA [id number] [place] [address] MCHC (RBC) [Mass/Vol] 31.6 g/dL Normal 30.5-36.0 [facility] Comment on above: Order Comment: Speci men Type: BLOOD SPECIMEN Performed By: #### 5 8410-2 ####[facility] LABORATORYCLIA [id number] [place] [address] MCV (RBC) [Entitic vol] 92.9 fL Normal 80.0-100.0 [facility] Comment on above: Order Comment: Speci men Type: BLOOD SPECIMEN Performed By: #### 5 8410-2 ####[facility] LABORATORYCLIA [id number] [place] [address] Nucleated RBC (Bld) [#/Vol] 10*3/uL Normal <0.01 [facility] Comment on above: Order Comment: Speci men Type: BLOOD SPECIMEN Performed By: #### 5 8410-2 ####[facility] LABORATORYCLIA [id number] [place] [address] Platelet mean volume (Bld) [Entitic vol] 10.4 fL Normal 9.0-12.7 [facility] Comment on above: Order Comment: Speci men Type: BLOOD SPECIMEN Performed By: #### 5 8410-2 ####[facility] LABORATORYCLIA [id number] [place] [address] Platelets (Bld) [#/Vol] 223 10*3/uL Normal 150-400 [facility] Comment on above: Order Comment: Speci men Type: BLOOD SPECIMEN Performed By: #### 5 8410-2 ####[facility] LABORATORYCLIA [id number] [place] [address] RBC (Bld) [#/Vol] 4.67 10*6/uL Normal 3.90-5.20 [facility] Comment on above: Order Comment: Speci men Type: BLOOD SPECIMEN Performed By: #### 5 8410-2 ####[facility] LABORATORYCLIA [id number] [place] [address] WBC (Bld) [#/Vol] 25.76 10*3/uL High 3.70-11.00 [facility] Comment on above: Order Comment: Speci men Type: BLOOD SPECIMEN Performed By: #### 5 8410-2 ####[facility] LABORATORYCLIA [id number] [place] [address] CONSULT PROGon 12-25-2020 CONSULT PROG Normal [facility] CT BRAIN WO IVCONon 12-26-[address] BRAIN WO IVCON Normal [facility] CT KNEE WO IVCON RTon 2020 CT KNEE WO IVCON RT Normal [facility] CT PELVIS ORTHO WO IVCONon 0 12-25-2020 CT PELVIS ORTHO WO IVCON Normal [facility] Ethanol SerPl-mCncon 021 Ethanol [Mass/Vol] mg/dL Normal <11 [facility] Comment on above: Order Comment: Speci men Type: BLOOD SPECIMEN Performed By: #### 5 643-2 ####[facility] LABORATORYCLIA [id number] [place] [address] HIGH SENSITIVITY TROPONIN To n 12-25-2020 HIGH SENSITIVITY MARIAM 15 ng/L High <12 [facility] Comment on above: Order Comment: Speci [...] day MACE. Performed By: #### H STNT ####[facility] LABORATORYCLIA [id number] [place] [address] IR EMBOLIZATION HEMORRHAGEon 12-25-2020 IR EMBOLIZATION HEMORRHAGE Normal [facility] Lactate (Bld) [Moles/Vol]on 12-25-2020 Lactate [Moles/Vol] 0.9 mmol/L Normal 0.5-2.2 [facility] Comment on above: Order Comment: Speci men Type: BLOOD SPECIMEN Performed By: #### 3 2693-4 ####[facility] LABORATORYCLIA [id number] [place] [address] Lactate [Moles/Vol] 3.3 mmol/L High 0.5-2.2 [facility] Comment on above: Order Comment: Speci men Type: BLOOD SPECIMEN Performed By: #### 3 2693-4 ####[facility] LABORATORYCLIA [id number] [place] [address] Lipase SerPl-cCncon 12-26-19 21 Lipase [Catalytic activity/Vol] 30 U/L Normal 16-61 [facility] Comment on above: Order Comment: Speci men Type: BLOOD SPECIMEN Performed By: #### 3 040-3 ####[facility] LABORATORYCLIA [id number] [place] [address] Magnesium SerPl-mCncon 12-25 Magnesium [Mass/Vol] 2.2 mg/dL Normal 1.7-2.3 [facility] Comment on above: Order Comment: Speci men Type: BLOOD SPECIMEN Performed By: #### 2 777-1, 00649-8, 35621-5 ####[facility] LABORATORYCLIA [id number] [place] [address] NUTRITIONon 12-25-2020 NUTRITION Normal [facility] PT panel Coag (PPP)on 2020 INR Coag (PPP) [Relative time] 1.1 {INR} Normal 0.9-1.3 [facility] Comment on above: Order Comment: Speci men Type: BLOOD SPECIMEN Result Comment: Elisabeth min K Antagonist (VKA) Therapeutic Range: INR 2 to 3 (Target INR of 2.5)Note: For patients treated with VKA drugs, such as warfarin, the [place] [employer] 2012 Guideline recommends [...] 70: 252-289 Performed By: #### 3 4528-0, 11330-1 ####[facility] LABORATORYCLIA [id number] [place] [address] PT Coag (PPP) [Time] 11.3 s Normal 9.7-13.0 [facility] Comment on above: Order Comment: Speci men Type: BLOOD SPECIMEN Performed By: #### 3 4528-0, 60134-3 ####[facility] LABORATORYCLIA [id number] [place] [address] Phosphate SerPl-mCncon 12-25 Phosphate [Mass/Vol] 6.6 mg/dL High 2.7-4.8 [facility] Comment on above: Order Comment: Speci men Type: BLOOD SPECIMEN Performed By: #### 2 777-1, 99897-4, 80408-1 ####[facility] LABORATORYCLIA [id number] [place] [address] STAPH AUREUS PCRon S. aureus and MRSA panel LAVELL+probe (Nose) Abnormal Negative [facility] Comment on above: Order Comment: Speci men Type: SWAB OF INTERNAL NOSE Result Comment: Posi tive for Staphylococcus aureus by PCR.Negative for MRSA by PCR Performed By: #### S APCR ####[facility] LABORATORYCLIA [id number] [place] [address] TOX SCREEN ROUT URon 021 Amphetamines Confirm (U) [Mass/Vol] Negative Normal Negative [facility] Comment on above: Order Comment: Speci men Type: URINE SPECIMEN Result Comment: Cuto ff threshold at 1000 ng/mL. Performed By: #### U TOX2 ####[facility] LABORATORYCLIA [id number] [place] [address] BARBITURATES, URINE Negative Normal Negative [facility] Comment on above: Order Comment: Speci men Type: URINE SPECIMEN Result Comment: Cuto ff threshold at 200 ng/mL. Performed By: #### U TOX2 ####[facility] LABORATORYCLIA [id number] [place] [address] BENZODIAZEPINES, UR Positive Abnormal Negative [facility] Comment on above: Order Comment: Speci men Type: URINE SPECIMEN Result Comment: Cuto ff threshold at 200 ng/mL. Performed By: #### U TOX2 ####[facility] LABORATORYCLIA [id number] [place] [address] CANNABINOIDS,URINE Positive Abnormal Negative [facility] Comment on above: Order Comment: Speci men Type: URINE SPECIMEN Result Comment: Cuto ff threshold at 50 ng/mL. Performed By: #### U TOX2 ####[facility]ATORYCLIA [id number] [place] [address] Cocaine Ql (U) Positive Abnormal Negative [facility] Comment on above: Order Comment: Speci men Type: URINE SPECIMEN Result Comment: Cuto ff threshold at 300 ng/mL. Performed By: #### U TOX2 ####[facility]ATORYCLIA [id number] [place] [address] Ethanol (U) [Mass/Vol] <11 Normal <11 [facility] Comment on above: Order Comment: Speci men Type: URINE SPECIMEN Performed By: #### U TOX2 ####[facility] LABORATORYCLIA [id number] [place] [address] Opiates Screen Ql (U) Negative Normal Negative [facility] Comment on above: Order Comment: Speci men Type: URINE SPECIMEN Result Comment: Cuto ff threshold at 300 ng/mL. Performed By: #### U TOX2 ####[facility] LABORATORYCLIA [id number] [place] [address] oxyCODONE cutoff Screen (U) [Mass/Vol] Negative Normal Negative [facility] Comment on above: Order Comment: Speci men Type: URINE SPECIMEN Result Comment: Cuto ff threshold at 100 ng/mL. Performed By: #### U TOX2 ####[facility] LABORATORYCLIA [id number] [place] [address] Phencyclidine Ql (U) Negative Normal Negative [facility] Comment on above: Order Comment: Speci men Type: URINE SPECIMEN Result Comment: Cuto ff threshold at 25 ng/mL. Performed By: #### U TOX2 ####[facility] LABORATORYCLIA [id number] [place] [address] XR CHEST 1V FRONTALon 2020 XR CHEST 1V FRONTAL Normal [facility] XR CHEST 1V FRONTAL Normal [facility] XR FOOT 3V AP/LAT/OBL LTon 0 12-25-2020 XR FOOT 3V AP/LAT/OBL LT Normal [facility] XR FOOT 3V AP/LAT/OBL RTon 0 12-25-2020 XR FOOT 3V AP/LAT/OBL RT Normal [facility] aPTT PPPon 12-25-2020 aPTT Coag (PPP) [Time] 25.4 s Normal 23.0-32.4 [facility] Comment on above: Order Comment: Speci men Type: BLOOD SPECIMEN Performed By: #### 3 4528-0, 19149-0 ####[facility] LABORATORYCLIA [id number] [place] [address] ALLIED HEALTHon 12-24-2020 ALLIED HEALTH Normal [facility] ALLIED HEALTH Normal [facility] ALLIED HEALTH Normal [facility] ALLIED HEALTH Normal [facility] CASE MGT INIT ASSESon 2020 CASE MGT INIT ASSES Normal [facility] CBC panel Auto (Bld)on 12-24 Erythrocyte distribution width (RBC) [Ratio] 14.5 % Normal 11.5-15.0 [facility] Comment on above: Order Comment: Speci men Type: BLOOD SPECIMEN Performed By: #### 5 8410-2 ####[facility] LABORATORYCLIA [id number] [place] [address] Hematocrit (Bld) [Volume fraction] 44.3 % Normal 36.0-46.0 [facility] Comment on above: Order Comment: Speci men Type: BLOOD SPECIMEN Performed By: #### 5 8410-2 ####[facility]ORYCLIA [id number] [place] [address] Hemoglobin (Bld) [Mass/Vol] 14.1 g/dL Normal 11.5-15.5 [facility] Comment on above: Order Comment: Speci men Type: BLOOD SPECIMEN Performed By: #### 5 8410-2 ####[facility]ORYCL[facility] [id number] [place] [address] MCH (RBC) [Entitic mass] 29.5 pg Normal 26.0-34.0 [facility] Comment on above: Order Comment: Speci men Type: BLOOD SPECIMEN Performed By: #### 5 8410-2 ####[facility]ATORYCLIA [id number] [place] [address] MCHC (RBC) [Mass/Vol] 31.8 g/dL Normal 30.5-36.0 [facility] Comment on above: Order Comment: Speci men Type: BLOOD SPECIMEN Performed By: #### 5 8410-2 ####[facility]ATORYCLIA [id number] [place] [address] MCV (RBC) [Entitic vol] 92.7 fL Normal 80.0-100.0 [facility] Comment on above: Order Comment: Speci men Type: BLOOD SPECIMEN Performed By: #### 5 8410-2 ####[facility]ATORYCLIA [id number] [place] [address] Nucleated RBC (Bld) [#/Vol] 10*3/uL Normal <0.01 [facility] Comment on above: Order Comment: Speci men Type: BLOOD SPECIMEN Performed By: #### 5 8410-2 ####[facility]ORYCLIA [id number] [place] [address] Platelet mean volume (Bld) [Entitic vol] 10.3 fL Normal 9.0-12.7 [facility] Comment on above: Order Comment: Speci men Type: BLOOD SPECIMEN Performed By: #### 5 8410-2 ####[facility]ATORYCLIA [id number] [place] [address] Platelets (Bld) [#/Vol] 280 10*3/uL Normal 150-400 [facility] Comment on above: Order Comment: Speci men Type: BLOOD SPECIMEN Performed By: #### 5 8410-2 ####[facility]ORYCLIA [id number] [place] [address] RBC (Bld) [#/Vol] 4.78 10*6/uL Normal 3.90-5.20 [facility] Comment on above: Order Comment: Speci men Type: BLOOD SPECIMEN Performed By: #### 5 8410-2 ####[facility]ATORYCLIA [id number] [place] [address] WBC (Bld) [#/Vol] 29.56 10*3/uL High 3.70-11.00 [facility] Comment on above: Order Comment: Speci men Type: BLOOD SPECIMEN Performed By: #### 5 8410-2 ####[facility]ATORYCLIA [id number] [place] [address] CONFIRM BLOOD TYPEon 021 ABO A Normal [facility] Comment on above: Order Comment: Speci men Type: BLOOD SPECIMEN Performed By: #### C ONABO ####[facility] B[facility] BANKCLIA [id number] [place] [address] Rh Nom (Bld) Positive Normal [facility] Comment on above: Order Comment: Speci men Type: BLOOD SPECIMEN Performed By: #### C ONABO ####[facility] BANKCLIA [id number] [place] [address] CONSULTon 12-24-2020 CONSULT Normal [facility] CONSULT Normal [facility] CONSULT Normal [facility] CT BRAIN WO IVCONon 12-25-19 CT BRAIN WO IVCON Normal [facility] CT FACIAL BONE/DAMARIS WO IVCON on 12-24-2020 CT FACIAL BONE/DAMARIS WO IVCON Normal [facility] Comprehensive metabolic 2000 panelon 12-24-2020 Albumin [Mass/Vol] 4.0 g/dL Normal 3.9-4.9 [facility] Comment on above: Order Comment: Speci men Type: BLOOD SPECIMEN Performed By: #### 2 4323-8, 3040-3 ####[facility]ATORYCLIA [id number] [place] [address] ALP [Catalytic activity/Vol] 67 U/L Normal 34-123 [facility] Comment on above: Order Comment: Speci men Type: BLOOD SPECIMEN Performed By: #### 2 4323-8, 3040-3 ####[facility]ATORYCLIA [id number] [place] [address] ALT With P-5'-P [Catalytic activity/Vol] 50 U/L High 7-38 [facility] Comment on above: Order Comment: Speci men Type: BLOOD SPECIMEN Performed By: #### 2 4323-8, 3040-3 ####[facility]ATORYCLIA [id number] [place] [address] Anion gap [Moles/Vol] 10 mmol/L Normal 9-18 [facility] Comment on above: Order Comment: Speci men Type: BLOOD SPECIMEN Performed By: #### 2 4323-8, 3040-3 ####[facility]ATORYCLIA [id number] [place] [address] AST With P-5'-P [Catalytic activity/Vol] 117 U/L High 13-35 [facility] Comment on above: Order Comment: Speci men Type: BLOOD SPECIMEN Performed By: #### 2 4323-8, 0-3 ####[facility]ATORYCLIA [id number] [place] [address] Bilirubin [Mass/Vol] 0.5 mg/dL Normal 0.2-1.3 [facility] Comment on above: Order Comment: Speci men Type: BLOOD SPECIMEN Performed By: #### 2 4323-8, 3040-3 ####[facility]ATORYCLIA [id number] [place] [address] Calcium [Mass/Vol] 8.8 mg/dL Normal 8.5-10.2 [facility] Comment on above: Order Comment: Speci men Type: BLOOD SPECIMEN Performed By: #### 2 4323-8, 3040-3 ####[facility]ATORYCLIA [id number] [place] [address] Chloride [Moles/Vol] 106 mmol/L High 97-105 [facility] Comment on above: Order Comment: Speci men Type: BLOOD SPECIMEN Performed By: #### 2 4323-8, 3040-3 ####[facility]ORYCLIA [id number] [place] [address] CO2 [Moles/Vol] 20 mmol/L Low 22-30 [facility] Comment on above: Order Comment: Speci men Type: BLOOD SPECIMEN Performed By: #### 2 4323-8, 3040-3 ####[facility]ATORYCLIA [id number] [place] [address] Creatinine [Mass/Vol] 1.29 mg/dL High 0.58-0.96 [facility] Comment on above: Order Comment: Speci men Type: BLOOD SPECIMEN Performed By: #### 2 4323-8, 0-3 ####[facility]ATORYCLIA [id number] [place] [address] GFR/1.73 sq M.predicted MDRD (S/P/Bld) [Vol rate/Area] 50 mL/min/{1.73_m2} Normal [facility] Comment on above: Order Comment: [...] GFR. Performed By: #### 2 4323-8, 0-3 ####[facility]ORATORYCLIA [id number] [place] [address] Glucose [Mass/Vol] 123 mg/dL High 74-99 [facility] Comment on above: Order Comment: [facility] Type: BLOOD SPECIMEN Result Comment: The [place] Diabetes Association (ADA) provides guidance for cutoff [...] Standards of Medical Care in Diabetes 2016, [place] [employer]. Diabetes Care. 2016.39(Suppl 1). Performed By: #### 2 4323-8, 3040-3 ####[facility]ATORYCLIA [id number] [place] [address] Potassium [Moles/Vol] 5.3 mmol/L High 3.7-5.1 [facility] Comment on above: Order Comment: Speci men Type: BLOOD SPECIMEN Performed By: #### 2 4323-8, 3040-3 ####[facility]ATORYCLIA [id number] [place] [address] Protein [Mass/Vol] 6.4 g/dL Normal 6.3-8.0 [facility] Comment on above: Order Comment: Speci men Type: BLOOD SPECIMEN Performed By: #### 2 4323-8, 0-3 ####[facility]ATORYCLIA [id number] [place] [address] Sodium [Moles/Vol] 136 mmol/L Normal 136-144 [facility] Comment on above: Order Comment: Speci men Type: BLOOD SPECIMEN Performed By: #### 2 4323-8, 3040-3 ####[facility]ORATORYCLIA [id number] [place] [address] Urea nitrogen [Mass/Vol] 18 mg/dL Normal 7-21 [facility] Comment on above: Order Comment: Speci men Type: BLOOD SPECIMEN Performed By: #### 2 4323-8, 3040-3 ####[facility]ATORYCLIA [id number] [place] [address] ED NOTEon 12-24-2020 ED NOTE HNO ID: [id number] Author: Suzy Yi RN Service: Emergency Medicine Author Type: Registered Nurse Type: ED Notes Filed: 12/24/2020 9:20 PM Note Text: Xray at [facility] ED NOTE HNO ID: [id number] Author: Lisha Heath RN Service: Emergency Medicine Author Type: Registered Nurse Type: ED Notes Filed: 12/24/2020 9:07 PM Note Text: Pt moved into ICU bed. Ortho at BS placing traction. [facility] ED NOTE HNO ID: [id number] Author: Lisha Heath RN Service: Emergency Medicine Author Type: Registered Nurse Type: ED Notes Filed: 12/24/2020 8:39 PM Note Text: Dr. Neal and pharmacist at adjusting sedation [facility] ED NOTE HNO ID: [id number] Author: Lisha Heath RN Service: Emergency Medicine Author Type: Registered Nurse Type: ED Notes Filed: 12/24/2020 8:20 PM Note Text: Pt placed on LIWS via OG [facility] ED NOTE HNO ID: [id number] Author: Lisha Heath RN Service: Emergency Medicine Author Type: Registered Nurse Type: ED Notes Filed: 12/24/2020 8:05 PM Note Text: OR notified not needed at this time [facility] ED NOTE HNO ID: [id number] Author: Lisha Heath RN Service: Emergency Medicine Author Type: Registered Nurse Type: ED Notes Filed: 12/24/2020 8:01 PM Note Text: Ortho at [facility] ED NOTE HNO ID: [id number] Author: Lisha Heath RN Service: Emergency Medicine Author Type: Registered Nurse Type: ED Notes Filed: 12/24/2020 8:38 PM Note Text: FAST exam performed Normal [facility] ED PROV NOTEon 12-24-2020 ED PROV NOTE Normal [facility] Ethanol SerPl-mCncon 021 Ethanol [Mass/Vol] mg/dL Normal <11 [facility] Comment on above: Order Comment: Speci men Type: BLOOD SPECIMEN Performed By: #### 5 643-2 ####[facility]ORATORYCLIA [id number] [place] [address] HISTORY PHYSICALon HISTORY PHYSICAL Normal [facility] Lipase SerPl-cCncon 12-25-19 21 Lipase [Catalytic activity/Vol] 45 U/L Normal 16-61 [facility] Comment on above: Order Comment: Speci men Type: BLOOD SPECIMEN Performed By: #### 2 4323-8, 3040-3 ####[facility]ORATORYCLIA [id number] [place] [address] PT panel Coag (PPP)on 2020 INR Coag (PPP) [Relative time] Normal 0.9-1.3 [facility] Comment on above: Order Comment: Speci men Type: BLOOD SPECIMEN Result Comment: Elisabeth min K Antagonist (VKA) Therapeutic Range: INR 2 to 3 (Target INR of 2.5)Note: For patients treated with VKA drugs, such as warfarin, the [place] [employer]icians 2012 Guideline recommends [...] al. Chest 2012, 141:7S-47SNishimura RA, et al. [facility] 2017, 70: 252-289Clotted sample auto verifiedCorrected result: Previously reported as 1.1 on 12/24/2020 at 8:38 PM EDT. Performed By: #### 3 4528-0 ####[facility]ATORYCLIA [id number] [place] [address] PT Coag (PPP) [Time] Normal 9.7-13.0 [facility] Comment on above: Order Comment: Speci men Type: BLOOD SPECIMEN Result Comment: Clot kesha sample auto verifiedCorrected result: Previously reported as 10.9 sec on 12/24/2020 at 8:38 PM EDT. Performed By: #### 3 4528-0 ####[facility]ORATORYCLIA [id number] [place] [address] SARS-CoV-2 RNA Resp Ql LAVELL+p robeon 12-24-2020 SARS-CoV-2 (COVID-19) RNA LAVELL+probe Ql (Resp) COVID 19 RESULT: SARS-CoV-2 (Agent of COVID-19) Not Detected by PCR. This test has been authorized by FDA under an Emergency Use Authorization (EUA) [facility] Comment on above: Performed By: #### 9 4500-6 ####[facility]ORATORYCLIA [id number] [place] [address] TYPE AND SCREENon 12-24-2020 ABO A Normal [facility] Comment on above: Order Comment: Speci men Type: BLOOD SPECIMEN Performed By: #### T SCR ####[facility] BLOOD BANKCLIA [id number] [place] [address] HISTORICAL AB SCR STATUS Negative Normal [facility] Comment on above: Order Comment: Speci men Type: BLOOD SPECIMEN Performed By: #### T SCR ####[facility]LO[facility] BANKCLIA [id number] [place] [address] Rh Nom (Bld) Positive [facility] Comment on above: Order Comment: Speci men Type: BLOOD SPECIMEN Performed By: #### T SCR ####[facility]LO[facility] BANKCLIA [id number] [place] [id number] TYPE AND SCREEN EXPIRATION 12/27/2020 23:59 Normal [facility] Comment on above: Order Comment: Speci men Type: BLOOD SPECIMEN Performed By: #### T SCR ####[facility]LO[facility] BANKCLIA [id number] [place] [id number] XR CHEST 1V FRONTALon 2020 XR CHEST 1V FRONTAL Normal [facility] XR ELBOW 2V AP/LAT LTon XR ELBOW 2V AP/LAT LT Normal [facility] XR FEMUR 2V AP/LAT LTon XR FEMUR 2V AP/LAT LT Normal [facility] XR FOOT 3V AP/LAT/OBL LTon 0 12-24-2020 XR FOOT 3V AP/LAT/OBL LT Normal [facility] XR FOOT 3V AP/LAT/OBL RTon 0 12-24-2020 XR FOOT 3V AP/LAT/OBL RT Normal [facility] XR FOREARM 2V AP/LAT LTon XR FOREARM 2V AP/LAT LT Normal A [facility] XR PELVIS 1V APon 12-24-2020 XR PELVIS 1V AP Normal [facility] XR TIBIA FIBULA 2V AP/LAT LT on 12-24-2020 XR TIBIA FIBULA 2V AP/LAT LT Normal [facility] XR TIBIA FIBULA 2V AP/LAT RT on 12-24-2020 XR TIBIA FIBULA 2V AP/LAT RT Normal [facility] aPTT PPPon 12-24-2020 aPTT Coag (PPP) [Time] 25.1 s Normal 23.0-32.4 [facility] Comment on above: Order Comment: Speci men Type: BLOOD SPECIMEN Performed By: #### 1 4979-9 ####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 - Heart Brother [place] age 63 - Heart Brother [place] age 53 - Heart Paternal Grandfather 56 [place] Social History: Social History Tobacco Use - [...] December 08, 2018 TIME: 10:51 AM CSN: [id number] [facility] NURSING PROGon 12-08-2018 Protein mass conc HNO ID: [id number] Author: Libertad Govea) TOMY Delarosa Service: Nursing Author Type: Registered Nurse Type: Nursing Progress Note Filed: 12/08/2018 4:14 PM Note Text: Nursing Progress Note Patient Name: Nora Grande Patient Location: [facility] OR POOL/[facility] * __ Daily Note: 1612:patient ambulated to bathroom. Denies pain. Surgical site intact. Tolerating po. Phase 2 dcm This note was completed by: Libertad Delarosa RN [facility] Protein mass conc HNO ID: [id number] Author: Brooklyn KapoorRn) TOMY Daley Service: Nursing Author Type: Registered Nurse Type: Nursing Progress Note Filed: 12/08/2018 2:01 PM Note Text: Nursing Progress Note Patient Name: Nora Garnde Patient Location: [facility] OR POOL/[facility] [...] note was completed by: Brooklyn Daley RN [facility] OPERATIVE NOon 12-08-2018 OPERATIVE NO HNO ID: [id number] Author: Ml Guallpa Service: Neurosurgery Author Type: Physician Type: Operative Report Filed: 12/09/2018 1:31 PM Note Text: OPERATIVE/PROCEDURE REPORT LOG ID: [id number] SURGERY/PROCEDURE DATE: 12/08/2018 INCISION/PROCEDURE START TIME: 11:39 AM INCISION CLOSE/PROCEDURE END TIME: 12:36 PM SURGEON(S)/PROCEDURALI ST(S) AND POUCH MAKER(S): Surgeon(s) and Role: * Ml Guallpa - Primary * Eze (Res) Firtha - Resident - Assisting No [...] longus colli on either side and inserted Cooter pins in the mid vertebral body of C6 and C7 5mm rostral and caudal from the disc space paralell with the endplates. The superior Cooter pin location was confirmed by radiology. A distractor was placed across the pins and the microscope was brought into the field. I opened the annulus with a 15 blade and performed piecemeal discectomy with large curved curettes, pituitary's and 2mm Kerrisons. I drilled off the dorsal osteophytes using an AM 8 bit on the [employer] Peter drill. I drilled down to the dorsal disc space to the posterior longitudinal ligament which was opened with a curved curette in order to complete bilateral dorsal osteophytectomies with my 2mm Kerrison. ONce my decompression was complete. I then inserted my trials. An [id number] LDR Mobi-C disc replacement was inserted with good positioning confirmed on lateral and AP fluoroscopy. I then removed my Cooter pins and waxed each hole. I irrigated [...] 09, 2018 TIME: 1:28 PM PAGER/CONTACT #: [facility] PT EDon 12-08-2018 PT ED HNO ID: [id number] Author: Libertad (Rn) TOMY Delarosa Service: Nursing [...] Signed By: Libertad Delarosa RN In Department: [facility]GICAL [facility] Potassiumon 12-08-2018 Potassium molar conc 3.4 mmol/L Low 3.7-5.1 [facility] XR CERVICAL 2V AP/LATon 11-17 XR CERVICAL [...] MD on Dec 08 2018 12:42PM EST [id number] XR VERIFY LEVEL C-SOFFU-XLcs 12-08-2018 XR VERIFY LEVEL C-SPINE-NB * * *Final Report* * * DATE OF EXAM: Dec 08 2018 11:52AM HCR [id number] - XR VERIFY LEVEL C-SPINE-NB / PROCEDURE REASON: PAIN * * * * Physician Interpretation * * * * RESULT: Accession number: [id number] COMPARISON: INDICATION: PAIN EXAMINATION: XR VERIFY LEVEL [...] MD on Dec 08 2018 11:58AM EST [id number] NURSING PROGon 12-04-2018 Protein mass conc HNO ID: [id number] Author: Mary Palma (Rn) TOMY Vallejo Service: [...] Department of Cardiovascular Medicine Heart and Vascular [facility] Cardiology 12/03/2018 Anesthesia Review: N/A [...] Vallejo RN December 07, 2018 2:09 PM [facility] HOSPon 12-03-2018 HOSP Patient:Dennis Grande MRN: [...] 46.3 % 12/03/2018 46.0 36.0 Progress Notes ([facility]): Aggie Navarro [facility] 12/04/2018 11:04 AM Signed Yari from [facility] is calling regarding the patients Labs Would like to speak with nurse or PA regarding States she will only be in the office until noon today 12/04/18 . [phone] Aggie Navarro [facility] December 04, 2018 11:04 AM Lynsey Carroll, RN, RN 12/04/2018 12:37 PM Signed Attempted to call [facility], left with this RN contact [...] attempted to return call to Mary from [facility]. No answer, left advising this RN notified PA of lab, will discuss with Dr. Guallpa. This RN contact number left on . [phone]: Mary returned call to this RN. Discussed patient potasium level and provided information as discussed with Jeremy Garay PA-C on 12/04/18, awaiting response from PA. Will notify Mary if there is any further action required from [facility]. Lynsey Carroll RN December 07, 2018 10:36 AM [facility] Nikole Norris, SINCERE 12/03/2018 9:44 AM Signed [...] Norris, SINCERE December 03, 2018 9:40 AM [facility] MRI CERVICAL SPINE WO IVCONo n 09-24-2018 MRI CERVICAL SPINE WO IVCON * * *Final Report* * * DATE OF EXAM: Sep 24 2018 7:30PM [facility] 0297 - MRI CERVICAL SPINE WO IVCON [...] vertebrae with counting from the craniocervical junction. 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 Social History Main Topics Smoking status: Current Some Day Smoker Packs/day: 0.50 Years: 0.00 Start date: 08/18/1979 Smokeless tobacco: Never Used Alcohol use: No Drug use: No Sexual activity: Not Currently control/protection: Surgical Comment: Pt has had a Hysterectomy Social History Narrative Works in [employer]. Sometimes heavy lifting, continuous moving. She has an adult ADHD son, not doing well (seizures). Grandson, great grandson. The grandchildren are living with her. She has to take care of her son but he lives elsewhere. FAMILY HISTORY Problem Relation Age of Onset - Heart Father [place] - Breast Cancer Maternal Grandmother Ovarian as [...] DATE: August 04, 2018 TIME: 12:01 PM [facility] NURSING PROGon 08-04-2018 Protein mass conc HNO ID: [id number] Author: Eleanor KapoorRn) TOMY Franco Service: Nursing [...] car accomp by staff in stable cond. [facility] Protein mass conc HNO ID: [id number] Author: Tracie KapoorRn) TOMY Johnson Service: Nursing [...] note was completed by: Tracie Johnson RN [facility] OPERATIVE NOon 08-04-2018 OPERATIVE NO HNO ID: [id number] Author: Zachary Bauman Service: Pain Management Author [...] DATE: August 04, 2018 TIME: 1:08 PM [facility] PT EDon 08-04-2018 PT ED HNO ID: [id number] Author: Eleanor KapoorRnEstefany Franco RN Service: Nursing [...] Signed By: Eleanor Franco RN In Department: [facility] SURGERY [facility] PT ED HNO ID: [id number] Author: Tracie Johnson RN Service: Nursing Author [...] Signed By: Tracie Johnson RN In Department: [facility] SURGERY [facility] XR FLUOROSCOPYon 08-04-2018 XR FLUOROSCOPY * * *Final Report* * * DATE OF EXAM: Aug 04 2018 1:05PM [facility] 5513 - XR FLUOROSCOPY / PROCEDURE REASON: [...] procedure note for details regarding this procedure. Presiding Steward: [facility] Transcribe Date/Time: Aug 04 2018 1:30P Dictated by : DENISE LUNA MD This examination was interpreted and the report reviewed and electronically signed by: DENISE LUNA MD on Aug 04 2018 1:31PM EST [id number] [facility] HOSPon 07-16-2018 HOSP Patient:Dennis Grande MRN: [...] notes entered within the past 30 days [facility] Rx Refill: eRx Request for I NCRUSE ELLIPTA 62.5 MCG/INH INH AEPBon 12-20-2016 e-scripts messenger refill request [id number]`INCRUSE ELLIPTA 62.5 MCG/INH INH AEPB```1 Inhaler``1 puff dialy```0`09/17/2016`N o date sent`[facility] [address] [place]*`[id number]`00 [id number]`INCRU SE ELLIPTA 62.5 MCG BLST W/DEV Quantity: 30 Blister Instructions: INHALE 1 (ONE) puff BY MOUTH EVERY DAY [facility] Phone: Office Visit: COPDon 017 Documentation of current medications (procedure) Done Invalid Interpretation Code [facility] Phone: Tobacco smoking status NHIS Current Invalid Interpretation Code [facility] Phone: Tobacco use [facility] Former smoker Invalid Interpretation Code [facility] Phone: Lab Report: BNP,B-Type NATRI URETIC PEPTIDEon 11-13-2015 BNP 35.3 pg/mL Invalid Interpretation Code 0-100 [facility] Work Phone: Lab Report: Basic Metabolic Profile (BMP)on 11-13-2015 Anion gap 6 mmol/L Invalid Interpretation Code 5-15 [facility] Work Phone: BUN/Creatinine Ratio 11.4 RATIO Invalid Interpretation Code 10-20 [facility] Phone: Calcium 8.6 mg/dL Invalid Interpretation Code 8.5-10.1 [facility] Work Phone: Chloride 106 mmol/L Invalid Interpretation Code 98-107 [facility] Work Phone: CO2 31.0 mmol/L Invalid Interpretation Code 21.0-32.0 [facility] Work Phone: Creatinine 1.14 mg/dL Invalid Interpretation Code 0.55-1.20 [facility] Work Phone: eGFR (non-black) 52 mL/min/{1.73_m2} Low >60 [facility] Phone: eGFR (non-black) 62 mL/min/{1.73_m2} Invalid Interpretation Code >60 [facility] Phone: Glucose 105 mg/dL Invalid Interpretation Code 70-110 [facility] Work Phone: Potassium 4.1 mmol/L Invalid Interpretation Code 3.5-5.1 [facility] Phone: Sodium 143 mmol/L Invalid Interpretation Code 136-145 [facility] Phone: Urea nitrogen 13 mg/dL Invalid Interpretation Code 7-18 [facility] Work Phone: Office Visit: COPD & OSAon 0 11-13-2015 Smoking cessation education (procedure) yes Invalid Interpretation Code [facility] Phone: Lab Report: Iron+Iron Bindin g Capacityon 08-23-2015 Iron 38 ug/dL Low 50-170 [facility] Phone: iron binding capacity, total 347 ug/dL Invalid Interpretation Code 250-450 [facility] Phone: iron saturation percent, serum 11.0 % Low 15.0-55.0 [facility] Work Phone: Vital Signs Date Time Vital Sign Value Performing Clinician Facility 05-19-2025 15:53-0400 Body temperature 98.1 [degF] Dr. Claudine Mallory DO Work Phone: [facility] 05-19-2025 15:53-0400 Diastolic blood pressure 90 mm[Hg] Dr. Claudine Mallory DO Work Phone: [facility] 05-19-2025 15:53-0400 Heart rate 82 /min Dr. Claudine Mallory DO Work Phone: [facility] 05-19-2025 15:53-0400 Respiratory rate 16 /min Dr. Claudine Mallory DO Work Phone: [facility] 05-19-2025 15:53-0400 SaO2% (BldA) [Mass fraction] 100 % Dr. Claudine Mallory DO Work Phone: [facility] 05-19-2025 15:53-0400 Systolic blood pressure 144 mm[Hg] Dr. Claudine Mallory DO Work Phone: [facility] 05-18-2025 14:10-0400 Body temperature 97.3 [degF] Dr. Claudine Mallory DO Work Phone: [facility] 05-18-2025 14:10-0400 Diastolic blood pressure 73 mm[Hg] Dr. Claudine Mallory DO Work Phone: [facility] 05-18-2025 14:10-0400 Heart rate 89 /min Dr. Claudine Mallory DO Work Phone: [facility] 05-18-2025 14:10-0400 Respiratory rate 16 /min Dr. Claudine Mallory DO Work Phone: [facility] 05-18-2025 14:10-0400 SaO2% (BldA) [Mass fraction] 99 % Dr. Claudine Mallory DO Work Phone: [facility] 05-18-2025 14:10-0400 Systolic blood pressure 127 mm[Hg] Dr. Claudine Mallory DO Work Phone: [facility] 05-17-2025 22:42-0400 Body height 157.[address] Claudine Mallory DO Work Phone: [facility] 05-17-2025 22:42-0400 Body mass index (BMI) [Ratio] 25.9 kg/m2 Dr. Claudine Mallory DO Work Phone: [facility] 05-17-2025 22:42-0400 Body weight 64.[address] Claudine Mallory DO Work Phone: [facility] 10-29-2023 07:17-0400 Body height 157.48 cm [facility] 10-29-2023 07:17-0400 Body mass index (BMI) [Ratio] 26.9 kg/m2 [facility] 10-29-2023 07:17-0400 Body temperature 95.3 [degF] [facility] 10-29-2023 07:17-0400 [facility] 10-29-2023 07:17-0400 Diastolic blood pressure 105 mm[Hg] [facility] 10-29-2023 07:17-0400 Heart rate 59 /min [facility] 10-29-2023 07:17-0400 Respiratory rate 18 /min [facility] 10-29-2023 07:17-0400 Systolic blood pressure 183 mm[Hg] [facility] 10-21-2023 13:51-0500 Body height 157.48 cm [facility] 10-21-2023 13:51-0500 Body weight 63.5 kg Claudine [facility] 10-21-2023 13:51-0500 Heart rate 80 /min [facility] 10-21-2023 13:51-0500 SaO2% (BldA) [Mass fraction] 94 % [facility] 10-09-2023 08:48-0500 Diastolic blood pressure 109 mm[Hg] [facility] 10-09-2023 08:48-0500 Systolic blood pressure 172 mm[Hg] [facility] 10-09-2023 05:53-0500 Body height 162.56 cm [facility] 10-09-2023 05:53-0500 Body mass index (BMI) [Ratio] 24.7 kg/m2 [facility] 10-09-2023 05:53-0500 Body temperature 97.5 [degF] [facility] 10-09-2023 05:53-0500 Body weight 65.37 kg [facility] 10-09-2023 05:53-0500 Heart rate 70 /min [facility] 10-09-2023 05:53-0500 Respiratory rate 18 /min [facility] 10-09-2023 05:53-0500 SaO2% (BldA) [Mass fraction] 93 % [facility] 09-17-2016 10:25-0500 BMI (Body Mass Index) 29.81 kg/m2 Vanesa Hatfield CNP Pulmonary Medicine [facility] Work Phone: 09-17-2016 10:25-0500 Body Temperature 98.2 [degF] Vanesa Hatfield [facility] [place] Work Phone: 09-17-2016 10:25-0500 Body Temperature 98.24 [degF] Vanesa Hatfield [facility] [place] Work Phone: 09-17-2016 10:25-0500 BP Diastolic 93 mm[Hg] Vanesa Hatfield [facility] [place] Work Phone: 09-17-2016 10:25-0500 BP Systolic 135 mm[Hg] Vanesa Hatfield CNP [facility] Work Phone: 09-17-2016 10:25-0500 BSA (Body Surface Area) 1.75 m2 Vanesa Hatfield CNP [facility] Work Phone: 09-17-2016 10:25-0500 Height 157.48 cm Vanesa Hatfield CNP [facility] Work Phone: 09-17-2016 10:25-0500 Pulse (Heart Rate) 67 /min Vanesa Hatfield CNP [facility] Phone: 09-17-2016 10:25-0500 Pulse Oximetry 95 % Vanesa Hatfield CNP [facility] Phone: 09-17-2016 10:25-0500 Respiratory Rate 18 /min Vanesa Hatfield CNP [facility] Phone: 09-17-2016 10:25-0500 Weight 73.94 kg Vanesa Hatfield CNP [facility] Phone: 09-17-2016 10:25-0500 Weight 74.09 kg Vanesa Hatfield CNP [facility] Phone: Encounters Encounter Date Encounter Type Care Provider Facility Start: 05-26-2025 End: 05-26-[address] [facility] Facility:[facility] Start: 05-19-2025 Non-patient / Non-visit Dr. Yordan colby MD -[facility] Work Phone: Start: 05-18-[address] [facility] Facility: [facility] Start: 05-18-2025 Non-patient / Non-visit Connor Castle nd [facility] Start: 05-18-2025 Non-patient / Non-visit Dr. Yordan colby MD -[facility] Work Phone: Start: 05-17-2025 Non-patient / Non-visit Connor Castle nd [facility] Start: 05-17-2025 Non-patient / Non-visit Dr. Kaila Mike MD -[facility] Work Phone: Start: 05-16-2025 End: 05-19-2025 Evaluation and management of inpatient Dr. Yordan Newman MD -[facility] 3 Work Phone: Start: 05-16-2025 ambulatory Claudine Sara Facility: [facility] Start: 05-16-2025 Non-patient / Non-visit Dr. Zachary shields MD -[facility] Work Phone: Start: 05-16-2025 End: 05-16-2025 ambulatory CHASE CRAWFORD Facility:[facility] Start: 03-02-2025 End: 03-02-[address] Claudine Mallory DO Work Phone: -Outpatient Breast Imaging Start: 03-02-2025 End: 03-02-[address] Claudine Mallory DO -[facility] Work Phone: Start: 03-02-2025 End: 03-02-2025 ambulatory Claudine Sara Facility:[facility] Start: 11-02-2024 End: 11-02-2024 ambulatory Claudine Sara Facility:[facility] Start: 07-02-2024 End: 07-02-2024 ambulatory Claudine Mallory Facility:[facility] Start: 11-10-2023 End: 11-10-2023 ambulatory [facility] Work Phone: Start: 11-10-2023 End: 11-10-2023 Patient encounter procedure Claudine Sara [facility] Work Phone: Start: 10-29-2023 End: 10-29-2023 Patient encounter procedure Claudine GARCIA [facility]-Pulmonary Medicine [facility] Work Phone: Start: 10-23-2023 Non-patient / Non-visit Claudine GARCIA [facility] Start: 10-21-2023 End: 10-21-2023 ambulatory Claudine Sara OLS [facility] Work Phone: Start: 10-21-2023 End: 10-21-2023 Patient encounter procedure Claudine GARCIA [facility]-Outpatient Breast Imaging Work Phone: Start: 10-15-2023 End: 10-15-2023 ambulatory Claudine GARCIA [facility] Work Phone: Start: 10-15-2023 End: 10-15-2023 Patient encounter procedure Claudine GARCIA [facility]-Pulmonary Services/Neurology Work Phone: Start: 10-09-2023 End: 10-09-2023 Patient encounter procedure Claudine GARCIA [facility]-Pulmonary Medicine [facility] Work Phone: Start: 08-26-2022 End: 08-26-2022 ambulatory [facility] Work Phone: Start: 08-26-2022 End: 08-26-2022 Patient encounter procedure [facility]-Outpatient Breast Imaging Start: 06-05-2022 End: 06-05-2022 ambulatory [facility] Work Phone: Start: 06-05-2022 End: 06-05-2022 Patient encounter procedure [facility]-Cat Scan, [facility] Start: 12-08-2018 End: 12-08-2018 Patient encounter procedure [facility] Start: 09-24-2018 Patient encounter procedure [facility] Start: 08-04-2018 End: 08-04-2018 Patient encounter procedure [facility] Procedures Date Procedure Procedure Detail Performing [...] IMEN Performed By: #### T SCR, %MADI ####[facility] [id number] [place] [address] Start: 01-14-2021 Antibody screen Comment on above: Order Comment: Specimen Type: BLOOD SPEC IMEN Performed By: #### T SCR ####[facility] [id number] [place] [address] Start: 12-28-2020 Antibody screen Comment on above: Order Comment: Specimen Type: BLOOD SPEC IMEN Performed By: #### T SCR ####[facility] [id number] [place] [address] Start: 12-24-2020 Antibody screen Comment on above: Order Comment: Specimen Type: BLOOD SPEC IMEN Performed By: #### T SCR ####[facility] [id number] [place] [address] Start: 09-17-2016 End: 12-20-2016 BWA Vanesa Hatfield [employer]PER[employer] Work Phone: Start: 09-17-2016 End: 12-20-2016 Follow Up Appt 3 months Vanesa S Leticia er [employer]INTING SUPERVISOR Work Phone: Start: 09-17-2016 End: 12-20-2016 Pulmonary Function Test - complete Vanesa Hatfield [employer]INT[employer] SUPER[employer] Work Phone: Start: 11-13-2015 End: 11-13-2015 *BMP Vanesa Hatfield PAINTING SUPERVISOR Work Phone: Start: 11-13-2015 End: 11-13-2015 BNP Vanesa Hatfield PAINTING SUPERVISOR Work Phone: Start: 11-13-2015 End: 11-13-2015 Follow Up Appt 3 months Vanesa Wildl er PAINTING SUPERVISOR Work Phone: Start: 11-13-2015 End: 11-13-2015 Tte w/doppler, complete Vanesa Wildl er PAINTING SUPERVISOR Work Phone: Start: 08-16-2015 End: 08-24-2015 Iron and Iron binding capacity panel - Serum or Plasma Chemo Arreaga MA H/O: hysterectomy Hx of hysterectomy History of decompres kimo of median nerve History of carpal tunnel release of both wrists Plan of Treatment Date Care Activity Detail Author Start: 06-02-2025 ambulatory Ambulatory Facility:[facility] Start: 05-21-2025 Hepatic function panel [facility] Start: 05-20-2025 Hepatic function panel [facility] Start: 05-19-2025 Patient discharge [facility] Start: 05-19-2025 Hepatic function panel [facility] Start: 05-19-2025 Serum inorganic phosphate measurement [facility] Start: 05-18-2025 Urine test [facility] Start: 05-18-2025 [facility] Start: 05-17-2025 Inhalation therapy procedure [facility] Start: 05-16-2025 End: 05-16-2025 Following clinical pathway protocol [facility] Start: 05-16-2025 Assessment of risk of venous thromboembolism [facility] Start: 05-16-2025 Insertion of catheter into peripheral vein [facility] Start: 05-16-2025 Oxygen therapy [facility] Start: 05-16-2025 Providing care according to standard [facility] Start: 05-16-2025 Provision of activity privileges [facility] Start: 05-16-2025 Referral to gastroenterology service [facility] Start: 05-16-2025 [facility] Start: 05-16-2025 Verification routine [facility] Start: 05-16-2025 Admission procedure [facility] Start: 02-05-2017 End: 02-05-2017 Appointment Appointment [facility] Phone: Start: 09-17-2016 End: 12-20-2016 BWA BWA [facility] Phone: Start: 09-17-2016 End: 12-20-2016 Follow Up Appt 3 months Follow Up Appt 3 months [facility] Phone: Start: 09-17-2016 End: 12-20-2016 Pulmonary Function Test - complete Pulmonary Function Test - complete [facility] Phone: Start: 01-12-2016 End: 01-12-2016 *NIYAH *NIYAH [facility] Phone: Start: 01-12-2016 End: 01-12-2016 *CBC with Differential *CBC with Differential [facility] Phone: Start: 01-12-2016 End: 01-12-2016 *CELIAC Celiac Disease AB [id number] *CELIAC Celiac Disease AB [id number] [facility] Phone: Start: 01-12-2016 End: 01-12-2016 *CMP Complete Metabolic Panel *CMP Complete Metabolic Panel [facility] Phone: Start: 01-12-2016 End: 01-12-2016 C reactive protein (hsCRP) *CRP - C-Reative Protein [facility] Phone: Start: 01-12-2016 End: 01-12-2016 Erythrocyte sedimentation rate *Sedimentation Rate (ESR) [facility] Phone: Start: 01-12-2016 End: 01-12-2016 Ferritin *Ferritin [facility] Phone: Start: 01-12-2016 End: 01-12-2016 Lipid panel [AGGREGATE] *Lipid Profile [facility] Phone: Start: 01-12-2016 End: 01-12-2016 Thyroid stimulating hormone (TSH) *TSH [facility] Phone: Start: 01-12-2016 End: 01-12-2016 Urinalysis complete panel - Urine *UAC- Urinalysis, Complete w/ Micro [facility] Phone: Start: 11-13-2015 End: 11-13-2015 *BMP *BMP [facility] Phone: Start: 11-13-2015 End: 11-13-2015 BNP *Brain Natriuretic Peptide BNP [facility] Phone: Start: 11-13-2015 End: 11-13-2015 Follow Up Appt 3 months Follow Up Appt 3 months [facility] Phone: Start: 11-13-2015 End: 11-13-2015 Tte w/doppler, complete Echo Complete with Color Flow [facility] Phone: Start: 08-16-2015 End: 08-24-2015 Iron and Iron binding capacity panel - Serum or Plasma *IBC Iron & Total Iron Binding Capacity [facility] Phone: Start: 08-15-2015 End: 08-15-2015 CSM CSM [facility] Phone: Start: 08-15-2015 End: 08-15-2015 Follow Up Appt 3 months Follow Up Appt 3 months [facility] Phone: Start: 08-15-2015 End: 08-15-2015 Pulmonary Function Test - complete Pulmonary Function Test - complete [facility] Phone: Start: 08-15-2015 End: 08-15-2015 Pulmonary stress test/simple Pulmonary stress testing; simple (eg, 6-minute walk) [facility] Phone: Alanine aminotransfe rase [Enzymatic activity/volume] in Serum or Plasma [facility] Alanine aminotransfe rase [Enzymatic activity/volume] in Serum or Plasma [facility] Alanine aminotransfe rase [Enzymatic activity/volume] in Serum or Plasma [facility] Albumin [Mass/volume ] in Serum or Plasma [facility] Albumin [Mass/volume ] in Serum or Plasma [facility] Albumin [Mass/volume ] in Serum or Plasma [facility] Alkaline phosphatase [Enzymatic activity/volume] in Serum or Plasma [facility] Alkaline phosphatase [Enzymatic activity/volume] in Serum or Plasma [facility] Alkaline phosphatase [Enzymatic activity/volume] in Serum or Plasma [facility] Anion gap in Serum o r Plasma [facility] Anion gap in Serum o r Plasma [facility] Anion gap in Serum o r Plasma [facility] Bilirubin, total measurement [facility] Bilirubin, total measurement [facility] Bilirubin, total measurement [facility] Bilirubin.direct [Mass/volume] in Serum or Plasma [facility] Bilirubin.direct [Mass/volume] in Serum or Plasma [facility] Bilirubin.direct [Mass/volume] in Serum or Plasma [facility] BUN/Creatinine ratio [facility] BUN/Creatinine ratio [facility] BUN/Creatinine ratio [facility] Calcium [Mass/volume ] in Serum or Plasma [facility] Calcium [Mass/volume ] in Serum or Plasma [facility] Calcium [Mass/volume ] in Serum or Plasma [facility] Carbon dioxide, tota l [Moles/volume] in Central venous blood [facility] Carbon dioxide, tota l [Moles/volume] in Central venous blood [facility] Carbon dioxide, tota l [Moles/volume] in Central venous blood [facility] Creatinine [Mass/vol ume] in Serum or Plasma [facility] Creatinine [Mass/vol ume] in Serum or Plasma [facility] Creatinine [Mass/vol ume] in Serum or Plasma [facility] Erythrocyte mean corpuscular volume determination [facility] Erythrocyte mean corpuscular volume determination [facility] Erythrocyte mean corpuscular volume determination [facility] Exercise tolerance test [facility] Glucose [Mass/volume ] in Serum or Plasma [facility] Glucose [Mass/volume ] in Serum or Plasma [facility] Glucose [Mass/volume ] in Serum or Plasma [facility] Hematocrit [Volume Fraction] of Blood [facility] Hematocrit [Volume Fraction] of Blood [facility] Hematocrit [Volume Fraction] of Blood [facility] Hemoglobin [Mass/vol ume] in Blood [facility] Hemoglobin [Mass/vol ume] in Blood [facility] Hemoglobin [Mass/vol ume] in Blood [facility] Leukocytes [#/volume ] in Blood [facility] Leukocytes [#/volume ] in Blood [facility] Leukocytes [#/volume ] in Blood [facility] Magnesium measurement [facility] Mean corpuscular hem oglobin concentration determination [facility] Mean corpuscular hem oglobin concentration determination [facility] Mean corpuscular hem oglobin concentration determination [facility] Mean corpuscular hem oglobin determination [facility] Mean corpuscular hem oglobin determination [facility] Mean corpuscular hem oglobin determination [facility] Measurement of renal function [facility] Measurement of renal function [facility] Measurement of renal function [facility] Neutrophil count [facility] Neutrophil count [facility] Neutrophil count [facility] Neutrophil percent differential count [facility] Neutrophil percent differential count [facility] Neutrophil percent differential count [facility] Platelets [#/volume] in Blood [facility] Platelets [#/volume] in Blood [facility] Platelets [#/volume] in Blood [facility] Potassium measurement [facility] Potassium measurement [facility] Potassium measurement [facility] Red blood cell count [facility] Red blood cell count [facility] Red blood cell count [facility] Red cell distributio n width determination [facility] Red cell distributio n width determination [facility] Red cell distributio n width determination [facility] Serum chloride measurement [facility] Serum chloride measurement [facility] Serum chloride measurement [facility] Sodium measurement [facility] Sodium measurement [facility] Sodium measurement [facility] Total protein measurement [facility] Total protein measurement [facility] Total protein measurement [facility] Urea nitrogen [Mass/ volume] in Serum or Plasma [facility] Urea nitrogen [Mass/ volume] in Serum or Plasma [facility] Urea nitrogen [Mass/ volume] in Serum or Plasma [facility] Immunizations Immunization Date Immunization Notes Care Provider [facility]25 influenza, high dose seasonal, preservative-free Dr. Claudine Mallory DO Work Phone: [facility] 12-24-2020 tetanus toxoid, redu rachel diphtheria toxoid, and acellular pertussis vaccine, adsorbed [facility] Payers Date Payer Category Payer Self-pay [id number] 2024 Medicare [id number] 2020 Unknown [id number] 2016 Medicare [id number] 2015 Unknown [facility] [id number] 2011 Unknown [id number] Medicaid [id number] Unknown [id number] 2.16.8 [id number] Unknown [id number] 2.16.8 [id number] Unknown [id number] 2.16.8 [id number] Unknown [id number] 2.16.8 [id number] Unknown [id number] 2.16.8 [id number] Unknown [id number] 2.16.8 [id number] Unknown [id number] 2.16.8 [id number] Unknown [id number] 2.16.8 [id number] Unknown [id number] 2.16.8 [id number] Unknown [id number] 2.16.8 [id number] Unknown [id number] 2.16.8 [id number] Unknown [id number] 2.16.8 [id number] Social History Date Type Detail Facility Start: 12-24-2020 End: 10-29-2023 Tobacco smoking status NHIS Unknown if ever smoked [facility] Start: 12-24-2020 Occasional [facility] Start: 12-24-2020 None [facility] Start: 09-10-2019 Alone [facility] Start: 12-24-2020 Cigarettes [facility] Start: 1955 Sex Assigned At Female [facility] Start: 07-02-2024 End: 05-17-2025 Tobacco smoking status NHIS Smokes tobacco daily (finding) [facility] Not [facility] Medical Equipment Procedure Code Equipment Code Equipment Origin al Text Equipment Identifier Dates ERCP (endoscopic retrograde cholangiopancreatog aurelio) STENT,ADVANIX PANC [id number] FDA Start: 05-18-2025 coil interlock vortix fibered IDC erickson wiyot FDA Start: 12-25-2020 coil vortx diamo nd wiyot fiber embolization coil FDA Start: 12-25-2024 coil interlock vortix fibered IDC erickson wiyot FDA Start: 12-25-2020 coil vortx diamo nd wiyot fiber embolization coil FDA Start: 12-25-2024 Goals Date Patient Goal Desired Activity /State Functional Status Date Assessment Result Facility 05-19-2025 Functional status Ambulates [facility] Work Phone: 05-18-2025 Functional status Ambulates [facility] Work Phone: Mental Status Date Assessment Result Facility 05-19-2025 Cognitive function Voice/Name [facility] Work Phone: 05-18-2025 Cognitive function Voice/Name [facility] Work Phone: 05-18-2025 Cognitive function Appropriate [facility] Work Phone: Clinical Notes 12-25-2020 to 05-19-2025 Note Date & Type Note Facility 05-19-2025 Discharge summary [facility] 05-19-2025 Note [facility] Medical Records Department [address] [place] [address] Discharge Summary 05/19/25 1510 MR#: [id number] Acct: [id number] Name: NORA GRANDE Rep #: [id number] : 1955 70 From: Yordan Newman MD PCP: Dr. Claudine Mallory DO Status:ADM IN [facility] Providers Date of Admission: 05/16/25 Date of [...] tablet 1 mg PO QHS anxiety 10/18/16 multivitamin,ad-btuf-qwitxlgh 27 mg-0.4 mg tablet 1 tab PO [...] 1.500 H, Neut (more content not included)... [facility] 05-19-2025 Hospital Discharge instructions Additional Instructions Date of Discharge: 05/19/25 [facility] Work Phone: 05-19-2025 Progress note Note Date/Time May 19, 2025 10:09am [facility] Medical Records Department [address] [place] [address] Progress Note - Hospitalist 05/19/25 1004 MR#: [id number] Acct: [id number] Name: NORA GRANDE Rep #:[id number] : 1955 70 From: Yordan Newman MD PCP: Dr. Claudine Mallory, DO Status:ADM IN Location: [place] [address] Reason for Visit Chief Complaint: Abdominal pain [...] % (Auto) 65.2, Lymph % (Auto) 17.3 L,Navajo % (Auto) 14.9 H, Eos % (Auto) [...] spot images were also obtained. Reading Location: [address] Endo Retro Cholangiopancreatogram 05/18/25 12:46 IMPRESSION: Fluoroscopy was performed for ERCP. 9 spot images were also obtained. Reading Location: [address] Physical Exam Narrative GENERAL: cooperative HEENT: [...] 35 Minutes Charges/Coding Visit Charges Inpatient E&M: 59000 Subs Hosp L2 05/19/25 1009 <Electronically signed by Yordan Newman MD> Cosigner Signature (if applicable): CC: ~ Signed [facility] Work Phone: 1(783) 928-699910-02-2025 Progress note [facility] Medical Records Department [address] [place] [address] Progress Note - Hospitalist 05/19/25 1004 MR#: [id number] Acct: [id number] Name: NORA GRANDE Rep #:[id number] : 1955 70 From: Yordan Newman MD PCP: Dr. Claudine Mallory, DO Status:ADM IN Location: [place] [address] Reason for Visit Chief Complaint: Abdominal pain [...] % (Auto) 65.2, Lymph % (Auto) 17.3 L,[place] % (Auto) 14.9 H, Eos % (Auto) [...] spot images were also obtained. Reading Location: [address] Endo Retro Cholangiopancreatogram 05/18/25 12:46 IMPRESSION: Fluoroscopy was performed for ERCP. 9 spot images were also obtained. Reading Location: [address] Physical Exam Narrative GENERAL: cooperative HEENT: [...] 35 Minutes Charges/Coding Visit Charges Inpatient E&M: 26669 Subs Hosp L2 05/19/25 1009 Cosigner Signature (if applicable): CC: ~ Signed [facility]10-01-2025 Consult note Author Jorge Og [facility] Note Date/Time May 18, 2025 3: 13pm [facility] Medical Records Department [address] [place] [address] Anesthesia Postop Eval II 05/18/25 1513 MR#: [id number] Acct: [id number] Name: NORA GRANDE Rep #:[id number] : 1955 70 From: Jorge Peguero PCP: Dr. Claudine Mallory, DO Status:ADM IN Y Race: C Location: [place] [address] Anesthesia Postop Eval I Sum Postop Eval [...] MD Cosigner Signature: Date CC: ~ Signed [facility] Work Phone: 1([phone]) 683-186310-01-2025 Consult note Author Connor Tadeo [facility] Note Date/Time May 18, 2025 2: 17pm [facility] Medical Records Department [address] [place] [address] Consultation - GI 05/17/251948 MR#: [id number] Acct: [id number] Name: NORA GRANDE Rep #:[id number] : 1955 70 From: Connor Tadeo DO PCP: Dr. Claudine Mallory DO Status:ADM IN Location: [place] [address] HPI Consult Data Date of Consult: 05/17/25 [...] Small benign-appearing hepatic cysts MRCP is pending [facility] Medical History Hx of emotional problems Hormone deficiency Back problem HTN (hypertension) History of skin cancer CHF (congestive heart failure) Fibromyalgia Tobacco use Home Medications ?Medication ?Instructions ?Recorded ?Last Taken ?Type clonazepam 1 mg tablet 1 mg PO QHS anxiety 10/18/16 Unknown History multivitamin,fx-nsdz-brthmuph 27 1 tab PO DAILY supple ment [...] % (Auto) 57.9, Lymph % (Auto) 25.6, [place] % (Auto) 13.6 H, Eos % (Auto) [...] is identified. Charges/Coding Visit Charges Inpatient E&M: 05271 Init Hosp L3 05/18/25 1417 <Electronically signed by Connor Tadeo DO> Cosigner Signature (if applicable): CC: Dr. Claudine Mallory DO~ Signed [facility] Work Phone: 1(103) 837-401710-01-2025 Consult note Author Carlo Arias [facility] Note Date/Time May 18, 2025 2: 06pm [facility] Medical Records Department [address] [place] [address] Anesthesia Postop Eval I 05/18/25 1405 MR#: [id number] Acct: [id number] Name: NORA GRANDE Rep #:[id number] : 1955 70 From: Carlo Arias PCP: Dr. Claudine Mallory DO Status:ADM IN Y Race: C Location: [place] [address] Anesthesia: Postop Eval I Current Vital Signs [...] Carlo Torresigndmitry Signature: Date CC: ~ Signed [facility] Work Phone: 1(451) 558-864010-01-2025 Consult note [facility] Medical Records Department [address] [place] [address] Anesthesia Postop Eval II 05/18/25 1513 MR#: [id number] Acct: [id number] Name: NORA GRANDE Rep #:[id number] : 1955 70 From: Jorge Peguero PCP: Dr. Claudine Mallory, DO Status:ADM IN Y Race: C Location: [place] [address] Anesthesia Postop Eval I Sum Postop Eval [...] MD Cosigner Signature: Date CC: ~ Signed [facility]10-01-2025 Consult note Author Jorge Og [facility] Note Date/Time May 18, 2025 12 :46pm [facility] Medical Records Department [address] [place] [address] Pre-Anesthesia Evaluation 05/18/25 1238 MR#: [id number] Acct: [id number] Name: NORA GRANDE Rep #:[id number] : 1955 70 From: Jorge Peguero PCP: Dr. Claudine Mallory, DO Status:ADM IN Y Race: C Location: [place] [address] ASA Classification* ASA Classification ASA Classification: 3 [...] Procedure(s): ERCP Anesthesia History Anesthesia History - automation tester: Anesthesia History - automation tester Hx Hospitalization Yes 09/10/19 13:04 Any Problems [...] take am of surgery PONV PONV - automation tester: PONV - automation tester Female HX of Motion Sickness HX of N/V After Surgery Non-Smoker Duration of Surgery greater than 60 minutes Number of Risk Factors PONV Score Height & Weight Height & Weight: Anesthesia: Height & Weight Height 5 ft 2 in 05/17/25 22:42 Weight: 64.2 kg 05/17/25 22:42 Body Mass Index (BMI) 25.9 05/17/25 22:42 Respiratory Assessment Respiratory Assessment - automation tester: Respiratory Tract Infection Hx - automation tester Hx Respiratory Tract Infection No 05/18/25 01:02 STOP Sleep Apnea STOP Sleep Apnea - automation tester: STOP Sleep Apnea - automation tester Hx Hypertension Yes 05/16/25 22:11 Hx Sleep [...] Tobacco Use History Tobacco Use History - automation tester: Tobacco Use History - automation tester Tobacco Use Cigarettes 12/24/20 17:14 Smoking Status Current every day smoker 05/17/25 07:49 Hx Tobacco Use Yes 05/16/25 22:11 Years Smoking Packs Smoked per Day Smoking Cessation Date was within the last 15 years Hx Smoking Cessation Date Hx Smoking Cessation Counseling Hematologic Medial History Hematologic Hx - automation tester: Hematologic 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 - 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 Hx of Blood Transfusion No 05/16/25 22:11 [...] confused, unrespo /Reproduction History /Reproductive History - automation tester: /Reproductive Hx- automation tester Hx Now No 05/18/25 01:02 Gestational Age [...] mls @ 15 mls/hr 05/16/25 22:05 IV .[id number] PRN Saline Flush Sodium Chloride 250 mls @ 15 mls/hr 05/16/25 22:05 IV .[id number] PRN Additional IVPB Infusion Ketorolac Tromethamine 15 [...] mg PO QHS anxiety 10/18/16 Unknown History multivitamin,jw-ogyy-xxzbwipp 27 1 tab PO DAILY supple ment [...] Jorge Sanchez Signature: Date CC: ~ Signed [facility] Work Phone: 1(451) 831-895010-01-2025 Consult note [facility] Medical Records Department [address] [place] [address] Consultation - GI 05/17/251948 MR#: [id number] Acct: [id number] Name: NORA GRANDE Rep #:[id number] : 1955 70 From: Connor Friend DO PCP: Dr. Claudine Mallory DO Status:ADM IN Location: [place] [id number] HPI Consult Data Date of Consult: 05/17/25 [...] Small benign-appearing hepatic cysts MRCP is pending [facility] Medical History Hx of emotional problems Hormone deficiency Back problem HTN (hypertension) History of skin cancer CHF (congestive heart failure) Fibromyalgia Tobacco use Home Medications ?Medication ?Instructions ?Recorded ?Last Taken ?Type clonazepam 1 mg tablet 1 mg PO QHS anxiety 10/18/16 Unknown History multivitamin,ka-skfi-crwzgftc 27 1 tab PO DAILY supple ment [...] % (Auto) 57.9, Lymph % (Auto) 25.6, [place] % (Auto) 13.6 H, Eos % (Auto) [...] is identified. Charges/Coding Visit Charges Inpatient E&M: 68932 Init Hosp L3 05/18/25 1417 Cosigner Signature (if applicable): CC: Dr. Claudine Mallory, DO~ Signed [facility]10-01-2025 Consult note [facility] Medical Records Department [address] [place] [address] Anesthesia Postop Eval I 05/18/251404 MR#: [id number] Acct: [id number] Name: NORA GRANDE Rep #:[id number] : 1955 70 From: Carlo Arias PCP: Dr. Claudine Mallory DO Status:ADM IN Y Race: C Location: [place] [address] Anesthesia: Postop Eval I Current Vital Signs [...] Arias Cosigner Signature: Date CC: ~ Signed [facility]10-01-2025 Radiology Diagnostic study note [facility] Imaging Services [address] [place], [place] [address] ERCP Biliary/Pancreas MR#: [id number] Acct: [id number] Name: NORA GRANDE Rep #: [id number] : 1955 F 70 From: Jonathan Ibrahim MD PCP: Dr. Claudine Mallory DO Status: ADM IN Study:ERCP Biliary/Pancreas Date of Exam: 05/18/25 Exam# [id number] Ordering Dr: Ashlie Tadeo DO PROCEDURE: ERCP BILIARY/PANCREAS; O.R. FLUORO FOR C-ARM 05/18/2025 REASON FOR EXAM: ERCP TECHNIQUE: Procedure Code: RADERCP; RADORFL_C_ARM Modality: DX Procedure: ERCP BILIARY/PANCREAS; O.R. FLUORO FOR C-ARM Fluoroscopy time: 70.5 seconds. Dose: 13.06 mGy. RAD/ERCP Biliary/Pancreas IMPRESSION: Fluoroscopy was performed for ERCP. 9 spot images were also obtained. Reading Location: [address] CC: Dr. Claudine Mallory DO; Connor Tadeo DO ~ Presiding Steward: Signed [facility]10-01-2025 Radiology Diagnostic study note [facility] Imaging Services [address] [place], [place] [address] O.R. Fluoro for C-Arm MR#: [id number] Acct: [id number] Name: NORA GRANDE Rep #: [id number] : 1955 F 70 From: Jonathan Ibrahim MD PCP: Dr. Claudine Mallory DO Status: ADM IN Study:O.R. Fluoro for C-Arm Date of Exam: 05/18/25 Exam# [id number] Ordering Dr: Ashlie Tadeo DO PROCEDURE: ERCP BILIARY/PANCREAS; O.R. FLUORO FOR C-ARM 05/18/2025 REASON FOR EXAM: ERCP TECHNIQUE: Procedure Code: RADERCP; RADORFL_C_ARM Modality: DX Procedure: ERCP BILIARY/PANCREAS; O.R. FLUORO FOR C-ARM Fluoroscopy time: 70.5 seconds. Dose: 13.06 mGy. RAD/O.R. Fluoro for C-Arm IMPRESSION: Fluoroscopy was performed for ERCP. 9 spot images were also obtained. Reading Location: [id number] CC: Dr. Claudine Mallory DO; Connor Tadeo DO ~ Presiding Steward: Signed [facility]10-01-2025 Procedure note [facility] Medical Records Department [address] [place] [address] ERCP Report MR#: [id number] Acct: [id number] Name: NORA GRANDE Rep #:[id number] : [...] hours 26 minutes 13 seconds Findings: The evp managing director film was normal. The esophagus was successfully [...] main duct. Procedure Code(s): --- Professional --- 20333, Endoscopic retrograde cholangiopancreatography (ERCP); with placement of endoscopic stent into biliary or pancreatic duct, including pre- and post-dilation and guide wire passage, when performed, including sphincterotomy, when performed, each stent 87118, 51, Endoscopic retrograde cholangiopancreatography (ERCP); with removal of calculi/debris from biliary/pancreatic duct(s) 63516, 59, Endoscopic retrograde cholangiopancreatography (ERCP); with sphincterotomy/papillotomy 98691, 26, Combined endoscopic catheterization of the biliary and pancreatic ductal systems, radiological supervision and interpretation CPT copyright 2021 [employer]. All rights reserved. The codes documented in this report are preliminary and upon scrap burner review may be revised to meet current compliance requirements. Connor Tadeo DO 05/18/2025 1:40:34 PM This report has been signed electronically. Number of Addenda: 0 Note Initiated On: 05/18/2025 12:38 PM 05/18/25 1340 Date _ Connor Tadeo DO Cosigner Signature: Date (if indicated) CC: Dr. Claudine Mallory DO; Connor Tadeo DO ~ Date Dictated: 05/18/25 1238 Date Transcribed: Presiding Steward: RF Signed [facility]10-01-2025 Procedure note [facility] Medical Records Department [address] [place] [address] Provation Physician Letter MR#: [id number] Acct: [id number] Name: NORA GRANDE Rep #:[id number] : 1955 70 From: Connor Tadeo DO PCP: Dr. Claudine Mallory DO Status:ADM IN 05/18/2025 Claudine Mallory [address] [facility] [place] [address] [place] [address] Re : ERCP procedure for [place] [...] DO Cosigner Signature: Date (if indicated) CC: FRENCH BINDER-C Christina Mendez; FRENCH BINDER-C Rebecca Singh; Dr. Yordan Newman MD; Dr. Boston DO; Dr. Jaylen Mike MD; Dr. Zachary Coffey MD; Dr. Danilo Salvador MD; GREGOR Hernandez; Connor Tadeo DO ~ Date Dictated: 05/18/25 1238 Date Transcribed: Presiding Steward: RF Signed [facility]10-01-2025 Consult note [facility] Medical Records Department [address] [place] [address] Pre-Anesthesia Evaluation 05/18/25 1238 MR#: [id number] Acct: [id number] Name: NORA GRANDE Rep #:[id number] : 1955 70 From: Jorge Peguero PCP: Dr. Claudine Mallory DO Status:ADM IN Y Race: C Location: [place] [address] ASA Classification* ASA Classification ASA Classification: 3 [...] Procedure(s): ERCP Anesthesia History Anesthesia History - automation tester: Anesthesia History - automation tester Hx Hospitalization Yes 09/10/19 13:04 Any Problems [...] take am of surgery PONV PONV - automation tester: PONV - automation tester Female HX of Motion Sickness HX of N/V After Surgery Non-Smoker Duration of Surgery greater than 60 minutes Number of Risk Factors PONV Score Height & Weight Height & Weight: Anesthesia: Height & Weight Height 5 ft 2 in 05/17/25 22:42 Weight: 64.2 kg 05/17/25 22:42 Body Mass Index (BMI) 25.9 05/17/25 22:42 Respiratory Assessment Respiratory Assessment - automation tester: Respiratory Tract Infection Hx - automation tester Hx Respiratory Tract Infection No 05/18/25 01:02 STOP Sleep Apnea STOP Sleep Apnea - automation tester: STOP Sleep Apnea - automation tester Hx Hypertension Yes 05/16/25 22:11 Hx Sleep [...] Tobacco Use History Tobacco Use History - automation tester: Tobacco Use History - automation tester Tobacco Use Cigarettes 12/24/20 17:14 Smoking Status Current every day smoker 05/17/25 07:49 Hx Tobacco Use Yes 05/16/25 22:11 Years Smoking Packs Smoked per Day Smoking Cessation Date was within the last 15 years Hx Smoking Cessation Date Hx Smoking Cessation Counseling Hematologic Medial History Hematologic Hx - automation tester: Hematologic Medical Hx - 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 Hx of Blood Transfusion No 05/16/25 22:11 [...] confused, unrespo /Reproduction History /Reproductive History - automation tester: /Reproductive Hx- automation tester Hx Now No 05/18/25 01:02 Gestational Age [...] mls @ 15 mls/hr 05/16/25 22:05 IV .[id number] PRN Saline Flush Sodium Chloride 250 mls @ 15 mls/hr 05/16/25 22:05 IV .[id number] PRN Additional IVPB Infusion Ketorolac Tromethamine 15 [...] mg PO QHS anxiety 10/18/16 Unknown History multivitamin,kh-dnoo-wiiggjqb 27 1 tab PO DAILY supple ment [...] MD Cosigner Signature: Date CC: ~ Signed [facility]10-01-2025 Progress note Author Yordan Newman [facility] Note Date/Time May 18, 2025 8: 34am [facility] Medical Records Department [address] [place] [address] Progress Note - Hospitalist 05/18/25 0827 MR#: [id number] Acct: [id number] Name: NORA GRANDE Rep #:[id number] : 1955 70 From: Yordan Newman MD PCP: Dr. Claudine Mallory, DO Status:ADM IN Location: [place] [address] Reason for Visit Chief Complaint: Abdominal pain [...] masses, possibly age related . Reading Location: [place] [address] Physical Exam Narrative GENERAL: cooperative HEENT: Atraumatic; [...] 40 Minutes Charges/Coding Visit Charges Inpatient E&M: 92026 Subs Hosp L2 05/18/25 0834 <Electronically signed by Yordan Newman MD> Cosigner Signature (if applicable): CC: ~ Signed [facility] Work Phone: 1(577) 360-405010-01-2025 Progress note [facility] Medical Records Department [address] [place] [address] Progress Note - Hospitalist 05/18/25826 MR#: [id number] Acct: [id number] Name: NORA GRANDE Rep #:[id number] : 1955 70 From: Yordan Newman MD PCP: Dr. Claudine Mallory, DO Status:ADM IN Location: [facility] EZ581-7 Reason for Visit Chief Complaint: Abdominal pain [...] masses, possibly age related . Reading Location: [place] [address] Physical Exam Narrative GENERAL: cooperative HEENT: Atraumatic; [...] 40 Minutes Charges/Coding Visit Charges Inpatient E&M: 73944 Subs Hosp L2 05/18/25 0834 Cosigner Signature (if applicable): CC: ~ Signed [facility]09-30-2025 Progress note Author Jaylen Mike [facility] Note Date/Time May 17, 2025 11:19am [facility] Medical Records Department [address] [place] [address] Progress Note - Hospitalist 05/17/25 1114 MR#: [id number] Acct: [id number] Name: NORA GRANDE Rep #:[id number] : 1955 70 From: Jaylen franco MD PCP: Dr. Claudine Mallory, DO Status:ADM IN Location: [facility] YQ626-5 Subjective Subjective Abdominal pain is improved today. [...] % (Auto) 65.6, Lymph % (Auto) 21.9, [place] % (Auto) 10.2 H, Eos % (Auto) [...] Clarity Clear, Urine pH 6.0, Ur Specific [place] 1.010, Urine Protein 30 H, Urine Glucose [...] % (Auto) 57.9, Lymph % (Auto) 25.6, [place] % (Auto) 13.6 H, Eos % (Auto) [...] normal. Cholelithiasis. No definitive choledocholithiasis. Reading Location: [place] [address] Gallbladder Ultrasound 05/16/25 16:59 IMPRESSION: Cholelithiasis. No evidence for acute cholecystitis. Mild intra and extrahepatic biliary ductal dilatation, and prominence of the main pancreatic duct. No discrete obstructing mass or choledocholithiasis appreciated. MRCP may be helpful. Mild diffuse hepatic steatosis. Small benign-appearing hepatic cysts. Reading Location: [facility] Physical Exam Narrative General: Alert, Oriented x3, [...] DVT: Lovenox Charges/Coding Visit Charges Inpatient E&M: 67979 Subs Hosp L2 05/17/25 1119 <Electronically signed by Jaylen Mike MD> Cosigner Signature (if applicable): CC: ~ Signed [facility] Work Phone: 1(350) 118-608009-30-2025 Progress note [facility] Medical Records Department [address] [place] [address] Progress Note - Hospitalist 05/17/25 1114 MR#: [id number] Acct: [id number] Name: NORA GRANDE Rep #:[id number] : 1955 70 From: Jaylen franco MD PCP: Dr. Claudine Mallory, DO Status:ADM IN [facility] Subjective Subjective Abdominal pain is improved today. [...] Neut %(Auto) 65.6, Lymph % (Auto) 21.9, [place] % (Auto) 10.2 H, Eos % (Auto) [...] Clarity Clear, Urine pH 6.0, Ur Specific [place] 1.010, Urine Protein 30 H, Urine Glucose [...] % (Auto) 57.9, Lymph % (Auto) 25.6, [place] % (Auto) 13.6 H, Eos % (Auto) [...] normal. Cholelithiasis. No definitive choledocholithiasis. Reading Location: [place] [address] Gallbladder Ultrasound 05/16/25 16:59 IMPRESSION: Cholelithiasis. No evidence for acute cholecystitis. Mild intra and extrahepatic biliary ductal dilatation, and prominence of the main pancreatic duct. No discrete obstructing mass or choledocholithiasis appreciated. MRCP may be helpful. Mild diffuse hepatic steatosis. Small benign-appearing hepatic cysts. Reading Location: [facility] Physical Exam Narrative General: Alert, Oriented x3, [...] DVT: Lovenox Charges/Coding Visit Charges Inpatient E&M: 62288 Subs Hosp L2 05/17/25 1119 Cosigner Signature (if applicable): CC: ~ Signed [facility]09-30-2025 Discharge summary Author Tamara Neal [facility] Note Date/Time May 17, 2025 12:25am [facility] Medical Records Department [address] [place] [address] Emergency Department Summary 05/16/25 MR#: [id number] Acct: [id number] Name: NORA GRANDE Rep #:[id number] : 1955 70 From: Tamara Neal MD PCP: Dr. Claudine Mallory, DO Status:ADM IN Location: [facility] ZZ958-3 HPI HPI - GI History of Present [...] mg PO QHS anxiety 10/18/16 Unknown History multivitamin,ii-iyil-nvfcqtxm 27 1 tab PO DAILY supple ment [...] No guarding or rebound. : done with painter apprentice at bedside. No hemorrhoids or fissures noted. [...] positive. Given these findings, discussed with on-call housesmith, Dr. Tadeo, whostates with the abdominal pain and no other findings and MRCP is warranted. Discussed with patient and she is agreeable with admission[facility]. [facility] impression: GI bleed [...] % (Auto) 65.6 Lymph % (Auto) 21.9 [place] % (Auto) 10.2 H Eos % (Auto) [...] Clarity Clear Urine pH 6.0 Ur Specific [place] 1.010 Urine Protein 30 H Urine Glucose [...] normal. Cholelithiasis. No definitive choledocholithiasis. Reading Location: [place] [address] Gallbladder Ultrasound 05/16/25 16:59 IMPRESSION: Cholelithiasis. No evidence for acute cholecystitis. Mild intra and extrahepatic biliary ductal dilatation, and prominence of the main pancreatic duct. No discrete obstructing mass or choledocholithiasis appreciated. MRCP may be helpful. Mild diffuse hepatic steatosis. Small benign-appearing hepatic cysts. Reading Location: [id number] Discharge Plan Disposition Disposition: Acute Care Hospital [facility] Discharge Date/Time: 05/16/25 21:57 What to do if you have Problems For any increased pain, shortness of breath, bleeding, nausea or vomiting, chestpain, or any unexpected problems, contact your Primary Care Provider. Call [facility] ([phone]) or report to the closest Emergency Room. Call 911 if necessary. 05/17/25 0025 <Electronically signed by Tamara Neal MD> Cosigner Signature (if applicable): CC: Dr. Claudine Mallory, DO ~ Signed [facility] Work Phone: 1(806) 392-879209-30-2025 Progress note Author Christina Mendez [facility] Note Date/Time May 16, 2025 11:46pm [facility] Medical Records Department [address] [place] [address] Progress Note - Hospitalist 05/16/257 MR#: [id number] Acct: [id number] Name: NORA GRANDE Rep #:[id number] : 1955 70 From: Christina Joyner PCP: Dr. Claudine Mallory, DO Status:ADM IN Location: [place] [address] Hospitalist Note Pt admitted from ER without [...] Cosigner Signature (if applicable): cc: ~* Signed [facility] Work Phone: 1(278) 402-405909-30-2025 Discharge summary [facility] Medical Records Department [address] [place] [address] Emergency Department Summary 05/16/25 MR#: [id number] Acct: [id number] Name: NORA GRANDE Rep #:[id number] : 1955 70 From: Tamara Neal MD PCP: Dr. Claudine Sara, DO Status:ADM IN Location: MS3 FR922-7 HPI HPI - GI History of Present [...] mg PO QHS anxiety 10/18/16 Unknown History multivitamin,nv-cnbv-rzdttjkr 27 1 tab PO DAILY supple ment [...] No guarding or rebound. : done with painter apprentice at bedside. No hemorrhoids or fissures noted. [...] positive. Given these findings, discussed with on-call housesmith, Dr. Tadeo, whostates with the abdominal pain and no other findings and MRCP is warranted. Discussed with patient and she is agreeable with admission. [facility]. Clinical impression: GI bleed [...] % (Auto) 65.6 Lymph % (Auto) 21.9 [place]ajo % (Auto) 10.2 H Eos % (Auto) [...] Clarity Clear Urine pH 6.0 Ur Specific Boone 1.010 Urine Protein 30 H Urine Glucose [...] normal. Cholelithiasis. No definitive choledocholithiasis. Reading Location: [place] [address] Gallbladder Ultrasound 05/16/25 16:59 IMPRESSION: Cholelithiasis. No evidence for acute cholecystitis. Mild intra and extrahepatic biliary ductal dilatation, and prominence of the main pancreatic duct. No discrete obstructing mass or choledocholithiasis appreciated. MRCP may be helpful. Mild diffuse hepatic steatosis. Small benign-appearing hepatic cysts. Reading Location: [facility] Discharge Plan Disposition Disposition: Acute Care Hospital [facility] Discharge Date/Time: 05/16/25 21:57 What to do if you have Problems For any increased pain, shortness of breath, bleeding, nausea or vomiting, chestpain, or any unexpected problems, contact your Primary Care Provider. Call [facility] ([phone]) or report tothe closest Emergency Room. Call 911 if necessary. 05/17/25 0025 Cosigner Signature (if applicable): CC: Dr. Claudine Mallory, DO ~ Signed [facility]09-29-2025 Progress note [facility] Medical Records Department [address] [facility] [place] [address] Progress Note - Hospitalist 05/16/252336 MR#: [id number] Acct: [id number] Name: NORA GRANDE Rep #:[id number] : 1955 70 From: Christina Joyner PCP: Dr. Claudine Mallory, Status:ADM IN Location: [place] [address] Hospitalist Note Pt admitted from ER without [...] Cosigner Signature (if applicable): cc: ~* Signed [facility]09-29-2025 Evaluation note* Diagnosis Onset Date Resolution [...] pack years chronic May 16, 2025 8:26pm [facility] Work Phone: 1(936) 325-121409-29-2025 History and physical note Author Zachary Coffey [facility] Note Date/Time May 16, 2025 8:26pm [facility] Medical Records Department [address] [place] [address] History & Physical Exam 05/16/252006 MR#: [id number] Acct: [id number] Name: NORA GRANDE Rep #:[id number] : [...] 1 mg PO QHS 10/18/16 Unknown History multivitamin,bx-scml-wcegikzx 27 1 tab PO DAILY Unknown History [...] % (Auto) 65.6, Lymph % (Auto) 21.9, [place] % (Auto) 10.2 H, Eos % (Auto) [...] Clarity Clear, Urine pH 6.0, Ur Specific Boone 1.010, Urine Protein 30 H, Urine Glucose [...] normal. Cholelithiasis. No definitive choledocholithiasis. Reading Location: [place] [address] Gallbladder Ultrasound 05/16/25 16:59 IMPRESSION: Cholelithiasis. No evidence for acute cholecystitis. Mild intra and extrahepatic biliary ductal dilatation, and prominence of the main pancreatic duct. No discrete obstructing mass or choledocholithiasis appreciated. MRCP may be helpful. Mild diffuse hepatic steatosis. Small benign-appearing hepatic cysts. Reading Location: [facility] Assessment & Plan Assessment/Plan (1) COPD (chronic [...] full verified Charges/Coding Visit Charges Inpatient E&M: 71207 Init Hosp L2 05/16/252025 <Electronically signed by Zachary Coffey MD> Cosigner Signature (if applicable): CC: Dr. Claudine Mallory DO; Dr. Zachary Coffey MD~ Signed [facility] Work Phone: 1(558) 669-317209-29-2025 History and physical note [facility] Medical Records Department [address] [place] [address] History & Physical Exam 05/16/252006 MR#: [id number] Acct: [id number] Name: NORA GRANDE Rep #:[id number] : 1955 70 From: Zachary Cofefy MD PCP: Dr. Claudine Mallory DO Status:REG [...] 1 mg PO QHS 10/18/16 Unknown History multivitamin,yo-nflx-amrmlkzb 27 1 tab PO DAILY Unknown History [...] Neut %(Auto) 65.6, Lymph % (Auto) 21.9, [place] % (Auto) 10.2 H, Eos % (Auto) [...] Clarity Clear, Urine pH 6.0, Ur Specific [place] 1.010, Urine Protein 30 H, Urine Glucose [...] normal. Cholelithiasis. No definitive choledocholithiasis. Reading Location: [place] [address] Gallbladder Ultrasound 05/16/25 16:59 IMPRESSION: Cholelithiasis. No evidence for acute cholecystitis. Mild intra and extrahepatic biliary ductal dilatation, and prominence of the main pancreatic duct. No discrete obstructing mass or choledocholithiasis appreciated. MRCP may be helpful. Mild diffuse hepatic steatosis. Small benign-appearing hepatic cysts. Reading Location: [id number] Assessment & Plan Assessment/Plan (1) COPD (chronic [...] full verified Charges/Coding Visit Charges Inpatient E&M: 15433 Init Hosp L2 05/16/252025 Cosigner Signature (if applicable): CC: Dr. Claudine Mallory, DO; Dr. Zachary Coffey MD~ Signed [facility]09-29-2025 [facility] Medical Records Department [address] [place] [address] History Physical Exam 05/16/252006 MR#: [id number] Acct: [id number] Name: NORA GRANDE Rep #: [id number] : 1955 70 From: Zachary Coffey MD [...] mg PO QHS 10/18/16 Unknown Histo ry multivitamin,px-yvvy-meulaaux 27 1 tab PO DAILY 10/18/16 Unknown [...] 05/16/25 16:40 05/16/25 17:00 (more content not included)...[facility]09-29-2025 Radiology Diagnostic study note [facility] Imaging Services [address] [place] [address] Gallbladder MR#: [id number] Acct: [id number] Name: NORA GRANDE Rep #: [id number] : 1955 F 70 From: Alan Rubio MD PCP: Dr. Claudine Mallory, DO Status: REG ER Study:Gallbladder Date of Exam: 05/16/25 Exam# [id number] Ordering Dr: Dmitry Neal MD PROCEDURE: US [...] steatosis. Small benign-appearing hepatic cysts. Reading Location: [id number] CC: Dr. Tamara Neal MD; Dr. Claudine Mallory DO ~ Presiding Steward: Signed [facility]09-29-2025 Radiology Diagnostic study note [facility] Imaging Services [address] [place] [address] [id number] Abdomen/Pelvis W IV Cont ONLY MR#: [id number] Acct: [id number] Name: NORA GRANDE Rep #: [id number] : 1955 F 70 From: Marvin Weems MD PCP: Dr. Claudine Mallory DO Status: REG ER Study:Abdomen/Pelvis W IV Cont ONLY Date of E xam: 05/16/25 Exam# [id number] Ordering Dr: Dmitry Neal MD PROCEDURE: ABDOMEN/PELVIS [...] normal. Cholelithiasis. No definitive choledocholithiasis. Reading Location: [place] [address] CC: Dr. Tamara Neal MD; Dr. Claudine Mallory DO ~ Presiding Steward: Signed [facility]09-29-2025 Discharge summary Author Tamara Val [facility] Note Date/Time May 17, 2025 12:25am [facility] Medical Records Department [address] [place] [address] Emergency Department Summary 05/16/25 MR#: [id number] Acct: [id number] Name: NORA GRANDE Rep #:[id number] : 1955 70 From: Tamara Neal MD PCP: Dr. Claudine Mallory DO Status:ADM IN Location: [place] [id number] HPI HPI - GI History of Present [...] mg PO QHS anxiety 10/18/16 Unknown History multivitamin,xc-vnzd-edgqimhw 27 1 tab PO DAILY supple ment [...] No guarding or rebound. : done with painter apprentice at bedside. No hemorrhoids or fissures noted. [...] positive. Given these findings, discussed with on-call housesmith, Dr. Tadeo, whostates with the abdominal pain and no other findings and MRCP is warranted. Discussed with patient and she is agreeable with admission. [facility]. Clinical impression: GI bleed [...] % (Auto) 65.6 Lymph % (Auto) 21.9 [place] % (Auto) 10.2 H Eos % (Auto) [...] Clarity Clear Urine pH 6.0 Ur Specific [place] 1.010 Urine Protein 30 H Urine Glucose [...] normal. Cholelithiasis. No definitive choledocholithiasis. Reading Location: [place] [address] Gallbladder Ultrasound 05/16/25 16:59 IMPRESSION: Cholelithiasis. No evidence for acute cholecystitis. Mild intra and extrahepatic biliary ductal dilatation, and prominence of the main pancreatic duct. No discrete obstructing mass or choledocholithiasis appreciated. MRCP may be helpful. Mild diffuse hepatic steatosis. Small benign-appearing hepatic cysts. Reading Location: [id number] Discharge Plan Disposition Disposition: Acute Care Hospital [facility] Discharge Date/Time: 05/16/25 21:57 What to do if you have Problems For any increased pain, shortness of breath, bleeding, nausea or vomiting, chestpain, or any unexpected problems, contact your Primary Care Provider. Call [facility] ([phone]) or report to the closest Emergency Room. Call 911 if necessary. 05/17/255 <Electronically signed by Tamara Neal MD> Cosigner Signature (if applicable): CC: Dr. Claudine Mallory, DO ~ Signed [facility] Work Phone: 1(259) 513-286709-29-2025 NoteHNO ID: [id number] Author: CHASE CRAWFORD MD Service: ? Author Type: Physician Type: Progress Notes Filed: 05/16/2025 13:50 Note Text: Express Care Triage Note: Patient presents to the express care with complaint of left abdominal pain, blood in stool, and cough over the last 4 days. She is uncomfortable with transitions. She chooses ER evaluation and will go to [facility] ED.[facility]03-07-2024 Procedure [facility]01-11-2022 [facility]10-05-2021 [facility]08-03-2021 [facility]07-07-2021 [facility] 02-20-2021 [facility]07-06-2021 [facility]06-05-2021 [facility]06-05-2021 NoteHNO ID: [id number] Author: Interface Note Service: ? Author Type: ? Type: Progress Notes Filed: 01/20/2021 5:50 AM Note Text: Epic Scheduled Downtime: 01/20/2021 1:00:00 AM to 01/20/2021 5:27:00 [facility]06-04-2021 [facility]06-04-2021 [facility]06-03-2021 [facility]06-03-2021 Note [facility]06-02-2021 [facility] 2021 [facility]06-02-2021 [facility]06-02-2021 [facility]06-01-2021 [facility]06-01-2021 [facility]05-31-2021 [facility]05-31-2021 [facility]05-30-2021 Note [facility]05-30-2021 [facility] 01-13-2021 [facility]05-28-2021 [facility]05-27-2021 [facility]05-26-2021 [facility]05-26-2021 NoteHNO ID: [id number] Author: Ranjan Herrera MD Service: Orthopaedic Surgery Author Type: Physician Type: Plan of Care Filed: 01/10/2021 7:06 AM Note Text: OK for discharge. Hip repair at a later date. Continue nonoperative treatment R [facility]05-25-2021 NoteHNO ID: [id number] Author: Castillo Schaefer RN Service: Nursing Author Type: Registered Nurse Type: Nursing Progress Note Filed: 01/09/2021 12:07 PM Note Text: [facility]05-24-2021 [facility]05-23-2021 [facility]05-22-2021 [facility]05-22-2021 [facility]05-21-2021 Note [facility]05-21-2021 [facility] 01-04-2021 [facility]05-19-2021 [facility]05-19-2021 [facility]05-18-2021 [facility]05-18-2021 [facility]05-18-2021 [facility]05-17-2021 [facility]05-16-2021 Note [facility]05-16-2021 [facility] 12-30-2020 [facility]05[facility]15-2021 [facility]05-14-2021 [facility]05-14-2021 [facility]05-14-2021 [facility]05-13-2021 [facility]05-13-2021 [facility]05-13-2021 Note [facility]05-12-2021 [facility] 12-27-[facility]10[facility] Author Connor Friend [facility] Note Date/Time May 18, 2025 2: 17pm [facility] Medical Records Department [address] [place] [address] Consultation - GI 05/17/251948 MR#: [id number] Acct: [id number] Name: NORA GRANDE Rep #:[id number] : 1955 70 From: Connor Tadeo DO PCP: Dr. Claudine Mallory DO Status:ADM IN [facility] HPI Consult Data Date of Consult: 05/17/25 [...] Small benign-appearing hepatic cysts MRCP is pending [facility] Medical History Hx of emotional problems Hormone deficiency Back problem HTN (hypertension) History of skin cancer CHF (congestive heart failure) Fibromyalgia Tobacco use Home Medications ?Medication ?Instructions ?Recorded ?Last Taken ?Type clonazepam 1 mg tablet 1 mg PO QHS anxiety 10/18/16 Unknown History multivitamin,yc-ooyo-vmgwlbuf 27 1 tab PO DAILY supple ment [...] % (Auto) 57.9, Lymph % (Auto) 25.6, [place] % (Auto) 13.6 H, Eos % (Auto) [...] is identified. Charges/Coding Visit Charges Inpatient E&M: 95439 Init Hosp L3 05/18/25 1417 <Electronically signed by Connor Tadeo DO> Cosigner Signature (if applicable): CC: Dr. Claudine Mallory DO~ Signed [facility] Work Phone: Consult note Author Jorge Og [facility] Note Date/Time May 18, 2025 12 :46pm [facility] Medical Records Department [address] [place] [address] Pre-Anesthesia Evaluation 05/18/25 1238 MR#: [id number] Acct: [id number] Name: NORA GRANDE Rep #:[id number] : 1955 70 From: Jorge Peguero PCP: Dr. Claudine Mallory DO Status:ADM IN Y Race: C Location: [facility] MS321 -1 ASA Classification* ASA Classification ASA [...] Procedure(s): ERCP Anesthesia History Anesthesia History - automation tester: Anesthesia History - automation tester Hx Hospitalization Yes 09/10/19 13:04 Any Problems [...] take am of surgery PONV PONV - automation tester: PONV - automation tester Female HX of Motion Sickness HX of N/V After Surgery Non-Smoker Duration of Surgery greater than 60 minutes Number of Risk Factors PONV Score Height & Weight Height & Weight: Anesthesia: Height & Weight Height 5 ft 2 in 05/17/25 22:42 Weight: 64.2 kg 05/17/25 22:42 Body Mass Index (BMI) 25.9 05/17/25 22:42 Respiratory Assessment Respiratory Assessment - automation tester: Respiratory Tract Infection Hx - automation tester Hx Respiratory Tract Infection No 05/18/25 01:02 STOP Sleep Apnea STOP Sleep Apnea - automation tester: STOP Sleep Apnea - automation tester Hx Hypertension Yes 05/16/25 22:11 Hx Sleep [...] Tobacco Use History Tobacco Use History - automation tester: Tobacco Use History - automation tester Tobacco Use Cigarettes 12/24/20 17:14 Smoking Status Current every day smoker 05/17/25 07:49 Hx Tobacco Use Yes 05/16/25 22:11 Years Smoking Packs Smoked per Day Smoking Cessation Date was within the last 15 years Hx Smoking Cessation Date Hx Smoking Cessation Counseling Hematologic Medial History Hematologic Hx - automation tester: Hematologic Medical Hx - 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 Hx of Blood Transfusion No 05/16/25 22:11 [...] confused, unrespo /Reproduction History /Reproductive History - automation tester: /Reproductive Hx- automation tester Hx Now No 05/18/25 01:02 Gestational Age [...] mls @ 15 mls/hr 05/16/25 22:05 IV .[id number] PRN Saline Flush Sodium Chloride 250 mls @ 15 mls/hr 05/16/25 22:05 IV .[id number] PRN Additional IVPB Infusion Ketorolac Tromethamine 15 mg 05/16/25 22:35 05/18/25 05:19 Ketorolac 15 Mg/Ml Vial IV 05/21/25 22:37 15 mg Q6H PRN PRN Administration Pain Score 1-5 Losartan Potassium 50 mg 05/18/25 10:00 05/18/25 11:09 Losartan Potassium 50 Mg Tablet PO Not Given DAILY [facility] Protocol Olanzapine 15 mg 05/17/25 22:00 05/17/25 [...] mg PO QHS anxiety 10/18/16 Unknown History multivitamin,ls-qbat-bpbadvgl 27 1 tab PO DAILY supple ment [...] MD Cosigner Signature: Date CC: ~ Signed [facility] Work Phone: Consult note Author Carlo Arias [facility] Note Date/Time May 18, 2025 2: 06pm [facility] Medical Records Department [address] [place] [address] Anesthesia Postop Eval I 05/18/251404 MR#: [id number] Acct: [id number] Name: NORA GRANDE Rep #:[id number] : 1955 70 From: Carlo Arias PCP: Dr. Claudine Mallory, DO Status:ADM IN Y Race: C Location: [place] [address] Anesthesia: Postop Eval I Current Vital Signs [...] Carlo Sanchez Signature: Date CC: ~ Signed [facility] Work Phone: Consult note Author Jorge Og [facility] Note Date/Time May 18, 2025 3: 13pm [facility] Medical Records Department [address] [facility] [place] [address] Anesthesia Postop Eval II 05/18/25 1513 MR#: [id number] Acct: [id number] Name: NORA GRANDE Rep #:[id number] : 1955 70 From: Jorge Peguero PCP: Dr. Claudine Mallory, DO Status:ADM IN Y Race: C Location: [place] [address] Anesthesia Postop Eval I Sum Postop Eval [...] Jorge Torresigndmitry Signature: Date CC: ~ Signed [facility] Work Phone: Discharge summary Author Yordan Newman [facility] Note Date/Time May 19, 2025 3: 15pm [facility] Medical Records Department [address] [place] [address] Discharge Summary 05/19/25 1510 MR#: [id number] Acct: [id number] Name: NORA GRANDE Rep #:[id number] : 1955 70 From: Yordan Newman MD PCP: Dr. Claudine Mallory DO Status:ADM IN [facility] Providers Date of Admission: 05/16/25 Date of Discharge: 05/19/25 Primary Care Physician: Dr. Claudine Mallory, Consultations 05/16/25 22:04 Consult: Gastroenterology Routine Consulting Provider: [facility] Reason for Consult: Cholelithiasis EMERGENT Consult: [...] tablet 1 mg PO QHS anxiety 10/18/16 multivitamin,vp-jqdm-panuvlxs 27 mg-0.4 mg tablet 1 tab PO [...] % (Auto) 65.2, Lymph % (Auto) 17.3 L,[place] % (Auto) 14.9 H, Eos % (Auto) [...] 1 MG tablet 1 mg PO QHS multivitamin,yj-jpqh-eugytcvr 1 TABLET tablet 1 tab PO DAILY [...] Self Care Charges/Coding Visit Charges Inpatient E&M: 04977 Disch Hosp >30min 05/19/25 1038 <Electronically signed by Yordan Newman MD> Cosigner Signature (if applicable): CC: Dr. Yordan Newman MD; Dr. Claudine Mallory, DO~ Signed [facility] Work Phone: Evaluation noteNo assessment information available [facility] Work Phone: Evaluation note* Diagnosis Onset Date Resolution Status JORGE (obstructive sleep apnea) chronic Smoking greater than 30 pack years chronic Stage 2 moderate COPD by GOLD classification [facility] Work Phone: Evaluation note* Diagnosis Onset Date Resolution Status JORGE (obstructive sleep apnea) chronic Smoking greater than 30 pack years chronic Stage 2 moderate COPD by GOLD classification chronic JORGE (obstructive sleep apnea) chronic Smoking greater than 30 pack years chronic Stage 2 moderate COPD by GOLD classification [facility] Work Phone: evaluation note* Diagnosis Onset [...] pack years chronic May 16, 2025 8:26pm [facility] Work Phone: History and physical note Author Zachary Coffey [facility] Note Date/Time May 16, 2025 8:26pm [facility] Medical Records Department [address] [place] [address] History & Physical Exam 05/16/252006 MR#: [id number] Acct: [id number] Name: NORA GRANDE ROB Rep #:[id number] [...] 1 mg PO QHS 10/18/16 Unknown History multivitamin,ve-gwlj-cyadchjs 27 1 tab PO DAILY Unknown History [...] % (Auto) 65.6, Lymph % (Auto) 21.9, [place] % (Auto) 10.2 H, Eos % (Auto) [...] Clarity Clear, Urine pH 6.0, Ur Specific [place] 1.010, Urine Protein 30 H, Urine Glucose [...] normal. Cholelithiasis. No definitive choledocholithiasis. Reading Location: [place] [address] Gallbladder Ultrasound 05/16/25 16:59 IMPRESSION: Cholelithiasis. No evidence for acute cholecystitis. Mild intra and extrahepatic biliary ductal dilatation, and prominence of the main pancreatic duct. No discrete obstructing mass or choledocholithiasis appreciated. MRCP may be helpful. Mild diffuse hepatic steatosis. Small benign-appearing hepatic cysts. Reading Location: [id number] Assessment & Plan Assessment/Plan (1) COPD (chronic [...] full verified Charges/Coding Visit Charges Inpatient E&M: 63737 Init Hosp L2 05/16/252025 <Electronically signed by Zachary Coffey MD> Cosigner Signature (if applicable): CC: Dr. Claudine Mallory DO; Dr. Zachary Coffey MD~ Signed [facility] Work Phone: Prosipdp note Author Christina Mendez [facility] Note Date/Time May 16, 2025 11:46pm [facility] Medical Records Department [address] [place] [address] Progress Note - Hospitalist 05/16/252336 MR#: [id number] Acct: [id number] Name: NORA GRANDE Rep #:[id number] : 1955 70 From: Christina Joyner PCP: Dr. Claudine Mallory DO Status:ADM IN Location: [place] [address] Hospitalist Note Pt admitted from ER without [...] Cosigner Signature (if applicable): cc: ~* Signed [facility] Work Phone: Progwdwh note Author Jaylen Mike [facility] Note Date/Time May 17, 2025 11:19am [facility] Medical Records Department [address] [place] [address] Progress Note - Hospitalist 05/17/25 1114 MR#: [id number] Acct: [id number] Name: NORA GRANDE Rep #:[id number] : 1955 70 From: Jaylen franco MD PCP: Dr. Claudine Mallory, DO Status:ADM IN Location: MS3 ZE657-0 Subjective Subjective Abdominal pain is improved today. [...] % (Auto) 65.6, Lymph % (Auto) 21.9, [place] % (Auto) 10.2 H, Eos % (Auto) [...] Clarity Clear, Urine pH 6.0, Ur Specific [place] 1.010, Urine Protein 30 H, Urine Glucose [...] % (Auto) 57.9, Lymph % (Auto) 25.6, [place] % (Auto) 13.6 H, Eos % (Auto) [...] normal. Cholelithiasis. No definitive choledocholithiasis. Reading Location: [place] [address] Gallbladder Ultrasound 05/16/25 16:59 IMPRESSION: Cholelithiasis. No evidence for acute cholecystitis. Mild intra and extrahepatic biliary ductal dilatation, and prominence of the main pancreatic duct. No discrete obstructing mass or choledocholithiasis appreciated. MRCP may be helpful. Mild diffuse hepatic steatosis. Small benign-appearing hepatic cysts. Reading Location: [facility] Physical Exam Narrative General: Alert, Oriented x3, [...] DVT: Lovenox Charges/Coding Visit Charges Inpatient E&M: 61101 Subs Hosp L2 05/17/25 1119 <Electronically signed by Jaylen Mike MD> Cosigner Signature (if applicable): CC: ~ Signed [facility] Work Phone: Progress note Author Yordan Newman [facility] Note Date/Time May 18, 2025 8: 34am [facility] Medical Records Department [address] [place] [address] Progress Note - Hospitalist 05/18/25826 MR#: [id number] Acct: [id number] Name: NORA GRANDE Rep #:[id number] : 1955 70 From: Yordan Newman MD PCP: Dr. Claudine Mallory, DO Status:ADM IN Location: [place] [id number] Reason for Visit Chief Complaint: Abdominal pain [...] masses, possibly age related . Reading Location: [place] [address] Physical Exam Narrative GENERAL: cooperative HEENT: Atraumatic; [...] 40 Minutes Charges/Coding Visit Charges Inpatient E&M: 94829 Subs Hosp L2 05/18/25 0834 <Electronically signed by Yordan Newman MD> Cosigner Signature (if applicable): CC: ~ Signed [facility] Work Phone: Reason for referral (narrative)No reason for referral information [facility]WMansfield [facility] Work Phone: Summary Purpose Family History No Family History Records Found Relationship Condition Age at Onset Recorded Date/T valencia sister Diabetes mellitus Unknown brother Diabetes mellitus Unknown Cardiac disease Unknown father Cardiac disease Unknown Advance Directives No Advanced Directives Records Found Advance Directive Response Recorded Date/ Time Living Will No December 24, 2020 5: 14pm Power of Ship Painter Helper No December 24, 2020 5:14pm Advance Directive Response Recorded Date/ Time Living Will No December 24, 2020 4: 14pm Power of Ship Painter Helper No December 24, 2020 4:14pm Advance Directive Response Recorded Date/ Time Do you have a Healthcare Power of Ship Painter Helper? No May 16, 2025 10:11pm Chief Complaint [...] Date Abnormal finding on imaging of liver [facility] 2024 8:26pm Cholelithiases May [...] section and content) DATE CREATED AUTHOR 10/07/2018 [facility] DATE CREATED AUTHOR AUTHOR'S ORGANIZ ATION 12/10/2018 [facility] DATE CREATED AUTHOR AUTHOR'S ORGANIZ ATION 08/29/2021 [facility] DATE CREATED AUTHOR AUTHOR'S ORGANIZ ATION 05/22/2025 [facility] DATE CREATED AUTHOR AUTHOR'S ORGANIZ ATION 05/28/2025 [facility] Goals (unrecognized section and content) Goals may [...] Provider, Referrin g Provider Active Vanesa Hatfield FRENCH BINDER, FRENCH BINDER-C Attending Provider Active Team Status: Inactive Member Role Status Dates Dr. Claudine Mallory DO Primary Care Provider Active Vanesa Hatfield FRENCH BINDER, FRENCH BINDER-C Attending Provider, Referrin g Provider Active Team [...] 16, 2025 Dr. [facility] Active Start: May 16, 2025 Dr. Zachary Coffey MD Attending physician Active Start: May 16, 2025 Team Status: Active Member Role/Relationship Status Dates Dr. Claudine Mallory DO Primary care physician Active Start: May 16, 2025 Dr. Tam[facility] Active Start: May 16, 2025 [...] 17, 2025 Dr. Tam[facility] Active Start: May 17, 2025 [...] 17, 2025 Dr. Tamara Neal MD Emergency [facility] Physician Active Start: May 17, 2025 Dr. [...] 18, 2025 Dr. Tamara Neal MD Emergency [facility] t Physician Active Start: May 18, 2025 [...] 19, 2025 Dr. Tamara Neal MD Emergency [facility] t Physician Active Start: May 16, 2025 [...] BE BASED ON THE PRIMARY CLINICAL RECORDS. [employer] provides no warranty or guarantee of the accuracy or completeness of information in this document.
== END | disposition home or self-care (01) ==
LOC: CT 16:42
PROVIDERS: PCP Family Medicine; Referring Provider Nurse Practitioner Acute Care; Visit Provider Nurse Practitioner Acute Care
DX: F17.210 Nicotine dependence, cigarettes, uncomplicated (principal)
CPT/HCPCS: 71271

== ENCOUNTER → 2025-06-29 | Outpatient (CLI) | payer MEDICARE, MEDICAID, SELFPAY ==
--- NOTE | 2025-06-29 14:48 | BD_ITS ---
PROCEDURE: DEXA BONE DENSITY STUDY N/A REASON FOR EXAM: F, age 70 y/o . Postmenopausal. TECHNIQUE: Procedure Code: BDDBD Modality: DX Procedure: DEXA BONE DENSITY STUDY COMPARISON: None FINDINGS: BMD and T-SCORES Lumbar spine: 1.105 g/cm2, T-score 1.1 Levels: L1 through L4 Right femoral neck: 0.633 g/cm2, T-score -1.9 Femoral neck comparison data not recommended for monitoring change. Right total hip: 0.798 g/cm2, T-score -1.2 The World Health Organization has defined the following categories based on bone density: Normal bone density: T-score equal to or greater than -1.0 Osteopenia: T-score between -1.0 and -2.5 Osteoporosis: T-score equal to or less than -2.5 FRAX (or Comparable) Fracture Risk Assessment: 10 Year Probability of Fracture: Major Osteoporotic Fracture: 29% Hip Fracture: 9.7% (Note: FRAX is not to be reported in setting of normal range bone density, osteoporosis on DEXA, known history of osteoporosis, prior osteoporotic hip or vertebral fracture, or for any patient undergoing pharmacological treatment for bone loss.) The National Osteoporosis Foundation (NOF) recommends pharmacological treatment for patients with a FRAX 10-year risk of 3% or higher for a hip fracture, or 20% or higher for a major osteoporotic fracture, to prevent osteoporosis and reduce fracture risk. The patient does meet the pharmacological treatment recommendations for prevention of osteoporosis. BD/Dexa Bone Density Study IMPRESSION: OSTEOPENIA. Recommend follow-up as clinically warranted. Reading Location: [place] [address]
--- OUTSIDE RECORDS SUMMARY | 2025-06-29 19:08 | XMS RPT_ITS | CCD ---
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 spleen is surgically absent. 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 Chest wall:The soft tissues of the chest wall appear unremarkable. There is no axillary lymphadenopathy. Lungs, airways and pleura: There is moderate upper lobe predominant centrilobular emphysema. There is stable pleural-parenchymal scarring in the middle lobe of the right lung in the inferior segment of the lingula. CT/Low Dose CT Lung Screening IMPRESSION: 1. Emphysema. 2. No pulmonary nodules. 3. Calcific vascular disease. 4. Other findings as noted, not significantly changed. Lung-RADS Category: 1 S: Negative. Emphysema. Calcific vascular disease. Recommendation: Follow up low-dose chest CT in 12 months. Reading Location: [place] [address] CC: FEDERICO Hatfield; Dr. Claudine Ruiz DO Tobacco Educator: Signed Normal [facility] Gastroenterology Visit Repor ton 05-26-2025 Gastroenterology Visit Report [facility] Gastroenterology [address] [place] [address] OFFICE VISIT Date of Service: 05/26/25 MR#: [id number] Acct: [id number] Name: NORA GRANDE Rep #: [id number] : 1955 Provider: Connor Tadeo DO Age/Sex: 70/F Location: [facility] [place] Status: Signed Intake Vital Signs 05/17/25 22:42 [...] tablet 50 mg PO BID vertigo 07/02/24 10/05/12 History fluticasone fur. 200 mcg-umeclid 1 inh [...] the office today for hospital follow up. [facility] hospitalization 05.16.25 - 05.19.25 pt presents [...] been feeling sick; reports nausea, lightheadedness, fatigue, "tingly", and dizziness. Pt reports decreased appetite as well. * Biliary issues:???Reports no recurren (more content not included)... Normal [facility] CBC W/Diff, Automatedon 10-0 Absolute Neut Normal 2.0-7.7 [facility] Comment on above: Result Comment: Canc elled via OM: Order cancelled - Patient discharged Performed By: #### L 100.0100, L500.3400 ####[facility] [address] [place], [address] HCT Normal 37-47 [facility] Comment on above: Result Comment: Canc elled via OM: Order cancelled - Patient discharged Performed By: #### L 100.0100, L500.3400 ####[facility] [address] [place], [address] HGB Normal 12.0-15.0 [facility] Comment on above: Result Comment: Canc elled via OM: Order cancelled - Patient discharged Performed By: #### L 100.0100, L500.3400 ####[facility] [address] [place], [address] MCH Normal 27.0-32.0 [facility] Comment on above: Result Comment: Canc elled via OM: Order cancelled - Patient discharged Performed By: #### L 100.0100, L500.3400 ####[facility] [address] [place], [address] MCHC Normal 32-36 [facility] Comment on above: Result Comment: Canc elled via OM: Order cancelled - Patient discharged Performed By: #### L 100.0100, L500.3400 ####[facility] [address] [place], [address] MCV Normal 81-99 [facility] Comment on above: Result Comment: Canc elled via OM: Order cancelled - Patient discharged Performed By: #### L 100.0100, L500.3400 ####[facility] [address] [place], [address] NEUT% Normal 47-70 [facility] Comment on above: Result Comment: Canc elled via OM: Order cancelled - Patient discharged Performed By: #### L 100.0100, L500.3400 ####[facility] [address] [place], [address] PLT Normal 150-450 [facility] Comment on above: Result Comment: Canc elled via OM: Order cancelled - Patient discharged Performed By: #### L 100.0100, L500.3400 ####[facility] [address] [place], [address] RBC Normal 4.2-5.4 [facility] Comment on above: Result Comment: Canc elled via OM: Order cancelled - Patient discharged Performed By: #### L 100.0100, L500.3400 ####[facility] [address] [place], [address] RDW CV Normal 11.6-14.6 [facility] Comment on above: Result Comment: Canc elled via OM: Order cancelled - Patient discharged Performed By: #### L 100.0100, L500.3400 ####[facility] [address] [place], [address] RDW SD Normal 35.1-43.9 [facility] Comment on above: Result Comment: Canc elled via OM: Order cancelled - Patient discharged Performed By: #### L 100.0100, L500.3400 ####[facility] [address] [place], [address] WBC Normal 4.4-11.0 [facility] Comment on above: Result Comment: Canc elled via OM: Order cancelled - Patient discharged Performed By: #### L 100.0100, L500.3400 ####[facility] [address] [place], [address] Liver Profileon 05-21-2025 ALB Normal 3.4-4.8 [facility] Comment on above: Result Comment: Canc elled via OM: Order cancelled - Patient discharged Performed By: #### L 100.0100, L500.3400 ####[facility] [address] [place], [address] ALK PHOS Normal 35-104 [facility] Comment on above: Result Comment: Canc elled via OM: Order cancelled - Patient discharged Performed By: #### L 100.0100, L500.3400 ####[facility] [address] [place], [address] ALT Normal <=34 [facility] Comment on above: Result Comment: Canc elled via OM: Order cancelled - Patient discharged Performed By: #### L 100.0100, L500.3400 ####[facility] [address] [place], [address] AST Normal <=31 [facility] Comment on above: Result Comment: Canc elled via OM: Order cancelled - Patient discharged Performed By: #### L 100.0100, L500.3400 ####[facility] [address] [place], [address] D BILI Normal 0.00-0.30 [facility] Comment on above: Result Comment: Canc elled via OM: Order cancelled - Patient discharged Performed By: #### L 100.0100, L500.3400 ####[facility] [address] [place], [address] T BILI Normal 0.00-1.30 [facility] Comment on above: Result Comment: Canc elled via OM: Order cancelled - Patient discharged Performed By: #### L 100.0100, L500.3400 ####[facility] [address] [place], [address] T PROT Normal 5.9-8.4 [facility] Comment on above: Result Comment: Canc elled via OM: Order cancelled - Patient discharged Performed By: #### L 100.0100, L500.3400 ####[facility] [address] [place], [address] CBC W/Diff, Automatedon 10-0 -2024 Absolute Neut Normal 2.0-7.7 [facility] Comment on above: Result Comment: Canc elled via OM: Order cancelled - Patient discharged Performed By: #### L 100.0100, L500.3400 #### [facility] [address] [place], [address] HCT Normal 37-47 [facility] Comment on above: Result Comment: Canc elled via OM: Order cancelled - Patient discharged Performed By: #### L 100.0100, L500.3400 #### [facility] [address] [place], [address] HGB Normal 12.0-15.0 [facility] Comment on above: Result Comment: Canc elled via OM: Order cancelled - Patient discharged Performed By: #### L 100.0100, L500.3400 #### [facility] [address] [place], [address] MCH Normal 27.0-32.0 [facility] Comment on above: Result Comment: Canc elled via OM: Order cancelled - Patient discharged Performed By: #### L 100.0100, L500.3400 #### [facility] [address] [place], [address] MCHC Normal 32-36 [facility] Comment on above: Result Comment: Canc elled via OM: Order cancelled - Patient discharged Performed By: #### L 100.0100, L500.3400 #### [facility] [address] [place], [address] MCV Normal 81-99 [facility] Comment on above: Result Comment: Canc elled via OM: Order cancelled - Patient discharged Performed By: #### L 100.0100, L500.3400 #### [facility] [address] [place], [address] NEUT% Normal 47-70 [facility] Comment on above: Result Comment: Canc elled via OM: Order cancelled - Patient discharged Performed By: #### L 100.0100, L500.3400 #### [facility] [address] [place], [address] PLT Normal 150-450 [facility] Comment on above: Result Comment: Canc elled via OM: Order cancelled - Patient discharged Performed By: #### L 100.0100, L500.3400 #### [facility] [address] [place], [address] RBC Normal 4.2-5.4 [facility] Comment on above: Result Comment: Canc elled via OM: Order cancelled - Patient discharged Performed By: #### L 100.0100, L500.3400 #### [facility] [address] [place], [address] RDW CV Normal 11.6-14.6 [facility] Comment on above: Result Comment: Canc elled via OM: Order cancelled - Patient discharged Performed By: #### L 100.0100, L500.3400 #### [facility] [address] [place], [address] RDW SD Normal 35.1-43.9 [facility] Comment on above: Result Comment: Canc elled via OM: Order cancelled - Patient discharged Performed By: #### L 100.0100, L500.3400 #### [facility] [address] [place], [address] WBC Normal 4.4-11.0 [facility] Comment on above: Result Comment: Canc elled via OM: Order cancelled - Patient discharged Performed By: #### L 100.0100, L500.3400 #### [facility] [address] [place], [address] Liver Profileon 05-20-2025 ALB Normal 3.4-4.8 [facility] Comment on above: Result Comment: Canc elled via OM: Order cancelled - Patient discharged Performed By: #### L 100.0100, L500.3400 #### [facility] [address] [place], [address] ALK PHOS Normal 35-104 [facility] Comment on above: Result Comment: Canc elled via OM: Order cancelled - Patient discharged Performed By: #### L 100.0100, L500.3400 #### [facility] [address] [place], [address] ALT Normal <=34 [facility] Comment on above: Result Comment: Canc elled via OM: Order cancelled - Patient discharged Performed By: #### L 100.0100, L500.3400 #### [facility] [address] [place], [address] AST Normal <=31 [facility] Comment on above: Result Comment: Canc elled via OM: Order cancelled - Patient discharged Performed By: #### L 100.0100, L500.3400 #### [facility] [address] [place], [address] D BILI Normal 0.00-0.30 [facility] Comment on above: Result Comment: Canc elled via OM: Order cancelled - Patient discharged Performed By: #### L 100.0100, L500.3400 #### [facility] [address] [place], [address] T BILI Normal 0.00-1.30 [facility] Comment on above: Result Comment: Canc elled via OM: Order cancelled - Patient discharged Performed By: #### L 100.0100, L500.3400 #### [facility] [address] [place], [address] T PROT Normal 5.9-8.4 [facility] Comment on above: Result Comment: Canc elled via OM: Order cancelled - Patient discharged Performed By: #### L 100.0100, L500.3400 #### [facility] [address] [place], [address] Absolute lymphocyte countOrd ered By: Yordan Newman on 05-19-2025 Lymphocytes Auto (Unsp spec) [#/Vol] 1.50 10*3/uL 0.83-4.51 [facility] Absolute neutrophil countOrd ered By: Yordan Newman on 05-19-2025 Neutrophils (Bld) [#/Vol] 5.7 10*3/uL 2.0-7.7 [facility] Anion gap in Serum or Plasma Ordered By: Yordan Newman on 05-19-2025 Anion gap [Moles/Vol] 11 mmol/L 5-15 [facility] Automated lymphocyte count a s percentage of total leukocytesOrdered By: Yordan Newman on 05-19-2025 Lymphocytes/100 WBC Auto (Unsp spec) 17.3 % Low 19-41 [facility] BUN/creatinine ratioOrdered By: Yordan Newman on 05-19-2025 Urea nitrogen/Creatinine [Mass ratio] 8.7 mg/mg Low 06-06 [facility] Basic Metabolic Profile (BMP )on 05-19-2025 BUN/CRE 8.7 RATIO Low 06-06 [facility] Comment on above: Performed By: #### L 500.2500, L500.3400, L100.0100, L501.5200, L501.2300 ####[facility] [address] [place], [address] Calcium [Mass/Vol] 8.5 mg/dL Normal 7.6-11.0 [facility] Comment on above: Performed By: #### L 500.2500, L500.3400, L100.0100, L501.5200, L501.2300 ####[facility] [address] [place], [address] Chloride [Moles/Vol] 109 mmol/L High 98-108 [facility] Comment on above: Performed By: #### L 500.2500, L500.3400, L100.0100, L501.5200, L501.2300 ####[facility] [address] [place], [address] CO2 [Moles/Vol] 19.1 mmol/L Low 21.0-32.0 [facility] Comment on above: Performed By: #### L 500.2500, L500.3400, L100.0100, L501.5200, L501.2300 ####[facility] [address] [place], [address] Creatinine [Mass/Vol] 1.00 mg/dL Normal 0.70-1.20 [facility] Comment on above: Performed By: #### L 500.2500, L500.3400, L100.0100, L501.5200, L501.2300 ####[facility] [address] [place], [address] ECRCL 46.06 ml/min Low 50-250 [facility] Comment on above: Performed By: #### L 500.2500, L500.3400, L100.0100, L501.5200, L501.2300 ####[facility] [address] [place], [address] GAP 11 Normal 5-15 [facility] Comment on above: Performed By: #### L 500.2500, L500.3400, L100.0100, L501.5200, L501.2300 ####[facility] [address] [place], [address] GFR/1.73 sq M.predicted among non-blacks MDRD (S/P/Bld) [Vol rate/Area] 61 mL/min/{1.73_m2} Normal >60 [facility] Comment on above: Result Comment: mL/m in/1.73m2 CKD-EPI Creatinine Equation (2020) Performed By: #### L 500.2500, L500.3400, L100.0100, L501.5200, L501.2300 ####[facility] [address] [place], [address] Glucose [Mass/Vol] 201 mg/dL High 70-99 [facility] Comment on above: Performed By: #### L 500.2500, L500.3400, L100.0100, L501.5200, L501.2300 ####[facility] [address] [place], [address] Potassium [Moles/Vol] 4.1 mmol/L Normal 3.3-5.1 [facility] Comment on above: Performed By: #### L 500.2500, L500.3400, L100.0100, L501.5200, L501.2300 ####[facility] [address] [place], [address] Sodium [Moles/Vol] 139 mmol/L Normal 133-145 [facility] Comment on above: Performed By: #### L 500.2500, L500.3400, L100.0100, L501.5200, L501.2300 ####[facility] [address] [place], [address] Urea nitrogen [Mass/Vol] 9 mg/dL Normal 4-19 [facility] Comment on above: Performed By: #### L 500.2500, L500.3400, L100.0100, L501.5200, L501.2300 ####[facility] [address] [place], [address] Basophil percentageOrdered B y: Yordan Newman on 05-19-2025 Basophils/100 WBC (Bld) 0.5 % 0-1 [facility] Bilirubin directOrdered By: Yordan Newman on 05-19-2025 Bilirubin.direct [Mass/Vol] 0.11 mg/dL 0.00-0.30 [facility] Bilirubin, totalOrdered By: Yordan Newman on 05-19-2025 Bilirubin [Mass/Vol] 0.30 mg/dL 0.00-1.30 [facility] CBC W/Diff, Automatedon Absolute Lymph 1.50 X10 3/uL Normal 0.83-4.51 [facility] Comment on above: Performed By: #### L 500.2500, L500.3400, L100.0100, L501.5200, L501.2300 ####[facility] [address] [place], [address] Absolute Neut 5.7 X10 3/uL Normal 2.0-7.7 [facility] Comment on above: Performed By: #### L 500.2500, L500.3400, L100.0100, L501.5200, L501.2300 ####[facility] [address] [place], [address] Basophils/100 WBC (Bld) 0.5 % Normal 0-1 [facility] Comment on above: Performed By: #### L 500.2500, L500.3400, L100.0100, L501.5200, L501.2300 ####[facility] [address] [place], [address] Eosinophils/100 WBC (Bld) 0.6 % Normal 0-5 [facility] Comment on above: Performed By: #### L 500.2500, L500.3400, L100.0100, L501.5200, L501.2300 ####[facility] [address] [place], [address] Erythrocyte distribution width (RBC) [Ratio] 14.1 % Normal 11.6-14.6 [facility] Comment on above: Performed By: #### L 500.2500, L500.3400, L100.0100, L501.5200, L501.2300 ####[facility] [address] [place], [address] Hematocrit (Bld) [Volume fraction] 37.1 % Normal 37-47 [facility] Comment on above: Performed By: #### L 500.2500, L500.3400, L100.0100, L501.5200, L501.2300 ####[facility] [address] [place], [address] Hemoglobin (Bld) [Mass/Vol] 12.2 g/dL Normal 12.0-15.0 [facility] Comment on above: Performed By: #### L 500.2500, L500.3400, L100.0100, L501.5200, L501.2300 ####[facility] [address] [place], [address] IG% 1.500 High 0.0-0.9 [facility] Comment on above: Result Comment: IG% - Immature Granulocytes (promyelocytes, myelocytes and metamyelocytes) > 1% indicates that a LEFT SHIFT is Present. Performed By: #### L 500.2500, L500.3400, L100.0100, L501.5200, L501.2300 ####[facility] [address] [place], [address] Lymphocytes/100 WBC (Bld) 17.3 % Low 19-41 [facility] Comment on above: Performed By: #### L 500.2500, L500.3400, L100.0100, L501.5200, L501.2300 ####[facility] [address] [place], [address] MCH (RBC) [Entitic mass] 29.6 pg Normal 27.0-32.0 [facility] Comment on above: Performed By: #### L 500.2500, L500.3400, L100.0100, L501.5200, L501.2300 ####[facility] [address] [place], [address] MCHC (RBC) [Mass/Vol] 32.9 g/dL Normal 32-36 [facility] Comment on above: Performed By: #### L 500.2500, L500.3400, L100.0100, L501.5200, L501.2300 ####[facility] [address] [place], [address] MCV (RBC) [Entitic vol] 90.0 fL Normal 81-99 [facility] Comment on above: Performed By: #### L 500.2500, L500.3400, L100.0100, L501.5200, L501.2300 ####[facility] [address] [place], [address] Monocytes/100 WBC (Bld) 14.9 % High 0-10 [facility] Comment on above: Performed By: #### L 500.2500, L500.3400, L100.0100, L501.5200, L501.2300 ####[facility] [address] [place], [address] Neutrophils/100 WBC (Bld) 65.2 % Normal 47-70 [facility] Comment on above: Performed By: #### L 500.2500, L500.3400, L100.0100, L501.5200, L501.2300 ####[facility] [address] [place], [address] Nucleated RBC (Bld) [#/Vol] 0 10*3/uL Normal 0-5 [facility] Comment on above: Performed By: #### L 500.2500, L500.3400, L100.0100, L501.5200, L501.2300 ####[facility] [address] [place], [address] Platelet mean volume (Bld) [Entitic vol] 10.8 fL Normal 6.2-12.0 [facility] Comment on above: Performed By: #### L 500.2500, L500.3400, L100.0100, L501.5200, L501.2300 ####[facility] [address] [place], [address] Platelets (Bld) [#/Vol] 318 10*3/uL Normal 150-450 [facility] Comment on above: Performed By: #### L 500.2500, L500.3400, L100.0100, L501.5200, L501.2300 ####[facility] [address] [place], [address] RBC (Bld) [#/Vol] 4.12 10*6/uL Low 4.2-5.4 [facility] Comment on above: Performed By: #### L 500.2500, L500.3400, L100.0100, L501.5200, L501.2300 ####[facility] [address] [place], [address] RDW SD 46.6 fl High 35.1-43.9 [facility] Comment on above: Performed By: #### L 500.2500, L500.3400, L100.0100, L501.5200, L501.2300 ####[facility] [address] [place], [address] WBC (Bld) [#/Vol] 8.7 10*3/uL Normal 4.4-11.0 [facility] Comment on above: Performed By: #### L 500.2500, L500.3400, L100.0100, L501.5200, L501.2300 ####[facility] [address] [place], [address] Carbon dioxide, total [Moles /volume] in Central venous bloodOrdered By: Yordan Newman on 05-19-2025 CO2 [Moles/Vol] 19.1 mmol/L Low 21.0-32.0 [facility] Chloride assayOrdered By: Shantanu Newman on 05-19-2025 Chloride [Moles/Vol] 109 mmol/L High 98-108 [facility] Eosinophil percentageOrdered By: Yordan Newman on 05-19-2025 Eosinophils/100 WBC (Bld) 0.6 % 0-5 [facility] Erythrocyte distribution wid th ratioOrdered By: Yordan Newman on 05-19-2025 Erythrocyte distribution width (RBC) [Ratio] 14.1 % 11.6-14.6 [facility] Erythrocyte distribution wid th standard deviationOrdered By: Yordan Newman on 05-19-2025 Erythrocyte distribution width (RBC) [Ratio] 46.6 fl High 35.1-43.9 [facility] Glomerular filtration rate ( GFR) estimation/1.73 sq m using serum, plasma, or whole bOrdered By: Yordan Newman on 05-19-2025 GFR/1.73 sq M.predicted among non-blacks MDRD (S/P/Bld) [Vol rate/Area] 61 mL/min/{1.73_m2} >60 [facility] Comment on above: mL/min/1.73m2 CKD-EP I Creatinine Equation (2020) Hematocrit Auto (Bld) [Volum e fraction]Ordered By: Yordan Newman on 05-19-2025 Hematocrit (Bld) [Volume fraction] 37.1 % 37-47 [facility] Hemoglobin measurementOrdere d By: Yordan Newman on 05-19-2025 Hemoglobin (Bld) [Mass/Vol] 12.2 g/dL 12.0-15.0 [facility] Immature granulocytes/100 WB C Auto (Bld)Ordered By: Yordan Newman on 05-19-2025 Immature granulocytes/100 WBC (Bld) 1.500 % High 0.0-0.9 [facility] Comment on above: IG% - Immature Granu locytes (promyelocytes, myelocytes and metamyelocytes) > 1% indicates that a LEFT SHIFT is Present. Laboratory - Chemistry and C hemistry - challengeOrdered By: Yordan Nweman on 05-19-2025 AST [Catalytic activity/Vol] 16 U/L <32 [facility] Liver Profileon 05-19-2025 Albumin [Mass/Vol] 3.1 g/dL Low 3.4-4.8 [facility] Comment on above: Performed By: #### L 500.2500, L500.3400, L100.0100, L501.5200, L501.2300 ####[facility] [address] [place], [address] ALK PHOS 59 U/L Normal 35-104 [facility] Comment on above: Performed By: #### L 500.2500, L500.3400, L100.0100, L501.5200, L501.2300 ####[facility] [address] [place], [address] ALT [Catalytic activity/Vol] 12 U/L Normal <=34 [facility] Comment on above: Performed By: #### L 500.2500, L500.3400, L100.0100, L501.5200, L501.2300 ####[facility] [address] [place], [address] AST [Catalytic activity/Vol] 16 U/L Normal <=31 [facility] Comment on above: Performed By: #### L 500.2500, L500.3400, L100.0100, L501.5200, L501.2300 ####[facility] [address] [place], [address] Bilirubin [Mass/Vol] 0.30 mg/dL Normal 0.00-1.30 [facility] Comment on above: Performed By: #### L 500.2500, L500.3400, L100.0100, L501.5200, L501.2300 ####[facility] [address] [place], [address] Bilirubin.direct [Mass/Vol] 0.11 mg/dL Normal 0.00-0.30 [facility] Comment on above: Performed By: #### L 500.2500, L500.3400, L100.0100, L501.5200, L501.2300 ####[facility] [address] [place], [address] Globulin (S) [Mass/Vol] 2.5 g/dL Normal 2.2-4.2 [facility] Comment on above: Performed By: #### L 500.2500, L500.3400, L100.0100, L501.5200, L501.2300 ####[facility] [address] [place], [address] T PROT 5.6 g/dL Low 5.9-8.4 [facility] Comment on above: Performed By: #### L 500.2500, L500.3400, L100.0100, L501.5200, L501.2300 ####[facility] [address] [place], [place], [address] MCV (mean corpuscular volume ) determinationOrdered By: Yordan Newman on 05-19-2025 MCV (RBC) [Entitic vol] 90.0 fL 81-99 [facility] Magnesiumon 05-19-2025 Magnesium [Mass/Vol] 2.3 mg/dL High 1.5-2.2 [facility] Comment on above: Performed By: #### L 500.2500, L500.3400, L100.0100, L501.5200, L501.2300 ####[facility] [address] [place], [place], [id number] Magnesium measurement (mass/ volume)Ordered By: Yordan Newman on 05-19-2025 Magnesium (Unsp spec) [Mass/Vol] 2.3 mg/dL High 1.5-2.2 [facility] Mean corpuscular hemoglobin (MCH) determinationOrdered By: Yordan Newman on 05-19-2025 MCH (RBC) [Entitic mass] 29.6 pg 27.0-32.0 [facility] Mean corpuscular hemoglobin concentration (MCHC) determinationOrdered By: Yordan Newman on 05-19-2025 MCHC (RBC) [Mass/Vol] 32.9 g/dL 32-36 [facility] Mean platelet volume determi nationOrdered By: Yordan Newman on 05-19-2025 Platelet mean volume (Bld) [Entitic vol] 10.8 fL 6.2-12.0 [facility] Monocyte percentageOrdered B y: Yordan Newman on 05-19-2025 Monocytes/100 WBC (Bld) 14.9 % High 0-10 [facility] Neutrophil percentageOrdered By: Yordan Newman on 05-19-2025 Neutrophils/100 WBC (Bld) 65.2 % 47-70 [facility] Nucleated red blood cell per centageOrdered By: Yordan Newman on 05-19-2025 Nucleated RBC/100 WBC (Bld) [Ratio] 0 % 0-5 [facility] Phosphoruson 05-19-2025 Phosphate [Mass/Vol] 3.0 mg/dL Normal 2.7-4.5 [facility] Comment on above: Performed By: #### L 500.2500, L500.3400, L100.0100, L501.5200, L501.2300 ####[facility] [address] [place], [address] Platelet countOrdered By: Shantanu Newman on 05-19-2025 Platelets (Bld) [#/Vol] 318 10*3/uL 150-450 [facility] Potassium measurement (mass/ volume)Ordered By: Yordan Newman on 05-19-2025 Potassium (Unsp spec) [Mass/Vol] 4.1 mmol/L 3.3-5.1 [facility] RBC Auto (Bld) [#/Vol]Ordere d By: Yordan Newman on 05-19-2025 RBC (Bld) [#/Vol] 4.12 10*6/uL Low 4.2-5.4 [facility] Serum creatinine measurement (mass/volume)Ordered By: Yordan Newman on 05-19-2025 Creatinine [Mass/Vol] 1.00 mg/dL 0.70-1.20 [facility] Serum globulin measurementOr dered By: Yordan Newman on 05-19-2025 Globulin (S) [Mass/Vol] 2.5 g/dL 2.2-4.2 [facility] Serum glucose measurement (m ass/volume)Ordered By: Yordan Newman on 05-19-2025 Glucose [Mass/Vol] 201 mg/dL High 70-99 [facility] Serum or plasma alanine pemberton otransferase (ALT) measurementOrdered By: Yordan Newman on 05-19-2025 ALT [Catalytic activity/Vol] 12 U/L <35 [facility] Serum or plasma albumin tomas urement (mass/volume)Ordered By: Yordan Newman on 05-19-2025 Albumin [Mass/Vol] 3.1 g/dL Low 3.4-4.8 [facility] Serum or plasma alkaline grey sphatase measurementOrdered By: Yordan Newman on 05-19-2025 ALP [Catalytic activity/Vol] 59 U/L 35-104 [facility] Serum or plasma calcium tomas urement (mass/volume)Ordered By: Yordan Newman on 05-19-2025 Calcium [Mass/Vol] 8.5 mg/dL 7.6-11.0 [facility] Serum or plasma urea nitroge n measurement (mass/volume)Ordered By: Yordan Newman on 05-19-2025 Urea nitrogen [Mass/Vol] 9 mg/dL 4-19 [facility] Sodium levelOrdered By: Joaquin Newman on 05-19-2025 Sodium [Moles/Vol] 139 mmol/L 133-145 [facility] Total proteinOrdered By: Jonathan Newman on 05-19-2025 Protein [Mass/Vol] 5.6 g/dL Low 5.9-8.4 [facility] White blood cell (WBC) count Ordered By: Yordan Newman on 05-19-2025 WBC (Bld) [#/Vol] 8.7 10*3/uL 4.4-11.0 [facility] ERCP Biliary/Pancreason 10 ERCP Biliary/Pancreas [facility] Imaging Services [address] [place] [address] ERCP Biliary/Pancreas MR#: [id number] Acct: [id number] Name: CHRISTIANENORA Rep #: [id number] : 1955 F 70 From: Yordan Peguero PCP: Dr. Claudine Ruiz DO Status: ADM IN Study: ERCP Biliary/Pancreas Date of Exam: 05/18/25 Exam# [id number] Ordering Dr: Connor Tadeo DO PROCEDURE: ERCP BILIARY/PANCREAS; O.R. FLUORO FOR C-ARM 05/18/2025 REASON FOR EXAM: ERCP TECHNIQUE: Procedure Code: RADERCP; RADORFL_C_ARM Modality: DX Procedure: ERCP BILIARY/PANCREAS; O.R. FLUORO FOR C-ARM Fluoroscopy time: 70.5 seconds. Dose: 13.06 mGy. RAD/ERCP Biliary/Pancreas IMPRESSION: Fluoroscopy was performed for ERCP. 9 spot images were also obtained. Reading Location: [id number] CC: Dr. Claudine Ruiz DO; Connor Tadeo DO Tobacco Educator: Signed Normal [facility] ERCP Reporton 05-18-2025 ERCP Report [facility] Medical Records Department [address] [place] [address] ERCP Report MR#: [id number] Acct: [id number] Name: NORA GRANDE Rep #: [id number] : 1955 70 From: Connor Tadeo DO PCP: Dr. Claudine Ruiz DO Status:ADM IN Patient Name: Nora Grande [...] hours 26 minutes 13 seconds Findings: The automotive tire tester film was normal. The esophagus was successfully [...] The strictu (more content not included)... Normal [facility] Electrocardiogram reportOrde red By: Morgan Mckeon on 05-18-2025 EKG study [facility] Cardiovascular Services [address] [place] [address] 12 Lead EKG 05/17/25 0528 MR#: [id number] Acct: [id number] Name: NORA GRANDE Rep #:[id number] : 1955 70 From: Morgan Mckeon MD Attending Dr: Dr. Yordan Newman MD Status: ADM IN Ordering Dr: Jorge Og MD Date: 0 05/16/25 Location: [facility] Sex: F C Admitted: 05/16/25 Test Reason [...] was found Confirmed by FRANCIS CABALLERO, MORGAN ([id number]), editor book BOYD ASHBY ([id number]) on 05/18/2025 8:58:01 AM Referred By: PUNEET Confirmed By: MORGAN MCKEON MD 05/18/25 0858 Date _ Morgan Mckeon MD CC: Dr. Jorge Og MD; Dr. Yordan Newman MD; Dr. Claudine Ruiz, DO ~ Signed [facility] Other Phone: MR/OP.PROVATon 05-18-2025 [facility] Medical Records Department [address] [place] [address] Provation Physician Letter MR#: [id number] Acct: [id number] Name: NORA GRANDE Rep #: [id number] : 1955 70 From: Connor Tadeo DO PCP: Dr. Claudine Ruiz DO Status:ADM IN 05/18/2025 Claudine [place] [address] [facility] [place] [address] [place] [address] Re : ERCP procedure for Nora Grande Dear Dr. Ruiz This procedure was performed on Sunday, May [...] DO Cosigner Signature: Date (if indicated) CC: FEDERICO Mendez; FEDERICO Singh; Dr. Yordan Newman MD; Dr. Claudine Ruiz DO; Dr. Jaylen Mike MD; Dr. Zachary Coffey MD; Dr. Danilo Salvador MD; GREGOR Hernandez; Connor Friend, DO Date Dictated: 05/18/25 1238 Date Transcribed: Tobacco Educator: JENNIFER Signed [facility] MR/POSTOP.ANEon 05-18-2025 MR/POSTOP.[facility] Medical Records Department [address] [place] [address] Anesthesia Postop Eval I 05/18/25 1405 MR#: [id number] Acct: [id number] Name: NORA GRANDE Rep #: [id number] : 1955 70 From: Carlo Arias PCP: Dr. Claudine Ruiz, DO Status:ADM IN Y Race: C Location: [place] [address] Anesthesia: Postop Eval I Current Vital Signs [...] Postop Eval 1 completed: Yes 05/18/25 1406 Date Carlo Sanchez Signature: Date CC: Signed [facility] MR/JAPBGNAB3wa 05-18-2025 MR/POSTOPAN2 [facility] Medical Records Department [address] [place] [address] Anesthesia Postop Eval II 05/18/25 1513 MR#: [id number] Acct: [id number] Name: NORA GRANDE RAE Rep #: [id number] : 1955 70 From: Jorge Og MD PCP: Dr. Claudine Ruiz, DO Status:ADM IN Y Race: C Location: [place] [address] Anesthesia Postop Eval I Sum Postop Eval [...] No Complications Anesthesia Complication: No 05/18/25 1513 Date Jorge Sanchez Signature: Date CC: Signed Normal [facility] O.R. Fluoro for C-Jose Antonio 10 O.R. Fluoro for C-Arm [facility] Imaging Services [address] [place] [id number] O.R. Fluoro for C-Arm MR#: [id number] Acct: [id number] Name: NORA GRANDE Rep #: [id number] : 1955 F 70 From: Yordan Peguero PCP: Dr. Claudine Ruiz, DO Status: ADM IN Study: O.R. Fluoro for C-Arm Date of Exam: 05/18/25 Exam# [id number] Ordering Dr: Connor Tadeo DO PROCEDURE: ERCP BILIARY/PANCREAS; O.R. FLUORO FOR C-ARM 05/18/2025 REASON FOR EXAM: ERCP TECHNIQUE: Procedure Code: RADERCP; RADORFL_C_ARM Modality: DX Procedure: ERCP BILIARY/PANCREAS; O.R. FLUORO FOR C-ARM Fluoroscopy time: 70.5 seconds. Dose: 13.06 mGy. RAD/O.R. Fluoro for C-Arm IMPRESSION: Fluoroscopy was performed for ERCP. 9 spot images were also obtained. Reading Location: [address] CC: Dr. Claudine Ruiz DO; Connor Tadeo DO Tobacco Educator: Signed [facility] ,Urineon 05-18-2025 Beta HCG ( test) Ql (U) [facility] Comment on above: Order Comment: Femal es 12-55 or menstruation outside age range Result Comment: CANC EL PER MAMADOU CANALES RN Performed By: #### L 400.7600 #### [facility] [address] [place], [place], [address] INTERNAL QC OK? [facility] Comment on above: Order Comment: Femal es 12-55 or menstruation outside age range Result Comment: CANC EL PER MAMADOU CANALES RN Performed By: #### L 400.7600 #### [facility] [address] [place], [place], [address] RECORD KIT LOT# [facility] Comment on above: Order Comment: Femal es 12-55 or menstruation outside age range Result Comment: CANC EL PER MAMADOU CANALES RN Performed By: #### L 400.7600 #### [facility] [address] [place], [place], [address] Special Stain Group IIon Special Stain Group II ----- ---- Patient Age/Sex Location Account Attending Physician ---- NORA GRANDE 70/F MS3 [id number] Dr. Yordan Newman MD ---- Specimen: [id number] Received: 05/19/25 Status: REI Wallace Num: [id number] Spec Type: Fluid Subm Dr: Dr. Yordan [...] and and designated per the requisition as "Distal brushings and brush tip." Submitted for cytology and cell block preparation. 05/19/2025 CPT: 71002,09188 Signed (signature on file) Dr. Miriam Brennan MD 05/23/25 1149 ---- Normal [facility] Comment on above: Performed By: #### P SSII ####[facility] [address] [place], [place], [address] Urine teston 05-18 HCG ( test) Ql (U) [facility] Absolute lymphocyte countOrd ered By: Zachary Coffey on 05-17-2025 Lymphocytes Auto (Unsp spec) [#/Vol] 2.82 10*3/uL 0.83-4.51 [facility] Absolute neutrophil countOrd ered By: Zachary Coffey on 05-17-2025 Neutrophils (Bld) [#/Vol] 6.4 10*3/uL 2.0-7.7 [facility] Anion gap in Serum or Plasma Ordered By: Zachary Coffey on 05-17-2025 Anion gap [Moles/Vol] 13 mmol/L 5-15 [facility] Automated lymphocyte count a s percentage of total leukocytesOrdered By: Zachary Coffey on 05-17-2025 Lymphocytes/100 WBC Auto (Unsp spec) 25.6 % - [facility] BUN/creatinine ratioOrdered By: Zachary Coffey on 05-17-2025 Urea nitrogen/Creatinine [Mass ratio] 12.8 mg/mg 10- [facility] Basophil percentageOrdered B y: Zachary Coffey on 05-17-2025 Basophils/100 WBC (Bld) 0.8 % 0-1 [facility] Bilirubin, totalOrdered By: Zachary Coffey on 05-17-2025 Bilirubin [Mass/Vol] 0.83 mg/dL 0.00-1.30 [facility] CBC W/Diff, Automatedon 04-20-2024 Absolute Lymph 2.82 X10 3/uL Normal 0.83-4.51 [facility] Comment on above: Performed By: #### L 500.4050, L100.0100 ####[facility] [address] [place], [address] Absolute Neut 6.4 X10 3/uL Normal 2.0-7.7 [facility] Comment on above: Performed By: #### L 500.4050, L100.0100 ####[facility] [address] [place], [address] Basophils/100 WBC (Bld) 0.8 % Normal 0-1 [facility] Comment on above: Performed By: #### L 500.4050, L100.0100 ####[facility] [address] [place], [address] Eosinophils/100 WBC (Bld) 1.5 % Normal 0-5 [facility] Comment on above: Performed By: #### L 500.4050, L100.0100 ####[facility] [address] [place], [address] Erythrocyte distribution width (RBC) [Ratio] 13.7 % Normal 11.6-14.6 [facility] Comment on above: Performed By: #### L 500.4050, L100.0100 ####[facility] [address] [place], [address] Hematocrit (Bld) [Volume fraction] 39.3 % Normal 37-47 [facility] Comment on above: Performed By: #### L 500.4050, L100.0100 ####[facility] [address] [place], [address] Hemoglobin (Bld) [Mass/Vol] 13.4 g/dL Normal 12.0-15.0 [facility] Comment on above: Performed By: #### L 500.4050, L100.0100 ####[facility] [address] [place], [address] IG% 0.600 Normal 0.0-0.9 [facility] Comment on above: Result Comment: IG% - Immature Granulocytes (promyelocytes, myelocytes and metamyelocytes) > 1% indicates that a LEFT SHIFT is Present. Performed By: #### L 500.4050, L100.0100 ####[facility] [address] [place], [address] Lymphocytes/100 WBC (Bld) 25.6 % Normal 19-41 [facility] Comment on above: Performed By: #### L 500.4050, L100.0100 ####[facility] [address] [place], [address] MCH (RBC) [Entitic mass] 29.3 pg Normal 27.0-32.0 [facility] Comment on above: Performed By: #### L 500.4050, L100.0100 ####[facility] [address] [place], [address] MCHC (RBC) [Mass/Vol] 34.1 g/dL Normal 32-36 [facility] Comment on above: Performed By: #### L 500.4050, L100.0100 ####[facility] [address] [place], [address] MCV (RBC) [Entitic vol] 86.0 fL Normal 81-99 [facility] Comment on above: Performed By: #### L 500.4050, L100.0100 ####[facility] [address] [place], [address] Monocytes/100 WBC (Bld) 13.6 % High 0-10 [facility] Comment on above: Performed By: #### L 500.4050, L100.0100 ####[facility] [address] [place], [address] Neutrophils/100 WBC (Bld) 57.9 % Normal 47-70 [facility] Comment on above: Performed By: #### L 500.4050, L100.0100 ####[facility] [address] [place], [address] Nucleated RBC (Bld) [#/Vol] 0 10*3/uL Normal 0-5 [facility] Comment on above: Performed By: #### L 500.4050, L100.0100 ####[facility] [address] [place], [address] Platelet mean volume (Bld) [Entitic vol] 10.3 fL Normal 6.2-12.0 [facility] Comment on above: Performed By: #### L 500.4050, L100.0100 ####[facility] [address] [place], [address] Platelets (Bld) [#/Vol] 279 10*3/uL Normal 150-450 [facility] Comment on above: Performed By: #### L 500.4050, L100.0100 ####[facility] [address] [place], [address] RBC (Bld) [#/Vol] 4.57 10*6/uL Normal 4.2-5.4 [facility] Comment on above: Performed By: #### L 500.4050, L100.0100 ####[facility] [address] [place], [address] RDW SD 42.9 fl Normal 35.1-43.9 [facility] Comment on above: Performed By: #### L 500.4050, L100.0100 ####[facility] [address] [place], [address] WBC (Bld) [#/Vol] 11.0 10*3/uL Normal 4.4-11.0 [facility] Comment on above: Performed By: #### L 500.4050, L100.0100 ####[facility] [address] [place], [address] Carbon dioxide, total [Moles /volume] in Central venous bloodOrdered By: Zachary Coffey on 05-17-2025 CO2 [Moles/Vol] 21.0 mmol/L 21.0-32.0 [facility] Chloride assayOrdered By: Gregor Coffey on 05-17-2025 Chloride [Moles/Vol] 100 mmol/L 98-108 [facility] Comprehensive Metabolic Prof ilon 05-17-2025 Albumin [Mass/Vol] 3.4 g/dL Normal 3.4-4.8 [facility] Comment on above: Performed By: #### L 500.4050, L100.0100 ####[facility] [address] [place], [address] Albumin/Globulin [Mass ratio] 1.2 {ratio} Normal 0.9-2.4 [facility] Comment on above: Performed By: #### L 500.4050, L100.0100 ####[facility] [address] [place], [address] ALK PHOS 82 U/L Normal 35-104 [facility] Comment on above: Performed By: #### L 500.4050, L100.0100 ####[facility] [address] [place], [address] ALT [Catalytic activity/Vol] 11 U/L Normal <=34 [facility] Comment on above: Performed By: #### L 500.4050, L100.0100 ####[facility] [address] [place], [address] AST [Catalytic activity/Vol] 16 U/L Normal <=31 [facility] Comment on above: Performed By: #### L 500.4050, L100.0100 ####[facility] [address] [place], [address] Bilirubin [Mass/Vol] 0.83 mg/dL Normal 0.00-1.30 [facility] Comment on above: Performed By: #### L 500.4050, L100.0100 ####[facility] [address] [place], [address] BUN/CRE 12.8 RATIO Normal 10-20 [facility] Comment on above: Performed By: #### L 500.4050, L100.0100 ####[facility] [address] [place], [address] Calcium [Mass/Vol] 8.4 mg/dL Normal 7.6-11.0 [facility] Comment on above: Performed By: #### L 500.4050, L100.0100 ####[facility] [address] [place], [address] Chloride [Moles/Vol] 100 mmol/L Normal 98-108 [facility] Comment on above: Performed By: #### L 500.4050, L100.0100 ####[facility] [address] [place], [address] CO2 [Moles/Vol] 21.0 mmol/L Normal 21.0-32.0 [facility] Comment on above: Performed By: #### L 500.4050, L100.0100 ####[facility] [address] [place], [address] Creatinine [Mass/Vol] 1.03 mg/dL Normal 0.70-1.20 [facility] Comment on above: Performed By: #### L 500.4050, L100.0100 ####[facility] [address] [place], [address] ECRCL 44.72 ml/min Low 50-250 [facility] Comment on above: Performed By: #### L 500.4050, L100.0100 ####[facility] [address] [place], [address] GAP 13 Normal 5-15 [facility] Comment on above: Performed By: #### L 500.4050, L100.0100 ####[facility] [address] [place], [address] GFR/1.73 sq M.predicted among non-blacks MDRD (S/P/Bld) [Vol rate/Area] 58 mL/min/{1.73_m2} Low >60 [facility] Comment on above: Result Comment: mL/m in/1.73m2 CKD-EPI Creatinine Equation (2020) Performed By: #### L 500.4050, L100.0100 ####[facility] [address] [place], [address] Globulin (S) [Mass/Vol] 2.8 g/dL Normal 2.2-4.2 [facility] Comment on above: Performed By: #### L 500.4050, L100.0100 ####[facility] [address] [place], [address] Glucose [Mass/Vol] 86 mg/dL Normal 70-99 [facility] Comment on above: Performed By: #### L 500.4050, L100.0100 ####[facility] [address] [place], [address] Potassium [Moles/Vol] 3.5 mmol/L Normal 3.3-5.1 [facility] Comment on above: Performed By: #### L 500.4050, L100.0100 ####[facility] [address] [place], [address] Sodium [Moles/Vol] 134 mmol/L Normal 133-145 [facility] Comment on above: Performed By: #### L 500.4050, L100.0100 ####[facility] [address] [place], [address] T PROT 6.2 g/dL Normal 5.9-8.4 [facility] Comment on above: Performed By: #### L 500.4050, L100.0100 ####[facility] [address] [place], [address] Urea nitrogen [Mass/Vol] 13 mg/dL Normal 4-19 [facility] Comment on above: Performed By: #### L 500.4050, L100.0100 ####[facility] [address] [place], [address] Eosinophil percentageOrdered By: Zachary Coffey on 05-17-2025 Eosinophils/100 WBC (Bld) 1.5 % 0-5 [facility] Erythrocyte distribution wid th ratioOrdered By: Zachary Coffey on 05-17-2025 Erythrocyte distribution width (RBC) [Ratio] 13.7 % 11.6-14.6 [facility] Erythrocyte distribution wid th standard deviationOrdered By: Zachary Coffey on 05-17-2025 Erythrocyte distribution width (RBC) [Ratio] 42.9 fl 35.1-43.9 [facility] Glomerular filtration rate ( GFR) estimation/1.73 sq m using serum, plasma, or whole bOrdered By: Zachary Coffey on 05-17-2025 GFR/1.73 sq M.predicted among non-blacks MDRD (S/P/Bld) [Vol rate/Area] 58 mL/min/{1.73_m2} Low >60 [facility] Comment on above: mL/min/1.73m2 CKD-EP I Creatinine Equation (2020) Hematocrit Auto (Bld) [Volum e fraction]Ordered By: Zachary Coffey on 05-17-2025 Hematocrit (Bld) [Volume fraction] 39.3 % 37-47 [facility] Hemoglobin measurementOrdere d By: Zachary Coffey on 05-17-2025 Hemoglobin (Bld) [Mass/Vol] 13.4 g/dL 12.0-15.0 [facility] Immature granulocytes/100 WB C Auto (Bld)Ordered By: Zachary Coffey on 05-17-2025 Immature granulocytes/100 WBC (Bld) 0.600 % 0.0-0.9 [facility] Comment on above: IG% - Immature Granu locytes (promyelocytes, myelocytes and metamyelocytes) > 1% indicates that a LEFT SHIFT is Present. Laboratory - Chemistry and C hemistry - challengeOrdered By: Zachary Coffey on 05-17-2025 AST [Catalytic activity/Vol] 16 U/L <32 [facility] MCV (mean corpuscular volume ) determinationOrdered By: Zachary Coffey on 05-17-2025 MCV (RBC) [Entitic vol] 86.0 fL 81-99 [facility] MR/CON.PCM.GIon 05-17-2025 MR/CON.PCM.GI [facility] Medical Records Department [address] [place] [address] Consultation - GI 05/17/251948 MR#: [id number] Acct: [id number] Name: NORA GRANDE Rep #: [id number] : 1955 70 From: Connor Friend DO PCP: Dr. Claudine Ruiz DO Status:ADM IN Location: [place] [id number] HPI Consult Data Date of Consult: 05/17/25 [...] Small benign-appearing hepatic cysts MRCP is pending [facility] Medical History Hx of emotional problems [...] % (Auto) 57.9, Lymph % (Auto) 25.6, [place] % (Auto) 13.6 H, Eos % (Auto) [...] Bilirubin 0.83, (more content not included)... Normal [facility] MRCP Abdomen without Contras ton 05-17-2025 MRCP Abdomen without Contrast [facility] Imaging Services [address] [place] [address] MRCP Abdomen without Contrast MR#: [id number] Acct: [id number] Name: NORA GRANDE Rep #: [id number] : 1955 F 70 From: Avelino salvador MD PCP: Dr. Claudine Ruiz DO Status: ADM IN Study: MRCP Abdomen without Contrast Date of Exam: Exam# [id number] Ordering Dr: Jaylen Mike MD PROCEDURE: MRCP [...] masses, possibly age related . Reading Location: [place] [address] CC: Dr. Claudine Ruiz DO; Dr. Jaylen Mike MD Tobacco Educator: Signed Normal [facility] Magnetic resonance imaging r eportOrdered By: Avelino Caruso on 05-17-2025 Study report [facility] Services [address] [place], [place] [address] MRCP Abdomen without Contrast MR#: [id number] Acct: [id number] Name: NORA GRANDE Rep #: [id number] : 1955 F 70 From: Ricki Caruso MD PCP: Dr. Claudine Ruiz DO Status: ADM IN Study:MRCP Abdomen without Contrast Date of E xam: 05/17/25 Exam# [id number] Ordering Dr: Jaylen Mike MD PROCEDURE: MRCP [...] masses, possibly age related . [facility] CC: Dr. Claudine Ruiz DO; Dr. Jaylen Mike MD ~ Tobacco Educator: Signed [facility] Mean corpuscular hemoglobin (MCH) determinationOrdered By: Zachary Coffey on 05-17-2025 MCH (RBC) [Entitic mass] 29.3 pg 27.0-32.0 [facility] Mean corpuscular hemoglobin concentration (MCHC) determinationOrdered By: Zachary Coffey on 05-17-2025 MCHC (RBC) [Mass/Vol] 34.1 g/dL 32-36 [facility] Mean platelet volume determi nationOrdered By: Zachary Coffey on 05-17-2025 Platelet mean volume (Bld) [Entitic vol] 10.3 fL 6.2-12.0 [facility] Monocyte percentageOrdered B y: Zachary Coffey on 05-17-2025 Monocytes/100 WBC (Bld) 13.6 % High 0-10 [facility] Neutrophil percentageOrdered By: Zachary Coffey on 05-17-2025 Neutrophils/100 WBC (Bld) 57.9 % 47-70 [facility] Nucleated red blood cell per centageOrdered By: Zachary Coffey on 05-17-2025 Nucleated RBC/100 WBC (Bld) [Ratio] 0 % 0-5 [facility] Platelet countOrdered By: Gregor Coffey on 05-17-2025 Platelets (Bld) [#/Vol] 279 10*3/uL 150-450 [facility] Potassium measurement (mass/ volume)Ordered By: Zachary Coffey on 05-17-2025 Potassium (Unsp spec) [Mass/Vol] 3.5 mmol/L 3.3-5.1 [facility] RBC Auto (Bld) [#/Vol]Ordere d By: Zachary Coffey on 05-17-2025 RBC (Bld) [#/Vol] 4.57 10*6/uL 4.2-5.4 [facility] Serum creatinine measurement (mass/volume)Ordered By: Zachary Coffey on 05-17-2025 Creatinine [Mass/Vol] 1.03 mg/dL 0.70-1.20 [facility] Serum globulin measurementOr dered By: Zachary Coffey on 05-17-2025 Globulin (S) [Mass/Vol] 2.8 g/dL 2.2-4.2 [facility] Serum glucose measurement (m ass/volume)Ordered By: Zachary Coffey on 05-17-2025 Glucose [Mass/Vol] 86 mg/dL 70-99 [facility] Serum or plasma alanine pemberton otransferase (ALT) measurementOrdered By: Zachary Coffey on 05-17-2025 ALT [Catalytic activity/Vol] 11 U/L <35 [facility] Serum or plasma albumin tomas urement (mass/volume)Ordered By: Zachary Coffey on 05-17-2025 Albumin [Mass/Vol] 3.4 g/dL 3.4-4.8 [facility] Serum or plasma albumin/glob ulin mass ratioOrdered By: Zachary Coffey on 05-17-2025 Albumin/Globulin [Mass ratio] 1.2 {ratio} 0.9-2.4 [facility] Serum or plasma alkaline grey sphatase measurementOrdered By: Zachary Coffey on 05-17-2025 ALP [Catalytic activity/Vol] 82 U/L 35-104 [facility] Serum or plasma calcium tomas urement (mass/volume)Ordered By: Zachary Coffey on 05-17-2025 Calcium [Mass/Vol] 8.4 mg/dL 7.6-11.0 [facility] Serum or plasma urea nitroge n measurement (mass/volume)Ordered By: Zachary Coffey on 05-17-2025 Urea nitrogen [Mass/Vol] 13 mg/dL 4-19 [facility] Sodium levelOrdered By: Zachary Coffey on 05-17-2025 Sodium [Moles/Vol] 134 mmol/L 133-145 [facility] Total proteinOrdered By: Radha Coffey on 05-17-2025 Protein [Mass/Vol] 6.2 g/dL 5.9-8.4 [facility] White blood cell (WBC) count Ordered By: Zachary Coffey on 05-17-2025 WBC (Bld) [#/Vol] 11.0 10*3/uL 4.4-11.0 [facility] 12 Lead EKGon 05-16-2025 12 Lead EKG [facility] Cardi[facility] Services [address] [place] [address] 12 Lead EKG 05/17/25 0528 MR#: [id number] Acct: [id number] Name: NORA GRANDE Rep #: [id number] : 1955 70 From: Morgan Mckeon MD Attending Dr: Dr. Yordan Newman MD Status: ADM IN Ordering Dr: Jorge Og MD Date: 05/16/25 Location: [facility] [place] Sex: F C Admitted: 05/16/25 Test Reason [...] found Confirmed by FRANCIS CABALLERO, MORGAN ([id number]), editor book BOYD ASHBY ([id number]) on 05/18/2025 8:58:01 AM Referred By: PUNEET Confirmed By: MORGAN MCKEON MD 05/18/25 0858 Date Morgan Mckeon MD CC: Dr. Jorge Og MD; Dr. Yordan Newman MD; Dr. Claudine Ruiz DO Signed Normal [facility] Abdomen/Pelvis W IV Cont ONL Yon 05-16-2025 Abdomen/Pelvis W IV Cont ONLY [facility] Imaging Services [address] [place] [address] Abdomen/Pelvis W IV Cont ONLY MR#: [id number] Acct: [id number] Name: NORA GRANDE Rep #: [id number] : 1955 F 70 From: Eze Weems MD PCP: Dr. Claudine Ruiz DO Status: REG ER Study: Abdomen/Pelvis W IV Cont ONLY Date of Exam: Exam# [id number] Ordering Dr: Tamara Neal MD PROCEDURE: ABDOMEN/PELVIS [...] normal. Cholelithiasis. No definitive choledocholithiasis. Reading Location: [place] [address] CC: Dr. Tamara Neal MD; Dr. Claudine Ruiz DO Tobacco Educator: Signed Normal [facility] Bilirubin Test strip Ql (U)O rdered By: Tamara Neal on 05-16-2025 Bilirubin Ql (U) Negative Negative [facility] CBC W/Diff, Automatedon 04-19 Absolute Lymph 2.63 X10 3/uL Normal 0.83-4.51 [facility] Comment on above: Performed By: #### L 501.2450, L100.0100, L500.4050 #### [facility] [address] [place], [address] Absolute Neut 7.9 X10 3/uL High 2.0-7.7 [facility] Comment on above: Performed By: #### L 501.2450, L100.0100, L500.4050 #### [facility] [address] [place], [address] Basophils/100 WBC (Bld) 0.8 % Normal 0-1 [facility] Comment on above: Performed By: #### L 501.2450, L100.0100, L500.4050 #### [facility] [address] [place], [address] Eosinophils/100 WBC (Bld) 0.9 % Normal 0-5 [facility] Comment on above: Performed By: #### L 501.2450, L100.0100, L500.4050 #### [facility] [address] [place], [address] Erythrocyte distribution width (RBC) [Ratio] 13.8 % Normal 11.6-14.6 [facility] Comment on above: Performed By: #### L 501.2450, L100.0100, L500.4050 #### [facility] [address] [place], [address] Hematocrit (Bld) [Volume fraction] 44.0 % Normal 37-47 [facility] Comment on above: Performed By: #### L 501.2450, L100.0100, L500.4050 #### [facility] [address] [place], [address] Hemoglobin (Bld) [Mass/Vol] 14.6 g/dL Normal 12.0-15.0 [facility] Comment on above: Performed By: #### L 501.2450, L100.0100, L500.4050 #### [facility] [address] [place], [address] IG% 0.600 Normal 0.0-0.9 [facility] Comment on above: Result Comment: IG% - Immature Granulocytes (promyelocytes, myelocytes and metamyelocytes) > 1% indicates that a LEFT SHIFT is Present. Performed By: #### L 501.2450, L100.0100, L500.4050 #### [facility] [address] [place], [address] Lymphocytes/100 WBC (Bld) 21.9 % Normal 19-41 [facility] Comment on above: Performed By: #### L 501.2450, L100.0100, L500.4050 #### [facility] [address] [place], [address] MCH (RBC) [Entitic mass] 29.3 pg Normal 27.0-32.0 [facility] Comment on above: Performed By: #### L 501.2450, L100.0100, L500.4050 #### [facility] [address] [place], [address] MCHC (RBC) [Mass/Vol] 33.2 g/dL Normal 32-36 [facility] Comment on above: Performed By: #### L 501.2450, L100.0100, L500.4050 #### [facility] [address] [place], [address] MCV (RBC) [Entitic vol] 88.2 fL Normal 81-99 [facility] Comment on above: Performed By: #### L 501.2450, L100.0100, L500.4050 #### [facility] [address] [place], [address] Monocytes/100 WBC (Bld) 10.2 % High 0-10 [facility] Comment on above: Performed By: #### L 501.2450, L100.0100, L500.4050 #### [facility] [address] [place], [address] Neutrophils/100 WBC (Bld) 65.6 % Normal 47-70 [facility] Comment on above: Performed By: #### L 501.2450, L100.0100, L500.4050 #### [facility] [address] [place], [address] Nucleated RBC (Bld) [#/Vol] 0 10*3/uL Normal 0-5 [facility] Comment on above: Performed By: #### L 501.2450, L100.0100, L500.4050 #### [facility] [address] [place], [address] Platelet mean volume (Bld) [Entitic vol] 10.2 fL Normal 6.2-12.0 [facility] Comment on above: Performed By: #### L 501.2450, L100.0100, L500.4050 #### [facility] [address] [place], [address] Platelets (Bld) [#/Vol] 292 10*3/uL Normal 150-450 [facility] Comment on above: Performed By: #### L 501.2450, L100.0100, L500.4050 #### [facility] [address] [place], [address] RBC (Bld) [#/Vol] 4.99 10*6/uL Normal 4.2-5.4 [facility] Comment on above: Performed By: #### L 501.2450, L100.0100, L500.4050 #### [facility] [address] [place], [address] RDW SD 44.4 fl High 35.1-43.9 [facility] Comment on above: Performed By: #### L 501.2450, L100.0100, L500.4050 #### [facility] [address] [place], [address] WBC (Bld) [#/Vol] 12.0 10*3/uL High 4.4-11.0 [facility] Comment on above: Performed By: #### L 501.2450, L100.0100, L500.4050 #### [facility] [address] [place], [address] CNOVon 05-16-2025 CNOV Office Visit ([facility]) NORA GRANDE ([id number]) 1955 F T Date Time Provider Department 05/16/25 1:45 PM CHASE CRAWFORD During your visit today, we recorded the following information about you: Chase Crawford MD 05/16/2025 1:50 PM Signed [facility] Triage Note: Patient presents to the [facility] care with complaint of left abdominal pain, blood in stool, and cough over the last 4 days. She is uncomfortable with transitions. She chooses ER evaluation and will go to [facility] ED. Allergies As of Date: 05/16/2025 [...] 1 tablet by mouth once daily. Dr Ruiz - DULoxetine (CYMBALTA) 60 mg capsule Take 1 capsule by mouth once daily. - CPAP CPAP 11 cmH2O, suitable mask, tubing, humidifier, filters. Lifetime supplies. Dx: 327.23 - Obstructive sleep apnea Problem List As Of Date 05/16/2025 Noted Resolved Routine general medical examination at [facility]*05/13/2011 12/22/2012 Class: Chronic Routine gynecological examination [...] Status:Closed by CHASE CRAWFORD on 05/16/25 Normal [facility] Metabolic Prof ilon 05-16-2025 Albumin [Mass/Vol] 3.6 g/dL Normal 3.4-4.8 [facility] Comment on above: Performed By: #### L 501.2450, L100.0100, L500.4050 #### [facility] [address] [place], [address] Albumin/Globulin [Mass ratio] 1.1 {ratio} Normal 0.9-2.4 [facility] Comment on above: Performed By: #### L 501.2450, L100.0100, L500.4050 #### [facility] [address] [place], [address] ALK PHOS 75 U/L Normal 35-104 [facility] Comment on above: Performed By: #### L 501.2450, L100.0100, L500.4050 #### [facility] [address] [place], [address] ALT [Catalytic activity/Vol] 13 U/L Normal <=34 [facility] Comment on above: Performed By: #### L 501.2450, L100.0100, L500.4050 #### [facility] [address] [place], [address] AST [Catalytic activity/Vol] 14 U/L Normal <=31 [facility] Comment on above: Performed By: #### L 501.2450, L100.0100, L500.4050 #### [facility] [address] [place], [address] Bilirubin [Mass/Vol] 0.82 mg/dL Normal 0.00-1.30 [facility] Comment on above: Performed By: #### L 501.2450, L100.0100, L500.4050 #### [facility] [address] [place], [address] BUN/CRE 11.7 RATIO Normal 10-20 [facility] Comment on above: Performed By: #### L 501.2450, L100.0100, L500.4050 #### [facility] [address] [place], [address] Calcium [Mass/Vol] 9.2 mg/dL Normal 7.6-11.0 [facility] Comment on above: Performed By: #### L 501.2450, L100.0100, L500.4050 #### [facility] [address] [place], [address] Chloride [Moles/Vol] 99 mmol/L Normal 98-108 [facility] Comment on above: Performed By: #### L 501.2450, L100.0100, L500.4050 #### [facility] [address] [place], [address] CO2 [Moles/Vol] 21.6 mmol/L Normal 21.0-32.0 [facility] Comment on above: Performed By: #### L 501.2450, L100.0100, L500.4050 #### [facility] [address] [place], [address] Creatinine [Mass/Vol] 1.17 mg/dL Normal 0.70-1.20 [facility] Comment on above: Performed By: #### L 501.2450, L100.0100, L500.4050 #### [facility] [address] [place], [address] ECRCL 39.17 ml/min Low 50-250 [facility] Comment on above: Performed By: #### L 501.2450, L100.0100, L500.4050 #### [facility] [address] [place], [address] GAP 13 Normal 5-15 [facility] Comment on above: Performed By: #### L 501.2450, L100.0100, L500.4050 #### [facility] [address] [place], [address] GFR/1.73 sq M.predicted among non-blacks MDRD (S/P/Bld) [Vol rate/Area] 50 mL/min/{1.73_m2} Low >60 [facility] Comment on above: Result Comment: mL/m in/1.73m2 CKD-EPI Creatinine Equation (2020) Performed By: #### L 501.2450, L100.0100, L500.4050 #### [facility] [address] [place], [address] Globulin (S) [Mass/Vol] 3.3 g/dL Normal 2.2-4.2 [facility] Comment on above: Performed By: #### L 501.2450, L100.0100, L500.4050 #### [facility] [address] [place], [address] Glucose [Mass/Vol] 146 mg/dL High 70-99 [facility] Comment on above: Performed By: #### L 501.2450, L100.0100, L500.4050 #### [facility] [address] [place], [address] Potassium [Moles/Vol] 3.5 mmol/L Normal 3.3-5.1 [facility] Comment on above: Performed By: #### L 501.2450, L100.0100, L500.4050 #### [facility] [address] [place], [address] Sodium [Moles/Vol] 134 mmol/L Normal 133-145 [facility] Comment on above: Performed By: #### L 501.2450, L100.0100, L500.4050 #### [facility] [address] [place], [address] T PROT 7.0 g/dL Normal 5.9-8.4 [facility] Comment on above: Performed By: #### L 501.2450, L100.0100, L500.4050 #### [facility] [address] [place], [address] Urea nitrogen [Mass/Vol] 14 mg/dL Normal 4-19 [facility] Comment on above: Performed By: #### L 501.2450, L100.0100, L500.4050 #### [facility] [address] [place], [address] Emergency Department Summary on 05-16-2025 Emergency Department Summary [facility] Medical Records Department [address] [place] [address] Emergency Department Summary 05/16/25 MR#: [id number] Acct: [id number] Name: NORA GRANDE Rep #: [id number] : 1955 70 From: Tamara Neal MD PCP: Dr. Claudine Ruiz, DO Status:ADM IN [facility] HPI - GI History of Present [...] No guarding or rebound. : done with driver examiner at bedside. No hemorrhoids or fissures noted. [...] Pressure Mean (more content not included)... Normal [facility] Gallbladderon 05-16-2025 Gallbladder [facility] Imaging Services [address] [place], [place] [address] Gallbladder MR#: [id number] Acct: [id number] Name: NORA GRANDE Rep #: [id number] : 1955 F 70 From: Serafin Rubio MD PCP: Dr. Claudine Ruiz DO Status: REG ER Study: Gallbladder Date of Exam: 05/16/25 Exam# [id number] Ordering Dr: Tamara Neal MD PROCEDURE: US [...] steatosis. Small benign-appearing hepatic cysts. Reading Location: [facility] CC: Dr. Tamara Neal MD; Dr. Claudine Ruiz DO Tobacco Educator: Signed Normal [facility] Ketones Test strip Ql (U)Ord ered By: Tamara Neal on 05-16-2025 Ketones Ql (U) Negative Negative [facility] Lipaseon 05-16-2025 Lipase [Catalytic activity/Vol] 18 U/L Normal 13-75 [facility] Comment on above: Result Comment: Plea se note: LIPASE revised reference range effective 22. New Lipase methodology. Expected to produce lower values than the previous assay method. NEW Reference Range: 13 - 75 U/L Performed By: #### L 501.2450, L100.0100, L500.4050 #### [facility] [address] [place], [address] Lipase measurementOrdered By : Tamara Neal on 05-16-2025 Lipase [Catalytic activity/Vol] 18 U/L 13-75 [facility] Comment on above: Please note:LIPASE r evised reference range effective 22. New Lipase methodology. Expected to produce lower values than the previous assay method. NEW Reference Range: 13 - 75 U/L Microscopic analysis of urin e for red blood cells (RBC)Ordered By: Tamara Neal on 05-16-2025 Microscopic analysis of urine for red blood cells (RBC) 0-5 SEEN /hpf 0-5 [facility] Mucus LM Ql (Urine sed)Order ed By: Tamara Neal on 05-16-2025 Mucus Ql (Urine sed) 0 SEEN /hpf [facility] Nitrite Test strip Ql (U)Ord ered By: Tamara Neal on 05-16-2025 Nitrite Ql (U) Negative Negative [facility] Protein Test strip Ql (U)Ord ered By: Tamara Neal on 05-16-2025 Protein Ql (U) 30 mg/dl High Negative [facility] Squamous epithelial cells de tection in urine sediment by light microscopyOrdered By: Tamara Neal on 05-16-2025 Epithelial cells.squamous LM Ql (Urine sed) 0-5 SEEN /hpf 5-10 [facility] Stool Occult Blood iFOBon STOB Positive Normal [facility] Comment on above: Performed By: #### M 100.7900 ####[facility] [id number] [place], [place], [id number] Stool gastrointestinal hemog lobin detection by immunologic methodOrdered By: Tamara Neal on 05-16-2025 Lower GI hemoglobin IA Ql (Stl) Positive Abnormal [facility] Urinalysis, Completeon 05-16 EPI,SQUAMOUS 0-5 SEEN Normal 5-10 [facility] Comment on above: Order Comment: COLLE CTOR TO SPECIFY Performed By: #### L 400.0001 #### [facility] [address] [place], [address] RBC 0-5 SEEN Normal 0-5 [facility] Comment on above: Order Comment: ADRI CTOR TO SPECIFY Performed By: #### L 400.0001 #### [facility] [address] [place], [address] WBC 0-5 SEEN Normal 0-5 [facility] Comment on above: Order Comment: ADRI CTOR TO SPECIFY Performed By: #### L 400.0001 #### [facility] [address] [place], [address] BACTERIA 0 SEEN Normal None Seen [facility] Comment on above: Order Comment: ADRI CTOR TO SPECIFY Performed By: #### L 400.0001 #### [facility] [address] [place], [address] Mucus Ql (Urine sed) 0 SEEN Normal [facility] Comment on above: Order Comment: ADRI CTOR TO SPECIFY Performed By: #### L 400.0001 #### [facility] [address] [place], [address] Urine clarityOrdered By: Maryjane Neal on 05-16-2025 Clarity (U) Clear Clear [facility] Urine color determinationOrd ered By: Tamara Neal on 05-16-2025 Color (U) Yellow Yellow [facility] Urine glucose detectionOrder ed By: Tamara Neal on 05-16-2025 Glucose Ql (U) Normal mg/dl Normal [facility] Urine leukocyte esterase det ection by dipstickOrdered By: Tamara Neal on 05-16-2025 Leukocyte esterase Test strip Ql (U) 25 /ul High Negative [facility] Urine pHOrdered By: Tamara elizabeth on 05-16-2025 pH (U) 6.0 [pH] 5.0 - 8.0 [facility] Urine sediment bacteria coun t by microscopy (number/high power field)Ordered By: Tamara Neal on 05-16-2025 Bacteria LM.HPF (Urine sed) [#/Area] 0 /[HPF] None Seen [facility] Urine specific gravity measu rementOrdered By: Tamara Neal on 05-16-2025 Specific gravity (U) [Rel density] 1.010 1.002-1.030 [facility] Urine urobilinogen measureme ntOrdered By: Tamara Neal on 05-16-2025 Urobilinogen Ql (U) Normal mg/dl Normal [facility] White blood cell countOrdere d By: Tamara Neal on 05-16-2025 White blood cell count 0-5 SEEN /hpf 0-5 [facility] Breast imaging reportOrdered By: Coleen Arizmendi on 03-02-2025 Study report [facility] Imaging Services [address] [place] [address] SCRN MAMM (CAD)W/LISA BILAT MR#: [id number] Acct: [id number] Name: NORA GRANDE Rep #: [id number] : 1955 F 70 From: Becky Arizmendi MD PCP: Dr. Claudine Ruiz DO Status: [facility] CLI Study:SCRN MAMM (CAD)W/LISA BILAT Date of Exa m: 03/02/25 Exam# [id number] Ordering Dr: Claudine Ruiz DO EXAM: SCRN MAMM (CAD)W/LISA BILAT DATE: [...] be mailed to the patient. Reading Location: [id number] CC: Dr. Claudine Ruiz DO ~ Tobacco Educator: Signed [facility] SCRN MAMM (CAD)W/LISA BILATo n 03-02-2025 SCRN MAMM (CAD)W/LISA BILAT [facility] Imaging Services [address] [place] [address] SCRN MAMM (CAD)W/LISA BILAT MR#: [id number] Acct: [id number] Name: NORA GRANDE Rep #: [id number] : 1955 F 70 From: Coleen Arizmendi MD PCP: Dr. Claudine Ruiz DO Status: REG CLI Study: SCRN MAMM (CAD)W/LISA BILAT Date of Exam: 02/15 02/09 Exam# [id number] Ordering Dr: Claudine Ruiz DO EXAM: SCRN MAMM (CAD)W/LISA BILAT DATE: [...] be mailed to the patient. Reading Location: [id number] CC: Dr. Claudine Ruiz DO Tobacco Educator: Signed Normal [facility] Pulmonary Visit Reporton Pulmonary Visit Report [facility] [place] [address] [place] [address] OFFICE VISIT Date of Service: 11/02/24 MR#: [id number] Acct: [id number] Name: NORA GRANDE Rep #: [id number] : 1955 Provider: FEDERICO Hatfield Age/Sex: 69/F [facility] Status: Signed Assessment and Plan Assessment and [...] you recall she has a greater than 45-feon-viuq history. 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 Normal [facility] Pulmonary Visit Reporton Pulmonary Visit Report [facility] [place] [address] [place] [address] OFFICE VISIT Date of Service: 07/02/24 MR#: [id number] Acct: [id number] Name: NORA GRANDE Rep #: [id number] : 1955 Provider: FEDERICO Hatfield Age/Sex: 69/F Location: [facility] [place] Status: Signed with Addenda ADDENDUM by Tracie Vieira on 08/17/24 at 1109 Office Procedure Documentation entered by Tracie Vieira 08/17/24 11:09: Smoking Cessation Smoking Cessation 07/02/24. Encourage ongoing smoking cessation. The patient remains appropriate for repeat LDCT which is due in September 2024, ordered accordingly. Time Spent 3-10 minutes: Yes Date cc: Dr. Claudine Ruiz, DO * Signed Assessment and Plan Assessment [...] ordered accordingly. Plan Details Follow Up: 10/16/24 ([facility]) [facility] HPI Comments Details: This patient presents to [...] between smoking. She socially smokes and will "bum one" off of friends. She is vaping daily. The patient reports that she feels rested when she wakes up in the morning. She does not require naps and denies nodding off to sleep unintentionally. She has about 1 episode of nocturia nightly. She does have "very bad dry mouth" but she denies any morning headaches. 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 Normal [facility] CNOVon 08-28-2021 CNOV Normal [facility] CNOVon 05-22-2021 CNOV [facility] CNOVon 03-20-2021 CNOV Normal [facility] CNOVon 02-21-2021 CNOV [facility] CT BRAIN WO IVCONon 02-22-[address] BRAIN WO IVCON [facility] ED NOTEon 02-21-2021 ED NOTE HNO ID: [id number] Author: Dionna Enriquez RN Service: Emergency Medicine Author Type: Registered Nurse Type: ED Notes Filed: 02/21/2021 2:34 PM Note Text: Outside to smoke- awaiting transportation [facility] ED NOTE HNO ID: [id number] Author: Cornelia Adrian RN Service: Emergency Medicine Author Type: Registered Nurse Type: ED Notes Filed: 02/21/2021 2:31 PM Note Text: DSD applied to forehead, held in place with adriano wrap. Pt tolerated well. Normal [facility] ED PROV NOTEon 02-21-2021 ED PROV NOTE Normal [facility] ED PROV NOTE Normal [facility] CNOVon 02-20-2021 CNOV Normal [facility] CNPNon 02-13-2021 CNPN Normal [facility] CNPNon 02-07-2021 CNPN Normal [facility] Basic metabolic 2000 panelon 01-20-2021 Anion gap [Moles/Vol] 6 mmol/L Low 9-18 [facility] Comment on above: Order Comment: Speci men Type: BLOOD SPECIMEN Performed By: #### 2 4321-2 ####[facility] LABORATORYCLIA [id number] [place] [address] Calcium [Mass/Vol] 8.9 mg/dL Normal 8.5-10.2 [facility] Comment on above: Order Comment: Speci men Type: BLOOD SPECIMEN Performed By: #### 2 4321-2 ####[facility]ATORYCLIA [id number] [place] [address] Chloride [Moles/Vol] 99 mmol/L Normal 97-105 [facility] Comment on above: Order Comment: Speci men Type: BLOOD SPECIMEN Performed By: #### 2 4321-2 ####[facility]ORATORYCLIA [id number] [place] [address] CO2 [Moles/Vol] 31 mmol/L High 22-30 [facility] Comment on above: Order Comment: Speci men Type: BLOOD SPECIMEN Performed By: #### 2 4321-2 ####[facility] LABORATORYCLIA [id number] [place] [address] Creatinine [Mass/Vol] 0.63 mg/dL Normal 0.58-0.96 [facility] Comment on above: Order Comment: Speci men Type: BLOOD SPECIMEN Performed By: #### 2 4321-2 ####[facility]ORATORYCLIA [id number] [place] [address] GFR/1.73 sq M.predicted MDRD (S/P/Bld) [Vol rate/Area] mL/min/{1.73_m2} Normal [facility] Comment on above: Order Comment: Speci [...] actual GFR. Performed By: #### 2 4321-2 ####[facility] LABORATORYCLIA [id number] [place] [address] Glucose [Mass/Vol] 168 mg/dL High 74-99 [facility] Comment on above: Order Comment: Speci men Type: BLOOD SPECIMEN Result Comment: The [place] Diabetes Association (ADA) provides guidance for cutoff [...] Standards of Medical Care in Diabetes 2016, [place] [employer]. Diabetes Care. 2016.39(Suppl 1). Performed By: #### 2 4321-2 ####[facility] LABORATORYCLIA [id number] [place] [address] Potassium [Moles/Vol] 3.7 mmol/L Normal 3.7-5.1 [facility] Comment on above: Order Comment: [facility] Type: BLOOD SPECIMEN Performed By: #### 2 4321-2 ####[facility]ORATORYCLIA [id number] [place] [address] Sodium [Moles/Vol] 136 mmol/L Normal 136-144 [facility] Comment on above: Order Comment: Speci men Type: BLOOD SPECIMEN Performed By: #### 2 4321-2 ####[facility] LABORATORYCLIA [id number] [place] [address] Urea nitrogen [Mass/Vol] 13 mg/dL Normal 7-21 [facility] Comment on above: Order Comment: Speci men Type: BLOOD SPECIMEN Performed By: #### 2 4321-2 ####[facility] LABORATORYCLIA [id number] [place] [address] CASE MANAGEMon 01-20-2021 CASE MANAGEM Normal [facility] CASE MANAGEM Normal [facility] CBC panel Auto (Bld)on 01-20 Erythrocyte distribution width (RBC) [Ratio] 16.4 % High 11.5-15.0 [facility] Comment on above: Order Comment: Speci men Type: BLOOD SPECIMEN Performed By: #### 5 8410-2 ####[facility] LABORATORYCLIA [id number] [place] [address] Hematocrit (Bld) [Volume fraction] 23.7 % Low 36.0-46.0 [facility] Comment on above: Order Comment: Speci men Type: BLOOD SPECIMEN Performed By: #### 5 8410-2 ####[facility]ATORYCLIA [id number] [place] [address] Hemoglobin (Bld) [Mass/Vol] 7.4 g/dL Low 11.5-15.5 [facility] Comment on above: Order Comment: Speci men Type: BLOOD SPECIMEN Performed By: #### 5 8410-2 ####[facility]ATORYCLIA [id number] [place] [address] MCH (RBC) [Entitic mass] 29.1 pg Normal 26.0-34.0 [facility] Comment on above: Order Comment: Speci men Type: BLOOD SPECIMEN Performed By: #### 5 8410-2 ####[facility] LABORATORYCLIA [id number] [place] [address] MCHC (RBC) [Mass/Vol] 31.2 g/dL Normal 30.5-36.0 [facility] Comment on above: Order Comment: Speci men Type: BLOOD SPECIMEN Performed By: #### 5 8410-2 ####[facility] LABORATORYCLIA [id number] [place] [address] MCV (RBC) [Entitic vol] 93.3 fL Normal 80.0-100.0 [facility] Comment on above: Order Comment: Speci men Type: BLOOD SPECIMEN Performed By: #### 5 8410-2 ####[facility] LABORATORYCLIA [id number] [place] [address] Nucleated RBC (Bld) [#/Vol] 0.02 10*3/uL High <0.01 [facility] Comment on above: Order Comment: Speci men Type: BLOOD SPECIMEN Performed By: #### 5 8410-2 ####[facility] LABORATORYCLIA [id number] [place] [address] Platelet mean volume (Bld) [Entitic vol] 10.3 fL Normal 9.0-12.7 [facility] Comment on above: Order Comment: Speci men Type: BLOOD SPECIMEN Performed By: #### 5 8410-2 ####[facility] LABORATORYCLIA [id number] [place] [address] Platelets (Bld) [#/Vol] 318 10*3/uL Normal 150-400 [facility] Comment on above: Order Comment: Speci men Type: BLOOD SPECIMEN Performed By: #### 5 8410-2 ####[facility] LABORATORYCLIA [id number] [place] [address] RBC (Bld) [#/Vol] 2.54 10*6/uL Low 3.90-5.20 [facility] Comment on above: Order Comment: Speci men Type: BLOOD SPECIMEN Performed By: #### 5 8410-2 ####[facility] LABORATORYCLIA [id number] [place] [address] WBC (Bld) [#/Vol] 15.87 10*3/uL High 3.70-11.00 [facility] Comment on above: Order Comment: Speci men Type: BLOOD SPECIMEN Performed By: #### 5 8410-2 ####[facility]ORATORYCLIA [id number] [place] [address] CNDSon 01-20-2021 CNDS Normal [facility] Basic metabolic 2000 panelon 01-19-2021 Anion gap [Moles/Vol] 7 mmol/L Low 9-18 [facility] Comment on above: Order Comment: Speci men Type: BLOOD SPECIMEN Performed By: #### 2 4321-2 ####[facility] LABORATORYCLIA [id number] [place] [address] Calcium [Mass/Vol] 8.7 mg/dL Normal 8.5-10.2 [facility] Comment on above: Order Comment: Speci men Type: BLOOD SPECIMEN Performed By: #### 2 4321-2 ####[facility]ATORYCLIA [id number] [place] [address] Chloride [Moles/Vol] 99 mmol/L Normal 97-105 [facility] Comment on above: Order Comment: Speci men Type: BLOOD SPECIMEN Performed By: #### 2 4321-2 ####[facility] LABORATORYCLIA [id number] [place] [address] CO2 [Moles/Vol] 29 mmol/L Normal 22-30 [facility] Comment on above: Order Comment: Speci men Type: BLOOD SPECIMEN Performed By: #### 2 4321-2 ####[facility]ORATORYCLIA [id number] [place] [address] Creatinine [Mass/Vol] 0.64 mg/dL Normal 0.58-0.96 [facility] Comment on above: Order Comment: Speci men Type: BLOOD SPECIMEN Performed By: #### 2 4321-2 ####[facility]ORATORYCLIA [id number] [place] [address] GFR/1.73 sq M.predicted MDRD (S/P/Bld) [Vol rate/Area] mL/min/{1.73_m2} Normal [facility] Comment on above: Order Comment: Speci [...] actual GFR. Performed By: #### 2 4321-2 ####[facility] LABORATORYCLIA [id number] [place] [address] Glucose [Mass/Vol] 145 mg/dL High 74-99 [facility] Comment on above: Order Comment: Speci men Type: BLOOD SPECIMEN Result Comment: The [place] Diabetes Association (ADA) provides guidance for cutoff [...] Standards of Medical Care in Diabetes 2016, [place] [employer]. Diabetes Care. 2016.39(Suppl 1). Performed By: #### 2 4321-2 ####[facility] LABORATORYCLIA [id number] [place] [address] Potassium [Moles/Vol] 3.9 mmol/L Normal 3.7-5.1 [facility] Comment on above: Order Comment: Speci men Type: BLOOD SPECIMEN Performed By: #### 2 4321-2 ####[facility]ORATORYCLIA [id number] [place] [address] Sodium [Moles/Vol] 135 mmol/L Low 136-144 [facility] Comment on above: Order Comment: Speci men Type: BLOOD SPECIMEN Performed By: #### 2 4321-2 ####[facility]ORATORYCLIA [id number] [place] [address] Urea nitrogen [Mass/Vol] 9 mg/dL Normal 7-21 [facility] Comment on above: Order Comment: Speci men Type: BLOOD SPECIMEN Performed By: #### 2 4321-2 ####[facility] LABORATORYCLIA [id number] [place] [address] CASE MANAGEMon 01-19-2021 CASE MANAGEM Normal [facility] CBC panel Auto (Bld)on 01-19 Erythrocyte distribution width (RBC) [Ratio] 16.8 % High 11.5-15.0 [facility] Comment on above: Order Comment: Speci men Type: BLOOD SPECIMEN Performed By: #### 5 8410-2 ####[facility] LABORATORYCLIA [id number] [place] [address] Hematocrit (Bld) [Volume fraction] 24.9 % Low 36.0-46.0 [facility] Comment on above: Order Comment: Speci men Type: BLOOD SPECIMEN Performed By: #### 5 8410-2 ####[facility] LABORATORYCLIA [id number] [place] [address] Hemoglobin (Bld) [Mass/Vol] 7.8 g/dL Low 11.5-15.5 [facility] Comment on above: Order Comment: Speci men Type: BLOOD SPECIMEN Performed By: #### 5 8410-2 ####[facility] LABORATORYCLIA [id number] [place] [address] MCH (RBC) [Entitic mass] 28.8 pg Normal 26.0-34.0 [facility] Comment on above: Order Comment: Speci men Type: BLOOD SPECIMEN Performed By: #### 5 8410-2 ####[facility]ATORYCLIA [id number] [place] [address] MCHC (RBC) [Mass/Vol] 31.3 g/dL Normal 30.5-36.0 [facility] Comment on above: Order Comment: Speci men Type: BLOOD SPECIMEN Performed By: #### 5 8410-2 ####[facility] LABORATORYCLIA [id number] [place] [address] MCV (RBC) [Entitic vol] 91.9 fL Normal 80.0-100.0 [facility] Comment on above: Order Comment: Speci men Type: BLOOD SPECIMEN Performed By: #### 5 8410-2 ####[facility] LABORATORYCLIA [id number] [place] [address] Nucleated RBC (Bld) [#/Vol] 10*3/uL Normal <0.01 [facility] Comment on above: Order Comment: Speci men Type: BLOOD SPECIMEN Performed By: #### 5 8410-2 ####[facility] LABORATORYCLIA [id number] [place] [address] Platelet mean volume (Bld) [Entitic vol] 10.6 fL Normal 9.0-12.7 [facility] Comment on above: Order Comment: Speci men Type: BLOOD SPECIMEN Performed By: #### 5 8410-2 ####[facility] LABORATORYCLIA [id number] [place] [address] Platelets (Bld) [#/Vol] 297 10*3/uL Normal 150-400 [facility] Comment on above: Order Comment: Speci men Type: BLOOD SPECIMEN Performed By: #### 5 8410-2 ####[facility] LABORATORYCLIA [id number] [place] [address] RBC (Bld) [#/Vol] 2.71 10*6/uL Low 3.90-5.20 [facility] Comment on above: Order Comment: Speci men Type: BLOOD SPECIMEN Performed By: #### 5 8410-2 ####[facility] LABORATORYCLIA [id number] [place] [address] WBC (Bld) [#/Vol] 19.47 10*3/uL High 3.70-11.00 [facility] Comment on above: Order Comment: Speci men Type: BLOOD SPECIMEN Performed By: #### 5 8410-2 ####[facility]ORATORYCLIA [id number] [place] [address] NUTRITIONon 01-19-2021 NUTRITION Normal [facility] THERAPY NTon 01-19-2021 THERAPY NT Normal [facility] THERAPY NT Normal [facility] UA WITH CULTURE IF INDICATED on 01-19-2021 UA WITH CULTURE IF INDICATED Low [facility] Comment on above: Order Comment: Speci men Type: URINE SPECIMEN Performed By: #### U ACII ####[facility] LABORATORYCLIA [id number] [place] [address] Basic metabolic 2000 panelon 01-18-2021 Anion gap [Moles/Vol] 7 mmol/L Low 9-18 [facility] Comment on above: Order Comment: Speci men Type: BLOOD SPECIMEN Performed By: #### 2 4321-2 ####[facility]ORATORYCLIA [id number] [place] [address] Calcium [Mass/Vol] 8.3 mg/dL Low 8.5-10.2 [facility] Comment on above: Order Comment: Speci men Type: BLOOD SPECIMEN Performed By: #### 2 4321-2 ####[facility]ORATORYCLIA [id number] [place] [address] Chloride [Moles/Vol] 103 mmol/L Normal 97-105 [facility] Comment on above: Order Comment: Speci men Type: BLOOD SPECIMEN Performed By: #### 2 4321-2 ####[facility]ORATORYCLIA [id number] [place] [address] CO2 [Moles/Vol] 29 mmol/L Normal 22-30 [facility] Comment on above: Order Comment: Speci men Type: BLOOD SPECIMEN Performed By: #### 2 4321-2 ####[facility]ORATORYCLIA [id number] [place] [address] Creatinine [Mass/Vol] 0.64 mg/dL Normal 0.58-0.96 [facility] Comment on above: Order Comment: [facility] Type: BLOOD SPECIMEN Performed By: #### 2 4321-2 ####[facility] LABORATORYCLIA [id number] [place] [address] GFR/1.73 sq M.predicted MDRD (S/P/Bld) [Vol rate/Area] mL/min/{1.73_m2} Normal [facility] Comment on above: Order Comment: Speci [...] actual GFR. Performed By: #### 2 4321-2 ####[facility] LABORATORYIA [id number] [place] [address] Glucose [Mass/Vol] 132 mg/dL High 74-99 [facility] Comment on above: Order Comment: [facility] Type: BLOOD SPECIMEN Result Comment: The [place] Diabetes Association (ADA) provides guidance for cutoff [...] Standards of Medical Care in Diabetes 2016, [place] [employer]. Diabetes Care. 2016.39(Suppl 1). Performed By: #### 2 4321-2 ####[facility] LABORATORYCLIA [id number] [place] [address] Potassium [Moles/Vol] 4.0 mmol/L Normal 3.7-5.1 [facility] Comment on above: Order Comment: Speci men Type: BLOOD SPECIMEN Performed By: #### 2 4321-2 ####[facility] LABORATORYCLIA [id number] [place] [address] Sodium [Moles/Vol] 139 mmol/L Normal 136-144 [facility] Comment on above: Order Comment: Speci men Type: BLOOD SPECIMEN Performed By: #### 2 4321-2 ####[facility] LABORATORYCLIA [id number] [place] [address] Urea nitrogen [Mass/Vol] 10 mg/dL Normal 7-21 [facility] Comment on above: Order Comment: Speci men Type: BLOOD SPECIMEN Performed By: #### 2 4321-2 ####[facility] LABORATORYCLIA [id number] [place] [address] CBC panel Auto (Bld)on 01-18 Erythrocyte distribution width (RBC) [Ratio] 16.6 % High 11.5-15.0 [facility] Comment on above: Order Comment: Speci men Type: BLOOD SPECIMEN Performed By: #### 5 8410-2 ####[facility] LABORATORYCLIA [id number] [place] [address] Hematocrit (Bld) [Volume fraction] 27.1 % Low 36.0-46.0 [facility] Comment on above: Order Comment: Speci men Type: BLOOD SPECIMEN Performed By: #### 5 8410-2 ####[facility] LABORATORYCLIA [id number] [place] [address] Hemoglobin (Bld) [Mass/Vol] 8.4 g/dL Low 11.5-15.5 [facility] Comment on above: Order Comment: Speci men Type: BLOOD SPECIMEN Performed By: #### 5 8410-2 ####[facility] LABORATORYCLIA [id number] [place] [address] MCH (RBC) [Entitic mass] 29.3 pg Normal 26.0-34.0 [facility] Comment on above: Order Comment: Speci men Type: BLOOD SPECIMEN Performed By: #### 5 8410-2 ####[facility] LABORATORYCLIA [id number] [place] [address] MCHC (RBC) [Mass/Vol] 31.0 g/dL Normal 30.5-36.0 [facility] Comment on above: Order Comment: Speci men Type: BLOOD SPECIMEN Performed By: #### 5 8410-2 ####[facility] LABORATORYCLIA [id number] [place] [address] MCV (RBC) [Entitic vol] 94.4 fL Normal 80.0-100.0 [facility] Comment on above: Order Comment: Speci men Type: BLOOD SPECIMEN Performed By: #### 5 8410-2 ####[facility] LABORATORYCLIA [id number] [place] [address] Nucleated RBC (Bld) [#/Vol] 10*3/uL Normal <0.01 [facility] Comment on above: Order Comment: Speci men Type: BLOOD SPECIMEN Performed By: #### 5 8410-2 ####[facility] LABORATORYCLIA [id number] [place] [address] Platelet mean volume (Bld) [Entitic vol] 10.9 fL Normal 9.0-12.7 [facility] Comment on above: Order Comment: Speci men Type: BLOOD SPECIMEN Performed By: #### 5 8410-2 ####[facility] LABORATORYCLIA [id number] [place] [address] Platelets (Bld) [#/Vol] 368 10*3/uL Normal 150-400 [facility] Comment on above: Order Comment: Speci men Type: BLOOD SPECIMEN Performed By: #### 5 8410-2 ####[facility] LABORATORYCLIA [id number] [place] [address] RBC (Bld) [#/Vol] 2.87 10*6/uL Low 3.90-5.20 [facility] Comment on above: Order Comment: Speci men Type: BLOOD SPECIMEN Performed By: #### 5 8410-2 ####[facility] LABORATORYCLIA [id number] [place] [address] WBC (Bld) [#/Vol] 16.81 10*3/uL High 3.70-11.00 [facility] Comment on above: Order Comment: Speci men Type: BLOOD SPECIMEN Performed By: #### 5 8410-2 ####[facility] LABORATORYCLIA [id number] [place] [address] THERAPY NTon 01-18-2021 THERAPY NT Normal [facility] THERAPY NT Normal [facility] ALLIED HEALTHon 2021 ALLIED HEALTH Normal [facility] ANES POSTPROC EVALon 021 ANES POSTPROC EVAL Normal [facility] ANES PRE-OPon 2021 ANES PRE-OP Normal [facility] ANTIBODY ID PATIENTon 2020 ANTIBODY IDENTIFIED Non-specific Verónica Normal [facility] Comment on above: Order Comment: Speci men Type: BLOOD SPECIMEN Performed By: #### T SCR, %MADI ####[facility] BLOOD BANKCLIA [id number] [place] [address] BRIEF OP NOTon 2021 BRIEF OP NOT Normal [facility] Basic metabolic 2000 panelon 2021 Anion gap [Moles/Vol] 9 mmol/L Normal 9-18 [facility] Comment on above: Order Comment: Speci men Type: BLOOD SPECIMEN Performed By: #### 2 4321-2 ####[facility] LABORATORYCLIA [id number] [place] [address] Calcium [Mass/Vol] 9.2 mg/dL Normal 8.5-10.2 [facility] Comment on above: Order Comment: Speci men Type: BLOOD SPECIMEN Performed By: #### 2 4321-2 ####[facility] LABORATORYCLIA [id number] [place] [address] Chloride [Moles/Vol] 99 mmol/L Normal 97-105 [facility] Comment on above: Order Comment: Speci men Type: BLOOD SPECIMEN Performed By: #### 2 4321-2 ####[facility] LABORATORYCLIA [id number] [place] [address] CO2 [Moles/Vol] 30 mmol/L Normal 22-30 [facility] Comment on above: Order Comment: Speci men Type: BLOOD SPECIMEN Performed By: #### 2 4321-2 ####[facility] LABORATORYCLIA [id number] [place] [address] Creatinine [Mass/Vol] 0.72 mg/dL Normal 0.58-0.96 [facility] Comment on above: Order Comment: Speci men Type: BLOOD SPECIMEN Performed By: #### 2 4321-2 ####[facility] LABORATORYCLIA [id number] [place] [address] GFR/1.73 sq M.predicted MDRD (S/P/Bld) [Vol rate/Area] mL/min/{1.73_m2} Normal [facility] Comment on above: Order Comment: Speci [...] actual GFR. Performed By: #### 2 4321-2 ####[facility] LABORATORYCLIA [id number] [place] [address] Glucose [Mass/Vol] 163 mg/dL High 74-99 [facility] Comment on above: Order Comment: Speci men Type: BLOOD SPECIMEN Result Comment: The [place] Diabetes Association (ADA) provides guidance for cutoff [...] Standards of Medical Care in Diabetes 2016, [place] [employer]. Diabetes Care. 2016.39(Suppl 1). Performed By: #### 2 4321-2 ####[facility] LABORATORYCLIA [id number] [place] [address] Potassium [Moles/Vol] 4.1 mmol/L Normal 3.7-5.1 [facility] Comment on above: Order Comment: Speci men Type: BLOOD SPECIMEN Performed By: #### 2 4321-2 ####[facility] LABORATORYCLIA [id number] [place] [address] Sodium [Moles/Vol] 138 mmol/L Normal 136-144 [facility] Comment on above: Order Comment: Speci men Type: BLOOD SPECIMEN Performed By: #### 2 4321-2 ####[facility] LABORATORYCLIA [id number] [place] [address] Urea nitrogen [Mass/Vol] 18 mg/dL Normal 7-21 [facility] Comment on above: Order Comment: Speci men Type: BLOOD SPECIMEN Performed By: #### 2 4321-2 ####[facility] LABORATORYCLIA [id number] [place] [address] CASE MANAGEMon 2021 CASE MANAGEM Normal [facility] CBC panel Auto (Bld)on 01-17 Erythrocyte distribution width (RBC) [Ratio] 16.3 % High 11.5-15.0 [facility] Comment on above: Order Comment: Speci men Type: BLOOD SPECIMEN Performed By: #### 5 8410-2 ####[facility] LABORATORYCLIA [id number] [place] [address] Hematocrit (Bld) [Volume fraction] 40.2 % Normal 36.0-46.0 [facility] Comment on above: Order Comment: Speci men Type: BLOOD SPECIMEN Performed By: #### 5 8410-2 ####[facility] LABORATORYCLIA [id number] [place] [address] Hemoglobin (Bld) [Mass/Vol] 12.5 g/dL Normal 11.5-15.5 [facility] Comment on above: Order Comment: Speci men Type: BLOOD SPECIMEN Performed By: #### 5 8410-2 ####[facility] LABORATORYCLIA [id number] [place] [address] MCH (RBC) [Entitic mass] 28.7 pg Normal 26.0-34.0 [facility] Comment on above: Order Comment: Speci men Type: BLOOD SPECIMEN Performed By: #### 5 8410-2 ####[facility] LABORATORYCLIA [id number] [place] [address] MCHC (RBC) [Mass/Vol] 31.1 g/dL Normal 30.5-36.0 [facility] Comment on above: Order Comment: Speci men Type: BLOOD SPECIMEN Performed By: #### 5 8410-2 ####[facility] LABORATORYCLIA [id number] [place] [address] MCV (RBC) [Entitic vol] 92.4 fL Normal 80.0-100.0 [facility] Comment on above: Order Comment: Speci men Type: BLOOD SPECIMEN Performed By: #### 5 8410-2 ####[facility] LABORATORYCLIA [id number] [place] [address] Nucleated RBC (Bld) [#/Vol] 10*3/uL Normal <0.01 [facility] Comment on above: Order Comment: Speci men Type: BLOOD SPECIMEN Performed By: #### 5 8410-2 ####[facility] LABORATORYCLIA [id number] [place] [address] Platelet mean volume (Bld) [Entitic vol] 10.4 fL Normal 9.0-12.7 [facility] Comment on above: Order Comment: Speci men Type: BLOOD SPECIMEN Performed By: #### 5 8410-2 ####[facility] LABORATORYCLIA [id number] [place] [address] Platelets (Bld) [#/Vol] 534 10*3/uL High 150-400 [facility] Comment on above: Order Comment: Speci men Type: BLOOD SPECIMEN Performed By: #### 5 8410-2 ####[facility] LABORATORYCLIA [id number] [place] [address] RBC (Bld) [#/Vol] 4.35 10*6/uL Normal 3.90-5.20 [facility] Comment on above: Order Comment: Speci men Type: BLOOD SPECIMEN Performed By: #### 5 8410-2 ####[facility] LABORATORYCLIA [id number] [place] [address] WBC (Bld) [#/Vol] 15.41 10*3/uL High 3.70-11.00 [facility] Comment on above: Order Comment: Speci men Type: BLOOD SPECIMEN Performed By: #### 5 8410-2 ####[facility] LABORATORYCLIA [id number] [place] [address] NURSING PROGon 2021 NURSING PROG [facility] NUTRITIONon 2021 NUTRITION Normal [facility] OPERATIVE NOon 2021 OPERATIVE NO [facility] SARS-CoV-2 RNA Resp Ql LAVELL+p robeon 2021 SARS-CoV-2 (COVID-19) RNA LAVELL+probe Ql (Resp) COVID 19 RESULT: SARS-CoV-2 (Agent of COVID-19) Not Detected by PCR. This test has been authorized by FDA under an Emergency Use Authorization (EUA) [facility] Comment on above: Performed By: #### 9 4500-6 ####[facility] LABORATORYCLIA [id number] [place] [address] SURGICAL PATHOLOGYon 021 CASE REPORT [facility] Comment on above: Order Comment: Speci men Type: SPECIMEN FROM BONE Result Comment: Surg ical Pathology Report Case: [id number] Provider: Ranjan Herrera MD Collected: 2021 02:53 PMOrdering Location: [place] [facility] [place] Received: 01/18/2021 07:00 AMPathologist: NURA Bobbypecimen: FEMORAL HEAD LEFT Performed By: #### S ####[facility] LABORATORYCLIA [id number] [place] [address] FINAL DIAGNOSIS Normal [facility] Comment on above: Order Comment: Speci men Type: SPECIMEN FROM BONE Result Comment: Femo ral head, left hip, hip arthroplasty - Fragmentation of the bony trabeculae with hemorrhage into the medullary cavity and soft tissue, consistent with recent fracture.- No malignancy is seen. Performed By: #### S ####[facility] LABORATORYCLIA [id number] [place] [address] FINAL PERFORMING LAB Normal [facility] Comment on above: Order Comment: Speci men Type: SPECIMEN FROM BONE Result Comment: Diag nostic interpretation performed at [facility], [address] [place] [address] CLIA# [id number] Director: Ozzy Grant M.D. Performed By: #### S ####[facility] LABORATORYCLIA [id number] [place] [id number] GROSS DESCRIPTION Normal [facility] Comment on above: Order Comment: Speci men Type: SPECIMEN FROM BONE Result Comment: A. F EMORAL HEAD LEFT.Received in formalin labeled "left femoral head" is a fragmented femoral head and neck aggregating to 8.0 x 4.0 x 3.0 cm. The articular surface appears slightly granular with no definitive eburnation or osteophyte formation. Sectioning does reveal a zone of dark red hemorrhage representing a probable fracture site. A previous biopsy site is not identified. Necrotic bone is not seen. [employer] sections are submitted in formalin as follows: A1 soft tissue, A2 bone after a period of decalcification.Gross examination performed at [facility], [address] [place] [address] CLIA# [id number] January 18, 2021 10:29 AM Performed By: #### S ####[facility] LABORATORYCLIA [id number] [place] [address] THERAPY NTon 2021 THERAPY NT Normal [facility] TYPE AND SCREENon 2021 ABO A Normal [facility] Comment on above: Order Comment: Speci men Type: BLOOD SPECIMEN Performed By: #### T SCR, %MADI ####[facility] BLOOD BANKCLIA [id number] [place] [address] HISTORICAL AB SCR STATUS Negative Normal [facility] Comment on above: Order Comment: Speci men Type: BLOOD SPECIMEN Performed By: #### T SCR, %MADI ####[facility] BLOOD BANKCLIA [id number] [place] [address] Rh Nom (Bld) Positive [facility] Comment on above: Order Comment: Speci men Type: BLOOD SPECIMEN Performed By: #### T SCR, %MADI ####[facility] BLOOD BANKCLIA [id number] [place] [address] TYPE AND SCREEN EXPIRATION 01/20/2021 23:59 Normal [facility] Comment on above: Order Comment: Speci men Type: BLOOD SPECIMEN Performed By: #### T SCR, %MADI ####[facility] BLOOD BANKCLIA [id number] [place] [address] XR HIP 1V LTon 2021 XR HIP 1V LT Normal [facility] XR PELVIS 1V APon 2021 XR PELVIS 1V AP Normal [facility] Basic metabolic 2000 panelon 01-16-2021 Anion gap [Moles/Vol] 11 mmol/L Normal 9-18 [facility] Comment on above: Order Comment: Speci men Type: BLOOD SPECIMEN Performed By: #### 2 4321-2 ####[facility] LABORATORYCLIA [id number] [place] [address] Calcium [Mass/Vol] 9.5 mg/dL Normal 8.5-10.2 [facility] Comment on above: Order Comment: Speci men Type: BLOOD SPECIMEN Performed By: #### 2 4321-2 ####[facility] LABORATORYCLIA [id number] [place] [address] Chloride [Moles/Vol] 98 mmol/L Normal 97-105 [facility] Comment on above: Order Comment: Speci men Type: BLOOD SPECIMEN Performed By: #### 2 4321-2 ####[facility] LABORATORYCLIA [id number] [place] [address] CO2 [Moles/Vol] 26 mmol/L Normal 22-30 [facility] Comment on above: Order Comment: Speci men Type: BLOOD SPECIMEN Performed By: #### 2 4321-2 ####[facility] LABORATORYCLIA [id number] [place] [address] Creatinine [Mass/Vol] 0.76 mg/dL Normal 0.58-0.96 [facility] Comment on above: Order Comment: Speci men Type: BLOOD SPECIMEN Performed By: #### 2 4321-2 ####[facility] LABORATORYCLIA [id number] [place] [address] GFR/1.73 sq M.predicted MDRD (S/P/Bld) [Vol rate/Area] mL/min/{1.73_m2} Normal [facility] Comment on above: Order Comment: Speci men Type: BLOOD SPECIMEN Result Comment: >60e GFR (Estimated GFR) Units of measure: mL/min/1.73 meters squaredeGFR is derived from the reexpressed MDRD Study equation using the following parameters: serum creatinine, age, gender and race. The creatinine assay has been calibrated to be traceable to [email or web address]. An eGFR <60 mL/min/1.73m2 for >3 months is consistent with chronic kidney disease. Refer to KDOQI guidelines for clinical interpretation. In patients with unstable renal function, e.g. those with acute kidney injury, the eGFR may not accurately reflect actual GFR. Performed By: #### 2 4321-2 ####[facility] LABORATORYCLIA [id number] [place] [address] Glucose [Mass/Vol] 124 mg/dL High 74-99 [facility] Comment on above: Order Comment: Speci men Type: BLOOD SPECIMEN Result Comment: The [place] Diabetes Association (ADA) provides guidance for cutoff [...] Standards of Medical Care in Diabetes 2016, [place] [employer]. Diabetes Care. 2016.39(Suppl 1). Performed By: #### 2 4321-2 ####[facility] LABORATORYCLIA [id number] [place] [address] Potassium [Moles/Vol] 4.2 mmol/L Normal 3.7-5.1 [facility] Comment on above: Order Comment: Speci men Type: BLOOD SPECIMEN Performed By: #### 2 4321-2 ####[facility] LABORATORYCLIA [id number] [place] [address] Sodium [Moles/Vol] 135 mmol/L Low 136-144 [facility] Comment on above: Order Comment: Speci men Type: BLOOD SPECIMEN Performed By: #### 2 4321-2 ####[facility] LABORATORYCLIA [id number] [place] [address] Urea nitrogen [Mass/Vol] 17 mg/dL Normal 7-21 [facility] Comment on above: Order Comment: Speci men Type: BLOOD SPECIMEN Performed By: #### 2 4321-2 ####[facility] LABORATORYCLIA [id number] [place] [address] CASE MANAGEMon 01-16-2021 CASE MANAGEM Normal [facility] CBC panel Auto (Bld)on 01-16 Erythrocyte distribution width (RBC) [Ratio] 16.4 % High 11.5-15.0 [facility] Comment on above: Order Comment: Speci men Type: BLOOD SPECIMEN Performed By: #### 5 8410-2 ####[facility] LABORATORYCLIA [id number] [place] [address] Hematocrit (Bld) [Volume fraction] 40.9 % Normal 36.0-46.0 [facility] Comment on above: Order Comment: Speci men Type: BLOOD SPECIMEN Performed By: #### 5 8410-2 ####[facility] LABORATORYCLIA [id number] [place] [address] Hemoglobin (Bld) [Mass/Vol] 12.9 g/dL Normal 11.5-15.5 [facility] Comment on above: Order Comment: Speci men Type: BLOOD SPECIMEN Performed By: #### 5 8410-2 ####[facility] LABORATORYCLIA [id number] [place] [address] MCH (RBC) [Entitic mass] 28.5 pg Normal 26.0-34.0 [facility] Comment on above: Order Comment: Speci men Type: BLOOD SPECIMEN Performed By: #### 5 8410-2 ####[facility] LABORATORYCLIA [id number] [place] [address] MCHC (RBC) [Mass/Vol] 31.5 g/dL Normal 30.5-36.0 [facility] Comment on above: Order Comment: Speci men Type: BLOOD SPECIMEN Performed By: #### 5 8410-2 ####[facility] LABORATORYCLIA [id number] [place] [address] MCV (RBC) [Entitic vol] 90.3 fL Normal 80.0-100.0 [facility] Comment on above: Order Comment: Speci men Type: BLOOD SPECIMEN Performed By: #### 5 8410-2 ####[facility] LABORATORYCLIA [id number] [place] [address] Nucleated RBC (Bld) [#/Vol] 10*3/uL Normal <0.01 [facility] Comment on above: Order Comment: Speci men Type: BLOOD SPECIMEN Performed By: #### 5 8410-2 ####[facility] LABORATORYCLIA [id number] [place] [address] Platelet mean volume (Bld) [Entitic vol] 10.7 fL Normal 9.0-12.7 [facility] Comment on above: Order Comment: Speci men Type: BLOOD SPECIMEN Performed By: #### 5 8410-2 ####[facility] LABORATORYCLIA [id number] [place] [address] Platelets (Bld) [#/Vol] 651 10*3/uL High 150-400 [facility] Comment on above: Order Comment: Speci men Type: BLOOD SPECIMEN Performed By: #### 5 8410-2 ####[facility] LABORATORYCLIA [id number] [place] [address] RBC (Bld) [#/Vol] 4.53 10*6/uL Normal 3.90-5.20 [facility] Comment on above: Order Comment: Speci men Type: BLOOD SPECIMEN Performed By: #### 5 8410-2 ####[facility] LABORATORYCLIA [id number] [place] [address] WBC (Bld) [#/Vol] 16.49 10*3/uL High 3.70-11.00 [facility] Comment on above: Order Comment: Speci men Type: BLOOD SPECIMEN Performed By: #### 5 8410-2 ####[facility] LABORATORYCLIA [id number] [place] [address] Basic metabolic 2000 panelon 01-15-2021 Anion gap [Moles/Vol] 8 mmol/L Low 9-18 [facility] Comment on above: Order Comment: Speci men Type: BLOOD SPECIMEN Performed By: #### 2 4321-2 ####[facility]ORATORYCLIA [id number] [place] [address] Calcium [Mass/Vol] 9.3 mg/dL Normal 8.5-10.2 [facility] Comment on above: Order Comment: Speci men Type: BLOOD SPECIMEN Performed By: #### 2 4321-2 ####[facility] LABORATORYCLIA [id number] [place] [address] Chloride [Moles/Vol] 99 mmol/L Normal 97-105 [facility] Comment on above: Order Comment: Speci men Type: BLOOD SPECIMEN Performed By: #### 2 4321-2 ####[facility] LABORATORYCLIA [id number] [place] [address] CO2 [Moles/Vol] 27 mmol/L Normal 22-30 [facility] Comment on above: Order Comment: Speci men Type: BLOOD SPECIMEN Performed By: #### 2 4321-2 ####[facility] LABORATORYCLIA [id number] [place] [address] Creatinine [Mass/Vol] 0.78 mg/dL Normal 0.58-0.96 [facility] Comment on above: Order Comment: Speci men Type: BLOOD SPECIMEN Performed By: #### 2 4321-2 ####[facility] LABORATORYCLIA [id number] [place] [address] GFR/1.73 sq M.predicted MDRD (S/P/Bld) [Vol rate/Area] mL/min/{1.73_m2} Normal [facility] Comment on above: Order Comment: Speci [...] actual GFR. Performed By: #### 2 4321-2 ####[facility] LABORATORYCLIA [id number] [place] [address] Glucose [Mass/Vol] 148 mg/dL High 74-99 [facility] Comment on above: Order Comment: Speci men Type: BLOOD SPECIMEN Result Comment: The [place] Diabetes Association (ADA) provides guidance for cutoff [...] Standards of Medical Care in Diabetes 2016, [place] [employer]. Diabetes Care. 2016.39(Suppl 1). Performed By: #### 2 4321-2 ####[facility] LABORATORYCLIA [id number] [place] [address] Potassium [Moles/Vol] 4.0 mmol/L Normal 3.7-5.1 [facility] Comment on above: Order Comment: Speci men Type: BLOOD SPECIMEN Performed By: #### 2 4321-2 ####[facility] LABORATORYCLIA [id number] [place] [address] Sodium [Moles/Vol] 134 mmol/L Low 136-144 [facility] Comment on above: Order Comment: Speci men Type: BLOOD SPECIMEN Performed By: #### 2 4321-2 ####[facility] LABORATORYCLIA [id number] [place] [address] Urea nitrogen [Mass/Vol] 20 mg/dL Normal 7-21 [facility] Comment on above: Order Comment: Speci men Type: BLOOD SPECIMEN Performed By: #### 2 4321-2 ####[facility] LABORATORYCLIA [id number] [place] [address] CBC panel Auto (Bld)on 01-15 Erythrocyte distribution width (RBC) [Ratio] 16.4 % High 11.5-15.0 [facility] Comment on above: Order Comment: Speci men Type: BLOOD SPECIMEN Performed By: #### 5 8410-2 ####[facility] LABORATORYCLIA [id number] [place] [address] Hematocrit (Bld) [Volume fraction] 40.7 % Normal 36.0-46.0 [facility] Comment on above: Order Comment: Speci men Type: BLOOD SPECIMEN Performed By: #### 5 8410-2 ####[facility] LABORATORYCLIA [id number] [place] [address] Hemoglobin (Bld) [Mass/Vol] 12.9 g/dL Normal 11.5-15.5 [facility] Comment on above: Order Comment: Speci men Type: BLOOD SPECIMEN Performed By: #### 5 8410-2 ####[facility] LABORATORYCLIA [id number] [place] [address] MCH (RBC) [Entitic mass] 28.6 pg Normal 26.0-34.0 [facility] Comment on above: Order Comment: Speci men Type: BLOOD SPECIMEN Performed By: #### 5 8410-2 ####[facility] LABORATORYCLIA [id number] [place] [address] MCHC (RBC) [Mass/Vol] 31.7 g/dL Normal 30.5-36.0 [facility] Comment on above: Order Comment: Speci men Type: BLOOD SPECIMEN Performed By: #### 5 8410-2 ####[facility] LABORATORYCLIA [id number] [place] [address] MCV (RBC) [Entitic vol] 90.2 fL Normal 80.0-100.0 [facility] Comment on above: Order Comment: Speci men Type: BLOOD SPECIMEN Performed By: #### 5 8410-2 ####[facility] LABORATORYCLIA [id number] [place] [address] Nucleated RBC (Bld) [#/Vol] 10*3/uL Normal <0.01 [facility] Comment on above: Order Comment: Speci men Type: BLOOD SPECIMEN Performed By: #### 5 8410-2 ####[facility] LABORATORYCLIA [id number] [place] [address] Platelet mean volume (Bld) [Entitic vol] 10.4 fL Normal 9.0-12.7 [facility] Comment on above: Order Comment: Speci men Type: BLOOD SPECIMEN Performed By: #### 5 8410-2 ####[facility] LABORATORYCLIA [id number] [place] [address] Platelets (Bld) [#/Vol] 810 10*3/uL High 150-400 [facility] Comment on above: Order Comment: Speci men Type: BLOOD SPECIMEN Performed By: #### 5 8410-2 ####[facility] LABORATORYCLIA [id number] [place] [address] RBC (Bld) [#/Vol] 4.51 10*6/uL Normal 3.90-5.20 [facility] Comment on above: Order Comment: Speci men Type: BLOOD SPECIMEN Performed By: #### 5 8410-2 ####[facility] LABORATORYCLIA [id number] [place] [address] WBC (Bld) [#/Vol] 15.54 10*3/uL High 3.70-11.00 [facility] Comment on above: Order Comment: Speci men Type: BLOOD SPECIMEN Performed By: #### 5 8410-2 ####[facility] LABORATORYCLIA [id number] [place] [address] CT LUMBAR SPINE W RECON DATA -NBon 01-15-2021 CT LUMBAR SPINE W RECON DATA -NB Normal [facility] THERAPY NTon 01-15-2021 THERAPY NT Normal [facility] ALLIED HEALTHon 01-14-2021 ALLIED HEALTH Normal [facility] ALLIED HEALTH Normal [facility] ANES POSTPROC EVALon 01-14- 021 ANES POSTPROC EVAL Normal [facility] ANES PRE-OPon 01-14-2021 ANES PRE-OP Normal [facility] BRIEF OP NOTon 01-14-2021 BRIEF OP NOT Normal [facility] Basic metabolic 2000 panelon 01-14-2021 Anion gap [Moles/Vol] 9 mmol/L Normal 9-18 [facility] Comment on above: Order Comment: Speci men Type: BLOOD SPECIMEN Performed By: #### 2 4321-2 ####[facility] LABORATORYCLIA [id number] [place] [address] Calcium [Mass/Vol] 9.5 mg/dL Normal 8.5-10.2 [facility] Comment on above: Order Comment: Speci men Type: BLOOD SPECIMEN Performed By: #### 2 4321-2 ####[facility] LABORATORYCLIA [id number] [place] [address] Chloride [Moles/Vol] 99 mmol/L Normal 97-105 [facility] Comment on above: Order Comment: Speci men Type: BLOOD SPECIMEN Performed By: #### 2 4321-2 ####[facility] LABORATORYCLIA [id number] [place] [address] CO2 [Moles/Vol] 26 mmol/L Normal 22-30 [facility] Comment on above: Order Comment: Speci men Type: BLOOD SPECIMEN Performed By: #### 2 4321-2 ####[facility] LABORATORYCLIA [id number] [place] [address] Creatinine [Mass/Vol] 0.77 mg/dL Normal 0.58-0.96 [facility] Comment on above: Order Comment: Speci men Type: BLOOD SPECIMEN Performed By: #### 2 4321-2 ####[facility] LABORATORYCLIA [id number] [place] [address] GFR/1.73 sq M.predicted MDRD (S/P/Bld) [Vol rate/Area] mL/min/{1.73_m2} Normal [facility] Comment on above: Order Comment: Speci [...] actual GFR. Performed By: #### 2 4321-2 ####[facility] LABORATORYCLIA [id number] [place] [address] Glucose [Mass/Vol] 170 mg/dL High 74-99 [facility] Comment on above: Order Comment: Speci men Type: BLOOD SPECIMEN Result Comment: The [place] Diabetes Association (ADA) provides guidance for cutoff [...] Standards of Medical Care in Diabetes 2016, [place] [employer]. Diabetes Care. 2016.39(Suppl 1). Performed By: #### 2 4321-2 ####[facility] LABORATORYCLIA [id number] [place] [address] Potassium [Moles/Vol] 4.4 mmol/L Normal 3.7-5.1 [facility] Comment on above: Order Comment: Speci men Type: BLOOD SPECIMEN Performed By: #### 2 4321-2 ####[facility] LABORATORYCLIA [id number] [place] [address] Sodium [Moles/Vol] 134 mmol/L Low 136-144 [facility] Comment on above: Order Comment: Speci men Type: BLOOD SPECIMEN Performed By: #### 2 4321-2 ####[facility] LABORATORYCLIA [id number] [place] [address] Urea nitrogen [Mass/Vol] 21 mg/dL Normal 7-21 [facility] Comment on above: Order Comment: Speci men Type: BLOOD SPECIMEN Performed By: #### 2 4321-2 ####[facility] LABORATORYCLIA [id number] [place] [address] CBC W Auto Differential pane l (Bld)on 01-14-2021 Basophils (Bld) [#/Vol] 0.13 10*3/uL High <0.11 [facility] Comment on above: Order Comment: Speci men Type: BLOOD SPECIMEN Result Comment: Diff erential confirmed by visual scan of peripheral blood smear slide Performed By: #### 5 7021-8 ####[facility] LABORATORYCLIA [id number] [place] [address] Basophils/100 WBC (Bld) 0.8 % Normal [facility] Comment on above: Order Comment: Speci men Type: BLOOD SPECIMEN Performed By: #### 5 7021-8 ####[facility]ORATORYCLIA [id number] [place] [address] Differential cell count method Nom (Bld) Auto Normal [facility] Comment on above: Order Comment: Speci men Type: BLOOD SPECIMEN Performed By: #### 5 7021-8 ####[facility]ORATORYCLIA [id number] [place] [address] Eosinophils (Bld) [#/Vol] 0.22 10*3/uL Normal <0.46 [facility] Comment on above: Order Comment: Speci men Type: BLOOD SPECIMEN Performed By: #### 5 7021-8 ####[facility]ORATORYCLIA [id number] [place] [address] Eosinophils/100 WBC (Bld) 1.4 % Normal [facility] Comment on above: Order Comment: Speci men Type: BLOOD SPECIMEN Performed By: #### 5 7021-8 ####[facility]ORATORYCLIA [id number] [place] [address] Erythrocyte distribution width (RBC) [Ratio] 16.3 % High 11.5-15.0 [facility] Comment on above: Order Comment: Speci men Type: BLOOD SPECIMEN Performed By: #### 5 7021-8 ####[facility]ORATORYCLIA [id number] [place] [address] Hematocrit (Bld) [Volume fraction] 40.4 % Normal 36.0-46.0 [facility] Comment on above: Order Comment: Speci men Type: BLOOD SPECIMEN Performed By: #### 5 7021-8 ####[facility]ORATORYCLIA [id number] [place] [address] Hemoglobin (Bld) [Mass/Vol] 13.0 g/dL Normal 11.5-15.5 [facility] Comment on above: Order Comment: Speci men Type: BLOOD SPECIMEN Performed By: #### 5 7021-8 ####[facility]ORATORYCLIA [id number] [place] [address] IMMATURE GRAN % 0.9 % Normal [facility] Comment on above: Order Comment: Speci men Type: BLOOD SPECIMEN Performed By: #### 5 7021-8 ####[facility]ORATORYCLIA [id number] [place] [address] IMMATURE GRAN ABS 0.14 k/uL High <0.10 [facility] Comment on above: Order Comment: Speci men Type: BLOOD SPECIMEN Performed By: #### 5 7021-8 ####[facility] LABORATORYCLIA [id number] [place] [address] Lymphocytes (Bld) [#/Vol] 2.59 10*3/uL Normal 1.00-4.00 [facility] Comment on above: Order Comment: Speci men Type: BLOOD SPECIMEN Performed By: #### 5 7021-8 ####[facility]ORATORYCLIA [id number] [place] [address] Lymphocytes/100 WBC (Bld) 16.4 % Normal [facility] Comment on above: Order Comment: Speci men Type: BLOOD SPECIMEN Performed By: #### 5 7021-8 ####[facility]ORATORYCLIA [id number] [place] [address] MCH (RBC) [Entitic mass] 28.8 pg Normal 26.0-34.0 [facility] Comment on above: Order Comment: Speci men Type: BLOOD SPECIMEN Performed By: #### 5 7021-8 ####[facility]ATORYCLIA [id number] [place] [address] MCHC (RBC) [Mass/Vol] 32.2 g/dL Normal 30.5-36.0 [facility] Comment on above: Order Comment: Speci men Type: BLOOD SPECIMEN Performed By: #### 5 7021-8 ####[facility]ORATORYCLIA [id number] [place] [address] MCV (RBC) [Entitic vol] 89.6 fL Normal 80.0-100.0 [facility] Comment on above: Order Comment: Speci men Type: BLOOD SPECIMEN Performed By: #### 5 7021-8 ####[facility]ATORYCLIA [id number] [place] [address] Monocytes (Bld) [#/Vol] 1.98 10*3/uL High <0.87 [facility] Comment on above: Order Comment: Speci men Type: BLOOD SPECIMEN Performed By: #### 5 7021-8 ####[facility]ATORYCLIA [id number] [place] [address] Monocytes/100 WBC (Bld) 12.5 % Normal [facility] Comment on above: Order Comment: Speci men Type: BLOOD SPECIMEN Performed By: #### 5 7021-8 ####[facility]ATORYCLIA [id number] [place] [address] Neutrophils (Bld) [#/Vol] 10.76 10*3/uL High 1.45-7.50 [facility] Comment on above: Order Comment: Speci men Type: BLOOD SPECIMEN Performed By: #### 5 7021-8 ####[facility]ORATORYCLIA [id number] [place] [address] Neutrophils/100 WBC (Bld) 68.0 % Normal [facility] Comment on above: Order Comment: Speci men Type: BLOOD SPECIMEN Performed By: #### 5 7021-8 ####[facility]ORATORYCLIA [id number] [place] [address] Nucleated RBC (Bld) [#/Vol] 10*3/uL Normal <0.01 [facility] Comment on above: Order Comment: Speci men Type: BLOOD SPECIMEN Performed By: #### 5 7021-8 ####[facility]ORYCLIA [id number] [place] [address] Nucleated RBC/100 WBC (Bld) [Ratio] 0.0 /100 WBC Normal 0.0 [facility] Comment on above: Order Comment: Speci men Type: BLOOD SPECIMEN Performed By: #### 5 7021-8 ####[facility] LABORATORYCLIA [id number] [place] [address] Platelet mean volume (Bld) [Entitic vol] 10.1 fL Normal 9.0-12.7 [facility] Comment on above: Order Comment: Speci men Type: BLOOD SPECIMEN Performed By: #### 5 7021-8 ####[facility] LABORATORYCLIA [id number] [place] [address] Platelets (Bld) [#/Vol] 914 10*3/uL High 150-400 [facility] Comment on above: Order Comment: Speci men Type: BLOOD SPECIMEN Performed By: #### 5 7021-8 ####[facility] LABORATORYCLIA [id number] [place] [address] RBC (Bld) [#/Vol] 4.51 10*6/uL Normal 3.90-5.20 [facility] Comment on above: Order Comment: Speci men Type: BLOOD SPECIMEN Performed By: #### 5 7021-8 ####[facility] LABORATORYCLIA [id number] [place] [address] WBC (Bld) [#/Vol] 15.82 10*3/uL High 3.70-11.00 [facility] Comment on above: Order Comment: Speci men Type: BLOOD SPECIMEN Performed By: #### 5 7021-8 ####[facility] LABORATORYCLIA [id number] [place] [address] OPERATIVE NOon 01-14-2021 OPERATIVE NO Normal [facility] PT panel Coag (PPP)on 2020 INR Coag (PPP) [Relative time] 1.0 {INR} Normal 0.9-1.3 [facility] Comment on above: Order Comment: Speci men Type: BLOOD SPECIMEN Result Comment: Elisabeth min K Antagonist (VKA) Therapeutic Range: INR 2 to 3 (Target INR of 2.5)Note: For patients treated with VKA drugs, such as warfarin, the [place] [employer] 2012 Guideline recommends [...] of 3).Adalid GH, et al. Chest 2012, 141:7S-47SRaissa GREER, et al. [facility] 2017, 70: 252-289 Performed By: #### 3 4528-0 ####[facility] LABORATORYCLIA [id number] [place] [address] PT Coag (PPP) [Time] 10.8 s Normal 9.7-13.0 [facility] Comment on above: Order Comment: Speci men Type: BLOOD SPECIMEN Performed By: #### 3 4528-0 ####[facility] LABORATORYCLIA [id number] [place] [address] SARS-CoV-2 RNA Resp Ql LAVELL+p robeon 01-14-2021 SARS-CoV-2 (COVID-19) RNA LAVELL+probe Ql (Resp) COVID 19 RESULT: SARS-CoV-2 (Agent of COVID-19) Not Detected by PCR. This test has been authorized by FDA under an Emergency Use Authorization (EUA) [facility] Comment on above: Performed By: #### 9 4500-6 ####[facility] LABORATORYCLIA [id number] [place] [address] THERAPY NTon 01-14-2021 THERAPY NT [facility] TYPE AND SCREENon 01-14-2021 ABO A [facility] Comment on above: Order Comment: Speci men Type: BLOOD SPECIMEN Performed By: #### T SCR ####[facility] BLOOD BANKCLIA [id number] [place] [address] HISTORICAL AB SCR STATUS Negative Normal [facility] Comment on above: Order Comment: Speci men Type: BLOOD SPECIMEN Performed By: #### T SCR ####[facility] BLOOD BANKCLIA [id number] [place] [address] Rh Nom (Bld) Positive Normal [facility] Comment on above: Order Comment: Speci men Type: BLOOD SPECIMEN Performed By: #### T SCR ####[facility] BLOOD BANKCLIA [id number] [place] [address] TYPE AND SCREEN EXPIRATION 2021 23:59 Normal [facility] Comment on above: Order Comment: Speci men Type: BLOOD SPECIMEN Performed By: #### T SCR ####[facility] BLOOD BANKCLIA [id number] [place] [address] XR HIP 3V PELV+ AP/LAT LTon 01-14-2021 XR HIP 3V PELV+ AP/LAT LT Normal [facility] XR PELVIS 1V APon 01-14-2021 XR PELVIS 1V AP Normal [facility] CBC panel Auto (Bld)on 01-13 Erythrocyte distribution width (RBC) [Ratio] 16.3 % High 11.5-15.0 [facility] Comment on above: Order Comment: Speci men Type: BLOOD SPECIMEN Performed By: #### 5 8410-2 ####[facility] LABORATORYCLIA [id number] [place] [address] Hematocrit (Bld) [Volume fraction] 42.0 % Normal 36.0-46.0 [facility] Comment on above: Order Comment: Speci men Type: BLOOD SPECIMEN Performed By: #### 5 8410-2 ####[facility] LABORATORYCLIA [id number] [place] [address] Hemoglobin (Bld) [Mass/Vol] 12.9 g/dL Normal 11.5-15.5 [facility] Comment on above: Order Comment: Speci men Type: BLOOD SPECIMEN Performed By: #### 5 8410-2 ####[facility] LABORATORYCLIA [id number] [place] [address] MCH (RBC) [Entitic mass] 28.0 pg Normal 26.0-34.0 [facility] Comment on above: Order Comment: Speci men Type: BLOOD SPECIMEN Performed By: #### 5 8410-2 ####[facility] LABORATORYCLIA [id number] [place] [address] MCHC (RBC) [Mass/Vol] 30.7 g/dL Normal 30.5-36.0 [facility] Comment on above: Order Comment: Speci men Type: BLOOD SPECIMEN Performed By: #### 5 8410-2 ####[facility] LABORATORYCLIA [id number] [place] [address] MCV (RBC) [Entitic vol] 91.3 fL Normal 80.0-100.0 [facility] Comment on above: Order Comment: Speci men Type: BLOOD SPECIMEN Performed By: #### 5 8410-2 ####[facility] LABORATORYCLIA [id number] [place] [address] Nucleated RBC (Bld) [#/Vol] 10*3/uL Normal <0.01 [facility] Comment on above: Order Comment: Speci men Type: BLOOD SPECIMEN Performed By: #### 5 8410-2 ####[facility] LABORATORYCLIA [id number] [place] [address] Platelet mean volume (Bld) [Entitic vol] 10.8 fL Normal 9.0-12.7 [facility] Comment on above: Order Comment: Speci men Type: BLOOD SPECIMEN Performed By: #### 5 8410-2 ####[facility] LABORATORYCLIA [id number] [place] [address] Platelets (Bld) [#/Vol] 1048 10*3/uL High 150-400 [facility] Comment on above: Order Comment: Speci men Type: BLOOD SPECIMEN Result Comment: Plat elet count confirmed by manual review of peripheral blood smear Performed By: #### 5 8410-2 ####[facility] LABORATORYCLIA [id number] [place] [address] RBC (Bld) [#/Vol] 4.60 10*6/uL Normal 3.90-5.20 [facility] Comment on above: Order Comment: Speci men Type: BLOOD SPECIMEN Performed By: #### 5 8410-2 ####[facility] LABORATORYCLIA [id number] [place] [address] WBC (Bld) [#/Vol] 11.66 10*3/uL High 3.70-11.00 [facility] Comment on above: Order Comment: Speci men Type: BLOOD SPECIMEN Performed By: #### 5 8410-2 ####[facility] LABORATORYCLIA [id number] [place] [address] CASE MANAGEMon 01-12-2021 CASE MANAGEM Normal [facility] NUTRITIONon 01-12-2021 NUTRITION Normal [facility] THERAPY NTon 01-12-2021 THERAPY NT Normal [facility] THERAPY NT Normal [facility] CASE MANAGEMon 01-11-2021 CASE MANAGEM Normal [facility] CASE MANAGEM Normal [facility] NURSING PROGon 01-11-2021 NURSING PROG Normal [facility] CASE MANAGEMon 01-10-2021 CASE MANAGEM Normal [facility] CBC panel Auto (Bld)on 01-10 Erythrocyte distribution width (RBC) [Ratio] 16.8 % High 11.5-15.0 [facility] Comment on above: Order Comment: Speci men Type: BLOOD SPECIMEN Performed By: #### 5 8410-2 ####[facility] LABORATORYCLIA [id number] [place] [address] Hematocrit (Bld) [Volume fraction] 38.4 % Normal 36.0-46.0 [facility] Comment on above: Order Comment: Speci men Type: BLOOD SPECIMEN Performed By: #### 5 8410-2 ####[facility] LABORATORYCLIA [id number] [place] [address] Hemoglobin (Bld) [Mass/Vol] 12.2 g/dL Normal 11.5-15.5 [facility] Comment on above: Order Comment: Speci men Type: BLOOD SPECIMEN Performed By: #### 5 8410-2 ####[facility] LABORATORYCLIA [id number] [place] [address] MCH (RBC) [Entitic mass] 28.7 pg Normal 26.0-34.0 [facility] Comment on above: Order Comment: Speci men Type: BLOOD SPECIMEN Performed By: #### 5 8410-2 ####[facility] LABORATORYCLIA [id number] [place] [address] MCHC (RBC) [Mass/Vol] 31.8 g/dL Normal 30.5-36.0 [facility] Comment on above: Order Comment: Speci men Type: BLOOD SPECIMEN Performed By: #### 5 8410-2 ####[facility] LABORATORYCLIA [id number] [place] [address] MCV (RBC) [Entitic vol] 90.4 fL Normal 80.0-100.0 [facility] Comment on above: Order Comment: Speci men Type: BLOOD SPECIMEN Performed By: #### 5 8410-2 ####[facility] LABORATORYCLIA [id number] [place] [address] Nucleated RBC (Bld) [#/Vol] 0.02 10*3/uL High <0.01 [facility] Comment on above: Order Comment: Speci men Type: BLOOD SPECIMEN Performed By: #### 5 8410-2 ####[facility] LABORATORYCLIA [id number] [place] [address] Platelet mean volume (Bld) [Entitic vol] 10.9 fL Normal 9.0-12.7 [facility] Comment on above: Order Comment: Speci men Type: BLOOD SPECIMEN Performed By: #### 5 8410-2 ####[facility] LABORATORYCLIA [id number] [place] [address] Platelets (Bld) [#/Vol] 1251 10*3/uL High 150-400 [facility] Comment on above: Order Comment: Speci men Type: BLOOD SPECIMEN Performed By: #### 5 8410-2 ####[facility] LABORATORYCLIA [id number] [place] [address] RBC (Bld) [#/Vol] 4.25 10*6/uL Normal 3.90-5.20 [facility] Comment on above: Order Comment: Speci men Type: BLOOD SPECIMEN Performed By: #### 5 8410-2 ####[facility] LABORATORYCLIA [id number] [place] [address] WBC (Bld) [#/Vol] 16.61 10*3/uL High 3.70-11.00 [facility] Comment on above: Order Comment: Speci men Type: BLOOD SPECIMEN Performed By: #### 5 8410-2 ####[facility] LABORATORYCLIA [id number] [place] [address] NURSING PROGon 01-10-2021 NURSING PROG Normal [facility] THERAPY NTon 01-10-2021 THERAPY NT Normal [facility] Basic metabolic 2000 panelon 01-09-2021 Anion gap [Moles/Vol] 10 mmol/L Normal 9-18 [facility] Comment on above: Order Comment: Speci men Type: BLOOD SPECIMEN Performed By: #### 2 4321-2 ####[facility] LABORATORYCLIA [id number] [place] [address] Calcium [Mass/Vol] 9.4 mg/dL Normal 8.5-10.2 [facility] Comment on above: Order Comment: Speci men Type: BLOOD SPECIMEN Performed By: #### 2 4321-2 ####[facility] LABORATORYCLIA [id number] [place] [address] Chloride [Moles/Vol] 105 mmol/L Normal 97-105 [facility] Comment on above: Order Comment: Speci men Type: BLOOD SPECIMEN Performed By: #### 2 4321-2 ####[facility]ATORYCLIA [id number] [place] [address] CO2 [Moles/Vol] 24 mmol/L Normal 22-30 [facility] Comment on above: Order Comment: Speci men Type: BLOOD SPECIMEN Performed By: #### 2 4321-2 ####[facility] LABORATORYCLIA [id number] [place] [address] Creatinine [Mass/Vol] 0.66 mg/dL Normal 0.58-0.96 [facility] Comment on above: Order Comment: Speci men Type: BLOOD SPECIMEN Performed By: #### 2 4321-2 ####[facility] LABORATORYCLIA [id number] [place] [address] GFR/1.73 sq M.predicted MDRD (S/P/Bld) [Vol rate/Area] mL/min/{1.73_m2} Normal [facility] Comment on above: Order Comment: Speci [...] actual GFR. Performed By: #### 2 4321-2 ####[facility] LABORATORYCLIA [id number] [place] [address] Glucose [Mass/Vol] 154 mg/dL High 74-99 [facility] Comment on above: Order Comment: Speci men Type: BLOOD SPECIMEN Result Comment: The [place] [employer] (ADA) provides guidance for cutoff [...] Standards of Medical Care in Diabetes 2016, [place] [employer]. Diabetes Care. 2016.39(Suppl 1). Performed By: #### 2 4321-2 ####[facility] LABORATORYCLIA [id number] [place] [address] Potassium [Moles/Vol] 4.5 mmol/L Normal 3.7-5.1 [facility] Comment on above: Order Comment: Speci men Type: BLOOD SPECIMEN Performed By: #### 2 4321-2 ####[facility] LABORATORYCLIA [id number] [place] [address] Sodium [Moles/Vol] 139 mmol/L Normal 136-144 [facility] Comment on above: Order Comment: Speci men Type: BLOOD SPECIMEN Performed By: #### 2 4321-2 ####[facility] LABORATORYCLIA [id number] [place] [address] Urea nitrogen [Mass/Vol] 35 mg/dL High 7-21 [facility] Comment on above: Order Comment: Speci men Type: BLOOD SPECIMEN Performed By: #### 2 4321-2 ####[facility] LABORATORYCLIA [id number] [place] [address] CASE MANAGEMon 01-09-2021 CASE MANAGEM Normal [facility] CBC panel Auto (Bld)on 01-09 Erythrocyte distribution width (RBC) [Ratio] 17.1 % High 11.5-15.0 [facility] Comment on above: Order Comment: Speci men Type: BLOOD SPECIMEN Performed By: #### 5 8410-2 ####[facility] LABORATORYCLIA [id number] [place] [address] Hematocrit (Bld) [Volume fraction] 38.2 % Normal 36.0-46.0 [facility] Comment on above: Order Comment: Speci men Type: BLOOD SPECIMEN Performed By: #### 5 8410-2 ####[facility] LABORATORYCLIA [id number] [place] [address] Hemoglobin (Bld) [Mass/Vol] 12.3 g/dL Normal 11.5-15.5 [facility] Comment on above: Order Comment: Speci men Type: BLOOD SPECIMEN Performed By: #### 5 8410-2 ####[facility] LABORATORYCLIA [id number] [place] [address] MCH (RBC) [Entitic mass] 28.8 pg Normal 26.0-34.0 [facility] Comment on above: Order Comment: Speci men Type: BLOOD SPECIMEN Performed By: #### 5 8410-2 ####[facility] LABORATORYCLIA [id number] [place] [address] MCHC (RBC) [Mass/Vol] 32.2 g/dL Normal 30.5-36.0 [facility] Comment on above: Order Comment: Speci men Type: BLOOD SPECIMEN Performed By: #### 5 8410-2 ####[facility] LABORATORYCLIA [id number] [place] [address] MCV (RBC) [Entitic vol] 89.5 fL Normal 80.0-100.0 [facility] Comment on above: Order Comment: Speci men Type: BLOOD SPECIMEN Performed By: #### 5 8410-2 ####[facility] LABORATORYCLIA [id number] [place] [address] Nucleated RBC (Bld) [#/Vol] 0.02 10*3/uL High <0.01 [facility] Comment on above: Order Comment: Speci men Type: BLOOD SPECIMEN Performed By: #### 5 8410-2 ####[facility] LABORATORYCLIA [id number] [place] [address] Platelet mean volume (Bld) [Entitic vol] 10.8 fL Normal 9.0-12.7 [facility] Comment on above: Order Comment: Speci men Type: BLOOD SPECIMEN Performed By: #### 5 8410-2 ####[facility] LABORATORYCLIA [id number] [place] [address] Platelets (Bld) [#/Vol] 1121 10*3/uL High 150-400 [facility] Comment on above: Order Comment: Speci men Type: BLOOD SPECIMEN Result Comment: Plat elet count confirmed by manual review of peripheral blood smear Performed By: #### 5 8410-2 ####[facility] LABORATORYCLIA [id number] [place] [address] RBC (Bld) [#/Vol] 4.27 10*6/uL Normal 3.90-5.20 [facility] Comment on above: Order Comment: Speci men Type: BLOOD SPECIMEN Performed By: #### 5 8410-2 ####[facility] LABORATORYCLIA [id number] [place] [address] WBC (Bld) [#/Vol] 17.33 10*3/uL High 3.70-11.00 [facility] Comment on above: Order Comment: Speci men Type: BLOOD SPECIMEN Performed By: #### 5 8410-2 ####[facility] LABORATORYCLIA [id number] [place] [address] NURSING PROGon 01-09-2021 NURSING PROG Normal [facility] NURSING PROG Normal [facility] NUTRITIONon 01-09-2021 NUTRITION Normal [facility] THERAPY NTon 01-09-2021 THERAPY NT Normal [facility] Basic metabolic 2000 panelon 01-08-2021 Anion gap [Moles/Vol] 11 mmol/L Normal 9-18 [facility] Comment on above: Order Comment: Speci men Type: BLOOD SPECIMEN Performed By: #### Marilyn BERTRAND 85757-0 ####[facility] LABORATORYCLIA [id number] [place] [address] Calcium [Mass/Vol] 10.0 mg/dL Normal 8.5-10.2 [facility] Comment on above: Order Comment: Speci men Type: BLOOD SPECIMEN Performed By: #### Marilyn BERTRAND 38063-4 ####[facility]ORATORYCLIA [id number] [place] [address] Chloride [Moles/Vol] 103 mmol/L Normal 97-105 [facility] Comment on above: Order Comment: Speci men Type: BLOOD SPECIMEN Performed By: #### P MATILDEGIRMA, 80411-6 ####[facility] LABORATORYCLIA [id number] [place] [address] CO2 [Moles/Vol] 24 mmol/L Normal 22-30 [facility] Comment on above: Order Comment: Speci men Type: BLOOD SPECIMEN Performed By: #### P MATILDEGIRMA, 49031-7 ####[facility] LABORATORYCLIA [id number] [place] [address] Creatinine [Mass/Vol] 0.70 mg/dL Normal 0.58-0.96 [facility] Comment on above: Order Comment: Speci men Type: BLOOD SPECIMEN Performed By: #### P ELZA, 32085-3 ####[facility] LABORATORYCLIA [id number] [place] [address] GFR/1.73 sq M.predicted MDRD (S/P/Bld) [Vol rate/Area] mL/min/{1.73_m2} Normal [facility] Comment on above: Order Comment: Speci [...] accurately reflect actual GFR. Performed By: #### P ELZA, 46177-7 ####[facility] LABORATORYCLIA [id number] [place] [address] Glucose [Mass/Vol] 159 mg/dL High 74-99 [facility] Comment on above: Order Comment: Speci men Type: BLOOD SPECIMEN Result Comment: The [place] Diabetes [employer] (ADA) provides guidance for cutoff [...] Standards of Medical Care in Diabetes 2016, [place] [employer]. Diabetes Care. 2016.39(Suppl 1). Performed By: #### Marilyn BERTRAND 93167-4 ####[facility] LABORATORYCLIA [id number] [place] [address] Potassium [Moles/Vol] 3.9 mmol/L Normal 3.7-5.1 [facility] Comment on above: Order Comment: Speci men Type: BLOOD SPECIMEN Performed By: #### Marilyn BERTRAND 20263-6 ####[facility] LABORATORYCLIA [id number] [place] [address] Sodium [Moles/Vol] 138 mmol/L Normal 136-144 [facility] Comment on above: Order Comment: Speci men Type: BLOOD SPECIMEN Performed By: #### Marilyn BERTRAND 67456-1 ####[facility] LABORATORYCLIA [id number] [place] [address] Urea nitrogen [Mass/Vol] 33 mg/dL High 7-21 [facility] Comment on above: Order Comment: Speci men Type: BLOOD SPECIMEN Performed By: #### Marilyn BERTRAND 54748-7 ####[facility] LABORATORYCLIA [id number] [place] [address] CASE MANAGEMon 01-08-2021 CASE MANAGEM Normal [facility] CBC panel Auto (Bld)on 01-08 Erythrocyte distribution width (RBC) [Ratio] 17.0 % High 11.5-15.0 [facility] Comment on above: Order Comment: Speci men Type: BLOOD SPECIMEN Performed By: #### 5 8410-2 ####[facility] LABORATORYCLIA [id number] [place] [address] Hematocrit (Bld) [Volume fraction] 38.9 % Normal 36.0-46.0 [facility] Comment on above: Order Comment: Speci men Type: BLOOD SPECIMEN Performed By: #### 5 8410-2 ####[facility] LABORATORYCLIA [id number] [place] [address] Hemoglobin (Bld) [Mass/Vol] 13.0 g/dL Normal 11.5-15.5 [facility] Comment on above: Order Comment: Speci men Type: BLOOD SPECIMEN Performed By: #### 5 8410-2 ####[facility] LABORATORYCLIA [id number] [place] [address] MCH (RBC) [Entitic mass] 29.1 pg Normal 26.0-34.0 [facility] Comment on above: Order Comment: Speci men Type: BLOOD SPECIMEN Performed By: #### 5 8410-2 ####[facility] LABORATORYCLIA [id number] [place] [address] MCHC (RBC) [Mass/Vol] 33.4 g/dL Normal 30.5-36.0 [facility] Comment on above: Order Comment: Speci men Type: BLOOD SPECIMEN Performed By: #### 5 8410-2 ####[facility] LABORATORYCLIA [id number] [place] [address] MCV (RBC) [Entitic vol] 87.2 fL Normal 80.0-100.0 [facility] Comment on above: Order Comment: Speci men Type: BLOOD SPECIMEN Performed By: #### 5 8410-2 ####[facility] LABORATORYCLIA [id number] [place] [address] Nucleated RBC (Bld) [#/Vol] 10*3/uL Normal <0.01 [facility] Comment on above: Order Comment: Speci men Type: BLOOD SPECIMEN Performed By: #### 5 8410-2 ####[facility] LABORATORYCLIA [id number] [place] [address] Platelet mean volume (Bld) [Entitic vol] 10.7 fL Normal 9.0-12.7 [facility] Comment on above: Order Comment: Speci men Type: BLOOD SPECIMEN Performed By: #### 5 8410-2 ####[facility] LABORATORYCLIA [id number] [place] [address] Platelets (Bld) [#/Vol] 1099 10*3/uL High 150-400 [facility] Comment on above: Order Comment: Speci men Type: BLOOD SPECIMEN Performed By: #### 5 8410-2 ####[facility] LABORATORYCLIA [id number] [place] [address] RBC (Bld) [#/Vol] 4.46 10*6/uL Normal 3.90-5.20 [facility] Comment on above: Order Comment: Speci men Type: BLOOD SPECIMEN Performed By: #### 5 8410-2 ####[facility] LABORATORYCLIA [id number] [place] [address] WBC (Bld) [#/Vol] 21.32 10*3/uL High 3.70-11.00 [facility] Comment on above: Order Comment: Speci men Type: BLOOD SPECIMEN Performed By: #### 5 8410-2 ####[facility] LABORATORYCLIA [id number] [place] [address] CRP SerPl-mCncon 01-08-2021 CRP [Mass/Vol] 7.7 mg/dL High <0.9 [facility] Comment on above: Order Comment: Speci men Type: BLOOD SPECIMEN Performed By: #### 1 988-5 ####[facility]ORATORYCLIA [id number] [place] [address] NURSING PROGon 01-08-2021 NURSING PROG Normal [facility] NURSING PROG Normal [facility] PROCALCITONIN (LAB)on 2020 Procalcitonin [Mass/Vol] 0.97 ng/mL High <0.09 [facility] Comment on above: Order Comment: Speci men Type: BLOOD SPECIMEN Result Comment: For a guided interpretation of test results, please visit the Change in Procalcitonin Calculator, [email or web address]. Performed By: #### P Teresita BERTRAND21-2 ####[facility]ATORYCLIA [id number] [place] [address] Prealbumin [Mass/Vol]on 12-17 Prealbumin Nephelometry [Mass/Vol] 32 mg/dL Normal 17-36 [facility] Comment on above: Order Comment: Speci men Type: BLOOD SPECIMEN Performed By: #### 1 4338-8 ####[facility]ORATORYCLIA [id number] [place] [address] THERAPY NTon 01-08-2021 THERAPY NT Normal [facility] THERAPY NT Normal [facility] THERAPY NT Normal [facility] XR MOD BARIUM SWALLOW W SPEE Olya 01-08-2021 XR MOD BARIUM SWALLOW W SPEECH Normal [facility] ALLIED HEALTHon 01-07-2021 ALLIED HEALTH Normal [facility] Basic metabolic 2000 panelon 01-07-2021 Anion gap [Moles/Vol] 12 mmol/L Normal 9-18 [facility] Comment on above: Order Comment: Speci men Type: BLOOD SPECIMEN Performed By: #### 2 4321-2, 88767-8 ####[facility]ORATORYCLIA [id number] [place] [address] Calcium [Mass/Vol] 10.3 mg/dL High 8.5-10.2 [facility] Comment on above: Order Comment: Speci men Type: BLOOD SPECIMEN Performed By: #### 2 4321-2, 10009-2 ####[facility]ORATORYCLIA [id number] [place] [address] Chloride [Moles/Vol] 102 mmol/L Normal 97-105 [facility] Comment on above: Order Comment: Speci men Type: BLOOD SPECIMEN Performed By: #### 2 4321-2, 81189-7 ####[facility]ORYCLIA [id number] [place] [address] CO2 [Moles/Vol] 26 mmol/L Normal 22-30 [facility] Comment on above: Order Comment: Speci men Type: BLOOD SPECIMEN Performed By: #### 2 4321-2, 40285-3 ####[facility]ORATORYCLIA [id number] [place] [address] Creatinine [Mass/Vol] 0.67 mg/dL Normal 0.58-0.96 [facility] Comment on above: Order Comment: Speci men Type: BLOOD SPECIMEN Performed By: #### 2 4321-2, 82530-4 ####[facility]ORATORYCLIA [id number] [place] [address] GFR/1.73 sq M.predicted MDRD (S/P/Bld) [Vol rate/Area] mL/min/{1.73_m2} Normal [facility] Comment on above: Order Comment: Speci [...] actual GFR. Performed By: #### 2 4321-2, 66424-8 ####[facility]ORATORYCLIA [id number] [place] [address] Glucose [Mass/Vol] 159 mg/dL High 74-99 [facility] Comment on above: Order Comment: Speci [facility] Type: BLOOD SPECIMEN Result Comment: The [place] Diabetes Association (ADA) provides guidance for cutoff [...] Standards of Medical Care in Diabetes 2016, [place] [employer]. Diabetes Care. 2016.39(Suppl 1). Performed By: #### 2 4321-2, 88806-2 ####[facility]ORATORYCLIA [id number] [place] [address] Potassium [Moles/Vol] 4.1 mmol/L Normal 3.7-5.1 [facility] Comment on above: Order Comment: Speci men Type: BLOOD SPECIMEN Performed By: #### 2 4321-2, 91965-8 ####[facility]ORATORYCLIA [id number] [place] [address] Sodium [Moles/Vol] 140 mmol/L Normal 136-144 [facility] Comment on above: Order Comment: Speci men Type: BLOOD SPECIMEN Performed By: #### 2 4321-2, 77661-4 ####[facility]ORATORYCLIA [id number] [place] [address] Urea nitrogen [Mass/Vol] 33 mg/dL High 7-21 [facility] Comment on above: Order Comment: Speci men Type: BLOOD SPECIMEN Performed By: #### 2 4321-2, 46971-7 ####[facility]ORATORYCLIA [id number] [place] [address] CBC panel Auto (Bld)on 01-07 Erythrocyte distribution width (RBC) [Ratio] 17.1 % High 11.5-15.0 [facility] Comment on above: Order Comment: Speci men Type: BLOOD SPECIMEN Performed By: #### 5 8410-2 ####[facility]ORATORYCLIA [id number] [place] [address] Hematocrit (Bld) [Volume fraction] 44.5 % Normal 36.0-46.0 [facility] Comment on above: Order Comment: Speci men Type: BLOOD SPECIMEN Performed By: #### 5 8410-2 ####[facility]ORATORYCLIA [id number] [place] [address] Hemoglobin (Bld) [Mass/Vol] 14.0 g/dL Normal 11.5-15.5 [facility] Comment on above: Order Comment: Speci men Type: BLOOD SPECIMEN Performed By: #### 5 8410-2 ####[facility]ORATORYCLIA [id number] [place] [address] MCH (RBC) [Entitic mass] 28.2 pg Normal 26.0-34.0 [facility] Comment on above: Order Comment: Speci men Type: BLOOD SPECIMEN Performed By: #### 5 8410-2 ####[facility]ORATORYCLIA [id number] [place] [address] MCHC (RBC) [Mass/Vol] 31.5 g/dL Normal 30.5-36.0 [facility] Comment on above: Order Comment: Speci men Type: BLOOD SPECIMEN Performed By: #### 5 8410-2 ####[facility]ORATORYCLIA [id number] [place] [address] MCV (RBC) [Entitic vol] 89.7 fL Normal 80.0-100.0 [facility] Comment on above: Order Comment: Speci men Type: BLOOD SPECIMEN Performed By: #### 5 8410-2 ####[facility]ORATORYCLIA [id number] [place] [address] Nucleated RBC (Bld) [#/Vol] 10*3/uL Normal <0.01 [facility] Comment on above: Order Comment: Speci men Type: BLOOD SPECIMEN Performed By: #### 5 8410-2 ####[facility]ORATORYCLIA [id number] [place] [address] Platelet mean volume (Bld) [Entitic vol] 11.1 fL Normal 9.0-12.7 [facility] Comment on above: Order Comment: Speci men Type: BLOOD SPECIMEN Performed By: #### 5 8410-2 ####[facility]ORATORYCLIA [id number] [place] [address] Platelets (Bld) [#/Vol] 1068 10*3/uL High 150-400 [facility] Comment on above: Order Comment: Speci men Type: BLOOD SPECIMEN Performed By: #### 5 8410-2 ####[facility]ORATORYCLIA [id number] [place] [address] RBC (Bld) [#/Vol] 4.96 10*6/uL Normal 3.90-5.20 [facility] Comment on above: Order Comment: Speci men Type: BLOOD SPECIMEN Performed By: #### 5 8410-2 ####[facility]ORATORYCLIA [id number] [place] [address] WBC (Bld) [#/Vol] 18.49 10*3/uL High 3.70-11.00 [facility] Comment on above: Order Comment: Speci men Type: BLOOD SPECIMEN Performed By: #### 5 8410-2 ####[facility]ORATORYCLIA [id number] [place] [address] CONSULTon 01-07-2021 CONSULT Normal [facility] NT-proBNP SerPl-mCncon 01-07 Natriuretic peptide.B prohormone N-Terminal [Mass/Vol] 288 pg/mL High <125 [facility] Comment on above: Order Comment: Speci men Type: BLOOD SPECIMEN Performed By: #### 2 4321-2, 44046-8 ####[facility]ORATORYCLIA [id number] [place] [address] NURSING PROGon 01-07-2021 NURSING PROG Normal [facility] NURSING PROG Normal [facility] NURSING PROG Normal [facility] THERAPY NTon 01-07-2021 THERAPY NT Normal [facility] XR CHEST 1V FRONTALon 2020 XR CHEST 1V FRONTAL Normal [facility] ALLIED HEALTHon 01-06-2021 ALLIED HEALTH Normal [facility] Basic metabolic 2000 panelon 01-06-2021 Anion gap [Moles/Vol] 8 mmol/L Low 9-18 [facility] Comment on above: Order Comment: Speci men Type: BLOOD SPECIMEN Performed By: #### 2 4321-2 ####[facility]ORATORYCLIA [id number] [place] [address] Calcium [Mass/Vol] 9.4 mg/dL Normal 8.5-10.2 [facility] Comment on above: Order Comment: Speci men Type: BLOOD SPECIMEN Performed By: #### 2 4321-2 ####[facility]ORATORYCLIA [id number] [place] [address] Chloride [Moles/Vol] 104 mmol/L Normal 97-105 [facility] Comment on above: Order Comment: Speci men Type: BLOOD SPECIMEN Performed By: #### 2 4321-2 ####[facility]ORATORYCLIA [id number] [place] [address] CO2 [Moles/Vol] 24 mmol/L Normal 22-30 [facility] Comment on above: Order Comment: Speci men Type: BLOOD SPECIMEN Performed By: #### 2 4321-2 ####[facility]ORATORYCLIA [id number] [place] [address] Creatinine [Mass/Vol] 0.77 mg/dL Normal 0.58-0.96 [facility] Comment on above: Order Comment: Speci men Type: BLOOD SPECIMEN Performed By: #### 2 4321-2 ####[facility]ATORYCLIA [id number] [place] [address] GFR/1.73 sq M.predicted MDRD (S/P/Bld) [Vol rate/Area] mL/min/{1.73_m2} Normal [facility] Comment on above: Order Comment: Speci [...] actual GFR. Performed By: #### 2 4321-2 ####[facility]ORATORYCLIA [id number] [place] [address] Glucose [Mass/Vol] 150 mg/dL High 74-99 [facility] Comment on above: Order Comment: Speci men Type: BLOOD SPECIMEN Result Comment: The [place] Diabetes Association (ADA) provides guidance for cutoff [...] Standards of Medical Care in Diabetes 2016, [place] [employer]. Diabetes Care. 2016.39(Suppl 1). Performed By: #### 2 4321-2 ####[facility]ORATORYCLIA [id number] [place] [address] Potassium [Moles/Vol] 3.9 mmol/L Normal 3.7-5.1 [facility] Comment on above: Order Comment: Speci men Type: BLOOD SPECIMEN Performed By: #### 2 4321-2 ####[facility]ORATORYCLIA [id number] [place] [address] Sodium [Moles/Vol] 136 mmol/L Normal 136-144 [facility] Comment on above: Order Comment: Speci men Type: BLOOD SPECIMEN Performed By: #### 2 4321-2 ####[facility]ORATORYCLIA [id number] [place] [address] Urea nitrogen [Mass/Vol] 32 mg/dL High 7-21 [facility] Comment on above: Order Comment: Speci men Type: BLOOD SPECIMEN Performed By: #### 2 4321-2 ####[facility]ORATORYCLIA [id number] [place] [address] CBC panel Auto (Bld)on 01-06 Erythrocyte distribution width (RBC) [Ratio] 16.6 % High 11.5-15.0 [facility] Comment on above: Order Comment: Speci men Type: BLOOD SPECIMEN Performed By: #### 5 8410-2 ####[facility]ORATORYCLIA [id number] [place] [address] Hematocrit (Bld) [Volume fraction] 40.3 % Normal 36.0-46.0 [facility] Comment on above: Order Comment: Speci men Type: BLOOD SPECIMEN Performed By: #### 5 8410-2 ####[facility]ORATORYCLIA [id number] [place] [address] Hemoglobin (Bld) [Mass/Vol] 12.7 g/dL Normal 11.5-15.5 [facility] Comment on above: Order Comment: Speci men Type: BLOOD SPECIMEN Performed By: #### 5 8410-2 ####[facility]ATORYCLIA [id number] [place] [address] MCH (RBC) [Entitic mass] 28.2 pg Normal 26.0-34.0 [facility] Comment on above: Order Comment: Speci men Type: BLOOD SPECIMEN Performed By: #### 5 8410-2 ####[facility]ATORYCLIA [id number] [place] [address] MCHC (RBC) [Mass/Vol] 31.5 g/dL Normal 30.5-36.0 [facility] Comment on above: Order Comment: Speci men Type: BLOOD SPECIMEN Performed By: #### 5 8410-2 ####[facility]ATORYCLIA [id number] [place] [address] MCV (RBC) [Entitic vol] 89.4 fL Normal 80.0-100.0 [facility] Comment on above: Order Comment: Speci men Type: BLOOD SPECIMEN Performed By: #### 5 8410-2 ####[facility]ORATORYCLIA [id number] [place] [address] Nucleated RBC (Bld) [#/Vol] 10*3/uL Normal <0.01 [facility] Comment on above: Order Comment: Speci men Type: BLOOD SPECIMEN Performed By: #### 5 8410-2 ####[facility]ORATORYCLIA [id number] [place] [address] Platelet mean volume (Bld) [Entitic vol] 11.1 fL Normal 9.0-12.7 [facility] Comment on above: Order Comment: Speci men Type: BLOOD SPECIMEN Performed By: #### 5 8410-2 ####[facility]ATORYCLIA [id number] [place] [address] Platelets (Bld) [#/Vol] 781 10*3/uL High 150-400 [facility] Comment on above: Order Comment: Speci men Type: BLOOD SPECIMEN Performed By: #### 5 8410-2 ####[facility]ATORYCLIA [id number] [place] [address] RBC (Bld) [#/Vol] 4.51 10*6/uL Normal 3.90-5.20 [facility] Comment on above: Order Comment: Speci men Type: BLOOD SPECIMEN Performed By: #### 5 8410-2 ####[facility]ATORYCLIA [id number] [place] [address] WBC (Bld) [#/Vol] 17.71 10*3/uL High 3.70-11.00 [facility] Comment on above: Order Comment: Speci men Type: BLOOD SPECIMEN Performed By: #### 5 8410-2 ####[facility]ORATORYCLIA [id number] [place] [address] NURSING PROGon 01-06-2021 NURSING PROG Normal [facility] UA WITH CULTURE IF INDICATED on 01-06-2021 Bacteria LM.HPF (Urine sed) [#/Area] None Seen Normal None Seen [facility] Comment on above: Order Comment: Speci men Type: URINE SPECIMEN Performed By: #### U ACII ####[facility]ORATORYCLIA [id number] [place] [address] Bilirubin Ql (U) Negative Normal Negative [facility] Comment on above: Order Comment: Speci men Type: URINE SPECIMEN Performed By: #### U ACII ####[facility]ORATORYCLIA [id number] [place] [address] Clarity (Unsp spec) Cloudy Abnormal Clear [facility] Comment on above: Order Comment: Speci men Type: URINE SPECIMEN Performed By: #### U ACII ####[facility]ORATORYCLIA [id number] [place] [address] Color (U) Yellow Normal Yellow [facility] Comment on above: Order Comment: Speci men Type: URINE SPECIMEN Performed By: #### U ACII ####[facility]ORATORYCLIA [id number] [place] [address] Epithelial cells LM.HPF (Urine sed) [#/Area] 0.8 /[HPF] Normal [facility] Comment on above: Order Comment: Speci men Type: URINE SPECIMEN Performed By: #### U ACII ####[facility]ORATORYCLIA [id number] [place] [address] Glucose Test strip (U) [Mass/Vol] Negative Normal Negative [facility] Comment on above: Order Comment: Speci men Type: URINE SPECIMEN Performed By: #### U ACII ####[facility]ORATORYCLIA [id number] [place] [address] Hemoglobin Ql (U) Negative Normal Negative [facility] Comment on above: Order Comment: Speci men Type: URINE SPECIMEN Performed By: #### U ACII ####[facility]ORATORYCLIA [id number] [place] [address] Hyaline casts (Urine sed) [#/Area] 0 /[LPF] Normal 0 /LPF [facility] Comment on above: Order Comment: Speci men Type: URINE SPECIMEN Performed By: #### U ACII ####[facility]ATORYCLIA [id number] [place] [address] Ketones Ql (U) Negative Normal Negative [facility] Comment on above: Order Comment: Speci men Type: URINE SPECIMEN Performed By: #### U ACII ####[facility]ORYCLIA [id number] [place] [address] Leukocyte esterase Test strip Ql (U) Negative Normal Negative [facility] Comment on above: Order Comment: Speci men Type: URINE SPECIMEN Performed By: #### U ACII ####[facility]ATORYCLIA [id number] [place] [address] Nitrite Ql (U) Negative Normal Negative [facility] Comment on above: Order Comment: Speci men Type: URINE SPECIMEN Performed By: #### U ACII ####[facility]ATORYCLIA [id number] [place] [address] pH (U) 7.0 [pH] Normal 5.0-8.0 [facility] Comment on above: Order Comment: Speci men Type: URINE SPECIMEN Performed By: #### U ACII ####[facility]ORATORYCLIA [id number] [place] [address] Protein (U) [Mass/Vol] Negative Normal Negative [facility] Comment on above: Order Comment: Speci men Type: URINE SPECIMEN Performed By: #### U ACII ####[facility]ORATORYCLIA [id number] [place] [address] RBC LM.HPF (Urine sed) [#/Area] 3-5 /HPF Abnormal 0-3 /HPF [facility] Comment on above: Order Comment: Speci men Type: URINE SPECIMEN Performed By: #### U ACII ####[facility]ORATORYCLIA [id number] [place] [address] Specific gravity (U) [Rel density] 1.025 Normal 1.005-1.030 [facility] Comment on above: Order Comment: Speci men Type: URINE SPECIMEN Performed By: #### U ACII ####[facility]ORATORYCLIA [id number] [place] [address] Urobilinogen Ql (U) 4.0 EU/dL Abnormal 0.2-1.0 EU/dL [facility] Comment on above: Order Comment: Speci men Type: URINE SPECIMEN Performed By: #### U ACII ####[facility]ATORYCLIA [id number] [place] [address] WBC LM.HPF (Urine sed) [#/Area] 0-5 /HPF Normal 0-5 /HPF [facility] Comment on above: Order Comment: Speci men Type: URINE SPECIMEN Performed By: #### U ACII ####[facility]ORATORYCLIA [id number] [place] [address] XR KNEE 2V AP/LAT RTon 01-06 XR KNEE 2V AP/LAT RT Normal [facility] ALLIED HEALTHon 01-05-2021 ALLIED HEALTH Normal [facility] ALLIED HEALTH Normal [facility] ALLIED HEALTH Normal [facility] Basic metabolic 2000 panelon 01-05-2021 Anion gap [Moles/Vol] 11 mmol/L Normal 9-18 [facility] Comment on above: Order Comment: Speci men Type: BLOOD SPECIMEN Performed By: #### 2 4321-2 ####[facility]ORATORYCLIA [id number] [place] [address] Calcium [Mass/Vol] 9.3 mg/dL Normal 8.5-10.2 [facility] Comment on above: Order Comment: Speci men Type: BLOOD SPECIMEN Performed By: #### 2 4321-2 ####[facility]ORYCLIA [id number] [place] [address] Chloride [Moles/Vol] 105 mmol/L Normal 97-105 [facility] Comment on above: Order Comment: Speci men Type: BLOOD SPECIMEN Performed By: #### 2 4321-2 ####[facility]ORYCLIA [id number] [place] [address] CO2 [Moles/Vol] 20 mmol/L Low 22-30 [facility] Comment on above: Order Comment: Speci men Type: BLOOD SPECIMEN Performed By: #### 2 4321-2 ####[facility]ORYCLIA [id number] [place] [address] Creatinine [Mass/Vol] 0.84 mg/dL Normal 0.58-0.96 [facility] Comment on above: Order Comment: Speci men Type: BLOOD SPECIMEN Performed By: #### 2 4321-2 ####[facility]ORATORYCLIA [id number] [place] [address] GFR/1.73 sq M.predicted MDRD (S/P/Bld) [Vol rate/Area] mL/min/{1.73_m2} Normal [facility] Comment on above: Order Comment: Speci [...] actual GFR. Performed By: #### 2 4321-2 ####[facility]ORATORYCLIA [id number] [place] [address] Glucose [Mass/Vol] 150 mg/dL High 74-99 [facility] Comment on above: Order Comment: Speci men Type: BLOOD SPECIMEN Result Comment: The [place] [employer] (ADA) provides guidance for cutoff [...] Standards of Medical Care in Diabetes 2016, [place] [employer]. Diabetes Care. 2016.39(Suppl 1). Performed By: #### 2 4321-2 ####[facility]ORATORYCLIA [id number] [place] [address] Potassium [Moles/Vol] Normal [facility] Comment on above: Order Comment: Speci [facility] Type: BLOOD SPECIMEN Result Comment: Unab le to assay due to interference from hemolysis. Suggest reorder as clinically indicated. Performed By: #### 2 4321-2 ####[facility]ORATORYCLIA [id number] [place] [address] Sodium [Moles/Vol] 136 mmol/L Normal 136-144 [facility] Comment on above: Order Comment: Speci men Type: BLOOD SPECIMEN Performed By: #### 2 4321-2 ####[facility]ORATORYCLIA [id number] [place] [address] Urea nitrogen [Mass/Vol] 36 mg/dL High 03-07 [facility] Comment on above: Order Comment: Speci men Type: BLOOD SPECIMEN Performed By: #### 2 4321-2 ####[facility]ORATORYCLIA [id number] [place] [address] CASE MANAGEMon 01-05-2021 CASE MANAGEM Normal [facility] CBC panel Auto (Bld)on 01-05 Erythrocyte distribution width (RBC) [Ratio] 16.4 % High 11.5-15.0 [facility] Comment on above: Order Comment: Speci men Type: BLOOD SPECIMEN Performed By: #### 5 8410-2 ####[facility]ORATORYCLIA [id number] [place] [address] Hematocrit (Bld) [Volume fraction] 40.0 % Normal 36.0-46.0 [facility] Comment on above: Order Comment: Speci men Type: BLOOD SPECIMEN Performed By: #### 5 8410-2 ####[facility]ORATORYCLIA [id number] [place] [address] Hemoglobin (Bld) [Mass/Vol] 12.8 g/dL Normal 11.5-15.5 [facility] Comment on above: Order Comment: Speci men Type: BLOOD SPECIMEN Performed By: #### 5 8410-2 ####[facility]ORATORYCLIA [id number] [place] [address] MCH (RBC) [Entitic mass] 28.7 pg Normal 26.0-34.0 [facility] Comment on above: Order Comment: Speci men Type: BLOOD SPECIMEN Performed By: #### 5 8410-2 ####[facility]ORATORYCLIA [id number] [place] [address] MCHC (RBC) [Mass/Vol] 32.0 g/dL Normal 30.5-36.0 [facility] Comment on above: Order Comment: Speci men Type: BLOOD SPECIMEN Performed By: #### 5 8410-2 ####[facility]ORATORYCLIA [id number] [place] [address] MCV (RBC) [Entitic vol] 89.7 fL Normal 80.0-100.0 [facility] Comment on above: Order Comment: Speci men Type: BLOOD SPECIMEN Performed By: #### 5 8410-2 ####[facility]ORATORYCLIA [id number] [place] [address] Nucleated RBC (Bld) [#/Vol] 0.02 10*3/uL High <0.01 [facility] Comment on above: Order Comment: Speci men Type: BLOOD SPECIMEN Performed By: #### 5 8410-2 ####[facility]ORATORYCLIA [id number] [place] [address] Platelet mean volume (Bld) [Entitic vol] 11.5 fL Normal 9.0-12.7 [facility] Comment on above: Order Comment: Speci men Type: BLOOD SPECIMEN Performed By: #### 5 8410-2 ####[facility]ORATORYCLIA [id number] [place] [address] Platelets (Bld) [#/Vol] 587 10*3/uL High 150-400 [facility] Comment on above: Order Comment: Speci men Type: BLOOD SPECIMEN Performed By: #### 5 8410-2 ####[facility]ORATORYCLIA [id number] [place] [address] RBC (Bld) [#/Vol] 4.46 10*6/uL Normal 3.90-5.20 [facility] Comment on above: Order Comment: Speci men Type: BLOOD SPECIMEN Performed By: #### 5 8410-2 ####[facility]ORATORYCLIA [id number] [place] [address] WBC (Bld) [#/Vol] 19.64 10*3/uL High 3.70-11.00 [facility] Comment on above: Order Comment: Speci men Type: BLOOD SPECIMEN Performed By: #### 5 8410-2 ####[facility] LABORATORYCLIA [id number] [place] [address] CT ABD/PEL W IVCONon 021 CT ABD/PEL W IVCON Normal [facility] CT BRAIN WO IVCONon 01-06-20 CT BRAIN WO IVCON Normal [facility] CT CERVICAL SPINE WO IVCONon 01-05-2021 CT CERVICAL SPINE WO IVCON Normal [facility] NURSING PROGon 01-05-2021 NURSING PROG Normal [facility] NURSING PROG Normal [facility] NURSING PROG Normal [facility] NURSING PROG Normal [facility] NURSING PROG Normal [facility] PROCALCITONIN (LAB)on 2020 Procalcitonin [Mass/Vol] 3.59 ng/mL High <0.09 [facility] Comment on above: Order Comment: Speci men Type: BLOOD SPECIMEN Result Comment: For a guided interpretation of test results, please visit the Change in Procalcitonin Calculator, [email or web address]. Performed By: #### P ROCAL ####[facility]ORATORYCLIA [id number] [place] [address] THERAPY NTon 01-05-2021 THERAPY NT Normal [facility] XR CHEST 1V FRONTAL PORTon 0 01-05-2021 XR CHEST 1V FRONTAL PORT Normal [facility] ALLIED HEALTHon 01-04-2021 ALLIED HEALTH Normal [facility] Basic metabolic 2000 panelon 01-04-2021 Anion gap [Moles/Vol] 8 mmol/L Low 9-18 [facility] Comment on above: Order Comment: Speci men Type: BLOOD SPECIMEN Performed By: #### 1 9123-9, 2777-1, 05949-6, 1987- ####[facility]ATORYCLIA [id number] [place] [address] Calcium [Mass/Vol] 8.5 mg/dL Normal 8.5-10.2 [facility] Comment on above: Order Comment: Speci men Type: BLOOD SPECIMEN Performed By: #### 1 9123-9, 27702-15, , 1987-12 ####[facility]ORATORYCLIA [id number] [place] [address] Chloride [Moles/Vol] 107 mmol/L High 97-105 [facility] Comment on above: Order Comment: Speci men Type: BLOOD SPECIMEN Performed By: #### 1 9123-9, 2776-08, , 1987-12 ####[facility]ORATORYCLIA [id number] [place] [address] CO2 [Moles/Vol] 23 mmol/L Normal 22-30 [facility] Comment on above: Order Comment: Speci men Type: BLOOD SPECIMEN Performed By: #### 1 9123-9, 2776-08, , 1987-12 ####[facility]ORATORYCLIA [id number] [place] [address] Creatinine [Mass/Vol] 0.91 mg/dL Normal 0.58-0.96 [facility] Comment on above: Order Comment: Speci men Type: BLOOD SPECIMEN Performed By: #### 1 9123-9, 2776-08, , 1987-12 ####[facility]ORATORYCLIA [id number] [place] [address] GFR/1.73 sq M.predicted MDRD (S/P/Bld) [Vol rate/Area] mL/min/{1.73_m2} Normal [facility] Comment on above: Order Comment: Speci men Type: BLOOD SPECIMEN Result Comment: >60e GFR (Estimated GFR) Units of measure: mL/min/1.73 meters squaredeGFR is derived from the reexpressed MDRD Study equation using the following parameters: serum creatinine, age, gender and race. The creatinine assay has been calibrated to be traceable to [email or web address]. An eGFR <60 mL/min/1.73m2 for >3 months is consistent with chronic kidney disease. Refer to KDOQI guidelines for clinical interpretation. In patients with unstable renal function, e.g. those with acute kidney injury, the eGFR may not accurately reflect actual GFR. Performed By: #### 1 9123-9, 2776-, , 1987-12 ####[facility]ORATORYCLIA [id number] [place] [address] Glucose [Mass/Vol] 128 mg/dL High 74-99 [facility] Comment on above: Order Comment: Speci men Type: BLOOD SPECIMEN Result Comment: The [place] [employer] (ADA) provides guidance for cutoff [...] Standards of Medical Care in Diabetes 2016, [place] [employer]. Diabetes Care. 2016.39(Suppl 1). Performed By: #### 1 9123-9, 2776-08, , 1987-12 ####[facility]ORATORYCLIA [id number] [place] [address] Potassium [Moles/Vol] 3.7 mmol/L Normal 3.7-5.1 [facility] Comment on above: Order Comment: Speci men Type: BLOOD SPECIMEN Performed By: #### 1 9123-9, 2776-08, , 1987-12 ####[facility]ORATORYCLIA [id number] [place] [address] Sodium [Moles/Vol] 138 mmol/L Normal 136-144 [facility] Comment on above: Order Comment: Speci men Type: BLOOD SPECIMEN Performed By: #### 1 9123-9, 2776-08, , 1987-12 ####[facility]ORATORYCLIA [id number] [place] [address] Urea nitrogen [Mass/Vol] 34 mg/dL High 03-07 [facility] Comment on above: Order Comment: Speci men Type: BLOOD SPECIMEN Performed By: #### 1 9123-9, 2777-1, 48335-0, 1987-12 ####[facility]ORATORYCLIA [id number] [place] [address] CALCIUM IONIZED Bon 01-05-20 Calcium.ionized (BldV) [Mass/Vol] 1.25 mmol/L Normal 1.08-1.30 [facility] Comment on above: Order Comment: Speci men Type: BLOOD SPECIMEN Performed By: #### I CA ####[facility]ORATORYCLIA [id number] [place] [address] Calcium.ionized adjusted to pH 7.4 (Bld) [Moles/Vol] 1.19 mmol/L Normal 1.08-1.30 [facility] Comment on above: Order Comment: Speci men Type: BLOOD SPECIMEN Performed By: #### I CA ####[facility]ORATORYCLIA [id number] [place] [address] CASE MANAGEMon 01-04-2021 CASE MANAGEM Normal [facility] CBC panel Auto (Bld)on 01-04 Erythrocyte distribution width (RBC) [Ratio] 16.8 % High 11.5-15.0 [facility] Comment on above: Order Comment: Speci men Type: BLOOD SPECIMEN Performed By: #### 5 8410-2 ####[facility]ORATORYCLIA [id number] [place] [address] Hematocrit (Bld) [Volume fraction] 36.8 % Normal 36.0-46.0 [facility] Comment on above: Order Comment: Speci men Type: BLOOD SPECIMEN Performed By: #### 5 8410-2 ####[facility]ORATORYCLIA [id number] [place] [address] Hemoglobin (Bld) [Mass/Vol] 11.7 g/dL Normal 11.5-15.5 [facility] Comment on above: Order Comment: Speci men Type: BLOOD SPECIMEN Performed By: #### 5 8410-2 ####[facility]ORATORYCLIA [id number] [place] [address] MCH (RBC) [Entitic mass] 28.4 pg Normal 26.0-34.0 [facility] Comment on above: Order Comment: Speci men Type: BLOOD SPECIMEN Performed By: #### 5 8410-2 ####[facility]ORATORYCLIA [id number] [place] [address] MCHC (RBC) [Mass/Vol] 31.8 g/dL Normal 30.5-36.0 [facility] Comment on above: Order Comment: Speci men Type: BLOOD SPECIMEN Performed By: #### 5 8410-2 ####[facility]ORATORYCLIA [id number] [place] [address] MCV (RBC) [Entitic vol] 89.3 fL Normal 80.0-100.0 [facility] Comment on above: Order Comment: Speci men Type: BLOOD SPECIMEN Performed By: #### 5 8410-2 ####[facility]ORATORYCLIA [id number] [place] [address] Nucleated RBC (Bld) [#/Vol] 0.02 10*3/uL High <0.01 [facility] Comment on above: Order Comment: Speci men Type: BLOOD SPECIMEN Performed By: #### 5 8410-2 ####[facility]ORATORYCLIA [id number] [place] [address] Platelet mean volume (Bld) [Entitic vol] 10.9 fL Normal 9.0-12.7 [facility] Comment on above: Order Comment: Speci men Type: BLOOD SPECIMEN Performed By: #### 5 8410-2 ####[facility]ORATORYCLIA [id number] [place] [address] Platelets (Bld) [#/Vol] 432 10*3/uL High 150-400 [facility] Comment on above: Order Comment: Speci men Type: BLOOD SPECIMEN Performed By: #### 5 8410-2 ####[facility]ORATORYCLIA [id number] [place] [address] RBC (Bld) [#/Vol] 4.12 10*6/uL Normal 3.90-5.20 [facility] Comment on above: Order Comment: Speci men Type: BLOOD SPECIMEN Performed By: #### 5 8410-2 ####[facility]ORATORYCLIA [id number] [place] [address] WBC (Bld) [#/Vol] 17.90 10*3/uL High 3.70-11.00 [facility] Comment on above: Order Comment: Speci men Type: BLOOD SPECIMEN Performed By: #### 5 8410-2 ####[facility]ORATORYCLIA [id number] [place] [address] CONSULT PROGon 01-04-2021 CONSULT PROG Normal [facility] CRP SerPl-mCncon 01-04-2021 CRP [Mass/Vol] 10.1 mg/dL High <0.9 [facility] Comment on above: Order Comment: Speci men Type: BLOOD SPECIMEN Performed By: #### 1 9123-9, 27771, , 1987-12 ####[facility]ORATORYCLIA [id number] [place] [address] Magnesium SerPl-mCncon 01-04 Magnesium [Mass/Vol] 2.1 mg/dL Normal 1.7-2.3 [facility] Comment on above: Order Comment: Speci men Type: BLOOD SPECIMEN Performed By: #### 1 9123-9, 2777-1, , 1987-12 ####[facility]ORATORYCLIA [id number] [place] [address] NURSING PROGon 01-04-2021 NURSING PROG Normal [facility] NURSING PROG Normal [facility] NURSING PROG Normal [facility] NURSING PROG Normal [facility] NUTRITIONon 01-04-2021 NUTRITION Normal [facility] Phosphate SerPl-mCncon 01-04 Phosphate [Mass/Vol] 3.5 mg/dL Normal 2.7-4.8 [facility] Comment on above: Order Comment: Speci men Type: BLOOD SPECIMEN Performed By: #### 1 9123-9, 2777-1, 30899-7, 1987- ####[facility]ORATORYCLIA [id number] [place] [address] Prealbumin [Mass/Vol]on 12-17 Prealbumin Nephelometry [Mass/Vol] 20 mg/dL Normal [facility] Comment on above: Order Comment: Speci men Type: BLOOD SPECIMEN Performed By: #### 1 4338-8 ####[facility]ORATORYCLIA [id number] [place] [address] XR ABDOMEN 1V SUPINEon 01-04 XR ABDOMEN 1V SUPINE Normal [facility] ALLIED HEALTHon 01-03-2021 ALLIED HEALTH Normal [facility] ALLIED HEALTH Normal [facility] ARTERIAL BLOOD GASESon 01-03 Base excess Calc (Bld) [Moles/Vol] 4 mmol/L High [facility] Comment on above: Order Comment: Speci men Type: ARTERIAL BLOOD SPECIMEN Performed By: #### A LLBG ####[facility]ORATORYCLIA [id number] [place] [address] Body temperature 97.7 [degF] Normal [facility] Comment on above: Order Comment: Speci men Type: ARTERIAL BLOOD SPECIMEN Performed By: #### A LLBG ####[facility]ORATORYCLIA [id number] [place] [address] CALCIUM IONIZED, PH CORRECTED 1.21 mmol/L Normal 1.08-1.30 [facility] Comment on above: Order Comment: Speci men Type: ARTERIAL BLOOD SPECIMEN Performed By: #### A LLBG ####[facility]ORATORYCLIA [id number] [place] [address] Calcium.ionized (BldV) [Mass/Vol] 1.20 mmol/L Normal 1.08-1.30 [facility] Comment on above: Order Comment: Speci men Type: ARTERIAL BLOOD SPECIMEN Performed By: #### A LLBG ####[facility]ORATORYCLIA [id number] [place] [address] Carboxyhemoglobin (BldA) [Mass fraction] <1.0 Normal 0.0-2.0 [facility] Comment on above: Order Comment: Speci men Type: ARTERIAL BLOOD SPECIMEN Result Comment: Carb oxyhemoglobin Reference Range for Smokers: 2.0-8.0% Performed By: #### A LLBG ####[facility]ORATORYCLIA [id number] [place] [address] CO2 (Bld) [Partial pressure] 47 mm Hg High 36-46 [facility] Comment on above: Order Comment: Speci men Type: ARTERIAL BLOOD SPECIMEN Performed By: #### A LLBG ####[facility]ORATORYCLIA [id number] [place] [address] CO2 [Moles/Vol] 26.1 mmol/L Normal 22-28 [facility] Comment on above: Order Comment: Speci men Type: ARTERIAL BLOOD SPECIMEN Performed By: #### A LLBG ####[facility]ORATORYCLIA [id number] [place] [address] CO2 adjusted to patient's actual temperature (Bld) [Partial pressure] 46 mmHg Normal 36-46 [facility] Comment on above: Order Comment: Speci men Type: ARTERIAL BLOOD SPECIMEN Performed By: #### A LLBG ####[facility]ORATORYCLIA [id number] [place] [address] Glucose [Mass/Vol] 209 mg/dL High 60-105 [facility] Comment on above: Order Comment: Speci men Type: ARTERIAL BLOOD SPECIMEN Performed By: #### A LLBG ####[facility]ORATORYCLIA [id number] [place] [address] HCO3 (Bld) [Moles/Vol] 29 mmol/L High 22-26 [facility] Comment on above: Order Comment: Speci men Type: ARTERIAL BLOOD SPECIMEN Performed By: #### A LLBG ####[facility]ORATORYCLIA [id number] [place] [address] Hematocrit (Bld) [Volume fraction] 39.2 % Normal 36.0-46.0 [facility] Comment on above: Order Comment: Speci men Type: ARTERIAL BLOOD SPECIMEN Performed By: #### A LLBG ####[facility]ORATORYCLIA [id number] [place] [address] Hemoglobin (Bld) [Mass/Vol] 12.8 g/dL Normal 11.5-15.5 [facility] Comment on above: Order Comment: Speci men Type: ARTERIAL BLOOD SPECIMEN Performed By: #### A LLBG ####[facility]ORATORYCLIA [id number] [place] [address] Methemoglobin (Bld) [Mass fraction] % Normal 0.0-1.5 [facility] Comment on above: Order Comment: Speci men Type: ARTERIAL BLOOD SPECIMEN Performed By: #### A LLBG ####[facility]ORATORYCLIA [id number] [place] [address] O2 THERAPY Hi-Flow Normal [facility] Comment on above: Order Comment: Speci men Type: ARTERIAL BLOOD SPECIMEN Performed By: #### A LLBG ####[facility]ORATORYCLIA [id number] [place] [address] Oxygen (Bld) [Partial pressure] 121 mm Hg High 85-95 [facility] Comment on above: Order Comment: Speci men Type: ARTERIAL BLOOD SPECIMEN Performed By: #### A LLBG ####[facility]ATORYCLIA [id number] [place] [address] Oxygen adjusted to patient's actual temperature (Bld) [Partial pressure] 118 mmHg High 85-95 [facility] Comment on above: Order Comment: Speci men Type: ARTERIAL BLOOD SPECIMEN Performed By: #### A LLBG ####[facility]ORATORYCLIA [id number] [place] [address] OXYGEN SATURATION, ARTERIAL 98 % Normal 95-98 [facility] Comment on above: Order Comment: Speci men Type: ARTERIAL BLOOD SPECIMEN Performed By: #### A LLBG ####[facility]ORATORYCLIA [id number] [place] [address] Oxyhemoglobin (BldA) [Mass fraction] 97 % Normal 95-98 [facility] Comment on above: Order Comment: Speci men Type: ARTERIAL BLOOD SPECIMEN Performed By: #### A LLBG ####[facility]ATORYCLIA [id number] [place] [address] pH (Bld) 7.41 [pH] Normal 7.35-7.45 [facility] Comment on above: Order Comment: Speci men Type: ARTERIAL BLOOD SPECIMEN Performed By: #### A LLBG ####[facility]ORATORYCLIA [id number] [place] [address] pH adjusted to patient's actual temperature (Bld) 7.42 Normal 7.35-7.45 [facility] Comment on above: Order Comment: Speci men Type: ARTERIAL BLOOD SPECIMEN Performed By: #### A LLBG ####[facility]ATORYCLIA [id number] [place] [address] Potassium [Moles/Vol] 4.1 mmol/L Normal 3.5-5.0 [facility] Comment on above: Order Comment: Speci men Type: ARTERIAL BLOOD SPECIMEN Performed By: #### A LLBG ####[facility]ORATORYCLIA [id number] [place] [address] Sodium [Moles/Vol] 140 mmol/L Normal 136-144 [facility] Comment on above: Order Comment: Speci men Type: ARTERIAL BLOOD SPECIMEN Performed By: #### A LLBG ####[facility]ATORYCLIA [id number] [place] [address] Basic metabolic 2000 panelon 01-03-2021 Anion gap [Moles/Vol] 9 mmol/L Normal 9-18 [facility] Comment on above: Order Comment: Speci men Type: BLOOD SPECIMEN Performed By: #### 1 9123-9, 2777-1, 07590-2 ####[facility]ATORYCLIA [id number] [place] [address] Calcium [Mass/Vol] 8.9 mg/dL Normal 8.5-10.2 [facility] Comment on above: Order Comment: Speci men Type: BLOOD SPECIMEN Performed By: #### 1 9123-9, 2777-, 23534-4 ####[facility]ORATORYCLIA [id number] [place] [address] Chloride [Moles/Vol] 102 mmol/L Normal 97-105 [facility] Comment on above: Order Comment: Speci men Type: BLOOD SPECIMEN Performed By: #### 1 9123-9, 27702-15, 72602-2 ####[facility]ORATORYCLIA [id number] [place] [address] CO2 [Moles/Vol] 30 mmol/L Normal 22-30 [facility] Comment on above: Order Comment: Speci men Type: BLOOD SPECIMEN Performed By: #### 1 9123-9, 27702-15, 47775-3 ####[facility]ORATORYCLIA [id number] [place] [address] Creatinine [Mass/Vol] 0.99 mg/dL High 0.58-0.96 [facility] Comment on above: Order Comment: Speci men Type: BLOOD SPECIMEN Performed By: #### 1 9123-9, 2777, 38928-3 ####[facility]ORATORYCLIA [id number] [place] [address] GFR/1.73 sq M.predicted MDRD (S/P/Bld) [Vol rate/Area] mL/min/{1.73_m2} Normal [facility] Comment on above: Order Comment: Speci [...] actual GFR. Performed By: #### 1 9123-9, 2777-, 73945-9 ####[facility]ORATORYCLIA [id number] [place] [address] Glucose [Mass/Vol] 183 mg/dL High 74-99 [facility] Comment on above: Order Comment: Speci men Type: BLOOD SPECIMEN Result Comment: The [place] [employer] Association (ADA) provides guidance for cutoff [...] Standards of Medical Care in Diabetes 2016, [place] [employer]. Diabetes Care. 2016.39(Suppl 1). Performed By: #### 1 9123-9, 27702-15, 49692-1 ####[facility]ORATORYCLIA [id number] [place] [address] Potassium [Moles/Vol] 4.0 mmol/L Normal 3.7-5.1 [facility] Comment on above: Order Comment: Speci men Type: BLOOD SPECIMEN Performed By: #### 1 9123-9, 27702-15, 97120-6 ####[facility]ORATORYCLIA [id number] [place] [address] Sodium [Moles/Vol] 141 mmol/L Normal 136-144 [facility] Comment on above: Order Comment: Speci men Type: BLOOD SPECIMEN Performed By: #### 1 9123-9, 2777, 33935-7 ####[facility]ATORYCLIA [id number] [place] [address] Urea nitrogen [Mass/Vol] 35 mg/dL High 7-21 [facility] Comment on above: Order Comment: Speci men Type: BLOOD SPECIMEN Performed By: #### 1 9123-9, 2777-1, 17520-4 ####[facility]ORATORYCLIA [id number] [place] [address] CALCIUM IONIZED Bon 01-04-20 Calcium.ionized (BldV) [Mass/Vol] 1.19 mmol/L Normal 1.08-1.30 [facility] Comment on above: Order Comment: Speci men Type: BLOOD SPECIMEN Performed By: #### I CA ####[facility]ORATORYCLIA [id number] [place] [address] Calcium.ionized adjusted to pH 7.4 (Bld) [Moles/Vol] 1.17 mmol/L Normal 1.08-1.30 [facility] Comment on above: Order Comment: Speci men Type: BLOOD SPECIMEN Performed By: #### I CA ####[facility]ORATORYCLIA [id number] [place] [address] CASE MANAGEMon 01-03-2021 CASE MANAGEM Normal [facility] CBC panel Auto (Bld)on 01-03 Erythrocyte distribution width (RBC) [Ratio] 16.1 % High 11.5-15.0 [facility] Comment on above: Order Comment: Speci men Type: BLOOD SPECIMEN Performed By: #### 5 8410-2 ####[facility]ATORYCLIA [id number] [place] [address] Hematocrit (Bld) [Volume fraction] 38.5 % Normal 36.0-46.0 [facility] Comment on above: Order Comment: Speci men Type: BLOOD SPECIMEN Performed By: #### 5 8410-2 ####[facility]ATORYCLIA [id number] [place] [address] Hemoglobin (Bld) [Mass/Vol] 12.3 g/dL Normal 11.5-15.5 [facility] Comment on above: Order Comment: Speci men Type: BLOOD SPECIMEN Performed By: #### 5 8410-2 ####[facility]ORATORYCLIA [id number] [place] [address] MCH (RBC) [Entitic mass] 28.3 pg Normal 26.0-34.0 [facility] Comment on above: Order Comment: Speci men Type: BLOOD SPECIMEN Performed By: #### 5 8410-2 ####[facility]ORATORYCLIA [id number] [place] [address] MCHC (RBC) [Mass/Vol] 31.9 g/dL Normal 30.5-36.0 [facility] Comment on above: Order Comment: Speci men Type: BLOOD SPECIMEN Performed By: #### 5 8410-2 ####[facility]ORATORYCLIA [id number] [place] [address] MCV (RBC) [Entitic vol] 88.7 fL Normal 80.0-100.0 [facility] Comment on above: Order Comment: Speci men Type: BLOOD SPECIMEN Performed By: #### 5 8410-2 ####[facility]ORATORYCLIA [id number] [place] [address] Nucleated RBC (Bld) [#/Vol] 0.02 10*3/uL High <0.01 [facility] Comment on above: Order Comment: Speci men Type: BLOOD SPECIMEN Performed By: #### 5 8410-2 ####[facility]ORATORYCLIA [id number] [place] [address] Platelet mean volume (Bld) [Entitic vol] 10.8 fL Normal 9.0-12.7 [facility] Comment on above: Order Comment: Speci men Type: BLOOD SPECIMEN Performed By: #### 5 8410-2 ####[facility]ORATORYCLIA [id number] [place] [address] Platelets (Bld) [#/Vol] 411 10*3/uL High 150-400 [facility] Comment on above: Order Comment: Speci men Type: BLOOD SPECIMEN Performed By: #### 5 8410-2 ####[facility]ORATORYCLIA [id number] [place] [address] RBC (Bld) [#/Vol] 4.34 10*6/uL Normal 3.90-5.20 [facility] Comment on above: Order Comment: Speci men Type: BLOOD SPECIMEN Performed By: #### 5 8410-2 ####[facility]ORATORYCLIA [id number] [place] [address] WBC (Bld) [#/Vol] 15.47 10*3/uL High 3.70-11.00 [facility] Comment on above: Order Comment: Speci men Type: BLOOD SPECIMEN Performed By: #### 5 8410-2 ####[facility]ORATORYCLIA [id number] [place] [address] CONSULT PROGon 01-03-2021 CONSULT PROG Normal [facility] Magnesium SerPl-mCncon 01-03 Magnesium [Mass/Vol] 2.3 mg/dL Normal 1.7-2.3 [facility] Comment on above: Order Comment: Speci men Type: BLOOD SPECIMEN Performed By: #### 1 9123-9, 2777-1, 06534-7 ####[facility]ORATORYCLIA [id number] [place] [address] NURSING PROGon 01-03-2021 NURSING PROG Normal [facility] Phosphate SerPl-mCncon 01-03 Phosphate [Mass/Vol] 4.3 mg/dL Normal 2.7-4.8 [facility] Comment on above: Order Comment: Speci men Type: BLOOD SPECIMEN Performed By: #### 1 9123-9, 2777-1, 23182-8 ####[facility]ORATORYCLIA [id number] [place] [address] THERAPY NTon 01-03-2021 THERAPY NT Normal [facility] XR CHEST 1V FRONTALon 2020 XR CHEST 1V FRONTAL Normal [facility] XR PELVIS 1V APon 01-03-2021 XR PELVIS 1V AP Normal [facility] ALLIED HEALTHon 01-02-2021 ALLIED HEALTH Normal [facility] ALLIED HEALTH Normal [facility] ALLIED HEALTH Normal [facility] Basic metabolic 2000 panelon 01-02-2021 Anion gap [Moles/Vol] 8 mmol/L Low 9-18 [facility] Comment on above: Order Comment: Speci men Type: BLOOD SPECIMEN Performed By: #### 2 4321-2, 2776-08, ####[facility]ATORYCLIA [id number] [place] [address] Calcium [Mass/Vol] 8.7 mg/dL Normal 8.5-10.2 [facility] Comment on above: Order Comment: Speci men Type: BLOOD SPECIMEN Performed By: #### 2 4321-2, 2776-08, ####[facility]ORATORYCLIA [id number] [place] [address] Chloride [Moles/Vol] 104 mmol/L Normal 97-105 [facility] Comment on above: Order Comment: Speci men Type: BLOOD SPECIMEN Performed By: #### 2 4321-2, 2776-08, ####[facility]ORYCLIA [id number] [place] [address] CO2 [Moles/Vol] 26 mmol/L Normal 22-30 [facility] Comment on above: Order Comment: Speci men Type: BLOOD SPECIMEN Performed By: #### 2 4321-2, 2776-08, ####[facility]ORYCLIA [id number] [place] [address] Creatinine [Mass/Vol] 0.82 mg/dL Normal 0.58-0.96 [facility] Comment on above: Order Comment: Speci men Type: BLOOD SPECIMEN Performed By: #### 2 4321-2, 2776-08, ####[facility]ATORYCLIA [id number] [place] [address] GFR/1.73 sq M.predicted MDRD (S/P/Bld) [Vol rate/Area] mL/min/{1.73_m2} Normal [facility] Comment on above: Order Comment: Speci men Type: BLOOD SPECIMEN Result Comment: >60e GFR (Estimated GFR) Units of measure: mL/min/1.73 meters squaredeGFR is derived from the reexpressed MDRD Study equation using the following parameters: serum creatinine, age, gender and race. The creatinine assay has been calibrated to be traceable to IDIA. An eGFR <60 mL/min/1.73m2 for >3 months is consistent with chronic kidney disease. Refer to KDOQI guidelines for clinical interpretation. In patients with unstable renal function, e.g. those with acute kidney injury, the eGFR may not accurately reflect actual GFR. Performed By: #### 2 4321-2, 2776-08, ####[facility]ORATORYCLIA [id number] [place] [address] Glucose [Mass/Vol] 139 mg/dL High 74-99 [facility] Comment on above: Order Comment: Speci men Type: BLOOD SPECIMEN Result Comment: The [place] Diabetes Association (ADA) provides guidance for cutoff [...] Standards of Medical Care in Diabetes 2016, [place] [employer]. Diabetes Care. 2016.39(Suppl 1). Performed By: #### 2 4321-2, 2776-08, ####[facility]ATORYCLIA [id number] [place] [address] Potassium [Moles/Vol] 4.1 mmol/L Normal 3.7-5.1 [facility] Comment on above: Order Comment: Speci men Type: BLOOD SPECIMEN Performed By: #### 2 4321-2, 2776-08, ####[facility]ORATORYCLIA [id number] [place] [address] Sodium [Moles/Vol] 138 mmol/L Normal 136-144 [facility] Comment on above: Order Comment: Speci men Type: BLOOD SPECIMEN Performed By: #### 2 4321-2, 2777-1, 94031-9 ####[facility]ORATORYCLIA [id number] [place] [address] Urea nitrogen [Mass/Vol] 26 mg/dL High 7- [facility] Comment on above: Order Comment: Speci men Type: BLOOD SPECIMEN Performed By: #### 2 4321-2, 2777-1, 75658-0 ####[facility]ATORYCLIA [id number] [place] [address] CALCIUM IONIZED Bon 01-03-20 Calcium.ionized (BldV) [Mass/Vol] 1.22 mmol/L Normal 1.08-1.30 [facility] Comment on above: Order Comment: Speci men Type: BLOOD SPECIMEN Performed By: #### I CA ####[facility]ATORYCLIA [id number] [place] [address] Calcium.ionized adjusted to pH 7.4 (Bld) [Moles/Vol] 1.22 mmol/L Normal 1.08-1.30 [facility] Comment on above: Order Comment: Speci men Type: BLOOD SPECIMEN Performed By: #### I CA ####[facility]ORATORYCLIA [id number] [place] [address] CASE MANAGEMon 01-02-2021 CASE MANAGEM Normal [facility] CBC panel Auto (Bld)on 01-02 Erythrocyte distribution width (RBC) [Ratio] 16.1 % High 11.5-15.0 [facility] Comment on above: Order Comment: Speci men Type: BLOOD SPECIMEN Performed By: #### 5 8410-2 ####[facility]ATORYCLIA [id number] [place] [address] Hematocrit (Bld) [Volume fraction] 38.7 % Normal 36.0-46.0 [facility] Comment on above: Order Comment: Speci men Type: BLOOD SPECIMEN Performed By: #### 5 8410-2 ####[facility]ATORYCLIA [id number] [place] [address] Hemoglobin (Bld) [Mass/Vol] 12.3 g/dL Normal 11.5-15.5 [facility] Comment on above: Order Comment: Speci men Type: BLOOD SPECIMEN Performed By: #### 5 8410-2 ####[facility]ATORYCLIA [id number] [place] [address] MCH (RBC) [Entitic mass] 28.3 pg Normal 26.0-34.0 [facility] Comment on above: Order Comment: Speci men Type: BLOOD SPECIMEN Performed By: #### 5 8410-2 ####[facility]ORATORYCLIA [id number] [place] [address] MCHC (RBC) [Mass/Vol] 31.8 g/dL Normal 30.5-36.0 [facility] Comment on above: Order Comment: Speci men Type: BLOOD SPECIMEN Performed By: #### 5 8410-2 ####[facility]ATORYCLIA [id number] [place] [address] MCV (RBC) [Entitic vol] 89.2 fL Normal 80.0-100.0 [facility] Comment on above: Order Comment: Speci men Type: BLOOD SPECIMEN Performed By: #### 5 8410-2 ####[facility]ATORYCLIA [id number] [place] [address] Nucleated RBC (Bld) [#/Vol] 0.07 10*3/uL High <0.01 [facility] Comment on above: Order Comment: Speci men Type: BLOOD SPECIMEN Performed By: #### 5 8410-2 ####[facility]ATORYCLIA [id number] [place] [address] Platelet mean volume (Bld) [Entitic vol] 10.7 fL Normal 9.0-12.7 [facility] Comment on above: Order Comment: Speci men Type: BLOOD SPECIMEN Performed By: #### 5 8410-2 ####[facility]ORATORYCLIA [id number] [place] [address] Platelets (Bld) [#/Vol] 362 10*3/uL Normal 150-400 [facility] Comment on above: Order Comment: Speci men Type: BLOOD SPECIMEN Performed By: #### 5 8410-2 ####[facility]ATORYCLIA [id number] [place] [address] RBC (Bld) [#/Vol] 4.34 10*6/uL Normal 3.90-5.20 [facility] Comment on above: Order Comment: Speci men Type: BLOOD SPECIMEN Performed By: #### 5 8410-2 ####[facility]ATORYCLIA [id number] [place] [address] WBC (Bld) [#/Vol] 15.72 10*3/uL High 3.70-11.00 [facility] Comment on above: Order Comment: Speci men Type: BLOOD SPECIMEN Performed By: #### 5 8410-2 ####[facility]ATORYCLIA [id number] [place] [address] CONSULT PROGon 01-02-2021 CONSULT PROG Normal [facility] Magnesium SerPl-ncon 01-02 Magnesium [Mass/Vol] 2.3 mg/dL Normal 1.7-2.3 [facility] Comment on above: Order Comment: Speci men Type: BLOOD SPECIMEN Performed By: #### 2 4321-2, 2777-, ####[facility]ATORYCLIA [id number] [place] [address] NUTRITIONon 01-02-2021 NUTRITION Normal [facility] Phosphate SerPl-mCncon 01-02 Phosphate [Mass/Vol] 3.5 mg/dL Normal 2.7-4.8 [facility] Comment on above: Order Comment: Speci men Type: BLOOD SPECIMEN Performed By: #### 2 4321-2, 2777-1, ####[facility]ORATORYCLIA [id number] [place] [address] XR ABDOMEN 1V SUPINEon 01-02 XR ABDOMEN 1V SUPINE Normal [facility] XR ABDOMEN 1V SUPINE Normal [facility] XR CHEST 1V FRONTALon 2020 XR CHEST 1V FRONTAL Normal [facility] ALLIED HEALTHon 01-01-2021 ALLIED HEALTH Normal [facility] ALLIED HEALTH Normal [facility] Basic metabolic 2000 panelon 01-01-2021 Anion gap [Moles/Vol] 8 mmol/L Low 9-18 [facility] Comment on above: Order Comment: Speci men Type: BLOOD SPECIMEN Performed By: #### 2 4320-2, 1987-12, , 2776-08 ####[facility]ATORYCLIA [id number] [place] [address] Calcium [Mass/Vol] 8.2 mg/dL Low 8.5-10.2 [facility] Comment on above: Order Comment: Speci men Type: BLOOD SPECIMEN Performed By: #### 2 4320-2, 1987-12, , 2776-08 ####[facility]ORATORYCLIA [id number] [place] [address] Chloride [Moles/Vol] 106 mmol/L High 97-105 [facility] Comment on above: Order Comment: Speci men Type: BLOOD SPECIMEN Performed By: #### 2 4320-2, 1987-12, , 2776-08 ####[facility]ORATORYCLIA [id number] [place] [address] CO2 [Moles/Vol] 27 mmol/L Normal 22-30 [facility] Comment on above: Order Comment: Speci men Type: BLOOD SPECIMEN Performed By: #### 2 4320-2, 1987-12, , 2776-08 ####[facility]ATORYCLIA [id number] [place] [address] Creatinine [Mass/Vol] 0.93 mg/dL Normal 0.58-0.96 [facility] Comment on above: Order Comment: Speci men Type: BLOOD SPECIMEN Performed By: #### 2 4320-2, 1987-12, , 2776-08 ####[facility]ORATORYCLIA [id number] [place] [address] GFR/1.73 sq M.predicted MDRD (S/P/Bld) [Vol rate/Area] mL/min/{1.73_m2} Normal [facility] Comment on above: Order Comment: Speci [...] reflect actual GFR. Performed By: #### 2 43208-19, 1987-12, , 2776-08 ####[facility]ORATORYCLIA [id number] [place] [address] Glucose [Mass/Vol] 135 mg/dL High 74-99 [facility] Comment on above: Order Comment: Speci men Type: BLOOD SPECIMEN Result Comment: The [place] Diabetes [employer] (ADA) provides guidance for cutoff [...] Standards of Medical Care in Diabetes 2016, [place] [employer]. Diabetes Care. 2016.39(Suppl 1). Performed By: #### 2 43208-19, 1987-12, , 2776-08 ####[facility]ORATORYCLIA [id number] [place] [address] Potassium [Moles/Vol] 3.9 mmol/L Normal 3.7-5.1 [facility] Comment on above: Order Comment: Speci men Type: BLOOD SPECIMEN Performed By: #### 2 432-2, 1987-12, , 2776-08 ####[facility]ATORYCLIA [id number] [place] [address] Sodium [Moles/Vol] 141 mmol/L Normal 136-144 [facility] Comment on above: Order Comment: Speci men Type: BLOOD SPECIMEN Performed By: #### 2 4321-2, 1987-12, , 2776-08 ####[facility]ORATORYCLIA [id number] [place] [address] Urea nitrogen [Mass/Vol] 41 mg/dL High 7-21 [facility] Comment on above: Order Comment: Speci men Type: BLOOD SPECIMEN Performed By: #### 2 432-2, 1987-12, , 2776-08 ####[facility]ORATORYCLIA [id number] [place] [address] CALCIUM IONIZED Bon 01-02-20 Calcium.ionized (BldV) [Mass/Vol] 1.16 mmol/L Normal 1.08-1.30 [facility] Comment on above: Order Comment: Speci men Type: BLOOD SPECIMEN Performed By: #### I CA ####[facility]ORATORYCLIA [id number] [place] [address] Calcium.ionized adjusted to pH 7.4 (Bld) [Moles/Vol] 1.15 mmol/L Normal 1.08-1.30 [facility] Comment on above: Order Comment: Speci men Type: BLOOD SPECIMEN Performed By: #### I CA ####[facility]ORATORYCLIA [id number] [place] [address] CASE MANAGEMon 01-01-2021 CASE MANAGEM Normal [facility] CBC panel Auto (Bld)on 01-01 Erythrocyte distribution width (RBC) [Ratio] 16.3 % High 11.5-15.0 [facility] Comment on above: Order Comment: Speci men Type: BLOOD SPECIMEN Performed By: #### 5 8410-2 ####[facility]ATORYCLIA [id number] [place] [address] Hematocrit (Bld) [Volume fraction] 36.8 % Normal 36.0-46.0 [facility] Comment on above: Order Comment: Speci men Type: BLOOD SPECIMEN Performed By: #### 5 8410-2 ####[facility]ATORYCLIA [id number] [place] [address] Hemoglobin (Bld) [Mass/Vol] 12.1 g/dL Normal 11.5-15.5 [facility] Comment on above: Order Comment: Speci men Type: BLOOD SPECIMEN Performed By: #### 5 8410-2 ####[facility]ATORYCLIA [id number] [place] [address] MCH (RBC) [Entitic mass] 28.9 pg Normal 26.0-34.0 [facility] Comment on above: Order Comment: Speci men Type: BLOOD SPECIMEN Performed By: #### 5 8410-2 ####[facility]ORATORYCLIA [id number] [place] [address] MCHC (RBC) [Mass/Vol] 32.9 g/dL Normal 30.5-36.0 [facility] Comment on above: Order Comment: Speci men Type: BLOOD SPECIMEN Performed By: #### 5 8410-2 ####[facility]ORATORYCLIA [id number] [place] [address] MCV (RBC) [Entitic vol] 87.8 fL Normal 80.0-100.0 [facility] Comment on above: Order Comment: Speci men Type: BLOOD SPECIMEN Performed By: #### 5 8410-2 ####[facility]ORATORYCLIA [id number] [place] [address] Nucleated RBC (Bld) [#/Vol] 0.18 10*3/uL High <0.01 [facility] Comment on above: Order Comment: Speci men Type: BLOOD SPECIMEN Performed By: #### 5 8410-2 ####[facility]ORATORYCLIA [id number] [place] [address] Platelet mean volume (Bld) [Entitic vol] 11.0 fL Normal 9.0-12.7 [facility] Comment on above: Order Comment: Speci men Type: BLOOD SPECIMEN Performed By: #### 5 8410-2 ####[facility]ATORYCLIA [id number] [place] [address] Platelets (Bld) [#/Vol] 292 10*3/uL Normal 150-400 [facility] Comment on above: Order Comment: Speci men Type: BLOOD SPECIMEN Performed By: #### 5 8410-2 ####[facility]ATORYCLIA [id number] [place] [address] RBC (Bld) [#/Vol] 4.19 10*6/uL Normal 3.90-5.20 [facility] Comment on above: Order Comment: Speci men Type: BLOOD SPECIMEN Performed By: #### 5 8410-2 ####[facility]ORATORYCLIA [id number] [place] [address] WBC (Bld) [#/Vol] 16.03 10*3/uL High 3.70-11.00 [facility] Comment on above: Order Comment: Speci men Type: BLOOD SPECIMEN Performed By: #### 5 8410-2 ####[facility]ORATORYCLIA [id number] [place] [address] CONSULT PROGon 01-01-2021 CONSULT PROG Normal [facility] CRP SerPl-ncon 01-01-2021 CRP [Mass/Vol] 20.0 mg/dL High <0.9 [facility] Comment on above: Order Comment: Speci men Type: BLOOD SPECIMEN Performed By: #### 2 4321-2, 1987-12, , 2776-08 ####[facility]ORATORYCLIA [id number] [place] [address] Magnesium SerPl-mCncon 01-01 Magnesium [Mass/Vol] 2.1 mg/dL Normal 1.7-2.3 [facility] Comment on above: Order Comment: Speci men Type: BLOOD SPECIMEN Performed By: #### 2 4321-2, 1987-12, , 2776-08 ####[facility]ORATORYCLIA [id number] [place] [address] NURSING PROGon 01-01-2021 NURSING PROG Normal [facility] PROCALCITONIN (LAB)on 2020 Procalcitonin [Mass/Vol] 33.46 ng/mL High <0.09 [facility] Comment on above: Order Comment: Speci men Type: BLOOD SPECIMEN Result Comment: For a guided interpretation of test results, please visit the [facility] in Procalcitonin Calculator, [email or web address]. Performed By: #### P ROCAL ####[facility]ORATORYCLIA [id number] [place] [address] Phosphate SerPl-mCncon 01-01 Phosphate [Mass/Vol] 3.5 mg/dL Normal 2.7-4.8 [facility] Comment on above: Order Comment: Speci men Type: BLOOD SPECIMEN Performed By: #### 2 4321-2, 1987-12, , 2776-08 ####[facility]ORATORYCLIA [id number] [place] [address] Prealbumin [Mass/Vol]on 12-16 Prealbumin Nephelometry [Mass/Vol] 13 mg/dL Low - [facility] Comment on above: Order Comment: Speci men Type: BLOOD SPECIMEN Performed By: #### 1 4338-8 ####[facility]ORATORYCLIA [id number] [place] [address] THERAPY NTon 01-01-2021 THERAPY NT Normal [facility] XR ABDOMEN 1V SUPINEon 01-01 XR ABDOMEN 1V SUPINE Normal [facility] XR CHEST 1V FRONTALon 2020 XR CHEST 1V FRONTAL Normal [facility] ALLIED HEALTHon 12-31-2020 ALLIED HEALTH Normal [facility] Basic metabolic 2000 panelon 12-31-2020 Anion gap [Moles/Vol] 8 mmol/L Low 9-18 [facility] Comment on above: Order Comment: Speci men Type: BLOOD SPECIMEN Performed By: #### 1 9123-9, 12809-6, 2776- ####[facility]ATORYCLIA [id number] [place] [address] Calcium [Mass/Vol] 8.1 mg/dL Low 8.5-10.2 [facility] Comment on above: Order Comment: Speci men Type: BLOOD SPECIMEN Performed By: #### 1 9123-9, 47730-4, 2776- ####[facility]ATORYCLIA [id number] [place] [address] Chloride [Moles/Vol] 105 mmol/L Normal 97-105 [facility] Comment on above: Order Comment: Speci men Type: BLOOD SPECIMEN Performed By: #### 1 9122-9, 12460-9, 2776-08 ####[facility]ORATORYCLIA [id number] [place] [address] CO2 [Moles/Vol] 29 mmol/L Normal 22-30 [facility] Comment on above: Order Comment: Speci men Type: BLOOD SPECIMEN Performed By: #### 1 23-9, 17916-1, 2776-08 ####[facility]ATORYCLIA [id number] [place] [address] Creatinine [Mass/Vol] 1.01 mg/dL High 0.58-0.96 [facility] Comment on above: Order Comment: Speci men Type: BLOOD SPECIMEN Performed By: #### 1 9123-9, 55425-2, 2776-08 ####[facility]ATORYCLIA [id number] [place] [address] GFR/1.73 sq M.predicted MDRD (S/P/Bld) [Vol rate/Area] mL/min/{1.73_m2} Normal [facility] Comment on above: Order Comment: Speci men Type: BLOOD SPECIMEN Result Comment: 55eG FR [...] actual GFR. Performed By: #### 1 9123-9, 12371-4, 2776-08 ####[facility]ATORYCLIA [id number] [place] [address] Glucose [Mass/Vol] 131 mg/dL High 74-99 [facility] Comment on above: Order Comment: Speci men Type: BLOOD SPECIMEN Result Comment: The [place] [employer] Association (ADA) provides guidance for cutoff [...] Standards of Medical Care in Diabetes 2016, [place] [employer]. Diabetes Care. 2016.39(Suppl 1). Performed By: #### 1 9, , 2776-08 ####[facility]ATORYCLIA [id number] [place] [address] Potassium [Moles/Vol] 4.0 mmol/L Normal 3.7-5.1 [facility] Comment on above: Order Comment: Speci men Type: BLOOD SPECIMEN Performed By: #### 1 91-9, 94487-1, 2776-08 ####[facility]ORATORYCLIA [id number] [place] [address] Sodium [Moles/Vol] 142 mmol/L Normal 136-144 [facility] Comment on above: Order Comment: Speci men Type: BLOOD SPECIMEN Performed By: #### 1 9123-9, 55296-1, 2776-08 ####[facility]ATORYCLIA [id number] [place] [address] Urea nitrogen [Mass/Vol] 35 mg/dL High 7-21 [facility] Comment on above: Order Comment: Speci men Type: BLOOD SPECIMEN Performed By: #### 1 9123-9, 78455-7, 2777-1 ####[facility]ATORYCLIA [id number] [place] [address] CALCIUM IONIZED Bon 01-01-20 Calcium.ionized (BldV) [Mass/Vol] 1.12 mmol/L Normal 1.08-1.30 [facility] Comment on above: Order Comment: Speci men Type: BLOOD SPECIMEN Performed By: #### I CA ####[facility]ATORYCLIA [id number] [place] [address] Calcium.ionized adjusted to pH 7.4 (Bld) [Moles/Vol] 1.11 mmol/L Normal 1.08-1.30 [facility] Comment on above: Order Comment: Speci men Type: BLOOD SPECIMEN Performed By: #### I CA ####[facility]ATORYCLIA [id number] [place] [address] CBC panel Auto (Bld)on 12-31 Erythrocyte distribution width (RBC) [Ratio] 16.0 % High 11.5-15.0 [facility] Comment on above: Order Comment: Speci men Type: BLOOD SPECIMEN Performed By: #### 5 8410-2 ####[facility]ORYCLIA [id number] [place] [address] Hematocrit (Bld) [Volume fraction] 36.9 % Normal 36.0-46.0 [facility] Comment on above: Order Comment: Speci men Type: BLOOD SPECIMEN Performed By: #### 5 8410-2 ####[facility]ATORYCLIA [id number] [place] [address] Hemoglobin (Bld) [Mass/Vol] 11.8 g/dL Normal 11.5-15.5 [facility] Comment on above: Order Comment: Speci men Type: BLOOD SPECIMEN Performed By: #### 5 8410-2 ####[facility]ATORYCLIA [id number] [place] [address] MCH (RBC) [Entitic mass] 28.4 pg Normal 26.0-34.0 [facility] Comment on above: Order Comment: Speci men Type: BLOOD SPECIMEN Performed By: #### 5 8410-2 ####[facility]ATORYCLIA [id number] [place] [address] MCHC (RBC) [Mass/Vol] 32.0 g/dL Normal 30.5-36.0 [facility] Comment on above: Order Comment: Speci men Type: BLOOD SPECIMEN Performed By: #### 5 8410-2 ####[facility]ATORYCLIA [id number] [place] [address] MCV (RBC) [Entitic vol] 88.7 fL Normal 80.0-100.0 [facility] Comment on above: Order Comment: Speci men Type: BLOOD SPECIMEN Performed By: #### 5 8410-2 ####[facility]ATORYCLIA [id number] [place] [address] Nucleated RBC (Bld) [#/Vol] 0.24 10*3/uL High <0.01 [facility] Comment on above: Order Comment: Speci men Type: BLOOD SPECIMEN Performed By: #### 5 8410-2 ####[facility]ATORYCLIA [id number] [place] [address] Platelet mean volume (Bld) [Entitic vol] 10.6 fL Normal 9.0-12.7 [facility] Comment on above: Order Comment: Speci men Type: BLOOD SPECIMEN Performed By: #### 5 8410-2 ####[facility]ATORYCLIA [id number] [place] [address] Platelets (Bld) [#/Vol] 268 10*3/uL Normal 150-400 [facility] Comment on above: Order Comment: Speci men Type: BLOOD SPECIMEN Performed By: #### 5 8410-2 ####[facility]ATORYCLIA [id number] [place] [address] RBC (Bld) [#/Vol] 4.16 10*6/uL Normal 3.90-5.20 [facility] Comment on above: Order Comment: Speci men Type: BLOOD SPECIMEN Performed By: #### 5 8410-2 ####[facility]ATORYCLIA [id number] [place] [address] WBC (Bld) [#/Vol] 11.34 10*3/uL High 3.70-11.00 [facility] Comment on above: Order Comment: Speci men Type: BLOOD SPECIMEN Performed By: #### 5 8410-2 ####[facility]ATORYCLIA [id number] [place] [address] CONSULT PROGon 12-31-2020 CONSULT PROG Normal [facility] Magnesium SerPl-mCncon 12-31 Magnesium [Mass/Vol] 2.1 mg/dL Normal 1.7-2.3 [facility] Comment on above: Order Comment: Speci men Type: BLOOD SPECIMEN Performed By: #### 1 9123-9, 40897-5, 2777-1 ####[facility]ATORYCLIA [id number] [place] [address] NURSING PROGon 12-31-2020 NURSING PROG Normal [facility] Phosphate SerPl-mCncon 12-31 Phosphate [Mass/Vol] 5.0 mg/dL High 2.7-4.8 [facility] Comment on above: Order Comment: Speci men Type: BLOOD SPECIMEN Performed By: #### 1 9123-9, 74385-9, 2777-1 ####[facility]ATORYCLIA [id number] [place] [address] XR CHEST 1V FRONTALon 2020 XR CHEST 1V FRONTAL Normal [facility] ALLIED HEALTHon 12-30-2020 ALLIED HEALTH Normal [facility] ALLIED HEALTH Normal [facility] Basic metabolic 2000 panelon 12-30-2020 Anion gap [Moles/Vol] 9 mmol/L Normal 9-18 [facility] Comment on above: Order Comment: Speci men Type: BLOOD SPECIMEN Performed By: #### 2 777-1, 33978-8, ####[facility]ATORYCLIA [id number] [place] [address] Calcium [Mass/Vol] 7.8 mg/dL Low 8.5-10.2 [facility] Comment on above: Order Comment: Speci men Type: BLOOD SPECIMEN Performed By: #### 2 777-1, 92927-7, ####[facility]ATORYCLIA [id number] [place] [address] Chloride [Moles/Vol] 107 mmol/L High 97-105 [facility] Comment on above: Order Comment: Speci men Type: BLOOD SPECIMEN Performed By: #### 2 777-1, 72948-8, ####[facility]ORYCLIA [id number] [place] [address] CO2 [Moles/Vol] 28 mmol/L Normal 22-30 [facility] Comment on above: Order Comment: Speci men Type: BLOOD SPECIMEN Performed By: #### 2 777-1, 69825-2, ####[facility]ATORYCLIA [id number] [place] [address] Creatinine [Mass/Vol] 1.01 mg/dL High 0.58-0.96 [facility] Comment on above: Order Comment: Speci men Type: BLOOD SPECIMEN Performed By: #### 2 777-1, , ####[facility]ORATORYCLIA [id number] [place] [address] GFR/1.73 sq M.predicted MDRD (S/P/Bld) [Vol rate/Area] mL/min/{1.73_m2} Normal [facility] Comment on above: Order Comment: Speci men Type: BLOOD SPECIMEN Result Comment: 55eG FR [...] actual GFR. Performed By: #### 2 777-1, , ####[facility] LABORATORYCLIA [id number] [place] [address] Glucose [Mass/Vol] 126 mg/dL High 74-99 [place] [facility] Comment on above: Order Comment: Speci men Type: BLOOD SPECIMEN Result Comment: The [place] [employer] (ADA) provides guidance for cutoff [...] Standards of Medical Care in Diabetes 2016, [place] [employer]. Diabetes Care. 2016.39(Suppl 1). Performed By: #### 2 777-1, , ####[facility]ATORYCLIA [id number] [place] [address] Potassium [Moles/Vol] 3.6 mmol/L Low 3.7-5.1 [facility] Comment on above: Order Comment: Speci men Type: BLOOD SPECIMEN Performed By: #### 2 777-1, , ####[facility]ORATORYCLIA [id number] [place] [address] Sodium [Moles/Vol] 144 mmol/L Normal 136-144 [facility] Comment on above: Order Comment: Speci men Type: BLOOD SPECIMEN Performed By: #### 2 777-1, , ####[facility]ORATORYCLIA [id number] [place] [address] Urea nitrogen [Mass/Vol] 27 mg/dL High 7-21 [facility] Comment on above: Order Comment: Speci men Type: BLOOD SPECIMEN Performed By: #### 2 777-1, 46663-8, ####[facility]ATORYCLIA [id number] [place] [address] CALCIUM IONIZED Bon 12-31-19 Calcium.ionized (BldV) [Mass/Vol] 1.11 mmol/L Normal 1.08-1.30 [facility] Comment on above: Order Comment: Speci men Type: BLOOD SPECIMEN Performed By: #### I CA ####[facility]ATORYCLIA [id number] [place] [address] Calcium.ionized adjusted to pH 7.4 (Bld) [Moles/Vol] 1.10 mmol/L Normal 1.08-1.30 [facility] Comment on above: Order Comment: Speci men Type: BLOOD SPECIMEN Performed By: #### I CA ####[facility]ORATORYCLIA [id number] [place] [address] CBC panel Auto (Bld)on 12-30 Erythrocyte distribution width (RBC) [Ratio] 16.1 % High 11.5-15.0 [facility] Comment on above: Order Comment: Speci men Type: BLOOD SPECIMEN Performed By: #### 5 8410-2 ####[facility]ATORYCLIA [id number] [place] [address] Hematocrit (Bld) [Volume fraction] 33.4 % Low 36.0-46.0 [facility] Comment on above: Order Comment: Speci men Type: BLOOD SPECIMEN Performed By: #### 5 8410-2 ####[facility]ATORYCLIA [id number] [place] [address] Hemoglobin (Bld) [Mass/Vol] 10.9 g/dL Low 11.5-15.5 [facility] Comment on above: Order Comment: Speci men Type: BLOOD SPECIMEN Performed By: #### 5 8410-2 ####[facility]ORATORYCLIA [id number] [place] [address] MCH (RBC) [Entitic mass] 28.6 pg Normal 26.0-34.0 [facility] Comment on above: Order Comment: Speci men Type: BLOOD SPECIMEN Performed By: #### 5 8410-2 ####[facility]ORATORYCLIA [id number] [place] [address] MCHC (RBC) [Mass/Vol] 32.6 g/dL Normal 30.5-36.0 [facility] Comment on above: Order Comment: Speci men Type: BLOOD SPECIMEN Performed By: #### 5 8410-2 ####[facility]ATORYCLIA [id number] [place] [address] MCV (RBC) [Entitic vol] 87.7 fL Normal 80.0-100.0 [facility] Comment on above: Order Comment: Speci men Type: BLOOD SPECIMEN Performed By: #### 5 8410-2 ####[facility]ATORYCLIA [id number] [place] [address] Nucleated RBC (Bld) [#/Vol] 0.20 10*3/uL High <0.01 [facility] Comment on above: Order Comment: Speci men Type: BLOOD SPECIMEN Performed By: #### 5 8410-2 ####[facility]ORATORYCLIA [id number] [place] [address] Platelet mean volume (Bld) [Entitic vol] 10.5 fL Normal 9.0-12.7 [facility] Comment on above: Order Comment: Speci men Type: BLOOD SPECIMEN Performed By: #### 5 8410-2 ####[facility]ORATORYCLIA [id number] [place] [address] Platelets (Bld) [#/Vol] 228 10*3/uL Normal 150-400 [facility] Comment on above: Order Comment: Speci men Type: BLOOD SPECIMEN Performed By: #### 5 8410-2 ####[facility]ATORYCLIA [id number] [place] [address] RBC (Bld) [#/Vol] 3.81 10*6/uL Low 3.90-5.20 [facility] Comment on above: Order Comment: Speci men Type: BLOOD SPECIMEN Performed By: #### 5 8410-2 ####[facility]ORATORYCLIA [id number] [place] [address] WBC (Bld) [#/Vol] 6.13 10*3/uL Normal 3.70-11.00 [facility] Comment on above: Order Comment: Speci men Type: BLOOD SPECIMEN Performed By: #### 5 8410-2 ####[facility]ORATORYCLIA [id number] [place] [address] CONSULT PROGon 12-30-2020 CONSULT PROG Normal [facility] Magnesium SerPl-ncon 12-30 Magnesium [Mass/Vol] 2.2 mg/dL Normal 1.7-2.3 [facility] Comment on above: Order Comment: Speci men Type: BLOOD SPECIMEN Performed By: #### 2 777-1, 99038-0, 14147-1 ####[facility]ORATORYCLIA [id number] [place] [address] NURSING PROGon 12-30-2020 NURSING PROG Normal [facility] Phosphate SerPl-ncon 12-30 Phosphate [Mass/Vol] 4.5 mg/dL Normal 2.7-4.8 [facility] Comment on above: Order Comment: Speci men Type: BLOOD SPECIMEN Performed By: #### 2 777-1, 95952-6, 59019-8 ####[facility]ORATORYCLIA [id number] [place] [address] THERAPY NTon 12-30-2020 THERAPY NT Normal [facility] XR ABDOMEN 1V SUPINEon 12-30 XR ABDOMEN 1V SUPINE Normal [facility] XR CHEST 1V FRONTALon 2020 XR CHEST 1V FRONTAL Normal [facility] ALLIED HEALTHon 12-29-2020 ALLIED HEALTH Normal [facility] ALLIED HEALTH Normal [facility] ARTERIAL BLOOD GASESon 12-29 Base excess Calc (Bld) [Moles/Vol] 0 mmol/L Normal 0-2 [facility] Comment on above: Order Comment: Speci men Type: ARTERIAL BLOOD SPECIMEN Performed By: #### A LLBG ####[facility]ORATORYCLIA [id number] [place] [address] Body temperature 100.04 [degF] Normal [facility] Comment on above: Order Comment: Speci men Type: ARTERIAL BLOOD SPECIMEN Performed By: #### A LLBG ####[facility]ORATORYCLIA [id number] [place] [address] CALCIUM IONIZED, PH CORRECTED 1.20 mmol/L Normal 1.08-1.30 [facility] Comment on above: Order Comment: Speci men Type: ARTERIAL BLOOD SPECIMEN Performed By: #### A LLBG ####[facility]ORATORYCLIA [id number] [place] [address] Calcium.ionized (BldV) [Mass/Vol] 1.19 mmol/L Normal 1.08-1.30 [facility] Comment on above: Order Comment: Speci men Type: ARTERIAL BLOOD SPECIMEN Performed By: #### A LLBG ####[facility]ORATORYCLIA [id number] [place] [address] Carboxyhemoglobin (BldA) [Mass fraction] 1.8 % Normal 0.0-2.0 [facility] Comment on above: Order Comment: Speci men Type: ARTERIAL BLOOD SPECIMEN Result Comment: Carb oxyhemoglobin Reference Range for Smokers: 2.0-8.0% Performed By: #### A LLBG ####[facility]ATORYCLIA [id number] [place] [address] CO2 (Bld) [Partial pressure] 38 mm Hg Normal 36-46 [facility] Comment on above: Order Comment: Speci men Type: ARTERIAL BLOOD SPECIMEN Performed By: #### A LLBG ####[facility]ATORYCLIA [id number] [place] [address] CO2 [Moles/Vol] 21.7 mmol/L Low 22-28 [facility] Comment on above: Order Comment: Speci men Type: ARTERIAL BLOOD SPECIMEN Performed By: #### A LLBG ####[facility]ORATORYCLIA [id number] [place] [address] CO2 adjusted to patient's actual temperature (Bld) [Partial pressure] 40 mmHg Normal 36-46 [facility] Comment on above: Order Comment: Speci men Type: ARTERIAL BLOOD SPECIMEN Performed By: #### A LLBG ####[facility]ATORYCLIA [id number] [place] [address] Glucose [Mass/Vol] 115 mg/dL High 60-105 [facility] Comment on above: Order Comment: Speci men Type: ARTERIAL BLOOD SPECIMEN Performed By: #### A LLBG ####[facility]ORYCLIA [id number] [place] [address] HCO3 (Bld) [Moles/Vol] 24 mmol/L Normal 22-26 [facility] Comment on above: Order Comment: Speci men Type: ARTERIAL BLOOD SPECIMEN Performed By: #### A LLBG ####[facility]ORYCLIA [id number] [place] [address] Hematocrit (Bld) [Volume fraction] 36.1 % Normal 36.0-46.0 [facility] Comment on above: Order Comment: Speci men Type: ARTERIAL BLOOD SPECIMEN Performed By: #### A LLBG ####[facility]ORYCLIA [id number] [place] [address] Hemoglobin (Bld) [Mass/Vol] 11.7 g/dL Normal 11.5-15.5 [facility] Comment on above: Order Comment: Speci men Type: ARTERIAL BLOOD SPECIMEN Performed By: #### A LLBG ####[facility]ORYCLIA [id number] [place] [address] Methemoglobin (Bld) [Mass fraction] % Normal 0.0-1.5 [facility] Comment on above: Order Comment: Speci men Type: ARTERIAL BLOOD SPECIMEN Performed By: #### A LLBG ####[facility]ATORYCLIA [id number] [place] [address] O2 THERAPY NC = Nasal Cannula Normal [facility] Comment on above: Order Comment: Speci men Type: ARTERIAL BLOOD SPECIMEN Performed By: #### A LLBG ####[facility]ORATORYCLIA [id number] [place] [address] Oxygen (Bld) [Partial pressure] 67 mm Hg Low 85-95 [facility] Comment on above: Order Comment: Speci men Type: ARTERIAL BLOOD SPECIMEN Performed By: #### A LLBG ####[facility]ATORYCLIA [id number] [place] [address] Oxygen adjusted to patient's actual temperature (Bld) [Partial pressure] 70.0 mmHg Low 85-95 [facility] Comment on above: Order Comment: Speci men Type: ARTERIAL BLOOD SPECIMEN Performed By: #### A LLBG ####[facility]ORYCLIA [id number] [place] [address] OXYGEN SATURATION, ARTERIAL 94 % Low 95-98 [facility] Comment on above: Order Comment: Speci men Type: ARTERIAL BLOOD SPECIMEN Performed By: #### A LLBG ####[facility]ATORYCLIA [id number] [place] [address] Oxyhemoglobin (BldA) [Mass fraction] 92 % Low 95-98 [facility] Comment on above: Order Comment: Speci men Type: ARTERIAL BLOOD SPECIMEN Performed By: #### A LLBG ####[facility]ATORYCLIA [id number] [place] [address] pH (Bld) 7.41 [pH] Normal 7.35-7.45 [facility] Comment on above: Order Comment: Speci men Type: ARTERIAL BLOOD SPECIMEN Performed By: #### A LLBG ####[facility]ATORYCLIA [id number] [place] [address] pH adjusted to patient's actual temperature (Bld) 7.40 Normal 7.35-7.45 [facility] Comment on above: Order Comment: Speci men Type: ARTERIAL BLOOD SPECIMEN Performed By: #### A LLBG ####[facility]ORYCLIA [id number] [place] [address] Potassium [Moles/Vol] 4.0 mmol/L Normal 3.5-5.0 [facility] Comment on above: Order Comment: Speci men Type: ARTERIAL BLOOD SPECIMEN Performed By: #### A LLBG ####[facility]ORYCLIA [id number] [place] [address] Sodium [Moles/Vol] 146 mmol/L High 136-144 [facility] Comment on above: Order Comment: Speci men Type: ARTERIAL BLOOD SPECIMEN Performed By: #### A LLBG ####[facility]ORYCLIA [id number] [place] [address] Bacteria Bld Culton 12-30-19 Bacteria identified Cx Nom (Bld) CULTURE, BLOOD: No growth 5 days Normal [facility] Comment on above: Performed By: #### 6 00-7 ####[facility]ORYCLIA [id number] [place] [address] Bacteria identified Cx Nom (Bld) CULTURE, BLOOD: No growth 5 days Normal [facility] Comment on above: Performed By: #### 6 00-7 ####[facility]ORYCLIA [id number] [place] [address] Basic metabolic 2000 panelon 12-29-2020 Anion gap [Moles/Vol] 7 mmol/L Low 9-18 [facility] Comment on above: Order Comment: Speci men Type: BLOOD SPECIMEN Performed By: #### 2 777-1, , ####[facility]ORYCLIA [id number] [place] [address] Calcium [Mass/Vol] 7.7 mg/dL Low 8.5-10.2 [facility] Comment on above: Order Comment: Speci men Type: BLOOD SPECIMEN Performed By: #### 2 777-1, 12541-4, ####[facility]ORYCLIA [id number] [place] [address] Chloride [Moles/Vol] 113 mmol/L High 97-105 [facility] Comment on above: Order Comment: Speci men Type: BLOOD SPECIMEN Performed By: #### 2 777-1, , ####[facility]ORATORYCLIA [id number] [place] [address] CO2 [Moles/Vol] 24 mmol/L Normal 22-30 [facility] Comment on above: Order Comment: Speci men Type: BLOOD SPECIMEN Performed By: #### 2 777-1, , ####[facility]ATORYCLIA [id number] [place] [address] Creatinine [Mass/Vol] 0.84 mg/dL Normal 0.58-0.96 [facility] Comment on above: Order Comment: Speci men Type: BLOOD SPECIMEN Performed By: #### 2 777-1, , ####[facility]ORATORYCLIA [id number] [place] [address] GFR/1.73 sq M.predicted MDRD (S/P/Bld) [Vol rate/Area] mL/min/{1.73_m2} Normal [facility] Comment on above: Order Comment: Speci men Type: BLOOD SPECIMEN Result Comment: >60e GFR (Estimated GFR) Units of measure: mL/min/1.73 meters squaredeGFR is derived from the reexpressed MDRD Study equation using the following parameters: serum creatinine, age, gender and race. The creatinine assay has been calibrated to be traceable to [email or web address]. An eGFR <60 mL/min/1.73m2 for >3 months is consistent with chronic kidney disease. Refer to KDOQI guidelines for clinical interpretation. In patients with unstable renal function, e.g. those with acute kidney injury, the eGFR may not accurately reflect actual GFR. Performed By: #### 2 777-1, , ####[facility]ORATORYCLIA [id number] [place] [address] Glucose [Mass/Vol] 117 mg/dL High 74-99 [facility] Comment on above: Order Comment: Speci men Type: BLOOD SPECIMEN Result Comment: The [place] [employer] (ADA) provides guidance for cutoff [...] Standards of Medical Care in Diabetes 2016, [place] [employer]. Diabetes Care. 2016.39(Suppl 1). Performed By: #### 2 777-1, , ####[facility]ORATORYCLIA [id number] [place] [address] Potassium [Moles/Vol] 4.3 mmol/L Normal 3.7-5.1 [facility] Comment on above: Order Comment: Speci men Type: BLOOD SPECIMEN Performed By: #### 2 777-1, , ####[facility]ORATORYCLIA [id number] [place] [address] Sodium [Moles/Vol] 144 mmol/L Normal 136-144 [facility] Comment on above: Order Comment: Speci men Type: BLOOD SPECIMEN Performed By: #### 2 777-1, , ####[facility]ORATORYCLIA [id number] [place] [address] Urea nitrogen [Mass/Vol] 22 mg/dL High 7-21 [facility] Comment on above: Order Comment: Speci men Type: BLOOD SPECIMEN Performed By: #### 2 777-1, , ####[facility]ATORYCLIA [id number] [place] [address] CALCIUM IONIZED Bon 12-30-19 21 Calcium.ionized (BldV) [Mass/Vol] 1.12 mmol/L Normal 1.08-1.30 [facility] Comment on above: Order Comment: Speci men Type: BLOOD SPECIMEN Performed By: #### I CA ####[facility]ORATORYCLIA [id number] [place] [address] Calcium.ionized adjusted to pH 7.4 (Bld) [Moles/Vol] 1.11 mmol/L Normal 1.08-1.30 [facility] Comment on above: Order Comment: Speci men Type: BLOOD SPECIMEN Performed By: #### I CA ####[facility]ORATORYCLIA [id number] [place] [address] CASE MANAGEMon 12-29-2020 CASE MANAGEM Normal [facility] CBC panel Auto (Bld)on 12-29 Erythrocyte distribution width (RBC) [Ratio] 16.9 % High 11.5-15.0 [facility] Comment on above: Order Comment: Speci men Type: BLOOD SPECIMEN Performed By: #### 5 8410-2 ####[facility]ATORYCLIA [id number] [place] [address] Hematocrit (Bld) [Volume fraction] 35.5 % Low 36.0-46.0 [facility] Comment on above: Order Comment: Speci men Type: BLOOD SPECIMEN Performed By: #### 5 8410-2 ####[facility]ATORYCLIA [id number] [place] [address] Hemoglobin (Bld) [Mass/Vol] 11.5 g/dL Normal 11.5-15.5 [facility] Comment on above: Order Comment: Speci men Type: BLOOD SPECIMEN Performed By: #### 5 8410-2 ####[facility]ORATORYCLIA [id number] [place] [address] MCH (RBC) [Entitic mass] 28.6 pg Normal 26.0-34.0 [facility] Comment on above: Order Comment: Speci men Type: BLOOD SPECIMEN Performed By: #### 5 8410-2 ####[facility]ATORYCLIA [id number] [place] [address] MCHC (RBC) [Mass/Vol] 32.4 g/dL Normal 30.5-36.0 [facility] Comment on above: Order Comment: Speci men Type: BLOOD SPECIMEN Performed By: #### 5 8410-2 ####[facility]ORATORYCLIA [id number] [place] [address] MCV (RBC) [Entitic vol] 88.3 fL Normal 80.0-100.0 [facility] Comment on above: Order Comment: Speci men Type: BLOOD SPECIMEN Performed By: #### 5 8410-2 ####[facility]ATORYCLIA [id number] [place] [address] Nucleated RBC (Bld) [#/Vol] 0.07 10*3/uL High <0.01 [facility] Comment on above: Order Comment: Speci men Type: BLOOD SPECIMEN Performed By: #### 5 8410-2 ####[facility]ATORYCLIA [id number] [place] [address] Platelet mean volume (Bld) [Entitic vol] 10.8 fL Normal 9.0-12.7 [facility] Comment on above: Order Comment: Speci men Type: BLOOD SPECIMEN Performed By: #### 5 8410-2 ####[facility]ATORYCLIA [id number] [place] [address] Platelets (Bld) [#/Vol] 225 10*3/uL Normal 150-400 [facility] Comment on above: Order Comment: Speci men Type: BLOOD SPECIMEN Performed By: #### 5 8410-2 ####[facility]ATORYCLIA [id number] [place] [address] RBC (Bld) [#/Vol] 4.02 10*6/uL Normal 3.90-5.20 [facility] Comment on above: Order Comment: Speci men Type: BLOOD SPECIMEN Performed By: #### 5 8410-2 ####[facility]ATORYCLIA [id number] [place] [address] WBC (Bld) [#/Vol] 4.58 10*3/uL Normal 3.70-11.00 [facility] Comment on above: Order Comment: Speci men Type: BLOOD SPECIMEN Performed By: #### 5 8410-2 ####[facility]ORATORYCLIA [id number] [place] [address] CONSULT PROGon 12-29-2020 CONSULT PROG Normal [facility] Gas and Carbon monoxide pane l (BldV)on 12-29-2020 Base excess Calc (BldV) [Moles/Vol] 0.0 mmol/L Normal 0-2 [facility] Comment on above: Order Comment: Speci men Type: VENOUS BLOOD SPECIMEN Performed By: #### 2 4344-4 ####[facility]ORATORYCLIA [id number] [place] [address] Body temperature 100.4 [degF] Normal [facility] Comment on above: Order Comment: Speci men Type: VENOUS BLOOD SPECIMEN Performed By: #### 2 4344-4 ####[facility]ATORYCLIA [id number] [place] [address] CALCIUM IONIZED, PH CORRECTED 1.14 mmol/L Normal 1.08-1.30 [facility] Comment on above: Order Comment: Speci men Type: VENOUS BLOOD SPECIMEN Performed By: #### 2 4344-4 ####[facility]ATORYCLIA [id number] [place] [address] Calcium.ionized (BldV) [Mass/Vol] 1.17 mmol/L Normal 1.08-1.30 [facility] Comment on above: Order Comment: Speci men Type: VENOUS BLOOD SPECIMEN Performed By: #### 2 4344-4 ####[facility]ATORYCLIA [id number] [place] [address] Carboxyhemoglobin (BldV) [Mass fraction] 1.6 % Normal 0.0-2.0 [facility] Comment on above: Order Comment: Speci men Type: VENOUS BLOOD SPECIMEN Result Comment: Carb oxyhemoglobin Reference Range for Smokers: 2.0-8.0% Performed By: #### 2 4344-4 ####[facility]ATORYCLIA [id number] [place] [address] CO2 (BldV) [Partial pressure] 45 mm[Hg] Normal 42-55 [facility] Comment on above: Order Comment: Speci men Type: VENOUS BLOOD SPECIMEN Performed By: #### 2 4344-4 ####[facility]ORYCLIA [id number] [place] [address] CO2 [Moles/Vol] 22.9 mmol/L Low 25-29 [facility] Comment on above: Order Comment: Speci men Type: VENOUS BLOOD SPECIMEN Performed By: #### 2 4344-4 ####[facility]ORYCLIA [id number] [place] [address] CO2 adjusted to patient's actual temperature (BldV) [Partial pressure] 47 mmHg Normal 42-55 [facility] Comment on above: Order Comment: Speci men Type: VENOUS BLOOD SPECIMEN Performed By: #### 2 4344-4 ####[facility]ATORYCLIA [id number] [place] [address] Glucose [Mass/Vol] 150 mg/dL High 60-105 [facility] Comment on above: Order Comment: Speci men Type: VENOUS BLOOD SPECIMEN Performed By: #### 2 4344-4 ####[facility]ORYCLIA [id number] [place] [address] HCO3 (Bld) [Moles/Vol] 25.1 mmol/L Normal 24-28 [facility] Comment on above: Order Comment: Speci men Type: VENOUS BLOOD SPECIMEN Performed By: #### 2 4344-4 ####[facility]ORYCLIA [id number] [place] [address] Hematocrit (Bld) [Volume fraction] 38.2 % Normal 36.0-46.0 [facility] Comment on above: Order Comment: Speci men Type: VENOUS BLOOD SPECIMEN Performed By: #### 2 4344-4 ####[facility]ORYCLIA [id number] [place] [address] Hemoglobin (Bld) [Mass/Vol] 12.4 g/dL Normal 11.5-15.5 [facility] Comment on above: Order Comment: Speci men Type: VENOUS BLOOD SPECIMEN Performed By: #### 2 4344-4 ####[facility]ORYCLIA [id number] [place] [address] Methemoglobin (Bld) [Mass fraction] 1.0 % Normal 0.0-1.5 [facility] Comment on above: Order Comment: Speci men Type: VENOUS BLOOD SPECIMEN Performed By: #### 2 4344-4 ####[facility]ORYCLIA [id number] [place] [address] O2 THERAPY Positive Normal [facility] Comment on above: Order Comment: Speci men Type: VENOUS BLOOD SPECIMEN Performed By: #### 2 4344-4 ####[facility]ORYCLIA [id number] [place] [address] Oxygen (BldV) [Partial pressure] 48 mm[Hg] High 35-45 [facility] Comment on above: Order Comment: Speci men Type: VENOUS BLOOD SPECIMEN Performed By: #### 2 4344-4 ####[facility]ORYCLIA [id number] [place] [address] Oxygen adjusted to patient's actual temperature (BldV) [Partial pressure] 50.9 mmHg High 35-45 [facility] Comment on above: Order Comment: Speci men Type: VENOUS BLOOD SPECIMEN Performed By: #### 2 4344-4 ####[facility]ORYCLIA [id number] [place] [address] Oxygen saturation in Blood 81.1 % Normal 60-85 [facility] Comment on above: Order Comment: Speci men Type: VENOUS BLOOD SPECIMEN Performed By: #### 2 4344-4 ####[facility]ORYCLIA [id number] [place] [address] Oxyhemoglobin (BldV) [Mass fraction] 79 % Normal 60-85 [facility] Comment on above: Order Comment: Speci men Type: VENOUS BLOOD SPECIMEN Performed By: #### 2 4344-4 ####[facility]ORYCLIA [id number] [place] [address] pH (BldV) 7.36 [pH] Normal 7.32-7.42 [facility] Comment on above: Order Comment: Speci men Type: VENOUS BLOOD SPECIMEN Performed By: #### 2 4344-4 ####[facility]ATORYCLIA [id number] [place] [address] pH adjusted to patient's actual temperature (BldV) 7.35 Normal 7.32-7.42 [facility] Comment on above: Order Comment: Speci men Type: VENOUS BLOOD SPECIMEN Performed By: #### 2 4344-4 ####[facility]ATORYCLIA [id number] [place] [address] Potassium [Moles/Vol] 4.1 mmol/L Normal 3.5-5.0 [facility] Comment on above: Order Comment: Speci men Type: VENOUS BLOOD SPECIMEN Performed By: #### 2 4344-4 ####[facility] LABORATORYCLIA [id number] [place] [address] Sodium [Moles/Vol] 144 mmol/L Normal 136-144 [facility] Comment on above: Order Comment: Speci men Type: VENOUS BLOOD SPECIMEN Performed By: #### 2 4344-4 ####[facility] LABORATORYCLIA [id number] [place] [address] Lactate (Bld) [Moles/Vol]on 12-29-2020 Lactate [Moles/Vol] 1.5 mmol/L Normal 0.5-2.2 [facility] Comment on above: Order Comment: Speci men Type: BLOOD SPECIMEN Performed By: #### 3 2693-4 ####[facility] LABORATORYCLIA [id number] [place] [address] Magnesium SerPl-mCncon 12-29 Magnesium [Mass/Vol] 2.4 mg/dL High 1.7-2.3 [facility] Comment on above: Order Comment: Speci men Type: BLOOD SPECIMEN Performed By: #### 2 777-1, 22472-0, 85313-0 ####[facility] LABORATORYCLIA [id number] [place] [address] PT EDon 12-29-2020 PT ED Normal [facility] Phosphate SerPl-mCncon 12-29 Phosphate [Mass/Vol] 4.5 mg/dL Normal 2.7-4.8 [facility] Comment on above: Order Comment: Speci men Type: BLOOD SPECIMEN Performed By: #### 2 777-1, 63615-4, 53154-0 ####[facility]ORYCLIA [id number] [place] [address] THERAPY NTon 12-29-2020 THERAPY NT Normal [facility] XR ABDOMEN 1V SUPINEon 12-29 XR ABDOMEN 1V SUPINE Normal [facility] XR CHEST 1V FRONTALon 2020 XR CHEST 1V FRONTAL Normal [facility] ALLIED HEALTHon 12-28-2020 ALLIED HEALTH Normal [facility] ALLIED HEALTH Normal [facility] ALLIED HEALTH Normal [facility] ARTERIAL BLOOD GASESon 12-28 BASE DEFICIT, ARTERIAL -1.4 mmol/L Normal -2-0 [facility] Comment on above: Order Comment: Speci men Type: ARTERIAL BLOOD SPECIMEN Performed By: #### A LLBG ####[facility] LABORATORYCLIA [id number] [place] [address] Body temperature 98.24 [degF] Normal [facility] Comment on above: Order Comment: Speci men Type: ARTERIAL BLOOD SPECIMEN Performed By: #### A LLBG ####[facility] LABORATORYCLIA [id number] [place] [address] CALCIUM IONIZED, PH CORRECTED 1.11 mmol/L Normal 1.08-1.30 [facility] Comment on above: Order Comment: Speci men Type: ARTERIAL BLOOD SPECIMEN Performed By: #### A LLBG ####[facility]ATORYCLIA [id number] [place] [address] Calcium.ionized (BldV) [Mass/Vol] 1.18 mmol/L Normal 1.08-1.30 [facility] Comment on above: Order Comment: Speci men Type: ARTERIAL BLOOD SPECIMEN Performed By: #### A LLBG ####[facility]ORATORYCLIA [id number] [place] [address] Carboxyhemoglobin (BldA) [Mass fraction] 1.2 % Normal 0.0-2.0 [facility] Comment on above: Order Comment: Speci men Type: ARTERIAL BLOOD SPECIMEN Result Comment: Carb oxyhemoglobin Reference Range for Smokers: 2.0-8.0% Performed By: #### A LLBG ####[facility]ORATORYCLIA [id number] [place] [address] CO2 (Bld) [Partial pressure] 54 mm Hg High 36-46 [facility] Comment on above: Order Comment: Speci men Type: ARTERIAL BLOOD SPECIMEN Performed By: #### A LLBG ####[facility]ATORYCLIA [id number] [place] [address] CO2 [Moles/Vol] 23.6 mmol/L Normal 22-28 [facility] Comment on above: Order Comment: Speci men Type: ARTERIAL BLOOD SPECIMEN Performed By: #### A LLBG ####[facility]ATORYCLIA [id number] [place] [address] CO2 adjusted to patient's actual temperature (Bld) [Partial pressure] 54 mmHg High 36-46 [facility] Comment on above: Order Comment: Speci men Type: ARTERIAL BLOOD SPECIMEN Performed By: #### A LLBG ####[facility]ORYCLIA [id number] [place] [address] Glucose [Mass/Vol] 103 mg/dL Normal 60-105 [facility] Comment on above: Order Comment: Speci men Type: ARTERIAL BLOOD SPECIMEN Performed By: #### A LLBG ####[facility]ORATORYCLIA [id number] [place] [address] HCO3 (Bld) [Moles/Vol] 25 mmol/L Normal 22-26 [facility] Comment on above: Order Comment: Speci men Type: ARTERIAL BLOOD SPECIMEN Performed By: #### A LLBG ####[facility]ORYCLIA [id number] [place] [address] Hematocrit (Bld) [Volume fraction] 35.1 % Low 36.0-46.0 [facility] Comment on above: Order Comment: Speci men Type: ARTERIAL BLOOD SPECIMEN Performed By: #### A LLBG ####[facility]ORATORYCLIA [id number] [place] [address] Hemoglobin (Bld) [Mass/Vol] 11.4 g/dL Low 11.5-15.5 [facility] Comment on above: Order Comment: Speci men Type: ARTERIAL BLOOD SPECIMEN Performed By: #### A LLBG ####[facility]ATORYCLIA [id number] [place] [address] Methemoglobin (Bld) [Mass fraction] 1.2 % Normal 0.0-1.5 [facility] Comment on above: Order Comment: Speci men Type: ARTERIAL BLOOD SPECIMEN Performed By: #### A LLBG ####[facility]ORATORYCLIA [id number] [place] [address] O2 THERAPY NC = Nasal Cannula Normal [facility] Comment on above: Order Comment: Speci men Type: ARTERIAL BLOOD SPECIMEN Result Comment: 8L Performed By: #### A LLBG ####[facility]ORATORYCLIA [id number] [place] [address] Oxygen (Bld) [Partial pressure] 92 mm Hg Normal 85-95 [facility] Comment on above: Order Comment: Speci men Type: ARTERIAL BLOOD SPECIMEN Performed By: #### A LLBG ####[facility]ATORYCLIA [id number] [place] [address] Oxygen adjusted to patient's actual temperature (Bld) [Partial pressure] 90.9 mmHg Normal 85-95 [facility] Comment on above: Order Comment: Speci men Type: ARTERIAL BLOOD SPECIMEN Performed By: #### A LLBG ####[facility]ORATORYCLIA [id number] [place] [address] OXYGEN SATURATION, ARTERIAL 96 % Normal 95-98 [facility] Comment on above: Order Comment: Speci men Type: ARTERIAL BLOOD SPECIMEN Performed By: #### A LLBG ####[facility]ORATORYCLIA [id number] [place] [address] Oxyhemoglobin (BldA) [Mass fraction] 94 % Low 95-98 [facility] Comment on above: Order Comment: Speci men Type: ARTERIAL BLOOD SPECIMEN Performed By: #### A LLBG ####[facility]ATORYCLIA [id number] [place] [address] pH (Bld) 7.29 [pH] Low 7.35-7.45 [facility] Comment on above: Order Comment: Speci men Type: ARTERIAL BLOOD SPECIMEN Performed By: #### A LLBG ####[facility]ORATORYCLIA [id number] [place] [address] pH adjusted to patient's actual temperature (Bld) 7.29 Low 7.35-7.45 [facility] Comment on above: Order Comment: Speci men Type: ARTERIAL BLOOD SPECIMEN Performed By: #### A LLBG ####[facility]ORYCLIA [id number] [place] [address] Potassium [Moles/Vol] 3.7 mmol/L Normal 3.5-5.0 [facility] Comment on above: Order Comment: Speci men Type: ARTERIAL BLOOD SPECIMEN Performed By: #### A LLBG ####[facility]ORYCLIA [id number] [place] [address] Sodium [Moles/Vol] 144 mmol/L Normal 136-144 [facility] Comment on above: Order Comment: Speci men Type: ARTERIAL BLOOD SPECIMEN Performed By: #### A LLBG ####[facility]ATORYCLIA [id number] [place] [address] Basic metabolic 2000 panelon 12-28-2020 Anion gap [Moles/Vol] 7 mmol/L Low 9-18 [facility] Comment on above: Order Comment: Speci men Type: BLOOD SPECIMEN Performed By: #### 1 9123-9, 26044-4, 2777-1 ####[facility]ORATORYCLIA [id number] [place] [address] Calcium [Mass/Vol] 7.1 mg/dL Low 8.5-10.2 [facility] Comment on above: Order Comment: Speci men Type: BLOOD SPECIMEN Performed By: #### 1 9123-9, 24129-1, 2776- ####[facility] LABORATORYCLIA [id number] [place] [address] Chloride [Moles/Vol] 117 mmol/L High 97-105 [facility] Comment on above: Order Comment: Speci men Type: BLOOD SPECIMEN Performed By: #### 1 9123-9, 04664-5, 2776- ####[facility] LABORATORYCLIA [id number] [place] [address] CO2 [Moles/Vol] 23 mmol/L Normal 22-30 [facility] Comment on above: Order Comment: Speci men Type: BLOOD SPECIMEN Performed By: #### 1 9123-9, 32556-0, 2776-08 ####[facility] LABORATORYCLIA [id number] [place] [address] Creatinine [Mass/Vol] 0.99 mg/dL High 0.58-0.96 [facility] Comment on above: Order Comment: Speci men Type: BLOOD SPECIMEN Performed By: #### 1 9123-9, 40849-6, 2776-08 ####[facility] LABORATORYCLIA [id number] [place] [address] GFR/1.73 sq M.predicted MDRD (S/P/Bld) [Vol rate/Area] mL/min/{1.73_m2} Normal [facility] Comment on above: Order Comment: Speci [...] actual GFR. Performed By: #### 1 9123-9, 87347-3, 2776-08 ####[facility] LABORATORYCLIA [id number] [place] [address] Glucose [Mass/Vol] 179 mg/dL High 74-99 [facility] Comment on above: Order Comment: Speci men Type: BLOOD SPECIMEN Result Comment: The [place] [employer] (ADA) provides guidance for cutoff [...] Standards of Medical Care in Diabetes 2016, [place] [employer]. Diabetes Care. 2016.39(Suppl 1). Performed By: #### 1 9123-9, , 2776-08 ####[facility]ORATORYCLIA [id number] [place] [address] Potassium [Moles/Vol] 3.8 mmol/L Normal 3.7-5.1 [facility] Comment on above: Order Comment: Speci men Type: BLOOD SPECIMEN Performed By: #### 1 9123-9, , 2776-08 ####[facility] LABORATORYCLIA [id number] [place] [address] Sodium [Moles/Vol] 147 mmol/L High 136-144 [facility] Comment on above: Order Comment: Speci men Type: BLOOD SPECIMEN Performed By: #### 1 9123-9, 01993-1, 2776-08 ####[facility] LABORATORYCLIA [id number] [place] [address] Urea nitrogen [Mass/Vol] 32 mg/dL High 7-21 [facility] Comment on above: Order Comment: Speci men Type: BLOOD SPECIMEN Performed By: #### 1 9123-9, 53590-7, 2776-08 ####[facility] LABORATORYCLIA [id number] [place] [address] CALCIUM IONIZED Bon 12-29-19 Calcium.ionized (BldV) [Mass/Vol] 1.10 mmol/L Normal 1.08-1.30 [facility] Comment on above: Order Comment: Speci men Type: BLOOD SPECIMEN Performed By: #### I CA ####[facility]ORATORYCLIA [id number] [place] [address] Calcium.ionized adjusted to pH 7.4 (Bld) [Moles/Vol] 1.10 mmol/L Normal 1.08-1.30 [facility] Comment on above: Order Comment: Speci men Type: BLOOD SPECIMEN Performed By: #### I CA ####[facility]ORATORYCLIA [id number] [place] [address] CBC panel Auto (Bld)on 12-28 Erythrocyte distribution width (RBC) [Ratio] 16.6 % High 11.5-15.0 [facility] Comment on above: Order Comment: Speci men Type: BLOOD SPECIMEN Performed By: #### 5 8410-2 ####[facility]ORATORYCLIA [id number] [place] [address] Hematocrit (Bld) [Volume fraction] 34.4 % Low 36.0-46.0 [facility] Comment on above: Order Comment: Speci men Type: BLOOD SPECIMEN Performed By: #### 5 8410-2 ####[facility]ORATORYCLIA [id number] [place] [address] Hemoglobin (Bld) [Mass/Vol] 11.6 g/dL Normal 11.5-15.5 [facility] Comment on above: Order Comment: Speci men Type: BLOOD SPECIMEN Performed By: #### 5 8410-2 ####[facility]ORATORYCLIA [id number] [place] [address] MCH (RBC) [Entitic mass] 29.1 pg Normal 26.0-34.0 [facility] Comment on above: Order Comment: Speci men Type: BLOOD SPECIMEN Performed By: #### 5 8410-2 ####[facility]ORATORYCLIA [id number] [place] [address] MCHC (RBC) [Mass/Vol] 33.7 g/dL Normal 30.5-36.0 [facility] Comment on above: Order Comment: Speci men Type: BLOOD SPECIMEN Performed By: #### 5 8410-2 ####[facility]ORATORYCLIA [id number] [place] [address] MCV (RBC) [Entitic vol] 86.2 fL Normal 80.0-100.0 [facility] Comment on above: Order Comment: Speci men Type: BLOOD SPECIMEN Performed By: #### 5 8410-2 ####[facility]ORATORYCLIA [id number] [place] [address] Nucleated RBC (Bld) [#/Vol] 0.09 10*3/uL High <0.01 [facility] Comment on above: Order Comment: Speci men Type: BLOOD SPECIMEN Performed By: #### 5 8410-2 ####[facility]ORATORYCLIA [id number] [place] [address] Platelet mean volume (Bld) [Entitic vol] 10.5 fL Normal 9.0-12.7 [facility] Comment on above: Order Comment: Speci men Type: BLOOD SPECIMEN Performed By: #### 5 8410-2 ####[facility]ORATORYCLIA [id number] [place] [address] Platelets (Bld) [#/Vol] 193 10*3/uL Normal 150-400 [facility] Comment on above: Order Comment: Speci men Type: BLOOD SPECIMEN Performed By: #### 5 8410-2 ####[facility]ORATORYCLIA [id number] [place] [address] RBC (Bld) [#/Vol] 3.99 10*6/uL Normal 3.90-5.20 [facility] Comment on above: Order Comment: Speci men Type: BLOOD SPECIMEN Performed By: #### 5 8410-2 ####[facility]ORATORYCLIA [id number] [place] [address] WBC (Bld) [#/Vol] 10.32 10*3/uL Normal 3.70-11.00 [facility] Comment on above: Order Comment: Speci men Type: BLOOD SPECIMEN Performed By: #### 5 8410-2 ####[facility]ORATORYCLIA [id number] [place] [address] Erythrocyte distribution width (RBC) [Ratio] 15.9 % High 11.5-15.0 [facility] Comment on above: Order Comment: Speci men Type: BLOOD SPECIMEN Performed By: #### 5 8410-2 ####[facility]ORATORYCLIA [id number] [place] [address] Hematocrit (Bld) [Volume fraction] 24.5 % Low 36.0-46.0 [facility] Comment on above: Order Comment: Speci men Type: BLOOD SPECIMEN Performed By: #### 5 8410-2 ####[facility]ORATORYCLIA [id number] [place] [address] Hemoglobin (Bld) [Mass/Vol] 7.7 g/dL Low 11.5-15.5 [facility] Comment on above: Order Comment: Speci men Type: BLOOD SPECIMEN Performed By: #### 5 8410-2 ####[facility]ORATORYCLIA [id number] [place] [address] MCH (RBC) [Entitic mass] 28.9 pg Normal 26.0-34.0 [facility] Comment on above: Order Comment: Speci men Type: BLOOD SPECIMEN Performed By: #### 5 8410-2 ####[facility]ORATORYCLIA [id number] [place] [address] MCHC (RBC) [Mass/Vol] 31.4 g/dL Normal 30.5-36.0 [facility] Comment on above: Order Comment: Speci men Type: BLOOD SPECIMEN Performed By: #### 5 8410-2 ####[facility]ORATORYCLIA [id number] [place] [address] MCV (RBC) [Entitic vol] 92.1 fL Normal 80.0-100.0 [facility] Comment on above: Order Comment: Speci men Type: BLOOD SPECIMEN Performed By: #### 5 8410-2 ####[facility]ORATORYCLIA [id number] [place] [address] Nucleated RBC (Bld) [#/Vol] 0.05 10*3/uL High <0.01 [facility] Comment on above: Order Comment: Speci men Type: BLOOD SPECIMEN Performed By: #### 5 8410-2 ####[facility]ORATORYCLIA [id number] [place] [address] Platelet mean volume (Bld) [Entitic vol] 11.6 fL Normal 9.0-12.7 [facility] Comment on above: Order Comment: Speci men Type: BLOOD SPECIMEN Performed By: #### 5 8410-2 ####[facility]ORATORYCLIA [id number] [place] [address] Platelets (Bld) [#/Vol] 179 10*3/uL Normal 150-400 [facility] Comment on above: Order Comment: Speci men Type: BLOOD SPECIMEN Performed By: #### 5 8410-2 ####[facility]ORATORYCLIA [id number] [place] [address] RBC (Bld) [#/Vol] 2.66 10*6/uL Low 3.90-5.20 [facility] Comment on above: Order Comment: Speci men Type: BLOOD SPECIMEN Performed By: #### 5 8410-2 ####[facility]ORATORYCLIA [id number] [place] [address] WBC (Bld) [#/Vol] 9.06 10*3/uL Normal 3.70-11.00 [facility] Comment on above: Order Comment: Speci men Type: BLOOD SPECIMEN Performed By: #### 5 8410-2 ####[facility]ATORYCLIA [id number] [place] [address] CONSULT PROGon 12-28-2020 CONSULT PROG Normal [facility] CT ABD/PEL W IVCONon 021 CT ABD/PEL W IVCON Normal [facility] CT BRAIN WO IVCONon 12-29-[address] BRAIN WO IVCON Normal [facility] HIGH SENSITIVITY TROPONIN To n 12-28-2020 HIGH SENSITIVITY MARIAM 8 ng/L Normal <12 [facility] Comment on above: Order Comment: [...] day MACE. Performed By: #### H STNT ####[facility]ORATORYCLIA [id number] [place] [address] Lactate (Bld) [Moles/Vol]on 12-28-2020 Lactate [Moles/Vol] 0.9 mmol/L Normal 0.5-2.2 [facility] Comment on above: Order Comment: Speci men Type: BLOOD SPECIMEN Performed By: #### 3 2693-4 ####[facility]ORATORYCLIA [id number] [place] [address] Magnesium SerPl-mCncon 12-28 Magnesium [Mass/Vol] 2.6 mg/dL High 1.7-2.3 [facility] Comment on above: Order Comment: Speci men Type: BLOOD SPECIMEN Performed By: #### 1 9123-9, 12598-0, 2777-1 ####[facility]ORATORYCLIA [id number] [place] [address] NURSING PROGon 12-28-2020 NURSING PROG Normal [facility] NUTRITIONon 12-28-2020 NUTRITION Normal [facility] Phosphate SerPl-mCncon 12-28 Phosphate [Mass/Vol] 2.9 mg/dL Normal 2.7-4.8 [facility] Comment on above: Order Comment: Speci men Type: BLOOD SPECIMEN Performed By: #### 1 9123-9, 10961-2, 277- ####[facility]ORATORYCLIA [id number] [place] [address] TYPE AND SCREENon 12-28-2020 ABO A Normal [facility] Comment on above: Order Comment: Speci men Type: BLOOD SPECIMEN Performed By: #### T SCR ####[facility] BLOOD BANKCLIA [id number] [place] [address] HISTORICAL AB SCR STATUS Negative Normal [facility] Comment on above: Order Comment: Speci men Type: BLOOD SPECIMEN Performed By: #### T SCR ####[facility]LO[facility] BANKCLIA [id number] [place] [address] Rh Nom (Bld) Positive [facility] Comment on above: Order Comment: Speci men Type: BLOOD SPECIMEN Performed By: #### T SCR ####[facility]LOOD BANKCLIA [id number] [place] [address] TYPE AND SCREEN EXPIRATION 12/31/2020 23:59 Normal [facility] Comment on above: Order Comment: Speci men Type: BLOOD SPECIMEN Performed By: #### T SCR ####[facility] BLOOD BANKCLIA [id number] [place] [address] XR ABDOMEN 1V SUPINEon 12-28 XR ABDOMEN 1V SUPINE Normal [facility] XR CHEST 1V FRONTALon 2020 XR CHEST 1V FRONTAL Normal [facility] ALLIED HEALTHon 12-27-2020 ALLIED HEALTH Normal [facility] Basic metabolic 2000 panelon 12-27-2020 Anion gap [Moles/Vol] 7 mmol/L Low 9-18 [facility] Comment on above: Order Comment: Speci men Type: BLOOD SPECIMEN Performed By: #### 2 4321-2, 82767-8, 2776-08 ####[facility] LABORATORYCLIA [id number] [place] [address] Calcium [Mass/Vol] 7.3 mg/dL Low 8.5-10.2 [facility] Comment on above: Order Comment: Speci men Type: BLOOD SPECIMEN Performed By: #### 2 4321-2, , 2776-08 ####[facility] LABORATORYCLIA [id number] [place] [address] Chloride [Moles/Vol] 114 mmol/L High 97-105 [facility] Comment on above: Order Comment: Speci men Type: BLOOD SPECIMEN Performed By: #### 2 4321-2, , 2776-08 ####[facility] LABORATORYCLIA [id number] [place] [address] CO2 [Moles/Vol] 22 mmol/L Normal 22-30 [facility] Comment on above: Order Comment: Speci men Type: BLOOD SPECIMEN Performed By: #### 2 4321-2, , 2776-08 ####[facility] LABORATORYCLIA [id number] [place] [address] Creatinine [Mass/Vol] 1.02 mg/dL High 0.58-0.96 [facility] Comment on above: Order Comment: Speci men Type: BLOOD SPECIMEN Performed By: #### 2 4321-2, , 2776-08 ####[facility] LABORATORYCLIA [id number] [place] [address] GFR/1.73 sq M.predicted MDRD (S/P/Bld) [Vol rate/Area] mL/min/{1.73_m2} Normal [facility] Comment on above: Order Comment: Speci [...] Performed By: #### 2 4321-2, , 2776-08 ####[facility] LABORATORYCLIA [id number] [place] [address] Glucose [Mass/Vol] 169 mg/dL High 74-99 [facility] Comment on above: Order Comment: Speci men Type: BLOOD SPECIMEN Result Comment: The [place] [employer] (ADA) provides guidance for cutoff [...] Standards of Medical Care in Diabetes 2016, [place] [employer]. Diabetes Care. 2016.39(Suppl 1). Performed By: #### 2 4320-2, , 2776-08 ####[facility] LABORATORYCLIA [id number] [place] [address] Potassium [Moles/Vol] 3.5 mmol/L Low 3.7-5.1 [facility] Comment on above: Order Comment: Speci men Type: BLOOD SPECIMEN Performed By: #### 2 4320-2, , 2776-08 ####[facility] LABORATORYCLIA [id number] [place] [address] Sodium [Moles/Vol] 143 mmol/L Normal 136-144 [facility] Comment on above: Order Comment: Speci men Type: BLOOD SPECIMEN Performed By: #### 2 1-2, , 2776-08 ####[facility] LABORATORYCLIA [id number] [place] [address] Urea nitrogen [Mass/Vol] 22 mg/dL High 7-21 [facility] Comment on above: Order Comment: Speci men Type: BLOOD SPECIMEN Performed By: #### 2 1-2, , 2776-08 ####[facility] LABORATORYCLIA [id number] [place] [address] CALCIUM IONIZED Bon 12-28-19 Calcium.ionized (BldV) [Mass/Vol] 1.12 mmol/L Normal 1.08-1.30 [facility] Comment on above: Order Comment: Speci men Type: BLOOD SPECIMEN Performed By: #### I CA ####[facility] LABORATORYCLIA [id number] [place] [address] Calcium.ionized adjusted to pH 7.4 (Bld) [Moles/Vol] 1.13 mmol/L Normal 1.08-1.30 [facility] Comment on above: Order Comment: Speci men Type: BLOOD SPECIMEN Performed By: #### I CA ####[facility] LABORATORYCLIA [id number] [place] [address] CBC panel Auto (Bld)on 12-27 Erythrocyte distribution width (RBC) [Ratio] 15.8 % High 11.5-15.0 [facility] Comment on above: Order Comment: Speci men Type: BLOOD SPECIMEN Performed By: #### 5 8410-2 ####[facility] LABORATORYCLIA [id number] [place] [address] Hematocrit (Bld) [Volume fraction] 30.4 % Low 36.0-46.0 [facility] Comment on above: Order Comment: Speci men Type: BLOOD SPECIMEN Performed By: #### 5 8410-2 ####[facility] LABORATORYCLIA [id number] [place] [address] Hemoglobin (Bld) [Mass/Vol] 9.9 g/dL Low 11.5-15.5 [facility] Comment on above: Order Comment: Speci men Type: BLOOD SPECIMEN Performed By: #### 5 8410-2 ####[facility] LABORATORYCLIA [id number] [place] [address] MCH (RBC) [Entitic mass] 29.3 pg Normal 26.0-34.0 [facility] Comment on above: Order Comment: Speci men Type: BLOOD SPECIMEN Performed By: #### 5 8410-2 ####[facility] LABORATORYCLIA [id number] [place] [address] MCHC (RBC) [Mass/Vol] 32.6 g/dL Normal 30.5-36.0 [facility] Comment on above: Order Comment: Speci men Type: BLOOD SPECIMEN Performed By: #### 5 8410-2 ####[facility] LABORATORYCLIA [id number] [place] [address] MCV (RBC) [Entitic vol] 89.9 fL Normal 80.0-100.0 [facility] Comment on above: Order Comment: Speci men Type: BLOOD SPECIMEN Performed By: #### 5 8410-2 ####[facility]ORATORYCLIA [id number] [place] [address] Nucleated RBC (Bld) [#/Vol] 10*3/uL Normal <0.01 [facility] Comment on above: Order Comment: Speci men Type: BLOOD SPECIMEN Performed By: #### 5 8410-2 ####[facility]ORATORYCLIA [id number] [place] [address] Platelet mean volume (Bld) [Entitic vol] 10.9 fL Normal 9.0-12.7 [facility] Comment on above: Order Comment: Speci men Type: BLOOD SPECIMEN Performed By: #### 5 8410-2 ####[facility]ORATORYCLIA [id number] [place] [address] Platelets (Bld) [#/Vol] 175 10*3/uL Normal 150-400 [facility] Comment on above: Order Comment: Speci men Type: BLOOD SPECIMEN Performed By: #### 5 8410-2 ####[facility]ORATORYCLIA [id number] [place] [address] RBC (Bld) [#/Vol] 3.38 10*6/uL Low 3.90-5.20 [facility] Comment on above: Order Comment: Speci men Type: BLOOD SPECIMEN Performed By: #### 5 8410-2 ####[facility]ORATORYCLIA [id number] [place] [address] WBC (Bld) [#/Vol] 13.19 10*3/uL High 3.70-11.00 [facility] Comment on above: Order Comment: Speci men Type: BLOOD SPECIMEN Performed By: #### 5 8410-2 ####[facility]ORATORYCLIA [id number] [place] [address] CONSULT PROGon 12-27-2020 CONSULT PROG Normal [facility] Magnesium SerPl-ncon 12-27 Magnesium [Mass/Vol] 2.8 mg/dL High 1.7-2.3 [facility] Comment on above: Order Comment: Speci men Type: BLOOD SPECIMEN Performed By: #### 2 4321-2, 90602-3, 27702-15 ####[facility]ORATORYCLIA [id number] [place] [address] NURSING PROGon 12-27-2020 NURSING PROG Normal [facility] NURSING PROG Normal [facility] Phosphate SerPl-ncon 12-27 Phosphate [Mass/Vol] 2.7 mg/dL Normal 2.7-4.8 [facility] Comment on above: Order Comment: Speci men Type: BLOOD SPECIMEN Performed By: #### 2 4321-2, 30352-9, 27702-15 ####[facility]ORATORYCLIA [id number] [place] [address] XR CHEST 1V FRONTALon 2020 XR CHEST 1V FRONTAL Normal [facility] ALLIED HEALTHon 12-26-2020 ALLIED HEALTH Normal [facility] ARTERIAL BLOOD GASESon 12-26 BASE DEFICIT, ARTERIAL -1.0 mmol/L Normal -2-0 [facility] Comment on above: Order Comment: Speci men Type: ARTERIAL BLOOD SPECIMEN Performed By: #### A LLBG ####[facility]ORATORYCLIA [id number] [place] [address] Body temperature 99.68 [degF] Normal [facility] Comment on above: Order Comment: Speci men Type: ARTERIAL BLOOD SPECIMEN Performed By: #### A LLBG ####[facility]ATORYCLIA [id number] [place] [address] CALCIUM IONIZED, PH CORRECTED 1.14 mmol/L Normal 1.08-1.30 [facility] Comment on above: Order Comment: Speci men Type: ARTERIAL BLOOD SPECIMEN Performed By: #### A LLBG ####[facility]ORATORYCLIA [id number] [place] [address] Calcium.ionized (BldV) [Mass/Vol] 1.12 mmol/L Normal 1.08-1.30 [facility] Comment on above: Order Comment: Speci men Type: ARTERIAL BLOOD SPECIMEN Performed By: #### A LLBG ####[facility]ATORYCLIA [id number] [place] [address] Carboxyhemoglobin (BldA) [Mass fraction] 1.2 % Normal 0.0-2.0 [facility] Comment on above: Order Comment: Speci men Type: ARTERIAL BLOOD SPECIMEN Result Comment: Carb oxyhemoglobin Reference Range for Smokers: 2.0-8.0% Performed By: #### A LLBG ####[facility]ATORYCLIA [id number] [place] [address] CO2 (Bld) [Partial pressure] 33 mm Hg Low 36-46 [facility] Comment on above: Order Comment: Speci men Type: ARTERIAL BLOOD SPECIMEN Performed By: #### A LLBG ####[facility]ATORYCLIA [id number] [place] [address] CO2 [Moles/Vol] 20.1 mmol/L Low 22-28 [facility] Comment on above: Order Comment: Speci men Type: ARTERIAL BLOOD SPECIMEN Performed By: #### A LLBG ####[facility]ATORYCLIA [id number] [place] [address] CO2 adjusted to patient's actual temperature (Bld) [Partial pressure] 34 mmHg Low 36-46 [facility] Comment on above: Order Comment: Speci men Type: ARTERIAL BLOOD SPECIMEN Performed By: #### A LLBG ####[facility]ORATORYCLIA [id number] [place] [address] FIO2 30 % Normal [facility] Comment on above: Order Comment: Speci men Type: ARTERIAL BLOOD SPECIMEN Performed By: #### A LLBG ####[facility]ATORYCLIA [id number] [place] [address] Glucose [Mass/Vol] 160 mg/dL High 60-105 [facility] Comment on above: Order Comment: Speci men Type: ARTERIAL BLOOD SPECIMEN Performed By: #### A LLBG ####[facility]ORATORYCLIA [id number] [place] [address] HCO3 (Bld) [Moles/Vol] 22 mmol/L Normal 22-26 [facility] Comment on above: Order Comment: Speci men Type: ARTERIAL BLOOD SPECIMEN Performed By: #### A LLBG ####[facility]ATORYCLIA [id number] [place] [address] Hematocrit (Bld) [Volume fraction] 33.9 % Low 36.0-46.0 [facility] Comment on above: Order Comment: Speci men Type: ARTERIAL BLOOD SPECIMEN Performed By: #### A LLBG ####[facility]ATORYCLIA [id number] [place] [address] Hemoglobin (Bld) [Mass/Vol] 11.0 g/dL Low 11.5-15.5 [facility] Comment on above: Order Comment: Speci men Type: ARTERIAL BLOOD SPECIMEN Performed By: #### A LLBG ####[facility]ATORYCLIA [id number] [place] [address] Methemoglobin (Bld) [Mass fraction] 1.1 % Normal 0.0-1.5 [facility] Comment on above: Order Comment: Speci men Type: ARTERIAL BLOOD SPECIMEN Performed By: #### A LLBG ####[facility]ORATORYCLIA [id number] [place] [address] O2 THERAPY Ventilator Normal [facility] Comment on above: Order Comment: Speci men Type: ARTERIAL BLOOD SPECIMEN Performed By: #### A LLBG ####[facility]ORATORYCLIA [id number] [place] [address] Oxygen (Bld) [Partial pressure] 85 mm Hg Normal 85-95 [facility] Comment on above: Order Comment: Speci men Type: ARTERIAL BLOOD SPECIMEN Performed By: #### A LLBG ####[facility]ATORYCLIA [id number] [place] [address] Oxygen adjusted to patient's actual temperature (Bld) [Partial pressure] 87.7 mmHg Normal 85-95 [facility] Comment on above: Order Comment: Speci men Type: ARTERIAL BLOOD SPECIMEN Performed By: #### A LLBG ####[facility]ORATORYCLIA [id number] [place] [address] OXYGEN SATURATION, ARTERIAL 97 % Normal 95-98 [facility] Comment on above: Order Comment: Speci men Type: ARTERIAL BLOOD SPECIMEN Performed By: #### A LLBG ####[facility]ORATORYCLIA [id number] [place] [address] Oxyhemoglobin (BldA) [Mass fraction] 95 % Normal 95-98 [facility] Comment on above: Order Comment: Speci men Type: ARTERIAL BLOOD SPECIMEN Performed By: #### A LLBG ####[facility]ATORYCLIA [id number] [place] [address] pH (Bld) 7.44 [pH] Normal 7.35-7.45 [facility] Comment on above: Order Comment: Speci men Type: ARTERIAL BLOOD SPECIMEN Performed By: #### A LLBG ####[facility]ATORYCLIA [id number] [place] [address] pH adjusted to patient's actual temperature (Bld) 7.43 Normal 7.35-7.45 [facility] Comment on above: Order Comment: Speci men Type: ARTERIAL BLOOD SPECIMEN Performed By: #### A LLBG ####[facility]ORATORYCLIA [id number] [place] [address] Potassium [Moles/Vol] 3.3 mmol/L Low 3.5-5.0 [facility] Comment on above: Order Comment: Speci men Type: ARTERIAL BLOOD SPECIMEN Performed By: #### A LLBG ####[facility]ORATORYCLIA [id number] [place] [address] Sodium [Moles/Vol] 144 mmol/L Normal 136-144 [facility] Comment on above: Order Comment: Speci men Type: ARTERIAL BLOOD SPECIMEN Performed By: #### A LLBG ####[facility]ATORYCLIA [id number] [place] [address] Basic metabolic 2000 panelon 12-26-2020 Anion gap [Moles/Vol] 9 mmol/L Normal 9-18 [facility] Comment on above: Order Comment: Speci men Type: BLOOD SPECIMEN Performed By: #### 2 4321-2, , 2776-08 ####[facility]ORATORYCLIA [id number] [place] [address] Calcium [Mass/Vol] 7.4 mg/dL Low 8.5-10.2 [facility] Comment on above: Order Comment: Speci men Type: BLOOD SPECIMEN Performed By: #### 2 4321-2, , 2776-08 ####[facility] LABORATORYCLIA [id number] [place] [address] Chloride [Moles/Vol] 114 mmol/L High 97-105 [facility] Comment on above: Order Comment: Speci men Type: BLOOD SPECIMEN Performed By: #### 2 4321-2, , 2776-08 ####[facility]ORATORYCLIA [id number] [place] [address] CO2 [Moles/Vol] 22 mmol/L Normal 22-30 [facility] Comment on above: Order Comment: Speci men Type: BLOOD SPECIMEN Performed By: #### 2 4321-2, , 2776-08 ####[facility]ATORYCLIA [id number] [place] [address] Creatinine [Mass/Vol] 1.25 mg/dL High 0.58-0.96 [facility] Comment on above: Order Comment: Speci men Type: BLOOD SPECIMEN Performed By: #### 2 4321-2, , 2776-08 ####[facility]ORATORYCLIA [id number] [place] [address] GFR/1.73 sq M.predicted MDRD (S/P/Bld) [Vol rate/Area] 52 mL/min/{1.73_m2} Normal [facility] Comment on above: Order Comment: Speci [...] reflect actual GFR. Performed By: #### 2 432-2, , 2776-08 ####[facility]ITALIA [id number] [place] [address] Glucose [Mass/Vol] 157 mg/dL High 74-99 [facility] Comment on above: Order Comment: Speci men Type: BLOOD SPECIMEN Result Comment: The [place] [employer] (ADA) provides guidance for cutoff [...] Standards of Medical Care in Diabetes 2016, [place] [employer]. Diabetes Care. 2016.39(Suppl 1). Performed By: #### 2 4321-2, , 2776-08 ####[facility]ORATORYCLIA [id number] [place] [address] Potassium [Moles/Vol] 3.3 mmol/L Low 3.7-5.1 [facility] Comment on above: Order Comment: Speci men Type: BLOOD SPECIMEN Performed By: #### 2 4321-2, , 2776-08 ####[facility]ORATORYCLIA [id number] [place] [address] Sodium [Moles/Vol] 145 mmol/L High 136-144 [facility] Comment on above: Order Comment: Speci men Type: BLOOD SPECIMEN Performed By: #### 2 4321-2, , 2776-08 ####[facility]ORATORYCLIA [id number] [place] [address] Urea nitrogen [Mass/Vol] 18 mg/dL Normal 7- [facility] Comment on above: Order Comment: Speci men Type: BLOOD SPECIMEN Performed By: #### 2 4321-2, , 2776-08 ####[facility]ORATORYCLIA [id number] [place] [address] CASE MANAGEMon 12-26-2020 CASE MANAGEM Normal [facility] CBC panel Auto (Bld)on 12-26 Erythrocyte distribution width (RBC) [Ratio] 15.3 % High 11.5-15.0 [facility] Comment on above: Order Comment: Speci men Type: BLOOD SPECIMEN Performed By: #### 5 8410-2 ####[facility]ORATORYCLIA [id number] [place] [address] Hematocrit (Bld) [Volume fraction] 32.0 % Low 36.0-46.0 [facility] Comment on above: Order Comment: Speci men Type: BLOOD SPECIMEN Performed By: #### 5 8410-2 ####[facility]ORYCLIA [id number] [place] [address] Hemoglobin (Bld) [Mass/Vol] 10.8 g/dL Low 11.5-15.5 [facility] Comment on above: Order Comment: Speci men Type: BLOOD SPECIMEN Performed By: #### 5 8410-2 ####[facility]ORATORYCLIA [id number] [place] [address] MCH (RBC) [Entitic mass] 30.0 pg Normal 26.0-34.0 [facility] Comment on above: Order Comment: Speci men Type: BLOOD SPECIMEN Performed By: #### 5 8410-2 ####[facility]ORATORYCLIA [id number] [place] [address] MCHC (RBC) [Mass/Vol] 33.8 g/dL Normal 30.5-36.0 [facility] Comment on above: Order Comment: Speci men Type: BLOOD SPECIMEN Performed By: #### 5 8410-2 ####[facility]ORATORYCLIA [id number] [place] [address] MCV (RBC) [Entitic vol] 88.9 fL Normal 80.0-100.0 [facility] Comment on above: Order Comment: Speci men Type: BLOOD SPECIMEN Performed By: #### 5 8410-2 ####[facility]ORATORYCLIA [id number] [place] [address] Nucleated RBC (Bld) [#/Vol] 10*3/uL Normal <0.01 [facility] Comment on above: Order Comment: Speci men Type: BLOOD SPECIMEN Performed By: #### 5 8410-2 ####[facility]ORATORYCLIA [id number] [place] [address] Platelet mean volume (Bld) [Entitic vol] 10.2 fL Normal 9.0-12.7 [facility] Comment on above: Order Comment: Speci men Type: BLOOD SPECIMEN Performed By: #### 5 8410-2 ####[facility]ORATORYCLIA [id number] [place] [address] Platelets (Bld) [#/Vol] 165 10*3/uL Normal 150-400 [facility] Comment on above: Order Comment: Speci men Type: BLOOD SPECIMEN Performed By: #### 5 8410-2 ####[facility]ORATORYCLIA [id number] [place] [address] RBC (Bld) [#/Vol] 3.60 10*6/uL Low 3.90-5.20 [facility] Comment on above: Order Comment: Speci men Type: BLOOD SPECIMEN Performed By: #### 5 8410-2 ####[facility]ORATORYCLIA [id number] [place] [address] WBC (Bld) [#/Vol] 11.65 10*3/uL High 3.70-11.00 [facility] Comment on above: Order Comment: Speci men Type: BLOOD SPECIMEN Performed By: #### 5 8410-2 ####[facility]ORATORYCLIA [id number] [place] [address] CONSULT PROGon 12-26-2020 CONSULT PROG Normal [facility] HIGH SENSITIVITY TROPONIN To n 12-26-2020 HIGH SENSITIVITY MARIAM 12 ng/L High <12 [facility] Comment on above: Order Comment: [...] day MACE. Performed By: #### H STNT ####[facility]ORATORYCLIA [id number] [place] [address] Magnesium SerPl-mCncon 12-26 Magnesium [Mass/Vol] 1.7 mg/dL Normal 1.7-2.3 [facility] Comment on above: Order Comment: Speci men Type: BLOOD SPECIMEN Performed By: #### 2 4321-2, 41977-8, 2777-1 ####[facility]ORATORYCLIA [id number] [place] [address] NURSING PROGon 12-26-2020 NURSING PROG Normal [facility] NURSING PROG Normal [facility] NURSING PROG Normal [facility] Phosphate SerPl-mCncon 12-26 Phosphate [Mass/Vol] 2.5 mg/dL Low 2.7-4.8 [facility] Comment on above: Order Comment: Speci men Type: BLOOD SPECIMEN Performed By: #### 2 4321-2, 40311-9, 2777-1 ####[facility]ORATORYCLIA [id number] [place] [address] VITAMIN D 25 HYDROXYon 12-26 25-hydroxyvitamin D3 [Mass/Vol] 22.6 ng/mL Low 30.0-100.0 [facility] Comment on above: Order Comment: Speci men Type: BLOOD SPECIMEN Result Comment: Clas sification of 25 [place] Vitamin D status:Deficiency: < 20 ng/ml.Insufficientcy: 20-30 ng/ml.Sufficiency: 30-100 ng/ml. Performed By: #### V ITD ####[facility]ORATORYCLIA [id number] [place] [address] XR CHEST 1V FRONTALon 2020 XR CHEST 1V FRONTAL Normal [facility] ALLIED HEALTHon 12-25-2020 ALLIED HEALTH Normal [facility] ALLIED HEALTH Normal [facility] ALLIED HEALTH Normal [facility] ALLIED HEALTH Normal [facility] ALLIED HEALTH Normal [facility] ARTERIAL BLOOD GASESon 12-25 BASE DEFICIT, ARTERIAL -3.3 mmol/L Low -2-0 [facility] Comment on above: Order Comment: Speci men Type: ARTERIAL BLOOD SPECIMEN Performed By: #### A LLBG ####[facility]ORATORYCLIA [id number] [place] [address] Body temperature 97.16 [degF] Normal [facility] Comment on above: Order Comment: Speci men Type: ARTERIAL BLOOD SPECIMEN Performed By: #### A LLBG ####[facility]ORATORYCLIA [id number] [place] [address] CALCIUM IONIZED, PH CORRECTED 1.08 mmol/L Normal 1.08-1.30 [facility] Comment on above: Order Comment: Speci men Type: ARTERIAL BLOOD SPECIMEN Performed By: #### A LLBG ####[facility]ORATORYCLIA [id number] [place] [address] Calcium.ionized (BldV) [Mass/Vol] 1.12 mmol/L Normal 1.08-1.30 [facility] Comment on above: Order Comment: Speci men Type: ARTERIAL BLOOD SPECIMEN Performed By: #### A LLBG ####[facility]ATORYCLIA [id number] [place] [address] Carboxyhemoglobin (BldA) [Mass fraction] 1.2 % Normal 0.0-2.0 [facility] Comment on above: Order Comment: Speci men Type: ARTERIAL BLOOD SPECIMEN Result Comment: Carb oxyhemoglobin Reference Range for Smokers: 2.0-8.0% Performed By: #### A LLBG ####[facility]ATORYCLIA [id number] [place] [address] CO2 (Bld) [Partial pressure] 42 mm Hg Normal 36-46 [facility] Comment on above: Order Comment: Speci men Type: ARTERIAL BLOOD SPECIMEN Performed By: #### A LLBG ####[facility]ATORYCLIA [id number] [place] [address] CO2 [Moles/Vol] 20.6 mmol/L Low 22-28 [facility] Comment on above: Order Comment: Speci men Type: ARTERIAL BLOOD SPECIMEN Performed By: #### A LLBG ####[facility]ATORYCLIA [id number] [place] [address] CO2 adjusted to patient's actual temperature (Bld) [Partial pressure] 40 mmHg Normal 36-46 [facility] Comment on above: Order Comment: Speci men Type: ARTERIAL BLOOD SPECIMEN Performed By: #### A LLBG ####[facility]ATORYCLIA [id number] [place] [address] FIO2 40 % Normal [facility] Comment on above: Order Comment: Speci men Type: ARTERIAL BLOOD SPECIMEN Performed By: #### A LLBG ####[facility]ORYCLIA [id number] [place] [address] Glucose [Mass/Vol] 115 mg/dL High 60-105 [facility] Comment on above: Order Comment: Speci men Type: ARTERIAL BLOOD SPECIMEN Performed By: #### A LLBG ####[facility]ATORYCLIA [id number] [place] [address] HCO3 (Bld) [Moles/Vol] 22 mmol/L Normal 22-26 [facility] Comment on above: Order Comment: Speci men Type: ARTERIAL BLOOD SPECIMEN Performed By: #### A LLBG ####[facility]ORYCLIA [id number] [place] [address] Hematocrit (Bld) [Volume fraction] 29.3 % Low 36.0-46.0 [facility] Comment on above: Order Comment: Speci men Type: ARTERIAL BLOOD SPECIMEN Performed By: #### A LLBG ####[facility]ORYCLIA [id number] [place] [address] Hemoglobin (Bld) [Mass/Vol] 9.4 g/dL Low 11.5-15.5 [facility] Comment on above: Order Comment: Speci men Type: ARTERIAL BLOOD SPECIMEN Performed By: #### A LLBG ####[facility]ORYCLIA [id number] [place] [address] Methemoglobin (Bld) [Mass fraction] % Normal 0.0-1.5 [facility] Comment on above: Order Comment: Speci men Type: ARTERIAL BLOOD SPECIMEN Performed By: #### A LLBG ####[facility]ATORYCLIA [id number] [place] [address] O2 THERAPY Ventilator Normal [facility] Comment on above: Order Comment: Speci men Type: ARTERIAL BLOOD SPECIMEN Performed By: #### A LLBG ####[facility]ORYCLIA [id number] [place] [address] Oxygen (Bld) [Partial pressure] 137 mm Hg High 85-95 [facility] Comment on above: Order Comment: Speci men Type: ARTERIAL BLOOD SPECIMEN Performed By: #### A LLBG ####[facility]ORYCLIA [id number] [place] [address] Oxygen adjusted to patient's actual temperature (Bld) [Partial pressure] 132 mmHg High 85-95 [facility] Comment on above: Order Comment: Speci men Type: ARTERIAL BLOOD SPECIMEN Performed By: #### A LLBG ####[facility]ORYCLIA [id number] [place] [address] OXYGEN SATURATION, ARTERIAL 99 % High 95-98 [facility] Comment on above: Order Comment: Speci men Type: ARTERIAL BLOOD SPECIMEN Performed By: #### A LLBG ####[facility]ATORYCLIA [id number] [place] [address] Oxyhemoglobin (BldA) [Mass fraction] 98 % Normal 95-98 [facility] Comment on above: Order Comment: Speci men Type: ARTERIAL BLOOD SPECIMEN Performed By: #### A LLBG ####[facility]ATORYCLIA [id number] [place] [address] pH (Bld) 7.34 [pH] Low 7.35-7.45 [facility] Comment on above: Order Comment: Speci men Type: ARTERIAL BLOOD SPECIMEN Performed By: #### A LLBG ####[facility]ORYCLIA [id number] [place] [address] pH adjusted to patient's actual temperature (Bld) 7.35 Normal 7.35-7.45 [facility] Comment on above: Order Comment: Speci men Type: ARTERIAL BLOOD SPECIMEN Performed By: #### A LLBG ####[facility]ATORYCLIA [id number] [place] [address] Potassium [Moles/Vol] 3.4 mmol/L Low 3.5-5.0 [facility] Comment on above: Order Comment: Speci men Type: ARTERIAL BLOOD SPECIMEN Performed By: #### A LLBG ####[facility]ATORYCLIA [id number] [place] [address] Sodium [Moles/Vol] 145 mmol/L High 136-144 [facility] Comment on above: Order Comment: Speci men Type: ARTERIAL BLOOD SPECIMEN Performed By: #### A LLBG ####[facility]ATORYCLIA [id number] [place] [address] BASE DEFICIT, ARTERIAL -8.6 mmol/L Low -2-0 [facility] Comment on above: Order Comment: Speci men Type: ARTERIAL BLOOD SPECIMEN Performed By: #### A LLBG ####[facility]ORYCLIA [id number] [place] [address] Body temperature 97.52 [degF] Normal [facility] Comment on above: Order Comment: Speci men Type: ARTERIAL BLOOD SPECIMEN Performed By: #### A LLBG ####[facility]ORYCLIA [id number] [place] [address] CALCIUM IONIZED, PH CORRECTED Normal [facility] Comment on above: Order Comment: Speci men Type: ARTERIAL BLOOD SPECIMEN Result Comment: Tomas ured pH is <7.20. Unable to report normalized Calcium.Measured pH is <7.20. Unable to report normalized Calcium. Performed By: #### A LLBG ####[facility]ORATORYCLIA [id number] [place] [address] Calcium.ionized (BldV) [Mass/Vol] 1.16 mmol/L Normal 1.08-1.30 [facility] Comment on above: Order Comment: Speci men Type: ARTERIAL BLOOD SPECIMEN Performed By: #### A LLBG ####[facility]ORATORYCLIA [id number] [place] [address] Carboxyhemoglobin (BldA) [Mass fraction] 1.1 % Normal 0.0-2.0 [facility] Comment on above: Order Comment: Speci men Type: ARTERIAL BLOOD SPECIMEN Performed By: #### A LLBG ####[facility]ORYCLIA [id number] [place] [address] CO2 (Bld) [Partial pressure] 57 mm Hg High 36-46 [facility] Comment on above: Order Comment: Speci men Type: ARTERIAL BLOOD SPECIMEN Performed By: #### A LLBG ####[facility]ORYCLIA [id number] [place] [address] CO2 [Moles/Vol] 19.1 mmol/L Low 22-28 [facility] Comment on above: Order Comment: Speci men Type: ARTERIAL BLOOD SPECIMEN Performed By: #### A LLBG ####[facility]ATORYCLIA [id number] [place] [address] CO2 adjusted to patient's actual temperature (Bld) [Partial pressure] 55 mmHg High 36-46 [facility] Comment on above: Order Comment: Speci men Type: ARTERIAL BLOOD SPECIMEN Performed By: #### A LLBG ####[facility]ORYCLIA [id number] [place] [address] FIO2 40 % Normal [facility] Comment on above: Order Comment: Speci men Type: ARTERIAL BLOOD SPECIMEN Performed By: #### A LLBG ####[facility]ORYCLIA [id number] [place] [address] Glucose [Mass/Vol] 170 mg/dL High 60-105 [facility] Comment on above: Order Comment: Speci men Type: ARTERIAL BLOOD SPECIMEN Performed By: #### A LLBG ####[facility]ATORYCLIA [id number] [place] [address] HCO3 (Bld) [Moles/Vol] 20 mmol/L Low 22-26 [facility] Comment on above: Order Comment: Speci men Type: ARTERIAL BLOOD SPECIMEN Performed By: #### A LLBG ####[facility]ATORYCLIA [id number] [place] [address] Hematocrit (Bld) [Volume fraction] 36.6 % Normal 36.0-46.0 [facility] Comment on above: Order Comment: Speci men Type: ARTERIAL BLOOD SPECIMEN Performed By: #### A LLBG ####[facility]ORYCLIA [id number] [place] [address] Hemoglobin (Bld) [Mass/Vol] 11.9 g/dL Normal 11.5-15.5 [facility] Comment on above: Order Comment: Speci men Type: ARTERIAL BLOOD SPECIMEN Performed By: #### A LLBG ####[facility]ORYCLIA [id number] [place] [address] Methemoglobin (Bld) [Mass fraction] % Normal 0.0-1.5 [facility] Comment on above: Order Comment: Speci men Type: ARTERIAL BLOOD SPECIMEN Performed By: #### A LLBG ####[facility]ATORYCLIA [id number] [place] [address] O2 THERAPY Ventilator Normal [facility] Comment on above: Order Comment: Speci men Type: ARTERIAL BLOOD SPECIMEN Performed By: #### A LLBG ####[facility]ATORYCLIA [id number] [place] [address] Oxygen (Bld) [Partial pressure] 113 mm Hg High 85-95 [facility] Comment on above: Order Comment: Speci men Type: ARTERIAL BLOOD SPECIMEN Performed By: #### A LLBG ####[facility]ORYCLIA [id number] [place] [address] Oxygen adjusted to patient's actual temperature (Bld) [Partial pressure] 109 mmHg High 85-95 [facility] Comment on above: Order Comment: Speci men Type: ARTERIAL BLOOD SPECIMEN Performed By: #### A LLBG ####[facility]ORYCLIA [id number] [place] [address] OXYGEN SATURATION, ARTERIAL 98 % Normal 95-98 [facility] Comment on above: Order Comment: Speci men Type: ARTERIAL BLOOD SPECIMEN Performed By: #### A LLBG ####[facility]ORYCLIA [id number] [place] [address] Oxyhemoglobin (BldA) [Mass fraction] 96 % Normal 95-98 [facility] Comment on above: Order Comment: Speci men Type: ARTERIAL BLOOD SPECIMEN Performed By: #### A LLBG ####[facility]ORYCLIA [id number] [place] [address] pH (Bld) 7.17 [pH] Critically low 7.35-7.45 [facility] Comment on above: Order Comment: Speci men Type: ARTERIAL BLOOD SPECIMEN Performed By: #### A LLBG ####[facility]ORYCLIA [id number] [place] [address] pH adjusted to patient's actual temperature (Bld) 7.18 Critically low 7.35-7.45 [facility] Comment on above: Order Comment: Speci men Type: ARTERIAL BLOOD SPECIMEN Performed By: #### A LLBG ####[facility]ORYCLIA [id number] [place] [address] Potassium [Moles/Vol] 5.7 mmol/L High 3.5-5.0 [facility] Comment on above: Order Comment: Speci men Type: ARTERIAL BLOOD SPECIMEN Performed By: #### A LLBG ####[facility]ORYCLIA [id number] [place] [address] Sodium [Moles/Vol] 139 mmol/L Normal 136-144 [facility] Comment on above: Order Comment: Speci men Type: ARTERIAL BLOOD SPECIMEN Performed By: #### A LLBG ####[facility]ORYCLIA [id number] [place] [address] BRIEF OP NOTon 12-25-2020 BRIEF OP NOT Normal [facility] Basic metabolic 2000 panelon 12-25-2020 Anion gap [Moles/Vol] 7 mmol/L Low 9-18 [facility] Comment on above: Order Comment: Speci men Type: BLOOD SPECIMEN Performed By: #### 2 4321-2 ####[facility]ORYCLIA [id number] [place] [address] Calcium [Mass/Vol] 7.1 mg/dL Low 8.5-10.2 [facility] Comment on above: Order Comment: Speci men Type: BLOOD SPECIMEN Performed By: #### 2 4321-2 ####[facility]ORYCLIA [id number] [place] [address] Chloride [Moles/Vol] 115 mmol/L High 97-105 [facility] Comment on above: Order Comment: Speci men Type: BLOOD SPECIMEN Performed By: #### 2 4321-2 ####[facility]ORYCLIA [id number] [place] [address] CO2 [Moles/Vol] 23 mmol/L Normal 22-30 [facility] Comment on above: Order Comment: Speci men Type: BLOOD SPECIMEN Performed By: #### 2 4321-2 ####[facility]ORATORYCLIA [id number] [place] [address] Creatinine [Mass/Vol] 1.38 mg/dL High 0.58-0.96 [facility] Comment on above: Order Comment: Speci men Type: BLOOD SPECIMEN Performed By: #### 2 4321-2 ####[facility] LABORATORYCLIA [id number] [place] [address] GFR/1.73 sq M.predicted MDRD (S/P/Bld) [Vol rate/Area] 47 mL/min/{1.73_m2} Normal [facility] Comment on above: Order Comment: Speci [...] actual GFR. Performed By: #### 2 4321-2 ####[facility] LABORATORYCLIA [id number] [place] [address] Glucose [Mass/Vol] 115 mg/dL High 74-99 [facility] Comment on above: Order Comment: Speci men Type: BLOOD SPECIMEN Result Comment: The [place] [employer] (ADA) provides guidance for cutoff [...] Standards of Medical Care in Diabetes 2016, [place] [employer]. Diabetes Care. 2016.39(Suppl 1). Performed By: #### 2 4321-2 ####[facility] LABORATORYCLIA [id number] [place] [address] Potassium [Moles/Vol] 3.4 mmol/L Low 3.7-5.1 [facility] Comment on above: Order Comment: Speci men Type: BLOOD SPECIMEN Performed By: #### 2 4321-2 ####[facility]ORYCLIA [id number] [place] [address] Sodium [Moles/Vol] 145 mmol/L High 136-144 [facility] Comment on above: Order Comment: Speci men Type: BLOOD SPECIMEN Performed By: #### 2 4321-2 ####[facility]ORYCLIA [id number] [place] [address] Urea nitrogen [Mass/Vol] 18 mg/dL Normal 7-21 [facility] Comment on above: Order Comment: Speci men Type: BLOOD SPECIMEN Performed By: #### 2 4321-2 ####[facility]ORYCLIA [id number] [place] [address] Anion gap [Moles/Vol] 7 mmol/L Low 9-18 [facility] Comment on above: Order Comment: Speci men Type: BLOOD SPECIMEN Performed By: #### 2 777-1, , ####[facility]ORYCLIA [id number] [place] [address] Calcium [Mass/Vol] 7.7 mg/dL Low 8.5-10.2 [facility] Comment on above: Order Comment: Speci men Type: BLOOD SPECIMEN Performed By: #### 2 777-1, 74319-8, ####[facility] LABORATORYCLIA [id number] [place] [address] Chloride [Moles/Vol] 110 mmol/L High 97-105 [facility] Comment on above: Order Comment: Speci men Type: BLOOD SPECIMEN Performed By: #### 2 777-1, 67357-7, ####[facility]ORATORYCLIA [id number] [place] [address] CO2 [Moles/Vol] 22 mmol/L Normal 22-30 [facility] Comment on above: Order Comment: Speci men Type: BLOOD SPECIMEN Performed By: #### 2 777-1, 44982-7, ####[facility]ORATORYCLIA [id number] [place] [address] Creatinine [Mass/Vol] 1.77 mg/dL High 0.58-0.96 [facility] Comment on above: Order Comment: Speci men Type: BLOOD SPECIMEN Performed By: #### 2 777-1, , ####[facility]ORATORYCLIA [id number] [place] [address] GFR/1.73 sq M.predicted MDRD (S/P/Bld) [Vol rate/Area] 35 mL/min/{1.73_m2} Normal [facility] Comment on above: Order Comment: Speci [...] actual GFR. Performed By: #### 2 777-1, , ####[facility]ORATORYCLIA [id number] [place] [address] Glucose [Mass/Vol] 175 mg/dL High 74-99 [facility] Comment on above: Order Comment: Speci men Type: BLOOD SPECIMEN Result Comment: The [place] Diabetes Association (ADA) provides guidance for cutoff [...] Standards of Medical Care in Diabetes 2016, [place] [employer]. Diabetes Care. 2016.39(Suppl 1). Performed By: #### 2 777-1, 79976-8, ####[facility]ORATORYCLIA [id number] [place] [address] Potassium [Moles/Vol] 6.5 mmol/L Critically high 3.7-5.1 [facility] Comment on above: Order Comment: Speci men Type: BLOOD SPECIMEN Performed By: #### 2 777-1, , ####[facility]ORATORYCLIA [id number] [place] [address] Sodium [Moles/Vol] 139 mmol/L Normal 136-144 [facility] Comment on above: Order Comment: Speci men Type: BLOOD SPECIMEN Performed By: #### 2 777-1, , ####[facility]ORATORYCLIA [id number] [place] [address] Urea nitrogen [Mass/Vol] 20 mg/dL Normal 7-21 [facility] Comment on above: Order Comment: Speci men Type: BLOOD SPECIMEN Performed By: #### 2 777-1, , ####[facility]ORATORYCLIA [id number] [place] [address] CBC panel Auto (Bld)on 12-25 Erythrocyte distribution width (RBC) [Ratio] 14.9 % Normal 11.5-15.0 [facility] Comment on above: Order Comment: Speci men Type: BLOOD SPECIMEN Performed By: #### 5 8410-2 ####[facility]ORATORYCLIA [id number] [place] [address] Hematocrit (Bld) [Volume fraction] 40.5 % Normal 36.0-46.0 [facility] Comment on above: Order Comment: Speci men Type: BLOOD SPECIMEN Performed By: #### 5 8410-2 ####[facility]ORATORYCLIA [id number] [place] [address] Hemoglobin (Bld) [Mass/Vol] 12.3 g/dL Normal 11.5-15.5 [facility] Comment on above: Order Comment: Speci men Type: BLOOD SPECIMEN Performed By: #### 5 8410-2 ####[facility]ORATORYCLIA [id number] [place] [address] MCH (RBC) [Entitic mass] 29.2 pg Normal 26.0-34.0 [facility] Comment on above: Order Comment: Speci men Type: BLOOD SPECIMEN Performed By: #### 5 8410-2 ####[facility]ORATORYCLIA [id number] [place] [address] MCHC (RBC) [Mass/Vol] 30.4 g/dL Low 30.5-36.0 [facility] Comment on above: Order Comment: Speci men Type: BLOOD SPECIMEN Performed By: #### 5 8410-2 ####[facility]ORATORYCLIA [id number] [place] [address] MCV (RBC) [Entitic vol] 96.2 fL Normal 80.0-100.0 [facility] Comment on above: Order Comment: Speci men Type: BLOOD SPECIMEN Performed By: #### 5 8410-2 ####[facility]ORATORYCLIA [id number] [place] [address] Nucleated RBC (Bld) [#/Vol] 10*3/uL Normal <0.01 [facility] Comment on above: Order Comment: Speci men Type: BLOOD SPECIMEN Performed By: #### 5 8410-2 ####[facility]ORATORYCLIA [id number] [place] [address] Platelet mean volume (Bld) [Entitic vol] 10.5 fL Normal 9.0-12.7 [facility] Comment on above: Order Comment: Speci men Type: BLOOD SPECIMEN Performed By: #### 5 8410-2 ####[facility]ORATORYCLIA [id number] [place] [address] Platelets (Bld) [#/Vol] 239 10*3/uL Normal 150-400 [facility] Comment on above: Order Comment: Speci men Type: BLOOD SPECIMEN Performed By: #### 5 8410-2 ####[facility]ORATORYCLIA [id number] [place] [address] RBC (Bld) [#/Vol] 4.21 10*6/uL Normal 3.90-5.20 [facility] Comment on above: Order Comment: Speci men Type: BLOOD SPECIMEN Performed By: #### 5 8410-2 ####[facility]ORATORYCLIA [id number] [place] [address] WBC (Bld) [#/Vol] 18.45 10*3/uL High 3.70-11.00 [facility] Comment on above: Order Comment: Speci men Type: BLOOD SPECIMEN Performed By: #### 5 8410-2 ####[facility]ORATORYCLIA [id number] [place] [address] Erythrocyte distribution width (RBC) [Ratio] 14.8 % Normal 11.5-15.0 [facility] Comment on above: Order Comment: Speci men Type: BLOOD SPECIMEN Performed By: #### 5 8410-2 ####[facility]ORATORYCLIA [id number] [place] [address] Hematocrit (Bld) [Volume fraction] 43.4 % Normal 36.0-46.0 [facility] Comment on above: Order Comment: Speci men Type: BLOOD SPECIMEN Performed By: #### 5 8410-2 ####[facility]ORATORYCLIA [id number] [place] [address] Hemoglobin (Bld) [Mass/Vol] 13.7 g/dL Normal 11.5-15.5 [facility] Comment on above: Order Comment: Speci men Type: BLOOD SPECIMEN Performed By: #### 5 8410-2 ####[facility]ORATORYCLIA [id number] [place] [address] MCH (RBC) [Entitic mass] 29.3 pg Normal 26.0-34.0 [facility] Comment on above: Order Comment: Speci men Type: BLOOD SPECIMEN Performed By: #### 5 8410-2 ####[facility]ORATORYCLIA [id number] [place] [address] MCHC (RBC) [Mass/Vol] 31.6 g/dL Normal 30.5-36.0 [facility] Comment on above: Order Comment: Speci men Type: BLOOD SPECIMEN Performed By: #### 5 8410-2 ####[facility]ORATORYCLIA [id number] [place] [address] MCV (RBC) [Entitic vol] 92.9 fL Normal 80.0-100.0 [facility] Comment on above: Order Comment: Speci men Type: BLOOD SPECIMEN Performed By: #### 5 8410-2 ####[facility]ORATORYCLIA [id number] [place] [address] Nucleated RBC (Bld) [#/Vol] 10*3/uL Normal <0.01 [facility] Comment on above: Order Comment: Speci men Type: BLOOD SPECIMEN Performed By: #### 5 8410-2 ####[facility]ORATORYCLIA [id number] [place] [address] Platelet mean volume (Bld) [Entitic vol] 10.4 fL Normal 9.0-12.7 [facility] Comment on above: Order Comment: Speci men Type: BLOOD SPECIMEN Performed By: #### 5 8410-2 ####[facility]ORATORYCLIA [id number] [place] [address] Platelets (Bld) [#/Vol] 223 10*3/uL Normal 150-400 [facility] Comment on above: Order Comment: Speci men Type: BLOOD SPECIMEN Performed By: #### 5 8410-2 ####[facility]ORATORYCLIA [id number] [place] [address] RBC (Bld) [#/Vol] 4.67 10*6/uL Normal 3.90-5.20 [facility] Comment on above: Order Comment: Speci men Type: BLOOD SPECIMEN Performed By: #### 5 8410-2 ####[facility]ORATORYCLIA [id number] [place] [address] WBC (Bld) [#/Vol] 25.76 10*3/uL High 3.70-11.00 [facility] Comment on above: Order Comment: Speci men Type: BLOOD SPECIMEN Performed By: #### 5 8410-2 ####[facility]ORATORYCLIA [id number] [place] [address] CONSULT PROGon 12-25-2020 CONSULT PROG Normal [facility] CT BRAIN WO IVCONon 12-26-[address] BRAIN WO IVCON Normal [facility] CT KNEE WO IVCON RTon 2020 CT KNEE WO IVCON RT Normal [facility] CT PELVIS ORTHO WO IVCONon 0 12-25-2020 CT PELVIS ORTHO WO IVCON Normal [facility] Ethanol SerPl-mCncon 021 Ethanol [Mass/Vol] mg/dL Normal <11 [facility] Comment on above: Order Comment: Speci men Type: BLOOD SPECIMEN Performed By: #### 5 643-2 ####[facility]ORATORYCLIA [id number] [place] [address] HIGH SENSITIVITY TROPONIN To n 12-25-2020 HIGH SENSITIVITY MARIAM 15 ng/L High <12 [facility] Comment on above: Order Comment: [...] day MACE. Performed By: #### H STNT ####[facility]ORATORYCLIA [id number] [place] [address] IR EMBOLIZATION HEMORRHAGEon 12-25-2020 IR EMBOLIZATION HEMORRHAGE Normal [facility] Lactate (Bld) [Moles/Vol]on 12-25-2020 Lactate [Moles/Vol] 0.9 mmol/L Normal 0.5-2.2 [facility] Comment on above: Order Comment: Speci men Type: BLOOD SPECIMEN Performed By: #### 3 2693-4 ####[facility]ORATORYCLIA [id number] [place] [address] Lactate [Moles/Vol] 3.3 mmol/L High 0.5-2.2 [facility] Comment on above: Order Comment: Speci men Type: BLOOD SPECIMEN Performed By: #### 3 2693-4 ####[facility]ORATORYCLIA [id number] [place] [address] Lipase SerPl-cCncon 12-26-19 21 Lipase [Catalytic activity/Vol] 30 U/L Normal 16-61 [facility] Comment on above: Order Comment: Speci men Type: BLOOD SPECIMEN Performed By: #### 3 040-3 ####[facility]ORATORYCLIA [id number] [place] [address] Magnesium SerPl-mCncon 12-25 Magnesium [Mass/Vol] 2.2 mg/dL Normal 1.7-2.3 [facility] Comment on above: Order Comment: Speci men Type: BLOOD SPECIMEN Performed By: #### 2 777-1, 56295-3, 73140-8 ####[facility]ORATORYCLIA [id number] [place] [address] NUTRITIONon 12-25-2020 NUTRITION Normal [facility] PT panel Coag (PPP)on 2020 INR Coag (PPP) [Relative time] 1.1 {INR} Normal 0.9-1.3 [facility] Comment on above: Order Comment: Speci men Type: BLOOD SPECIMEN Result Comment: Elisabeth min K Antagonist (VKA) Therapeutic Range: INR 2 to 3 (Target INR of 2.5)Note: For patients treated with VKA drugs, such as warfarin, the [place] [employer] 2012 Guideline recommends [...] al. Chest 2012, 141:7S-47SNishimura RA, et al. [facility] 2017, 70: 252-289 Performed By: #### 3 4528-0, 73726-9 ####[facility]ORATORYCLIA [id number] [place] [address] PT Coag (PPP) [Time] 11.3 s Normal 9.7-13.0 [facility] Comment on above: Order Comment: Speci men Type: BLOOD SPECIMEN Performed By: #### 3 4528-0, 02968-2 ####[facility]ORATORYCLIA [id number] [place] [address] Phosphate SerPl-mCncon 12-25 Phosphate [Mass/Vol] 6.6 mg/dL High 2.7-4.8 [facility] Comment on above: Order Comment: Speci men Type: BLOOD SPECIMEN Performed By: #### 2 777-1, 53487-2, 73325-3 ####[facility]ORATORYCLIA [id number] [place] [address] STAPH AUREUS PCRon 1 S. aureus and MRSA panel LAVELL+probe (Nose) Abnormal Negative [facility] Comment on above: Order Comment: Speci men Type: SWAB OF INTERNAL NOSE Result Comment: Posi tive for Staphylococcus aureus by PCR.Negative for MRSA by PCR Performed By: #### S APCR ####[facility]ORATORYCLIA [id number] [place] [address] TOX SCREEN ROUT URon -10-2 021 Amphetamines Confirm (U) [Mass/Vol] Negative Normal Negative [facility] Comment on above: Order Comment: Speci men Type: URINE SPECIMEN Result Comment: Cuto ff threshold at 1000 ng/mL. Performed By: #### U TOX2 ####[facility]ORYCLIA [id number] [place] [address] BARBITURATES, URINE Negative Normal Negative [facility] Comment on above: Order Comment: Speci men Type: URINE SPECIMEN Result Comment: Cuto ff threshold at 200 ng/mL. Performed By: #### U TOX2 ####[facility]ATORYCLIA [id number] [place] [address] BENZODIAZEPINES, UR Positive Abnormal Negative [facility] Comment on above: Order Comment: Speci men Type: URINE SPECIMEN Result Comment: Cuto ff threshold at 200 ng/mL. Performed By: #### U TOX2 ####[facility]ATORYCLIA [id number] [place] [address] CANNABINOIDS,URINE Positive Abnormal Negative [facility] Comment on above: Order Comment: Speci men Type: URINE SPECIMEN Result Comment: Cuto ff threshold at 50 ng/mL. Performed By: #### U TOX2 ####[facility]ORYCLIA [id number] [place] [address] Cocaine Ql (U) Positive Abnormal Negative [facility] Comment on above: Order Comment: Speci men Type: URINE SPECIMEN Result Comment: Cuto ff threshold at 300 ng/mL. Performed By: #### U TOX2 ####[facility]ATORYCLIA [id number] [place] [address] Ethanol (U) [Mass/Vol] <11 Normal <11 [facility] Comment on above: Order Comment: Speci men Type: URINE SPECIMEN Performed By: #### U TOX2 ####[facility]ORYCLIA [id number] [place] [address] Opiates Screen Ql (U) Negative Normal Negative [facility] Comment on above: Order Comment: Speci men Type: URINE SPECIMEN Result Comment: Cuto ff threshold at 300 ng/mL. Performed By: #### U TOX2 ####[facility]ORATORYCLIA [id number] [place] [address] oxyCODONE cutoff Screen (U) [Mass/Vol] Negative Normal Negative [facility] Comment on above: Order Comment: Speci men Type: URINE SPECIMEN Result Comment: Cuto ff threshold at 100 ng/mL. Performed By: #### U TOX2 ####[facility]ORATORYCLIA [id number] [place] [address] Phencyclidine Ql (U) Negative Normal Negative [facility] Comment on above: Order Comment: Speci men Type: URINE SPECIMEN Result Comment: Cuto ff threshold at 25 ng/mL. Performed By: #### U TOX2 ####[facility] LABORATORYCLIA [id number] [place] [address] XR CHEST 1V FRONTALon 2020 XR CHEST 1V FRONTAL Normal [facility] XR CHEST 1V FRONTAL Normal [facility] XR FOOT 3V AP/LAT/OBL LTon 0 12-25-2020 XR FOOT 3V AP/LAT/OBL LT Normal [facility] XR FOOT 3V AP/LAT/OBL RTon 0 12-25-2020 XR FOOT 3V AP/LAT/OBL RT Normal [facility] aPTT PPPon 12-25-2020 aPTT Coag (PPP) [Time] 25.4 s Normal 23.0-32.4 [facility] Comment on above: Order Comment: Speci men Type: BLOOD SPECIMEN Performed By: #### 3 4528-0, 38148-3 ####[facility]ORATORYCLIA [id number] [place] [address] ALLIED HEALTHon 12-24-2020 ALLIED HEALTH Normal [facility] ALLIED HEALTH Normal [facility] ALLIED HEALTH Normal [facility] ALLIED HEALTH Normal [facility] CASE MGT INIT ASSESon 2020 CASE MGT INIT ASSES Normal [facility] CBC panel Auto (Bld)on 12-24 Erythrocyte distribution width (RBC) [Ratio] 14.5 % Normal 11.5-15.0 [facility] Comment on above: Order Comment: Speci men Type: BLOOD SPECIMEN Performed By: #### 5 8410-2 ####[facility] LABORATORYCLIA [id number] [place] [address] Hematocrit (Bld) [Volume fraction] 44.3 % Normal 36.0-46.0 [facility] Comment on above: Order Comment: Speci men Type: BLOOD SPECIMEN Performed By: #### 5 8410-2 ####[facility]ORATORYCLIA [id number] [place] [address] Hemoglobin (Bld) [Mass/Vol] 14.1 g/dL Normal 11.5-15.5 [facility] Comment on above: Order Comment: Speci men Type: BLOOD SPECIMEN Performed By: #### 5 8410-2 ####[facility]ORATORYCLIA [id number] [place] [address] MCH (RBC) [Entitic mass] 29.5 pg Normal 26.0-34.0 [facility] Comment on above: Order Comment: Speci men Type: BLOOD SPECIMEN Performed By: #### 5 8410-2 ####[facility]ORATORYCLIA [id number] [place] [address] MCHC (RBC) [Mass/Vol] 31.8 g/dL Normal 30.5-36.0 [facility] Comment on above: Order Comment: Speci men Type: BLOOD SPECIMEN Performed By: #### 5 8410-2 ####[facility]ORATORYCLIA [id number] [place] [address] MCV (RBC) [Entitic vol] 92.7 fL Normal 80.0-100.0 [facility] Comment on above: Order Comment: Speci men Type: BLOOD SPECIMEN Performed By: #### 5 8410-2 ####[facility]ORATORYCLIA [id number] [place] [address] Nucleated RBC (Bld) [#/Vol] 10*3/uL Normal <0.01 [facility] Comment on above: Order Comment: Speci men Type: BLOOD SPECIMEN Performed By: #### 5 8410-2 ####[facility]ORATORYCLIA [id number] [place] [address] Platelet mean volume (Bld) [Entitic vol] 10.3 fL Normal 9.0-12.7 [facility] Comment on above: Order Comment: Speci men Type: BLOOD SPECIMEN Performed By: #### 5 8410-2 ####[facility]ORATORYCLIA [id number] [place] [address] Platelets (Bld) [#/Vol] 280 10*3/uL Normal 150-400 [facility] Comment on above: Order Comment: Speci men Type: BLOOD SPECIMEN Performed By: #### 5 8410-2 ####[facility] LABORATORYCLIA [id number] [place] [address] RBC (Bld) [#/Vol] 4.78 10*6/uL Normal 3.90-5.20 [facility] Comment on above: Order Comment: Speci men Type: BLOOD SPECIMEN Performed By: #### 5 8410-2 ####[facility] LABORATORYCLIA [id number] [place] [address] WBC (Bld) [#/Vol] 29.56 10*3/uL High 3.70-11.00 [facility] Comment on above: Order Comment: Speci men Type: BLOOD SPECIMEN Performed By: #### 5 8410-2 ####[facility] LABORATORYCLIA [id number] [place] [address] CONFIRM BLOOD TYPEon 021 ABO A Normal [facility] Comment on above: Order Comment: Speci men Type: BLOOD SPECIMEN Performed By: #### C ONABO ####[facility] BLOOD BANKCLIA [id number] [place] [address] Rh Nom (Bld) Positive Normal [facility] Comment on above: Order Comment: Speci men Type: BLOOD SPECIMEN Performed By: #### C ONABO ####[facility] BLOOD BANKCLIA [id number] [place] [address] CONSULTon 12-24-2020 CONSULT Normal [facility] CONSULT Normal [facility] CONSULT Normal [facility] CT BRAIN WO IVCONon 12-25-19 CT BRAIN WO IVCON Normal [facility] CT FACIAL BONE/DAMARIS WO IVCON on 12-24-2020 CT FACIAL BONE/DAMARIS WO IVCON Normal [facility] Comprehensive metabolic 2000 panelon 12-24-2020 Albumin [Mass/Vol] 4.0 g/dL Normal 3.9-4.9 [facility] Comment on above: Order Comment: Speci men Type: BLOOD SPECIMEN Performed By: #### 2 4323-8, 3040-3 ####[facility] LABORATORYCLIA [id number] [place] [address] ALP [Catalytic activity/Vol] 67 U/L Normal 34-123 [facility] Comment on above: Order Comment: Speci men Type: BLOOD SPECIMEN Performed By: #### 2 4323-8, 3040-3 ####[facility] LABORATORYCLIA [id number] [place] [address] ALT With P-5'-P [Catalytic activity/Vol] 50 U/L High 7-38 [facility] Comment on above: Order Comment: Speci men Type: BLOOD SPECIMEN Performed By: #### 2 4323-8, 3040-3 ####[facility]ORATORYCLIA [id number] [place] [address] Anion gap [Moles/Vol] 10 mmol/L Normal 9-18 [facility] Comment on above: Order Comment: Speci men Type: BLOOD SPECIMEN Performed By: #### 2 4323-8, 3040-3 ####[facility] LABORATORYCLIA [id number] [place] [address] AST With P-5'-P [Catalytic activity/Vol] 117 U/L High 13-35 [facility] Comment on above: Order Comment: Speci men Type: BLOOD SPECIMEN Performed By: #### 2 4323-8, 3040-3 ####[facility]ORATORYCLIA [id number] [place] [address] Bilirubin [Mass/Vol] 0.5 mg/dL Normal 0.2-1.3 [facility] Comment on above: Order Comment: Speci men Type: BLOOD SPECIMEN Performed By: #### 2 4323-8, 3040-3 ####[facility] LABORATORYCLIA [id number] [place] [address] Calcium [Mass/Vol] 8.8 mg/dL Normal 8.5-10.2 [facility] Comment on above: Order Comment: Speci men Type: BLOOD SPECIMEN Performed By: #### 2 4323-8, 0-3 ####[facility] LABORATORYCLIA [id number] [place] [address] Chloride [Moles/Vol] 106 mmol/L High 97-105 [facility] Comment on above: Order Comment: Speci men Type: BLOOD SPECIMEN Performed By: #### 2 4323-8, 0-3 ####[facility] LABORATORYCLIA [id number] [place] [address] CO2 [Moles/Vol] 20 mmol/L Low 22-30 [facility] Comment on above: Order Comment: Speci men Type: BLOOD SPECIMEN Performed By: #### 2 4323-8, 0-3 ####[facility] LABORATORYCLIA [id number] [place] [address] Creatinine [Mass/Vol] 1.29 mg/dL High 0.58-0.96 [facility] Comment on above: Order Comment: Speci men Type: BLOOD SPECIMEN Performed By: #### 2 4323-8, 0-3 ####[facility] LABORATORYCLIA [id number] [place] [address] GFR/1.73 sq M.predicted MDRD (S/P/Bld) [Vol rate/Area] 50 mL/min/{1.73_m2} Normal [facility] Comment on above: Order Comment: Speci [...] GFR. Performed By: #### 2 4323-8, 0-3 ####[facility] LABORATORYCLIA [id number] [place] [address] Glucose [Mass/Vol] 123 mg/dL High 74-99 [facility] Comment on above: Order Comment: Speci men Type: BLOOD SPECIMEN Result Comment: The [place] Diabetes Association (ADA) provides guidance for cutoff [...] Standards of Medical Care in Diabetes 2016, [place] [employer]. Diabetes Care. 2016.39(Suppl 1). Performed By: #### 2 4323-8, 3039-3 ####[facility] LABORATORYCLIA [id number] [place] [address] Potassium [Moles/Vol] 5.3 mmol/L High 3.7-5.1 [facility] Comment on above: Order Comment: Speci men Type: BLOOD SPECIMEN Performed By: #### 2 4323-8, 3039-3 ####[facility] LABORATORYCLIA [id number] [place] [address] Protein [Mass/Vol] 6.4 g/dL Normal 6.3-8.0 [facility] Comment on above: Order Comment: Speci men Type: BLOOD SPECIMEN Performed By: #### 2 4323-8, 3039-3 ####[facility] LABORATORYCLIA [id number] [place] [address] Sodium [Moles/Vol] 136 mmol/L Normal 136-144 [facility] Comment on above: Order Comment: Speci men Type: BLOOD SPECIMEN Performed By: #### 2 4323-8, 3040-3 ####[facility] LABORATORYCLIA [id number] [place] [address] Urea nitrogen [Mass/Vol] 18 mg/dL Normal 7-21 [facility] Comment on above: Order Comment: Speci men Type: BLOOD SPECIMEN Performed By: #### 2 4323-8, 3040-3 ####[facility] LABORATORYCLIA [id number] [place] [address] ED NOTEon 12-24-2020 ED NOTE HNO ID: [id number] Author: Suzy Yi RN Service: Emergency Medicine Author Type: Registered Nurse Type: ED Notes Filed: 12/24/2020 9:20 PM Note Text: Xray at [facility] ED NOTE HNO ID: [id number] Author: Lisha Heath RN Service: Emergency Medicine Author Type: Registered Nurse Type: ED Notes Filed: 12/24/2020 9:07 PM Note Text: Pt moved into ICU bed. Ortho at placing traction. [facility] ED NOTE HNO ID: [id number] Author: Lisha Heath RN Service: Emergency Medicine Author Type: Registered Nurse Type: ED Notes Filed: 12/24/2020 8:39 PM Note Text: Dr. Neal and pharmacist at adjusting sedation [facility] ED NOTE HNO ID: [id number] Author: Lisha Heath RN Service: Emergency Medicine Author Type: Registered Nurse Type: ED Notes Filed: 12/24/2020 8:20 PM Note Text: Pt placed on LIWS via [facility] ED NOTE HNO ID: [id number] Author: Lisha Hetah RN Service: Emergency Medicine Author Type: Registered Nurse Type: ED Notes Filed: 12/24/2020 8:05 PM Note Text: OR notified not needed at this time [facility] ED NOTE HNO ID: [id number] Author: Lisha Heath RN Service: Emergency Medicine Author Type: Registered Nurse Type: ED Notes Filed: 12/24/2020 8:01 PM Note Text: Ortho at BS Normal [facility] ED NOTE HNO ID: [id number] Author: Lisha Heath RN Service: Emergency Medicine Author Type: Registered Nurse Type: ED Notes Filed: 12/24/2020 8:38 PM Note Text: FAST exam performed Normal [facility] ED PROV NOTEon 12-24-2020 ED PROV NOTE Normal [facility] Ethanol SerPl-mCncon 021 Ethanol [Mass/Vol] mg/dL Normal <11 [facility] Comment on above: Order Comment: Speci men Type: BLOOD SPECIMEN Performed By: #### 5 643-2 ####[facility] LABORATORYCLIA [id number] [place] [address] HISTORY PHYSICALon HISTORY PHYSICAL Normal [facility] Lipase SerPl-cCncon 12-25-19 21 Lipase [Catalytic activity/Vol] 45 U/L Normal 16-61 [facility] Comment on above: Order Comment: Speci men Type: BLOOD SPECIMEN Performed By: #### 2 4323-8, 3040-3 ####[facility] LABORATORYCLIA [id number] [place] [address] PT panel Coag (PPP)on 2020 INR Coag (PPP) [Relative time] Normal 0.9-1.3 [facility] Comment on above: Order Comment: Speci men Type: BLOOD SPECIMEN Result Comment: Elisabeth min K Antagonist (VKA) Therapeutic Range: INR 2 to 3 (Target INR of 2.5)Note: For patients treated with VKA drugs, such as warfarin, the [place] [employer] 2012 Guideline recommends [...] al. Chest 2012, 141:7S-47SNishimura RA, et al. [facility] 2017, 70: 252-289Clotted sample auto verifiedCorrected result: Previously reported as 1.1 on 12/24/2020 at 8:38 PM EDT. Performed By: #### 3 4528-0 ####[facility] LABORATORYCLIA [id number] [place] [address] PT Coag (PPP) [Time] Normal 9.7-13.0 [facility] Comment on above: Order Comment: Speci men Type: BLOOD SPECIMEN Result Comment: Clot kesha sample auto verifiedCorrected result: Previously reported as 10.9 sec on 12/24/2020 at 8:38 PM EDT. Performed By: #### 3 4528-0 ####[facility] LABORATORYCLIA [id number] [place] [address] SARS-CoV-2 RNA Resp Ql LAVELL+p robeon 12-24-2020 SARS-CoV-2 (COVID-19) RNA LAVELL+probe Ql (Resp) COVID 19 RESULT: SARS-CoV-2 (Agent of COVID-19) Not Detected by PCR. This test has been authorized by FDA under an Emergency Use Authorization (EUA) [facility] Comment on above: Performed By: #### 9 4500-6 ####[facility] LABORATORYCLIA [id number] [place] [id number] TYPE AND SCREENon 12-24-2020 ABO A [facility] Comment on above: Order Comment: Speci men Type: BLOOD SPECIMEN Performed By: #### T SCR ####[facility] BLOOD BANKCLIA [id number] [place] [address] HISTORICAL AB SCR STATUS Negative [facility] Comment on above: Order Comment: Speci men Type: BLOOD SPECIMEN Performed By: #### T SCR ####[facility] BLOOD BANKCLIA [id number] [place] [address] Rh Nom (Bld) Positive Normal [facility] Comment on above: Order Comment: Speci men Type: BLOOD SPECIMEN Performed By: #### T SCR ####[facility] BLOOD BANKCLIA [id number] [place] [address] TYPE AND SCREEN EXPIRATION 12/27/2020 23:59 Normal [facility] Comment on above: Order Comment: Speci men Type: BLOOD SPECIMEN Performed By: #### T SCR ####[facility] BLOOD BANKCLIA [id number] [place] [address] XR CHEST 1V FRONTALon 2020 XR CHEST 1V FRONTAL Normal [facility] XR ELBOW 2V AP/LAT LTon XR ELBOW 2V AP/LAT LT Normal [facility] XR FEMUR 2V AP/LAT LTon XR FEMUR 2V AP/LAT LT Normal [facility] XR FOOT 3V AP/LAT/OBL LTon 0 12-24-2020 XR FOOT 3V AP/LAT/OBL LT Normal [facility] XR FOOT 3V AP/LAT/OBL RTon 0 12-24-2020 XR FOOT 3V AP/LAT/OBL RT Normal [facility] XR FOREARM 2V AP/LAT LTon XR FOREARM 2V AP/LAT LT Normal [facility] XR PELVIS 1V APon 12-24-2020 XR PELVIS 1V AP Normal [facility] XR TIBIA FIBULA 2V AP/LAT LT on 12-24-2020 XR TIBIA FIBULA 2V AP/LAT LT Normal [facility] XR TIBIA FIBULA 2V AP/LAT RT on 12-24-2020 XR TIBIA FIBULA 2V AP/LAT RT Normal [facility] aPTT PPPon 12-24-2020 aPTT Coag (PPP) [Time] 25.1 s Normal 23.0-32.4 [facility] Comment on above: Order Comment: Speci men Type: BLOOD SPECIMEN Performed By: #### 1 4979-9 ####[facility] LABORATORYCLIA [id number] [place] [address] ANES PREOPon 12-08-2018 ANES PREOP HNO ID: [id number] Author: Dionna Green Service: Anesthesiology Author Type: [...] Height as of 12/03/18: 157.5 cm (5' 2"). Weight as of 12/03/18: 54 kg (119 lb). 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 - Heart Brother [place] age 63 - Heart Brother [place] age 53 - Heart Paternal Grandfather 56 [place] Social History: Social History Tobacco Use - [...] 1 tablet by mouth once daily. Dr Ruiz UMECLIDINIUM BROMIDE (INCRUSE ELLIPTA INHALATION) Inhale as [...] Mouth Opening Symptoms of Sleep Apnea: known "severe" JORGE Dentition: Dentures: upper/lower partial Additional Physical [...] December 08, 2018 TIME: 10:51 AM CSN: [id number] [facility] NURSING PROGon 12-08-2018 Protein mass conc HNO ID: [id number] Author: Libertad KapoorRnEstefany Delarosa RN Service: Nursing Author Type: Registered Nurse Type: Nursing Progress Note Filed: 12/08/2018 4:14 PM Note Text: Nursing Progress Note Patient Name: Nora Grande Patient Location: [facility] OR POOL/[facility] * __ Daily Note: 1612:patient ambulated to bathroom. Denies pain. Surgical site intact. Tolerating po. Phase 2 dcm This note was completed by: Libertad Delarosa RN [facility] Protein mass conc HNO ID: [id number] Author: Brooklyn KapoorRnEstefany Daley RN Service: Nursing Author Type: Registered Nurse [...] note was completed by: Brooklyn Daley RN [facility] OPERATIVE NOon 12-08-2018 OPERATIVE NO HNO ID: [id number] Author: Ml Guallpa Service: Neurosurgery Author Type: Physician Type: Operative Report Filed: 12/09/2018 1:31 PM Note Text: OPERATIVE/PROCEDURE REPORT LOG ID: [id number] SURGERY/PROCEDURE DATE: 12/08/2018 INCISION/PROCEDURE START TIME: 11:39 AM INCISION CLOSE/PROCEDURE END TIME: 12:36 PM SURGEON(S)/PROCEDURALI ST(S) AND ENGINEERING PROGRAM ANALYST(S): Surgeon(s) and Role: * Ml Guallpa - Primary * Eze (Res) Domenic - Resident - Assisting No Additional Staff [...] longus colli on either side and inserted [place] pins in the mid vertebral body of C6 and C7 5mm rostral and caudal from the disc space paralell with the endplates. The superior [place] pin location was confirmed by radiology. A distractor was placed across the pins and the microscope was brought into the field. I opened the annulus with a 15 blade and performed piecemeal discectomy with large curved curettes, pituitary's and 2mm Kerrisons. I drilled off the dorsal osteophytes using an AM 8 bit on the [employer] Peter drill. I drilled down to the dorsal disc space to the posterior longitudinal ligament which was opened with a curved curette in order to complete bilateral dorsal osteophytectomies with my 2mm Kerrison. ONce my decompression was complete. I then inserted my trials. An [id number] LDR Mobi-C disc replacement was inserted with good positioning confirmed on lateral and AP fluoroscopy. I then removed my [place] pins and waxed each hole. I irrigated [...] 09, 2018 TIME: 1:28 PM PAGER/CONTACT #: [facility] PT EDon 12-08-2018 PT ED HNO ID: [id number] Author: Libertad (Rn) TOMY Delarosa Service: Nursing [...] Signed By: Libertad Delarosa RN In Department: [facility] Potassiumon 12-08-2018 Potassium molar conc 3.4 mmol/L Low 3.7-5.1 [facility] XR CERVICAL 2V AP/LATon 11-17 XR CERVICAL [...] MD on Dec 08 2018 12:42PM EST [id number] [facility] XR VERIFY LEVEL [id number] 12-08-2018 XR VERIFY LEVEL C-SPINE-NB * * *Final Report* * * DATE OF EXAM: Dec 08 2018 11:52AM HCR [id number] - XR VERIFY LEVEL C-SPINE-NB / PROCEDURE REASON: PAIN * * * * Physician Interpretation * * * * RESULT: Accession number: [id number] COMPARISON: INDICATION: PAIN EXAMINATION: XR VERIFY LEVEL [...] MD on Dec 08 2018 11:58AM EST [id number] [facility] NURSING PROGon 12-04-2018 Protein mass conc HNO ID: [id number] Author: Mary Palma (Rn) TOMY Vallejo Service: [...] BIATRIAL ENLARGEMENT ABNORMAL ECG Confirmed by Hang GARCIA, CHANTEL ([id number]) on 12/04/2018 9:28:58 AM Ventricular Rate [...] Department of Cardiovascular Medicine Heart and Vascular Reading [facility] Cardiology 12/03/2018 Anesthesia Review: N/A Narrative: N/A [...] 2018 7:13 AM ADDENDUM Chart Check - COMPLETE Lynsey from Dr. Guallpa's office is aware of the low K+. Mary Vallejo RN December 07, 2018 2:09 PM [facility] HOSPon 12-03-2018 HOSP Patient:Dennis Grande MRN: Height:5' 2"(1.575 m) Weight:119 lb (53.978 kg) Outpatient Medications [...] Low POTA* 3.4 mmol/L 12/08/2018 5.1 3.7 AVELINO* 46.3 % 12/03/2018 46.0 36.0 Progress Notes ([facility]): Aggie Navarro [facility] 12/04/2018 11:04 AM Signed Yari from [facility] is calling regarding the patients Labs Would like to speak with nurse or PA regarding States she will only be in the office until noon today 12/04/18 [facility] [phone] Aggie Navarro [facility] December 04, 2018 11:04 AM Lynsey Carroll, TOMY, RN 12/04/2018 12:37 PM Signed Attempted to call [facility], left with this RN contact number. Will route encounter to [facility] to review labs. Lynsey Carroll RN December [...] attempted to return call to Mary from [facility]. No answer, left advising this RN notified CT of lab, will discuss with Dr. Guallpa. This RN contact number left on . [phone]: Mary returned call to this RN. Discussed patient potasium level and provided information as discussed with Jeremy Garay PA-C on 12/04/18, awaiting response from CT. Will notify [facility] if there is any further action required from [facility]. Lynsey Carroll RN December 07, 2018 10:36 AM Progress Notes ([facility]): Nikole Norris, VAULT MANAGER 12/03/2018 9:44 AM Signed Radiology Service Progress [...] IV DATA: Not applicable SIGNED BY: Nikole Norris RRT December 03, 2018 9:40 AM [facility] MRI CERVICAL SPINE WO IVCONo n 09-24-2018 MRI CERVICAL SPINE WO IVCON * * *Final Report* * * DATE OF EXAM: Sep 24 2018 7:30PM MDM [id number] - MRI CERVICAL SPINE WO IVCON [...] vertebrae with counting from the craniocervical junction. 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 Social History Main Topics Smoking status: Current Some Day Smoker Packs/day: 0.50 Years: 0.00 Start date: 08/18/1979 Smokeless tobacco: Never Used Alcohol use: No Drug use: No Sexual activity: Not Currently control/protection: Surgical Comment: Pt has had a Hysterectomy Social History Narrative Works in [employer]. Sometimes heavy lifting, continuous moving. She has an adult ADHD son, not doing well (seizures). Grandson, great grandson. The grandchildren are living with her. She has to take care of her son but he lives elsewhere. FAMILY HISTORY Problem Relation Age of Onset - Heart Father [place] - Breast Cancer Maternal Grandmother Ovarian as [...] DATE: August 04, 2018 TIME: 12:[address] [facility] NURSING PROGon 08-04-2018 Protein mass conc HNO ID: [id number] Author: Eleanor (Rn) TOMY Farnco Service: Nursing Author Type: Registered Nurse Type: Nursing Progress Note Filed: 08/04/2018 1:35 PM Note Text: Nursing Progress Note Patient Name: Nora Grande Patient Location: [place] Surgery/[place] Surgery __ 1313 Pt received in PACU on cart from Endo post injection. VSS. Snack given. This note was completed by: Eleanor Franco, RN 1406 IV removed. Site without redness or swelling. Homegoing instructions given. Pt verbalizes understanding. Pt able to stand and ambulate with steady gait. 1332 Pt discharged to home via wheelchair to car accomp by staff in stable cond. [facility] Protein mass conc HNO ID: [id number] Author: Tracie (Rn) TOMY Johnson Service: Nursing Author Type: Registered Nurse Type: Nursing Progress Note Filed: 08/04/2018 11:56 AM Note Text: Nursing Progress Note Patient Name: Nora Grande Patient Location: [place] Surgery/[place] Surgery __ pt ready for OR, call light in reach, no visitors to bedside per pt request. Needs HANDP and consent prior to OR This note was completed by: Tracie Johnson RN [facility] OPERATIVE NOon 08-04-2018 OPERATIVE NO HNO ID: [id number] Author: Zachary Bauman Service: Pain Management Author [...] DATE: August 04, 2018 TIME: 1:08 PM [facility] PT EDon 08-04-2018 PT ED HNO ID: [id number] Author: Eleanor Franco RN Service: Nursing Author Type: Registered [...] Signed By: Eleanor Franco RN In Department: [facility] SURGERY [facility] PT ED HNO ID: [id number] Author: Tracie Johnson RN Service: Nursing Author [...] Signed By: Tracie Johnson RN In Department: [facility] SURGERY [facility] XR FLUOROSCOPYon 08-04-2018 XR FLUOROSCOPY * * *Final Report* * * DATE OF EXAM: Aug 04 2018 1:05PM MDR [id number] - XR FLUOROSCOPY / PROCEDURE REASON: [...] procedure note for details regarding this procedure. Tobacco Educator: APPLE Transcribe Date/Time: Aug 04 2018 1:30P Dictated by : DENISE LUNA MD This examination was interpreted and the report reviewed and electronically signed by: DENISE LUNA MD on Aug 04 2018 1:31PM EST [id number] [facility] HOSPon 07-16-2018 HOSP Patient:Dennis Grande MRN: Height:5' 2"(1.575 m) Weight:120 lb (54.432 kg) Outpatient Medications [...] notes entered within the past 30 days [facility] Rx Refill: eRx Request for I NCRUSE ELLIPTA 62.5 MCG/INH INH AEPBon 12-20-2016 e-scripts messenger refill request [id number]`INCRUSE ELLIPTA 62.5 MCG/INH INH AEPB```1 Inhaler``1 puff dialy```0`09/17/2016`N o date sent`[facility] [place]*`[id number]`00 [id number]`INCRU SE ELLIPTA 62.5 MCG BLST W/DEV Quantity: 30 Blister Instructions: INHALE 1 (ONE) puff BY MOUTH EVERY DAY [facility] Work Phone: Office Visit: COPDon 017 Documentation of current medications (procedure) Done Invalid Interpretation Code [facility] Phone: Tobacco smoking status NHIS Current Invalid Interpretation Code [facility] [address] Phone: Tobacco use [facility] Former smoker Invalid Interpretation Code [facility] [address] [facility] [address] Phone: Lab Report: BNP,B-Type NATRI URETIC PEPTIDEon 11-13-2015 BNP 35.3 pg/mL Invalid Interpretation Code 0-100 [facility] [address] Phone: Lab Report: Basic Metabolic Profile (BMP)on 11-13-2015 Anion gap 6 mmol/L Invalid Interpretation Code 5-15 [facility] [address] [facility] [address] Phone: BUN/Creatinine Ratio 11.4 RATIO Invalid Interpretation Code 10-20 [facility] [address] [facility] [address] Phone: Calcium 8.6 mg/dL Invalid Interpretation Code 8.5-10.1 [facility] Work Phone: Chloride 106 mmol/L Invalid Interpretation Code 98-107 [facility] [address] Phone: CO2 31.0 mmol/L Invalid Interpretation Code 21.0-32.0 [facility] [address] [facility] [address] Phone: Creatinine 1.14 mg/dL Invalid Interpretation Code 0.55-1.20 [facility] [address] [facility] [address] Phone: eGFR (non-black) 52 mL/min/{1.73_m2} Low >60 [facility] Phone: eGFR (non-black) 62 mL/min/{1.73_m2} Invalid Interpretation Code >60 [facility] Work Phone: Glucose 105 mg/dL Invalid Interpretation Code 70-110 [facility] Work Phone: Potassium 4.1 mmol/L Invalid Interpretation Code 3.5-5.1 [facility] Work Phone: Sodium 143 mmol/L Invalid Interpretation Code 136-145 [facility] Work Phone: Urea nitrogen 13 mg/dL Invalid Interpretation Code 7-18 [facility] Work Phone: Office Visit: COPD & OSAon 0 11-13-2015 Smoking cessation education (procedure) yes Invalid Interpretation Code [facility] Work Phone: Lab Report: Iron+Iron Bindin g Capacityon 08-23-2015 Iron 38 ug/dL Low 50-170 [facility] Work Phone: iron binding capacity, total 347 ug/dL Invalid Interpretation Code 250-450 [facility] Work Phone: iron saturation percent, serum 11.0 % Low 15.0-55.0 [facility] Work Phone: Vital Signs Date Time Vital Sign Value Performing Clinician Facility 05-26-2025 15:31-0400 Diastolic blood pressure 85 mm[Hg] Dr. Claudine Ruiz DO Work Phone: [facility] 05-26-2025 15:31-0400 Systolic blood pressure 123 mm[Hg] Dr. Claudine Ruiz DO Work Phone: [facility] 05-19-2025 15:53-0400 Body temperature 98.1 [degF] Dr. Claudine Ruiz DO Work Phone: [facility] 05-19-2025 15:53-0400 Diastolic blood pressure 90 mm[Hg] Dr. Claudine Ruiz DO Work Phone: [facility] 05-19-2025 15:53-0400 Heart rate 82 /min Dr. Claudine Ruiz DO Work Phone: [facility] 05-19-2025 15:53-0400 Respiratory rate 16 /min Dr. Claudine Ruiz DO Work Phone: [facility] 05-19-2025 15:53-0400 SaO2% (BldA) [Mass fraction] 100 % Dr. Claudine Ruiz DO Work Phone: [facility] 05-19-2025 15:53-0400 Systolic blood pressure 144 mm[Hg] Dr. Claudine Ruiz DO Work Phone: [facility] 05-18-2025 14:10-0400 Body temperature 97.3 [degF] Dr. Claudine Ruiz DO Work Phone: [facility] 05-18-2025 14:10-0400 Diastolic blood pressure 73 mm[Hg] Dr. Claudine Ruiz DO Work Phone: [facility] 05-18-2025 14:10-0400 Heart rate 89 /min Dr. Claudine Ruiz DO Work Phone: [facility] 05-18-2025 14:10-0400 Respiratory rate 16 /min Dr. Claudine Ruiz DO Work Phone: [facility] 05-18-2025 14:10-0400 SaO2% (BldA) [Mass fraction] 99 % Dr. Claudine Ruiz DO Work Phone: [facility] 05-18-2025 14:10-0400 Systolic blood pressure 127 mm[Hg] Dr. Claudine Ruiz DO Work Phone: [facility] 05-17-2025 22:42-0400 Body height 157.[address] Claudine Ruiz DO Work Phone: [facility] 05-17-2025 22:42-0400 Body mass index (BMI) [Ratio] 25.9 kg/m2 Dr. Claudine Ruiz DO Work Phone: [facility] 05-17-2025 22:42-0400 Body weight 64.[address] Claudine Ruiz DO Work Phone: [facility] 10-29-2023 07:17-0400 Body height 157.48 cm [facility] 10-29-2023 07:17-0400 Body mass index (BMI) [Ratio] 26.9 kg/m2 Claudine [facility] 10-29-2023 07:17-0400 Body temperature 95.3 [degF] Claudine [facility] 10-29-2023 07:17-0400 [facility] 10-29-2023 07:17-0400 Diastolic blood pressure 105 mm[Hg] Claudine [facility] 10-29-2023 07:17-0400 Heart rate 59 /min [facility] 10-29-2023 07:17-0400 Respiratory rate 18 /min [facility] 10-29-2023 07:17-0400 Systolic blood pressure 183 mm[Hg] Claudine [facility] 10-21-2023 13:51-0500 Body height 157.48 cm Claud[facility] 10-21-2023 13:51-0500 Body weight 63.5 kg Claudine [facility] 10-21-2023 13:51-0500 Heart rate 80 /min Claud[facility] 10-21-2023 13:51-0500 SaO2% (BldA) [Mass fraction] 94 % [facility] 10-09-2023 08:48-0500 Diastolic blood pressure 109 mm[Hg] Claudine [facility] 10-09-2023 08:48-0500 Systolic blood pressure 172 mm[Hg] Claudine [facility] 10-09-2023 05:53-0500 Body height 162.56 cm [facility] 10-09-2023 05:53-0500 Body mass index (BMI) [Ratio] 24.7 kg/m2 [facility] 10-09-2023 05:53-0500 Body temperature 97.5 [degF] [facility] 10-09-2023 05:53-0500 Body weight 65.37 kg [facility] 10-09-2023 05:53-0500 Heart rate 70 /min [facility] 10-09-2023 05:53-0500 Respiratory rate 18 /min [facility] 10-09-2023 05:53-0500 SaO2% (BldA) [Mass fraction] 93 % [facility] 09-17-2016 10:25-0500 BMI (Body Mass Index) 29.81 kg/m2 Vanesa Hatfield [facility] Work Phone: 09-17-2016 10:25-0500 Body Temperature 98.2 [degF] Vanesa Hatfield [facility] Work Phone: 09-17-2016 10:25-0500 Body Temperature 98.24 [degF] Vanesa H[facility]field [facility] Work Phone: 09-17-2016 10:25-0500 BP Diastolic 93 mm[Hg] Vanesa Hatfield [facility] Work Phone: 09-17-2016 10:25-0500 BP Systolic 135 mm[Hg] Vanesa Hatfield [facility] Work Phone: 09-17-2016 10:25-0500 BSA (Body Surface Area) 1.75 m2 Vanesa Hatfield [facility] Work Phone: 09-17-2016 10:25-0500 Height 157.48 cm Vanesa Hatfield [facility] Work Phone: 09-17-2016 10:25-0500 Pulse (Heart Rate) 67 /min Vanesa Hatfield CNP [facility] Work Phone: 09-17-2016 10:25-0500 Pulse Oximetry 95 % Vanesa Hatfield CNP [facility] Work Phone: 09-17-2016 10:25-0500 Respiratory Rate 18 /min Vanesa Hatfield CNP [facility] Work Phone: 09-17-2016 10:25-0500 Weight 73.94 kg Vanesa Hatfield CNP [facility] Work Phone: 09-17-2016 10:25-0500 Weight 74.09 kg Vanesa Hatfield CNP [facility] Work Phone: Encounters Encounter Date Encounter Type Care Provider Facility Start: 07-11-2025 ambulatory Connor [place] Facility :[facility] Start: 06-29-2025 ambulatory [facility] Facility: [facility] Start: 06-06-2025 ambulatory Claudine [facility] Facility: [facility] Start: 06-02-2025 End: 06-02-2025 ambulatory [facility] Facility:[facility] Start: 05-26-2025 End: 05-26-2025 Patient encounter procedure Connor Tadeo DO -[facility] Work Phone: Start: 05-26-2025 End: 05-26-[address] Claudine Ruiz DO Work Phone: [facility] Start: 05-19-2025 Non-patient / Non-visit Dr. Yordan Newman MD -[facility] Work Phone: Start: 05-18-2025 ambulatory Connor Tadeo Facility :[facility] Start: 05-18-2025 Non-patient / Non-visit Connor Tadeo DO [facility] Start: 05-18-2025 Non-patient / Non-visit Dr. Yordan Newman MD -[facility] Work Phone: Start: 05-17-2025 Non-patient / Non-visit Connor Tadeo DO [facility] Start: 05-17-2025 Non-patient / Non-visit Dr. Jaylen Mike MD -[facility] Work Phone: Start: 05-16-2025 End: 05-19-2025 Evaluation and management of inpatient Dr. Yordan Newman MD -[facility] Work Phone: Start: 05-16-2025 ambulatory Claudine [place] Facility: [facility] Start: 05-16-2025 Non-patient / Non-visit Dr. Zachary Coffey MD -[facility] Work Phone: Start: 05-16-2025 End: 05-16-2025 ambulatory CHASE Rose CRAWFORD Facility:[facility] Start: 03-02-2025 End: 03-02-[address] Claudine Ruiz DO Work Phone: -[facility]patient [facility] Start: 03-02-2025 End: 03-02-[address] Claudine Ruiz DO -[facility] Work Phone: Start: 03-02-2025 End: 03-02-2025 ambulatory Claudine Ruiz Facility:[facility] Start: 11-02-2024 End: 11-02-2024 ambulatory Claudine Ruiz Facility:[facility] Start: 07-02-2024 End: 07-02-2024 ambulatory Claudine Ruiz Facility:[facility] Start: 11-10-2023 End: 11-10-2023 [facility] Start: 11-10-2023 End: 11-10-2023 Patient encounter procedure Claudine [facility]nee [facility] Work Phone: Start: 10-29-2023 End: 10-29-2023 Patient encounter procedure Claudine Ruiz [facility] Work Phone: Start: 10-23-2023 Non-patient / Non-visit Claudine [place] [facility] Start: 10-21-2023 End: 10-21-2023 ambulatory Claudine Ruiz [facility] Work Phone: Start: 10-21-2023 End: 10-21-2023 Patient encounter procedure Claudine GARCIA [facility]-Outpatient Breast Imaging Work Phone: Start: 10-15-2023 End: 10-15-2023 ambulatory Claudine GARCIA [facility] Work Phone: Start: 10-15-2023 End: 10-15-2023 Patient encounter procedure Claudine GARCIA [facility]-Pulmonary Services/Neurology Work Phone: Start: 10-09-2023 End: 10-09-2023 Patient encounter procedure Claudine GARCIA [facility] Work Phone: Start: 08-26-2022 End: 08-26-2022 ambulatory [facility] Work Phone: Start: 08-26-2022 End: 08-26-[address] [facility]-Outpatient Breast Imaging Start: 06-05-2022 End: 06-05-2022 ambulatory [facility] Work Phone: Start: 06-05-2022 End: 06-05-[address] [facility]-Cat Scan, [facility] Start: 12-08-2018 End: 12-08-2018 Patient encounter procedure [facility] Start: 09-24-2018 Patient encounter procedure [facility] Start: 08-04-2018 End: 08-04-2018 Patient encounter procedure [facility] Procedures Date Procedure Procedure Detail Performing Clinician Start: 05-19-[address] Claudine Ruiz DO Work Phone: Start: 05-19-2025 Serum inorganic phosphate measurement Dr. Claudine Ruiz DO Work Phone: Start: 05-18-2025 End: 05-18-[address] Claudine Ruzi DO Work Phone: Start: 05-18-[address] Claudine Ruiz DO Work Phone: Start: 05-18-2025 End: 05-18-2025 Fluoroscopy guided endoscopic retrograde cholangiopancreatography Dr. Claudine Ruiz DO Work Phone: Start: 05-17-[address] Claudine Ruiz DO Work Phone: Start: 05-17-[address] Claudine Ruiz DO Work Phone: Start: 05-16-2025 Urnls dip stick/tablet reagent auto microscopy Dr. Claudine Ruiz DO Work Phone: Start: 05-16-2025 US scan of gallbladder Dr. Claudine Ruiz DO Work Phone: Start: 05-16-2025 Ct abdomen & pelvis w/contrast material Dr. Claudine Ruiz DO Work Phone: Start: 05-16-2025 Measurement of occult blood in stool specimen using immunoassay Dr. Claudine Ruiz DO Work Phone: Start: 03-02-[address] Claudine Ruiz DO Work Phone: Start: 10-21-2023 Screening mammography Claudine GARCIA Start: 10-15-2023 CT of chest Claudine GARCIA Start: 08-26-2022 Screening mammography Start: 06-05-2022 CT of chest Start: 2021 Antibody screen Comment on above: Order Comment: Specimen Type: BLOOD SPEC IMEN Performed By: #### T SCR, %MADI ####[facility] BLOOD BANKCLIA [id number] [place] [address] Start: 01-14-2021 Antibody screen Comment on above: Order Comment: Specimen Type: BLOOD SPEC IMEN Performed By: #### T SCR ####[facility] BLOOD BANKCLIA [id number] [place] [address] Start: 12-28-2020 Antibody screen Comment on above: Order Comment: Specimen Type: BLOOD SPEC IMEN Performed By: #### T SCR ####[facility] BLOOD BANKCLIA [id number] [place] [address] Start: 12-24-2020 Antibody screen Comment on above: Order Comment: Specimen Type: BLOOD SPEC IMEN Performed By: #### T SCR ####[facility] BLOOD BANKCLIA [id number] [place] [address] Start: 09-17-2016 End: 12-20-2016 BWA Vanesa Hatfield [employer] Work Phone: Start: 09-17-2016 End: 12-20-2016 Follow Up Appt 3 months Vanesa Wildl er [employer] Work Phone: Start: 09-17-2016 End: 12-20-2016 Pulmonary Function Test - complete Vanesa Hatfield [employer] Work Phone: Start: 11-13-2015 End: 11-13-2015 *BMP Vanesa Hatfield [employer] Work Phone: Start: 11-13-2015 End: 11-13-2015 BNP Vanesa Hatfield [employer] Work Phone: Start: 11-13-2015 End: 11-13-2015 Follow Up Appt 3 months Vanesa Wildl er [employer] Work Phone: Start: 11-13-2015 End: 11-13-2015 Tte w/doppler, complete Vanesa Wildl er [employer] Work Phone: Start: 08-16-2015 End: 08-24-2015 Iron and Iron binding capacity panel - Serum or Plasma Chemo Arreaga MA H/O: hysterectomy Hx of hysterectomy History of decompres kimo of median nerve History of carpal tunnel release of both wrists Plan of Treatment Date Care Activity Detail Author Start: 06-02-2025 CT of chest Low Dose CT Lung Screening [facility] Start: 06-02-2025 Patient encounter procedure Registered Clinical -Cat [facility] Work Phone: Start: 05-21-[address] [facility] Start: 05-20-[address] [facility] Start: 05-19-[address] [facility] Start: 05-19-[address] [facility] Start: 05-19-2025 Serum inorganic phosphate measurement [facility] Start: 05-18-[address] [facility] Start: 05-18-2025 [facility] Start: 05-17-[address] [facility] Start: 05-16-2025 End: 05-16-2025 Following clinical pathway protocol [facility] Start: 05-16-2025 Assessment of risk of venous thromboembolism [facility] Start: 05-16-2025 Insertion of catheter into peripheral vein [facility] Start: 05-16-[address] [facility] Start: 05-16-2025 Providing care according to standard [facility] Start: 05-16-2025 Provision of activity privileges [facility] Start: 05-16-2025 Referral to gastroenterology service [facility] Start: 05-16-2025 [facility] Start: 05-16-[address] [facility] Start: 05-16-[address] [facility] Start: 02-05-2017 End: 02-05-2017 Appointment Appointment [facility] Phone: Start: 09-17-2016 End: 12-20-2016 ELVIA GAN [facility] Phone: Start: 09-17-2016 End: 12-20-2016 Follow Up Appt 3 months Follow Up Appt 3 months [facility] Phone: Start: 09-17-2016 End: 12-20-2016 Pulmonary Function Test - complete Pulmonary Function Test - complete [facility] Phone: Start: 01-12-2016 End: 01-12-2016 *NIYAH *NIYAH [facility] Phone: Start: 01-12-2016 End: 01-12-2016 *CBC with Differential *CBC with Differential [facility] Phone: Start: 01-12-2016 End: 01-12-2016 *CELIAC Celiac Disease AB [id number] *CELIAC Celiac Disease AB [id number] [facility] Phone: Start: 01-12-2016 End: 01-12-2016 *CMP Complete Metabolic Panel *CMP Complete Metabolic Panel [facility] Phone: Start: 01-12-2016 End: 01-12-2016 C reactive protein (hsCRP) *CRP - C-Reative Protein [facility] Phone: Start: 01-12-2016 End: 01-12-2016 Erythrocyte sedimentation rate *Sedimentation Rate (ESR) [facility] Phone: Start: 01-12-2016 End: 01-12-2016 Ferritin *Ferritin [facility] Phone: Start: 01-12-2016 End: 01-12-2016 Lipid panel [AGGREGATE] *Lipid Profile [facility] Phone: Start: 01-12-2016 End: 01-12-2016 Thyroid stimulating hormone (TSH) *TSH [facility] Phone: Start: 01-12-2016 End: 01-12-2016 Urinalysis complete panel - Urine *UAC- Urinalysis, Complete w/ Micro [facility] Phone: Start: 11-13-2015 End: 11-13-2015 *BMP *BMP [facility] Phone: Start: 11-13-2015 End: 11-13-2015 BNP *Brain Natriuretic Peptide BNP [facility] Phone: Start: 11-13-2015 End: 11-13-2015 Follow Up Appt 3 months Follow Up Appt 3 months [facility] Phone: Start: 11-13-2015 End: 11-13-2015 Tte w/doppler, complete Echo Complete with Color Flow [facility] Phone: Start: 08-16-2015 End: 08-24-2015 Iron and Iron binding capacity panel - Serum or Plasma *IBC Iron & Total Iron Binding Capacity [facility] Phone: Start: 08-15-2015 End: 08-15-2015 [facility] Phone: Start: 08-15-2015 End: 08-15-2015 Follow Up Appt 3 months Follow Up Appt 3 months [facility] Phone: Start: 08-15-2015 End: 08-15-2015 Pulmonary Function Test - complete Pulmonary Function Test - complete [facility] Phone: Start: 08-15-2015 End: 08-15-2015 Pulmonary stress test/simple Pulmonary stress testing; simple (eg, 6-minute walk) [facility] Phone: Alanine aminotransfe rase [Enzymatic activity/volume] in Serum or Plasma [facility] Alanine aminotransfe rase [Enzymatic activity/volume] in Serum or Plasma [facility] Alanine aminotransfe rase [Enzymatic activity/volume] in Serum or Plasma [facility] Albumin [Mass/volume ] in Serum or Plasma [facility] Albumin [Mass/volume ] in Serum or Plasma [facility] Albumin [Mass/volume ] in Serum or Plasma [facility] Alkaline phosphatase [Enzymatic activity/volume] in Serum or Plasma [facility] Alkaline phosphatase [Enzymatic activity/volume] in Serum or Plasma [facility] Alkaline phosphatase [Enzymatic activity/volume] in Serum or Plasma [facility] Anion gap in Serum o r Plasma [facility] Anion gap in Serum o r Plasma [facility] Anion gap in Serum o r Plasma [facility] Bilirubin, total measurement [facility] Bilirubin, total measurement [facility] Bilirubin, total measurement [facility] Bilirubin.direct [Mass/volume] in Serum or Plasma [facility] Bilirubin.direct [Mass/volume] in Serum or Plasma [facility] Bilirubin.direct [Mass/volume] in Serum or Plasma [facility] BUN/Creatinine ratio [facility] BUN/Creatinine ratio [facility] BUN/Creatinine ratio [facility] Calcium [Mass/volume ] in Serum or Plasma [facility] Calcium [Mass/volume ] in Serum or Plasma [facility] Calcium [Mass/volume ] in Serum or Plasma [facility] Carbon dioxide, tota l [Moles/volume] in Central venous blood [facility] Carbon dioxide, tota l [Moles/volume] in Central venous blood [facility] Carbon dioxide, tota l [Moles/volume] in Central venous blood [facility] Creatinine [Mass/vol ume] in Serum or Plasma [facility] Creatinine [Mass/vol ume] in Serum or Plasma [facility] Creatinine [Mass/vol ume] in Serum or Plasma [facility] Erythrocyte mean corpuscular volume determination [facility] Erythrocyte mean corpuscular volume determination [facility] Erythrocyte mean corpuscular volume determination [facility] Exercise tolerance test [facility] Glucose [Mass/volume ] in Serum or Plasma [facility] Glucose [Mass/volume ] in Serum or Plasma [facility] Glucose [Mass/volume ] in Serum or Plasma [facility] Hematocrit [Volume Fraction] of Blood [facility] Hematocrit [Volume Fraction] of Blood [facility] Hematocrit [Volume Fraction] of Blood [facility] Hemoglobin [Mass/vol ume] in Blood [facility] Hemoglobin [Mass/vol ume] in Blood [facility] Hemoglobin [Mass/vol ume] in Blood [facility] Leukocytes [#/volume ] in Blood [facility] Leukocytes [#/volume ] in Blood [facility] Leukocytes [#/volume ] in Blood [facility] Magnesium measurement [facility] Mean corpuscular hem oglobin concentration determination [facility] Mean corpuscular hem oglobin concentration determination [facility] Mean corpuscular hem oglobin concentration determination [facility] Mean corpuscular hem oglobin determination [facility] Mean corpuscular hem oglobin determination [facility] Mean corpuscular hem oglobin determination [facility] Measurement of renal function [facility] Measurement of renal function [facility] Measurement of renal function [facility] Neutrophil count [facility] Neutrophil count [facility] Neutrophil count [facility] Neutrophil percent differential count [facility] Neutrophil percent differential count [facility] Neutrophil percent differential count [facility] Platelets [#/volume] in Blood [facility] Platelets [#/volume] in Blood [facility] Platelets [#/volume] in Blood [facility] Potassium measurement [facility] Potassium measurement [facility] Potassium measurement [facility] Red blood cell count [facility] Red blood cell count [facility] Red blood cell count [facility] Red cell distributio n width determination [facility] Red cell distributio n width determination [facility] Red cell distributio n width determination [facility] Serum chloride measurement [facility] Serum chloride measurement [facility] Serum chloride measurement [facility] Sodium measurement [facility] Sodium measurement [facility] Sodium measurement [facility] Total protein measurement [facility] Total protein measurement [facility] Total protein measurement [facility] Urea nitrogen [Mass/ volume] in Serum or Plasma [facility] Urea nitrogen [Mass/ volume] in Serum or Plasma [facility] Urea nitrogen [Mass/ volume] in Serum or Plasma [facility] [place] Immunization Date Immunization Notes Care Provider Randi krishnan 05-17-2025 influenza, high dose seasonal, preservative-free Dr. Claudine Ruiz DO Work Phone: [facility] 12-24-2020 tetanus toxoid, redu rachel diphtheria toxoid, and acellular pertussis vaccine, adsorbed [facility] Payers Date Payer Category Payer Medicaid [id number] 2024 Self-pay [id number] 2024 Medicare [id number] 2020 Unknown [id number] 2016 Medicare [id number] 2015 Unknown [facility] [id number] Unknown [id number] Unknown [id number] 2.16.8 40.1.510395.3.579.2.462 Unknown [id number] 2.16.8 40.1.831314.3.579.2.462 Unknown [id number] 2.16.8 40.1.919365.3.579.2.462 Unknown [id number] 2.16.8 40.1.539625.3.579.2.462 Unknown [id number] 2.16.8 40.1.769417.3.579.2.462 Unknown [id number] 2.16.8 40.1.501023.3.579.2.462 Unknown [id number] 2.16.8 40.1.182847.3.579.2.462 Unknown [id number] 2.16.8 40.1.694699.3.579.2.462 Unknown [id number] 2.16.8 40.1.718057.3.579.2.462 Unknown [id number] 2.16.8 40.1.226514.3.579.2.462 Unknown [id number] 2.16.8 40.1.661747.3.579.2.462 Unknown [id number] 2.16.8 40.1.992723.3.579.2.462 Unknown [id number] 2.16.8 40.1.513889.3.579.2.462 Unknown [id number] 2.16.8 40.1.289325.3.579.2.462 Unknown [id number] 2.16.8 40.1.904586.3.579.2.462 Social History Date Type Detail Facility Start: 12-24-2020 End: 10-29-2023 Tobacco smoking status ORIS Unknown if ever smoked [facility] Start: 12-24-2020 [facility] Start: 12-24-[address] [facility] Start: 09-10-[address] [facility] Start: 12-24-[address] [facility] Start: 1955 Sex Assigned At Female [facility] Start: 07-02-2024 End: 05-17-2025 Tobacco smoking status NHIS Smokes tobacco daily (finding) [facility] Not [facility] Medical Equipment Procedure Code Equipment Code Equipment Origin al Text Equipment Identifier Dates ERCP (endoscopic retrograde cholangiopancreatog aurelio) STENT,ADVANIX PANC [id number] FDA Start: 05-18-2025 ERCP (endoscopic retrograde cholangiopancreatog aurelio) STENT,ADVANIX PANC [id number] FDA Start: 05-18-2025 coil interlock vortix fibered [facility] FDA Start: 12-25-2020 coil vortx [facility] fiber embolization coil FDA Start: 12-25-2024 coil interlock vortix fibered [facility] FDA Start: 12-25-2020 coil vortx [facility] fiber embolization coil FDA Start: 12-25-2024 coil interlock vortix fibered [facility] FDA Start: 12-25-2020 coil vortx [facility] fiber embolization coil FDA Start: 12-25-2024 Goals Date Patient Goal Desired Activity /State Functional Status Date Assessment Result Facility 05-19-2025 Functional status Ambulates [facility] Work Phone: 05-18-2025 Functional status Ambulates [facility] Work Phone: Mental Status Date Assessment Result Facility 05-19-2025 Cognitive function Voice/Name [facility] Work Phone: 05-18-2025 Cognitive function Voice/Name [facility] Work Phone: 05-18-2025 Cognitive function Appropriate [facility] Work Phone: Clinical Notes 12-25-2020 to 05-26-2025 Note Date & Type Note Facility 05-26-2025 Progress note [facility] 05-26-2025 Progress note Note Date/Time May 26, 2025 2:51pm [facility] [address] [place] [address] OFFICE VISIT Date of Service: 05/26/25 MR#: [id number] Acct: [id number] Name: NORA GRANDE Rep #: [id number] : 1955 Provider: Connor Tadeo DO Age/Sex: 70/F Location: [facility] Status: Signed Intake Vital Signs 05/17/25 22:42 05/26/25 15:31 05/26/25 15:31 Height 5 ft 2 in BP 110/79 123/85 H Blood Pressure Location Lt brachial Lt brachial Position Sitting Standing Intake Visit Reasons: HOSP FU Cholelithiasis Allergies codeine Allergy (Verified 05/16/25 13:56) Unknown ciprofloxacin (From Cipro) Adverse Reaction (Verified 05/16/25 13:56) Vomiting Medications ?Medication ?Instructions ?Recorded ?Confirmed ?Type clonazepam 1 mg tablet 1 mg PO QHS anxiety 10/18/16 05/26/25 History multivitamin,xe-jsmn-xgauzitb 27 1 tab PO DAILY supple ment 10/18/16 05/26/25 History mg-0.4 mg tablet buspirone 15 mg tablet 15 mg PO BID mood 10/09/23 1 History cyclobenzaprine 10 mg tablet 10 mg PO BID muscle spasm 10/09/23 05/26/25 History olanzapine 15 mg tablet 15 mg PO QHS mood 10/09/23 1 History duloxetine 30 mg capsule,delayed 30 mg PO QDAY mood 05/26/25 History release duloxetine 60 mg capsule,delayed 60 mg PO QDAY mood 05/26/25 History release losartan 50 mg tablet 50 mg PO QDAY bp 10/29/23 History potassium chloride 20 mEq 20 meq PO TID supplement 05/26/25 History tablet,extended release(part/cryst) albuterol sulfate 90 mcg/actuation 2 puff inhalation Q 6H PRN 05/04/24 05/26/25 Rx aerosol inhaler shortness of breath or wheez ing #18 grams meclizine 25 mg tablet 50 mg PO BID vertigo 2 4 05/26/25 History fluticasone fur. 200 mcg-umeclid 1 inh inhalation MYRON Y sob #60 ea 11/22/24 05/26/25 Rx 62.5 mcg-vilant 25 mcg inhalat.powder (Trelegy Ellipta) sennosides 8.6 mg-docusate sodium 1 tab PO DAILY #30 t abs 05/26/25 05/26/25 Rx 50 mg tablet (Stimulant [...] the office today for hospital follow up. [facility] hospitalization 05.16.25 - 05.19.25 pt presents with abdominal pain. reports constipation and dark blood in stool. abd/pelvis CT 05.16.25 Interval development of moderate right intrahepaticductal dilatation of uncertain etiology. No definitive obstructing mass or stonein the right hepatic duct. Left biliary intrahepatic [...] 05.17.25 Gall bladder calculi. No cholecystitis. Relatively prominentextra-hepatic biliary tracts with prominent pancreatic duct showing no intraluminal filling defects or pancreatic head masses, possibly age related. ERCP .09.11 A single localized biliary stricture was found in the lower third of the main bile duct. The stricture was benign appearing, fibrotic and indeterminate. The entire main bile duct was dilated, acquired. Choledocholithiasis was found. Complete removal was accomplished by biliary sphincterotomy and balloon extraction. One temporary stent was placed intothe ventral pancreatic duct. A biliary sphincterotomy was performed. The biliarytree was swept. Cells for cytology obtained in the lower third of the mainduct. OV 10.9.25 pt reports that since hospitalization she has been feeling sick; reports nausea, lightheadedness, fatigue, "tingly", and dizziness. Pt reports decreased appetite as well. * Biliary issues:?Reports no recurrence of abdominal pain since the procedure, and has been tolerating a regular diet. States the temporary pancreatic duct stent is scheduled for removal. * Pulmonary issues:?Complains of intermittent shortness of breath and dizziness for the past week. Describes the shortness of breath as mild and occurring with exertion, such as walking short distances. Denies chest pain, palpitations, or cough. ROS Const Constitutional: Positive for fatigue; No fever(s) or weight change ENT ENT: No difficulty swallowing Gastro GI: Positive for abdominal pain, bloating, change in bowel habits, constipation,excessive flatus and nausea/dyspepsia; No belching, change in stool character, coffee ground emesis, cramping, diarrhea, heartburn, difficulty swallowing, feeling full early, incontinent of stools, Vomiting blood/hematemesis, Blood in stool, loose stools, Black,tarry stools, pain with swallowing, vomiting or other Musc Musculoskeletal: Positive for joint pain, back pain, muscle weakness, numbness and tingling Skin Skin: No yellowing of the eye or itchy eyes Neuro Neurology: Positive for numbness and tingling Psych Psychiatric: Positive for anxiety and Positive for depression Endo Endocrine: Positive for fatigue; No weight change Aller/Imm Allergy/Immunologic: No itchy eyes Avelino/Lymp Hematologic/Lymphatic: Positive for easy bruising; No easy bleeding Exam Const General: cooperative, healthy appearing, comfortable, no acute distress, well developed and well groomed Nutritional Appearance: well nourished Orientation: oriented x3 Eyes Sclera: sclerae normal Resp Effort & Inspection: normal respiratory effort Auscultation: Bilateral: Clear to Auscultation Cardio Rate: regular rate Rhythm: regular rhythm Heart Sounds: S1 normal and S2 normal GI Inspection: normal to inspection Auscultation: normal bowel sounds Percussion: normal to percussion Palpation: no hepatosplenomegaly Assessment and Plan Assessment and Plan (1) Abnormal finding on imaging of liver: Status: Acute (2) Cholelithiases: Status: Acute (3) COPD (chronic obstructive pulmonary disease): Status: Chronic Plan: * Choledocholithiasis/Biliary Stricture:?Status post-ERCP with stone removal and pancreatic stent placement. Patient is currently asymptomatic regarding biliary issues. Stricture shows signs of resolution. * COPD:?70-year-old with known COPD presenting with shortness of breath and dizziness. Symptoms are consistent with mild COPD exacerbation or related to other factors, and require further evaluation. * Dizziness:?Differential diagnosis includes COPD-related issues (hypoxia), dehydration, orthostatic hypotension, or cardiac causes.? Plan * Biliary Management:?Schedule endoscopic procedure for removal of the temporary pancreatic duct stent. Follow up with gastroenterology to monitor for any stricture recurrence. * COPD Management: * Continue current COPD medications (if any). * Assess home oxygen saturation and potential need for supplemental oxygen. * Reinforce breathing techniques and energy conservation strategies. * Consider pulmonary function tests (spirometry) to evaluate current lung function. * Dizziness Evaluation: * orthostatics were normal . vital signs were normal * Follow up with neurology if dizziness persists despite addressing other issues. Medications: Refilled sennosides-docusate sodium 8.6-50 mg (Stimulant Laxative Plus) 1 TAB PO DAILY 30tabs 0RF Coding Level of Care Code Off vis,est,level 4 Diagnoses Abnormal finding on imaging of liver R93.2 Cholelithiases K80.20 COPD (chronic obstructive pulmonary disease) J44.9 Clinical Quality Measures Falls Risk Screening/Assistive Devices Have you fallen in the past year?: No 05/26/25 3948 <Electronically signed by Connor peguero DO> Date _ Connor Lozadaigner Signature: Date (if applicable) CC: ~ [facility] Work Phone: 1(183) 129-600310-02-2025 Discharge summary [facility] Medical Records Department [address] [place] [address] Discharge Summary 05/19/25 1510 MR#: [id number] Acct: [id number] Name: NORA GRANDE Rep #:[id number] : 1955 70 From: Yordan Newman MD PCP: Dr. Claudine Ruiz, Status:ADM IN [facility] Prov[facility] Date of Admission: 05/16/25 Date of Discharge: 05/19/25 Primary Care Physician: Dr. Claudine Ruiz DO Consultations 05/16/25 22:04 Consult: Gastroenterology Routine Consulting Provider: [facility] Reason for Consult: Cholelithiasis EMERGENT Consult: [...] tablet 1 mg PO QHS anxiety 10/18/16 multivitamin,ng-rfnk-etrcsjja 27 mg-0.4 mg tablet 1 tab PO [...] puff inhalation Q6H PRN shortness of breath orwheezing #18 grams 05/04/24 meclizine 25 mg tablet [...] % (Auto) 65.2, Lymph % (Auto) 17.3 L,Charles Mix % (Auto) 14.9 H, Eos % (Auto) [...] Provider: Yordan Newman Primary Care Provider: Claudine Ruiz Consulting Providers: Danilo Salvador; Connor Tadeo; Christina [...] 1 MG tablet 1 mg PO QHS multivitamin,bc-ijow-ecbmmrdw 1 TABLET tablet 1 tab PO DAILY albuterol sulfate 90 mcg/actuation HFA aerosol inhaler 2 puff INHALATION Q6H PRN (Reason: shortness of breath or wheezing) Qty: 18 11RF Trelegy Ellipta 200-62.5-25 mcg blister with device 1 inh inhalation DAILY Qty: 60 11RF Referrals / Follow Up: Claudine Ruiz DO [Primary Care Provider, Family Practice] - Within 1 Week Connor Tadeo DO [Med Staff - Active Staff, Gastroenterology] - Within 2 Weeks Disposition Disposition (needs filled in before D/C Order can be placed): Home, Self Care Charges/Coding Visit Charges Inpatient E&M: 02198 Disch Hosp >30min 05/19/25 2224 Cosigner Signature (if applicable): CC: Dr. Yordan Newman MD; Dr. Claudine Ruiz DO~ Signed [facility]10-02-2025 [facility] Medical Records Department [address] [place] [address] Discharge Summary 05/19/25 1510 MR#: [id number] Acct: [id number] Name: NORA GRANDE Rep #: [id number] : 1955 70 From: Yordan Newman MD PCP: Dr. Claudine Ruiz, DO Status:ADM IN Location: [place] [address] Providers Date of Admission: 05/16/25 Date of Discharge: 05/19/25 Primary Care Physician: Dr. Claudine Ruiz, DO Consultations 05/16/25 22:04 Consult: Gastroenterology Routine Consulting Provider: [facility] Reason for Consult: Cholelithiasis EMERGENT Consult: [...] tablet 1 mg PO QHS anxiety 10/18/16 multivitamin,zv-gjon-ghbppici 27 mg-0.4 mg tablet 1 tab PO [...] (Auto) 1.500 H, Neut (more content not included)...[facility]10-02-2025 Hospital Discharge instructionsAdditional Instructions Date of Discharge: 05/19/25[facility] Work Phone: 1(231) 616-799210-02-2025 Progress note Author Yordan Newman [facility] Note Date/Time May 19, 2025 10 :09am [facility] Medical Records Department [address] [place] [address] Progress Note - Hospitalist 05/19/25 1004 MR#: [id number] Acct: [id number] Name: NORA GRANDE Rep #:[id number] : 1955 70 From: Yordan Newman MD PCP: Dr. Claudine Ruiz, DO Status:ADM IN Location: [place] [address] Reason for Visit Chief Complaint: Abdominal pain [...] % (Auto) 65.2, Lymph % (Auto) 17.3 L,Charles Mix % (Auto) 14.9 H, Eos % (Auto) [...] spot images were also obtained. Reading Location: [address] Endo Retro Cholangiopancreatogram 05/18/25 12:46 IMPRESSION: Fluoroscopy was performed for ERCP. 9 spot images were also obtained. Reading Location: [address] Physical Exam Narrative GENERAL: cooperative HEENT: [...] 35 Minutes Charges/Coding Visit Charges Inpatient E&M: 98841 Subs Hosp L2 10/02/25 1009 <Electronically signed by Yordan Newman MD> Cosigner Signature (if applicable): CC: ~ Signed [facility] Work Phone: 1(503) 545-420810-02-2025 Progress note [facility] Medical Records Department [address] [place] [address] Progress Note - Hospitalist 05/19/25 1004 MR#: [id number] Acct: [id number] Name: NORA GRANDE Rep #:[id number] : 1955 70 From: Yordan Newman MD PCP: Dr. Claudine Ruiz, DO Status:ADM IN Location: [place] 654441-1 Reason for Visit Chief Complaint: Abdominal pain [...] 23:59 23:59 Intake Total 3441.67 / 3441.67 2527. / 252.25 1125 / 1125 Output Total 2 / 2 Balance 3441.67 / 3441.67 2525. / 252. 1125 / 1125 Lab / Micro Data [...] % (Auto) 65.2, Lymph % (Auto) 17.3 L,Charles Mix % (Auto) 14.9 H, Eos % (Auto) [...] spot images were also obtained. Reading Location: [address] Endo Retro Cholangiopancreatogram 05/18/25 12:46 IMPRESSION: Fluoroscopy was performed for ERCP. 9 spot images were also obtained. Reading Location: [address] Physical Exam Narrative GENERAL: cooperative HEENT: [...] 35 Minutes Charges/Coding Visit Charges Inpatient E&M: 33180 Subs Hosp L2 05/19/25 1009 Cosigner Signature (if applicable): CC: ~ Signed [facility]10-01-2025 Consult note Author Jorge Og [facility] Note Date/Time May 18, 2025 3: 13pm [facility] Medical Records Department [address] [place] [address] Anesthesia Postop Eval II 05/18/25 1513 MR#: [id number] Acct: [id number] Name: NORA GRANDE Rep #:[id number] : 1955 70 From: Jorge Peguero PCP: Dr. Claudine Ruiz, DO Status:ADM IN Y Race: C Location: [facility] MS1 -1 Anesthesia Postop Eval I Sum Postop Eval [...] Vomiting: No Complications Anesthesia Complication: No 05/18/25 4933 <Electronically signed by Jorge Og MD> Date _ Jorge Og MD Cosigner Signature: Date CC: ~ Signed [facility] Work Phone: 1(730) 853-831610-01-2025 Consult note Author Connor Tadeo [facility] Note Date/Time May 18, 2025 2: 17pm [facility] Medical Records Department [address] [place] [address] Consultation - GI 05/17/251948 MR#: [id number] Acct: [id number] Name: NORA GRANDE Rep #:[id number] : 1955 70 From: Connor Tadeo DO PCP: Dr. Claudine Ruiz, DO Status:ADM IN Location: MS3 PC953-0 HPI Consult Data Date of Consult: 05/17/25 [...] Small benign-appearing hepatic cysts MRCP is pending [facility] Medical History Hx of emotional problems Hormone deficiency Back problem HTN (hypertension) History of skin cancer CHF (congestive heart failure) Fibromyalgia Tobacco use Home Medications ?Medication ?Instructions ?Recorded ?Last Taken ?Type clonazepam 1 mg tablet 1 mg PO QHS anxiety 10/18/16 Unknown History multivitamin,iu-kxsu-tlmfvynb 27 1 tab PO DAILY supple ment [...] % (Auto) 57.9, Lymph % (Auto) 25.6, Charles Mix % (Auto) 13.6 H, Eos % (Auto) [...] is identified. Charges/Coding Visit Charges Inpatient E&M: 59109 Init Hosp L3 05/18/25 5987 <Electronically signed by Connor Friend DO> Cosigner Signature (if applicable): CC: Dr. Claudine Ruiz, DO~ Signed [facility] Work Phone: 1(467) 139-362910-01-2025 Consult note Author Carlo Arias [facility] Note Date/Time May 18, 2025 2: 06pm [facility] Medical Records Department [address] [place] [address] Anesthesia Postop Eval I 05/18/25 1405 MR#: [id number] Acct: [id number] Name: NORA GRANDE Rep #:[id number] : 1955 70 From: Carlo Arias PCP: Dr. Claudine Ruiz DO Status:ADM IN Y Race: C Location: [place] [address] Anesthesia: Postop Eval I Current Vital Signs [...] Anesthesia document: Postop Eval 1 completed: Yes 05/18/251405 <Electronically signed by Carlo Arias > Date _ Carlo Sanchez Signature: Date CC: ~ Signed [facility] Work Phone: 1(474) 977-548110-01-2025 Consult note [facility] Medical Records Department [address] [place] [address] Anesthesia Postop Eval II 05/18/25 1513 MR#: [id number] Acct: [id number] Name: NORA GRANDE Rep #:[id number] : 1955 70 From: Jorge Peguero PCP: Dr. Claudine Ruiz, DO Status:ADM IN Y Race: C Location: [place]3 MS321 -1 Anesthesia Postop Eval I Sum Postop Eval [...] MD Cosigner Signature: Date CC: ~ Signed [facility]10-01-2025 Consult note Author Jorge Og [facility] Note Date/Time May 18, 2025 12 :46pm [facility] Medical Records Department [address] [place] [address] Pre-Anesthesia Evaluation 05/18/25 1238 MR#: [id number] Acct: [id number] Name: NORA GRANDE Rep #:[id number] : 1955 70 From: Jorge Peguero PCP: Dr. Claudine Ruiz, DO Status:ADM IN Y Race: C Location: MS3 MS321 -1 ASA Classification* ASA Classification ASA [...] Procedure(s): ERCP Anesthesia History Anesthesia History - senior controls technician: Anesthesia History - senior controls technician Hx Hospitalization Yes 09/10/19 13:04 Any Problems [...] take am of surgery PONV PONV - senior controls technician: PONV - senior controls technician Female HX of Motion Sickness HX of N/V After Surgery Non-Smoker Duration of Surgery greater than 60 minutes Number of Risk Factors PONV Score Height & Weight Height & Weight: Anesthesia: Height & Weight Height 5 ft 2 in 05/17/25 22:42 Weight: 64.2 kg 05/17/25 22:42 Body Mass Index (BMI) 25.9 05/17/25 22:42 Respiratory Assessment Respiratory Assessment - senior controls technician: Respiratory Tract Infection Hx - senior controls technician Hx Respiratory Tract Infection No 05/18/25 01:02 STOP Sleep Apnea STOP Sleep Apnea - senior controls technician: STOP Sleep Apnea - senior controls technician Hx Hypertension Yes 05/16/25 22:11 Hx Sleep [...] Tobacco Use History Tobacco Use History - senior controls technician: Tobacco Use History - senior controls technician Tobacco Use Cigarettes 12/24/20 17:14 Smoking Status Current every day smoker 05/17/25 07:49 Hx Tobacco Use Yes 05/16/25 22:11 Years Smoking Packs Smoked per Day Smoking Cessation Date was within the last 15 years Hx Smoking Cessation Date Hx Smoking Cessation Counseling Hematologic Medial History Hematologic Hx - senior controls technician: Hematologic Medical Hx - documentation consultant Hx of Blood Transfusion No 05/16/25 22:11 [...] confused, unrespo /Reproduction History /Reproductive History - senior controls technician: /Reproductive Hx- senior controls technician Hx Now No 05/18/25 01:02 Gestational Age [...] mls @ 15 mls/hr 05/16/25 22:05 IV .[id number] PRN Saline Flush Sodium Chloride 250 mls @ 15 mls/hr 05/16/25 22:05 IV .[id number] PRN Additional IVPB Infusion Ketorolac Tromethamine 15 [...] Chloride 10 - 40 ml 05/16/25 22:05 10/01/25 01:06 0.9% Saline Lock 10 Ml Syringe IV 10 ml UD PRN Administration SALINE FLUSH PFSH Medical History Hx of emotional problems Hormone deficiency Back problem HTN (hypertension) History of skin cancer CHF (congestive heart failure) Fibromyalgia Tobacco use Home Medications ?Medication ?Instructions ?Recorded ?Last Taken ?Type clonazepam 1 mg tablet 1 mg PO QHS anxiety 10/18/16 Unknown History multivitamin,dq-rapg-vczrzvsa 27 1 tab PO DAILY supple ment [...] MD Cosigner Signature: Date CC: ~ Signed [facility] Work Phone: 1(334) 804-352210-01-2025 Consult note [facility] Medical Records Department [address] [place] [address] Consultation - GI 05/17/251948 MR#: [id number] Acct: [id number] Name: NORA GRANDE Rep #:[id number] : 1955 70 From: Connor Friend DO PCP: Dr. Claudine Ruiz DO Status:ADM IN Location: [address] HPI Consult Data Date of Consult: 05/17/25 [...] Small benign-appearing hepatic cysts MRCP is pending [facility] Medical History Hx of emotional problems Hormone deficiency Back problem HTN (hypertension) History of skin cancer CHF (congestive heart failure) Fibromyalgia Tobacco use Home Medications ?Medication ?Instructions ?Recorded ?Last Taken ?Type clonazepam 1 mg tablet 1 mg PO QHS anxiety 10/18/16 Unknown History multivitamin,gr-lcyf-pvneawoi 27 1 tab PO DAILY supple ment [...] % (Auto) 57.9, Lymph % (Auto) 25.6, Charles Mix % (Auto) 13.6 H, Eos % (Auto) [...] is identified. Charges/Coding Visit Charges Inpatient E&M: 72435 Init Hosp L3 05/18/25 1417 Cosigner Signature (if applicable): CC: Dr. Claudine Ruiz DO~ Signed [facility]10-01-2025 Consult note [facility] Medical Records Department [address] [place] [address] Anesthesia Postop Eval I 05/18/25 1405 MR#: [id number] Acct: [id number] Name: NORA GRANDE Rep #:[id number] : 1955 70 From: Carlo Arias PCP: Dr. Claudine Ruiz DO Status:ADM IN Y Race: C Location: [facility] MS321 -1 Anesthesia: Postop Eval I Current Vital Signs [...] Yes 05/18/25 1406 > Date _ Carlo Sanchez Signature: Date CC: ~ Signed [facility]10-01-2025 Radiology Diagnostic study note [facility] Imaging Services [address] [place], [place] [address] ERCP Biliary/Pancreas MR#: [id number] Acct: [id number] Name: NORA GRANDE Rep #: [id number] : 1955 F 70 From: Jonathan Ibrahim MD PCP: Dr. Claudine Ruiz DO Status: ADM IN Study:ERCP Biliary/Pancreas Date of Exam: 05/18/25 Exam# [id number] Ordering Dr: Ashlie Tadeo DO PROCEDURE: ERCP BILIARY/PANCREAS; O.R. FLUORO FOR C-ARM 05/18/2025 REASON FOR EXAM: ERCP TECHNIQUE: Procedure Code: RADERCP; RADORFL_C_ARM Modality: DX Procedure: ERCP BILIARY/PANCREAS; O.R. FLUORO FOR C-ARM Fluoroscopy time: 70.5 seconds. Dose: 13.06 mGy. RAD/ERCP Biliary/Pancreas IMPRESSION: Fluoroscopy was performed for ERCP. 9 spot images were also obtained. Reading Location: [address] CC: Dr. Claudine Ruiz DO; Connor Tadeo DO ~ Tobacco Educator: Signed [facility]10-01-2025 Radiology Diagnostic study note [facility] Imaging Services [address] [address] O.R. Fluoro for C-Arm MR#: [id number] Acct: [id number] Name: NORA GRANDE Rep #: [id number] : 1955 F 70 From: Jonathan Ibrahim MD PCP: Dr. Claudine Ruiz DO Status: ADM IN Study:O.R. Fluoro for C-Arm Date of Exam: 05/18/25 Exam# [id number] Ordering Dr: Ashlie Tadeo DO PROCEDURE: ERCP BILIARY/PANCREAS; O.R. FLUORO FOR C-ARM 05/18/2025 REASON FOR EXAM: ERCP TECHNIQUE: Procedure Code: RADERCP; RADORFL_C_ARM Modality: DX Procedure: ERCP BILIARY/PANCREAS; O.R. FLUORO FOR C-ARM Fluoroscopy time: 70.5 seconds. Dose: 13.06 mGy. RAD/O.R. Fluoro for C-Arm IMPRESSION: Fluoroscopy was performed for ERCP. 9 spot images were also obtained. Reading Location: [address] CC: Dr. Claudine Ruiz DO; Connor Tadeo DO ~ Tobacco Educator: Signed [facility]10-01-2025 Procedure note [facility] Medical Records Department [address] [place] [address] ERCP Report MR#: [id number] Acct: [id number] Name: NORA GRANDE Rep #:[id number] : 1955 70 From: Connor Tadeo DO PCP: Dr. Claudine Ruiz DO Status:ADM IN Patient Name: Nora Grande [...] hours 26 minutes 13 seconds Findings: The automotive tire tester film was normal. The esophagus was successfully [...] main duct. Procedure Code(s): --- Professional --- 04014, Endoscopic retrograde cholangiopancreatography (ERCP); with placement of endoscopic stent into biliary or pancreatic duct, including pre- and post-dilation and guide wire passage, when performed, including sphincterotomy, when performed, each stent 17254, 51, Endoscopic retrograde cholangiopancreatography (ERCP); with removal of calculi/debris from biliary/pancreatic duct(s) 39355, 59, Endoscopic retrograde cholangiopancreatography (ERCP); with sphincterotomy/papillotomy 12595, 26, Combined endoscopic catheterization of the biliary and pancreatic ductal systems, radiological supervision and interpretation CPT copyright 2021 [employer]. All rights reserved. The codes documented in this report are preliminary and upon disability benefits specialist review may be revised to meet current compliance requirements. Connor Tadeo DO 05/18/2025 1:40:34 PM This report has been signed electronically. Number of Addenda: 0 Note Initiated On: 05/18/2025 12:38 PM 05/18/25 1340 Date _ Connor Tadeo DO Cosigner Signature: Date (if indicated) CC: Dr. Claudine Ruiz DO; Connor Tadeo DO ~ Date Dictated: 05/18/25 1238 Date Transcribed: Tobacco Educator: RF Signed [facility]10-01-2025 Procedure note [facility] Medical Records Department [address] [place] [address] Provation Physician Letter MR#: [id number] Acct: [id number] Name: NORA GRANDE Rep #:[id number] : 1955 70 From: Connor Tadeo DO PCP: Dr. Claudine Ruiz DO Status:ADM IN 05/18/2025 Claudine Ruiz [address] [facility] [place] [address] [place] [address] Re : ERCP procedure for Nora Christiane Dear Dr. Ruiz This procedure was performed on Sunday, May [...] DO Cosigner Signature: Date (if indicated) CC: FINANCIAL REPORT SERVICE SALES AGENTBogdan Mendez; FEDERICO Singh; Dr. Yordan Newman MD; Dr. Boston DO; Dr. Jaylen Mike MD; Dr. Zachary Coffey MD; Dr. Danilo Salvador MD; GREGOR Hernandez; Connor Tadeo DO ~ Date Dictated: 05/18/25 1238 Date Transcribed: Tobacco Educator: RF Signed [facility]10-01-2025 Consult note [facility] Medical Records Department [address] [place] [address] Pre-Anesthesia Evaluation 05/18/25 1238 MR#: [id number] Acct: [id number] Name: NORA GRANDE Rep #:[id number] : 1955 70 From: Jorge Peguero PCP: Dr. Claudine Ruiz DO Status:ADM IN Y Race: C Location: [facility] -1 ASA Classification* ASA Classification ASA Classification: [...] Procedure(s): ERCP Anesthesia History Anesthesia History - senior controls technician: Anesthesia History - senior controls technician Hx Hospitalization Yes 09/10/19 13:04 Any Problems [...] take am of surgery PONV PONV - senior controls technician: PONV - senior controls technician Female HX of Motion Sickness HX of N/V After Surgery Non-Smoker Duration of Surgery greater than 60 minutes Number of Risk Factors PONV Score Height & Weight Height & Weight: Anesthesia: Height & Weight Height 5 ft 2 in 05/17/25 22:42 Weight: 64.2 kg 05/17/25 22:42 Body Mass Index (BMI) 25.9 05/17/25 22:42 Respiratory Assessment Respiratory Assessment - senior controls technician: Respiratory Tract Infection Hx - senior controls technician Hx Respiratory Tract Infection No 05/18/25 01:02 STOP Sleep Apnea STOP Sleep Apnea - senior controls technician: STOP Sleep Apnea - senior controls technician Hx Hypertension Yes 05/16/25 22:11 Hx Sleep [...] Tobacco Use History Tobacco Use History - senior controls technician: Tobacco Use History - senior controls technician Tobacco Use Cigarettes 12/24/20 17:14 Smoking Status Current every day smoker 05/17/25 07:49 Hx Tobacco Use Yes 05/16/25 22:11 Years Smoking Packs Smoked per Day Smoking Cessation Date was within the last 15 years Hx Smoking Cessation Date Hx Smoking Cessation Counseling Hematologic Medial History Hematologic Hx - senior controls technician: Hematologic Medical Hx - documentation consultant Hx of Blood Transfusion No 05/16/25 22:11 [...] confused, unrespo /Reproduction History /Reproductive History - senior controls technician: /Reproductive Hx- senior controls technician Hx Now No 05/18/25 01:02 Gestational Age [...] mls @ 15 mls/hr 05/16/25 22:05 IV .[id number] PRN Saline Flush Sodium Chloride 250 mls @ 15 mls/hr 05/16/25 22:05 IV .[id number] PRN Additional IVPB Infusion Ketorolac Tromethamine 15 mg 05/16/25 22:35 05/18/25 05:19 Ketorolac 15 Mg/Ml Vial IV 05/21/25 22:37 15 mg Q6H PRN PRN Administration Pain Score 1-5 Losartan Potassium 50 mg 05/18/25 10:00 05/18/25 11:09 Losartan Potassium 50 Mg Tablet PO Not Given DAILY [facility] Protocol Olanzapine 15 mg 05/17/25 22:00 05/17/25 [...] mg PO QHS anxiety 10/18/16 Unknown History multivitamin,ku-ssvv-xaipgegk 27 1 tab PO DAILY supple ment [...] MD Cosigner Signature: Date CC: ~ Signed [facility]10-01-2025 Progress note Author Yordan Newman [facility] Note Date/Time May 18, 2025 8: 34am [facility] Medical Records Department [address] [place] [address] Progress Note - Hospitalist 05/18/25 0827 MR#: [id number] Acct: [id number] Name: NORA GRANDE Rep #:[id number] : 1955 70 From: Yordan Newman MD PCP: Dr. Claudine Ruiz, DO Status:ADM IN Location: [place] [address] Reason for Visit Chief Complaint: Abdominal pain [...] masses, possibly age related . Reading Location: [place] [address] Physical Exam Narrative GENERAL: cooperative HEENT: Atraumatic; [...] 40 Minutes Charges/Coding Visit Charges Inpatient E&M: 17487 Subs Hosp L2 05/18/25 0834 <Electronically signed by Yordan Newman MD> Cosigner Signature (if applicable): CC: ~ Signed [facility] Work Phone: 1(895) 353-441210-01-2025 Progress note [facility] Medical Records Department [address] [place] [address] Progress Note - Hospitalist 05/18/25826 MR#: [id number] Acct: [id number] Name: NORA GRANDE Rep #:[id number] : 1955 70 From: Yordan Newman MD PCP: Dr. Claudine Ruiz, DO Status:ADM IN Location: [place] 654441-1 Reason for Visit Chief Complaint: Abdominal pain [...] masses, possibly age related . Reading Location: [place] [address] Physical Exam Narrative GENERAL: cooperative HEENT: Atraumatic; [...] 40 Minutes Charges/Coding Visit Charges Inpatient E&M: 42010 Subs Hosp L2 05/18/25 0834 Cosigner Signature (if applicable): CC: ~ Signed [facility]09-30-2025 Progress note Author Jaylen Mike [facility] Note Date/Time May 17, 2025 11:19am [facility] Medical Records Department [address] [place] [address] Progress Note - Hospitalist 05/17/25 1114 MR#: [id number] Acct: [id number] Name: NORA GRANDE Rep #:[id number] : 1955 70 From: Jaylen franco MD PCP: Dr. Claudine Ruiz, DO Status:ADM IN Location: MS3 KN060-7 Subjective Subjective Abdominal pain is improved today. [...] % (Auto) 65.6, Lymph % (Auto) 21.9, [place] % (Auto) 10.2 H, Eos % (Auto) [...] Clarity Clear, Urine pH 6.0, Ur Specific [place] 1.010, Urine Protein 30 H, Urine Glucose [...] % (Auto) 57.9, Lymph % (Auto) 25.6, [place] % (Auto) 13.6 H, Eos % (Auto) [...] normal. Cholelithiasis. No definitive choledocholithiasis. Reading Location: [place] [address] Gallbladder Ultrasound 05/16/25 16:59 IMPRESSION: Cholelithiasis. No evidence for acute cholecystitis. Mild intra and extrahepatic biliary ductal dilatation, and prominence of the main pancreatic duct. No discrete obstructing mass or choledocholithiasis appreciated. MRCP may be helpful. Mild diffuse hepatic steatosis. Small benign-appearing hepatic cysts. Reading Location: [facility] Physical Exam Narrative General: Alert, Oriented x3, [...] DVT: Lovenox Charges/Coding Visit Charges Inpatient E&M: 60853 Subs Hosp L2 05/17/25 1119 <Electronically signed by Jaylen Mike MD> Cosigner Signature (if applicable): CC: ~ Signed [facility] Work Phone: 1(720) 761-774109-30-2025 Progress note [facility] Medical Records Department [address] [place] [address] Progress Note - Hospitalist 05/17/25 1114 MR#: [id number] Acct: [id number] Name: NORA GRANDE Rep #:[id number] : 1955 70 From: Jaylen franco MD PCP: Dr. Claudine Ruiz, DO Status:ADM IN Location: [facility] VB306-1 Subjective Subjective Abdominal pain is improved today. [...] Neut %(Auto) 65.6, Lymph % (Auto) 21.9, [place] % (Auto) 10.2 H, Eos % (Auto) [...] Clarity Clear, Urine pH 6.0, Ur Specific [place] 1.010, Urine Protein 30 H, Urine Glucose [...] % (Auto) 57.9, Lymph % (Auto) 25.6, [place] % (Auto) 13.6 H, Eos % (Auto) [...] normal. Cholelithiasis. No definitive choledocholithiasis. Reading Location: [place] [address] Gallbladder Ultrasound 05/16/25 16:59 IMPRESSION: Cholelithiasis. No evidence for acute cholecystitis. Mild intra and extrahepatic biliary ductal dilatation, and prominence of the main pancreatic duct. No discrete obstructing mass or choledocholithiasis appreciated. MRCP may be helpful. Mild diffuse hepatic steatosis. Small benign-appearing hepatic cysts. Reading Location: [facility] Physical Exam Narrative General: Alert, Oriented x3, [...] DVT: Lovenox Charges/Coding Visit Charges Inpatient E&M: 61416 Subs Hosp L2 05/17/25 1119 Cosigner Signature (if applicable): CC: ~ Signed [facility]09-30-2025 Discharge summary Author Tamara Neal [facility] Note Date/Time May 17, 2025 12:25am [facility] Medical Records Department [address] [place] [address] Emergency Department Summary 05/16/25 MR#: [id number] Acct: [id number] Name: NORA GRANDE Rep #:[id number] : 1955 70 From: Tamara Neal MD PCP: Dr. Claudine Ruiz, DO Status:ADM IN Location: [facility] GI841-4 HPI HPI - GI History of Present [...] mg PO QHS anxiety 10/18/16 Unknown History multivitamin,xj-ipdq-uxxlsewv 27 1 tab PO DAILY supple ment [...] No guarding or rebound. : done with driver examiner at bedside. No hemorrhoids or fissures noted. [...] positive. Given these findings, discussed with on-call assistant prosecuting attorney, Dr. Tadeo, whostates with the abdominal pain and no other findings and MRCP is warranted. Discussed with patient and she is agreeable with admission. [facility]. Clinical impression: GI bleed [...] % (Auto) 65.6 Lymph % (Auto) 21.9 [place] % (Auto) 10.2 H Eos % (Auto) [...] Clarity Clear Urine pH 6.0 Ur Specific [place] 1.010 Urine Protein 30 H Urine Glucose [...] normal. Cholelithiasis. No definitive choledocholithiasis. Reading Location: [place] [address] Gallbladder Ultrasound 05/16/25 16:59 IMPRESSION: Cholelithiasis. No evidence for acute cholecystitis. Mild intra and extrahepatic biliary ductal dilatation, and prominence of the main pancreatic duct. No discrete obstructing mass or choledocholithiasis appreciated. MRCP may be helpful. Mild diffuse hepatic steatosis. Small benign-appearing hepatic cysts. Reading Location: [facility] Discharge Plan Disposition Disposition: Acute Care Hospital [facility] Discharge Date/Time: 05/16/25 21:57 What to do if you have Problems For any increased pain, shortness of breath, bleeding, nausea or vomiting, chestpain, or any unexpected problems, contact your Primary Care Provider. Call [facility] ([phone]) or report to the closest Emergency Room. Call 911 if necessary. 05/17/25 0025 <Electronically signed by Tamara Neal MD> Cosigner Signature (if applicable): CC: Dr. Claudine Ruiz, DO ~ Signed [facility] Work Phone: 1(190) 781-366409-30-2025 Progress note Author Christina Mendez [facility] Note Date/Time May 16, 2025 11:46pm [facility] Medical Records Department [address] [place] [address] Progress Note - Hospitalist 05/16/252336 MR#: [id number] Acct: [id number] Name: NORA GRANDE Rep #:[id number] : 1955 70 From: Christina Joyner PCP: Dr. Claudine Ruiz, Status:ADM IN [facility] Note Pt admitted from ER without having received any analgesia for her severe 9/10 abdominal pain. Only ondansetron ordered for nausea at this time. Order placed for ketorolac 15mg IV q6h PRN pain 1-5/10 and hydromorphone 0.2mg IV q4h PRN pain 6-10/10. Monitoring renal function. 05/16/25 2344 <Electronically signed by Christina CABALLERO> Cosigner Signature (if applicable): CC: ~ Signed ADDENDUM by FEDERICO Mendez on 05/16/25 at 2346 Addendum Dulcolax suppository x1 ordered for c/o no BM "for a while" and moderate stool burden noted on CT abd/pelvis. 05/16/25 2346<Electronically signed by Christina CABALLERO> Cosigner Signature (if applicable): cc: ~* Signed [facility] Work Phone: 1(166) 486-863609-30-2025 Discharge summary [facility] Medical Records Department [address] [place] [address] Emergency Department Summary 05/16/25 MR#: [id number] Acct: [id number] Name: NORA GRANDE Rep #:[id number] : 1955 70 From: Tamraa Neal MD PCP: Dr. Claudine Ruiz, DO Status:ADM IN Location: [facility] CL274-5 HPI HPI - GI History of Present [...] mg PO QHS anxiety 10/18/16 Unknown History multivitamin,qy-grsn-gbengjdb 27 1 tab PO DAILY supple ment 10/18/16 Unknown History mg-0.4 mg tablet buspirone 15 mg tablet 15 mg PO BID mood 02/22/24 U nknown History cyclobenzaprine 10 mg tablet [...] No guarding or rebound. : done with driver examiner at bedside. No hemorrhoids or fissures noted. [...] positive. Given these findings, discussed with on-call assistant prosecuting attorney, Dr. Tadeo, whostates with the abdominal pain and no other findings and MRCP is warranted. Discussed with patient and she is agreeable with admission. [facility]. Clinical impression: GI [...] % (Auto) 65.6 Lymph % (Auto) 21.9 [place] % (Auto) 10.2 H Eos % (Auto) [...] Clarity Clear Urine pH 6.0 Ur Specific [place] 1.010 Urine Protein 30 H Urine Glucose [...] normal. Cholelithiasis. No definitive choledocholithiasis. Reading Location: [place] [address] Gallbladder Ultrasound 05/16/25 16:59 IMPRESSION: Cholelithiasis. No evidence for acute cholecystitis. Mild intra and extrahepatic biliary ductal dilatation, and prominence of the main pancreatic duct. No discrete obstructing mass or choledocholithiasis appreciated. MRCP may be helpful. Mild diffuse hepatic steatosis. Small benign-appearing hepatic cysts. Reading Location: [facility] Discharge Plan Disposition Disposition: Acute Care Hospital [facility] Discharge Date/Time: 05/16/25 21:57 What to do if you have Problems For any increased pain, shortness of breath, bleeding, nausea or vomiting, chestpain, or any unexpected problems, contact your Primary Care Provider. Call [facility] ([phone]) or report tothe closest Emergency Room. Call 911 if necessary. 05/17/25 0025 Cosigner Signature (if applicable): CC: Dr. Claudine Ruiz DO ~ Signed [facility]09-29-2025 Progress note [facility] Medical Records Department [address] [place] [address] Progress Note - Hospitalist 05/16/25 2337 MR#: [id number] Acct: [id number] Name: NORA GRANDE Rep #:[id number] : 1955 70 From: Christina Joyner PCP: Dr. Claudine Ruiz DO Status:ADM IN [facility] Hospital[facility] Note Pt admitted from ER without having received any analgesia for her severe 9/10 abdominal pain. Only ondansetron ordered for nausea at this time. Order placed for ketorolac 15mg IV q6h PRN pain 1-5/10 and hydromorphone 0.2mg IV q4h PRN pain 6-10. Monitoring renal function. 05/16/252343 Cosigner Signature (if applicable): CC: ~ Signed ADDENDUM by FEDERICO Mendez on 05/16/25 at 2346 Addendum Dulcolax suppository x1 ordered for c/o no BM "for a while" and moderate stool burden noted on CT abd/pelvis. 05/16/252345 Cosigner Signature (if applicable): cc: ~* Signed [facility]09-29-2025 Evaluation note* Diagnosis Onset Date Resolution Status Admit Date Abnormal finding on imaging of liver acute May 16, 2025 8:26pm Cholelithiases acute May 16, 2025 8:26pm CHF (congestive heart failure) chron ic May 16, 2025 8:26pm COPD (chronic obstructive pulmonary disease) chronic April 8:26pm Fibromyalgia chronic May 162024 8:26pm HTN (hypertension) chronic 2024 8:26pm JORGE (obstructive sleep apnea) chroni c May 16, 2025 8:26pm Smoking greater than 30 pack years chronic May 16, 2025 8:26pm [facility] Work Phone: 1(238) 754-958009-29-2025 Evaluation note* Diagnosis Onset Date Resolution Status Admit Date CHF (congestive heart failure) chron ic May 16, 2025 8:26pm COPD (chronic obstructive pulmonary disease) chronic April 8:26pm Fibromyalgia chronic May 162024 8:26pm HTN (hypertension) chronic 2024 8:26pm JORGE (obstructive sleep apnea) chroni c May 16, 2025 8:26pm Smoking greater than 30 pack years chronic May 16, 2025 8:26pm Abnormal finding on imaging of liver resolved May 16, 2025 8:26pm Cholelithiases resolved May 16, 2025 8:26pm COPD (chronic obstructive pulmonary disease) chronic May 26, 2025 1:47pm Abnormal finding on imaging of liver resolved May 26 1:47pm Cholelithiases resolved May 1:47pm [facility] Work Phone: 1(802) 147-947509-29-2025 History and physical note Author Zachary Coffey [facility] Note Date/Time May 16, 2025 8:26pm [facility] Medical Records Department [address] [place] [address] History & Physical Exam 05/16/252006 MR#: [id number] Acct: [id number] Name: NORA GRANDE Rep #:[id number] : 1955 70 From: Zachary Coffey MD PCP: Dr. Claudine Ruiz, DO Status:REG ER Location: ED HPI - [...] 1 mg PO QHS 10/18/16 Unknown History multivitamin,tz-likl-eazqacjy 27 1 tab PO DAILY Unknown History [...] % (Auto) 65.6, Lymph % (Auto) 21.9, [place] % (Auto) 10.2 H, Eos % (Auto) [...] Clarity Clear, Urine pH 6.0, Ur Specific [place] 1.010, Urine Protein 30 H, Urine Glucose [...] normal. Cholelithiasis. No definitive choledocholithiasis. Reading Location: [place] [address] Gallbladder Ultrasound 05/16/25 16:59 IMPRESSION: Cholelithiasis. No evidence for acute cholecystitis. Mild intra and extrahepatic biliary ductal dilatation, and prominence of the main pancreatic duct. No discrete obstructing mass or choledocholithiasis appreciated. MRCP may be helpful. Mild diffuse hepatic steatosis. Small benign-appearing hepatic cysts. Reading Location: [id number] Assessment & Plan Assessment/Plan (1) COPD (chronic [...] full verified Charges/Coding Visit Charges Inpatient E&M: 55816 Init Hosp L2 05/16/252025 <Electronically signed by Zachary Coffey MD> Cosigner Signature (if applicable): CC: Dr. Claudine Ruiz DO; Dr. Zachary Coffey MD~ Signed [facility] Work Phone: 1(500) 457-917309-29-2025 History and physical note [facility] Medical Records Department [address] [place] [address] History & Physical Exam 05/16/252006 MR#: [id number] Acct: [id number] Name: NORA GRANDE Rep #:[id number] : 1955 70 From: Zachary Coffey MD PCP: Dr. Claudine Ruiz DO Status:REG ER Location: ED HPI - [...] 1 mg PO QHS 10/18/16 Unknown History multivitamin,fa-mowh-kblzjoij 27 1 tab PO DAILY Unknown History [...] Neut %(Auto) 65.6, Lymph % (Auto) 21.9, [place] % (Auto) 10.2 H, Eos % (Auto) [...] Clarity Clear, Urine pH 6.0, Ur Specific [place] 1.010, Urine Protein 30 H, Urine Glucose [...] normal. Cholelithiasis. No definitive choledocholithiasis. Reading Location: [place] [address] Gallbladder Ultrasound 05/16/25 16:59 IMPRESSION: Cholelithiasis. No evidence for acute cholecystitis. Mild intra and extrahepatic biliary ductal dilatation, and prominence of the main pancreatic duct. No discrete obstructing mass or choledocholithiasis appreciated. MRCP may be helpful. Mild diffuse hepatic steatosis. Small benign-appearing hepatic cysts. Reading Location: [id number] Assessment & Plan Assessment/Plan (1) COPD (chronic [...] full verified Charges/Coding Visit Charges Inpatient E&M: 73406 Init Hosp L2 05/16/252025 Cosigner Signature (if applicable): CC: Dr. Claudine Ruiz DO; Dr. Zachary Coffey MD~ Signed [facility]09-29-2025 [facility] Medical Records Department [address] [place] [address] History Physical Exam 05/16/252006 MR#: [id number] Acct: [id number] Name: NORA GRANDE Rep #: [id number] : 1955 70 From: Zachary Coffey MD PCP: Dr. Claudine Ruiz, DO Status:REG ER Location: ED HPI - [...] mg PO QHS 10/18/16 Unknown Histo ry multivitamin,oc-txak-lotnxtnm 27 1 tab PO DAILY 10/18/16 Unknown [...] mcg-umeclid 1 inh inhalation DAILY #60 ea 03/11 Unknown Rx 62.5 mcg-vilant 25 mcg inhalat.powder [...] 05/16/25 16:40 05/16/25 17:00 (more content not included)...[facility]09-29-2025 Radiology Diagnostic study note [facility] Imaging Services [address] [place], [place] [address] Gallbladder MR#: [id number] Acct: [id number] Name: NORA GRANDE Rep #: [id number] : 1955 F 70 From: Alan Rubio MD PCP: Dr. Claudine Ruiz, DO Status: REG ER Study:Gallbladder Date of Exam: 05/16/25 Exam# [id number] Ordering Dr: Dmitry Neal MD PROCEDURE: US [...] steatosis. Small benign-appearing hepatic cysts. Reading Location: [id number] CC: Dr. Tamara Neal MD; Dr. Claudine Ruiz DO ~ Tobacco Educator: Signed [facility]09-29-2025 Radiology Diagnostic study note [facility] Imaging Services [address] [place], [place] [address] Abdomen/Pelvis W IV Cont ONLY MR#: [id number] Acct: [id number] Name: NORA GRANDE Rep #: [id number] : 1955 F 70 From: Marvin Weems MD PCP: Dr. Claudine Ruiz DO Status: REG ER Study:Abdomen/Pelvis W IV Cont ONLY Date of E xam: 05/16/25 Exam# [id number] Ordering Dr: Dmitry Neal MD PROCEDURE: ABDOMEN/PELVIS [...] normal. Cholelithiasis. No definitive choledocholithiasis. Reading Location: [place] [address] CC: Dr. Tamara Neal MD; Dr. Claudine Ruiz DO ~ Tobacco Educator: Signed [facility]09-29-2025 Discharge summary Author Tamara Neal [facility] Note Date/Time May 17, 2025 12:25am [facility] Medical Records Department [address] [place] [address] Emergency Department Summary 05/16/25 MR#: [id number] Acct: [id number] Name: NORA GRANDE Rep #:[id number] : 1955 70 From: Tamara Neal MD PCP: Dr. Claudine uRiz, Status:ADM IN Location: [place] [address] HPI HPI - GI History of Present [...] mg PO QHS anxiety 10/18/16 Unknown History multivitamin,rl-nfor-iayyfajf 27 1 tab PO DAILY supple ment [...] No guarding or rebound. : done with driver examiner at bedside. No hemorrhoids or fissures noted. [...] positive. Given these findings, discussed with on-call assistant prosecuting attorney, Dr. Tadeo, whostates with the abdominal pain and no other findings and MRCP is warranted. Discussed with patient and she is agreeable with admission. [facility]. Clinical impression: GI [...] % (Auto) 65.6 Lymph % (Auto) 21.9 [place] % (Auto) 10.2 H Eos % (Auto) [...] Clarity Clear Urine pH 6.0 Ur Specific [place] 1.010 Urine Protein 30 H Urine Glucose [...] normal. Cholelithiasis. No definitive choledocholithiasis. Reading Location: [place] [address] Gallbladder Ultrasound 05/16/25 16:59 IMPRESSION: Cholelithiasis. No evidence for acute cholecystitis. Mild intra and extrahepatic biliary ductal dilatation, and prominence of the main pancreatic duct. No discrete obstructing mass or choledocholithiasis appreciated. MRCP may be helpful. Mild diffuse hepatic steatosis. Small benign-appearing hepatic cysts. Reading Location: [facility] Discharge Plan Disposition Disposition: Acute Care Hospital [facility] Discharge Date/Time: 05/16/25 21:57 What to do if you have Problems For any increased pain, shortness of breath, bleeding, nausea or vomiting, chestpain, or any unexpected problems, contact your Primary Care Provider. Call [facility] ([phone]) or report to the closest Emergency Room. Call 911 if necessary. 05/17/2524 <Electronically signed by Tamara Neal MD> Cosigner Signature (if applicable): CC: Dr. Claudine Ruiz, DO ~ Signed [facility] Work Phone: [phone] 332-899709-29-2025 NoteHNO ID: [id number] Author: CHASE CRAWFORD MD Service: ? Author Type: Physician Type: Progress Notes Filed: 05/16/2025 13:50 Note Text: Express Care Triage Note: Patient presents to the express care with complaint of left abdominal pain, blood in stool, and cough over the last 4 days. She is uncomfortable with transitions. She chooses ER evaluation and will go to [facility] ED.[facility]01[facility]11[facility]22 [facility]21 Note [facility]07-07-2021 [facility] 02-20-2021 [facility]21 NoteHNO ID: [id number] Author: Interface Note Service: ? Author Type: ? Type: Progress Notes Filed: 01/20/2021 5:50 AM Note Text: Epic Scheduled Downtime: 01/20/2021 1:00:00 AM to 01/20/2021 5:27[facility] Note [facility]06-02-2021 [facility] 2021 [facility]02[facility]21 [facility]01[facility]01[facility]31[facility]21 [facility]31[facility]30[facility]2021 Note [facility]05-30-2021 [facility] 01-13-2021 [facility]-28-2021 [facility]27-[facility]21 [facility]26-[facility]21 [facility]-26-2021 NoteHNO ID: [id number] Author: Ranjan Herrera MD Service: Orthopaedic Surgery Author Type: Physician Type: Plan of Care Filed: 01/10/2021 7:06 AM Note Text: OK for discharge. Hip repair at a later date. Continue nonoperative treatment R [facility]05-25-2021 NoteHNO ID: [id number] Author: Castillo Schaefer RN Service: Nursing Author Type: Registered Nurse Type: Nursing Progress Note Filed: 01/09/2021 12:07 PM Note Text: Physical therapy working with [facility]23[facility]21 [facility]22[facility]21 [facility]-22[facility]21 [facility]21-2021 Note [facility]05-21-2021 [facility] 01-04-2021 [facility]-19-2021 [facility]19-2021 [facility]18-[facility]21 [facility]18-2021 [facility]-18-2021 [facility]17-2021 [facility]-16-2021 Note [facility]05-16-2021 [facility] 12-30-2020 [facility]15-2021 [facility]14-2021 [facility]14-[facility]21 [facility]14-2021 [facility]13-2021 [facility]13-2021 [facility]-13-2021 Note [facility]05-12-2021 [facility] 12-27-2020 [facility]-12-2021 [facility]-11-2021 [facility]-11-2021 [facility]-11-2021 [facility]-11-2021 [facility]-10-2021 [facility]-10-2021 Note [facility]05-10-2021 [facility] 12-25-2020 [facility]-10-[facility] Author Connor Tadeo [facility] Note Date/Time May 18, 2025 2: 17pm [facility] Medical Records Department [address] [place] [address] Consultation - GI 05/17/251948 MR#: [id number] Acct: [id number] Name: NORA GRANDE Rep #:[id number] : 1955 70 From: Connor Tadeo DO PCP: Dr. Claudine Ruiz, Status:ADM IN [facility] H[facility] Consult Data Date of Consult: 05/17/25 [...] Small benign-appearing hepatic cysts MRCP is pending PFSH Medical History Hx of emotional problems Hormone deficiency Back problem HTN (hypertension) History of skin cancer CHF (congestive heart failure) Fibromyalgia Tobacco use Home Medications ?Medication ?Instructions ?Recorded ?Last Taken ?Type clonazepam 1 mg tablet 1 mg PO QHS anxiety 10/18/16 Unknown History multivitamin,pm-hngc-wjjokcsh 27 1 tab PO DAILY supple ment [...] % (Auto) 57.9, Lymph % (Auto) 25.6, [place] % (Auto) 13.6 H, Eos % (Auto) [...] is identified. Charges/Coding Visit Charges Inpatient E&M: 38061 Init Hosp L3 05/18/25 1417 <Electronically signed by Connor Friend > Cosigner Signature (if applicable): CC: Dr. Claudine Ruiz DO~ Signed [facility] Work Phone: Consult note Author Jorge Og [facility] Note Date/Time May 18, 2025 12 :46pm [facility] Medical Records Department [address] [place] [address] Pre-Anesthesia Evaluation 05/18/25 1238 MR#: [id number] Acct: [id number] Name: NORA GRANDE Rep #:[id number] : 1955 70 From: Jorge Peguero PCP: Dr. Claudine Ruiz DO Status:ADM IN Y Race: C Location: [place] [address] ASA Classification* ASA Classification ASA Classification: 3 [...] Procedure(s): ERCP Anesthesia History Anesthesia History - senior controls technician: Anesthesia History - senior controls technician Hx Hospitalization Yes 09/10/19 13:04 Any Problems [...] take am of surgery PONV PONV - senior controls technician: PONV - senior controls technician Female HX of Motion Sickness HX of N/V After Surgery Non-Smoker Duration of Surgery greater than 60 minutes Number of Risk Factors PONV Score Height & Weight Height & Weight: Anesthesia: Height & Weight Height 5 ft 2 in 05/17/25 22:42 Weight: 64.2 kg 05/17/25 22:42 Body Mass Index (BMI) 25.9 05/17/25 22:42 Respiratory Assessment Respiratory Assessment - senior controls technician: Respiratory Tract Infection Hx - senior controls technician Hx Respiratory Tract Infection No 05/18/25 01:02 STOP Sleep Apnea STOP Sleep Apnea - senior controls technician: STOP Sleep Apnea - senior controls technician Hx Hypertension Yes 05/16/25 22:11 Hx Sleep [...] Tobacco Use History Tobacco Use History - senior controls technician: Tobacco Use History - senior controls technician Tobacco Use Cigarettes 12/24/20 17:14 Smoking Status Current every day smoker 05/17/25 07:49 Hx Tobacco Use Yes 05/16/25 22:11 Years Smoking Packs Smoked per Day Smoking Cessation Date was within the last 15 years Hx Smoking Cessation Date Hx Smoking Cessation Counseling Hematologic Medial History Hematologic Hx - senior controls technician: Hematologic Medical Hx - documentation consultant Hx of Blood Transfusion No 05/16/25 22:11 [...] confused, unrespo /Reproduction History /Reproductive History - senior controls technician: /Reproductive Hx- senior controls technician Hx Now No 05/18/25 01:02 Gestational Age [...] mls @ 15 mls/hr 05/16/25 22:05 IV .[id number] PRN Saline Flush Sodium Chloride 250 mls @ 15 mls/hr 05/16/25 22:05 IV .[id number] PRN Additional IVPB Infusion Ketorolac Tromethamine 15 [...] mg PO QHS anxiety 10/18/16 Unknown History multivitamin,ad-nugo-qjkqbtzz 27 1 tab PO DAILY supple ment [...] Jorge Sanchez Signature: Date CC: ~ Signed [facility] Work Phone: Consult note Author Carlo Arias [facility] Note Date/Time May 18, 2025 2: 06pm [facility] Medical Records Department [address] [place] [address] Anesthesia Postop Eval I 05/18/251404 MR#: [id number] Acct: [id number] Name: NORA GRANDE Rep #:[id number] : 1955 70 From: Carlo Arias PCP: Dr. Claudine Ruiz, DO Status:ADM IN Race: C Location: [place] [address] Anesthesia: Postop Eval I Current Vital Signs [...] Anesthesia document: Postop Eval 1 completed: Yes 05/18/251405 <Electronically signed by Carlo Arias > Date _ Carlo Sanchez Signature: Date CC: ~ Signed [facility] Work Phone: Consult note Author Jorge Og [facility] Note Date/Time May 18, 2025 3: 13pm [facility] Medical Records Department [address] [place] [address] Anesthesia Postop Eval II 05/18/25 1513 MR#: [id number] Acct: [id number] Name: NORA GRANDE Rep #:[id number] : 1955 70 From: Jorge Peguero PCP: Dr. Claudine Ruiz, DO Status:ADM IN Y Race: C Location: [place] [address] Anesthesia Postop Eval I Sum Postop Eval [...] MD Cosigner Signature: Date CC: ~ Signed [facility] Work Phone: Discharge summary Author Yordan Newman [facility] Note Date/Time May 19, 2025 3: 15pm [facility] Medical Records Department [address] [place] [address] Discharge Summary 05/19/25 1510 MR#: [id number] Acct: [id number] Name: NORA GRANDE Rep #:[id number] : 1955 70 From: Yordan Newman MD PCP: Dr. Claudine Ruiz, Status:ADM IN Location: [facility] AJ224-4 Providers Date of Admission: 05/16/25 Date of Discharge: 05/19/25 Primary Care Physician: Dr. Claudine Ruiz DO Consultations 05/16/25 22:04 Consult: Gastroenterology Routine Consulting Provider: [facility] Reason for Consult: Cholelithiasis EMERGENT Consult: [...] tablet 1 mg PO QHS anxiety 10/18/16 multivitamin,bl-nylr-okcutezb 27 mg-0.4 mg tablet 1 tab PO [...] % (Auto) 65.2, Lymph % (Auto) 17.3 L,[place] % (Auto) 14.9 H, Eos % (Auto) [...] Provider: Yordan Newman Primary Care Provider: Claudine Ruiz Consulting Providers: Danilo Salvador; Connor Tadeo; Christina [...] 1 MG tablet 1 mg PO QHS multivitamin,oy-uqxj-rzeogoce 1 TABLET tablet 1 tab PO DAILY albuterol sulfate 90 mcg/actuation HFA aerosol inhaler 2 puff INHALATION Q6H PRN (Reason: shortness of breath or wheezing) Qty: 18 11RF Trelegy Ellipta 200-62.5-25 mcg blister with device 1 inh inhalation DAILY Qty: 60 11RF Referrals / Follow Up: Claudine Ruiz DO [Primary Care Provider, Family Practice] - Within 1 Week Connor Tadeo DO [Med Staff - Active Staff, Gastroenterology] - Within 2 Weeks Disposition Disposition (needs filled in before D/C Order can be placed): Home, Self Care Charges/Coding Visit Charges Inpatient E&M: 49850 Disch Hosp >30min 05/19/25 1515 <Electronically signed by Yordan Newman MD> Cosigner Signature (if applicable): CC: Dr. Yordan Newman MD; Dr. Claudine Ruiz DO~ Signed [facility] Work Phone: Evaluation noteNo assessment information available [facility] Work Phone: Evaluation note* Diagnosis Onset Date Resolution Status JORGE (obstructive sleep apnea) chronic Smoking greater than 30 pack years chronic Stage 2 moderate COPD by GOLD classification chronic [facility] Work Phone: Evaluation note* Diagnosis Onset Date Resolution Status JORGE (obstructive sleep apnea) chronic Smoking greater than 30 pack years chronic Stage 2 moderate COPD by GOLD classification chronic JORGE (obstructive sleep apnea) chronic Smoking greater than 30 pack years chronic Stage 2 moderate COPD by GOLD classification [facility] Work Phone: Evaluation [...] pack years chronic May 16, 2025 8:26pm [facility] Work Phone: History and physical note Author Zachary Coffey [facility] Note Date/Time May 16, 2025 8:26pm [facility] Medical Records Department [address] [place] [address] History & Physical Exam 05/16/252006 MR#: [id number] Acct: [id number] Name: NORA GRANDE Rep #:[id number] : 1955 70 From: Zachary Coffey MD PCP: Dr. Claudine Ruiz, DO Status:REG ER Location: ED HPI - [...] 1 mg PO QHS 10/18/16 Unknown History multivitamin,nw-lapm-swmrsiel 27 1 tab PO DAILY Unknown History [...] % (Auto) 65.6, Lymph % (Auto) 21.9, [place] % (Auto) 10.2 H, Eos % (Auto) [...] Clarity Clear, Urine pH 6.0, Ur Specific [place] 1.010, Urine Protein 30 H, Urine Glucose [...] normal. Cholelithiasis. No definitive choledocholithiasis. Reading Location: [place] [address] Gallbladder Ultrasound 05/16/25 16:59 IMPRESSION: Cholelithiasis. No evidence for acute cholecystitis. Mild intra and extrahepatic biliary ductal dilatation, and prominence of the main pancreatic duct. No discrete obstructing mass or choledocholithiasis appreciated. MRCP may be helpful. Mild diffuse hepatic steatosis. Small benign-appearing hepatic cysts. Reading Location: [facility] Assessment & Plan Assessment/Plan (1) COPD (chronic [...] full verified Charges/Coding Visit Charges Inpatient E&M: 93294 Init Hosp L2 05/16/252025 <Electronically signed by Zachary Coffey MD> Cosigner Signature (if applicable): CC: Dr. Claudine Ruiz DO; Dr. Zachary Coffey MD~ Signed [facility] Work Phone: progress note Author Christina Mendez [facility] Note Date/Time May 16, 2025 11:46pm [facility] Medical Records Department [address] [place] [address] Progress Note - Hospitalist 05/16/25 2337 MR#: [id number] Acct: [id number] Name: NORA GRANDE Rep #:[id number] : 1955 70 From: Christina Joyner PCP: Dr. Claudine Ruiz, DO Status:ADM IN Location: [facility] [id number] Hospitalist Note Pt admitted from ER without having received any analgesia for her severe 9/10 abdominal pain. Only ondansetron ordered for nausea at this time. Order placed for ketorolac 15mg IV q6h PRN pain 1-5/10 and hydromorphone 0.2mg IV q4h PRN pain 6-10/10. Monitoring renal function. 05/16/252343 <Electronically signed by Christina BERRIOSC> Cosigner Signature (if applicable): CC: ~ Signed ADDENDUM by FEDERICO Mendez on 05/16/25 at 2346 Addendum Dulcolax suppository x1 ordered for c/o no BM "for a while" and moderate stool burden noted on CT abd/pelvis. 05/16/252345<Electronically signed by Christina BERRIOSC> Cosigner Signature (if applicable): cc: ~* Signed [facility] Work Phone: Prohwuyv note Author Jaylen Mike [facility] Note Date/Time May 17, 2025 11:19am [facility] Medical Records Department [address] [facility] [place] [address] Progress Note - Hospitalist 05/17/25 1114 MR#: [id number] Acct: [id number] Name: NORA GRANDE Rep #:[id number] : 1955 70 From: Jaylen franco MD PCP: Dr. Claudine Ruiz, DO Status:ADM IN Location: [facility] [id number] Subjective Subjective Abdominal pain is improved today. [...] % (Auto) 65.6, Lymph % (Auto) 21.9, [place] % (Auto) 10.2 H, Eos % (Auto) [...] Clarity Clear, Urine pH 6.0, Ur Specific [place] 1.010, Urine Protein 30 H, Urine Glucose [...] % (Auto) 57.9, Lymph % (Auto) 25.6, [place] % (Auto) 13.6 H, Eos % (Auto) [...] normal. Cholelithiasis. No definitive choledocholithiasis. Reading Location: [place] [address] Gallbladder Ultrasound 05/16/25 16:59 IMPRESSION: Cholelithiasis. No evidence for acute cholecystitis. Mild intra and extrahepatic biliary ductal dilatation, and prominence of the main pancreatic duct. No discrete obstructing mass or choledocholithiasis appreciated. MRCP may be helpful. Mild diffuse hepatic steatosis. Small benign-appearing hepatic cysts. Reading Location: [facility] Physical Exam Narrative General: Alert, Oriented x3, [...] DVT: Lovenox Charges/Coding Visit Charges Inpatient E&M: 84322 Subs Hosp L2 05/17/25 1119 <Electronically signed by Jaylen Mike MD> Cosigner Signature (if applicable): CC: ~ Signed [facility] Work Phone: Progress note Author Yordan Newman [facility] Note Date/Time May 18, 2025 8: 34am [facility] Medical Records Department [address] [place] [address] Progress Note - Hospitalist 05/18/25 0827 MR#: [id number] Acct: [id number] Name: CHRISTIANENORA RAE Rep #:[id number] : 1955 70 From: Yordan Newman MD PCP: Dr. Claudine Ruiz, DO Status:ADM IN Location: [facility] [id number] Reason for Visit Chief Complaint: Abdominal pain [...] masses, possibly age related . Reading Location: [place] [address] Physical Exam Narrative GENERAL: cooperative HEENT: Atraumatic; [...] 40 Minutes Charges/Coding Visit Charges Inpatient E&M: 10959 Subs Hosp L2 05/18/25 0834 <Electronically signed by Yordan Newman MD> Cosigner Signature (if applicable): CC: ~ Signed [facility] Work Phone: Reason for referral (narrative)No reason for referral information [facility] Work Phone: Summary Purpose Family History No Family History Records Found Relationship Condition Age at Onset Recorded Date/T valencia sister Diabetes mellitus Unknown brother Diabetes mellitus Unknown Cardiac disease Unknown father Cardiac disease Unknown Advance Directives No Advanced Directives Records Found Advance Directive Response Recorded Date/ Time Living Will No December 24, 2020 5: 14pm Power of Metal Hardener No December 24, 2020 5:14pm Advance Directive Response Recorded Date/ Time Living Will No December 24, 2020 4: 14pm Power of Metal Hardener No December 24, 2020 4:14pm Advance Directive Response Recorded Date/ Time Do you have a Healthcare Power of Metal Hardener? No May 16, 2025 10:11pm Chief Complaint [...] Date [facility] Cholelithiases May 16, 2025 8:26pm CHF (congestive heart failure) May 16, 2025 8:26pm COPD (chronic obstructive pulmonary dise ase) May 16, 2025 8:26pm Fibromyalgia May 16, 2025 8:26pm HTN (hypertension) May 16, 2025 8:26pm JORGE (obstructive sleep apnea) May 16, 2025 8:26pm Smoking greater than 30 pack years Bke josiah 2024 8:26pm Chief Complaint Admit Date SCREENING March 02, 2025 2:47 pm abd pain May 16, 2025 8:07pm CHOLELITHIASIS May 16, 2025 8:26pm CHOLELITHIASIS May 17, 2025 11:14am CHOLELITHIASIS May 17, 2025 7:49pm CHOLELITHIASIS May 18, 2025 8: 27am CHOLELITHIASIS May 19, 2025 10 :04am Chief Complaint Admit Date SCREENING March 02, 2025 2:47 pm abd pain May 16, 2025 8:07pm CHOLELITHIASIS May 16, 2025 8:26pm CHOLELITHIASIS May 17, 2025 11:14am CHOLELITHIASIS May 17, 2025 7:49pm CHOLELITHIASIS May 18, 2025 8: 27am CHOLELITHIASIS May 19, 2025 10 :04am HOSP FU Cholelithiasis May 26, 2025 1:47pm SMOKER June 02, 2025 4 :40pm Reason for Visit Admit Date CHF (congestive heart failure) May 16, 2025 8:26pm COPD (chronic obstructive pulmonary dise ase) May 16, 2025 8:26pm Fibromyalgia May 16, 2025 8:26pm HTN (hypertension) May 16, 2025 8:26pm JORGE (obstructive sleep apnea) May 16, 2025 8:26pm Smoking greater than 30 pack years Septe mber 2024 8:26pm Abnormal finding on imaging of liver Sep tember 2024 8:26pm Cholelithiases May 16, 2025 8:26pm COPD (chronic obstructive pulmonary dise ase) May 26, 2025 1:47pm Abnormal finding on imaging of liver Oct nita 2024 1:47pm Cholelithiases May 26, 2025 1: 47pm Additional Source Comments INFORMATION SOURCE (unrecogn ized section and content) DATE CREATED AUTHOR 10/07/2018 [facility] DATE CREATED AUTHOR AUTHOR'S ORGANIZ ATION [facility] DATE CREATED AUTHOR AUTHOR'S ORGANIZ ATION 08/29/2021 [facility] DATE CREATED AUTHOR AUTHOR'S ORGANIZ ATION 05/22/2025 [facility] DATE CREATED AUTHOR AUTHOR'S ORGANIZ ATION 06/27/2025 [facility] Goals (unrecognized section and content) Goals may [...] Active Member Role Status Dates Dr. Claudine Ruiz DO Family Provider Active Dr. Claudine Ruiz DO Primary Care Provider Active Team Status: Inactive Member Role Status Dates Claudine GARCIA Primary Care Provider, Referring Pro vider Active Dr. Myles Self MD Attending Provider Active Team Status: Inactive Member Role Status Dates Dr. Myles Self MD Attending Provider, Referring Pr ovider Active Dr. Claudine Ruiz DO Primary Care Provider Active Team Status: Active Member Role Status Dates Dr. Claudine Ruiz DO Primary Care Prov ider, Referring Provider, Other Provider Active Dr. Mikel Cowan DO Attending Provider Active Team Status: Inactive Member Role Status Dates Dr. Claudine Ruiz DO Primary Care Prov ider, Attending Provider, Referring Provider Active Team Status: Inactive Member Role Status Dates Dr. Claudine Ruiz DO Primary Care Provider, Referrin g Provider Active Vanesa Hatfield FINANCIAL REPORT SERVICE SALES AGENT, FINANCIAL REPORT SERVICE SALES AGENT-C Attending Provider Active Team Status: Inactive Member Role Status Dates Dr. Claudine Ruiz DO Primary Care Provider Active Vanesa Hatfiled FINANCIAL REPORT SERVICE SALES AGENT, FINANCIAL REPORT SERVICE SALES AGENT-C Attending Provider, Referrin g Provider Active Team Status: Active Member Role/Relationship Status Dates Dr. Claudine Ruiz DO Primary Care Provider Active Team Status: Inactive Member Role/Relationship Status Dates Dr. Claudine Ruiz DO Primary Care Provider Active Start: March 02, 2025 End: March 02, 2025 Dr. Claudine Ruiz DO Attending Provider Active Start: March 02, 2025 End: March 02, 2025 Dr. Claudine Ruiz DO Referring Provider Active Start: March 02, 2025 End: March 02, 2025 Team Status: Active Member Role/Relationship Status Dates Dr. Claudine Ruiz DO Primary care physician Active Team Status: Inactive Member Role/Relationship Status Dates Dr. Claudine Ruiz DO Primary care physician Active Start: March 02, 2025 End: March 02, 2025 Dr. Claudine Ruiz DO Attending physician Active Start: March 02, 2025 End: March 02, 2025 Dr. Claudine Ruiz DO Referring Provider Active Start: March 02, 2025 End: March 02, 2025 Team Status: Active Member Role/Relationship Status Dates Dr. Claudine Ruiz DO Primary care physician Active Start: May 16, 2025 Dr. Tamara Neal [facility] Active Start: May 16, 2025 Dr. Zachary Coffey MD Attending physician Active Start: May 16, 2025 Team Status: Active Member Role/Relationship Status Dates Dr. Claudine Ruiz DO Primary care physician Active Start: May 16, 2025 Dr. Tamara Neal MD Emergency [facility] Physician Active Start: May 16, 2025 Dr. Zachary Coffey MD Admitting physician Active Start: May 16, 2025 Dr. Zachary Coffey MD Nurse Practitioner Active Start: May 16, 2025 Dr. Danilo Salvador MD Nurse Practitioner Active Start: May 16, 2025 Dr. Connor Tadeo DO Nurse Practitioner Active Start: May 16, 2025 Christina Mendez NP-C Nurse Practitioner Active S tart: May 16, 2025 AGUSTINA [facility] Nurse Practitioner Active Start: May 16, 2025 GREGOR Hernandez Nurse Practitioner Active Start: May 16, 2025 Dr. Yordan Newman MD Attending physician Active Start: May 16, 2025 Dr. Jaylen Mike MD Nurse Practitioner Active Start: April Team Status: Active Member Role/Relationship Status Dates Dr. Claudine Ruiz DO Primary care physician Active Start: May 17, 2025 Dr. Tamara Neal MD Emergency [facility] Physician Active Start: May 17, 2025 Dr. Zachary Coffey MD Admitting physician Active Start: May 17, 2025 Dr. Zachary Coffey MD Nurse Practitioner Active Start: May 17, 2025 Dr. Danilo Salvador MD Nurse Practitioner Active Start: May 17, 2025 Dr. Connor Tadeo DO Nurse Practitioner Active Start: May 17, 2025 Christina Mendez NP-C Nurse Practitioner Active S tart: May 17, 2025 AGUSTINA [facility] Nurse Practitioner Active Start: May 17, 2025 GREGOR Hernandze Nurse Practitioner Active Start: May 17, 2025 Dr. Jaylen Mike MD Attending physician Active Start: April Dr. Jaylen Mike MD Nurse Practitioner Active Start: April Team Status: Active Member Role/Relationship Status Dates Dr. Claudine Ruiz DO Primary care physician Active Start: May 17, 2025 Dr. Tamara Neal MD Emergency [facility] Physician Active Start: May 17, 2025 Dr. [...] Practitioner Active S tart: May 17, 2025 AGUSTINA [facility] Nurse Practitioner Active Start: May 17, 2025 GREGOR Hernandez Nurse Practitioner Active Start: May 17, 2025 Dr. Yordan Newman MD Nurse Practitioner Active Start: May 17, 2025 Dr. Jaylen Mike MD Nurse Practitioner Active Start: April Team Status: Active Member Role/Relationship Status Dates Dr. Claudine Ruiz DO Primary care physician Active Start: May 18, 2025 Dr. [facility]ara [facility] Active Start: May 18, 2025 Dr. Zachary Coffey MD Admitting physician Active Start: May 18, 2025 Dr. Zachary Coffey MD Nurse Practitioner Active Start: May 18, 2025 Dr. Danilo Salvador MD Nurse Practitioner Active Start: May 18, 2025 Dr. Connor Tadeo DO Nurse Practitioner Active Start: May 18, 2025 Christina Mendez NP-C Nurse Practitioner Active S tart: May 18, 2025 Rebecca Singh NP-C Nurse Practitioner Active Start: May 18, 2025 GREGOR Hernandez Nurse Practitioner Active Start: May 18, 2025 Dr. Yordan Newman MD Attending physician Active Start: May 18, 2025 Dr. Yordan Newman MD Nurse Practitioner Active Start: May 18, 2025 Dr. Jaylen Mike MD Nurse Practitioner Active Start: May 18, 2025 Team Status: Active Member Role/Relationship Status Dates Dr. Claudine Ruiz DO Primary care physician Active Start: May 18, 2025 Dr. Connor Tadeo DO Attending physician Active Start: May 18, 2025 Team Status: Inactive Member Role/Relationship Status Dates Dr. Claudine Ruiz DO Primary care physician Active Start: May 16, 2025 End: May 19, 2025 Dr. Tamara Neal MD Emergency [facility] t Physician Active Start: May 16, 2025 [...] May 16, 2025 End: May 19, 2025 FEDERICO Patterson Nurse Practitioner Active S tart: May 16, 2025 End: May 19, 2025 FEDERICO Heart Nurse Practitioner Active Start: May 16, 2025 End: May 19, 2025 GREGOR Hernandez Nurse Practitioner Active Start: May 16, 2025 End: May 19, 2025 Dr. Yordan Newman MD Attending physician Active Start: May 16, 2025 End: May 19, 2025 Dr. Jaylen Mike MD Nurse Practitioner Active Start: April End: May 19, 2025 Team Status: Active Member Role/Relationship Status Dates Dr. Claudine Ruiz DO Primary care physician Active Start: May 19, 2025 Dr. Tamara Neal MD Emergency [facility] Physician Active Start: May 19, 2025 Dr. Zachary Coffey MD Admitting physician Active Start: May 19, 2025 Dr. Zachary Coffey MD Nurse Practitioner Active Start: May 19, 2025 Dr. Danilo Salvador MD Nurse Practitioner Active Start: May 19, 2025 Dr. Connor Tadeo DO Nurse Practitioner Active Start: May 19, 2025 AGUSTINA PattersonC Nurse Practitioner Active S tart: May 19, 2025 FEDERICO Heart Nurse Practitioner Active Start: May 19, 2025 GREGOR Hernandez Nurse Practitioner Active Start: May 19, 2025 Dr. Yordan Newman MD Attending physician Active Start: May 19, 2025 Dr. Yordan Newman MD Nurse Practitioner Active Start: May 19, 2025 Dr. Jaylen Mike MD Nurse Practitioner Active Start: May 19, 2025 Team Status: Active Member Role/Relationship Status Dates Dr. Claudine Ruiz DO Primary care physician Active Start: May 17, 2025 Dr. Tamara Neal MD Emergency [facility] t Physician Active Start: May 17, 2025 [...] Practitioner Active S tart: May 17, 2025 FEDERICO Heart Nurse Practitioner Active Start: May 17, 2025 GREGOR Hernandez Nurse Practitioner Active Start: May 17, 2025 Dr. Yordan Newman MD Nurse Practitioner Active Start: May 17, 2025 Dr. Jaylen Mike MD Referring Provider Active Start: April Dr. Jaylen Mike MD Nurse Practitioner Active Start: April Team Status: Active Member Role/Relationship Status Dates Dr. Claudine Ruiz DO Primary care physician Active Start: May 18, 2025 Dr. Connor Tadeo DO Attending physician Active Start: May 18, 2025 Dr. Yordan Newman MD Referring Provider Active Start: May 18, 2025 Team Status: Inactive Member Role/Relationship Status Dates Dr. Claudine Ruiz DO Primary care physician Active Start: May 26, 2025 End: May 26, 2025 Dr. Claudine Ruiz DO Referring Provider Active Start: May 26, 2025 End: May 26, 2025 Dr. Connor Tadeo DO Attending physician Active Start: May 26, 2025 End: May 26, 2025 Team Status: Active Member Role/Relationship Status Dates Dr. Claudine Ruiz DO Primary care physician Active Start: June 02, 2025 Vanesa Hatfield FINANCIAL REPORT SERVICE SALES AGENT, FINANCIAL REPORT SERVICE SALES AGENT-C Attending physician Active Start: June 02, 2025 Vanesa Hatfield FINANCIAL REPORT SERVICE SALES AGENT, FINANCIAL REPORT SERVICE SALES AGENT-C Referring Provider Active Start: June 02, 2025 FOR RECORDS PERTAINING TO PATIENTS WHO [...] BE BASED ON THE PRIMARY CLINICAL RECORDS. [facility]. provides no warranty or guarantee of the accuracy or completeness of information in this document.
== END | disposition home or self-care (01) ==
LOC: OPBD 14:39
PROVIDERS: PCP Family Medicine; Referring Provider Family Medicine; Visit Provider Family Medicine
DX: Z13.820 Encounter for screening for osteoporosis (principal); M85.88 Other specified disorders of bone density and structure, other site
CPT/HCPCS: 77080

== ENCOUNTER 2025-07-11 09:56 | Day surgery (SDC) | payer MEDICARE, MEDICAID, SELFPAY ==
--- NOTE | 2025-07-07 15:19 | PAT.ANE_ITS ---
Pre-Assessment Diagnosis/Proposed Procedure Planned Operative Procedure(s): EGD Anesthesia History Anesthesia History - medical office representative: Anesthesia History - medical office representative Hx Hospitalization Yes: 06-11 ERCP 07/07/25 14:51 Any Problems With Anesthesia No 07/07/25 14:51 Cholinesterase deficiency No 07/07/25 14:51 You/Your Family Experience No 07/07/25 14:51 fever (hyperthermia) with Relationship Recent Exposure to Contagious No 05/18/25 01:02 Disease Does patient have nerve No 07/07/25 14:51 stimulator Patient instructed to have device shut off --Does patient have Pacemaker or ICD? When Was Last Pacemaker Check QUESTION #4 FULL TEXT: You/Your Family Experience fever (hyperthermia) with Anesthesia Last Oral Intake Last Oral intake: Last Oral Intake NPO since Meds taken in AM with sips of water? Meds patient instructed to take am of surgery PONV PONV - medical office representative: PONV - medical office representative Female Yes 07/07/25 14:51 HX of Motion Sickness No 07/07/25 14:51 HX of N/V After Surgery No 07/07/25 14:51 Non-Smoker No 07/07/25 14:51 Duration of Surgery greater No 07/07/25 14:51 than 60 minutes Number of Risk Factors 1 07/07/25 14:51 PONV Score Low Risk 07/07/25 14:51 Height & Weight Height & Weight: Anesthesia: Height & Weight Height 5 ft 2 in 05/17/25 22:42 Respiratory Assessment Respiratory Assessment - medical office representative: Respiratory Tract Infection Hx - medical office representative Hx Respiratory Tract Infection No 07/07/25 14:51 STOP Sleep Apnea STOP Sleep Apnea - medical office representative: STOP Sleep Apnea - medical office representative Hx Hypertension Yes 07/07/25 14:51 Hx Sleep Apnea No 07/07/25 14:51 CPAP BIPAP Do you snore loudly (louder No 07/07/25 14:51 than talking or can be heard Do you often feel tired/ No 07/07/25 14:51 fatigued/ sleepy during daytime? Has anyone observed you stop No 07/07/25 14:51 breathing during sleep? STOP Results Negative 07/07/25 14:51 QUESTION #5 FULL TEXT : Do you snore loudly (louder than talking or can be heard through closed doors)? 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 Specify any problems Hx of Preganancy in last 3 No 07/07/25 14:51 Months Nurse Filling Out Transfusion [email or web address] 07/07/25 14:51 & Questions: Date: 07/07/25 07/07/25 14:51 Time: 14:53 07/07/25 14:51 Patient unable to answer at this time (ie. confused, unrespo /Reproduction History /Reproductive History - medical office representative: /Reproductive Hx- medical office representative Hx Now No 07/07/25 14:51 Gestational Age (in weeks): EDC: Hx Hx Para Hx Section SAB No 07/07/25 14:51 Does the father of the baby or his family experience fever w Father of the baby Malignant Hypertension history comment PFSH Medical History Wears partial dentures Wears dentures Hx of emotional problems Hormone deficiency Back problem HTN (hypertension) History of skin cancer CHF (congestive heart failure) Fibromyalgia Tobacco use Home Medications ?Medication ?Instructions ?Recorded ?Last Taken ?Type clonazepam 1 mg tablet 1 mg PO QHS anxiety 10/18/16 Unknown History multivitamin,[id number] 27 1 tab PO DAILY supple ment 10/18/16 Unknown History mg-0.4 mg tablet buspirone 15 mg tablet 15 mg PO BID mood 10/09/23 U nknown History cyclobenzaprine 10 mg tablet 10 mg PO BID muscle spasm 10/09/23 Unknown History olanzapine 15 mg tablet 15 mg PO QHS mood 10/09/23 U nknown History duloxetine 30 mg capsule,delayed 30 mg PO QDAY mood Unknown History release duloxetine 60 mg capsule,delayed 60 mg PO QDAY mood Unknown History release losartan 50 mg tablet 50 mg PO QDAY bp 10/29/23 Un known History potassium chloride 20 mEq 20 meq PO TID supplement Unknown History tablet,extended release(part/cryst) albuterol sulfate 90 mcg/actuation 2 puff inhalation Q 6H PRN 05/04/24 Unknown Rx aerosol inhaler shortness of breath or wheez ing #18 grams meclizine 25 mg tablet 50 mg PO BID vertigo 4 Unknown History fluticasone fur. 200 mcg-umeclid 1 inh inhalation MYRON Y sob #60 ea 11/22/24 Unknown Rx 62.5 mcg-vilant 25 mcg inhalat.powder (Trelegy Ellipta) sennosides 8.6 mg-docusate sodium 1 tab PO DAILY #30 t abs 05/26/25 Unknown Rx 50 mg tablet (Stimulant Laxative Plus) Allergy/AdvReac Type Severity Reaction Status Date / Time codeine Allergy Unknown Verified 07/07/25 14:42 ciprofloxacin (From Cipro) AdvReac Vomiting Verified 07/07/25 14:42 Family History Sister Diabetes Brother Diabetes Heart disease Father Heart disease Surgical History (Updated 05/27/25 @ 00:01 by Talha Frias) History of left hip replacement Hx of hysterectomy History of carpal tunnel release of both wrists Social History household members: none Smoking Status: Light Smoker (<10/day) Tobacco: How many years used: 40 Electronic Cigarette Use: with nicotine how long ago did patient quit smokin quit smoking cigarettes, 1ppd vaping currently second hand exposure: Yes Audit: Pertinent Findings Pertinent Findings EKG Perinent findings: 05/16/2025. Normal sinus rhythm 70 bpm. Possible left atrial lodgment. Echo (EF%) pertinent findings: 05/17/2020. Normal size function EF 65%. Recommendation Anesthesia Recommendation Anesthesia recommendation: OPTIMIZED for anesthesia
[2025-07-11] VITALS (9 sets, daily range): BP systolic 97–149; BP diastolic 69–99; PULSE 70–81; RESP 14–18; TEMP 36.1–36.6; O2SAT 90–94; BMI 26.2
[2025-07-11] MEDS: Lactated Ringers 1,000 ML 15 ML IV (10:31)
--- NOTE | 2025-07-11 10:42 | PRE.ANES_ITS ---
ASA Classification* ASA Classification ASA Classification: 3 (COPD, HTN, CHF, fibromyalgia) Assessment & Plan Anesthesia* Anesthesia Assessment Anesthesia Assessment: Discussed sedation and/or anesthesia options, risks, benefits, and alternatives with patient/parents/legal guardian/POA. Questions invited. The patient/parents/legal guardian/POA seems to understand and agrees to proceed with anesthesia plan. Reviewed the physical assessment, medical history, allergy history and patient home medications list prior to surgery/procedure/anesthetic and documented any changes. Performed airway and anesthesia risk assessments. Duoneb given preop for COPD mgmt Anesthesia Type Anesthesia Type: General History Source History Obtained from:: Patient and Chart Anesthesia Focused Assessment* Temperature: 97.9 F Pulse Rate: 74 Blood Pressure: 135/99 Respiratory Rate: 16 Pulse Ox: 94 Oxygen Delivery Method: Room Air Airway Assessment Mouth opens: >3 cm Mallampati Score: III Neck Range of motion (ROM): Full ROM Labs Anesthesia Preop lab: CBC WBC, (4.4-11.0) 8.7 K/mm3 05/19/25, 05:21 RBC, (4.2-5.4) 4.12 M/mm3 L 05/19/25, 05:21 Hgb, (12.0-15.0) 12.2 g/dL 05/19/25, 05:21 Hct, (37-47) 37.1 % 05/19/25, 05:21 Plt Count, (150-450) 318 K/mm3 05/19/25, 05:21 CHEMISTRY Potassium, (3.3-5.1) 4.1 mmol/L 05/19/25, 05:21 Sodium, (133-145) 139 mmol/L 05/19/25, 05:21 Magnesium, (1.5-2.2) 2.3 mg/dL H 05/19/25, 05:21 Phosphorus, (2.7-4.5) 3.0 mg/dL 05/19/25, 05:21 BUN, (4-19) 9 mg/dL 05/19/25, 05:21 Creatinine, (0.70-1.20) 1.00 mg/dL 05/19/25, 05:21 Glucose, (70-99) 201 mg/dL H 05/19/25, 05:21 TSH, (0.358-3.74) 2.47 uIU/mL 10/21/19, 15:09 COAG Pre-Assessment Diagnosis/Proposed Procedure Planned Operative Procedure(s): EGD Anesthesia History 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 When Was Last Pacemaker Check QUESTION #4 FULL TEXT: You/Your Family Experience fever (hyperthermia) with Anesthesia Last Oral Intake Last Oral intake: Last Oral Intake NPO since 09:00 07/11/25 10:24 Meds taken in AM with sips of Yes 07/11/25 10:24 water? 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 Female Yes 07/07/25 14:51 HX of Motion Sickness No 07/07/25 14:51 HX of N/V After Surgery No 07/07/25 14:51 Non-Smoker No 07/07/25 14:51 Duration of Surgery greater No 07/07/25 14:51 than 60 minutes Number of Risk Factors 1 07/07/25 14:51 PONV Score Low Risk 07/07/25 14:51 Height & Weight Height & Weight: Anesthesia: Height & Weight Height 5 ft 2 in 07/11/25 10:24 Weight: 64.864 kg 07/11/25 10:24 Body Mass Index (BMI) 26.2 07/11/25 10:24 Respiratory Assessment Respiratory Assessment - optical manufacturing technician: Respiratory Tract Infection Hx - optical manufacturing technician Hx Respiratory Tract Infection No 07/07/25 14:51 STOP Sleep Apnea STOP Sleep Apnea - optical manufacturing technician: STOP Sleep Apnea - optical manufacturing technician Hx Hypertension Yes 07/07/25 14:51 Hx Sleep Apnea No 07/07/25 14:51 CPAP BIPAP Do you snore loudly (louder No 07/07/25 14:51 than talking or can be heard Do you often feel tired/ No 07/07/25 14:51 fatigued/ sleepy during daytime? Has anyone observed you stop No 07/07/25 14:51 breathing during sleep? STOP Results Negative 07/07/25 14:51 QUESTION #5 FULL TEXT : Do you snore loudly (louder than talking or can be heard through closed doors)? Tobacco Use History Tobacco Use History - optical manufacturing technician: Tobacco Use History - optical manufacturing technician Tobacco Use Cigarettes 12/24/20 17:14 Smoking Status Light Smoker (<10/day) 07/07/25 14:51 Hx Tobacco Use Yes 07/07/25 14:51 Years Smoking 30 07/07/25 14:51 Packs Smoked per Day Smoking Cessation Date was within the last 15 years Hx Smoking Cessation Date Hx Smoking Cessation Counseling Hematologic Medial History Hematologic Hx - optical manufacturing technician: Hematologic Medical Hx - mother tester Hx of Blood Transfusion No 07/07/25 14:51 Hx of Transfusion in last 3 No 07/07/25 14:51 Months Date of Last Transfusion (if within last 3 months) Ever experience any problems No 07/07/25 14:51 with transfusion(s)? Specify any problems Hx of Preganancy in last 3 No 07/07/25 14:51 Months Nurse Filling Out Transfusion [email or web address] 07/07/25 14:51 & Questions: Date: 07/07/25 07/07/25 14:51 Time: 14:53 07/07/25 14:51 Patient unable to answer at this time (ie. confused, unrespo /Reproduction History /Reproductive History - optical manufacturing technician: /Reproductive Hx- optical manufacturing technician Hx Now No 07/07/25 14:51 Gestational Age (in weeks): EDC: Hx Hx Para Hx Section SAB No 07/07/25 14:51 Does the father of the baby or his family experience fever w Father of the baby Malignant Hypertension history comment Active Medications Active Medications: Current Medications Generic Name Dose Route Start Last Admin Trade Name Freq PRN Reason Stop Dose Admin Lactated Ringer's 1,000 mls @ 15 mls/hr 07/11/25 10:15 11/24/25 10:31 IV 15 mls/hr .Q48H JEROD Administration PFSH Medical History Wears partial dentures Wears dentures Hx of emotional problems Hormone deficiency Back problem HTN (hypertension) History of skin cancer CHF (congestive heart failure) Fibromyalgia Tobacco use Home Medications ?Medication ?Instructions ?Recorded ?Last Taken ?Type clonazepam 1 mg tablet 1 mg PO QHS anxiety 10/18/16 Unknown History multivitamin,[id number]-[id number] 27 1 tab PO DAILY supple ment 10/18/16 Unknown History mg-0.4 mg tablet buspirone 15 mg tablet 15 mg PO BID mood 10/09/23 U nknown History cyclobenzaprine 10 mg tablet 10 mg PO BID muscle spasm 10/09/23 Unknown History olanzapine 15 mg tablet 15 mg PO QHS mood 10/09/23 U nknown History duloxetine 30 mg capsule,delayed 30 mg PO QDAY mood Unknown History release duloxetine 60 mg capsule,delayed 60 mg PO QDAY mood Unknown History release losartan 50 mg tablet 50 mg PO QDAY bp 10/29/23 History potassium chloride 20 mEq 20 meq PO TID supplement Unknown History tablet,extended release(part/cryst) albuterol sulfate 90 mcg/actuation 2 puff inhalation Q 6H PRN 05/04/24 Unknown Rx aerosol inhaler shortness of breath or wheez ing #18 grams meclizine 25 mg tablet 50 mg PO BID vertigo 4 Unknown History fluticasone fur. 200 mcg-umeclid 1 inh inhalation MYRON Y sob #60 ea 11/22/24 Unknown Rx 62.5 mcg-vilant 25 mcg inhalat.powder (Trelegy Ellipta) sennosides 8.6 mg-docusate sodium 1 tab PO DAILY #30 t abs 05/26/25 Unknown Rx 50 mg tablet (Stimulant Laxative Plus) Allergy/AdvReac Type Severity Reaction Status Date / Time codeine Allergy Unknown Verified 07/11/25 10:23 ciprofloxacin (From Cipro) AdvReac Vomiting Verified 07/11/25 10:23 Family History Sister Diabetes Brother Diabetes Heart disease Father Heart disease Surgical History (Updated 05/27/25 @ 00:01 by Talha Frias) History of left hip replacement Hx of hysterectomy History of carpal tunnel release of both wrists Social History household members: none Smoking Status: Current every day smoker tobacco type: cigarettes and e- cigarettes Tobacco: How many years used: 40 Electronic Cigarette Use: with nicotine how long ago did patient quit smokin quit smoking cigarettes, 1ppd vaping currently second hand exposure: Yes Review of Systems (Anesthesia) ROS Narrative System reviewed and no additional complaints, except as documented. Physical Exam Const alert, oriented x3 and average body habitus Resp normal respiratory effort, normal air movement and clear to auscultation bilaterally Cardio regular rate, regular rhythm and no murmurs; Negative for diaphoretic
--- NOTE | 2025-07-11 10:51 | PCM.HP.STD ---
HPI - General General Date of Admission: 07/11/25 Date of Service: 07/11/25 Chief Complaint: Biliary stent removal HPI Narrative [facility] hospitalization 05.16.25 - 05.19.25 pt presents with abdominal pain. reports constipation and dark blood in stool. abd/pelvis CT 05.16.25 Interval development of moderate right intrahepatic ductal dilatation of uncertain etiology. No definitive obstructing mass or stone in the right hepatic duct. Left biliary intrahepatic ducts normal. Cholelithiasis. No definitive choledocholithiasis. Gall Bladder US 05.16.25 Cholelithiasis. No evidence for acute cholecystitis. Mild intra and extrahepatic biliary ductal dilatation, and prominence of the main pancreatic duct. No discrete obstructing mass or choledocholithiasis appreciated. MRCP may be helpful. Mild diffuse hepatic steatosis. Small benign-appearing hepatic cysts. MRCP 05.17.25 Gall bladder calculi. No cholecystitis. Relatively prominent extra-hepatic biliary tracts with prominent pancreatic duct showing no intraluminal filling defects or pancreatic head masses, possibly age related. ERCP 05.18.25 A single localized biliary stricture was found in the lower third of the main bile duct. The stricture was benign appearing, fibrotic and indeterminate. The entire main bile duct was dilated, acquired. Choledocholithiasis was found. Complete removal was accomplished by biliary sphincterotomy and balloon extraction. One temporary stent was placed into the ventral pancreatic duct. A biliary sphincterotomy was performed. The biliary tree was swept. Cells for cytology obtained in the lower third of the main duct. OV 05.26.25 pt reports that since hospitalization she has been feeling sick; reports nausea, lightheadedness, fatigue, tingly, and dizziness. Pt reports decreased appetite as well. Biliary issues:?Reports no recurrence of abdominal pain since the procedure, and has been tolerating a regular diet. States the temporary pancreatic duct stent is scheduled for removal. Pulmonary issues:?Complains of intermittent shortness of breath and dizziness for the past week. Describes the shortness of breath as mild and occurring with exertion, such as walking short distances. Denies chest pain, palpitations, or cough. [facility] Medical History Wears partial dentures Wears dentures Hx of emotional problems Hormone deficiency Back problem HTN (hypertension) History of skin cancer CHF (congestive heart failure) Fibromyalgia Tobacco use Home Medications ?Medication ?Instructions ?Recorded ?Last Taken ?Type clonazepam 1 mg tablet 1 mg PO QHS anxiety 10/18/16 Unknown History multivitamin,lj-hdlz-gkgwavhv 27 1 tab PO DAILY supplement 10/18/16 Unknown History mg-0.4 mg tablet buspirone 15 mg tablet 15 mg PO BID mood 10/09/23 Unknown History cyclobenzaprine 10 mg tablet 10 mg PO BID muscle spasm 10/09/23 Unknown History olanzapine 15 mg tablet 15 mg PO QHS mood 10/09/23 Unknown History duloxetine 30 mg capsule,delayed 30 mg PO QDAY mood 10/29/23 Unknown History release duloxetine 60 mg capsule,delayed 60 mg PO QDAY mood 10/29/23 Unknown History release losartan 50 mg tablet 50 mg PO QDAY bp 10/29/23 07/11/25 History potassium chloride 20 mEq 20 meq PO TID supplement 10/29/23 Unknown History tablet,extended release(part/cryst) albuterol sulfate 90 mcg/actuation 2 puff inhalation Q6H PRN 05/04/24 Unknown Rx aerosol inhaler shortness of breath or wheezing #18 grams meclizine 25 mg tablet 50 mg PO BID vertigo 07/02/24 Unknown History fluticasone fur. 200 mcg-umeclid 1 inh inhalation DAILY sob #60 ea 11/22/24 Unknown Rx 62.5 mcg-vilant 25 mcg inhalat.powder (Trelegy Ellipta) sennosides 8.6 mg-docusate sodium 1 tab PO DAILY #30 tabs 05/26/25 Unknown Rx 50 mg tablet (Stimulant Laxative Plus) Allergy/AdvReac Type Severity Reaction Status Date / Time codeine Allergy Unknown Verified 07/11/25 10:23 ciprofloxacin (From Cipro) AdvReac Vomiting Verified 07/11/25 10:23 Family History Sister Diabetes Brother Diabetes Heart disease Father Heart disease Surgical History History of left hip replacement Hx of hysterectomy History of carpal tunnel release of both wrists Social History household members: none Smoking Status: Current every day smoker tobacco type: cigarettes and e-cigarettes Tobacco: How many years used: 40 Electronic Cigarette Use: with nicotine how long ago did patient quit smokin quit smoking cigarettes, 1ppd vaping currently second hand exposure: Yes ROS Constitutional Constitutional: Denies fatigue, fever(s), poor appetite, weight gain or weight loss Gastrointestinal Gastrointestinal: Denies belching, bloating, change in bowel habits, change in stool character, chewing difficulty, coffee ground emesis, constipation, cramping, diarrhea, dyspepsia, dysphagia, early satiety, excessive flatus, fecal incontinence, heartburn, hematemesis, hematochezia, hemorrhoids, loose stools, melena, nausea, odynophagia, rectal bleeding, tenesmus, vomiting or weight changes Vital Signs Vital Signs Vital Signs: 07/11/25 10:24 07/11/25 10:24 07/11/25 10:24 Temperature 97.9 F Temperature Source Temporal Pulse Rate 74 Respiratory Rate 16 Respiratory Pattern Normal Blood Pressure 135/99 H Blood Pressure Mean 111 Blood Pressure Source Monitor Blood Pressure Position Semi-Fowlers Blood Pressure Location Right Arm Baseline BP 135/99 Pulse Ox 94 Oxygen Delivery Method Room Air 07/11/25 10:44 07/11/25 10:44 Temperature 97.9 F Temperature Source Pulse Rate 81 74 Respiratory Rate 18 16 Respiratory Pattern Normal Blood Pressure 135/99 H Blood Pressure Mean Blood Pressure Source Blood Pressure Position Blood Pressure Location Baseline BP Pulse Ox 94 Oxygen Delivery Method Room Air Weight Weight: 143 lb Body Mass Index (BMI) 26.2 Physical Exam Const alert, oriented x3, no apparent distress and healthy appearing General Appearance: cooperative GI normal to inspection, nondistended, normoactive bowel sounds, soft to palpation, non-tender and non-distended Percussion: normal to percussion Rectal Exam: deferred Assessment & Plan Assessment/Plan (1) Encounter for removal of biliary stent: PLAN: Assessment and Plan Assessment and Plan (1) Abnormal finding on imaging of liver: Status: Acute (2) Cholelithiases: Status: Acute (3) COPD (chronic obstructive pulmonary disease): Status: Chronic Plan: Choledocholithiasis/Biliary Stricture:?Status post-ERCP with stone removal and pancreatic stent placement. Patient is currently asymptomatic regarding biliary issues. Stricture shows signs of resolution. COPD:?70-year-old with known COPD presenting with shortness of breath and dizziness. Symptoms are consistent with mild COPD exacerbation or related to other factors, and require further evaluation. Dizziness:?Differential diagnosis includes COPD-related issues (hypoxia), dehydration, orthostatic hypotension, or cardiac causes.? Plan Biliary Management:?Schedule endoscopic procedure for removal of the temporary pancreatic duct stent. Follow up with gastroenterology to monitor for any stricture recurrence. COPD Management: Continue current COPD medications (if any). Assess home oxygen saturation and potential need for supplemental oxygen. Reinforce breathing techniques and energy conservation strategies. Consider pulmonary function tests (spirometry) to evaluate current lung function. Dizziness Evaluation: orthostatics were normal . vital signs were normal Follow up with neurology if dizziness persists despite addressing other issues. Medications: Refilled sennosides-docusate sodium 8.6-50 mg (Stimulant Laxative Plus) 1 TAB PO DAILY 30 tabs 0RF ]
--- NOTE | 2025-07-11 11:15 | FLU_PTH ---
PATIENT: DEZ GRANDE LOC: EN U#:[id number] AGE/SX: 70/F ROOM: RE07/11/[address]: Dr. Connor Tadeo DO : 1955 BED: DIS: 07/11/2025 SPEC #: [id number] RECD: 07/11/25 12:16 STATUS: REI REEldon #: [id number] BANDAR: 07/11/25 11:[address]: Connor Tadeo DEPT: CYTOLOGY RECD BY: Alessandra Boyce ENTERED: 07/11/25 13:58 SP TYPE: Fluid OTHR DR: Dr. Alton Mallory DO Tissues: Bile duct, NOS Procedures: Special Stain Group II Surgery Specimen Level IV Cytospin Fluid HEADER OPERATION: ERCP with stent removal, balloon sweep PRE-OP DIAGNOSIS: Encounter for removal of biliary stent TISSUE SUBMITTED: A- Pancreatic stent for cytology DIAGNOSIS CYTOLOGY A. Pancreatic stent, ERCP (cytospin, cellblock): - No malignant cells identified. - Scant cellularity, slight acute inflammation. CYTOLOGY STUDY Slides are reviewed. CYTOLOGY GROSS A. Received is 9cm green stent with a small minute amount of white material labeled with the patient's name and and designated per the requisition as Pancreatic stent. Submitted for cytology and cell block preparation. Mr 07/11/2025 CPT: 58457,24292
--- NOTE | 2025-07-11 11:55 | RAD_ITS ---
PROCEDURE: ERCP BILIARY/PANCREAS; O.R. FLUORO FOR C-ARM 07/11/2025 REASON FOR EXAM: ERCP TECHNIQUE: Procedure Code: RADERCP; RADORFL_C_ARM Modality: DX Procedure: ERCP BILIARY/PANCREAS; O.R. FLUORO FOR C-ARM Fluoroscopy time: 11.9 seconds. Dose: 2.26 mGy. RAD/O.R. Fluoro for C-Arm IMPRESSION: Intraoperative fluoroscopy was performed for ERCP. 6 fluoroscopic images were also obtained. Reading Location: [id number]
--- NOTE | 2025-07-11 11:55 | RAD_ITS ---
PROCEDURE: ERCP BILIARY/PANCREAS; O.R. FLUORO FOR C-ARM 07/11/2025 REASON FOR EXAM: ERCP TECHNIQUE: Procedure Code: RADERCP; RADORFL_C_ARM Modality: DX Procedure: ERCP BILIARY/PANCREAS; O.R. FLUORO FOR C-ARM Fluoroscopy time: 11.9 seconds. Dose: 2.26 mGy. RAD/ERCP Biliary/Pancreas IMPRESSION: Intraoperative fluoroscopy was performed for ERCP. 6 fluoroscopic images were also obtained. Reading Location: [id number]
--- NOTE | 2025-07-11 12:13 | OP.ERCP_ITS ---
Patient Name: Nora Galeas Procedure Date: 07/11/2025 11:37 AM Date of : 1955 Age: 70 Procedure: ERCP Indications: Pancreatic stent removal Providers: Connor Tadeo DO Referring MD: Alton Mallory Medicines: Monitored Anesthesia Care Patient Profile: This is a 70 year old female. Refer to note in patient chart for documentation of history and physical. Her most recent ERCP for stent was within the past three months. Complications: No immediate complications. Procedure: Pre-Anesthesia Assessment: - Prior to the procedure, a History and Physical was performed, and patient medications and allergies were reviewed. The patient is competent. The risks and benefits of the procedure and the sedation options and risks were discussed with the patient. All questions were answered and informed consent was obtained. Patient identification and proposed procedure were verified by the physician in the pre-procedure area. Mental Status Examination: alert and oriented. Airway Examination: normal oropharyngeal airway and neck mobility. Respiratory Examination: clear to auscultation. CV Examination: normal. Prophylactic Antibiotics: The patient does not require prophylactic antibiotics. Prior Anticoagulants: The patient has taken no anticoagulant or antiplatelet agents except for NSAID medication. ASA Grade Assessment: II - A patient with mild systemic disease. After reviewing the risks and benefits, the patient was deemed in satisfactory condition to undergo the procedure. The anesthesia plan was to use monitored anesthesia care (MAC). Immediately prior to administration of medications, the patient was re-assessed for adequacy to receive sedatives. The heart rate, respiratory rate, oxygen saturations, blood pressure, adequacy of pulmonary ventilation, and response to care were monitored throughout the procedure. The physical status of the patient was re-assessed after the procedure. After obtaining informed consent, the scope was passed under direct vision. Throughout the procedure, the patient's blood pressure, pulse, and oxygen saturations were monitored continuously. The Duodenoscope was introduced through the mouth, and advanced to the duodenum and used to inject contrast into the bile duct. The ERCP was accomplished without difficulty. The patient tolerated the procedure well. Scope In: 11:54:58 AM Scope Out: 12:04:01 PM Total Procedure Duration Time 0 hours 9 minutes 3 seconds Findings: The senior sql developer film was normal. The esophagus was successfully intubated under direct vision. The scope was advanced to a normal major papilla in the descending duodenum without detailed examination of the pharynx, larynx and associated structures, and upper GI tract. The upper GI tract was grossly normal. The bile duct was deeply cannulated with the short-nosed traction sphincterotome. Contrast was injected. I personally interpreted the bile duct images. There was brisk flow of contrast through the ducts. Image quality was adequate. Contrast extended to the entire biliary tree. Opacification of the entire opacified area and entire biliary tree was successful. The maximum diameter of the ducts was 10 mm. The lower third of the main bile duct contained one stone, which was 6 mm in diameter. The main bile duct was diffusely dilated, acquired. The largest diameter was 5 mm. The lower third of the main bile duct contained a single localized stenosis 6 mm in length. A long 0.025 inch Jagwire was passed into the biliary tree. A 5 mm biliary sphincterotomy was made with a traction (standard) sphincterotome using ERBE electrocautery. There was no post-sphincterotomy bleeding. The biliary tree was swept with a 12 mm balloon starting at the upper third of the main bile duct, middle third of the main bile duct, lower third of the main duct, bifurcation, left intrahepatic duct(s) and right intrahepatic duct(s). Sludge was swept from the duct. All stones were removed. One stent was removed from the pancreatic duct using a snare and sent for cytology. The stent was found to be partially occluded via the water column test. Impression: - A single localized biliary stricture was found in the lower third of the main bile duct. The stricture was benign appearing. - The entire main bile duct was dilated, acquired. - Choledocholithiasis was found. Complete removal was accomplished by biliary sphincterotomy and balloon extraction. - A biliary sphincterotomy was performed. - The biliary tree was swept. - One stent was removed from the pancreatic duct. Procedure Code(s): --- Professional --- 57142, Endoscopic retrograde cholangiopancreatography (ERCP); with removal of foreign body(s) or stent(s) from biliary/pancreatic duct(s) 75667, Endoscopic retrograde cholangiopancreatography (ERCP); with removal of calculi/debris from biliary/pancreatic duct(s) 86589, Endoscopic retrograde cholangiopancreatography (ERCP); with sphincterotomy/papillotomy 24037, 26, Endoscopic catheterization of the biliary ductal system, radiological supervision and interpretation CPT copyright 2021 [employer]. All rights reserved. The codes documented in this report are preliminary and upon rail grinder review may be revised to meet current compliance requirements. Connor Tadeo DO 07/11/2025 12:13:16 PM This report has been signed electronically. Number of Addenda: 0 Note Initiated On: 07/11/2025 11:37 AM
--- NOTE | 2025-07-11 12:13 | OP.PROVAT_ITS ---
07/11/2025 Alton Mallory [address] [facility] [place] [address] [place] [address] Re : ERCP procedure for Nora Adal Dear Dr. Mallory This procedure was performed on Friday, July 11, 2025. My impressions and recommendations are as follows: Impressions : - A single localized biliary stricture was found in the lower third of the main bile duct. The stricture was benign appearing. - The entire main bile duct was dilated, acquired. - Choledocholithiasis was found. Complete removal was accomplished by biliary sphincterotomy and balloon extraction. - A biliary sphincterotomy was performed. - The biliary tree was swept. - One stent was removed from the pancreatic duct. Recommendations : My findings are described in the full procedure note, which is enclosed. If I can be of further assistance, please feel free to contact me at . Sincerely, Connor Tadeo, 07/11/2025 12:13:16 PM This report has been signed electronically.
--- NOTE | 2025-07-11 12:21 | PCM.POST.ANE ---
Anesthesia: Postop Eval I Current Vital Signs Temperature: 97 F Pulse Rate: 71 Blood Pressure: 97/69 Respiratory Rate: 14 Pulse Ox: 92 Oxygen Delivery Method: Room Air Assessment Airway patent: Yes Spontaneous unlabored respirations: Yes Mental status: Asleep nausea: No Vomiting: No Anesthesia Complication: No Fluid Hydration Crystalloid volume administer (ml): 600 Total IV fluid infused: 600 Progress Note Anesthesia document: Postop Eval 1 completed: Yes
--- NOTE | 2025-07-11 16:37 | PCM.POSTANE2 ---
Anesthesia Postop Eval I Sum Postop Eval Completion status Anesthesia document: Postop Eval 1 completed: Yes Anesthesia Postop Eval I Summary Anesthesia Postop Eval I Summary: Anesthesia Postop Eval I: Assessment Summary Airway patent Yes 07/11/25 12:21 [email or web address] Spontaneous unlabored Yes 07/11/25 12:21 [email or web address] respirations Mental status Asleep 07/11/25 12:21 [email or web address] nausea No 07/11/25 12:21 [email or web address] Vomiting No 07/11/25 12:21 [email or web address] Anesthesia Postop Eval I: Fluid Summary Crystalloid volume administer 600 07/11/25 12:21 [email or web address] (ml) Colloids volume administered ( ml) Blood Product volume administered (ml) Total IV fluid infused 600 07/11/25 12:21 [email or web address] Anesthesia Postop Eval I: Summary Notes Anesthesia Complication No 07/11/25 12:21 [email or web address] Anesthesia Complication Comment: Post-operative progress note Anesthesia: Postop Eval II Evaluation Mental status: Awake Pain Level: 0 nausea: No Vomiting: No Complications Anesthesia Complication: No
== END 2025-07-11 13:25 | disposition home or self-care (01) ==
LOC: EN 09:57 → AC 10:17
PROVIDERS: PCP Family Medicine; Referring Provider Family Medicine; Visit Provider Internal Medicine Gastroenterology
PROC: (CPT 43260; principal; 2025-07-11 10:55)
DX: Z46.59 Encounter for fitting and adjustment of other gastrointestinal appliance and device (principal); I11.0 Hypertensive heart disease with heart failure; I50.9 Heart failure, unspecified; J44.9 Chronic obstructive pulmonary disease, unspecified; F17.290 Nicotine dependence, other tobacco product, uncomplicated; K80.51 Calculus of bile duct without cholangitis or cholecystitis with obstruction
CPT/HCPCS: 43262; 43275; 43264; 00732; 74330; 76000; 88108; 88305; 88313; 94640; J2405